=== PATIENT | female | born 1985 | race Caucasian/White ===

== ENCOUNTER 2023-10-01 14:41 | Emergency (ER) | payer MEDICARE, SELFPAY ==
--- NOTE | ~2023-10-01 | CT_ITS ---
EXAMINATION: CT lumbar spine wo con DATE: 10/01/2023 17:28 INDICATION: lumbar pain . TECHNIQUE: Computed tomography (CT) of the lumbar spine was performed without intravenous contrast. A utomated exposure control and iterative reconstruction technique were employed. The dose-length produ ct was 1226.01 mGy-cm. COMPARISON: None. FINDINGS: Mild lumbar scoliosis. 5 nonrib-bearing lumbar-type vertebral bodies. Pedicles intact. Norm al vertebral body alignment. Vertebral body heights preserved. Mild disc space narrowing at L3-4. Mod erate disc space narrowing with a diffuse disc bulge and broad-based central 6 mm protrusion at L4-5. Moderate disc space narrowing at L5-S1 with a moderate diffuse bulge. Unfused posterior L5 arch. Mil d lower lumbar facet hypertrophy. Status post cholecystectomy. Mild atherosclerotic calcifications. P unctate nonobstructing left inferior pole calcification. Incidental note of mild anterior wedge defor mity at T11 and T12. IMPRESSION: Mild anterior wedge deformity at T11 and T12, presumably chronic/physiologic, unless accompanied by a cute pain/tenderness. Multilevel moderate degenerative disc disease. Multilevel mild facet arthropathy. No severe central canal or neural foraminal narrowing. Reviewed, dictated and finalized at location K. GE MASTER COORDINATOR IMPRESSION: Mild anterior wedge deformity at T11 and T12, presumably chronic/physiologic, u nless accompanied by acute pain/tenderness. Multilevel moderate degenerative disc disease. Multilevel mild facet arthropathy. No severe central canal or neural foraminal narrowing.
[2023-10-01 14:43] VITALS: BP 149/83; PULSE 94; RESP 18; TEMP 36.1; O2SAT 100
--- NOTE | 2023-10-01 16:11 | ED.GENADULT ---
HPI - General Adult General Chief complaint: Back Pain/Injury <Dari Dickson December, GARNETT FEEDER - Last Filed: 10/01/23 16:18> Stated complaint: back problems- lose control bladder <Dari Dickson December, GARNETT FEEDER - Last Filed: 10/01/23 16:18> Time Seen by Provider: 10/01/23 16:12 <Dari Dickson December, GARNETT FEEDER - Last Filed: 10/01/23 16:18> Focused HPI: Vera Vitale is a 38 y/o female with PMHx of 5 herniated discs to the lumbar spine, she states that for several weeks she states that her right leg will go numb/ or to asleep while sitting and laying and she will have to drag her leg to ambulate and then it will slowly return to function. She reports that last night she had two episodes of feeling a rubber band rupture in her lower back with burning increased pain and she also felt like she urinated on her self last night. She reports her lower back pain has been getting worse since last night. GENERAL: Well-appearing, well-nourished, and in no acute distress. HEAD: Normocephalic, atraumatic. CHEST: Clear to auscultation. ?No respiratory distress. HEART: Regular rate and rhythm.? NEURO: ?Alert and oriented x3. Patient screened in triage and initial orders placed.? ?Additional care and disposition to be based upon?diagnostic testing and treatment. <Dari Dickson December, GARNETT FEEDER - Last Filed: 10/01/23 16:18> History of Present Illness HPI narrative: 38-year-old female with chronic back pain and known herniated disc in her lumbar spine reports for evaluation for acute on chronic lower back pain. She has been treating her chronic pain with tramadol and Flexeril. States she ran of her tramadol and has only been taking Flexeril and Tylenol with some improvement. States last night, she felt a ?popping rubber band? sensation in her low back. States she woke up this morning with soaked underwear and is concerned that she had urinary incontinence. She states her low pain starts in her low back and radiates down her right thigh and wraps medially into her lower leg into the bottom of her foot. She denies recent procedures on her low back, IV drug use, fever, dysuria or hematuria. States she has urinated today without issues. Denies bowel incontinence or saddle anesthesia. <Juanita Austin PA-C - Last Filed: 10/01/23 21:04> Related Data Allergies/adverse reactions: Allergies Allergy/AdvReac Type Severity Reaction Status Date / Time No Known Allergies Allergy Verified 10/01/23 19:07 <Dari Eugene APRN - Last Filed: 10/01/23 16:18> Review of Systems Review of Systems: CONSTITUTIONAL: Denies fever, chills, or sweats. EYES: Denies visual changes, redness, or discharge. ENT: Denies rhinorrhea, congestion, sore throat, or otalgia. CARDIOVASCULAR: Denies chest pain, palpitations, or edema. RESPIRATORY: Denies cough or dyspnea. GASTROINTESTINAL: Denies abdominal pain, nausea, vomiting, or diarrhea. GENITOURINARY: Denies dysuria or hematuria. SKIN: Denies rash or itching. MUSCULOSKELETAL: See HPI NEUROLOGIC: Denies headache, numbness, or weakness. PSYCHIATRIC: Denies anxiety or depression. <Juanita Austin PA-C - Last Filed: 10/01/23 21:04> Exam Narrative: GENERAL: Well-appearing, well-nourished, and in no acute distress. HEAD: Normocephalic, atraumatic. EYES: PERRLA and EOMI. ENT: Nares clear, no rhinorrhea or epistaxis. Mucous membranes moist. NECK: Supple. CHEST: Clear to auscultation. No respiratory distress. HEART: Regular rate and rhythm. No murmur heard. Normal peripheral pulses. ABDOMEN: Soft, nontender, nondistended, normal active bowel sounds. Rectal tone intact. BACK: Midline lumbar spinous tenderness and right paraspinous lumbar tenderness. No overlying skin changes, step-offs or deformities, edema or erythema. No tenderness to glute. No saddle anesthesia. Sensation intact throughout both legs. Positive right seated straight leg sign. Hip flexion, knee extension and flexion, dorsiflexion and plantar flexion, EHL strength bilateral
[2023-10-01 16:57] LABS: Basophils Percent Auto 0.5 % (0.2-1.2); Eosinophils Absolute Auto 0.1 K/mm3 (0-0.3); Hematocrit 41.8 % (37.0-47.0); Hemoglobin 13.2 g/dL (12.0-15.0); Immature Granulocyte Absolute 0.02 K/mm3 (0.00-0.031); Immature Granulocyte Percent A 0.3 % (0-0.5); Mean Corpuscular HGB Conc 31.6 g/dl (32-36); Mean Corpuscular Hemoglobin 23.5 pg (26-34); Mean Corpuscular Volume 74.5 fl (80-100); Mean Platelet Volume 9.1 fl (7.4-10.4); Monocytes Absolute Auto 0.4 K/mm3 (0.1-0.6); Monocytes Percent Auto 5.3 % (2.6-8.5); Neutrophils Absolute Auto 4.7 K/mm3 (1.3-6.7); Neutrophils Percent Auto 58.9 % (45.5-73.1); Platelet Count Result 360 k/mm3 (150-375); Red Blood Count 5.61 M/mm3 (4.2-5.4); Red Cell Distribution Width 17.2 % (11.5-14.5); White Blood Count 7.9 K/mm3 (4.5-10.0)
[2023-10-01 17:12] LABS: Alanine Aminotransferase 57 U/L (6-35); Albumin Level 4.6 g/dL (3.5-5.1); Alkaline Phosphatase 87 U/L (38-126); Anion Gap 6 mmol/L (8-16); Aspartate Amino Transferase 58 U/L (14-36); Bilirubin,Total 0.5 mg/dL (0.2-1.3); Blood Urea Nitrogen 13 mg/dL (7-17); CRP < 0.5 mg/dL (<1.0); Calcium 10.2 mg/dL (8.4-10.2); Carbon Dioxide 28 mmol/L (22-30); Chloride 106 mmol/L (98-107); Estimated CRCL calculation 111 ml/min; Estimated Glomerular Filt Rate > 60; Glucose 88 mg/dL (65-110); Potassium 3.8 mmol/L (3.4-5.0); Sodium 140 mmol/L (137-145)
[2023-10-01 17:13] LABS: Appearance Urine Clear (Clear); Bilirubin Urine Negative (Negative); Blood Urine Negative (Negative); Color Urine Yellow (Yellow); Glucose Urine UA Negative (Negative); Ketones Urine Negative (Negative); Leukocyte Esterase Ur Negative LEU/UL (Negative); Nitrate Urine Negative (Negative); Protein Urine Negative (Negative); Specific Grav Ur 1.016 (1.001-1.035); Urobilinogen Urine 0.2 mg/dL (<2.0)
[2023-10-01 17:19] LABS: Add Urine Microscopic? NO
[2023-10-01 17:21] LABS: Lactic Acid Reflex 0.6 mmol/L (0.7-2.0)
[2023-10-01 17:23] LABS: Anisocytosis 2+ (NORMAL); Microcytosis 1+ (NORMAL); Platelet Estimate Adequate (Adequate); Schistocytes None Seen (NORMAL)
[2023-10-01 17:24] LABS: Hypochromasia 1+ (NORMAL)
[2023-10-01] MEDS: HYDROcodone/acetaminophen (*CRX) 5-325 MG TABLET 1 TAB PO (18:55)
[2023-10-01] MEDS: CYCLOBENZAPRINE HCL 10 MG TABLET PO (18:55)
[2023-10-01] MEDS: dexAMETHasone SOD PHOS INJ 10 MG/ML 1 ML VIAL IM (18:56)
[2023-10-01 19:05] VITALS: BP 150/91; PULSE 80; RESP 18; O2SAT 98
--- NOTE | 2023-10-01 19:41 | PC.NURSE ---
LORRIE Grant VORB 30mg toradol IVP instead of IM.
[2023-10-01] MEDS: KETOROLAC 30 MG/ML VIAL (*BKC) IV PUSH (19:42)
[2023-10-01 20:37] VITALS: BP 148/81; PULSE 81; RESP 18; O2SAT 98
== END 2023-10-01 20:39 | disposition home or self-care (01) ==
PROVIDERS: Emergency Medicine; Nurse Practitioner Family; Emergency Provider Physician Assistant
DX: M54.16 Radiculopathy, lumbar region (principal); R74.01 Elevation of levels of liver transaminase levels
CPT/HCPCS: 36415; 72131; 80053; 81003; 81025; 83605; 85025; 86140; 96372; 96374; 99284; A9270; J1100; J1885

== ENCOUNTER 2023-10-12 06:59 | Outpatient (CLI) | payer MEDICARE, SELFPAY ==
--- NOTE | ~2023-10-12 | MR_ITS ---
MRI of the lumbar spine Clinical History: Injury Technique: Axial T2-weighted images, and sagittal T1-weighted, T2-weighted, and T2 fat-sat images wer e acquired. Findings: There is no fracture or subluxation of the lumbar spine. Vertebral bodies maintain normal h eight and alignment. No suspicious bone marrow signal abnormality seen. At L1-L2, there is no disc bulge or herniation. No spinal canal stenosis or neural foraminal narrowin g. At L2-L3, there is no disc bulge or herniation. There is minimal facet joint hypertrophy. No spinal c anal stenosis or neural foraminal narrowing. At L3-L4, there is mild disc bulge with mild facet arthropathy. No central canal stenosis or neural f oraminal narrowing. At L4-L5, there is disc bulge and minimal facet arthropathy. No central canal stenosis. There is mode rate right neural foraminal narrowing. Left neural foramen preserved. At L5-S1, there is disc bulge with small annular fissure. No spinal canal stenosis. There is mild to moderate bilateral neural foraminal narrowing. Paravertebral soft tissues are unremarkable. Impression: Mild degenerative spondylosis of the lower lumbar spine, as detailed above. Reviewed, dictated and finalized at location . ET SPECIALIST Impression: Mild degenerative spondylosis of the lower lumbar spine, as detailed above.
--- NOTE | ~2023-10-12 | XR_ITS ---
EXAMINATION: XR lumbar spine min 4V DATE: 10/12/2023 07:27 INDICATION: Unspecified injury of unspecified level of lumbar spine. TECHNIQUE: 5 views of lumbar spine including standing views and flexion and extension views were obta ined. COMPARISON: Lumbar spine MRI 10/12/2023 FINDINGS: There is 11 degrees levoscoliosis of thoracolumbar spine. The spine is hypomobile with flex ion and extension. There is mild chronic anterior wedging of T11-L1 vertebral bodies. There is mildly decreased disc height at L4-L5 and L5-S1. There is multilevel facet joint osteoarthritis, moderate i n lower lumbar spine. IMPRESSION: 1. Mild lumbar spondylosis. 2. Thoracolumbar dextroscoliosis. Reviewed, dictated and finalized at location A. OR CLINICAL DATA COORDINATOR
== END 2023-10-12 07:00 ==
PROVIDERS: PCP Neurological Surgery; Visit Provider Neurological Surgery
DX: S34.109A Unspecified injury to unspecified level of lumbar spinal cord, initial encounter (principal); X58.XXXA Exposure to other specified factors, initial encounter; M47.896 Other spondylosis, lumbar region
CPT/HCPCS: 72110; 72148

== ENCOUNTER 2023-11-08 08:24 | Outpatient (CLI) | payer MEDICARE, SELFPAY ==
--- NOTE | 2023-11-08 09:13 | ECHO_ITS ---
Patient Info Name: Vera Vitale Age: 38 years : 1985 Gender: Female Ht: 66 in Wt: 225 lbs BSA: 2.22 m2 HR: 80 bpm BP: 162 / 111 mmHg Heart Rhythm: Sinus Rhythm Technical Quality: Good Exam Date: 11/08/2023 9:16 AM Exam Location: Echo Lab Patient Status: Outpatient Admit Date: 11/08/2023 Staff Ordering Physician: Ira Metz NP Sweeping Compound Blender: Aim Diana RDCS Attending Provider: Ira Metz NP Exam Type: CA echo doppler color flow Study Info Indications R01.1 - Cardiac murmur, unspecified Complete two-dimensional, color flow and Doppler transthoracic echocardiogram is performed. Summary 1. Complete two-dimensional, color flow and Doppler transthoracic echocardiogram is performed. 2. Left ventricular chamber dimension is normal. 3. Left ventricular systolic function is normal, estimated at 65-70%. 4. The left ventricular diastolic function is normal. 5. Right ventricular systolic function is normal. 6. No significant valvular disease. Left Ventricle Left ventricular chamber dimension is normal. Left ventricular systolic function is normal, estimated at 65-70%. There is no increased left ventricular wall thickness. The left ventricular diastolic function is normal. Right Ventricle Right ventricular chamber dimension is normal. Right ventricular systolic function is normal. Left Atria Left atrial chamber dimension is normal. Right Atria Right atrial chamber dimension is normal. Atrial Septum Intact interatrial septum visualized by color flow imaging. Aortic Valve The aortic valve is probable trileaflet. There is no aortic valve stenosis. There is no aortic valve regurgitation. There is mild aortic valve calcification. Pulmonic Valve The pulmonic valve is not well visualized. Mitral Valve There is trace mitral valve regurgitation. The mitral valve annulus is mildly calcified. Tricuspid Valve There is trace tricuspid valve regurgitation. Pericardium/Pleural There is no pericardial effusion. Inferior Vena Cava Normal inferior vena cava with >50% collapse upon inspiration consistent with normal right atrial pressure, 3 mmHg. Aorta The aortic root size at the sinus of Valsalva is normal. Left Ventricular Outflow Tract Name Value Normal LVOT 2D LVOT Diameter 1.9 cm LVOT Doppler LVOT Peak Gradient 7 mmHg LVOT Mean Gradient 3 mmHg LVOT VTI 22 cm LVOT VTI/AV VTI Ratio 0.6 LVOT Stroke Volume 63 ml LVOT CO 4.3 l/min LVOT CI 1.9 l/min/m2 Pulmonic Valve Name Value Normal RVOT Doppler RVOT Peak Gradient 3 mmHg PV Doppler PV Peak Gradient 5 mmHg Mitral Valve
--- NOTE | 2023-11-08 09:16 | ECG_ITS ---
Measurements Intervals [place] Rate: 73 P: 48 OR: 148 QRS: 51 QRSD: 86 T: 42 QT: 381 QTc: 422 Interpretive Statements SINUS RHYTHM NORMAL ECG NO PREVIOUS ECG AVAILABLE FOR COMPARISON Electronically Signed On 11-08-2023 10:12:08 CDT by Beny Cope D.O.
== END 2023-11-08 08:25 | disposition home or self-care (01) ==
LOC: ANHCARD 08:29
PROVIDERS: PCP Nurse Practitioner Family; Visit Provider Nurse Practitioner Family
DX: R01.1 Cardiac murmur, unspecified (principal); R07.9 Chest pain, unspecified
CPT/HCPCS: 93005; 93306

== ENCOUNTER 2023-11-14 07:42 | Outpatient (CLI) | payer MEDICARE, SELFPAY ==
--- NOTE | ~2023-11-14 | US_ITS ---
US right upper quadrant DATE: 11/14/2023 08:32 INDICATION: Right upper quadrant abdominal pain. Elevated liver function tests. TECHNIQUE: Real-time imaging of right upper quadrant COMPARISON: None FINDINGS: The gallbladder is been surgically removed. No hepatic or pancreatic space-occupying mass lesion. Normal hepatopedal portal venous flow direction . The common bile duct measures 4 mm, normal. IMPRESSION: Status post cholecystectomy; otherwise unremarkable examination Reviewed, dictated and finalized at Location A. Reviewed, dictated and finalized at location B.
== END 2023-11-14 07:43 ==
LOC: MICIMG 07:43
PROVIDERS: PCP Nurse Practitioner Family; Visit Provider Nurse Practitioner Family
DX: R74.01 Elevation of levels of liver transaminase levels (principal); Z90.49 Acquired absence of other specified parts of digestive tract
CPT/HCPCS: 76705

== ENCOUNTER 2023-12-04 11:17 | Outpatient (CLI) | payer MEDICARE, SELFPAY ==
[2023-12-04 11:38] LABS: Basophils Percent Auto 0.6 % (0.2-1.2); Eosinophils Absolute Auto 0.1 K/mm3 (0-0.3); Eosinophils Percent Auto 1.4 % (0-4.4); Hematocrit 43.5 % (37.0-47.0); Hemoglobin 13.9 g/dL (12.0-15.0); Immature Granulocyte Absolute 0.02 K/mm3 (0.00-0.031); Immature Granulocyte Percent A 0.3 % (0-0.5); Lymphocytes Absolute Auto 2.31 K/mm3 (0.9-3.2); Mean Corpuscular Hemoglobin 24.2 pg (26-34); Mean Corpuscular Volume 75.8 fl (80-100); Mean Platelet Volume 8.6 fl (7.4-10.4); Monocytes Absolute Auto 0.4 K/mm3 (0.1-0.6); Monocytes Percent Auto 5.6 % (2.6-8.5); Neutrophils Absolute Auto 3.8 K/mm3 (1.3-6.7); Neutrophils Percent Auto 57.1 % (45.5-73.1); Platelet Count Result 344 k/mm3 (150-375); Red Blood Count 5.74 M/mm3 (4.2-5.4); Red Cell Distribution Width 15.9 % (11.5-14.5); White Blood Count 6.6 K/mm3 (4.5-10.0)
[2023-12-04 17:03] LABS: Alanine Aminotransferase 38 U/L (6-35); Albumin Level 4.9 g/dL (3.5-5.1); Alkaline Phosphatase 109 U/L (38-126); Anion Gap 10 mmol/L (4-12); Aspartate Amino Transferase 41 U/L (14-36); Bilirubin,Total 0.5 mg/dL (0.2-1.3); Blood Urea Nitrogen 10 mg/dL (7-17); CRP < 0.5 mg/dL (<1.0); Calcium 9.8 mg/dL (8.4-10.2); Carbon Dioxide 24 mmol/L (22-30); Chloride 106 mmol/L (98-107); Estimated Glomerular Filt Rate > 60; Glucose 89 mg/dL (65-110); Lactate Dehydrogenase 174 U/L (120-246); Potassium 3.7 mmol/L (3.4-5.0); Sodium 140 mmol/L (137-145)
[2023-12-04 17:29] LABS: Ferritin 5.73 ng/mL (6.24-137)
[2023-12-04 18:11] LABS: Folic Acid 4.6 ng/mL (2.76->20)
[2023-12-08 14:34] LABS: Soluble Transferrin Receptor 2.63 mg/L (0.76-1.76)
== END 2023-12-04 11:18 | disposition home or self-care (01) ==
LOC: ANHLAB 11:22
PROVIDERS: PCP Nurse Practitioner Family; Visit Provider Internal Medicine Hematology & Oncology
DX: E61.1 Iron deficiency (principal); C82.90 Follicular lymphoma, unspecified, unspecified site
CPT/HCPCS: 36415; 80053; 82607; 82728; 82746; 83615; 84238; 85025; 86140; 88184; 88185

== ENCOUNTER 2023-12-06 08:13 | Outpatient (CLI) | payer MEDICARE, SELFPAY ==
--- NOTE | ~2023-12-06 | CT_ITS ---
Pre and postcontrast Head CT History: Congenital cerebral cysts, colloid cyst Technique: Axial imaging of the brain was performed prior to and following intravenous administratio n of 100 cc of Omnipaque 350 contrast material. Dose reduction technique was used on this scan by uti lizing automated exposure control and iterative reconstruction technique. The dose-length product (DL P) was 1199.14 mGy-cm. Findings: There is no evidence of intracranial hemorrhage, mass lesion, or acute infarct. Brain par enchyma appears normal. The ventricles and subarachnoid spaces are normal in size. High right fronta l craniotomy present just right of midline, with probable subjacent postoperative dural thickening. The visualized paranasal sinuses and mastoid air cells are clear. No abnormal postcontrast enhancement identified. Impression: No intracranial mass/cyst identified. High right frontal craniotomy with subjacent postoperative dural thickening. Reviewed, dictated and finalized at [facility]. Impression: No intracranial mass/cyst identified. High right frontal craniotomy with subjacent postoperative dural thickening.
== END 2023-12-06 08:14 ==
LOC: MICIMG 08:14
PROVIDERS: PCP Nurse Practitioner Family; Visit Provider Nurse Practitioner Family
DX: Q04.6 Congenital cerebral cysts (principal); Z98.890 Other specified postprocedural states
CPT/HCPCS: 70470; Q9967

== ENCOUNTER 2023-12-13 07:48 | Outpatient (CLI) | payer MEDICARE, SELFPAY ==
--- NOTE | ~2023-12-13 | PE_ITS ---
EXAMINATION: PET skull to mid thigh DATE: 12/13/2023 09:39 INDICATION: Follicular lymphoma. TECHNIQUE: Blood glucose level was 109 mg/dL. 9.9 mCi of 18-fluorodeoxyglucose (18-FDG) was administe red i.v. Low dose computed tomography (CT) images were acquired from the base of the brain to the pro ximal thighs for attenuation correction and anatomic localization. Automated exposure control was emp loyed. Dose-length product (DLP) was 1113 mGy-cm. Positron emission tomography (PET) images were acqu ired in the same distribution. COMPARISON: None FINDINGS: Head/neck: There are no pathologically enlarged lymph nodes. Chest: There is a pneumatocele in left upper lobe. No pleural effusion. The heart size is normal. No pericardial effusion. There is thymic hyperplasia in the anterior segment. Abdomen/pelvis/proximal thighs: The liver is normal. The spleen is normal in size. The pancreas, adre nal glands, and kidneys are normal. There is diverticulosis of the colon without evidence of divertic ulitis. There are no dilated loops of bowel. The appendix is not visualized. There are no pathologica lly enlarged lymph nodes. There is no free intraperitoneal fluid. There is no osseous malignancy. IMPRESSION: 1. No evidence of lymphoma. Reviewed, dictated and finalized at location E. IMPRESSION: 1. No evidence of lymphoma.
[2023-12-13 08:12] LABS: Glucose Point of Care 109 mg/dl (65-105)
== END 2023-12-13 07:49 | disposition home or self-care (01) ==
PROVIDERS: PCP Nurse Practitioner Family; Visit Provider Internal Medicine Hematology & Oncology
DX: C85.99 Non-Hodgkin lymphoma, unspecified, extranodal and solid organ sites (principal)
CPT/HCPCS: 78815; A9552

== ENCOUNTER 2023-12-30 20:26 | Emergency (ER) | payer MEDICARE, SELFPAY ==
--- NOTE | ~2023-12-30 | XR_ITS ---
EXAM: XR hand RT min 3V DATE: 12/30/2023 20:55 HISTORY: right 2nd MCP joint pain . COMPARISON: None available. FINDINGS: Normal mineralization. No fracture or dislocation. No lytic or blastic lesion. Joint space s are maintained. No erosion or periosteal change. Soft tissues within normal limits. IMPRESSION: No acute osseous finding in the right hand. Reviewed, dictated and finalized at location K.
[2023-12-30 20:27] VITALS: BP 154/82; PULSE 79; RESP 16; TEMP 36.4; O2SAT 100
[2023-12-30 20:37] VITALS: BP 165/93; PULSE 74; RESP 16; O2SAT 100
[2023-12-30 20:38] VITALS: O2SAT 100
[2023-12-30 21:07] LABS: Basophils Percent Auto 0.5 % (0.2-1.2); Eosinophils Absolute Auto 0.1 K/mm3 (0-0.3); Eosinophils Percent Auto 1.6 % (0-4.4); Hematocrit 38.7 % (37.0-47.0); Hemoglobin 12.4 g/dL (12.0-15.0); Immature Granulocyte Absolute 0.02 K/mm3 (0.00-0.031); Immature Granulocyte Percent A 0.2 % (0-0.5); Lymphocytes Absolute Auto 3.19 K/mm3 (0.9-3.2); Mean Corpuscular Hemoglobin 23.8 pg (26-34); Mean Corpuscular Volume 74.3 fl (80-100); Mean Platelet Volume 8.7 fl (7.4-10.4); Monocytes Absolute Auto 0.6 K/mm3 (0.1-0.6); Monocytes Percent Auto 7.2 % (2.6-8.5); Neutrophils Absolute Auto 4.6 K/mm3 (1.3-6.7); Neutrophils Percent Auto 53.5 % (45.5-73.1); Platelet Count Result 341 k/mm3 (150-375); Red Blood Count 5.21 M/mm3 (4.2-5.4); Red Cell Distribution Width 16.2 % (11.5-14.5); White Blood Count 8.6 K/mm3 (4.5-10.0)
--- NOTE | 2023-12-30 21:12 | ED.RECABL ---
HPI - Recheck/Abnormal Lab/Rx General Chief Complaint: Recheck/Abnormal Lab/Rx Stated Complaint: blood clot in hand Time Seen by Provider: 12/30/23 20:41 Source: patient Mode of arrival: ambulatory Limitations: no limitations History of Present Illness HPI narrative: This is a 38-year-old female that presents to the emergency department for right hand pain. Ongoing since yesterday. No known injury or trauma. Reports an aching pain to the right 2nd MCP joint. Noted a bruise in the area and does not remember any injuries. Reports history of elevated red blood cells. She was concerned she may have a blood clot in her arm which prompted her to be seen. Denies fever, erythema or edema. Related Data Home Medications Medication Instructions Recorded Confirmed ferrous sulfate 325 mg (65 mg 325 mg PO BID 10/30/23 10/30/23 iron) tablet ondansetron HCl 4 mg tablet 4 mg PO DAILY PRN 10/30/23 10/30/23 gabapentin 300 mg capsule 300 mg PO QHS 11/15/23 promethazine 25 mg tablet mg 12/30/23 Allergies Allergy/AdvReac Type Severity Reaction Status Date / Time No Known Allergies Allergy Verified 12/30/23 20:29 Review of Systems Review of Systems: CONSTITUTIONAL: Denies fever MUSCULOSKELETAL: Reports joint pain, and myalgia. NEUROLOGIC: Denies numbness, or weakness. All systems reviewed & are unremarkable except as noted in HPI and below PMFSH Past Medical History Medical History (Updated 12/30/23 @ 22:30 by Ana Crockett PA-C) Abnormal positron emission tomography (PET) scan Abnormal stools Allergies Anemia Arthritis Colloid cyst of third ventricle hx of Elevated liver enzymes Encounter to establish care Headache Low back pain Murmur Osteoporosis RUQ pain Spina bifida occulta Surgical History Surgical History History of craniotomy Family History Family History Father Diabetes mellitus Hypertension Heart disease Thyroid disorder Mother Hypertension Grandparent Diabetes mellitus Leukemia Grandparent Heart disease Malignant neoplasm of prostate Social History Social History Smoking packs per day: 1 Smoking cigarettes per day: 20.0 Smoking status: Current every day smoker Tobacco type: cigarettes Alcohol intake: current Drinks per week: 1 Alcohol use details: 1 cocktail per week, occasionally Substance use: never Substance use type: does not use Do You Feel Safe in your Home?: Yes Lack of Transportation: No Lack of Food: Never True Current Housing: I Have Housing Concerned About Future Housing: No Difficulty Paying Gas/Electric Bills: No Difficulty Paying for Meds: No Currently Unemployed: No Education: High School Diploma/GED Difficulty w/ Childcare or Family Care: No Exam Narrative: GENERAL: Well-appearing, well-nourished, and in no acute distress. HEAD: Normocephalic, atraumatic. EYES: EOMI. EXTREMITIES: Normal range of motion. No edema or erythema. Normal radial pulse. Normal sensation SKIN: Warm, dry, no rash. NEURO: No focal deficits. Alert and oriented x3. PSYCH: Normal mood and affect Course Course Emergency Course: Patient updated on her workup and agrees with plan of care Vital Signs Vital signs: Vital Signs Temperature 97.6 F 12/30/23 20:27 Pulse Rate 79 12/30/23 20:27 Respiratory Rate 16 12/30/23 20:27 Blood Pressure 154/82 H 12/30/23 20:27 Pulse Oximetry 100 12/30/23 20:27 Oxygen Delivery Room Air 12/30/23 20:27 Temperature 97.6 F 12/30/23 20:27 Pulse Rate 74 12/30/23 20:37 Respiratory Rate 16 12/30/23 20:37 Blood Pressure 165/93 H 12/30/23 20:37 Pulse Oximetry 100 12/30/23 20:38 Oxygen Delivery Room Air 12/30/23 20:27 MDM - Recheck/Abnormal Lab/Rx MDM Narrative [facility]
[2023-12-30 21:15] LABS: Ovalocytes 1+; Platelet Estimate Adequate (Adequate); Schistocytes None Seen
[2023-12-30 21:16] LABS: Anion Gap 7 mmol/L (4-12); Blood Urea Nitrogen 12 mg/dL (7-17); Calcium 9.1 mg/dL (8.4-10.2); Carbon Dioxide 27 mmol/L (22-30); Chloride 105 mmol/L (98-107); Estimated CRCL calculation 90 ml/min; Estimated Glomerular Filt Rate > 60; Glucose 98 mg/dL (65-110); Potassium 3.6 mmol/L (3.4-5.0); Sodium 139 mmol/L (137-145)
[2023-12-30 21:18] LABS: D Dimer 0.59 ug/mL (<0.48)
== END 2023-12-30 23:02 | disposition home or self-care (01) ==
PROVIDERS: Emergency Provider Physician Assistant
DX: M79.641 Pain in right hand (principal); F17.210 Nicotine dependence, cigarettes, uncomplicated; D64.9 Anemia, unspecified; M19.90 Unspecified osteoarthritis, unspecified site
CPT/HCPCS: 36415; 73130; 80048; 85025; 85380; 99283

== ENCOUNTER 2023-12-31 07:08 | Outpatient (CLI) | payer MEDICARE, SELFPAY ==
--- NOTE | ~2023-12-31 | US_ITS ---
EXAMINATION: US venous doppler UE RT DATE: 12/31/2023 07:48 INDICATION: Right upper limb pain. TECHNIQUE: Grayscale ultrasound images without and with compression and Doppler ultrasound images of the right upper extremity veins were obtained. COMPARISON: None. FINDINGS: The visualized portions of the right internal jugular vein, subclavian vein, axillary vein, brachial veins, basilic vein, cephalic vein, radial vein, and ulnar vein are patent. IMPRESSION: 1. No deep venous thrombosis. Reviewed, dictated and finalized at location A.
== END 2023-12-31 07:09 | disposition home or self-care (01) ==
PROVIDERS: Visit Provider Physician Assistant
DX: M79.621 Pain in right upper arm (principal)
CPT/HCPCS: 93971

== ENCOUNTER 2024-01-29 08:01 | Outpatient (CLI) | payer MEDICARE, SELFPAY ==
--- NOTE | ~2024-01-29 | US_ITS ---
EXAMINATION: US soft tissue head and neck DATE: 01/29/2024 08:21 INDICATION: Cervical lymphadenopathy. Right neck lumps. TECHNIQUE: Multiple grayscale and Doppler ultrasound images of the head and neck were obtained. COMPARISON: PET/CT 12/13/2023 FINDINGS: There are normal lymph nodes in the right neck and right axilla in the patient's areas of c oncern. IMPRESSION: 1. Normal lymph nodes in the right neck and right axilla in the patient's areas of concern. Reviewed, dictated and finalized at location E.
--- NOTE | ~2024-01-29 | US_ITS ---
Right axillary ultrasound (Doppler ultrasound interrogation techniques used as needed for this exam.) Ordering provider: Ubaldo Cardenas MD History: . LYMPHADENOPATHY, AXILLARY . Comparison: December 31, 2023 FINDINGS/impression: 2 lymph nodes are seen with the largest measures 1.7 x 0.8 x 1 cm. No other definite abnormal. Reviewed, dictated and finalized at location A.
== END 2024-01-29 08:02 ==
PROVIDERS: PCP Nurse Practitioner Family; Visit Provider Internal Medicine Hematology & Oncology
DX: R59.0 Localized enlarged lymph nodes (principal)
CPT/HCPCS: 76536; 76882

== ENCOUNTER 2024-02-20 08:11 | Outpatient (NON) | payer MEDICARE, SELFPAY | END 2024-02-20 08:12 | disposition home or self-care (01) | LOC: ANHLAB 02-21 08:14 | PROVIDERS: PCP Nurse Practitioner Family; Visit Provider Internal Medicine Gastroenterology | DX: D64.9 Anemia, unspecified (principal) | CPT/HCPCS: 88305 ==

== ENCOUNTER 2024-02-20 08:45 | Day surgery (SDC) | payer MEDICARE, SELFPAY ==
[2024-02-04 10:15] VITALS: BMI 36.8
--- NOTE | 2024-02-19 13:50 | WPDANESEPPF ---
Anes - Initial Pre Proc Eval Procedure: Operation Date: 02/20/24 11:30 Proposed Procedures p Esophagogastroduodenoscopy - Arturo Daniels MD s Diagnostic Colonoscopy - Arturo Daniels MD Date/Time: 02/19/24 13:50 Surgeon: Arturo Daniels MD Pre Op Diagnosis: Anemia Patient Data Age: 38 Gender: F Height: 1.68 m Weight: 104 kg Allergies Allergy/AdvReac Type Severity Reaction Status Date / Time No Known Allergies Allergy Verified 02/20/24 10:13 Home Medications Medication Instructions Recorded Confirmed Type ferrous sulfate 325 mg (65 mg 325 mg PO BID 10/30/23 02/20/24 History iron) tablet gabapentin 300 mg capsule 300 mg PO QHS 11/15/23 02/20/24 History promethazine 25 mg tablet 25 mg PO DAILY PRN Nausea 12/30/23 02/20/24 History Patient hx anesthesia problems: none Family hx anesthesia problems: none Results Review: All pre-operative results and documents have been reviewed as part of the pre-operative evaluation. [facility] Past Medical History Medical History (Updated 02/20/24 @ 11:27 by Arnel Ibrahim DO) Abnormal positron emission tomography (PET) scan Abnormal stools Allergies Anemia Arthritis Colloid cyst of third ventricle hx of Elevated liver enzymes Elevated rheumatoid factor Encounter to establish care Headache History of brain tumor Low back pain Murmur Osteoporosis RUQ pain Spina bifida occulta Tobacco abuse Surgical History Surgical History History of craniotomy Family History Family History Father Diabetes mellitus Hypertension Heart disease Thyroid disorder Mother Hypertension Grandparent Diabetes mellitus Leukemia Grandparent Heart disease Malignant neoplasm of prostate Social History Social History Smoking packs per day: 1 Smoking cigarettes per day: 20.0 Years smoked: 2.5 Smoking pack-years: 2.50 Smoking status: Current every day smoker Tobacco type: cigarettes Alcohol intake: never Substance use: never Substance use type: does not use Do You Feel Safe in your Home?: Yes Lack of Transportation: No Lack of Food: Never True Current Housing: I Have Housing Concerned About Future Housing: No Difficulty Paying Gas/Electric Bills: No Difficulty Paying for Meds: No Currently Unemployed: No Education: High School Diploma/GED Difficulty w/ Childcare or Family Care: No Spiritual care concerns: No Anes - Eval Final PreProcedure Day of Procedure 02/19/24 13:50 Patient weight: obese Heart: regular rate and rhythm Lungs: clear to auscultation Airway: Mallampati scale class III and special considerations poor dentition Neurological: alert and oriented Last oral intake: >/= 8 hours ASA classification: III Emergent: no Anesthetic plan: proceed Anesthesia type and monitoring: general GIVS and standard monitoring Results Review: All pre-operative results and documents have been reviewed as part of the pre-operative evaluation. Informed Consent: The patient's anesthetic plan and its attendant risks and benefits were discussed with the patient/family/POA. Questions were solicited and answers provided to the satisfaction of the patient/family/POA.
[2024-02-20 10:17] VITALS: BP 143/90; PULSE 68; RESP 20; TEMP 36.4; O2SAT 98; BMI 37.0
--- NOTE | 2024-02-20 10:26 | WPDHPUPDATE1 ---
History and Physical Update Update Date/Time: 02/20/24 10:26 History and Physical has been reviewed, including an updated exam of the patient. There are NO changes in the patient's condition. Risks, benefits, and alternatives have been discussed and questions answered. Patient agrees to proceed with procedure.
[2024-02-20] MEDS: LACTATED RINGERS 1,000 ML 150 ML IV CONT (10:33)
[2024-02-20 11:22] VITALS: BP 119/78; PULSE 55; RESP 16; O2SAT 100
[2024-02-20 12:02] VITALS: BP 108/59; PULSE 68; RESP 16; O2SAT 98
[2024-02-20 12:12] VITALS: BP 117/78; PULSE 68; RESP 16; O2SAT 98
--- NOTE | 2024-02-20 15:06 | WPDANESPN ---
Anes - Prog Note Post-Op Date/Time: 02/20/24 15:06 Cardiovascular status: normal Respiratory status: normal Airway patency: baseline Mental status: baseline Post-Op hydration status: normal Vital Signs: Last Vital Signs Temp 36.4 C 02/20/24 10:17 Pulse 68 02/20/24 12:12 Resp 16 02/20/24 12:12 BP 117/78 02/20/24 12:12 Pulse Ox 98 02/20/24 12:12 O2 Del Method Room Air 02/20/24 12:12 Pain Score (VAS): 0 I/O: Intake & Output 02/19/24 02/20/24 02/20/24 23:59 07:59 15:59 Intake Total 650 Balance 650 Post-procedural complaints: none Patient Feedback: Patient satisfied with anesthetic care. Other Findings: Patient vital signs back to baseline. Patient denies nausea and vomiting. Patient's pain under control. Patient OK for discharge.
== END 2024-02-20 12:35 | disposition home or self-care (01) ==
PROVIDERS: PCP Nurse Practitioner Family; Visit Provider Internal Medicine Gastroenterology
PROC: 0DJ08ZZ Inspection of Upper Intestinal Tract, Via Natural or Artificial Opening Endoscopic (ICD-10-PCS; CPT 43235; principal; 2024-02-20 11:30)
PROC: 0DJD8ZZ Inspection of Lower Intestinal Tract, Via Natural or Artificial Opening Endoscopic (ICD-10-PCS; CPT 45378; 2024-02-20 11:30)
DX: D64.9 Anemia, unspecified (principal); R10.84 Generalized abdominal pain; R10.13 Epigastric pain
CPT/HCPCS: 45378; 43239

== ENCOUNTER 2024-03-05 15:21 | Emergency (ER) | payer MEDICARE, SELFPAY ==
--- NOTE | ~2024-03-05 | XR_ITS ---
EXAMINATION: XR chest 2V Exam Date/Time: 03/05/2024 15:40 CDT HISTORY: SOB, LUQ pain Comparison: None. RESULT: Lines, tubes, and devices: None. Lungs and pleura: Clear. Cardiomediastinal silhouette: Normal. Other: No acute osseous or upper abdominal finding. IMPRESSION: No acute cardiopulmonary process. Reviewed, dictated and finalized at location K.
--- NOTE | ~2024-03-05 | XR_ITS ---
EXAM: XR abdomen/kub 1V DATE: 03/05/2024 15:57 HISTORY: LUQ pain . COMPARISON: None available. FINDINGS: Clear lung bases. Paucity of small bowel gas. Normal large bowel gas pattern. Enlarged ivan er. No abnormal abdominal calcification. Cholecystomy clips. IMPRESSION: Hepatomegaly. Paucity small bowel gas limits evaluation for ileus or obstruction. Reviewed, dictated and finalized at location K. IMPRESSION: Hepatomegaly. Paucity small bowel gas limits evaluation for ileus o r obstruction.
[2024-03-05 15:27] VITALS: BP 132/77; PULSE 67; RESP 16; TEMP 36.3; O2SAT 100
--- NOTE | 2024-03-05 15:27 | ED.URI ---
HPI - URI/Sore Throat General Chief Complaint: Shortness of Breath/Dyspnea Stated Complaint: CHEST/UPPER ABD PAIN/SOB Time Seen by Provider: 03/05/24 16:17 Source: patient and RN notes reviewed Mode of arrival: ambulatory Limitations: no limitations History of Present Illness HPI Narrative: 38-year-old female presents with concern for shortness of breath and chest pressure. She reports symptoms started on February 23 3 days after she had a colonoscopy and endoscopy. Reports she has been having issues with anemia and she was told she had an elevated D-dimer. She recently got an iron infusion. She reports symptoms are made worse with exertion, she describes conversational dyspnea. She reports symptoms are worse when she eats food, she gets full fast. She reports she feels like she ?can not get enough oxygen? MD elicited complaint: other Related Data Home Medications Medication Instructions Recorded Confirmed ferrous sulfate 325 mg (65 mg 325 mg PO BID 10/30/23 03/05/24 iron) tablet gabapentin 300 mg capsule 300 mg PO QHS 11/15/23 03/05/24 promethazine 25 mg tablet 25 mg PO DAILY PRN Nausea 12/30/23 03/05/24 Allergies Allergy/AdvReac Type Severity Reaction Status Date / Time No Known Allergies Allergy Verified 03/05/24 15:35 Review of Systems Review of Systems: CONSTITUTIONAL: Denies malaise, chills, sweats, or fever. ENT: Denies rhinorrhea, congestion, sinus pain, otalgia and sore throat. CARDIOVASCULAR: Denies chest pain, palpitations, or edema. RESPIRATORY: Denies cough. Reports dyspnea and left chest pressure. GASTROINTESTINAL: Denies abdominal pain, nausea, vomiting, diarrhea. Reports she gets full fast All systems reviewed & are unremarkable except as noted in HPI and below [facility] Past Medical History Medical History (Updated 03/05/24 @ 16:33 by Frida Herrera NP) Abnormal positron emission tomography (PET) scan Abnormal stools Allergies Anemia Arthritis Colloid cyst of third ventricle hx of Elevated liver enzymes Elevated rheumatoid factor Encounter to establish care Headache History of brain tumor Low back pain Murmur Osteoporosis RUQ pain Spina bifida occulta Tobacco abuse Surgical History Surgical History History of craniotomy Family History Family History Father Diabetes mellitus Hypertension Heart disease Thyroid disorder Mother Hypertension Grandparent Diabetes mellitus Leukemia Grandparent Heart disease Malignant neoplasm of prostate Social History Social History Smoking packs per day: 1 Smoking cigarettes per day: 20.0 Years smoked: 2.5 Smoking pack-years: 2.50 Smoking status: Current every day smoker Tobacco type: cigarettes Alcohol intake: never Substance use: never Substance use type: does not use Do You Feel Safe in your Home?: Yes Lack of Transportation: No Lack of Food: Never True Current Housing: I Have Housing Concerned About Future Housing: No Difficulty Paying Gas/Electric Bills: No Difficulty Paying for Meds: No Currently Unemployed: No Education: High School Diploma/GED Difficulty w/ Childcare or Family Care: No Spiritual care concerns: No Comments At time of signature, agree with nursing past medical, surgical, social and family history. There is no relevant family history pertinent to the presenting complaint Exam Narrative: GENERAL: Well-appearing, well-nourished, and in no acute distress. HEAD: Normocephalic EYES: PERRLA, conjunctivae clear ENT: Nares clear. Mucous membranes moist. NECK: Supple. No lymphadenopathy CHEST: Clear to auscultation, breath sounds equal. No wheezing, rhonchi, rales, or stridor. No respiratory distress, speaks in full sentences. HEART: Regular rate and rhythm. No murmur heard. SKIN: Warm,
--- NOTE | 2024-03-05 15:42 | ECG_ITS ---
Test Date: 2024-03-05 15:42:03 Measurements Intervals [place] Rate: 70 P: 48 MD: 130 QRS: 58 QRSD: 80 T: 49 QT: 367 QTc: 396 Interpretive Statements SINUS RHYTHM POSSIBLE LEFT ATRIAL ENLARGEMENT BASELINE ARTIFACT- I, II, III, AVR, AVL, AVF, V3-V5 BORDERLINE ECG No previous ECG available for comparison Electronically Signed On 03-05-2024 15:56:03 CDT by Beny Cope D.O.
== END 2024-03-05 16:30 | disposition short-term general hospital (02) ==
PROVIDERS: Emergency Provider Nurse Practitioner; PCP Nurse Practitioner Family
DX: R06.02 Shortness of breath (principal); F17.210 Nicotine dependence, cigarettes, uncomplicated; M19.90 Unspecified osteoarthritis, unspecified site; M81.0 Age-related osteoporosis without current pathological fracture; Q76.0 Spina bifida occulta
CPT/HCPCS: 71046; 74018; 93005; 99213; G0463

== ENCOUNTER 2024-03-05 16:51 | Emergency (ER) | payer MEDICARE, SELFPAY ==
--- NOTE | ~2024-03-05 | CT_ITS ---
EXAMINATION: CTA chest PE protocol DATE: 03/05/2024 21:35 INDICATION: CP and ASHISH, recent procedure. +dimer TECHNIQUE: Computed tomography angiography (CTA) of the chest was performed with 100 mL Omnipaque-350 intravenous contrast timed to evaluate the pulmonary arteries. Coronal maximum intensity projection 3D-reconstructions were created by the technologist. The dose-length product (DLP) was 635.44 mGy-cm. Automated exposure control and iterative reconstruction technique were employed. COMPARISON: X-ray chest, same date. FINDINGS: Lung parenchyma and airways: Small air cyst in the left upper lobe. Azygos lobe. Mild scattered scatt ered patchy groundglass opacities, most pronounced in the lower lobes. Pleura: Unremarkable. Thoracic inlet, axillae and chest wall: Unremarkable. Thoracic aorta: No significant dilation. No dissection. Mediastinum: Normal. Heart and pericardium: Normal. Coronary artery calcifications: Absent. Upper abdomen: No significant finding. Bones: No acute osseous finding. Pulmonary arteries: Study quality: Adequate. No pulmonary emboli detected. IMPRESSION: No CT evidence of acute pulmonary embolus. Mild mosaic attenuation, which can be seen with asthma, bronchiolitis obliterans, hypersensitivity pn eumonitis, and chronic thromboembolic disease. Reviewed, dictated and finalized at location K. IMPRESSION: No CT evidence of acute pulmonary embolus. Mild mosaic attenuation, which can be seen with asthma, bronchiolitis obliteran s, hypersensitivity pneumonitis, and chronic thromboembolic disease.
[2024-03-05 16:57] VITALS: BP 148/92; PULSE 70; RESP 20; TEMP 37; O2SAT 98
--- NOTE | 2024-03-05 17:01 | ECG_ITS ---
Test Date: 2024-03-05 17:02:13 Measurements Intervals [place] Rate: 66 P: 54 CT: 130 QRS: 56 QRSD: 77 T: 37 QT: 365 QTc: 384 Interpretive Statements SINUS RHYTHM BASELINE ARTIFACT- I, III, AVL NORMAL ECG Compared to ECG 03/05/2024 15:42:03 No significant changes Electronically Signed On 03-06-2024 06:08:43 CDT by Beny Cope D.O.
[2024-03-05 17:22] LABS: INR 0.9; Prothrombin Time 12.8 Seconds (11.1-14.7)
[2024-03-05 17:23] LABS: Partial Thromboplastin Time 32.4 Seconds (22.3-36.8)
--- NOTE | 2024-03-05 17:25 | ED.CHESTPAIN ---
HPI - Chest Pain General Chief Complaint: Chest Pain <Ana Crockett PA-C - Last Filed: 03/06/24 17:36> Stated Complaint: L chest pressure, SOB - from urgent care <Ana Crockett PA-C - Last Filed: 03/06/24 17:36> Time Seen by Provider: 03/05/24 17:25 <Ana Crockett PA-C - Last Filed: 03/06/24 17:36> Focused HPI: This is a 38-year-old female that presents to the emergency department for chest pain and shortness of breath. Reports this has been ongoing since her recent endoscopies. Sent from urgent care for further evaluation to rule out blood clots. GENERAL: Well-appearing, well-nourished, and in no acute distress. HEAD: Normocephalic, atraumatic. CHEST: Clear to auscultation. ?No respiratory distress. HEART: Regular rate and rhythm.? NEURO: ?Alert and oriented x3. Patient screened in triage and initial orders placed.? ?Additional care and disposition to be based upon?diagnostic testing and treatment. <Ana Crockett PA-C - Last Filed: 03/06/24 17:36> History of Present Illness HPI narrative: This is a 38-year-old female with a past medical history significant for anemia who presents to the ED for evaluation of chest pain and shortness of breath. Patient states she has been having dyspnea and feeling breathless for several weeks ever since her recent endoscopy. She states she had a colonoscopy and upper endoscopy under conscious sedation. She states that she woke up the next morning feeling okay but throughout the next few days started developing chest pain in the epigastrium region in left-sided crushing chest discomfort. She states she feels breathless as not able to catch her breath even when she is not exerting herself. She has no history of DVT or PE. No leg extremity swelling. No nausea, vomiting, headache, vision changes, diarrhea, constipation, urinary complaints. Denies any chance of .she states she was otherwise in her normal state of health. <Wei Saleh MD - Last Filed: 03/06/24 02:07> Related Data Home Medications: Home Medications Medication Instructions Recorded Confirmed ferrous sulfate 325 mg (65 mg 325 mg PO BID 10/30/23 03/05/24 iron) tablet gabapentin 300 mg capsule 300 mg PO QHS 11/15/23 03/05/24 promethazine 25 mg tablet 25 mg PO DAILY PRN Nausea 12/30/23 03/05/24 <Ana Crockett PA-C - Last Filed: 03/06/24 17:36> Allergies/Adverse Reactions: Allergies Allergy/AdvReac Type Severity Reaction Status Date / Time No Known Allergies Allergy Verified 03/05/24 15:35 <Ana Crockett PA-C - Last Filed: 03/06/24 17:36> Review of Systems Review of Systems: As reviewed above in the HPI <Wei Saleh MD - Last Filed: 03/06/24 02:07> [facility] Past Medical History Medical History: Medical History Abnormal positron emission tomography (PET) scan Abnormal stools Allergies Anemia Arthritis Colloid cyst of third ventricle hx of Elevated liver enzymes Elevated rheumatoid factor Encounter to establish care Headache History of brain tumor Low back pain Murmur Osteoporosis RUQ pain Spina bifida occulta Tobacco abuse <Ana Crockett PA-C - Last Filed: 03/06/24 17:36> Surgical History Surgical History: Surgical History History of craniotomy <Ana Crockett PA-C - Last Filed: 03/06/24 17:36> Family History Family History: Family History Father Diabetes mellitus Hypertension Heart disease Thyroid disorder Mother Hypertension Grandparent Diabetes mellitus Leukemia Grandparent Heart disease Malignant neoplasm of prostate <Ana Crockett PA-C - Last Filed: 03/06/24 17:36> Social History Social History: Social History
[2024-03-05 17:26] LABS: Alanine Aminotransferase 25 U/L (6-35); Albumin Level 4.9 g/dL (3.5-5.1); Alkaline Phosphatase 91 U/L (38-126); Anion Gap 12 mmol/L (4-12); Aspartate Amino Transferase 26 U/L (14-36); Bilirubin,Total 0.4 mg/dL (0.2-1.3); Blood Urea Nitrogen 13 mg/dL (7-17); Calcium 10.1 mg/dL (8.4-10.2); Carbon Dioxide 23 mmol/L (22-30); Chloride 103 mmol/L (98-107); Estimated CRCL calculation 114 ml/min; Estimated Glomerular Filt Rate > 60; Glucose 107 mg/dL (65-110); Lipase 213 U/L (23-300); Potassium 3.9 mmol/L (3.4-5.0); Sodium 138 mmol/L (137-145)
[2024-03-05 17:38] LABS: Troponin I < 0.012 ng/mL (0.000-0.034)
[2024-03-05 18:15] VITALS: BP 151/86; PULSE 64; RESP 18; O2SAT 99
[2024-03-05 18:32] LABS: D Dimer 0.67 ug/mL (<0.48)
[2024-03-05 18:43] LABS: Basophils Percent Auto 0.4 % (0.2-1.2); Eosinophils Absolute Auto 0.2 K/mm3 (0-0.3); Eosinophils Percent Auto 1.4 % (0-4.4); Hematocrit 49.1 % (37.0-47.0); Hemoglobin 16.4 g/dL (12.0-15.0); Immature Granulocyte Absolute 0.06 K/mm3 (0.00-0.031); Immature Granulocyte Percent A 0.6 % (0-0.5); Lymphocytes Absolute Auto 3.05 K/mm3 (0.9-3.2); Lymphocytes Percent Auto 28.4 % (18.3-44.2); Mean Corpuscular HGB Conc 33.4 g/dl (32-36); Mean Corpuscular Hemoglobin 27.3 pg (26-34); Mean Corpuscular Volume 81.8 fl (80-100); Mean Platelet Volume 8.8 fl (7.4-10.4); Monocytes Absolute Auto 0.6 K/mm3 (0.1-0.6); Monocytes Percent Auto 5.8 % (2.6-8.5); Neutrophils Absolute Auto 6.8 K/mm3 (1.3-6.7); Neutrophils Percent Auto 63.4 % (45.5-73.1); Platelet Count Result 267 k/mm3 (150-375); Red Cell Distribution Width 22.7 % (11.5-14.5); White Blood Count 10.7 K/mm3 (4.5-10.0)
[2024-03-05 19:13] LABS: Platelet Estimate Adequate (Adequate)
[2024-03-05 19:14] LABS: Anisocytosis 3+; Schistocytes None Seen
[2024-03-05] MEDS: SODIUM CHLORIDE 0.9% IV 1,000 ML 999 ML IV CONT (20:58)
[2024-03-05] MEDS: MAG HYDROX/AL HYDROX/SIMETH 30 ML UDC PO (20:58)
[2024-03-05] MEDS: FAMOTIDINE 20 MG/2 ML VIAL IV PUSH (20:58)
[2024-03-05] MEDS: PANTOPRAZOLE SODIUM IV 40 MG VIAL IV PUSH (20:58)
[2024-03-05 21:34] LABS: Troponin I < 0.012 ng/mL (0.000-0.034)
[2024-03-05 22:00] VITALS: BP 132/72; PULSE 66; RESP 18; O2SAT 97
== END 2024-03-05 22:53 | disposition home or self-care (01) ==
PROVIDERS: Emergency Medicine; Physician Assistant; Emergency Provider Student in an Organized Health Care Education/Training Program; PCP Nurse Practitioner Family
DX: R06.02 Shortness of breath (principal); R07.89 Other chest pain; M19.90 Unspecified osteoarthritis, unspecified site; M81.0 Age-related osteoporosis without current pathological fracture; F17.210 Nicotine dependence, cigarettes, uncomplicated; Z86.2 Personal history of diseases of the blood and blood-forming organs and certain disorders involving the immune mechanism
CPT/HCPCS: 36415; 71275; 80053; 83690; 84484; 85025; 85380; 85610; 85730; 93005; 96361; 96374; 96375; 99284; A9270; J2470; J7030; Q9967

== ENCOUNTER 2024-04-03 08:36 | Outpatient (CLI) | payer MEDICARE, SELFPAY ==
[2024-04-21 13:19] LABS: Aspergillus fumigatus NEGATIVE (NEGATIVE)
== END 2024-04-03 08:37 | disposition home or self-care (01) ==
PROVIDERS: PCP Nurse Practitioner Family; Visit Provider Internal Medicine Critical Care Medicine
DX: J67.9 Hypersensitivity pneumonitis due to unspecified organic dust (principal)
CPT/HCPCS: 36415

== ENCOUNTER 2024-04-07 12:13 | Outpatient (RCR) | payer MEDICARE, SELFPAY ==
[2024-01-11 13:10] VITALS: BP 127/54; PULSE 78; TEMP 36.6; O2SAT 98
[2024-01-11] MEDS: ACETAMINOPHEN 325 MG TABLET 650 MG PO (13:35)
[2024-01-11] MEDS: diphenhydrAMINE HCl INJ 50 MG/ML VIAL 25 MG IV PUSH (13:36)
[2024-01-11] MEDS: ferumoxytoL 510 MG in SODIUM CHLORIDE 0.9% IV 83 ML 300 MG IVPB (13:40)
[2024-01-15 13:45] VITALS: BP 133/63; PULSE 72; TEMP 36.4; O2SAT 97
[2024-01-15] MEDS: ACETAMINOPHEN 325 MG TABLET 650 MG PO (14:09)
[2024-01-15] MEDS: diphenhydrAMINE HCl INJ 50 MG/ML VIAL 25 MG IV PUSH (14:10)
[2024-01-15] MEDS: ferumoxytoL 510 MG in SODIUM CHLORIDE 0.9% IV 83 ML 300 MG IVPB (14:21)
[2024-01-15 15:14] VITALS: BP 122/61
[2024-04-07 12:19] LABS: Basophils Percent Auto 0.4 % (0.2-1.2); Eosinophils Absolute Auto 0.1 K/mm3 (0-0.3); Eosinophils Percent Auto 1.9 % (0-4.4); Hematocrit 44.2 % (37.0-47.0); Hemoglobin 14.9 g/dL (12.0-15.0); Immature Granulocyte Absolute 0.02 K/mm3 (0.00-0.031); Immature Granulocyte Percent A 0.3 % (0-0.5); Lymphocytes Absolute Auto 1.84 K/mm3 (0.9-3.2); Lymphocytes Percent Auto 26.9 % (18.3-44.2); Mean Corpuscular HGB Conc 33.7 g/dl (32-36); Mean Corpuscular Hemoglobin 28.2 pg (26-34); Mean Corpuscular Volume 83.7 fl (80-100); Mean Platelet Volume 8.7 fl (7.4-10.4); Monocytes Absolute Auto 0.4 K/mm3 (0.1-0.6); Monocytes Percent Auto 5.3 % (2.6-8.5); Neutrophils Absolute Auto 4.5 K/mm3 (1.3-6.7); Neutrophils Percent Auto 65.2 % (45.5-73.1); Platelet Count Result 255 k/mm3 (150-375); Red Blood Count 5.28 M/mm3 (4.2-5.4); Red Cell Distribution Width 16.3 % (11.5-14.5); White Blood Count 6.8 K/mm3 (4.5-10.0)
[2024-04-07 13:45] LABS: Iron 99 ug/dL (37-170)
[2024-04-07 13:55] LABS: Percent Iron Saturation 30 % (20-50)
== END 2024-04-07 15:24 ==
LOC: AMCINF 12:13
PROVIDERS: Internal Medicine Hematology & Oncology; Visit Provider Nurse Practitioner Family
DX: D64.9 Anemia, unspecified (principal); E61.1 Iron deficiency; F31.9 Bipolar disorder, unspecified; F41.9 Anxiety disorder, unspecified; F17.210 Nicotine dependence, cigarettes, uncomplicated
CPT/HCPCS: 36415; 82728; 83540; 83550; 85025; 96365; 96375; A9270; J1200; Q0138

== ENCOUNTER 2024-04-15 07:54 | Outpatient (CLI) | payer MEDICARE, SELFPAY ==
--- NOTE | ~2024-04-15 | XR_ITS ---
Clinical Indication: Shortness of breath PA and lateral views of the chest: Comparison: 03/05/2024 Findings: The lungs are clear, without evidence of focal consolidation or pleural effusion. Cardiome diastinal silhouette is within normal limits. Bones and soft tissues are unremarkable. Impression: Normal chest. Reviewed, dictated and finalized at location . Impression: Normal chest.
--- NOTE | ~2024-04-15 | NM_ITS ---
EXAMINATION: NM pulmonary perfusion DATE: 04/15/2024 12:22 INDICATION: Shortness of breath. TECHNIQUE: 9.2 mCi Xenon-133 was given for ventilation images. 5.4 mCi Tc-99m MAA was administered in travenously for perfusion images. Scintigraphic images of the chest were obtained. COMPARISON: Chest 2 views 04/15/2024 FINDINGS: The ventilation images demonstrate diffusely low activity on the single breath image and bilateral re tention on equilibrium images. The perfusion images demonstrate no defects. IMPRESSION: 1. Normal perfusion. Reviewed, dictated and finalized at location A. IMPRESSION: 1. Normal perfusion.
--- NOTE | 2024-04-15 11:28 | P.PCNPFT_ITS ---
PFT Procedure Performed PFT Procedure Performed Spirometry with Pre/Post Bronchodilator Plethysmography (Lung Vol) Diffusing Cap (DLCO) Flow Vol Loop PFT Interpretation This is a pulmonary function test with pre and post-bronchodilator spirometry, plethysmography and diffusing capacity. The test was performed and results interpreted in accordance with the 2019 and 2005 ATS/ERS Task Force guidelines respectively using the Global Lung Function Initiative-2012 reference equations. Patient demonstrated good effort and cooperation. Reproducibility criteria were met. The quality of the pre bronchodilator spirometry maneuver was Grade B and post bronchodilator spirometry maneuver was Grade A. of note, patient had difficulty with inspiratory limb of spirometry. Findings: Spirometry: The contour the expiratory flow tracing is normal. The patient did not complete the inspiratory flow tracing on the four pre bronchodilator maneuvers. The contour the inspiratory flow tracing is normal on 2 of the 3 post bronchodilator maneuvers. The pre bronchodilator FVC is 3.72 L, 93% predicted. The pre bronchodilator FEV1 is 2.99 L, 91% predicted. The pre bronchodilator FEV1: FVC ratio is 80%. The post bronchodilator FVC is 4.00 L, representing a 7% increase. The post bronchodilator FEV1 is 3.29 L, re presenting a 10% increase. The post bronchodilator FEV1: FVC ratio is 82%. Plethysmography: The total lung capacity is 4.74 L, 88% predicted. The functional residual capacity is 1.87 L, 63% predicted. The residual volume is 0.92 L, 56% predicted. Diffusing capacity: The diffusing capacity unadjusted for hemoglobin and carboxyhemoglobin is 22.2, 89% predicted. The diffusing capacity adjusted for alveolar volume is 4.55, 97% predicted. Impression: The spirometry is normal without evidence of an obstructive abnormality. There is no significant improvement after inhaling a single dose of albuterol. The total lung capacity and residual volume are normal with a decreased functional residual capacity. This is an abnormal but nonspecific lung volume pattern. The diffusing capacity is normal. There are no prior studies for comparison
--- NOTE | 2024-04-15 11:32 | WPDSIXMINUTE ---
Six Minute Walk Procedure Procedure Performed Pulmonary Stress Test (6 min walk) Six Minute Walk Six Minute Walk: This is a 6 minute walk test. The test was performed and interpreted in accordance with the 2014 ERS/ATS task force guidelines. Findings: The patient's resting room air oxygen saturation measured by pulse oximetry was 98% and heart rate was 59 bpm. Patient ambulated for 335 meters and oxygen saturation remained 96 to 97%. Heart rate at the end of the study was 79 bpm. The patient did not qualify for supplemental oxygen at rest or with ambulation. There are no prior studies for comparison.
== END 2024-04-15 07:55 | disposition home or self-care (01) ==
LOC: ANHPFT 07:56
PROVIDERS: PCP Nurse Practitioner Family; Visit Provider Internal Medicine Critical Care Medicine
DX: R06.02 Shortness of breath (principal)
CPT/HCPCS: 71046; 78580; 94060; 94618; 94726; 94729; A9540

== ENCOUNTER 2024-05-06 08:30 | Outpatient (CLI) | payer MEDICARE, SELFPAY ==
--- NOTE | 2024-05-27 15:31 | P.SLEEP_ITS ---
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 The patient admits to snoring loudly. She admits to having excessive daytime sleepiness. She admits to having trouble falling asleep and maintaining sleep. She denies stopping breathing during the night. She does admit to choking or gasping during the night. She does have difficulty breathing on her back. She admits to having a headache when she wakes up in the morning. She admits to having a dry or sore mouth/ throat in the morning. She denies nocturnal heartburn. She denies nocturia. She denies having difficulty falling back asleep if she wakes up during the night. She does admit to waking up too early without an alarm. She denies using hypnotics or sedatives. She denies feeling anxious about sleep. She admits to having the urge to fall asleep during the day. She denies feeling drowsy while driving. She denies sleep paralysis, cataplexy and hypnagogic / hypnopompic hallucinations. She denies clenching or grinding her teeth. She admits to kicking or jerking her legs excessively. She does have a restless feeling in her legs that is worse with rest but gets better with activities. She does have the urge to move her legs. The symptoms predominantly occur in the evening or night. These leg symptoms do cause concern, distress or disturbance during sleep. She goes to bed at 7:45 p.m. on work days and at 10:00 p.m. on her days off. It takes her 45 minutes to fall asleep on her work days and 1 hour on her days off. She typically gets 6 hours and 45 minutes of sleep per night. She does not take any plan naps. She does not feel like her sleep is restorative regardless of the day. She denies acting out her dreams. She denies sleep walking. She consumes 3-4 cups of caffeinated beverage per day. She denies tobacco and alcohol use. She denies exercising on a regular basis. [facility] Past Medical History Medical History Abdominal pain Abnormal positron emission tomography (PET) scan Abnormal stools Allergies Anemia Arthritis Colloid cyst of brain Colloid cyst of third ventricle hx of Elevated liver enzymes Elevated rheumatoid factor Encounter to establish care Headache History of brain tumor Low back pain Low back pain radiating to both legs Migraine syndrome Murmur Osteoporosis RUQ pain Spina bifida occulta Tobacco abuse Surgical History Surgical History History of craniotomy 2018; removal of colloid cyst third ventricle Hx of lymph node excision Right axillary LN, 10/2014, follicular hyperplasia Previous section S/P cholecystectomy 02/2010 S/P left oophorectomy Family History Family History Father Diabetes mellitus Hypertension Heart disease Thyroid disorder Mother Hypertension Grandparent Diabetes mellitus Leukemia Grandparent Heart disease Malignant neoplasm of prostate Social History Social History Years smoked: 2.5 Smoking status: Current every day smoker (vaping) Tobacco type: cigarettes Smoking end date: 03/13/24 Alcohol intake: never Substance use: never Substance use type: does not use Do You Feel Safe in your Home?: Yes Lack of Transportation: No Lack of Food: Never True Current Housing: I Have Housing Concerned About Future Housing: No Difficulty Paying Gas/Electric Bills: No Difficulty Paying for Meds: No Currently Unemployed: No Education: High School Diploma/GED Difficulty w/ Childcare or Family Care: No Spiritual care concerns: No Medications Home Medications Medication Instructions Recorded Confirmed Type ferrous sulfate 325 mg (65 mg 325 mg PO BID 10/30/23 05/22/24 History iron) tablet promethazine 25 mg tablet 25 mg PO DAILY PRN Nausea 12/30/23 05/22/24 History naproxen 500 mg tablet 500 mg PO BID PRN pain #60 tabs 04/23/24 05/22/24 Rx rizatriptan 10 mg tablet (Maxalt) See Rx Instructions PO .COMPLEX 04/23/24 05/22/24 Rx #10 tabs cyclobenzaprine 10 mg tablet 5 - 10 mg PO BID PRN muscle spasm 05/02/24 05/22/24 Rx #60 tabs Sleep Procedure The sleep study was completed using hipixPAT a technically adequate device with seven channels: peripheral arterial tone, actigraphy, body position, snore, respiratory movement, pulse oximetry, sleep staging, and heart rate. Prior to using the device, the patient received verbal and written instructions for its application and was provided with the help desk phone number for additional telephonic instruction with 24-hour availability of qualified personnel to answer questions. The study was scored using CMS guidelines. Sleep Architecture The total recording time is 8 hrs, 32 min. The total sleep time is 7 hrs, 18 min. Sleep latency is 6 minutes. REM latency is 49 minutes. The patient had 13 episodes of waking. Sleep architecture shows 19.2% deep sleep, 54.8% light sleep, and (as % Total Sleep Time) showed NREM (Light 54.8%; Deep 19.2%), and a 26.0% stage REM. The patient spent 19.2% of total sleep time in the supine position. Sleep efficiency was 85.55. Respiratory Analysis The overall AHI (pAHI 4%:) is 0.7. The central AHI is 0.0. The AHI was 0.4 in NREM and 1.6 in REM sleep. The AHI was 0.7 in Supine and 0.7 in Non-supine sleep. Percent of Maycol Gomez respirations is 0.0. Oximetry Data The oxygen desaturation index (FRANCESCO 4%:) is 0.7. The mean saturation is 96%, and the lowest saturation is 87%. Time spent with saturation < 88% is 0.0 minutes. Snoring Profile Snoring average intensity is 40 dB. The patient snored above 45 decibels for 6.8 minutes, 1.6% of sleep time. Cardiac Profile The average pulse rate is 56 beats per minutes. The lowest pulse rate is 41 bpm. The highest pulse rate reported is 85 bpm. Atrial fibrillation was not detected. Premature beats occur <0.1 per minute. Assessment and Plan Assessment and Plan (1) Insomnia: Qualifiers: Insomnia type: unspecified Qualified Code(s): G47.00 - Insomnia, unsp ecified Code(s): G47.00 - Insomnia, unspecified Status: Acute Assessment and Plan: The patient had an overall AHI of 0.7 with desaturation down to 87%. This is not consistent with sleep-disordered breathing. The patient's sleep history is highly suggestive of Restless Leg Syndrome. I recommend that the patient have a serum ferritin drawn for evaluation of iron deficiency anemia. If the patient has a serum ferritin less than 75 ng/mL, I recommend starting a daily iron supplement and a Vitamin C supplement for better absorption. If the serum ferritin is greater than 75 ng/mL, I recommend starting a dopamine agonist and titrating the dose until symptoms resolve. There are nonpharmacological methods to treat limb movements including daily exercise, stretching calf muscles before bed, avoiding excessive amounts of caffeine and alcohol, vitamin B supplementation, magnesium lotion massaged into legs before bed, and use of a weighted blanket. The patient's sleep history is consistent with insomnia. The patient should be screened for any underlying mood disorders. Insomnia Tips * Have a wind down period before bed where there are no electronics, blue light or stimulating activities. 30 minutes- 1 hour. * Establish a set wake-up time for yourself, and get up at the set time even if you feel like you need more sleep * Do not go to bed until you are ready to fall asleep. Do not go to bed because it is bedtime * If you have not gone to sleep after what feels like 20 minutes, get up and leave the bedroom. Meditate, pray, listen to soft music or read a boring book until you feel sleepy.? No work or productive activities. Go back to bedroom and try to fall asleep. Repeat cycle as many times until you fall asleep. * The bed is only meant for sleep and sex. Avoid activities like reading, smoking, listening to the radio, using the computer, or watching TV in bed. * Try to keep active during the day and avoid napping. * No caffeine after noon. Data The data obtained during this sleep study is adequate for interpretation. Certification This sleep study has been reviewed by a board certified sleep medicine physician.
[2024-05-27 15:34] VITALS: BMI 39.7
== END 2024-05-07 10:33 | disposition home or self-care (01) ==
PROVIDERS: PCP Nurse Practitioner Family; Visit Provider Internal Medicine Critical Care Medicine
DX: R40.0 Somnolence (principal); G47.00 Insomnia, unspecified
CPT/HCPCS: 95800

== ENCOUNTER 2024-06-24 09:33 | Outpatient (CLI) | payer MEDICARE, SELFPAY ==
[2024-06-24 10:33] LABS: CRP < 0.5 mg/dL (<1.0)
[2024-06-24 23:14] LABS: GGT 20 U/L (3-50)
[2024-06-25 06:43] LABS: Alpha-1-Antitrypsin, QN 116 mg/dL (83-199); Ceruloplasmin 30 mg/dL (14-48)
[2024-06-29 13:03] LABS: Actin Antibody (IgG) <20 U (<20)
[2024-06-30 15:23] LABS: ALT 17 U/L (6-29); Alpha-2-Macroglobulin 182 mg/dL (106-279); Apolipoprotein A1 159 mg/dL (101-198); Fibrosis Score 0.04; Fibrosis Stage F0; GGT 21 U/L (3-50); Haptoglobin 241 mg/dL (43-212); Necroinflammat Act Grade A0; Reference ID 5206704; Total Bilirubin 0.3 mg/dL (0.2-1.2)
[2024-07-02 15:44] LABS: Alkaline Phosphatase 110 U/L (31-125)
[2024-07-03 10:09] LABS: Mitochondrial (M2) Ab (IgG) <20.0 U
== END 2024-06-24 09:34 | disposition home or self-care (01) ==
PROVIDERS: PCP Nurse Practitioner Family; Visit Provider Nurse Practitioner Family
DX: R79.89 Other specified abnormal findings of blood chemistry (principal); R16.0 Hepatomegaly, not elsewhere classified; R10.9 Unspecified abdominal pain; R19.7 Diarrhea, unspecified; R74.8 Abnormal levels of other serum enzymes
CPT/HCPCS: 36415; 81596; 82103; 82390; 82977; 83520; 84075; 84080; 86038; 86039; 86140; 86364

== ENCOUNTER 2024-07-28 07:50 | Outpatient (CLI) | payer MEDICARE, SELFPAY ==
[2024-07-28 09:43] LABS: Hematocrit 44.2 % (37.0-47.0); Hemoglobin 14.4 g/dL (12.0-15.0); Mean Corpuscular HGB Conc 32.6 g/dl (32-36); Mean Corpuscular Hemoglobin 28.3 pg (26-34); Mean Corpuscular Volume 86.8 fl (80-100); Mean Platelet Volume 8.8 fl (7.4-10.4); Platelet Count Result 254 k/mm3 (150-375); Red Blood Count 5.09 M/mm3 (4.2-5.4); Red Cell Distribution Width 12.8 % (11.5-14.5); White Blood Count 7.2 K/mm3 (4.5-10.0)
[2024-07-28 09:50] LABS: Add Urine Microscopic? YES; Appearance Urine Clear (Clear); Bacteria Urine Rare /hpf; Bilirubin Urine Negative (Negative); Blood Urine Negative (Negative); Color Urine Yellow (Yellow); Glucose Urine UA Negative (Negative); Ketones Urine Negative (Negative); Leukocyte Esterase Ur Trace LEU/UL (Negative); Nitrate Urine Negative (Negative); Non Pathogenic Casts 0-2; Protein Urine Negative (Negative); RBC Urine 0-2 /hpf (0-2); Specific Grav Ur 1.016 (1.001-1.035); Squamous Epithelial Cell Urine Few /hpf (Few); Urobilinogen Urine 0.2 mg/dL (<2.0); pH Urine 5.5 (5.0-9.0)
[2024-07-28 09:56] LABS: Anion Gap 8 mmol/L (4-12); Blood Urea Nitrogen 15 mg/dL (7-17); Calcium 9.2 mg/dL (8.4-10.2); Carbon Dioxide 22 mmol/L (22-30); Chloride 105 mmol/L (98-107); Estimated Glomerular Filt Rate > 60; Glucose 99 mg/dL (65-110); Potassium 4.2 mmol/L (3.4-5.0); Sodium 135 mmol/L (137-145)
[2024-07-28 09:57] LABS: Partial Thromboplastin Time 29.2 Seconds (22.3-36.8); Prothrombin Time 13.2 Seconds (11.1-14.7)
--- OUTSIDE RECORDS SUMMARY | 2024-08-03 01:35 | XMS_ITS | Clinical Summary ---
Author Organization [facility] Address [address] [place] [address] Care Team Providers Care Landscape Architecture Professor Name Role Phone Bernadine Dionicio Arnel Primary Care Provider [phone] Source Comments [facility],non-owned Affiliates and Associated Physician Practices is amultiple site organization consisting of ambulatory clinics and hospital sitesin [place], [place], [place] and [place]. This disclosure is being madepursuant to the Care Everywhere program and may not contain all information available regarding this patient. Last updated 18.[facility] [employer] Allergies Active Allergy Reactions Criticality Noted Date Comments Adhesive Sensitivity 11/10/2014 Can tolerate paper tape control pill form [Other] 06/14/2017 Sodium Hypochlorite Unknown 03/17/2018 control pills cause vaginal bleeding Medications * Be aware that medications may not be up to date on this document. Alwaysverify current medications with the patient. Medication Sig Dispensed Refills Start Date End Date Status dicyclomine (BENTYL) 10 MG capsule Take 10 mg by mouth 3 times daily. Active buPROPion (WELLBUTRIN) 75 MG tablet Take 150 mg by mouth 3 times daily. Active HYDROmorphone (DILAUDID) 4 MG tablet Take 4 mg by mouth 2 times daily Active amitriptyline (ELAVIL) 10 MG tablet Take 10 mg by mouth at bedtime 02/04/2017 Active albuterol HFA (PROVENTIL;VENTOL IN;PROAIR) 108 (90 BASE) MCG/ACT inhaler Inhale 1 (one) puff by mouth 2 times daily Active TRINTELLIX 10 MG tabletIndications :at the same time each day Take 10 mg by mouth once daily Reasons: at the same time each day 1 05/10/2017 Active metFORMIN (GLUCOPHAGE) 500 MG tablet Take 500 mg by mouth 2 times daily with morning and evening meal 11 05/11/2017 Active L-Methylfolate (DEPLIN) 7.5 MG Take 7.5 mg by mouth once daily Active Prenat w/o G-PZ-Dmsaoxr-FA-D ANAND (PNV-DHA PO) Take by mouth once daily Active butalbital-acetam inophen-caffeine (FIORICET) 50-325-40 MG tablet TAKE 1 TABLET BY MOUTH EVERY 4 HOURS NEEDED FOR HEADACHE 30 tablet 5 10/17/2017 Active progesterone micronized (PROMETRIUM) 200 MG capsule Take 200 mg by mouth at bedtime 1 11/16/2017 Active busPIRone (BUSPAR) 10 MG tablet Take 10 mg by mouth 3 times daily 1 11/15/2017 Active doxylamine (UNISOM) 25 MG tablet Take 0.5 tablets by mouth nightly as needed (nausea) If nausea does not improve can take BID PRN nausea 15 tablet 01/03/2018 Active Additional Information Patient not taking.Reported on 03/27/2023 Pyridoxine HCl (B-6) 50 MG Take 0.5 tablets by mouth once daily 10 tablet 01/03/2018 Active Additional Information Patient not taking.Reported on 03/27/2023 zonisamide (ZONEGRAN) 25 MG capsule TAKE 2 CAPSULES BY MOUTH ONCE DAILY 60 capsule 09/04/2018 Active Additional Information Patient not taking.Reported on 03/27/2023 lisinopril (PRINIVIL; ZESTRIL) 10 MG tablet Take 1 tablet by mouth once daily 30 tablet 2 08/09/2019 Active meloxicam (MOBIC) 7.5 MG tablet Take 1 tablet by mouth 2 times daily 20 tablet 08/24/2020 Active ibuprofen (MOTRIN) 400 MG tablet Take 1 (one) tablet by mouth every 6 hours as needed for Pain 20 tablet 09/22/2020 Active acetaminophen (TYLENOL) 325 MG tablet Take 2 (two) tablets by mouth every 6 hours as needed for Pain Maximum allowable Acetaminophen amount = 4 Grams (4000 mg) / 24 hours. 40 tablet 09/22/2020 Active ondansetron (Zofran) 4 MG tablet TAKE 1 TABLET BY MOUTH 4 TIMES A DAY NEEDED FOR NAUSEA 01/24/2023 Active predniSONE (Deltasone) 10 MG tablet Take by mouth every 24 hours 07/11/2022 Active traMADol (Ultram) 50 MG tablet TAKE 2 TABLETS BY ORAL ROUTE EVERY 6 HOURS NEEDED NOT TO EXCEED 8 TABLETS PER 24HRS 10/03/2022 Active Active Problems Problem Noted Date Diagnosed Date RLQ abdominal pain 02/07/2010 Threatened , antepartum 03/15/2009 Family History Medical History Relation Name Comments Diabetes Brother Diabetes Father Hypercholesterolemia Father Hypertension Father Migraine Father Diabetes Maternal Grandmother Hypertension Mother Relation Name Status Comments Brother Alive Father Alive Maternal Grandmother Mother Alive Social History Tobacco Use Types Packs/Day Years Used Date Smoking Tobacco: Former Cigarettes 1 4 1 08/13/2009 - 06/13/2014 Smokeless Tobacco: Never Tobacco Cessation:Counseling Given: Not Answered Alcohol Use Standard Drinks/Week Comments Yes 0 (1 standard drink = 0.6 oz pur e alcohol) occasionally Sex and Gender Information Value Date Recorded Sex Assigned at Not on file Gender Identity Not on file Sexual Orientation Not on file Last Filed Vital Signs Vital Sign Reading Time Taken Comments Blood Pressure 135/83 03/27/2023 3:17 PM CDT Pulse 69 03/27/2023 3:17 PM CDT Temperature 36.5 ??C (97.7 ??F) 03/27/2023 3:17 PM CD T Respiratory Rate 18 08/25/2022 7:43 AM 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 12 MONTHS 1985 PAP SMEAR 1985 HEPATITIS C SCREENING 06/01/2003 DTAP/TDAP/TD VACCINES (1 - Tdap) 2004 HEPATITIS B VACCINE (1 of 3 - 19+ 3-dose series) 2004 DEPRESSION SCREENING 08/13/2023 COVID-19 VACCINE ( season) 2024 INFLUENZA VACCINE (#1) 2024 7, 06/25/2015, 06/11/2015, Additional history exists ZOSTER VACCINE (1 of 2) 2035 HIV SCREENING Completed 04/06/2023 HIB VACCINE Aged Out No longer eligi ble based on patient's age to complete this topic HPV VACCINE Aged Out No longer eligi ble based on patient's age to complete this topic MENINGOCOCCAL VACCINE Aged Out No oly justina eligible based on patient's age to complete this topic PNEUMOCOCCAL VACCINE Aged Out No long er eligible based on patient's age to complete this topic Procedures Procedure Name Priority Date/Time Associated Diagnosis Comments HIV-1 HIV-2 ANTIBODY + HIV P24 AG PANEL Routine 04/06/2023 6:50 AM CDT Diffuse follicle center lymphoma, spleen (HCC) from Last 3 Months or Most Recently Relevant to Health Maintenance Results * HIV-1 HIV-2 ANTIBODY + HIV P24 AG PANEL (04/06/2023 6:50 AM CDT) HIV Antigen/Antibod y 1 & 2 Non-reacti ve Non-react shanti 04/06/2023 8:08 AM CDT [facility] Comment:No Laboratory eviden ce of HIV infection. 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 Self Pay MEDICARE MEDICARE PART A AND B [id number] Effective for all dates [address] [place] [address] Medicare SELF PAY NO INSURANCE SELF PAY NO INSURANCE Effective for all dates [place] Self Pay MEDICARE MEDICARE PART A AND B [id number] Effective for all dates [address] [place] [address] Medicare SELF PAY NO INSURANCE SELF PAY NO INSURANCE Effective for all dates [place] Self Pay MEDICARE MEDICARE PART A AND B [id number] Effective for all dates [address] [place] [address] Medicare SELF PAY NO INSURANCE SELF PAY NO INSURANCE Effective for all dates [place] Self Pay MEDICARE MEDICARE PART A AND B [id number] Effective for all dates [address] [place] [address] Medicare SELF PAY NO INSURANCE SELF PAY NO INSURANCE Effective for all dates [place] Self Pay MEDICARE [place] MEDICARE PART B [id number] 07/13/2015-Pre sent [address] [address] [place] [address] Medicare [place] [employer] [id number] 11/11/2022-Pres ent ATTN: MELISSA KAPLAN G [address] [place] [address] Medicaid MEDICARE MEDICARE PART A AND B [id number] 07/13/2015-Pre sent [address] [place] [address] Medicare [place] BSC PLAN [id number] Effective for all dates [address] [place] [address] Medicaid [place] Advance Directives * Full Code (Latest Code Status on File) Date Activated Date Inactivated Comments 08/22/2010 10:42 AM 08/22/2010 11:57 PM * Full Code Date Activated Date Inactivated Comments 02/14/2010 1:50 PM 02/17/2010 5:57 AM * Full Code Date Activated Date Inactivated Comments 02/11/2010 8:28 PM 02/14/2010 1:50 PM Care Teams Landscape Architecture Professor Relationship Specialty Start Date End Date Dionicio Colindres DO [address] [place] [address] [place] ROMANO [id number] PCP - General Family Medicine 01/03/18
--- OUTSIDE RECORDS SUMMARY | 2024-08-03 01:35 | XMS_ITS | Referral Summary ---
Author Organization [facility] Address [address] [place] [address] Care Team Providers Care Corporate Quality Assurance Manager Name Role Phone Colindres, Dionicio Arnel Primary Care Provider [phone] Source Comments [facility],non-owned Affiliates and Associated Physician Practices is amultiple site organization consisting of ambulatory clinics and hospital sitesin [place], [place], [place] and [place]. This disclosure is being madepursuant to the Care Everywhere program and may not contain all information available regarding this patient. 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 No 11/10/2014 Is person blind or have serious difficulty seein g? No 11/10/2014 Does person have serious dif ficulty walking/climbing stairs? No 11/10/2014 Does person have difficulty dressing/bathing? No 11/10/2014 Does person have difficulty doing errands alone? No 11/10/2014 Cognitive Status Response Date of Assessm ent Does person have difficulty concentrating/remembering/making decisions? No 11/10/2014 Plan of Treatment Not on file Procedures Procedure Name Priority Date/Time Associated Diagnosis [...] ve Non-react shanti 04/06/2023 8:08 AM CDT [facility] Comment:No Laboratory eviden ce of HIV infection. 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 Self Pay MEDICARE MEDICARE PART A AND B [id number] Effective for all dates [address] [place] [address] Medicare SELF PAY NO INSURANCE SELF PAY NO INSURANCE Effective for all dates [place] Self Pay MEDICARE MEDICARE PART A AND B [id number] Effective for all dates [address] [place] [address] Medicare SELF PAY NO INSURANCE SELF PAY NO INSURANCE Effective for all dates [place] Self Pay MEDICARE MEDICARE PART A AND B [id number] Effective for all dates [address] [place] [address] Medicare SELF PAY NO INSURANCE SELF PAY NO INSURANCE Effective for all dates [place], [place] Self Pay MEDICARE MEDICARE PART A AND B [id number] Effective for all dates [address] [place] [address] Medicare SELF PAY NO INSURANCE SELF PAY NO INSURANCE Effective for all dates [place] Self Pay MEDICARE MEDICARE PART A AND B [id number] Effective for all dates [address] [place] [address] Medicare SELF PAY NO INSURANCE SELF PAY NO INSURANCE Effective for all dates [place] Self Pay MEDICARE WPS MEDICARE PART B [id number] 07/13/2015-Pre sent [address] [address] [place] [address] Medicare [place] [employer] [id number] 11/11/2022-Pres ent ATTN: MELISSA Gonzaelz [address] [place] [address] Medicaid MEDICARE MEDICARE PART A AND B [id number] 07/13/2015-Pre sent [phone] [address] [place] [address] Medicare [place] BSC PLAN [id number] Effective for all dates [address] [place] [address] Medicaid [place] Advance Directives * Full Code (Latest Code Status on File) Date Activated Date Inactivated Comments 08/22/2010 10:42 AM 08/22/2010 11:57 PM * Full Code Date Activated Date Inactivated Comments 02/14/2010 1:50 PM 02/17/2010 5:57 AM * Full Code Date Activated Date Inactivated Comments 02/11/2010 8:28 PM 02/14/2010 1:50 PM Care Teams Corporate Quality Assurance Manager Relationship Specialty Start Date End Date Dionicio Colindres DO [address] [place] [address] [place] ROMANO [address] PCP - General Family Medicine 01/03/18
--- OUTSIDE RECORDS SUMMARY | 2024-08-03 01:36 | XMS_ITS | Encounter Summary ---
Author Organization [facility] Health Address [address] 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, spleen (HCC) Procedures PET CT SKULL TO MID THIGH Carey Partida MD [address] [place] [address] OF HEMATOLOGY & [place] [address] Referral ID Status Reason Start Date Expiration Date Visits Re quested Visits Authorized [id number] Closed 03/27/2023 03/26/2024 1 1 Encounter Details Date Type Department Care Team (Late st Contact Info) Description 04/06/2023 6:52 AM CDT - 04/06/2023 11:59 PM CDT Hospital Encounter [facility] PET [address] [place] [phone] [place] [address] [place] [address] OF HEMATOLOGY & [place] [address] Discharge Disposition: Home or Self Care Social History Tobacco Use Types Packs/Day Years Used Date Smoking Tobacco: Former Cigarettes 1 4 1 08/13/2009 - 06/13/2014 Smokeless Tobacco: Never Alcohol Use Standard Drinks/Week Comments Yes 0 (1 standard drink = 0.6 oz pur e alcohol) occasionally Sex and Gender Information Value Date Recorded Sex Assigned at Not on file Gender Identity Not on file Sexual Orientation Not on file documented as of this encounter Functional Status Functional Status Response Date of [...] person have difficulty concentrating/remembering/making decisions? No 11/10/2014 documented as of this encounter Medications at Time of Discharge Medication Sig Dispensed Refills Start Date End Date acetaminophen (TYLENOL) 325 MG tablet Take 2 (two) tablets by mouth every 6 hours as needed for Pain Maximum allowable Acetaminophen amount = 4 Grams (4000 mg) / 24 hours. 40 tablet 09/22/2020 albuterol HFA (PROVENTIL;VENTOLIN;P ROAIR) 108 (90 BASE) MCG/ACT inhaler Inhale 1 (one) puff by mouth 2 times daily amitriptyline (ELAVIL) 10 MG tablet Take 10 mg by mouth at bedtime 02/04/2017 buPROPion (WELLBUTRIN) 75 MG tablet Take 150 mg by mouth 3 times daily. busPIRone (BUSPAR) 10 MG tablet Take 10 mg by mouth 3 times daily 1 11/15/2017 butalbital-acetaminop hen-caffeine (FIORICET) 50-325-40 MG tablet TAKE 1 TABLET BY MOUTH EVERY 4 HOURS NEEDED FOR HEADACHE 30 tablet 5 10/17/2017 dicyclomine (BENTYL) 10 MG capsule Take 10 mg by mouth 3 times daily. doxylamine (UNISOM) 25 MG tablet Take 0.5 tablets by mouth nightly as needed (nausea) If nausea does not improve can take BID PRN nausea 15 tablet 01/03/2018 HYDROmorphone (DILAUDID) 4 MG tablet Take 4 mg by mouth 2 times daily ibuprofen (MOTRIN) 400 MG tablet Take 1 (one) tablet by mouth every 6 hours as needed for Pain 20 tablet 09/22/2020 L-Methylfolate (DEPLIN) 7.5 MG Take 7.5 mg by mouth once daily lisinopril (PRINIVIL; ZESTRIL) 10 MG tablet Take 1 tablet by mouth once daily 30 tablet 2 08/09/2019 meloxicam (MOBIC) 7.5 MG tablet Take 1 tablet by mouth 2 times daily 20 tablet 08/24/2020 metFORMIN (GLUCOPHAGE) 500 MG tablet Take 500 mg by mouth 2 times daily with morning and evening meal 11 05/11/2017 ondansetron (Zofran) 4 MG tablet TAKE 1 TABLET BY MOUTH 4 TIMES A DAY NEEDED FOR NAUSEA 01/24/2023 predniSONE (Deltasone) 10 MG tablet Take by mouth every 24 hours 07/11/2022 Prenat w/o L-LG-Fyycmhj-FA-DHA (PNV-DHA PO) Take by mouth once daily progesterone micronized (PROMETRIUM) 200 MG capsule Take 200 mg by mouth at bedtime 1 11/16/2017 Pyridoxine HCl (B-6) 50 MG Take 0.5 tablets by mouth once daily 10 tablet 01/03/2018 traMADol (Ultram) 50 MG tablet TAKE 2 TABLETS BY ORAL ROUTE EVERY 6 HOURS NEEDED NOT TO EXCEED 8 TABLETS PER 24HRS 10/03/2022 TRINTELLIX 10 MG tabletIndications:at the same time each day Take 10 mg by mouth once daily Reasons: at the same time each day 1 05/10/2017 zonisamide (ZONEGRAN) 25 MG capsule TAKE 2 CAPSULES BY MOUTH ONCE DAILY 60 capsule 09/04/2018 documented as of this encounter Plan of Treatment Not on file documented as of this encounter Procedures Procedure Name Priority Date/Time Associated Diagnosis Comments PET CT SKULL TO MID THIGH Routine 04/06/2023 8:09 AM CDT 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, spleen (HCC) GLUCOSE SCREEN - POCT (IP) [facility] STAT 04/06/2023 6:40 AM CDT documented in this encounter Results * GLUCOSE SCREEN - POCT (IP) [facility] (04/06/2023 6:40 AM CDT) Glucose WB/POC 97 70 - 115 mg/dL [facility] POCT TESTING Blood BLOOD SPECIMEN / Unknown 04/06/2023 6:40 AM CDT Carey Partida MD LAB - POINT OF CARE ORDERABLES [facility] POCT TESTING [address] [place] [address], [facility] [phone] documented in this encounter Visit Diagnoses Not on filedocumented in this encounter Administered Medications Inactive Administered Medications - up to 3 most recent administrations Medication Order MAR Action Action Date Dose Rate Site F-18 fludeoxyglucose (FDG) injection SOLN 10.91 millicurie 10.91 millicurie, Intravenous, ONCE, 1 dose, On Sun04/06/23 at 0700 $ Given 04/06/2023 6:41 AM CDT 10.91 millicuries documented in this encounter Additional Health Concerns Infection Onset Date Last Indicated Resolved Time 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
--- OUTSIDE RECORDS SUMMARY | 2024-08-03 01:36 | XMS_ITS | Encounter Summary ---
Author Organization [facility] Health Address [address] [place] [address] Care Team Providers Care Cell Plasterer Name Role Phone Colindres Dionicio Arnel Primary Care Provider Encounter Details Date Type Department Care Team (Late st Contact Info) Description 03/30/2023 Orders Only [facility] - Hematology/Oncolog y [address] [place] [phone] Carey Partida MD [address] [facility] [place] [address] Lymphoproliferative disease (HCC) Social History Tobacco Use Types Packs/Day Years [...] No 11/10/2014 documented as of this encounter Plan of Treatment Not on file documented as of this encounter Visit Diagnoses Diagnosis Lymphoproliferative disease (HCC)- Primary Neoplasm of uncertain behavior of other lymphatic and hematopoietic tissues documented in this encounter Additional Health Concerns Infection Onset Date Last Indicated Resolved Time 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
--- OUTSIDE RECORDS SUMMARY | 2024-08-03 01:36 | XMS_ITS | Encounter Summary ---
Author Organization [facility] Health Address [address] [place] [address] Care Team Providers Care Solar Sales Associate Name Role Phone Colindres, Dionicio Arnel Primary Care Provider Encounter Details Date Type Department Care Team (Late st Contact Info) Description 04/02/2023 Orders Only [facility] - Hematology/Oncology [address] [place] [address] Carey Partida MD [address] [facility] OF HEMATOLOGY & [place] [address] Diffuse follicle center lymphoma, spleen (HCC) ; Other infectious disease Social History Tobacco Use Types Packs/Day Years [...] as of this encounter Plan of Treatment Scheduled Orders Name Type Priority Associated Diagnoses Orde r Schedule HIV-1 HIV-2 ANTIBODY Lab STAT Diffuse follicle center lymphoma, spleen (HCC) Other infectious disease Ordered: 04/02/2023 RUBY-AGUSTIN VIRUS PCR QUANT BLOOD/CSF Microbiology STAT Diffuse follicle center lymphoma, spleen (HCC) Ordered: 04/02/2023 documented as of this encounter Results * URIC ACID BLOOD (04/06/2023 6:50 AM CDT) Uric Acid 5.1 2.6 - 6.0 mg/dL 04/06/2023 7:35 AM CDT [facility] Blood BLOOD SPECIMEN / Unknown Lab Venipuncture / Unknown 04/06/2023 6:50 AM CDT 04/06/2023 7:09 AM CDT Carey Partida MD LAB - CHEMISTRY ELIZA LINOTN Performing Organization Address City/State/[facility] Co de Phone Number [facility] [address] [place] [phone] [phone] documented in this encounter Visit Diagnoses Diagnosis Diffuse follicle center lymphoma, spleen (HCC)- Primary Other infectious disease documented in this encounter Additional Health Concerns Infection Onset Date Last Indicated Resolved Time MRSA 09/24/2020 09/24/2020 documented as of this encounter Care Teams Solar Sales Associate Relationship Specialty Start Date End Date Dionicio Colindres DO [address] [place] [id number] PCP - General Family Medicine 01/03/18 documented as of this encounter
--- OUTSIDE RECORDS SUMMARY | 2024-08-03 01:36 | XMS_ITS | Encounter Summary ---
Author Organization [facility] Health Address [address] [place] [address] Care Team Providers Care Application Packaging Consultant Name Role Phone Dionicio Colindreshen Primary Care Provider [phone] Encounter Details Date Type Department Care Team (Latest Contact Info) Description 04/06/2023 6:45 AM CDT - 04/06/2023 6:51 AM CDT Hospital Encounter [facility] OP DRAW STATION [address] [place] [phone] Discharge Disposition: Home or Self Care Social [...] mouth every 24 hours 07/11/2022 Prenat w/o E-RU-Qpyrtqa-FA-DHA (PNV-DHA PO) Take by mouth once daily [...] CDT Diffuse follicle center lymphoma, spleen (HCC) URIC ACID BLOOD STAT 04/06/2023 6:50 AM CDT Diffuse follicle center lymphoma, spleen (HCC) CBC W AUTO DIFFERENTIAL STAT 04/06/2023 6:50 AM CDT Lymphadenopathy COMPREHENSIVE METABOLIC PANEL STAT 04/06/2023 6:50 AM CDT Lymphadenopathy [facility] BLOOD STAT 04/06/2023 6:50 AM CDT Lymphadenopathy documented in this encounter Results * URIC ACID BLOOD (04/06/2023 6:50 AM CDT) Uric Acid 5.1 2.6 - 6.0 mg/dL 04/06/2023 7:35 AM CDT [facility] Blood BLOOD SPECIMEN / Unknown Lab Venipuncture / Unknown 04/06/2023 6:50 AM CDT 04/06/2023 7:09 AM CDT Carey Partida MD LAB - CHEMISTRY ELIZA LINTON [facility] [address] [place] [address], [facility] [phone] * (ABNORMAL) COMPREHENSIVE METABOLIC PANEL (04/06/2023 6:50 AM T) BUN 13 7 - 26 mg/dL 04/06/2023 7:35 AM [facility] Creatinine 0.73 0.56 - 0.96 mg/dL 04/06/2023 7:35 AM [facility] Sodium 135(L) 136 - 145 mmol/L 04/06/2023 7:35 AM [facility] Potassium 3.5 3.5 - 4.5 mmol/L 04/06/2023 7:35 AM [facility] Chloride 105 98 - 107 mmol/L 04/06/2023 7:35 AM [facility] CO2 25 22 - 29 mmol/L 04/06/2023 7:35 AM [facility] Glucose 90 70 - 115 mg/dL 04/06/2023 7:35 AM [facility] Calcium 8.7 8.4 - 10.2 mg/dL 04/06/2023 7:35 AM [facility] Protein Total 6.5 6.0 - 8.3 g/dL 04/06/2023 7:35 AM [facility] Albumin 3.9 3.4 - 5.0 g/dL 04/06/2023 7:35 AM [facility] Bilirubin Total 0.4 0.2 - 1.2 mg/dL 04/06/2023 7:35 AM [facility] Alkaline Phosphatase 80 40 - 150 U/L 04/06/2023 7:35 AM [facility] ALT 37 5 - 55 U/L 04/06/2023 7:35 AM [facility] AST 37(H) 5 - 34 U/L 04/06/2023 7:35 AM [facility] Anion Gap 9 8 - 18 04/06/2023 7:35 AM [facility] BUN/Creatinine Ratio 18 7 - 23 04/06/2023 7:35 AM [facility] Osmolality Calculated 280 270 - 300 mOsm/kg 04/06/2023 7:35 AM CDT [facility] Albumin/Globulin Ratio 1.5 1.1 - 2.3 04/06/2023 7:35 AM CDT [facility] eGFR by CKD-EPI >90 >=90 mL/min/1.7 3 m2 04/06/2023 7:35 AM CDT [facility] Blood BLOOD SPECIMEN / Unknown Lab Venipuncture / Unknown 04/06/2023 6:50 AM CDT 04/06/2023 7:09 AM CDT Carey Partida MD LAB - CHEMISTRY ELIZA [place]INTON [address] [address], [facility] [phone] * [facility] BLOOD (04/06/2023 6:50 AM CDT) Pathologist [facility] LDH Total 137 125 - 243 Units/L 04/06/2023 7:35 AM CDT [facility] Blood BLOOD SPECIMEN / Unknown Lab Venipuncture / Unknown 04/06/2023 6:50 AM CDT 04/06/2023 7:09 AM CDT Carey Partida MD LAB - CHEMISTRY ELIZA [place] [facility] [address] [place] [address], [facility] [phone] * (ABNORMAL) CBC WITH DIFFERENTIAL (04/06/2023 6:50 AM CDT) WBC 5.5 3.5 - 10.5 10? 3 /uL 04/06/2023 7:18 AM CDT [facility] RBC 5.05 3.80 - 5.20 10? 6 /uL 04/06/2023 7:18 AM CDT [facility] Hemoglobin 13.2 12.0 - 15.6 g/dL 04/06/2023 7:18 AM T [facility] Hematocrit 40.4 35.0 - 45.0 % 04/06/2023 7:18 AM T [facility] MCV 80.0(L) 80.7 - 98.3 fL 04/06/2023 7:18 AM [facility] MCH 26.1(L) 26.7 - 34.0 pg 04/06/2023 7:18 AM [facility] MCHC 32.7 30.8 - 35.9 g/dL 04/06/2023 7:18 AM [facility] RDW-SD 38.5 36.0 - 50.0 fL 04/06/2023 7:18 AM [facility] RDW-CV 13.4 11.2 - 14.8 % 04/06/2023 7:18 AM [facility] Platelet Count 263 150 - 400 10? 3 /uL 04/06/2023 7:18 AM [facility] MPV 9.0(L) 9.4 - 12.9 fL 04/06/2023 7:18 AM [facility] nRBC Absolute 0.00 0 10? 3 /uL 04/06/2023 7:18 AM [facility] nRBC Auto 0.0 0 /100 WBC 04/06/2023 7:18 AM [facility] Neutrophils % 52.7 35.0 - 70.0 % 04/06/2023 7:18 AM [facility] Lymphocytes % 38.1 20.0 - 43.0 % 04/06/2023 7:18 AM [facility] Monocytes % 7.1 5.0 - 13.0 % 04/06/2023 7:18 AM [facility] Eosinophils % 1.5 0.0 - 6.0 % 04/06/2023 7:18 AM [facility] Basophil % 0.4 0.0 - 2.0 % 04/06/2023 7:18 AM [facility] Neutrophils Absolute 2.89 1.60 - 7.00 10? 3 /uL 04/06/2023 7:18 AM [facility] Lymphocyte Absolute 2.09 1.10 - 3.90 10? 3 /uL 04/06/2023 7:18 AM [facility] Monocytes Absolute 0.39 0.26 - 1.07 10? 3 /uL 04/06/2023 7:18 AM CDT [facility] Eosinophils Absolute 0.08 0.00 - 0.47 10? 3 /uL 04/06/2023 7:18 AM CDT [facility] Basophils Absolute 0.02 0.00 - 0.08 10? 3 /uL 04/06/2023 7:18 AM CDT [facility] Immature Granulocytes % 0.2 0.0 - 1.0 % 04/06/2023 7:18 AM CDT [facility] Immature Granulocytes Absolute 0.01 04/06/2023 7:18 AM CDT [facility] Blood BLOOD SPECIMEN / Unknown Lab Venipuncture / Unknown 04/06/2023 6:50 AM CDT 04/06/2023 7:09 AM CDT Carey Partida MD LAB - HEMATOLOGY ORD ERABLES [facility] [address] [place] [address], [facility] [phone] * HIV-1 HIV-2 ANTIBODY + HIV P24 AG PANEL (04/06/2023 6:50 AM CDT) HIV Antigen/Antibod y 1 & 2 Non-reacti ve Non-react shanti 04/06/2023 8:08 AM CDT [facility] Comment:No Laboratory eviden ce of HIV infection. Blood BLOOD SPECIMEN / Unknown Lab Venipuncture / Unknown 04/06/2023 6:50 AM CDT 04/06/2023 7:01 AM CDT Carey Partida MD LAB - CHEMISTRY ORDE RABDAVID [facility] [address] [place] [phone], [place] [phone] documented in this encounter Visit Diagnoses Diagnosis Diffuse follicle center lymphoma, spleen (HCC)- Primary Lymphadenopathy Enlargement of lymph nodes documented in this encounter Additional Health Concerns Infection Onset Date Last Indicated Resolved Time MRSA 09/24/2020 09/24/2020 documented as of this encounter Care Teams Application Packaging Consultant Relationship Specialty Start Date End Date Dionicio Colindres DO [address] [facility] [place] [address] PCP - General Family Medicine 01/03/18 documented as of this encounter
--- OUTSIDE RECORDS SUMMARY | 2024-08-03 01:36 | XMS_ITS | Encounter Summary ---
Author Organization [facility] Health Address [address] [place] [address] Care Team Providers Care Audio Visual Technician Name Role Phone Dionicio Colindreshen Primary Care Provider Reason for Referral * Radiology Services (Routine) - Closed Specialty Diagnoses / Procedures Referred By Contac t Referred To Contact Ultrasound Diagnoses Shotty lymph nodes Procedures US HEAD NECK TISSUES B - SCAN REAL TIME Chilango Langley MD [facility] [address] [address] Referral ID Status Reason Start Date Expiration Date Visits Re quested Visits Authorized [id number] Closed 11/23/2022 11/23/2023 1 1 Reason for Visit * Radiology Services (Routine) - Closed Specialty Diagnoses / Procedures Referred By Reva holbrook Referred To Contact Ultrasound Diagnoses Shotty lymph nodes Procedures US HEAD NECK TISSUES B - SCAN REAL TIME Chilango Langley MD [facility] [address] [facility] [address] [address] Referral ID Status Reason Start Date Expiration Date Visits Re quested Visits Authorized [id number] Closed 11/23/2022 11/23/2023 1 1 Encounter Details Date Type Department Care Team (Latest Contact Info) Description 11/23/2022 9:02 AM CDT - 11/23/2022 11:59 PM CDT Hospital Encounter [facility] Health Imaging Services - Ultrasound [address] [place] [address] Discharge Disposition: Home or Self Care Social [...] with morning and evening meal 11 05/11/2017 predniSONE (Deltasone) 10 MG tablet Take by mouth every 24 hours 07/11/2022 Prenat w/o P-SM-Pwtcuoo-FA-DHA (PNV-DHA PO) Take by mouth once daily [...] Procedure Name Priority Date/Time Associated Diagnosis Comments US SOFT TISSUE HEAD NECK Routine 11/23/2022 10:00 AM CDT Shotty lymph nodes documented in this encounter Results * US HEAD NECK TISSUES B - SCAN REAL TIME (11/23/2022 10:00 AM CDT) Anatomical Region Laterality Modality Head Ultrasound 11/23/2022 11:0 1 AM CDT Narrative 11/23/2022 11:03 AM CDT PROCEDURE: ??US SOFT TISSUE HEAD NECK DATE/TIME OF EXAM: ??11/23/2022 10:00 AM CLINICAL INFORMATION: Neck lymph nodes Indication: R59.9: Enlarged lymph nodes, unspecified Additional History: COMPARISON: CT soft tissue neck October 21, 2020. History on that study with a lump in the right-sided neck for 3 months. History is swollen lymph nodes off and on times many years TECHNIQUE: Ultrasound of the soft tissue neck was performed utilizing standard protocol. Grayscale and color Doppler FINDINGS: There is a subcutaneous nodule right zone to neck measuring 1.5 x 0.3 cm most consistent with a reactive sized small lymph node. The left neck shows no enlarged lymph nodes. When comparing to CT scan there was a reactive sized right level 2 node that is marked as the area of palpable abnormality back in 2020 and measured about 14 x 8 mm. Thus, no interval imaging pathologic lymph nodes have developed. > Interpreting Provider: Jaime Morales MD on 11/23/2022 11:03 AM Procedure Note Jaime Morales MD - 11/23/2022 PROCEDURE: US SOFT TISSUE HEAD NECK DATE/TIME OF EXAM: 11/23/2022 10:00 AM CLINICAL INFORMATION: Neck lymph nodes Indication: R59.9: Enlarged lymph nodes, unspecified Additional History: COMPARISON: CT soft tissue neck October 21, 2020. History on that study with a lump in the right-sided neck for 3 months. History is swollen lymph nodes offand on times many years TECHNIQUE: Ultrasound of the soft tissue neck was performed utilizing standard protocol. Grayscale and color Doppler FINDINGS: There is a subcutaneous nodule right zone to neck measuring 1.5 x 0.3cm most consistent with a reactive sized small lymph node. The left neckshows no enlarged lymph nodes. When comparing to CT scan there was a reactive sized right level 2 node that is marked as the area of palpable abnormality back in 2020 and measured about 14 x 8 mm. Thus, no interval imaging pathologic lymphnodes have developed. > Interpreting Provider: Jaime Morales MD on 11/23/2022 11:03 AM Chilango Langley MD US ORDERABLES documented in this encounter Visit Diagnoses Diagnosis Shotty lymph nodes documented in this encounter Additional Health Concerns Infection Onset Date Last Indicated Resolved Time MRSA 09/24/2020 09/24/2020 documented as of this encounter Care Teams Audio Visual Technician Relationship Specialty Start Date End Date Dionicio Colindres DO [address] [place] [id number] PCP - General Family Medicine 01/03/18 documented as of this encounter
--- OUTSIDE RECORDS SUMMARY | 2024-08-03 01:36 | XMS_ITS | Encounter Summary ---
Author Organization [facility] Health Address [address] [place] [address] Care Team Providers Care Grants Director Name Role Phone Dionicio Colindres DO Primary Care Provider [phone] Encounter Details Date Type Department Care Team (Latest Contact Info) Description 09/24/2020 Travel Social History Tobacco Use Types Packs/Day Years [...] documented as of this encounter Visit Diagnoses Not on filedocumented in this encounter Care Teams Grants Director Relationship Specialty Start Date End Date Dionicio Colindres DO [address] [place] [address] [address] [place] [address] PCP - General Family Medicine 01/03/18 documented as of this encounter
--- OUTSIDE RECORDS SUMMARY | 2024-08-03 01:36 | XMS_ITS | Encounter Summary ---
Author Organization [facility] Health Address [address] [place] [address] Care Team Providers Care Ambulatory Analyst Name Role Phone Dionicio Colindres DO Primary Care Provider Encounter Details Date Type Department Care Team (Latest Contact Info) Description 04/06/2023 Travel Social History Tobacco Use Types Packs/Day [...] Diagnoses Not on filedocumented in this encounter Additional Health Concerns Infection Onset Date Last Indicated Resolved Time MRSA 09/24/2020 09/24/2020 documented as of this encounter Care Teams Ambulatory Analyst Relationship Specialty Start Date End Date Dionicio Colindres DO [address] [place] [address] PCP - General Family Medicine 01/03/18 documented as of this encounter
--- OUTSIDE RECORDS SUMMARY | 2024-08-03 01:36 | XMS_ITS | Encounter Summary ---
Author Organization [facility] Address [address] [place] [address] Care Team Providers Care Stone Carver Name Role Phone Bernadine Dionicio Arnel Primary Care Provider Reason for Visit * Reason Comments Shortness of Breath States she feels lik e she is not getting enough oxygen, unable to sleep last night. Unvaccinated, denies sick contacts. Encounter Details Date Type Department Care Team (Late st Contact Info) Description 08/25/2022 7:44 AM SALES RECRUITER - 08/25/2022 8:19 AM SALES RECRUITER Emergency ER at [address] [id number] SOB (shortness of breath) (Primary Dx) Discharge Disposition: Left Against Medical Advice/Discontinued Care Social History Tobacco Use Types Packs/Day [...] on file documented as of this encounter Last Filed Vital Signs Vital Sign Reading Time Taken Comments Blood Pressure 156/93 08/25/2022 7:43 AM SALES RECRUITER Pulse 86 08/25/2022 7:43 AM SALES RECRUITER Temperature 36.6 ??C (97.9 ??F) 08/25/2022 7:43 AM CS T Respiratory Rate 18 08/25/2022 7:43 AM SALES RECRUITER Oxygen Saturation 100% 08/25/2022 7:43 AM SALES RECRUITER Inhaled Oxygen Concentration - - Weight 86.2 kg (190 lb) 08/25/2022 7:40 AM SALES RECRUITER Height 167.6 cm (5' 6 ) 08/25/2022 7:40 AM SALES RECRUITER Body Mass Index 30.67 08/25/2022 7:40 AM SALES RECRUITER documented in this encounter Functional Status Functional Status Response [...] mouth every 24 hours 07/11/2022 Prenat w/o Y-CO-Mduezsb-FA-DHA (PNV-DHA PO) Take by mouth once daily progesterone micronized (PROMETRIUM) 200 MG capsule Take 200 mg by mouth at bedtime 1 11/16/2017 Pyridoxine HCl (B-6) 50 MG Take 0.5 tablets by mouth once daily 10 tablet 01/03/2018 TRINTELLIX 10 MG tabletIndications:at the same time each day Take 10 mg by mouth once daily Reasons: at the same time each day 1 05/10/2017 zonisamide (ZONEGRAN) 25 MG capsule TAKE 2 CAPSULES BY MOUTH ONCE DAILY 60 capsule 09/04/2018 documented as of this encounter ED Notes * Rian Mccurdy RN - 08/25/2022 8:17 AM CST Patient tearful at triage desk asking to sign herself out, stating she is going to go somewhere else that listens to her . Patient signed AMA form and was ambulatory to ED exit in no apparent distress. LORRIE Camejo and SORAIDA Cullen notified. S RECRUITER * Lisa Lamas RN - 08/25/2022 7:47 AM CST Presents to ED c/o difficulty catching her breath since last night. Pt denies hx of asthma. Denies cough, fever, or chills. Denies any other complaints. Speaking in complete sentences. S RECRUITER * Bashir Carter PA - 08/25/2022 7:41 AM CST [facility] Emergency Department Note History of Present Illness CC: Shortness of Breath (States she feels like she is not getting enough oxygen, unable to sleep last night. Unvaccinated, denies sick contacts. ) , HPI: Vera Vitale is a pleasant 37 year old female with significant past medical history of brain tumor removal, bipolar disorder, anxiety who presents with shortness of breath for 1 day. She describes the onset of her symptoms with she felt a tension headache yesterday which reminded her of events leading up to the removal of a brain tumor. She reports being woken up in the middle night with the inability to breathe. She denies numbness, tingling, nausea, vomiting, diarrhea, chest pain, fever, chills. ? Relevant Medical History Past Medical History: has a past medical history of Arthritis, Bipolar 1 disorder, Depressive disorder, not elsewhere classified, Generalized anxiety disorder, GERD (gastroesophageal reflux disease),Migraine, Overweight, obesity and other hyperalimentation, Polycystic ovaries, Pure hypercholesterolemia, Rash, Skin problem, Tension headache, and Trichomonas (2006). Negative unless noted above Past Surgical History: has a past surgical history that includes tympanoplasty; cholecystectomy; hysteroscopy; section; excision/ destruction tumor/mass (Right, 11/10/14); excision/ destruction tumor/mass (11/10/2014); and brain surgery/procedure (2016). Negative unless noted above Med List: No current facility-administered medications on file prior to encounter. Current Outpatient Medications on File Prior to Encounter Medication Sig Dispense Refill ??? acetaminophen (TYLENOL) 325 MG tablet Take 2 (two) tablets by mouth every 6 hours as needed forPain Maximum allowable Acetaminophen amount = 4 Grams (4000 mg) / 24 hours. 40 tablet 0 ??? albuterol HFA (PROVENTIL;VENTOLIN;PROAIR) 108 (90 BASE) MCG/ACT inhaler Inhale 1 puff by mouth 2 times daily ??? amitriptyline (ELAVIL) 10 MG tablet Take 10 mg by mouth at bedtime ??? buPROPion (WELLBUTRIN) 75 MG tablet Take 150 mg by mouth 3 times daily. ??? busPIRone (BUSPAR) 10 MG tablet Take 10 mg by mouth 3 times daily 1 ??? fddbuqzref-mxtucrmzqawxp-ocxlmsep (FIORICET) 50-325-40 MG tablet TAKE 1 TABLET BY MOUTH EVERY 4HOURS NEEDED FOR HEADACHE 30 tablet 5 ??? dicyclomine (BENTYL) 10 MG capsule Take 10 mg by mouth 3 times daily. ??? doxylamine (UNISOM) 25 MG tablet Take 0.5 tablets by mouth nightly as needed (nausea) If nauseadoes not improve can take BID PRN nausea 15 tablet 0 ??? HYDROmorphone (DILAUDID) 4 MG tablet Take 4 mg by mouth 2 times daily ??? ibuprofen (MOTRIN) 400 MG tablet Take 1 (one) tablet by mouth every 6 hours as needed for Pain 20 tablet 0 ??? L-Methylfolate (DEPLIN) 7.5 MG Take 7.5 mg by mouth once daily ??? lisinopril (PRINIVIL; ZESTRIL) 10 MG tablet Take 1 tablet by mouth once daily 30 tablet 2 ??? meloxicam (MOBIC) 7.5 MG tablet Take 1 tablet by mouth 2 times daily 20 tablet 0 ??? metFORMIN (GLUCOPHAGE) 500 MG tablet Take 500 mg by mouth 2 times daily with morning and evening meal 11 ??? Prenat w/o Z-RZ-Ynvftgu-FA-DHA (PNV-DHA PO) Take by mouth once daily ??? progesterone micronized (PROMETRIUM) 200 MG capsule Take 200 mg by mouth at bedtime 1 ??? Pyridoxine HCl (B-6) 50 MG Take 0.5 tablets by mouth once daily 10 tablet 0 ??? TRINTELLIX 10 MG tablet Take 10 mg by mouth once daily Reasons: at the same time each day 1 ??? zonisamide (ZONEGRAN) 25 MG capsule TAKE 2 CAPSULES BY MOUTH ONCE DAILY 60 capsule 0 Med list reviewed and attached to chart Allergies: Allergies Allergen Reactions ??? Adhesive Sensitivity Can tolerate paper tape ??? Control Pill Form [Other] ??? Sodium Hypochlorite Unknown control pills cause vaginal bleeding Immunizations: There is no immunization history on file for this patient. Not applicable unless noted above Family Hx: Family History Problem Relation Name Age of Onset ??? Diabetes Father ??? Hypercholesterolemia Father ??? Hypertension Father ??? Migraine Father ??? Diabetes Maternal Grandmother ??? Diabetes Brother ??? Hypertension Mother Negative unless noted above Social Hx: Social History Socioeconomic History ??? Marital status: Legally Tobacco Use ??? Smoking status: Former Packs/day: 1.00 Years: 4.00 Pack years: 4.00 Types: Cigarettes Quit date: 06/13/2014 Years since quittin.2 ??? Smokeless tobacco: Never Vaping Use ??? Vaping Use: Never used Substance and Sexual Activity ??? Alcohol use: Yes Comment: occasionally ??? Drug use: Not Currently Types: Marijuana Comment: last week ??? Sexual activity: Yes History source:Patient, nursing notes, and EMS notes when applicable, unless noted above Hx/PE/ROS limited by: none Review of Systems ROS Unless stated in the HPI all other systems were negative Physical Exam Physical Exam Procedure Note: Procedures Studies and Interpretation VS: Patient Vitals for the past 24 hrs: Temp Pulse Resp BP SpO2 08/25/22 0743 97.9 ??F (36.6 ??C) 86 18 156/93 100 % Vitals reviewed: WNL Pulse Ox Interpretation: Saturation: 100% Oxygen Delivery: Room air Interpretation: No hypoxia at this time. Pertinent Labs: Labs Reviewed SARS-COV-2 (COVID-19) FLU A/B RSV PCR RAPID - Normal Narrative: This nucleic acid amplification assay has been authorized by the Food and Drug administration (FDA)under an Emergency??Use Authorization (EUA).?? This test is only authorized for the duration of time the declaration that circumstances exist justifying the authorization of emergency use of in vitrodiagnostic tests for detection of SARS-CoV-2 virus and/or diagnosis of COVID-19 infection under section 564(b)(1) of the Act, 21 U.S.C 360bbb-3 (b)(1), unless the authorization is terminated or revoked sooner. Fact Sheets for this EUA assay are available upon request. HCG URINE QUAL POCT NOTIFICATION CBC W AUTO DIFFERENTIAL COMPREHENSIVE METABOLIC PANEL Images: No orders to display All laboratory and imaging studies independently reviewed by Bashir Carter PA-C. Medical Decision Making and ED Course ED Course / Medical Decision Making MDM Pulse oximetry interpreted by me: Management decisions on this patient encounter were made during the COVID-19 public health emergency. As a result, admission vs discharge decisions have necessarily changed in order to protect patients from nosocomial spread of SARS-CoV-2. The ability to test this patient for the SARS-CoV-2 virus is limited by national supplies and decision to test or not test this patient was made in the light of health system recommendations. Furthermore the risk of admission and discharge was made based on the patient???s presenting symptoms, vital signs, risk of nosocomial infections and resource availability. MDM: VSS Plan My initial assessment is complete. Plan is Orders Placed This Encounter Procedures ??? SARS-COV-2 (COVID-19) FLU A/B RSV PCR RAPID ??? HCG URINE QUAL POCT NOTIFICATION ??? CBC W AUTO DIFFERENTIAL ??? COMPREHENSIVE METABOLIC PANEL Medication management: Medications - No data to display Clinical Impressions as of 08/25/22 0834 SOB (shortness of breath) MDM:the patient significant past medical history of brain tumor removal, bipolar disorder, anxiety who presents with shortness of breath for 1 day. She is afebrile, hemodynamically stable, neurovascularly intact with no focal deficits. Her physical exam was rather benign. Her history was consistentwith generalized anxiety. Unfortunately, the patient left against medical advice prior to a workup being performed. Clinical Impression: Final diagnoses: SOB (shortness of breath) (Primary) New Medications: Discharge Medication List as of 08/25/2022 8:19 AM I have advised the patient to follow-up with: No follow-up provider specified. Disposition: AMA 08/25/2022 7:41 AM All relevant laboratory and imaging studies were interpreted by Bashir Carter PA-C Of note, this document was completed using [employer] dictation software. Please excuse any typographical errors. Bashir Carter PA-C Emergency Medicine 08/25/2022 S RECRUITER Associated attestation - Nii Fuller MD - 08/25/2022 10:17 AM SALES RECRUITER 10:17 AM I was present in the ER for consultation of this patient. Patient not presented or evaluated by me prior to discharge. Note was reviewed briefly. Nii Fuller MD 08/25/2022 10:17 AM documented in this encounter Plan of Treatment Not on file documented as of this encounter Procedures Procedure Name Priority Date/Time Associated Diagnosis Comments SARS-COV-2 (COVID-19) FLU A/B RSV PCR RAPID STAT 08/25/2022 7:46 AM SALES RECRUITER documented in this encounter Results * SARS-COV-2 (COVID-19) FLU A/B RSV PCR RAPID (08/25/2022 7:46 AM SALES RECRUITER) COVID-19 PCR Not detected Not detected 08/25/19 8:26 AM SALES RECRUITER [facility] Influenza A PCR Not detected Not detected 08/25/2022 8:26 AM SALES RECRUITER [facility] Influenza B PCR Not detected Not detected 08/25/2022 8:26 AM SALES RECRUITER [facility] RSV PCR Not detected Not detected 08/25/2022 8:26 AM SALES RECRUITER [facility] Microbiology SPECIMEN FROM NASOPHARYNGEAL STRUCTURE / Unknown Collection / Unknown 08/25/2022 7:46 AM SALES RECRUITER 08/25/2022 7:48 AM SALES RECRUITER [facility] - 08/25/2022 8:26 AM SALES RECRUITER This nucleic acid amplification assay has been authorized by the Food and Drug administration (FDA) under an Emergency??Use Authorization (EUA).?? This test is only authorized for the duration of time the declaration that circumstances exist justifying the authorization of emergency use of in vitro diagnostic tests for detection of SARS-CoV-2 virus and/or diagnosis of COVID-19 infection under section 564(b)(1) of the Act, 21 U.S.C 360bbb-3 (b)(1), unless the authorization is terminated or revoked sooner. Fact Sheets for this EUA assay are available upon request. Bashir [facility] - MICROBIOLOGY O RDERABLES [facility] [address] [place] [address] documented in this encounter Visit Diagnoses Diagnosis SOB (shortness of breath)- Primary Shortness of breath documented in this encounter Additional Health Concerns Infection Onset Date Last Indicated Resolved Time MRSA 09/24/2020 09/24/2020 COVID-19 Under Investigation 08/25/2022 08/25/2022 08/25/2022 8:26 AM SALES RECRUITER documented as of this encounter Care Teams Stone Carver Relationship Specialty Start Date End Date Dionicio Colindres DO [address] [place] [id number] PCP - General Family Medicine 01/03/18 documented as of this encounter
--- OUTSIDE RECORDS SUMMARY | 2024-08-03 01:36 | XMS_ITS | Encounter Summary ---
Author Organization [facility] Health Address [address] [place] [address] Care Team Providers Care Rail Splitter Name Role Phone Bernadine Dionicio Arnel Primary Care Provider Reason for Visit * Reason Onset Date Comments Appointment 01/23/2023 Encounter Details Date Type Department Care Team (Late st Contact Info) Description 01/23/2023 Telephone [facility] - Hematology/Oncology [address] [place] [address] Wendi, Lizett Nash MA Appointment Social History Tobacco Use Types Packs/Day Years [...] No 11/10/2014 documented as of this encounter Miscellaneous Notes * Telephone Encounter - Wendi, Lizett YAMY - 01/23/2023 10:51 AM CDT i call patient to let her know that she has new patient visit with Dr Partida on January @ 1:00pm . I will also mail this information to patient home address as well documented in this encounter Plan of Treatment Not on file documented as of this encounter Visit Diagnoses Not on filedocumented in this encounter Additional Health Concerns Infection Onset Date Last Indicated Resolved Time MRSA 09/24/2020 09/24/2020 documented as of this encounter Care Teams Rail Splitter Relationship Specialty Start Date End Date Dionicio Colindres DO [address] [place] [id number] PCP - General Family Medicine 01/03/18 documented as of this encounter
--- OUTSIDE RECORDS SUMMARY | 2024-08-03 01:36 | XMS_ITS | Encounter Summary ---
Author Organization [facility] Health Address [address] [place] [address] Care Team Providers Care Passenger Train Braker Name Role Phone Dionicio Colindres Primary Care Provider Encounter Details Date Type Department Care Team (Late st Contact Info) Description 11/15/2022 Lab Requisition [facility] [address] [place] [id number] [place] [address] MON [address] [place] [id number] Social History Tobacco Use Types Packs/Day Years [...] Procedure Name Priority Date/Time Associated Diagnosis Comments DERMATOPATHOLOGY Routine 11/14/2022 12:0 0 AM CDT documented in this encounter Results * DERMATOPATHOLOGY (11/14/2022 12:00 AM CDT) Case Report Dermatopathology Report ? Case: [id number] ? Authorizing Provider: ??Matthieu Helms MD ?Collected: ? 11/14/2022 12:00 AM ? Ordering Location: ? [facility] ?Received: ?11/15/2022 09:24 AM ? Pathologist: ? Reinaldo Astudillo MD ? Specimen: ?Skin, right infaorbital cheek ? 3 12:37 PM CDT DERMATOPATHOLOGY LABORATORY Final Diagnosis Specimen A. SKIN, right infaorbital cheek: LARGE CELL ACANTHOMA (D23.9) (see microscopic description) 3 12:37 PM CDT DERMATOPATHOLOGY LABORATORY Clinical History Neoplasm of uncertain behavior of skin, compound nevus of skin, atypical nevus of skin, melanoma of skin 3 12:37 PM CDT DERMATOPATHOLOGY LABORATORY Gross Description Specimen A: Received is one formalin filled container labeled with the patient's name and designated right infaorbital cheek. The specimen consists of a shave biopsy measuring 4x2x1 mm. Jar 0. 3 12:37 PM CDT DERMATOPATHOLOGY LABORATORY Microscopic Description Specimen A. SKIN, right infaorbital cheek: Sections show compact orthokeratosis with acanthosis composed of slightly larger keratinocytes with basal layer hyperpigmentation. Additional deeper sections were obtained and reviewed. 3 12:37 PM CDT DERMATOPATHOLOGY LABORATORY Disclaimer An external and internal positive and negative controls are appropriate for the histochemical, immunohistochemical and immunofluorescence stain(s) in this case (if any), except where stated explicitly. The performance characteristics of the stain(s) cited in this report were developed and its performance characteristic determined by the Dermatopathology Laboratory at [facility], directed by Dr. Kraley Astudillo. These tests need not be, and therefore are not, approved by the [place] Food and Drug Administration. The tests are used for clinical purposes. Billing Codes Specimen Charges Stain Charges 05197 1 3 12:37 PM CDT DERMATOPATHOLOGY LABORATORY Embedded Images 3 12:37 PM CDT DERMATOPATHOLOGY LABORATORY Pathology/Cytolog y TISSUE SPECIMEN FROM SKIN / Unknown 11/14/2022 11/15/2022 9:24 AM CDT Matthieu Helms MD LAB - PATHOLOGY/CY TOLOGY ORDERABLES DERMATOPATHOLOGY LABORATORY [facility] - Department of Dermatology [facility] [address] [place] [address], [address] [phone] documented in this encounter Visit Diagnoses Not on filedocumented in this encounter Additional Health Concerns Infection Onset Date Last Indicated Resolved Time MRSA 09/24/2020 09/24/2020 documented as of this encounter Care Teams Passenger Train Braker Relationship Specialty Start Date End Date Dionicio Colindres DO [address] [place] [address] PCP - General Family Medicine 01/03/18 documented as of this encounter
--- OUTSIDE RECORDS SUMMARY | 2024-08-03 01:36 | XMS_ITS | Encounter Summary ---
Author Organization [facility] Health Address [address] [place] [address] Care Team Providers Care Property Analyst Name Role Phone Dionicio Colindres DO Primary Care Provider [phone] Encounter Details Date Type Department Care Team (Latest Contact Info) Description 03/27/2023 Travel Social History Tobacco Use Types Packs/Day [...] documented as of this encounter Care Teams Property Analyst Relationship Specialty Start Date End Date Dionicio Colindres DO [address] [place] [id number] PCP - General Family Medicine 01/03/18 documented as of this encounter
--- OUTSIDE RECORDS SUMMARY | 2024-08-03 01:36 | XMS_ITS | Encounter Summary ---
Author Organization [facility] Health Address [address] [place] [address] Care Team Providers Care Credit Risk Associate Name Role Phone Dionicio Colindres DO Primary Care Provider Reason for Referral * Radiology Services (Routine) - Closed Specialty Diagnoses / Procedures Referred By Contac t Referred To Contact MRI Diagnoses Chronic right-sided low back pain with right-sided sciatica Procedures MRI LUMBAR SPINE WO CONTRAST Barbara Nguyen PA-C [address] [place] [address] [facility] [address] [address] Referral ID Status Reason Start Date Expiration Date Visits Re quested Visits Authorized [id number] Closed 09/26/2022 09/26/2023 1 1 R OPERATOR Reason for Visit * Radiology Services (Routine) - Closed Specialty Diagnoses / Procedures Referred By Contac t Referred To Contact MRI Diagnoses Chronic right-sided low back pain with right-sided sciatica Procedures MRI LUMBAR SPINE WO CONTRAST Barbara Nguyen PA-C [address] [place] [address] [facility] [address] [facility] [address] [place] [id number] Referral ID Status Reason Start Date Expiration Date Visits Re quested Visits Authorized [id number] Closed 09/26/2022 09/26/2023 1 1 Encounter Details Date Type Department Care Team (Latest Contact Info) Description 10/09/2022 7:17 AM MINER OPERATOR - 10/09/2022 11:59 PM MINER OPERATOR Hospital Encounter [facility] Health Imaging Services - [place] [address] [place], [place] [id number] Discharge Disposition: Home or Self Care Social [...] mouth every 24 hours 07/11/2022 Prenat w/o R-SF-Vibyrio-FA-DHA (PNV-DHA PO) Take by mouth once daily [...] Procedure Name Priority Date/Time Associated Diagnosis Comments MRI LUMBAR SPINE WO CONTRAST Routine 10/09/2022 7:56 AM MINER OPERATOR Chronic right-sided low back pain with right-sided sciatica documented in this encounter Results * MRI LUMBAR SPINE WO CONTRAST (10/09/2022 7:56 AM MINER OPERATOR) Anatomical Region Laterality Modality Spine Magnetic Resonan ce 10/09/2022 9:15 AM MINER OPERATOR Impressions 10/09/2022 9:20 AM MINER OPERATOR IMPRESSION: 1. Left central to subarticular disc extrusion with cranial migration L4-5. This abuts the exiting left L4 nerve root. 2. No right-sided disc herniation or nerve root impingement is identified. 3. Mild spinal canal stenosis at L4-5. Foraminal narrowing on the right L4-5 and bilaterally at L5-S1. > Interpreting Provider: Kodak Ovalle DO on 10/09/2022 9:20 AM Narrative 10/09/2022 9:20 AM MINER OPERATOR EXAM: MRI Lumbar Spine without contrast INDICATION: Chronic right-sided low back pain with sciatica. COMPARISON: None. TECHNIQUE: Multiplanar, multisequence magnetic resonance imaging of the lumbar spine performed without contrast FINDINGS: For purposes of this dictation, the lowest fully formed disc space is considered to be L5-S1. Alignment and curvature is normal. There is no compression fracture. No edema or marrow replacement is noted. Desiccation and loss of disc height favors L3-4, L4-5 and L5-S1. Conus terminates at L2 and is unremarkable. No cord tethering lesion is identified. Review of the axial imaging at each individual disc level shows: L1-L2: Trace bulge and left central annular fissure but no spinal canal, lateral recess or foraminal stenosis. L2-L3: Unremarkable. L3-L4: Annular bulge with shallow central protrusion but no spinal canal, lateral recess or significant foraminal stenosis. L4-L5: Annular disc bulge and accompanying left central to subarticular disc extrusion with cranial migration along the posterior aspect of L4. Rostral aspect of the disc does abut the exiting left L4 nerve root as it enters the foramen (series 7 image 33). There is also slight narrowing of the left lateral recess but without left L5 nerve root. Mild spinal canal and right foraminal stenosis. L5-S1: Annular bulge and shallow left central protrusion but no spinal canal or lateral recess stenosis. Mild foraminal narrowing bilaterally. Paravertebral soft tissues are grossly unremarkable. Tiny T2 hyperintense cortical lesion left kidney probably represents a cyst. The findings are commensurate with its appearance on previous CT from 06/14/2022. Procedure Note Kodak Ovalle DO - 10/09/2022 EXAM: MRI Lumbar Spine without contrast INDICATION: Chronic right-sided low back pain with sciatica. COMPARISON: None. TECHNIQUE: Multiplanar, multisequence magnetic resonance imaging of the lumbar spine performed without contrast FINDINGS: For purposes of this dictation, the lowest fully formed disc space is considered to be L5-S1. Alignment and curvature is normal. There is no compression fracture. No edema or marrow replacement is noted. Desiccation and loss of discheight favors L3-4, L4-5 and L5-S1. Conus terminates at L2 and is unremarkable. No cord tethering lesion is identified. Review of the axial imaging at each individual disc level shows: L1-L2: Trace bulge and left central annular fissure but no spinal canal, lateral recess or foraminal stenosis. L2-L3: Unremarkable. L3-L4: Annular bulge with shallow central protrusion but no spinalcanal, lateral recess or significant foraminal stenosis. L4-L5: Annular disc bulge and accompanying left central to subarticular disc extrusion with cranial migration along the posterior aspect of L4. Rostral aspect of the disc does abut the exiting left L4 nerve root asit enters the foramen (series 7 image 33). There is also slight narrowingof the left lateral recess but without left L5 nerve root. Mild spinalcanal and right foraminal stenosis. L5-S1: Annular bulge and shallow left central protrusion but no spinal canal or lateral recess stenosis. Mild foraminal narrowing bilaterally. Paravertebral soft tissues are grossly unremarkable. Tiny [id number] cortical lesion left kidney probably represents a cyst. The findings are commensurate with its appearance on previous CT from 06/14/2022. IMPRESSION: 1. Left central to subarticular disc extrusion with cranial migrationL4-5. This abuts the exiting left L4 nerve root. 2. No right-sided disc herniation or nerve root impingement isidentified. 3. Mild spinal canal stenosis at L4-5. Foraminal narrowing on the right L4-5 and bilaterally at L5-S1. > Interpreting Provider: Kodak Ovalle DO on 10/09/2022 9:20 AM Provider Unknown MR ORDERABLES documented in this encounter Visit Diagnoses Diagnosis Chronic right-sided low back pain with right-sided sciatica documented in this encounter Additional Health Concerns Infection Onset Date Last Indicated Resolved Time MRSA 09/24/2020 09/24/2020 documented as of this encounter Care Teams Credit Risk Associate Relationship Specialty Start Date End Date Dionicio Colindres DO [address] [place] [address] PCP - General Family Medicine 01/03/18 documented as of this encounter
--- OUTSIDE RECORDS SUMMARY | 2024-08-03 01:36 | XMS_ITS | Encounter Summary ---
Author Organization [facility] Address [address] 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, spleen (HCC) Procedures PET CT SKULL TO MID THIGH Carey Partida MD [address] [facility] HEMATOLOG[facility] & [place] [address] Referral ID Status Reason Start Date Expiration Date Visits Re quested Visits Authorized [id number] Closed 03/27/2023 03/26/2024 1 1 Reason for Visit * Radiology Services (Routine) - Closed Specialty Diagnoses / Procedures Referred By Contac yusef Referred To Contact Hematology-Oncology Diagnoses 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, spleen (HCC) Procedures PET CT SKULL TO MID THIGH Carey Partida MD [address] HEMATOLOGY & [place] [address] Referral ID Status Reason Start Date Expiration Date Visits Re quested Visits Authorized [id number] Closed 03/27/2023 03/26/2024 1 1 Encounter Details Date Type Department Care Team (Late st Contact Info) Description 04/06/2023 6:33 AM CDT - 04/06/2023 6:44 AM CDT Hospital Encounter [facility] PET [address] [place] [address] Carey Partida MD [address] [facility] [place] [address] Discharge Disposition: Home or Self Care Social [...] mouth every 24 hours 07/11/2022 Prenat w/o I-WM-Csvgnof-FA-DHA (PNV-DHA PO) Take by mouth once daily [...] capsule 09/04/2018 documented as of this encounter Progress Notes * Carey Partida MD - 04/06/2023 6:44 AM CDT I left Vera a voice message reassuring her that her PET/CT raises no concerns. I had sent her this info in a [employer] message earlier in the week. Her labs also raise no concerns. I don't think she needs further f/u with us but I asked her to call us back or send us a Movie Mouthhart message so we could close the loop on a plan. 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 No metabolic evidence of FDG avid malignancy. However, mild increased uptake in the right axilla, the site of biopsy-proven disease may represent low FDG avid malignancy versus reactive changes. > Dictated by Hamilton Gan PET/CT fellow > Dictated by Hamilton Gan (Sr. Strategic Sourcing Manager) 04/06/2023 8:12 AM IVadim MD have personally reviewed and interpreted this examination/study. > Interpreting Provider: Vadim Benitez MD on 04/06/2023 4:16 PM Narrative 04/06/2023 4:16 PM CDT PROCEDURE: ??PET CT SKULL TO MID THIGH DATE/TIME OF EXAM: ??04/06/2023 8:09 AM Indication: D47.9: Lymphoproliferative disease (CMS/HCC) C82.57: Diffuse follicle center lymphoma, spleen (CMS/HCC) HISTORY: 37 y/o woman underwent right axillary LN excisional biopsy at that time that showed follicular lymphoid hyperplasia. PET/CT to help guide biopsy. Evaluate for initial treatment strategy. TECHNIQUE: ??10.91 ??mCi of F-18 FDG by IV in the right antecubital fossa. PET/CT image acquisition from top of the head to the mid thigh after approximately ??60 minutes post-injection with the CT being low-dose, non-contrast. No separate report for the CT was used for attenuation correction and anatomic localization. Blood glucose level at the time of injection was 97 mg/dl. Patient's BMI is 35.0 kg/m. COMPARISON: No similar prior FINDINGS: For reference, SUVmax of liver is 3.0. For reference, SUVmax of mediastinal descending thoracic aorta is 2.4. Head and neck: Physiologic brain radiotracer distribution. No abnormal radiotracer avid lymphadenopathy. Chest: The lungs are clear with no evidence of pneumothorax or pleural effusion. No abnormal FDG avid mediastinal nodes. Mild increased FDG activity in the right axilla without significant adenopathy. Slightly increased radiotracer activity in the thymus gland with SUV max 4.1, likely thymic gland. Breast homogenous activity is physiologic consistent with patient age. Abdomen and pelvis: The liver, kidneys, adrenal glands, spleen and pancreas are grossly unremarkable. Gallbladder surgically removed. Heterogeneous FDG uptake is seen throughout the bowel, inflammatory versus normal variant. Benign-appearing bilateral inguinal nodes. Small sized retroperitoneal lymph node located below the left renal hilum without a significantly increased FDG activity. Physiologic increased radiotracer activity within the uterus consistent with patient age for correlation with menstrual cycle. Musculoskeletal: No abnormal FDG avid lytic or sclerotic lesions are identified. Procedure Note Vadim Benitez MD - 04/06/2023 PROCEDURE: PET CT SKULL TO MID THIGH DATE/TIME OF EXAM: 04/06/2023 8:09 AM Indication: D47.9: Lymphoproliferative disease (CMS/HCC) C82.57: Diffuse follicle center lymphoma, spleen (CMS/HCC) HISTORY: 37 y/o woman underwent right axillary LN excisional biopsy atthat time that showed follicular lymphoid hyperplasia. PET/CT to help guide biopsy. Evaluate for initial treatment strategy. TECHNIQUE: 10.91 mCi of F-18 FDG by IV in the right antecubital fossa. PET/CT image acquisition from top of the head to the mid thigh after approximately 60 minutes post-injection with the CT being low-dose, non-contrast. No separate report for the CT was used for attenuation correction and anatomic localization. Blood glucose level at the time of injection was 97 mg/dl. Patient's BMI is 35.0 kg/m. COMPARISON: No similar prior FINDINGS: For reference, SUVmax of liver is 3.0. For reference, SUVmax of mediastinal descending thoracic aorta is 2.4. Head and neck: Physiologic brain radiotracer distribution. No abnormal radiotracer avid lymphadenopathy. Chest: The lungs are clear with no evidence of pneumothorax or pleural effusion. No abnormal FDG avid mediastinal nodes. Mild increased FDG activity in the right axilla without significant adenopathy. Slightly increased radiotracer activity in the thymus gland with SUV max 4.1,likely thymic gland. Breast homogenous activity is physiologic consistent with patient age. Abdomen and pelvis: The liver, kidneys, adrenal glands, spleen andpancreas are grossly unremarkable. Gallbladder surgically removed. HeterogeneousFDG uptake is seen throughout the bowel, inflammatory versus normal variant. Benign-appearing bilateral inguinal nodes. Small sized retroperitoneal lymph node located below the left renal hilum without a significantly increased FDG activity. Physiologic increased radiotracer activitywithin the uterus consistent with patient age for correlation with menstrual cycle. Musculoskeletal: No abnormal FDG avid lytic or sclerotic lesions are identified. IMPRESSION: Thymic activity is within normal. No metabolic evidence of FDG avid malignancy. However, mild increased uptake in the right axilla, the site of biopsy-proven disease mayrepresent low FDG avid malignancy versus reactive changes. > Dictated by Hamilton Gan PET/CT fellow > Dictated by Hamilton Gan (Sr. Strategic Sourcing Manager) 04/06/2023 8:12 AM I, Vadim Benitez MD have personally reviewed and interpreted this examination/study. 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
--- OUTSIDE RECORDS SUMMARY | 2024-08-03 01:36 | XMS_ITS | Encounter Summary ---
Author Organization [facility] Health Address [address] [place] [address] Care Team Providers Care Bedspread Inspector Name Role Phone Bernadine Dionicio Arnel Primary Care Provider Reason for Referral * Radiology Services (Routine) - Closed Specialty Diagnoses / Procedures Referred By Reva holbrook Referred To Contact Diagnoses Localized swelling, mass and lump, neck Procedures CT NECK SOFT TISSUE W Serene Gonzalez MD [address] [phone] Referral ID Status Reason Start Date Expiration Date Visits Re quested Visits Authorized [id number] Closed 10/21/2020 10/21/2021 1 1 ER PITMAN Reason for Visit * Radiology Services (Routine) - Closed Specialty Diagnoses / Procedures Referred By Reva holbrook Referred To Contact CT Scan Diagnoses Localized swelling, mass and lump, neck Procedures CT NECK SOFT TISSUE W Serene Gonzalez MD [address] [phone] Referral ID Status Reason Start Date Expiration Date Visits Re quested Visits Authorized [id number] Closed 10/07/2020 10/07/2021 1 1 Encounter Details Date Type Department Care Team (Latest Contact Info) Description 10/21/2020 11:00 AM CINDER PITMAN - 10/21/2020 11:59 PM CINDER PITMAN Hospital Encounter [facility] Health Imaging Services - CT Scan [address], [address] [place] [address] Serene Garcia MD [address] [place] [id number] Discharge Disposition: Home or Self Care Social [...] with morning and evening meal 11 05/11/2017 Prenat w/o [id number] (PNV-DHA PO) Take by mouth once daily [...] Procedure Name Priority Date/Time Associated Diagnosis Comments CT NECK SOFT TISSUE W CONT Routine 10/21/2020 11:36 AM CINDER PITMAN Localized swelling, mass and lump, neck CREATININE BLOOD - POINT OF CARE (IP) Routine 10/21/2020 11:24 AM CINDER PITMAN Localized swelling, mass and lump, neck documented in this encounter Results * CT NECK SOFT TISSUE W CONT (10/21/2020 11:36 AM CINDER PITMAN) Anatomical Region Laterality Modality Head Computed Tomogra phy 10/21/2020 11:5 2 AM CINDER PITMAN Impressions 10/21/2020 11:58 AM CINDER PITMAN 1. ??No mass, adenopathy or other significant findings. 2. ??Chronic 1 cm lymph node slightly deep to the marker. *Reading Radiologist: Niurka Ewing on 10/21/2020 at 11:58 AM Narrative 10/21/2020 11:[address] neck with contrast DATE: 10/21/2020. INDICATION: Lump in the right side of the neck, persisting for 3 months. TECHNIQUE: Multidetector enhanced neck CT utilizing 80 cc of Isovue-370 intravenously with triplanar reformations. COMPARISONS: Neck CT from 08/09/2019. FINDINGS: A cutaneous marker was placed over the area of symptoms. ??The marker is seen on axial image 62 of series 2. ??Beneath the marker is normal-appearing fatty, vascular and muscular tissue. ??Slightly posterior and deep to the marker there is a 1.0 x 0.9 cm lymph node which is unchanged since 2019. There are scattered bilateral mildly enlarged lymph nodes particularly in levels 2 and 3 which are similar to the prior exam. ??For example in the right the largest node measures 1.5 cm on the left measures 1.9 cm. The cervical airway is patent and midline. ??The tonsils are symmetric and normal in size for the patient's age. ??The epiglottis, soft palate and tongue are normal. ??No retropharyngeal swelling, gas or fluid. The larynx and thyroid are unremarkable. ??Major vascular structures of the neck are patent. The visualized paranasal sinuses and mastoid air cells are clear. ??The globes and retro-orbital soft tissues are normal. The teeth and mandible are unremarkable. Cervical spine vertebral bodies are normally aligned. ??No evidence of significant stenosis. The visualized lung apices are clear. ??Incidentally noted is an azygos lobe. Procedure Note Niurka Ewign MD - 10/21/2020 CT neck with contrast DATE: 10/21/2020. INDICATION: Lump in the right side of the neck, persisting for 3 months. TECHNIQUE: Multidetector enhanced neck CT utilizing 80 cc of Isovue-370 intravenously with triplanar reformations. COMPARISONS: Neck CT from 08/09/2019. FINDINGS: A cutaneous marker was placed over the area of symptoms. The marker is seen on axial image 62 of series 2. Beneath the marker is normal-appearing fatty, vascular and muscular tissue. Slightly posterior and deep to the marker there is a 1.0 x 0.9 cm lymph node which is unchanged since 2019. There are scattered bilateral mildly enlarged lymph nodes particularly in levels 2 and 3 which are similar to the prior exam. For example in the right the largest node measures 1.5 cm on the left measures 1.9 cm. The cervical airway is patent and midline. The tonsils are symmetric and normal in size for the patient's age. The epiglottis, soft palate and tongue are normal. No retropharyngeal swelling, gas or fluid. The larynx and thyroid are unremarkable. Major vascular structures of the neck are patent. The visualized paranasal sinuses and mastoid air cells are clear. The globes and retro-orbital soft tissues are normal. The teeth and mandible are unremarkable. Cervical spine vertebral bodies are normally aligned. No evidence of significant stenosis. The visualized lung apices are clear. Incidentally noted is an azygos lobe. IMPRESSION 1. No mass, adenopathy or other significant findings. 2. Chronic 1 cm lymph node slightly deep to the marker. *Reading Radiologist: Niurka Ewing on 10/21/2020 at 11:58 AM Serene Garcia MD CT ORDERABLES * CREATININE BLOOD - POINT OF CARE (IP) (10/21/2020 11:24 AM CINDER PITMAN) Creatinine POCT 1.03 0.7 - 1.2 mg/dL [facility] POCT TESTING QC Verified Yes Yes [facility] POC T TESTING Blood BLOOD SPECIMEN / Unknown 10/21/2020 11:24 AM CINDER PITMAN Serene Garcia MD LAB - POINT OF DC RE ORDERABLES [facility] POCT TESTING [address] [phone] documented in this encounter Visit Diagnoses Diagnosis Localized swelling, mass and lump, neck Swelling, mass, or lump in head and neck documented in this encounter Administered Medications Inactive Administered Medications - up to 3 most recent administrations Medication Order MAR Action Action Date Dose Rate Site 0.9% NaCl injection 0-10 mL 0-10 mL, Intracatheter, ONCE PRN, Other, Contrast flush, 1 dose, Starting on Nancy 10/21/20 at 1106, Until Nancy 10/21/20 at 1130, For administration with contrast. $ Given 10/21/2020 11:30 AM CINDER PITMAN 10 mL 0.9% NaCl IV Flush Bag 0-250 mL, Intracatheter, ONCE PRN, Contrast flush, 1 dose, Starting on Nancy 10/21/20 at 1106, Until Nancy 10/21/20 at 1130, For administration with contrast $ Given 10/21/2020 11:30 AM CINDER PITMAN 50 mL iopamidol (ISOVUE 370) 76 % contrast Intravenous, CONTRAST ONCE, Starting on Nancy 10/21/20 at 1106, Until 10/22/20 at 0121 $ Given - Contrast 10/21/2020 11:30 AM CINDER PITMAN 80 mL Right Arm documented in this encounter Additional Health Concerns Infection Onset Date Last Indicated Resolved Time MRSA 09/24/2020 09/24/2020 documented as of this encounter Care Teams Bedspread Inspector Relationship Specialty Start Date End Date Dionicio Colindres DO [address] [place] [address] [place] [address] PCP - General Family Medicine 01/03/18 documented as of this encounter
--- OUTSIDE RECORDS SUMMARY | 2024-08-03 01:36 | XMS_ITS | Encounter Summary ---
Author Organization [facility] Address [address] [place] [address] Care Team Providers Care Life Enrichment Specialist Name Role Phone Dionicio Colindres Primary Care Provider [phone] Reason for Visit * Reason Comments Chest Pain CP x1 MO. Hx covid x 1 MO. R neck swelling. Encounter Details Date Type Department Care Team (Late st Contact Info) Description 09/22/2020 11:36 AM SODA FLAKER - 09/22/2020 2:36 PM SODA FLAKER Emergency ER at [facility] [address] [place] [id number] Caden Carlos MD [address] [facility] [address] [place] [address] Chest pain, unspecified type; Chest wall pain; Lymphadenopathy; COVID-19 virus infection Discharge Disposition: Home or Self Care Social [...] Sign Reading Time Taken Comments Blood Pressure 130/75 09/22/2020 1:31 PM SODA FLAKER Pulse 97 09/22/2020 2:18 PM SODA FLAKER Temperature 36.7 ??C (98.1 ??F) 09/22/2020 11:[address] Respiratory Rate 20 09/22/2020 2:18 PM SODA FLAKER Oxygen Saturation 98% 09/22/2020 2:18 PM SODA FLAKER Inhaled Oxygen Concentration - - Weight 112.5 kg (248 lb) 09/22/2020 11:39 AM SODA FLAKER Height 167.6 cm (5' 6 ) 09/22/2020 11:39 AM SODA FLAKER Body Mass Index 40.03 09/22/2020 11:39 AM SODA FLAKER documented in this encounter Functional Status Functional [...] No 11/10/2014 documented as of this encounter Discharge Instructions * Attachments The following attachments cannot be sent through Care Everywhere. * COVID-19 (Coronavirus Disease 2019) (AfterCare(R) Instructions(ER/ED)) (Israeli) * Chest Wall Pain (AfterCare(R) Instructions(ER/ED)) (Israeli) * Chest Pain (AfterCare(R) Instructions(ER/ED)) (Israeli) * Lymphadenopathy (AfterCare(R) Instructions(ER/ED)) (Israeli) documented in this encounter Medications at Time of Discharge [...] and evening meal 11 05/11/2017 Prenat w/o E-PD-Tqdlfku-FA-DHA (PNV-DHA PO) Take by mouth once daily [...] as of this encounter ED Notes * Deidra Luna - 09/22/2020 2:44 PM CST Patient discharged by charge nurse. Charge nurse addressed patients concerns. FLAKER * Deidra Luna - 09/22/2020 1:02 PM CST Roxana drake MD know about sepsis prompts. Per MD continue to monitor. FLAKER * Deidra Luna - 09/22/2020 11:56 AM CST PT presented to ED via ambulance. She came from urgent care. She went to urgent care for chest tightness, R sided neck/face pain, headache, constantly sweating, productive cough and ear pain. Patientstated her lymph node in the right side of her neck is swollen and painful causing throat discomfort and difficulty breathing. Patient had covid August 24, 2020 and she feels all this started then and never got better. Per EMS she was given 324mg of aspirin at 1130. Pt states the aspirin did not help with anything. PTs current b/p is 145/85. We will continue to treat and monitor. FLAKER * Caden Carlos MD - 09/22/2020 11:53 AM CSTAssociated Order(s): EKG 12-LEAD Pre-Procedure Diagnose(s): Chest pain, unspecified type Post-Procedure Diagnose(s): Chest pain, unspecified type Vera Vitale [id number] [facility] EMERGENCY DEPARTMENT History Chief Complaint Patient presents with ??? Chest Pain CP x1 MO. Hx covid x1 MO. R neck swelling. Patient presented with chief complaint of chest discomfort as associated with enlarged lymph node at her neck, that started few weeks ago, after she was diagnosed with COVID-19 infection in August 24, 2020, pain is moderate and intermittent, bilateral in her chest. patient is resting comfortably and does not seem in acute distress. Past Medical History: Diagnosis Date ??? Arthritis ??? Bipolar 1 disorder ??? Depressive disorder, not elsewhere classified ??? Generalized anxiety disorder ??? GERD (gastroesophageal reflux disease) ??? Migraine ??? Overweight, obesity and other hyperalimentation ??? Polycystic ovaries ??? Pure hypercholesterolemia ??? Rash ??? Skin problem ??? Tension headache ??? Trichomonas 2007 treated Past Surgical History: Procedure Laterality Date ??? Brain Surgery/Procedure 2016 ??? Section ??? Cholecystectomy ??? EXCISION/ DESTRUCTION TUMOR/MASS Right 11/10/14 axillary and lymph node biopsy ??? EXCISION/ DESTRUCTION TUMOR/MASS 11/10/2014 EXCISION MASS RIGHT AXILLARY ??? HYSTEROSCOPY ??? Tympanoplasty corrective hearing Family History Problem Relation Name Age of Onset ??? Diabetes Father ??? Hypercholesterolemia Father ??? Hypertension Father ??? Migraine Father ??? Diabetes Maternal Grandmother ??? Diabetes Brother ??? Hypertension Mother Social History Socioeconomic History ??? Marital status: Spouse name: Not on file ??? Number of children: Not on file ??? Years of education: Not on file ??? Highest education level: Not on file Occupational History ??? Not on file Social Needs ??? Financial resource strain: Not on file ??? Food insecurity Worry: Not on file Inability: Not on file ??? Transportation needs Medical: Not on file Non-medical: Not on file Tobacco Use ??? Smoking status: Former Smoker Packs/day: 1.00 Years: 4.00 Pack years: 4.00 Types: Cigarettes Quit date: 06/13/2014 Years since quittin.2 ??? Smokeless tobacco: Never Used Substance and Sexual Activity ??? Alcohol use: Yes Comment: occasionally ??? Drug use: Not Currently Types: Marijuana Comment: last week ??? Sexual activity: Yes Lifestyle ??? Physical activity Days per week: Not on file Minutes per session: Not on file ??? Stress: Not on file Relationships ??? Social connections Talks on phone: Not on file Gets together: Not on file Attends gnosticism service: Not on file Active member of club or organization: Not on file Attends meetings of clubs or organizations: Not on file Relationship status: Not on file ??? Intimate partner violence Fear of current or ex partner: Not on file Emotionally abused: Not on file Physically abused: Not on file Forced sexual activity: Not on file Other Topics Concern ??? Not on file Social History Narrative ??? Not on file Review of Systems Review of Systems Constitutional: Negative for fever. Eyes: Negative for blurred vision and double vision. Respiratory: Negative for cough and wheezing. Cardiovascular: Positive for chest pain. Negative for palpitations. Gastrointestinal: Negative for abdominal pain, diarrhea, heartburn, nausea and vomiting. Skin: Negative for rash. Neurological: Positive for headaches. Negative for dizziness, sensory change, speech change, focal weakness, seizures and loss of consciousness. Psychiatric/Behavioral: Negative for depression and suicidal ideas. All other systems reviewed and are negative. Physical Exam BP 147/85 Pulse 99 Temp 98.1 ??F (36.7 ??C) (Oral) Resp 20 Ht 1.676 m (5' 6 ) Wt 112.5 kg(248 lb) LMP 08/31/2020 SpO2 95% BMI 40.03 kg/m?? Physical Exam Vitals signs and nursing note reviewed. Constitutional: General: She is not in acute distress. Appearance: She is well-developed. HENT: Head: Normocephalic and atraumatic. Eyes: Pupils: Pupils are equal, round, and reactive to light. Neck: Musculoskeletal: Normal range of motion. Cardiovascular: Rate and Rhythm: Normal rate and regular rhythm. Pulmonary: Effort: Pulmonary effort is normal. No respiratory distress. Breath sounds: Normal breath sounds. No wheezing or rales. Abdominal: General: There is no distension. Palpations: Abdomen is soft. Tenderness: There is no abdominal tenderness. Musculoskeletal: Normal range of motion. General: No tenderness. Skin: General: Skin is warm and dry. Neurological: Mental Status: She is alert and oriented to person, place, and time. She is not disoriented. GCS: GCS eye subscore is 4. GCS verbal subscore is 5. GCS motor subscore is 6. Medications Current Outpatient Medications Medication Sig Dispense Refill ??? acetaminophen (TYLENOL) [...] by mouth 3 times daily 1 ??? asibyhpmim-gtbzyublcfyid-aushyqvh (FIORICET) 50-325-40 MG tablet TAKE 1 TABLET [...] and evening meal 11 ??? Prenat w/o U-RM-Hmzcnwu-FA-DHA (PNV-DHA PO) Take by mouth once daily [...] BY MOUTH ONCE DAILY 60 capsule 0 Procedures EKG 12-LEAD Date/Time: 09/22/2020 11:53 AM Performed by: Caden Carlos MD Authorized by: Caden Carlos MD Interpretation: Interpretation: non-specific Rate: ECG rate: 98 ECG rate assessment: normal Rhythm: Rhythm: sinus rhythm QRS: QRS axis: Normal Conduction: Conduction: normal ST segments: ST segments: Normal T waves: T waves: normal Lab/SPO2 Interpretation Hospital Encounter on 09/22/20 TROPONIN I Result Value Ref Range Troponin I <0.010 <0.038 ng/mL CBC W AUTO DIFFERENTIAL Result Value Ref Range WBC 8.4 4.4 - 10.7 x10E9/L WBC Corrected RBC 3.98 3.80 - 5.20 x10E12/L Hemoglobin 8.9 (L) 12.0 - 15.6 gm/dL Hematocrit 28.6 (L) 35.9 - 45.5 % MCV 71.9 (L) 80.7 - 98.3 fl MCH 22.4 (L) 26.7 - 34.0 pg MCHC 31.1 30.8 - 35.9 gm/dL Platelet Count 152 (L) 153 - 416 x10E9/L RDW-CV 16.8 (H) 12.1 - 14.9 % MPV 8.5 (L) 9.4 - 12.9 fl nRBC Auto 0 /100 WBC COMPREHENSIVE METABOLIC PANEL Result Value Ref Range Glucose 92 70 - 105 mg/dL Sodium 134 (L) 136 - 145 mmol/L Potassium 4.2 3.5 - 5.1 mmol/L Chloride 105 98 - 107 mmol/L CO2 18 (L) 23 - 31 mmol/L Calcium 8.6 8.4 - 10.4 mg/dL Anion Gap 11 8 - 18 mmol/L BUN 8 7 - 18.7 mg/dL Creatinine 0.80 0.57 - 1.11 mg/dL Alkaline Phosphatase 495 (H) 40 - 150 U/L ALT 148 (H) 0 - 61 U/L AST 122 (H) 5 - 34 U/L Protein Total 7.9 6.4 - 8.3 gm/dL Albumin 3.9 3.5 - 5.2 gm/dL Bilirubin Total 0.3 0.2 - 1.2 mg/dL eGFR by MDRD >60 >60 mL/min/1.73m2 eGFR by MDRD >60 >60 mL/min/1.73m2 TSH REFLEX FREE T4 Result Value Ref Range TSH 1.310 0.350 - 4.940 uIU/mL HCG BETA BLOOD QUANTITATIVE Result Value Ref Range hCG Quantitative <1.20 mIU/mL XR CHEST PA AND LATERAL Final Result Chest 2 view HISTORY: Chest pain Since 02/12/2010 there's been no change the heart size or mediastinal contours. The pulmonary vascularity and juan are normal. The lungs are clear. The soft tissues and bony thorax are stable. *Reading Radiologist: Hamilton Luna on 09/22/2020 at 12:22 PM Progress Notes ED Course Clinical Impressions as of Sep 22 1346 Chest pain, unspecified type Chest wall pain Lymphadenopathy COVID-19 virus infection Medical Decision Making Orders Placed This Encounter ??? XR CHEST PA AND LATERAL ??? TROPONIN I ??? TROPONIN I ??? CBC W AUTO DIFFERENTIAL ??? COMPREHENSIVE METABOLIC PANEL ??? HCG URINE QUAL POCT NOTIFICATION ??? TSH REFLEX FREE T4 ??? HCG BETA BLOOD QUANTITATIVE ??? DIFFERENTIAL MANUAL ??? OXYGEN ??? EKG 12-LEAD ??? AND Linked Order Group ??? 0.9% NaCl injection 3 mL ??? 0.9% NaCl injection 1-10 mL ??? DISCONTD: aspirin chew tablet 324 mg ??? DISCONTD: nitroGLYCERIN (NITROSTAT) tablet 0.4 mg ??? ketorolac (TORADOL) injection 30 mg ??? acetaminophen (TYLENOL) tablet 650 mg ??? ibuprofen (MOTRIN) 400 MG tablet ??? acetaminophen (TYLENOL) 325 MG tablet Follow-up Information Follow-up With Details Why Contact Info Dionicio Colindres, Schedule an appointment as soon as possible for a visit in [address] [place] [address] [facility] [address] Hector Sanchez MD Schedule an appointment as soon as possible for a visit in [address] [place] [id number] User Date/Time Caden Carlos MD SunSep 22, 2020 1:44 PM 1:45 PM: Rechecked patient - patient is resting comfortably and feeling better. I discussed the results of diagnostic studies, my clinical impression, and the plan for further treatment with the patient. Patient agrees with plan and discharge at this time, all questions addressed. Patient is medically stable for discharge at this time. I have given the patient instructions regarding her diagnosis, expectations, follow up, and return precautions. I explained to the patient that emergent conditions may arise and to return to the ER for new, worsening, or any persistent conditions. I've explained the importance of following up with PCP as instructed. The patient verbalized understanding of the discharge instructions. Vitals prior to discharge: Blood pressure 147/85, pulse 99, temperature 98.1 ??F (36.7 ??C), temperature source Oral, resp. rate 20, height 1.676 m (5' 6 ), weight 112.5 kg (248 lb), last menstrual period 08/31/2020, SpO2 95 %, unknown if currently . New Medications: New Prescriptions ACETAMINOPHEN (TYLENOL) 325 MG TABLET Take 2 (two) tablets by mouth every 6 hours as needed for Pain Maximum allowable Acetaminophen amount = 4 Grams (4000 mg) / 24 hours. IBUPROFEN (MOTRIN) 400 MG TABLET Take 1 (one) tablet by mouth every 6 hours as needed for Pain I have advised the patient to follow-up with: Dionicio Colindres DO [address] [facility] [address] Schedule an appointment as soon as possible for a visit in 2 days Hector Sanchez MD [address] [address] Schedule an appointment as soon as possible for a visit in 2 days Disposition: Discharged FLAKER documented in this encounter Plan of Treatment Not on file documented as of this encounter Procedures Procedure Name Priority Date/Time Associated Diagnosis Comments CARDIAC EKG ORDER 09/24/2020 1:0 8 AM SODA FLAKER CARDIAC EKG ORDER 09/24/2020 12: 37 AM SODA FLAKER PATHOLOGY PERIPHERAL SMEAR REVIEW STAT 09/22/2020 12:40 PM SODA FLAKER DIFFERENTIAL MANUAL STAT 09/22/2020 1 2:40 PM SODA FLAKER CBC W AUTO DIFFERENTIAL STAT 09/22/2020 12:40 PM SODA FLAKER TSH REFLEX FREE T4 STAT 09/22/2020 12 :18 PM SODA FLAKER TROPONIN I STAT 09/22/2020 12:18 PM SODA FLAKER COMPREHENSIVE METABOLIC PANEL STAT 09/22/2020 12:18 PM SODA FLAKER HCG BETA BLOOD QUANTITATIVE Add on 09/22/2020 12:18 PM SODA FLAKER XR CHEST 2VW STAT 09/22/2020 12:17 PM SODA FLAKER Chest pain, unspecified type EKG 12-LEAD STAT 09/22/2020 11:44 AM SODA FLAKER Chest pain, unspecified type documented in this encounter Results * CARDIAC EKG ORDER (09/24/2020 1:08 AM SODA FLAKER) Narrative 09/24/2020 1:08 AM SODA FLAKER Ordered by an unspecified provider. Scanned Document CARDIAC SERVICES ORD ERABLES * CARDIAC EKG ORDER (09/24/2020 12:37 AM SODA FLAKER) Narrative 09/24/2020 12:37 AM SODA FLAKER Ordered by an unspecified provider. Scanned Document CARDIAC SERVICES ORD ERABLES * PATHOLOGY PERIPHERAL SMEAR REVIEW (09/22/2020 12:40 PM SODA FLAKER) Case Report Pathology Interpretation Report ? Case: [id number] ? Authorizing Provider: ??Caden Carlos MD ?Collected: ? 09/22/2020 12:40 PM ? Ordering Location: ? [facility] ?? Received: ?09/22/2020 02:15 PM ? Emergency Department ? Pathologist: ? Toan Tellez MD ? Specimen: ?Blood ? 09/23/2020 10:40 AM [facility] Final Diagnosis Peripheral blood: Anemia, hypochromic microcytic. Lymphocytosis with atypical lymphocytes (see comment). Comment: Iron deficiency anemia should be clinically rule out as the underlying cause of this patient's hypochromic microcytic anemia. The atypical lymphocytes described can be related to this patient's recent COVID infection. However would follow-up is required. If persistent further assessment by flow cytometry is suggested. 09/23/2020 10:40 AM [facility] Clinical History 35-year-old patient with recent history of COVID infection and lymphadenopathy. 09/23/2020 10:40 AM [facility] Peripheral Smear Description Review of the peripheral smear shows hypochromic microcytic red blood cells with occasional ovalocytes. Platelets are adequate. Leukocytes are present in adequate number with atypical lymphocytes noted. These lymphocytes are predominantly small, with irregular indented nuclei, coarse chromatin pattern, and inconspicuous nucleoli. 09/23/2020 10:40 AM [facility] Blood BLOOD SPECIMEN / Unknown Venipuncture / Unknown 09/22/2020 12:40 PM SODA FLAKER 09/22/2020 2:15 PM SODA FLAKER Caden Carlos MD LAB - PATHOLOGY/CYTO LOGY ORDERABLES Performing Organization Address City/State/[facility] Co de Phone Number [facility] [address] [place] [address] * (ABNORMAL) DIFFERENTIAL MANUAL (09/22/2020 12:40 PM SODA FLAKER) WBC Auto 8.4 x10E9/L 09/23/2020 1:28 PM [facility] WBC Corrected 09/23/2020 1:28 PM [facility] nRBC 09/23/2020 1:28 PM [facility] Neutrophil % Manual 51 44 - 73 % 09/23/2020 1:28 PM [facility] Lymphocytes % Manual 20 20 - 43 % 09/23/2020 1:28 PM [facility] Monocytes % Manual 5 5 - 13 % 09/23/2020 1:28 PM [facility] Atypical Lymphocyte % Manual 23(H) <=0 % 09/23/2020 1:28 PM [facility] [place] Manual 1(H) <=0 % 09/23/2020 1:28 PM [facility] Cells Counted 100 # cells 09/23/2020 1:28 PM [facility] Path Review Hematology Slide sent for Path review 09/23/2020 1:28 PM [facility] Platelet Estimation Adequate platelets Normal, Adequate platelets 09/23/2020 1:28 PM [facility] WBC Morph Normal 09/23/2020 1:28 PM [facility] Anisocytosis 1+(A) None 09/23/2020 1:28 PM [facility] Hypochromia 1+(A) None 09/23/2020 1:28 PM [facility] Comment:This is an appended report. These results have been appended to a previously preliminary verified report. Microcytosis 1+(A) None 09/23/2020 1:28 PM [facility] Comment:This is an appended report. These results have been appended to a previously preliminary verified report. Blood BLOOD SPECIMEN / Unknown Venipuncture / Unknown 09/22/2020 12:40 PM SODA FLAKER 09/22/2020 12:48 PM SODA FLAKER Caden Carlos MD LAB - HEMATOLOGY ORD ERABLES [facility] [address] [place] [address] * (ABNORMAL) CBC W AUTO DIFFERENTIAL (09/22/2020 12:40 PM SODA FLAKER) [facility] Signature WBC 8.4 4.4 - 10.7 x10E9/L 09/22/2020 12:56 PM [facility] WBC Corrected 09/22/2020 12:56 PM [facility] RBC 3.98 3.80 - 5.20 x10E12/L 09/22/2020 12:56 PM [facility] Hemoglobin 8.9(L) 12.0 - 15.6 gm/dL 09/22/2020 12:56 PM [facility] Hematocrit 28.6(L) 35.9 - 45.5 % 09/22/2020 12:56 PM [facility] MCV 71.9(L) 80.7 - 98.3 fl 09/22/2020 12:56 PM [facility] MCH 22.4(L) 26.7 - 34.0 pg 09/22/2020 12:56 PM [facility] MCHC 31.1 30.8 - 35.9 gm/dL 09/22/2020 12:56 PM [facility] Platelet Count 152(L) 153 - 416 x10E9/L 09/22/2020 12:56 PM [facility] RDW-CV 16.8(H) 12.1 - 14.9 % 09/22/2020 12:56 PM [facility] MPV 8.5(L) 9.4 - 12.9 fl 09/22/2020 12:56 PM [facility] nRBC Auto 0 /100 WBC 09/22/2020 12:56 PM [facility] Blood BLOOD SPECIMEN / Unknown Venipuncture / Unknown 09/22/2020 12:40 PM SODA FLAKER 09/22/2020 12:[address] [facility] Caden Carlos MD LAB - HEMATOLOGY ORD ERABLES [facility] [address] [place] [address] * HCG BETA BLOOD QUANTITATIVE (09/22/2020 12:18 PM SODA FLAKER) hCG Quantitative <1.20 mIU/mL 09/22/19 21 1:06 PM SODA FLAKER [facility] Blood BLOOD SPECIMEN / Unknown Venipuncture / Unknown 09/22/2020 12:18 PM SODA FLAKER 09/22/2020 12:28 PM SODA FLAKER Narrative [facility] - 09/22/2020 1:06 PM SODA FLAKER ? hCG Reference Range, mIU/mL: ? Males ? 0-2.0 ? Non Females ? 0-6.0 ? Perimenopausal Females ages 41-55* ?0-7.7 ? Postmenopausal Females age >55* ? 0-14 ? Females, Weeks after Last Menstrual Period ?0.2-1 week ? 5-50 ?1 - 2 weeks ?50-500 ?2 - 3 weeks ?100-5000 ?3 - 4 weeks ?500-10,000 ?4 - 5 weeks ?1000-50,000 ?5 - 6 weeks ?10,000-100,000 ?6 - 8 weeks ?15,000-200,000 ?2 - 3 months ? 10,000-100,000 ?Trophoblastic Disease ?>100,000 *In higher than expected hCG in females > age 40, a serum FSH >20 IU/L makes unlikely. Caden Carlos MD LAB - CHEMISTRY ELIZA LINTON Performing Organization Address [facility] Co de Phone Number [facility] [address] [place] [address] * TSH REFLEX FREE T4 (09/22/2020 12:18 PM SODA FLAKER) Pathologist [facility] [place] TSH 1.310 0.350 - 4.940 uIU/mL 09/22/2020 1:06 PM SODA FLAKER [facility] Blood BLOOD SPECIMEN / Unknown Venipuncture / Unknown 09/22/2020 12:18 PM SODA FLAKER 09/22/2020 12:28 PM SODA FLAKER Caden Carlos MD LAB - CHEMISTRY ELIZA LINTON Performing Organization Address [facility] Co de Phone Number [facility] [address] [place] [address] * (ABNORMAL) COMPREHENSIVE METABOLIC PANEL (09/22/2020 12:18 PM SODA FLAKER) Pathologist [facility] [place] Glucose 92 70 - 105 mg/dL 09/22/2020 12:45 PM [facility] Sodium 134(L) 136 - 145 mmol/L 09/22/2020 12:[address] [facility] Potassium 4.2 3.5 - 5.1 mmol/L 09/22/2020 12:45 PM [facility] Chloride 105 98 - 107 mmol/L 09/22/2020 12:45 PM [facility] CO2 18(L) 23 - 31 mmol/L 09/22/2020 12:45 PM [facility] Calcium 8.6 8.4 - 10.4 mg/dL 09/22/2020 12:45 PM SODA FLAKER [facility] Anion Gap 11 8 - 18 mmol/L 09/22/2020 12:45 PM SODA FLAKER [facility] Comment:Attention clinician: ??Reference Range change. BUN 8 7 - 18.7 mg/dL 09/22/2020 12:45 PM [facility] Creatinine 0.80 0.57 - 1.11 mg/dL 09/22/2020 12:45 PM SODA FLAKER [facility] Alkaline Phosphatase 495(H) 40 - 150 U/L 09/22/2020 12:45 PM SODA FLAKER [facility] Comment:Attention clinician: ??Reference Range change. ALT 148(H) 0 - 61 U/L 09/22/2020 12:45 PM SODA FLAKER [facility] AST 122(H) 5 - 34 U/L 09/22/2020 12:45 PM [facility] Protein Total 7.9 6.4 - 8.3 gm/dL 09/22/2020 12:45 PM SODA FLAKER [facility] Albumin 3.9 3.5 - 5.2 gm/dL 09/22/2020 12:45 PM [facility] Bilirubin Total 0.3 0.2 - 1.2 mg/dL 09/22/2020 12:45 PM SODA FLAKER [facility] Comment:Attention clinician: ??Reference Range change. eGFR by MDRD >60 >60 mL/min/1.7 3m2 09/22/2020 12:45 PM [facility] eGFR by MDRD >60 >60 mL/min/1.7 3m2 09/22/2020 12:45 PM [facility] Blood BLOOD SPECIMEN / Unknown Venipuncture / Unknown 09/22/2020 12:18 PM SODA FLAKER 09/22/2020 12:28 PM SODA FLAKER Caden Carlos MD LAB - CHEMISTRY ORDBrett LINTON [facility] Organization Address City/State/ZIP Co de Phone Number [facility] [address] [place] [address] * TROPONIN I (09/22/2020 12:18 PM SODA FLAKER) Troponin I <0.010 <0.038 ng/mL 09/22/2020 12:51 PM SODA FLAKER [facility] Blood BLOOD SPECIMEN / Unknown Venipuncture / Unknown 09/22/2020 12:18 PM SODA FLAKER 09/22/2020 12:28 PM SODA FLAKER Caden Carlos MD LAB - CHEMISTRY ELIZA CORNEJODAVID [facility] [address] [place] [address] * XR CHEST PA AND LATERAL (09/22/2020 12:17 PM SODA FLAKER) Anatomical Region Laterality Modality Chest Radiographic Sherrie ging 09/22/2020 12:2 1 PM SODA FLAKER Narrative 09/22/2020 12:22 PM SODA FLAKER Chest 2 view HISTORY: Chest pain Since 02/12/2010 there's been no change the heart size or mediastinal contours. The pulmonary vascularity and juan are normal. The lungs are clear. The soft tissues and bony thorax are stable. *Reading Radiologist: Hamilton Luna on 09/22/2020 at 12:22 PM Procedure Note Hamilton Luna MD - 09/22/2020 Chest 2 view HISTORY: Chest pain Since 02/12/2010 there's been no change the heart size or mediastinal contours. The pulmonary vascularity and juan are normal. The lungs are clear. The soft tissues and bony thorax are stable. *Reading Radiologist: Hamilton [place] on 09/22/2020 at 12:22 PM Caden Carlos MD DIAGNOSTIC IMAGING O RDERABLES * EKG 12-LEAD (09/22/2020 11:44 AM [facility]) Ventricular Rate 98 BPM [facility] Atrial Rate 98 BPM [facility] P-R Interval 104 ms [facility] QRS Duration ms 68 ms [facility] Q-T Interval ms 346 ms [facility] QTC Calculation (Bezet) 441 ms [facility] Calculated P [place] 59 degrees [facility] Calculated R [place] 40 degrees [facility] Calculated T [place] 46 degrees [facility] Interpretation EKG SINUS RHYTHM WITH SHORT [place] OTHERWISE NORMAL ECG NO PREVIOUS ECGS AVAILABLE Confirmed by Juan Carlos Fish ([id number]) on 09/23/2020 7:10:23 AM [facility] 09/22/2020 11:4 4 AM [facility] 09/23/2020 7:10 AM [facility] Caden Carlos MD ECG ORDERABLES [facility] MUSE documented in this encounter Visit Diagnoses Diagnosis Chest pain, unspecified type Chest wall pain Painful respiration Lymphadenopathy Enlargement of lymph nodes COVID-19 virus infection documented in this encounter Administered Medications Inactive Administered Medications - up to 3 most recent administrations Medication Order MAR Action Action Date Dose Rate Site 0.9% NaCl injection 1-10 mL 1-10 mL, Intracatheter, PRN, Other, peripheral line flush, Starting on Sun09/22/20 at 1143, Until Sun09/22/20 at 1546, Flush peripheral IV catheter with 1-10 mL of normal saline before and after medications and prn to clear blood from the line or to verify patency. 0.9% NaCl injection 3 mL 3 mL, Intracatheter, EVERY 8 HOURS, First dose on Sun09/22/20 at 1400, Until Discontinued, Flush peripheral IV catheter with 3 mL of normal saline every 8 hours. acetaminophen (TYLENOL) tablet 650 mg 650 mg, Oral, NOW, 1 dose, On Sun09/22/20 at 1215 $ Given 09/22/2020 1:28 PM [facility] 650 mg ketorolac (TORADOL) injection 30 mg 30 mg, Intravenous, NOW, 1 dose, On Sun09/22/20 at 1215 $ Given 09/22/2020 1:29 PM [facility] 30 mg documented in this encounter Active and Recently Administered Medications Times are shown in [facility]. Scheduled Medication Order 09/20/2020 09/21/2020 09/22/2020 0.9% NaCl injection 3 mL(Linked Group 1) 3 mL, Intracatheter, EVERY 8 HOURS, First dose on Sun09/22/20 at 1400, Until Discontinued, Flush peripheral IV catheter with 3 mL of normal saline every 8 hours. 1400 (Due) acetaminophen (TYLENOL) tablet 650 mg (COMPLETED) 650 mg, Oral, NOW, 1 dose, On Sun09/22/20 at 1215 1328 ($ Given - Prov ider: Deidra Luna) ketorolac (TORADOL) injection 30 mg (COMPLETED) 30 mg, Intravenous, NOW, 1 dose, On Sun09/22/20 at 1215 1329 ($ Given - Prov ider: Deidra Luna) PRN Medication Order 09/20/2020 09/21/2020 09/22/2020 0.9% NaCl injection 1-10 mL(Linked Group 1) 1-10 mL, Intracatheter, PRN, Other, peripheral line flush, Starting on Sun09/22/20 at 1143, Until Sun09/22/20 at 1546, Flush peripheral IV catheter with 1-10 mL of normal saline before and after medications and prn to clear blood from the line or to verify patency. Linked Groups Order Group 1: SALINE LOCK, INSERT AND MAINTAIN (CANCELED) Routine, CONTINUOUS, Starting on Sun09/22/20 at 1145, Until Specified, New collection And 0.9% NaCl injection 3 mLJump to med 3 mL, Intracatheter, EVERY 8 HOURS, First dose on Sun09/22/20 at 1400, Until Discontinued, Flush peripheral IV catheter with 3 mL of normal saline every 8 hours. And 0.9% NaCl injection 1-10 mLJump to med 1-10 mL, Intracatheter, PRN, Other, peripheral line flush, Starting on Sun09/22/20 at 1143, Until Sun09/22/20 at 1546, Flush peripheral IV catheter with 1-10 mL of normal saline before and after medications and prn to clear blood from the line or to verify patency. documented in this encounter Care Teams [employer] Specialist Relationship Specialty Start Date End Date Dionicio Colindres DO [address] [place] [id number] PCP - General Family Medicine 01/03/18 documented as of this encounter
--- OUTSIDE RECORDS SUMMARY | 2024-08-03 01:36 | XMS_ITS | Encounter Summary ---
Author Organization [facility] Address [address] 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 [place] [address] Referral ID Status Reason Start Date Expiration Date Visits Re quested Visits Authorized [id number] Closed 03/27/2023 03/26/2024 1 1 Reason for Visit * Reason Comments Establish Care New patient Encounter Details Date Type Department Care Team (Late st Contact Info) Description 03/27/2023 3:00 PM CDT Office Visit [facility] - Hematology/Oncolo gy [address] [place] [phone] Carey Partida MD [address] [facility] [place] [address] Lymphoproliferative disease (HCC) (Primary Dx); Diffuse follicle center lymphoma, spleen (HCC); Lymphadenopathy Social History Tobacco Use Types Packs/Day Years [...] 03/27/2023 3:17 PM CD T Respiratory Rate - - Oxygen Saturation 99% 03/27/2023 3:17 PM CDT Inhaled Oxygen Concentration - - Weight 95.3 kg (210 lb 1.6 oz) 03/27/2023 3:17 P M CDT Height 165 cm (5' 4.96 ) 03/27/2023 3:17 PM CDT Body Mass Index 35 03/27/2023 3:17 PM CDT documented in this encounter Functional Status Functional [...] No 11/10/2014 documented as of this encounter Progress Notes * Carey Partida MD - 03/27/2023 4:18 PM CDT I have seen and examined the patient with the resident and I agree with the findings and plan of care as documented by the resident/fellow. Date of Service: 03/27/23 Additional notes by me include: Vera is a 37 y/o woman referred for evaluation of persistent adenopathy Adenopathy was first noted in 2014 and she underwent right axillary LN excisional biopsy at that time that showed follicular lymphoid hyperplasia She's had waxing and waning adenopathy since Has had intermittent finding of atypical lymphocytes on CBC diff In 2020, joint pains possibly lead to a rheum work-up In 2021, she established with Dr. Chilango Langley (Rheum) and was given a diagnosis of psoriatic arthritis She started prednisone 10mg QD around Fall 2021, this was increased to 30mg QD about 3 months laterand she's remained on that prednisone dose since She was also started on golimumab and leflunomide None of these new meds have helped her pain She notes that MTX helped her pain but she had to be taken off due to LFT elevations Since starting the rheum regimen, inguinal lymph nodes have regressed but she notes worsening splenomegaly, right cervical and right axillary adenopathy She's also had a 100 pound unintentional weight loss over the past 2 years CBC/CMP from 09/2021 reviewed, no acute concerns Per PCP, recent labs were done but I can't see results Review of chart shows below path: Component Final Diagnosis Specimen A. SKIN, right infaorbital cheek: LARGE CELL ACANTHOMA (D23.9) (see microscopic description) at 1237 Component Final Diagnosis 1. ??Right axillary lymph node, excision: -- ??Reactive follicular hyperplasia 2. ?? Right axillary tissue, resection: -- ??Skin and mature adipose tissue (see microscopic) AB/vr at 1614 Last cross-sectional imaging that I can see are: CT A/P from 06/14/22, spleen size is not reported: Findings: The cardiac chambers are normal. The lung volumes are low. The liver, pancreas and adrenal glands are normal appearing. The patient is status post cholecystectomy. The spleen is enlarged but stable to prior. The kidneys, ureters and bladder appear normal. The loops of bowel are normal without obstruction or perforation. Bilateral ovarian cysts are noted. There are 2 cysts seen on the left ovary. The largest measures 3.9 x 3.2 cm. These appear simple. No free fluid, abnormal lymph nodes or free air noted. Abdominal vasculature is normal. The abdominal wall is intact. No skeletal lesions are identified. ? IMPRESSION: No acute abdominal or pelvic pathology noted. ?? Bilateral ovarian cysts left greater than right. CT neck from 10/21/20: 1. No mass, adenopathy or other significant findings. 2. Chronic 1 cm lymph node slightly deep to the marker. Vera is referred for evaluation of adenopathy While I don't palpate clear cut right cervical or right axillary adenopathy, the report of the splenic enlargement and prior adenopathy is a concern, especially combined with unintentional weight loss and a rheumatologic history in someone on immunosuppressive therapy Plan: -Obtain records from Dr. Langley to understand exact underlying rheum diagnosis -If suboptimally responding, lymph nodes could be reactive -Plan PET/CT to help guide biopsy which will likely be needed given evolution of symptoms over past8 years -Obtain labs with PET/CT (CBC, CMP, LDH, uric acid, HIV Ab, EBV PCR) -We can add Rheum labs if appropriate based on review of Dr. Langley's notes -Complete PET on 04/04/23 and plan further f/u accordingly -We have tentatively scheduled a f/u visit on 04/24/23 CC: New PCP - Dr. Daisha Staley Rheum - Dr. Chilango Langley A total of 75 minutes was spent on the date of service performing any of the following: preparing to see the patient, obtaining history and performing exam, independently interpreting tests and communicating results, counseling and educating the patient/family/caregiver, ordering medications and diagnostic studies, documenting in the health record, and care coordination. Carey Partida MD MSc cryptographic center specialist Director of Bone Marrow Transplant and Cellular Therapy [facility] * Eb Maguire MD - 03/27/2023 3:00 PM CDT [facility] Date: 03/27/2023 Patient: Vera Vitale Oncologist: Dr Partida Primary-Care Provider: Dionicio Colindres DO Chief Complaint/Reason for Visit: Lymphadenopathy History of Present Illness/Interval History: Vera Vitale is a 37 year old female with PMH of chronic Low back pain,psoriatic arthrithis, Fe deficiency anemia, collid cyst s/p craniotomy and resection on 03/2017.She was referred to for evaluation of her lymphadenopathy. Patient reports in 2014, she noticed a right axillary lymphadenopathy and subseuently underwent an excision LN biopsy which revealed follicular hyperplasia. Since then, she has had on-and- off LAD. She also reportedly lost about 100 pounds within 6 months in 2020 andwas referred to rheumatology who did some some work up and diagnosed her with psoriatic arthritis. She was started on MTX and noticed reduction in the size of her LN however, MTX was d/c due to abnormal liver function test. She was switched to prednisone( since 2021), Leflunomide and Golimumab. Heringuinal LN resolved on these medication however, her right cervical LN have been persistent. She states that lab workup in 2020 also showed atypical lymphocytes, although this was when she was diagnosed with covid -19 infection. She has had another lab studies which also showed same. She denies any night sweats, fever, prior known history of EBV, HIV or recent travel hx. Oncologic History: NA ECOG : 1 Past Medical History: Past Medical History: Diagnosis Date ??? Arthritis ??? Bipolar 1 disorder (CMS/HCC) ??? Depressive disorder, not elsewhere classified ??? Generalized anxiety disorder ??? GERD (gastroesophageal reflux disease) ??? Migraine ??? Overweight, obesity and other hyperalimentation ??? Polycystic ovaries ??? Pure hypercholesterolemia ??? Rash ??? Skin problem ??? Tension headache ??? Trichomonas 2007 treated Past Surgical History: Past Surgical History: Procedure Laterality Date ??? Brain Surgery/Procedure 2016 ??? Section ??? Cholecystectomy ??? EXCISION/ DESTRUCTION TUMOR/MASS Right 11/10/14 axillary and lymph node biopsy ??? EXCISION/ DESTRUCTION TUMOR/MASS 11/10/2014 EXCISION MASS RIGHT AXILLARY ??? HYSTEROSCOPY ??? Tympanoplasty corrective hearing Social History: Social History Tobacco Use ??? Smoking status: Former Packs/day: 1.00 Years: 4.00 Pack years: 4.00 Types: Cigarettes Quit date: 06/13/2014 Years since quittin.7 ??? Smokeless tobacco: Never Vaping Use ??? Vaping Use: Never used Substance Use Topics ??? Alcohol use: Yes Comment: occasionally Family History: Family History Problem Relation Name Age of Onset ??? Diabetes Father ??? Hypercholesterolemia Father ??? Hypertension Father ??? Migraine Father ??? Diabetes Maternal Grandmother ??? Diabetes Brother ??? Hypertension Mother Allergies: Allergies Allergen Reactions ??? Adhesive Sensitivity Can tolerate paper tape ??? Control Pill Form [Other] ??? Sodium Hypochlorite Unknown control pills cause vaginal bleeding Home Medications: Current Outpatient Medications Medication Sig ??? acetaminophen (TYLENOL) 325 MG tablet Take 2 (two) tablets by mouth every 6 hours as needed forPain Maximum allowable Acetaminophen amount = 4 Grams (4000 mg) / 24 hours. ??? albuterol HFA (PROVENTIL;VENTOLIN;PROAIR) 108 (90 BASE) MCG/ACT inhaler Inhale 1 (one) puff by mouth 2 times daily ??? amitriptyline (ELAVIL) 10 MG tablet Take 10 mg by mouth at bedtime (Patient not taking: Reported on 03/27/2023) ??? buPROPion (WELLBUTRIN) 75 MG tablet Take 150 mg by mouth 3 times daily. (Patient not taking: Reported on 03/27/2023) ??? busPIRone (BUSPAR) 10 MG tablet Take 10 mg by mouth 3 times daily (Patient not taking: Reportedon 03/27/2023) ??? enesgdeksi-vccyuksrbrunk-jzhtyyee (FIORICET) 50-325-40 MG tablet TAKE 1 TABLET BY MOUTH EVERY 4HOURS NEEDED FOR HEADACHE ??? dicyclomine (BENTYL) 10 MG capsule Take 10 mg by mouth 3 times daily. (Patient not taking: Reported on 03/27/2023) ??? doxylamine (UNISOM) 25 MG tablet Take 0.5 tablets by mouth nightly as needed (nausea) If nauseadoes not improve can take BID PRN nausea (Patient not taking: Reported on 03/27/2023) ??? HYDROmorphone (DILAUDID) 4 MG tablet Take 4 mg by mouth 2 times daily (Patient not taking: Reported on 03/27/2023) ??? ibuprofen (MOTRIN) 400 MG tablet Take 1 (one) tablet by mouth every 6 hours as needed for Pain ??? L-Methylfolate (DEPLIN) 7.5 MG Take 7.5 mg by mouth once daily ??? lisinopril (PRINIVIL; ZESTRIL) 10 MG tablet Take 1 tablet by mouth once daily ??? meloxicam (MOBIC) 7.5 MG tablet Take 1 tablet by mouth 2 times daily ??? metFORMIN (GLUCOPHAGE) 500 MG tablet Take 500 mg by mouth 2 times daily with morning and evening meal (Patient not taking: Reported on 03/27/2023) ??? ondansetron (Zofran) 4 MG tablet TAKE 1 TABLET BY MOUTH 4 TIMES A DAY NEEDED FOR NAUSEA ??? predniSONE (Deltasone) 10 MG tablet Take by mouth every 24 hours ??? Prenat w/o Y-OX-Qtrjhcq-FA-DHA (PNV-DHA PO) Take by mouth once daily (Patient not taking: Reported on 03/27/2023) ??? progesterone micronized (PROMETRIUM) 200 MG capsule Take 200 mg by mouth at bedtime (Patient not taking: Reported on 03/27/2023) ??? Pyridoxine HCl (B-6) 50 MG Take 0.5 tablets by mouth once daily (Patient not taking: Reported on 03/27/2023) ??? traMADol (Ultram) 50 MG tablet TAKE 2 TABLETS BY ORAL ROUTE EVERY 6 HOURS NEEDED NOT TO EXCEED 8 TABLETS PER 24HRS ??? TRINTELLIX 10 MG tablet Take 10 mg by mouth once daily Reasons: at the same time each day (Patient not taking: Reported on 03/27/2023) ??? zonisamide (ZONEGRAN) 25 MG capsule TAKE 2 CAPSULES BY MOUTH ONCE DAILY (Patient not taking: Reported on 03/27/2023) No current facility-administered medications for this visit. I have reviewed all medications. Review of Systems: Review of Systems (all negative except bolded) GENERAL: No fevers, chills, change in weight, change in appetite, fatigue SKIN: rash, pruritus, sores HEAD: No trauma, headaches EENT: No blurry vision, change in vision,NECK: No pain, stiffness, lumps, decreased motion BREASTS: No lumps, tenderness, discharge RESPIRATORY: No dyspnea, wheezing, cough, sputum, hemoptysis CARDIAC: No chest pain, palpitations, dyspnea, orthopnea, PND GI: No pain, nausea, vomiting, constipation, diarrhea, heartburn, dysphagia, melena, hematochezia, hematemesis URINARY: No dysuria, incontinence, hematuria, frequency GENITAL: No discharge, masses, lesions/rashes, sexual dysfunction HEME: No anemia, easy bruising, bleeding VASCULAR: no pain or swelling in extremities MSK: muscle and joint pain, stiffness, low back pain ENDO: No heat or cold intolerance, no thyroid disease, breath or voice change NEURO: No weakness, dizziness, speech or memory complaints, seizures, tremor, numbness or tingling PSYCH: No depression, anxiety Vital Signs and Physical Exam: Vitals: 03/27/23 1517 BP: 135/83 Pulse: 69 Temp: 97.7 ??F (36.5 ??C) SpO2: 99% Weight: 95.3 kg (210 lb 1.6 oz) Height: 1.65 m (5' 4.96 ) Wt Readings from Last 3 Encounters: 03/27/23 95.3 kg (210 lb 1.6 oz) 08/25/22 86.2 kg (190 lb) 09/22/20 112.5 kg (248 lb) Physical Exam General: NAD, awake and alert, cooperative, fluent speech, appears states age Head: normocephalic, atraumatic EENT: EOMI, PERRL, anicteric sclera, conjunctiva pink, moist mucosa membranes, oral mucosa pink, good dentition, no mucosal lesions, no pharyngeal exudates or erythema Neck: right posterior cervical LAD( about 0.5 cm,mobile, not firm, no tender) ,no supraclavicular, or axillary LAD, no thyroid nodules noted . Resp: CTAB, no wheezing or crackles, no increased work of breathing, good and symmetric excursion CV: RRR, normal S1 and S2, no S3 or S4, no murmurs/rubs/clicks, no elevated JVP, no LE edema, DP pulses intact Abd: +BS, soft, non-tender to palpation, no distention, no guarding or rebound tenderness, no hepatosplenomegaly, no masses Genitourinary: No lesions noted Ext: full range of motion, moving all extremities spontaneously Neuro: Alert and oriented to person/place/time, Skin: Warm/dry/intact, No rashes or lesions, nails without clubbing Labs: Recent Labs Component Name 09/22/20 1240 08/24/20 2020 08/09/19 0924 01/03/18 0811 WBC 8.4 11.1* 7.6 6.6 RBC 3.98 5.52* 5.62* 5.01 HGB 8.9* 13.0 13.5 14.3 HCT 28.6* 41.6 43.3 41.4 MCV 71.9* 75.4* 77.0* 82.6 MCHC 31.1 31.3 31.2 34.5 PLTCOUNT 152* 417* 373 237 NEUTPCT - 60.5 61.3 66.5 LYMPHPCT - 31.1 30.4 26.2 BASOPHILPCT - 0.5 0.5 0.2 GRANSIMMPCT - 0.3 0.4 0.3 NEUTABS - 6.74 4.63 4.42 LYMPHABS - 3.45 2.30 1.74 BASOABS - 0.05 0.04 0.01 Recent Labs Component Name 09/22/20 1218 08/24/20 2020 08/09/19 0923 SODIUM 134* 135* 136 POTASSIUM 4.2 4.0 3.9 CHLORIDE 105 103 101 CO2 18* 19* 26 BUN 8 12 9 CREATININE 0.80 0.84 0.81 GLUCOSE 92 90 89 CALCIUM 8.6 8.8 9.7 ALBUMIN 3.9 4.7 4.7 ALKPHOS 495* 120 122 ALT 148* 22 33 AST 122* 32 19 TBIL 0.3 0.3 0.2 TPROT 7.9 8.4* 8.3 EGFR >60 >60 >60 Recent Labs Component Name 08/09/19 0924 03/09/17 1621 INR 1.0 0.9 Recent Labs Component Name 03/09/17 1621 PTT 29.1 Radiology: PROCEDURE: US SOFT TISSUE HEAD NECK DATE/TIME OF EXAM: 11/23/2022 10:00 AM CLINICAL INFORMATION: Neck lymph nodes Indication: R59.9: Enlarged lymph nodes, unspecified Additional History: ?? COMPARISON: CT soft tissue neck October 21, 2020. History on that study with a lump in the right-sided neck for 3 months. History is swollen lymph nodes off and on times many years ?? TECHNIQUE: Ultrasound of the soft tissue neck was performed utilizing standard protocol. Grayscale and color Doppler ?? FINDINGS: There is a subcutaneous nodule right zone to neck measuring 1.5 x 0.3 cm most consistent with a reactive sized small lymph node. The left neck shows no enlarged lymph nodes. ?? When comparing to CT scan there was a reactive sized right level 2 node that is marked as the area of palpable abnormality back in 2020 and measured about 14 x 8 mm. Thus, no interval imaging pathologic lymph nodes have developed. CT NECK 2020 FINDINGS: A cutaneous marker was placed over the area of symptoms. The marker is seen on axial image 62 of series 2. Beneath the marker is normal-appearing fatty, vascular and muscular tissue. Slightly posterior and deep to the marker there is a 1.0 x 0.9 cm lymph node which is unchanged since 2019. ?? There are scattered bilateral mildly enlarged lymph [...] normal. No retropharyngeal swelling, gas or fluid. ?? The larynx and thyroid are unremarkable. Major vascular structures of the neck are patent. ?? The visualized paranasal sinuses and mastoid air cells are clear. The globes and retro-orbital soft tissues are normal. ?? The teeth and mandible are unremarkable. ?? Cervical spine vertebral bodies are normally aligned. No evidence of significant stenosis. ?? The visualized lung apices are clear. Incidentally noted is an azygos lobe. ?? IMPRESSION ?? 1. No mass, adenopathy or other significant findings. 2. Chronic 1 cm lymph node slightly deep to the marker. ?? Pathology: Right axillary Lymph node biopsy Final Diagnosis 1. ??Right axillary lymph node, excision: -- ??Reactive follicular hyperplasia 2. ?? Right axillary tissue, resection: -- ??Skin and mature adipose tissue (see microscopic) Assessment and Recommendations: 37 year old female with history of psoriatic arthritis and chronic recurrent lymphadenopathy ongoing for 8 years,and referred to for further evaluation. Lymphadenopathy -Started in 2014 for which she underwent right axillary LN biopsy which revealed reactive follicular hyperplasia. Since then it has been recurrent and is currently concerned about her right posteriorcervcial LAD which has been persistent > 6 months. -CT neck in 2020 showed BL scattered enlarged LN, on the right the largest node measures 1.5 cm on the left measures 1.9 cm. A follow US neck in 11/2022 shwed subcutaneous nodule right zone to neckmeasuring 1.5 x 0.3 cm most consistent with a reactive sized small lymph node. The left neck shows no enlarged lymph nodes -Prior LN biopsy revealed follicular hyperplasia which is typically seen in rheumatological diseases. -Recent HIV test in 01/2023 was unreactive. -Also reports unintentional weight loss of about 100 Ibs in 2020. -Although physical exam was unremarkable for malignancy :N findings , would investigate further given associated weight loss. PLAN >CBC, CMP, LDH ( labs should be drawn at the time of PET scan) >PET scan >Would consider LN biopsy depending on results of PET scan. 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 Partida. Addendum to follow. Eb Maguire M.D Internal Medicine PGY-3 Associated attestation - Carey Partida MD - 03/27/2023 6:07 PM CDT I have seen and examined the patient with the resident and I agree with the findings and plan of care as documented by the resident/fellow. Date of Service: 03/27/23 Additional notes by me include: Vera is a 37 y/o woman referred for evaluation of persistent adenopathy Adenopathy was first noted in 2014 and she underwent right axillary LN excisional biopsy at that time that showed follicular lymphoid hyperplasia She's had waxing and waning adenopathy since Has had intermittent finding of atypical lymphocytes on CBC diff In 2020, joint pains possibly lead to a rheum work-up In 2021, she established with Dr. Chilango Langley (Rheum) and was given a diagnosis of psoriatic arthritis She started prednisone 10mg QD around Fall 2021, this was increased to 30mg QD about 3 months laterand she's remained on that prednisone dose since She was also started on golimumab and leflunomide None of these new meds have helped her pain She notes that MTX helped her pain but she had to be taken off due to LFT elevations Since starting the rheum regimen, inguinal lymph nodes have regressed but she notes worsening splenomegaly, right cervical and right axillary adenopathy She's also had a 100 pound unintentional weight loss over the past 2 years CBC/CMP from 09/2021 reviewed, no acute concerns Per PCP, recent labs were done but I can't see results Review of chart shows below path: Component Final Diagnosis Specimen A. SKIN, right infaorbital cheek: LARGE CELL ACANTHOMA (D23.9) (see microscopic description) at 1237 Component Final Diagnosis 1. Right axillary lymph node, excision: -- Reactive follicular hyperplasia 2. Right axillary tissue, resection: -- Skin and mature adipose tissue (see microscopic) AB/vr at 1614 Last cross-sectional imaging that I can see are: CT A/P from 06/14/22, spleen size is not reported: Findings: The cardiac chambers are normal. The lung volumes are low. The liver, pancreas and adrenal glands are normal appearing. The patient is status post cholecystectomy. The spleen is enlarged but stable to prior. The kidneys, ureters and bladder appear normal. The loops of bowel are normal without obstruction or perforation. Bilateral ovarian cysts are noted. There are 2 cysts seen on the left ovary. The largest measures 3.9 x 3.2 cm. These appear simple. No free fluid, abnormal lymph nodes or free air noted. Abdominal vasculature is normal. The abdominal wall is intact. No skeletal lesions are identified. IMPRESSION: No acute abdominal or pelvic pathology noted. Bilateral ovarian cysts left greater than right. CT neck from 10/21/20: 1. No mass, adenopathy or other significant findings. 2. Chronic 1 cm lymph node slightly deep to the marker. Vera is referred for evaluation of adenopathy While I don't palpate clear cut right cervical or right axillary adenopathy, the report of the splenic enlargement and prior adenopathy is a concern, especially combined with unintentional weight loss and a rheumatologic history in someone on immunosuppressive therapy Plan: -Obtain records from Dr. Langley to understand exact underlying rheum diagnosis -If suboptimally responding, lymph nodes could be reactive -Plan PET/CT to help guide biopsy which will likely be needed given evolution of symptoms over past8 years -Obtain labs with PET/CT (CBC, CMP, LDH, uric acid, HIV Ab, EBV PCR) -We can add Rheum labs if appropriate based on review of Dr. Langley's notes -Complete PET on 04/04/23 and plan further f/u accordingly -We have tentatively scheduled a f/u visit on 04/24/23 CC: New PCP - Dr. Daisha Staley Rheum - Dr. Chilango Langley A total of 75 minutes was spent on the date of service performing any of the following: preparing to see the patient, obtaining history and performing exam, independently interpreting tests and communicating results, counseling and educating the patient/family/caregiver, ordering medications and diagnostic studies, documenting in the health record, and care coordination. Carey Partida MD MSc cryptographic center specialist Director of Bone Marrow Transplant and Cellular Therapy [facility] documented in this encounter Plan of Treatment Not on file documented as of this encounter Results * PET CT SKULL [...] PET/CT fellow > Dictated by Hamilton Gan (Assistant Customer Service Manager) 04/06/2023 8:12 AM IVadim MD have [...] PET/CT fellow > Dictated by Hamilton Gan (Assistant Customer Service Manager) 04/06/2023 8:12 AM I, Vadim Benitez MD have personally reviewed and interpreted this examination/study. > Interpreting Provider: Vadim Benitez MD on 04/06/2023 4:16 PM Carey Partida MD NM ORDERABLES * (ABNORMAL) COMPREHENSIVE METABOLIC PANEL (04/06/2023 6:50 AM CDT) BUN 13 7 - 26 mg/dL 04/06/2023 7:35 AM [facility] Creatinine 0.73 0.56 - 0.96 mg/dL 04/06/2023 7:35 AM [facility] Sodium 135(L) 136 - 145 mmol/L 04/06/2023 7:35 AM [facility] Potassium 3.5 3.5 - 4.5 mmol/L 04/06/2023 7:35 AM [facility] Chloride 105 98 - 107 mmol/L 04/06/2023 7:35 AM [facility] CO2 25 22 - 29 mmol/L 04/06/2023 7:35 AM [facility] Glucose 90 70 - 115 mg/dL 04/06/2023 7:35 AM [facility] Calcium 8.7 8.4 - 10.2 mg/dL 04/06/2023 7:35 AM [facility] Protein Total 6.5 6.0 - 8.3 g/dL 04/06/2023 7:35 AM [facility] Albumin 3.9 3.4 - 5.0 g/dL 04/06/2023 7:35 AM [facility] Bilirubin Total 0.4 0.2 - 1.2 mg/dL 04/06/2023 7:35 AM [facility] Alkaline Phosphatase 80 40 - 150 U/L 04/06/2023 7:35 AM [facility] ALT 37 5 - 55 U/L 04/06/2023 7:35 AM [facility] AST 37(H) 5 - 34 U/L 04/06/2023 7:35 AM [facility] Anion Gap 9 8 - 18 04/06/2023 7:35 AM [facility] BUN/Creatinine Ratio 18 7 - 23 04/06/2023 7:35 AM [facility] Osmolality Calculated 280 270 - 300 mOsm/kg 04/06/2023 7:35 AM [facility] Albumin/Globulin Ratio 1.5 1.1 - 2.3 04/06/2023 7:35 AM [facility] eGFR by CKD-EPI >90 >=90 mL/min/1.7 3 m2 04/06/2023 7:35 AM [facility] Blood BLOOD SPECIMEN / Unknown Lab Venipuncture / Unknown 04/06/2023 6:50 AM CDT 04/06/2023 7:09 AM CDT Carey Partida MD LAB - CHEMISTRY [facility] Performing Organization Address City/[facility]/ZIP Co de Phone Number [address] [address], [facility] [phone] * LDH BLOOD (04/06/2023 6:50 AM CDT) Pathologist [facility] LDH Total 137 125 - 243 Units/L 04/06/2023 7:35 AM CDT [facility] Blood BLOOD SPECIMEN / Unknown Lab Venipuncture / Unknown 04/06/2023 6:50 AM CDT 04/06/2023 7:09 AM CDT Carey Partida MD LAB - CHEMISTRY [facility] Performing Organization Address City/[facility]/ZIP Co de Phone Number [address] [address], [facility] [phone] * (ABNORMAL) CBC WITH DIFFERENTIAL (04/06/2023 6:50 AM CDT) Pathologist [facility] WBC 5.5 3.5 - 10.5 10? 3 /uL 04/06/2023 7:18 AM [facility] RBC 5.05 3.80 - 5.20 10? 6 /uL 04/06/2023 7:18 AM [facility] Hemoglobin 13.2 12.0 - 15.6 g/dL 04/06/2023 7:18 AM [facility] Hematocrit 40.4 35.0 - 45.0 % 04/06/2023 7:18 AM [facility] MCV 80.0(L) 80.7 - 98.3 fL 04/06/2023 7:18 AM [facility] MCH 26.1(L) 26.7 - 34.0 pg 04/06/2023 7:18 AM T [facility] MCHC 32.7 30.8 - 35.9 g/dL 04/06/2023 7:18 AM [facility] RDW-SD 38.5 36.0 - 50.0 fL 04/06/2023 7:18 AM [facility] RDW-CV 13.4 11.2 - 14.8 % 04/06/2023 7:18 AM [facility] Platelet Count 263 150 - 400 10? 3 /uL 04/06/2023 7:18 AM [facility] MPV 9.0(L) 9.4 - 12.9 fL 04/06/2023 7:18 AM [facility] nRBC Absolute 0.00 0 10? 3 /uL 04/06/2023 7:18 AM [facility] nRBC Auto 0.0 0 /100 WBC 04/06/2023 7:18 AM [facility] Neutrophils % 52.7 35.0 - 70.0 % 04/06/2023 7:18 AM [facility] Lymphocytes % 38.1 20.0 - 43.0 % 04/06/2023 7:18 AM [facility] Monocytes % 7.1 5.0 - 13.0 % 04/06/2023 7:18 AM [facility] Eosinophils % 1.5 0.0 - 6.0 % 04/06/2023 7:18 AM [facility] Basophil % 0.4 0.0 - 2.0 % 04/06/2023 7:18 AM [facility] Neutrophils Absolute 2.89 1.60 - 7.00 10? 3 /uL 04/06/2023 7:18 AM [facility] Lymphocyte Absolute 2.09 1.10 - 3.90 10? 3 /uL 04/06/2023 7:18 AM [facility] Monocytes Absolute 0.39 0.26 - 1.07 10? 3 /uL 04/06/2023 7:18 AM [facility] Eosinophils Absolute 0.08 0.00 - 0.47 10? 3 /uL 04/06/2023 7:18 AM [facility] Basophils Absolute 0.02 0.00 - 0.08 10? 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
--- OUTSIDE RECORDS SUMMARY | 2024-08-03 01:36 | XMS_ITS | Encounter Summary ---
Author Organization [facility] Address [address] 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 Rheumatoid factor positive High risk medications (not anticoagulants) long-term use Procedures CT ABDOMEN AND PELVIS WITH IV CONTRAST Chilango Langley MD [facility] [address] [address] Referral ID Status Reason Start Date Expiration Date Visits Re quested Visits Authorized [id number] Closed 06/12/2022 06/12/2023 1 1 Reason for Visit * Radiology Services (Routine) - Closed Specialty Diagnoses / Procedures Referred By Contac [email or web address] Referred To Contact CT Scan Diagnoses 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 Rheumatoid factor positive High risk medications (not anticoagulants) long-term use Procedures CT ABDOMEN AND PELVIS WITH IV CONTRAST Chilango Langley MD [facility] [address] [address] Referral ID Status Reason Start Date Expiration Date Visits Re quested Visits Authorized [id number] Closed 06/12/2022 06/12/2023 1 1 Encounter Details Date Type Department Care Team (Latest Contact Info) Description 06/14/2022 8:45 AM CDT - 06/14/2022 11:59 PM CDT Hospital Encounter [facility] Health Imaging Services - [place] Scan [address] [place], [place] [id number] Discharge Disposition: Home or Self Care Social [...] and evening meal 11 05/11/2017 Prenat w/o A-WA-[id number]-[id number]-DHA (PNV-DHA PO) Take by mouth once daily [...] Name Priority Date/Time Associated Diagnosis Comments CT ABDOMEN PELVIS W CONTRAST Routine 06/14/2022 10:10 AM CDT 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 Bilateral ovarian cysts left greater than right. > Interpreting Provider: Brain Holman DO on 06/14/2022 11:42 AM Narrative 06/14/2022 11:[address] Abdomen With Contrast CT Pelvis With Contrast Clinical Indication: Sarcoidosis Technique: Axial CT images from the lung bases through the pubic symphysis were obtained following intravenous administration of Isovue 370 80 cc. Coronal and sagittal reconstructions. Radiation dose reduction technique was utilized. Oral contrast was utilized. Comparison is made with CT abdomen pelvis August 24, 2020 Findings: The cardiac chambers are normal. The [...] is intact. No skeletal lesions are identified. Procedure Note Brain Holman DO - 06/14/[address] With Cont[address] CT Pelvis With Contrast Clinical Indication: Sarcoidosis Technique: Axial CT images from the lung bases through the pubicsymphysis were obtained following intravenous administration of Isovue 370 80 cc. Coronal and sagittal reconstructions. Radiation dose reduction technique was utilized. Oral contrast was utilized. Comparison is made with CT abdomen pelvis August 24, 2020 Findings: The cardiac chambers are normal. The lung volumes are low. The liver, pancreas and adrenal glands are normal appearing. The patient is status post cholecystectomy. The spleen is enlarged but stable to prior. The kidneys, ureters and bladder appear normal. The loops of bowel arenormal without obstruction or perforation. Bilateral ovarian cysts [...] Bilateral ovarian cysts left greater than right. > Interpreting Provider: Brain Holman DO on 06/14/2022 11:42 AM Chilango Langley MD CT ORDERABLES documented in this encounter Visit Diagnoses Diagnosis Polyarticular psoriatic arthritis (HCC) Psoriatic arthropathy Sarcoidosis of lymph nodes Sarcoidosis Rheumatoid factor positive Other and unspecified nonspecific immunological findings High risk medications (not anticoagulants) long-term use Encounter for long-term (current) use of other medications documented in this encounter Administered Medications Inactive Administered Medications - up to 3 most recent administrations Medication Order MAR Action Action Date Dose Rate Site iohexol (Omnipaque 350) contrast Intravenous, CONTRAST ONCE, Starting on Sun06/14/22 at 1038, Until Sun06/14/22 at 1137 $ Given - Contrast 06/14/2022 10:41 AM CDT 80 mL Right Arm iohexol (Omnipaque 350) contrast Oral, CONTRAST ONCE, Starting on Sun06/14/22 at 1038, Until Sun06/14/22 at 1137 $ Given - Contrast 06/14/2022 10:39 AM CDT 50 mL documented in this encounter Additional Health Concerns Infection Onset Date Last Indicated Resolved Time MRSA 09/24/2020 09/24/2020 documented as of this encounter Care Teams Talent Acquisition Administrator Relationship Specialty Start Date End Date Dionicio Colindres DO [address] [place] [id number] PCP - General Family Medicine 01/03/18 documented as of this encounter
--- OUTSIDE RECORDS SUMMARY | 2024-08-03 01:36 | XMS_ITS | Patient Health Summary ---
Author Organization [facility] Address [address] [address] Care Team Providers Care Casting Room Operator Name Role Phone Colindres, Dionicio Arnel Primary Care Provider [phone] Note from [facility],non-owned Affiliates and Associated Physician Practices is amultiple site organization consisting of ambulatory clinics and hospital sitesin [place], [place], [place] and [place]. This disclosure is being madepursuant to the Care Everywhere program and may not contain all information available regarding this patient. Last updated 18.[facility] Allergies * Adhesive Sensitivity(Can tolerate paper tape) * control pill form [Other] * Sodium Hypochlorite(Unknown) Medications * Be aware that medications may not be up to date on this document. Alwaysverify current medications with the patient. * dicyclomine (BENTYL) 10 MG capsule Take 10 mg by mouth 3 times daily. * buPROPion (WELLBUTRIN) 75 MG tablet Take 150 mg by mouth 3 times daily. * HYDROmorphone (DILAUDID) 4 MG tablet Take 4 mg by mouth 2 times daily * amitriptyline (ELAVIL) 10 MG tablet(Started 02/04/2017) Take 10 mg by mouth at bedtime * albuterol HFA (PROVENTIL;VENTOLIN;PROAIR) 108 (90 BASE) MCG/ACT inhaler Inhale 1 (one) puff by mouth 2 times daily * TRINTELLIX 10 MG tablet(Started 05/10/2017) Take 10 mg by mouth once daily Reasons: at the same time each day 1 refill left * metFORMIN (GLUCOPHAGE) 500 MG tablet(Started 05/11/2017) Take 500 mg by mouth 2 times daily with morning and evening meal 11 refills left * L-Methylfolate (DEPLIN) 7.5 MG Take 7.5 mg by mouth once daily * Prenat w/o F-EF-Tfxlvpt-FA-DHA (PNV-DHA PO) Take by mouth once daily * bqxmmkzijw-rrwtmmzksosen-seyqugkl (FIORICET) 50-325-40 MG tablet(Started 10/17/2017) TAKE 1 TABLET BY MOUTH EVERY 4 HOURS NEEDED FOR HEADACHE 5 refills remaining * progesterone micronized (PROMETRIUM) 200 MG capsule(Started 11/16/2017) Take 200 mg by mouth at bedtime 1 refill left * busPIRone (BUSPAR) 10 MG tablet(Started 11/15/2017) Take 10 mg by mouth 3 times daily 1 refill left * doxylamine (UNISOM) 25 MG tablet(Started 01/03/2018) Take 0.5 tablets by mouth nightly as needed (nausea) If nausea does not improve can take BID PRN nausea * Pyridoxine HCl (B-6) 50 MG(Started 01/03/2018) Take 0.5 tablets by mouth once daily * zonisamide (ZONEGRAN) 25 MG capsule(Started 09/04/2018) TAKE 2 CAPSULES BY MOUTH ONCE DAILY * lisinopril (PRINIVIL; ZESTRIL) 10 MG tablet(Started 08/09/2019) Take 1 tablet by mouth once daily 2 refills by 08/08/2020 * meloxicam (MOBIC) 7.5 MG tablet(Started 08/24/2020) Take 1 tablet by mouth 2 times daily * ibuprofen (MOTRIN) 400 MG tablet(Started 09/22/2020) Take 1 (one) tablet by mouth every 6 hours as needed for Pain * acetaminophen (TYLENOL) 325 MG tablet(Started 09/22/2020) Take 2 (two) tablets by mouth every 6 hours as needed for Pain Maximum allowable Acetaminophen amount = 4 Grams (4000 mg) / 24 hours. * ondansetron (Zofran) 4 MG tablet(Started 01/24/2023) TAKE 1 TABLET BY MOUTH 4 TIMES A DAY NEEDED FOR NAUSEA * predniSONE (Deltasone) 10 MG tablet(Started 07/11/2022) Take by mouth every 24 hours * traMADol (Ultram) 50 MG tablet(Started 10/03/2022) TAKE 2 TABLETS BY ORAL ROUTE EVERY 6 HOURS NEEDED NOT TO EXCEED 8 TABLETS PER 24HRS Active Problems Problem Noted Date Diagnosed Date [...] T Respiratory Rate 18 08/25/2022 7:43 AM MAORI LIAISON ADVISER Oxygen Saturation 99% 03/27/2023 3:17 PM CDT Inhaled Oxygen Concentration - - Weight 95.3 kg (210 lb 1.6 oz) 03/27/2023 3:17 P M CDT Height 165 cm (5' 4.96 ) 03/27/2023 3:17 PM CDT Body Mass Index 35 03/27/2023 3:17 PM CDT Procedures * PET CT SKULL TO MID THIGH(Performed 04/06/2023) Performed for Lymphoproliferative disease (HCC), Diffuse follicle center lymphoma, spleen (HCC) * HIV-1 HIV-2 ANTIBODY + HIV P24 AG PANEL(Performed 04/06/2023) Performed for Diffuse follicle center lymphoma, spleen (HCC) * URIC ACID BLOOD(Performed 04/06/2023) Performed for Diffuse follicle center lymphoma, spleen (HCC) * COMPREHENSIVE METABOLIC PANEL(Performed 04/06/2023) Performed for Lymphadenopathy * LDH BLOOD(Performed 04/06/2023) Performed for Lymphadenopathy * CBC W AUTO DIFFERENTIAL(Performed 04/06/2023) Performed for Lymphadenopathy * GLUCOSE SCREEN - POCT (IP) [facility]H(Performed 04/06/2023) * US SOFT TISSUE HEAD NECK(Performed 11/23/2022) Performed for Shotty lymph nodes * DERMATOPATHOLOGY(Performed 11/14/2022) * MRI LUMBAR SPINE WO CONTRAST(Performed 10/09/2022) Performed for Chronic right-sided low back pain with right-sided sciatica * SARS-COV-2 (COVID-19) FLU A/B RSV PCR RAPID(Performed 08/25/2022) * CT ABDOMEN PELVIS W CONTRAST(Performed 06/14/2022) Performed for Polyarticular psoriatic arthritis (HCC), Sarcoidosis of lymph nodes, Rheumatoid factor positive, High risk medications (not anticoagulants) long-term use * XR CHEST 2VW(Performed 06/07/2022) Performed for Polyarthropathy, inflammatory (HCC), Polyarticular psoriatic arthritis (HCC), Sarcoidosis of lymph nodes * CT NECK SOFT TISSUE W CONT(Performed 10/21/2020) Performed for Localized swelling, mass and lump, neck * CREATININE BLOOD - POINT OF CARE (IP)(Performed 10/21/2020) Performed for Localized swelling, mass and lump, neck * CULTURE RESPIRATORY+GRAM STAIN (STL)(Performed 09/24/2020) Performed for Chest pain, unspecified type * CARDIAC EKG ORDER(Performed 09/24/2020) * CARDIAC EKG ORDER(Performed 09/24/2020) * PATHOLOGY PERIPHERAL SMEAR REVIEW(Performed 09/22/2020) * DIFFERENTIAL MANUAL(Performed 09/22/2020) * CBC W AUTO DIFFERENTIAL(Performed 09/22/2020) * HCG BETA BLOOD QUANTITATIVE(Performed 09/22/2020) * TSH REFLEX FREE T4(Performed 09/22/2020) * COMPREHENSIVE METABOLIC PANEL(Performed 09/22/2020) * TROPONIN I(Performed 09/22/2020) * XR CHEST 2VW(Performed 09/22/2020) Performed for Chest pain, unspecified type * EKG 12-LEAD(Performed 09/22/2020) Performed for Chest pain, unspecified type * CT ABDOMEN PELVIS W CONTRAST(Performed 08/24/2020) Performed for RLQ abdominal pain * URINE MICROSCOPIC ONLY REFLEX TO CULTURE(Performed 08/24/2020) * URINALYSIS REFLEX MICROSCOPIC REFLEX CULTURE(Performed 08/24/2020) * LIPASE BLOOD(Performed 08/24/2020) * HCG BETA BLOOD QUANTITATIVE(Performed 08/24/2020) * COMPREHENSIVE METABOLIC PANEL(Performed 08/24/2020) * CBC W AUTO DIFFERENTIAL(Performed 08/24/2020) * URINALYSIS REFLEX MICROSCOPIC REFLEX CULTURE(Performed 08/09/2019) * CT ANGIO BRAIN NECK STROKE(Performed 08/09/2019) Performed for Tingling * HCG BETA BLOOD QUANTITATIVE(Performed 08/09/2019) * TROPONIN I(Performed 08/09/2019) * PT-INR(Performed 08/09/2019) * CBC W AUTO DIFFERENTIAL(Performed 08/09/2019) * GLUCOSE - POINT OF CARE(Performed 08/09/2019) * CREATININE BLOOD - POINT OF CARE (IP)(Performed 08/09/2019) * HCG BETA BLOOD QUANTITATIVE(Performed 08/09/2019) * COMPREHENSIVE METABOLIC PANEL(Performed 08/09/2019) * CT BRAIN STROKE(Performed 08/09/2019) Performed for Tingling * US OB LESS THAN 14 WKS W DOPPLER(Performed 01/03/2018) Performed for Abdominal pain during in first trimester (HCC) * HCG URINE QUALITATIVE - POCT (IP) INTERFACED(Performed 01/03/2018) * URINE MICROSCOPIC ONLY REFLEX TO CULTURE(Performed 01/03/2018) * URINALYSIS REFLEX MICROSCOPIC REFLEX CULTURE(Performed 01/03/2018) * CULTURE URINE(Performed 01/03/2018) * HCG URINE QUAL POCT NOTIFICATION(Performed 01/03/2018) * HCG BETA BLOOD QUANTITATIVE(Performed 01/03/2018) * MAGNESIUM BLOOD(Performed 01/03/2018) * COMPREHENSIVE METABOLIC PANEL(Performed 01/03/2018) * CBC W AUTO DIFFERENTIAL(Performed 01/03/2018) * CT ANGIO BRAIN AND NECK(Performed 10/22/2017) Performed for Vision changes * CT HEAD WO CONTRAST(Performed 10/22/2017) Performed for Vision changes * HCG URINE QUALITATIVE - POINT OF CARE(Performed 10/22/2017) * TYPE + SCREEN PANEL(Performed 10/22/2017) * URINE MICROSCOPIC ONLY REFLEX TO CULTURE(Performed 10/22/2017) * URINALYSIS REFLEX MICROSCOPIC REFLEX CULTURE(Performed 10/22/2017) * CULTURE URINE(Performed 10/22/2017) * C-REACTIVE PROTEIN(Performed 10/22/2017) * ERYTHROCYTE SEDIMENTATION RATE(Performed 10/22/2017) * COMPREHENSIVE METABOLIC PANEL(Performed 10/22/2017) * CBC W AUTO DIFFERENTIAL(Performed 10/22/2017) * CT HEAD WO CONTRAST(Performed 04/12/2017) * GLUCOSE ACCUCHECK(Performed 03/20/2017) * CBC W AUTO DIFFERENTIAL(Performed 03/20/2017) * BASIC METABOLIC PANEL (CALCIUM TOTAL)(Performed 03/20/2017) * CBC W AUTO DIFFERENTIAL(Performed 03/20/2017) * GLUCOSE ACCUCHECK(Performed 03/19/2017) * GLUCOSE ACCUCHECK(Performed 03/19/2017) * GLUCOSE ACCUCHECK(Performed 03/19/2017) * GLUCOSE ACCUCHECK(Performed 03/19/2017) * CBC W AUTO DIFFERENTIAL(Performed 03/19/2017) * BASIC METABOLIC PANEL (CALCIUM TOTAL)(Performed 03/19/2017) * CBC W AUTO DIFFERENTIAL(Performed 03/19/2017) * GLUCOSE ACCUCHECK(Performed 03/18/2017) * GLUCOSE ACCUCHECK(Performed 03/18/2017) * GLUCOSE ACCUCHECK(Performed 03/18/2017) * GLUCOSE ACCUCHECK(Performed 03/18/2017) * CBC W AUTO DIFFERENTIAL(Performed 03/17/2017) * BASIC METABOLIC PANEL (CALCIUM TOTAL)(Performed 03/17/2017) * CBC W AUTO DIFFERENTIAL(Performed 03/17/2017) * GLUCOSE ACCUCHECK(Performed 03/17/2017) * GLUCOSE ACCUCHECK(Performed 03/17/2017) * GLUCOSE ACCUCHECK(Performed 03/17/2017) * GLUCOSE ACCUCHECK(Performed 03/17/2017) * BASIC METABOLIC PANEL (CALCIUM TOTAL)(Performed 03/17/2017) * CBC W AUTO DIFFERENTIAL(Performed 03/17/2017) * CBC W AUTO DIFFERENTIAL(Performed 03/17/2017) * MRI BRAIN WWO CONTRAST(Performed 03/16/2017) * BASIC METABOLIC PANEL (CALCIUM TOTAL)(Performed 03/16/2017) * CBC W AUTO DIFFERENTIAL(Performed 03/16/2017) * CBC W AUTO DIFFERENTIAL(Performed 03/16/2017) * BASIC METABOLIC PANEL (CALCIUM TOTAL)(Performed 03/15/2017) * CBC W AUTO DIFFERENTIAL(Performed 03/15/2017) * CBC W AUTO DIFFERENTIAL(Performed 03/15/2017) * PATHOLOGY TISSUE(Performed 03/14/2017) * BASIC METABOLIC PANEL (CALCIUM TOTAL)(Performed 03/14/2017) * CT GUIDED STEREO LOCALIZATION(Performed 03/13/2017) * CROSSMATCH RBC LEUKOREDUCED(Performed 03/13/2017) * TYPE + SCREEN PANEL(Performed 03/13/2017) * MRI BRAIN WWO CONTRAST(Performed 03/10/2017) * CBC W AUTO DIFFERENTIAL(Performed 03/10/2017) * BASIC METABOLIC PANEL (CALCIUM TOTAL)(Performed 03/10/2017) * CBC W AUTO DIFFERENTIAL(Performed 03/10/2017) * TYPE + SCREEN PANEL(Performed 03/09/2017) * HCG URINE QUALITATIVE - POCT (IP) [facility](Performed 03/09/2017) * CBC W AUTO DIFFERENTIAL(Performed 03/09/2017) * CBC W AUTO DIFFERENTIAL(Performed 03/09/2017) * BASIC METABOLIC PANEL (CALCIUM TOTAL)(Performed 03/09/2017) * PTT [facility](Performed 03/09/2017) * PT-INR [facility](Performed 03/09/2017) * CT ANGIO BRAIN AND NECK(Performed 03/09/2017) Performed for Acute intractable headache, unspecified headache type, Changes in vision * CT HEAD WO CONTRAST(Performed 03/09/2017) Performed for Acute intractable headache, unspecified headache type, Changes in vision * CBC W AUTO DIFFERENTIAL(Performed 03/09/2017) * HCG URINE QUALITATIVE - POINT OF CARE(Performed 03/09/2017) * URINALYSIS REFLEX MICROSCOPIC REFLEX CULTURE(Performed 03/09/2017) * CULTURE URINE(Performed 03/09/2017) * COMPREHENSIVE METABOLIC PANEL(Performed 03/09/2017) * CT ABDOMEN PELVIS W CONTRAST(Performed 03/09/2015) Performed for Abdominal pain, left upper quadrant * ED INCISION AND DRAINAGE(Performed 11/21/2014) Performed for Fluid collection at surgical site, subsequent encounter * CULTURE FLUID+GRAM STAIN(Performed 11/21/2014) * EXCISION MASS OR TUMOR AXILLA(Performed 11/10/2014) Performed for Neoplasm of uncertain behavior of skin * PATHOLOGY TISSUE EXAM (STL)(Performed 11/10/2014) Performed for Neoplasm of uncertain behavior of skin [238.2] * HCG URINE QUALITATIVE - POINT OF CARE(Performed 11/10/2014) * URINALYSIS REFLEX MICROSCOPIC REFLEX CULTURE(Performed 08/22/2010) * CULTURE URINE(Performed 08/22/2010) * IMAGING/RADIOLOGY/XRAY RESULTS ORDER(Performed 02/17/2010) * GROSS + MICRO EXAM(Performed 02/14/2010) Performed for Cholelithiasis Nos * PT PTT PANEL(Performed 02/13/2010) Performed for Cholelithiasis Nos * URINALYSIS REFLEX MICROSCOPIC REFLEX CULTURE(Performed 02/12/2010) Performed for Cholelithiasis Nos * XR CHEST 2VW(Performed 02/12/2010) Performed for Cholelithiasis Nos * LIPASE BLOOD(Performed 02/11/2010) Performed for Cholelithiasis Nos * MAGNESIUM BLOOD(Performed 02/11/2010) Performed for Cholelithiasis Nos * COMPREHENSIVE METABOLIC PANEL(Performed 02/11/2010) Performed for Cholelithiasis Nos * PTT(Performed 02/11/2010) Performed for Cholelithiasis Nos * PT-INR(Performed 02/11/2010) Performed for Cholelithiasis Nos * CBC W AUTO DIFFERENTIAL(Performed 02/11/2010) Performed for Cholelithiasis Nos * CT ABDOMEN WWO PELVIS W CONT(Performed 02/07/2010) Performed for RLQ Abdominal Pain * WET PREP SMEAR(Performed 02/07/2010) * CHLAMYDIA + GC AMPLIFIED PROBE(Performed 02/07/2010) * US PELVIS W TRANSVAG W DOP NON OB(Performed 02/07/2010) Performed for RLQ Abdominal Pain * URINALYSIS REFLEX TO MICROSCOPIC NO CULTURE(Performed 02/07/2010) * HCG BLOOD QUALITATIVE(Performed 02/07/2010) * LIPASE BLOOD(Performed 02/07/2010) * COMPREHENSIVE METABOLIC PANEL(Performed 02/07/2010) * CBC W AUTO DIFFERENTIAL(Performed 02/07/2010) * HCG URINE QUALITATIVE - POINT OF CARE(Performed 02/07/2010) * US OB TRANSVAGINAL DOPPLER(Performed 03/15/2009) Performed for Threatened , Antepartum (HCC) * CHLAMYDIA + GC AMPLIFIED PROBE(Performed 03/15/2009) * WET PREP SMEAR(Performed 03/15/2009) * TYPE + SCREEN PANEL(Performed 03/15/2009) * HCG BETA BLOOD QUANTITATIVE(Performed 03/15/2009) * CBC W AUTO DIFFERENTIAL(Performed 03/15/2009) * HCG URINE QUALITATIVE - POINT OF CARE(Performed 03/15/2009) Results * PET CT SKULL TO MID [...] PET/CT fellow > Dictated by Hamilton Gan (Dining Chair Seat Cushion Trimmer) 04/06/2023 8:12 AM I, Vadim Benitez MD [...] PET/CT fellow > Dictated by Hamilton Gan (Dining Chair Seat Cushion Trimmer) 04/06/2023 8:12 AM IVadim MD have personally reviewed and interpreted this examination/study. > Interpreting Provider: Vadim Benitez MD on 04/06/2023 4:16 PM Carey Partida MD NM ORDERABLES * HIV-1 HIV-2 ANTIBODY + HIV P24 AG PANEL (04/06/2023 6:50 AM CDT) Pathologist [facility] HIV Antigen/Antibod y 1 & 2 Non-reacti ve Non-react shanti 04/06/2023 8:08 AM CDT [facility] Comment:No Laboratory eviden ce of HIV infection. Blood BLOOD SPECIMEN / Unknown Lab Venipuncture / Unknown 04/06/2023 6:50 AM CDT 04/06/2023 7:01 AM CDT Carey Partida MD LAB - CHEMISTRY ORDBrett [place] [address] [address], [place] [phone] * URIC ACID BLOOD (04/06/2023 6:50 AM CDT) Pathologist [facility] Uric Acid 5.1 2.6 - 6.0 mg/dL 04/06/2023 7:35 AM CDT [facility] Blood BLOOD SPECIMEN / Unknown Lab Venipuncture / Unknown 04/06/2023 6:50 AM CDT 04/06/2023 7:09 AM CDT Carey Partida MD LAB - CHEMISTRY ELIZA [place] [address] [address], [place] [phone] * (ABNORMAL) CBC WITH DIFFERENTIAL (04/06/2023 6:50 AM CDT) Only the most recent of26 resultswithin the time period is included. WBC 5.5 3.5 - 10.5 10? 3 /uL 04/06/2023 7:18 AM [facility] RBC 5.05 3.80 - 5.20 10? 6 /uL 04/06/2023 7:18 AM [facility] Hemoglobin 13.2 12.0 - 15.6 g/dL 04/06/2023 7:18 AM [facility] Hematocrit 40.4 35.0 - 45.0 % 04/06/2023 7:18 AM [facility] MCV 80.0(L) 80.7 - 98.3 fL 04/06/2023 7:18 AM [facility] MCH 26.1(L) 26.7 - 34.0 pg 04/06/2023 7:18 AM [facility] MCHC 32.7 30.8 - 35.9 g/dL 04/06/2023 7:18 AM [facility] RDW-SD 38.5 36.0 - 50.0 fL 04/06/2023 7:18 AM [facility] RDW-CV 13.4 11.2 - 14.8 % 04/06/2023 7:18 AM [facility] Platelet Count 263 150 - 400 10? 3 /uL 04/06/2023 7:18 AM [facility] MPV 9.0(L) 9.4 - 12.9 fL 04/06/2023 7:18 AM [facility] nRBC Absolute 0.00 0 10? 3 /uL 04/06/2023 7:18 AM [facility] nRBC Auto 0.0 0 /100 WBC 04/06/2023 7:18 AM [facility] Neutrophils % 52.7 35.0 - 70.0 % 04/06/2023 7:18 AM [facility] Lymphocytes % 38.1 20.0 - 43.0 % 04/06/2023 7:18 AM [facility] Monocytes % 7.1 5.0 - 13.0 % 04/06/2023 7:18 AM CDT [facility] Eosinophils % 1.5 0.0 - 6.0 % 04/06/2023 7:18 AM [facility] Basophil % 0.4 0.0 - 2.0 % 04/06/2023 7:18 AM T [facility] Neutrophils Absolute 2.89 1.60 - 7.00 10? 3 /uL 04/06/2023 7:18 AM T [facility] Lymphocyte Absolute 2.09 1.10 - 3.90 10? 3 /uL 04/06/2023 7:18 AM T [facility] Monocytes Absolute 0.39 0.26 - 1.07 10? 3 /uL 04/06/2023 7:18 AM [facility] Eosinophils Absolute 0.08 0.00 - 0.47 10? 3 /uL 04/06/2023 7:18 AM [facility] Basophils Absolute 0.02 0.00 - 0.08 10? 3 /uL 04/06/2023 7:18 AM [facility] Immature Granulocytes % 0.2 0.0 - 1.0 % 04/06/2023 7:18 AM [facility] Immature Granulocytes Absolute 0.01 04/06/2023 7:18 AM [facility] Blood BLOOD SPECIMEN / Unknown Lab Venipuncture / Unknown 04/06/2023 6:50 AM CDT 04/06/2023 7:09 AM CDT Carey Partida MD LAB - HEMATOLOGY ORD ERABLES [facility] [address] [place] [address], [facility] [phone] * (ABNORMAL) COMPREHENSIVE METABOLIC PANEL (04/06/2023 6:50 AM CDT) Only the most recent of9 resultswithin the time period is included. BUN 13 7 - 26 mg/dL 04/06/2023 7:35 AM CDT [facility] Creatinine 0.73 0.56 - 0.96 mg/dL 04/06/2023 7:35 AM [facility] Sodium 135(L) 136 - 145 mmol/L 04/06/2023 7:35 AM [facility] Potassium 3.5 3.5 - 4.5 mmol/L 04/06/2023 7:35 AM [facility] Chloride 105 98 - 107 mmol/L 04/06/2023 7:35 AM [facility] CO2 25 22 - 29 mmol/L 04/06/2023 7:35 AM [facility] Glucose 90 70 - 115 mg/dL 04/06/2023 7:35 AM [facility] Calcium 8.7 8.4 - 10.2 mg/dL 04/06/2023 7:35 AM [facility] Protein Total 6.5 6.0 - 8.3 g/dL 04/06/2023 7:35 AM [facility] Albumin 3.9 3.4 - 5.0 g/dL 04/06/2023 7:35 AM [facility] Bilirubin Total 0.4 0.2 - 1.2 mg/dL 04/06/2023 7:35 AM [facility] Alkaline Phosphatase 80 40 - 150 U/L 04/06/2023 7:35 AM [facility] ALT 37 5 - 55 U/L 04/06/2023 7:35 AM [facility] AST 37(H) 5 - 34 U/L 04/06/2023 7:35 AM [facility] Anion Gap 9 8 - 18 04/06/2023 7:35 AM [facility] BUN/Creatinine Ratio 18 7 - 23 04/06/2023 7:35 AM [facility] Osmolality Calculated 280 270 - 300 mOsm/kg 04/06/2023 7:35 AM [facility] Albumin/Globulin Ratio 1.5 1.1 - 2.3 04/06/2023 7:35 AM [facility] eGFR by CKD-EPI >90 >=90 mL/min/1.7 3 m2 04/06/2023 7:35 AM [facility] Blood BLOOD SPECIMEN / Unknown Lab Venipuncture / Unknown 04/06/2023 6:50 AM CDT 04/06/2023 7:09 AM CDT Carey Partida MD LAB - CHEMISTRY ELIZA [facility] Performing Organization Address City/[facility]/ZIP Co de Phone Number [address] [address], [place] [phone] * LDH BLOOD (04/06/2023 6:50 AM CDT) LDH Total 137 125 - 243 Units/L 04/06/2023 7:35 AM CDT [facility] Blood BLOOD SPECIMEN / Unknown Lab Venipuncture / Unknown 04/06/2023 6:50 AM CDT 04/06/2023 7:09 AM CDT Carey Partida MD LAB - CHEMISTRY ELIZA [facility] Performing Organization Address [facility]/ZIP Co de Phone Number [address] [address], [place] [phone] * GLUCOSE SCREEN - POCT (IP) [facility] (04/06/2023 6:40 AM CDT) Glucose WB/POC 97 70 - 115 mg/dL [facility] POCT TESTING Blood BLOOD SPECIMEN / Unknown 04/06/2023 6:40 AM CDT Carey Partida MD LAB - POINT OF CARE ORDERABLES Performing Organization Address City/[facility]/ZIP Co de Phone Number [facility] POCT TESTING [address] [place] [address], [place] [phone] * US HEAD NECK TISSUES B - [...] 11:03 AM Chilango Langley MD US ORDERABLES * DERMATOPATHOLOGY (11/14/2022 12:00 AM CDT) Case Report Dermatopathology Report ? Case: [id number] ? Authorizing Provider: ??Matthieu Helms MD ?Collected: ? 11/14/2022 12:00 AM ? Ordering Location: ? [facility] DermPath Lab ?Received: ?11/15/2022 09:24 AM ? Pathologist: ? Reinaldo Astudillo MD ? Specimen: ?Skin, right infaorbital cheek ? 3 12:37 PM T DERMATOPATHOLOGY LABORATORY Final Diagnosis Specimen A. SKIN, right infaorbital cheek: LARGE CELL ACANTHOMA (D23.9) (see microscopic description) 3 12:[address] [facility] DERMATOPATHOLOGY LABORATORY Clinical History Neoplasm of uncertain behavior of skin, compound nevus of skin, atypical nevus of skin, melanoma of skin 3 12:37 PM T DERMATOPATHOLOGY LABORATORY Gross Description Specimen A: Received is one formalin filled container labeled with the patient's name and designated right infaorbital cheek. The specimen consists of a shave biopsy measuring 4x2x1 mm. Jar 0. 3 12:37 PM T DERMATOPATHOLOGY LABORATORY Microscopic Description Specimen A. SKIN, [...] characteristic determined by the Dermatopathology Laboratory at [facility], directed by Dr. Karley Astudillo. These tests need not be, and therefore are not, approved by the [place] Food and Drug Administration. The tests are used for clinical purposes. Billing Codes Specimen Charges Stain Charges 10548 1 3 12:37 PM CDT DERMATOPATHOLOGY LABORATORY Embedded Images 3 12:37 PM CDT DERMATOPATHOLOGY LABORATORY Pathology/Cytolog y TISSUE SPECIMEN FROM SKIN / Unknown 11/14/2022 11/15/2022 9:24 AM CDT Matthieu Helms MD LAB - PATHOLOGY/CY TOLOGY ORDERABLES DERMATOPATHOLOGY LABORATORY [facility] - Department of Dermatology [address], [address] [phone] * MRI LUMBAR SPINE WO CONTRAST (10/09/2022 7:56 AM MAORI LIAISON ADVISER) Anatomical Region Laterality Modality Spine Magnetic Resonan ce 10/09/2022 9:15 AM MAORI LIAISON ADVISER Impressions 10/09/2022 9:20 AM MAORI LIAISON ADVISER IMPRESSION: 1. Left central to subarticular disc extrusion with cranial migration L4-5. This abuts the exiting left L4 nerve root. 2. No right-sided disc herniation or nerve root impingement is identified. 3. Mild spinal canal stenosis at L4-5. Foraminal narrowing on the right L4-5 and bilaterally at L5-S1. > Interpreting Provider: Kodak Ovalle DO on 10/09/2022 9:20 AM Narrative 10/09/2022 9:20 AM MAORI LIAISON ADVISER EXAM: MRI Lumbar Spine without contrast INDICATION: [...] Paravertebral soft tissues are grossly unremarkable. Tiny [id number] cortical lesion left kidney probably represents a [...] 10/09/2022 9:20 AM Provider Unknown MR ORDERABLES * SARS-COV-2 (COVID-19) FLU A/B RSV PCR RAPID (08/25/2022 7:46 AM MAORI LIAISON ADVISER) COVID-19 PCR Not detected Not detected 08/25/19 8:26 AM [facility] Influenza A PCR Not detected Not detected 08/25/2022 8:26 AM [facility] Influenza B PCR Not detected Not detected 08/25/2022 8:26 AM [facility] RSV PCR Not detected Not detected 08/25/2022 8:26 AM [facility] Microbiology SPECIMEN FROM NASOPHARYNGEAL STRUCTURE / Unknown Collection / Unknown 08/25/2022 7:46 AM MAORI LIAISON ADVISER 08/25/2022 7:48 AM MAORI LIAISON ADVISER [facility] - 08/25/2022 8:26 AM MAORI LIAISON ADVISER This nucleic acid amplification assay has been [...] [facility] - MICROBIOLOGY O RDERABLES Performing Organization Address City/State/[facility] Co de Phone Number [facility] [address] [place] [address] * CT ABDOMEN AND PELVIS WITH IV CONTRAST (06/14/2022 10:10 AM CDT) Only the most recent of3 resultswithin the time period is included. Anatomical Region Laterality Modality Abdomen, Pelvis Computed [...] 11:42 AM Chilango Langley MD CT ORDERABLES * XR CHEST 2VW (06/07/2022 3:37 PM CDT) Only the most recent of3 resultswithin the time period is included. Anatomical Region Laterality Modality Chest Radiographic Sherrie ging 06/07/2022 3:50 PM CDT Impressions 06/07/2022 3:50 PM CDT IMPRESSION: No acute cardiopulmonary process is identified. > Interpreting Provider: Brain Holman DO on 06/07/2022 3:50 PM Narrative 06/07/2022 3:50 PM CDT Chest 2 view HISTORY: Chest pain, history of sarcoid, shortness of breath PROCEDURE: Frontal and lateral projections of chest are compared with September 22, 2020. FINDINGS: Lungs are clear without consolidation, effusion or pneumothorax. Cardiac chambers appear normal. The osseous structures are intact. Procedure Note Brain Holman DO - 06/07/2022 Chest 2 view HISTORY: Chest pain, history of sarcoid, shortness of breath PROCEDURE: Frontal and lateral projections of chest are compared with September 22, 2020. FINDINGS: Lungs are clear without consolidation, effusion orpneumothorax. Cardiac chambers appear normal. The osseous structures are intact. IMPRESSION: No acute cardiopulmonary process is identified. > Interpreting Provider: Brain Holman DO on 06/07/2022 3:50 PM Chilango Langley MD DIAGNOSTIC IMAGING O RDERABLES * CT NECK SOFT TISSUE W CONT (10/21/2020 11:36 AM MAORI LIAISON ADVISER) Anatomical Region Laterality Modality Head Computed Tomogra phy 10/21/2020 11:5 2 AM MAORI LIAISON ADVISER Impressions 10/21/2020 11:58 AM MAORI LIAISON ADVISER 1. ??No mass, adenopathy or other significant findings. 2. ??Chronic 1 cm lymph node slightly deep to the marker. *Reading Radiologist: Niurka Ewing on 10/21/2020 at 11:58 AM Narrative 10/21/2020 11:58 AM [facility]ORI LIAISON [address] CT neck with contrast DATE: 10/21/2020. INDICATION: [...] is an azygos lobe. Procedure Note Niurka Ewing MD - 10/21/2020 CT neck with contrast [...] POINT OF CARE (IP) (10/21/2020 11:24 AM MAORI LIAISON ADVISER) Only the most recent of2 resultswithin the time period is included. Creatinine POCT 1.03 0.7 - 1.2 mg/dL [facility] POCT TESTING QC Verified Yes Yes [facility] POC T TESTING Blood BLOOD SPECIMEN / Unknown 10/21/2020 11:24 AM MAORI LIAISON ADVISER Serene Garcia MD LAB - POINT OF CA RE ORDERABLES [facility] POCT TESTING [address] [phone] * (ABNORMAL) CULTURE RESPIRATORY+GRAM STAIN (STL) (09/24/2020 3:25 PM MAORI LIAISON ADVISER) Culture Heavy Staphylococcus aureus methicillin-resista nt (MRSA)(A) BRYANT 09/27/2020 9:47 AM [facility] MICROBIOLOGY Comment:Staphylococcus aureu s methicillin-resistant (MRSA) detected by penicillin binding protein immunoassay. Contact precautions required. Conventional antibiotic susceptibility testing to follow. Culture Moderate Streptococcus agalactiae (Group B)(A) BRYANT 09/27/2020 9:47 AM MAORI LIAISON ADVISER [facility] MICROBIOLOGY Culture Moderate Streptococcus parasanguinis(A) 09/27/2020 9:47 AM MAORI LIAISON ADVISER [facility] MICROBIOLOGY Gram Stain Rare Polymorphonuclear cells 09/27/2020 9:47 AM MAORI LIAISON ADVISER [facility] MICROBIOLOGY Gram Stain Rare Gram-positive cocci 09/27/2020 9:47 AM MAORI LIAISON ADVISER [facility] MICROBIOLOGY Gram Stain Light Gram-negative bacilli 09/27/2020 9:47 AM MAORI LIAISON ADVISER [facility] MICROBIOLOGY Microbiology SINUS / Unknown Collection / Unknown 09/24/2020 3:25 PM MAORI LIAISON ADVISER 09/24/2020 8:56 PM MAORI LIAISON ADVISER Narrative [facility] MICROBIOLOGY - 09/27/2020 9:47 AM MAORI LIAISON ADVISER Methicillin-resistant Staphylococci (MRSA) are resistant to all currently available beta-lactam antibiotics with the exception of the newer cephalosporins with anti-MRSA activity. Contact precautions required. Susceptibility testing of penicillin, other beta-lactam antibiotics, and vancomycin is not necessary for beta-hemolytic streptococci groups A,B,C and G because resistant strains have not been recognized. Organism Antibiotic Method Susceptibility Staphylococcus aureus methicillin-resistant (MRSA) Clindamycin BRYANT 0.25 ug/mL: Susceptible Staphylococcus aureus methicillin-resistant (MRSA) Doxycycline BRYANT <=0.5 ug/mL: Susceptible Staphylococcus aureus methicillin-resistant (MRSA) Erythromycin BRYANT >=8 ug/mL: Resistant Staphylococcus aureus methicillin-resistant (MRSA) Gentamicin BRYANT <=0.5 ug/mL: Susceptible Staphylococcus aureus methicillin-resistant (MRSA) Inducible Clindamycin Resistance BRYANT NEG ug/mL: Neg Staphylococcus aureus methicillin-resistant (MRSA) Linezolid BRYANT 2 ug/mL: Susceptible Staphylococcus aureus methicillin-resistant (MRSA) Oxacillin BRYANT >=4 ug/mL: Resistant Staphylococcus aureus methicillin-resistant (MRSA) Tetracycline BRYANT <=1 ug/mL: Susceptible Staphylococcus aureus methicillin-resistant (MRSA) Trimethoprim-sulfamethoxa zole BRYANT <=10 ug/mL: Susceptible Staphylococcus aureus methicillin-resistant (MRSA) Vancomycin BRYANT 1 ug/mL: Susceptible Serene Garcia MD LAB - MICROBIOLOG Y ORDERABLES [facility] MICROBIOLOGY [address] [place], [place] [address], [facility] [phone] * CARDIAC EKG ORDER (09/24/2020 1:08 AM MAORI LIAISON ADVISER) Only the most recent of2 resultswithin the time period is included. Narrative 09/24/2020 1:08 AM MAORI LIAISON ADVISER Ordered by an unspecified provider. Scanned Document CARDIAC SERVICES ORD ERABLES * PATHOLOGY PERIPHERAL SMEAR REVIEW (09/22/2020 12:40 PM MAORI LIAISON ADVISER) Case Report Pathology Interpretation Report ? Case: [id number] ? Authorizing Provider: ??Caden Carlos MD ?Collected: ? 09/22/2020 12:40 PM ? Ordering Location: ? [facility] ?? Received: ?09/22/2020 02:15 PM ? Emergency Department ? Pathologist: ? Toan Tellez MD ? Specimen: ?Blood ? 09/23/2020 10:40 AM [facility] Final Diagnosis Peripheral blood: Anemia, hypochromic microcytic. Lymphocytosis with atypical lymphocytes (see comment). Comment: Iron deficiency anemia should be clinically rule out as the underlying cause of this patient's hypochromic microcytic anemia. The atypical lymphocytes described can be related to this patient's recent COVID infection. However would follow-up is required. If persistent further assessment by flow cytometry is suggested. 09/23/2020 10:40 AM [facility] Clinical History 35-year-old patient with recent history of COVID infection and lymphadenopathy. 09/23/2020 10:40 AM [facility] Peripheral Smear Description Review of the peripheral smear shows hypochromic microcytic red blood cells with occasional ovalocytes. Platelets are adequate. Leukocytes are present in adequate number with atypical lymphocytes noted. These lymphocytes are predominantly small, with irregular indented nuclei, coarse chromatin pattern, and inconspicuous nucleoli. 09/23/2020 10:40 AM [facility] Blood BLOOD SPECIMEN / Unknown Venipuncture / Unknown 09/22/2020 12:40 PM MAORI LIAISON ADVISER 09/22/2020 2:15 PM MAORI LIAISON ADVISER Caden Carlos MD LAB - PATHOLOGY/CYTO LOGY ORDERABLES [facility] [address] [place] [address] * (ABNORMAL) DIFFERENTIAL MANUAL (09/22/2020 12:40 PM MAORI LIAISON ADVISER) WBC Auto 8.4 x10E9/L 09/23/2020 1:28 PM MAORI LIAISON ADVISER [facility] WBC Corrected 09/23/2020 1:28 PM MAORI LIAISON ADVISER [facility] nRBC 09/23/2020 1:28 PM [facility] Neutrophil % Manual 51 44 - 73 % 09/23/2020 1:28 PM [facility] Lymphocytes % Manual 20 20 - 43 % 09/23/2020 1:28 PM [facility] Monocytes % Manual 5 5 - 13 % 09/23/2020 1:28 PM [facility] Atypical Lymphocyte % Manual 23(H) <=0 % 09/23/2020 1:28 PM MAORI LIAISON ADVISER [facility] [place] Manual 1(H) <=0 % 09/23/2020 1:28 PM [facility] Cells Counted 100 # cells 09/23/2020 1:28 PM [facility] Path Review Hematology Slide sent for Path review 09/23/2020 1:28 PM [facility] Platelet Estimation Adequate platelets Normal, Adequate platelets 09/23/2020 1:28 PM [facility] WBC Morph Normal 09/23/2020 1:28 PM [facility] Anisocytosis 1+(A) None 09/23/2020 1:28 PM [facility] Hypochromia 1+(A) None 09/23/2020 1:28 PM [facility] Comment:This is an appended report. These results have been appended to a previously preliminary verified report. Microcytosis 1+(A) None 09/23/2020 1:28 PM [facility] Comment:This is an appended report. These results have been appended to a previously preliminary verified report. Blood BLOOD SPECIMEN / Unknown Venipuncture / Unknown 09/22/2020 12:40 PM MAORI LIAISON ADVISER 09/22/2020 12:48 PM MAORI LIAISON ADVISER Caden Carlos MD LAB - HEMATOLOGY ORD ERABLES Performing Organization Address City/[facility]/ZIP Co de Phone Number [facility] [address] [place] [id number] * TSH REFLEX FREE T4 (09/22/2020 12:18 PM MAORI LIAISON ADVISER) TSH 1.310 0.350 - 4.940 uIU/mL 09/22/2020 1:06 PM MAORI LIAISON ADVISER [facility] Blood BLOOD SPECIMEN / Unknown Venipuncture / Unknown 09/22/2020 12:18 PM MAORI LIAISON ADVISER 09/22/2020 12:28 PM MAORI LIAISON ADVISER Caden Carlos MD LAB - CHEMISTRY ELIZA LINTON Performing Organization Address [facility] Co de Phone Number [facility] [address] [place] [address] * TROPONIN I (09/22/2020 12:18 PM MAORI LIAISON ADVISER) Only the most recent of2 resultswithin the time period is included. Troponin I <0.010 <0.038 ng/mL 09/22/2020 12:51 PM MAORI LIAISON ADVISER [facility] Blood BLOOD SPECIMEN / Unknown Venipuncture / Unknown 09/22/2020 12:18 PM MAORI LIAISON ADVISER 09/22/2020 12:28 PM MAORI LIAISON ADVISER Caden Carlos MD LAB - CHEMISTRY ELIZA LINTON Performing Organization Address City/[facility]/ZIP Co de Phone Number [facility] [address] [place] [id number] * HCG BETA BLOOD QUANTITATIVE (09/22/2020 12:18 PM MAORI LIAISON ADVISER) Only the most recent of6 resultswithin the time period is included. hCG Quantitative <1.20 mIU/mL 09/22/19 1:06 PM MAORI LIAISON ADVISER [facility] Blood BLOOD SPECIMEN / Unknown Venipuncture / Unknown 09/22/2020 12:18 PM MAORI LIAISON ADVISER 09/22/2020 12:28 PM MAORI LIAISON ADVISER Narrative [facility] - 09/22/2020 1:06 PM MAORI LIAISON ADVISER ? hCG Reference Range, mIU/mL: ? Males [...] - CHEMISTRY ELIZA LINTON Performing Organization Address City/[facility]/ZIP Co de Phone Number [facility] [address] [place] [address] * EKG 12-LEAD (09/22/2020 11:44 AM MAORI LIAISON ADVISER) Ventricular Rate 98 BPM [facility] Atrial Rate 98 BPM [facility] P-R Interval 104 ms [facility] QRS Duration ms 68 ms [facility] Q-T Interval ms 346 ms [facility] QTC Calculation (Bezet) 441 ms [facility] Calculated P [place] 59 degrees [facility] Calculated R [place] 40 degrees [facility] Calculated T [place] 46 degrees [facility] Interpretation EKG SINUS RHYTHM WITH SHORT WV OTHERWISE NORMAL ECG NO PREVIOUS ECGS AVAILABLE Confirmed by Juan Carlos Fish ([id number]) on 09/23/2020 7:10:23 AM [facility] 09/22/2020 11:4 4 AM MAORI LIAISON ADVISER 09/23/2020 7:10 AM MAORI LIAISON ADVISER Caden Carlos MD ECG ORDERABLES Performing Organization Address [facility] Co de Phone Number [facility] MUSE * (ABNORMAL) URINE MICROSCOPIC ONLY REFLEX TO CULTURE (08/24/2020 8:35 PM MAORI LIAISON ADVISER) Only the most recent of3 resultswithin the time period is included. Reflex Status Culture not indicated 08/24/2020 8:43 PM MAORI LIAISON ADVISER [facility] RBC UA 0-2 None Seen, 0-2, 3-5 # /hpf 08/24/2020 8:43 PM MAORI LIAISON ADVISER [facility] WBC UA 0-5 None Seen, 0-5 # /hpf 08/24/2020 8:43 PM MAORI LIAISON ADVISER [facility] Bacteria UA Trace(A) None Seen 08/24/2020 8:43 PM MAORI LIAISON ADVISER [facility] Squamous Epithelial Cells 11-20(A) None Seen, 0-2, 3-5 /hpf 08/24/2020 8:43 PM [facility] Mucus UA 1+ /LPF 08/24/2020 8:43 PM [facility] Urine URINE SPECIMEN OBTAINED BY CLEAN CATCH PROCEDURE / Unknown Collection / Unknown 08/24/2020 8:35 PM MAORI LIAISON ADVISER 08/24/2020 8:37 PM MAORI LIAISON ADVISER [facility] - 08/24/2020 8:43 PM MAORI LIAISON ADVISER Rob Hernandez PA-C LAB - URINALYSIS OR DERABLES [facility] [address] [place] [address] * (ABNORMAL) URINALYSIS REFLEX MICROSCOPIC REFLEX CULTURE (08/24/2020 8:35 PM MAORI LIAISON ADVISER) Only the most recent of7 resultswithin the time period is included. Color UA Yellow Straw, Yellow 08/24/2020 8:41 PM [facility] Clarity UA Cloudy(A) Clear 08/24/2020 8:41 PM [facility] Glucose UA Negative Negative 08/24/2020 8:41 PM [facility] Bilirubin UA Negative Negative 08/24/2020 8:41 PM [facility] Ketone UA Negative Negative 08/24/2020 8:41 PM [facility] Specific [place] UA 1.009 1.005 - 1.030 08/24/2020 8:41 PM [facility] Blood UA 2+(A) Negative 08/24/2020 8:41 PM [facility] pH UA 6.0 5.0 - 8.0 pH 08/24/2020 8:41 PM [facility] Protein UA Negative Negative 08/24/2020 8:41 PM [facility] Urobilinogen UA Negative Negative mg/dL 08/24/2020 8:41 PM [facility] Nitrite UA Negative Negative 08/24/2020 8:41 PM [facility] Leukocyte UA Negative Negative 08/24/2020 8:41 PM [facility] Urine Microscopy Urine microscopy to follow 08/24/2020 8:41 PM [facility] Reflex Status Culture not indicated 08/24/2020 8:41 PM [facility] Urine URINE SPECIMEN OBTAINED BY CLEAN CATCH PROCEDURE / Unknown Collection / Unknown 08/24/2020 8:35 PM MAORI LIAISON ADVISER 08/24/2020 8:37 PM MAORI LIAISON ADVISER Narrative [facility] - 08/24/2020 8:41 PM MAORI LIAISON ADVISER Rob Hernandez PA-C LAB - URINALYSIS OR DERABLES Performing Organization Address City/[facility]/ZIP Co de Phone Number [facility] [address] [place] [address] * (ABNORMAL) LIPASE BLOOD (08/24/2020 8:20 PM MAORI LIAISON ADVISER) Only the most recent of3 resultswithin the time period is included. Lipase 100(H) 8 - 78 U/L 08/24/2020 8:39 PM MAORI LIAISON ADVISER [facility] Blood BLOOD SPECIMEN / Unknown Venipuncture / Unknown 08/24/2020 8:20 PM MAORI LIAISON ADVISER 08/24/2020 8:23 PM MAORI LIAISON ADVISER Rob Hernandez PA-C LAB - CHEMISTRY ORD ERABLES Performing Organization Address [facility] Co de Phone Number [facility] [address] [place] [address] * CT ANGIO HEAD NECK STROKE (08/09/2019 9:30 AM MAORI LIAISON ADVISER) Anatomical Region Laterality Modality Head Computed Tomogra phy 08/09/2019 9:33 AM MAORI LIAISON ADVISER Impressions 08/09/2019 9:45 AM MAORI LIAISON ADVISER 1. ??Widely patent carotid and vertebral arteries. CT angiogram brain: The distal internal carotid arteries are patent. Both middle cerebral arteries are patent. ??There is no stenosis, occlusion or aneurysm. The anterior cerebral arteries are patent. ??No stenosis, occlusion or aneurysm. The posterior cerebral arteries are patent. ??There is slight chronic narrowing in the right P2 segment which is unchanged since last year. Neither posterior communicating artery is seen which is usually an incidental at the patient's age. The distal vertebral arteries are patent and join to form a normal basilar artery. No abnormal brain parenchymal enhancement. ??The major intracranial venous sinuses enhance normally. IMPRESSION: 1. ??No acute intracranial vascular findings. 2. ??No change since 2018. Reading Radiologist: Niurka Ewing MD on 08/09/2019 at 9:45 AM Narrative 08/09/2019 9:45 AM MAORI LIAISON ADVISER CT angiogram head and neck with contrast DATE: 08/09/2019. INDICATION: Left-sided weakness and facial numbness. ??History of resected brain mass 2017. TECHNIQUE: Multidetector enhanced CT angiography through the neck and brain utilizing 100 cc of Isovue-370 intravenously with multiplanar and MIP reformations. COMPARISONS: CT angiogram head and neck from 10/22/2017. CT angiogram neck: The lung apices are clear. ??There is an incidental azygos lobe. ??The visualized aortic arch is unremarkable. ??The brachycephalic artery is widely patent. ??The right carotid artery is widely patent. ??The right internal and extra carotid arteries are patent. The left common carotid is widely patent. ??The left internal and extra carotid arteries are patent. Both vertebral arteries are widely patent and are symmetric throughout the neck. ??The vessels joint to form a normal basilar artery. Cervical soft tissue structures are unremarkable. ??Slightly enlarged mid cervical lymph nodes are chronic and are most likely reactive. Procedure Note Niurka Ewing MD - 08/09/2019 CT angiogram head and neck with contrast DATE: 08/09/2019. INDICATION: Left-sided weakness and facial numbness. History of resected brain mass 2017. TECHNIQUE: Multidetector enhanced CT angiography through the neck and brain utilizing 100 cc of Isovue-370 intravenously with multiplanar and MIP reformations. COMPARISONS: CT angiogram head and neck from 10/22/2017. CT angiogram neck: The lung apices are clear. There is an incidental azygos lobe. The visualized aortic arch is unremarkable. The brachycephalic artery is widely patent. The right carotid artery is widely patent. The right internal and extra carotid arteries are patent. The left common carotid is widely patent. The left internal and extra carotid arteries are patent. Both vertebral arteries are widely patent and are symmetric throughout the neck. The vessels joint to form a normal basilar artery. Cervical soft tissue structures are unremarkable. Slightly enlarged mid cervical lymph nodes are chronic and are most likely reactive. IMPRESSION 1. Widely patent carotid and vertebral arteries. CT angiogram brain: The distal internal carotid arteries are patent. Both middle cerebral arteries are patent. There is no stenosis, occlusion or aneurysm. The anterior cerebral arteries are patent. No stenosis, occlusion or aneurysm. The posterior cerebral arteries are patent. There is slight chronic narrowing in the right P2 segment which is unchanged since last year. Neither posterior communicating artery is seen which is usually an incidental at the patient's age. The distal vertebral arteries are patent and join to form a normal basilar artery. No abnormal brain parenchymal enhancement. The major intracranial venous sinuses enhance normally. IMPRESSION: 1. No acute intracranial vascular findings. 2. No change since 2018. Reading Radiologist: Niurka Ewing MD on 08/09/2019 at 9:45 AM Sirena Hickman MD CT ORDERABLES * PT-INR (08/09/2019 9:24 AM MAORI LIAISON ADVISER) Only the most recent of2 resultswithin the time period is included. PT 13.0 12.1 - 14.8 sec 08/09/2019 9:36 AM [facility] INR 1.0 0.9 - 1.1 08/09/2019 9:36 AM [facility] Blood BLOOD SPECIMEN / Unknown Venipuncture / Unknown 08/09/2019 9:24 AM MAORI LIAISON ADVISER 08/09/2019 9:23 AM [facility] Narrative [facility] - 08/09/2019 9:36 AM [facility] Conventional Warfarin Anticoagulant Therapy: INR Reference Range: ??2.0-3.0 Intensive Warfarin Anticoagulant Therapy: INR Reference Range: ? 2.5-3.5 Sirena Hickman MD LAB - COAGULATION OR DERABLES [facility] [address] [place] [address] * GLUCOSE - POINT OF CARE (08/09/2019 9:23 AM MAORI LIAISON ADVISER) Glucose WB/POC 93 70 - 106 mg/dL 08/09/2019 9:30 AM [facility] Specimen Type Venous 08/09/2019 9:30 AM [facility] Blood BLOOD SPECIMEN / Unknown 08/09/2019 9:23 AM MAORI LIAISON ADVISER 08/09/2019 9:30 AM MAORI LIAISON ADVISER Sirena Hickman MD LAB - POINT OF CARE ORDERABLES [facility] [address] [place] [address] * CT BRAIN - Stroke (08/09/2019 9:16 AM MAORI LIAISON ADVISER) Anatomical Region Laterality Modality Head Computed Tomogra phy 08/09/2019 9:18 AM MAORI LIAISON ADVISER Impressions 08/09/2019 9:23 AM MAORI LIAISON ADVISER 1. ??No acute findings. 2. ??Chronic focal encephalomalacia in the left frontal-parietal vertex with accompanying chronic craniotomy changes Reading Radiologist: Niurka Ewing MD on 08/09/2019 at 9:23 AM Narrative 08/09/2019 9:23 AM [address]I LIAISON ADVISER CT brain, noncontrast DATE: 08/09/2019 INDICATION: Left facial numbness, left-sided weakness, possible acute stroke. ??History of resected brain tumor TECHNIQUE: Multidetector helical nonenhanced CT through the brain with reformations. COMPARISON: Head CTs from 10/22/2017 and 03/09/2017 FINDINGS: There is a chronic small focus of encephalomalacia in the left frontoparietal vertex which is unchanged since last year. ??Associated chronic craniotomy changes are noted in the right parietal vertex. Brain parenchyma otherwise has normal density. There is no extra-axial fluid collection, mass effect, midline shift or hydrocephalus. There is no acute or chronic hemorrhage. No CT evidence for acute ischemia is present. The visualized paranasal sinuses and mastoid air-cells are clear. ASPECTS score of 10. Findings were called by Dr. Ewing to Dr. Hickman at 0921 hours on06/09/2019. Procedure Note Niurka Ewing MD - 08/09/2019 CT brain, noncontrast DATE: 08/09/2019 INDICATION: Left facial numbness, left-sided weakness, possible acute stroke. History of resected brain tumor TECHNIQUE: Multidetector helical nonenhanced CT through the brain with reformations. COMPARISON: Head CTs from 10/22/2017 and 03/09/2017 FINDINGS: There is a chronic small focus of encephalomalacia in the left frontoparietal vertex which is unchanged since last year. Associated chronic craniotomy changes are noted in the right parietal vertex. Brain parenchyma otherwise has normal density. There is no extra-axial fluid collection, mass effect, midline shift or hydrocephalus. There is no acute or chronic hemorrhage. No CT evidence for acute ischemia is present. The visualized paranasal sinuses and mastoid air-cells are clear. ASPECTS score of 10. Findings were called by Dr. Ewing to Dr. Hickman at 0921 hours on06/09/2019. IMPRESSION 1. No acute findings. 2. Chronic focal encephalomalacia in the left frontal-parietal vertex with accompanying chronic craniotomy changes Reading Radiologist: Niurka Ewing MD on 08/09/2019 at 9:23 AM Sirena Hickman MD CT ORDERABLES * US OB LESS THAN 14 WKS W DOPPLER (01/03/2018 9:35 AM CDT) Anatomical Region Laterality Modality Ultrasound 01/03/2018 9:36 AM CDT Impressions 01/03/2018 10:02 AM CDT Viable intrauterine with estimated age of 14 weeks and 2 days. Dedicated anatomy exam is recommended for evaluation of the anatomy when clinically appropriate. Edited by Nathaly Peraza on 01/03/2018 9:47 AM Reading Radiologist: Massimo Oropeza MD on 01/03/2018 at 10:02 AM Narrative 01/03/2018 10:02 AM CDT EXAM: Pelvic sonogram with transabdominal and transvaginal views. Color Doppler evaluation and spectral wave analysis are performed. History: Right lower quadrant abdominal pain. Findings: This exam is limited and not designed to evaluate anatomy. Dedicated anatomy scan is recommended when clinically appropriate. The uterus measures 13.0 x 6.6 x 10.9 cm. The right ovary measures 4.5 x 2.4 x 1.9 cm. A complex appearing cyst is seen in the right ovary measuring 2.5 x 1.7 x 2.3 cm. A gestational sac is seen within the endometrial canal containing a pole. The estimated age by sonographic measurements is 14 weeks and 2 days. The heart rate is 147 beats per minute. Procedure Note Massimo Oropeza MD - 01/03/2018 EXAM: Pelvic sonogram with transabdominal and transvaginal views. Color Doppler evaluation and spectral wave analysis are performed. History: Right lower quadrant abdominal pain. Findings: This exam is limited and not designed to evaluate anatomy. Dedicated anatomy scan is recommended when clinically appropriate. The uterus measures 13.0 x 6.6 x 10.9 cm. The right ovary measures 4.5 x 2.4 x 1.9 cm. A complex appearing cyst is seen in the right ovary measuring 2.5 x 1.7 x 2.3 cm. A gestational sac is seen within the endometrial canal containing a pole. The estimated age by sonographic measurements is 14 weeks and 2 days. The heart rate is 147 beats per minute. IMPRESSION Viable intrauterine with estimated age of 14 weeks and 2 days. Dedicated anatomy exam is recommended for evaluation of the anatomy when clinically appropriate. Edited by Nathaly Peraza on 01/03/2018 9:47 AM Reading Radiologist: Massimo Oropeza MD on 01/03/2018 at 10:02 AM Russell Sood DO US ORDERABLES * (ABNORMAL) HCG URINE QUALITATIVE - POCT (IP) INTERFACED (01/03/2018 8:21 AM CDT) HCG Qual Urine Positive(A ) Negative 01/03/2018 8:26 AM CDT [facility] Urine URINE / Unknown 01/03/2018 8 :21 AM CDT 01/03/2018 8:26 AM CDT Russell Sood DO LAB - POINT OF CARE ORDERABLES Performing Organization Address City/State/[facility] Co de Phone Number [facility] [address] [place] [address] * CULTURE URINE (01/03/2018 8:18 AM CDT) Only the most recent of4 resultswithin the time period is included. Culture Urine 10,000-50,000 CFU/mL urogenital stephanie BRYANT 01/04/2018 1:13 PM CDT [facility] Urine URINE SPECIMEN OBTAINED BY CLEAN CATCH PROCEDURE / Unknown Collection / Unknown 01/03/2018 8:18 AM CDT 01/03/2018 8:50 AM CDT Russell Sood DO LAB - MICROBIOLOGY O RDERABLES Performing Organization Address [facility] Co de Phone Number [facility]CROBIOLOG[facility] [address] [place] [address], [facility] [phone] * HCG URINE QUAL POCT NOTIFICATION (01/03/2018 8:15 AM CDT) Comment Notification Label Only - See Separate Report 01/03/2018 10:00 AM CDT [facility] Urine URINE / Unknown 01/03/2018 8 :15 AM CDT 01/03/2018 8:15 AM CDT Russell Sood DO LAB - URINALYSIS ORD ERABLES Performing Organization Address [facility] de Phone Number [facility] [address] [place] [id number] * MAGNESIUM BLOOD (01/03/2018 8:11 AM CDT) Only the most recent of2 resultswithin the time period is included. Magnesium 1.9 1.6 - 2.6 mg/dL 01/03/2018 8:33 AM CDT [facility] Blood BLOOD SPECIMEN / Unknown Venipuncture / Unknown 01/03/2018 8:11 AM CDT 01/03/2018 8:14 AM CDT Russell Sood DO LAB - CHEMISTRY ELIZA LINTON Performing Organization Address [facility] Co de Phone Number [facility] [address] [place] [address] [phone] * CT ANGIO NECK HEAD W WO CONTRAST (CTA for STROKE) (10/22/2017 2:32 PM CDT) Only the most recent of2 resultswithin the time period is included. Anatomical Region Laterality Modality Head Computed Tomogra phy 10/22/2017 2:37 PM CDT Impressions 10/22/2017 2:48 PM CDT 1. No large arterial occlusions or significant stenoses identified in the head or neck. Narrative 10/22/2017 2:48 PM CDT EXAMINATION: 1. Computed tomography angiography (CTA) of the head and neck with contrast. HISTORY: Unspecified visual disturbance TECHNIQUE: CT angiography of the head and neck was obtained after the uneventful administration of 100 mL Omnipaque 350 intravenous contrast. Three dimensional postprocessing was performed by the technologist and sent to the workstation for review. FINDINGS: Comparison is made with the previous study March 09, 2017. Angiographic findings: The visualized aortic arch appears normal. The configuration of the brachiocephalic vessels is typical. The innominate artery and both subclavian arteries appear normal. The common carotid arteries appear normal. The carotid bifurcations appear normal. The cervical internal carotid arteries appear normal. The cervical vertebral arteries appear normal. The distal internal carotid arteries appear normal. The anterior and middle cerebral arteries appear normal. The distal vertebral arteries appear normal. The basilar artery and posterior cerebral arteries appear normal. No aneurysms, vascular occlusions, or intracranial stenoses are identified. Procedure Note Massimo Oropeza MD - 10/22/2017 EXAMINATION: 1. Computed tomography angiography (CTA) of the head and neck with contrast. HISTORY: Unspecified visual disturbance TECHNIQUE: CT angiography of the head and neck was obtained after the uneventful administration of 100 mL Omnipaque 350 intravenous contrast. Three dimensional postprocessing was performed by the technologist and sent to the workstation for review. FINDINGS: Comparison is made with the previous study March 09, 2017. Angiographic findings: The visualized aortic arch appears normal. The configuration of the brachiocephalic vessels is typical. The innominate artery and both subclavian arteries appear normal. The common carotid arteries appear normal. The carotid bifurcations appear normal. The cervical internal carotid arteries appear normal. The cervical vertebral arteries appear normal. The distal internal carotid arteries appear normal. The anterior and middle cerebral arteries appear normal. The distal vertebral arteries appear normal. The basilar artery and posterior cerebral arteries appear normal. No aneurysms, vascular occlusions, or intracranial stenoses are identified. IMPRESSION 1. No large arterial occlusions or significant stenoses identified in the head or neck. Russell Sood DO CT ORDERABLES * CT HEAD NON CONTRAST (10/22/2017 2:31 PM CDT) Only the most recent of3 resultswithin the time period is included. Anatomical Region Laterality Modality Head Computed Tomogra phy 10/22/2017 2:26 PM CDT Impressions 10/22/2017 2:29 PM CDT 1. No acute intracranial process. 2. Suggestion of removal of a small hyperattenuating mass in the level of the foramen of Cummings likely representing a colloid cyst. There is also resultant encephalomalacia noted just superior to the body of the left lateral ventricle. This may be postsurgical. Narrative 10/22/2017 2:29 PM CDT EXAMINATION: Computed tomography (CT) of the head without contrast HISTORY: Head pain. TECHNIQUE: CT of the head was performed without contrast according to standard protocol. FINDINGS: Comparison is made with the previous study of March 09, 2017. No acute intra- or extra-axial fluid collections are identified. The ventricles are of normal size, shape, and morphology. The basilar cisterns are patent. No mass effect or midline shift is seen. The perez-white matter differentiation is normal. There may be small area of encephalomalacia overlying the body of the left lateral ventricle as seen on image 42 series 602B. This appears new since the prior study. This could also be related to prior instrumentation. The previously seen hyperattenuating density noted in the region of the third ventricle is no longer identified. The visualized portions of the orbits, paranasal sinuses, and mastoids appear normal. No acute fracture is identified. There is a small cranial defect seen in the right frontal bone which is likely related to prior surgery. Procedure Note Massimo Oropeza MD - 10/22/2017 EXAMINATION: Computed tomography (CT) of the head without contrast HISTORY: Head pain. TECHNIQUE: CT of the head was performed without contrast according to standard protocol. FINDINGS: Comparison is made with the previous study of March 09, 2017. No acute intra- or extra-axial fluid collections are identified. The ventricles are of normal size, shape, and morphology. The basilar cisterns are patent. No mass effect or midline shift is seen. The perez-white matter differentiation is normal. There may be small area of encephalomalacia overlying the body of the left lateral ventricle as seen on image 42 series 602B. This appears new since the prior study. This could also be related to prior instrumentation. The previously seen hyperattenuating density noted in the region of the third ventricle is no longer identified. The visualized portions of the orbits, paranasal sinuses, and mastoids appear normal. No acute fracture is identified. There is a small cranial defect seen in the right frontal bone which is likely related to prior surgery. IMPRESSION 1. No acute intracranial process. 2. Suggestion of removal of a small hyperattenuating mass in the level of the foramen of Cummings likely representing a colloid cyst. There is also resultant encephalomalacia noted just superior to the body of the left lateral ventricle. This may be postsurgical. Russell Sood DO CT ORDERABLES * HCG URINE QUALITATIVE - POINT OF CARE (IP) (10/22/2017 1:46 PM CDT) Only the most recent of5 resultswithin the time period is included. HCG Qual Urine Negative Negative [facility] POCT TESTING QC Verified Yes Yes [facility] POC T TESTING Urine URINE / Unknown 10/22/2017 1 :46 PM CDT Russell Sood DO LAB - POINT OF CARE ORDERABLES Performing Organization Address [facility] Co de Phone Number [facility] POCT TESTING [address] [place] [address] * TYPE + SCREEN PANEL (10/22/2017 1:33 PM CDT) Only the most recent of4 resultswithin the time period is included. ABO B 10/22/2017 2:22 PM CDT [facility] B[facility]OD [facility] LAB Rh Type Positive 10/22/2017 2:22 PM CDT [facility] Comment:History checked. Antibody Screen Negative 10/22/2017 2:22 PM CDT [facility] Blood Bank BLOOD SPECIMEN / Unknown Venipuncture / Unknown 10/22/2017 1:33 PM CDT 10/22/2017 1:36 PM CDT Russell Sood DO LAB - BLOOD BANK ORD ERABLES Performing Organization Address City/[facility] Co de Phone Number [facility] B[facility]OD [facility]ANK LAB [address] [place] [address] * (ABNORMAL) C-REACTIVE PROTEIN (10/22/2017 12:10 PM CDT) Pathologist [facility] C-Reactive Protein 0.47(H) <0.30 mg/dL 10/22/2017 1:42 PM CDT [facility] Blood BLOOD SPECIMEN / Unknown Venipuncture / Unknown 10/22/2017 12:10 PM CDT 10/22/2017 1:30 PM CDT Russell Sood DO LAB - CHEMISTRY ORDE RABLES Performing Organization Address [facility] Co de Phone Number [facility] [address] [place] [address] * (ABNORMAL) ERYTHROCYTE SEDIMENTATION RATE (10/22/2017 12:10 PM CDT) [facility] Erythrocyte Sedimentation Rate Automated 24(H) 0 - 20 MM/HR 10/22/2017 1:31 PM CDT [facility] Blood BLOOD SPECIMEN / Unknown Venipuncture / Unknown 10/22/2017 12:10 PM CDT 10/22/2017 12:19 PM CDT Russell Sood DO LAB - HEMATOLOGY ORD ERABLES Performing Organization Address [facility] de Phone Number [facility] [address] [place] [address] * GLUCOSE ACCUCHECK (03/20/2017 7:28 AM CDT) Only the most recent of13 resultswithin the time period is included. Pathologist [facility] Glucose, Fingerstick 102 70-115mg/d L mg/dL [facility] EL[facility] (BEAKER) Comment:Rubber Tile Floor Layer: OLAF CASTILLOEY 03/20/2017 7:28 AM CDT Narrative [facility] (BEAKER) - 03/20/2017 7:28 AM CDT Ordered by Juliano Crandall Historical Provider LAB - CHEMISTRY O ANTHONY Performing Organization Address City/[facility]/ZIP Co de Phone Number [facility] HUANG) * (ABNORMAL) BASIC METABOLIC PANEL (CALCIUM TOTAL) (03/20/2017 12:27 AM CDT) Only the most recent of9 resultswithin the time period is included. BUN 23 7 - 26 mg/dL [facility] Creatinine 0.9 0.6 - 1.2 mg/dL [facility] Sodium 144 136 - 145 mmol/L [facility] Potassium 3.3(L) 3.5 - 4.5 mmol/L [facility] Chloride 110(H) 98 - 107 mmol/L [facility] CO2 18(L) 22 - 29 mmol/L [facility] Glucose 115 70 - 115 mg/dL [facility] Calcium 9.5 8.4 - 10.2 mg/dL [facility] Anion Gap 19(H) 8 - 18 [facility] BUN/Creatinine Ratio 26(H) 7 - 23 [facility] Osmolality Calculated 303(H) 270 - 300 mOsm/kg [facility] eGFR >60 >60 mL/min/1.7 3 m2 [facility] Blood specimen (specimen) BLOOD SPECIMEN / Unknown 03/20/2017 12:27 AM CDT 03/20/2017 12:30 AM CDT Steffi Henao MD LAB - CHEMISTRY ORDE [facility] Organization Address City/State/ZIP Co de Phone Number [facility] [address] [phone] * MRI BRAIN WWO CONTRAST (03/16/2017 6:44 PM CDT) Only the most recent of2 resultswithin the time period is included. Anatomical Region Laterality Modality Head Other Impressions 03/17/2017 6:48 AM CDT IMPRESSION: 1. 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 This report was electronically signed by JACEK LANCASTER M.D. ??on 03/17/2017 6:48 AM . Narrative 03/17/2017 6:48 AM CDT This is a summary report. The complete report is available in the patient's medical record. If you cannot access the medical record, please contact the sending organization for a detailed fax or copy. EXAMINATION: Magnetic resonance imaging (MRI) of the brain without and with contrast HISTORY: Colloid cyst TECHNIQUE: MRI of the brain was performed prior to and following the uneventful administration of 10 mL Gadavist intravenous gadolinium contrast according to a tumor protocol. FINDINGS: Comparison is made with a study from 10 March 2017. A frontal craniotomy has been performed for interhemispheric transcallosal resection of a third ventricular colloid cyst with small volume fluid and pneumocephalus along the right frontal convexity, pneumocephalus in the left lateral ventricle, and a small amount of blood products along the resection tract and in the left lateral ventricle. No evidence of acute cerebral infarction is seen. The ventricles are nondilated. No midline shift is identified. No residual colloid cyst is seen. There is thin postoperative pachymeningeal enhancement along the right cerebral convexity. The sella appears normal. The posterior fossa, brainstem, and craniocervical junction appear normal. The visualized portions of the orbits, paranasal sinuses, and mastoids appear normal. Normal flow voids are demonstrated in the carotid arteries and basilar artery. The calvarium and visualized cervical spine appear normal. Procedure Note Jacek Lancaster MD - 11/09/2017 This is a summary report. The complete report is available in thepatient's medical record. If you cannot access the medical record, pleasecontact the sending organization for a detailed fax or copy. EXAMINATION: Magnetic resonance imaging (MRI) of the brain without andwith contrast HISTORY: Colloid cyst TECHNIQUE: MRI of the brain was performed prior to and following theuneventful administration of 10 mL Gadavist intravenous gadoliniumcontrast according to a tumor protocol. FINDINGS: Comparison is made with a study from 10 March 2017. A frontal craniotomy has been performed for interhemispheric transcallosalresection of a third ventricular colloid cyst with small volume fluid andpneumocephalus along the right frontal convexity, pneumocephalus in theleft lateral ventricle, and a small amount of blood products along the resection tract and in the leftlateral ventricle. No evidence of acute cerebral infarction is seen. Theventricles are nondilated. No midline shift is identified. No residualcolloid cyst is seen. There is thin postoperative pachymeningeal enhancement along the right cerebralconvexity. The sella appears normal. The posterior fossa, brainstem, andcraniocervical junction appear normal. The visualized portions of the orbits, paranasal sinuses, and mastoidsappear normal. Normal flow voids are demonstrated in the carotid arteriesand basilar artery. The calvarium and visualized cervical spine appearnormal. IMPRESSION IMPRESSION: 1. 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 This report was electronically signed by JACEK LANCASTER M.D. on 03/17/20176:48 AM . Steffi Henao MD MR ORDERABLES * PATHOLOGY TISSUE (03/14/2017 2:05 PM CDT) Surgical Pathology Tissue ACCESSION No: [id number] CLINICAL HISTORY: Brain mass. FINAL DIAGNOSIS: BRAIN, STEREOTACTIC BIFRONTAL CRANIOTOMY, RESECTION: - ? COLLOID CYST - ? SEE COMMENT GROSS DESCRIPTION: Received fixed in formalin in one container for gross and microscopic examination, labeled with the patient's name, Vera Purdy and colloid cyst , is one 0.9 x 0.6 x 0.6 cm oval, white-ling portion of tissue. ??The specimen is inked black and bisected revealing firm, white-yellow material. The specimen is submitted entirely in cassette A1. KH/edk MICROSCOPIC DESCRIPTION: Hematoxylin and eosin-stained sections of the colloid cyst show a hypocellular fibrous wall lined by ciliated simple columnar epithelium overlying acellular, amorphous, proteinaceous material. ??There is no evidence of malignancy. KS/KH The performance characteristics of all immunohistochemical and indirect immunofluorescence stains (if any) cited in this report were determined by the Histopathology Laboratory of [facility].?? Some of these tests were developed by our own laboratory and have not been cleared or approved by the US Food and Drug Administration.?The FDA does not require this test to go through premarket FDA review.?These tests are used for clinical purposes. They should not be regarded as investigational or for research.?? This laboratory is certified under the Clinical Laboratory Improvement Amendments (CLIA) as qualified to perform high complexity clinical laboratory testing. This case has been personally reviewed and interpreted by the attending (teaching) pathologist. Final Diagnosis performed by Aicha Taylor MD. Electronically signed 03/15/2017 [facility] ([facility]) Resection without Tumor CYST TISSUE / Unknown 03/14/2017 2:05 PM CDT 03/14/2017 3:08 PM CDT Narrative [facility] ([facility]) - 03/15/2017 10:58 PM CDT Pre-op diagnosis: COLLOID CYST Steffi Henao MD LAB - PATHOLOGY/CYTO LOGY ORDERABLES [facility] ([facility]) * CT GUIDED STEREO LOCALIZATION (03/13/2017 5:08 PM CDT) Anatomical Region Laterality Modality Breast Other Impressions 03/14/2017 6:39 AM CDT IMPRESSION: 1. Oval-shaped hyperdense lesion in the midline along the superior aspect of the third ventricle in the region of the foramen of Cummings measuring approximately 9 mm x 6.5 mm consistent with reported colloid cyst. No ventriculomegaly. This report was electronically signed by ADAM KNOX M.D. ??on 03/14/2017 6:39 AM . Narrative 03/14/2017 6:39 AM CDT EXAMINATION: Computed tomography (CT) of the head without contrast HISTORY: stereotactic preoperative study for resection of colloid cyst TECHNIQUE: CT of the head was performed without contrast according to stereotactic protocol. FINDINGS: Comparison is made to prior brain MR from 03/10/2017. There is an oval-shaped hyperdense lesion in the midline along the superior aspect of the third ventricle in the region of the foramen of Cummings measuring approximately 9 mm in AP dimension and 6.5 mm in transverse dimension (series 2 image 92) which is consistent with a colloid cyst. No ventriculomegaly. Stereotactic markers overlie the calvarium. The basilar cisterns are patent. No mass effect or midline shift is seen. The perez-white matter differentiation is normal. The visualized portions of the orbits, paranasal sinuses, and mastoids appear normal. No acute fracture is identified. Procedure Note Adam Knox MD - 11/09/2017 EXAMINATION: Computed tomography (CT) of the head without contrast HISTORY: stereotactic preoperative study for resection of colloid cyst TECHNIQUE: CT of the head was performed without contrast according tostereotactic protocol. FINDINGS: Comparison is made to prior brain MR from 03/10/2017. There is an oval-shaped hyperdense lesion in the midline along thesuperior aspect of the third ventricle in the region of the foramen ofMonroe measuring approximately 9 mm in AP dimension and 6.5 mm intransverse dimension (series 2 image 92) which is consistent with a colloid cyst. No ventriculomegaly. Stereotactic markersoverlie the calvarium. The basilar cisterns are patent. No mass effect ormidline shift is seen. The perez-white matter differentiation is normal.The visualized portions of the orbits, paranasal sinuses, and mastoids appear normal. No acute fractureis identified. IMPRESSION IMPRESSION: 1. Oval-shaped hyperdense lesion in the midline along the superior aspectof the third ventricle in the region of the foramen of Cummings measuringapproximately 9 mm x 6.5 mm consistent with reported colloid cyst. Noventriculomegaly. This report was electronically signed by ADAM KNOX M.D. on 03/14/20176:39 AM . Kyra Cano APRN-CAR [facility] CT ORDERABLES * CROSSMATCH RBC LEUKOREDUCED (03/13/2017 10:05 AM CDT) 03/13/2017 10:0 5 AM CDT 03/13/2017 10:05 AM CDT Narrative [facility] - 03/13/2017 10:05 AM CDT # of Units->2 Eleanor Cantu PA-C LAB - BLOOD BA NK ORDERABLES [facility] [address] [place] [address], [facility] * HCG URINE QUALITATIVE - POCT (IP) [facility] (03/09/2017 4:22 PM CDT) Test Urine negative [facility] Urine specimen (specimen) 03/09/2017 4:22 PM CDT Narrative [facility] - 03/09/2017 4:22 PM CDT negative Eagle Mensah MD LAB - POINT OF CARE ORDERABLES Performing Organization Address City/[facility]/ZIP Co de Phone Number [facility] * PTT U (03/09/2017 4:21 PM CDT) APTT 29.1 23.0 - 38.4 Seconds [facility] Comment:Suggested therapeuti c range for full dose I.V. heparin therapy for venous thromboembolism is 66.0-91.0 seconds. Blood specimen (specimen) BLOOD SPECIMEN / Unknown 03/09/2017 4:21 PM CDT 03/09/2017 4:28 PM CDT Narrative [facility] - 03/09/2017 4:39 PM CDT Please ensure that the aPTT specimen is received in the clinical lab within 1 hour of collection if it is used for therapeutic heparin monitoring. Processing of heparinized specimens older than 1 hour may result in inaccurate test results. Is patient on Heparin, Argatroban or Dabigatran?->N Eagle Mensah MD LAB - COAGULATION OR DERABLES Performing Organization Address [facility] Co de Phone Number [address] [phone] * PT-INR [facility] (03/09/2017 4:21 PM CDT) PT 12.1 12.1 - 14.8 Seconds [facility] INR 0.9 See Comment [facility] Comment: Suggested therapeutic range for low-intensity coumadin therapy for venous thromboembolism prophylaxis is an INR of 2.0-3.0. ??For high risk patients (Mitral Valve Prosthesis, Atrial Fibrillation, history of TIA/stroke), suggested prophylactic therapeutic range is an INR of 2.5-3.5. Blood specimen (specimen) BLOOD SPECIMEN / Unknown 03/09/2017 4:21 PM CDT 03/09/2017 4:28 PM CDT Narrative [facility] - 03/09/2017 4:38 PM CDT Is patient on Heparin, Argatroban or Dabigatran?->N Eagle Mensah MD LAB - COAGULATION [place] [address], [facility] [phone] * ED INCISION AND DRAINAGE (11/21/2014 9:21 PM CDT) Narrative Cabrera Braun, - 11/21/2014 9:21 PM CDT Cabrera Braun, DO ? 11/21/2014 ??9:21 PM Provider contact with the patient: 11/21/2014 ?19:41 Vera Purdy [id number] [facility] History Chief Complaint Patient presents with ? ? POST-OP PROBLEM ??pt to ED with c/o having lymph nodes removed from right arm pit. pt reports to now having a red, swollen area and pus under the skin. pt denies any drainage at this time but reports it looks like its ready to start draining. area is painful and red. Chief complaint narrative was entered by triage nurse, not by physician. HPI Comments: 7:41 PM Vera Purdy is a 29 y.o. female with a past medical history of hypercholesteremia and GERD presents to the ER accompanied by her c/o pain, swelling, and drainage to the R arm after having lymph nodes removed due to enlargement from the R axilla. She states she followed up with the surgeon x3 days ago, but states the area has been progressively getting worse. ?? No headache/CP/SOB/Abd pain/nausea/vomiting/diarrhea/fever/chills/cough/rhinorrhea Allergies: Adhesive Sensitivity SocHx: Negative FMHx: HTN, Hypercholesteremia, DM Surgical Hx: Cholecystectomy, Hysteroscopy, Tympanoplasty, Physician: Hilda Eden BP 151/104 ?? Pulse 97 ?? Temp(Src) 98.1 ??F ?? Resp 18 ?? Ht 1.676 m (5' 6 ) ?? Wt 117.935 kg (260 lb) ?? BMI 41.99 kg/m2 ? SpO2 99% ??on RA. Past Medical History Diagnosis Date ? ? Polycystic ovaries ? Overweight, obesity and other hyperalimentation(278) ? Trichomonas 2007 ??treated ? ? Generalized anxiety disorder ? Depressive disorder, not elsewhere classified ? GERD (gastroesophageal reflux disease) ? Pure hypercholesterolemia ? Bipolar 1 disorder ?? Past Surgical History Procedure Laterality Date ? ? Tympanoplasty ?corrective hearing ? ? Cholecystectomy ? Hysteroscopy ? section ? Excision/ destruction tumor/mass Right 11/10/14 ??axillary and lymph node biopsy ? ? Excision/ destruction tumor/mass ??11/10/2014 ?? EXCISION MASS RIGHT AXILLARY Family History Problem Relation Age of Onset ? ? Diabetes Father ? Diabetes Maternal Grandmother ? Diabetes Brother ? Hypertension Mother ? Hypercholesterolemia Father ?? History Social History ? ? Marital Status: ??Spouse Name: N/A ??Number of Children: N/A ? ? Years of Education: N/A Occupational History ? ? Not on file. Social History Main Topics ? ? Smoking status: Former Smoker -- 1.00 packs/day for 4 years ??Types: Cigarettes ??Quit date: 06/13/2014 ? ? Smokeless tobacco: Never Used ? ? Alcohol Use: No ? ? Drug Use: No ? ? Sexual Activity: Yes Other Topics Concern ? ? Not on file Social History Narrative Review of Systems Review of Systems Constitutional: Negative for fever and chills. HENT: Negative for congestion. ?? Eyes: Negative for blurred vision and double vision. Respiratory: Negative for cough and shortness of breath. ?? Cardiovascular: Negative for chest pain and palpitations. Gastrointestinal: Negative for nausea, vomiting and abdominal pain. Musculoskeletal: Negative for back pain and neck pain. Skin: ? (+) Pain, swelling, and drainage to the R axilla ?? Neurological: Negative for dizziness, focal weakness and headaches. All other systems reviewed and are negative. Physical Exam BP 151/104 ?? Pulse 97 ?? Temp(Src) 98.1 ??F ?? Resp 18 ?? Ht 1.676 m (5' 6 ) ?? Wt 117.935 kg (260 lb) ?? BMI 41.99 kg/m2 ? SpO2 99% on RA Physical Exam Constitutional: She is oriented to person, place, and time. She appears well-developed and well-nourished. No distress. HENT: Head: Normocephalic and atraumatic. Eyes: Conjunctivae and EOM are normal. Pupils are equal, round, and reactive to light. Neck: Normal range of motion. Neck supple. No tracheal deviation present. Cardiovascular: Normal rate, regular rhythm and normal heart sounds. ?? Pulmonary/Chest: Effort normal and breath sounds normal. No stridor. No respiratory distress. Abdominal: Soft. She exhibits no distension and no mass. There is no tenderness. Musculoskeletal: Normal range of motion. She exhibits no tenderness. Neurological: She is alert and oriented to person, place, and time. No cranial nerve deficit. Skin: Skin is warm and dry. She is not diaphoretic. Surgical scar to the R axilla intact. There is tenderness and fluctuance, no obvious drainage. No redness. No evidence of cellulitis or infection. ?? Psychiatric: She has a normal mood and affect. Her behavior is normal. Nursing note and vitals reviewed. Medications Current Outpatient Prescriptions Medication Sig Dispense Refill ? ? oxyCODONE-acetaminophen (PERCOCET) 7.5-325 MG tablet Take 1 Tab by mouth every 4 hours as needed for Pain. ??20 Tab ??0 ? ? hydrocodone-acetaminophen (NORCO) 7.5-325 MG tablet Take 1 Tab by mouth every 4 hours as needed for Pain. ??30 Tab ??0 ? ? l-methylfolate (DEPLIN) 15 MG tablet Take 15 mg by mouth once daily. ? omeprazole (PRILOSEC) 20 MG capsule Take 20 mg by mouth daily before breakfast. ? dicyclomine (BENTYL) 10 MG capsule Take 10 mg by mouth 3 times daily. ? amitriptyline (ELAVIL) 25 MG tablet Take 25 mg by mouth at bedtime. ? buPROPion (WELLBUTRIN) 75 MG tablet Take 150 mg by mouth 3 times daily. ? oxyCODONE-acetaminophen (PERCOCET) 7.5-325 MG tablet Take 1 Tab by mouth at bedtime. ? folic hrye-zmwbygtpjr-tskfszzdckbrwz (FOLGARD) 0.8-10-0.115 MG tablet Take 1 Tab by mouth once daily. ? aspirin EC (ECOTRIN) 81 MG tablet Take 81 mg by mouth once daily. ? Vit-Fe Fumarate-FA ( VITAMIN) 28-0.8 MG tablet Take 1 Tab by mouth daily. ? Procedures Needle aspiration Date/Time: 11/21/2014 8:14 PM Performed by: CABRERA BRAUN Authorized by: CABRERA BRAUN Consent: Verbal consent obtained. Risks and benefits: risks, benefits and alternatives were discussed Consent given by: patient Patient understanding: patient states understanding of the procedure being performed Patient consent: the patient's understanding of the procedure matches consent given Procedure consent: procedure consent matches procedure scheduled Required items: required blood products, implants, devices, and special equipment available Patient identity confirmed: verbally with patient, arm band and hospital-assigned identification number Body area: upper extremity (R axilla) Anesthesia: local infiltration Local anesthetic: lidocaine 1% without epinephrine Patient sedated: no Needle gauge: 27. Drainage: serosanguinous (150cc) Patient tolerance: Patient tolerated the procedure well with no immediate complications ECG Interpretation ECG Interpretation Lab Interpretation ? Oxygen Saturation Interpretation The oxygen saturation level is: 99%. The patient was on Room Air for the saturation measurement. Measurement frequency: Spot Check. Oxygen saturation interpretation is Normal. Intervention(s) used: None. No results found for this visit on 11/21/14. No orders to display Progress Notes 7:43 PM: Initial Plan: Perform I&D. 8:21 PM: Pt recheck: The patient is updated with results and current condition. I discussed with the patient about the plan and disposition and she agrees. I have given the patient instructions regarding her diagnosis, expectations, follow up, and return precautions. I explained to the patient that emergent conditions may arise and to return to the ER for new, worsening, or any persistent conditions. I've explained the importance of following up with her doctor--Hilda Eden--(or the referral physician) as instructed. The patient verbalized understanding of the discharge instructions. All questions and concerns were addressed at this time. Pt is ready for discharge. ED Course Medical Decision Making I have reviewed the: Previous Chart, Nursing Notes and Vitals. I have interpreted the following results: Oxygen Saturation. I have discussed the case with Family/Caregiver. Orders Placed This Encounter ? ? ED INCISION AND DRAINAGE ? ? CULTURE FLUID+GRAM STAIN ? ? eezlcpzz-rkxlnotimb-thdhzmnzy (NEOSPORIN) topical ointment ? ? oxyCODONE-acetaminophen (PERCOCET) 7.5-325 MG tablet Based on pt's history and physical exam, pt presents to the ED with pain, swelling, and drainage to the R axilla s/p lymph node removal x5 days ago. Needle aspiration performed and removed 150cc serosanguinous fluid. Patient is afebrile. VSS. Patient will be discharged home with a rx for Percocet and is to f/u with Dr. Saeed for further evaluation. The patient's incision will be cleaned and dressed appropriately prior to discharge. My clinical impression is fluid collection at surgical site. Clinical Impression Final diagnoses: Fluid collection at surgical site, subsequent encounter New Medications: Discharge Medication List as of 11/21/2014 ??8:33 PM START taking these medications Details !! oxyCODONE-acetaminophen (PERCOCET) 7.5-325 MG tablet Disp-20 Tab, R-0, Take 1 Tab by mouth every 4 hours as needed for Pain., Print !! - Potential duplicate medications found. Please discuss with provider. I have advised the patient to follow-up with: Matthieu Saeed DO [facility] [address] Call in 2 days Hilda Eden APRN-[employer] Disposition: Discharged I have reviewed the information recorded by the scribe and agree with its accuracy and contents--Dr. Braun 11/21/2014 9:21 PM Transcribed by Maynor Langford acting scribe on behalf of Dr. Braun 11/21/2014 8:34 PM Cabrera Braun DO PROCEDURE/MINOR HARDY RGICAL ORDERABLES * CULTURE FLUID+GRAM STAIN (11/21/2014 8:36 PM CDT) Culture No Growth BRYANT 11/29/2014 3:34 PM CDT [facility] Gram Stain Heavy Red blood cells 11/29/2014 3:34 PM CDT [facility] Gram Stain No organisms seen 11/29/2014 3:34 PM CDT [facility] Fluid BODY FLUID SPECIMEN / Unknown 11/21/2014 8:36 PM CDT 11/21/2014 8:51 PM CDT Cabrera Braun DO LAB - MICROBIOLOGY ORDERABLES [facility] [address] [place] [address], [place] [phone] * GROSS + MICRO EXAM (STL) (11/10/2014 9:45 AM CDT) Case Report Surgical Pathology Report ? Case: [id number] ? Authorizing Provider: ??Matthieu Saeed, DO ?Collected: ? 11/10/2014 09:45 AM ? Ordering Location: ? [facility] ? Received: ?11/11/2014 07:54 AM ? Pathologist: ? Aric Orozco MD ? Specimens: ?? A) - Axilla, right axillary node ? B) - Axilla, right axillary tissue ? 11/12/2014 4:14 PM CDT [facility] Final Diagnosis 1. ??Right axillary lymph node, excision: -- ??Reactive follicular hyperplasia 2. ?? Right axillary tissue, resection: -- ??Skin and mature adipose tissue (see microscopic) /jacqueline 11/12/2014 4:14 PM CDT [facility] Gross Description Received are two containers each labeled Vera Purdy. Container 1 is labeled right axillary node. ??The container holds a 4 x 3 x 1.5 cm ling node with attached yellow-ling soft tissue. ??The node has an unremarkable cut surface. ??The node is entirely submitted in cassette A1-A6. Container 2 is labeled right axillary tissue. ??The container holds a 10 x 6.5 x 4.5 cm yellow-ling lobular soft tissue fragment with an attached 8 x 1.5 cm ling skin ellipse. ??The margin of resection is inked blue. ??Sectioning shows a yellow and ling minimally fibrous cut surface. ??There are no lesions or masses grossly identified. ??Representativ e sections are submitted as follows: B1-tips of skin ellipse; B2 through B6-random sections of axillary skin and tissue with full thickness section in cassettes B5/B6. SEEMA/alis 11/12/2014 4:14 PM CDT [facility] Microscopic Description The right axillary tissue sections show a benign lymph node with well-formed follicles. There is a mild sinus histiocytosis. There is no metastatic tumor in the lymph node or evidence of lymphoma or features of Hodgkin disease. The changes are reactive and nonspecific. The sections of the right axillary tissue show normal skin and fatty subcutaneous tissue that could possibly be a lipoma if a distinct mass was seen. /jacqueline 11/12/2014 4:14 PM CDT [facility] Pathology/Cytology TISSUE SPECIMEN FROM AXILLA / Unknown 11/10/2014 9:45 AM CDT 11/11/2014 7:54 AM CDT Comment:799.9 Miscellaneous samples (specimen) TISSUE SPECIMEN FROM AXILLA / Unknown 11/10/2014 9:45 AM CDT 11/11/2014 7:54 AM CDT Comment:799.9 Matthieu Saeed DO LAB - PATHOLOGY/CYTO LOGY ORDERABLES [facility] [address] [place] [address] * IMAGING/RADIOLOGY/XRAY RESULTS ORDER (02/17/2010 10:43 AM CDT) Anatomical Region Laterality Modality Other Narrative 02/17/2010 10:43 AM CDT Ordered by an unspecified provider. Transcriptions Document, Scanned - 02/11/2010 12:00 AM CDT Scanned Document IMAGING * GROSS + MICRO EXAM (02/14/2010 12:00 AM CDT) [facility] Surgeon DR. Moiz TRUJILLO [facility] Grossed By LORRIE JACK [facility] Gross Report [facility] Comment: COPY TO: INDICATION FOR PROCEDURE: ??Cholecystitis, cholelithiasis OPERATION: ??Laparoscopic cholecystectomy GROSS: The specimen is received in one container labeled with the patient's name and gallbladder. ??The specimen is received in formalin and consists of an 11.5 cm in length and up to 3.8 cm in diameter congested purple to greenish-ling gallbladder. ??The serosa is smooth. ??At the neck of the gallbladder is a 4 mm ling nodule/possible lymph node. ??The lumen contains green bile and multiple smooth faceted yellow stones that measure up to 1.7 cm. ??The gallbladder wall ranges from 1-2 mm in thickness. The mucosa is focally eroded, green to reddish-ling and smooth. ??House Mover Supervisor sections of the specimen including the cystic duct margin and possible lymph node are submitted in a single cassette. LW/km Microscopic Examination [facility] Comment: MICROSCOPIC: The sections of the gallbladder show gallbladder wall well preserved. Mucosa is in part surfaced by columnar epithelium. ??Mild chronic inflammation is seen. ??No dysplasia or malignancy is identified. ??A small unremarkable lymph node is present as well. JW/km Diagnosis [facility] Comment: DIAGNOSIS: 1. ?Gallbladder, cholecystectomy: -- ?Cholecystitis, chronic, mild -- ?Cholelithiasis JW/km Released by Reinaldo HENDRICKSON. [facility] CPT Code 60355 [facility] ENTIRE GALLBLADDER / Unknown 02/14/2010 02/15/2010 9:16 AM CDT Anne Graf MD LAB - PATHOLOGY/CYTO LOGY ORDERABLES Performing Organization Address [facility] Co de Phone Number [facility] [address] [place] [address] * (ABNORMAL) PT PTT PANEL (02/13/2010 6:19 AM CDT) PT 11.4(H) 9.4 - 11.2 seconds [facility] INR 1.1 SEE BELOW [facility] Comment: 0.9-1.1 Normal 2.0-3.0 Conventional 2.5-3.5 Intensive PTT 30.6 24.0 - 32.0 seconds [facility] BLOOD SPECIMEN / Unknown 02/13/2010 6:19 AM CDT 02/13/2010 6:19 AM CDT Anne Graf MD LAB - COAGULATION OR DERABLES Performing Organization Address [facility] de Phone Number [facility] [address] [place] [address] * PTT (02/11/2010 11:00 PM CDT) PTT 24.5 24.0 - 32.0 seconds [facility] BLOOD SPECIMEN / Unknown 02/11/2010 11:00 PM CDT 02/11/2010 11:12 PM CDT Anne Graf MD LAB - COAGULATION OR DERABLES Performing Organization Address [facility] de Phone Number [facility] [address] [place] [address] * CT ABDOMEN WWO PELVIS W CONT (02/07/2010 5:58 PM CDT) Anatomical Region Laterality Modality Abdomen, Pelvis Computed Tomogra phy 02/07/2010 6:00 PM CDT Impressions 02/07/2010 6:[address] the abdomen and pelvis demonstrates no acute inflammatory process. This examination was transcribed using the [employer] voice recognition system without human supervisor brine. ??In an effort to expedite patient care, this report has not been adjusted for typographical, grammatical, and syntax by a trained director medical. ?? Narrative 02/07/2010 6:02 PM CDT Indication: Right lower quadrant abdominal pain Technique: Oral contrast was administered. 100 cc Omnipaque was administered intravenously, and axial images were obtained through the abdomen and pelvis. Delayed images were then acquired through the abdomen and pelvis. Findings: Atelectasis is present at the lung bases. Following administration of intravenous contrast, liver and spleen enhance uniformly. There is no inflammation adjacent to an intact gallbladder. Adrenal glands and pancreas appear unremarkable. Renal enhancement and excretion are symmetric. Bowel within the abdomen is normal in caliber. There is no abdominal aortic aneurysm or pathologically enlarged retroperitoneal lymphadenopathy. Pelvis: Bowel within the pelvis is normal in caliber. Contours of the urinary bladder are normal. No free fluid can be seen within the pelvis. The appendix is visualized in the right lower quadrant and appears normal. Procedure Note Cait Akins MD - 02/07/2010 Indication: Right lower quadrant abdominal pain Technique: Oral contrast was administered. 100 cc Omnipaque was administered intravenously, and axial images were obtained through the abdomen and pelvis. Delayed images were then acquired through the abdomen and pelvis. Findings: Atelectasis is present at the lung bases. Following administration of intravenous contrast, liver and spleen enhance uniformly. There is no inflammation adjacent to an intact gallbladder. Adrenal glands and pancreas appear unremarkable. Renal enhancement and excretion are symmetric. Bowel within the abdomen is normal in caliber. There is no abdominal aortic aneurysm or pathologically enlarged retroperitoneal lymphadenopathy. Pelvis: Bowel within the pelvis is normal in caliber. Contours of the urinary bladder are normal. No free fluid can be seen within the pelvis. The appendix is visualized in the right lower quadrant and appears normal. IMPRESSION CT the abdomen and pelvis demonstrates no acute inflammatory process. This examination was transcribed using the [employer] voice recognition system without human supervisor brine. In an effort to expedite patient care, this report has not been adjusted for typographical, grammatical, and syntax by a trained director medical. Rolando ANDREW CT ORDERABLES * CHLAMYDIA + GC DNA PROBE AMPLIFIED (02/07/2010 5:21 PM CDT) Only the most recent of2 resultswithin the time period is included. GC Amplified Probe NEGATIVE [facility] Chlamydia trachomatis Amplified Probe NEGATIVE [facility] Comment Amplified Probe [facility] Comment: ? Results based on detection/no detection of ribosomal ? RNA by amplified method. ENTIRE ENDOCERVIX / Unknown 02/07/2010 5:21 PM CDT 02/07/2010 5:21 PM CDT Narrative Resulting Agency Comment Performed By [facility] - [facility] ? [address] ? [place] [address] Rolando ANDREW LAB - MICROBIOLOGY O RDERABLES Performing Organization Address [facility] de Phone Number [facility] [address] [place] [address] * WET PREP SMEAR (02/07/2010 5:21 PM CDT) Only the most recent of2 resultswithin the time period is included. Pathologist [facility] Trichomonas Rapid Test None Detected [facility] PART OF UTERINE CERVIX / Unknown 02/07/2010 5:21 PM CDT 02/07/2010 5:21 PM CDT Rolando ANDREW LAB - MICROBIOLOGY O iMove Performing Organization Address [facility] Co de Phone Number [facility] [address] [place] [address] * US PELVIS W/TRANSVAG AND DOPPLER (02/07/2010 3:49 PM CDT) Anatomical Region Laterality Modality Pelvis Ultrasound 02/07/2010 3:5 5 PM CDT Impressions 02/07/2010 3:57 PM CDT Normal pelvic ultrasound. Narrative 02/07/2010 3:57 PM CDT Ultrasound Pelvis - Transabdominal/Transvaginal with Doppler Indication: Pelvic pain. Technique: Transabdominal and endovaginal images of the female pelvis were obtained with Doppler imaging of the ovaries. Findings:On transabdominal images, the uterus measures approximately 6.71 x 3.48 x 3.1 cm in size. No discrete uterine mass is identified. There is no free fluid within the pelvis. Ovaries appear unremarkable on transabdominal images. On transabdominal images, the right ovary measures approximately 2.02 x 1.31 x 2.01 cm in size. Endovaginal imaging was performed for more detailed evaluation of the ovaries and of the myometrium. On endovaginal imaging, no uterine mass is identified. The endometrium measures approximately 0.43 cm in thickness. It is normal and uniform in echogeneity. The right ovary cannot be visualized endovaginally. The left ovary measures approximately 1.95 x 1.42 x 1.89 cm in size. A few small cysts are present at the left ovary, most likely representing small follicles. Upon Doppler imaging, arterial flow can be identified within the ovary parenchyma bilaterally. Procedure Note Cait Akins MD - 02/07/2010 Ultrasound Pelvis - Transabdominal/Transvaginal with Doppler Indication: Pelvic pain. Technique: Transabdominal and endovaginal images of the female pelvis were obtained with Doppler imaging of the ovaries. Findings:On transabdominal images, the uterus measures approximately 6.71 x 3.48 x 3.1 cm in size. No discrete uterine mass is identified. There is no free fluid within the pelvis. Ovaries appear unremarkable on transabdominal images. On transabdominal images, the right ovary measures approximately 2.02 x 1.31 x 2.01 cm in size. Endovaginal imaging was performed for more detailed evaluation of the ovaries and of the myometrium. On endovaginal imaging, no uterine mass is identified. The endometrium measures approximately 0.43 cm in thickness. It is normal and uniform in echogeneity. The right ovary cannot be visualized endovaginally. The left ovary measures approximately 1.95 x 1.42 x 1.89 cm in size. A few small cysts are present at the left ovary, most likely representing small follicles. Upon Doppler imaging, arterial flow can be identified within the ovary parenchyma bilaterally. IMPRESSION Normal pelvic ultrasound. Rolando ANDREW US ORDERABLES * URINALYSIS ROUTINE AUTO (02/07/2010 2:23 PM CDT) Color UA YELLOW [facility] Character UA CLEAR [facility] Specific [place] UA 1.007 1.005 - 1.0300 [facility] pH UA 6.0 4.6 - 8.0 pH Units [facility] Leukocyte UA NEGATIVE Negative /ul [facility] Nitrite UA NEGATIVE Negative [facility] Protein UA NEGATIVE Negative mg/dl [facility] Glucose UA NEGATIVE Normal mg/dl [facility] Ketone UA NEGATIVE Negative mg/dl [facility] Urobilinogen UA 0.2 Normal Valorie Units [facility] Bilirubin UA NEGATIVE Negative mg/dl [facility] Blood UA NEGATIVE Negative /ul [facility] WBC UA <5 /HPF [facility] RBC UA <5 /HPF [facility] Epithelial Cell UA <5 /HPF [facility] Casts UA <2 /LPF [facility] Bacteria UA NEGATIVE [facility] URINE SPECIMEN OBTAINED BY CLEAN CATCH PROCEDURE / Unknown 02/07/2010 2:23 PM CDT 02/07/2010 2:23 PM CDT Romain Barreto MD LAB - URINALYSIS ORD ERABLES Performing Organization Address City/[facility] Co de Phone Number [facility] [address] [place] [address] * HCG BLOOD QUALITATIVE (02/07/2010 2:20 PM CDT) Pathologist [facility] HCG Qual Serum Not Detected Not Detected [facility] BLOOD SPECIMEN / Unknown 02/07/2010 2:20 PM CDT 02/07/2010 2:46 PM CDT Rolando ANDREW LAB - CHEMISTRY ELIZA LINTON Performing Organization Address City/[facility] Co de Phone Number [facility] [id number] [place] [address] * US OB < 14 WKS W/TRANSVAG AND DOPPLER (03/15/2009 4:44 PM CDT) Anatomical Region Laterality Modality Ultrasound 03/15/2009 5:05 PM CDT Impressions 03/15/2009 5:08 PM CDT Unremarkable exam. No evidence of intrauterine . This examination was transcribed using the [employer] voice recognition system without human supervisor brine. ??In an effort to expedite distribution and patient care, this report has not been adjusted for typographical, grammatical, and syntax by a trained director medical. ?? Narrative 03/15/2009 5:08 PM CDT Ultrasound OB less than 14 weeks transabdominal Ultrasound OB less than 14 weeks transvaginal Ultrasound Doppler pelvic ovaries with spectral analysis Indication: Pelvic pain, vaginal bleeding Findings: Transabdominal and transvaginal ultrasound show the uterus measures 7.29 X 3.32 X 4.83 cm. There is no evidence of intrauterine gestational sac or intrauterine . The right ovary measures 3.50 X 2.07 X 1.58 cm and the left ovary measures 3.69 X 1.65 X 2.00 cm. The endometrial canal measures 1.10 cm. There is normal color-flow and Doppler wave form of both ovaries. No free fluid is demonstrated. Procedure Note Brain Pickard MD - 03/15/2009 Ultrasound OB less than 14 weeks transabdominal Ultrasound OB less than 14 weeks transvaginal Ultrasound Doppler pelvic ovaries with spectral analysis Indication: Pelvic pain, vaginal bleeding Findings: Transabdominal and transvaginal ultrasound show the uterus measures 7.29 X 3.32 X 4.83 cm. There is no evidence of intrauterine gestational sac or intrauterine . The right ovary measures 3.50 X 2.07 X 1.58 cm and the left ovary measures 3.69 X 1.65 X 2.00 cm. The endometrial canal measures 1.10 cm. There is normal color-flow and Doppler wave form of both ovaries. No free fluid is demonstrated. IMPRESSION Unremarkable exam. No evidence of intrauterine . This examination was transcribed using the [employer] voice recognition system without human supervisor brine. In an effort to expedite distribution and patient care, this report has not been adjusted for typographical, grammatical, and syntax by a trained director medical. Rolando ANDREW ORDERABLES Care Teams Casting Room Operator Relationship Specialty Start Date End Date Dionicio Colindres DO [address] [place] [address] [place] [address] PCP - General Family Medicine 01/03/18
--- OUTSIDE RECORDS SUMMARY | 2024-08-03 01:36 | XMS_ITS | Encounter Summary ---
Author Organization [facility] Address [address] [place] [address] Care Team Providers Care Hoop Flaring Machine Operator Helper Name Role Phone Dionicio Colindreshen Primary Care Provider [phone] Encounter Details Date Type Department Care Team (Latest Contact Info) Description 06/07/2022 3:30 PM CDT - 06/07/2022 11:59 PM CDT Hospital Encounter [facility] - Radiology [address] [place], [place] [id number] Discharge Disposition: Home or Self Care Social [...] and evening meal 11 05/11/2017 Prenat w/o [id number]-[id number] (PNV-DHA PO) Take by mouth once daily [...] Procedure Name Priority Date/Time Associated Diagnosis Comments XR CHEST 2VW Routine 06/07/2022 3:37 PM CDT Polyarthropathy, 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 documented in this encounter Results * XR CHEST 2VW (06/07/2022 3:37 PM CDT) Anatomical Region Laterality Modality Chest Radiographic Sherrie [...] Chilango Langley MD DIAGNOSTIC IMAGING O RDERABLES documented in this encounter Visit Diagnoses Diagnosis Polyarthropathy, inflammatory (HCC) Unspecified inflammatory polyarthropathy Polyarticular psoriatic arthritis (HCC) Psoriatic arthropathy Sarcoidosis of lymph nodes Sarcoidosis documented in this encounter Additional Health Concerns Infection Onset Date Last Indicated Resolved Time 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
--- OUTSIDE RECORDS SUMMARY | 2024-08-03 01:37 | XMS_ITS | Encounter Summary ---
Author Organization [facility] Address [address] [place] [address] Care Team Providers Care Exercise Physiology Professor Name Role Phone Dionicio Colindreshen Primary Care Provider [phone] Reason for Visit * Reason Comments Pain Abdominal states she is having vaginal bleeding and came from [facility] who stated she may have appendicitis; states she is having N/V and RLQ pain x 2 days; pt is Covid + Encounter Details Date Type Department Care Team (Late st Contact Info) Description 08/24/2020 8:02 PM TANBARK LABORER - 08/24/2020 10:53 PM TANBARK LABORER Emergency ER at [facility] [address] [place] [id number] RLQ abdominal pain; Hemorrhagic cyst of right ovary Discharge Disposition: Home or Self Care Social [...] Sign Reading Time Taken Comments Blood Pressure 128/72 08/24/2020 10:00 PM TANBARK LABORER Pulse 87 08/24/2020 10:00 PM TANBARK LABORER Temperature 36.8 ??C (98.2 ??F) 08/24/2020 10:[address] Respiratory Rate 16 08/24/2020 10:00 PM TANBARK LABORER Oxygen Saturation 98% 08/24/2020 10:00 PM TANBARK LABORER Inhaled Oxygen Concentration - - Weight 112.5 kg (248 lb) 08/24/2020 7:28 PM TANBARK LABORER Height 167.6 cm (5' 6 ) 08/24/2020 7:28 PM TANBARK LABORER Body Mass Index 40.03 08/24/2020 7:28 PM TANBARK LABORER documented in this encounter Functional Status Functional [...] cannot be sent through Care Everywhere. * Ovarian Cyst (AfterCare(R) Instructions(ER/ED)) (Comoran) documented in this encounter Medications at Time of Discharge Medication Sig Dispensed Refills Start Date End Date albuterol HFA (PROVENTIL;VENTOLIN;PRO AIR) 108 (90 BASE) MCG/ACT inhaler Inhale 1 (one) puff by mouth 2 times daily amitriptyline (ELAVIL) 10 MG tablet Take 10 mg by mouth at bedtime 02/04/2017 buPROPion (WELLBUTRIN) 75 MG tablet Take 150 mg by mouth 3 times daily. busPIRone (BUSPAR) 10 MG tablet Take 10 mg by mouth 3 times daily 1 11/15/2017 butalbital-acetaminophe n-caffeine (FIORICET) 50-325-40 MG tablet TAKE 1 TABLET [...] 4 mg by mouth 2 times daily L-Methylfolate (DEPLIN) 7.5 MG Take 7.5 mg [...] and evening meal 11 05/11/2017 Prenat w/o C-VU-Hrpdazh-FA-DHA (PNV-DHA PO) Take by mouth once daily [...] as of this encounter ED Notes * Rony Hassan RN - 08/24/2020 10:52 PM CST Discharge instructions and medications reviewed with Pt. All Pt questions answered at this time. Ptable to ambulate out of ED without assistance. ARK LABORER * Rony Hassan RN - 08/24/2020 8:33 PM CST Pt arrived to the ED with CO ABD pain. Pt was seen at prior to ED and tested positive for COVID-19. Pt was sent to ED for possible appendicitis. Pt also reports of scant vaginal bleeding for past day with NV. Pt AOX4, able to ambulate without assistance. Pt does not show any signs of RESP distress. ARK LABORER * Rob Hernandez PA-C - 08/24/2020 8:16 PM CST [place] [id number] [facility] EMERGENCY DEPARTMENT History Chief Complaint Patient presents with ??? Pain Abdominal states she is having vaginal bleeding and came from [facility] who stated she may have appendicitis; states she is having N/V and RLQ pain x 2 days; pt is Covid + 35 F presents with abdominal pain beginning 1 day ago. Associated nausea, vomiting, and vaginal bleeding. Vaginal bleeding is reported as scant. Patient was seen at urgent care prior to arrival, where she found out she tested positive for COVID today, and was referred to the ED due to the location of her abdominal pain and concern for possible appendicitis. Patient reports history of section. Reports occasional history ovarian cysts. Denies fever, diarrhea, constipation, urinary symptoms, chest pain, or shortness of breath. Last menstrual period was 3 weeks ago. Past Medical History: Diagnosis Date ??? Arthritis [...] use: Yes Comment: occasionally ??? Drug use: Yes Types: Marijuana Comment: last week ??? Sexual activity: Yes Lifestyle ??? Physical activity Days per week: Not on file Minutes per session: Not on file ??? Stress: Not on file Relationships ??? Social connections Talks on phone: Not on file Gets together: Not on file Attends taoist service: Not on file Active member of [...] Review of Systems Review of Systems Constitutional: Negative. Negative for chills and fever. HENT: Negative. Eyes: Negative. Respiratory: Negative. Negative for shortness of breath. Cardiovascular: Negative. Negative for chest pain. Gastrointestinal: Positive for abdominal pain, nausea and vomiting. Genitourinary: Negative. Musculoskeletal: Negative. Skin: Negative. Neurological: Negative. Negative for headaches. Psychiatric/Behavioral: Negative. All other systems reviewed and are negative. Physical Exam BP 128/72 Pulse 87 Temp 98.2 ??F (36.8 ??C) (Oral) Resp 16 Ht 1.676 m (5' 6 ) Wt 112.5 kg(248 lb) LMP 07/30/2019 (Approximate) SpO2 98% BMI 40.03 kg/m?? Physical Exam Vitals signs and nursing note reviewed. Constitutional: General: She is not in acute distress. Appearance: She is well-developed. She is obese. She is not diaphoretic. HENT: Head: Normocephalic and atraumatic. Right Ear: External ear normal. Left Ear: External ear normal. Mouth/Throat: Pharynx: No oropharyngeal exudate. Eyes: General: Right eye: No discharge. Left eye: No discharge. Conjunctiva/sclera: Conjunctivae normal. Pupils: Pupils are equal, round, and reactive to light. Neck: Musculoskeletal: Normal range of motion and neck supple. Cardiovascular: Rate and Rhythm: Normal rate and regular rhythm. Pulmonary: Effort: Pulmonary effort is normal. No respiratory distress. Breath sounds: Normal breath sounds. Abdominal: General: Bowel sounds are normal. There is no distension. Palpations: Abdomen is soft. Tenderness: There is abdominal tenderness (Mild) in the right lower quadrant. There is no right CVAtenderness, left CVA tenderness, guarding or rebound. Negative signs include Hawkins's sign and McBurney's sign. Musculoskeletal: Normal range of motion. General: No tenderness. Lymphadenopathy: Cervical: No cervical adenopathy. Skin: General: Skin is warm and dry. Findings: No rash. Neurological: Mental Status: She is alert and oriented to person, place, and time. Psychiatric: Behavior: Behavior normal. Medications Current Outpatient Medications Medication Sig Dispense Refill ??? albuterol HFA (PROVENTIL;VENTOLIN;PROAIR) 108 (90 BASE) MCG/ACT inhaler Inhale 1 puff by mouth 2 times daily ??? amitriptyline (ELAVIL) 10 MG tablet Take 10 mg by mouth at bedtime ??? buPROPion (WELLBUTRIN) 75 MG tablet Take 150 mg by mouth 3 times daily. ??? busPIRone (BUSPAR) 10 MG tablet Take 10 mg by mouth 3 times daily 1 ??? asidbqrxbq-wmxmdfnylrmcv-zzexhcsj (FIORICET) 50-325-40 MG tablet TAKE 1 TABLET [...] mg by mouth 2 times daily ??? L-Methylfolate (DEPLIN) 7.5 MG Take 7.5 [...] and evening meal 11 ??? Prenat w/o P-KE-Rgkaqqh-FA-DHA (PNV-DHA PO) Take by mouth once daily [...] MOUTH ONCE DAILY 60 capsule 0 Procedures Procedures Lab/SPO2 Interpretation Hospital Encounter on 08/24/20 CBC W AUTO DIFFERENTIAL Result Value Ref Range WBC 11.1 (H) 4.4 - 10.7 x10E9/L WBC Corrected RBC 5.52 (H) 3.80 - 5.20 x10E12/L Hemoglobin 13.0 12.0 - 15.6 gm/dL Hematocrit 41.6 35.9 - 45.5 % MCV 75.4 (L) 80.7 - 98.3 fl MCH 23.6 (L) 26.7 - 34.0 pg MCHC 31.3 30.8 - 35.9 gm/dL Platelet Count 417 (H) 153 - 416 x10E9/L RDW-CV 15.3 (H) 12.1 - 14.9 % MPV 8.8 (L) 9.4 - 12.9 fl Neutrophils % 60.5 44.0 - 73.0 % Lymphocytes % 31.1 20.0 - 43.0 % Monocytes % 5.0 5.0 - 13.0 % Eosinophils % 2.6 0.0 - 6.0 % Basophils % 0.5 0.0 - 2.0 % Immature Granulocytes 0.3 0 - 1 % Neutrophil Absolute 6.74 2.01 - 7.14 x10E9/L Lymphocytes Absolute 3.45 1.07 - 3.94 x10E9/L Monocytes Absolute 0.55 0.26 - 1.07 x10E9/L Eosinophils Absolute 0.29 0 - 0.47 x10E9/L Basophils Absolute 0.05 0 - 0.08 x10E9/L Immature Granulocytes Absolute 0.03 0.00 - 0.06 x10E9/L nRBC Auto 0 /100 WBC COMPREHENSIVE METABOLIC PANEL Result Value Ref Range Glucose 90 70 - 105 mg/dL Sodium 135 (L) 136 - 145 mmol/L Potassium 4.0 3.5 - 5.1 mmol/L Chloride 103 98 - 107 mmol/L CO2 19 (L) 23 - 31 mmol/L Calcium 8.8 8.4 - 10.4 mg/dL Anion Gap 13 8 - 18 mmol/L BUN 12 7 - 18.7 mg/dL Creatinine 0.84 0.57 - 1.11 mg/dL Alkaline Phosphatase 120 40 - 150 U/L ALT 22 0 - 61 U/L AST 32 5 - 34 U/L Protein Total 8.4 (H) 6.4 - 8.3 gm/dL Albumin 4.7 3.5 - 5.2 gm/dL Bilirubin Total 0.3 0.2 - 1.2 mg/dL eGFR by MDRD >60 >60 mL/min/1.73m2 eGFR by MDRD >60 >60 mL/min/1.73m2 HCG BETA BLOOD QUANTITATIVE Result Value Ref Range hCG Quantitative <1.20 mIU/mL LIPASE BLOOD Result Value Ref Range Lipase 100 (H) 8 - 78 U/L URINALYSIS REFLEX MICROSCOPIC REFLEX CULTURE Specimen: Urine Clean Catch Result Value Ref Range Color UA Yellow Straw, Yellow Clarity UA Cloudy (Abnormal) Clear Glucose UA Negative Negative Bilirubin UA Negative Negative Ketone UA Negative Negative Specific Mulberry UA 1.009 1.005 - 1.030 Blood UA 2+ (Abnormal) Negative pH UA 6.0 5.0 - 8.0 pH Protein UA Negative Negative Urobilinogen UA Negative Negative mg/dL Nitrite UA Negative Negative Leukocyte UA Negative Negative Urine Microscopy Urine microscopy to follow Reflex Status Culture not indicated URINE MICROSCOPIC ONLY REFLEX TO CULTURE Specimen: Urine Clean Catch Result Value Ref Range Reflex Status Culture not indicated RBC UA 0-2 None Seen, 0-2, 3-5 # /hpf WBC UA 0-5 None Seen, 0-5 # /hpf Bacteria UA Trace (Abnormal) None Seen Squamous Epithelial Cells 11-20 (Abnormal) None Seen, 0-2, 3-5 /hpf Mucus UA 1+ /LPF CT ABDOMEN AND PELVIS WITH IV CONTRAST - Acute Abdomen (Results Pending) CLINICAL INDICATION: ED 35 F presents with abdominal pain beginning 1 day ago. Associated nausea, vomiting, and vaginal bleeding. Vaginal bleeding is reported as scant. Patient was seen at urgent care prior to arrival, where she found out she tested positive for COVID today, and was referred to theED due to the location of her abdominal pain and concern for possible appendicitis. Patient reportshistory of section. Reports occasional history ovarian cysts. Denies fever, diarrhea, constipation, urinary symptoms, chest pain, or shortness of breath. Last menstrual period was 3 weeks ago. Surgical hx: cholecystectomy, , brain surgery GFR 166 100 mL Isovue 370 CONTRAST: 100 MLISOVUE 370 PROCEDURE DATE: 08/24/2020 CT ABDOMEN & PELVIS With IV Contrast COMPARISON: None available. IMPRESSION: 1. Status post cholecystectomy. 2. No obstructive uropathy. 7.7 mm sized posterior left renal cyst. 3. No small or large bowel obstruction. No pneumoperitoneum or ascites. The appendix is not confidently identified, however no secondary signs of acute appendicitis. 4. Abdominal aorta is normal without aneurysm. No retroperitoneal lymphadenopathy. 5. Partially distended urinary bladder precluding evaluation. Uterus is normal in size. 4 cm sized cystic structure within the right lower abdomen/pelvis with dependent hyperdensity likely representing hemorrhagic cyst. 6. Mild thoracolumbar degenerative changes. No acute osseous abnormality. Fortino Lorenz M.D. Electronically Signed Progress Notes 8:26 PM: Initial plan to assess labs and imaging. 11:06 PM: Rechecked pt - CT shows likely hemorrhagic right-sided cyst in the area of patient's pain. Low suspicion for appendicitis. Abdomen is soft and mildly tender with no rebound tenderness or guarding. Low suspicion for an acute abdomen. Pt is medically stable for d/c home at this time. I have given the patient instructions regarding their diagnosis, expectations, follow up, and return precautions. I explained to the patient that emergent conditions may arise and to return to the ERfor new, worsening, or any persistent conditions. I've explained the importance of following up with their doctor--Dionicio Colindres DO--(or the referral physician) as instructed. The patient verbalized understanding of the discharge instructions. ED Course Clinical Impressions as of Aug 24 2305 RLQ abdominal pain Hemorrhagic cyst of right ovary Medical Decision Making I have reviewed the: Nursing Notes, Vitals. I have interpreted the following results: Labs, CT Scans and Oxygen Saturation. Orders Placed This Encounter ??? CT ABDOMEN AND PELVIS WITH IV CONTRAST - Acute Abdomen ??? CBC W AUTO DIFFERENTIAL ??? COMPREHENSIVE METABOLIC PANEL ??? HCG BETA BLOOD QUANTITATIVE ??? LIPASE BLOOD ??? URINALYSIS REFLEX MICROSCOPIC REFLEX CULTURE ??? URINE MICROSCOPIC ONLY REFLEX TO CULTURE ??? iopamidol (ISOVUE 370) 76 % contrast ??? *Hold/Avoid Medication ??? 0.9% NaCl injection 0-10 mL ??? 0.9% NaCl IV Flush Bag ??? meloxicam (MOBIC) 7.5 MG tablet Final diagnoses: RLQ abdominal pain Hemorrhagic cyst of right ovary Discharge Medication List as of 08/24/2020 10:35 PM START taking these medications Details meloxicam (MOBIC) 7.5 MG tablet Disp-20 tablet, R-0, Take 1 tablet by mouth 2 times daily, Print [place] [id number] Schedule an appointment as soon as possible for a visit For Re-evaluation [facility] Emergency Department [address] [place] [address] Go today If symptoms worsen Disposition: Discharged This note was created with the aid of dictation software, thus there may be some word substitutionsor errors. Follow-up Information Follow-up With Details Why Contact Info [facility] Schedule an appointment as soon as possible for a visit For Re-evaluation [address] [place] [address] [facility] Emergency Department Go today If symptoms worsen [address] [place] [address] User Date/Time Rob Hernandez PA-C Tue Aug 24, 2020 10:34 PM ARK LABORER documented in this encounter Plan of Treatment Not on file documented as of this encounter Procedures Procedure Name Priority Date/Time Associated Diagnosis Comments CT ABDOMEN PELVIS W CONTRAST STAT 08/24/2020 9:20 PM TANBARK LABORER RLQ abdominal pain URINE MICROSCOPIC ONLY REFLEX TO CULTURE STAT 08/24/2020 8:35 PM TANBARK LABORER URINALYSIS REFLEX MICROSCOPIC REFLEX CULTURE STAT 08/24/2020 8:35 PM TANBARK LABORER CBC W AUTO DIFFERENTIAL STAT 08/24/2020 8:20 PM TANBARK LABORER COMPREHENSIVE METABOLIC PANEL STAT 08/24/2020 8:20 PM TANBARK LABORER HCG BETA BLOOD QUANTITATIVE STAT 08/24/2020 8:20 PM TANBARK LABORER LIPASE BLOOD STAT 08/24/2020 8:20 PM TANBARK LABORER documented in this encounter Results * CT ABDOMEN AND PELVIS WITH IV CONTRAST - Acute Abdomen (08/24/2020 9:20 PM TANBARK LABORER) Anatomical Region Laterality Modality Abdomen, Pelvis Computed Tomogra phy 08/25/2020 8:05 AM TANBARK LABORER Impressions 08/25/2020 8:44 AM TANBARK LABORER 1. Dilated cystic structure seen in the lower right adnexa is indeterminate. While this could be ovarian in origin, an underlying mucocele or appendiceal lesion cannot be entirely excluded and pelvic sonogram could be obtained for further evaluation. No definite focal inflammatory changes are seen in the right lower abdomen. Edited by Qi Mclain on 08/25/2020 8:44 AM *Reading Radiologist: Massimo Oropeza on 08/25/2020 at 8:44 AM Narrative 08/25/2020 8:[address] ABDOMEN AND PELVIS WITH CONTRAST. TECHNIQUE: Multislice helical was performed after the administration of 100 mL of Isovue-370. HISTORY: Abdominal pain. FINDINGS: No focal consolidation is seen in the lung bases. The heart appears normal in size. The liver is unremarkable. The gallbladder is absent. The spleen is slightly enlarged. The adrenal glands appear normal. The kidneys are normal. The pancreas is unremarkable. There is no bowel obstruction. There is a cystic-appearing structure seen in the right lower quadrant which could represent an ovarian cyst measuring up to 3.8 cm. However, this could also represent a corpus luteal cyst or possibly other ovarian cyst. Further evaluation with pelvic sonogram could be obtained. The appendix is not clearly seen however no definite focal inflammatory changes are identified. The uterus and urinary bladder appear normal. Procedure Note Massimo Oropeza MD - 08/25/2020 CT ABDOMEN AND PELVIS WITH CONTRAST. TECHNIQUE: Multislice helical was performed after the administration of 100 mL of Isovue-370. HISTORY: Abdominal pain. FINDINGS: No focal consolidation is seen in the lung bases. The heart appears normal in size. The liver is unremarkable. The gallbladder is absent. The spleen is slightly enlarged. The adrenal glands appear normal. The kidneys are normal. The pancreas is unremarkable. There is no bowel obstruction. There is a cystic-appearing structure seen in the right lower quadrant which could represent an ovarian cyst measuring up to 3.8 cm. However, this could also represent a corpus luteal cyst or possibly other ovarian cyst. Further evaluation with pelvic sonogram could be obtained. The appendix is not clearly seen however no definite focal inflammatory changes are identified. The uterus and urinary bladder appear normal. IMPRESSION 1. Dilated cystic structure seen in the lower right adnexa is indeterminate. While this could be ovarian in origin, an underlying mucocele or appendiceal lesion cannot be entirely excluded and pelvic sonogram could be obtained for further evaluation. No definite focal inflammatory changes are seen in the right lower abdomen. Edited by Qi Mclain on 08/25/2020 8:44 AM *Reading Radiologist: Massimo Oropeza on 08/25/2020 at 8:44 AM Rob Hernandez PA-C CT ORDERABLES * (ABNORMAL) URINE MICROSCOPIC ONLY REFLEX TO CULTURE (08/24/2020 8:35 PM TANBARK LABORER) Reflex Status Culture not indicated 08/24/2020 8:43 PM TANBARK LABORER [facility] RBC UA 0-2 None Seen, 0-2, 3-5 # /hpf 08/24/2020 8:43 PM TANBARK LABORER [facility] WBC UA 0-5 None Seen, 0-5 # /hpf 08/24/2020 8:43 PM TANBARK LABORER [facility] Bacteria UA Trace(A) None Seen 08/24/2020 8:43 PM TANBARK LABORER [facility] Squamous Epithelial Cells 11-20(A) None Seen, 0-2, 3-5 /hpf 08/24/2020 8:43 PM [facility] Mucus UA 1+ /LPF 08/24/2020 8:43 PM [facility] Urine URINE SPECIMEN OBTAINED BY CLEAN CATCH PROCEDURE / Unknown Collection / Unknown 08/24/2020 8:35 PM TANBARK LABORER 08/24/2020 8:37 PM TANBARK LABORER Narrative [facility] - 08/24/2020 8:43 PM TANBARK LABORER Rob Hernandez PA-C LAB - URINALYSIS OR DERABLES [facility] [address] [place] [address] * (ABNORMAL) URINALYSIS REFLEX MICROSCOPIC REFLEX CULTURE (08/24/2020 8:35 PM TANBARK LABORER) Color UA Yellow Straw, Yellow 08/24/2020 8:41 PM [facility] Clarity UA Cloudy(A) Clear 08/24/2020 8:41 PM [facility] Glucose UA Negative Negative 08/24/2020 8:41 PM [facility] Bilirubin UA Negative Negative 08/24/2020 8:41 PM [facility] Ketone UA Negative Negative 08/24/2020 8:41 PM [facility] Specific Mulberry UA 1.009 1.005 - 1.030 08/24/2020 8:41 PM [facility] Blood UA 2+(A) Negative 08/24/2020 8:41 PM [facility] pH UA 6.0 5.0 - 8.0 pH 08/24/2020 8:41 PM [facility] Protein UA Negative Negative 08/24/2020 8:41 PM [facility] Urobilinogen UA Negative Negative mg/dL 08/24/2020 8:41 PM [facility] Nitrite UA Negative Negative 08/24/2020 8:41 PM [facility] Leukocyte UA Negative Negative 08/24/2020 8:41 PM [facility] Urine Microscopy Urine microscopy to follow 08/24/2020 8:41 PM [facility] Reflex Status Culture not indicated 08/24/2020 8:41 PM [facility] Urine URINE SPECIMEN OBTAINED BY CLEAN CATCH PROCEDURE / Unknown Collection / Unknown 08/24/2020 8:35 PM TANBARK LABORER 08/24/2020 8:37 PM TANBARK LABORER Narrative [facility] - 08/24/2020 8:41 PM TANBARK LABORER Rob Hernandez PA-C LAB - URINALYSIS OR DERABLES Performing Organization Address [facility] Co de Phone Number [facility] [address] [place] [address] * (ABNORMAL) LIPASE BLOOD (08/24/2020 8:20 PM TANBARK LABORER) Pathologist [facility] Lipase 100(H) 8 - 78 U/L 08/24/2020 8:39 PM TANBARK LABORER [facility] Blood BLOOD SPECIMEN / Unknown Venipuncture / Unknown 08/24/2020 8:20 PM TANBARK LABORER 08/24/2020 8:23 PM TANBARK LABORER Rob Hernandez PA-C LAB - CHEMISTRY ORD ERABLES Performing Organization Address [facility] de Phone Number [facility] [address] [place] [address] * HCG BETA BLOOD QUANTITATIVE (08/24/2020 8:20 PM TANBARK LABORER) Pathologist [facility] hCG Quantitative <1.20 mIU/mL 08/24/19 8:45 PM TANBARK LABORER [facility] Blood BLOOD SPECIMEN / Unknown Venipuncture / Unknown 08/24/2020 8:20 PM TANBARK LABORER 08/24/2020 8:23 PM TANBARK LABORER Narrative [facility] - 08/24/2020 8:45 PM TANBARK LABORER ? hCG Reference Range, mIU/mL: ? Males [...] a serum FSH >20 IU/L makes unlikely. Rob Hernandez PA-C LAB - CHEMISTRY ORD ERABLES [facility] [address] [place] [address] * (ABNORMAL) COMPREHENSIVE METABOLIC PANEL (08/24/2020 8:20 PM TANBARK LABORER) [facility] Signature Glucose 90 70 - 105 mg/dL 08/24/2020 8:39 PM TANBARK LABORER [facility] Sodium 135(L) 136 - 145 mmol/L 08/24/2020 8:39 PM TANBARK LABORER [facility] Potassium 4.0 3.5 - 5.1 mmol/L 08/24/2020 8:39 PM T[facility]BARK LABORER [facility] Chloride 103 98 - 107 mmol/L 08/24/2020 8:39 PM TANBARK LABORER [facility] CO2 19(L) 23 - 31 mmol/L 08/24/2020 8:39 PM TANBARK LABORER [facility] Calcium 8.8 8.4 - 10.4 mg/dL 08/24/2020 8:39 PM TANBARK LABORER [facility] Anion Gap 13 8 - 18 mmol/L 08/24/2020 8:39 PM TANBARK LABORER [facility] Comment:Attention clinician: ??Reference Range change. BUN 12 7 - 18.7 mg/dL 08/24/2020 8:39 PM TANBARK LABORER [facility] Creatinine 0.84 0.57 - 1.11 mg/dL 08/24/2020 8:39 PM TANBARK LABORER [facility] Alkaline Phosphatase 120 40 - 150 U/L 08/24/2020 8:39 PM TANBARK LABORER [facility] Comment:Attention clinician: ??Reference Range change. ALT 22 0 - 61 U/L 08/24/2020 8:39 PM TANBARK LABORER [facility] AST 32 5 - 34 U/L 08/24/2020 8:39 PM [facility] Protein Total 8.4(H) 6.4 - 8.3 gm/dL 08/24/2020 8:39 PM [facility] Albumin 4.7 3.5 - 5.2 gm/dL 08/24/2020 8:39 PM [facility] Bilirubin Total 0.3 0.2 - 1.2 mg/dL 08/24/2020 8:39 PM TANBARK LABORER [facility] Comment:Attention clinician: ??Reference Range change. eGFR by MDRD >60 >60 mL/min/1.7 3m2 08/24/2020 8:39 PM TANBARK LABORER [facility] eGFR by MDRD >60 >60 mL/min/1.7 3m2 08/24/2020 8:39 PM [facility] Blood BLOOD SPECIMEN / Unknown Venipuncture / Unknown 08/24/2020 8:20 PM TANBARK LABORER 08/24/2020 8:23 PM TANBARK LABORER Rob Hernandez PA-C LAB - CHEMISTRY ORD ERABLES [facility] [address] [place] [address] * (ABNORMAL) CBC W AUTO DIFFERENTIAL (08/24/2020 8:20 PM TANBARK LABORER) WBC 11.1(H) 4.4 - 10.7 x10E9/L 08/24/2020 8:26 PM [facility] WBC Corrected 08/24/2020 8:26 PM [facility] RBC 5.52(H) 3.80 - 5.20 x10E12/L 08/24/2020 8:26 PM [facility] Hemoglobin 13.0 12.0 - 15.6 gm/dL 08/24/2020 8:26 PM [facility] Hematocrit 41.6 35.9 - 45.5 % 08/24/2020 8:26 PM [facility] MCV 75.4(L) 80.7 - 98.3 fl 08/24/2020 8:26 PM [facility] MCH 23.6(L) 26.7 - 34.0 pg 08/24/2020 8:26 PM [facility] MCHC 31.3 30.8 - 35.9 gm/dL 08/24/2020 8:26 PM [facility] Platelet Count 417(H) 153 - 416 x10E9/L 08/24/2020 8:26 PM [facility] RDW-CV 15.3(H) 12.1 - 14.9 % 08/24/2020 8:26 PM [facility] MPV 8.8(L) 9.4 - 12.9 fl 08/24/2020 8:26 PM [facility] Neutrophils % 60.5 44.0 - 73.0 % 08/24/2020 8:26 PM [facility] Lymphocytes % 31.1 20.0 - 43.0 % 08/24/2020 8:26 PM [facility] Monocytes % 5.0 5.0 - 13.0 % 08/24/2020 8:26 PM [facility] Eosinophils % 2.6 0.0 - 6.0 % 08/24/2020 8:26 PM [facility] Basophils % 0.5 0.0 - 2.0 % 08/24/2020 8:26 PM [facility] Immature Granulocytes 0.3 0 - 1 % 08/24/2020 8:26 PM [facility] Neutrophil Absolute 6.74 2.01 - 7.14 x10E9/L 08/24/2020 8:26 PM [facility] Lymphocytes Absolute 3.45 1.07 - 3.94 x10E9/L 08/24/2020 8:26 PM [facility] Monocytes Absolute 0.55 0.26 - 1.07 x10E9/L 08/24/2020 8:26 PM [facility] Eosinophils Absolute 0.29 0 - 0.47 x10E9/L 08/24/2020 8:26 PM [facility] Basophils Absolute 0.05 0 - 0.08 x10E9/L 08/24/2020 8:26 PM [facility] Immature Granulocytes Absolute 0.03 0.00 - 0.06 x10E9/L 08/24/2020 8:26 PM [facility] nRBC Auto 0 /100 WBC 08/24/2020 8:26 PM [facility] Blood BLOOD SPECIMEN / Unknown Venipuncture / Unknown 08/24/2020 8:20 PM [facility] 08/24/2020 8:23 PM [facility] Rob Hernandez PA-C LAB - HEMATOLOGY OR DERABLES Performing Organization Address [facility]/State/[facility] Co de Phone Number [facility] [address] [place] [address] documented in this encounter Visit Diagnoses Diagnosis RLQ abdominal pain Abdominal pain, right lower quadrant Hemorrhagic cyst of right ovary documented in this encounter Administered Medications Inactive Administered Medications - up to 3 most recent administrations Medication Order MAR Action Action Date Dose Rate Site *Hold/Avoid Medication EVERY 12 HOURS (08 and 20), 6 doses, First dose on Sun08/24/20 at 2115, Last dose on Sun08/27/20 at 0800, Please place medication(s) named below on MAR Hold. See Tip Sheet for instructions. 0.9% NaCl injection 0-10 mL 0-10 mL, Intracatheter, ONCE PRN, Other, Contrast flush, 1 dose, Starting on Sun08/24/20 at 2111, Until Sun08/24/20 at 211, For administration with contrast. $ Given 08/24/2020 9:12 PM [facility] 10 mL 0.9% NaCl IV Flush Bag 0-250 mL, Intracatheter, ONCE PRN, Contrast flush, 1 dose, Starting on Sun08/24/20 at 2111, Until Sun08/24/20 at 211, For administration with contrast $ Given 08/24/2020 9:12 PM [facility] 50 mL iopamidol (ISOVUE 370) 76 % contrast Intravenous, CONTRAST ONCE, Starting on Sun08/24/20 at 2016, Until Sun08/24/20 at 2353 $ Given - Contrast 08/24/2020 9:12 PM [facility] 100 mL documented in this encounter Active and Recently Administered Medications Times are shown in [facility]. Scheduled Medication Order 08/22/2020 08/23/2020 08/24/2020 *Hold/Avoid Medication EVERY 12 HOURS (08 and 20), 6 doses, First dose on Sun08/24/20 at 2115, Last dose on Sun08/27/20 at 0800, Please place medication(s) named below on MAR Hold. See Tip Sheet for instructions. 2114 (Due) iopamidol (ISOVUE 370) 76 % contrast Intravenous, CONTRAST ONCE, Starting on Sun08/24/20 at 2016, Until Sun08/24/20 at 2353 2112 ($ Given - Cont rast - Provider: Luci Fountain, RT(R)(M)) PRN Medication Order 08/22/2020 08/23/2020 08/24/2020 0.9% NaCl injection 0-10 mL (COMPLETED) 0-10 mL, Intracatheter, ONCE PRN, Other, Contrast flush, 1 dose, Starting on Sun08/24/20 at 2111, Until Sun08/24/20 at 211, For administration with contrast. 2111 ($ Given - Prov ider: Luci Fountain, RT(R)(M)) 0.9% NaCl IV Flush Bag (COMPLETED) 0-250 mL, Intracatheter, ONCE PRN, Contrast flush, 1 dose, Starting on Sun08/24/20 at 2111, Until Sun08/24/20 at 2112, For administration with contrast 2112 ($ Given - Prov ider: Luci Fountain, RT(R)(M)) documented in this encounter Care Teams Exercise Physiology Professor Relationship Specialty Start Date End Date Dionicio Colindres DO [address] [place] [id number] PCP - General Family Medicine 01/03/18 documented as of this encounter
--- OUTSIDE RECORDS SUMMARY | 2024-08-03 01:37 | XMS_ITS | Encounter Summary ---
Author Organization [facility] Address [address] [place] [address] Care Team Providers Care Circular Saw Filer Name Role Phone Dionicio Colindres Primary Care Provider [phone] Reason for Visit * Reason Comments Refill Request Encounter Details Date Type Department Care Team (Late st Contact Info) Description 06/19/2018 Refill [facility] Neurosciences [id number] [place] [phone] [place] [id number] [address] Refill Request Social History Tobacco Use Types Packs/Day Years Used Date Smoking Tobacco: Former Cigarettes 1 4 1 08/13/2009 - 06/13/2014 Smokeless Tobacco: Never Alcohol Use Standard Drinks/Week Comments No 0 (1 standard drink = 0.6 oz pur e alcohol) Comments Yes Sex and Gender Information Value Date Recorded [...] on filedocumented in this encounter Care Teams Circular Saw Filer Relationship Specialty Start Date End Date Dionicio Colindres DO [address] [place] [id number] PCP - General Family Medicine 01/03/18 documented as of this encounter
--- OUTSIDE RECORDS SUMMARY | 2024-08-03 01:37 | XMS_ITS | Encounter Summary ---
Author Organization [facility] Address [address] [place] [address] Care Team Providers Care Certified Phlebotomy Technician Name Role Phone Hilda Eden INCIDENT RESPONSE MANAGER-SOCIAL MEDIA SPECIALIST Primary Care Provider [phone] Reason for Visit * Reason Comments Pain Head Onset Sunday; lef t side of head; loss of vision intermittently; numbness in face; nausea; I blacked out. Has double vision now. Encounter Details Date Type Department Care Team (Late st Contact Info) Description 03/09/2017 8:44 AM CDT - 03/09/2017 1:35 PM CDT Emergency ER at [facility] [address] [place] [id number] Rachid Armenta MD [address] [place] [address] Acute intractable headache, unspecified headache type; Changes in vision; Colloid cyst of brain (HCC) Discharge Disposition: Inpatient Hospital Social History Tobacco Use Types Packs/Day Years Used Date Smoking Tobacco: Former Cigarettes 1 4 1 08/13/2009 - 06/13/2014 Smokeless Tobacco: Never Alcohol Use Standard Drinks/Week Comments No 0 (1 standard drink = 0.6 oz pur e alcohol) Sex and Gender Information Value Date Recorded Sex Assigned at Not on file Gender Identity Not on file Sexual Orientation Not on file documented as of this encounter Last Filed Vital Signs Vital Sign Reading Time Taken Comments Blood Pressure 176/100 03/09/2017 1:05 PM CDT Pulse 78 03/09/2017 1:08 PM CDT Temperature 36.9 ??C (98.4 ??F) 03/09/2017 10:45 AM C DT Respiratory Rate 19 03/09/2017 1:08 PM CDT Oxygen Saturation 100% 03/09/2017 1:08 PM CDT Inhaled Oxygen Concentration - - Weight 112 kg (247 lb) 03/09/2017 9:32 AM CDT Height 167.6 cm (5' 6 ) 03/09/2017 9:32 AM CDT Body Mass Index 39.87 03/09/2017 9:32 AM CDT documented in this encounter Functional Status [...] Refills Start Date End Date albuterol HFA (PROVENTIL;VENTOLIN;PROA IR) 108 (90 BASE) MCG/ACT inhaler Inhale 1 (one) puff by mouth 2 times daily amitriptyline (ELAVIL) 10 MG tablet Take 10 mg by mouth at bedtime 02/04/2017 buPROPion (WELLBUTRIN) 75 MG tablet Take 150 mg by mouth 3 times daily. dicyclomine (BENTYL) 10 MG capsule Take 10 mg by mouth 3 times daily. HYDROmorphone (DILAUDID) 4 MG tablet Take 4 mg by mouth 2 times daily amitriptyline (ELAVIL) 25 MG tablet Take 25 mg by mouth at bedtime. 06/14/2017 aspirin EC (ECOTRIN) 81 MG tablet Take 81 mg by mouth once daily. 06/14/2017 folic fskq-zgzwyrospa-yvzhyuuo alamin (FOLGARD) 0.8-10-0.115 MG tablet Take 1 Tab by mouth once daily. 06/14/2017 hydrocodone-acetaminophe n (NORCO) 7.5-325 MG tablet Take 1 Tab by mouth every 4 hours as needed for Pain. 30 Tab 0 11/10/2014 01/03/2018 l-methylfolate (DEPLIN) 15 MG tablet Take 15 mg by mouth once daily. 06/14/2017 L-METHYLFOLATE CALCIUM PO Take 15 mg by mouth 06/14/20 17 METFORMIN HCL PO Take 500 mg by mouth 09/2016 omeprazole (PRILOSEC) 20 MG capsule Take 20 mg by mouth daily before breakfast. 06/14/2017 oxyCODONE-acetaminophen (PERCOCET) 7.5-325 MG tablet Take 1 Tab by mouth every 4 hours as needed for Pain. 20 Tab 0 11/21/2014 06/14/2017 oxyCODONE-acetaminophen (PERCOCET) 7.5-325 MG tablet Take 1 Tab by mouth at bedtime. 01/03/2018 Vit-Fe Fumarate-FA ( VITAMIN) 28-0.8 MG tablet Take 1 Tab by mouth daily. 06/14/2017 Vortioxetine HBr (TRINTELLIX PO) Take 5 mg by mouth every evening 06/14/2017 documented as of this encounter ED Notes * Viviana King RN - 03/09/2017 1:33 PM CDT Pt stating she will drop children off at grandmother's and then head straight to [facility] ED. IV removed. Stressed to go straight to [facility] ED. driving. * Viviana King RN - 03/09/2017 1:15 PM CDT Pt refusing again to take ambulance to go to [facility] ED. Risks and benefits reviewed again. Still refused. Pt AMA signed for refusal to take EMS to [facility]. * Viviana King, RN - 03/09/2017 12:57 PM CDT ERMD at bedside. Pt refusing to take ambulance to ER. on the way to rock picker pt. * Viviana King RN - 03/09/2017 11:27 AM CDT Pt off to CT. * Viviana King RN - 03/09/2017 10:48 AM CDT Medication given. CBC redrawn and sent to lab. Negative HcG. * Viviana King RN - 03/09/2017 9:30 AM CDT Pt presents to the ED with L temporal pain that has been ongoing since Sunday. Pt in 03/22 pain -states she feels like she has been shot in the head. Pt was seen at PCP - blood work drawn and no abnormal results found. Pt states on Sunday her vision went black and it took 12 hours to go away.Pt stated her vision went black on and she ran into a wall because she was unable to see. Pt stated last night she lost vision in L eye and now is seeing double vision - seeing things above and below each other. Pt now has decreased sensation on L side of face and numb on roof of mouth. Pthas normal sensation in arms and legs. Pt able to ambulate. Has ice pack over head -states it relieves the pain slightly. ERMD at bedside. * Rachid Armenta MD - 03/09/2017 8:50 AM CDT Provider contact with the patient: 03/09/2017 08:50 Vera Vitale [id number] [facility] EMERGENCY DEPARTMENT History Chief Complaint Patient presents with ??? Pain Head Onset Sunday; left side of head; loss of vision intermittently; numbness in face; nausea; I blacked out. Has double vision now. HPI Comments: Vera Vitale is a 31 y.o. female with PMHx of polycystic ovaries, anxiety, depression, GERD, hypercholesterolemia, bipolar 1 disorder presenting to the ED with a chief complaint of an intermittent headache that began two days ago. Patient states that she was laying in bed two days ago when it felt like someone shot me in the head and everything went black. Patient states that the pain decreased hourly but took 12 hours to completely go away. Patient has had migraines before but reports that symptoms feel different. Patient states that last night a similar episode happened during which everything went black and she temporary could not see anything out of her left eye. She also notes left facial numbness. She notes that she currently has double vision (above and below). Patient reports fatigue and malaise recently. Patient takes medications for depression and bipolar, Metformin for PCOS, Elavil for restless leg syndrome, Dilaudid for back pain, and 81 mg Aspirin. The history is provided by the patient. Denies smoking, drinking, or drug use PCP in [place] FMHx: DM Surgical hx: x2, excision of lymph nodes from arm, cholecystectomy, corrective hearing surgery, removal of one ovary Headache The history is provided by the patient. This is a new problem. The current episode started 2 days ago. The problem occurs intermittent. The problem has not changed since onset.Associated symptoms include malaise/fatigue. Pertinent negatives include no fever, no shortness of breath, no nausea and novomiting. Past Medical History: Diagnosis Date ??? Bipolar 1 disorder ??? Depressive disorder, not elsewhere classified ??? Generalized anxiety disorder ??? GERD (gastroesophageal reflux disease) ??? Overweight, obesity and other hyperalimentation ??? Polycystic ovaries ??? Pure hypercholesterolemia ??? Trichomonas 2006 treated Past Surgical History: Procedure Laterality Date ??? Section ??? Cholecystectomy ??? EXCISION/ DESTRUCTION TUMOR/MASS Right 11/10/14 axillary and lymph node biopsy ??? EXCISION/ DESTRUCTION TUMOR/MASS 11/10/2014 EXCISION MASS RIGHT AXILLARY ??? HYSTEROSCOPY ??? Tympanoplasty corrective hearing Family History Problem Relation Age of Onset ??? Diabetes Father ??? Hypercholesterolemia Father ??? Diabetes Maternal Grandmother ??? Diabetes Brother ??? Hypertension Mother Social History Social History ??? Marital status: Spouse name: N/A ??? Number of children: N/A ??? Years of education: N/A Occupational History ??? Not on file. Social History Main Topics ??? Smoking status: Former Smoker Packs/day: 1.00 Years: 4.00 Types: Cigarettes Quit date: 06/13/2014 ??? Smokeless tobacco: Never Used ??? Alcohol use No ??? Drug use: No ??? Sexual activity: Yes Other Topics Concern ??? Not on file Social History Narrative Allergies Allergen Reactions ??? Adhesive Sensitivity Can tolerate paper tape Review of Systems Review of Systems Constitutional: Positive for malaise/fatigue. Negative for chills and fever. Eyes: Positive for double vision. Respiratory: Negative for cough and shortness of breath. Cardiovascular: Negative for chest pain. Gastrointestinal: Negative for diarrhea, nausea and vomiting. Musculoskeletal: Negative for myalgias. Neurological: Positive for sensory change (left facial numbness) and headaches. All other systems reviewed and are negative. Physical Exam BP 128/73 Pulse 75 Resp 18 Ht 1.676 m (5' 6 ) Wt 112 kg (247 lb) LMP 02/21/2017 (Approximate) SpO2 97% BMI 39.87 kg/m2 Physical Exam Constitutional: She is oriented to person, place, and time. She appears well- developed and well-nourished. HENT: Head: Normocephalic and atraumatic. Nose: Nose normal. Eyes: Conjunctivae are normal. Pupils are equal, round, and reactive to light. Neck: Normal range of motion. Neck supple. Cardiovascular: Normal rate, regular rhythm, normal heart sounds and intact distal pulses. Pulmonary/Chest: Effort normal and breath sounds normal. Abdominal: Soft. Musculoskeletal: Normal range of motion. Neurological: She is alert and oriented to person, place, and time. No cranial nerve deficit. Mental status: Awake, alert, oriented x 3. Higher Cerebral Function: speech - Non-aphasic (normal) Cranial Nerves: II - Visual verma intact III, IV, - Extraocular movement intact. Pupils equal, round, & reactive to light V/VII - Facial sensation intact and symmetric with normal strength VIII, IX, X - Hearing not tested , normal swallow and gag XI - Normal trapezius strength via shoulder shrug and head rotation XII - No tongue deviation on protrusion Motor Function: Right upper extremity 5 - Normal Strength Left upper extremity 5 - Normal Strength Right lower extremity 5 - Normal Strength Left lower extremity 5 - Normal Strength Sensory Function: Right upper extremity Normal sensation Left upper extremity Normal sensation Right lower extremity Normal sensation Left lower extremity Normal sensation Decreased sensation left mid face and left forehead. Coordination: Normal finger to nose Gait: stance, stride and arm swing appear normal Skin: Skin is warm and dry. Psychiatric: She has a normal mood and affect. Nursing note and vitals reviewed. Medications Current Outpatient Prescriptions Medication Sig Dispense Refill ??? HYDROmorphone (DILAUDID) 4 MG tablet Take 4 mg by mouth ??? METFORMIN HCL PO Take 500 mg by mouth ??? amitriptyline (ELAVIL) 10 MG tablet Take 10 mg by mouth ??? albuterol HFA (PROVENTIL;VENTOLIN;PROAIR) 108 (90 BASE) MCG/ACT inhaler Inhale 1 Puff by mouth ??? Vortioxetine HBr (TRINTELLIX PO) Take 30 mg by mouth ??? l-methylfolate (DEPLIN) 15 MG tablet Take 15 mg by mouth once daily. ??? aspirin EC (ECOTRIN) 81 MG tablet Take 81 mg by mouth once daily. ??? Vit-Fe Fumarate-FA ( VITAMIN) 28-0.8 MG tablet Take 1 Tab by mouth daily. ??? L-METHYLFOLATE CALCIUM PO Take 15 mg by mouth ??? oxyCODONE-acetaminophen (PERCOCET) 7.5-325 MG tablet Take 1 Tab by mouth every 4 hours as needed for Pain. (Patient not taking: Reported on 03/09/2017) 20 Tab 0 ??? hydrocodone-acetaminophen (NORCO) 7.5-325 MG tablet Take 1 Tab by mouth every 4 hours as neededfor Pain. (Patient not taking: Reported on 03/09/2017) 30 Tab 0 ??? omeprazole (PRILOSEC) 20 MG capsule Take 20 mg by mouth daily before breakfast. ??? dicyclomine (BENTYL) 10 MG capsule Take 10 mg by mouth 3 times daily. ??? amitriptyline (ELAVIL) 25 MG tablet Take 25 mg by mouth at bedtime. ??? buPROPion (WELLBUTRIN) 75 MG tablet Take 150 mg by mouth 3 times daily. ??? oxyCODONE-acetaminophen (PERCOCET) 7.5-325 MG tablet Take 1 Tab by mouth at bedtime. ??? folic cgjd-yrhjyvvhbb-suqxlmewbdoboa (FOLGARD) 0.8-10-0.115 MG tablet Take 1 Tab by mouth once daily. Procedures Procedures ECG Interpretation ECG Interpretation Lab Interpretation Oxygen Saturation Interpretation The oxygen saturation level is: 97%. The patient was on Room Air for the saturation measurement. Measurement frequency: Spot Check. Oxygen saturation interpretation is Normal. Intervention(s) used: None. Hospital Encounter on 03/09/17 CBC W AUTO DIFFERENTIAL Result Value Ref Range WBC 7.6 4.4 - 10.7 x10E9/L WBC Corrected x10E9/L RBC 5.23 (H) 3.80 - 5.20 x10E12/L Hgb 13.6 12.0 - 15.6 gm/dL HCT 40.8 35.9 - 45.5 % MCV 78.0 (L) 80.7 - 98.3 fl MCH 26.0 (L) 26.7 - 34.0 pg MCHC 33.3 30.8 - 35.9 gm/dL Plt Ct 295 153 - 416 x10E9/L RDW-CV 17.3 (H) 12.1 - 14.9 % MPV 8.3 (L) 9.4 - 12.9 fl Neutro 60.3 44.0 - 73.0 % Lymph 32.5 20.0 - 43.0 % Noble 5.4 5.0 - 13.0 % Eos 1.2 0.0 - 6.0 % Baso 0.3 0.0 - 2.0 % Immature Grans 0.3 0 - 1 % Neutro Abs 4.62 2.01 - 7.14 x10E9/L Lymph Abs 2.48 1.07 - 3.94 x10E9/L Noble Abs 0.41 0.26 - 1.07 x10E9/L Eosin Abs 0.09 0 - 0.47 x10E9/L Baso Abs 0.02 0 - 0.08 x10E9/L Immature Grans (Abs) 0.02 0.00 - 0.06 x10E9/L NRBC Auto 0 /100 WBC COMPREHENSIVE METABOLIC PANEL Result Value Ref Range Glucose 85 74 - 106 mg/dL Sodium 140 136 - 145 mmol/L Potassium 4.5 3.5 - 5.1 mmol/L Chloride 106 98 - 107 mmol/L CO2 26 22 - 31 mmol/L Calcium 9.1 8.5 - 10.1 mg/dL Anion Gap 8 8 - 16 mmol/L BUN 11 7 - 21 mg/dL Creatinine 0.84 0.50 - 1.30 mg/dL Alk Phos 116 38 - 126 U/L ALT/SGPT 107 (H) 13 - 61 U/L AST/SGOT 95 (H) 5 - 40 U/L Protein Total 8.8 (H) 6.4 - 8.2 gm/dL Albumin 4.0 3.4 - 5.0 gm/dL Bili Total 0.4 0.2 - 1.0 mg/dL eGFR MDRD >60 >60 mL/min/1.73m2 eGFR MDRD AFR AMR >60 >60 mL/min/1.73m2 URINALYSIS ROUTINE W/REFLEX TO CULTURE Result Value Ref Range Color UA Yellow Straw, Yellow, Dark Yellow Clarity UA Clear Specific [place] UA 1.027 1.005 - 1.030 pH UA 5.5 5.0 - 8.0 pH Protein UA Negative Negative Blood UA Negative Negative Leukocyte UA Trace (Abnormal) Negative Nitrite UA Negative Negative Glucose UA Negative Negative Ketone UA Negative Negative Bili UA Negative Negative Urobilinogen UA 0.2 0.1 - 1.0 EU/dL WBC UA Auto 2-5 0-2, 2-5 # /hpf RBC UA Auto 5-10 (Abnormal) 0-2, 2-5 # /hpf Epithelial Cell UA Auto 5-10 (Abnormal) 0-2, 2-5 # /hpf Reflex Status Culture to follow HCG URINE QUALITATIVE - POINT OF CARE (IP) Result Value Ref Range HCG Qual Urine Negative Negative QC Verified Yes Yes CT ANGIO NECK HEAD W WO CONTRAST (CTA for STROKE) Final Result Examination: CT angiography of the cervical carotids and [place] with contrast History: Syncope Findings: CT angiography of the cervical carotids and [place] was performed following the uneventful administration of 100 mL of Omnipaque 350 intravenous contrast. Sagittal and coronal reformatted images and 3-D post processed images were performed. Comparison is made to a CT of the head dated 03/09/2017. Images through the upper chest demonstrate an azygos fissure. No pneumonic consolidation, pleural effusion, or pneumothorax is seen. No upper mediastinal adenopathy is seen. No cervical adenopathy is noted. Postcontrast images of the brain again demonstrate an approximately 1 cm hyperdense mass near the region of the foramen of [place]. Orbits appear normal. There is no suspicious osseous lytic or blastic lesion. The origins of the great vessels are partially obscured by streak artifact from contrast. The left common carotid artery is patent. There is no stenosis of the left carotid bifurcation. The left internal carotid artery is patent. The right internal carotid artery is patent. There is no stenosis of the right carotid bifurcation. Right common carotid artery is patent. The vertebral arteries are codominant and patent. The posterior cerebral arteries are patent. The basilar artery is patent. Left and right middle cerebral arteries are patent. Anterior cerebral arteries are patent. IMPRESSION No evidence of carotid stenosis. No evidence of proximal intracranial arterial occlusion. 1 cm hyperdense mass near the foramen of [place] concerning for possible colloid cyst. Neurosurgical consultation is recommended. CT HEAD NON CONTRAST Final Result EXAMINATION: Computed tomography (CT) of the head without contrast HISTORY: Syncope TECHNIQUE: CT of the head was performed without contrast according to standard protocol. FINDINGS: No prior study is available for comparison. No acute intra- or extra-axial fluid collections are identified. There is no midline shift. There is a hyperdense mass located in the region of the foramen of [place] measuring 1 cm. No dilatation of the lateral ventricles is noted to suggest hydrocephalus. Basal cisterns are patent. Orbits appear normal. Mastoids are clear. Paranasal sinuses are clear. No acute skull fracture is seen. IMPRESSION 1. No acute intracranial hemorrhage. 2. There is a hyperdense 1 cm mass near the foramen of [place] concerning for a colloid cyst. Lateral ventricular size appears normal without evidence of hydrocephalus. Findings were called to Dr. Armenta by Dr. Angela at 11:24 AM on 03/09/2017. Progress Notes 8:50 AM Initial Plan: Will order labs, CT. Patient will be given fluids, Compazine. Patient agrees with plan. 10:40 AM I re-evaluated the patient???s medical condition, comfort, and provided a care update. Patient feeling fine and awaiting CT. 11:[address] Angela (radiology) about CT findings. 12:37 PM I discussed with Dr. Henao ([facility] neurosurgery resident) about all pertinent aspects of the case including HPI details, physical exam findings, testing completed, medications given, the pt's current condition, and my clinical impression at this time. Dr. Henao states to transfer patient to [facility] ER. 12:47 PM The patient needs resources not available at this hospital. I have made arrangements with Denita (access line) to transfer the patient to [facility] ER under Dr. Allen's care. Informed consent for the transfer was given by patient. Patient is stable for transfer at this time. See transfer documents for further details. 12:55 PM I re-evaluated the patient???s medical condition, comfort, and provided a care update. Updated patient on plan for transfer. Patient refusing to go by ambulance and will only go by POV. Explained to patient that she needs to go directly to the Emergency Department at [facility] from here. She asked what could happen if she did not go and I explained that she could have a blockage of the flow of her CSF and subsequently develop brain damage. She understood this and was able to repeat this back to me in her own words. Will send out with transfer paperwork. 12:59 PM Updated Denita (access line) that patient plans to go by POV. ED Course ED Course Medical Decision Making I have reviewed the: Previous Chart, Nursing Notes, Vitals. I have interpreted the following results: Labs, CT Scans and Oxygen Saturation. I have discussed the case with Neurosurgery (Dr. Henao), Radiologist (Dr. Angela). Differential diagnosis includes dehydration, atypical migraine, depression, urinary tract infection, hyperglycemia, and electrolyte abnormality. Orders Placed This Encounter ??? CULTURE URINE ??? CT HEAD NON CONTRAST ??? CT ANGIO NECK HEAD W WO CONTRAST (CTA for STROKE) ??? CBC W AUTO DIFFERENTIAL ??? COMPREHENSIVE METABOLIC PANEL ??? URINALYSIS ROUTINE W/REFLEX TO CULTURE ??? HCG URINE QUALITATIVE - POINT OF CARE (IP) ??? 0.9% NaCl IV Bolus ??? DISCONTD: prochlorperazine (COMPAZINE) injection 10 mg ??? DISCONTD: *Hold/Avoid Medication ??? DISCONTD: iohexol (OMNIPAQUE 350) contrast ??? DISCONTD: insulin aspart (NovoLOG) pen 6 Units ??? morphine injection 4 mg ??? morphine (pf) 4 mg / ml injection ADS Med Clinical Impression Final diagnoses: Acute intractable headache, unspecified headache type Changes in vision Colloid cyst of brain Disposition: Transfer to [facility] ER under Dr. Kelsie Allen By signing my name below, I, Dayanara Harris, attest that this documentation has been prepared under thedirection and in the presence of Dr. Armenta. Electronically Signed: Devika Nicole. 03/09/2017 3:22 PM I, Dr. Armenta, personally performed the services described in this documentation. All medical record entries made by the scribe were at my direction and in my presence. I have reviewed the chart anddischarge instructions and agree that the record reflects my personal performance and is accurate and complete. Dr. Rachid Armenta MD, 03/09/2017 3:22 PM documented in this encounter Plan of Treatment Not on file documented as of this encounter Procedures Procedure Name Priority Date/Time Associated Diagnosis Comments CT ANGIO BRAIN AND NECK STAT 03/09/2017 11:28 AM CDT Acute intractable headache, unspecified headache type Changes in vision CT HEAD WO CONTRAST STAT 03/09/2017 1 1:18 AM CDT Acute intractable headache, unspecified headache type Changes in vision CBC W AUTO DIFFERENTIAL STAT 03/09/2017 10:40 AM CDT HCG URINE QUALITATIVE - POINT OF CARE Routine 03/09/2017 10:19 AM CDT URINALYSIS REFLEX MICROSCOPIC REFLEX CULTURE STAT 03/09/2017 10:14 AM CDT CULTURE URINE STAT 03/09/2017 10:14 AM CDT COMPREHENSIVE METABOLIC PANEL STAT 03/09/2017 10:07 AM CDT documented in this encounter Results * CT ANGIO NECK HEAD W WO CONTRAST (CTA for STROKE) (03/09/2017 11:28 AM CDT) Anatomical Region Laterality Modality Head Computed Tomogra phy 03/09/2017 12:0 7 PM CDT Impressions 03/09/2017 12:24 PM CDT No evidence of carotid stenosis. No evidence of proximal intracranial arterial occlusion. 1 cm hyperdense mass near the foramen of Cumm[place] concerning for possible colloid cyst. Neurosurgical consultation is recommended. Narrative 03/09/2017 12:24 PM CDT Examination: CT angiography of the cervical carotids and [place] with contrast History: Syncope Findings: CT angiography of the cervical carotids and [place] was performed following the uneventful administration of 100 mL of Omnipaque 350 intravenous contrast. Sagittal and coronal reformatted images and 3-D post processed images were performed. Comparison is made to a CT of the head dated 03/09/2017. Images through the upper chest demonstrate an azygos fissure. No pneumonic consolidation, pleural effusion, or pneumothorax is seen. No upper mediastinal adenopathy is seen. No cervical adenopathy is noted. Postcontrast images of the brain again demonstrate an approximately 1 cm hyperdense mass near the region of the foramen of [place]. Orbits appear normal. There is no suspicious osseous lytic or blastic lesion. The origins of the great vessels are partially obscured by streak artifact from contrast. The left common carotid artery is patent. There is no stenosis of the left carotid bifurcation. The left internal carotid artery is patent. The right internal carotid artery is patent. There is no stenosis of the right carotid bifurcation. Right common carotid artery is patent. The vertebral arteries are codominant and patent. The posterior cerebral arteries are patent. The basilar artery is patent. Left and right middle cerebral arteries are patent. Anterior cerebral arteries are patent. Procedure Note Chu Angela MD - 03/09/2017 Examination: CT angiography of the cervical carotids and [place] with contrast History: Syncope Findings: CT angiography of the cervical carotids and [place] was performed following the uneventful administration of 100 mL of Omnipaque 350 intravenous contrast. Sagittal and coronal reformatted images and 3-D post processed images were performed. Comparison is made to a CT of the head dated 03/09/2017. Images through the upper chest demonstrate an azygos fissure. No pneumonic consolidation, pleural effusion, or pneumothorax is seen. No upper mediastinal adenopathy is seen. No cervical adenopathy is noted. Postcontrast images of the brain again demonstrate an approximately 1 cm hyperdense mass near the region of the foramen of [place]. Orbits appear normal. There is no suspicious osseous lytic or blastic lesion. The origins of the great vessels are partially obscured by streak artifact from contrast. The left common carotid artery is patent. There is no stenosis of the left carotid bifurcation. The left internal carotid artery is patent. The right internal carotid artery is patent. There is no stenosis of the right carotid bifurcation. Right common carotid artery is patent. The vertebral arteries are codominant and patent. The posterior cerebral arteries are patent. The basilar artery is patent. Left and right middle cerebral arteries are patent. Anterior cerebral arteries are patent. IMPRESSION No evidence of carotid stenosis. No evidence of proximal intracranial arterial occlusion. 1 cm hyperdense mass near the foramen of Cummings concerning for possible colloid cyst. Neurosurgical consultation is recommended. Rachid Armenta MD CT ORDERABLES * CT HEAD NON CONTRAST (03/09/2017 11:18 AM CDT) Anatomical Region Laterality Modality Head Computed Tomogra phy 03/09/2017 11:2 2 AM CDT Impressions 03/09/2017 11:26 AM CDT 1. No acute intracranial hemorrhage. 2. There is a hyperdense 1 cm mass near the foramen of Cummings concerning for a colloid cyst. Lateral ventricular size appears normal without evidence of hydrocephalus. Findings were called to Dr. Armenta by Dr. Angela at 11:24 AM on 03/09/2017. Narrative 03/09/2017 11:26 AM CDT EXAMINATION: Computed tomography (CT) of the head without contrast HISTORY: Syncope TECHNIQUE: CT of the head was performed without contrast according to standard protocol. FINDINGS: No prior study is available for comparison. No acute intra- or extra-axial fluid collections are identified. There is no midline shift. There is a hyperdense mass located in the region of the foramen of Cummings measuring 1 cm. No dilatation of the lateral ventricles is noted to suggest hydrocephalus. Basal cisterns are patent. Orbits appear normal. Mastoids are clear. Paranasal sinuses are clear. No acute skull fracture is seen. Procedure Note Chu Angela MD - 03/09/2017 EXAMINATION: Computed tomography (CT) of the head without contrast HISTORY: Syncope TECHNIQUE: CT of the head was performed without contrast according to standard protocol. FINDINGS: No prior study is available for comparison. No acute intra- or extra-axial fluid collections are identified. There is no midline shift. There is a hyperdense mass located in the region of the foramen of Cummings measuring 1 cm. No dilatation of the lateral ventricles is noted to suggest hydrocephalus. Basal cisterns are patent. Orbits appear normal. Mastoids are clear. Paranasal sinuses are clear. No acute skull fracture is seen. IMPRESSION 1. No acute intracranial hemorrhage. 2. There is a hyperdense 1 cm mass near the foramen of Cummings concerning for a colloid cyst. Lateral ventricular size appears normal without evidence of hydrocephalus. Findings were called to Dr. Armenta by Dr. Angela at 11:24 AM on 03/09/2017. Rachid Armenta MD CT ORDERABLES * (ABNORMAL) CBC W AUTO DIFFERENTIAL (03/09/2017 10:40 AM CDT) WBC 7.6 4.4 - 10.7 x10E9/L 03/09/2017 10:[address] [facility] WBC Corrected x10E9/L 03/09/2017 10:[address] [facility] RBC 5.23(H) 3.80 - 5.20 x10E12/L 03/09/2017 10:[address] [facility] Hemoglobin 13.6 12.0 - 15.6 gm/dL 03/09/2017 10:[address] [facility] Hematocrit 40.8 35.9 - 45.5 % 03/09/2017 10:[address] [facility] MCV 78.0(L) 80.7 - 98.3 fl 03/09/2017 10:[address] [facility] MCH 26.0(L) 26.7 - 34.0 pg 03/09/2017 10:[address] [facility] MCHC 33.3 30.8 - 35.9 gm/dL 03/09/2017 10:[address] [facility] Platelet Count 295 153 - 416 x10E9/L 03/09/2017 10:[address] [facility] RDW-CV 17.3(H) 12.1 - 14.9 % 03/09/2017 10:[address] [facility] MPV 8.3(L) 9.4 - 12.9 fl 03/09/2017 10:[address] [facility] Neutrophils % 60.3 44.0 - 73.0 % 03/09/2017 10:[address] [facility] Lymphocytes % 32.5 20.0 - 43.0 % 03/09/2017 10:[address] [facility] Monocytes % 5.4 5.0 - 13.0 % 03/09/2017 10:[address] [facility] Eosinophils % 1.2 0.0 - 6.0 % 03/09/2017 10:[address] [facility] Basophils % 0.3 0.0 - 2.0 % 03/09/2017 10:[address] [facility] Immature Granulocytes 0.3 0 - 1 % 03/09/2017 10:[address] [facility] Neutrophil Absolute 4.62 2.01 - 7.14 x10E9/L 03/09/2017 10:[address] [facility] Lymphocytes Absolute 2.48 1.07 - 3.94 x10E9/L 03/09/2017 10:[address] [facility] Monocytes Absolute 0.41 0.26 - 1.07 x10E9/L 03/09/2017 10:[address] [facility] Eosinophils Absolute 0.09 0 - 0.47 x10E9/L 03/09/2017 10:[address] [facility] Basophils Absolute 0.02 0 - 0.08 x10E9/L 03/09/2017 10:[address] [facility] Immature Granulocytes Absolute 0.02 0.00 - 0.06 x10E9/L 03/09/2017 10:[address] [facility] nRBC Auto 0 /100 WBC 03/09/2017 10:[address] [facility] Blood BLOOD SPECIMEN / Unknown Venipuncture / Unknown 03/09/2017 10:40 AM CDT 03/09/2017 10:43 AM CDT Rachid Armenta MD LAB - HEMATOLOG Y ORDERABLES Performing Organization Address City/State/[facility] Co de Phone Number [facility] [address] [place] [id number] * HCG URINE QUALITATIVE - POINT OF CARE (IP) (03/09/2017 10:19 AM CDT) HCG Qual Urine Negative Negative [facility] POCT TESTING QC Verified Yes Yes [facility] POC T TESTING Urine URINE / Unknown 03/09/2017 1 0:19 AM CDT Rachid Armenta MD LAB - POINT OF CARE ORDERABLES Performing Organization Address City/[facility]/ZIP Co de Phone Number [facility] POCT TESTING [address] [place] [phone] [place] [address] * CULTURE URINE (03/09/2017 10:14 AM CDT) Pathologist [facility] Culture Urine 10,000-50,000 CFU/mL urogenital stephanie BRYANT 03/11/2017 7:[address] [facility] Urine URINE SPECIMEN OBTAINED BY CLEAN CATCH PROCEDURE / Unknown Collection / Unknown 03/09/2017 10:14 AM CDT 03/09/2017 10:19 AM CDT Rachid Armenta MD LAB - MICROBIOL OGY ORDERABLES Performing Organization Address City/[facility]/ZIP Co de Phone Number [facility] [address] [phone] * (ABNORMAL) URINALYSIS ROUTINE W/REFLEX TO CULTURE (03/09/2017 10:14 AM CDT) Color UA Yellow Straw, Yellow, Dark Yellow 03/09/2017 10:[address] [facility] Clarity UA Clear 03/09/2017 10:[address] [facility] Specific [place] UA 1.027 1.005 - 1.030 03/09/2017 10:[address] [facility] pH UA 5.5 5.0 - 8.0 pH 03/09/2017 10:[address] [facility] Protein UA Negative Negative 03/09/2017 10:[address] [facility] Blood UA Negative Negative 03/09/2017 10:[address] [facility] Leukocyte UA Trace(A) Negative 03/09/2017 10:[address] [facility] Nitrite UA Negative Negative 03/09/2017 10:[address] [facility] Glucose UA Negative Negative 03/09/2017 10:[address] [facility] Ketone UA Negative Negative 03/09/2017 10:[address] [facility] Bilirubin UA Negative Negative 03/09/2017 10:[address] [facility] Urobilinogen UA 0.2 0.1 - 1.0 EU/dL 03/09/2017 10:[address] [facility] WBC UA Auto 2-5 0-2, 2-5 # /hpf 03/09/2017 10:[address] [facility] RBC UA Auto 5-10(A) 0-2, 2-5 # /hpf 03/09/2017 10:[address] [facility] Epithelial Cell UA Auto 5-10(A) 0-2, 2-5 # /hpf 03/09/2017 10:[address] [facility] Reflex Status Culture to follow 03/09/2017 10:[address] [facility] Urine URINE SPECIMEN OBTAINED BY CLEAN CATCH PROCEDURE / Unknown Collection / Unknown 03/09/2017 10:14 AM CDT 03/09/2017 10:19 AM CDT Rachid Armenta MD LAB - URINALYSI S ORDERABLES Performing Organization Address [facility]/State/ZIP Co de Phone Number [facility] [address] [place] [address] * (ABNORMAL) COMPREHENSIVE METABOLIC PANEL (03/09/2017 10:07 AM CDT) Glucose 85 74 - 106 mg/dL 03/09/2017 10:[address] [facility] Sodium 140 136 - 145 mmol/L 03/09/2017 10:[address] [facility] Potassium 4.5 3.5 - 5.1 mmol/L 03/09/2017 10:[address] [facility] Chloride 106 98 - 107 mmol/L 03/09/2017 10:[address] [facility] CO2 26 22 - 31 mmol/L 03/09/2017 10:[address] [facility] Calcium 9.1 8.5 - 10.1 mg/dL 03/09/2017 10:[address] [facility] Anion Gap 8 8 - 16 mmol/L 03/09/2017 10:[address] [facility] BUN 11 7 - 21 mg/dL 03/09/2017 10:[address] [facility] Creatinine 0.84 0.50 - 1.30 mg/dL 03/09/2017 10:[address] [facility] Alkaline Phosphatase 116 38 - 126 U/L 03/09/2017 10:[address] [facility] ALT 107(H) 13 - 61 U/L 03/09/2017 10:[address] [facility] AST 95(H) 5 - 40 U/L 03/09/2017 10:[address] [facility] Protein Total 8.8(H) 6.4 - 8.2 gm/dL 03/09/2017 10:[address] [facility] Albumin 4.0 3.4 - 5.0 gm/dL 03/09/2017 10:[address] [facility] Bilirubin Total 0.4 0.2 - 1.0 mg/dL 03/09/2017 10:[address] [facility] eGFR by MDRD >60 >60 mL/min/1.7 3m2 03/09/2017 10:[address] [facility] eGFR by MDRD >60 >60 mL/min/1.7 3m2 03/09/2017 10:[address] [facility] Blood BLOOD SPECIMEN / Unknown Venipuncture / Unknown 03/09/2017 10:07 AM CDT 03/09/2017 10:[address] [facility] - 03/09/2017 10:31 AM CDT Slight hemolysis Rachid Armenta MD LAB - CHEMISTRY ORDERABLES 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 See Tip Sheet for instructions. 0.9% NaCl IV Bolus 1,000 mL, Administer over 31 Minutes, NOW, 1 dose, On Sun03/09/17 at 0945 $ Given 03/09/2017 10:43 AM CDT 1,000 mL iohexol (OMNIPAQUE 350) contrast Intravenous, CONTRAST ONCE, Starting on Sun03/09/17 at 1102, Until Sun03/09/17 at 1436 $ Given - Contrast 03/09/2017 11:09 AM CDT 100 mL morphine (pf) 4 mg / ml injection ADS Med 1 dose, Starting on Sun03/09/17 at 1324, Until Sun03/09/17 at 1328, Viviana King : cabinet override morphine injection 4 mg 4 mg, Intravenous, NOW, 1 dose, On Sun03/09/17 at 1330 $ Given 03/09/2017 1:28 PM CDT 4 mg prochlorperazine (COMPAZINE) injection 10 mg 10 mg, Intravenous, EVERY 6 HOURS PRN, Nausea/Vomiting, Starting on Sun03/09/17 at 0930, Until Sun03/09/17 at 1436, Max intravenous rate = 5 mg/min $ Given 03/09/2017 10:43 AM CDT 10 mg documented in this encounter Active and Recently Administered Medications Times are shown in CDT. Scheduled Medication Order 03/07/2017 03/08/2017 03/09/2017 *Hold/Avoid Medication EVERY 12 HOURS (08 and 20), 6 doses, First dose on Sun03/09/17 at 1115, Last dose on Sun03/11/17 at 2000, Please place medication(s) named below on MAR Hold. See Tip Sheet for instructions. 1115 (Due) 0.9% NaCl IV Bolus (COMPLETED) 1,000 mL, Administer over 31 Minutes, NOW, 1 dose, On Sun03/09/17 at 0945 1043 ($ Given - Prov ider: Viviana King RN)1114 (Due: Rx Stopped - Provider: Viviana King RN) iohexol (OMNIPAQUE 350) contrast Intravenous, CONTRAST ONCE, Starting on Sun03/09/17 at 1102, Until Sun03/09/17 at 1436 1109 ($ Given - Cont rast - Provider: Cait Callejas) morphine injection 4 mg (COMPLETED) 4 mg, Intravenous, NOW, 1 dose, On Sun03/09/17 at 1330 1328 ($ Given - Prov ider: Viviana King, RN) PRN Medication Order 03/07/2017 03/08/2017 03/09/2017 prochlorperazine (COMPAZINE) injection 10 mg 10 mg, Intravenous, EVERY 6 HOURS PRN, Nausea/Vomiting, Starting on Sun03/09/17 at 0930, Until Sun03/09/17 at 1436, Max intravenous rate = 5 mg/min 1043 ($ Given - Prov ider: Viviana King, JACK) documented in this encounter Care Teams Certified Phlebotomy Technician Relationship Specialty Start Date End Date Hilda Eden APRN-SOCIAL MEDIA SPECIALIST [address] [place] [address] PCP - General Nurse Practitioner 11/05/14 01/02/18 documented as of this encounter
--- OUTSIDE RECORDS SUMMARY | 2024-08-03 01:37 | XMS_ITS | Encounter Summary ---
Author Organization [facility] Health Address [address] [address] Care Team Providers Care Lamps Tester And Inspector Name Role Phone Hilda Eden A/C TECH-FINANCIAL ADMINISTRATIVE ASSISTANT Primary Care Provider [phone] Reason for Visit * Reason Comments Refill Request Encounter Details Date Type Department Care Team (Late st Contact Info) Description 10/15/2017 Refill [facility] [address] [phone] [place] [address] [address] Refill Request Social History Tobacco [...] encounter Miscellaneous Notes * Telephone Encounter - Nerissa Mccain - 10/17/2017 3:54 PM CST Requested Prescriptions Pending Prescriptions Disp Refills ??? [id number] (FIORICET) 50-325-40 MG tablet [Pharmacy Med Name: [id number] 50-325-40] 30 tablet 5 Sig: TAKE 1 TABLET BY MOUTH EVERY 4 HOURS NEEDED FOR HEADACHE Last OV 06/14/17 Last RF 06/14/17 SUPERVISOR documented in this encounter Plan of Treatment Not on file documented as of this encounter Visit Diagnoses Not on filedocumented in this encounter Care Teams Lamps Tester And Inspector Relationship Specialty Start Date End Date Hilda Eden APRN-[place] [address] [place] [address] PCP - General Nurse Practitioner 11/05/14 01/02/18 documented as of this encounter
--- OUTSIDE RECORDS SUMMARY | 2024-08-03 01:37 | XMS_ITS | Encounter Summary ---
Author Organization [facility] Health Address [address] [place] [address] Care Team Providers Care Organizational Development Specialist Name Role Phone Hilda Eden CUSTOMER SUCCESS DIRECTOR-SALESPERSON [employer] Primary Care Provider [phone] Encounter Details Date Type Department Care Team (Late st Contact Info) Description 03/14/2017 Anesthesia Historic Visit [facility] [address] [place] [phone] Social History Tobacco Use Types Packs/Day Years [...] on filedocumented in this encounter Care Teams Organizational Development Specialist Relationship Specialty Start Date End Date Hilda Eden APRN-SALESPERSON [employer] [address] [place] [address] PCP - General Nurse Practitioner 11/05/14 01/02/18 documented as of this encounter
--- OUTSIDE RECORDS SUMMARY | 2024-08-03 01:37 | XMS_ITS | Encounter Summary ---
Author Organization [facility] Address [address] [place] [address] Care Team Providers Care Curing Press Maintainer Name Role Phone Hilda Eden SUPERVISOR COMPOUNDING AND FINISHING-CHANGE CONSULTANT Primary Care Provider [phone] Reason for Visit * Reason Comments POST-OP PROBLEM pt to ED with c/o hilton ving lymph nodes removed from right arm pit. pt reports to now having a red, swollen area and pus under the skin. pt denies any drainage at this time but reports it looks like its ready to start draining. area is painful and red. Encounter Details Date Type Department Care Team (Late st Contact Info) Description 11/21/2014 7:17 PM CDT - 11/21/2014 8:52 PM CDT Emergency ER at [address] [address] Cabrera Braun DO [address] [place] [address] Emergency Department [place] [id number] Fluid collection at surgical site, subsequent encounter Discharge Disposition: Home or Self Care Social [...] Sign Reading Time Taken Comments Blood Pressure 151/104 11/21/2014 7:11 PM CDT Pulse 97 11/21/2014 7:11 PM CDT Temperature 36.7 ??C (98.1 ??F) 11/21/2014 7:11 PM CD T Respiratory Rate 18 11/21/2014 7:11 PM CDT Oxygen Saturation 99% 11/21/2014 7:11 PM CDT Inhaled Oxygen Concentration - - Weight 117.9 kg (260 lb) 11/21/2014 7:11 PM CDT Height 167.6 cm (5' 6 ) 11/21/2014 7:11 PM CDT Body Mass Index 41.97 11/21/2014 7:11 PM CDT documented in this encounter Functional [...] as of this encounter Discharge Instructions * Discharge Instructions* Cabrera Braun DO - 11/21/2014 8:33 PM CDT Fluid collection ? SEEK MEDICAL CARE IF: ?? You have increased pain, swelling, redness, fluid drainage, or bleeding. ?? You have muscle aches, chills, or a general ill feeling. ?? You have a fever. MAKE SURE YOU: ?? Understand these instructions. ?? Will watch your condition. ?? Will get help right away if you are not doing well or get worse. Document Released: 05/09/2006 Document Revised: 01/28/2013 Document Reviewed: 10/11/2012 ExitCare?? Patient Information ??2014 [employer]. documented in this encounter Medications at Time of Discharge Medication Sig Dispensed Refills Start Date End Date buPROPion (WELLBUTRIN) 75 MG tablet Take 150 mg by mouth 3 times daily. dicyclomine (BENTYL) 10 MG capsule Take 10 mg by mouth 3 times daily. amitriptyline (ELAVIL) 25 MG tablet Take 25 mg by mouth at bedtime. 06/14/2017 aspirin EC (ECOTRIN) 81 MG tablet Take 81 mg by mouth once daily. 06/14/2017 folic jgew-pwgvawygkt-swxvelnlv renetta (FOLGARD) 0.8-10-0.115 MG tablet Take 1 Tab by mouth once daily. 06/14/2017 hydrocodone-acetaminophen (NORCO) 7.5-325 MG tablet Take 1 Tab by mouth every 4 hours as needed for Pain. 30 Tab 0 11/10/2014 01/03/2018 l-methylfolate (DEPLIN) 15 MG tablet Take 15 mg by mouth once daily. 06/14/2017 omeprazole (PRILOSEC) 20 MG capsule Take 20 mg by mouth daily before breakfast. 06/14/2017 oxyCODONE-acetaminophen (PERCOCET) 7.5-325 MG tablet Take 1 Tab by mouth every 4 hours as needed for Pain. 20 Tab 0 11/21/2014 06/14/2017 oxyCODONE-acetaminophen (PERCOCET) 7.5-325 MG tablet Take 1 Tab by mouth at bedtime. 01/03/2018 Vit-Fe Fumarate-FA ( VITAMIN) 28-0.8 MG tablet Take 1 Tab by mouth daily. 06/14/2017 documented as of this encounter ED Notes * Aicha Mann RN - 11/21/2014 8:52 PM CDT Discharge instructions and prescriptions reviewed with pt. Pt verbalized understanding. No other questions or complaints at this time. No signs of distress, A&O x4. Pt ambulated out of ED, stablegait. * Aicha Mann RN - 11/21/2014 7:[address] Braun at pt's bedside to assess patient. * Cabrera Braun DO - 11/21/2014 7:41 PM CDTAssociated Order(s): ED INCISION AND DRAINAGE Provider contact with the patient: 11/21/2014 19:41 Vera Purdy [id number] [facility] History Chief Complaint Patient presents with ??? POST-OP PROBLEM pt to ED with c/o having lymph nodes removed from right arm pit. pt reports to now having a red, swollen area and pus under the skin. pt denies any drainage at this time but reports it looks like itsready to start draining. area is painful and [...] the area has been progressively getting worse. No headache/CP/SOB/Abd pain/nausea/vomiting/diarrhea/fever/chills/cough/rhinorrhea Allergies: Adhesive Sensitivity SocHx: Negative FMHx: HTN, Hypercholesteremia, DM Surgical Hx: Cholecystectomy, Hysteroscopy, Tympanoplasty, Physician: Hilda Eden BP 151/104 Pulse 97 Temp(Src) 98.1 ??F Resp 18 Ht 1.676 m (5' 6 ) Wt 117.935 kg (260 lb) BMI 41.99 kg/m2 SpO2 99% on RA. Past Medical History Diagnosis Date ??? Polycystic ovaries ??? Overweight, obesity and other hyperalimentation(278) ??? Trichomonas 2007 treated ??? Generalized anxiety disorder ??? Depressive disorder, not elsewhere classified ??? GERD (gastroesophageal reflux disease) ??? Pure hypercholesterolemia ??? Bipolar 1 disorder Past Surgical History Procedure Laterality Date ??? Tympanoplasty corrective hearing ??? Cholecystectomy ??? Hysteroscopy ??? section ??? Excision/ destruction tumor/mass Right 11/10/14 axillary and lymph node biopsy ??? Excision/ destruction tumor/mass 11/10/2014 EXCISION MASS RIGHT AXILLARY Family History Problem Relation Age of Onset ??? Diabetes Father ??? Diabetes Maternal Grandmother ??? Diabetes Brother ??? Hypertension Mother ??? Hypercholesterolemia Father History Social History ??? Marital Status: Spouse Name: N/A Number of Children: N/A ??? Years of Education: N/A Occupational History ??? Not on file. Social History Main Topics ??? Smoking status: Former Smoker -- 1.00 packs/day for 4 years Types: Cigarettes Quit date: 06/13/2014 ??? Smokeless tobacco: Never Used ??? Alcohol Use: No ??? Drug Use: No ??? Sexual Activity: Yes Other Topics Concern ??? Not on file Social History Narrative Review of Systems Review of Systems Constitutional: Negative for fever and chills. HENT: Negative for congestion. Eyes: Negative for blurred vision and double vision. Respiratory: Negative for cough and shortness of breath. Cardiovascular: Negative for chest pain and palpitations. Gastrointestinal: Negative for nausea, vomiting and abdominal pain. Musculoskeletal: Negative for back pain and neck pain. Skin: (+) Pain, swelling, and drainage to the R axilla Neurological: Negative for dizziness, focal weakness and headaches. All other systems reviewed and are negative. Physical Exam BP 151/104 Pulse 97 Temp(Src) 98.1 ??F Resp 18 Ht 1.676 m (5' 6 ) Wt 117.935 kg (260 lb) BMI 41.99 kg/m2 SpO2 99% on RA Physical Exam Constitutional: She is oriented to person, place, and time. She appears well- developed and well-nourished. No distress. HENT: Head: Normocephalic and atraumatic. Eyes: Conjunctivae and EOM are normal. Pupils are equal, round, and reactive to light. Neck: Normal range of motion. Neck supple. No tracheal deviation present. Cardiovascular: Normal rate, regular rhythm and normal heart sounds. Pulmonary/Chest: Effort normal and breath sounds normal. [...] redness. No evidence of cellulitis or infection. Psychiatric: She has a normal mood and affect. Her behavior is normal. Nursing note and vitals reviewed. Medications Current Outpatient Prescriptions Medication Sig Dispense Refill ??? oxyCODONE-acetaminophen (PERCOCET) 7.5-325 MG tablet Take 1 Tab by mouth every 4 hours as needed for Pain. 20 Tab 0 ??? hydrocodone-acetaminophen (NORCO) 7.5-325 MG tablet Take 1 Tab by mouth every 4 hours as neededfor Pain. 30 Tab 0 ??? l-methylfolate (DEPLIN) 15 MG tablet Take 15 mg by mouth once daily. ??? omeprazole (PRILOSEC) 20 MG capsule Take [...] Tab by mouth at bedtime. ??? folic dikr-wkziiwvhnb-suhjprjtnvkadl (FOLGARD) 0.8-10-0.115 MG tablet Take 1 Tab by mouth once daily. ??? aspirin EC (ECOTRIN) 81 MG tablet Take 81 mg by mouth once daily. ??? Vit-Fe Fumarate-FA ( VITAMIN) 28-0.8 MG tablet Take 1 Tab by mouth daily. Procedures Needle aspiration Date/Time: 11/21/2014 8:14 PM [...] confirmed: verbally with patient, arm band and hospital- assigned identification number Body area: upper extremity (R axilla) Anesthesia: local infiltration Local anesthetic: lidocaine 1% without epinephrine Patient sedated: no Needle gauge: 27. Drainage: serosanguinous (150cc) Patient tolerance: Patient tolerated the procedure well with no immediate complications ECG Interpretation ECG Interpretation Lab Interpretation Oxygen [...] return precautions. I explained to the patient thatemergent conditions may arise and to return to [...] case with Family/Caregiver. Orders Placed This Encounter ??? ED INCISION AND DRAINAGE ??? CULTURE FLUID+GRAM STAIN ??? vihrmzks-ftlyckhmff-ylpktxvle (NEOSPORIN) topical ointment ??? oxyCODONE-acetaminophen (PERCOCET) 7.5-325 MG tablet Based on pt's history and physical exam, pt presents to the ED with pain, swelling, and drainage tothe R axilla s/p lymph node removal x5 [...] Medications: Discharge Medication List as of 11/21/2014 8:33 PM START taking these medications Details !! oxyCODONE-acetaminophen (PERCOCET) 7.5-325 MG tablet Disp-20 Tab, R-0, Take 1 Tab by mouth every4 hours as needed for Pain., Print !! - Potential duplicate medications found. Please discuss with provider. I have advised the patient to follow-up with: Matthieu Saeed DO [id number] [facility] [address] Call in 2 days Hilda Eden APRN-CHANGE CONSULTANT Disposition: Discharged I have reviewed the information recorded by the scribe and agree with its accuracy and contents--Dr. Braun 11/21/2014 9:21 PM Transcribed by Maynor Langford acting scribe on behalf of Dr. Braun 11/21/2014 8:34 PM documented in this encounter Plan of Treatment Not on file documented as of this encounter Procedures Procedure Name Priority Date/Time Associated Diagnosis Comments ED INCISION AND DRAINAGE Routine 11/21/2014 9:21 PM CDT Fluid collection at surgical site, subsequent encounter CULTURE FLUID+GRAM STAIN STAT 11/21/2014 8:36 PM CDT documented in this encounter Results * ED INCISION AND DRAINAGE (11/21/2014 9:21 PM CDT) Narrative Cabrera Braun DO - 11/21/2014 9:21 PM CDT Cabrera Braun DO ? 11/21/2014 ??9:21 PM Provider contact with the patient: 11/21/2014 ?19:41 Vera Purdy [id number] [facility] History Chief Complaint Patient [...] not by physician. HPI Comments: 7:41 PM Veratristan Purdy is a 29 y.o. female with [...] Tab by mouth at bedtime. ? folic wbfd-ecrjnulnge-azvthssqdlxtox (FOLGARD) 0.8-10-0.115 MG tablet Take 1 Tab [...] ? ? CULTURE FLUID+GRAM STAIN ? ? wfbjndmm-ehhhrupzfb-wmqnkcmkn (NEOSPORIN) topical ointment ? ? oxyCODONE-acetaminophen (PERCOCET) [...] patient to follow-up with: Matthieu Saeed DO [id number] [facility] [address] Call in 2 days CAROLYNE Rogel Disposition: Discharged I have reviewed the information recorded by the scribe and agree with its accuracy and contents--Dr. Braun 11/21/2014 9:21 PM Transcribed by Maynor Langford acting scribe on behalf of Dr. Braun 11/21/2014 8:34 PM Cabrera Braun DO PROCEDURE/MINOR HARDY RGICAL ORDERABLES * CULTURE FLUID+GRAM STAIN (11/21/2014 8:36 PM CDT) Culture No Growth BRYANT 11/29/2014 3:34 PM CDT [facility] Gram Stain Heavy Red blood cells 11/29/2014 3:34 PM CDT [facility] Gram Stain No organisms seen 11/29/2014 3:34 PM CDT [facility] Fluid BODY FLUID SPECIMEN / Unknown 11/21/2014 8:36 PM CDT 11/21/2014 8:51 PM CDT Cabrera Braun DO LAB - MICROBIOLOGY ORDERABLES [facility] [address] [place] [id number], [facility] [phone] documented in this encounter Visit Diagnoses Diagnosis Fluid collection at surgical site, subsequent encounter documented in this encounter Active and Recently Administered Medications Care Teams Curing Press Maintainer Relationship Specialty Start Date End Date Hilda Eden APRN-CNP [address] [place] [id number] PCP - General Nurse Practitioner 11/05/14 01/02/18 documented as of this encounter
--- OUTSIDE RECORDS SUMMARY | 2024-08-03 01:37 | XMS_ITS | Encounter Summary ---
Author Organization [facility] Address [address] [place] [address] Care Team Providers Care Allopathic Doctor Name Role Phone Bernadine Dionicio Arnel Primary Care Provider Reason for Visit * Reason Comments Pain Abdominal RLQ abdominal pain w ith assocoiated nausea, vomiting and loose stools, Denies Fever Encounter Details Date Type Department Care Team (Late st Contact Info) Description 01/03/2018 7:54 AM CDT - 01/03/2018 11:09 AM CDT Emergency ER at [facility] [address] [place] [id number] Russell Sood, [address] [place] [id number] Abdominal pain during in first trimester (HCC) (Primary Dx); Cyst of right ovary Discharge Disposition: Home or [...] Sign Reading Time Taken Comments Blood Pressure 128/59 01/03/2018 10:55 AM CDT Pulse 77 01/03/2018 11:03 AM CDT Temperature 36.9 ??C (98.5 ??F) 01/03/2018 8:06 AM CD T Respiratory Rate 17 01/03/2018 11:03 AM CDT Oxygen Saturation 98% 01/03/2018 11:03 AM CDT Inhaled Oxygen Concentration - - Weight 111.6 kg (246 lb) 01/03/2018 7:40 AM CDT Height 167.6 cm (5' 6 ) 01/03/2018 7:40 AM CDT Body Mass Index 39.71 01/03/2018 7:40 AM CDT documented in this encounter Functional [...] this encounter Discharge Instructions * Discharge Instructions* Russell Sood, - 01/03/2018 10:44 AM CDT Abdominal Pain in WHAT YOU NEED TO KNOW: Abdominal pain during is common. Some of the causes include heartburn, constipation, gas,false labor, and round ligament pain. Round ligament pain is caused by stretching of the ligaments that support your uterus. Abdominal pain may be caused by a health problem, such as a stomach virus or appendicitis (inflammation of the appendix). The pain may also be caused by a problem with your , such as a threatened miscarriage or labor. DISCHARGE INSTRUCTIONS: Follow up with your financial reporting accountant within 3 days: Write down your questions so you remember to ask them during your visits. Self-care: ?? Rest may help to relieve round ligament pain. Ask your healthcare provider about other ways to relieve this pain, such as a supportive belt or exercises. ?? Use a heating pad set to the lowest setting or a hot compress to apply heat to your abdomen. Do this for 20 to 30 minutes every 2 hours for as many days as directed. ?? Avoid quick changes in position or movements that cause pain. ?? Do not lie flat in bed or bend over if you have heartburn. Ask your financial reporting accountant if you should make any changes to the foods you eat. Ask if you can take any medicines for heartburn. ?? Eat more fiber and drink more liquids to relieve constipation. Fiber is found in fruits, vegetables, and whole-grain foods, such as whole-wheat bread and cereals. Ask how much liquid to drink eachday and which liquids are best for you. Contact your financial reporting accountant if: ?? You continue to have abdominal pain that cannot be relieved. ?? You have a fever. ?? You have questions or concerns about your condition or care. Return to the emergency department if: ?? You have sudden, severe pain or cramps that are so bad that you cannot walk or talk. ?? You have a fast heartbeat, shortness of breath, and you feel lightheaded or faint. ?? You have vaginal bleeding or discharge. ?? You have nausea, vomiting, fever, and severe pain on your right side. ?? 2017 [employer] Information is for End User's use only and may not be sold, redistributed or otherwise used for commercial purposes. All illustrations and images included in CareNotes?? are the copyrighted property of [employer]. or [employer]. The above information is an educational manager only. It is not intended as medical advice for individual conditions or treatments. Talk to your doctor, nurse or pharmacist before following any medical regimen to see if it is safe and effective for you. Ovarian Cyst WHAT YOU NEED TO KNOW: An ovarian cyst is a sac that grows on an ovary. This sac usually contains fluid, but may sometimeshave blood or tissue in it. Most ovarian cysts are harmless and go away without treatment in a few months. Some cysts can grow large, cause pain, or break open. DISCHARGE INSTRUCTIONS: Call 911 for any of the following: ?? You are too weak or dizzy to stand up. Return to the emergency department if: ?? You have severe abdominal pain. The pain may be sharp and sudden. ?? You have a fever. Contact your healthcare provider if: ?? Your periods are early, late, or more painful than usual. ?? You have bleeding from your vagina that is not your period. ?? You have abdominal pain all the time. ?? Your abdomen is swollen. ?? You have feelings of fullness, pressure, or discomfort in your abdomen. ?? You have trouble urinating or emptying your bladder completely. ?? You have pain during sex. ?? You are losing weight without trying. ?? You have questions or concerns about your condition or care. Medicines: You may need any of the following: ?? NSAIDs , such as ibuprofen, help decrease swelling, pain, and fever. This medicine is available with or without a doctor's order. NSAIDs can cause stomach bleeding or kidney problems in certain people. If you take blood thinner medicine, always ask if NSAIDs are safe for you. Always read the medicine label and follow directions. Do not give these medicines to children under 6 months of age without direction from your child's healthcare provider. ?? control pills may help to control your periods, prevent cysts, or cause them to shrink. ?? Take your medicine as directed. Contact your healthcare provider if you think your medicine is not helping or if you have side effects. Tell him or her if you are allergic to any medicine. Keep a list of the medicines, vitamins, and herbs you take. Include the amounts, and when and why you take them. Bring the list or the pill bottles to follow-up visits. Carry your medicine list with you in case of an emergency. Follow up with your healthcare provider as directed: Write down your questions so you remember to ask them during your visits. Apply heat to decrease pain and cramping: Sit in a warm bath, or place a heating pad (turned on low) or a hot water bottle on your abdomen. Do this for 15 to 20 minutes every hour for as many days asdirected. ?? 2017 [employer] Information is for End User's use only and may not be sold, redistributed or otherwise used for commercial purposes. All illustrations and images included in CareNotes?? are the copyrighted property of [employer] or [employer]. The above information is an educational manager only. It is not intended as medical advice for individual conditions or treatments. Talk to your doctor, nurse or pharmacist before following any medical regimen to see if it is safe and effective for you. documented in this encounter Medications at Time of Discharge Medication Sig Dispensed Refills Start Date End Date albuterol HFA (PROVENTIL;VENTOLIN;ND OAIR) 108 (90 BASE) MCG/ACT inhaler Inhale 1 (one) puff by mouth 2 times daily amitriptyline (ELAVIL) 10 MG tablet Take 10 mg by mouth at bedtime 02/04/2017 buPROPion (WELLBUTRIN) 75 MG tablet Take 150 mg by mouth 3 times daily. busPIRone (BUSPAR) 10 MG tablet Take 10 mg by mouth 3 times daily 1 11/15/2017 butalbital-acetaminoph en-caffeine (FIORICET) 50-325-40 MG tablet TAKE 1 TABLET [...] Take 7.5 mg by mouth once daily metFORMIN (GLUCOPHAGE) 500 MG tablet Take 500 mg by mouth 2 times daily with morning and evening meal 05/11/2017 Prenat w/o L-JP-Jtelttg-FA-DHA (PNV-DHA PO) Take by mouth once daily progesterone micronized (PROMETRIUM) 200 MG capsule Take 200 mg by mouth at bedtime 11/16/2017 Pyridoxine HCl (B-6) 50 MG Take 0.5 tablets by mouth once daily 10 tablet 01/03/2018 TRINTELLIX 10 MG tabletIndications:at the same time each day Take 10 mg by mouth once daily Reasons: at the same time each day 1 05/10/2017 zonisamide (ZONEGRAN) 25 MG capsule TAKE 2 CAPSULES BY MOUTH ONCE DAILY 60 capsule 11 07/20/2017 05/21/2018 documented as of this encounter ED Notes * Kiki Gonsales RN - 01/03/2018 11:06 AM CDT Pt verbalized understanding of discharge instructions and is being discharged to home. Pt did not have any other questions at this time. * Kiki Gonsales RN - 01/03/2018 10:06 AM CDT Pt sitting quietly at this time. Will continue to monitor. * Kiki Gonsales RN - 01/03/2018 9:32 AM CDT Pt returned from US * Kiki Gonsales RN - 01/03/2018 9:26 AM CDT Report received from [facility] * Kiki Gonsales RN - 01/03/2018 9:04 AM CDT Pt to US * Ryan Meza RN - 01/03/2018 8:06 AM CDT Reports lower right flank pain that radiates to the abdomen x several weeks with nausea and vomiting. Patient oriented x 4 and ambulatory. Reports being 12 wks with history of several miscarriages and ectopic . Last ultrasound was last week. Dr Sood at patient bedside * Ryan Meza RN - 01/03/2018 8:05 AM CDT Patient ambulatory to ED room * Russell Sood DO - 01/03/2018 7:55 AM CDT Provider contact with the patient: 01/03/2018 07:55 Vera Vitale [id number] [facility] EMERGENCY DEPARTMENT History Chief Complaint Patient presents with ??? Pain Abdominal RLQ abdominal pain with assocoiated nausea, vomiting and loose stools, Denies Fever HPI Comments: Vera Vitale is a 32 y.o.female presenting to the ED complaining of RLQ abdominal pain that radiates to her right side. The patient reports associated vomiting. Vomiting relieves theabdominal pain slightly. She denies vaginal bleeding, back pain, or dysuria. The patient is taking Reglan but with no relief. The patient states she is currently ( P:2 A:10) with her LNMP being 12 weeks and 4 days ago. She has a surgical history of cholecystectomy, C- section, and removal of her left ovary due to a ruptured ectopic. She denies history of GERD. Pain Abdominal Pain location: RLQ Pain quality: sharp Pain radiates to: R flank Pain severity: Mild Onset quality: Sudden Timing: Constant Chronicity: New Relieved by: Vomiting Worsened by: Eating Associated symptoms: nausea and vomiting Associated symptoms: no chest pain, no chills, no constipation, no cough, no diarrhea, no dysuria, no fever, no shortness of breath and no sore throat Past Medical History: Diagnosis Date ??? Arthritis [...] paper tape ??? Control Pill Form [Other] Review of Systems Review of Systems Constitutional: Negative. Negative for chills, diaphoresis and fever. HENT: Negative. Negative for congestion, ear pain and sore throat. Eyes: Negative. Negative for blurred vision, pain, discharge and redness. Respiratory: Negative. Negative for cough, shortness of breath and wheezing. Cardiovascular: Negative. Negative for chest pain and leg swelling. Gastrointestinal: Positive for abdominal pain, nausea and vomiting. Negative for blood in stool, constipation, diarrhea and heartburn. Genitourinary: Negative. Negative for dysuria and frequency. Musculoskeletal: Negative. Negative for back pain and myalgias. Skin: Negative. Negative for rash. Neurological: Negative. Negative for dizziness, tremors, focal weakness, seizures, loss of consciousness and headaches. Endo/Heme/Allergies: Negative. Does not bruise/bleed easily. Psychiatric/Behavioral: Negative. The patient is not nervous/anxious. All other systems reviewed and are negative. Physical Exam Blood pressure 128/59, pulse 77, temperature 98.5 ??F (36.9 ??C), resp. rate 17, height 1.676 m (5'6 ), weight 111.6 kg (246 lb), last menstrual period 02/21/2017, SpO2 98 %, not currently . Physical Exam Constitutional: She is oriented to person, place, and time. She appears well- developed and well-nourished. No distress. HENT: Head: Normocephalic and atraumatic. Right Ear: External ear normal. Left Ear: External ear normal. Nose: Nose normal. Mouth/Throat: Oropharynx is clear and moist. Eyes: Conjunctivae and EOM are normal. Pupils are equal, round, and reactive to light. No scleral icterus. Neck: Normal range of motion. Neck supple. No tracheal deviation present. Cardiovascular: Normal rate, regular rhythm, normal heart sounds and intact distal pulses. No murmur heard. Pulses: Radial pulses are 2+ on the right side, and 2+ on the left side. Femoral pulses are 2+ on the right side, and 2+ on the left side. Dorsalis pedis pulses are 2+ on the right side, and 2+ on the left side. Pulmonary/Chest: Effort normal and breath sounds normal. No respiratory distress. She has no wheezes. She has no rales. She exhibits no tenderness. Abdominal: Soft. Bowel sounds are normal. She exhibits no distension. There is no tenderness. Abdomen non tender on exam; Musculoskeletal: Normal range of motion. She exhibits no edema or tenderness. Neurological: She is alert and oriented to person, place, and time. No cranial nerve deficit. Skin: Skin is warm and dry. No rash noted. She is not diaphoretic. No erythema. Psychiatric: Her behavior is normal. Judgment and thought content normal. Her mood appears anxious. Nursing note and vitals reviewed. Medications Current Outpatient Prescriptions Medication Sig Dispense Refill ??? doxylamine (UNISOM) 25 MG tablet Take 0.5 tablets by mouth nightly as needed (nausea) If nauseadoes not improve can take BID PRN nausea 15 tablet 0 ??? Pyridoxine HCl (B-6) 50 MG Take 0.5 tablets by mouth once daily 10 tablet 0 ??? jhajtrgvbl-ihwnzgcoyalmu-poraxjvs (FIORICET) 50-325-40 MG tablet TAKE 1 TABLET BY MOUTH EVERY 4HOURS NEEDED FOR HEADACHE 30 tablet 5 ??? zonisamide (ZONEGRAN) 25 MG capsule TAKE 2 CAPSULES BY MOUTH ONCE DAILY 60 capsule 11 ??? TRINTELLIX 10 MG tablet Take 10 mg by mouth once daily Reasons: at the same time each day 1 ??? metFORMIN (GLUCOPHAGE) 500 MG tablet Take 500 mg by mouth 2 times daily with morning and evening meal 11 ??? L-Methylfolate (DEPLIN) 7.5 MG Take 7.5 mg by mouth once daily ??? Prenat w/o D-TD-Woetpuz-FA-DHA (PNV-DHA PO) Take by mouth once daily ??? HYDROmorphone (DILAUDID) 4 MG tablet Take 4 mg by mouth 2 times daily ??? amitriptyline (ELAVIL) 10 MG tablet Take 10 mg by mouth at bedtime ??? albuterol HFA (PROVENTIL;VENTOLIN;PROAIR) 108 (90 BASE) MCG/ACT inhaler Inhale 1 puff by mouth 2 times daily ??? progesterone micronized (PROMETRIUM) 200 MG capsule Take 200 mg by mouth at bedtime 1 ??? busPIRone (BUSPAR) 10 MG tablet Take 10 mg by mouth 3 times daily 1 ??? dicyclomine (BENTYL) 10 MG capsule Take 10 mg by mouth 3 times daily. ??? buPROPion (WELLBUTRIN) 75 MG tablet Take 150 mg by mouth 3 times daily. Procedures Procedures ECG Interpretation ECG Interpretation Lab Interpretation Oxygen Saturation Interpretation The oxygen saturation level is: 100%. The patient was on Room Air for the saturation measurement. Oxygen saturation interpretation is Normal. Intervention(s) used: None. Hospital Encounter on 01/03/18 URINALYSIS REFLEX MICROSCOPIC REFLEX CULTURE Result Value Ref Range Color UA Yellow Straw, Yellow Clarity UA Cloudy (Abnormal) Clear Glucose UA Negative Negative Bili UA Negative Negative Ketone UA Negative Negative Specific [place] UA 1.017 1.005 - 1.030 Blood UA Negative Negative pH UA 7.0 5.0 - 8.0 pH Protein UA Negative Negative Urobilinogen UA Negative Negative mg/dL Nitrite UA Negative Negative Leukocyte UA 2+ (Abnormal) Negative Urine Microscopy Urine microscopy to follow Reflex Status Culture to follow HCG URINE QUAL POCT NOTIFICATION Result Value Ref Range COMMENT Notification Label Only - See Separate Report CBC W AUTO DIFFERENTIAL Result Value Ref Range WBC 6.6 4.4 - 10.7 x10E9/L WBC Corrected x10E9/L RBC 5.01 3.80 - 5.20 x10E12/L Hemoglobin 14.3 12.0 - 15.6 gm/dL Hematocrit 41.4 35.9 - 45.5 % MCV 82.6 80.7 - 98.3 fl MCH 28.5 26.7 - 34.0 pg MCHC 34.5 30.8 - 35.9 gm/dL Plt Ct 237 153 - 416 x10E9/L RDW-CV 13.9 12.1 - 14.9 % MPV 8.3 (L) 9.4 - 12.9 fl Neutro 66.5 44.0 - 73.0 % Lymph 26.2 20.0 - 43.0 % [place] 5.9 5.0 - 13.0 % Eos 0.9 0.0 - 6.0 % Baso 0.2 0.0 - 2.0 % Immature Grans 0.3 0 - 1 % Neutro Abs 4.42 2.01 - 7.14 x10E9/L Lymph Abs 1.74 1.07 - 3.94 x10E9/L [place] Abs 0.39 0.26 - 1.07 x10E9/L Eosin Abs 0.06 0 - 0.47 x10E9/L Baso Abs 0.01 0 - 0.08 x10E9/L Immature Grans (Abs) 0.02 0.00 - 0.06 x10E9/L NRBC Auto 0 /100 WBC COMPREHENSIVE METABOLIC PANEL Result Value Ref Range Glucose 94 74 - 106 mg/dL Sodium 139 136 - 145 mmol/L Potassium 3.5 3.5 - 5.1 mmol/L Chloride 107 98 - 107 mmol/L CO2 23 22 - 31 mmol/L Calcium 9.3 8.5 - 10.1 mg/dL Anion Gap 9 8 - 16 mmol/L BUN 6 (L) 7 - 21 mg/dL Creatinine 0.52 0.50 - 1.30 mg/dL Alkaline Phosphatase 133 (H) 38 - 126 U/L ALT/SGPT 56 13 - 61 U/L AST/SGOT 17 5 - 40 U/L Protein Total 7.7 6.4 - 8.2 gm/dL Albumin 3.7 3.4 - 5.0 gm/dL Bili Total 0.3 0.2 - 1.0 mg/dL eGFR MDRD >60 >60 mL/min/1.73m2 eGFR MDRD AFR AMR >60 >60 mL/min/1.73m2 MAGNESIUM BLOOD Result Value Ref Range Magnesium 1.9 1.6 - 2.6 mg/dL HCG BETA BLOOD QUANTITATIVE Result Value Ref Range HCG Quant Serum 78235 mIU/mL URINE MICROSCOPIC ONLY REFLEX TO CULTURE Result Value Ref Range Reflex Status Culture to follow RBC UA 0-5 0-5, None Seen # /hpf WBC UA 0-5 0-5, None Seen # /hpf Bacteria UA Trace (Abnormal) None Seen Squamous epithelial cells 11-20 (Abnormal) None Seen, 0-2, 3-5 /hpf Mucus 1+ /LPF HCG URINE QUALITATIVE - POCT (IP) INTERFACED Result Value Ref Range HCG Qual Urine Positive (Abnormal) Negative US OB LESS THAN 14 WKS W DOPPLER Final Result EXAM: Pelvic sonogram with transabdominal and transvaginal [...] Oropeza MD on 01/03/2018 at 10:02 AM Progress Notes 7:55 AM Initial Assessment: Patient was made aware of the plan to order labs and perform US. Pt understands and agrees with the plan. 10:29 AM: Updated patient on US results showing a cyst on the right ovary. 10:33 AM Rechecked pt -patient resting comfortably and feeling better. I discussed the results of diagnostic studies, my clinical impression, and the plan for further treatment with the patient. Patient agrees with plan and discharge at this time, all questions addressed. Pt is medically stable for discharge at this time. I have given the patient instructions regarding her diagnosis, expectations, follow up, and return precautions. I explained to the patient that emergent conditions may arise and to return to the ER for new, worsening, or any persistent conditions. I've explained the importance of following up with her Primary Care Physician-(or the referral physician listed below) as instructed. The patient verbalized understanding of the discharge instructions. ED Course ED Course Medical Decision Making I have reviewed the: Previous Chart, Nursing Notes, Vitals. I have interpreted the following results: Labs, Ultrasound, Oxygen Saturation. No abdominal tenderness on exam. Ovarian cyst on exam. US showing live IUP. WBC wnl on RA. Tolerating PO. Patient with no apparent acute surgical condition at this time. The abdominal pain is undifferentiated. I have spoken with the patient at great length and recommend to return to the ED in 12 hours for abdominal re-examination. The patient displays understanding. I have done appendicitis teaching at the bedside and what to symptomatolgy to watch out for and when to return to the ED Orders Placed This Encounter ??? CULTURE URINE ??? US OB LESS THAN 14 WKS W DOPPLER ??? URINALYSIS REFLEX MICROSCOPIC REFLEX CULTURE ??? HCG URINE QUAL POCT NOTIFICATION ??? CBC W AUTO DIFFERENTIAL ??? COMPREHENSIVE METABOLIC PANEL ??? MAGNESIUM BLOOD ??? HCG BETA BLOOD QUANTITATIVE ??? URINE MICROSCOPIC ONLY REFLEX TO CULTURE ??? acetaminophen (TYLENOL) tablet 1,000 mg ??? doxylamine (UNISOM) 25 MG tablet ??? Pyridoxine HCl (B-6) 50 MG Clinical Impression Final diagnoses: Abdominal pain during in first trimester (Primary) Cyst of right ovary New Medications: Discharge Medication List as of 01/03/2018 10:44 AM START taking these medications Details doxylamine (UNISOM) 25 MG tablet Disp-15 tablet, R-0, Take 0.5 tablets by mouth nightly as needed (nausea) If nausea does not improve can take BID PRN nausea, Print Pyridoxine HCl (B-6) 50 MG Disp-10 tablet, R-0, Take 0.5 tablets by mouth once daily, Print I have advised the patient to follow-up with: Dionicio Colindres DO [address] [place] [id number] Call in 1 day ovarian cyst, If symptoms worsen return to the emergency department Disposition: Discharged By signing my name below, I, Barb Pierce, attest that this documentation has been prepared under the direction and in the presence of Dr. Sood. Electronically Signed: Devika Pepper. 01/03/2018 9:00 PM I, Dr. Sood, personally performed the services described in this documentation. All medical recordentries made by the scribe were at my direction and in my presence. I have reviewed the chart and discharge instructions and agree that the record reflects my personal performance and is accurate andcomplete. Dr. Sood, 01/03/2018 9:00 PM documented in this encounter Plan of Treatment Not on file documented as of this encounter Procedures Procedure Name Priority Date/Time Associated Diagnosis Comments US OB LESS THAN 14 WKS W DOPPLER STAT 01/03/2018 9:35 AM CDT Abdominal pain during in first trimester (HCC) HCG URINE QUALITATIVE - POCT (IP) INTERFACED Routine 01/03/2018 8:21 AM CDT URINE MICROSCOPIC ONLY REFLEX TO CULTURE STAT 01/03/2018 8:18 AM CDT URINALYSIS REFLEX MICROSCOPIC REFLEX CULTURE STAT 01/03/2018 8:18 AM CDT CULTURE URINE STAT 01/03/2018 8:18 AM CDT HCG URINE QUAL POCT NOTIFICATION STAT 01/03/2018 8:15 AM CDT CBC W AUTO DIFFERENTIAL STAT 01/03/2018 8:11 AM CDT COMPREHENSIVE METABOLIC PANEL STAT 01/03/2018 8:11 AM CDT HCG BETA BLOOD QUANTITATIVE STAT 01/03/2018 8:11 AM CDT MAGNESIUM BLOOD STAT 01/03/2018 8:11 AM CDT documented in this encounter Results * US OB LESS THAN 14 WKS [...] Positive(A ) Negative 01/03/2018 8:26 AM CDT [facility] Urine URINE / Unknown 01/03/2018 8 :21 AM CDT 01/03/2018 8:26 AM CDT Russell Sood DO LAB - POINT OF CARE ORDERABLES Performing Organization Address City/[facility]/ZIP Co de Phone Number [facility] [address] [place] [address] * CULTURE URINE (01/03/2018 8:18 AM CDT) Culture Urine 10,000-50,000 CFU/mL urogenital stephanie BRYANT 01/04/2018 1:13 PM CDT [facility] Urine URINE SPECIMEN OBTAINED BY CLEAN CATCH PROCEDURE / Unknown Collection / Unknown 01/03/2018 8:18 AM CDT 01/03/2018 8:50 AM CDT Russell Sood DO LAB - MICROBIOLOGY O RDERABLES [facility] [address] [phone] * (ABNORMAL) URINE MICROSCOPIC ONLY REFLEX TO CULTURE (01/03/2018 8:18 AM CDT) Reflex Status Culture to follow 01/03/2018 8:57 AM CDT [facility] RBC UA 0-5 0-5, None Seen # /hpf 01/03/2018 8:57 AM CDT [facility] WBC UA 0-5 0-5, None Seen # /hpf 01/03/2018 8:57 AM CDT [facility] Bacteria UA Trace(A) None Seen 01/03/2018 8:57 AM CDT [facility] Squamous Epithelial Cells 11-20(A) None Seen, 0-2, 3-5 /hpf 01/03/2018 8:57 AM CDT [facility] Mucus UA 1+ /LPF 01/03/2018 8:57 AM CDT [facility] Urine URINE SPECIMEN OBTAINED BY CLEAN CATCH PROCEDURE / Unknown Collection / Unknown 01/03/2018 8:18 AM CDT 01/03/2018 8:50 AM CDT Narrative [facility] - 01/03/2018 8:57 AM CDT Russell Sood DO LAB - URINALYSIS ORD ERABLES [facility] [address] [place] [address] * (ABNORMAL) URINALYSIS REFLEX MICROSCOPIC REFLEX CULTURE (01/03/2018 8:18 AM CDT) Color UA Yellow Straw, Yellow 01/03/2018 8:57 AM CDT [facility] Clarity UA Cloudy(A) Clear 01/03/2018 8:57 AM CDT [facility] Glucose UA Negative Negative 01/03/2018 8:57 AM CDT [facility] Bilirubin UA Negative Negative 01/03/2018 8:57 AM CDT [facility] Ketone UA Negative Negative 01/03/2018 8:57 AM CDT [facility] [facility] Specific [place] UA 1.017 1.005 - 1.030 01/03/2018 8:57 AM CDT [facility] Blood UA Negative Negative 01/03/2018 8:57 AM CDT [facility] pH UA 7.0 5.0 - 8.0 pH 01/03/2018 8:57 AM CDT [facility] Protein UA Negative Negative 01/03/2018 8:57 AM CDT [facility] Urobilinogen UA Negative Negative mg/dL 01/03/2018 8:57 AM T [facility] Nitrite UA Negative Negative 01/03/2018 8:57 AM T [facility] Leukocyte UA 2+(A) Negative 01/03/2018 8:57 AM CDT [facility] Urine Microscopy Urine microscopy to follow 01/03/2018 8:57 AM T [facility] Reflex Status Culture to follow 01/03/2018 8:57 AM T [facility] Urine URINE SPECIMEN OBTAINED BY CLEAN CATCH PROCEDURE / Unknown Collection / Unknown 01/03/2018 8:18 AM CDT 01/03/2018 8:50 AM CDT Narrative [facility] - 01/03/2018 8:57 AM CDT Russell Sood DO LAB - URINALYSIS ORD ERABLES [facility] [address] [place] [address] * HCG URINE QUAL POCT NOTIFICATION (01/03/2018 8:15 AM CDT) Comment Notification Label Only - See Separate Report 01/03/2018 10:00 AM CDT [facility] Urine URINE / Unknown 01/03/2018 8 :15 AM CDT 01/03/2018 8:15 AM CDT Russell Sood DO LAB - URINALYSIS ORD [facility] Organization Address [facility] Co de Phone Number [facility] [address] [place] [address] * HCG BETA BLOOD QUANTITATIVE (01/03/2018 8:11 AM CDT) Pathologist [facility] hCG Quantitative 83,001 mIU/mL 01/04/20 18 8:49 AM CDT [facility] Blood BLOOD SPECIMEN / Unknown Venipuncture / Unknown 01/03/2018 8:11 AM CDT 01/03/2018 8:14 AM CDT Narrative [facility] - 01/03/2018 8:49 AM CDT ? hCG Reference Range, mIU/mL: ? Males [...] a serum FSH >20 IU/L makes unlikely. Russell Sood DO LAB - CHEMISTRY ELIZA LINTON Performing Organization Address [facility] de Phone Number [facility] [address] [place] [phone] * MAGNESIUM BLOOD (01/03/2018 8:11 AM CDT) Magnesium 1.9 1.6 - 2.6 mg/dL 01/03/2018 8:33 AM CDT [facility] Blood BLOOD SPECIMEN / Unknown Venipuncture / Unknown 01/03/2018 8:11 AM CDT 01/03/2018 8:14 AM CDT Russell Sood DO LAB - CHEMISTRY ELIZA LINTON Performing Organization Address [facility] de Phone Number [facility] [address] [place] [phone] * (ABNORMAL) COMPREHENSIVE METABOLIC PANEL (01/03/2018 8:11 AM CDT) [facility] Glucose 94 74 - 106 mg/dL 01/03/2018 8:33 AM CDT [facility] Sodium 139 136 - 145 mmol/L 01/03/2018 8:33 AM CDT [facility] Potassium 3.5 3.5 - 5.1 mmol/L 01/03/2018 8:33 AM CDT [facility] Chloride 107 98 - 107 mmol/L 01/03/2018 8:33 AM CDT [facility] CO2 23 22 - 31 mmol/L 01/03/2018 8:33 AM CDT [facility] Calcium 9.3 8.5 - 10.1 mg/dL 01/03/2018 8:33 AM CDT [facility] Anion Gap 9 8 - 16 mmol/L 01/03/2018 8:33 AM CDT [facility] BUN 6(L) 7 - 21 mg/dL 01/03/2018 8:33 AM CDT [facility] Creatinine 0.52 0.50 - 1.30 mg/dL 01/03/2018 8:33 AM CDT [facility] Alkaline Phosphatase 133(H) 38 - 126 U/L 01/03/2018 8:33 AM CDT [facility] ALT 56 13 - 61 U/L 01/03/2018 8:33 AM CDT [facility] AST 17 5 - 40 U/L 01/03/2018 8:33 AM [facility] Protein Total 7.7 6.4 - 8.2 gm/dL 01/03/2018 8:33 AM T [facility] Albumin 3.7 3.4 - 5.0 gm/dL 01/03/2018 8:33 AM CDT [facility] Bilirubin Total 0.3 0.2 - 1.0 mg/dL 01/03/2018 8:33 AM CDT [facility] eGFR by MDRD >60 >60 mL/min/1.7 3m2 01/03/2018 8:33 AM CDT [facility] eGFR by MDRD >60 >60 mL/min/1.7 3m2 01/03/2018 8:33 AM CDT [facility] Blood BLOOD SPECIMEN / Unknown Venipuncture / Unknown 01/03/2018 8:11 AM CDT 01/03/2018 8:14 AM CDT Russell Sood DO LAB - CHEMISTRY ELIZA LINTON [facility] [address] [place] [address] * (ABNORMAL) CBC W AUTO DIFFERENTIAL (01/03/2018 8:11 AM CDT) WBC 6.6 4.4 - 10.7 x10E9/L 01/03/2018 8:16 AM CDT [facility] WBC Corrected x10E9/L 01/03/2018 8:16 AM CDT [facility] RBC 5.01 3.80 - 5.20 x10E12/L 01/03/2018 8:16 AM CDT [facility] Hemoglobin 14.3 12.0 - 15.6 gm/dL 01/03/2018 8:16 AM CDT [facility] Hematocrit 41.4 35.9 - 45.5 % 01/03/2018 8:16 AM CDT [facility] MCV 82.6 80.7 - 98.3 fl 01/03/2018 8:16 AM CDT [facility] MCH 28.5 26.7 - 34.0 pg 01/03/2018 8:16 AM CDT [facility] MCHC 34.5 30.8 - 35.9 gm/dL 01/03/2018 8:16 AM CDT [facility] Platelet Count 237 153 - 416 x10E9/L 01/03/2018 8:16 AM CDT [facility] RDW-CV 13.9 12.1 - 14.9 % 01/03/2018 8:16 AM CDT [facility] MPV 8.3(L) 9.4 - 12.9 fl 01/03/2018 8:16 AM CDT [facility] Neutrophils % 66.5 44.0 - 73.0 % 01/03/2018 8:16 AM CDT [facility] Lymphocytes % 26.2 20.0 - 43.0 % 01/03/2018 8:16 AM CDT [facility] Monocytes % 5.9 5.0 - 13.0 % 01/03/2018 8:16 AM CDT [facility] Eosinophils % 0.9 0.0 - 6.0 % 01/03/2018 8:16 AM CDT [facility] Basophils % 0.2 0.0 - 2.0 % 01/03/2018 8:16 AM CDT [facility] Immature Granulocytes 0.3 0 - 1 % 01/03/2018 8:16 AM CDT [facility] Neutrophil Absolute 4.42 2.01 - 7.14 x10E9/L 01/03/2018 8:16 AM CDT [facility] Lymphocytes Absolute 1.74 1.07 - 3.94 x10E9/L 01/03/2018 8:16 AM CDT [facility] Monocytes Absolute 0.39 0.26 - 1.07 x10E9/L 01/03/2018 8:16 AM CDT [facility] Eosinophils Absolute 0.06 0 - 0.47 x10E9/L 01/03/2018 8:16 AM CDT [facility] Basophils Absolute 0.01 0 - 0.08 x10E9/L 01/03/2018 8:16 AM CDT [facility] Immature Granulocytes Absolute 0.02 0.00 - 0.06 x10E9/L 01/03/2018 8:16 AM CDT [facility] nRBC Auto 0 /100 WBC 01/03/2018 8:16 AM CDT [facility] Blood BLOOD SPECIMEN / Unknown Venipuncture / Unknown 01/03/2018 8:11 AM CDT 01/03/2018 8:14 AM CDT Russell Sood DO LAB - HEMATOLOGY ORD ERABLES Performing Organization Address City/State/[facility] Co de Phone Number [facility] [address] [place], [place] [phone] documented in this encounter Visit Diagnoses Diagnosis Abdominal pain during in first trimester (HCC)- Primary Cyst of right ovary Other and unspecified ovarian cyst documented in this encounter Administered Medications Inactive Administered Medications - up to 3 most recent administrations Medication Order MAR Action Action Date Dose Rate Site acetaminophen (TYLENOL) tablet 1,000 mg 1,000 mg, Oral, NOW, 1 dose, On Nancy 01/03/18 at 0945 $ Given 01/03/2018 9:53 AM CDT 1,000 mg documented in this encounter Active and Recently Administered Medications Times are shown in CDT. Scheduled Medication Order 01/01/2018 01/02/2018 01/03/2018 acetaminophen (TYLENOL) tablet 1,000 mg (COMPLETED) 1,000 mg, Oral, NOW, 1 dose, On Nancy 01/03/18 at 0945 0993 ($ Given - Prov ider: Kiki Gonsales RN) documented in this encounter Care Teams Allopathic Doctor Relationship Specialty Start Date End Date Dionicio Colindres DO [address] [place] [phone] PCP - General Family Medicine 01/03/18 documented as of this encounter
--- OUTSIDE RECORDS SUMMARY | 2024-08-03 01:37 | XMS_ITS | Encounter Summary ---
Author Organization [facility] Health Address [address] [place] [address] Care Team Providers Care Vehicle Body Builder Name Role Phone Dionicio Colindres Primary Care Provider Reason for Visit * Reason Comments Refill Request Encounter Details Date Type Department Care Team (Late st Contact Info) Description 10/31/2018 Refill [facility] Neurosciences [id number] [place] [phone] [place] [id number] [address] Refill Request Social History Tobacco [...] on filedocumented in this encounter Care Teams Vehicle Body Builder Relationship Specialty Start Date End Date Dionicio Colindres DO [address] [place] [phone] PCP - General Family Medicine 01/03/18 documented as of this encounter
--- OUTSIDE RECORDS SUMMARY | 2024-08-03 01:37 | XMS_ITS | Encounter Summary ---
Author Organization [facility] Address [address] 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 with similar symptoms Encounter Details Date Type Department Care Team (Late st Contact Info) Description 10/22/2017 12:37 PM CDT - 10/22/2017 4:00 PM CDT Emergency ER at [address] [address] [place] [address] [place] [address] Chronic nonintractable headache, unspecified headache type (Primary Dx); Vision changes Discharge Disposition: Home or Self Care Social [...] Sign Reading Time Taken Comments Blood Pressure 141/98 10/22/2017 3:48 PM CDT Pulse 88 10/22/2017 3:48 PM CDT Temperature 36.9 ??C (98.4 ??F) 10/22/2017 11:56 AM C DT Respiratory Rate 18 10/22/2017 3:48 PM CDT Oxygen Saturation 98% 10/22/2017 3:48 PM CDT Inhaled Oxygen Concentration - - Weight 108.9 kg (240 lb) 10/22/2017 11:56 AM CDT Height 167.6 cm (5' 6 ) 10/22/2017 11:56 AM CDT Body Mass Index 38.74 10/22/2017 11:56 AM CDT documented in this encounter Functional [...] Instructions * Discharge Instructions* Russell Sood, - 10/22/2017 3:08 PM CDT Blurred Vision WHAT YOU NEED TO KNOW: Blurred vision is when you cannot see fine details. You may have blurred vision if you are nearsighted or farsighted and you need glasses. Blurred vision may be caused by a corneal abrasion (scratch on the cornea) or a corneal ulcer (open sore). You may have blurred vision if your eye came into contact with a chemical. A foreign body or infection may also cause blurred vision. Medical conditions,such as cataracts, glaucoma, detached retina, and nerve disorders can also cause blurred vision. Blurred vision may also be caused by a concussion or a tumor. If you have diabetes, you may develop diabetic retinopathy. Diabetic retinopathy damages the blood vessels of your retina. DISCHARGE INSTRUCTIONS: Return to the emergency department if: ?? You have weakness in an arm or leg, difficulty speaking or seeing, and a severe headache. ?? You have a fever, eye pain, or discharge. ?? You have a sudden loss of vision. Contact your healthcare provider if: ?? Your blurred vision gets worse. ?? Your blurred vision is worse in the morning. ?? You have a sudden headache or eye pain. ?? Your eye has swelling, redness, or discharge. ?? You see floaters, flashes of light, fine dots, or cobweb shapes. ?? You have questions or concerns about your condition or care. Medicines: You may need any of the following: ?? Prescription pain medicine may be given. Ask how to take this medicine safely. ?? Antibiotics help prevent or treat an eye infection caused by bacteria. It may be given as eyedrops or an ointment. ?? Take your medicine as directed. Contact your healthcare provider if you think your medicine is not helping or if you have side effects. Tell him of her if you are allergic to any medicine. Keep a list of the medicines, vitamins, and herbs you take. Include the amounts, and when and why you take them. Bring the list or the pill bottles to follow-up visits. Carry your medicine list with you in case of an emergency. Manage your blurred vision: Your healthcare provider may ask you to do any of the following: ?? Use artificial tears to keep your eye moist or to soothe your irritated eye. ?? Apply a cool compress to decrease any swelling or pain. Wet a clean washcloth with cool water and place it on your eye. Use the cool compress as often as directed. ?? Wear an eye patch as directed to protect your eye. Follow up with your healthcare provider as directed: You may need other eye exams and medicines. Write down your questions so you remember to ask them during your visits. ?? 2017 [employer] Information is for End User's use only and may not be sold, redistributed or otherwise used for commercial purposes. All illustrations and images included in CareNotes?? are the copyrighted property of [employer] or [employer]. The above information is an financial aid officer only. It is not intended as medical advice for individual conditions or treatments. Talk to your doctor, nurse or pharmacist before following any medical regimen to see if it is safe and effective for you. General Headache WHAT YOU NEED TO KNOW: Headache pain may be mild or severe. Common causes include stress, medicines, and head injuries. Sleep problems, allergies, and hormone changes can also cause a headache. You may have frequent headaches that have no clear cause. Pain may start in another part of your body and move to your head. Headache pain can also move to other parts of your body. A headache can cause other symptoms, such as nausea and vomiting. A severe headache may be a sign of a stroke or other serious problem that needs immediate treatment. DISCHARGE INSTRUCTIONS: Call 911 for any of the following: ?? You have any of the following signs of a stroke: ?? Numbness or drooping on one side of your face ?? Weakness in an arm or leg ?? Confusion or difficulty speaking ?? Dizziness, a severe headache, or vision loss Return to the emergency department if: ?? You have a headache with neck stiffness and a fever. ?? You have a constant headache and are vomiting. ?? You have severe pain that does not get better after you take pain medicine. ?? You have a headache and the pain worsens when you look into light. ?? You have a headache and vision changes, such as blurred vision. ?? You have a headache and are forgetful or confused. Contact your healthcare provider if: ?? You have a headache each day that does not get better, even after treatment. ?? You have changes in your headaches, or new symptoms that occur when you have a headache. ?? Others you live or work with also have headaches. ?? You have questions or concerns about your condition or care. Medicines: You may need any of the following: ?? Medicines may be given to prevent or treat headache pain. Do not wait until the pain is severe to take your medicine. Ask your healthcare provider how to take the medicine safely. ?? NSAIDs , such as ibuprofen, help [...] direction from your child's healthcare provider. ?? Acetaminophen decreases pain and fever. It is available without a doctor's order. Ask how much to take and how often to take it. Follow directions. Read the labels of all other medicines you are using to see if they also contain acetaminophen, or ask your doctor or pharmacist. Acetaminophen can cause liver damage if not taken correctly. Do not use more than 4 grams (4,000 milligrams) total of acetaminophen in one day. ?? Antinausea medicine may be given to calm your stomach and help prevent vomiting. ?? Take your medicine as directed. Contact your healthcare provider if you think your medicine is not helping or if you have side effects. Tell him of her if you are allergic to any medicine. Keep a list of the medicines, vitamins, and herbs you take. Include the amounts, and when and why you take them. Bring the list or the pill bottles to follow-up visits. Carry your medicine list with you in case of an emergency. Manage your symptoms: ?? Rest in a dark and quiet room. This may help decrease your pain. ?? Apply heat or ice as directed. Heat or ice may help decrease pain or muscle spasms. Apply heat or ice on the area for 20 minutes every 2 hours for as many days as directed. Your healthcare provider may recommend that you alternate heat and ice. ?? Relax your muscles to help relieve a headache. Lie down in a comfortable position and close youreyes. Relax your muscles slowly. Start at your toes and work your way up your body. A massage or warm bath may also help relax your muscles. Keep a headache record: Record the dates and times that you get headaches, and what you were doing before the headache started. Also record what you ate and drank in the 24 hours before the headache started. This might help your healthcare provider find the cause of your headaches and make a treatment plan. The record can also help you avoid headache triggers or manage your symptoms. Get enough sleep: You should get 8 to 10 hours of sleep each night. Create a sleep schedule. Go to bed and wake up at the same times each day. It may be helpful to do something relaxing before bed. Do not watch television right before bed. Do not smoke: Nicotine and other chemicals in cigarettes and cigars can trigger a headache or make it worse. Ask your healthcare provider for information if you currently smoke and need help to quit.E-cigarettes or smokeless tobacco still contain nicotine. Talk to your healthcare provider before you use these products. Drink liquids as directed: You may need to drink more liquid to prevent dehydration. Dehydration can cause a headache. Ask your healthcare provider how much liquid to drink each day and which liquidsare best for you. Limit caffeine and alcohol as directed: Your headaches may be triggered by caffeine or alcohol. Youmay also develop a headache if you drink caffeine regularly and suddenly stop. Eat a variety of healthy foods: Do not skip meals. Too little food can trigger a headache. Include fruits, vegetables, whole-grain breads, low-fat dairy products, beans, lean meat, and fish. Do not have trigger foods, such as chocolate and red wine. Foods that contain gluten, nitrates, MSG, or artificial sweeteners may also trigger a headache. Follow up with your healthcare provider as directed: Write down your questions so you remember to ask them during your visits. ?? 2017 [employer] Information is for End User's use only and may not be sold, redistributed or otherwise used for commercial purposes. All illustrations and images included in CareNotes?? are the copyrighted property of [employer]. or [employer]. The above information is an financial aid officer only. It is not intended as medical advice for individual conditions or treatments. Talk to your doctor, nurse or pharmacist before following any medical regimen to see if it is safe and effective for you. documented in this encounter Medications at Time of Discharge Medication Sig Dispensed Refills Start Date End Date albuterol HFA (PROVENTIL;VENTOLIN;LA OAIR) 108 (90 BASE) MCG/ACT inhaler Inhale 1 (one) puff by mouth 2 times daily amitriptyline (ELAVIL) 10 MG tablet Take 10 mg by mouth at bedtime 02/04/2017 buPROPion (WELLBUTRIN) 75 MG tablet Take 150 mg by mouth 3 times daily. butalbital-acetaminoph en-caffeine (FIORICET) 50-325-40 MG tablet TAKE [...] and evening meal 11 05/11/2017 Prenat w/o M-VX-Irrxeva-FA-DHA (PNV-DHA PO) Take by mouth once daily TRINTELLIX 10 MG tabletIndications:at the same time each day Take 10 mg by mouth once daily Reasons: at the same time each day 1 05/10/2017 hydrocodone-acetaminop hen (NORCO) 7.5-325 MG tablet Take 1 Tab by mouth every 4 hours as needed for Pain. 30 Tab 0 11/10/2014 01/03/2018 oxyCODONE-acetaminophe n (PERCOCET) 7.5-325 MG tablet Take 1 Tab by mouth at bedtime. 01/03/2018 predniSONE (DELTASONE) 20 MG tablet Take 2 tablets by mouth once daily 10 tablet 10/22/2017 01/03/2018 zonisamide (ZONEGRAN) 25 MG capsule TAKE 2 CAPSULES BY MOUTH ONCE DAILY 60 capsule 11 07/20/2017 05/21/2018 documented as of this encounter ED Notes * Sandy Lynn RN - 10/22/2017 3:48 PM CDT D/c instructions reviewed with pt. Pt verbalized understanding and ambulatory to exit. * Russell Sood DO - 10/22/2017 12:57 PM CDT Provider contact with the patient: 10/22/2017 12:57 Vera Vitale [id number] [facility] History Chief Complaint Patient presents with ??? Pain Head headache since last sunday with left blurred vision with left neck pain/hx brain tumor (colloid cyst) last year with similar symptoms HPI Comments: Vera Vitale is a 32 y.o. female presenting to the ED with a chief complaint of having blurry vision in her left eye that started 5 days ago. She states that she feels like the leftside of her face is going to explode. Patient also notes that her outer left foot initially started throbbing, then stopped and throbbing began in her neck. Associated symptoms include pain in the back of the neck, pain in the back of the skull, and dizzy spells where she feels like she is going to fall over . She denies photophobia or having problems walking. Patient states that she has been taking all of her pain medications, but with no relief. Patient denies currently having a migraine. Patient reports that she had similar symptoms in February 2017. At this time, she had loss of vision inher left eye and constant migraines. 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 She reports that [facility] removed her tumor. Eye Problem The primary symptoms include blurred vision.The history is provided by the patient. This is a new problem. The current episode started more than 2 days ago. The problem occurs constantly. The problemhas been gradually worsening. The left eye is affected. She wears glasses (Doesn't normally wear them though).The patient is currently wearing glasses.The eyelid exhibits no abnormality. The color ofdischarge is none. There is no sensitivity to light.Blurred vision noted in left eye.There has been blurred vision, dizziness. There has been no discharge, no photophobia, no eye redness, no nausea, no vomiting, no headaches. Past Medical History: Diagnosis Date ??? Arthritis ??? Bipolar 1 disorder ??? Depressive disorder, not elsewhere classified ??? Generalized anxiety disorder ??? GERD (gastroesophageal reflux disease) ??? Migraine ??? Overweight, obesity and other hyperalimentation ??? Polycystic ovaries ??? Pure hypercholesterolemia ??? Rash ??? Skin problem ??? Tension headache ??? Trichomonas 2006 treated Past Surgical History: [...] for congestion, ear pain and sore throat. Left sided facial pain Pain in the back of the skull Eyes: Positive for blurred vision. Negative for photophobia, pain, discharge and redness. Respiratory: Negative. Negative for cough, shortness of breath and wheezing. Cardiovascular: Negative. Negative for chest pain and leg swelling. Gastrointestinal: Negative. Negative for abdominal pain, blood in stool, constipation, diarrhea, heartburn, nausea and vomiting. Genitourinary: Negative. Negative for dysuria and frequency. Musculoskeletal: Positive for neck pain (throbbing in the back of the neck). Negative for back painand myalgias. Skin: Negative. Negative for rash. Neurological: Positive for dizziness. Negative for tremors, focal weakness, seizures, loss of consciousness and headaches. Endo/Heme/Allergies: Negative. Does not bruise/bleed easily. Psychiatric/Behavioral: Negative. The patient is not nervous/anxious. All other systems reviewed and are negative. Physical Exam BP (!) 169/115 Pulse 100 Temp 98.4 ??F Resp 18 Ht 1.676 m (5' 6 ) Wt 108.9 kg (240 lb) SpO2 97% BMI 38.74 kg/m2 Physical Exam Constitutional: She is oriented [...] exhibits no distension. There is no tenderness. Musculoskeletal: Normal range [...] Normal sensation Left lower extremity Normal sensation Coordination: Normal finger to nose Gait: stance, stride and arm swing appear normal Skin: Skin is warm and dry. No rash noted. She is not diaphoretic. No erythema. Psychiatric: She has a normal mood and affect. Her behavior is normal. Judgment and thought contentnormal. Nursing note and vitals reviewed. Medications Current Outpatient Prescriptions Medication Sig Dispense Refill ??? predniSONE (DELTASONE) 20 MG tablet Take 2 tablets by mouth once daily 10 tablet 0 ??? lsrpqzhprl-loewwhtsqnlxl-oyebrrkw (FIORICET) 50-325-40 MG tablet TAKE 1 TABLET BY MOUTH EVERY 4HOURS NEEDED FOR HEADACHE 30 tablet 5 ??? zonisamide (ZONEGRAN) 25 MG capsule TAKE 2 CAPSULES BY MOUTH ONCE DAILY 60 capsule 11 ??? TRINTELLIX 10 MG tablet 10 tablets 1 ??? metFORMIN (GLUCOPHAGE) 500 MG tablet 500 tablets 2 times daily with morning and evening meal 11 ??? L-Methylfolate (DEPLIN) 7.5 MG Take 7.5 tablets by mouth ??? Prenat w/o K-KS-Cefzzah-FA-DHA (PNV-DHA PO) Take by mouth once daily ??? HYDROmorphone (DILAUDID) 4 MG tablet Take 4 mg by mouth ??? amitriptyline (ELAVIL) 10 MG tablet Take 10 mg by mouth ??? albuterol HFA (PROVENTIL;VENTOLIN;PROAIR) 108 (90 BASE) MCG/ACT inhaler Inhale 1 Puff by mouth ??? hydrocodone-acetaminophen (NORCO) 7.5-325 MG tablet Take 1 Tab by mouth every 4 hours as neededfor Pain. (Patient not taking: Reported on 03/09/2017) 30 Tab 0 ??? dicyclomine (BENTYL) 10 MG capsule Take 10 mg by mouth 3 times daily. ??? buPROPion (WELLBUTRIN) 75 MG tablet Take 150 mg by mouth 3 times daily. ??? oxyCODONE-acetaminophen (PERCOCET) 7.5-325 MG tablet Take 1 Tab by mouth at bedtime. Procedures Procedures ECG Interpretation ECG Interpretation Lab Interpretation Oxygen Saturation Interpretation The oxygen saturation level is: 100%. The patient was on Room Air for the saturation measurement. Measurement frequency: Continuous. Oxygen saturation interpretation is Normal. Intervention(s) used: None. Hospital Encounter on 10/22/17 CBC W AUTO DIFFERENTIAL Result Value Ref Range WBC 11.4 (H) 4.4 - 10.7 x10E9/L WBC Corrected x10E9/L RBC 5.54 (H) 3.80 - 5.20 x10E12/L Hemoglobin 15.7 (H) 12.0 - 15.6 gm/dL Hematocrit 45.9 (H) 35.9 - 45.5 % MCV 82.9 80.7 - 98.3 fl MCH 28.3 26.7 - 34.0 pg MCHC 34.2 30.8 - 35.9 gm/dL Plt Ct 368 153 - 416 x10E9/L RDW-CV 13.2 12.1 - 14.9 % MPV 8.4 (L) 9.4 - 12.9 fl Neutro 68.3 44.0 - 73.0 % Lymph 25.0 20.0 - 43.0 % [place] 6.0 5.0 - 13.0 % Eos 0.2 0.0 - 6.0 % Baso 0.2 0.0 - 2.0 % Immature Grans 0.3 0 - 1 % Neutro Abs 7.81 (H) 2.01 - 7.14 x10E9/L Lymph Abs 2.85 1.07 - 3.94 x10E9/L [place] Abs 0.68 0.26 - 1.07 x10E9/L Eosin Abs 0.02 0 - 0.47 x10E9/L Baso Abs 0.02 0 - 0.08 x10E9/L Immature Grans (Abs) 0.03 0.00 - 0.06 x10E9/L NRBC Auto 0 /100 WBC COMPREHENSIVE METABOLIC PANEL Result Value Ref Range Glucose 95 74 - 106 mg/dL Sodium 140 136 - 145 mmol/L Potassium 3.5 3.5 - 5.1 mmol/L Chloride 109 (H) 98 - 107 mmol/L CO2 24 22 - 31 mmol/L Calcium 9.3 8.5 - 10.1 mg/dL Anion Gap 7 (L) 8 - 16 mmol/L BUN 11 7 - 21 mg/dL Creatinine 1.00 0.50 - 1.30 mg/dL Alkaline Phosphatase 128 (H) 38 - 126 U/L ALT/SGPT 25 13 - 61 U/L AST/SGOT 13 5 - 40 U/L Protein Total 8.3 (H) 6.4 - 8.2 gm/dL Albumin 4.1 3.4 - 5.0 gm/dL Bili Total 0.2 0.2 - 1.0 mg/dL eGFR MDRD >60 >60 mL/min/1.73m2 eGFR MDRD AFR AMR >60 >60 mL/min/1.73m2 ERYTHROCYTE SEDIMENTATION RATE Result Value Ref Range Sedimentation Rate, Automated 24 (H) 0 - 20 MM/HR C-REACTIVE PROTEIN Result Value Ref Range CRP 0.47 (H) <0.30 mg/dL URINALYSIS ROUTINE W/REFLEX TO CULTURE Result Value Ref Range Color UA Yellow Straw, Yellow Clarity UA Slt Cloudy (Abnormal) Clear Glucose UA Negative Negative Bili UA Negative Negative Ketone UA Negative Negative Specific Bypro UA 1.026 1.005 - 1.030 Blood UA Negative Negative pH UA 6.0 5.0 - 8.0 pH Protein UA 1+ (Abnormal) Negative Urobilinogen UA Negative Negative mg/dL Nitrite UA Negative Negative Leukocyte UA 1+ (Abnormal) Negative Urine Microscopy Urine microscopy to follow Reflex Status Culture to follow URINALYSIS MICROSCOPIC ONLY W/REFLEX CULTURE Result Value Ref Range Reflex Status Culture to follow RBC UA 0-5 0-5, None Seen # /hpf WBC UA 0-5 0-5, None Seen # /hpf Bacteria UA Trace (Abnormal) None Seen Squamous epithelial cells 11-20 (Abnormal) None Seen, 0-2, 3-5 /hpf Mucus 1+ /LPF HCG URINE QUALITATIVE - POINT OF CARE (IP) Result Value Ref Range HCG Qual Urine Negative Negative QC Verified Yes Yes TYPE + SCREEN PANEL Result Value Ref Range ABO Patient Type B Rh Patient Type Positive Antibody Screen Negative CT ANGIO NECK HEAD W WO CONTRAST (CTA for STROKE) Final Result EXAMINATION: 1. Computed tomography angiography (CTA) of [...] stenoses identified in the head or neck. CT HEAD NON CONTRAST Final Result EXAMINATION: [...] left lateral ventricle. This may be postsurgical. Progress Notes 12:59 PM: Initial Plan: Will order CT Head, CT Angio Neck Head, and labs. Patient will be given Tylenol, Reglan, Benadryl, and Omnipaque. Patient agrees with plan. Will reassess. Plan is subject to change throughout the pt's time in the ER. 2:51 PM: Rechecked on patient - patient notes no change in symptoms. Measured the patient's intraocular pressure: 16 and 17 in the right eye; 16 and 14 in the left eye 2:58 PM: Measured patient's visual acuity. Patient's vision improved with the wearing of her glasses. She states that this comes and goes since the surgery. Patient visual acuity is 20/50 bilateral; 20/50 in the right eye; and 20/70 in left eye distance without correction. With correction 20/30 bilaterally; 20/30 in the right eye; and 20/40 in the left eye. 3:02 PM: Patient reports that all these issues have chronically been occurring since her surgery. Patient notes that she does not wear her glasses. 3:11 PM Rechecked pt -patient resting comfortably and feeling [...] instructions. Vitals prior to discharge: Blood pressure 141/98, pulse 88, temperature 98.4 ??F, resp. rate 18, height 1.676 m (5' 6 ), weight 108.9 kg (240 lb), SpO2 98 %, not currently . ED Course ED Course Medical Decision Making I have reviewed the: Previous Chart, Nursing Notes, Vitals. I have interpreted the following results: Labs, CT Scans and Oxygen Saturation. Symptoms improved. Patient notes that she intermittently gets these symptoms since her surgery. Vision changes improved when the patient wears her corrective lens. This is likely contributing to her chronic headaches. CT/CTA negative. Given Neuro and Ophtho follow up. Orders Placed This Encounter ??? CULTURE URINE ??? CT HEAD NON CONTRAST ??? CT ANGIO NECK HEAD W WO CONTRAST (CTA for STROKE) ??? CBC W AUTO DIFFERENTIAL ??? COMPREHENSIVE METABOLIC PANEL ??? ERYTHROCYTE SEDIMENTATION RATE ??? C-REACTIVE PROTEIN ??? URINALYSIS ROUTINE W/REFLEX TO CULTURE ??? URINALYSIS MICROSCOPIC ONLY W/REFLEX CULTURE ??? HCG URINE QUALITATIVE - POINT OF CARE (IP) ??? DISCONTD: 0.9% NaCl injection 3 mL ??? DISCONTD: 0.9% NaCl injection 3 mL ??? acetaminophen (TYLENOL) tablet 1,000 mg ??? metoclopramide (REGLAN) injection 10 mg ??? diphenhydrAMINE (BENADRYL) injection 25 mg ??? 0.9% NaCl IV Bolus ??? DISCONTD: tetracaine 0.5% 0.5 % ophthalmic solution 1 drop ??? diphenhydrAMINE (BENADRYL) injection ADS Med ??? DISCONTD: *Hold/Avoid Medication ??? DISCONTD: iohexol (OMNIPAQUE 350) contrast ??? 0.9% NaCl injection 0-10 mL ??? 0.9% NaCl IV Flush Bag ??? predniSONE (DELTASONE) 20 MG tablet Clinical Impression Final diagnoses: Vision changes Chronic nonintractable headache, unspecified headache type (Primary) Vitals prior to discharge: Blood pressure 141/98, pulse 88, temperature 98.4 ??F, resp. rate 18, height 1.676 m (5' 6 ), weight 108.9 kg (240 lb), SpO2 98 %, not currently . New Medications: Discharge Medication List as of 10/22/2017 3:09 PM START taking these medications Details predniSONE (DELTASONE) 20 MG tablet Disp-10 tablet, R-0, Take 2 tablets by mouth once daily, Print I have advised the patient to follow-up with: Hilda Eden, RADIUS GRINDER-DIRECTOR OF SECURITY [address] [facility] [address] [facility] [address] Call in 1 day headache and vision change, If symptoms worsen return to the emergency department Arnel Sorensen MD [address] [facility] [address] [facility] [address] Call in 1 day headache and vision change, If symptoms worsen return to the emergency department Nora Michaels MD [address] [facility] [address] [facility] [phone] Call in 1 day headache and vision change, If symptoms worsen return to the emergency department Disposition: Discharged By signing my name below, I, Dimple Gee, attest that this documentation has been prepared under the direction and in the presence of Dr. Sood. Electronically Signed: Devika Paredes. 10/22/2017 9:49 PM I, Dr. Sood, personally performed the services described in this documentation. All medical recordentries made by the scribe were at my direction and in my presence. I have reviewed the chart and discharge instructions and agree that the record reflects my personal performance and is accurate andcomplete. Barrie, 10/22/2017 9:49 PM * Celestina Melissa RN - 10/22/2017 12:51 PM CDT Pt reports L sided headache and L sided neck pain with blurred vision since Sunday. Pt reports similar symptoms before when she had a brain tumor. Reports they removed it. Pt denies N/V. She denies fever. She states she has been taking pain medication and muscle relaxer's without relief. * Mary Rayo, RADIUS GRINDER-DIRECTOR OF SECURITY - 10/22/2017 11:56 AM CDT Provider contact with the patient 11:56 AM 10/22/2017 RCE Note History of present illness: Vera Vitale is a 32 y.o. female that presents to the emergency roomwith complaints of left sided headache, left sided neck ache and blurred vision that all began on Sunday. Pain is explosive and comes in random spurts, overall seems to be progressive. She last had this pain in February of 2017 in which was found a brain tumor that was excised at [facility] soon after diagnosis. This pain is the same as then but is slightly worse. She is not having any trouble walking or using her hands. She has tried Fioricet and muscle relaxers but they have done nothing for her pain. Neurologist Dr. Iglesias; unsure name of Neurosurgeon. Physical Exam Constitutional: She is oriented to person, place, and time and well-developed, well-nourished, and in no distress. No distress. Cardiovascular: Normal rate. Pulmonary/Chest: Effort normal. No respiratory distress. Musculoskeletal: Normal range of motion. Neurological: She is alert and oriented to person, place, and time. GCS score is 15. Skin: Skin is warm and dry. She is not diaphoretic. Nursing note and vitals reviewed. Physical exam is limited by the patient being fully dressed and in a sitting position Complete vital signs reviewed: Blood pressure (!) 169/115, pulse 100, temperature 98.4 ??F, resp. rate 18, height 1.676 m (5' 6 ), weight 108.9 kg (240 lb), SpO2 97 %, not currently . Diagnostic tests ordered: Orders Placed This Encounter ??? CBC W AUTO DIFFERENTIAL ??? COMPREHENSIVE METABOLIC PANEL ??? AND Linked Order Group ??? 0.9% NaCl injection 3 mL ??? 0.9% NaCl injection 3 mL ??? acetaminophen (TYLENOL) tablet 1,000 mg Based on the Medical Screening Exam performed and diagnostic tests at this time: Patient to be transferred to the main ED for evaluation by ED Provider. Mary Rayo APRN ([place]) DIRECTOR OF SECURITY documented in this encounter Plan of Treatment Not on file documented as of this encounter Procedures Procedure Name Priority Date/Time Associated Diagnosis Comments CT ANGIO BRAIN AND NECK STAT 10/22/2017 2:32 PM CDT Vision changes CT HEAD WO CONTRAST STAT 10/22/2017 2 :31 PM CDT Vision changes HCG URINE QUALITATIVE - POINT OF CARE STAT 10/22/2017 1:46 PM CDT TYPE + SCREEN PANEL STAT 10/22/2017 1 :33 PM CDT URINE MICROSCOPIC ONLY REFLEX TO CULTURE STAT 10/22/2017 1:14 PM CDT URINALYSIS REFLEX MICROSCOPIC REFLEX CULTURE STAT 10/22/2017 1:14 PM CDT CULTURE URINE STAT 10/22/2017 1:14 PM CDT C-REACTIVE PROTEIN Add on 10/22/2017 12 :10 PM CDT ERYTHROCYTE SEDIMENTATION RATE Add on 10/22/2017 12:10 PM CDT CBC W AUTO DIFFERENTIAL STAT 10/22/2017 12:10 PM CDT COMPREHENSIVE METABOLIC PANEL STAT 10/22/2017 12:10 PM CDT documented in this encounter Results * CT ANGIO NECK HEAD W WO CONTRAST (CTA for STROKE) (10/22/2017 2:32 PM CDT) Anatomical Region Laterality Modality Head Computed [...] HEAD NON CONTRAST (10/22/2017 2:31 PM CDT) Anatomical Region Laterality Modality Head Computed [...] OF CARE (IP) (10/22/2017 1:46 PM CDT) HCG Qual Urine Negative Negative [facility] POCT TESTING QC Verified Yes Yes [facility] POC T TESTING Urine URINE / Unknown 10/22/2017 1 :46 PM CDT Russell Sood DO LAB - POINT OF CARE ORDERABLES Performing Organization Address City/[facility]/ZIP Co de Phone Number [facility] PO[facility] TESTING [address] [place] [address] * TYPE + SCREEN PANEL (10/22/2017 1:33 PM CDT) ABO B 10/22/2017 2:22 PM CDT [facility] Rh Type Positive 10/22/2017 2:22 PM CDT [facility] Comment:History checked. Antibody Screen Negative 10/22/2017 2:22 PM CDT [facility] Blood Bank BLOOD SPECIMEN / Unknown Venipuncture / Unknown 10/22/2017 1:33 PM CDT 10/22/2017 1:36 PM CDT Russell Sood DO LAB - BLOOD BANK ORD ERABLES Performing Organization Address City/[facility]/ZIP Co de Phone Number [facility] [address] [place] [address] * CULTURE URINE (10/22/2017 1:14 PM CDT) Culture Urine 10,000-50,000 CFU/mL urogenital stephanie BRYANT 10/23/2017 3:46 PM CDT [facility] Urine URINE SPECIMEN OBTAINED BY CLEAN CATCH PROCEDURE / Unknown Collection / Unknown 10/22/2017 1:14 PM CDT 10/22/2017 1:36 PM CDT Russell Sood DO LAB - MICROBIOLOGY O RDERABLES [facility] MICROBIOLOGY [address] [place] [address], [facility] [phone] * (ABNORMAL) URINALYSIS MICROSCOPIC ONLY W/REFLEX CULTURE (10/22/2017 1:14 PM CDT) Pathologist [facility] Reflex Status Culture to follow 10/22/2017 1:43 PM CDT [facility] RBC UA 0-5 0-5, None Seen # /hpf 10/22/2017 1:43 PM CDT [facility] WBC UA 0-5 0-5, None Seen # /hpf 10/22/2017 1:43 PM CDT [facility] Bacteria UA Trace(A) None Seen 10/22/2017 1:43 PM CDT [facility] Squamous Epithelial Cells 11-20(A) None Seen, 0-2, 3-5 /hpf 10/22/2017 1:43 PM CDT [facility] Mucus UA 1+ /LPF 10/22/2017 1:43 PM CDT [facility] Urine URINE SPECIMEN OBTAINED BY CLEAN CATCH PROCEDURE / Unknown Collection / Unknown 10/22/2017 1:14 PM CDT 10/22/2017 1:36 PM CDT Narrative [facility] - 10/22/2017 1:43 PM CDT Russell Sood DO LAB - URINALYSIS ORD ERABLES [facility] [address] [place] [address] * (ABNORMAL) URINALYSIS ROUTINE W/REFLEX TO CULTURE (10/22/2017 1:14 PM CDT) Pathologist [facility] Color UA Yellow Straw, Yellow 10/22/2017 1:43 PM CDT [facility] Clarity UA Slt Cloudy(A) Clear 10/22/2017 1:43 PM CDT [facility] Glucose UA Negative Negative 10/22/2017 1:43 PM CDT [facility] Bilirubin UA Negative Negative 10/22/2017 1:43 PM CDT [facility] Ketone UA Negative Negative 10/22/2017 1:43 PM CDT [facility] Specific Bypro UA 1.026 1.005 - 1.030 10/22/2017 1:43 PM CDT [facility] Blood UA Negative Negative 10/22/2017 1:43 PM CDT [facility] pH UA 6.0 5.0 - 8.0 pH 10/22/2017 1:43 PM CDT [facility] Protein UA 1+(A) Negative 10/22/2017 1:43 PM CDT [facility] Urobilinogen UA Negative Negative mg/dL 10/22/2017 1:43 PM CDT [facility] Nitrite UA Negative Negative 10/22/2017 1:43 PM CDT [facility] Leukocyte UA 1+(A) Negative 10/22/2017 1:43 PM CDT [facility] Urine Microscopy Urine microscopy to follow 10/22/2017 1:43 PM CDT [facility] Reflex Status Culture to follow 10/22/2017 1:43 PM CDT [facility] Urine URINE SPECIMEN OBTAINED BY CLEAN CATCH PROCEDURE / Unknown Collection / Unknown 10/22/2017 1:14 PM CDT 10/22/2017 1:36 PM CDT Narrative [facility] - 10/22/2017 1:43 PM CDT Russell Sood DO LAB - URINALYSIS ORD ERABLES [facility] [address] [place] [address] * (ABNORMAL) C-REACTIVE PROTEIN (10/22/2017 12:10 PM CDT) C-Reactive Protein 0.47(H) <0.30 mg/dL 10/22/2017 1:42 PM CDT [facility] Blood BLOOD SPECIMEN / Unknown Venipuncture / Unknown 10/22/2017 12:10 PM CDT 10/22/2017 1:30 PM CDT Russell Sood DO LAB - CHEMISTRY ORDBrett L[place] Performing Organization Address [facility]/ZIP Co de Phone Number [facility] [address] [place], [place] [id number] * (ABNORMAL) ERYTHROCYTE SEDIMENTATION RATE (10/22/2017 12:10 PM CDT) Pathologist [facility] Erythrocyte Sedimentation Rate Automated 24(H) 0 - 20 MM/HR 10/22/2017 1:31 PM CDT [facility] Blood BLOOD SPECIMEN / Unknown Venipuncture / Unknown 10/22/2017 12:10 PM CDT 10/22/2017 12:19 PM CDT Russell Sood DO LAB - HEMATOLOGY ORD STEVE Performing Organization Address [facility]/ZIP Co de Phone Number [facility] [address] [place] [phone] * (ABNORMAL) COMPREHENSIVE METABOLIC PANEL (10/22/2017 12:10 PM CDT) Glucose 95 74 - 106 mg/dL 10/22/2017 12:35 PM CDT [facility] Sodium 140 136 - 145 mmol/L 10/22/2017 12:35 PM CDT [facility] Potassium 3.5 3.5 - 5.1 mmol/L 10/22/2017 12:35 PM CDT [facility] Chloride 109(H) 98 - 107 mmol/L 10/22/2017 12:35 PM CDT [facility] CO2 24 22 - 31 mmol/L 10/22/2017 12:35 PM CDT [facility] Calcium 9.3 8.5 - 10.1 mg/dL 10/22/2017 12:35 PM CDT [facility] Anion Gap 7(L) 8 - 16 mmol/L 10/22/2017 12:35 PM CDT [facility] BUN 11 7 - 21 mg/dL 10/22/2017 12:35 PM CDT [facility] Creatinine 1.00 0.50 - 1.30 mg/dL 10/22/2017 12:35 PM CDT [facility] Alkaline Phosphatase 128(H) 38 - 126 U/L 10/22/2017 12:35 PM CDT [facility] ALT 25 13 - 61 U/L 10/22/2017 12:35 PM CDT [facility] AST 13 5 - 40 U/L 10/22/2017 12:35 PM CDT [facility] Protein Total 8.3(H) 6.4 - 8.2 gm/dL 10/22/2017 12:35 PM CDT [facility] Albumin 4.1 3.4 - 5.0 gm/dL 10/22/2017 12:35 PM CDT [facility] Bilirubin Total 0.2 0.2 - 1.0 mg/dL 10/22/2017 12:35 PM CDT [facility] eGFR by MDRD >60 >60 mL/min/1.7 3m2 10/22/2017 12:35 PM CDT [facility] eGFR by MDRD >60 >60 mL/min/1.7 3m2 10/22/2017 12:35 PM CDT [facility] Blood BLOOD SPECIMEN / Unknown Venipuncture / Unknown 10/22/2017 12:10 PM CDT 10/22/2017 12:19 PM CDT Mary Rayo RADIUS GRINDER-DIRECTOR OF SECURITY LAB - CHEMIS TRY ORDERABLES Performing Organization Address City/State/[facility] Co de Phone Number [facility] [address] [place] [address] * (ABNORMAL) CBC W AUTO DIFFERENTIAL (10/22/2017 12:10 PM CDT) WBC 11.4(H) 4.4 - 10.7 x10E9/L 10/22/2017 12:24 PM CDT [facility] WBC Corrected x10E9/L 10/22/2017 12:24 PM CDT [facility] RBC 5.54(H) 3.80 - 5.20 x10E12/L 10/22/2017 12:24 PM CDT [facility] Hemoglobin 15.7(H) 12.0 - 15.6 gm/dL 10/22/2017 12:24 PM CDT [facility] Hematocrit 45.9(H) 35.9 - 45.5 % 10/22/2017 12:24 PM CDT [facility] MCV 82.9 80.7 - 98.3 fl 10/22/2017 12:24 PM CDT [facility] MCH 28.3 26.7 - 34.0 pg 10/22/2017 12:24 PM [facility] MCHC 34.2 30.8 - 35.9 gm/dL 10/22/2017 12:24 PM [facility] Platelet Count 368 153 - 416 x10E9/L 10/22/2017 12:24 PM [facility] RDW-CV 13.2 12.1 - 14.9 % 10/22/2017 12:24 PM [facility] MPV 8.4(L) 9.4 - 12.9 fl 10/22/2017 12:24 PM [facility] Neutrophils % 68.3 44.0 - 73.0 % 10/22/2017 12:24 PM [facility] Lymphocytes % 25.0 20.0 - 43.0 % 10/22/2017 12:24 PM [facility] Monocytes % 6.0 5.0 - 13.0 % 10/22/2017 12:24 PM [facility] Eosinophils % 0.2 0.0 - 6.0 % 10/22/2017 12:24 PM [facility] Basophils % 0.2 0.0 - 2.0 % 10/22/2017 12:24 PM [facility] Immature Granulocytes 0.3 0 - 1 % 10/22/2017 12:24 PM [facility] Neutrophil Absolute 7.81(H) 2.01 - 7.14 x10E9/L 10/22/2017 12:24 PM [facility] Lymphocytes Absolute 2.85 1.07 - 3.94 x10E9/L 10/22/2017 12:24 PM [facility] Monocytes Absolute 0.68 0.26 - 1.07 x10E9/L 10/22/2017 12:24 PM [facility] Eosinophils Absolute 0.02 0 - 0.47 x10E9/L 10/22/2017 12:24 PM [facility] Basophils Absolute 0.02 0 - 0.08 x10E9/L 10/22/2017 12:24 PM [facility] Immature Granulocytes Absolute 0.03 0.00 - 0.06 x10E9/L 10/22/2017 12:24 PM CDT [facility] nRBC Auto 0 /100 WBC 10/22/2017 12:24 PM CDT [facility] Blood BLOOD SPECIMEN / Unknown Venipuncture / Unknown 10/22/2017 12:10 PM CDT 10/22/2017 12:19 PM CDT Mary Jayna Rayo RADIUS GRINDER-DIRECTOR OF SECURITY LAB - HEMATO LOGY ORDERABLES Performing Organization Address City/State/[facility] Co de Phone Number [facility] [address] [place] [address] documented in this encounter Visit Diagnoses Diagnosis Chronic nonintractable headache, unspecified headache type- Primary Vision changes Unspecified visual disturbance documented in this encounter Administered Medications Inactive Administered Medications - up to 3 most recent administrations Medication Order MAR Action Action Date Dose Rate Site *Hold/Avoid Medication EVERY 12 HOURS (08 and 20), 6 doses, First dose on Sun10/22/17 at 1400, Last dose on Sun10/24/17 at 2000, Please place medication(s) named below on MAR Hold. See Tip Sheet for instructions. 0.9% NaCl injection 0-10 mL 0-10 mL, Intracatheter, ONCE PRN, Other, Contrast flush, 1 dose, Starting on Sun10/22/17 at 1346, Until Sun10/22/17 at 1410, For administration with contrast. $ Given 10/22/2017 2:10 PM CDT 10 mL 0.9% NaCl injection 3 mL 3 mL, Intracatheter, EVERY 8 HOURS, First dose on Sun10/22/17 at 1400, Until Discontinued 0.9% NaCl injection 3 mL 3 mL, Intracatheter, PRN, Other, peripheral line flush, Starting on Sun10/22/17 at 1201, Until Sun10/22/17 at 1700, Flush after each use and blood draws. 0.9% NaCl IV Bolus 1,000 mL, at 983.61 mL/hr, Administer over 61 Minutes, NOW, 1 dose, On Sun10/22/17 at 1315 $ New Bag/Syringe 10/22/2017 1:41 PM CDT 1,000 mL 983.61 mL/hr 0.9% NaCl IV Flush Bag 0-50 mL, Intracatheter, ONCE PRN, Contrast flush, 1 dose, Starting on Sun10/22/17 at 1346, Until Sun10/22/17 at 1410, For administration with contrast $ Given 10/22/2017 2:10 PM CDT 50 mL acetaminophen (TYLENOL) tablet 1,000 mg 1,000 mg, Oral, NOW, 1 dose, On Sun10/22/17 at 1215 $ Given 10/22/2017 1:02 PM CDT 1,000 mg diphenhydrAMINE (BENADRYL) injection 25 mg 25 mg, Intravenous, NOW, 1 dose, On Sun10/22/17 at 1315, Max intravenous rate = 25 mg/min $ Given 10/22/2017 1:41 PM CDT 25 mg diphenhydrAMINE (BENADRYL) injection ADS Med 1 dose, Starting on Sun10/22/17 at 1311, Until Sun10/22/17 at 1341, Sandy Lynn : cabinet override iohexol (OMNIPAQUE 350) contrast Intravenous, CONTRAST ONCE, Starting on Sun10/22/17 at 1346, Until Sun10/22/17 at 1700 $ Given - Contrast 10/22/2017 2:09 PM CDT 100 mL metoclopramide (REGLAN) injection 10 mg 10 mg, Intravenous, NOW, 1 dose, On Sun10/22/17 at 1315 $ Given 10/22/2017 1:41 PM CDT 10 mg documented in this encounter Active and Recently Administered Medications Due to Daylight Saving Time, this section may contain times in both FRAUD MANAGER and CDT. Scheduled Medication Order 10/20/2017 10/21/2017 10/22/2017 *Hold/Avoid Medication EVERY 12 HOURS (08 and 20), 6 doses, First dose on Sun10/22/17 at 1400, Last dose on Sun10/24/17 at 2000, Please place medication(s) named below on MAR Hold. See Tip Sheet for instructions. 1400 (Due) 0.9% NaCl injection 3 mL(Linked Group 1) 3 mL, Intracatheter, EVERY 8 HOURS, First dose on Sun10/22/17 at 1400, Until Discontinued 1400 (Due) 0.9% NaCl IV Bolus (COMPLETED) 1,000 mL, at 983.61 mL/hr, Administer over 61 Minutes, NOW, 1 dose, On Sun10/22/17 at 1315 1341 ($ New Bag/Syri nge - Provider: Sandy Lynn, RN)1442 (Due: Stopped - Provider: Sandy Lynn RN) acetaminophen (TYLENOL) tablet 1,000 mg (COMPLETED) 1,000 mg, Oral, NOW, 1 dose, On Sun10/22/17 at 1215 1302 ($ Given - Prov ider: Sandy Lynn, JACK) diphenhydrAMINE (BENADRYL) injection 25 mg (COMPLETED) 25 mg, Intravenous, NOW, 1 dose, On Sun10/22/17 at 1315, Max intravenous rate = 25 mg/min 1341 ($ Given - Prov ider: Sandy Lynn RN) iohexol (OMNIPAQUE 350) contrast Intravenous, CONTRAST ONCE, Starting on Sun10/22/17 at 1346, Until Sun10/22/17 at 1700 1409 ($ Given - Cont rast - Provider: Lilly Radford, (R)) metoclopramide (REGLAN) injection 10 mg (COMPLETED) 10 mg, Intravenous, NOW, 1 dose, On Sun10/22/17 at 1315 1341 ($ Given - Prov ider: Sandy Lynn RN) tetracaine 0.5% 0.5 % ophthalmic solution 1 drop 1 drop, Each Eye, NOW, 1 dose, On Sun10/22/17 at 1315 1315 (Due) PRN Medication Order 10/20/2017 10/21/2017 10/22/2017 0.9% NaCl injection 0-10 mL (COMPLETED) 0-10 mL, Intracatheter, ONCE PRN, Other, Contrast flush, 1 dose, Starting on Sun10/22/17 at 1346, Until Sun10/22/17 at 1410, For administration with contrast. 1410 ($ Given - Prov ider: Lilly Radford, RT(R)) 0.9% NaCl injection 3 mL(Linked Group 1) 3 mL, Intracatheter, PRN, Other, peripheral line flush, Starting on Sun10/22/17 at 1201, Until Sun10/22/17 at 1700, Flush after each use and blood draws. 0.9% NaCl IV Flush Bag (COMPLETED) 0-50 mL, Intracatheter, ONCE PRN, Contrast flush, 1 dose, Starting on Sun10/22/17 at 1346, Until Sun10/22/17 at 1410, For administration with contrast 1410 ($ Given - Prov ider: Lilly Radford, RT(R)) Linked Groups Order Group 1: SALINE LOCK, INSERT AND MAINTAIN (COMPLETED) Routine, CONTINUOUS, Starting on Sun10/22/17 at 1215, Until Specified, New collection And 0.9% NaCl injection 3 mLJump to med 3 mL, Intracatheter, EVERY 8 HOURS, First dose on Sun10/22/17 at 1400, Until Discontinued And 0.9% NaCl injection 3 mLJump to med 3 mL, Intracatheter, PRN, Other, peripheral line flush, Starting on Sun10/22/17 at 1201, Until Sun10/22/17 at 1700, Flush after each use and blood draws. documented in this encounter Care Teams Hot Tar Roofer Helper Relationship Specialty Start Date End Date Hilda Eden APRN-AUSTIN [address] [place] [phone] PCP - General Nurse Practitioner 11/05/14 01/02/18 documented as of this encounter
--- OUTSIDE RECORDS SUMMARY | 2024-08-03 01:37 | XMS_ITS | Encounter Summary ---
Author Organization [facility] Address [address] [place] [address] Care Team Providers Care [place]. Representative Name Role Phone Dionicio Colindres Primary Care Provider [phone] Reason for Visit * Reason Comments Refill Request Encounter Details Date Type Department Care Team (Late st Contact Info) Description 05/21/2018 Refill [facility] [address] [place] [phone] [place] [id number] [address] Refill Request Social History Tobacco [...] encounter Miscellaneous Notes * Telephone Encounter - Nati Canchola - 05/22/2018 1:11 PM CDT Vera Vitale Allergies Allergen Reactions ??? Adhesive Sensitivity Can tolerate paper tape ??? Control Pill Form [Other] Requested Prescriptions Pending Prescriptions Disp Refills ??? zonisamide (ZONEGRAN) 25 MG capsule [Pharmacy Med Name: ZONISAMIDE 25 MG CAPSULE] 60 capsule 3 Sig: TAKE 2 CAPSULES BY MOUTH ONCE DAILY LAST FILL: 07/20/17 LAST OV: 06/14/17 documented in this encounter Plan of Treatment Not on file documented as of this encounter Visit Diagnoses Not on filedocumented in this encounter Care Teams U.S. Representative Relationship Specialty Start Date End Date Dionicio Colindres DO [address] [place] [phone] PCP - General Family Medicine 01/03/18 documented as of this encounter
--- OUTSIDE RECORDS SUMMARY | 2024-08-03 01:37 | XMS_ITS | Encounter Summary ---
Author Organization [facility] Address [address] [place] [address] Care Team Providers Care Steel Placer Name Role Phone Dionicio Colindres Primary Care Provider Reason for Visit * Reason Comments Refill Request Encounter Details Date Type Department Care Team (Late st Contact Info) Description 09/04/2018 Refill [facility] [address] [place] [phone] [place] [id number] [address] Refill Request Social History Tobacco [...] encounter Miscellaneous Notes * Telephone Encounter - Deric Arriaga - 09/04/2018 12:16 PM CST Vera Vitale Allergies Allergen Reactions ??? Adhesive Sensitivity Can tolerate paper tape ??? Control Pill Form [Other] Requested Prescriptions Pending Prescriptions Disp Refills ??? zonisamide (ZONEGRAN) 25 MG capsule [Pharmacy Med Name: ZONISAMIDE 25 MG CAPSULE] 60 capsule 0 Sig: TAKE 2 CAPSULES BY MOUTH ONCE DAILY LAST FILL: LAST OV: 06/14/17 DRIER TENDER documented in this encounter Plan of Treatment Not on file documented as of this encounter Visit Diagnoses Not on filedocumented in this encounter Care Teams Steel Placer Relationship Specialty Start Date End Date Dionicio Colindres DO [address] [place] [phone] PCP - General Family Medicine 01/03/18 documented as of this encounter
--- OUTSIDE RECORDS SUMMARY | 2024-08-03 01:37 | XMS_ITS | Encounter Summary ---
Author Organization [facility] Health Address [address] [address] Care Team Providers Care Anesthesia Technician Name Role Phone Hilda Eden JOHNATHAN-PAPER CONE MAKER Primary Care Provider [phone] Encounter Details Date Type Department Care Team (Latest Contact Info) Description 04/12/2017 Hospital Outpatient Visit Historic [facility] [address] [place] [phone] Kyra Cano APRN-PAPER CONE MAKER [address] [facility] [address] DIV [place] [phone] Discharge Disposition: Home or Self Care Social [...] on filedocumented in this encounter Care Teams Anesthesia Technician Relationship Specialty Start Date End Date Hilda Eden APRN-AUSTIN [address] [place] [phone] PCP - General Nurse Practitioner 11/05/14 01/02/18 documented as of this encounter
--- OUTSIDE RECORDS SUMMARY | 2024-08-03 01:37 | XMS_ITS | Encounter Summary ---
Author Organization [facility] Address [address] [place] [address] Care Team Providers Care Belt Notcher Name Role Phone Dionicio Colindres Primary Care Provider Reason for Visit * Reason Comments Refill Request Encounter Details Date Type Department Care Team (Late st Contact Info) Description 08/26/2018 Refill [facility] Neurosciences [address] [place] [phone] [place] [id number] [address] Refill Request Social History Tobacco [...] on filedocumented in this encounter Care Teams Belt Notcher Relationship Specialty Start Date End Date Dionicio Colindres DO [address] [place] [phone] PCP - General Family Medicine 01/03/18 documented as of this encounter
--- OUTSIDE RECORDS SUMMARY | 2024-08-03 01:37 | XMS_ITS | Encounter Summary ---
Author Organization [facility] Health Address 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
--- OUTSIDE RECORDS SUMMARY | 2024-08-03 01:37 | XMS_ITS | Encounter Summary ---
Author Organization [facility] Health Address [address] [place] [address] Care Team Providers Care Commercial Installer Name Role Phone Colindres, Dionicio Arnel Primary Care Provider Reason for Visit * Reason Onset Date Comments Future Appointment 04/16/2018 Encounter Details Date Type Department Care Team (Late st Contact Info) Description 04/16/2018 Telephone [facility] [address] [place] [address] Steffi Henao MD [address] [place] [address] Future Appointment Social History Tobacco Use Types Packs/Day [...] encounter Miscellaneous Notes * Telephone Encounter - Karen Traore - 04/16/2018 2:32 PM CDT Devin Left voicemail informing patient of 04/18 appointment @ 1:00. documented in this encounter Plan of Treatment Not on file documented as of this encounter Visit Diagnoses Not on filedocumented in this encounter Care Teams Commercial Installer Relationship Specialty Start Date End Date Dionicio Colindres DO [address] [place] [address] PCP - General Family Medicine 01/03/18 documented as of this encounter
--- OUTSIDE RECORDS SUMMARY | 2024-08-03 01:37 | XMS_ITS | Encounter Summary ---
Author Organization [facility] Health Address [address] [place] [address] Care Team Providers Care Wage Adjuster Name Role Phone Hilda Eden [employer] OFFICER-FEED RESEARCH TECHNICIAN Primary Care Provider [phone] Reason for Visit * Reason Comments Refill Request Encounter Details Date Type Department Care Team (Late st Contact Info) Description 07/19/2017 Refill [facility] [id number] [id number] [place] [address] [address] Refill Request Social History Tobacco [...] encounter Miscellaneous Notes * Telephone Encounter - Delmy Montez MA - 07/19/2017 4:07 PM CST [facility] Vitale Allergies Allergen Reactions ??? Adhesive Sensitivity Can tolerate paper tape ??? Control Pill Form [Other] Requested Prescriptions Pending Prescriptions Disp Refills ??? zonisamide (ZONEGRAN) 25 MG capsule [Pharmacy Med Name: ZONISAMIDE 25 MG CAPSULE] 60 capsule Sig: TAKE 2 CAPSULES BY MOUTH ONCE DAILY LAST FILL: 06/14/17 LAST OV: 06/14/17 ER SOAK documented in this encounter Plan of Treatment Not on file documented as of this encounter Visit Diagnoses Not on filedocumented in this encounter Care Teams Wage Adjuster Relationship Specialty Start Date End Date Hilda Eden APRN-[place] [address] [place] [phone] PCP - General Nurse Practitioner 11/05/14 01/02/18 documented as of this encounter
--- OUTSIDE RECORDS SUMMARY | 2024-08-03 01:37 | XMS_ITS | Encounter Summary ---
Author Organization [facility] Address [address] [place] [address] Care Team Providers Care Pressure Dispatcher Name Role Phone Dionicio Colindres Primary Care Provider [phone] Reason for Visit * Reason Comments TINGLING Pt c/o left face tin gling and a bad headache it felt like something exploded in the left occipital lobe and left neck. LKW is 2100 08/08/19 Encounter Details Date Type Department Care Team (Late st Contact Info) Description 08/09/2019 9:10 AM STAFFING BRANCH MANAGER - 08/09/2019 3:10 PM STAFFING BRANCH MANAGER Emergency ER at [address] [id number] [place] [id number] [place] [address] Atypical migraine Discharge Disposition: Home or Self Care Social [...] Sign Reading Time Taken Comments Blood Pressure 121/97 08/09/2019 2:56 PM STAFFING BRANCH MANAGER Pulse 99 08/09/2019 2:56 PM STAFFING BRANCH MANAGER Temperature 36.7 ??C (98.1 ??F) 08/09/2019 9:51 AM CS T Respiratory Rate 16 08/09/2019 2:56 PM STAFFING BRANCH MANAGER Oxygen Saturation 96% 08/09/2019 2:56 PM STAFFING BRANCH MANAGER Inhaled Oxygen Concentration - - Weight - - Height - - Body Mass Index - - documented in this encounter Functional Status Functional [...] this encounter Discharge Instructions * Discharge Instructions* Sirena Hickman MD - 08/09/2019 2:30 PM STAFFING BRANCH MANAGER +++++RETURN TO ED IF YOU DEVELOP SUDDEN WORSENING PAIN, REPEATED VOMITING, DIZZINESS/LIGHTHEADEDNESS, NUMBNESS/TINGLING, SEVERE HEADACHE, WEAKNESS OF ARM/LEG OR ANY OTHER CONCERNS+++ FING BRANCH MANAGER * Attachments The following attachments cannot be sent through Care Everywhere. * Migraine Headache (AfterCare(R) Instructions(ER/ED)) ([place]ankan) documented in this encounter Medications at Time [...] mouth once daily 30 tablet 2 08/09/2019 metFORMIN (GLUCOPHAGE) 500 MG tablet Take 500 mg by mouth 2 times daily with morning and evening meal 11 05/11/2017 Prenat w/o J-IN-Wxwfpwc-FA-DHA (PNV-DHA PO) Take by mouth once daily [...] capsule 09/04/2018 documented as of this encounter Consult Notes * Camelia Lazo RN - 08/09/2019 3:10 PM CSTAssociated Order(s): IP CONSULT TO MAJOR DONOR COORDINATOR CODE STROKE SUMMARY Room Number (IF IN HOUSE USE IN HOUSE CODE STROKE ORDER SET): RM25 ED Arrival Date and Time: 08/09/2019 9:10 AM Code Stroke Paged Time: 0907 Neurologist Contacted: Stephen Horton Stroke Activated by EMS: No - Personal Transportation Admission weight: Blood Sugar: Recent Labs Component Name 08/09/19 0923 [id number] Recent Labs Component Name 08/09/19 0923 01/03/18 0811 10/22/17 1210 GLUCOSE 89 94 95 Point of Care Testing Glucose Bedside (mg/dL): 93 mg/dL (08/09/19 0915) Glucose Bedside Interfaced/Wireless (mg/dL): 93 (mg/dL) (08/09/19 09) Vital Signs- Vitals: 08/09/19 1301 08/09/19 1332 08/09/19 1357 08/09/19 1456 BP: 146/91 (!) 150/105 121/97 Pulse: 80 90 92 99 Resp: 18 16 20 16 Temp: SpO2: 97% 99% 96% 96% ED POC Creatinine: Recent Labs Component Name 08/09/19922 CREATPOCT 0.80 Cr: Recent Labs Component Name 08/09/19 0923 01/03/18 0811 10/22/17 1210 CREATININE 0.81 0.52 1.00 INR: Recent Labs Component Name 08/09/19 0924 03/09/17 1621 02/13/10 0619 INR 1.0 0.9 1.1 Imaging: Ct Angio Head Neck Stroke Result Date: 08/09/2019 1. Widely patent carotid and vertebral arteries. CT angiogram brain: The distal internal carotid arteries are patent. Both middle cerebral arteries are patent. There is no stenosis, occlusion or aneurysm. The anterior cerebral arteries are patent. No stenosis, occlusion or aneurysm. The posterior cerebral arteries are patent. There is slight chronic narrowing in the right P2 segment which is uncha nged since last year. Neither posterior communicating artery is seen which is usually an incidentalat the patient's age. The distal vertebral arteries are patent and join to form a normal basilar artery. No abnormal brain parenchymal enhancement. The major intracranial venous sinuses enhance normally. IMPRESSION: 1. No acute intracranial vascular findings. 2. No change since 2018. Reading Radiologist: Niurka Ewing MD on 08/09/2019 at 9:[address] Brain - Stroke Result Date: 08/09/2019 1. No acute findings. 2. Chronic focal encephalomalacia in the left frontal- parietal vertex with accompanying chronic craniotomy changes Reading Radiologist: Niurka Ewing MD on 08/09/2019 at 9:23 AM NIHSS: NIH Total: 2 (08/09/19 0912) Chief Complaint Patient presents with ??? TINGLING Pt c/o left face tingling and a bad headache it felt like something exploded in the left occipital lobe and left neck. LKW is 2100 08/08/19 Summary: 34 year old female presented to the ED complaining of nausea, L occipital headache and L neck pain. Patient also had tingling in left face. Code stroke was activated in ED triage. Patient stated the last time she had comparable headache was two years prior - work up revealed colloid cyst which was resected. NIHSS 2 for slight facial droop and mild sensory changes in face. CT/CTA negativefor hemorrhage, LVO, or acute changes. Headache treated successfully with Toradol. Neurology contacted and agreed with no tPA. Patient discharged with instructions to follow up with her Neurologist (Dr. Iglesias) as soon as possible. Alteplase Administered?: No IF NO - Contraindication: Low Suspicion for Acute Ischemic Stroke Large Vessel Occlusion or Severe Stenosis suspected?: No Nursing Swallow Screener: Total Score of questionnaire (6 or greater did not advance to the water test): Total Row: 1 (08/09/19 1131) EKG Completed: NO ED Neuro Checks: YES Disposition: Home or Self Care (ED Discharged) Thank you for allowing me to participate in the care of Vera Vitale. Please contact me if further assistance is needed. Camelia Lazo, BSN, CNRN, SCRN Time Piece Repairer, [facility] Office: [phone] Ascom: [phone] Email: [email or web address] FING BRANCH MANAGER documented in this encounter ED Notes * Mary Casanova RN - 08/09/2019 3:00 PM CST Discharge Instructions given to pt. Medications and follow up care discussed. Pt. Verbalized understanding with no further questions at this time. Pt. Ambulatory from ER to leave by self transportation.. FING BRANCH MANAGER * Mary Casanova RN - 08/09/2019 2:30 PM CST Pt able to keep down food. ER MD informed. FING BRANCH MANAGER Mary Borja RN - 08/09/2019 2:00 PM CST Pt meal tray delivered and pt able to eat Mary Collins RN - 08/09/2019 12:57 PM CST RN made ER MD aware that pt blood pressure is elevated. No new orders received. FING BRANCH MANAGER Mary Borja RN - 08/09/2019 12:39 PM CST Diet order placed per ER MD. Pt given menu FING BRANCH MANAGER Darcy Calderon - 08/09/2019 11:44 AM CST CODE STROKE ACTIVATION: 0907am Activation Time: 0907am Method of Arrival: Walk In EMS District: EMS Prenotification: Yes or No Arrival Time: 0857am Neurology Call Back Time: Dr. Robb called back at 0925am If applicable: Code Stroke Transfer Considered: Yes or No Access Line Contact Time: Access Line Contact Name: Exit Time: If applicable: Code Stroke Cancelled Time: Code Stroke Cancellation MD: FING BRANCH MANAGER * Mary Casanova RN - 08/09/2019 11:30 AM CST Neuro check complete and pt medicated per OCT. FING BRANCH MANAGER Mary Borja RN - 08/09/2019 10:50 AM CST Pt medicated per MAR. FING BRANCH MANAGER * Mary Casanova RN - 08/09/2019 10:30 AM CST Neuor check complete. Urine specimen collected and sent off. FING BRANCH MANAGER * Mary Casanova RN - 08/09/2019 9:48 AM CST Pt medicated per MAR. FING BRANCH MANAGER * Sirena Hickman MD - 08/09/2019 9:15 AM CST ED Events Date/Time Event User Comments 08/09/19 0907 First Provider Evaluation XIOMY ZIMMER [id number] [facility] EMERGENCY DEPARTMENT History Chief Complaint Patient presents with ??? TINGLING Pt c/o left face tingling and a bad headache it felt like something exploded in the left occipital lobe and left neck. LKW is 2100 08/08/19 Vera Vitale is a 34 year old female with history of HTN presenting to the ED with chief complaint of left sided headache since last night. Patient has not been taking her Lisinopril for the past month. Associated symptoms include left facial numbness/tinging and nausea. Her headache is rated 8/10 in severity and radiates to the left side of her neck. She denies fall, vomiting, arm weakness, ataxia, or leg/arm paresthesias. Patient notes chronic blurry vision in her left eye that has been present since her colloid cyst resection 2 years ago. PCP Dionicio Colindres, DO Past Medical History: Diagnosis Date ??? Arthritis [...] resource strain: Not on file ??? Food insecurity: Worry: Not on file Inability: Not on file ??? Transportation needs: Medical: Not on file Non-medical: Not on file Tobacco Use ??? Smoking status: Former Smoker Packs/day: 1.00 Years: 4.00 Pack years: 4.00 Types: Cigarettes Last attempt to quit: 06/13/2014 Years since quittin.1 ??? Smokeless tobacco: Never Used Substance and Sexual Activity ??? Alcohol use: Yes Comment: occasionally ??? Drug use: Yes Types: Marijuana Comment: last week ??? Sexual activity: Yes Lifestyle ??? Physical activity: Days per week: Not on file Minutes per session: Not on file ??? Stress: Not on file Relationships ??? Social connections: Talks on phone: Not on file Gets together: Not on file Attends scientology service: Not on file Active member of club or organization: Not on file Attends meetings of clubs or organizations: Not on file Relationship status: Not on file ??? Intimate partner violence: Fear of current or ex partner: Not on file Emotionally abused: Not on file Physically abused: Not on file Forced sexual activity: Not on file Other Topics Concern ??? Not on file Social History Narrative ??? Not on file Review of Systems Review of Systems Constitutional: Negative for chills and fever. Eyes: Positive for blurred vision. Negative for discharge. Respiratory: Negative for cough. Cardiovascular: Negative for chest pain. Gastrointestinal: Positive for nausea. Negative for abdominal pain and vomiting. Genitourinary: Negative for dysuria. Musculoskeletal: Negative for back pain. Skin: Negative for rash. Neurological: Positive for tingling (facial) and headaches. Negative for focal weakness. All other systems reviewed and are negative. Physical Exam BP (!) 150/105 Pulse 92 Temp 98.1 ??F (36.7 ??C) (Oral) Resp 20 LMP 07/30/2019 (Approximate) SpO2 96% ? Unknown Physical Exam Constitutional: She is oriented to person, place, and time. She appears well- developed and well-nourished. No distress. HENT: Head: Normocephalic. Eyes: Pupils are equal, round, and reactive to light. No scleral icterus. Neck: Neck supple. Cardiovascular: Normal rate and regular rhythm. Exam reveals no gallop. No murmur heard. Pulmonary/Chest: Effort normal. She has no wheezes. She has no rales. She exhibits no tenderness. Abdominal: She exhibits no distension and no mass. There is no tenderness. There is no rebound. Musculoskeletal: She exhibits no edema. Neurological: She is alert and oriented to person, place, and time. No cranial nerve deficit. She exhibits normal muscle tone. Aox3. Has mild left nasolabial flattening. Decreased sensation to left face(to light touch). Normallateral gaze. No pronator drift, no UE,LE weakness. Sensation intact except on left side of face. Speech is clear. Tongue is midline. NIH Stroke Scale NIH Stroke Scale Score: Level of Consciousness 0= Alert, LOC Questions:0= Answers both, LOC Commands:0= Performs both tasks, Best Gaze: 0= Normal, Visual: 0= Normal, Facial Palsy: 0= Normal, Motor Arm-Left: 0= Normal, Motor Arm-Right: 0= Normal, Motor Leg-Left: 0= Normal, Motor Leg-Right: 0= Normal, Limb Ataxia: 0= Absent, Sensory: 1= mild to moderate sensory loss Best Language: 0= Normal, Dysarthria: 0= Normal, Extinction and Inattention: 0= Normal, NIH Score: 1 Skin: Skin is warm and dry. She is not diaphoretic. Psychiatric: She has a normal mood and affect. Vitals reviewed. Medications Current Outpatient Medications Medication Sig Dispense [...] by mouth 3 times daily 1 ??? rluakklnwp-kinnmmwjfxemj-eyapytjp (FIORICET) 50-325-40 MG tablet TAKE 1 TABLET [...] mouth once daily 30 tablet 2 ??? metFORMIN (GLUCOPHAGE) 500 MG tablet Take 500 mg by mouth 2 times daily with morning and evening meal 11 ??? Prenat w/o R-BL-Kfofycn-FA-DHA (PNV-DHA PO) Take by mouth once daily [...] ONCE DAILY 60 capsule 0 Procedures Procedures Lab Interpretation Oxygen Saturation Interpretation The oxygen saturation level is: 97%. The patient was on Room Air for the saturation measurement. Measurement frequency: Spot Check. Oxygen saturation interpretation is Normal. Intervention(s) used: None. Hospital Encounter on 08/09/19 CBC W AUTO DIFFERENTIAL Result Value Ref Range WBC 7.6 4.4 - 10.7 x10E9/L WBC Corrected RBC 5.62 (H) 3.80 - 5.20 x10E12/L Hemoglobin 13.5 12.0 - 15.6 gm/dL Hematocrit 43.3 35.9 - 45.5 % MCV 77.0 (L) 80.7 - 98.3 fl MCH 24.0 (L) 26.7 - 34.0 pg MCHC 31.2 30.8 - 35.9 gm/dL Platelet Count 373 153 - 416 x10E9/L RDW-CV 14.1 12.1 - 14.9 % MPV 8.4 (L) 9.4 - 12.9 fl Neutrophils % 61.3 44.0 - 73.0 % Lymphocytes % 30.4 20.0 - 43.0 % Monocytes % 5.8 5.0 - 13.0 % Eosinophils % 1.6 0.0 - 6.0 % Basophils % 0.5 0.0 - 2.0 % Immature Granulocytes 0.4 0 - 1 % Neutrophil Absolute 4.63 2.01 - 7.14 x10E9/L Lymphocytes Absolute 2.30 1.07 - 3.94 x10E9/L Monocytes Absolute 0.44 0.26 - 1.07 x10E9/L Eosinophils Absolute 0.12 0 - 0.47 x10E9/L Basophils Absolute 0.04 0 - 0.08 x10E9/L Immature Granulocytes Absolute 0.03 0.00 - 0.06 x10E9/L nRBC Auto 0 /100 WBC COMPREHENSIVE METABOLIC PANEL Result Value Ref Range Glucose 89 70 - 105 mg/dL Sodium 136 136 - 145 mmol/L Potassium 3.9 3.5 - 4.7 mmol/L Chloride 101 98 - 107 mmol/L CO2 26 23 - 31 mmol/L Calcium 9.7 8.4 - 10.4 mg/dL Anion Gap 9 8 - 16 mmol/L BUN 9 7 - 18.7 mg/dL Creatinine 0.81 0.57 - 1.11 mg/dL Alkaline Phosphatase 122 40 - 150 U/L ALT 33 0 - 61 U/L AST 19 5 - 34 U/L Protein Total 8.3 6.4 - 8.3 gm/dL Albumin 4.7 3.5 - 5.2 gm/dL Bilirubin Total 0.2 0.2 - 1.0 mg/dL eGFR by MDRD >60 >60 mL/min/1.73m2 eGFR by MDRD >60 >60 mL/min/1.73m2 PT-INR Result Value Ref Range PT 13.0 12.1 - 14.8 sec INR 1.0 0.9 - 1.1 TROPONIN I Result Value Ref Range Troponin I <0.010 <0.038 ng/mL URINALYSIS REFLEX MICROSCOPIC REFLEX CULTURE Result Value Ref Range Color UA Straw Straw, Yellow Clarity UA Slt Cloudy (Abnormal) Clear Glucose UA Negative Negative Bilirubin UA Negative Negative Ketone UA Negative Negative Specific [place] UA 1.025 1.005 - 1.030 Blood UA Negative Negative pH UA 7.0 5.0 - 8.0 pH Protein UA Negative Negative Urobilinogen UA Negative Negative mg/dL Nitrite UA Negative Negative Leukocyte UA Negative Negative Urine Microscopy Urine microscopy not indicated Reflex Status Culture not indicated HCG BETA BLOOD QUANTITATIVE Result Value Ref Range hCG Quantitative <1.20 mIU/mL HCG BETA BLOOD QUANTITATIVE Result Value Ref Range hCG Quantitative <1.20 mIU/mL CREATININE BLOOD - POINT OF CARE (IP) Result Value Ref Range Creatinine POCT 0.80 0.7 - 1.2 mg/dL QC Verified Yes Yes GLUCOSE - POINT OF CARE Result Value Ref Range Glucose WB/POC 93 70 - 106 mg/dL Specimen Type Venous CT ANGIO HEAD NECK STROKE Final Result CT angiogram head and neck with contrast DATE: 08/09/2019. INDICATION: Left-sided weakness and facial numbness. History of resected brain mass 2016. TECHNIQUE: Multidetector enhanced CT angiography through the [...] Ewing MD on 08/09/2019 at 9:[address] BRAIN - Stroke Final Result CT brain, noncontrast DATE: 08/09/2019 INDICATION: Left [...] Ewing MD on 08/09/2019 at 9:23 AM Progress Notes 9:07 AM: Saw and evaluated patient. Answered all patient's questions and concerns. 9:23 PM: I discussed with Dr. Robb (Neurology) all pertinent aspects of the case including HPI details, physical exam findings, testing completed, medications given, the patient's current condition,my clinical impression. Dr. Robb agrees with no tPA. 11:10 AM: I re-evaluated the patient???s medical condition, comfort, and provided a care update. Patient's headache is improving, now rated 6/10 after Toradol. She states that Imitrex usually helps and she would like to try it at this time. She also notes that she has not taken her Zonisamide for the past couple of days. 2:01 PM: Rechecked patient. Her headache is gone and she just finished her lunch. She denies tingling or chest pain. I advised her to follow up with her neurologist (Dr. Iglesias). Will give antihypertensive medications. 2:32 PM: Rechecked patient - Patient is resting comfortably and feeling better. I discussed the results of diagnostic studies, my clinical impression, and the plan for further treatment with the patient. Patient agrees with plan and discharge at this time, all questions addressed. At this present time, a medical screening exam has been completed. It is determined that the patient does not have an emergency medical condition and is stable for discharge. I have given the patient instructions regarding her diagnosis, expectations, follow up, and return precautions. I explained to the patient that emergent conditions may arise and to return to the ER for new, worsening, or any persistent conditions. I've explained the importance of following up with PCP as instructed. The patient verbalized understanding of the discharge instructions. ED Course ED Course as of Aug 09 1433 Sat Aug 09, 2019 0922 Rads: ct brain unchanged from prior. No acute ich. [AA] 1236 Patient states her headache is significantly improved and is 3/10 at this time. She was able to get some sleep. She feels hungry and would like to eat something. Launch has been ordered. She feels ready to go home after she eats. [AA] ED Course User Index [AA] Sirena Hickman MD Clinical Impressions as of Aug 09 1433 Atypical migraine Medical Decision Making I have reviewed the: Previous Chart, Nursing Notes, Vitals. I have interpreted the following results: Labs, CT Scans (brain, CTA) and Oxygen Saturation. I have discussed the case with Neurology (Dr. Robb). DDX: migraine, CVA, TIA, ICH, cerebral edema, Orders Placed This Encounter ??? CT BRAIN - Stroke ??? CT ANGIO HEAD NECK STROKE ??? CBC W AUTO DIFFERENTIAL ??? COMPREHENSIVE METABOLIC PANEL ??? PT-INR ??? TROPONIN I ??? URINALYSIS REFLEX MICROSCOPIC REFLEX CULTURE ??? HCG BETA BLOOD QUANTITATIVE ??? HCG BETA BLOOD QUANTITATIVE ??? CONSULT TO MAJOR DONOR COORDINATOR ??? CREATININE BLOOD - POINT OF CARE (IP) ??? AND Linked Order Group ??? 0.9% NaCl injection 3 mL ??? 0.9% NaCl injection 1-10 mL ??? *Hold/Avoid Medication ??? iopamidol (ISOVUE 370) 76 % contrast ??? 0.9% NaCl injection 0-10 mL ??? 0.9% NaCl IV Flush Bag ??? hydrALAZINE (APRESOLINE) injection 10 mg ??? prochlorperazine (COMPAZINE) injection 10 mg ??? diphenhydrAMINE (BENADRYL) injection 25 mg ??? ketorolac (TORADOL) injection 30 mg ??? SUMAtriptan (IMITREX) injection 6 mg ??? zonisamide (ZONEGRAN) capsule 25 mg ??? lisinopril (PRINIVIL; ZESTRIL) 10 MG tablet Vitals prior to discharge: Blood pressure (!) 150/105, pulse 92, temperature 98.1 ??F (36.7 ??C), temperature source Oral, resp. rate 20, last menstrual period 07/30/2019, SpO2 96 %, unknown if currently . New Medications: New Prescriptions LISINOPRIL (PRINIVIL; ZESTRIL) 10 MG TABLET Take 1 tablet by mouth once daily I have advised the patient to follow-up with: [place] [id number] [place] [facility] [address] Schedule an appointment as soon as possible for a visit Without Fail Disposition: Discharged By signing my name below, I, Xiomy Zimmer, attest that this documentation has been prepared underthe direction and in the presence of Dr. Hickman. Electronically Signed: Devika Zamudio. 08/09/2019 2:33 PM IDr. Hickman personally performed the services described in this documentation. All medical record entries made by the scribe were at my direction and in my presence. I have reviewed the chart and agree that the record reflects my personal performance and is accurate and complete. Dr. Hickman, 08/09/20192:33 PM Follow-up Information Follow-up With Details Why Contact Info Raulito Iglesias MD Schedule an appointment as soon as possible for a visit Without Fail [id number] [place] [id number] User Date/Time Sirena Hickman MD Sat Aug 09, 2019 2:29 PM FING BRANCH MANAGER * Mary Casanova RN - 08/09/2019 9:15 AM CST IV placed. Blood specimens collected and handed to lab personal in CT. NIH scale completed at 0912. FING BRANCH MANAGER * Guzman Lyons RN - 08/09/2019 9:10 AM CST Bed: 25 Expected date: Expected time: Means of arrival: Comments: Code stroke FING BRANCH MANAGER * Mary Casanova RN - 08/09/2019 9:10 AM CST Pt presents to the ED after experience what she states was, a blast on the L side of my head. States this occurred at 2130 last night. Pt states she has unbearable ANAND/ States this has occurred previously x2 years ago which lead to a diagnosis of a brain tumor. Pt had surgery to remove tumors. Pt states L side of her face is tingling but does not radiate. Pt states since brain surgery she has had blurry vision in L eye. Pt states she is nauseous but no vomiting. Pt has hx of HTN and has not taken mediction for over a month. Pt is ambulatory. Pt is diaphoretic. A&Ox4. FING BRANCH MANAGER * Matthieu Ball RN - 08/09/2019 9:00 AM CST Guzman QUIGLEY called to begin code stroke. FING BRANCH MANAGER documented in this encounter Plan of Treatment Not on file documented as of this encounter Procedures Procedure Name Priority Date/Time Associated Diagnosis Comments URINALYSIS REFLEX MICROSCOPIC REFLEX CULTURE STAT 08/09/2019 10:38 [address] STAFFING BRANCH MA[address]GER CT ANGIO BRAIN NECK STROKE STAT 08/09/2019 9:30 AM STAFFING BRANCH MANAGER Tingling TROPONIN I STAT 08/09/2019 9:24 AM STAFFING BRANCH MANAGER PT-INR STAT 08/09/2019 9:24 AM STAFFING BRANCH MANAGER CBC W AUTO DIFFERENTIAL STAT 08/09/2019 9:24 AM STAFFING BRANCH MANAGER HCG BETA BLOOD QUANTITATIVE Add on 08/09/2019 9:24 AM STAFFING BRANCH MANAGER CREATININE BLOOD - POINT OF CARE (IP) Routine 08/09/2019 9:23 AM STAFFING BRANCH MANAGER GLUCOSE - POINT OF CARE Routine 08/09/2019 9:23 AM STAFFING BRANCH MANAGER COMPREHENSIVE METABOLIC PANEL STAT 08/09/2019 9:23 AM STAFFING BRANCH MANAGER HCG BETA BLOOD QUANTITATIVE Add on 08/09/2019 9:23 [address]ING BRANCH [address] CT BRAIN STROKE STAT 08/09/2019 9:16 AM STAFFING BRANCH MANAGER Tingling documented in this encounter Results * (ABNORMAL) URINALYSIS REFLEX MICROSCOPIC REFLEX CULTURE (08/09/2019 10:38 AM STAFFING BRANCH MANAGER) Color UA Straw Straw, Yellow 08/09/2019 10:52 AM STAFFING BRANCH MANAGER [facility] Clarity UA Slt Cloudy(A) Clear 08/09/2019 10:52 AM STAFFING BRANCH MANAGER [facility] Glucose UA Negative Negative 08/09/2019 10:52 AM STAFFING BRANCH MANAGER [facility] Bilirubin UA Negative Negative 08/09/2019 10:52 AM STAFFING BRANCH MANAGER [facility] Ketone UA Negative Negative 08/09/2019 10:52 AM STAFFING BRANCH MANAGER [facility] Specific [place] UA 1.025 1.005 - 1.030 08/09/2019 10:52 AM [facility] Blood UA Negative Negative 08/09/2019 10:52 AM [facility] pH UA 7.0 5.0 - 8.0 pH 08/09/2019 10:52 AM [facility] Protein UA Negative Negative 08/09/2019 10:52 AM [facility] Urobilinogen UA Negative Negative mg/dL 08/09/2019 10:52 AM [facility] Nitrite UA Negative Negative 08/09/2019 10:52 AM [facility] Leukocyte UA Negative Negative 08/09/2019 10:52 AM [facility] Urine Microscopy Urine microscopy not indicated 08/09/2019 10:52 AM [facility] Reflex Status Culture not indicated 08/09/2019 10:52 AM [facility] Urine URINE SPECIMEN OBTAINED BY CLEAN CATCH PROCEDURE / Unknown Collection / Unknown 08/09/2019 10:38 AM STAFFING BRANCH MANAGER 08/09/2019 10:40 AM STAFFING BRANCH MANAGER Narrative [facility] - 08/09/2019 10:52 AM STAFFING BRANCH MANAGER Sirena Hickman MD LAB - URINALYSIS ORD ERABLES Performing Organization Address City/State/[facility] [facility] Co de Phone Number [facility] [address] [place] [address] * CT ANGIO HEAD NECK STROKE (08/09/2019 9:30 AM STAFFING BRANCH MANAGER) Anatomical Region Laterality Modality Head Computed Tomogra phy 08/09/2019 9:33 AM STAFFING BRANCH MANAGER Impressions 08/09/2019 9:45 AM STAFFING BRANCH MANAGER 1. ??Widely patent carotid and vertebral arteries. [...] at 9:45 AM Narrative 08/09/2019 9:45 AM STAFFING BRANCH MANAGER CT angiogram head and neck with contrast [...] AM Sirena Hickman MD CT ORDERABLES * HCG BETA BLOOD QUANTITATIVE (08/09/2019 9:24 AM STAFFING BRANCH MANAGER) hCG Quantitative <1.20 mIU/mL 08/09/20 19 10:21 AM STAFFING BRANCH MANAGER [facility] Blood BLOOD SPECIMEN / Unknown Venipuncture / Unknown 08/09/2019 9:24 AM STAFFING BRANCH MANAGER 08/09/2019 9:23 AM STAFFING BRANCH MANAGER Narrative [facility] - 08/09/2019 10:21 AM STAFFING BRANCH MANAGER ? hCG Reference Range, mIU/mL: ? Males [...] a serum FSH >20 IU/L makes unlikely. Sirena Hickman MD LAB - CHEMISTRY ELIZA LINTON Performing Organization Address [facility] de Phone Number [facility] [address] [place] [phone] * TROPONIN I (08/09/2019 9:24 AM STAFFING BRANCH MANAGER) Troponin I <0.010 <0.038 ng/mL 08/09/2019 9:45 AM STAFFING BRANCH MANAGER [facility] Blood BLOOD SPECIMEN / Unknown Venipuncture / Unknown 08/09/2019 9:24 AM STAFFING BRANCH MANAGER 08/09/2019 9:23 AM STAFFING BRANCH MANAGER Sirena Hickman MD LAB - CHEMISTRY ELIZA [facility] Performing Organization Address [facility] de Phone Number [facility] [address] [place] [phone] * PT-INR (08/09/2019 9:24 AM [facility]) Pathologist [facility] PT 13.0 12.1 - 14.8 sec 08/09/2019 9:36 AM [facility] INR 1.0 0.9 - 1.1 08/09/2019 9:36 AM [facility] Blood BLOOD SPECIMEN / Unknown Venipuncture / Unknown 08/09/2019 9:24 AM STAFFING BRANCH MANAGER 08/09/2019 9:23 AM [facility] Narrative [facility] - 08/09/2019 9:36 AM [facility] Conventional Warfarin Anticoagulant Therapy: INR Reference Range: ??2.0-3.0 Intensive Warfarin Anticoagulant Therapy: INR Reference Range: ? 2.5-3.5 Sirena Hickman MD LAB - COAGULATION OR DERABLES Performing Organization Address City/State/[facility] Co de Phone Number [facility] [address] [place] [address] * (ABNORMAL) CBC W AUTO DIFFERENTIAL (08/09/2019 9:24 AM [facility]) Pathologist [facility] WBC 7.6 4.4 - 10.7 x10E9/L 08/09/2019 9:26 AM [facility] WBC Corrected 08/09/2019 9:26 AM [facility] RBC 5.62(H) 3.80 - 5.20 x10E12/L 08/09/2019 9:26 AM [facility] Hemoglobin 13.5 12.0 - 15.6 gm/dL 08/09/2019 9:26 AM [facility] Hematocrit 43.3 35.9 - 45.5 % 08/09/2019 9:26 AM [facility] MCV 77.0(L) 80.7 - 98.3 fl 08/09/2019 9:26 AM [facility] MCH 24.0(L) 26.7 - 34.0 pg 08/09/2019 9:26 AM [facility] MCHC 31.2 30.8 - 35.9 gm/dL 08/09/2019 9:26 AM [facility] Platelet Count 373 153 - 416 x10E9/L 08/09/2019 9:26 AM [facility] RDW-CV 14.1 12.1 - 14.9 % 08/09/2019 9:26 AM [facility] MPV 8.4(L) 9.4 - 12.9 fl 08/09/2019 9:26 AM [facility] Neutrophils % 61.3 44.0 - 73.0 % 08/09/2019 9:26 AM [facility] Lymphocytes % 30.4 20.0 - 43.0 % 08/09/2019 9:26 AM [facility] Monocytes % 5.8 5.0 - 13.0 % 08/09/2019 9:26 AM [facility] Eosinophils % 1.6 0.0 - 6.0 % 08/09/2019 9:26 AM [facility] Basophils % 0.5 0.0 - 2.0 % 08/09/2019 9:26 AM [facility] Immature Granulocytes 0.4 0 - 1 % 08/09/2019 9:26 AM [facility] Neutrophil Absolute 4.63 2.01 - 7.14 x10E9/L 08/09/2019 9:26 AM [facility] Lymphocytes Absolute 2.30 1.07 - 3.94 x10E9/L 08/09/2019 9:26 AM [facility] Monocytes Absolute 0.44 0.26 - 1.07 x10E9/L 08/09/2019 9:26 AM [facility] Eosinophils Absolute 0.12 0 - 0.47 x10E9/L 08/09/2019 9:26 AM [facility] Basophils Absolute 0.04 0 - 0.08 x10E9/L 08/09/2019 9:26 AM [facility] Immature Granulocytes Absolute 0.03 0.00 - 0.06 x10E9/L 08/09/2019 9:26 AM [facility] nRBC Auto 0 /100 WBC 08/09/2019 9:26 AM [facility] Blood BLOOD SPECIMEN / Unknown Venipuncture / Unknown 08/09/2019 9:24 AM STAFFING BRANCH MANAGER 08/09/2019 9:23 AM STAFFING BRANCH MANAGER Sirena Hickman MD LAB - HEMATOLOGY ORD ERABLES [facility] [address] [place] [address] * HCG BETA BLOOD QUANTITATIVE (08/09/2019 9:23 AM STAFFING BRANCH MANAGER) hCG Quantitative <1.20 mIU/mL 08/09/20 19 11:38 AM STAFFING BRANCH MANAGER [facility] Blood BLOOD SPECIMEN / Unknown Venipuncture / Unknown 08/09/2019 9:23 AM STAFFING BRANCH MANAGER 08/09/2019 9:23 AM STAFFING BRANCH MANAGER Narrative [facility] - 08/09/2019 11:38 AM STAFFING BRANCH MANAGER ? hCG Reference Range, mIU/mL: ? Males [...] a serum FSH >20 IU/L makes unlikely. Sirena Hickman MD LAB - CHEMISTRY ELIZA LINTON Performing Organization Address [facility] de Phone Number [facility] [address] [place] [address] * CREATININE BLOOD - POINT OF CARE (IP) (08/09/2019 9:23 AM STAFFING BRANCH MANAGER) [facility] Creatinine POCT 0.80 0.7 - 1.2 mg/dL [facility] POCT TESTING QC Verified Yes Yes [facility] TEST[facility] Blood BLOOD SPECIMEN / Unknown 08/09/2019 9:23 AM STAFFING BRANCH MANAGER Sirena Hickman MD LAB - POINT OF CARE ORDERABLES Performing Organization Address [facility] Phone Number [facility] POCT TESTING [address] [place] [address] * GLUCOSE - POINT OF CARE (08/09/2019 9:23 AM STAFFING BRANCH MANAGER) [facility] Glucose WB/POC 93 70 - 106 mg/dL 08/09/2019 9:30 AM STAFFING BRANCH MANAGER [facility] Specimen Type Venous 08/09/2019 9:30 AM STAFFING BRANCH MANAGER [facility] Blood BLOOD SPECIMEN / Unknown 08/09/2019 9:23 AM STAFFING BRANCH MANAGER 08/09/2019 9:30 AM STAFFING BRANCH MANAGER Sirena Hickman MD LAB - POINT OF CARE ORDERABLES Performing Organization Address [facility] de Phone Number [facility] [address] [place] [address] * COMPREHENSIVE METABOLIC PANEL (08/09/2019 9:23 AM STAFFING BRANCH MANAGER) [facility] Glucose 89 70 - 105 mg/dL 08/09/2019 9:41 AM [facility] Sodium 136 136 - 145 mmol/L 08/09/2019 9:41 AM [facility] Potassium 3.9 3.5 - 4.7 mmol/L 08/09/2019 9:41 AM [facility] Chloride 101 98 - 107 mmol/L 08/09/2019 9:41 AM [facility] CO2 26 23 - 31 mmol/L 08/09/2019 9:41 AM [facility] Calcium 9.7 8.4 - 10.4 mg/dL 08/09/2019 9:41 AM [facility] Anion Gap 9 8 - 16 mmol/L 08/09/2019 9:41 AM [facility] BUN 9 7 - 18.7 mg/dL 08/09/2019 9:41 AM [facility] Creatinine 0.81 0.57 - 1.11 mg/dL 08/09/2019 9:41 AM [facility] Alkaline Phosphatase 122 40 - 150 U/L 08/09/2019 9:41 AM [facility] ALT 33 0 - 61 U/L 08/09/2019 9:41 AM [facility] AST 19 5 - 34 U/L 08/09/2019 9:41 AM [facility] Protein Total 8.3 6.4 - 8.3 gm/dL 08/09/2019 9:41 AM [facility] Albumin 4.7 3.5 - 5.2 gm/dL 08/09/2019 9:41 AM [facility] Bilirubin Total 0.2 0.2 - 1.0 mg/dL 08/09/2019 9:41 AM [facility] eGFR by MDRD >60 >60 mL/min/1.7 3m2 08/09/2019 9:41 AM [facility] eGFR by MDRD >60 >60 mL/min/1.7 3m2 08/09/2019 9:41 AM [facility] Blood BLOOD SPECIMEN / Unknown Venipuncture / Unknown 08/09/2019 9:23 AM STAFFING BRANCH MANAGER 08/09/2019 9:23 AM [facility] Sirena Hickman MD LAB - CHEMISTRY ELIZA LINTON [facility] Organization Address City/State/ZIP Co de Phone Number [facility] [address] [place] [address] * CT BRAIN - Stroke (08/09/2019 9:16 AM STAFFING BRANCH MANAGER) Anatomical Region Laterality Modality Head Computed Tomogra phy 08/09/2019 9:18 AM STAFFING BRANCH MANAGER Impressions 08/09/2019 9:23 AM STAFFING BRANCH MANAGER 1. ??No acute findings. 2. ??Chronic focal encephalomalacia in the left frontal-parietal vertex with accompanying chronic craniotomy changes Reading Radiologist: Niurka Ewing MD on 08/09/2019 at 9:23 AM Narrative 08/09/2019 9:23 [address]AFFING BRANCH MANAGER CT brain, noncontrast DATE: 08/09/2019 INDICATION: Left [...] 9:23 AM Sirena Hickman MD CT ORDERABLES documented in this encounter Visit Diagnoses Diagnosis Tingling Disturbance of skin sensation Atypical migraine Other forms of migraine, without mention of intractable migraine without mention of status migrainosus documented in this encounter Administered Medications Inactive Administered Medications - up to 3 most recent administrations Medication Order MAR Action Action Date Dose Rate Site *Hold/Avoid Medication EVERY 12 HOURS (08 and 20), 6 doses, First dose on 08/09/19 at 0930, Last dose on 08/11/19 at 2000, Please place medication(s) named below on MAR Hold. See Tip Sheet for instructions. 0.9% NaCl injection 0-10 mL 0-10 mL, Intracatheter, ONCE PRN, Other, Contrast flush, 1 dose, Starting on 08/09/19 at 0918, Until 08/09/19 at 0923, For administration with contrast. $ Given 08/09/2019 9:23 AM STAFFING BRANCH MANAGER 10 mL 0.9% NaCl injection 1-10 mL 1-10 mL, Intracatheter, PRN, Other, peripheral line flush, Starting on 08/09/19 at 0910, Until 08/09/19 at 1611, Flush peripheral IV catheter with 1-10 mL of normal saline before and after medications and prn to clear blood from the line or to verify patency. 0.9% NaCl injection 3 mL 3 mL, Intracatheter, EVERY 8 HOURS, First dose on 08/09/19 at 0945, Until Discontinued, Flush peripheral IV catheter with 3 mL of normal saline every 8 hours. 0.9% NaCl IV Flush Bag 0-100 mL, Intracatheter, ONCE PRN, Contrast flush, 1 dose, Starting on 08/09/19 at 0918, Until 08/09/19 at 0923, For administration with contrast $ Given 08/09/2019 9:23 AM STAFFING BRANCH MANAGER 100 mL diphenhydrAMINE (BENADRYL) injection 25 mg 25 mg, Intravenous, NOW, 1 dose, On 08/09/19 at 0930, Administer IV at a rate not exceeding 25 mg/min. Can dilute in 5-10 mL NS as needed for patient comfort. $ Given 08/09/2019 9:48 AM STAFFING BRANCH MANAGER 25 mg hydrALAZINE (APRESOLINE) injection 10 mg 10 mg, Intravenous, NOW, 1 dose, On 08/09/19 at 0930 $ Given 08/09/2019 9:50 AM STAFFING BRANCH MANAGER 10 mg iopamidol (ISOVUE 370) 76 % contrast Intravenous, CONTRAST ONCE, Starting on 08/09/19 at 0918, Until 08/09/19 at 1611 $ Given - Contrast 08/09/2019 9:23 AM STAFFING BRANCH MANAGER 100 mL ketorolac (TORADOL) injection 30 mg 30 mg, Intravenous, NOW, 1 dose, On 08/09/19 at 1045 $ Given 08/09/2019 10:50 AM STAFFING BRANCH MANAGER 30 mg prochlorperazine (COMPAZINE) injection 10 mg 10 mg, Intravenous, NOW, 1 dose, On 08/09/19 at 0930, Max intravenous rate = 5 mg/min $ Given 08/09/2019 9:52 AM STAFFING BRANCH MANAGER 10 mg SUMAtriptan (IMITREX) injection 6 mg 6 mg, Subcutaneous, NOW, 1 dose, On 08/09/19 at 1115, MAX 6 mg/dose and 12 mg/24 hr $ Given 08/09/2019 11:33 AM STAFFING BRANCH MANAGER 6 mg Abd Right Lower Quadrant zonisamide (ZONEGRAN) capsule 25 mg 25 mg, Oral, NOW, 1 dose, On 08/09/19 at 1115, Swallow whole, do not crush or chew. $ Given 08/09/2019 11:33 AM STAFFING BRANCH MANAGER 25 mg documented in this encounter Active and Recently Administered Medications Times are shown in STAFFING BRANCH MANAGER. Scheduled Medication Order 08/07/2019 08/08/2019 08/09/2019 *Hold/Avoid Medication EVERY 12 HOURS (08 and 20), 6 doses, First dose on 08/09/19 at 0930, Last dose on 08/11/19 at 2000, Please place medication(s) named below on MAR Hold. See Tip Sheet for instructions. 0930 (Due) 0.9% NaCl injection 3 mL(Linked Group 1) 3 mL, Intracatheter, EVERY 8 HOURS, First dose on 08/09/19 at 0945, Until Discontinued, Flush peripheral IV catheter with 3 mL of normal saline every 8 hours. 0945 (Due)1400 (Due) diphenhydrAMINE (BENADRYL) injection 25 mg (COMPLETED) 25 mg, Intravenous, NOW, 1 dose, On 08/09/19 at 0930, Administer IV at a rate not exceeding 25 mg/min. Can dilute in 5-10 mL NS as needed for patient comfort. 0948 ($ Given - Prov ider: Mary Casanova, JACK) hydrALAZINE (APRESOLINE) injection 10 mg (COMPLETED) 10 mg, Intravenous, NOW, 1 dose, On 08/09/19 at 0930 0950 ($ Given - Prov ider: Mary Casanova, JACK) iopamidol (ISOVUE 370) 76 % contrast Intravenous, CONTRAST ONCE, Starting on 08/09/19 at 0918, Until 08/09/19 at 1611 0923 ($ Given - Cont rast - Provider: Layne Guzmán, RT(R)CT) ketorolac (TORADOL) injection 30 mg (COMPLETED) 30 mg, Intravenous, NOW, 1 dose, On 08/09/19 at 1045 1050 ($ Given - Prov ider: Mary Casanova, JACK) prochlorperazine (COMPAZINE) injection 10 mg (COMPLETED) 10 mg, Intravenous, NOW, 1 dose, On 08/09/19 at 0930, Max intravenous rate = 5 mg/min 0952 ($ Given - Prov ider: Mary Casanova, JACK) SUMAtriptan (IMITREX) injection 6 mg (COMPLETED) 6 mg, Subcutaneous, NOW, 1 dose, On 08/09/19 at 1115, MAX 6 mg/dose and 12 mg/24 hr 1133 ($ Given - Prov ider: Mary Casanova, JACK) zonisamide (ZONEGRAN) capsule 25 mg (COMPLETED) 25 mg, Oral, NOW, 1 dose, On 08/09/19 at 1115, Swallow whole, do not crush or chew. 1133 ($ Given - Prov ider: Mary Casanova, RN) PRN Medication Order 08/07/2019 08/08/2019 08/09/2019 0.9% NaCl injection 0-10 mL (COMPLETED) 0-10 mL, Intracatheter, ONCE PRN, Other, Contrast flush, 1 dose, Starting on 08/09/19 at 0918, Until 08/09/19 at 0923, For administration with contrast. 0923 ($ Given - Prov ider: Layne Guzmán, RT(R)CT) 0.9% NaCl injection 1-10 mL(Linked Group 1) 1-10 mL, Intracatheter, PRN, Other, peripheral line flush, Starting on 08/09/19 at 0910, Until 08/09/19 at 1611, Flush peripheral IV catheter with 1-10 mL of normal saline before and after medications and prn to clear blood from the line or to verify patency. 0.9% NaCl IV Flush Bag (COMPLETED) 0-100 mL, Intracatheter, ONCE PRN, Contrast flush, 1 dose, Starting on 08/09/19 at 0918, Until 08/09/19 at 0923, For administration with contrast 0923 ($ Given - Prov ider: Layne Guzmán, RT(R)CT) Linked Groups Order Group 1: SALINE LOCK, INSERT AND MAINTAIN (CANCELED) Routine, CONTINUOUS, Starting on 08/09/19 at 0915, Until Specified, New collection And 0.9% NaCl injection 3 mLJump to med 3 mL, Intracatheter, EVERY 8 HOURS, First dose on 08/09/19 at 0945, Until Discontinued, Flush peripheral IV catheter with 3 mL of normal saline every 8 hours. And 0.9% NaCl injection 1-10 mLJump to med 1-10 mL, Intracatheter, PRN, Other, peripheral line flush, Starting on 08/09/19 at 0910, Until 08/09/19 at 1611, Flush peripheral IV catheter with 1-10 mL of normal saline before and after medications and prn to clear blood from the line or to verify patency. documented in this encounter Care Teams Pressure Dispatcher Relationship Specialty Start Date End Date Dionicio Colindres DO [address] [facility] [place] [address] PCP - General Family Medicine 01/03/18 documented as of this encounter
--- OUTSIDE RECORDS SUMMARY | 2024-08-03 01:37 | XMS_ITS | Encounter Summary ---
Author Organization [facility] Health Address [address] [place] [address] Care Team Providers Care Operations Executive Name Role Phone Hilda Eden APRN-MAIL ORDER SORTER Primary Care Provider [phone] Reason for Referral * Radiology Services - Closed Specialty Diagnoses / Procedures Referred By Reva holbrook Referred To Contact Diagnoses Abdominal pain, left upper quadrant Procedures CT ABDOMEN AND PELVIS WITH IV CONTRAST Belinda Colon MD [address] [place] [address] Referral ID Status Reason Start Date Expiration Date Visits Re quested Visits Authorized [id number] Closed 03/09/2015 09/05/2015 1 1 Reason for Visit * Radiology Services (Routine) - Closed Specialty Diagnoses / Procedures Referred By Reva holbrook Referred To Contact CT Scan Procedures IN CT ABD&PELV 1+ SECTION/REGNS [facility]ts [address] [place] [address] Scan [address] [place] [address] Referral ID Status Reason Start Date Expiration Date Visits Re quested Visits Authorized [id number] Closed 03/09/2015 09/05/2015 1 1 Encounter Details Date Type Department Care Team (Latest Contact Info) Description 03/09/2015 9:00 AM CDT - 03/09/2015 11:59 PM CDT Hospital Encounter [facility] Health Imaging Services - [place] Scan [address] [place] [address] Belinda Colon MD [address] [place] [address] Discharge Disposition: Home or Self Care Social [...] mg by mouth once daily. 06/14/2017 folic clhq-bmbrnedgvz-afqblpmcq renetta (FOLGARD) 0.8-10-0.115 MG tablet Take 1 [...] daily. 06/14/2017 documented as of this encounter Plan of Treatment Not on file documented as of this encounter Procedures Procedure Name Priority Date/Time Associated Diagnosis Comments CT ABDOMEN PELVIS W CONTRAST Routine 03/09/2015 12:58 PM CDT Abdominal pain, left upper quadrant documented in this encounter Results * CT ABDOMEN AND PELVIS WITH IV CONTRAST (03/09/2015 12:58 PM CDT) Anatomical Region Laterality Modality Abdomen, Pelvis Computed Tomogra phy 03/09/2015 1:37 PM CDT Impressions 03/09/2015 2:12 PM CDT No acute process. Edited by Nathaly Peraza on 03/09/2015 1:54 PM Narrative 03/09/2015 2:[address] ABDOMEN WITH CONTRAST CT PELVIS WITH CONTRAST Clinical Indication: Left upper quadrant pain. Technique: Axial CT images from the lung bases through the pubic symphysis were obtained following intravenous administration of Omnipaque 350 100 cc. Findings: Prior CT abdomen is available from February 07, 2010. Lung bases are clear. Oral contrast has been administered. No free air is seen. Gallbladder is absent. The liver, spleen, stomach, ??duodenum, pancreas, adrenal glands and kidneys are normal. Appendix is normal. No free fluid, inflammatory change, bowel dilatation or bowel wall thickening is seen. Procedure Note Jaime Cotton MD - 03/09/[address] CT [address] WITH CONTRAST CT PELVIS WITH CONTRAST Clinical Indication: Left upper quadrant pain. Technique: Axial CT images from the lung bases through the pubic symphysis were obtained following intravenous administration of Omnipaque 350 100 cc. Findings: Prior CT abdomen is available from February 07, 2010. Lung bases are clear. Oral contrast has been administered. No free air is seen. Gallbladder is absent. The liver, spleen, stomach, duodenum, pancreas, adrenal glands and kidneys are normal. Appendix is normal. No free fluid, inflammatory change, bowel dilatation or bowel wall thickening is seen. IMPRESSION No acute process. Edited by Nathaly Peraza on 03/09/2015 1:54 PM Belinda Colon MD CT ORDERABLES documented in this encounter Visit Diagnoses Diagnosis Abdominal pain, left upper quadrant documented in this encounter Administered Medications Inactive Administered Medications - up to 3 most recent administrations Medication Order MAR Action Action Date Dose Rate Site iohexol (OMNIPAQUE 350) contrast Intravenous, CONTRAST ONCE, Starting on 03/09/15 at 1258, Until 03/10/15 at 0143 $ Given - Contrast 03/09/2015 9:20 AM CDT 100 mL iohexol (OMNIPAQUE 350) contrast Oral, CONTRAST ONCE, Starting on 03/09/15 at 1258, Until 03/10/15 at 0143 $ Given - Contrast 03/09/2015 9:20 AM CDT 50 mL documented in this encounter Care Teams Operations Executive Relationship Specialty Start Date End Date Hilda Eden APRN-MAIL ORDER SORTER [address] [place] [address] PCP - General Nurse Practitioner 11/05/14 01/02/18 documented as of this encounter
--- OUTSIDE RECORDS SUMMARY | 2024-08-03 01:37 | XMS_ITS | Encounter Summary ---
Author Organization [facility] Health Address [address] [place] [address] Care Team Providers Care Glassware Selector Name Role Phone Dionicio Colindres Primary Care Provider Reason for Visit * Reason Comments Refill Request Encounter Details Date Type Department Care Team (Late st Contact Info) Description 10/14/2018 Refill [facility] Neurosciences [id number] [place] [phone] [place] [address] [address] Refill Request Social History Tobacco [...] on filedocumented in this encounter Care Teams Glassware Selector Relationship Specialty Start Date End Date Dionicio Colindres DO [address] [place] [id number] PCP - General Family Medicine 01/03/18 documented as of this encounter
--- OUTSIDE RECORDS SUMMARY | 2024-08-03 01:37 | XMS_ITS | Encounter Summary ---
Author Organization [facility] Health Address [address] [place] [address] Care Team Providers Care Marketing Analytics Lead Name Role Phone Hilda Eden FIELD CARE MANAGER-VP SCIENTIFIC Primary Care Provider [phone] Encounter Details Date Type Department Care Team (Latest Contact Info) Description 04/12/2017 Hospital Outpatient Visit Historic [facility] [address] OP [address] [place] [address] Discharge Disposition: Home or Self Care Social [...] Name Priority Date/Time Associated Diagnosis Comments CT HEAD WO CONTRAST Routine 04/12/2017 1 :22 PM CDT documented in this encounter Results * CT HEAD WO CONTRAST (04/12/2017 1:22 PM CDT) Anatomical Region Laterality Modality Head Other Impressions 04/12/2017 2:19 PM CDT IMPRESSION: 1. No evidence for recurrent disease. Postoperative changes in the area of resection as described above. This report was approved ??by Marla Almanza ?? on 04/12/2017 2:16 PM . I, Dr. ADAM VILLANUEVA M.D. have personally reviewed and interpreted this examination/study. This report was electronically signed by ADAM VILLANUEVA M.D. ??on 04/12/2017 2:19 PM . 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 FINDINGS: Comparison is made with a study from MR brain dated 03/01/1917, CT brain dated 03/13/2017 and MR brain dated 03/16/2017. Postoperative changes from a frontal craniotomy are seen. A hypoattenuating area along the superior aspect of the left lateral ventricular body is consistent with postsurgical changes. No residual hyperattenuation in the region of the foremen of Monro and superior third ventricle suggesting residual colloid cyst is identified. No acute intra- or extra-axial fluid collections are identified. The ventricles are of normal size, shape, and morphology. The basilar cisterns are patent. No mass effect or midline shift is seen. The perez-white matter differentiation is normal. The visualized portions of the orbits, paranasal sinuses, and mastoids appear normal. No acute fracture is identified. 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 FINDINGS: Comparison is made with a study from MR brain dated 03/01/1917,CT brain dated 03/13/2017 and MR brain dated 03/16/2017. Postoperative changes from a frontal craniotomy are seen. Ahypoattenuating area along the superior aspect of the left lateralventricular body is consistent with postsurgical changes. No residualhyperattenuation in the region of the foremen of Monro and superior third ventricle suggesting residual colloid cyst isidentified. No acute intra- or extra-axial fluid collections areidentified. The ventricles are of normal size, shape, and morphology. Thebasilar cisterns are patent. No mass effect or midline shift is seen. The perez-white matter differentiation is normal.The visualized portions of the orbits, paranasal sinuses, and mastoidsappear normal. No acute fracture is identified. IMPRESSION IMPRESSION: 1. No evidence for recurrent disease. Postoperative changes in the area ofresection as described above. This report was approved by Marla Almanza on 04/12/2017 2:16 PM . I, Dr. ADAM VILLANUEVA M.D. have personally reviewed and interpreted thisexamination/study. This report was electronically signed by ADAM VILLANUEVA M.D. on 04/12/20172:19 PM . [address] ORDERABLES documented in this encounter Visit Diagnoses Diagnosis Disorder of brain Unspecified condition of brain documented in this encounter Care Teams Marketing Analytics Lead Relationship Specialty Start Date End Date Hilda Eden APRN-CNP [address] [place] [id number] PCP - General Nurse Practitioner 11/05/14 01/02/18 documented as of this encounter
--- OUTSIDE RECORDS SUMMARY | 2024-08-03 01:37 | XMS_ITS | Encounter Summary ---
Author Organization [facility] Health Address [address] [place] [address] Care Team Providers Care Alarm Installation Technician Name Role Phone Hilda Eden APRN-RETIREMENT ASSISTANT Primary Care Provider [phone] Reason for Visit * Reason Comments Consultation Encounter Details Date Type Department Care Team (Late st Contact Info) Description 06/14/2017 12:20 PM CDT Office Visit [facility] [id number] [place] [address] [place] [phone] [place] [address] [address] Chronic migraine without aura without status migrainosus, not intractable (Primary Dx) Social History Tobacco Use Types Packs/Day Years [...] Sign Reading Time Taken Comments Blood Pressure 124/68 06/14/2017 10:13 AM CDT Pulse 72 06/14/2017 10:13 AM CDT Temperature - - Respiratory Rate 14 06/14/2017 10:13 AM CDT Oxygen Saturation - - Inhaled Oxygen Concentration - - Weight 110.7 kg (244 lb) 06/14/2017 10:13 AM CDT Height 167.6 cm (5' 6 ) 06/14/2017 10:13 AM CDT Body Mass Index 39.38 06/14/2017 10:13 AM CDT documented in this encounter Functional [...] as of this encounter Progress Notes * Raulito Iglesias MD - 06/14/2017 10:50 AM CDT Neurology Evaluation Chief Complaint: headaches. History of Present Illness: This is a 32-year-old female past medical history of depression, arthritis, bipolar 1 disorder, GERD, polycystic ovaries, and HLD who presents for evaluation of the above. She tells me that she has had headaches for the past 10 years, and in the past has tried Topamax (which she tried for 2 months), Depakote, which she was on for multiple years, amitriptyline, which she was on again for multiple years and still currently takes, Tylenol, Excedrin migraine, Percocet and even Dilaudid, all of which have not helped her headaches. She tells me that she has 30 headache days per month, they are described as a whole cephalic throbbing sensation which is associated with phono photophobia, nausea butno dizziness. They reach a 10/10 on the pain scale at their worst. The last for multiple hours at atime, but have never lasted for longer than 72 hours. She denies aura. Sleeping makes the headachesbetter, she is unaware of anything that makes them worse. 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 This is about 2 months ago, and they told her that her headaches should get better. She tells me that instead, her headaches are now different, but are not actually improved from previously. She did have a follow-up CT and MRI, which are not currently available for my review, but per the patient were unremarkable. She denies any double vision, blurry vision, shortness of breath, dysphagia, weakness, numbness, tingling, incontinence of bowel or bladder, loss of consciousness, involuntary movements, tremor, shaking, seizure-like activity, changes in gait, falls, problems with memory or clumsiness. BOTULINUM TOXIN (BoTOX) FOR MIGRAINE - CRITERIA FOR APPROVAL: 1. Looked for Medication overuse headache - Yes 2. Number of headaches - thirty headache days per month 3. 3 or more medications failed in 3 different classes - yes 4. Number of years of headaches - 10 5. Contraindications- none 6. Allergies- adhesive tape, control Past Medical History: Past Medical History: Diagnosis Date ??? Arthritis ??? Bipolar 1 disorder ??? Depressive disorder, not elsewhere classified ??? Generalized anxiety disorder ??? GERD (gastroesophageal reflux disease) ??? Migraine ??? Overweight, obesity and other hyperalimentation ??? Polycystic ovaries ??? Pure hypercholesterolemia ??? Rash ??? Skin problem ??? Tension headache ??? Trichomonas 2007 treated Medications: Outpatient Prescriptions Marked as Taking for the 06/14/17 encounter (Office Visit) with Raulito Iglesias MD Medication Sig ??? TRINTELLIX 10 MG tablet 10 tablets ??? metFORMIN (GLUCOPHAGE) 500 MG tablet 500 tablets 2 times daily with morning and evening meal ??? L-Methylfolate (DEPLIN) 7.5 MG Take 7.5 tablets by mouth ??? Prenat w/o O-MZ-Ftsjdbo-FA-DHA (PNV-DHA PO) Take by mouth once daily ??? [DISCONTINUED] HYDROmorphone (DILAUDID) 4 MG tablet Take 4 tablets by mouth every 4 hours ??? HYDROmorphone (DILAUDID) 4 MG tablet Take 4 mg by mouth ??? amitriptyline (ELAVIL) 10 MG tablet Take 10 mg by mouth ??? albuterol HFA (PROVENTIL;VENTOLIN;PROAIR) 108 (90 BASE) MCG/ACT inhaler Inhale 1 Puff by mouth Social History: Social History Social History ??? Marital status: Spouse name: N/A ??? Number of children: N/A ??? Years of education: N/A Social History Main Topics ??? Smoking status: Former Smoker Packs/day: 1.00 Years: 4.00 Types: Cigarettes Quit date: 06/13/2014 ??? Smokeless tobacco: Never Used ??? Alcohol use No ??? Drug use: No ??? Sexual activity: Yes Other Topics Concern ??? Not on file Social History Narrative Family History: Family History Problem Relation Age of Onset ??? Diabetes Father ??? Hypercholesterolemia Father ??? Hypertension Father ??? Migraine Father ??? Diabetes Maternal Grandmother ??? Diabetes Brother ??? Hypertension Mother Review of Systems: Negative except as per HPI and separately scanned clinic intake form. General Exam: VS: BP 124/68 Pulse 72 Resp 14 Ht 1.676 m (5' 6 ) Wt 110.7 kg (244 lb) BMI 39.38 kg/m2 General: Well-developed, well-nourished Neck: Normal carotid pulses, no bruits Cardiac: RRR Lungs: Clear Extremities: No edema, pulses intact Neurological Exam: Mental status: Alert and oriented x 3. Recent and remote memory are normal. Attention and concentration are normal. Speech is fluent and comprehension is intact. Fund of knowledge is good. Ocular: Disks are normal with normal posterior segments. CN II: Visual acuity is full without visual field cut. Pupils equal and reactive to light. CN III, IV, : Extraocular movements are full. CN V: Facial sensation is intact. CN VII: Normal facial strength and tone. CN VIII: Hearing is intact to confrontation. CN XI, X: Palate elevates symmetrically, uvula midline CN XI: Normal SCM and trapezius strength CN XII: Tongue midline without atrophy Motor: Strength is grade 5/5 throughout. Bulk and tone are normal. No tremor or abnormal movement seen. Sensory: Intact to light touch, pin prick and proprioception throughout. Reflexes: Biceps 2+, triceps 2+, brachioradialis 2+, knees 2+, and ankles 2+. Babinski responses are flexor bilaterally. Coordination: Normal. Gait and Station: Normal for age. Impression: chronic migraine, without aura, without status migrainosus, intractable. Plan: ?? Will give a trial of Zonegran 50 mg q.h.s. up titrated over 2 weeks as prophylactic therapy. ?? Trial of Fioricet p.r.n. as abortive therapy. ?? She will keep a headache diary. ?? Headache hygiene was discussed, including the use of caffeine, the need to stay well hydrated, the need for good sleep habits, and the avoidance of any identified trigger foods. The patient will try to see if they notice any associations between these stressors and their migraines. We discussed the role of daily prophylactic medications in the treatment of migraines, as well as abortive therapies and their appropriate use. The patient was advised on the appropriate use of resources such as the emergency department for status migrainosus. ?? A detailed discussion was had regarding the BOTOX procedure and written material was provided. The process as well as the side effects and their treatment were discussed. I also demonstrated points of injection as well as subsequent therapy protocol and the need for recurrent therapy as well as post treatment needs etc. More than 20 minutes was spent in this alone. ?? We will start PA process for Botox approval. ?? Request medical records. ?? I spent greater than 60 minutes in [id number] time with this patient, greater than 50 percent of which was spent reviewing the chart, discussing prior treatment trials, reviewing the disease process, prognosis, treatment options, and answering all the patient's questions to the best of my ability. ?? Return to clinic for Botox or in 3 months, whichever comes first. Thank you for allowing me to participate in Vera Vitale's care Raulito Iglesias MD [facility] [place] Portions of this note were transcribed using a computerized voice recognition system without a human box puller. This report has not been adjusted for typographical, grammatical, and syntax by a trained medical imaging specialist. documented in this encounter Plan of Treatment Not on file documented as of this encounter Visit Diagnoses Diagnosis Chronic migraine without aura without status migrainosus, not intractable- Primary Chronic migraine without aura, without mention of intractable migraine without mention of status migrainosus documented in this encounter Care Teams Alarm Installation Technician Relationship Specialty Start Date End Date Hilda Eden APRN-RETIREMENT ASSISTANT [address] [place] [phone] PCP - General Nurse Practitioner 11/05/14 01/02/18 documented as of this encounter
--- OUTSIDE RECORDS SUMMARY | 2024-08-03 01:38 | XMS_ITS | Clinical Summary ---
Author Organization [facility] Address [address] [place] [address] Care Team Providers Care Sql Database Programmer Name Role Phone Daisha Staley MD Primary Care Provider + Allergies Active Allergy Reactions Criticality Noted Date Comments Adhesive Rash Medium 02/20/2023 Medications cyclobenzaprine (FLEXERIL) 5 mg tablet Take 1 tablet (5 mg total) by mouth 3 (three) times a day as needed for muscle spasms 90 tablet 10/15/2023 Active traMADoL (ULTRAM) 50 mg tablet Take 2 tablets (100 mg total) by mouth every 6 (six) hours as needed for pain 60 tablet 10/15/2023 Active ondansetron (ZOFRAN) 4 mg tablet TAKE 1 TABLET BY MOUTH FOUR TIMES A DAY NEEDED FOR NAUSEA AND VOMITING 20 tablet 12/06/2023 Active Active Problems Problem Noted Date Diagnosed Date Hyperlipidemia 09/17/2023 Gastroesophageal reflux disease 09/17/2023 Bipolar I disorder 09/17/2023 Migraine 09/17/2023 Tobacco use 07/25/2023 Assessment & Plan (09/17/2023 2:32 PM PATIENT RELATIONS SPECIALIST): Unable to tolerate bupropion, discussed possibly starting chantix vs gum/patches, she plans to try patches. Assessment & Plan (07/25/2023 9:24 AM PATIENT RELATIONS SPECIALIST): We discussed the risks of smoking including cardiovascular disease, pulmonary disease, osteoporosis and cancer risks. We talked about reducing risks through smoking cessation. We reviewed approaches to quitting smoking including behavioral changes; nicotine replacement with gums, patches, lozenges; medications such as buproprion or chantix. I also gave resources such as [facility] smoking cessation clinic and 4-436-INCJ-NOW for additional support. I spent 4 minutes discussing smoking and smoking cessation. Rx for bupropion sent. Chlamydia contact 03/26/2023 Psoriatic arthritis 02/20/2023 Assessment & Plan (07/25/2023 9:24 AM PATIENT RELATIONS SPECIALIST): Patient transitioning care to [facility], had been on steroids and leflunomide, stopped on her own, feels her symptoms are stable. Will refer to rheumatology. Assessment & Plan (02/20/2023 1:57 PM CDT): Follows with rheumatology. Stable. History of gestational diabetes 02/20/2023 Lymphadenopathy 02/20/2023 Assessment & Plan (07/25/2023 9:25 AM PATIENT RELATIONS SPECIALIST): Has had lymph node dissection in the past, with benign pathology, notes worsening again, especially since off steroids. Will refer to hematology for further evaluation. Assessment & Plan (02/20/2023 1:57 PM CDT): Has had lymph node dissection in the past, with benign pathology. Has follow up with hematology scheduled. Will monitor. Lumbar disc herniation with radiculopathy 2016 Assessment & Plan (09/17/2023 2:31 PM PATIENT RELATIONS SPECIALIST): Patient currently taking tramadol daily as well as cyclobenzaprine. Previously had been to pain management, notes continues to have low back pain. Will refer to physiatry for eval, and discussed possibly returning to pain management if needed. PCOS (polycystic ovarian syndrome) 06/11/2007 Resolved Problems Problem Noted Date Diagnosed Date Resolved Date CLOTILDE (generalized anxiety disorder) 09/15/2016 02/20/2023 Bipolar affective disorder, currently depressed, moderate (CMS/HCC) 09/15/2016 02/20/2023 Immunizations Name Administration Dates Next Due Influenza, Quadrivalent, Spl it, Preservative Free, Intramuscular 09/15/2016 Influenza, Trivalent, IM (MDV) 06/11/2015,2009 Tdap 11/25/2010 Surgical History Surgery Date Site/Laterality Comments BRAIN SURGERY colloid cyst removal SECTION LYMPH NODE DISSECTION CHOLECYSTECTOMY Medical History Medical History Date Comments Bipolar affective disorder, currently depressed, moderate (CMS/HCC) (HCC) 09/15/2016 CLOTILDE (generalized anxiety disorder) 09/15/2016 Colloid cyst of brain (HCC) Family History Medical History Relation Name Comments Diabetes Father Heart attack Father Prostate cancer Maternal Grandfather Leukemia Maternal Grandmother Hypertension Mother Relation Name Status Comments Father Maternal Grandfather Maternal Grandmother Mother Social History Tobacco Use Types Packs/Day Years Used Date Smoking Tobacco: Every Day Cigarettes 1 12 Started: 2012 Smokeless Tobacco: Never Tobacco Cessation:Ready to Q uit: Not Asked; Counseling Given: Not Answered AUDIT-C Answer Date Recorded Q1: How often do you have a drink containing alc ohol? 2-3 times a week 02/20/2023 Q2: How many drinks containi ng alcohol do you have on a typical day when you are drinking? 1 or 2 02/20/2023 Frequency of Binge Drinking Not on file 02/10 PHQ-2 Answer Date Recorded PHQ-2 Total Score (If total score is 3 or more points, staff should administer the PHQ-9) 0 02/20/2023 Personal Safety Answer Date Recorded Getting School Help Needed Not on file 07/24 Comments Unknown Sex and Gender Information Value Date Recorded Sex Assigned at Not on file Legal Sex Female 4:23 PM PATIENT RELATIONS SPECIALIST Gender Identity Not on file Sexual Orientation Not on file Obstetrics History Last Filed Vital Signs Vital Sign Reading Time Taken Comments Blood Pressure 120/80 09/17/2023 9:43 AM PATIENT RELATIONS SPECIALIST Pulse 88 09/17/2023 9:43 AM PATIENT RELATIONS SPECIALIST Temperature - - Respiratory Rate - - Oxygen Saturation 98% 09/17/2023 9:43 AM PATIENT RELATIONS SPECIALIST Inhaled Oxygen Concentration - - Weight 97.5 kg (214 lb 14.4 oz) 09/17/2023 9:43 AM PATIENT RELATIONS SPECIALIST Height 167.6 cm (5' 6 ) 09/17/2023 9:43 AM PATIENT RELATIONS SPECIALIST Body Mass Index 34.69 09/17/2023 9:43 AM PATIENT RELATIONS SPECIALIST Plan of Treatment Health Maintenance Due Date Last Done Comments Cervical Cancer Screening 1985 Hepatitis C Screening 1985 Pneumococcal vaccine <65 (1 of 2 - PCV) 1991 Varicella Vaccines (1 of 2 - 13+ 2-dose series) 1998 Hepatitis B Screening 2003 Zoster Vaccine (1 of 2) 2004 DTaP/Tdap/Td Vaccine (2 - Td or Tdap) 11/25/2020 11/25/2010 Depression Screening 02/21/2024 02/20/2023 Regular Well Visit/Exam 18-64 02/21/2024 02/20/2023 Influenza Vaccine (#1) 2024 7, 06/11/2015, 07/13/2010 HPV Vaccines Aged Out No longer eligi ble based on patient's age to complete this topic Insurance MEDICARE MEDICARE MEDICARE [facility] Care Teams Sql Database Programmer Relationship Specialty Start Date End Date Daisha Staley MD [facility] [address] [address] [place] [address] PCP - General Internal Medicine 02/06/23
--- OUTSIDE RECORDS SUMMARY | 2024-08-03 01:38 | XMS_ITS | Encounter Summary ---
Author Organization [facility] Address [address] [facility] [[email or web address]] [address] [place] [address] Phone Care Team Providers Care Director Water And Waste Services Name Role Phone Daisha Staley MD Primary Care Provider + Reason for Referral * Cardiology (Routine) - Authorized Specialty Diagnoses / Procedures Referred By Reva holbrook Referred To Contact Diagnoses Palpitations Procedures ECG 12 lead Daisha Staley MD [address] [place], [place] [address]STEVE MON [address] [place] [address] Phone: tel: fax: Referral ID Status Reason Start Date Expiration Date V isits Requested Visits Authorized [id number] Authorized 09/17/2023 10/16/2024 1 1 MAN * Cardiology (Routine) - Authorized Specialty Diagnoses / Procedures Referred By Reva holbrook Referred To Contact Diagnoses Palpitations Procedures 48 HR Holter Monitor Daisha Staley MD [address] [place], [place] [address]STEVE MON [address] [place] [address] Phone: tel: fax: [address] [phone] Referral ID Status Reason Start Date Expiration Date V isits Requested Visits Authorized [id number] Authorized 09/17/2023 10/16/2024 1 1 MAN * Consultation (Routine) - Closed Specialty Diagnoses / Procedures Referred By Contkeisha t Referred To Contact Physical Medicine and Rehabilitation Diagnoses Lumbar disc herniation with radiculopathy Daisha Staley MD [address] [place], [place] [address]STEVE MON [address] [place] [address] Phone: tel: fax: [facility] (All Locations) Referral ID Status Reason Start Date Expiration Date V isits Requested Visits Authorized [id number] Closed Specialty Services Required 09/17/2023 08/06/2024 1 1 Question Answer Please select the performing region: [facility] (All Locations) [[id number]] # of visits: 1 MAN Reason for Visit * Reason Comments Follow-up Encounter Details Date Type Department Care Team (Late st Contact Info) Description 09/17/2023 10:00 AM ROPEMAN Office Visit [address] [phone] Daisha Staley MD [address] [place], [place] [address]STEVE MON [address] [place] [id number] Lumbar disc herniation with radiculopathy (Primary Dx); Palpitations; Tobacco use Social History Tobacco Use Types Packs/Day Years Used Date Smoking Tobacco: Every Day Cigarettes 1 12 Started: 2012 Smokeless Tobacco: Never AUDIT-C Answer Date Recorded Q1: How often [...] on file Legal Sex Female 4:23 PM ROPEMAN Gender Identity Not on file Sexual Orientation Not on file documented as of this encounter Last Filed Vital Signs Vital Sign Reading Time Taken Comments Blood Pressure 120/80 09/17/2023 9:43 AM ROPEMAN Pulse 88 09/17/2023 9:43 AM ROPEMAN Temperature - - Respiratory Rate - - Oxygen Saturation 98% 09/17/2023 9:43 AM ROPEMAN Inhaled Oxygen Concentration - - Weight 97.5 kg (214 lb 14.4 oz) 09/17/2023 9:43 AM ROPEMAN Height 167.6 cm (5' 6 ) 09/17/2023 9:43 AM ROPEMAN Body Mass Index 34.69 09/17/2023 9:43 AM ROPEMAN documented in this encounter Progress Notes * Daisha Staley MD - 09/17/2023 10:00 AM CST Subjective/Objective Patient ID: Vera Vitale is a 38 y.o. female. Chief Complaint Follow-up Ms. Vitale is here today to follow up. She reports she was unable to tolerate bupropion and is still smoking. She is hopeful to quit smoking - she has not tried anything else. She also reports that while she was taking the medication she noted some palpitations, which have improved, but not fully resolved. She last took the medication about a month ago. She denies any chest pain, dyspnea, headaches, dizziness. She also reports she continues to have back pain that is chronic in nature. She had seen pain management in the past, but has not recently. She reports using tramadol and cyclobenzaprine the pain is manageable. She is agreeable to trying alternative therapies if available. No other major concerns today. Review of Systems Constitutional: Negative for chills, fatigue and fever. Respiratory: Negative for cough, chest tightness and shortness of breath. Cardiovascular: Negative for chest pain, palpitations and leg swelling. Gastrointestinal: Negative for abdominal pain, diarrhea, nausea and vomiting. Musculoskeletal: Negative for back pain. Skin: Negative for rash. Neurological: Negative for dizziness, weakness, light-headedness, numbness and headaches. Physical Exam Vitals reviewed. Constitutional: Appearance: Normal appearance. HENT: Head: Normocephalic and atraumatic. Mouth/Throat: Mouth: Mucous membranes are moist. Eyes: Extraocular Movements: Extraocular movements intact. Cardiovascular: Rate and Rhythm: Normal rate and regular rhythm. Heart sounds: Normal heart sounds. Pulmonary: Effort: Pulmonary effort is normal. Breath sounds: Normal breath sounds. Musculoskeletal: General: No swelling. Normal range of motion. Cervical back: Normal range of motion. Skin: General: Skin is warm and dry. Neurological: General: No focal deficit present. Mental Status: She is alert and oriented to person, place, and time. Assessment/Plan Diagnoses and all orders for this visit: Lumbar disc herniation with radiculopathy (M51.16) (Primary) Assessment & Plan: Patient currently taking tramadol daily as well as cyclobenzaprine. Previously had been to pain management, notes continues to have low back pain. Will refer to physiatry for eval, and discussed possibly returning to pain management if needed. Orders: - Ambulatory referral to Orthopedic Physiatry; Future Palpitations (R00.2) - Thyroid Function [place]; Future - Comprehensive metabolic panel; Future - 48 HR Holter Monitor; Future - ECG 12 lead Tobacco use (Z72.0) Assessment & Plan: Unable to tolerate bupropion, discussed possibly starting chantix vs gum/patches, she plans to try patches. MAN documented in this encounter Procedure Notes * Daisha Staley MD - 09/17/2023 10:00 AM CSTAssociated Order(s): ECG 12 lead Post-Procedure Diagnose(s): Palpitations ECG 12 lead Date/Time: 09/17/2023 2:32 PM Performed by: Daisha Staley MD Authorized by: Daisha Staley MD Previous ECG: no previous ECG available Rhythm: sinus rhythm Clinical impression: normal ECG MAN documented in this encounter Miscellaneous Notes * Assessment & Plan Note - Daisha Staley MD - 09/17/2023 2:32 PM ROPEMAN Associated Problem(s): Tobacco use Unable to tolerate bupropion, discussed possibly starting chantix vs gum/patches, she plans to try patches. MAN * Assessment & Plan Note - Daisha Staley MD - 09/17/2023 2:31 PM ROPEMAN Associated Problem(s): Lumbar disc herniation with radiculopathy Patient currently taking tramadol daily as well as cyclobenzaprine. Previously had been to pain management, notes continues to have low back pain. Will refer to physiatry for eval, and discussed possibly returning to pain management if needed. MAN documented in this encounter Plan of Treatment Scheduled Orders Name Type Priority Associated Diagnoses Order Schedule Thyroid Function [place] Lab Routine Palpitations Expected: 09/17/2023, Expires: 09/17/2024 Comprehensive metabolic panel Lab Routine Palpitations Expected: 09/17/2023, Expires: 09/17/2024 48 HR Holter Monitor Cardiac Services Routine Palpitations Expected: 09/17/2023, Expires: 09/17/2024 Scheduled Referrals Name Type Priority Associated Diagnoses Orde r Schedule Ambulatory referral to Orthopedic Physiatry Outpatient Referral Routine Lumbar disc herniation with radiculopathy Expected: 10/01/2023 (Approximate), Expires: 09/17/2024 documented as of this encounter Procedures Procedure Name Priority Date/Time Associated Diagnosis Comments ECG 12-LEAD Routine 09/17/2023 2:32 PM ROPEMAN Palpitations documented in this encounter Results * ECG 12-LEAD (09/17/2023 2:32 PM ROPEMAN) Narrative Daisha Staley MD - 09/17/2023 2:32 PM ROPEMAN Daisha Staley MD ? 09/17/2023 ??2:33 PM ECG 12 lead Date/Time: 09/17/2023 2:32 PM Performed by: Daisha Staley MD Authorized by: Daisha Staley MD ??Previous ECG: no previous ECG available Rhythm: sinus rhythm Clinical impression: normal ECG Daisha Staley MD ECG ORDERABLES Final Re sult documented in this encounter Visit Diagnoses Diagnosis Lumbar disc herniation with radiculopathy- Primary Displacement of lumbar intervertebral disc without myelopathy Palpitations Tobacco use documented in this encounter Discontinued Medications Medication Sig Discontinue Reason Start Date End Da te buPROPion XL (WELLBUTRIN XL) 150 mg 24 hr tabletIndications:Tobacc o use Take 1 tablet (150 mg total) by mouth every morning 07/25/2023 09/17/2023 folic acid (FOLVITE) 1 mg tablet Take 1 tablet (1,000 mcg total) by mouth daily 01/24/2023 09/17/2023 butalbital-acetaminophen -caffeine (ESGIC) 50-325-40 mg per tablet Take 1 tablet by mouth every 4 (four) hours as needed 10/17/2017 09/17/2023 albuterol HFA (PROVENTIL HFA,VENTOLIN HFA,PROAIR HFA) 90 mcg/actuation inhaler Inhale 1 puff 2 (two) times a day 09/17/2023 documented as of this encounter Care Teams Director Water And Waste Services Relationship Specialty Start Date End Date Daisha Staley MD [facility] [address] Brett MON [address] [place] [id number] PCP - General Internal Medicine 02/06/23 documented as of this encounter
--- OUTSIDE RECORDS SUMMARY | 2024-08-03 01:38 | XMS_ITS | Encounter Summary ---
Author Organization [facility] Care Team Providers Care Clerical Warehouse Worker Name Role Phone Unavailable Primary Care Provider Unavailabl e Encounter Details Date Type Department Care Team (Latest Contact Info) Description 09/26/2012 10:12 AM LEAD RAMP AGENT Hospital Encounter [facility] Wiliam Smith MD [address] [id number] [place] [address] Lumbosacral spondylosis without myelopathy Social History Tobacco Use Types Packs/Day Years Used Date Smoking Tobacco: Never Assessed Comments Unknown Sex and Gender Information Value Date Recorded Sex Assigned at Not on file Legal Sex Female 4:23 PM LEAD RAMP AGENT Gender Identity Not on file Sexual Orientation Not on file documented as of this encounter Plan of Treatment Not on file documented as of this encounter Visit Diagnoses Diagnosis Lumbosacral spondylosis without myelopathy documented in this encounter
--- OUTSIDE RECORDS SUMMARY | 2024-08-03 01:38 | XMS_ITS | Encounter Summary ---
Author Organization [facility] Address [address] [place] [address] Care Team Providers Care Wheel Loader Operator Name Role Phone Hilda Eden CLAY ARTIST-CENTRAL OFFICE FRAME WIRER Primary Care Provider [phone] Reason for Visit * Auth/Cert Specialty Diagnoses / Procedures Referred By Reva holbrook Referred To Contact Diagnoses Neoplasm of uncertain behavior of skin Procedures EXCISION MASS AXILLARY Referral ID Status Reason Start Date Expiration Date Visits Re quested Visits Authorized [id number] 1 1 Encounter Details Date Type Department Care Team (Latest Contact Info) Description 11/10/2014 6:30 AM CDT - 11/10/2014 12:35 PM CDT Hospital Encounter [facility] [address] [address] Matthieu Saeed DO RETIRED Surgery General Discharge Disposition: Home or Self Care Social [...] Sign Reading Time Taken Comments Blood Pressure 103/61 11/10/2014 11:34 AM CDT Pulse 89 11/10/2014 11:34 AM CDT Temperature 36.4 ??C (97.6 ??F) 11/10/2014 11:34 AM C DT Respiratory Rate 16 11/10/2014 11:34 AM CDT Oxygen Saturation 93% 11/10/2014 11:34 AM CDT Inhaled Oxygen Concentration - - Weight 120.2 kg (265 lb) 11/10/2014 6:53 AM CDT Height 167.6 cm (5' 6 ) 11/10/2014 6:53 AM CDT Body Mass Index 42.77 11/10/2014 6:53 AM CDT documented in this encounter Functional [...] mg by mouth once daily. 06/14/2017 folic mfxm-mknuegrngm-zhoxfsmfg renetta (FOLGARD) 0.8-10-0.115 MG tablet Take 1 [...] daily. 06/14/2017 documented as of this encounter H&P Notes * Matthieu Saeed, DO - 11/05/2014 1:18 PM CDT PATIENT: Vera Vitale : 1985 DATE: 10/14/2014 PRESENT ILLNESS: This is a female with the complaint of right cervical lymph node enlargement, and right axillary swelling. She states this has been intermittent in nature for several years and the swelling in the lymph nodes have been getting progressively worse . She denies any history of fevers,night sweats, or weight loss. On examination I am unable to palpate any abnormality within the neckand she stated it was difficult to feel at this time. However on examination on the right axilla there is significant fullness in comparison to the left . Right breast exam is negative. There is painwith palpation. CURRENT MEDICAL PROBLEMS: Medical history positive for arthritis , bipolar, anxiety, and fibromyalgia . PREVIOUS SURGERY: Surgical history gallbladder and . MEDICATIONS and ALLERGIES: Multiple medications which would be part of the chart . SOCIAL HISTORY: No tobacco, no alcohol and no history of drug abuse. NUMBER OF CHILDREN: 1 FAMILY HISTORY: Family history of diabetes and arthritis REVIEW OF SYSTEMS: Constitutional: denies fever or chills, no change in weight or sleeping habits. Eyes: denies blurred vision, scleral icterus or glaucoma. ENT: denies hearing deficit, dizziness, runny nose, hoarseness or sore throat. Cardiovascular: denies chest pain, palpitations, orthopnea or edema. Respiratory: denies cough, wheezing or difficulty breathing. Gastrointestinal: denies pain, nausea, vomiting, constipation, diarrhea, melena or hematochezia. Genitourinary: denies nocturia, hematuria, dysuria, frequency or kidney stones. Musculoskeletal: denies stiffness, back pain or joint pain. Neuro/Psych: denies headaches, seizures, paralysis, depression or anxiety. Hemat/lymph: denies easy bruising, nose bleeds PHYSICAL EXAMINATION: Vital Signs: Weight 260, pulse 88, R 20 . Appearance: patient is well developed, well nourished and cooperative. Eyes: conjunctivae pink, sclerae clear, PERRLA. ENT: inspection of ears, nose and oropharynx benign. Neck: supple without masses, trachea midline, no adenopathy or thyromegaly. Lungs: clear to percussion and auscultation. Heart: regular, S1-S2, no murmur,rub or gallop. Abdomen: soft, nontender, sounds normal, no organomegaly, masses or inguinal nodes. Extremities: no edema, cyanosis, clubbing or varicosities. Neuro/Psych: non focal, alert and oriented x3, emotional state normal. Sand Filler: <> Breast: See chief complaint Rectal: <> IMPRESSION: 1. right axilla mass PATIENT DISCUSSION: She will be scheduled for surgical excision in the right axilla on 11/10/14. Theclinical findings of today's visit and planned treatment were outlined for the patient. The procedure indications, risks, benefits and alternative option were also explained and questions answered. The patient understood and agreed to the procedure. Matthieu Saeed DO documented in this encounter OR Notes * Operative - Matthieu Saeed DO - 11/10/2014 8:30 PM CDT [facility] OPERATIVE REPORT PATIENT: : VERA PURDY MR#: [id number] ADMIT DATE: 11/10/2014 CSN: [id number] DATE OF SURGERY: 11/10/2014 : 1985 PHYSICIAN: Matthieu Saeed DO ROOM: [facility] PREOPERATIVE DIAGNOSIS: Right axillary lipoma. POSTOPERATIVE DIAGNOSIS: 10 cm right axillary lipoma and right axillary lymph node. PROCEDURES PERFORMED: Excision of 10 cm right axillary lipoma and right axillary lymph node biopsy. SURGEON: Matthieu Saeed DO. INDICATIONS FOR PROCEDURE: INFORMED CONSENT: PROCEDURE: The patient in the supine position on the operating table, under general inhalation of anesthesia, the right axilla was prepped with Betadine solution. Sterile towels and drapes were applied. Marcaine injected for local anesthesia. An incision was developed in the right axilla over palpable fullness and carried down to deeper margins using blunt and sharp dissection. Significant fatty change and lipomatous change was identified. Using blunt and sharp dissection, this was all dissected and removed. It measures about 10 cm. The incision was carried down deep to the axilla. There is a large lymph node noted to be present at the base. Using blunt and sharp dissection, this was dissected and removed separately. This was sent to pathology for analysis. The wound was then lavaged with saline solution. Hemostasis was appropriate. The deep margins were then closed with plain suture. The skin margins were closed with Monocryl. Dressings were applied. The patient went to recovery room in satisfactory condition. GROSS PATHOLOGY: This is a 29-year-old, obese female with right axillary fullness and pain. At surgery, significant right axillary fullness and lipoma was identified measuring greater than 10 cm. There was also a 4 cm right axillary lymph node that was removed separately. Path reports are pending. Tolerated well. ESTIMATED BLOOD LOSS: COMPLICATIONS: CONDITION: DISPOSITION: Matthieu Saeed DO MGV/MODL #: [id number] documented in this encounter Plan of Treatment Not on file documented as of this encounter Procedures Procedure Name Priority Date/Time Associated Diagnosis Comments EXCISION MASS OR TUMOR AXILLA 11/10/2014 4:40 PM CDT Neoplasm of uncertain behavior of skin Special Needs Pt.'s last name needs updating by registration, current - Vera Vitale PATHOLOGY TISSUE EXAM (STL) Routine 11/10/2014 9:45 AM CDT Neoplasm of uncertain behavior of skin [238.2] HCG URINE QUALITATIVE - POINT OF CARE STAT 11/10/2014 8:05 AM CDT documented in this encounter Results * GROSS + MICRO EXAM (STL) (11/10/2014 9:45 AM CDT) Case Report Surgical Pathology Report ? Case: [id number] ? Authorizing Provider: ??Matthieu Saeed DO ?Collected: ? 11/10/2014 09:45 AM ? Ordering Location: ? [facility] ? Received: ?11/11/2014 07:54 AM ? Pathologist: ? Aric Orozco MD ? Specimens: ?? A) - Axilla, right axillary node ? B) - Axilla, right axillary tissue ? 11/12/2014 4:14 PM CDT [facility] Final Diagnosis 1. ??Right axillary lymph node, excision: -- ??Reactive follicular hyperplasia 2. ?? Right axillary tissue, resection: -- ??Skin and mature adipose tissue (see microscopic) AB/vr 11/12/2014 4:14 PM CDT [facility] Gross Description Received are two containers [...] with full thickness section in cassettes B5/B6. DYT/alreyes 11/12/2014 4:14 PM CDT [facility] Microscopic [...] lipoma if a distinct mass was seen. AB/jacqueline 11/12/2014 4:14 PM CDT [facility] Pathology/Cytology TISSUE SPECIMEN FROM AXILLA / Unknown 11/10/2014 9:45 AM CDT 11/11/2014 7:54 AM CDT Comment:799.9 Miscellaneous samples (specimen) TISSUE SPECIMEN FROM AXILLA / Unknown 11/10/2014 9:45 AM CDT 11/11/2014 7:54 AM CDT Comment:799.9 Matthieu Saeed DO LAB - PATHOLOGY/CYTO LOGY ORDERABLES Performing Organization Address [facility] Co de Phone Number [facility] [address] [place] [address] * HCG URINE QUALITATIVE - POINT OF CARE (IP) (11/10/2014 8:05 AM CDT) HCG Qual Urine Negative Negative [facility] QC Verified Yes Yes [facility] POC T TESTING Urine specimen (specimen) URINE / Unknown 11/10/2014 8:05 AM CDT Krunal Aleman MD LAB - POINT OF CARE ORDERABLES Performing Organization Address [facility] Co de Phone Number [facility] [id number] documented in this encounter Visit Diagnoses Diagnosis Preop examination- Primary Preoperative examination, unspecified Neoplasm of uncertain behavior of skin [238.2] Neoplasm of uncertain behavior of skin documented in this encounter Administered Medications Inactive Administered Medications - up to 3 most recent administrations Medication Order MAR Action Action Date Dose Rate Site acetaminophen (TYLENOL) tablet 1,000 mg 1,000 mg, Oral, PRE-OP ONCE, 1 dose, On Sun11/10/14 at 0652, Maximum allowable Acetaminophen amount = 4 Grams (4000 mg) / 24 hours., Pre-op $ Given 11/10/2014 7:02 AM CDT 1,000 mg famotidine (PEPCID) tablet 20 mg 20 mg, Oral, ONCE PRN, Heartburn, 1 dose, Starting on Sun11/10/14 at 0652, Until Sun11/10/14 at 0701, Administer famotidine (PEPCID) 20mg po (one dose) if patient has BMI greater than 36 or has history of reflux and has not taken own medications prior to arrival morning of surgery, Pre-op $ Given 11/10/2014 7:01 AM CDT 20 mg fentaNYL (SUBLIMAZE) injection 25 mcg 25 mcg, Intravenous, EVERY 10 MIN PRN, Mild Pain, 4 doses, Starting on Sun11/10/14 at 1047, Until Sun11/10/14 at 1335, Maximum total of 4 doses. If patient reaches max total dose, please consult anesthesiologist prior to further administration of pain meds. Hold pain meds if there are signs of hypoventilation., PACU $ Given 11/10/2014 10:35 AM CDT 25 mcg $ Given 11/10/2014 10:18 AM CDT 25 mcg hydrocodone-acetaminophen (NORCO) 5-325 MG tablet 1-2 Tab 1-2 tablet, Oral, EVERY 4 HOURS PRN, Mild Pain, For mild pain (pain scale 1-3)., Starting on Sun11/10/14 at 1125, Until Sun11/10/14 at 1335, Maximum allowable Acetaminophen amount = 4 Grams (4000 mg) / 24 hours., Post-op $ Given 11/10/2014 11:26 AM CDT 2 tablets ketorolac (TORADOL) injection 30 mg 30 mg, Intravenous, ONCE, 1 dose, On Sun11/10/14 at 1115 $ Given 11/10/2014 10:47 AM CDT 30 mg lactated ringers infusion at 20 mL/hr, Intravenous, PRE-OP CONTINUOUS, Starting on Sun11/10/14 at 0700, Until Sun11/10/14 at 1335, Pre-op $ New Bag/Syringe 11/10/2014 9:16 AM CDT $ New Bag/Syringe 11/10/2014 7:02 AM CDT 20 mL/ hr lidocaine buffered 1 % injection Infiltration, PRE-OP MULTIPLE, 3 doses, Starting on Sun11/10/14 at 0652, Until Sun11/10/14 at 1335, May be used (0.2 ml locally to anesthetize prior to insertion if patient has NKA to Lidocaine)., Pre-op $ Given 11/10/2014 7:02 AM CDT 0.5 mL ondansetron (disintegrating) (ZOFRAN ODT) tablet 4 mg 4 mg, Oral, PRE-OP ONCE, 1 dose, On Sun11/10/14 at 0652, Pre-op $ Given 11/10/2014 7:02 AM CDT 4 mg documented in this encounter Active and Recently Administered Medications Times are shown in CDT. Scheduled Medication Order 11/08/2014 11/09/2014 11/10/2014 acetaminophen (TYLENOL) tablet 1,000 mg (COMPLETED) 1,000 mg, Oral, PRE-OP ONCE, 1 dose, On Sun11/10/14 at 0652, Maximum allowable Acetaminophen amount = 4 Grams (4000 mg) / 24 hours., Pre-op 0702 ($ Given - Prov ider: Liseth Carter RN) ketorolac (TORADOL) injection 30 mg (COMPLETED) 30 mg, Intravenous, ONCE, 1 dose, On Sun11/10/14 at 1115 1047 ($ Given - Prov ider: Pat Lara RN) lidocaine buffered 1 % injection (CANCELED) Infiltration, PRE-OP MULTIPLE, 3 doses, Starting on Sun11/10/14 at 0652, Until Sun11/10/14 at 1335, May be used (0.2 ml locally to anesthetize prior to insertion if patient has NKA to Lidocaine)., Pre-op 0702 ($ Given - Prov ider: Liseth Carter RN) ondansetron (disintegrating) (ZOFRAN ODT) tablet 4 mg (COMPLETED) 4 mg, Oral, PRE-OP ONCE, 1 dose, On e 11/10/14 at 0652, Pre-op 0702 ($ Given - Prov ider: Liseth Carter RN) Continuous Medication Order 11/08/2014 11/09/2014 11/10/2014 lactated ringers infusion (CANCELED) at 20 mL/hr, Intravenous, PRE-OP CONTINUOUS, Starting on Sun11/10/14 at 0700, Until Sun11/10/14 at 1335, Pre-op 0702 ($ New Bag/Syri nge - Provider: Liseth Carter RN)0916 ($ New Bag/Syringe - Provider: TREV Del Cid)1011 (Stopped - Provider: TREV Del Cid) PRN Medication Order 11/08/2014 11/09/2014 11/10/2014 0.9% nacl irrigation solution (CANCELED) PRN, Starting on Sun11/10/14 at 0932, Until Sun11/10/14 at 1008, Intra-op 0932 ($ Given - Prov ider: Matthieu Saeed DO - Comment: on table) bupivacaine 0.5% - epinephrine 1:200,000 (PF) injection (CANCELED) PRN, Starting on Sun11/10/14 at 0932, Until Sun11/10/14 at 1008, Intra-op 0932 ($ Given - Prov ider: Matthieu Saeed DO) famotidine (PEPCID) tablet 20 mg (COMPLETED) 20 mg, Oral, ONCE PRN, Heartburn, 1 dose, Starting on Sun11/10/14 at 0652, Until Sun11/10/14 at 0701, Administer famotidine (PEPCID) 20mg po (one dose) if patient has BMI greater than 36 or has history of reflux and has not taken own medications prior to arrival morning of surgery, Pre-op 07 ($ Given - Prov ider: Liseth Carter RN) fentaNYL (SUBLIMAZE) injection 25 mcg (CANCELED) 25 mcg, Intravenous, EVERY 10 MIN PRN, Mild Pain, 4 doses, Starting on Sun11/10/14 at 1047, Until Sun11/10/14 at 1335, Maximum total of 4 doses. If patient reaches max total dose, please consult anesthesiologist prior to further administration of pain meds. Hold pain meds if there are signs of hypoventilation., PACU 1018 ($ Given - Prov ider: Pat Lara RN)1035 ($ Given - Provider: Pat Lara RN) hydrocodone-acetaminophen (NORCO) 5-325 MG tablet 1-2 Tab (CANCELED) 1-2 tablet, Oral, EVERY 4 HOURS PRN, Mild Pain, For mild pain (pain scale 1-3)., Starting on Sun11/10/14 at 1125, Until Sun11/10/14 at 1335, Maximum allowable Acetaminophen amount = 4 Grams (4000 mg) / 24 hours., Post-op 1126 ($ Given - Prov ider: Pat Lara RN) documented in this encounter Care Teams Wheel Loader Operator Relationship Specialty Start Date End Date Hilda Eden APRN-[place] [address] [place] [address] PCP - General Nurse Practitioner 11/05/14 01/02/18 documented as of this encounter
--- OUTSIDE RECORDS SUMMARY | 2024-08-03 01:38 | XMS_ITS | Encounter Summary ---
Author Organization [facility] Care Team Providers Care Psychodramatist Name Role Phone Unavailable Primary Care Provider Unavailabl e Encounter Details Date Type Department Care Team (Latest Contact Info) Description 08/29/2012 9:21 AM PARTNERSHIP MARKETING MANAGER Hospital Encounter [facility] Wiliam Smith MD [address] [id number] [place] [address] Spinal stenosis of lumbar region without neurogenic claudication; Thoracic or lumbosacral neuritis or radiculitis Social History Tobacco Use Types Packs/Day Years Used Date Smoking Tobacco: Never Assessed Comments Unknown Sex and Gender Information Value Date Recorded Sex Assigned at Not on file Legal Sex Female 4:23 PM PARTNERSHIP MARKETING MANAGER Gender Identity Not on file Sexual Orientation Not on file documented as of this encounter Plan of Treatment Not on file documented as of this encounter Visit Diagnoses Diagnosis Spinal stenosis of lumbar region without neurogenic claudication Thoracic or lumbosacral neuritis or radiculitis Thoracic or lumbosacral neuritis or radiculitis, unspecified documented in this encounter
--- OUTSIDE RECORDS SUMMARY | 2024-08-03 01:38 | XMS_ITS | Encounter Summary ---
Author Organization [facility] Address [address] [place] [address] [address] [place] [address] Phone Care Team Providers Care Forging Press Setter Up Name Role Phone Daisha Staley MD Primary Care Provider + Reason for Visit * Reason Comments Preventative Care Encounter Details Date Type Department Care Team (Late st Contact Info) Description 02/20/2023 1:30 PM CDT Office Visit [address] [place] [address] Daisha Staley MD [address] [place] [address] [address] [place] [address] Preventative health care (Primary Dx); Lymphadenopathy; Psoriatic arthritis (HCC) Social History Tobacco Use Types Packs/Day Years Used Date Smoking Tobacco: Every Day Cigarettes 08 24 Started: 2012 Smokeless Tobacco: Never Tobacco Cessation:Ready [...] staff should administer the PHQ-9) 0 02/20/2023 Comments Unknown Sex and Gender Information Value Date Recorded Sex Assigned at Not on file Legal Sex Female 4:23 PM MEDICAL WRITER Gender Identity Not on file Sexual Orientation Not on file documented as of this encounter Last Filed Vital Signs Vital Sign Reading Time Taken Comments Blood Pressure 120/84 02/20/2023 1:00 PM CDT Pulse 95 02/20/2023 1:00 PM CDT Temperature - - Respiratory Rate - - Oxygen Saturation 97% 02/20/2023 1:00 PM CDT Inhaled Oxygen Concentration - - Weight 94.9 kg (209 lb 3.2 oz) 02/20/2023 1:00 P M CDT Height 167.6 cm (5' 6 ) 02/20/2023 1:00 PM CDT Body Mass Index 33.77 02/20/2023 1:00 PM CDT documented in this encounter Progress Notes * Daisha Staley MD - 02/20/2023 1:30 PM CDT Subjective/Objective Patient ID: Vera Vitale is a 37 y.o. female. Chief Complaint Preventative Care Ms. Vitale is here today to establish care and for her physical. She has a history of psoriatic arthritis that she sees rheumatology for. She also notes a longstanding history of lymphadenopathy, including lymph node dissection in the past. That pathology has been benign, and she is currently on superintendent container terminal steroids to help with this. She has an appointment with hematology coming up to evaluate further. No other major concerns today. Eating okay, sleeping okay. Review of Systems Constitutional: Negative for chills, [...] Exam Vitals reviewed. Constitutional: Appearance: Normal appearance. She is obese. HENT: Head: Normocephalic and atraumatic. Mouth/Throat: Mouth: Mucous membranes are moist. Eyes: Extraocular Movements: Extraocular movements intact. Cardiovascular: Rate and Rhythm: Normal rate and regular rhythm. Heart sounds: Normal heart sounds. Pulmonary: Effort: Pulmonary effort is normal. Breath sounds: Normal breath sounds. Abdominal: General: Abdomen is flat. Bowel sounds are normal. Palpations: Abdomen is soft. Musculoskeletal: General: No swelling. Normal range of motion. Cervical back: Normal range of motion. Skin: General: Skin is warm and dry. Neurological: General: No focal deficit present. Mental Status: She is alert and oriented to person, place, and time. Assessment/Plan Diagnoses and all orders for this visit: Preventative health care (Z00.00) (Primary) Comments: recently had labs, will send results. Up to date on screenings, immunizations up to date. Lymphadenopathy (R59.1) Assessment & Plan: Has had lymph node dissection in the past, with benign pathology. Has follow up with hematology scheduled. Will monitor. Psoriatic arthritis (HCC) (L40.50) Assessment & Plan: Follows with rheumatology. Reymundo. documented in this encounter Miscellaneous Notes * Assessment & Plan Note - Daisha Staley MD - 02/20/2023 1:57 PM CDT Associated Problem(s): Psoriatic arthritis (HCC) Follows with rheumatology. Reymundo. * Assessment & Plan Note - Daisha Staley MD - 02/20/2023 1:57 PM CDT Associated Problem(s): Lymphadenopathy Has had lymph node dissection in the past, with benign pathology. Has follow up with hematology scheduled. Will monitor. documented in this encounter Plan of Treatment Not on file documented as of this encounter Visit Diagnoses Diagnosis Preventative health care- Primary Routine general medical examination at a health care facility Lymphadenopathy Enlargement of lymph nodes Psoriatic arthritis (HCC) Psoriatic arthropathy documented in this encounter Historical Medications * This list may reflect changes made after this encounter. albuterol HFA (PROVENTIL HFA,VENTOLIN HFA,PROAIR HFA) 90 mcg/actuation inhaler Inhale 1 puff 2 (two) times a day 4 butalbital-aceta minophen-caffein e (ESGIC) 50-325-40 mg per tablet Take 1 tablet by mouth every 4 (four) hours as needed 10/17/2017 4 cyclobenzaprine (FLEXERIL) 5 mg tablet TAKE 1 TABLET BY MOUTH UP TO 3 TIMES EVERY DAY NEEDED 01/09/2023 4 folic acid (FOLVITE) 1 mg tablet Take 1 tablet (1,000 mcg total) by mouth daily 01/24/2023 4 leflunomide (ARAVA) 10 mg tablet Take 1 tablet (10 mg total) by mouth daily 01/07/2023 3 predniSONE (DELTASONE) 10 mg tablet PLEASE SEE ATTACHED FOR DETAILED DIRECTIONS 01/07/2023 3 ondansetron (ZOFRAN) 4 mg tablet TAKE 1 TABLET BY MOUTH 4 TIMES A DAY NEEDED FOR NAUSEA 01/24/2023 4 traMADoL (ULTRAM) 50 mg tablet TAKE 2 TABLETS BY ORAL ROUTE EVERY 6 HOURS NEEDED NOT TO EXCEED 8 TABLETS PER 24HRS 01/26/2023 4 added in this encounter Care Teams Forging Press Setter Up Relationship Specialty Start Date End Date Daisha Staley MD [facility] [address] Brett MON [address] [place] [id number] PCP - General Internal Medicine 02/06/23 documented as of this encounter
--- OUTSIDE RECORDS SUMMARY | 2024-08-03 01:38 | XMS_ITS | Encounter Summary ---
Author Organization [facility] Address [address] [place] [address] Care Team Providers Care Emergency Service Worker Name Role Phone Colindres, Dionicio Arnel Primary Care Provider [phone] Reason for Visit * Reason Comments THREATENED MISCARRIAGE Pt reports vagina l bleeding x 2 days. Pt not sure of gestation r/t irregular perios. Pt prescribed Methergine per Dr Norton Encounter Details Date Type Department Care Team (Late st Contact Info) Description 03/15/2009 12:48 PM CDT - 03/15/2009 5:54 PM CDT Emergency ER at [address] [address] [place] [address] [place] [address] Threatened , Antepartum (HCC) Discharge Disposition: Home or Self Care Social History Tobacco Use Types Packs/Day Years Used Date Smoking Tobacco: Every Day Cigarettes 1 4 Alcohol Use Standard Drinks/Week Comments No 0 (1 standard drink = 0.6 oz pur e alcohol) Sex and Gender Information Value Date Recorded Sex Assigned at Not on file Gender Identity Not on file Sexual Orientation Not on file documented as of this encounter Last Filed Vital Signs Vital Sign Reading Time Taken Comments Blood Pressure 134/84 03/15/2009 12:53 PM CDT Pulse 88 03/15/2009 12:53 PM CDT Temperature 36.2 ??C (97.2 ??F) 03/15/2009 12:53 PM C DT Respiratory Rate 18 03/15/2009 12:53 PM CDT Oxygen Saturation - - Inhaled Oxygen Concentration - - Weight 109.8 kg (242 lb) 03/15/2009 12:54 PM CDT Height 170.2 cm (5' 7 ) 03/15/2009 12:54 PM CDT Body Mass Index 37.9 03/15/2009 12:54 PM CDT documented in this encounter Discharge Instructions * Discharge Instructions* Rolando Russo PA - 03/15/2009 5:30 PM CDT Threatened Miscarriage Bleeding during the first 20 weeks of is common. This is sometimes called a threatened miscarriage. This is a that is threatening to end before the twentieth week of . Often this bleeding stops with bed rest or decreased activities as suggested by your caregiver and thepregnancy continues without any more problems. You may be asked to not have sexual intercourse, have orgasms or use tampons until further notice. Sometimes a threatened miscarriage can progress to a complete or incomplete miscarriage. This may or may not require further treatment. Some miscarriagesoccur before a woman misses a menstrual period and knows she is . Miscarriages occur in 15 to 20% of all pregnancies and usually occur during the first 13 weeks of the . The exact cause of a miscarriage is usually never known. A miscarriage is natures way of ending a that is abnormal or would not make it to term. There are some things that may put you at risk to have a miscarriage, such as: ?? Hormone problems. Infection of the uterus or cervix. Chronic illness, diabetes for example, especially if it is not controlled. Abnormal shaped uterus. Fibroids in the uterus. Incompetent cervix (the cervix is too weak to hold the baby). Smoking. Drinking too much alcohol. It???s best not to drink any alcohol when you are . Taking illegal drugs. Treatment When a miscarriage becomes complete and all products of conception (all the tissue in the uterus) have been passed, often no treatment is needed. If you think you passed tissue, save it in a container and take it to your doctor for evaluation. If the miscarriage is incomplete (parts of the fetus orplacenta remain in the uterus), further treatment may be needed. The most common reason for furthertreatment is continued bleeding (hemorrhage) because tissue did not pass out of the uterus. This often occurs if a miscarriage is incomplete. Tissue left behind may also become infected. Treatment usually is dilatation and curettage (the removal of the remaining products of . This can be done by a simple sucking procedure (suction curettage) or a simple scraping of the inside of the uterus. This may be done in the hospital or in the caregiver's office. This is only done when your caregiver knows that there is no chance for the to proceed to term. This is determined by physical examination, negative test, falling hormone count and/or, an ultrasound revealing a fetus. Miscarriages are often a very emotional time for prospective mothers and fathers. This is not you or your partners fault. It did not occur because of an inadequacy in you or your partner. Nearly all miscarriages occur because the has started off wrongly. At least half of these pregnancieshave a chromosomal abnormality. It is almost always not inherited. Others may have developmental problems with the fetus or placenta. This does not always show up even when the products miscarried are studied under the microscope. The miscarriage is nearly always not your fault and it is not likelythat you could have prevented it from happening. If you are having emotional and grieving problems,talk to your health care provider and even seek counseling, if necessary, before getting again. You can begin trying for another as soon as your caregiver says it is OK. HOME CARE INSTRUCTIONS ?? Your caregiver may order bed rest depending on how much bleeding and cramping you are having. You may be limited to only getting up to go to the bathroom. You may be allowed to continue light activity. You may need to make arrangements for the care of your other children and for any other responsibilities. Keep track of the number of pads you use each day, how often you have to change pads and how saturated (soaked) they are. Record this information. DO NOT USE TAMPONS. Do not douche, have sexual intercourse or orgasms until approved by your caregiver. You may receive a follow up appointment for re-evaluation of your and a repeat blood test. Re-evaluation often occurs after 2 days and again in 4 to 6 weeks. It is very important that you follow-up in the recommended time period. If you are Rh negative and the father is Rh positive or you do not know the fathers??? blood type, you may receive a shot (Rh immune globulin) to help prevent abnormal antibodies that can develop andaffect the baby in any future pregnancies. seek immediate medical attention if: ?? You have severe cramps in your stomach, back, or abdomen. You have a sudden onset of severe pain in the lower part of your abdomen. You develop chills. You run an unexplained temperature of 101?? F (38.3?? C) or higher. You pass large clots or tissue. Save any tissue for your caregiver to inspect. Your bleeding increases or you become light-headed, weak, or have fainting episodes. ?? You have a gush of fluid from your vagina. You pass out while having a bowel movement. This could mean you have a tubal (ectopic) . Document Released: 07/30/2006 Document Re-Released: 02/10/2008 [employer]?? Patient Information ??2009 [employer]. * Discharge Instructions* Document, Scanned - 03/15/2009 12:00 AM CDT documented in this encounter Medications at Time of Discharge Medication Sig Dispensed Refills Start Date End Date hydrocodone-acetaminophen (NORCO) 5-325 MG tablet Take 1 Tab by mouth every 4 hours as needed for Pain. 08/22/2010 methylergonovine (METHERGINE) 0.2 MG tablet Take 0.2 mg by mouth every 8 hours. 02/16/2010 documented as of this encounter ED Notes * Padmini Dahl - 03/15/2009 5:53 PM CDT Pt. Discharged out with instructions,denies pain. * Bela Holliday RN - 03/15/2009 3:27 PM CDT Pt restingon stretcher watching tv. States pain 11/20, just received tylenol. Pt states she stil hasabdominal cramping and back pain. * Rolando Russo PA - 03/15/2009 2:03 PM CDT 03/15/2009 2:03 PM Female Genitourinary The primary symptoms include pelvic pain and vaginal bleeding.The primary symptoms do not include dysuria.The history is provided by the patient. The current episode started 2 days ago (she says she went to [place] ED 2 days ago for vaginal bleeding, 1 pad an hour, she was told she was , but hcg quant only 39 and to f/u w/ OB. nothing on ultrasound per pt. she does not know if ectopicruled out.). The problem has been occurring constantly. The problem has been gradually worsening since onset. The quality of the pain is cramping. She is . LMP: unknown. Menstrual history hasbeen irregular. : 1, Para: 0 and AB: Vaginal deliveries: sections:. Associated symptoms include frequency.Pertinent negatives include no urgency.She has tried other (dr norton called in methergine yesterday w/o being seen (it was sunday) w/o relief. ) for the symptoms. The treatment(s) provided mild relief. Review of Systems Genitourinary: Positive for frequency. Negative for dysuria and urgency. All other systems reviewed and are negative. Physical Exam Nursing note and vitals reviewed. Constitutional: She is oriented and well-developed, well-nourished, and in no distress. HENT: Head: Normocephalic and atraumatic. Right Ear: External ear normal. Left Ear: External ear normal. Nose: Nose normal. Mouth/Throat: Oropharynx is clear and moist. Eyes: Conjunctivae and extraocular motions are normal. Pupils are equal, round, and reactive to light. Neck: Normal range of motion. Neck supple. Cardiovascular: Normal rate, regular rhythm, normal heart sounds and intact distal pulses. Pulmonary/Chest: Effort normal and breath sounds normal. Abdominal: Bowel sounds are normal. Soft. Musculoskeletal: Normal range of motion. Neurological: She is alert and oriented. Gait normal. Skin: Skin is warm. Psychiatric: Mood, memory, affect and judgment normal. EKG Interpretation Lab/SPO2 Interpretation Results for orders placed during the hospital encounter of 03/15/2009 CBC W AUTO DIFFERENTIAL Component Value Range ??? WBC 9.0 4.5-11.0 (1000/mm3) ??? RBC 5.69 (*) 4.2-5.4 (10X6) ??? Hgb 16.6 (*) 12.0-16.0 (gm/dl) ??? Hct 47.6 36.0-48.0 (%) ??? MCV 83.7 80.0-99.0 (fl) ??? MCH 29.2 25.0-31.0 (pg) ??? MCHC 34.9 32.0-36.0 (gm/dl) ??? RDW 13.6 11.5-14.5 (%) ??? Plt Ct K/CUMM 320 130.0-400.0 (1000/mm3) ??? Gran 61.2 40.0-70.0 (%) ??? Lymph 30.2 22.0-40.0 (%) ??? [place] 6.3 2.0-10.0 (%) ??? Eos 2.0 0.0-6.0 (%) ??? Baso 0.3 0.0-3.0 (%) ??? Gran Abs 5.49 1.8-7.7 ??? Lymph Abs 2.71 1.0-5.4 ??? [place]nee Abs 0.57 0.1-1.1 ??? Eos Abs 0.18 0.0-0.7 ??? Baso Abs 0.03 0.0-0.2 ??? Differential Not Indicated - HCG URINE QUALITATIVE - POINT OF CARE Component Value Range ??? HCG Qual Urine Postive Negative- ??? QC Verified Yes Yes- TYPE + SCREEN PANEL Component Value Range ??? ABO/Rh B Pos - ??? Antibody Screen Neg - HCG BETA BLOOD QUANTITATIVE Component Value Range ??? HCG Quant Serum 20.7 (*) 0.0-10.0 (mIU/ml) WET PREP SMEAR Component Value Range ??? Trichamonas Rapid Test None Detected - History Past Medical History Diagnosis Date ??? Polycystic Ovaries ??? Hyperlipidemia Past Surgical History Procedure Date ??? Tympanoplasty corrective hearing History Social History ??? Marital Status: Single Spouse Name: N/A Number of Children: N/A ??? Years of Education: N/A Occupational History ??? Not on file. Social History Main Topics ??? Tobacco Use: Yes -- 1.0 packs/day for 4 years ??? Alcohol Use: No ??? Drug Use: No ??? Sexually Active: Yes Other Topics Concern ??? Not on file Social History Narrative ??? No narrative on file Medications Current outpatient prescriptions Medication Sig Dispense Refill ??? methylergonovine (METHERGINE) 0.2 MG tablet Take 0.2 mg by mouth every 8 hours. ??? hydrocodone-acetaminophen (NORCO) 5-325 MG tablet Take 1 Tab by mouth every 4 hours as needed for Pain. Progress Notes Procedures Medical Decision Making ED Plan/Course: Pt in no pain at this time. No IUP found on U/S. Quant only 20 but we had + Ucg. Likely complete miscarriage. F/u Dr. Norton in 48 hrs for repeat quant. Pt understands, denies pastoral care. Diagnosis Encounter Diagnosis Name Primary? Threatened , Antepartum * Bela Holliday RN - 03/15/2009 2:00 PM CDT Pt presents with vaginal bleeding for two days per pt. Seen at [facility], prescribed methergine. Pt states bleeding has continued and now fills 1 pad/hour. Pt was d/c from [facility] with possible miscarriage. documented in this encounter Miscellaneous Notes * Miscellaneous Scans - Document, Scanned - 03/15/2009 12:00 AM CDT * Miscellaneous Scans - Document, Scanned - 03/15/2009 12:00 AM CDT documented in this encounter Plan of Treatment Not on file documented as of this encounter Procedures Procedure Name Priority Date/Time Associated Diagnosis Comments US OB TRANSVAGINAL DOPPLER STAT 03/15/2009 4:44 PM CDT Threatened , Antepartum (HCC) CHLAMYDIA + GC AMPLIFIED PROBE Routine 03/15/2009 3:05 PM CDT WET PREP SMEAR Routine 03/15/2009 3:04 PM CDT TYPE + SCREEN PANEL STAT 03/15/2009 2 :10 PM CDT CBC W AUTO DIFFERENTIAL STAT 03/15/2009 2:10 PM CDT HCG BETA BLOOD QUANTITATIVE STAT 03/15/2009 2:10 PM CDT HCG URINE QUALITATIVE - POINT OF CARE STAT 03/15/2009 1:35 PM CDT documented in this encounter Results * US OB < 14 WKS W/TRANSVAG AND DOPPLER (03/15/2009 4:44 PM CDT) Anatomical Region Laterality Modality Ultrasound 03/15/2009 5:05 PM CDT Impressions 03/15/2009 5:08 PM CDT Unremarkable exam. No evidence of intrauterine . This examination was transcribed using the [employer] voice recognition system without human fire protection fabricator. ??In an effort to expedite distribution and patient care, this report has not been adjusted for typographical, grammatical, and syntax by a trained medical assistant cardiology. ?? Narrative 03/15/2009 5:08 PM CDT Ultrasound [...] . This examination was transcribed using the [employer] voice recognition system without human fire protection fabricator. In an effort to expedite distribution and patient care, this report has not been adjusted for typographical, grammatical, and syntax by a trained medical assistant cardiology. Rolando ANDREW US ORDERABLES * CHLAMYDIA + GC DNA PROBE AMPLIFIED (03/15/2009 3:05 PM CDT) GC DNA Probe NEGATIVE [facility] Chlamydia trachomatis Amplified Probe NEGATIVE [facility] Additional Comment [facility] Comment: Comments and Normal Ranges for Component ? Results based on detection/no detection of ribosomal ? RNA by amplified method. PART OF UTERINE CERVIX / Unknown 03/15/2009 3:05 PM CDT 03/15/2009 3:05 PM CDT Narrative Resulting Agency Comment Performed By [facility] - [facility] ? [address] ? [place] [address] Rolando ANDREW LAB - MICROBIOLOGY O RDERAMATT Performing Organization Address [facility] de Phone Number [facility] [address] [place] [address] * WET PREP SMEAR (03/15/2009 3:04 PM CDT) Trichomonas Rapid Test None Detected [facility] ENTIRE VAGINA / Unknown 03/15/2009 3:04 PM CDT 03/15/2009 3:04 PM CDT Rolando ANDREW LAB - MICROBIOLOGY O RDERAMATT Performing Organization Address [facility] de Phone Number [facility] [address] [place] [address] * (ABNORMAL) HCG BETA BLOOD QUANTITATIVE (03/15/2009 2:10 PM CDT) [facility] HCG Quant Serum 20.7(H) 0.0 - 10.0 mIU/ml [facility] BLOOD SPECIMEN / Unknown 03/15/2009 2:10 PM CDT 03/15/2009 2:51 PM CDT Narrative [facility] - 03/15/2009 3:59 PM CDT Perform if Urine HCG is Positive Arnel Michael MD LAB - CHEMISTRY ORDE RABDAVID [facility] [address] [place] [id number] * TYPE + SCREEN PANEL (03/15/2009 2:10 PM CDT) [facility] ABO Rh B Pos [facility] Antibody Screen Neg Negative [facility] BLOOD SPECIMEN / Unknown 03/15/2009 2:10 PM CDT 03/15/2009 3:03 PM CDT Narrative [facility] - 03/15/2009 4:02 PM CDT Perform if urine HCG is positive an* Arnel Michael MD LAB - BLOOD BANK ORD ERABLES Performing Organization Address City/[facility]/ZIP Co de Phone Number [facility] [address] [place] [address] * (ABNORMAL) CBC W AUTO DIFFERENTIAL (03/15/2009 2:10 PM CDT) [facility] WBC 9.0 4.5 - 11.0 1000/mm3 [facility] RBC 5.69(H) 4.2 - 5.4 10X6 [facility] Hemoglobin 16.6(H) 12.0 - 16.0 gm/dl [facility] Hematocrit 47.6 36.0 - 48.0 % [facility] MCV 83.7 80.0 - 99.0 fl [facility] MCH 29.2 25.0 - 31.0 pg [facility] MCHC 34.9 32.0 - 36.0 gm/dl [facility] RDW 13.6 11.5 - 14.5 % [facility] Platelet Count 320 130.0 - 400.0 1000/mm3 [facility] Granulocytes % 61.2 40.0 - 70.0 % [facility] Lymphocytes % 30.2 22.0 - 40.0 % [facility] Monocytes % 6.3 2.0 - 10.0 % [facility] Eosinophils % 2.0 0.0 - 6.0 % [facility] Basophils % 0.3 0.0 - 3.0 % [facility] Granulocytes Absolute 5.49 1.8 - 7.7 [facility] Lymphocytes Absolute 2.71 1.0 - 5.4 [facility] Monocytes Absolute 0.57 0.1 - 1.1 [facility] Eosinophils Absolute 0.18 0.0 - 0.7 [facility] Basophils Absolute 0.03 0.0 - 0.2 [facility] Comment Manual Diff Not Indicated [facility] BLOOD SPECIMEN / Unknown 03/15/2009 2:10 PM CDT 03/15/2009 2:51 PM CDT Narrative [facility] - 03/15/2009 3:03 PM CDT Perform if Urine HCG is Positive Arnel Michael MD LAB - HEMATOLOGY ORD ERABLES Performing Organization Address [facility] Co de Phone Number [facility] [address] [place] [address] * HCG URINE QUALITATIVE - POINT OF CARE (03/15/2009 1:35 PM CDT) HCG Qual Urine Postive Negative [facility] POCT [facility] QC Verified Yes Yes [facility] POC T TESTING Urine specimen (specimen) URINE / Unknown 03/15/2009 1:35 PM CDT Arnel Michael MD LAB - POINT OF CARE ORDERABLES Performing Organization Address [facility] de Phone Number [facility] [address] [place] [address] documented in this encounter Visit Diagnoses Diagnosis Threatened , antepartum (HCC) Threatened , antepartum documented in this encounter Administered Medications Inactive Administered Medications - up to 3 most recent administrations Medication Order MAR Action Action Date Dose Rate Site 0.9% nacl infusion at 200 mL/hr, Intravenous, CONTINUOUS PRN, Other, Administer for unstable orthostatic vital signs, Starting on Sun03/15/09 at 1259, Until Sun03/16/09 at 0554 $ New Bag/Syringe 03/15/2009 3:26 PM CDT 200 mL/hr acetaminophen (TYLENOL) tablet 1 dose, Starting on Sun03/15/09 at 1523, Until Sun03/15/09 at 1524, BELA HOLLIDAY: Cabinet Override $ Given 03/15/2009 3:30 PM CDT documented in this encounter Active and Recently Administered Medications Times are shown in CDT. PRN Medication Order 03/13/2009 03/14/2009 03/15/2009 0.9% nacl infusion (CANCELED) at 200 mL/hr, Intravenous, CONTINUOUS PRN, Other, Administer for unstable orthostatic vital signs, Starting on Sun03/15/09 at 1259, Until Sun03/16/09 at 0554 1526 ($ New Bag/Syri nge - Provider: Bela Holliday RN) No Frequency Medication Order 03/13/2009 03/14/2009 03/15/2009 acetaminophen (TYLENOL) tablet (COMPLETED) 1 dose, Starting on Sun03/15/09 at 1523, Until Sun03/15/09 at 1524, BELA HOLLIDAY Cabinet Override 1530 ($ Given - Prov ider: Bela Holliday RN) documented in this encounter Care Teams Emergency Service Worker Relationship Specialty Start Date End Date Dionicio Colindres DO [address] [place] [address] PCP - General 03/15/09 02/06/10 documented as of this encounter
--- OUTSIDE RECORDS SUMMARY | 2024-08-03 01:38 | XMS_ITS | Encounter Summary ---
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 Pt states she feels very nausiated, sent here from pcp office. Encounter Details Date Type Department Care Team (Late st Contact Info) Description 02/07/2010 1:22 PM CDT - 02/07/2010 8:28 PM CDT Emergency ER at [address] [address] Musa Palmer MD [address] [facility] [place] [address] RLQ Abdominal Pain; Periumbilical Abdominal Pain Discharge Disposition: Home or Self Care Social [...] Sign Reading Time Taken Comments Blood Pressure 121/71 02/07/2010 7:42 PM CDT Pulse 63 02/07/2010 7:42 PM CDT Temperature 36.9 ??C (98.5 ??F) 02/07/2010 1:34 PM CD T Respiratory Rate 20 02/07/2010 1:34 PM CDT Oxygen Saturation 100% 02/07/2010 7:42 PM CDT Inhaled Oxygen Concentration - - Weight 113.4 kg (250 lb) 02/07/2010 1:34 PM CDT Height 167.6 cm (5' 6 ) 02/07/2010 1:34 PM CDT Body Mass Index 40.35 02/07/2010 1:34 PM CDT documented in this encounter Discharge Instructions * Discharge Instructions* Sarah Capellan PA - 02/07/2010 7:17 PM CDT Abdominal Pain Abdominal (belly) pain can be caused by many things. Your caregiver decides the seriousness of yourpain by an examination and possibly blood tests and x-rays. Many cases can be observed and treated at home. Most abdominal pain in children is functional. This means it is not caused by a disease andwill probably improve without treatment. HOME CARE INSTRUCTIONS: ?? Do not take or give laxatives unless directed by your caregiver. Take pain medication only if ordered by your caregiver. Try a clear liquid diet - broth, jello-water, tea, or water as ordered by your caregiver. Slowly move to a bland diet as tolerated. seek immediate medical attention if: ?? The pain does not go away. An oral temperature above 102?? F (38.9?? C) develops or as directed by your caregiver. Repeated vomiting occurs. The pain is felt only in portions of the abdomen. The right side could possibly be appendicitis. Inan adult, the left lower portion of the abdomen could be colitis or diverticulitis. Blood is being passed in stools (bright red or black tarry stools). AGREEMENT BETWEEN PATIENT AND HEALTHCARE TEAM: Your signature on this document represents an understanding between you and the healthcare team that took care of you today. That means that you: ?? Understand these discharge instructions. Will monitor your condition. Will seek immediate medical attention as instructed. Document Released: 07/30/2006 Document Re-Released: 05/16/2007 ExitCare?? Patient Information ??2009 [email or web address]. * Discharge Instructions* Document, Scanned - 02/07/2010 12:00 AM CDT documented in this encounter Medications at Time of Discharge Medication Sig Dispensed Refills Start Date End Date hydrocodone-acetaminophen (NORCO) 5-325 MG tablet Take 1 Tab by mouth every 4 hours as needed for Pain. 08/22/2010 ibuprofen (MOTRIN) 800 MG tablet Take 1 Tab by mouth 3 times daily as needed for Pain. 15 0 02/07/2010 08/22/2010 methylergonovine (METHERGINE) 0.2 MG tablet Take 0.2 mg by mouth every 8 hours. 02/16/2010 promethazine (PHENERGAN) 25 MG tablet Take 1 Tab by mouth every 6 hours as needed for Nausea/Vomiting. 10 0 02/07/2010 02/16/2010 tramadol (ULTRAM) 50 MG tablet Take 1 Tab by mouth every 4 hours as needed for Pain. 15 0 02/07/2010 02/17/2010 documented as of this encounter ED Notes * Deanne Snowden - 02/07/2010 3:58 PM CDT Patient returned from ultrasound. Awaiting for pelvic exam. * Sarah Capellan PA - 02/07/2010 2:09 PM CDT 02/07/2010 2:09 PM History Chief Complaint Patient presents with ??? Pain Abdominal Pt c/o abdominal cramping x 1 week, sharp pain to RLQ and Mid abd pain x 2-3 days. Pt states she feels very nausiated, sent here from pcp office. HPI Comments: Pt c/o sharp, intermittent periumbilical abd pain w/ nausea, dizziness for the past week, pain now in RLQ. She says it feels like it is going to explode (as she points to RLQ.) She saw Dr. Alex mason AM who sent her to ER to be evaluated. SHe denies vomiting, constipation, diarrhea, back pain, vag bleeding or d/c. She is trying to get , LMP 2 months ago, period sporadic pastyear. Past Medical History Diagnosis Date ??? POLYCYSTIC OVARIES ??? HYPERLIPIDEMIA Past Surgical History Procedure Date ??? Tympanoplasty [...] outpatient prescriptions Medication Sig Dispense Refill ??? tramadol (ULTRAM) 50 MG tablet Take 1 Tab by mouth every 4 hours as needed for Pain. 15 0 ??? ibuprofen (MOTRIN) 800 MG tablet Take 1 Tab by mouth 3 times daily as needed for Pain. 15 0 ??? promethazine (PHENERGAN) 25 MG tablet Take 1 Tab by mouth every 6 hours as needed for Nausea/Vomiting. 10 0 ??? methylergonovine (METHERGINE) 0.2 MG tablet Take 0.2 mg by mouth every 8 hours. ??? hydrocodone-acetaminophen (NORCO) 5-325 MG tablet Take 1 Tab by mouth every 4 hours as needed for Pain. Review of Systems All other systems reviewed and are negative. BP 121/71 Pulse 63 Temp 98.5 ??F Resp 20 Wt 250 lb (113.399 kg) Physical Exam Nursing note and vitals reviewed. Constitutional: She is oriented and well-developed, well-nourished, and in no distress. She appearsnot diaphoretic. No distress. HENT: Head: Normocephalic and atraumatic. Eyes: Conjunctivae are normal. Pupils are equal, round, and reactive to light. Neck: Neck supple. Cardiovascular: Normal rate, regular rhythm and normal heart sounds. Exam reveals no gallop and no friction rub. No murmur heard. Pulmonary/Chest: Effort normal and breath sounds normal. No respiratory distress. She has no wheezes. She has no rales. She exhibits no tenderness. Abdominal: Bowel sounds are normal. She exhibits no distension and no mass (symone). Soft. Tenderness(RLQ) is present. She has rebound. She has no guarding. Neurological: She is alert and oriented. GCS score is 15. Skin: Skin is warm and dry. No rash noted. She is not diaphoretic. Psychiatric: Affect normal. EKG Interpretation Lab/SPO2 Interpretation US PELVIS W/TRANSVAG AND DOPPLER Final Result: Normal pelvic ultrasound. CT ABDOMEN WWO PELVIS W CONT Final Result: CT the abdomen and pelvis demonstrates no acute inflammatory process. This examination was transcribed using the [employer] voice recognition system without human cash management associate. In an effort to expedite patient care, this report has not been adjusted for typographical, grammatical, and syntax by a trained vice president medical affairs. CT ABDOMEN WITH IV CONTRAST (Results Pending) US PELVIS WITH TRANSVAG NON OB (Results Pending) Medical Decision Making ED Plan/Course: Received care of patient from Melinda Russo. Pt with 1 week hx of intermittent periumbilical pain with onset of RLQ pain today. Labs wnl. Pelvic US negative. CT scan negative. On repeat exam BS present, abdomen soft, nondistended with periumbilical and RLQ tenderness. No guarding. Mild rebound. Obuturator, Psoas, and heel strike negative. Pt given toradol and dilaudid prior to discharge with improvement in pain. Case was reviewed with Dr. Mellisa Johnson. Recommends ibuprofen and ultram at discharge. He will see pt in office tomorrow for repeat evaluation. Pt instructed to return toED if condition worsens. Diagnosis Encounter Diagnoses Name Primary? RLQ Abdominal Pain ??? Periumbilical Abdominal Pain * Isabella Holloway RN - 02/07/2010 1:58 PM CDT Pt. Came to ED room 30 with c/c of stomach pain for 7-10 days but has gotten worse so went to doctor and PCP sent her over for right lower quadrant pain. Denies any vomiting and diarrhea. Feels nausea. Pt. Is AxOx3. No signs of respiratory distress. Will continue to monitor. documented in this encounter Miscellaneous Notes * Miscellaneous Scans - Document, Scanned - 02/07/2010 12:00 AM CDT documented in this encounter Plan of Treatment Not on file documented as of this encounter Procedures Procedure Name Priority Date/Time Associated Diagnosis Comments CT ABDOMEN WWO PELVIS W CONT STAT 02/07/2010 5:58 PM CDT RLQ Abdominal Pain CHLAMYDIA + GC AMPLIFIED PROBE STAT 02/07/2010 5:21 PM CDT WET PREP SMEAR STAT 02/07/2010 5:21 PM CDT US PELVIS W TRANSVAG W DOP NON OB STAT 02/07/2010 3:49 PM CDT RLQ Abdominal Pain URINALYSIS REFLEX TO MICROSCOPIC NO CULTURE STAT 02/07/2010 2:23 PM CDT CBC W AUTO DIFFERENTIAL STAT 02/07/2010 2:20 PM CDT COMPREHENSIVE METABOLIC PANEL STAT 02/07/2010 2:20 PM CDT LIPASE BLOOD STAT 02/07/2010 2:20 PM CDT HCG BLOOD QUALITATIVE STAT 02/07/2010 2:20 PM CDT HCG URINE QUALITATIVE - POINT OF CARE STAT 02/07/2010 2:02 PM CDT documented in this encounter Results * CT ABDOMEN WWO PELVIS W CONT (02/07/2010 5:58 PM CDT) Anatomical Region Laterality Modality Abdomen, Pelvis Computed Tomogra phy 02/07/2010 6:00 PM CDT Impressions 02/07/2010 6:[address] the abdomen and pelvis demonstrates no acute inflammatory process. This examination was transcribed using the [employer] voice recognition system without human cash management associate. ??In an effort to expedite patient care, this report has not been adjusted for typographical, grammatical, and syntax by a trained vice president medical affairs. ?? Narrative 02/07/2010 6:02 PM CDT Indication: [...] process. This examination was transcribed using the [employer] voice recognition system without human cash management associate. In an effort to expedite patient care, this report has not been adjusted for typographical, grammatical, and syntax by a trained vice president medical affairs. Rolando ANDREW CT ORDERABLES * WET PREP SMEAR (02/07/2010 5:21 PM CDT) Trichomonas Rapid Test None Detected [facility] PART OF UTERINE CERVIX / Unknown 02/07/2010 5:21 PM CDT 02/07/2010 5:21 PM CDT Rolando ANDREW LAB - MICROBIOLOGY O RDERABLES [facility] [address] [place] [address] * CHLAMYDIA + GC DNA PROBE AMPLIFIED (02/07/2010 5:21 PM CDT) GC Amplified Probe NEGATIVE [facility] Chlamydia trachomatis Amplified Probe NEGATIVE [facility] Comment Amplified Probe [facility] Comment: ? Results based on detection/no detection of ribosomal ? RNA by amplified method. ENTIRE ENDOCERVIX / Unknown 02/07/2010 5:21 PM CDT 02/07/2010 5:21 PM CDT Narrative Resulting Agency Comment Performed By [facility] - [facility] ? [address] ? [place] [address] Rolando ANDREW LAB - MICROBIOLOGY O RDERABLES Performing Organization Address City/State/[facility] Co de Phone Number [facility] [address] [place] [address] * US PELVIS W/TRANSVAG AND DOPPLER (02/07/2010 3:49 PM CDT) Anatomical Region Laterality Modality Pelvis Ultrasound 02/07/2010 3:55 PM CDT Impressions 02/07/2010 3:57 PM CDT [...] (02/07/2010 2:23 PM CDT) Color UA YELLOW [facility] Character UA CLEAR [facility] Specific [place] UA 1.007 1.005 - 1.0300 [facility] pH UA 6.0 4.6 - 8.0 pH Units [facility] Leukocyte UA NEGATIVE Negative /ul [facility] Nitrite UA NEGATIVE Negative [facility] Protein UA NEGATIVE Negative mg/dl [facility] Glucose UA NEGATIVE Normal mg/dl [facility] Ketone UA NEGATIVE Negative mg/dl [facility] Urobilinogen UA 0.2 Normal Valorie Units [facility] Bilirubin UA NEGATIVE Negative mg/dl [facility] Blood UA NEGATIVE Negative /ul [facility] WBC UA <5 /HPF [facility] RBC UA <5 /HPF [facility] Epithelial Cell UA <5 /HPF [facility] Casts UA <2 /LPF [facility] Bacteria UA NEGATIVE [facility] URINE SPECIMEN OBTAINED BY CLEAN CATCH PROCEDURE / Unknown 02/07/2010 2:23 PM CDT 02/07/2010 2:23 PM CDT Romain Barreto MD LAB - URINALYSIS ORD ERABLES Performing Organization Address [facility] de Phone Number [facility] [address] [place] [address] * HCG BLOOD QUALITATIVE (02/07/2010 2:20 PM CDT) Pathologist [facility] HCG Qual Serum Not Detected Not Detected [facility] BLOOD SPECIMEN / Unknown 02/07/2010 2:20 PM CDT 02/07/2010 2:46 PM CDT Rolando ANDREW LAB - CHEMISTRY [facility] Performing Organization Address [facility] de Phone Number [facility] [address] [place] [address] * LIPASE BLOOD (02/07/2010 2:20 PM CDT) [facility] Lipase 155 23.0 - 300.0 U/L [facility] BLOOD SPECIMEN / Unknown 02/07/2010 2:20 PM CDT 02/07/2010 2:23 PM CDT Romain Barreto MD LAB - CHEMISTRY [facility]IZA [facility] Performing Organization Address [facility] de Phone Number [facility] [address] [place] [address] * (ABNORMAL) COMPREHENSIVE METABOLIC PANEL (02/07/2010 2:20 PM CDT) Pathologist [facility] BUN 8 7.0 - 17.0 mg/dl [facility] Sodium 142 137 - 145 mmol/L [facility] Potassium 3.9 3.6 - 5.0 mmol/L [facility] Chloride 103 98.0 - 107.0 mmol/L [facility] Glucose 89 75 - 110 mg/dl [facility] Creatinine 0.8 0.52 - 1.05 mg/dl [facility] AST 33 14.0 - 36.0 U/L [facility] Alkaline Phosphatase 114 38.0 - 126.0 U/L [facility] Calcium 9.6 8.4 - 10.2 mg/dl [facility] Bilirubin Total 0.5 0.2 - 1.3 mg/dl [facility] Albumin 4.9 3.5 - 5.0 gm/dl [facility] Protein Total 8.5(H) 6.3 - 8.2 gm/dl [facility] CO2 26 22.0 - 30.0 mEq/L [facility] ALT 34 9.0 - 52.0 U/L [facility] eGFR by MDRD 88.12 ml/min/1.7 3m2 [facility] BLOOD SPECIMEN / Unknown 02/07/2010 2:20 PM CDT 02/07/2010 2:23 PM CDT Romain Barreto MD LAB - CHEMISTRY [facility]A [facility] Organization Address City/State/[facility] Co de Phone Number [facility] [address] [place] [address] * (ABNORMAL) CBC W AUTO DIFFERENTIAL (02/07/2010 2:20 PM CDT) WBC 9.0 4.5 - 11.0 1000/mm3 [facility] RBC 5.42(H) 4.2 - 5.4 10X6 [facility] Hemoglobin 15.7 12.0 - 16.0 gm/dl [facility] Hematocrit 45.8 36.0 - 48.0 % [facility] MCV 84.5 80.0 - 99.0 fl [facility] MCH 29.0 25.0 - 31.0 pg [facility] MCHC 34.3 32.0 - 36.0 gm/dl [facility] RDW 13.6 11.5 - 14.5 % [facility] Platelet Count 260 130.0 - 400.0 1000/mm3 [facility] Granulocytes % 58.7 40.0 - 70.0 % [facility] Lymphocytes % 33.1 22.0 - 40.0 % [facility] Monocytes % 6.3 2.0 - 10.0 % [facility] Eosinophils % 1.7 0.0 - 6.0 % [facility] Basophils % 0.2 0.0 - 3.0 % [facility] Granulocytes Absolute 5.27 1.8 - 7.7 [facility] Lymphocytes Absolute 2.97 1.0 - 5.4 [facility] Monocytes Absolute 0.57 0.1 - 1.1 [facility] Eosinophils Absolute 0.15 0.0 - 0.7 [facility] Basophils Absolute 0.02 0.0 - 0.2 [facility] Comment Manual Diff Not Indicated [facility] BLOOD SPECIMEN / Unknown 02/07/2010 2:20 PM CDT 02/07/2010 2:23 PM CDT Romain Barreto MD LAB - HEMATOLOGY ORD ERABLES Performing Organization Address City/[facility]/ZIP Co de Phone Number [facility] [address] [place] [address] * HCG URINE QUALITATIVE - POINT OF CARE (02/07/2010 2:02 PM CDT) HCG Qual Urine neg Negative [facility] QC Verified yes Yes [facility] POC T TESTING Urine specimen (specimen) URINE / Unknown Rolando ANDREW LAB - POINT OF CARE ORDERABLES Performing Organization Address City/[facility] Co de Phone Number [facility] [address] [place] [address] documented in this encounter Visit Diagnoses Diagnosis RLQ abdominal pain Abdominal pain, right lower quadrant Periumbilical abdominal pain Abdominal pain, periumbilic documented in this encounter Administered Medications Inactive Administered Medications - up to 3 most recent administrations Medication Order MAR Action Action Date Dose Rate Site 0.9% nacl injection 1-10 mL 1-10 mL, Intracatheter, PRN, Other, Starting on Sun02/07/10 at 1336, Until Sun02/08/10 at 0828 $ Given 02/07/2010 2:34 PM CDT 10 mL HYDROmorphone (DILAUDID) injection 1 mg 1 mg, Intravenous, ONCE, 1 dose, On Sun02/07/10 at 1945 $ Given 02/07/2010 7:42 PM CDT 1 mg iohexol (OMNIPAQUE 350) contrast Intravenous, CONTRAST ONCE, Starting on Sun02/07/10 at 1722, Until Sun02/08/10 at 0828 $ Given 02/07/2010 5:58 PM CDT 100 mL ketorolac (TORADOL) injection 30 mg 30 mg, Intravenous, ONCE, 1 dose, On Sun02/07/10 at 1830 $ Given 02/07/2010 6:51 PM CDT 30 mg morphine injection 4 mg 4 mg, Intravenous, ONCE, 1 dose, On Sun02/07/10 at 1415 $ Given 02/07/2010 2:34 PM CDT 4 mg morphine injection 4 mg 4 mg, Intravenous, ONCE, 1 dose, On Sun02/07/10 at 1545 $ Given 02/07/2010 4:07 PM CDT 4 mg ondansetron (ZOFRAN) injection 4 mg 4 mg, Intravenous, ONCE, 1 dose, On Sun02/07/10 at 1415 $ Given 02/07/2010 2:34 PM CDT 4 mg documented in this encounter Active and Recently Administered Medications Times are shown in CDT. Scheduled Medication Order 02/05/2010 02/06/2010 02/07/2010 HYDROmorphone (DILAUDID) injection 1 mg (COMPLETED) 1 mg, Intravenous, ONCE, 1 dose, On Sun02/07/10 at 1945 1942 ($ Given - Prov ider: Della Meza RN - Comment: 02/19) iohexol (OMNIPAQUE 350) contrast (CANCELED) Intravenous, CONTRAST ONCE, Starting on Sun02/07/10 at 1722, Until Sun02/08/10 at 0828 1758 ($ Given - Prov ider: Rob Fraire, RT(R)) ketorolac (TORADOL) injection 30 mg (COMPLETED) 30 mg, Intravenous, ONCE, 1 dose, On Sun02/07/10 at 1830 1851 ($ Given - Prov ider: Della Meza RN - Comment: 02/19) morphine injection 4 mg (COMPLETED) 4 mg, Intravenous, ONCE, 1 dose, On Sun02/07/10 at 1415 1434 ($ Given - Prov ider: Janice Gilmore, JACK) morphine injection 4 mg (COMPLETED) 4 mg, Intravenous, ONCE, 1 dose, On Sun02/07/10 at 1545 1607 ($ Given - Prov ider: Karissa Deal, JACK) ondansetron (ZOFRAN) injection 4 mg (COMPLETED) 4 mg, Intravenous, ONCE, 1 dose, On Sun02/07/10 at 1415 1434 ($ Given - Prov ider: Janice Gilmore, RN) PRN Medication Order 02/05/2010 02/06/2010 02/07/2010 0.9% nacl injection 1-10 mL (CANCELED) 1-10 mL, Intracatheter, PRN, Other, Starting on Sun02/07/10 at 1336, Until Sun02/08/10 at 0828 1434 ($ Given - Prov ider: Janice Gilmore, JACK) documented in this encounter Care Teams Ton Container Shipper Relationship Specialty Start Date End Date Mellisa Johnson DO OIG SANCTIONED!! DO NOT USE!! PCP - General 02/07/10 documented as of this encounter
--- OUTSIDE RECORDS SUMMARY | 2024-08-03 01:38 | XMS_ITS | Encounter Summary ---
Author Organization [facility] Address [address] [place] [address] [address] [place] [address] Phone Care Team Providers Care Medical Staff Credentialing Coordinator Name Role Phone Daisha Staley MD Primary Care Provider + Encounter Details Date Type Department Care Team (Late st Contact Info) Description 03/27/2023 Orders Only [address] [place] [address] Rolando Lang, BONE GRINDER [address] [place] [address] Social History Tobacco Use Types Packs/Day Years Used Date Smoking Tobacco: Every Day Cigarettes 12 Started: 2012 Smokeless Tobacco: Never AUDIT-C [...] on file Legal Sex Female 4:23 PM [employer] Gender Identity Not on file Sexual Orientation Not on file documented as of this encounter Plan of Treatment Not on file documented as of this encounter Visit Diagnoses Not on filedocumented in this encounter Care Teams Medical Staff Credentialing Coordinator Relationship Specialty Start Date End Date Daisha Staley MD [address] Brett MON [address] [place] [id number] PCP - General Internal Medicine 02/06/23 documented as of this encounter
--- OUTSIDE RECORDS SUMMARY | 2024-08-03 01:38 | XMS_ITS | Encounter Summary ---
Author Organization [facility] Clinical [facility] Address [address] [facility] [address] [place] [address] Phone Care Team Providers Care Account Resolution Analyst Name Role Phone Daisha Staley MD Primary Care Provider + Reason for Referral * Consultation (Routine) - Denied Specialty Diagnoses / Procedures Referred By Reva holbrook Referred To Contact Hematology Diagnoses Lymphadenopathy Daisha Staley MD [address] [place], [place] [address] [place] [address] Phone: tel: fax: [facility] Hematology [address] [facility] 8th [place] [address] [place] [address] Phone: tel: fax: Referral ID Status Reason Start Date Expiration Date V isits Requested Visits Authorized [id number] Denied Specialty Services Required 07/25/2023 08/23/2024 1 0 Question Answer Please select the performing region: [facility] (All Locations) [[id number]] Please select the performing department: [facility] HEM CAM 8B [[id number]] # of visits: 1 SFORCE TRAINER * Consultation (Routine) - Authorized Specialty Diagnoses / Procedures Referred By Reva holbrook Referred To Contact Rheumatology Diagnoses Psoriatic arthritis (HCC) [facility] [address] [place] [address] Phone: tel: fax: [facility] (All Locations) Referral ID Status Reason Start Date Expiration Date Visits Requested Visits Authorized [id number] Authorized Specialty Services Required 3 08/23/2024 1 1 Question Answer Please select the performing region: [facility] (All Locations) [[id number]] Service Line General Rheumatology # of visits: 1 SFORCE TRAINER Reason for Visit * Reason Comments Follow-up Encounter Details Date Type Department Care Team (Late st Contact Info) Description 07/25/2023 9:30 AM SALESFORCE TRAINER Office Visit [address] [address] Daisha Staley MD [address] [place] [address] [address] [place] [address] Lymphadenopathy (Primary Dx); Psoriatic arthritis (HCC); Tobacco use Social History Tobacco Use Types [...] on file Legal Sex Female 4:23 PM SALESFORCE TRAINER Gender Identity Not on file Sexual Orientation Not on file documented as of this encounter Last Filed Vital Signs Vital Sign Reading Time Taken Comments Blood Pressure 122/84 07/25/2023 8:53 AM SALESFORCE TRAINER Pulse 84 07/25/2023 8:53 AM SALESFORCE TRAINER Temperature - - Respiratory Rate - - Oxygen Saturation 98% 07/25/2023 8:53 AM SALESFORCE TRAINER Inhaled Oxygen Concentration - - Weight 97.8 kg (215 lb 11.2 oz) 07/25/2023 8:53 AM SALESFORCE TRAINER Height 167.6 cm (5' 6 ) 07/25/2023 8:53 AM SALESFORCE TRAINER Body Mass Index 34.81 07/25/2023 8:53 AM SALESFORCE TRAINER documented in this encounter Ordered Prescriptions Prescription Sig Dispense Quantity Refills Last Filled Start Date End Date buPROPion XL (WELLBUTRIN XL) 150 mg 24 hr tabletIndications: Tobacco use Take 1 tablet (150 mg total) by mouth every morning 90 tablet 07/25/2023 4 documented in this encounter Progress Notes * Daisha Staley MD - 07/25/2023 9:30 AM CST Subjective/Objective Patient ID: Vera Vitale is a 38 y.o. female. Chief Complaint Follow-up Ms. Vitale is here today for follow up. She notes she has had worsening lymphadenopathy recently. She has had benign biopsy in the past, and had been following with hematology, but feels she would like to transition to [facility]. She denies any fevers, chills, night sweats, weight loss currently. She had been on high dose steroid previously for an inflammatory arthropathy, but stopped this as shefelt it wasn't helping. 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 She otherwise notes she would like to quit smoking, as she realizes this is not helping her. She has not tried anything in the past, but is motivated to quit. Review of Systems Constitutional: Negative for chills, fatigue and fever. Respiratory: Negative for cough, chest tightness and shortness of breath. Cardiovascular: Negative for chest pain, palpitations and leg swelling. Gastrointestinal: Negative for abdominal pain, diarrhea, nausea and vomiting. Musculoskeletal: Negative for back pain. Skin: Negative for rash. Neurological: Negative for dizziness, weakness, light-headedness, numbness and headaches. Hematological: Positive for adenopathy. Physical Exam Vitals reviewed. Constitutional: Appearance: Normal [...] Diagnoses and all orders for this visit: Lymphadenopathy (R59.1) (Primary) Assessment & Plan: Has had lymph node dissection in the past, with benign pathology, notes worsening again, especiallysince off steroids. Will refer to hematology for further evaluation. Orders: - Ambulatory referral to Hematology; Future - CBC with auto differential; Future Psoriatic arthritis (HCC) (L40.50) Assessment & Plan: Patient transitioning care to [facility], had been on steroids and leflunomide, stopped on her own, feels her symptoms are stable. Will refer to rheumatology. Orders: - Ambulatory referral to Rheumatology; Future Tobacco use (Z72.0) Assessment & Plan: We discussed the risks of smoking including cardiovascular disease, pulmonary disease, osteoporosisand cancer risks. We talked about reducing risks through smoking cessation. We reviewed approaches to quitting smoking including behavioral changes; nicotine replacement with gums, patches, lozenges; medications such as buproprion or chantix. I also gave resources such as [facility] smoking cessation clinic and 3-231-DGFZ-NOW for additional support. I spent 4 minutes discussing smoking and smoking cessation. Rx for bupropion sent. Orders: - buPROPion XL (WELLBUTRIN XL) 150 mg 24 hr tablet; Take 1 tablet (150 mg total) by mouth every morning SFORCE TRAINER documented in this encounter Miscellaneous Notes * Assessment & Plan Note - Daisha Staley MD - 07/25/2023 9:25 AM SALESFORCE TRAINER Associated Problem(s): Lymphadenopathy Has had lymph node dissection in the past, with benign pathology, notes worsening again, especiallysince off steroids. Will refer to hematology for further evaluation. SFORCE TRAINER * Assessment & Plan Note - Daisha Staley MD - 07/25/2023 9:24 AM SALESFORCE TRAINER Associated Problem(s): Tobacco use We discussed the risks of smoking including cardiovascular disease, pulmonary disease, osteoporosisand cancer risks. We talked about reducing risks through smoking cessation. We reviewed approaches to quitting smoking including behavioral changes; nicotine replacement with gums, patches, lozenges; medications such as buproprion or chantix. I also gave resources such as [facility] smoking cessation clinic and 8-644-UPVN-NOW for additional support. I spent 4 minutes discussing smoking and smoking cessation. Rx for bupropion sent. SFORCE TRAINER * Assessment & Plan Note - Daisha Staley MD - 07/25/2023 9:24 AM SALESFORCE TRAINER Associated Problem(s): Psoriatic arthritis (HCC) Patient transitioning care to [facility], had been on steroids and leflunomide, stopped on her own, feels her symptoms are stable. Will refer to rheumatology. SFORCE TRAINER documented in this encounter Plan of Treatment Scheduled Orders Name Type Priority Associated Diagnoses Orde r Schedule CBC with auto differential Lab Routine Lymphadenopathy Expected: 07/25/2023, Expires: 07/25/2024 Scheduled Referrals Name Type Priority Associated Diagnoses Order Schedule Ambulatory referral to Rheumatology Outpatient Referral Routine Psoriatic arthritis (HCC) Expected: 08/08/2023 (Approximate), Expires: 07/25/2024 Ambulatory referral to Hematology Outpatient Referral Routine Lymphadenopathy Expected: 08/08/2023 (Approximate), Expires: 07/25/2024 documented as of this encounter Visit Diagnoses Diagnosis Lymphadenopathy- Primary Enlargement of lymph nodes Psoriatic arthritis (HCC) Psoriatic arthropathy Tobacco use documented in this encounter Discontinued Medications Medication Sig Discontinue Reason Start Date End Da te predniSONE (DELTASONE) 10 mg tablet PLEASE SEE ATTACHED FOR DETAILED DIRECTIONS 01/07/2023 07/25/2023 leflunomide (ARAVA) 10 mg tablet Take 1 tablet (10 mg total) by mouth daily 01/07/2023 07/25/2023 documented as of this encounter Care Teams Account Resolution Analyst Relationship Specialty Start Date End Date Daisha Staley MD [address] [address] [place] [id number] PCP - General Internal Medicine 02/06/23 documented as of this encounter
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
--- OUTSIDE RECORDS SUMMARY | 2024-08-03 01:38 | XMS_ITS | Encounter Summary ---
Author Organization [facility] Health Address [address] [place] [address] Care Team Providers Care Diabetes Nurse Name Role Phone Mellisa Johnson DO Primary Care Provider Unavailabl e Encounter Details Date Type Department Care Team (Late st Contact Info) Description 02/11/2010 6:08 PM CDT - 02/16/2010 3:45 PM CDT Hospital Encounter [facility] General Med [address] [place] [address] John Aldridge MD [place] [address] [address] [address] [place] [address] [place] [id number] [facility] [address] [place] [address] Surgery General Discharge Disposition: Home or Self [...] Sign Reading Time Taken Comments Blood Pressure 114/72 02/16/2010 2:30 PM CDT Pulse 52 02/16/2010 2:30 PM CDT Temperature 36.8 ??C (98.3 ??F) 02/16/2010 2:30 PM CD T Respiratory Rate 18 02/16/2010 2:30 PM CDT Oxygen Saturation 98% 02/16/2010 2:30 PM CDT Inhaled Oxygen Concentration - - Weight 112.4 kg (247 lb 14.4 oz) 02/11/2010 7:11 PM CDT Height 167.6 cm (5' 6 ) 02/11/2010 7:11 PM CDT Body Mass Index 40.01 02/11/2010 7:11 PM CDT documented in this encounter Discharge Summaries * Mak Graf MD - 02/16/2010 6:01 PM CDT Hospitalist Discharge Summary Vera Purdy Primary care physician Mellisa Johnson DO Admit date: 02/11/2010 Discharge date: 02/16/2010 Discharge Physician: Mak Graf MD The patient is a 24-year-old female with obesity who was doing alright until one 1 to 1-1/2 weeks ago when she started noticing upper abdominal pain mainly on the right side which she describes as severe, sharp pain occurring intermittently, radiating to the right side of the abdomen. Thepain had initially started in the mid abdomen and finally localized to the right abdomen. This has been associated with nausea which is present all the time. The patient has not had any fevers or chills but has had waxing and waning severity of the pain. She has been treated by primary care physician's office with oral medicines and a recent gallbladder ultrasound showed multiple gallstones with a gallstone in the neck of the gallbladder as well. She was supposed to have seen Dr. Saeed as an outpatient; however, started having increasing pain today and was directly admitted for pain controland surgical evaluation. Discharge Diagnoses/ Hospital course Patient seen and examined today, vitals and labs reviewed ,d/w pt and family. Feels better,incisional discomfort improving,ready to go home today. Tolerated po well,ambulated. BP 114/72 Pulse 52 Temp 98.3 ??F Resp 18 Wt 112.447 kg (247 lb 14.4 oz) Exam General appearance: alert, cooperative, no distress Lungs: breath sounds normal and symmetric; no rales or wheezes Heart: regular rhythm, normal S1 and S2, without murmurs, gallops or rubs Abdomen: soft without mass, lap clemente incisions ok,BS present Extremities: no clubbing, cyanosis or edema Skin: no rashes or other abnormalities are noted Neurologic: mental status normal; alert and oriented X 3; cranial nerves II - XII are grossly intact Labs,meds and notes reviewed. Assessment and Plan 1. Cholelithiasis with progressive symptoms including pain and nausea/probable acute cholecystitis S/p lap cholecystectomy 2. Morbid obesity. The patient was advised weight reduction. 3. Tobacco abuse. The patient was advised to quit cigarette smoking and risk factors were discussedwith her. Start nicotine patch. Home today Consults General surgery Meghan Trujillo Diagnostic Studies radiology: CXR negative Recent US multiple gall stones Procedures Laparoscopic cholecystectomy. Patient Instructions Discharge Medication List as of 02/16/2010 2:51 PM START taking these medications docusate sodium (COLACE) 100 MG capsule 100 mg, Oral, 2 TIMES DAILY starting 02/16/2010, Disp-10, R-per pmd, Print, Take 1 Cap by mouth 2 times daily. CONTINUE these medications which have NOT CHANGED tramadol (ULTRAM) 50 MG tablet 50 mg, Oral, EVERY 4 HOURS PRN starting 02/07/2010 until 02/17/2010, Disp-15, R-0, Print, Take 1 Tab by mouth every 4 hours as needed for Pain. ibuprofen (MOTRIN) 800 MG tablet 800 mg, Oral, 3 TIMES DAILY PRN starting 02/07/2010, Disp-15, R-0, Print, Take 1 Tab by mouth 3 times daily as needed for Pain. hydrocodone-acetaminophen (NORCO) 5-325 MG tablet 1 Tab, Oral, EVERY 4 HOURS PRN, Historical Medication, Take 1 Tab by mouth every 4 hours as needed for Pain. STOP taking these medications promethazine (PHENERGAN) 25 MG tablet STOP methylergonovine (METHERGINE) 0.2 MG tablet STOP Discharge Procedure Orders PATIENT TO CALL PHYSICIAN FOR APPOINTMENT Follow up with primary care physician in 1 Week MELLISA JOHNSON Bring all medications to next visit.F/u with Dr Radha Trujillo when recommended. REGULAR DIET AT HOME GRADUALLY INCREASE YOUR ACTIVITY AND... Take rest periods as needed. No Smoking, alcohol, drugs Weight loss measures as directed Instructed to seek immediate medical attention if any symptoms worsen or has new symptoms. All the discharge instructions explained in detail to the patient and family. All questions answered. Condition at discharge: good Disposition: Home Code Status At Discharge Full Code Discharge time: greater than 30 minutes. CC Mellisa Johnson DO D/w Dr Johnson documented in this encounter Discharge Instructions * Discharge Instructions* Joyce Galloway RN - 02/16/2010 2:51 PM CDT Discharge Instructions for: Vera Purdy Discharge Procedure Orders PATIENT TO CALL PHYSICIAN FOR APPOINTMENT Follow up with primary care physician in 1 Week MELLISA JOHNSON Bring all medications to next visit.F/u with Dr Radha Trujillo when recommended. REGULAR DIET AT HOME GRADUALLY INCREASE YOUR ACTIVITY AND... Take rest periods as needed. Do not smoke. Avoid second hand smoke The following belonging have been returned to you Clothing Clothing: Yes With Patient: Pants;Shirt (underwear, flip flops) Jewelry Jewelry: None Electronics Electronic Items: Yes With Patient: Cell Phone (and supervisor rough end) Dentures Dentures/Retainers: None Vision Visual Aids: None Hearing Aids Hearing Aids: None Equipment/Assistive Devices Equipment with Patient: None Equipment At Home: None Home Medications Home Medications: Yes Secured: Yes (Nurser will obtain from pharmacy and give to patient.) Miscellaneous Belongings Miscellaneous Items: None With Patient: Books/[place] Monetary Monetary Items: Yes With Patient: Purse (all credit cards/debit cards/check books/ID marichuy Nirmal) .WEIGHT MONITORING - If you have heart failure, weigh yourself every morning. Contact your physician if your weight increases by 3 pounds in 1 day OR 5 pounds in 1 week. WHAT TO DO IF SYMPTOMS WORSEN - Contact your physician if you have shortness of breath/difficulty breathing, or any swelling of your legs, ankles or feet. The discharge and medication instructions have been reviewed with me and my questions have been answered. I have received a copy of the discharge instructions. CALL Dr. Jennifer Trujillo, surgeon, office number [phone] for post op followup. 02/16/2010 * Discharge Instructions* Document, Scanned - 02/11/2010 12:00 AM CDT documented in this encounter Medications at Time of Discharge Medication Sig Dispensed Refills Start Date End Date docusate sodium (COLACE) 100 MG capsule Take 1 Cap by mouth 2 times daily. 10 per pmd 02/16/2010 08/22/2010 hydrocodone-acetaminophen (NORCO) 5-325 MG tablet Take 1 Tab by mouth every 4 hours as needed for Pain. 08/22/2010 ibuprofen (MOTRIN) 800 MG tablet Take 1 Tab by mouth 3 times daily as needed for Pain. 15 0 02/07/2010 08/22/2010 tramadol (ULTRAM) 50 MG tablet Take 1 Tab by mouth every 4 hours as needed for Pain. 15 0 02/07/2010 02/17/2010 documented as of this encounter Progress Notes * Nahun Zaldivar MD - 02/15/2010 11:01 PM CDT Pt alert.Complaints of abdominal pain. VSS Chest: Clear. Heart: RRR Abdomen: Protuberant mildly tender. Bowel sounds audible. Not ambulating much A/P: Discuss with her and to be more active and advance her diet. Pos home in AM * Namrata Pruett RN - 02/15/2010 6:31 PM CDT Shift summary/pt. Tolerated regular diet without n/v;had small amts of mashed potatoes,roll,saltiness,pudding. Thanksnamrata rn * Namrata Pruett RN - 02/15/2010 5:51 PM CDT Shift summary/ up in the halls with boyfriend;gait steady;also Has ambulated well independently. Tolerated vicodin p.o. Earlier w/o n/v;but zofran per pt requested given along with it to prevent vomiting. Regular supper ordered.pt has not finished inorder to determine her tolerance. Voiding well. P.o. Intake good. No bm,no flatus,abd. Soft but mildly swollen from surgery. Thanks namrata,rn * Mak Graf MD - 02/15/2010 3:06 PM CDT IPC PROGRESS NOTE Admit Date: 02/11/2010 6:08 PM Hospital Day: 4 02/15/2010 DO Vera Mancia is a 24 y.o. female SUBJECTIVE: C/o pain mainly incisional. Alert and awake. Did not ambulate No BM yet,tolerating liquids. Data Vitals: 02/14/2010 2:24 PM 02/14/2010 9:05 PM 02/15/2010 6:50 AM 02/15/2010 1:56 PM BP: 125/73 116/71 117/68 111/73 Pulse: 67 67 63 54 Temp: 98.3 ??F 98.2 ??F 97.8 ??F 98.2 ??F Resp: 18 18 18 18 Weight: SpO2: 95% 94% 93% 94% Temp (30hrs) Max:98.3 ??F Intake/Output Summary (Last 24 hours) at 02/15 1506 Last data filed at 02/15 1215 Gross per 24 hour Intake 2865.4 ml Output 1250 ml Net 1615.4 ml Component Name 02/11/10229902/07/10 1420 03/15/09 1410 WBC 8.9 9.0 9.0 HGB 13.8 15.7 16.6* HCT 40.8 45.8 47.6 PLTCOUNT 274 260 320 No results found for this basename: TROPONIN:3 in the last 80449 hours Component Name 02/11/10229902/07/10 1420 SODIUM 139 142 POTASSIUM 3.8 3.9 CHLORIDE 104 103 CO2 27 26 BUN 9 8 CREATININE 0.9 0.8 GLUCOSE 95 89 CALCIUM 9.3 9.6 Component Name 02/11/10229902/07/10 1420 ALBUMIN 4.3 4.9 ALKPHOS 99 114 ALT 29 34 AST 29 33 TBIL 0.4 0.5 DBIL -- -- TPROT 6.9* 8.5* No results found for this basename: BNP:3 in the last 88673 hours MEDICATIONS FOR CURRENT ENCOUNTER: SCHEDULED MEDICATIONS: 0.9% nacl injection 3 mL, Intravenous, EVERY 8 HOURS ceFAZolin (ANCEF) IVPB 1 g, Intravenous, EVERY 8 HOURS docusate sodium (COLACE) capsule 100 mg, Oral, 2 TIMES DAILY enoxaparin (LOVENOX) injection 40 mg, Subcutaneous, DAILY AT 0600 famotidine (PEPCID) tablet 20 mg, Oral, 2 TIMES DAILY nicotine (NICODERM CQ) patch 14 mg, Transdermal, DAILY ?? nicotine (NICODERM CQ) remove patch 1 Patch, Remove patch, AT BEDTIME CONTINUOUS MEDICATIONS: ?? dextrose 5 % and 0.45% nacl infusion, Intravenous, CONTINUOUS PRN MEDICATIONS: acetaminophen (TYLENOL) suppository 650 mg, Rectal, EVERY 4 HOURS PRN acetaminophen (TYLENOL) tablet 650 mg, Oral, EVERY 4 HOURS PRN cetylpyridinium chloride (CEPACOL) lozenge 1 Lozenge, Oral, PRN diphenhydrAMINE (BENADRYL) injection 25 mg, Intravenous, EVERY 6 HOURS PRN hydrocodone-acetaminophen (NORCO) 5-325 MG tablet 1-2 Tab, Oral, EVERY 4 HOURS PRN HYDROmorphone (DILAUDID) injection 1 mg, Intravenous, EVERY 4 HOURS PRN ketorolac (TORADOL) injection 15 mg, Intravenous, EVERY 6 HOURS PRN morphine injection 2-4 mg, Intravenous, EVERY 1 HOUR PRN ondansetron (ZOFRAN) injection 4 mg, Intravenous, EVERY 4 HOURS PRN temazepam (RESTORIL) capsule 15 mg, Oral, NIGHTLY PRN ?? zolpidem (AMBIEN) tablet 5 mg, Oral, NIGHTLY PRN Exam General appearance: alert, cooperative, no distress Lungs: breath sounds normal and symmetric; no rales or wheezes Heart: regular rhythm, normal S1 and S2, without murmurs, gallops or rubs Abdomen: soft without mass, lap clemente incisions ok,BS present Extremities: no clubbing, cyanosis or edema Skin: no rashes or other abnormalities are noted Neurologic: mental status normal; alert and oriented X 3; cranial nerves II - XII are grossly intact Labs,meds and notes reviewed. Assessment and Plan 1. Cholelithiasis with progressive symptoms including pain and nausea/probable acute cholecystitis S/p lap cholecystectomy,cont analgesics,IS Encouraged increased activity. Advance diet. 2. Morbid obesity. The patient was advised weight reduction. 3. Tobacco abuse. The patient was advised to quit cigarette smoking and risk factors were discussedwith her. Start nicotine patch. Home when ok with surgery. Discussed with patient in detail,all questions answered. * Padmini Pierce - 02/15/2010 2:39 PM CDT Welcome letter and [facility] letter given to patient/ family. CM screen completed. Pt was interviewed. Ptlives with her grandmother and expects to return home at discharge. 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 Pt has health insurance and a prescription plan. Family will provide transportation at discharge. * Toan Anderson MD - 02/15/2010 10:20 AM CDT POST-OP ANESTHESIA EVALUATION Vera Najera Gurwinder is a 24 y.o. female Post-op Evaluation: POST-OP EVALUATION A post-op evaluation was performed on the patient with the following assessment: No Apparent Anesthesia Complications Unless otherwise indicated, the patient is being discharged from anesthesia care. Toan Anderson MD * Mak Graf MD - 02/14/2010 3:13 PM CDT [facility]PC PROGRESS NOTE Admit Date: 02/11/2010 6:08 PM Hospital Day: 3 02/14/2010 DO Williams Manciatristan Purdy is a 24 y.o. female SUBJECTIVE: C/o pain mainly incisional. Alert and awake. Data Vitals: 02/14/2010 1:00 PM 02/14/2010 1:15 PM 02/14/2010 1:30 PM 02/14/2010 2:24 PM BP: 119/61 118/63 121/53 125/73 Pulse: 63 69 73 67 Temp: 98.3 ??F Resp: 13 15 16 18 Weight: SpO2: 100% 95% 94% 95% Temp (30hrs) Max:98.3 ??F Intake/Output Summary (Last 24 hours) at 02/14 1513 Last data filed at 02/14 1424 Gross per 24 hour Intake 2674 ml Output 1725 ml Net 949 ml Component Name 02/11/10229902/07/10 1420 8//09 1410 WBC 8.9 9.0 9.0 HGB 13.8 15.7 16.6* HCT 40.8 45.8 47.6 PLTCOUNT 274 260 320 No results found for this basename: TROPONIN:3 in the last 60455 hours Component Name 02/11/10229902/07/10 1420 SODIUM 139 142 POTASSIUM 3.8 3.9 CHLORIDE 104 103 CO2 27 26 BUN 9 8 CREATININE 0.9 0.8 GLUCOSE 95 89 CALCIUM 9.3 9.6 Component Name 02/11/10229902/07/10 1420 ALBUMIN 4.3 4.9 ALKPHOS 99 114 ALT 29 34 AST 29 33 TBIL 0.4 0.5 DBIL -- -- TPROT 6.9* 8.5* No results found for this basename: BNP:3 in the last 81600 hours MEDICATIONS FOR CURRENT ENCOUNTER: SCHEDULED MEDICATIONS: 0.9% nacl injection 3 mL, Intravenous, EVERY 8 HOURS ceFAZolin (ANCEF) IVPB 1 g, Intravenous, EVERY 8 HOURS docusate sodium (COLACE) capsule 100 mg, Oral, 2 TIMES DAILY enoxaparin (LOVENOX) injection 40 mg, Subcutaneous, DAILY AT 0600 famotidine (PEPCID) tablet 20 mg, Oral, 2 TIMES DAILY hydrOXYzine hcl (VISTARIL) injection 50 mg, Intramuscular, ONCE nicotine (NICODERM CQ) patch 14 mg, Transdermal, DAILY ?? nicotine (NICODERM CQ) remove patch 1 Patch, Remove patch, AT BEDTIME CONTINUOUS MEDICATIONS: ?? dextrose 5 % and 0.45% nacl infusion, Intravenous, CONTINUOUS PRN MEDICATIONS: acetaminophen (TYLENOL) suppository 650 mg, Rectal, EVERY 4 HOURS PRN acetaminophen (TYLENOL) tablet 650 mg, Oral, EVERY 4 HOURS PRN cetylpyridinium chloride (CEPACOL) lozenge 1 Lozenge, Oral, PRN diphenhydrAMINE (BENADRYL) injection 25 mg, Intravenous, EVERY 6 HOURS PRN hydrocodone-acetaminophen (NORCO) 5-325 MG tablet 1-2 Tab, Oral, EVERY 4 HOURS PRN HYDROmorphone (DILAUDID) injection 1 mg, Intravenous, EVERY 4 HOURS PRN ketorolac (TORADOL) injection 15 mg, Intravenous, EVERY 6 HOURS PRN morphine injection 2-4 mg, Intravenous, EVERY 1 HOUR PRN ondansetron (ZOFRAN) injection 4 mg, Intravenous, EVERY 4 HOURS PRN temazepam (RESTORIL) capsule 15 mg, Oral, NIGHTLY PRN ?? zolpidem (AMBIEN) tablet 5 mg, Oral, NIGHTLY PRN Exam General appearance: alert, cooperative, no distress Lungs: breath sounds normal and symmetric; no rales or wheezes Heart: regular rhythm, normal S1 and S2, without murmurs, gallops or rubs Abdomen: soft without mass, surgical dressings in place Extremities: no clubbing, cyanosis or edema Skin: no rashes or other abnormalities are noted Neurologic: mental status normal; alert and oriented X 3; cranial nerves II - XII are grossly intact Labs,meds and notes reviewed. Assessment and Plan 1. Cholelithiasis with progressive symptoms including pain and nausea/probable acute cholecystitis S/p lap cholecystectomy,cont analgesics,IS 2. Morbid obesity. The patient was advised weight reduction. 3. Tobacco abuse. The patient was advised to quit cigarette smoking and risk factors were discussedwith her. Start nicotine patch. Home when ok with surgery. Discussed with patient in detail,all questions answered. * Radha Trujillo MD - 02/14/2010 12:07 PM CDT Post-Operative Note Surgeon: Radha Trujillo MD Preoperative Diagnosis: Ac cholecystitis Postoperative Diagnosis: Ac cholecystitis with hydropes Type of anesthesia: General, Local Procedure: Lap cholecystectomy Drains: none EBL: Negligable Tissue removed/specimens: Sent to pathology * Sylvai Tim MD - 02/14/2010 10:40 AM CDT PRE-ANESTHESIA EVALUATION Evaluated By: Yosi Tim MD, 02/14/2010 10:40 AM Vera Purdy is a 24 y.o. female Purpose: Hospital Problem List Patient Active Problem List Diagnoses Code ??? Threatened , Antepartum 640.03 ??? RLQ Abdominal Pain 789.03B Past Medical History Past Medical History Diagnosis Date ??? POLYCYSTIC OVARIES ??? HYPERLIPIDEMIA ??? Overweight, Obesity and Other Hyperalimentation Past Surgical History Past Surgical History Procedure Date ??? Tympanoplasty corrective hearing Allergies Review of patient's allergies indicates no known allergies. Meds Prescriptions prior to admission Medication Sig Dispense Refill ??? tramadol (ULTRAM) [...] every 4 hours as needed for Pain. Current hospital medications Medication Dose Route Frequency Provider Last Rate Last Dose ??? ceFAZolin (ANCEF) 2 G in D5W IVPB 2 g Intravenous PRE-OP ONCE RADHA TRUJILLO ??? nicotine (NICODERM CQ) remove patch 1 Patch 1 Patch Remove patch AT BEDTIME RADHA TRUJILLO 1 Patch (02/13/10 9:00 PM) ??? nicotine (NICODERM CQ) patch 14 mg 14 mg Transdermal DAILY GRAF, MAK A 14 mg (02/13/10 9:08 AM) ??? diphenhydrAMINE (BENADRYL) injection 25 mg 25 mg Intravenous EVERY 6 HOURS PRN GRAF, MAK A 25 mg (02/12/10 10:07 PM) ??? temazepam (RESTORIL) capsule 15 mg 15 mg Oral NIGHTLY PRN GRAF, MAK A ??? enoxaparin (LOVENOX) injection 40 mg 40 mg Subcutaneous DAILY AT 0600 GRAF, MAK A 40 mg (02/13/10 5:42 AM) ??? acetaminophen (TYLENOL) tablet 650 mg 650 mg Oral EVERY 4 HOURS PRN GRAF, MAK A 650 mg (02/12/10 12:35 PM) ??? ondansetron (ZOFRAN) injection 4 mg 4 mg Intravenous EVERY 4 HOURS PRN GRAF, MAK A 4 mg (02/14/10 12:25 AM) ??? famotidine (PEPCID) tablet 20 mg 20 mg Oral 2 TIMES DAILY GRAF, MAK A 20 mg (02/13/10 8:07 PM) ??? docusate sodium (COLACE) capsule 100 mg 100 mg Oral 2 TIMES DAILY GRAF, MAK A 100 mg (02/13/10 8:07 PM) ??? dextrose 5 % and 0.45% nacl infusion Intravenous CONTINUOUS MAK GRAF A 75 mL/hr (02/13/10 5:44 PM) ??? HYDROmorphone (DILAUDID) injection 1 mg 1 mg Intravenous EVERY 4 HOURS PRN NAYELY, MAK A 1 mg (02/14/10 4:10 AM) Past Social History History Social History ??? Marital Status: Single [...] History Narrative ??? No narrative on file Lab Results Component Name 02/11/10229902/07/10 1420 03/15/09 1410 WBC 8.9 9.0 9.0 HGB 13.8 15.7 16.6* HCT 40.8 45.8 47.6 PLTCOUNT 274 260 320 Component Name 02/11/10 2300 02/07/10 1420 SODIUM 139 142 POTASSIUM 3.8 3.9 CHLORIDE 104 103 CO2 27 26 BUN 9 8 CREATININE 0.9 0.8 GLUCOSE 95 89 CALCIUM 9.3 9.6 Component Name 02/13/10 0619 02/11/10 2300 INR 1.1 1.0 PT 11.4* 10.4 PTT 30.6 24.5 No results found for this basename: TROPONIN:3 in the last 14520 hours Last Vital Signs VITAL SIGNS Temp: 97.9 ??F Pulse: 54 Resp: 18 BP: 105/68 mmHg Weight: 247 lb 14.4 oz Height: 5' 6 SpO2: 97 % Pre-Eval Exam Previous Review I reviewed previous documentation: Yes PHYSICAL EXAM NPO status: Since Midnight Heart Sounds: S1 S2 Respiratory Pattern/Effort: CTA Oriented x 3: Yes Teeth: Ok Airway Class: II ANESTHESIA ASA: II;E Anesthesia Choices: General Post-Op: PACU PRE-EVAL REVIEW I have reviewed all previously documented physician evaluations: Yes general anesthesia discussed and questions answered * Mak Graf MD - 02/13/2010 3:39 PM CDT IPC PROGRESS NOTE Admit Date: 02/11/2010 6:08 PM Hospital Day: 2 02/13/2010 DO Vera Mancia Gurwinder is a 24 y.o. female SUBJECTIVE: Abdominal pain better Tolerating po liquids. Data Vitals: 02/12/2010 2:44 PM 02/12/2010 9:22 PM 02/13/2010 5:25 AM 02/13/2010 2:47 PM BP: 119/70 147/80 108/58 119/74 Pulse: 60 55 60 88 Temp: 98.6 ??F 97.4 ??F 97.7 ??F 98.1 ??F Resp: 18 18 18 18 Weight: SpO2: 95% 95% 95% 96% Temp (30hrs) Max:98.6 ??F Intake/Output Summary (Last 24 hours) at 02/13 1539 Last data filed at 02/13 1454 Gross per 24 hour Intake 2790 ml Output 2900 ml Net -110 ml Component Name 02/11/10 2300 02/07/10 1420 03/15/09 1410 WBC 8.9 9.0 9.0 HGB 13.8 15.7 16.6* HCT 40.8 45.8 47.6 PLTCOUNT 274 260 320 No results found for this basename: TROPONIN:3 in the last 10356 hours Component Name 02/11/10 2300 02/07/10 1420 SODIUM 139 142 POTASSIUM 3.8 3.9 CHLORIDE 104 103 CO2 27 26 BUN 9 8 CREATININE 0.9 0.8 GLUCOSE 95 89 CALCIUM 9.3 9.6 Component Name 02/11/10 23002/07/10 1420 ALBUMIN 4.3 4.9 ALKPHOS 99 114 ALT 29 34 AST 29 33 TBIL 0.4 0.5 DBIL -- -- TPROT 6.9* 8.5* No results found for this basename: BNP:3 in the last 98200 hours MEDICATIONS FOR CURRENT ENCOUNTER: SCHEDULED MEDICATIONS: docusate sodium (COLACE) capsule 100 mg, Oral, 2 TIMES DAILY enoxaparin (LOVENOX) injection 40 mg, Subcutaneous, DAILY AT 0600 famotidine (PEPCID) tablet 20 mg, Oral, 2 TIMES DAILY nicotine (NICODERM CQ) patch 14 mg, Transdermal, DAILY ?? nicotine (NICODERM CQ) remove patch 1 Patch, Remove patch, AT BEDTIME CONTINUOUS MEDICATIONS: ?? dextrose 5 % and 0.45% nacl infusion, Intravenous, CONTINUOUS PRN MEDICATIONS: acetaminophen (TYLENOL) tablet 650 mg, Oral, EVERY 4 HOURS PRN diphenhydrAMINE (BENADRYL) injection 25 mg, Intravenous, EVERY 6 HOURS PRN HYDROmorphone (DILAUDID) injection 1 mg, Intravenous, EVERY 4 HOURS PRN ondansetron (ZOFRAN) injection 4 mg, Intravenous, EVERY 4 HOURS PRN ?? temazepam (RESTORIL) capsule 15 mg, Oral, NIGHTLY PRN Exam General appearance: alert, cooperative, no distress Lungs: breath sounds normal and symmetric; no rales or wheezes Heart: regular rhythm, normal S1 and S2, without murmurs, gallops or rubs Abdomen: soft without mass, nontender, with normal bowel sounds Extremities: no clubbing, cyanosis or edema Skin: no rashes or other abnormalities are noted Neurologic: mental status normal; alert and oriented X 3; cranial nerves II - XII are grossly intact Labs,meds and notes reviewed. Assessment and Plan 1. Cholelithiasis with progressive symptoms including pain and nausea/probable acute cholecystitis cont symptom control,surgery planned for Sunday. LFT ok. Hold lovenox in am. 2. Morbid obesity. The patient was advised weight reduction. 3. Tobacco abuse. The patient was advised to quit cigarette smoking and risk factors were discussedwith her. Start nicotine patch. Discussed with patient in detail,all questions answered. * Mak Graf MD - 02/12/2010 3:25 PM CDT IPC PROGRESS NOTE Admit Date: 02/11/2010 6:08 PM Hospital Day: 1 02/12/2010 DO Vera Mancia is a 24 y.o. female SUBJECTIVE: Still with abdominal pain,some nausea Afebrile,no emesis,tolerated liquids Data Vitals: 02/11/2010 7:11 PM 02/12/2010 4:47 AM 02/12/2010 2:44 PM BP: 127/73 141/80 119/70 Pulse: 73 83 60 Temp: 98.4 ??F 98.1 ??F 98.6 ??F Resp: 18 18 18 Weight: 112.447 kg (247 lb 14.4 oz) SpO2: 100% 98% 95% Temp (30hrs) Max:98.6 ??F Intake/Output Summary (Last 24 hours) at 02/12 1525 Last data filed at 02/12 1243 Gross per 24 hour Intake 1885 ml Output 450 ml Net 1435 ml Component Name 02/11/10229902/07/10 1420 03/15/09 1410 WBC 8.9 9.0 9.0 HGB 13.8 15.7 16.6* HCT 40.8 45.8 47.6 PLTCOUNT 274 260 320 No results found for this basename: TROPONIN:3 in the last 48097 hours Component Name 02/11/10229902/07/10 1420 SODIUM 139 142 POTASSIUM 3.8 3.9 CHLORIDE 104 103 CO2 27 26 BUN 9 8 CREATININE 0.9 0.8 GLUCOSE 95 89 CALCIUM 9.3 9.6 Component Name 02/11/10229902/07/10 1420 ALBUMIN 4.3 4.9 ALKPHOS 99 114 ALT 29 34 AST 29 33 TBIL 0.4 0.5 DBIL -- -- TPROT 6.9* 8.5* No results found for this basename: BNP:3 in the last 08865 hours MEDICATIONS FOR CURRENT ENCOUNTER: ?? SCHEDULED MEDICATIONS: docusate sodium (COLACE) capsule 100 mg, Oral, 2 TIMES DAILY enoxaparin (LOVENOX) injection 40 mg, Subcutaneous, DAILY AT 0600 famotidine (PEPCID) tablet 20 mg, Oral, 2 TIMES DAILY methylergonovine (METHERGINE) tablet 0.2 mg, Oral, EVERY 8 HOURS ?? CONTINUOUS MEDICATIONS: dextrose 5 % and 0.45% nacl infusion, Intravenous, CONTINUOUS ?? PRN MEDICATIONS: acetaminophen (TYLENOL) tablet 650 mg, Oral, EVERY 4 HOURS PRN HYDROmorphone (DILAUDID) injection 1 mg, Intravenous, EVERY 4 HOURS PRN ondansetron (ZOFRAN) injection 4 mg, Intravenous, EVERY 4 HOURS PRN Exam General appearance: alert, cooperative, no distress Lungs: breath sounds normal and symmetric; no rales or wheezes Heart: regular rhythm, normal S1 and S2, without murmurs, gallops or rubs Abdomen: soft without mass, mild to mod tendeness RUQ, with normal bowel sounds Extremities: no clubbing, cyanosis or edema Skin: no rashes or other abnormalities are noted Neurologic: mental status normal; alert and oriented X 3; cranial nerves II - XII are grossly intact Labs,meds and notes reviewed. Assessment and Plan 1. Cholelithiasis with progressive symptoms including pain and nausea/probable acute cholecystitis cont symptom control,surgery planned for Sunday. LFT ok. Check PT/PTT 2. Morbid obesity. The patient was advised weight reduction. 3. Tobacco abuse. The patient was advised to quit cigarette smoking and risk factors were discussedwith her. Start nicotine patch. Discussed with family and patient in detail,all questions answered.Discussed with consultants. * Radha Trujillo MD - 02/12/2010 2:43 PM CDT Full consult to follow. Pt with rec GB pain. + N, no vomiting/diarrhea. Abd soft, RUQ tenderness. Outpatient U/S per PT showed gall stones. Possible Accholecystitis. Cont iv fluids, abx. Plan GB surg on MON. documented in this encounter H&P Notes * Mak Graf MD - 02/11/2010 8:35 PM CDT Patient seen and examined. H&P dictated. [id number] Meds reviewed and reconciled. Allergies reviewed. Labs and radiology data,EKG pending. Treatment plan d/w patient,family at bedside,all questions answered. * Mak Graf MD - 02/11/2010 12:00 AM CDT[facility] HISTORY AND PHYSICAL PATIENT: VERA PURDY MR#: [id number] ADMIT DATE: 02/11/2010 : 1985 ROOM: [facility] PHYSICIAN: MAK GRAF MD PRESENTING COMPLAINT: Progressively worsening abdominal pain since last 1-1/2 weeks. HISTORY OF PRESENT ILLNESS: The patient is a 24-year-old female with obesity who was doing alright until one 1 to 1-1/2 weeks ago when she started noticing upper abdominal pain mainly on the right side which she describes as severe, sharp pain occurring intermittently, radiating to the right side of the abdomen. The pain had initially started in the mid abdomen and finally localized to the right abdomen. This has been associated with nausea which is present all the time. The patient has not had any fevers or chills but has had waxing and waning severity of the pain. She has been treated by primary care physician's office with oral medicines and a recent gallbladder ultrasound showed multiple gallstones with a gallstone in the neck of the gallbladder as well. She was supposed to have seen Dr. Saeed as an outpatient; however, started having increasing pain today and was directly admitted for pain control and surgical evaluation. At this time she denies any headache, chest pain, tightness, or shortness of breath but complains of nausea and abdominal pain. She denies any dysuria or increased frequency of urination, and denies any numbness or weakness in any of her extremities. Her past medical history is significant for history of dyslipidemia and polycystic ovaries. ALLERGIES: NO KNOWN DRUG ALLERGIES. SOCIAL HISTORY: The patient smokes at least one pack per day for the last 4 years. She denies any alcohol use or illicit drug use. FAMILY HISTORY: Negative for hypertension, diabetes. REVIEW OF SYSTEMS: All systems were reviewed and are unremarkable except for above-mentioned problems. HOME MEDICATIONS: [place], Motrin, Methergine, Phenergan, and Ultram. PHYSICAL EXAMINATION: GENERAL: She is an alert, oriented, cooperative, pleasant, obese female who does not appear to be in any acute distress at this time. VITAL SIGNS: Her blood pressure is a 127/73, heart rate 73. She is afebrile. Respiratory rate is 100% on room air. SHEENT: Skin is warm and dry. Head is atraumatic, normocephalic. Eyes: Pupils are equal, reactive to light. ENT is unremarkable. NECK: Without JVD, carotid bruit, lymphadenopathy. LUNGS: Clear to auscultation. CARDIOVASCULAR: Normal S1, S2, regular rate and rhythm, without any murmur or gallop. ABDOMEN: Soft, obese, and moderately tender in the right upper quadrant without any guarding or rebound. Bowel sounds are normal. EXTREMITIES: Without any edema, clubbing, or cyanosis. NEUROLOGIC: Examination is grossly nonfocal. LABORATORY DATA: Workup is still pending, and basic labs including CBC, CMP, PT, and PTT have been ordered. A UA will be checked as well. Chest x-ray will be obtained for preoperative evaluation. EKG will be obtained if surgery is contemplated. ASSESSMENT: 1.Cholelithiasis with progressive symptoms including pain and nausea. Start on Dilaudid for pain control, hydration with IV fluids, and p.r.n. antiemetics. Surgery consultation will be requested for further evaluation, given her persistent symptoms. 2.Morbid obesity. The patient was advised weight reduction. 3.Tobacco abuse. The patient was advised to quit cigarette smoking and risk factors were discussed with her. MD KIM Selby/MedQ #: [id number] cc: Mellisa Johnson DO documented in this encounter Procedure Notes * Document, Scanned - 02/11/2010 12:00 AM CDTAssociated Order(s): IMAGING/RADIOLOGY/XRAY RESULTS ORDER documented in this encounter Consult Notes * Radha Trujillo MD - 02/12/2010 12:00 AM CDT[facility] CONSULTATION REPORT PATIENT: VERA PURDY MR#: [id number] ADMIT DATE: 02/11/2010 CONSULT DATE: 02/12/2010 : 1985 ATTENDING PHYS: MAK GRAF MD ROOM: 0550 CONSULTING PHYSICIAN: NIVIA TRUJILLO MD REASON FOR CONSULTATION: Evaluate abdominal pain and gallbladder disease. HISTORY OF PRESENT ILLNESS: The patient is a 24-year-old obese white female who was admitted with about 10-day history of progressively worsening abdominal pain. It is located on the right side of the abdomen. It is sharp and intermittent. It causes lack of appetite and nausea. She denied having any fever or vomiting. PAST MEDICAL HISTORY: Significant only for obesity. ALLERGIES: NONE. MEDICATIONS: Listed in the chart. FAMILY HISTORY: Noncontributory. SOCIAL HISTORY: The patient is a pack a day smoker. Denies use of alcohol. REVIEW OF SYSTEMS: Detailed 10-point review of systems is negative except for HPI. PHYSICAL EXAMINATION: HEAD AND NECK: Pale, but moist mucous membranes. Neck is supple and nontender. CHEST: Mild bibasilar crackles without any wheezing. HEART: Regular rate and rhythm. ABDOMEN: Obese, but soft. There is minimal right upper quadrant tenderness without any guarding or rigidity. Bowel sounds are present. No hernia is palpable. EXTREMITIES: All 4 extremities are warm and well-perfused. NEUROLOGICAL: She is grossly intact. DIAGNOSTIC DATA: Results of a CT scan performed on 02/07/2010 were reviewed that do not show any inflammatory process. The results of chest x-ray do not show active cardiopulmonary disease. According to the patient an ultrasound done in an outside facility showed gallstones. DIAGNOSES: 1.Abdominal pain due to cholelithiasis and cholecystitis. 2.Hyperlipidemia. 3.Obesity. MANAGEMENT OPTIONS: Plan would be bowel rest, IV fluids, and gallbladder surgery. Thank you for consultation. Nivia Trujillo MD TA/MedQ #: [id number] documented in this encounter OR Notes * Operative - Radha Trujillo MD - 02/14/2010 3:11 PM CDT[facility] Report [facility] OPERATIVE REPORT PATIENT: : VERA PURDY MR#: [id number] ADMIT DATE: 02/11/2010 DATE OF SURGERY: : 1985 PHYSICIAN: Nivia Trujillo MD ROOM: [facility] PREOPERATIVE DIAGNOSIS: Acute cholecystitis. POSTOPERATIVE DIAGNOSIS: Acute cholecystitis with hydrops. PROCEDURES PERFORMED: Laparoscopic cholecystectomy. SURGEON: Nivia Trujillo MD ANESTHESIA: General. INDICATIONS FOR PROCEDURE: The patient is a 24-year-old obese white female with history of gallstones, who was noted to have acute cholecystitis. Indications, risks, benefits, and alternatives to thesurgery were discussed with the patient and an informed consent was obtained. PROCEDURE: The patient was taken to the operating room and was given general anesthesia. Her anterior abdomen was prepped and draped in sterile manner. A transverse infraumbilical incision was made and was carried down to the midline fascia. Fascia was opened vertically and two stay sutures of 0 Vicryl were placed on either side. The pneumoperitoneum was established with high-flow CO2, was delivered through Blair trocar. A 0-degree laparoscope was introduced and under direct vision, an 11-mm trocar was placed in the epigastrium and two 5-mm trocars were placed in the right upper quadrant. Gallbladder was grasped at the fundus and retracted superiorly. The neck of the gallbladder was stretched anteriorly and laterally. The cystic duct was identified and its junction with gallbladder and the common bile duct were clearly visualized. Two clips were placed proximally and two distally on the cystic duct. Similarly, cystic artery was identified, clipped, and divided. Gallbladder was then removed from the gallbladder fossa using a hook electrocautery. Gallbladder was placed in a specimen bag and retrieved from the peritoneal cavity through the umbilical incision. The gallbladder fossa was again examined and all the clips were found to be in correct position. No bleeding or bile leak was noted. All trocars were removed under vision and no bleeding at the trocar site was noted. Pneumop eritoneum was released. Fascia incision was closed with 0 Vicryl [id number] sutures. Skin incisions were closed with 4-0 Monocryl. Steri-Strips and sterile dressings were applied. Initial and final sponge, instrument, and needle counts were taken and reported to be correct. The patient was awakened and transferred to Post Anesthesia Care Unit in stable condition. MD ATTILA Finch/Niranjan #: [id number] documented in this encounter Miscellaneous Notes * Miscellaneous Scans - Document, Scanned - 02/11/2010 12:00 AM CDT * Miscellaneous Scans - Document, Scanned - 02/11/2010 12:00 AM CDT * Miscellaneous Scans - Document, Scanned - 02/11/2010 12:00 AM CDT * Miscellaneous Scans - Document, Scanned - 02/11/2010 12:00 AM CDT * Miscellaneous Scans - Document, Scanned - 02/11/2010 12:00 AM CDT * Miscellaneous Scans - Document, Scanned - 02/11/2010 12:00 AM CDT documented in this encounter Plan of Treatment Scheduled Orders Name Type Priority Associated Diagnoses Order Schedule INCENTIVE SPIROMETRY RT Respiratory Care Routine Use in Capri-OP areas only for 1 Occurrences starting 02/14/2010 until 02/14/2010 documented as of this encounter Procedures Procedure Name Priority Date/Time Associated Diagnosis Comments IMAGING/RADIOLOGY/XRAY RESULTS ORDER 02/17/2010 10:43 AM CDT GROSS + MICRO EXAM Routine 02/14/2010 12 :00 AM CDT Cholelithiasis Nos PT PTT PANEL Routine 02/13/2010 6:19 AM CDT Cholelithiasis Nos URINALYSIS REFLEX MICROSCOPIC REFLEX CULTURE STAT 02/12/2010 9:50 AM CDT Cholelithiasis Nos XR CHEST 2VW Routine 02/12/2010 9:17 AM CDT Cholelithiasis Nos PTT STAT 02/11/2010 11:00 PM CDT Cholelithiasis Nos PT-INR STAT 02/11/2010 11:00 PM CDT Cholelithiasis Nos CBC W AUTO DIFFERENTIAL STAT 02/11/2010 11:00 PM CDT Cholelithiasis Nos COMPREHENSIVE METABOLIC PANEL STAT 02/11/2010 11:00 PM CDT Cholelithiasis Nos MAGNESIUM BLOOD STAT 02/11/2010 11:00 PM CDT Cholelithiasis Nos LIPASE BLOOD Routine 02/11/2010 11:00 PM CDT Cholelithiasis Nos documented in this encounter Results * IMAGING/RADIOLOGY/XRAY RESULTS ORDER (02/17/2010 10:43 AM CDT) Anatomical Region Laterality Modality Other Narrative 02/17/2010 10:43 AM CDT Ordered by an unspecified provider. Transcriptions Document, Scanned - 02/11/2010 12:00 AM CDT Scanned Document IMAGING * GROSS + MICRO EXAM (02/14/2010 12:00 AM CDT) [facility] Surgeon DR. Moiz TRUJILLO [facility] Grossed By LORRIE JACK [facility] Gross Report [facility] Comment: COPY TO: INDICATION FOR PROCEDURE: [...] focally eroded, green to reddish-ling and smooth. ??Instructional Technologist sections of the specimen including the cystic duct margin and possible lymph node are submitted in a single cassette. LW/km Microscopic Examination [facility] Comment: MICROSCOPIC: The sections of the gallbladder show gallbladder wall well preserved. Mucosa is in part surfaced by columnar epithelium. ??Mild chronic inflammation is seen. ??No dysplasia or malignancy is identified. ??A small unremarkable lymph node is present as well. JW/km Diagnosis [facility] Comment: DIAGNOSIS: 1. ?Gallbladder, cholecystectomy: -- ?Cholecystitis, chronic, mild -- ?Cholelithiasis /km Released by Reinaldo HENDRICKSON. [facility] CPT Code 72867 [facility] ENTIRE GALLBLADDER / Unknown 02/14/2010 02/15/2010 9:16 AM CDT Mak Graf MD LAB - PATHOLOGY/CYTO LOGY ORDERABLES Performing Organization Address [facility] de Phone Number [facility] [address] [place] [address] * (ABNORMAL) PT PTT PANEL (02/13/2010 6:19 AM CDT) PT 11.4(H) 9.4 - 11.2 seconds [facility] INR 1.1 SEE BELOW [facility] Comment: 0.9-1.1 Normal 2.0-3.0 Conventional 2.5-3.5 Intensive PTT 30.6 24.0 - 32.0 seconds [facility] BLOOD SPECIMEN / Unknown 02/13/2010 6:19 AM CDT 02/13/2010 6:19 AM CDT Mak Graf MD LAB - COAGULATION OR DERABLES Performing Organization Address [facility] Co de Phone Number [facility] [address] [place] [address] * URINALYSIS ROUTINE W/REFLEX TO CULTURE (02/12/2010 9:50 AM CDT) Color UA YELLOW [facility] Character UA CLOUDY [facility] Specific [place] UA 1.016 1.005 - 1.0300 [facility] pH UA 5.5 4.6 - 8.0 pH Units [facility] Leukocyte UA NEGATIVE Negative /ul [facility] Nitrite UA NEGATIVE Negative [facility] Protein UA NEGATIVE Negative mg/dl [facility] Glucose UA NEGATIVE Normal mg/dl [facility] Ketone UA NEGATIVE Negative mg/dl [facility] Urobilinogen UA 0.2 Normal Valorie Units [facility] Bilirubin UA NEGATIVE Negative mg/dl [facility] Blood UA NEGATIVE Negative /ul [facility] WBC UA 5-10 /HPF [facility] RBC UA <5 /HPF [facility] Epithelial Cell UA 10-20 /HPF [facility] Casts UA 2-5 WBC /LPF [facility] Bacteria UA Few [facility] Urine Culture No culture to be done per protocol. [facility] URINE SPECIMEN OBTAINED BY CLEAN CATCH PROCEDURE / Unknown 02/12/2010 9:50 AM CDT 02/12/2010 10:02 AM CDT Mak Graf MD LAB - URINALYSIS ORD ERABLES [facility] [address] [place] [address] * XR CHEST PA AND LATERAL (02/12/2010 9:17 AM CDT) Anatomical Region Laterality Modality Chest Radiographic Sherrie ging 02/12/2010 9:36 AM CDT Impressions 02/12/2010 11:49 AM CDT NO ACUTE PULMONARY DISEASE Narrative 02/12/2010 11:49 AM CDT CHEST 2 VIEWS INDICATION: Cough, preop FINDINGS: Two views of the chest show the lung verma to be well expanded and clear. An azygos lobe is seen in the medial right apex. There is no consolidation. The heart size is normal. Procedure Note Brain Pickard MD - 02/12/2010 CHEST 2 VIEWS INDICATION: Cough, preop FINDINGS: Two views of the chest show the lung verma to be well expanded and clear. An azygos lobe is seen in the medial right apex. There is no consolidation. The heart size is normal. IMPRESSION NO ACUTE PULMONARY DISEASE Mak Graf MD DIAGNOSTIC IMAGING O RDERABLES * LIPASE BLOOD (02/11/2010 11:00 PM CDT) Lipase 137 23.0 - 300.0 U/L [facility] BLOOD SPECIMEN / Unknown 02/11/2010 11:00 PM CDT 02/11/2010 11:13 PM CDT Mak Graf MD LAB - CHEMISTRY ORDBrett [place] Performing Organization Address [facility] Co de Phone Number [facility] [address] [place] [address] * MAGNESIUM BLOOD (02/11/2010 11:00 PM CDT) Pathologist [facility] Magnesium 1.9 1.6 - 2.3 mg/dl [facility] BLOOD SPECIMEN / Unknown 02/11/2010 11:00 PM CDT 02/11/2010 11:12 PM CDT Mak Graf MD LAB - CHEMISTRY ORDE ROYER Performing Organization Address [facility] Co de Phone Number [facility] [address] [place] [address] * (ABNORMAL) COMPREHENSIVE METABOLIC PANEL (02/11/2010 11:00 PM CDT) BUN 9 7.0 - 17.0 mg/dl [facility] Sodium 139 137 - 145 mmol/L [facility] Potassium 3.8 3.6 - 5.0 mmol/L [facility] Chloride 104 98.0 - 107.0 mmol/L [facility] Glucose 95 75 - 110 mg/dl [facility] Creatinine 0.9 0.52 - 1.05 mg/dl [facility] AST 29 14.0 - 36.0 U/L [facility] Alkaline Phosphatase 99 38.0 - 126.0 U/L [facility] Calcium 9.3 8.4 - 10.2 mg/dl [facility] Bilirubin Total 0.4 0.2 - 1.3 mg/dl [facility] Albumin 4.3 3.5 - 5.0 gm/dl [facility] Protein Total 6.9(DE) 6.3 - 8.2 gm/dl [facility] CO2 27 22.0 - 30.0 mEq/L [facility] ALT 29 9.0 - 52.0 U/L [facility] eGFR by MDRD 76.92 ml/min/1.7 3m2 [facility] BLOOD SPECIMEN / Unknown 02/11/2010 11:00 PM CDT 02/11/2010 11:12 PM CDT Mak Graf MD LAB - CHEMISTRY ORDE RABLES Performing Organization Address [facility] de Phone Number [facility] [address] [place] [address] * PTT (02/11/2010 11:00 PM CDT) PTT 24.5 24.0 - 32.0 seconds [facility] BLOOD SPECIMEN / Unknown 02/11/2010 11:00 PM CDT 02/11/2010 11:12 PM CDT Mak Graf MD LAB - COAGULATION OR DERABLES Performing Organization Address [facility] de Phone Number [facility] [address] [place] [address] * PT-INR (02/11/2010 11:00 PM CDT) PT 10.4 9.4 - 11.2 seconds [facility] INR 1.0 SEE BELOW [facility] Comment: 0.9-1.1 Normal 2.0-3.0 Conventional 2.5-3.5 Intensive BLOOD SPECIMEN / Unknown 02/11/2010 11:00 PM CDT 02/11/2010 11:12 PM CDT Mak Graf MD LAB - COAGULATION OR DERABLES Performing Organization Address [facility] Co de Phone Number [facility] [address] [place] [address] * CBC W AUTO DIFFERENTIAL (02/11/2010 11:00 PM CDT) WBC 8.9 4.5 - 11.0 1000/mm3 [facility] RBC 4.83 4.2 - 5.4 10X6 [facility] Hemoglobin 13.8 12.0 - 16.0 gm/dl [facility] Hematocrit 40.8 36.0 - 48.0 % [facility] MCV 84.5 80.0 - 99.0 fl [facility] MCH 28.6 25.0 - 31.0 pg [facility] MCHC 33.8 32.0 - 36.0 gm/dl [facility] RDW 13.4 11.5 - 14.5 % [facility] Platelet Count 274 130.0 - 400.0 1000/mm3 [facility] Granulocytes % 53.2 40.0 - 70.0 % [facility] Lymphocytes % 38.4 22.0 - 40.0 % [facility] Monocytes % 6.3 2.0 - 10.0 % [facility] Eosinophils % 1.9 0.0 - 6.0 % [facility] Basophils % 0.2 0.0 - 3.0 % [facility] Granulocytes Absolute 4.71 1.8 - 7.7 [facility] Lymphocytes Absolute 3.40 1.0 - 5.4 [facility] Monocytes Absolute 0.56 0.1 - 1.1 [facility] Eosinophils Absolute 0.17 0.0 - 0.7 [facility] Basophils Absolute 0.02 0.0 - 0.2 [facility] Comment Manual Diff Not Indicated [facility] BLOOD SPECIMEN / Unknown 02/11/2010 11:00 PM CDT 02/11/2010 11:12 PM CDT Mak Graf MD LAB - HEMATOLOGY ORD ERABLES Performing Organization Address City/State/[facility] Co de Phone Number [facility] [address] [place] [address] documented in this encounter Visit Diagnoses Diagnosis Calculus of gallbladder without mention of cholecystitis or obstruction documented in this encounter Administered Medications Inactive Administered Medications - up to 3 most recent administrations Medication Order MAR Action Action Date Dose Rate Site 0.9% nacl injection 3 mL 3 mL, Intravenous, EVERY 8 HOURS, First dose on Sun02/14/10 at 1400, Until Discontinued, Use following conversion of IV Fluids to Saline Lock. $ Given 02/16/2010 5:51 AM CDT 3 mL $ Given 02/15/2010 8:30 PM CDT 3 mL $ Given 02/15/2010 12:12 PM CDT 3 mL acetaminophen (TYLENOL) tablet 650 mg 650 mg, Oral, EVERY 4 HOURS PRN, Fever, Pain, Headache, Starting on Sun02/11/10 at 2028, Until Sun02/17/10 at 0557, Maximum allowable Acetaminophen amount = 4 Grams / 24 hours. Use for fever >or equal to 101 $ Given 02/12/2010 12:35 PM CDT 650 mg bisacodyl (DULCOLAX) suppository 10 mg 10 mg, Rectal, ONCE, 1 dose, On Sun02/16/10 at 1115 $ Given 02/16/2010 11:40 AM CDT 10 mg ceFAZolin (ANCEF) IVPB 1 g 1 g, at 100 mL/hr, Intravenous, EVERY 8 HOURS, 2 doses, First dose on Sun02/14/10 at 1900, Last dose on Sun02/15/10 at 0300, Administer last dose within 24 hours of the close of surgical incision. $ Given 02/15/2010 3:16 AM CDT 1 g 100 mL/hr $ Given 02/14/2010 5:27 PM CDT 1 g 100 mL/hr dextrose 5 % and 0.45% nacl infusion at 75 mL/hr, Intravenous, CONTINUOUS, Starting on Sun02/11/10 at 2030, Until Sun02/15/10 at 1519 $ New Bag/Syringe 02/15/2010 3:16 AM CDT 75 mL/hr $ New Bag/Syringe 02/13/2010 5:44 PM CDT 75 mL/ hr $ New Bag/Syringe 02/12/2010 12:36 PM CDT 75 mL /hr diphenhydrAMINE (BENADRYL) injection 25 mg 25 mg, Intravenous, EVERY 6 HOURS PRN, Itching, Starting on Sun02/12/10 at 2154, Until Sun02/17/10 at 0557, Max intravenous rate = 25 mg/min $ Given 02/12/2010 10:07 PM CDT 25 mg docusate sodium (COLACE) capsule 100 mg 100 mg, Oral, 2 TIMES DAILY, First dose on Sun02/11/10 at 2100, Until Discontinued $ Given 02/16/2010 8:39 AM CDT 100 m g $ Given 02/15/2010 8:29 PM CDT 100 mg $ Given 02/15/2010 9:17 AM CDT 100 mg enoxaparin (LOVENOX) injection 40 mg 40 mg, Subcutaneous, DAILY AT 0600, First dose on Sun02/12/10 at 0600, Until Discontinued, (for prefilled syringes) do not expel air bubble from the syringe prior to the injection $ Given 02/16/2010 5:51 AM CDT 40 mg A bdominal Tissue $ Given 02/15/2010 5:43 AM CDT 40 mg Ab dominal Tissue $ Given 02/13/2010 5:42 AM CDT 40 mg Ab dominal Tissue famotidine (PEPCID) tablet 20 mg 20 mg, Oral, 2 TIMES DAILY, First dose on Sun02/11/10 at 2100, Until Discontinued $ Given 02/16/2010 8:39 AM CDT 20 mg $ Given 02/15/2010 8:29 PM CDT 20 mg $ Given 02/15/2010 9:17 AM CDT 20 mg fentanyl (SUBLIMAZE) injection 56.2-112.4 mcg 56.2-112.4 mcg (0.5-1 mcg/kg ? 112.4 kg), Intravenous, POST-OP MULTIPLE, Starting on Sun02/14/10 at 1223, Until Sun02/14/10 at 1349, 0.5 mcg/kg every 5 minutes PRN for pain of 1-5 on pain scale. 0.5 mcg/kg - 1 mcg/kg every 5 minutes PRN for pain of 6-10 on pain scale. DO NOT EXCEED 2 mcg/kg/hour. $ Given 02/14/2010 12:30 PM CDT 50 mcg hydrocodone-acetaminophen (VICODIN) 5-500 MG tablet 1-2 Tab 1-2 tablet, Oral, EVERY 4 HOURS PRN, Pain, Starting on Sun02/15/10 at 1519, Until Sun02/17/10 at 0557, Maximum allowable Acetaminophen amount = 4 Grams / 24 hours. $ Given 02/16/2010 8:39 AM CDT 2 tablets $ Given 02/16/2010 3:39 AM CDT 2 tablets $ Given 02/15/2010 8:29 PM CDT 2 tablets HYDROmorphone (DILAUDID) injection 0.5 mg 0.5 mg, Intravenous, POST-OP MULTIPLE, Starting on Sun02/14/10 at 1222, Until Sun02/14/10 at 1349, 0.5 mg every 10 minutes PRN for pain of 5-10 on pain scale. Up to 3 mg maximum $ Given 02/14/2010 1:30 PM CDT 0.5 mg $ Given 02/14/2010 1:09 PM CDT 0.5 mg $ Given 02/14/2010 12:40 PM CDT 0.5 mg HYDROmorphone (DILAUDID) injection 1 mg 1 mg, Intravenous, EVERY 4 HOURS PRN, Pain, Starting on Sun02/11/10 at 2028, Until Sun02/15/10 at 1519 $ Given 02/15/2010 12:11 PM CDT 1 mg $ Given 02/15/2010 7:33 AM CDT 1 mg $ Given 02/15/2010 3:21 AM CDT 1 mg hydrOXYzine hcl (VISTARIL) injection 50 mg 50 mg, Intramuscular, ONCE, 1 dose, On Sun02/14/10 at 1230, Intended only for IM administration; do not give IV, SC, or intra-arterially $ Given 02/14/2010 12:37 PM CDT 50 mg Left leg ketorolac (TORADOL) injection 15 mg 15 mg, Intravenous, EVERY 6 HOURS PRN, Pain, Starting on Sun02/14/10 at 1350, Until Sun02/16/10 at 1349, For moderate pain (Pain scale 4 to 6). PRN if not administered in the OR. $ Given 02/15/2010 3:33 PM CDT 15 mg $ Given 02/15/2010 9:18 AM CDT 15 mg magnesium hydroxide (MILK OF MAGNESIA) suspension 30 mL 30 mL, Oral, PRN, Constipation, Starting on Sun02/16/10 at 1241, Until Sun02/17/10 at 0557, Shake well before using $ Given 02/16/2010 12:47 PM CDT 30 mL morphine injection 2-4 mg 2-4 mg, Intravenous, EVERY 1 HOUR PRN, Pain, Starting on Sun02/14/10 at 1350, Until Sun02/17/10 at 0557, For severe pain (pain scale 7-10) Watch for lethargy $ Given 02/14/2010 2:55 PM CDT 4 mg nicotine (NICODERM CQ) patch 14 mg 14 mg, Administer over 24 Hours, DAILY, First dose on 02/12/10 at 1530, Until Discontinued, Remove old patch before applying new patch. $ Given 02/16/2010 8:39 AM CDT 14 mg Left Arm $ Given 02/15/2010 9:23 AM CDT 14 mg Le ft Deltoid $ Given 02/13/2010 9:08 AM CDT 14 mg Le ft Arm nicotine (NICODERM CQ) remove patch 1 Patch 1 patch, Remove patch, AT BEDTIME, First dose (after last modification) on 02/13/10 at 2100, Until Discontinued $ Given 02/15/2010 9:00 PM CDT 1 patch $ Given 02/14/2010 9:00 PM CDT 1 patch $ Given 02/13/2010 9:00 PM CDT 1 patch ondansetron (ZOFRAN) injection 4 mg 4 mg, Intravenous, EVERY 4 HOURS PRN, Nausea/Vomiting, Starting on Sun02/11/10 at 2028, Until Nancy 02/17/10 at 0557, If prochlorperazine or promethazine is not effective $ Given 02/15/2010 3:54 PM CDT 4 mg $ Given 02/15/2010 9:18 AM CDT 4 mg $ Given 02/14/2010 12:25 AM CDT 4 mg temazepam (RESTORIL) capsule 15 mg 15 mg, Oral, AT BEDTIME PRN, Insomnia, Starting on 02/12/10 at 2155, Until 02/16/10 at 1243 $ Given 02/14/2010 9:52 PM CDT 15 mg documented in this encounter Active and Recently Administered Medications Times are shown in CDT. Scheduled Medication Order 02/14/2010 02/15/2010 02/16/2010 0.9% nacl injection 3 mL (CANCELED) 3 mL, Intravenous, EVERY 8 HOURS, First dose on 02/14/10 at 1400, Until Discontinued, Use following conversion of IV Fluids to Saline Lock. 1400 ($ Given - Provider: Arturo Gregg RN)2200 (Not Administered - Provider: Sharmila Raphael RN - Reason: IV Currently Infusing) 0600 (Not Administered - Provider: Sharmila Raphael RN - Reason: IV Currently Infusing)1212 ($ Given - Provider: Namrata J Flynn, RN)2030 ($ Given - Provider: Remedios Bennett, JACK) 0551 ($ Given - Provider: Padmini Adames, RN)1400 (Not Administered - Provider: Joyce Galloway, JACK - Reason: Loss of Access) bisacodyl (DULCOLAX) suppository 10 mg (COMPLETED) 10 mg, Rectal, ONCE, 1 dose, On Sun02/16/10 at 1115 1140 ($ Given - Provider: Joyce Galloway RN) ceFAZolin (ANCEF) IVPB 1 g (COMPLETED) 1 g, at 100 mL/hr, Intravenous, EVERY 8 HOURS, 2 doses, First dose on Sun02/14/10 at 1900, Last dose on Sun02/15/10 at 0300, Administer last dose within 24 hours of the close of surgical incision. 1727 ($ Given - Provider: Lolly Love) 0316 ($ Given - Provider: Sharmila Raphael RN) docusate sodium (COLACE) capsule 100 mg 100 mg, Oral, 2 TIMES DAILY, First dose on Sun02/11/10 at 2100, Until Discontinued 0900 (Held - Provider: Arturo Gregg RN - Comment: npo for surgery)2136 ($ Given - Provider: Sharmila Raphael RN) 0917 ($ Given - Provider: Namrata Pruett RN)202 ($ Given - Provider: Remedios Bennett, JACK) 0839 ($ Given - Provider: Joyce Galloway, JACK) enoxaparin (LOVENOX) injection 40 mg (CANCELED) 40 mg, Subcutaneous, DAILY AT 0600, First dose on Sun02/12/10 at 0600, Until Discontinued, (for prefilled syringes) do not expel air bubble from the syringe prior to the injection 0600 (Not Administered - Provider: Sharmila Raphael RN - Reason: Per Administration Instructions - Comment: held due to surgery) 0543 ($ Given - Provider: Sharmila Raphael RN) 0551 ($ Given - Provider: Padmini Adames, JACK) famotidine (PEPCID) tablet 20 mg (CANCELED) 20 mg, Oral, 2 TIMES DAILY, First dose on Sun02/11/10 at 2100, Until Discontinued 0900 (Held - Provider: Arturo Gregg RN - Comment: npo for surgery)2135 ($ Given - Provider: Sharmila Raphael RN) 09 ($ Given - Provider: Namrata Pruett RN)2028 ($ Given - Provider: Remedios Bennett, JACK) 0839 ($ Given - Provider: Joyce Galloway RN) fentanyl (SUBLIMAZE) injection 56.2-112.4 mcg (CANCELED) 56.2-112.4 mcg (0.5-1 mcg/kg ? 112.4 kg), Intravenous, POST-OP MULTIPLE, Starting on Sun02/14/10 at 1223, Until Sun02/14/10 at 1349, 0.5 mcg/kg every 5 minutes PRN for pain of 1-5 on pain scale. 0.5 mcg/kg - 1 mcg/kg every 5 minutes PRN for pain of 6-10 on pain scale. DO NOT EXCEED 2 mcg/kg/hour. 1230 ($ Given - Provider: Marianna Alfonso RN) HYDROmorphone (DILAUDID) injection 0.5 mg (CANCELED) 0.5 mg, Intravenous, POST-OP MULTIPLE, Starting on Sun02/14/10 at 1222, Until Sun02/14/10 at 1349, 0.5 mg every 10 minutes PRN for pain of 5-10 on pain scale. Up to 3 mg maximum 1240 ($ Given - Provider: Marianna Alfonso RN)1309 ($ Given - Provider: Marianna Alfonso RN)1330 ($ Given - Provider: Marianna Alfonso RN) hydrOXYzine hcl (VISTARIL) injection 50 mg (COMPLETED) 50 mg, Intramuscular, ONCE, 1 dose, On Sun02/14/10 at 1230, Intended only for IM administration; do not give IV, SC, or intra-arterially 1237 ($ Given - Provider: Marianna Alfonso RN) nicotine (NICODERM CQ) patch 14 mg (CANCELED) 14 mg, Administer over 24 Hours, DAILY, First dose on Sun02/12/10 at 1530, Until Discontinued, Remove old patch before applying new patch. 0900 (Not Administered - Provider: Arturo Gregg RN - Reason: Refused-Patient) 0923 ($ Given - Provider: Namrata Pruett RN) 0839 ($ Given - Provider: Joyce Galloway, JACK) nicotine (NICODERM CQ) remove patch 1 Patch (CANCELED) 1 patch, Remove patch, AT BEDTIME, First dose (after last modification) on Sun02/13/10 at 2100, Until Discontinued 2100 ($ Given - Provider: Sharmila Raphael, JACK) 2100 ($ Given - Provider: Remedios Bennett RN) Continuous Medication Order 02/14/2010 02/15/2010 02/16/2010 dextrose 5 % and 0.45% nacl infusion (CANCELED) at 75 mL/hr, Intravenous, CONTINUOUS, Starting on Sun02/11/10 at 2030, Until Sun02/15/10 at 1519 0316 ($ New Bag/Syringe - Provider: Sharmila Raphael RN) PRN Medication Order 02/14/2010 02/15/2010 02/16/2010 hydrocodone-acetaminophen (VICODIN) 5-500 MG tablet 1-2 Tab (CANCELED) 1-2 tablet, Oral, EVERY 4 HOURS PRN, Pain, Starting on Sun02/15/10 at 1519, Until Nancy 02/17/10 at 0557, Maximum allowable Acetaminophen amount = 4 Grams / 24 hours. 1533 ($ Given - Provider: Namrata Pruett RN)202 ($ Given - Provider: Remedios Bennett, JACK) 0339 ($ Given - Provider: Padmini Adames RN)0839 ($ Given - Provider: Joyce Galloway, JACK) HYDROmorphone (DILAUDID) injection 1 mg (CANCELED) 1 mg, Intravenous, EVERY 4 HOURS PRN, Pain, Starting on Sun02/11/10 at 2028, Until Sun02/15/10 at 1519 0410 ($ Given - Provider: Sharmila Raphael RN)1734 ($ Given - Provider: Lolly Love)2136 ($ Given - Provider: Sharmila Raphael RN) 0321 ($ Given - Provider: Sharmila Raphael, JACK)0733 ($ Given - Provider: Janice Cross RN)1211 ($ Given - Provider: Namrata Pruett RN) ketorolac (TORADOL) injection 15 mg () 15 mg, Intravenous, EVERY 6 HOURS PRN, Pain, Starting on 02/14/10 at 1350, Until 02/16/10 at 1349, For moderate pain (Pain scale 4 to 6). PRN if not administered in the OR. 0918 ($ Given - Provider: Namrata Pruett RN)1533 ($ Given - Provider: Namrata Pruett RN) magnesium hydroxide (MILK OF MAGNESIA) suspension 30 mL (CANCELED) 30 mL, Oral, PRN, Constipation, Starting on Sun02/16/10 at 1241, Until Nancy 02/17/10 at 0557, Shake well before using 1247 ($ Given - Provider: Joyce Galloway RN) morphine injection 2-4 mg (CANCELED) 2-4 mg, Intravenous, EVERY 1 HOUR PRN, Pain, Starting on 02/14/10 at 1350, Until Nancy 02/17/10 at 0557, For severe pain (pain scale 7-10) Watch for lethargy 1455 ($ Given - Provider: Lolly Love) ondansetron (ZOFRAN) injection 4 mg (CANCELED) 4 mg, Intravenous, EVERY 4 HOURS PRN, Nausea/Vomiting, Starting on Sun02/11/10 at 2028, Until Nancy 02/17/10 at 0557, If prochlorperazine or promethazine is not effective 0025 ($ Given - Provider: Cleo Perera RN) 0918 ($ Given - Provider: Namrata Pruett RN)1554 ($ Given - Provider: Namrata Pruett RN) temazepam (RESTORIL) capsule 15 mg (CANCELED) 15 mg, Oral, AT BEDTIME PRN, Insomnia, Starting on 02/12/10 at 2155, Until 02/16/10 at 1243 2152 ($ Given - Provider: Sharmila Raphael RN) documented in this encounter Care Teams Diabetes Nurse Relationship Specialty Start Date End Date Mellisa Johnson DO OIG SANCTIONED!! DO NOT USE!! PCP - General 02/07/10 documented as of this encounter
--- OUTSIDE RECORDS SUMMARY | 2024-08-03 01:38 | XMS_ITS | Encounter Summary ---
Author Organization [facility] Address [address] [place] [address] [address] [place] [address] Phone Care Team Providers Care Wheel Truing Machine Tender Name Role Phone Daisha Staley MD Primary Care Provider + Encounter Details Date Type Department Care Team (Late st Contact Info) Description 03/26/2023 Orders Only [address] [place] [address] Rolando Lang, NEO [address] [place] [address] Chlamydia contact (Primary Dx) Social History Tobacco Use Types [...] on file 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 gonorrhoeae/C. trachomatis Amplification Urine (03/26/2023 1:57 PM CDT) C. trachomatis Not Detected Not Detected [facility] N. gonorrhoeae Not Detected Not Detected [facility] Comment: Interpretive Data Testing performed by the [facility]. This assay detects Chlamydia trachomatis and Neisseria gonorrhoeae by nucleic acid amplification testing (NAAT). This test is approved by the [place] Food and Drug Administration and the performance characteristics have been verified by the laboratory. The performance characteristics of this test have not been evaluated in individuals less than 14 years of age. Current Interpretive Data was last revised on 2018. Urine (None) 03/26/2023 1:57 PM CDT 03/26/2023 4:44 PM CDT Rolando Lang [facility] MICROBIOLOGY - NERAL ORDERABLES Final Result [facility] Department [place] [address] documented in this encounter Visit Diagnoses Diagnosis Chlamydia contact- Primary Contact with or exposure to venereal diseases documented in this encounter Care Teams Wheel Truing Machine Tender Relationship Specialty Start Date End Date Daisha Staley MD [facility] [address] Brett MON [address] [place] [id number] PCP - General Internal Medicine 02/06/23 documented as of this encounter
--- OUTSIDE RECORDS SUMMARY | 2024-08-03 01:38 | XMS_ITS | Referral Summary ---
Author Organization [facility] Address [address] [place] [address] Care Team Providers Care Wrapping Machine Helper Name Role Phone Daisha Staley MD Primary [...] 07/25/2023 Assessment & Plan (09/17/2023 2:32 PM BEEF CATTLE FARMER): Unable to tolerate bupropion, discussed possibly starting chantix vs gum/patches, she plans to try patches. Assessment & Plan (07/25/2023 9:24 AM BEEF CATTLE FARMER): We discussed the risks of smoking including cardiovascular disease, pulmonary disease, osteoporosis and cancer risks. We talked about reducing risks through smoking cessation. We reviewed approaches to quitting smoking including behavioral changes; nicotine replacement with gums, patches, lozenges; medications such as buproprion or chantix. I also gave resources such as [facility] smoking cessation clinic and 2-551-BXKT-NOW for additional support. I spent 4 minutes discussing smoking and smoking cessation. Rx for bupropion sent. Chlamydia contact 03/26/2023 Psoriatic arthritis 02/20/2023 Assessment & Plan (07/25/2023 9:24 AM BEEF CATTLE FARMER): Patient transitioning care to [facility], had been on steroids and leflunomide, stopped on her own, feels her symptoms are stable. Will refer to rheumatology. Assessment & Plan (02/20/2023 1:57 PM CDT): Follows with rheumatology. Stable. History of gestational diabetes 02/20/2023 Lymphadenopathy 02/20/2023 Assessment & Plan (07/25/2023 9:25 AM BEEF CATTLE FARMER): Has had lymph node dissection in the past, with benign pathology, notes worsening again, especially since off steroids. Will refer to hematology for further evaluation. Assessment & Plan (02/20/2023 1:57 PM CDT): Has had lymph node dissection in the past, with benign pathology. Has follow up with hematology scheduled. Will monitor. Lumbar disc herniation with radiculopathy 2016 Assessment & Plan (09/17/2023 2:31 PM BEEF CATTLE FARMER): Patient currently taking tramadol daily as well [...] Influenza, Trivalent, IM (MDV) 06/11/2015,2009 Tdap 11/25/2010 Social History Tobacco Use Types Packs/Day Years [...] on file Legal Sex Female 4:23 PM BEEF CATTLE FARMER Gender Identity Not on file Sexual Orientation Not on file Last Filed Vital Signs Vital Sign Reading Time Taken Comments Blood Pressure 120/80 09/17/2023 9:43 AM BEEF CATTLE FARMER Pulse 88 09/17/2023 9:43 AM BEEF CATTLE FARMER Temperature - - Respiratory Rate - - Oxygen Saturation 98% 09/17/2023 9:43 AM BEEF CATTLE FARMER Inhaled Oxygen Concentration - - Weight 97.5 kg (214 lb 14.4 oz) 09/17/2023 9:43 AM BEEF CATTLE FARMER Height 167.6 cm (5' 6 ) 09/17/2023 9:43 AM BEEF CATTLE FARMER Body Mass Index 34.69 09/17/2023 9:43 AM BEEF CATTLE FARMER Plan of Treatment Not on file Insurance MEDICARE MEDICARE MEDICARE [facility] Care Teams Wrapping Machine Helper Relationship Specialty Start Date End Date Daisha Staley MD [address] [address] Brett [place] [address] [place] [id number] PCP - General Internal Medicine 02/06/23
--- OUTSIDE RECORDS SUMMARY | 2024-08-03 01:38 | XMS_ITS | Encounter Summary ---
Author Organization [facility] Facility Care Team Providers Care Telephonic Rn Name Role Phone Unavailable Primary Care Provider Unavailabl e Encounter Details Date Type Department Care Team (Latest Contact Info) Description 10/24/2012 12:50 PM CDT Hospital Encounter [facility] Wiliam Smith MD [address] [id number] [place] [address] Lumbosacral spondylosis without myelopathy; Disorder of sacrum Social History Tobacco Use Types Packs/Day Years Used Date Smoking Tobacco: Never Assessed Comments Unknown Sex and Gender Information Value Date Recorded Sex Assigned at Not on file 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
--- OUTSIDE RECORDS SUMMARY | 2024-08-03 01:38 | XMS_ITS | CONTINUITY OF CARE DOCUMENT ---
Author Name dante howell Address Unknown Organization [facility] Address [address] [facility] [address] [place] [address] Phone [phone] Care Team Providers Care Cycle Manager Name Role Phone Carlos MARRERO, Aly Unavailable [phone] Matthieu Campbell MD Unavailable [phone] Dionicio CASTANEDA DO Unavailable [phone] INSURANCE PROVIDERS Payer name Policy type / Coverage type [place] red green party [place] PART B Medicare [id number]
--- OUTSIDE RECORDS SUMMARY | 2024-08-03 01:38 | XMS_ITS | Encounter Summary ---
Author Organization [facility] Address [address] [place] [address] Care Team Providers Care Openstack Cloud Consulting Architect Name Role Phone Hilda Eden DYE COLORIST DYER-DIRECTOR RETIREMENT Primary Care Provider [phone] Reason for Visit * Auth/Cert Specialty Diagnoses / Procedures Referred By Reva t Referred To Contact Diagnoses Neoplasm of uncertain behavior of skin Procedures EXCISION MASS AXILLARY Referral ID Status Reason Start Date Expiration Date Visits Re quested Visits Authorized [id number] 1 1 Encounter Details Date Type Department Care Team (Late st Contact Info) Description 11/10/2014 9:16 AM CDT Anesthesia Event [facility] - Perioperative Surgery [address] [place] [address] Mahesh Schneider, DO [address] [place] [address] Anthony Dutta MD [address] [place] [address] Anesthesia Record Procedure Summary Procedure Name Responsible Anesthesiologist Anesthesia Start Time Anesthesia Stop Time EXCISION MASS RIGHT AXILLARY (Axilla) 11/10/14 0916 11/10/14 1011 Events Date Time Event Comment 11/10/2014 0735 0916 An Start 0916 An Start Data 0916 PT Reassessment Patient and Vital Signs reassessed prior to induction. 0921 An Intubation Smooth inducti on and easy, atraumatic intubation. Breath sounds equal bilat after intubation. 1002 Extubation Suctioned and e xtuated without difficulty. 1006 an stop data 1006 Elect Sign The providers l isted as staff are the responsible providers for the case. To PACU responding verbally. 1011 An Stop Meds Name Total midazolam (VERSED) 1 mg/mL injection 2 m g fentaNYL (SUBLIMAZE) 50 mcg/mL injection 100 mcg propofol 10 mg/mL injection 100 mg succinylcholine (ANECTINE) 20 mg/mL inje ction 100 mg dexamethasone (DECADRON) 4 mg/ml injecti on 4 mg ondansetron (ZOFRAN) 2 mg/mL injection 4 mg ceFAZolin (ANCEF) 2 g IVPB 2 g lactated ringers infusion 500 mL * Agents Name Insp. N2O Exp. Desflurane O2 Insp. Desflurane * Blood No blood administrations on file. Lines, Drains, and Airways Type Details Placement Removal RETIRED Procedural Site 02/14/10; 1415; Anterior; Other (comments) (4 lapriscopic incisions w/ 2x2 gauze. Dry and intact w/ no d); 11/10/14; 183402/14/10 1415 by Marianna Alfonso RN 11/10/14 1835 by Generic, Auto Release RETIRED Procedural Site 11/10/14; Right; Axilla; 11/10/14; 183411/10/14 0000 by Mahesh Borja RN 11/10/141834 by Generic, Auto Release Peripheral IV Date: 11/10/14; Time : 0710; Orientation: Left; Placed By: Tosin; Tolerance: Well 11/10/14 0710 by Liseth Carter RN 11/10/14 1229 by Lenore Barillas RN ETT Date: 11/10/14; Time : 0921; Placed By: Burton Wright CRNA; Vent: easy mask; Induction: Standard IV; Blade Type: Lara; Blade Size: 3; Laryngoscopy View: Grade 1 (full cords); Tube: Endotracheal Tube; Placement: Oral; Tube Type: Cuffed-inflated; Tube Size(mm): 7 MM; Depth of Insertion: 22 CM; Measured From: lips; Cuff Vol(mL): 7 mL; Verified By: Direct visualization, Bilateral breath sounds, Chest Auscultation, CO2 Monitor 11/10/14 0921 by Burton Wright APRN-CRNA 11/10/14 1002 by Burton Wright APRN-CRNA documented in this encounter Social History Tobacco Use Types Packs/Day Years [...] as of this encounter Progress Notes * Burton Wright APRN-CRNA - 11/10/2014 3:40 PM CDT ANESTHESIA POSTPROCEDURE EVALUATION Vera Purdy is a 29 y.o. female Temp: 36.4 ??C Pulse: 89 Resp: 16 BP: 103/61 mmHg SpO2: 93 % Pain Rating Score #1: 5 Anesthesia Type: general Mental status: sufficiently recovered from acute administration of anesthesia to participate in theevaluation. Level of consciousness: awake No numbness, tingling or visual disturbances present. General appearance: well-appearing Respiratory function: natural airway. Cardiac: stable Pain: comfortable/acceptable PONV: None Postop hydration: adequate. Patient may be released from anesthesia care. A postop evaluation was performed on this patient with the following assessment: no apparent anesthesia complications documented in this encounter Consult Notes * Anthony Dutta MD - 11/10/2014 7:12 AM CDT Pre-anesthesia Evaluation Procedure(s): EXCISION MASS RIGHT AXILLARY Vital Signs: Temp: 36.3 ??C (11/10 652) Pulse: 95 (11/10 652) Resp: 16 (11/10 652) BP: 133/82 mmHg (11/10 652) SpO2: 94 % (11/10 652) BMI: Estimated body mass index is 42.79 kg/(m^2) as calculated from the following: Height as of this encounter: 5' 6 (1.676 m). Weight as of this encounter: 265 lb (120.203 kg). History: Past Medical History Diagnosis Date ??? Polycystic ovaries ??? Overweight, obesity and other hyperalimentation(278) ??? Trichomonas 2007 treated ??? Generalized anxiety disorder ??? Depressive disorder, not elsewhere classified ??? GERD (gastroesophageal reflux disease) ??? Pure hypercholesterolemia ??? Bipolar 1 disorder Past Surgical History Procedure Laterality Date ??? Tympanoplasty corrective hearing ??? Cholecystectomy ??? Hysteroscopy ??? section reports that she quit smoking about 4 months ago. Her smoking use included Cigarettes. She has a 4 pack-year smoking history. She has never used smokeless tobacco. She reports that she does not drinkalcohol or use illicit drugs. Allergies: is allergic to adhesive sensitivity. Medications: Prescriptions prior to admission Medication Sig Dispense Refill ??? l-methylfolate (DEPLIN) 15 MG tablet Take [...] Tab by mouth at bedtime. ??? folic qael-ujubqlzfzj-egjokkrubvgjby (FOLGARD) 0.8-10-0.115 MG tablet Take 1 Tab by mouth once daily. ??? aspirin EC (ECOTRIN) 81 MG tablet Take 81 mg by mouth once daily. ??? Vit-Fe Fumarate-FA ( VITAMIN) 28-0.8 MG tablet Take 1 Tab by mouth daily. No current facility-administered medications on file prior to encounter. Current Outpatient Prescriptions on File Prior to Encounter Medication Sig Dispense Refill ??? Vit-Fe Fumarate-FA ( VITAMIN) 28-0.8 MG tablet Take 1 Tab by mouth daily. Physical Exam: NPO status: no solids since midnight Oriented to person, place and time Airway: II Dental exam findings: normal/ok Pulmonary exam: breath sounds CTA Heart sounds: S1 S2 ECG reviewed Plan for Anesthesia: ASA Score: 2. Anesthesia plan: general Planned method of induction: intravenous Planned postop destination: PACU Anesthesia plan, risks and benefits discussed with patient Anesthesia consent: obtained Plan accepted yes Discussed anesthesia plan with: anesthesiologist. documented in this encounter Plan of Treatment Not on file documented as of this encounter Visit Diagnoses Not on filedocumented in this encounter Administered Medications Inactive Administered Medications - up to 3 most recent administrations Medication Order MAR Action Action Date Dose Rate Site ceFAZolin (ANCEF) IVPB PRN, Starting on Sun11/10/14 at 0916, Until Sun11/10/14 at 1011, Anesthesia Intra-op $ Given 11/10/2014 9:16 AM CDT 2 g dexamethasone (DECADRON) injection PRN, Nausea/Vomiting, Starting on Sun11/10/14 at 0924, Until Sun11/10/14 at 1011, Anesthesia Intra-op $ Given 11/10/2014 9:24 AM CDT 4 mg fentaNYL (SUBLIMAZE) injection PRN, Starting on Sun11/10/14 at 0916, Until Sun11/10/14 at 1011, Anesthesia Intra-op $ Given 11/10/2014 9:16 AM CDT 100 mcg lactated ringers infusion at 20 mL/hr, Intravenous, PRE-OP CONTINUOUS, Starting on Sun11/10/14 at 0700, Until Sun11/10/14 at 1335, Pre-op $ New Bag/Syringe 11/10/2014 9:16 AM CDT $ New Bag/Syringe 11/10/2014 7:02 AM CDT 20 mL/ hr midazolam (VERSED) injection PRN, Starting on Sun11/10/14 at 0914, Until Sun11/10/14 at 1011, Anesthesia Intra-op $ Given 11/10/2014 9:14 AM CDT 2 m g ondansetron (ZOFRAN) injection PRN, Nausea/Vomiting, Starting on Sun11/10/14 at 0936, Until Sun11/10/14 at 1011, Anesthesia Intra-op $ Given 11/10/2014 9:36 AM CDT 4 mg propofol (DIPRIVAN) injection PRN, Starting on Sun11/10/14 at 0921, Until Sun11/10/14 at 1011, Anesthesia Intra-op $ Given 11/10/2014 9:21 AM CDT 100 mg succinylcholine (ANECTINE) injection PRN, Starting on Sun11/10/14 at 0921, Until Sun11/10/14 at 1011, Anesthesia Intra-op $ Given 11/10/2014 9:21 AM CDT 100 mg documented in this encounter Care Teams Openstack Cloud Consulting Architect Relationship Specialty Start Date End Date Hilda Eden APRN-DIRECTOR RETIREMENT [address] [place] [id number] PCP - General Nurse Practitioner 11/05/14 01/02/18 documented as of this encounter
--- OUTSIDE RECORDS SUMMARY | 2024-08-03 01:38 | XMS_ITS | Encounter Summary ---
Author Organization [facility] Address [address] [place] [address] Care Team Providers Care Packager Machine Name Role Phone Unavailable Primary Care Provider Unavailabl e Encounter Details Date Type Department Care Team (Late st Contact Info) Description 07/06/2013 9:29 PM LINE CLEANER - 07/07/2013 3:59 AM LINE CLEANER Hospital En[place] [address] [place], [place] [id number] Abdominal pain, right upper quadrant Social History Tobacco Use Types Packs/Day Years Used Date Smoking Tobacco: Never Assessed Comments Unknown Sex and Gender Information Value Date Recorded Sex Assigned at Not on file Legal Sex Female 4:23 PM LINE CLEANER Gender Identity Not on file Sexual Orientation Not on file documented as of this encounter Plan of Treatment Not on file documented as of this encounter Procedures Procedure Name Priority Date/Time Associated Diagnosis Comments CT CHEST W CONTRAST Routine 07/07/2013 3 :05 AM LINE CLEANER DISCHARGE LABORATORY CUMULATIVE REPORT 07/07/2013 XR CHEST 1 VIEW Routine 07/06/2013 11:04 PM LINE CLEANER URINALYSIS Routine 07/06/2013 9:50 PM LINE CLEANER PLASMA TROPONIN I Routine 07/06/2013 9:4 5 PM LINE CLEANER PLASMA PROTHROMBIN TIME (PT) Routine 07/06/2013 9:45 PM LINE CLEANER PLASMA PARTIAL THROMBOPLASTIN TIME (PTT) Routine 07/06/2013 9:45 PM LINE CLEANER PLASMA LIPASE Routine 07/06/2013 9:45 PM LINE CLEANER PLASMA COMPREHENSIVE METABOLIC PANEL Routine 07/06/2013 9:45 PM LINE CLEANER PLASMA AMYLASE Routine 07/06/2013 9:45 PM LINE CLEANER BLOOD CELL COUNT (CBC), MORPHOLOGIC EXAM Routine 07/06/2013 9:45 PM LINE CLEANER BLOOD B-TYPE NATRIURETIC PEPTIDE (BNP) Routine 07/06/2013 9:45 PM LINE CLEANER ELECTROCARDIOGRAPHY (ECG) 07/06/2013 URINE MICROBIOLOGY Routine 07/06/2013 12 :00 AM LINE CLEANER documented in this encounter Results * CT Chest W Contrast (07/07/2013 3:05 AM LINE CLEANER) Anatomical Region Laterality Modality Body N/A Computed Tomogra phy 07/07/2013 3:05 AM LINE CLEANER Narrative 07/07/2013 10:58 AM LINE CLEANER DATE OF EXAM: ??Jul 07 2013 ??3:05AM Acc#: ??[id number] ??ECT 0051 - CT Chest W ?? DIAGNOSIS: ??SOB / PASSING OUT CLINICAL HISTORY: ?? Pain_Pain ?? RESULT: \ EXAMINATION: CT CHEST WITH CONTRAST HISTORY: Shortness of breath. TECHNIQUE: ??Transaxial computed tomographic images of the chest were obtained following uneventful administration of 100 mL Optiray 350 intravenous contrast. ??Coronal reformatted images were submitted by the technologist. FINDINGS: ?? The heart size is normal without pericardial effusion. The major vascular structures are normal in course and caliber. There is no suspicious supraclavicular, axillary, or mediastinal lymphadenopathy. There is no pleural effusion or pneumothorax. ?? There is no suspicious pulmonary nodule or focal pulmonic consolidation. Patchy ground glass opacities are seen predominantly in the lower lobes. Incidental note was made of an azygos lobe, normal variant. There is no evidence of pulmonary edema. Bone windows demonstrate no suspicious lytic or blastic osseous lesion. IMPRESSION: ?\ 1. PATCHY BILATERAL LOWER LOBE GROUND GLASS OPACITIES, NONSPECIFIC AND COULD REPRESENT AN INFECTIOUS OR INFLAMMATORY PROCESS. ? DOPE POURER: ??MICHELL TRANSCRIBE DATE/TIME: ??Jul 07 2013 10:21A RADIOLOGIST: ??CHUY VELAZQUEZ M.D. ??READ ON: ??Jul 07 2013 ??8:54A ORDERING DR: ALEXEY HARLEY M.D. THIS DOCUMENT HAS BEEN ELECTRONICALLY SIGNED BY: ??CHUY VELAZQUEZ M.D. ??ON: ??Jul 07 2013 10:58A Requesting Fax: ??[phone] Procedure Note Provider, MD Arnaud - 12/03/2016 DATE OF EXAM: Jul 07 2013 3:05AM Acc#: [id number] ECT 0051 - CT Chest W DIAGNOSIS: SOB / PASSING OUT CLINICAL HISTORY: Pain_Pain RESULT: \ EXAMINATION: CT CHEST WITH CONTRAST HISTORY: Shortness of breath. TECHNIQUE: Transaxial computed tomographic images of the chest were obtained following uneventful administration of 100 mL Optiray 350 intravenous contrast. Coronal reformatted images were submitted by the technologist. FINDINGS: The heart size is normal without pericardial effusion. The major vascular structures are normal in course and caliber. There is no suspicious supraclavicular, axillary, or mediastinal lymphadenopathy. There is no pleural effusion or pneumothorax. There is no suspicious pulmonary nodule or focal pulmonic consolidation. Patchy ground glass opacities are seen predominantly in the lower lobes. Incidental note was made of an azygos lobe, normal variant. There is no evidence of pulmonary edema. Bone windows demonstrate no suspicious lytic or blastic osseous lesion. IMPRESSION: \ 1. PATCHY BILATERAL LOWER LOBE GROUND GLASS OPACITIES, NONSPECIFIC AND COULD REPRESENT AN INFECTIOUS OR INFLAMMATORY PROCESS. DOPE POURER: MICHELL TRANSCRIBE DATE/TIME: Jul 07 2013 10:21A RADIOLOGIST: CHUY VELAZQUEZ M.D. READ ON: Jul 07 2013 8:54A ORDERING DR: ALEXEY HARLEY M.D. THIS DOCUMENT HAS BEEN ELECTRONICALLY SIGNED BY: CHUY VELAZQUEZ M.D. ON: Jul 07 2013 10:58A Requesting us Historical Provider MD ARITAG CT PROCEDURES Final R esult * DISCHARGE LABORATORY CUMULATIVE REPORT (07/07/2013) Narrative 07/07/2013 Ordered by an unspecified provider. us Historical Provider LAB BLOOD ORDERABLES Lizabeth l Result * XR Chest 1 View (07/06/2013 11:04 PM LINE CLEANER) Anatomical Region Laterality Modality Body, Chest N/A Radiographic Sherrie ging 07/06/2013 11:0 4 PM LINE CLEANER Narrative 07/07/2013 11:11 AM LINE CLEANER DATE OF EXAM: ??Jul 06 2013 11:04PM Acc#: ??[id number] ??EDX 0031 - XR Chest Portable ?? DIAGNOSIS: ??SOB / PASSING OUT CLINICAL HISTORY: ?? Pain_Pain ?? RESULT: \ CHEST FINDINGS: ??Portable AP view of the chest is compared with the previous study dated 03/08/2007. Lungs clear. Heart is not enlarged. ??Incidental note made of an azygos lobe of no significance. ?? IMPRESSION: ?\ NO ACTIVE DISEASE. DOPE POURER: ??MICHELL TRANSCRIBE DATE/TIME: ??Jul 07 2013 ??9:31A RADIOLOGIST: ??OLEGARIO OSULLIVAN M.D. ??READ ON: ??Jul 07 2013 ??8:34A ORDERING DR: ALEXEY HARLEY M.D. THIS DOCUMENT HAS BEEN ELECTRONICALLY SIGNED BY: ??OLEGARIO OSULLIVAN M.D. ??ON: ??Jul 07 2013 11:10A Requesting Fax: ??[phone] Procedure Note Provider, MD Arnaud - 12/03/2016 DATE OF EXAM: Jul 06 2013 11:04PM Acc#: [id number] EDX 0031 - XR Chest Portable DIAGNOSIS: SOB / PASSING OUT CLINICAL HISTORY: Pain_Pain RESULT: \ CHEST FINDINGS: Portable AP view of the chest is compared with the previous study dated 03/08/2007. Lungs clear. Heart is not enlarged. Incidental note made of an azygos lobe of no significance. IMPRESSION: \ NO ACTIVE DISEASE. DOPE POURER: MICHELL TRANSCRIBE DATE/TIME: Jul 07 2013 9:31A RADIOLOGIST: OLEGARIO OSULLIVAN M.D. READ ON: Jul 07 2013 8:34A ORDERING DR: ALEXEY HARLEY M.D. THIS DOCUMENT HAS BEEN ELECTRONICALLY SIGNED BY: OLEGARIO OSULLIVAN M.D. ON: Jul 07 2013 11:10A Requesting Historical Provider IMG XR PROCEDURES Final R esult * (ABNORMAL) Urinalysis (07/06/2013 9:50 PM LINE CLEANER) WBC, ur 0 - 5 0 - 5 /hpf HISTORICA L RESULTS Color, ur Yellow HISTORICAL RESULTS RBC, ur 0 - 5 0 - 5 /hpf HISTORICA L RESULTS Clarity, ur Hazy(A) Clear HISTORIC AL RESULTS Epithelial cells, ur 5 - 10 /hpf HISTORICAL RESULTS pH, ur 6.0 5 - 7 HISTORICAL RESULTS Bacteria, ur Trace HISTORI CORNELL RESULTS Specific gravity, ur 1.009 1.001 - 1.033 HISTORICAL RESULTS Mucus Present HISTORICAL RESULTS Protein, ur Negative Negative HISTORIC AL RESULTS Leukocyte clumps, ur Present HISTORICAL RESULTS Glucose, ur Negative Negative HISTORIC AL RESULTS Ketones, ur Negative Negative HISTORIC AL RESULTS Bilirubin, ur Negative Negative HISTOR ICAL RESULTS U Blood Negative Negative HISTORICAL RESULTS Urobilinogen, quant, ur Normal 0.2 - 1.0 mg/dl HISTORICAL RESULTS Nitrites, ur Negative Negative HISTORI CORNELL RESULTS Leukocyte esterase, ur Moderate(A) Negative HISTORICAL RESULTS Urine 07/06/2013 9:50 PM LINE CLEANER Alexey Harley MD LAB BLOOD ORDERABLES Final Result HISTORICAL RESULTS * (ABNORMAL) Blood cell count (CBC), morphologic exam (07/06/2013 9:45 PM LINE CLEANER) WBC 9.0 5.0 - 10.0 K/cumm HISTORICAL RESULTS RBC 5.26(H) 4.20 - 5.20 M/cumm HISTORICAL RESULTS Hgb 15.5(H) 12.0 - 15.0 g/dl HISTORICAL RESULTS Hct 45.4 37.0 - 47.0 % HISTORICAL RESULTS MCV 86.3 82.0 - 96.0 fl HISTORICAL RESULTS MCH 29.5 27.0 - 32.0 pg HISTORICAL RESULTS MCHC 34.1 29.0 - 35.0 g/dl HISTORICAL RESULTS Platelets 265 150 - 450 K/cumm HISTORICAL RESULTS RDW 43.0 36.4 - 46.3 fl HISTORICAL RESULTS Rdw 13.8 11.5 - 14.5 % HISTORICAL RESULTS MPV 8.8 8.6 - 12.6 fl HISTORICAL RESULTS Neutrophils 55.1 42.0 - 85.0 % HISTORICAL RESULTS Neutrophils, abs 4.9 2.1 - 8.5 K/cumm HISTORICAL RESULTS Lymphocytes 37.1 16.0 - 52.0 % HISTORICAL RESULTS Lymphocytes, abs 3.3 0.8 - 5.2 K/cumm HISTORICAL RESULTS Monos 5.8 1.0 - 13.0 % HISTORICAL RESULTS Monocytes, absolute 0.5 0.0 - 1.3 K/cumm HISTORICAL RESULTS Eosinophils 1.6 0.0 - 7.0 % HISTORICAL RESULTS Eosinophils, abs 0.1 0.0 - 0.7 K/cumm HISTORICAL RESULTS Basophils 0.2 0.0 - 4.0 % HISTORICAL RESULTS Basophils, abs 0.0 0.0 - 0.4 K/cumm HISTORICAL RESULTS Young granulocytes, % 0.2 0.0 - 1.0 % HISTORICAL RESULTS Young granulocyte 0.02 0.00 - 0.10 K/cumm HISTORICAL RESULTS NRBC 0.0 0.0 - 0.2 #/100 WBC HISTORICAL RESULTS NRBC, abs 0.00 0.00 - 0.01 K/cumm HISTORICAL RESULTS Blood specimen (specimen) 07/06/2013 9:45 PM LINE CLEANER Alexey Harley MD LAB BLOOD ORDERABLES Final Result HISTORICAL RESULTS * Plasma prothrombin time (PT) (07/06/2013 9:45 PM LINE CLEANER) Pathologist [facility] Prothrombin time (PT) 12.6 11.5 - 15.5 seconds HISTORICAL RESULTS INR 0.95 0.81 - 1.21 HISTORIC AL RESULTS Plasma 07/06/2013 9:45 PM LINE CLEANER us Alexey Harley MD LAB BLOOD ORDERABLES Final Result Performing Organization Address [facility] de Phone Number HISTORICAL RESULTS * Plasma partial thromboplastin time (PTT) (07/06/2013 9:45 PM LINE CLEANER) [facility] APTT 31.4 21.5 - 39.0 seconds HISTORICAL RESULTS Plasma 07/06/2013 9:45 PM LINE CLEANER Alexey Harley MD LAB BLOOD ORDERABLES Final Result Performing Organization Address [facility] de Phone Number HISTORICAL RESULTS * Blood B-type natriuretic peptide (BNP) (07/06/2013 9:45 PM LINE CLEANER) [facility] BNP 12 0 - 100 pg/ml HISTORICAL RESULTS Blood specimen (specimen) 07/06/2013 9:45 PM LINE CLEANER Result [facility] Alexey Harley MD LAB BLOOD ORDERABLES Final Result Performing Organization Address [facility] de Phone Number HISTORICAL RESULTS * Plasma troponin I (07/06/2013 9:45 PM LINE CLEANER) [facility] Troponin I 0.02 0.00 - 0.14 ng/ml HISTORICAL RESULTS Comment: Troponin Reference Ranges: Normal: ?0.00 - 0.14 ng/mL Indeterminate: ?0.15 - 0.50 ng/mL DC / Cardiac Muscle Damage: ?>0.50 ng/mL Plasma 07/06/2013 9:45 PM LINE CLEANER Result [facility] us Alexey Harley MD LAB BLOOD ORDERABLES Final Result Performing Organization Address [facility] de Phone Number HISTORICAL RESULTS * (ABNORMAL) Plasma comprehensive metabolic panel (07/06/2013 9:45 PM LINE CLEANER) BUN 7(L) 8 - 24 mg/dl HISTORICAL RESULTS Glucose 84 70 - 199 mg/dl HISTORICAL RESULTS Sodium 139 135 - 145 mmol/L HISTORICAL RESULTS K, pl 3.5 3.5 - 5.1 mmol/L HISTORICAL RESULTS Chloride 108 100 - 114 mmol/L HISTORICAL RESULTS CO2 23 22 - 32 mmol/L HISTORICAL RESULTS Creatinine 0.66 0.60 - 1.30 mg/dl HISTORICAL RESULTS AST 26 7 - 40 Units/L HISTORICAL RESULTS ALT 38 1 - 45 Units/L HISTORICAL RESULTS Alk phos 90 30 - 110 Units/L HISTORICAL RESULTS Calcium 8.6 8.4 - 10.5 mg/dl HISTORICAL RESULTS Bilirubin 0.30 0.10 - 1.30 mg/dl HISTORICAL RESULTS Protein, pl 6.5 6.0 - 8.3 g/dl HISTORICAL RESULTS Alb 3.9 3.2 - 4.8 g/dl HISTORICAL RESULTS Globulin 2.6 2.0 - 4.3 g/dl HISTORICAL RESULTS A. gap 12 8 - 16 mmol/L HISTORICAL RESULTS eGFR >90 90 - 200 ml/min/1.7 3 m2 HISTORICAL RESULTS Comment: If this individual is -[place], multiply result by 1.21 Repeated results of less than 60 is indicative of chronic kidney disease. MDRD formula has not been validated on individuals greater than 70 years old. Plasma 07/06/2013 9:45 PM LINE CLEANER us Alexey Harley MD LAB BLOOD ORDERABLES Final Result Performing Organization Address City/[facility]/ZIP Co de Phone Number HISTORICAL RESULTS * (ABNORMAL) Plasma lipase (07/06/2013 9:45 PM LINE CLEANER) Lip 53(H) 20 - 50 Units/L HISTORICAL RESULTS Plasma 07/06/2013 9:45 PM LINE CLEANER us Alexey aHrley MD LAB BLOOD ORDERABLES Final Result HISTORICAL RESULTS * Plasma amylase (07/06/2013 9:45 PM LINE CLEANER) Della, pl 38 28 - 100 Units/L HISTORICAL RESULTS Plasma 07/06/2013 9:45 PM LINE CLEANER us Alexey Harley MD LAB BLOOD ORDERABLES Final Result Performing Organization Address [facility] Co de Phone Number HISTORICAL RESULTS * Urine Microbiology (07/06/2013 12:00 AM LINE CLEANER) 07/06/2013 Narrative HISTORICAL RESULTS - 07/09/2013 11:48 AM LINE CLEANER [facility] ?Patient Name: ?VERA PARKER ?Med. Rec#: ?? [id number] ?Pt. Acct.#: ??[id number] ?Birthdate: ?? 1985 ?Age / Sex: ?? 28Y / F ?Location: ?[facility] (Emergenc ?Admit Date: ??07/06/2013 ?Discharge Date: ? 07/07/2013 ?Doctor: ?Alexey Harley ?Patient Type: ?[facility] Emergency Room 2 Culture, Urine ? Collected: 07/06/2013 21:50 Specimen: Urine ?? Specimen Source: Clean Voided Specimen Status: Final ??Last Update: 07/09/2013 09:52 Organism ?? Less than 10,000 cfu/ml of ?? multiple Gram positive organisms Comment ? This culture result is consistent with contamination ?? by normal genital-perineal stephanie. us Historical Provider LAB MICROBIOLOGY - GENERA L ORDERABLES Final Result Performing Organization Address [facility]/ZIP Co de Phone Number HISTORICAL RESULTS * ELECTROCARDIOGRAPHY (ECG) (07/06/2013) Narrative 07/06/2013 Ordered by an unspecified provider. us Historical Provider ECG ORDERABLES Final Res ult documented in this encounter Visit Diagnoses Diagnosis Abdominal pain, right upper quadrant documented in this encounter
--- OUTSIDE RECORDS SUMMARY | 2024-08-03 01:38 | XMS_ITS | Encounter Summary ---
Author Organization [facility] Address [address] [place] [address] Care Team Providers Care Business Relationship Manager Name Role Phone Hilda Eden APRN-SEWING MACHINE ASSEMBLER Primary Care Provider [phone] Reason for Visit * Auth/Cert Specialty Diagnoses / Procedures Referred By Reva holbrook Referred To Contact Diagnoses Neoplasm of uncertain behavior of skin Procedures EXCISION MASS AXILLARY Referral ID Status Reason Start Date Expiration Date Visits Re quested Visits Authorized [id number] 1 1 Encounter Details Date Type Department Care Team (Late st Contact Info) Description 11/10/2014 8:40 AM CDT - 11/10/2014 9:51 AM CDT Surgery [facility] - Perioperative Surgery [address] [place] [address] Matthieu Saeed DO RETIRED EXCISION MASS RIGHT AXILLARY Surgery Details Date/Time Status Location OR Service Patient Class Case Class Case Type Trauma Case? 11/10/2014 8:40 AM Posted [facility] OR OR 04 General Surgery Day Care Elective > 5 days Panel 1 Procedure LRB Anes Op Region Wound Class Comments EXCISION MASS RIGHT AXILLARY General Axilla C lean Surgeon Surgeon Role Service Panel Matthieu Saeed DO Primary General 1 Special Needs Pt.'s last name needs updating by registration, current - Vera Vitale documented in this encounter Social History Tobacco [...] mg by mouth once daily. 06/14/2017 folic irlg-aeawgrkjqz-nqibvhalo renetta (FOLGARD) 0.8-10-0.115 MG tablet Take 1 [...] as of this encounter H&P Notes * Christophe Matthieu, DO - 11/05/2014 1:18 PM CDT PATIENT: [...] alert and oriented x3, emotional state normal. Life Enrichment Director: <> Breast: See chief complaint Rectal: <> [...] Saeed DO - 11/10/2014 8:30 PM CDT [facility] OPERATIVE REPORT PATIENT: : VERA PURDY MR#: [id number] ADMIT DATE: 11/10/2014 CSN: [id number] DATE OF SURGERY: 11/10/2014 : 1985 PHYSICIAN: Matthieu Saeed DO ROOM: [facility] PREOPERATIVE DIAGNOSIS: Right axillary lipoma. POSTOPERATIVE DIAGNOSIS: [...] CONDITION: DISPOSITION: Matthieu Saeed DO MGV/MODL #: [id number] documented in this encounter Plan of Treatment [...] Case Report Surgical Pathology Report ? Case: [id number] ? Authorizing Provider: ??Matthieu Roopaleandra, DO ?Collected: ? 11/10/2014 09:45 AM ? [...] ??Skin and mature adipose tissue (see microscopic) /roopa 11/12/2014 4:14 PM CDT [facility] Gross [...] cassettes B5/B6. SEEMA/alis 11/12/2014 4:14 PM CDT [facility] Microscopic Description The right axillary tissue [...] lipoma if a distinct mass was seen. AB/roopa 11/12/2014 4:14 PM CDT [facility] Pathology/Cytology TISSUE SPECIMEN FROM AXILLA / Unknown 11/10/2014 9:45 AM CDT 11/11/2014 7:54 AM CDT Comment:799.9 Miscellaneous samples (specimen) TISSUE SPECIMEN FROM AXILLA / Unknown 11/10/2014 9:45 AM CDT 11/11/2014 7:54 AM CDT Comment:799.9 Matthieu Saeed DO LAB - PATHOLOGY/CYTO LOGY ORDERABLES [facility] [address] [place] [address] * HCG URINE QUALITATIVE - POINT OF CARE (IP) (11/10/2014 8:05 AM CDT) HCG Qual Urine Negative Negative [facility] QC Verified Yes Yes [facility] POC T TESTING Urine specimen (specimen) URINE / Unknown 11/10/2014 8:05 AM CDT Krunal Aleman MD LAB - POINT OF CARE ORDERABLES [facility] [id number] [place] [id number] documented in this encounter Visit Diagnoses Diagnosis Preop examination- Primary Preoperative examination, unspecified Neoplasm of uncertain behavior of skin [238.2] Neoplasm of uncertain behavior of skin Neoplasm of uncertain behavior of skin documented in this encounter Administered Medications Inactive Administered Medications - up to 3 most recent administrations Medication Order MAR Action Action Date Dose Rate Site 0.9% nacl irrigation solution PRN, Starting on Sun11/10/14 at 0932, Until Sun11/10/14 at 1008, Intra-op $ Given 11/10/2014 9:32 AM CDT 1,000 mL acetaminophen (TYLENOL) tablet 1,000 mg 1,000 mg, Oral, PRE-OP ONCE, 1 dose, On Sun11/10/14 at 0652, Maximum allowable Acetaminophen amount = 4 Grams (4000 mg) / 24 hours., Pre-op $ Given 11/10/2014 7:02 AM CDT 1,000 mg bupivacaine 0.5% - epinephrine 1:200,000 (PF) injection PRN, Starting on Sun11/10/14 at 0932, Until Sun11/10/14 at 1008, Intra-op $ Given 11/10/2014 9:32 AM CDT 10 mL Operative Site famotidine (PEPCID) tablet 20 mg 20 mg, [...] 1 dose, On Sun11/10/14 at 0652, Pre-op 0702 ($ Given - [...] 0932 ($ Given - Prov ider: Matthieu Saeed, DO - Comment: on table) bupivacaine 0.5% [...] prior to arrival morning of surgery, Pre-op 0701 ($ Given - Prov ider: Liseth Carter [...] RN) documented in this encounter Care Teams Business Relationship Manager Relationship Specialty Start Date End Date Hilda Eden APRN-SEWING MACHINE ASSEMBLER [address] [place] [address] PCP - General Nurse Practitioner 11/05/14 01/02/18 documented as of this encounter
--- OUTSIDE RECORDS SUMMARY | 2024-08-03 01:38 | XMS_ITS | Encounter Summary ---
Author Organization [facility] Healthcare Address [address] [place] [address] Care Team Providers Care Nuclear Operator Name Role Phone Unavailable Primary Care Provider Unavailabl e Encounter Details Date Type Department Care Team (Late st Contact Info) Description 11/05/2012 11:08 PM CDT - 11/06/2012 12:29 AM CDT Hospital Encounter [facility] Velia Brewer Contusion of hand; Fall; Unspecified place of occurrence; Other external cause of injury or poisoning Social History Tobacco Use Types Packs/Day Years Used Date Smoking Tobacco: Never Assessed Comments Unknown Sex and Gender Information Value Date Recorded Sex Assigned at Not on file Legal Sex Female 4:23 PM LOG HOOKER Gender Identity Not on file Sexual Orientation Not on file documented as of this encounter Plan of Treatment Not on file documented as of this encounter Procedures Procedure Name Priority Date/Time Associated Diagnosis Comments HAND RADIOGRAPHY Routine 11/06/2012 12:0 2 AM CDT documented in this encounter Results * HAND RADIOGRAPHY (11/06/2012 12:02 AM CDT) Anatomical Region Laterality Modality N/A Radiographic Sherrie ging 11/06/2012 12:0 2 AM CDT Narrative 11/06/2012 10:54 AM CDT DATE OF EXAM: ??Nov 06 2012 12:02AM Acc#: ??[id number] ??EDX [id number] - XR Hand R ?? DIAGNOSIS: ??HAND PAIN CLINICAL HISTORY: ? RESULT: \ RIGHT HAND, EXAM DATE 11/05/2012: CLINICAL HISTORY: ??Right hand pain after fall. FINDINGS: ??PA, lateral and oblique views of the right hand were submitted for review without prior for comparison. Bony alignment is normal. ??The joint spaces are well-maintained. ??There is no acute or healing fracture. ??The overlying soft tissues are normal. IMPRESSION: ?\ NORMAL RIGHT HAND. ? CLINICAL LAB SPECIALIST: ??TR6 TRANSCRIBE DATE/TIME: ??Nov 06 2012 ??9:04A RADIOLOGIST: ??KIKO AC M.D. ??READ ON: ??Nov 06 2012 ??9:00A ORDERING DR: VELIA BERWER M.D. THIS DOCUMENT HAS BEEN ELECTRONICALLY SIGNED BY: ??KIKO AC M.D. ??ON: ??Nov 06 2012 10:54A Procedure Note Provider, Arnaud, - 12/03/2016 DATE OF EXAM: Nov 06 2012 12:02AM Acc#: [id number] EDX [id number] - XR Hand R DIAGNOSIS: HAND PAIN CLINICAL HISTORY: RESULT: \ RIGHT HAND, EXAM DATE 11/05/2012: CLINICAL HISTORY: Right hand pain after fall. FINDINGS: PA, lateral and oblique views of the right hand were submitted for review without prior for comparison. Bony alignment is normal. The joint spaces are well-maintained. There is no acute or healing fracture. The overlying soft tissues are normal. IMPRESSION: \ NORMAL RIGHT HAND. CLINICAL LAB SPECIALIST: TR6 TRANSCRIBE DATE/TIME: Nov 06 2012 9:04A RADIOLOGIST: KIKO AC M.D. READ ON: Nov 06 2012 9:00A ORDERING DR: VELIA BREWER M.D. THIS DOCUMENT HAS BEEN ELECTRONICALLY SIGNED BY: KIKO AC M.D. ON: Nov 06 2012 10:54A us Historical Provider IMG XR PROCEDURES Final R esult documented in this encounter Visit Diagnoses Diagnosis Contusion of hand Contusion of hand(s) Fall Unspecified fall Unspecified place of occurrence Other external cause of injury or poisoning documented in this encounter
--- OUTSIDE RECORDS SUMMARY | 2024-08-03 01:38 | XMS_ITS | Encounter Summary ---
Author Organization [facility] Address [address] [place] [address] [address] [place] [address] Phone Care Team Providers Care Television Repairman Name Role Phone Daisha Staley MD Primary Care Provider + Encounter Details Date Type Department Care Team (Late st Contact Info) Description 10/15/2023 Orders Only [facility] [address] [place] [address] Daisha Staley MD [address] [place] [address] [address] [place] [address] Social History Tobacco Use Types Packs/Day Years [...] on file Legal Sex Female 4:23 PM FIBERGLASS SKI MAKER Gender Identity Not on file Sexual Orientation Not on file documented as of this encounter Plan of Treatment Not on file documented as of this encounter Visit Diagnoses Not on filedocumented in this encounter Care Teams Television Repairman Relationship Specialty Start Date End Date Daisha Staley MD [facility] [address] Brett MON [address] [place] [id number] PCP - General Internal Medicine 02/06/23 documented as of this encounter
--- OUTSIDE RECORDS SUMMARY | 2024-08-03 01:38 | XMS_ITS | Encounter Summary ---
Author Organization [facility] Healthcare Address [address] [place] [address] Care Team Providers Care Mold Operator Name Role Phone Daisha Staley MD Primary Care Provider + Encounter Details Date Type Department Care Team (Late st Contact Info) Description 03/26/2023 1:55 PM CDT Lab [facility] at the [address] [address] Chlamydia contact Social History Tobacco Use Types Packs/Day Years [...] on file Legal Sex Female 4:23 PM POLICE LIEUTENANT PATROL Gender Identity Not on file Sexual Orientation Not on file documented as of this encounter Plan of Treatment Not on file documented as of this encounter Procedures Procedure Name Priority Date/Time Associated Diagnosis Comments N. GONORRHOEAE/C. TRACHOMATIS AMPLIFICATION Routine 03/26/2023 1:57 PM CDT Chlamydia contact documented in this encounter Results * N. gonorrhoeae/C. trachomatis Amplification Urine (03/26/2023 1:57 PM CDT) C. trachomatis Not Detected Not Detected JODIE RAMIREZ N. gonorrhoeae Not Detected Not Detected JODIE RAMIREZ Comment: Interpretive Data Testing performed by the [facility]. This assay detects Chlamydia [...] CDT 03/26/2023 4:44 PM CDT Rolando Lang WINDOW MACHINE OPERATOR LAB MICROBIOLOGY - NERAL ORDERABLES Final Result JODIE [facility] Department [place] [address] documented in this encounter Visit Diagnoses Diagnosis Chlamydia contact Contact with or exposure to venereal diseases documented in this encounter Care Teams Mold Operator Relationship Specialty Start Date End Date Daisha Staley MD [facility] [address] Brett MON [address] [place] [address] PCP - General Internal Medicine 02/06/23 documented as of this encounter
--- OUTSIDE RECORDS SUMMARY | 2024-08-03 01:39 | XMS_ITS | Encounter Summary ---
Author Organization [facility] Healthcare Address [address] [place] [address] Care Team Providers Care Chlorinator Name Role Phone Unavailable Primary Care Provider Unavailabl e Encounter Details Date Type Department Care Team (Late st Contact Info) Description 07/02/2007 10:13 PM LICENSED EMBALMER SUPERVISOR - 07/03/2007 2:05 AM LICENSED EMBALMER SUPERVISOR Hospital Encounter [facility] Mahesh Valdez Mel E. Social History Tobacco Use Types Packs/Day Years Used Date Smoking Tobacco: Never Assessed Comments Unknown Sex and Gender Information Value Date Recorded Sex Assigned at Not on file Legal Sex Female 4:23 PM LICENSED EMBALMER SUPERVISOR Gender Identity Not on file Sexual Orientation Not on file documented as of this encounter Plan of Treatment Not on file documented as of this encounter Visit Diagnoses Not on filedocumented in this encounter
--- OUTSIDE RECORDS SUMMARY | 2024-08-03 01:39 | XMS_ITS | Encounter Summary ---
Author Organization [facility] Address [address] [place] [address] Care Team Providers Care Bulldozer Press Operator Name Role Phone Meng King MD Primary Care Provider [phone] Reason for Referral * Radiology Services (Routine) - Closed Specialty Diagnoses / Procedures Referred By Contac t Referred To Contact Diagnoses Lymphadenopathy, axillary Procedures US EXT NON VASC LTD RT Ubaldo Cardenas MD [address] [place] [phone] [place] [address] Referral ID Status Reason Start Date Expiration Date V isits Requested Visits Authorized [id number] Closed [facility] CTS 12/26/2023 01/25/2025 1 1 Encounter Details Date Type Department Care Team (Late st Contact Info) Description 12/26/2023 Orders Only [facility] Oncology and Hematology [address] [place] [address] Ubaldo Cardenas MD [address] [place] [address] Lymphadenopathy, axillary (Primary Dx) Social History Tobacco Use Types Packs/Day Years Used Date Smoking Tobacco: Every Day Cigarettes 1 13 Started: 08/13/2021 Smokeless Tobacco: Never Alcohol Use Standard Drinks/Week Comments No 0 (1 standard drink = 0.6 oz pur e alcohol) Sex and Gender Information Value Date Recorded Sex Assigned at Not on file Gender Identity Not on file Sexual Orientation Not on file documented as of this encounter Plan of Treatment Upcoming Encounters Date Type Department Care Team (Late st Contact Info) Description 10/14/2024 11:00 AM KIOSK SALES REPRESENTATIVE Office Visit [facility] Oncology and Hematology - [place] [address] [facility] [address] [place] [address] Ubaldo Cardenas MD [address] [facility] [address] [place] [address] Scheduled Orders Name Type Priority Associated Diagnoses Orde r Schedule US EXT NON VASC LTD RT Imaging Routine Lymphadenopathy, axillary Expected: 12/26/2023, Expires: 12/25/2024 documented as of this encounter Visit Diagnoses Diagnosis Lymphadenopathy, axillary- Primary documented in this encounter Care Teams Bulldozer Press Operator Relationship Specialty Start Date End Date Meng King MD [address] [place] [address] PCP - General Family Practice 11/15/23 documented as of this encounter
--- OUTSIDE RECORDS SUMMARY | 2024-08-03 01:39 | XMS_ITS | Encounter Summary ---
Author Organization [facility] [employer] Address [address] [place] [address] Care Team Providers Care Cp Bleacher Operator Name Role Phone Meng King MD Primary Care Provider [phone] Encounter Details Date Type Department Care Team (Late Contact Info) Description 12/14/2023 Orders Only [facility] Oncology and Hematology [place] [place] [address] Ubaldo Cardenas MD [address] [place] [address] [employer] [address] [address] Social History Tobacco Use Types Packs/Day Years Used Date Smoking Tobacco: Former Cigarettes 1 10 Smokeless Tobacco: Never Alcohol Use Standard Drinks/Week Comments No 0 (1 standard drink = 0.6 oz pur e alcohol) Sex and Gender Information Value Date Recorded Sex Assigned at Not on file Gender Identity Not on file Sexual Orientation Not on file documented as of this encounter Plan of Treatment Upcoming Encounters Date Type Department Care Team (Late Contact Info) Description 10/14/2024 11:00 AM HOUSE PIPING INSPECTOR Office Visit [facility] Oncology and Hematology - [place] [place] [address] [place] [address] [place] [address] [place] [address] documented as of this encounter Procedures Procedure Name Priority Date/Time Associated Diagnosis Comments PET BONE IMG W CT SKL BSE MID THG Routine 12/13/2023 10:28 AM CDT documented in this encounter Results * PET BONE IMG W CT SKB MDTH (12/13/2023 10:28 AM CDT) Anatomical Region Laterality Modality Other Ubaldo Cardenas MD PE ORDERABLES documented in this encounter Visit Diagnoses Not on filedocumented in this encounter Care Teams Cp Bleacher Operator Relationship Specialty Start Date End Date Meng King MD [address] [place], [place] [phone] PCP - General Family Practice 11/15/23 documented as of this encounter
--- OUTSIDE RECORDS SUMMARY | 2024-08-03 01:39 | XMS_ITS | Encounter Summary ---
Author Organization [facility] [employer] [facility] Address [address] [place] [address] Care Team Providers Care Top Bottom Attaching Machine Operator Name Role Phone Meng King MD Primary Care Provider [phone] Reason for Referral * Radiology Services (Routine) - Closed Specialty Diagnoses / Procedures Referred By Contac t Referred To Contact Diagnoses Lymphadenopathy, axillary Procedures US HEAD NECK TISSUES Ubaldo Cardenas MD [address] [place] [phone] [place] [address] Referral ID Status Reason Start Date Expiration Date V isits Requested Visits Authorized [id number] Closed [facility] CTS 12/25/2023 01/24/2025 1 1 Encounter Details Date Type Department Care Team (Late st Contact Info) Description 12/25/2023 Orders Only [facility] Oncology and Hematology [place] [address] [facility] [address] [place] [address] Ubaldo Cardenas MD [address] [place] [address] Lymphadenopathy, axillary (Primary Dx) Social [...] st Contact Info) Description 10/14/2024 11:00 AM WAX BLENDER Office Visit [facility] Oncology and Hematology - [place] [address] [facility] [address] [place] [address] Ubaldo Cardenas MD [address] [facility] [address] [place] [address] Scheduled Orders Name Type Priority Associated Diagnoses Orde r Schedule US HEAD NECK TISSUES Imaging Routine Lymphadenopathy, axillary Expected: 12/25/2023, Expires: 12/24/2024 documented as of this encounter Visit Diagnoses Diagnosis Lymphadenopathy, axillary- Primary documented in this encounter Care Teams Top Bottom Attaching Machine Operator Relationship Specialty Start Date End Date Meng King MD [address] [place] [address] PCP - General Family Practice 11/15/23 documented as of this encounter
--- OUTSIDE RECORDS SUMMARY | 2024-08-03 01:39 | XMS_ITS | Encounter Summary ---
Author Organization [facility] Address [address] [place] [address] Care Team Providers Care Patternmaker Pressure Cast Name Role Phone Meng King MD Primary Care Provider [phone] Encounter Details Date Type Department Care Team (Late st Contact Info) Description 05/13/2024 External Device Data STL ABSTRACTION Provider, Abstract NO ADDRESS ON FILE Social History Tobacco Use Types Packs/Day Years [...] st Contact Info) Description 10/14/2024 11:00 AM LITHOPRESS OPERATOR Office Visit [facility] Oncology and Hematology - [place] [address] [facility] [address] [place] [address] Ubaldo Cardenas MD [address] [facility] [address] [place] [address] documented as of this encounter Visit Diagnoses Not on filedocumented in this encounter Care Teams Patternmaker Pressure Cast Relationship Specialty Start Date End Date Meng King MD [address] [place] [phone] PCP - General Family Practice 11/15/23 documented as of this encounter
--- OUTSIDE RECORDS SUMMARY | 2024-08-03 01:39 | XMS_ITS | Encounter Summary ---
Author Organization [facility] Healthcare Address [address] [place] [address] Care Team Providers Care Nurse First Aid Name Role Phone Unavailable Primary Care Provider Unavailabl e Encounter Details Date Type Department Care Team (Late st Contact Info) Description 03/08/2007 11:38 AM CDT - 03/08/2007 2:35 PM CDT Hospital Encounter [facility] Hamilton Win MD [facility] [place] [address] Mellisa Johnson Social History Tobacco Use Types Packs/Day Years Used Date Smoking Tobacco: Never Assessed Comments Unknown Sex and Gender Information Value Date Recorded Sex Assigned at Not on file Legal Sex Female 4:23 PM REVERSER Gender Identity Not on file Sexual Orientation Not on file documented as of this encounter Plan of Treatment Not on file documented as of this encounter Visit Diagnoses Not on filedocumented in this encounter
--- OUTSIDE RECORDS SUMMARY | 2024-08-03 01:39 | XMS_ITS | Encounter Summary ---
Author Organization [facility] Address [address] [place] [address] Care Team Providers Care Fitting Room Inspector Name Role Phone Meng King MD Primary Care Provider [phone] Reason for Visit * Reason Comments Follow Up Encounter Details Date Type Department Care Team (Late st Contact Info) Description 12/24/2023 2:00 PM CDT Office Visit [facility] Oncology and Hematology - [place] [address] [place] [address] [address] [place] [address] Ubaldo Cardenas MD [address] [facility] [address] [place] [address] Chronic anemia (Primary Dx); Lymphadenopathy, axillary Social History Tobacco Use Types Packs/Day Years [...] Sign Reading Time Taken Comments Blood Pressure 155/85 12/24/2023 2:02 PM CDT Pulse 74 12/24/2023 2:02 PM CDT Temperature 36.5 ??C (97.7 ??F) 12/24/2023 2:00 PM CD T Respiratory Rate 16 12/24/2023 2:00 PM CDT Oxygen Saturation 96% 12/24/2023 2:00 PM CDT Inhaled Oxygen Concentration - - Weight 103.9 kg (229 lb) 12/24/2023 2:00 PM CDT Height - - Body Mass Index 36.96 12/04/2023 10:28 AM CDT documented in this encounter Progress Notes * Ubaldo Cardenas MD - 12/24/2023 3:21 PM CDT HEMATOLOGY / ONCOLOGY PROGRESS NOTE Patient Identification: Name: Vera Vitale Age: 38 y.o. Sex: female : 1985 DIAGNOSIS Axillary lymphadenopathy Iron deficiency without anemia CURRENT TREATMENT Oral iron 325 mg twice a day TREATMENT HISTORY SUBJECTIVE Patient came to the office for follow-up visit. She is quite tired and fatigue. Denies any bleedingincluding melena hematochezia. She still complain of painful right axillary and right neck lymphadenopathy. No other new complaints. Review of system Constitutional: Patient did not mention fevers, sweats, complain of tiredness and fatigue HEENT: Patient did not mention sinus congestion, hearing or vision problems Respiratory: Patient did not mention cough, dyspnea, wheeze Cardiovascular: Patient did not mention chest pain, exertional chest pressure/discomfort, nausea, syncope, shortness of breath GI: Patient did not mention constipation, diarrhea, dsyphagia, reflux symptoms, vomiting, melena : Patient did not mention dysuria, frequency, incontinence, urgency Integumentary system: no lymphadenopathy, sweats, flushing Musculoskeletal: Patient not mention: myalgia, arthralgia Neurological: Patient did not mention blurry or disturbed vision, numbness/weakness, dizziness Skin: No lumps, bumps or rashes. Objective: Vital signs in last 24 hours: As per nursing note Exam: General appearance: alert, cooperative, no distress, appears stated age Head: normocephalic, without obvious abnormality, atraumatic Eyes: conjunctivae/corneas clear, EOM's intact Ears: normal external ear canals AU Nose: Nares normal. Septum midline. Mucosa normal. No drainage or sinus tenderness Throat: Lips, mucosa, and tongue normal. Teeth and gums normal Neck: supple, symmetrical, trachea midline. Lungs: clear to auscultation bilaterally Heart: regular rate and rhythm, S1, S2 normal, no murmur, click, rub or gallop Abdomen: soft, non-tender. Bowel sounds normal. No masses, No organomegaly Extremities: extremities normal, atraumatic, no cyanosis or edema Skin: Skin color, texture, turgor normal. No rashes or lesions Lymph nodes: No lymphadenopathy Neuro: No obvious focal deficit PATH LABS Labs from December 04 showed creatinine 0.7 total bilirubin 0.5 LDH 174 C-reactive protein less than 0.5 B12 911 soluble transferrin receptor elevated at 2.60 flow cytometric analysis showed no evidenceof lymphoma and leukemia, hemoglobin 13.9 WBC 6.6 platelet 344,000 ferritin 5.73 iron saturation 8%iron 35 @IMAGEIMP@ Assessment: Plan: Patient Active Problem List Diagnosis Date Noted Diet controlled gestational diabetes mellitus (GDM) in third trimester 06/26/2018 Chest pain Dyspnea on exertion Nausea 09/18/2016 Bipolar affective disorder, currently depressed, moderate 09/15/2016 CLOTILDE (generalized anxiety disorder) 09/15/2016 S/P section 09/13/2016 Cholestasis during 09/13/2016 Nausea and vomiting during 08/21/2016 Diarrhea 08/21/2016 related fatigue in third trimester 08/21/2016 SOB (shortness of breath) 08/21/2016 Overview Note: Exertional SOB Viral gastritis 07/24/2016 Feeling pelvic pressure during in second trimester, antepartum 06/02/201608/06 L ruptured ectopic s/p dx lap, L fallopian; percocet, ADAT 08/07/2015 Tobacco use 08/06/2015 Normal (single liveborn) 11/23/2010 C section 11/2111/21/2010 Iron deficiency without anemia. She has been taking oral iron twice a day for 3 years duration and remains quite iron deficient. Will start her on iron infusion. Right axillary and neck lymphadenopathy. PET scan done on December 12 showed no evidence of lymphoma but she is still worried about the lymphadenopathy and has some discomfort with that. Will order the ultrasound of the right axilla and biopsy based on the ultrasound. Previous ultrasound of the neck doneon November 2022 showed subcutaneous nodule in the neck measuring 1.5 x 0.3 cm consistent with reactive size lymph node in the left neck. I will discuss ultrasound and biopsy results in 2 weeks and we will see her back in 3 months with repeat labs after the iron infusion. ? TOBACCO COUNSELING She is not a tobacco/nicotine user. 12/24/2023 Ubaldo Cardenas MD documented in this encounter Plan of Treatment Upcoming Encounters Date Type Department Care Team (Late st Contact Info) Description 10/14/2024 11:00 AM MASH FILTER OPERATOR Office Visit [facility] Oncology and Hematology - [place] [address] [facility] [address] [place] [address] Ubaldo Cardenas MD [address] [facility] [address] [place] [address] Scheduled Orders Name Type Priority Associated Diagnoses Orde r Schedule CBC WITH DIFFERENTIAL Lab Stat Chronic anemia Expected: 03/17/2024, Expires: 12/23/2024 FERRITIN Lab Routine Chronic anemia Expected: 03/17/2024, Expires: 12/23/2024 IRON, TIBC, AND PERCENT SATURATION Lab Routine Chronic anemia Expected: 03/17/2024, Expires: 12/23/2024 BIOPSY Procedures Routine Lymphadenopathy, axillary Ordered: 12/24/2023 documented as of this encounter Visit Diagnoses Diagnosis Chronic anemia- Primary Anemia, unspecified Lymphadenopathy, axillary documented in this encounter Care Teams Fitting Room Inspector Relationship Specialty Start Date End Date Meng King MD [address] [place] [address] PCP - General Family Practice 11/15/23 documented as of this encounter
--- OUTSIDE RECORDS SUMMARY | 2024-08-03 01:39 | XMS_ITS | Encounter Summary ---
Author Organization [facility] Healthcare Address [address] [place] [address] Care Team Providers Care Vice President Mission Integration Name Role Phone Unavailable Primary Care Provider Unavailabl e Encounter Details Date Type Department Care Team (Late st Contact Info) Description 08/25/2012 1:42 PM DIPPER AND BAKER - 08/25/2012 6:06 PM DIPPER AND BAKER Hospital Encounter [facility] CLINMorena Ham, DO [address] [facility] [address] [place] [address] Low back pain; Unspecified disorder of menstruation and other abnormal bleeding from female genital tract; Bipolar affective disorder (HCC) Social History Tobacco Use Types Packs/Day Years Used Date Smoking Tobacco: Never Assessed Comments Unknown Sex and Gender Information Value Date Recorded Sex Assigned at Not on file Legal Sex Female 4:23 PM DIPPER AND BAKER Gender Identity Not on file Sexual Orientation Not on file documented as of this encounter Plan of Treatment Not on file documented as of this encounter Procedures Procedure Name Priority Date/Time Associated Diagnosis Comments SERUM CHORIONIC GONADOTROPIN (HCG) IDENTIFICATION Routine 08/25/2012 4:00 PM DIPPER AND BAKER PLASMA BASIC METABOLIC PANEL Routine 08/25/2012 4:00 PM DIPPER AND BAKER BLOOD CELL COUNT (CBC), MORPHOLOGIC EXAM Routine 08/25/2012 4:00 PM DIPPER AND BAKER URINALYSIS Routine 08/25/2012 3:50 PM DIPPER AND BAKER URINE MICROBIOLOGY Routine 08/25/2012 12 :00 AM DIPPER AND BAKER DISCHARGE LABORATORY CUMULATIVE REPORT 08/25/2012 documented in this encounter Results * Serum chorionic gonadotropin (HCG) identification (08/25/2012 4:00 PM DIPPER AND BAKER) HCG, qual Negative Negative HISTORICAL RESULTS Serum 08/25/2012 4:00 PM DIPPER AND BAKER Morena Curtis DO LAB BLOOD ORDERABLES Final Result HISTORICAL RESULTS * (ABNORMAL) Blood cell count (CBC), morphologic exam (08/25/2012 4:00 PM DIPPER AND BAKER) WBC 7.7 5.0 - 10.0 K/cumm HISTORICAL RESULTS RBC 5.55(H) 4.20 - 5.20 M/cumm HISTORICAL RESULTS Hgb 15.9(H) 12.0 - 15.0 g/dl HISTORICAL RESULTS Hct 46.8 37.0 - 47.0 % HISTORICAL RESULTS MCV 84.3 82.0 - 96.0 fl HISTORICAL RESULTS MCH 28.6 27.0 - 32.0 pg HISTORICAL RESULTS MCHC 34.0 29.0 - 35.0 g/dl HISTORICAL RESULTS Platelets 251 150 - 450 K/cumm HISTORICAL RESULTS RDW 43.8 36.4 - 46.3 fl HISTORICAL RESULTS Rdw 14.4 11.5 - 14.5 % HISTORICAL RESULTS MPV 8.6 8.6 - 12.6 fl HISTORICAL RESULTS Neutrophils 71.6 42.0 - 85.0 % HISTORICAL RESULTS Neutrophils, abs 5.5 2.1 - 8.5 K/cumm HISTORICAL RESULTS Lymphocytes 22.1 16.0 - 52.0 % HISTORICAL RESULTS Lymphocytes, abs 1.7 0.8 - 5.2 K/cumm HISTORICAL RESULTS Monos 5.1 1.0 - 13.0 % HISTORICAL RESULTS Monocytes, absolute 0.4 0.0 - 1.3 K/cumm HISTORICAL RESULTS Eosinophils 0.8 0.0 - 7.0 % HISTORICAL RESULTS Eosinophils, abs 0.1 0.0 - 0.7 K/cumm HISTORICAL RESULTS Basophils 0.1 0.0 - 4.0 % HISTORICAL RESULTS Basophils, abs 0.0 0.0 - 0.4 K/cumm HISTORICAL RESULTS Young granulocytes, % 0.3 0.0 - 1.0 % HISTORICAL RESULTS Young granulocyte 0.02 0.00 - 0.10 K/cumm HISTORICAL RESULTS NRBC 0.0 0.0 - 0.2 #/100 WBC HISTORICAL RESULTS NRBC, abs 0.00 0.00 - 0.01 K/cumm HISTORICAL RESULTS Blood specimen (specimen) 08/25/2012 4:00 PM DIPPER AND BAKER Yooli LAB BLOOD ORDERABLES Final Result Performing Organization Address [facility] Co de Phone Number HISTORICAL RESULTS * Plasma basic metabolic panel (08/25/2012 4:00 PM DIPPER AND BAKER) BUN 10 8 - 24 mg/dl HISTORICAL RESULTS Glucose 94 70 - 99 mg/dl HISTORICAL RESULTS Sodium 136 135 - 145 mmol/L HISTORICAL RESULTS K, pl 3.6 3.5 - 5.1 mmol/L HISTORICAL RESULTS Chloride 100 100 - 114 mmol/L HISTORICAL RESULTS CO2 25 22 - 32 mmol/L HISTORICAL RESULTS Creatinine 0.72 0.6 - 1.3 mg/dl HISTORICAL RESULTS Calcium 8.7 8.4 - 10.5 mg/dl HISTORICAL RESULTS A. gap 15 8 - 16 mmol/L HISTORICAL RESULTS eGFR >90 90 - 200 ml/min/1.7 3 m2 HISTORICAL RESULTS Comment: If this individual is -Surinamese, multiply result by 1.21 Repeated results of less than 60 is indicative of chronic kidney disease. MDRD formula has not been validated on individuals greater than 70 years old. Plasma 08/25/2012 4:00 PM DIPPER AND BAKER HouserieAmisha Kirsten DO LAB BLOOD ORDERABLES Final Result Performing Organization Address [facility] de Phone Number HISTORICAL RESULTS * (ABNORMAL) Urinalysis (08/25/2012 3:50 PM DIPPER AND BAKER) Color, ur Yellow HISTORICAL RESULTS Clarity, ur Hazy(A) Clear HISTORIC AL RESULTS pH, ur 5.0 5 - 7 HISTORICAL RESULTS Specific gravity, ur 1.012 1.001 - 1.033 HISTORICAL RESULTS Protein, ur 1+(A) Negative HISTORIC AL RESULTS Glucose, ur Negative Negative HISTORIC AL RESULTS Ketones, ur Negative Negative HISTORIC AL RESULTS Bilirubin, ur Negative Negative HISTOR ICAL RESULTS U Blood Large(A) Negative HISTORICAL RESULTS Urobilinogen, quant, ur Normal 0.2 - 1.0 mg/dl HISTORICAL RESULTS Nitrites, ur Negative Negative HISTORI CORNELL RESULTS Leukocyte esterase, ur Trace(A) Negative HISTORICAL RESULTS WBC, ur 5 - 10(A) 0 - 5 /hpf HISTORICA L RESULTS RBC, ur 0 - 5 0 - 5 /hpf HISTORICA L RESULTS Epithelial cells, ur 5 - 10 /hpf HISTORICAL RESULTS Bacteria, ur 1+ HISTORI CORNELL RESULTS Mucus Present HISTORICAL RESULTS Urine 08/25/2012 3:50 PM DIPPER AND BAKER Morena Curtis DO LAB BLOOD ORDERABLES Final Result HISTORICAL RESULTS * DISCHARGE LABORATORY CUMULATIVE REPORT (08/25/2012) Narrative 08/25/2012 Ordered by an unspecified provider. Historical Provider LAB BLOOD ORDERABLES Lizabeth l Result * Urine Microbiology (08/25/2012 12:00 AM DIPPER AND BAKER) 08/25/2012 Narrative HISTORICAL RESULTS - 08/27/2012 12:31 PM DIPPER AND BAKER [facility] ?Patient Name: ?VERA PARKER ?Med. Rec#: ?? [id number] ?Pt. Acct.#: ??[id number] ?Birthdate: ?? 1985 ?Age / Sex: ?? 27Y / F ?Location: ?[facility] (Emergenc ?Admit Date: ??08/25/2012 ?Discharge Date: ? 08/25/2012 ?Doctor: ?Morena Curtis ?Patient Type: ?[facility] Emergency Room 2 Culture, Urine ? Collected: 08/25/2012 15:50 Specimen: Urine ?? Specimen Source: Clean Voided Specimen Status: Final ??Last Update: 08/27/2012 09:51 Organism ?? Less than 10,000 cfu/ml of ?? multiple Gram positive organisms Comment ? This culture result is consistent with contamination ?? by normal genital-perineal stephanie. us Historical Provider LAB MICROBIOLOGY - GENERA L ORDERABLES Final Result HISTORICAL RESULTS documented in this encounter Visit Diagnoses Diagnosis Low back pain Lumbago Unspecified disorder of menstruation and other abnormal bleeding from female genital tract Bipolar affective disorder (HCC) Bipolar disorder, unspecified documented in this encounter
--- OUTSIDE RECORDS SUMMARY | 2024-08-03 01:39 | XMS_ITS | Encounter Summary ---
Author Organization [facility] Healthcare Address [address] [place] [address] Care Team Providers Care Director Insurance Name Role Phone Unavailable Primary Care Provider Unavailabl e Encounter Details Date Type Department Care Team (Late st Contact Info) Description 10/02/2010 3:21 PM COLLARETTE SEPARATOR - 10/02/2010 11:59 PM COLLARETTE SEPARATOR Hospital Encounter [facility]INCON[facility] Other complication of , antepartum; Abdominal pain Social History Tobacco Use Types Packs/Day Years Used Date Smoking Tobacco: Never Assessed Comments Unknown Sex and Gender Information Value Date Recorded Sex Assigned at Not on file Legal Sex Female 4:23 PM COLLARETTE SEPARATOR Gender Identity Not on file Sexual Orientation Not on file documented as of this encounter Plan of Treatment Not on file documented as of this encounter Visit Diagnoses Diagnosis Other complication of , antepartum Abdominal pain Abdominal pain, unspecified site documented in this encounter
--- OUTSIDE RECORDS SUMMARY | 2024-08-03 01:39 | XMS_ITS | Clinical Summary ---
Author Organization [facility] Address [address] [place] [address] Care Team Providers Care Building Rental Superintendent Name Role Phone Meng King MD Primary Care Provider [phone] Allergies Active Allergy Reactions Criticality Noted Date Comments Adhesive Other (See Comments) 04/12/2012 Skin irritation Unclassified Drug Other (See Comments) 03/17/20 18 control pills cause vaginal bleeding Medications Medication Sig Dispensed Refills Start Date End Date Status traMADoL (ULTRAM) 50 mg tablet Take 100 mg by mouth. 10/03/2022 Active gabapentin (NEURONTIN) 100 mg capsule Take 600 mg by mouth daily. 11/07/2023 Active promethazine (PHENERGAN) 25 mg tablet Take 25 mg by mouth every 6 hours as needed for Nausea/Emesis. Active Active Problems Problem Noted Date Diagnosed Date Diet controlled gestational diabetes mellitus (GDM) in third trimester 06/26/2018 Nausea 09/18/2016 Bipolar affective disorder, currently depressed, moderate 09/15/2016 CLOTILDE (generalized anxiety disorder) 09/15/2016 S/P section 09/13/2016 Cholestasis during 09/13/2016 Nausea and vomiting during 08/21/2016 Diarrhea 08/21/2016 related fatigue in third trimester 04/2017 SOB (shortness of breath) 08/21/2016 Overview (08/21/2016): Exertional SOB Viral gastritis 07/24/2016 Feeling pelvic pressure duri ng in second trimester, antepartum 06/02/201608/06 L ruptured ectopic s/p dx lap, L fallopian; percocet, ADAT 08/07/2015 Tobacco use 08/06/2015 Normal (single liveborn) 11/23/2010 C section /11 11/21/2010 Dyspnea on exertion Chest pain Resolved Problems Problem Noted Date Diagnosed Date Resolved Date R/O labor 11/20/2010 11/20/2010 MIL, cervidil, elevated BP, ALT elevated, trace protein, B+ 11/20/2010 11/21/2010 Encounters Date Type Department Care Team Description 05/13/2024 External Device Data STL ABSTRACTION Provider, Abstract from Last 3 Months Immunizations Name Administration Dates Next Due (ADACEL/BOOSTRIX)(10 YR UP) TDAP VACCINE, 0.5ML, IM 11/25/2010 INFLUENZA VACCINE QUADRIVALENT 3 YR UP PF IM 10/2016 Influenza Seasonal Unspecified Formulation IM ,07/13/2010 Family History Medical History Relation Name Comments Diabetes Brother Diabetes Father Thyroid Disease Father Hypertension Mother Relation Name Status Comments Brother Alive Father Alive Mother Alive Social History Tobacco Use Types [...] Sign Reading Time Taken Comments Blood Pressure 126/79 04/08/2024 9:56 AM CDT Pulse 67 04/08/2024 9:56 AM CDT Temperature 36.8 ??C (98.2 ??F) 04/08/2024 9:56 AM CD T Respiratory Rate 16 04/08/2024 9:56 AM CDT Oxygen Saturation 98% 04/08/2024 9:56 AM CDT Inhaled Oxygen Concentration - - Weight 106.6 kg (235 lb) 04/08/2024 9:56 AM CDT Height 167.6 cm (5' 6 ) 12/04/2023 10:28 AM CDT Body Mass Index 37.93 12/04/2023 10:28 AM CDT Plan of Treatment Upcoming Encounters Date Type Department Care Team (Late st Contact Info) Description 10/14/2024 11:00 AM CONVERTING SUPERVISOR Office Visit [facility] Oncology and Hematology - Al[place]io [address] [facility] [address] [place] [address] Ubaldo Cardenas MD [address] [facility] [address] [place] [address] Health Maintenance Due Date Last Done Comments Pre-Diabetes and Diabetes Screening 1985 PNEUMOCOCCAL VACCINE 0-64 YEARS (1 of 2 - PCV) 1991 HEPATITIS B VACCINES (1 of 3 - 19+ 3-dose series) 2004 CERVICAL CANCER SCREENING 2015 DTAP/TDAP/TD VACCINES (2 - T d or Tdap) 11/25/2020 11/25/2010 INFLUENZA VACCINE (#1) 2024 7, 06/11/2015, 07/13/2010 HPV VACCINES Aged Out No longer eligi ble based on patient's age to complete this topic Advance Directives For more information, please contact: [phone] * Full Code (Latest Code Status on File) Date Activated Date Inactivated Comments 06/26/2018 6:10 PM 06/26/2018 11:03 PM * Full Code Date Activated Date Inactivated Comments 03/23/2018 1:37 AM 03/24/2018 6:03 PM * Full Code Date Activated Date Inactivated Comments 09/18/2016 4:52 PM 09/18/2016 11:35 PM * Full Code Date Activated Date Inactivated Comments 09/13/2016 5:31 PM 09/16/2016 1:33 PM * Full Code Date Activated Date Inactivated Comments 09/13/2016 11:37 AM 09/13/2016 5:31 PM Care Teams Building Rental Superintendent Relationship Specialty Start Date End Date Meng King MD [address] [place] [address] PCP - General Family Practice 11/15/23
--- OUTSIDE RECORDS SUMMARY | 2024-08-03 01:39 | XMS_ITS | Encounter Summary ---
Author Organization [facility] Address [address] [place] [address] Care Team Providers Care Financial Services Sales Representative Name Role Phone Meng King MD Primary Care Provider [phone] Encounter Details Date Type Department Care Team (Late st Contact Info) Description 04/08/2024 External Device Data STL ABSTRACTION Provider, Abstract [...] st Contact Info) Description 10/14/2024 11:00 AM AIRPORT DUTY MANAGER Office Visit [facility] Oncology and Hematology - [place] [address] [facility] [address] [place] [address] Ubaldo Cardenas MD [address] [facility] [address] [place] [address] documented as of this encounter Visit Diagnoses Not on filedocumented in this encounter Care Teams Financial Services Sales Representative Relationship Specialty Start Date End Date Meng King MD [address] [place] [phone] PCP - General Family Practice 11/15/23 documented as of this encounter
--- OUTSIDE RECORDS SUMMARY | 2024-08-03 01:39 | XMS_ITS | Encounter Summary ---
Author Organization [facility] [email or web address] Address [address] [place] [address] Care Team Providers Care Internal Audit Director Name Role Phone Meng King MD Primary Care Provider [phone] Encounter Details Date Type Department Care Team (Late Contact Info) Description 04/08/2024 Orders Only [facility] Oncology and Hematology - Alirio [address] [place] [address] bUaldo Cardenas MD [facility] [employer] [address] [address] Social History Tobacco Use Types [...] (Late Contact Info) Description 10/14/2024 11:00 AM PROCESS SUPERVISOR Office Visit [facility] Oncology and Hematology - [place]io [address] [place] [address] Ubaldo Cardenas MD [facility] [employer] [address] [place] [address] documented as of this encounter Procedures Procedure Name Priority Date/Time Associated Diagnosis Comments CBC WITH AUTODIFFERENTIAL Routine 2023 8:29 AM CDT documented in this encounter Results * CBC WITH AUTODIFFERENTIAL (04/07/2024 8:29 AM CDT) Blood Ubaldo Cardenas MD HEMATOLOGY ORDERABLE S documented in this encounter Visit Diagnoses Not on filedocumented in this encounter Care Teams Internal Audit Director Relationship Specialty Start Date End Date Meng King MD [address] [place] [phone] PCP - General Family Practice 11/15/23 documented as of this encounter
--- OUTSIDE RECORDS SUMMARY | 2024-08-03 01:39 | XMS_ITS | Encounter Summary ---
Author Organization [facility] Address [address] [place] [address] Care Team Providers Care Plywood Layup Line Core Layer Name Role Phone Meng King MD Primary Care Provider [phone] Encounter Details Date Type Department Care Team (Late Contact Info) Description 12/10/2023 Orders Only [facility] Oncology and Hematology [place] [address] [place] [address] Ubaldo Cardenas MD [address] [place] [address] [employer] [address] Social History Tobacco Use Types [...] (Late Contact Info) Description 10/14/2024 11:00 AM PRIMER ASSEMBLER Office Visit [facility] Oncology and Hematology - Alirio [address] [place] [address] [place] [address] [place] [address] [place] [address] documented as of this encounter Procedures Procedure Name Priority Date/Time Associated Diagnosis Comments TRANSFERRIN RECEPTOR TFR SOLUBLE Routine 12/04/2023 1:29 PM CDT documented in this encounter Results * TRANSFERRIN RECEPTOR TFR SOLUBLE (12/04/2023 1:29 PM CDT) Blood Ubaldo Cardenas MD CHEMISTRY ORDERABLES documented in this encounter Visit Diagnoses Not on filedocumented in this encounter Care Teams Plywood Layup Line Core Layer Relationship Specialty Start Date End Date Meng King MD [address] [place], [place] [phone] PCP - General Family Practice 11/15/23 documented as of this encounter
--- OUTSIDE RECORDS SUMMARY | 2024-08-03 01:39 | XMS_ITS | Encounter Summary ---
Author Organization [facility] Healthcare Address [address] [place] [address] Care Team Providers Care Pickling Solution Maker Name Role Phone Unavailable Primary Care Provider Unavailabl e Encounter Details Date Type Department Care Team (Late st Contact Info) Description 09/30/2011 6:13 PM TOUCHER UP - 09/30/2011 10:45 PM TOUCHER UP Hospital [place] [address] [facility] [address] [place] [address] Sciatica; Urinary tract infection; Candidiasis of vulva and vagina Social History Tobacco Use Types Packs/Day Years Used Date Smoking Tobacco: Never Assessed Comments Unknown Sex and Gender Information Value Date Recorded Sex Assigned at Not on file Legal Sex Female 4:23 PM TOUCHER UP Gender Identity Not on file Sexual Orientation Not on file documented as of this encounter Plan of Treatment Not on file documented as of this encounter Visit Diagnoses Diagnosis Sciatica Urinary tract infection Urinary tract infection, site not specified Candidiasis of vulva and vagina documented in this encounter
--- OUTSIDE RECORDS SUMMARY | 2024-08-03 01:39 | XMS_ITS | Encounter Summary ---
Author Organization [facility] Address [address] [place] [address] Care Team Providers Care Tree And Shrub Worker Name Role Phone Meng King MD Primary Care Provider [phone] Encounter Details Date Type Department Care Team (Late st Contact Info) Description 12/11/2023 External Device Data STL ABSTRACTION Provider, Abstract [...] st Contact Info) Description 10/14/2024 11:00 AM YEAST PUSHER Office Visit [facility] Oncology and Hematology - [place] [address] [facility] [address] [place] [address] Ubaldo Cardenas MD [address] [facility] [address] [place] [address] documented as of this encounter Visit Diagnoses Not on filedocumented in this encounter Care Teams Tree And Shrub Worker Relationship Specialty Start Date End Date Meng King MD [address] [place] [phone] PCP - General Family Practice 11/15/23 documented as of this encounter
--- OUTSIDE RECORDS SUMMARY | 2024-08-03 01:39 | XMS_ITS | Encounter Summary ---
Author Organization [facility] Address [address] [place] [address] Care Team Providers Care Senior Interaction Designer Name Role Phone Meng King MD Primary Care Provider [phone] Encounter Details Date Type Department Care Team (Late Contact Info) Description 01/29/2024 Orders Only [facility] Oncology and Hematology - [place] [address] [place] [address] Ubaldo Cardenas MD [facility] [email or web address] [address] [address] Social History Tobacco Use Types [...] (Late Contact Info) Description 10/14/2024 11:00 AM FLOORWORKER Office Visit [facility] Oncology and Hematology - [place] [address] [place] [address] Ubaldo Cardenas MD [facility] [employer] [address] [place] [phone] documented as of this encounter Procedures Procedure Name Priority Date/Time Associated Diagnosis Comments [facility] US HEAD/NECK SOFT TISSUE Routine 01/29/2024 3:28 PM CDT MAMMO BREAST US RIGHT LTD Routine 01/29/2024 9:19 AM CDT documented in this encounter Results * [facility] US HEAD/NECK SOFT TISSUE (01/29/2024 3:28 PM CDT) Ubaldo Cardenas MD [facility] ULTRASOUND * MAMMO BREAST US RIGHT LTD (01/29/2024 9:19 AM CDT) Anatomical Region Laterality Modality Right Other Ubaldo Cardenas MD MAMMO ORDERABLES documented in this encounter Visit Diagnoses Not on filedocumented in this encounter Care Teams Senior Interaction Designer Relationship Specialty Start Date End Date Meng King MD [address] [place] [phone] PCP - General Family Practice 11/15/23 documented as of this encounter
--- OUTSIDE RECORDS SUMMARY | 2024-08-03 01:39 | XMS_ITS | Encounter Summary ---
Author Organization [facility] Healthcare Address [address] [place] [address] Care Team Providers Care Entry Level Marketing Assistant Name Role Phone Unavailable Primary Care Provider Unavailabl e Encounter Details Date Type Department Care Team (Late st Contact Info) Description 06/20/2010 1:10 PM FOUNDATION DRILL OPERATOR HELPER - 06/20/2010 4:33 PM FOUNDATION DRILL OPERATOR HELPER Hospital Encounter [facility] CLINCONV Gavino Christensen MD [address] [place] [address] Dizziness and giddiness; state, incidental Social History Tobacco Use Types Packs/Day Years Used Date Smoking Tobacco: Never Assessed Comments Unknown Sex and Gender Information Value Date Recorded Sex Assigned at Not on file Legal Sex Female 4:23 PM FOUNDATION DRILL OPERATOR HELPER Gender Identity Not on file Sexual Orientation Not on file documented as of this encounter Plan of Treatment Not on file documented as of this encounter Visit Diagnoses Diagnosis Dizziness and giddiness state, incidental documented in this encounter
--- OUTSIDE RECORDS SUMMARY | 2024-08-03 01:39 | XMS_ITS | Encounter Summary ---
Author Organization [facility] [employer] [facility] Address [address] [place] [address] Care Team Providers Care Counter Clerk Tractor Parts Name Role Phone Meng King MD Primary Care Provider [phone] Reason for Visit * Reason Comments Follow Up Encounter Details Date Type Department Care Team (Late st Contact Info) Description 04/08/2024 10:00 AM CDT [facility] On[facility] - [place] [address] [place] [address] [address] [place] [address] Ubaldo Cardenas MD [address] [facility] [address] [place] [address] Chronic anemia (Primary Dx) Social History Tobacco Use Types [...] (235 lb) 04/08/2024 9:56 AM CDT Height - - Body Mass Index 37.93 12/04/2023 10:28 AM CDT documented in this encounter Progress Notes * Ubaldo Cardenas MD - 04/08/2024 10:08 AM CDT HEMATOLOGY / ONCOLOGY PROGRESS NOTE Patient Identification: Name: Vera Vitale Age: 38 y.o. Sex: female : 1985 DIAGNOSIS Axillary lymphadenopathy Iron deficiency without anemia CURRENT TREATMENT Oral iron 325 mg twice a day TREATMENT HISTORY Iron infusion January 15, 2024 SUBJECTIVE Patient came to the office for follow-up visit. She is still complaining of tiredness and fatigue. Denies any new lumps on send lymphadenopathy. She has gained 6 pound weight. No other new complaints. Review of system Constitutional: Patient did not mention fevers, sweats, 6 pound weight gain with complaint of tiredness and fatigue HEENT: Patient did [...] dizziness Skin: No lumps, bumps or rashes. 12 point review of system was reviewed Objective: Vital signs in last 24 hours: [...] No lymphadenopathy Neuro: No obvious focal deficit Exam as above PATH LABS Labs from December 04 showed creatinine 0.7 total bilirubin 0.5 LDH 174 C-reactive protein less than 0.5 B12 911 soluble transferrin receptor elevated at 2.60 flow cytometric analysis showed no evidenceof lymphoma and leukemia, hemoglobin 13.9 WBC 6.6 platelet 344,000 ferritin 5.73 iron saturation 8%iron 35 Lab from April 07 showed WBC 6.8 hemoglobin 14.9 platelet 255,000 iron 99 saturation 30 ferritin 29 Assessment: Plan: Patient Active Problem List Diagnosis [...] years duration and remains quite iron deficient. Patient received iron infusion on January 15, 2024. Labs showed improvement in hemoglobin and iron studies. She will continue oral iron twice a day. Repeat labs in 6 months. Right neck and axillary lymphadenopathy. PET scan done on December 13, 2023 showed no evidence of lymphoma. Ultrasound of the soft tissue head and neck done on January 29 showed normal-sized lymph node. No further workup is needed. Elevated liver enzymes. Will check again in 6 months. I recommended regular exercise and weight loss. Follow-up in 6 months. 04/08/2024 Ubaldo Cardenas MD documented in this encounter Plan of Treatment Upcoming Encounters Date Type Department Care Team (Late st Contact Info) Description 10/14/2024 11:00 AM HISTOLOGIC AIDE Office Visit [facility] Oncology and Hematology - [place] [address] [facility] [address] [place] [phone] Ubaldo Cardenas MD [address] [facility] [address] [place] [address] Scheduled Orders Name Type Priority Associated Diagnoses Orde r Schedule CBC WITH DIFFERENTIAL Lab Stat Chronic anemia Expected: 10/09/2024, Expires: 04/08/2025 FERRITIN Lab Routine Chronic anemia Expected: 10/09/2024, Expires: 04/08/2025 IRON, TIBC, AND PERCENT SATURATION Lab Routine Chronic anemia Expected: 10/09/2024, Expires: 04/08/2025 VITAMIN B12 AND FOLATE Lab Routine Chronic anemia Expected: 10/09/2024, Expires: 04/08/2025 BASIC METABOLIC PANEL Lab Stat Chronic anemia Expected: 10/09/2024, Expires: 04/08/2025 COMPREHENSIVE METABOLIC PANEL Lab Stat Chronic anemia Expected: 10/09/2024, Expires: 04/08/2025 documented as of this encounter Visit Diagnoses Diagnosis Chronic anemia- Primary Anemia, unspecified documented in this encounter Care Teams Counter Clerk Tractor Parts Relationship Specialty Start Date End Date Meng King MD [facility] [place] [address] PCP - General Family Practice 11/15/23 documented as of this encounter
--- OUTSIDE RECORDS SUMMARY | 2024-08-03 01:39 | XMS_ITS | Encounter Summary ---
Author Organization [facility] Address [address] [place] [address] Care Team Providers Care Commercial Or Institutional Cleaner Name Role Phone Meng King MD Primary Care Provider [phone] Encounter Details Date Type Department Care Team [...] st Contact Info) Description 10/14/2024 11:00 AM OFFICE EMPLOYEE Office Visit [facility] Oncology and Hematology - [place] [address] [facility] [address] [place] [address] Ubaldo Cardenas MD [address] [facility] [address] [place] [address] documented as of this encounter Visit Diagnoses Not on filedocumented in this encounter Care Teams Commercial Or Institutional Cleaner Relationship Specialty Start Date End Date Meng King MD [address] [place] [phone] PCP - General Family Practice 11/15/23 documented as of this encounter
--- OUTSIDE RECORDS SUMMARY | 2024-08-03 01:39 | XMS_ITS | Encounter Summary ---
Author Organization [facility] [employer] Address [address] [place] [address] Care Team Providers Care Sales Support Representative Name Role Phone Meng King MD Primary Care Provider [phone] Encounter Details Date Type Department Care Team (Late Contact Info) Description 12/06/2023 Orders Only [facility] Oncology and Hematology [place] [address] [place] [address] Ubaldo Cardenas MD [address] [place] [address] [address] Social History Tobacco Use Types [...] (Late Contact Info) Description 10/14/2024 11:00 AM AGRICULTURAL LABOR CAMP MANAGER Office Visit [facility] Oncology and Hematology - [place] [address] [place] [address] [place] [address] [place] [address] [place] [address] documented as of this encounter Procedures Procedure Name Priority Date/Time Associated Diagnosis Comments FLOW CYTOMETRY REPORT Routine 12/04/2023 3:41 PM CDT documented in this encounter Results * FLOW CYTOMETRY REPORT (12/04/2023 3:41 PM CDT) Ubaldo Cardenas MD PATHOLOGY/CYTOLOGY O RDERABLES documented in this encounter Visit Diagnoses Not on filedocumented in this encounter Care Teams Sales Support Representative Relationship Specialty Start Date End Date Meng King MD [address] [place] [address] PCP - General Family Practice 11/15/23 documented as of this encounter
--- OUTSIDE RECORDS SUMMARY | 2024-08-03 01:39 | XMS_ITS | Encounter Summary ---
Author Organization [facility] [employer] [facility] Address [address] [place] [address] Care Team Providers Care Training Professional Name Role Phone Meng King MD Primary Care Provider [phone] Reason for Visit * Reason Onset Date Comments code not passing 12/10/2023 Encounter Details Date Type Department Care Team (Late st Contact Info) Description 12/10/2023 Telephone [facility] Oncology and Hematology - [place] [address] [place] [address] [facility] [address] [place] [phone] Ubaldo Cardenas MD [address] [facility] [address] [place] [address] code not passing Social History Tobacco Use Types Packs/Day Years Used Date Smoking Tobacco: Former Cigarettes 1 10 Smokeless Tobacco: Never Alcohol Use Standard Drinks/Week Comments No 0 (1 standard drink = 0.6 oz pur e alcohol) Sex and Gender Information Value Date Recorded Sex Assigned at Not on file Gender Identity Not on file Sexual Orientation Not on file documented as of this encounter Miscellaneous Notes * Telephone Encounter - Sepideh Darling - 12/10/2023 1:15 PM CDT Dx code not passing. Called and told them to try C85.9, let them know that if that does not pass toplease call our office back. documented in this encounter Plan of Treatment Upcoming Encounters Date Type Department Care Team (Late st Contact Info) Description 10/14/2024 11:00 AM WEBSPHERE MESSAGE BROKER DEVELOPER Office Visit [facility] Oncology and Hematology - [place] [address] [facility] [address] [place] [address] Ubaldo Cardenas MD [address] [facility] [address] [place] [address] documented as of this encounter Visit Diagnoses Not on filedocumented in this encounter Care Teams Training Professional Relationship Specialty Start Date End Date Meng King MD [address] [place] [phone] PCP - General Family Practice 11/15/23 documented as of this encounter
--- OUTSIDE RECORDS SUMMARY | 2024-08-03 01:39 | XMS_ITS | Encounter Summary ---
Author Organization [facility] Healthcare Address [address] [place] [address] Care Team Providers Care Faculty Member Name Role Phone Unavailable Primary Care Provider Unavailabl e Encounter Details Date Type Department Care Team (Latest Contact Info) Description 11/05/2009 9:32 PM CDT - 11/05/2009 10:51 PM CDT Hospital En[place] [address] [facility] [address] [place] [address] Mellisa Johnson Abdominal pain; Backache; Pure hypercholesterolemia Social History Tobacco Use Types Packs/Day Years Used Date Smoking Tobacco: Never Assessed Comments Unknown Sex and Gender Information Value Date Recorded Sex Assigned at Not on file Legal Sex Female 4:23 PM RISK AND INSURANCE CONSULTANT Gender Identity Not on file Sexual Orientation Not on file documented as of this encounter Plan of Treatment Not on file documented as of this encounter Visit Diagnoses Diagnosis Abdominal pain Abdominal pain, unspecified site Backache Unspecified backache Pure hypercholesterolemia documented in this encounter
--- OUTSIDE RECORDS SUMMARY | 2024-08-03 01:39 | XMS_ITS | Encounter Summary ---
Author Organization [facility] Address [address] [place] [address] Care Team Providers Care Shelver Name Role Phone Meng King MD Primary Care Provider [phone] Encounter Details Date Type Department Care Team [...] st Contact Info) Description 10/14/2024 11:00 AM FISHER DIP NET Office Visit [facility] Oncology and Hematology - [place] [address] [facility] [address] [place] [address] Ubaldo Cardenas MD [address] [facility] [address] [place] [address] documented as of this encounter Visit Diagnoses Not on filedocumented in this encounter Care Teams Shelver Relationship Specialty Start Date End Date Meng King MD [address] [place] [phone] PCP - General Family Practice 11/15/23 documented as of this encounter
--- OUTSIDE RECORDS SUMMARY | 2024-08-03 01:39 | XMS_ITS | Encounter Summary ---
Author Organization [facility] [employer] [facility] Address [address] [place] [address] Care Team Providers Care Special Distribution Clerk Name Role Phone Meng King MD Primary Care Provider [phone] Reason for Visit * Reason Onset Date Comments Biopsy Changes 12/25/2023 Encounter Details Date Type Department Care Team (Late st Contact Info) Description 12/25/2023 Telephone [facility] Oncology and Hematology [facility] [address] [place] [address] [address] Ubaldo Cardenas MD [address] [facility] [address] [place] [address] Biopsy Changes Social History Tobacco Use Types Packs/Day Years [...] encounter Miscellaneous Notes * Telephone Encounter - Yodit Mlies - 12/25/2023 11:51 AM CDT [facility] called and stated that they could not do a biopsy as they had no place to target.She stated that we could put in an ultrasound and if there was something seen on there then we could do a biopsy. I will schedule the ultrasound and let patient know of the changes. documented in this encounter Plan of Treatment Upcoming Encounters Date Type Department Care Team (Late st Contact Info) Description 10/14/2024 11:00 AM NON DESTRUCTIVE TESTER Office Visit [facility] Oncology and Hematology [facility] [address] [facility] [address] [place] [address] Ubaldo Cardenas MD [address] [facility] [address] [place] [address] documented as of this encounter Visit Diagnoses Not on filedocumented in this encounter Care Teams Special Distribution Clerk Relationship Specialty Start Date End Date Meng King MD [address] [place] [phone] PCP - General Family Practice 11/15/23 documented as of this encounter
--- OUTSIDE RECORDS SUMMARY | 2024-08-03 01:39 | XMS_ITS | Encounter Summary ---
Author Organization [facility] Healthcare Address [address] [place] [address] Care Team Providers Care Carpet Winder Name Role Phone Unavailable Primary Care Provider Unavailabl e Encounter Details Date Type Department Care Team (Late st Contact Info) Description 10/02/2010 2:33 PM TANKROOM TENDER - 10/02/2010 11:59 PM TANKROOM TENDER Hospital En[place] [address] [facility] [address] [place], [place] [id number] Mellisa Johnson Other complication of , antepartum; Abdominal pain, right lower quadrant Social History Tobacco Use Types Packs/Day Years Used Date Smoking Tobacco: Never Assessed Comments Unknown Sex and Gender Information Value Date Recorded Sex Assigned at Not on file Legal Sex Female 4:23 PM TANKROOM TENDER Gender Identity Not on file Sexual Orientation Not on file documented as of this encounter Plan of Treatment Not on file documented as of this encounter Visit Diagnoses Diagnosis Other complication of , antepartum Abdominal pain, right lower quadrant documented in this encounter
--- OUTSIDE RECORDS SUMMARY | 2024-08-03 01:39 | XMS_ITS | Encounter Summary ---
Author Organization [facility] Address [address] [place] [address] Care Team Providers Care Ultrasonic Seaming Machine Operator Name Role Phone Meng King MD Primary Care Provider [phone] Encounter Details Date Type Department Care Team (Late Contact Info) Description 12/05/2023 Orders Only [facility] Oncology and Hematology [place] [address] [place] [address] Ubaldo Cardenas MD [address] [place] [address] [employer] [address] [address] Social History Tobacco Use Types [...] (Late Contact Info) Description 10/14/2024 11:00 AM PAPER RECLAIMING MACHINE OPERATOR Office Visit [facility] Oncology and Hematology - [place] [address] [place] [address] [place] [address] [place] [address] [place] [address] documented as of this encounter Procedures Procedure Name Priority Date/Time Associated Diagnosis Comments PERIPHERAL BLOOD SMEAR EVAL Routine 12/04/2023 2:03 PM CDT COMPREHENSIVE METABOLIC PANEL Routine 12/04/2023 8:40 AM CDT CBC WITH DIFFERENTIAL Routine 12/04/2023 8:38 AM CDT documented in this encounter Results * PERIPHERAL BLOOD SMEAR EVAL (12/04/2023 2:03 PM CDT) Blood Ubaldo Cardenas MD HEMATOLOGY ORDERABLE S * COMPREHENSIVE METABOLIC PANEL (12/04/2023 8:40 AM CDT) Blood Ubaldo Cardenas MD CHEMISTRY ORDERABLES * CBC WITH DIFFERENTIAL (12/04/2023 8:38 AM CDT) Blood Ubaldo Cardenas MD HEMATOLOGY ORDERABLE S documented in this encounter Visit Diagnoses Not on filedocumented in this encounter Care Teams Ultrasonic Seaming Machine Operator Relationship Specialty Start Date End Date Meng King MD [address] [place] [phone] PCP - General Family Practice 11/15/23 documented as of this encounter
--- OUTSIDE RECORDS SUMMARY | 2024-08-03 01:39 | XMS_ITS | Encounter Summary ---
Author Organization [facility] Care Team Providers Care Bread And Pastry Baker Name Role Phone Unavailable Primary Care Provider Unavailabl e Encounter Details Date Type Department Care Team (Latest Contact Info) Description 08/28/2012 3:18 PM LOG RAFT WORKER Hospital Encounter [facility] Wiliam Smith MD [address] [id number] [place] [address] Lumbosacral spondylosis without myelopathy; Disorder of sacrum; Thoracic or lumbosacral neuritis or radiculitis; Degeneration of lumbar or lumbosacral intervertebral disc; Curvature of spine; Other acquired absence of organ Social History Tobacco Use Types Packs/Day Years Used Date Smoking Tobacco: Never Assessed Comments Unknown Sex and Gender Information Value Date Recorded Sex Assigned at Not on file Legal Sex Female 4:23 PM LOG RAFT WORKER Gender Identity Not on file Sexual Orientation Not on file documented as of this encounter Plan of Treatment Not on file documented as of this encounter Procedures Procedure Name Priority Date/Time Associated Diagnosis Comments XR SPINE LUMBAR ROUTINE Routine 08/28/2012 3:23 PM LOG RAFT WORKER documented in this encounter Results * XR Lumbar Spine Routine (08/28/2012 3:23 PM LOG RAFT WORKER) Anatomical Region Laterality Modality L-spine N/A Radiographic Sherrie ging 08/28/2012 3:23 PM LOG RAFT WORKER Narrative 08/28/2012 3:31 PM LOG RAFT WORKER WILMA GUTIÉRREZ M.D. FINAL REPORT ACC# ??Date Time ??Exam [id number] Aug 28, 2012 15:23:00 [id number] Spine Lumbar min 4 views EXAMINATION: ?Lumbar spine minimum 4 views HISTORY: ??Lumbar spondylosis FINDINGS: ?? AP, lateral, flexion, and extension views of the lumbar spine are performed without comparison. There is mild dextrocurvature of the thoracolumbar junction. Sagittal alignment is normal. The vertebral body heights are normal. There is normal motion in flexion and extension. There is mild L4-L5 degenerative disc disease. There are cholecystectomy clips in the right upper quadrant. IMPRESSION: ?? Mild thoracolumbar dextrocurvature, with mild L4-L5 degenerative disc disease. Requested By: WILIAM DEXTER ??Arpit. Dictated By: ?? WILMA GUTIÉRREZ M.D. ??on Aug 28 2012 ??3:31P This document has been electronically signed by: WILMA GUTIÉRREZ M.D. on Aug 28 2012 ??3:31P Procedure Note Provider, Arnaud, - 12/03/2016 WILMA GUTIÉRREZ M.D. FINAL REPORT ACC# Date Time Exam [id number] Aug 28, 2012 15:23:00 [id number] Spine Lumbar min 4 views EXAMINATION: Lumbar spine minimum 4 views HISTORY: Lumbar spondylosis FINDINGS: AP, lateral, flexion, and extension views of the lumbar spine are performed without comparison. There is mild dextrocurvature of the thoracolumbar junction. Sagittal alignment is normal. The vertebral body heights are normal. There is normal motion in flexion and extension. There is mild L4-L5 degenerative disc disease. There are cholecystectomy clips in the right upper quadrant. IMPRESSION: Mild thoracolumbar dextrocurvature, with mild L4-L5 degenerative disc disease. Requested By: WILIAM DEXTER M.D. Dictated By: WILMA GUTIÉRREZ M.D. on Aug 28 2012 3:31P This document has been electronically signed by: WILMA GUTIÉRREZ M.D. on Aug 28 2012 3:31P us Historical Provider MD MELENDEZ XR PROCEDURES Final R esult documented in this encounter Visit Diagnoses Diagnosis Lumbosacral spondylosis without myelopathy Disorder of sacrum Disorders of sacrum Thoracic or lumbosacral neuritis or radiculitis Thoracic or lumbosacral neuritis or radiculitis, unspecified Degeneration of lumbar or lumbosacral intervertebral disc Curvature of spine Other acquired absence of organ documented in this encounter
--- OUTSIDE RECORDS SUMMARY | 2024-08-03 01:39 | XMS_ITS | Encounter Summary ---
Author Organization [facility] Address [address] [place] [address] Care Team Providers Care Hospital Receiving Clerk Name Role Phone Meng King MD Primary Care Provider [phone] Encounter Details Date Type Department Care Team (Late st Contact Info) Description 03/04/2024 External Device Data STL ABSTRACTION Provider, Abstract [...] st Contact Info) Description 10/14/2024 11:00 AM INDUSTRIAL REFRIGERATION MECHANIC Office Visit [facility] Oncology and Hematology - [place] [address] [facility] [address] [place] [address] Ubaldo Cardenas MD [address] [facility] [address] [place] [address] documented as of this encounter Visit Diagnoses Not on filedocumented in this encounter Care Teams Hospital Receiving Clerk Relationship Specialty Start Date End Date Meng King MD [address] [place] [phone] PCP - General Family Practice 11/15/23 documented as of this encounter
--- OUTSIDE RECORDS SUMMARY | 2024-08-03 01:39 | XMS_ITS | Encounter Summary ---
Author Organization [facility] Address [address] [place] [address] Care Team Providers Care Sort Manager Name Role Phone Meng King MD Primary Care Provider [phone] Encounter Details Date Type Department Care Team (Late st Contact Info) Description 01/29/2024 External Device Data STL ABSTRACTION Provider, Abstract [...] st Contact Info) Description 10/14/2024 11:00 AM SEC ACCOUNTANT Office Visit [facility] Oncology and Hematology - [place] [address] [facility] [address] [place] [address] Ubaldo Cardenas MD [address] [facility] [address] [place] [address] documented as of this encounter Visit Diagnoses Not on filedocumented in this encounter Care Teams Sort Manager Relationship Specialty Start Date End Date Meng King MD [address] [place] [phone] PCP - General Family Practice 11/15/23 documented as of this encounter
--- OUTSIDE RECORDS SUMMARY | 2024-08-03 01:40 | XMS_ITS | Encounter Summary ---
Author Organization [facility] Address [address] [place] [address] Care Team Providers Care Laboratory Associate Name Role Phone BernadineRachid Primary Care Provider Reason for Visit * Reason Comments Shortness of Breath pt arrives reporting that she was here on Sunday for CP and was told I have stuff in my lungs not I'm having trouble breathing and the left side of my chest is hurting, pt is currently 23 weeks , pt speaking in full sentences and breathing is even and non labored * Auth/Cert Specialty Diagnoses / Procedures Referred By Reva holbrook Referred To Contact Emergency Medicine [facility] Emergency Dept [address] [place] [address] Referral ID Status Reason Start Date Expiration Date Visits Re quested Visits Authorized [id number] 1 1 Encounter Details Date Type Department Care Team (Late st Contact Info) Description 03/22/2018 9:33 PM CDT - 03/24/2018 3:[address] [facility] Antepartum [address] [place] [address] Karissa Rust MD [address] [place] [address] [place] [address] [place] [address] SOB (shortness of breath) Discharge Disposition: Home or Self Care Social History Tobacco Use Types Packs/Day Years Used Date Smoking Tobacco: Former Cigarettes 0.5 10 Smokeless Tobacco: Never Alcohol Use Standard Drinks/Week Comments No 0 (1 standard drink = 0.6 oz pur e alcohol) Comments Yes Sex and Gender Information Value Date Recorded Sex Assigned at Not on file Gender Identity Not on file Sexual Orientation Not on file documented as of this encounter Last Filed Vital Signs Vital Sign Reading Time Taken Comments Blood Pressure 99/48 03/24/2018 5:08 AM CDT Pulse 79 03/23/2018 12:00 AM CDT Temperature 36.4 ??C (97.5 ??F) 03/23/2018 10:24 PM C DT Respiratory Rate 16 03/24/2018 5:08 AM CDT Oxygen Saturation 97% 03/24/2018 6:51 AM CDT Inhaled Oxygen Concentration - - Weight 105.7 kg (233 lb) 03/23/2018 1:27 AM CDT Height 167.6 cm (5' 6 ) 03/23/2018 1:27 AM CDT Body Mass Index 37.61 03/23/2018 1:27 AM CDT documented in this encounter Discharge Instructions * Discharge Instructions* Vera Kulkarni RN - 03/24/2018 3:24 PM CDT Follow-up: Follow-up with your doctor at your next scheduled appointment. Prescriptions given? no Return to Labor and Delivery or notify your physician regarding: Contractions: 5-6 in one hour increasing in intensity after drinking plenty of water and lying on side. Vaginal Bleeding: A small amount of spotting after sexual intercourse or vaginal examination is considered normal. Bloody show is a pink-tinged or blood-streaked mucousy discharge that occurs near the onset of labor. If bleeding is heavy enough to require you to wear a pad, saturates your underpants or is accompanied by abdominal pain or cramping, notify your doctor or come to Labor and Delivery. Rupture of Membranes (Bag of Water): You may notice a large gush or continuous leaking of fluid from the vagina. The fluid will normallybe clear and white flecks may be seen. Sometimes the fluid may be greenish or brownish in color. Ifyou think your water has broken, notify your doctor or come to Labor and Delivery. Decreased Movement: If you think your baby is less active than usual, drink a glass of juice and lie down on your side.Count the number of kicks that you feel during a one-hour period. If your baby is still less activethan usual, notify your doctor or come to Labor and Delivery. General: If you experience any of the following signs/symptoms, notify your physician or come to Labor and Delivery: Headache, blurred vision, severe indigestion, abdominal pain, or increased swelling of face, hands, or feet. Additional Instructions: Drink plenty of water Activity: Your activity level is no restrictions and no smoking. If you smoke you are advised to quit. Ask your health care provider for advice if you need assistance to stop smoking. Avoid second-hand smoke exposure and do not let people smoke in your home. Diet: Your diet is regular documented in this encounter Medications at Time of Discharge Medication Sig Dispensed Refills Start Date End Date HYDROcodone-acetami nophen (NORCO) 5-325 mg tablet Take 1 Tablet by mouth every 4 hours as needed for Pain Do not drive or drink alcohol while taking this medication. This may cause constipation.. Max Daily Amount: 6 Tablets 6 Tablet 03/17/2018 06/26/2018 promethazine (PHENERGAN) 25 mg Suppository Insert 1 Suppository (25 mg) by rectum every 6 hours as needed for Nausea/Emesis. 10 Suppository 2 01/07/2018 06/26/2018 progesterone micronized (PROMETRIUM) 200 mg Capsule Take by mouth daily. 06/26/2018 acetaminophen-caffe ine-butalbital (FIORICET) 325-40-50 mg tablet Take 1 Tablet by mouth every 4 hours as needed for Migraine. 06/26/2018 escitalopram oxalate (LEXAPRO) 20 mg tabletIndications:d epression Take 1 Tablet (20 mg) by mouth late in the day. 30 Tablet 2 02/04/2017 06/26/2018 amitriptyline (ELAVIL) 10 mg tabletIndications:d epression Take 1 Tablet (10 mg) by mouth daily at bedtime. 30 Tablet 2 02/04/2017 06/26/2018 documented as of this encounter Progress Notes * Vera Kulkarni RN - 03/24/2018 3:20 PM CDT Patients at nurses desk stating that pt is ready to leave and it is not her fault that we are waiting on the medical doctor. He stated that they are going to take the leads off and just leave . RN apologized for making them wait and updated patient that we were just waiting for the discharge order to be out into the computer. RN at bedside talking with pt, apologized again for the long wait, pt is tearful and states that she has a headache. JACK Cook at bedside with Tylenol. RN updated Dr. Madsen on patient wanting to leave and pt was going to leave. RN received verbal dischargeorders. RN at the beside, discharge instructions given and questions answered, pt verbalized understanding. Pt taken down to the main entrance via wheelchair, pt stable and discharged home undelivered, pt left with via personal vehicle. * Natanael Thompson MD - 03/24/2018 3:05 PM CDT [facility] Adult Hospitalist Progress Note Admit Date: 03/22/2018 Date of Note: 03/24/2018, 3:05 PM LOS: 0 days Previous history of present illness and review of systems have been reviewed today as documented inthe H&P on 03/22/2018; medications, labs, studies, notes, orders and consults have been reviewed. I have reviewed the notes from admission. Subjective: States she feels better Chest pain improved with Toradol Objective: BP 99/48 (BP Location: Right arm, Patient Position (BP): Lying left side) Pulse 79 Temp 97.5 ??F (36.4 ??C) (Oral) Resp 16 Ht 5' 6 (1.676 m) Wt 105.7 kg (233 lb) LMP 10/07/2017 SpO2 97% ? No BMI 37.61 kg/m?? Temp (24hrs), Av.7 ??F (36.5 ??C), Min:97.5 ??F (36.4 ??C), Max:97.9 ??F (36.6 ??C) Exam: General: Alert, no distress. Heart: Regular rate and rhythm, S1, S2 normal, no murmur, click, rub or gallop. Lungs: Clear to auscultation bilaterally Abdomen: Soft, non-tender. Bowel sounds times four. No masses, No organomegaly. Extremities: No clubbing, cyanosis or edema Skin: Skin color, texture, turgor normal. No rashes or lesions. Warm and dry. Head: Normocephalic, atraumatic Neck: Supple, symmetrical, trachea midline, no adenopathy. Neuro: CNII-XII intact. Normal strength, sensation and reflexes throughout. Data Base: I have reviewed all new labs and studies resulted and pertinent ones are noted below ECHO: SUMMARY: ?? - Left ventricle: The cavity size was normal. Wall thickness was normal. Global systolic function was normal. Left ventricular diastolic function parameters were normal. Ejection fraction (MOD, 2-plane): 69%. - Left atrium: The atrium was normal in size. - Right ventricle: The cavity size was normal. Systolic function was normal. Assessment/Plan of Actively Managed Problems 1. Chest pain/shortness of breath; troponins ??2 negative, ruled out for ACS, EKG did not show any acute ischemic change, CTA chest done by primary did not show any pulmonary embolism or dissection. ECHO without any wall motion changes, EF around 69%. ?muscleskeletal-states her pain is improved with Toradol. May benefit stress test as outpatient no immediate need due to her current pregnency. Timingto be decided by PCP and supervisor cutting and sewing room. 2. Anxiety/depression; on home medications 3. Hypokalemia; replace 4. PCOs; metformin 5. Hypokalemia; replace 6. Antepartum care; per primary 7. Nausea; antiemetics If chest pain resolved, ok to discharge from IM standpoint. Outpatient f/u with PCP in 1 week. DVT Prophylaxis - Per Primary Waggoner catheter:absent Lines: Peripheral IV PT POC OT POC Activity Order: Current Code Status -Full Code Plan discussed with patient, questions answered. Current Planned Disposition - Per Primary Stable/Resolved Issues/Follow Up Needs Natanael Thompson MD * Rajendra Virgen MD - 03/24/2018 2:20 PM CDT Pulmonary Daily Progress Note Rajendra Virgen MD 03/24/2018 2:20 PM Patient Name: Vera Vitale 1985 Attending Physician:Keo Julien MD Primary Care Physician: Rachid Colindres DO Date of Admission: 03/22/2018 Date of Service: 03/24/2018 Impression: 1. Atypical chest pain, nonpleuritic type, unlikely to represent a primary pulmonary pathology 2. Minimal groundglass opacity on CT imaging bilaterally, fairly nonspecific and could represent mild pulmonary vascular congestion, hypoventilation or small airways disease from a viral etiology; a reactive airways process such as bronchial asthma or an infectious pneumonia appear unlikely 3. at 23 weeks ?? Recommendations: 1. Reviewed her recent 2D echocardiogram and discussed with the patient. No further specific recommendations from a pulmonary standpoint, she has been advised to contact us as an outpatient should she develop wheezing at any point 2. She is stable to be discharged from a pulmonary standpoint, please call with questions Subjective: Patient reports significant improvement in her chest pain and tightness from Toradol, which appearsto suggest an underlying musculoskeletal etiology. Currently appears in no acute respiratory distress on room air. Past Medical History, Surgical History & Family History reviewed, no changes. Review of systems unchanged. Objective: Blood pressure 99/48, pulse 79, temperature 97.5 ??F (36.4 ??C), temperature source Oral, resp. rate 16, height 5' 6 (1.676 m), weight 105.7 kg (233 lb), last menstrual period 10/07/2017, SpO2 97 %,not currently . No intake/output data recorded. No intake or output data in the 24 hours ending 03/24/18 1420 PHYSICAL EXAMINATION General: Alert and stable, appears in no acute distress. HEENT: Normocephalic and atraumatic. STEVE, nasal mucosa is normal with no erythema or exudate. Neck: Supple, trachea midline, no adenopathy, thyroid normal. No jugular venous distension. Lungs: Bilateral equal and clear breath sounds to auscultation. No crackles or wheeze. Heart: Heart sounds are normal and regular. 2/6 systolic murmur present over precordium. Abdomen: Soft, gravid and Non-Tender. No hepatosplenomegaly. Bowel sounds are present and normal. Extremities: No cyanosis, clubbing or edema Skin: Skin color and texture appears normal, no rashes or erythema. Lymph Nodes: Cervical, supraclavicular nodes normal. Neurologic: Non focal. Medications famotidine 20 mg BID Or famotidine PF 20 mg BID docusate sodium 100 mg BID vitamin 1 Tablet Daily ondansetron 4 mg q 6 hour metoclopramide HCl 10 mg BID pyridoxine (vitamin B6) 25 mg q 12 hour (BID) doxylamine 25 mg Daily BEDTIME metFORMIN 500 mg BID Meals metFORMIN consult to pharmacy 1 Each See Admin Notes potassium chloride 40 mEq BID Meals Infusions: sodium chloride 0.9% Last Rate: Stopped (03/23/18 0210) Labs: BMP: Recent Labs 03/22/183 03/24/18 0512 GLUCOSE 89 -- BUN 6 -- CREAT 0.56 -- NA 138 -- K 3.2* 3.6 CL 100 -- CO2 25 -- ANIONGAP 13 -- LFTs: Recent Labs 03/22/18 2223 03/23/18 0031 ALKPHOS 137* -- ALT 18 -- AST 17 -- BILITOTAL <0.2* -- ALBUMIN 3.8 -- AMYLASE -- 47 LIPASE -- 58 CBC: Recent Labs 03/22/183 WBC 7.7 HGB 12.6 HCT 37.1 PLT 258 MCV 85.9 CRP: Lab Results Component Value Date/Time CRP 12.5 (H) 03/23/2018 04:11 AM CRP 0.8 10/04/2010 05:50 AM CRP 0.8 10/02/2010 04:50 PM Imaging: I have personally reviewed all pertinent radiographic images ?? CT ANGIOGRAPHY OF THE CHEST WITHOUT AND WITH INTRAVENOUS CONTRAST AND CT RECONSTRUCTIONS DATE: 03/23/2018 10:12 AM FINDINGS: Mediastinal windows demonstrate no intraluminal filling defects within the pulmonary arteries to suggest pulmonary emboli. The thoracic aorta is normal in caliber, without evidence of dissection. No mediastinal, hilar, or axillary adenopathy is seen. Mild residual thymic tissue is noted. No pericardial or pleural effusions are seen.?? Lung parenchymal windows demonstrate mild patchy groundglass opacities throughout the lungs. This may be related to minimal infiltrate or small airways disease. No focal consolidation is seen. No pneumothorax is evident. The extreme lung apices and lung bases were excluded from the images to limit radiation dose.?? IMPRESSION: ?? 1. ??No CT evidence of pulmonary emboli. 2. ??Mild scattered minimal infiltrate versus small airways disease. 3. ??No focal consolidation. ?? Cardiac Results for orders placed or performed during the hospital encounter of 03/22/18 ECHO COMPLETE Result Value Ref Range EJECTION FRACTION Narrative [address] [address] [email or web address] Transthoracic Echocardiography Patient: Vera Vitale Study ID: [id number] Gender: F : 1985 Age: 32 Race: [facility] Height 167.6cm Study Date: 03/24/2018 Weight: 105.7kg Access. #: [id number] BP: *Referring Physician:Natanael Partida *Ordering Physician:Natanael Partida Furniture Sales Associate: Indications: Chest pain. STUDY CONCLUSIONS: SUMMARY: - Left ventricle: The cavity size was normal. Wall thickness was normal. Global systolic function was normal. Left ventricular diastolic function parameters were normal. Ejection fraction (MOD, 2-plane): 69%. - Left atrium: The atrium was normal in size. - Right ventricle: The cavity size was normal. Systolic function was normal. Cardiac Anatomy: LEFT VENTRICLE: The cavity size was normal. Wall thickness was normal. Global systolic function was normal. Wall motion was normal; there were no regional wall motion abnormalities. Left ventricular diastolic function parameters were normal. AORTIC VALVE: Structurally normal valve. Trileaflet. Doppler: Transvalvular velocity was within the normal range. There was no stenosis. No significant regurgitation. VTI ratio of LVOT to aortic valve: 0.92. Valve area (VTI): 3.2cm^2. Indexed valve area (VTI): 1.5cm^2/m^2. Peak velocity ratio of LVOT to aortic valve: 0.76. Valve area (Vmax): 2.63cm^2. Indexed valve area (Vmax): 1.23cm^2/m^2. Mean gradient (S): 6mm Hg. Peak gradient (S): 12mm Hg. AORTA: Aortic root: The aortic root was normal in size. MITRAL VALVE: Structurally normal valve. Doppler: Transvalvular velocity was within the normal range. There was no evidence for stenosis. No significant regurgitation. Mean gradient (D): 2mm Hg. Peak gradient (D): 5mm Hg. LEFT ATRIUM: The atrium was normal in size. RIGHT VENTRICLE: The cavity size was normal. Systolic function was normal. PULMONIC VALVE: Structurally normal valve. Doppler: No significant regurgitation. TRICUSPID VALVE: Structurally normal valve. Doppler: Mild regurgitation. PULMONARY ARTERY: Systolic pressure was within the normal range. RIGHT ATRIUM: The atrium was normal in size. PERICARDIUM: There was no pericardial effusion. SYSTEMIC VEINS: Inferior vena cava: The vessel was normal in size. Measurements Left ventricle Value Reference LV ID, ED, PLAX chordal (L) 3.4 cm 43.0 - 52.0 LV ID, ES, PLAX chordal (L) 2.1 cm 23.0 - 38.0 LV fx shortening, PLAX (N) 38 % >=29 chordal LV PW thickness, ED 1.2 cm IVS/LV PW ratio, ED (N) 0.66 <=1.3 LV end-diastolic volume, 89 ml 2-p LV end-systolic volume, 28 ml 2-p LV ejection fraction, 69 % 2-p LV end-diastolic 42 ml/m^2 volume/bsa, 2-p LV end-systolic 13 ml/m^2 volume/bsa, 2-p LV e', lateral 0.175 m/sec LV E/e', lateral 6 LV e', medial 0.099 m/sec LV E/e', medial 11 LV e', average 0.137 m/sec LV E/e', average 8 Ventricular septum Value Reference IVS thickness, ED 0.8 cm LVOT Value Reference LVOT ID, S 2.0 cm LVOT area 3 cm^2 LVOT peak velocity, S 1.3 m/sec LVOT VTI, S 32.0 cm LVOT peak gradient, S 7 mm Hg Aortic valve Value Reference Aortic valve peak 1.7 m/sec velocity, S Aortic valve VTI, S 34.6 cm Aortic mean gradient, S 6 mm Hg Aortic peak gradient, S 12 mm Hg VTI ratio, LVOT/AV 0.92 Aortic valve area, VTI 3.2 cm^2 Aortic valve area/bsa, 1.5 cm^2/m^2 VTI Velocity ratio, peak, 0.76 LVOT/AV Aortic valve area, peak 2.63 cm^2 velocity Aortic valve area/bsa, 1.23 cm^2/m^2 peak velocity Aorta Value Reference Aortic root ID 2.3 cm Left atrium Value Reference LA ID, A-P, ES 3.5 cm LA ID/bsa, A-P (N) 1.6 cm/m^2 <=2.2 LA volume, ES, 2-p 45 ml LA volume/bsa, ES, 2-p 21 ml/m^2 Mitral valve Value Reference Mitral E-wave peak 1.11 m/sec velocity Mitral A-wave peak 0.65 m/sec velocity Mitral deceleration time (H) 299 ms 150 - 230 Mitral mean gradient, D 2 mm Hg Mitral peak gradient, D 5 mm Hg Mitral E/A ratio, peak 1.7 Tricuspid valve Value Reference Tricuspid regurg peak 2.3 m/sec velocity Tricuspid peak RV-RA 21 mm Hg gradient Pulmonic valve Value Reference Pulmonic valve peak 1.2 m/sec velocity, S Legend: (L) and (H) jose d values outside specified reference range. (N) moreno values inside specified reference range. Procedure data: Procedure information: Transthoracic echocardiography. Scanning was performed from the parasternal, apical, and subcostal acoustic windows. Transthoracic echocardiography. Complete 2D, complete spectral Doppler, and color Doppler. Birthdate: Patient birthdate: 1985. Age: Patient is 32yr old. Sex: Gender: female. Height: Height: 167.6cm. Height: 66in. Weight: Weight: 105.7kg. Weight: 232.5lb. Body mass index: BMI: 37.6kg/m^2. Body surface area: BSA: 2.13m^2. Study date: Study date: 03/24/2018. Study time: 07:51 AM. Prepared and Electronically Authenticated Rossy Romero MD [id number] Medical Problems: Patient Active Problem List Diagnosis Code ??? C section 11/21 ??? Normal (single liveborn) Z38.2 ??? Tobacco use Z72.0 ??? 08/06 L ruptured ectopic s/p dx lap, L fallopian; percocet, ADAT O00.90 ??? Feeling pelvic pressure during in second trimester, antepartum O26.892, N94.9 ??? Viral gastritis K29.70 ??? Nausea and vomiting during O21.9 ??? Diarrhea R19.7 ??? related fatigue in third trimester O26.813 ??? Shortness of breath during O99.89, R06.02 ??? S/P section Z98.891 ??? Cholestasis during O26.619, K83.1 ??? Bipolar affective disorder, currently depressed, moderate F31.32 ??? CLOTILDE (generalized anxiety disorder) F41.1 ? ? N&V (nausea and vomiting) R11.2 ??? Dyspnea on exertion R06.09 Hospital Problem List Active Problems: Shortness of breath during Overview: Exertional SOB Dyspnea on exertion Rajendra Virgen MD Pulmonary, Critical Care, Neurocritical Care & Sleep Medicine [facility], Ronnie Thao Off: [phone] Pager: [phone] * Mary Madsen MD - 03/24/2018 9:49 AM CDT Antepartum Safety Rounds Plan of care reviewed with In-House attending, MFM attending, bedside RN and charger tester. Review of FHT Gestational Age: 24w0d Doppler qshift; 145 bpm Plan: Follow-up echo Mary Madsen MD PGY-3 Dept. of PLASTERING CONTRACTOR Pager: [phone] * Isabela Ash MD - 03/24/2018 7:32 AM CDT Antepartum Progress Note Subjective: Patient reports that she continues to have chest tightness. She reports however that following the toradol her pain improved. She denies shortness of breath. No fever or chills. She reports good movement. No complaints. Objective: Vitals: 03/23/18 2224 03/24/18 0135 03/24/18 0508 03/24/18 0651 BP: 100/84 122/66 99/48 BP Location: Right arm Patient Position (BP): Lying left side Pulse: Resp: 16 Temp: 97.5 ??F (36.4 ??C) TempSrc: Oral SpO2: 97% 97% 97% 97% Weight: Height: Gen: NAD CV: RRR, acyanotic Resp: non-labored Abd: soft, gravid, non-tender Ext: non-tender, trace edema FHT: doppler 145 bpm Assessment: Bedside ultrasound: transverse, anterior placenta, EFW 766 g, NATHAN 5.21 cm Laboratory Assessment: WBC: 7.7 H/H: 12.6/37.1 PLT: 258 Cr: 0.56 AST/ALT: 17/18 Alkaline phospatase: 137 Troponin: < 6 BNP: < 50 Na: 138 K: 3.2 > 3.6 Amylase: 47 Lipase: 58 CRP: 12.5 Imaging Studies: Ventilation/Perfusion Lung Scan 03/17: Impression: 1. Low probability lung scan consisting of a matched large perfusion defects in both lower lobes. 2. Ventilation findings consistent with obstructive pulmonary disease, possibly small airways disease such as asthma. CTA of Chest 03/17: Impression: No large central pulmonary embolism EKG 03/22: sinus rhythm CTA of chest 03/23: Impression: 1. No CT evidence of pulmonary emboli 2. Mild scattered minimal infiltrate versus small airways disease 3. No focal consolidation Patient Active Problem List Diagnosis Code ??? C section 11/21 ??? Normal (single liveborn) Z38.2 ??? Tobacco use Z72.0 ??? 08/06 L ruptured ectopic s/p dx lap, L fallopian; percocet, ADAT O00.90 ??? Feeling pelvic pressure during in second trimester, antepartum O26.892, N94.9 ??? Viral gastritis K29.70 ??? Nausea and vomiting during O21.9 ??? Diarrhea R19.7 ??? related fatigue in third trimester O26.813 ??? Shortness of breath during O99.89, R06.02 ??? S/P section Z98.891 ??? Cholestasis during O26.619, K83.1 ??? Bipolar affective disorder, currently depressed, moderate F31.32 ??? CLOTILDE (generalized anxiety disorder) F41.1 ? ? N&V (nausea and vomiting) R11.2 ??? Dyspnea on exertion R06.09 Assessment/Plan: 32 y.o. IUP @ 24w0d with chest pain and shortness of breath 1. Chest pain/Shortness of breath - VSS, afebrile - SpO2 99% on room air - EKG sinus rhythm - Troponin WNL, will obtain follow-up troponin at 0400 - Underwent thorough evaluation on Saturday 03/17 - V/Q scan with matched perfusion defects in bilateral lower lung lobes, consistent with obstructive pulmonary disease - CTA: limited by poor contrast bolus, no large central pulmonary embolism - Repeat CTA 03/23: negative for PE, bilateral ground glass opacities consistent with infiltrate vs small airway disease - [facility] Hospitalist consulted, recommendations appreciated - Pulmonology consulted, recommendations appreciated - per pulmonology unlikely to represent primary pulmonary pathology - Telemetry - Amylase, lipase WNL - pancreatitis unlikely - ECHO pending 2. Nausea - Continue home antiemetics: zofran, reglan, unisom, pyridoxine 3. Hypokalemia, improved - K: 3.2 > 3.6 - PO repletion 4. Anxiety/Depression, BiPAD - Continue home medications- patient unsure of doses. Will clarify with in AM and order appropriate doses 5. PCOS: - Continue home metformin 6. status reassuring: - Doppler heart tones q shift - BSUS as above, appropriately grown, transverse 7. labs: - Pending record 8. Antepartum Cares: - PNV, colace, pepcid - SCDs when nonambulatory - Flu: out of season - Tdap: due at 28 weeks Dispo: awaiting ECHO findings Mary Madsen MD PGY-3 Dept P[employer]ERING [employer]OR [phone] PLASTERING CONTRACTOR Attending Seen and examined by me; agree with Dr. Madsen's assessment and plan. Patient resting comfortably.Pain improved since toradol yesterday; still feels some tightness, worse w/ breathing. Workup thus far negative. ECHO today was normal, EF 69%. Will await any further IM recommendations; anticipate discharge home today if no new findings. Isabela Ash MD [facility] P[employer]OR - [place] [phone] * Amisha Keys MD - 03/23/2018 10:47 PM CDT Antepartum Safety Rounds Plan of care reviewed with In House OB, bedside RN and charger tester. FH by doppler: 155bpm Plan: Doppler q8h Amisha Keys MD PGY-3 PLASTERING CONTRACTOR, [facility] Pager: [phone] * Alma Delia Emmanuel RN - 03/23/2018 4:58 PM CDT Received report from Magy Rios RN. Will assume care at this time. * Amisha Keys MD - 03/23/2018 2:26 PM CDT R3 Brief Note Patient discussed with IM physician and Dr. Oneill. Pulmonology consult placed, awaiting call back. Amisha Keys MD PGY-3 PLASTERING CONTRACTOR, [facility] Pager: [phone] Addendum: Discussed patient with Dr. Virgen, multimedia manager. Amisha Keys MD PGY-3 PLASTERING CONTRACTOR, [facility] Pager: [phone] * Amisha Keys MD - 03/23/2018 10:44 AM CDT Antepartum Safety Rounds Plan of care reviewed with MFM, bedside RN and charger tester. FHR by doppler: 140bpm Plan: Doppler q12h Amisha Keys MD PGY-3 PLASTERING CONTRACTOR, [facility] Pager: [phone] * Elizabeth Kothari RN - 03/23/2018 2:42 AM CDT Report given to Yanely SANTIAGO. * Elizabeth Kothari RN - 03/23/2018 2:10 AM CDT IV capped per Dr. Madsen. * Elizabeth Kothari RN - 03/23/2018 1:55 AM CDT Called for tele monitor. * Elizabeth Kothari RN - 03/23/2018 1:[address] Madsen aware of pt arrival to ante. Pt unsure of doses on some daily medications. Unsure on times taken yesterday. Will check with in am on doses. documented in this encounter H&P Notes * Ayde Alexis MD - 03/23/2018 1:40 AM CDT manager hvac History and Physical CC: Chest pain, shortness of breath HPI: Vera Vitale is a 32 y.o. @ 23w6d, who presents with complaint of chest pain and shortness of breath. Patient states that her symptoms began approximately 6 days ago. She underwent thorough evaluation in the emergency department at that time. She was found to have an abnormal V/Q scan with findings consistent with obstructive pulmonary disease or asthma. CTA was performed that demonstrated bilateral bibasilar ground glass appearance but no evidence of large PE. She was discharged to home with pain medications. Patient reports that her symptomst worsened today. She now reports that pain in her chest is located on the right. She states that the pain radiates to her back. Shestates that pain is constant and sharp. She reports that the pain she experiences worsens with movements. The patient denies cough or nasal congestion. She denies fever or chills. She reports that she has never had similar symptoms. She reports that she developed shortness of breath in her prior that was associated with viral URI. Her has been uncomplicated except for nausea and vomiting. The patient reports current nausea and vomiting. She states that she consistently uses reglan and zofran throughout the day for her nausea. She denies heartburn. She denies abdominal painor contractions. She denies vaginal bleeding or leaking of fluid. She reports movement. ROS: Comprehensive ROS done. Pertinent positives noted above. All others neg. Vamp Liner History: history of PCOS. She reports remote history of trichomonas. She denies history of abnormal pap smears. OB History: G1 - 2005 - SAB G2 - 2006 - SAB G3 - 2007 - SAB G4 - 2009 - SAB G5 - 2011- 37 wk pLTCS - 6#15oz male pre-e, failure to progress G6 - 2011 - SAB G7 - 2012 - SAB G8 - 2012 - SAB G9 - 2013 - SAB G10 - 2014 - ectopic s/p L salpingectomy G11 - 2015 - SAB G12 - 2017 - 36wk rLTCS - 7#12oz male, cholestasis of G13 - current PMHx: Anxiety, Bipolar affective disorder, Depression, PCOS Past Medical History: Diagnosis Date ??? Anxiety Zoloft ??? Bipolar affective disorder ??? Depression bipolar ??? Herniated cervical disc ??? High cholesterol ??? Hyperemesis gravidarum ??? Migraines ??? MRSA (methicillin resistant Staphylococcus aureus) 08/2009 cysts on leg, never cultured-told it was staph and was given medication ??? Nutritional anemia, unspecified ??? PCOS (polycystic ovarian syndrome) ??? Trichimoniasis 2005 PSHx: History of CS x 2, History of salpingectomy following ectopic , History of craniotomy, Lymph node dissection, Ear surgery for partial hearing loss, cholecystectomy Past Surgical History: Procedure Laterality Date ??? HCHG DILITATION AND CURETTAGE 01/14/2014 ??? HX CHOLECYSTECTOMY 02/2010 ??? HX CRANIOTOMY 2016 ??? HX DILATION AND CURETTAGE 01/2014 per fertility MD ??? HX EAR SURGERY ??? HX LEFT OOPHORECTOMY ??? HX LYMPH NODE DISSECTION 10/2014 armpit ??? LAP CHOLECYSTECTOMY ??? ME DELIVERY ONLY 11/21/2010 SECTION performed by KEO JULIEN at [facility] L&D ??? ME DELIVERY ONLY N/A 09/13/2016 SECTION performed by Keo Julien MD at [facility] L&D ??? ME LAP,RMV ADNEXAL STRUCTURE N/A 08/06/2015 LEFT SALPINGECTOMY LAPAROSCOPIC FOR ECTOPIC performed by Ayde Judge MD at [facility] OR [facility] PSocHX: Former tobacco user. Denies current tobacco, alcohol or illicit drug use Social History Substance Use Topics ??? Smoking status: Former Smoker Packs/day: 0.50 Years: 10.00 Types: Cigarettes ??? Smokeless tobacco: Never Used ??? Alcohol use No Medications: - zofran - reglan - buspar - unisom, pyridoxine - trantellix - metformin - deplin - pnv Allergies Allergen Reactions ??? Adhesive Other (See Comments) Skin irritation ??? Other Drug [Unclassified Drug] Other (See Comments) control pills cause vaginal bleeding Physical Exam: Vitals: 03/22/18 2300 03/23/18 0000 03/23/18 0126 03/23/18 0127 BP: 101/86 112/61 130/77 BP Location: Patient Position (BP): Sitting Sitting Pulse: 77 79 Resp: Temp: 97.8 ??F (36.6 ??C) TempSrc: Oral SpO2: 96% 96% 99% Weight: 105.7 kg (233 lb) Height: 5' 6 (1.676 m) General: Well-developed, well-nourished female in NAD HEENT: Normocephalic, atraumatic. Mucus membranes mpost Heart: acyanotic, RRR Lungs: unlabored, CTAB Chest: non-tender to palpation Abdomen: soft, gravid, NT Extremities: No clubbing, cyanosis, or edema. No calf tenderness. SVE: deferred SSE: deferred FHT: 160 bpm by doppler Bedside ultrasound: transverse, anterior placenta, EFW 766 g, NATHAN 5.21 cm Laboratory Assessment: WBC: 7.7 H/H: 12.6/37.1 PLT: 258 Cr: 0.56 AST/ALT: /18 Alkaline phospatase: 137 Troponin: < 6 BNP: < 50 Imaging Studies: Ventilation/Perfusion Lung Scan 03/17: Impression: 1. Low probability lung scan consisting of a matched large perfusion defects in both lower lobes. 2. Ventilation findings consistent with obstructive pulmonary disease, possibly small airways disease such as asthma. CTA of Chest 03/17: Impression: No large central pulmonary embolism EKG 03/22: sinus rhythm Assessment/Plan: 32 y.o. IUP @ 23w6d with chest pain and shortness of breath 1. Chest pain/Shortness of breath - VSS, afebrile - SpO2 99% on room air - EKG sinus rhythm - Troponin WNL, will obtain follow-up troponin at 0400 - Underwent thorough evaluation on Saturday 03/17 - V/Q scan with matched perfusion defects in bilateral lower lung lobes, consistent with obstructive pulmonary disease - CTA: limited by poor contrast bolus, no large central pulmonary embolism - [facility] Hospitalist consulted, recommendations appreciated - Telemetry overnight - Given nausea/vomiting and pain radiating to back, will add on amylase and lipase to previously drawn laboratory studies, rule out pancreatitis - As CTA on 03/17 was limited due to poor contrast bolus and was insufficient to adequately evaluate for subsegmental PE, will obtain repeat CTA. 2. Nausea - Continue home antiemetics: zofran, reglan, unisom, pyridoxine 3. Hypokalemia - K: 3.2 upon admission - PO repletion 4. Anxiety/Depression, BiPAD - Continue home medications- patient unsure of doses. Will clarify with in AM and order appropriate doses 5. PCOS: - Continue home metformin 6. status reassuring: - Doppler heart tones q shift - BSUS as above, appropriately grown, transverse 7. labs: - Pending record 8. Antepartum Cares: - PNV, colace, pepcid - SCDs when nonambulatory - Flu: out of season - Tdap: due at 28 weeks Dispo: obtain repeat CTA due to inadequate evaluation during previous imaging study, Hospitalist consultation, telemetry overnight Mary Madsen MD PGY-3 Dept PLASTERING CONTRACTOR [phone] OBGYN Attending Pt was independently seen and personally examined today. Chart reviewed. Agree with H&P above, except as noted. 23w6d with persisting and worsening chest discomfort that is now also radiating to her back, initially was on hte left and now bilaterally, and ESCOTO and SOB at rest. Describes discomfort as feeling tight in the chest and pressure. Feels like she takes breaths, but they are not relieving air hunger. Also has increased pain with taking breaths. No history of asthma in the past. she does have a h/o cardiac murmur. As far as OB issues go--has n/v and now low potassium. No contractions, VB orLOF. Good FM. See above note for further details regarding pt's history BP 124/61 (BP Location: Left arm, Patient Position (BP): Supine) Pulse 79 Temp 97.8 ??F (36.6 ??C) (Oral) Resp 18 Ht 5' 6 (1.676 m) Wt 105.7 kg (233 lb) LMP 10/07/2017 SpO2 97% ? No BMI 37.61 kg/m?? Heart: there is a murmur audible. Otherwise RRR Lungs: CTA bilaterally, no wheezing, rales or rhonchi. Equal bilaterally Abd: soft, nontender, nondistended Ext: no calf tend Labs and imaging from admission and from last week reviewed. VQ results and inconclusive CT resultsnoted from before. 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 Await medicine consult. Needs echo. Will also consider consulting pulmonology at this point. As there is a degree of pleurisy, will try one dose of Toradol. I discussed risks of prolonged use,and we certainly won't plan on doing this. Replace potassium--one time dose is not sufficient. Will start on 40 mEq bid for the next few days and reassess potassium level tomorrow am. Cont tele for now. Fetus reassuring. A total of 30 minutes were spent managing this patient's care today, of which greater than 50% was spent in [id number] counseling and/or coordination of care. The nature of this counseling and coordination of care is as noted above Ayde Alexis MD documented in this encounter Consult Notes * Rajendra Virgen MD - 03/23/2018 4:26 PM CDTAssociated Order(s): IP CONSULT TO PULMONOLOGY Pulmonary Consultation Rajendra Virgen MD 03/23/2018 4:27 PM Consult requested by Keo Marquez MD Patient Name: Vera Vitale 1985 Attending Physician:Keo Julien MD Primary Care Physician: Rachid Colindres, Date of Admission: 03/22/2018 Date of Service: 03/23/2018 Reason for consultation: Chest pain Impression: 1. Atypical chest pain, nonpleuritic type, unlikely to represent a primary pulmonary pathology 2. Minimal groundglass opacity on CT imaging bilaterally, fairly nonspecific and could represent mild pulmonary vascular congestion, hypoventilation or small airways disease from a viral etiology; a reactive airways process such as bronchial asthma or an infectious pneumonia appear unlikely 3. at 23 weeks Recommendations: 1. Reviewed her recent CT imaging and discussed with the patient in great detail. The paucity of primary respiratory symptomatology does not mandate any specific therapy currently from a pulmonary standpoint, continued watchful waiting is advised 2. Check a CRP level 3. 2D echocardiography is anticipated for further evaluation of her ventricular function HPI: Patient is a 32 y.o. female who was admitted on 03/22/2018 for persistent chest pain and dyspnea, following which CT imaging has demonstrated minimal bilateral groundglass opacities without evidence of acute venous thromboembolic disease. The patient reports initial left-sided chest pain radiating to her back and not worsened with deep breathing or inspiration, with subsequent similar pain onthe right side radiating to her back and likewise not accompanied by cough, expectoration, fever, chills, hemoptysis or wheeze. She denies any recent respiratory tract infections and also denies any previous childhood of family history of bronchial asthma. She reports concomitant dyspnea with activity but denies any associated palpitations, diaphoresis or dizziness. She is currently 23 weeks with a history of preeclampsia during a previous . She also has an underlying anxiety disorder for which she was previously on buspirone therapy. She denies any symptomatology of acid regurgitation or nocturnal heartburn. Past Medical History: Diagnosis Date ??? Anxiety Zoloft ??? Bipolar affective disorder ??? Depression bipolar ??? Herniated cervical disc ??? High cholesterol ??? Hyperemesis gravidarum ??? Migraines ??? MRSA (methicillin resistant Staphylococcus aureus) 08/2009 cysts on leg, never cultured-told it was staph and was given medication ??? Nutritional anemia, unspecified ??? PCOS (polycystic ovarian syndrome) ??? Trichimoniasis 2005 Past Surgical History: Procedure Laterality Date ??? HCHG DILITATION AND CURETTAGE 01/14/2014 ??? HX CHOLECYSTECTOMY 02/2010 ??? HX CRANIOTOMY 2016 ??? HX DILATION AND CURETTAGE 01/2014 per fertility MD ??? HX EAR SURGERY ??? HX LEFT OOPHORECTOMY ??? HX LYMPH NODE DISSECTION 10/2014 armpit ??? LAP CHOLECYSTECTOMY ??? ME DELIVERY ONLY 11/21/2010 SECTION performed by KEO JULIEN at [facility] L&D ??? ME DELIVERY ONLY N/A 09/13/2016 SECTION performed by Keo Julien MD at [facility] L&D ??? ME LAP,RMV ADNEXAL STRUCTURE N/A 08/06/2015 LEFT SALPINGECTOMY LAPAROSCOPIC FOR ECTOPIC performed by Ayde Judge MD at [facility] OR MAIN Family History Problem Relation Age of Onset ??? Diabetes Father ??? Thyroid Disease Father ??? Hypertension Mother ??? Diabetes Brother Social History Social History ??? Marital status: Spouse name: N/A ??? Number of children: N/A ??? Years of education: N/A Occupational History ??? Not Employed Social History Main Topics ??? Smoking status: Former Smoker Packs/day: 0.50 Years: 10.00 Types: Cigarettes ??? Smokeless tobacco: Never Used ??? Alcohol use No ??? Drug use: No ??? Sexual activity: Yes Partners: Male control/ protection: None Other Topics Concern ??? Not on file Social History Narrative ??? No narrative on file Current Medications: famotidine 20 mg BID Or famotidine PF 20 mg BID docusate sodium 100 mg BID vitamin 1 Tablet Daily ondansetron 4 mg q 6 hour metoclopramide HCl 10 mg BID pyridoxine (vitamin B6) 25 mg q 12 hour (BID) doxylamine 25 mg Daily BEDTIME metFORMIN 500 mg BID Meals metFORMIN consult to pharmacy 1 Each See Admin Notes potassium chloride 40 mEq BID Meals Medications on Admission: Outpatient Prescriptions Marked as Taking for the 03/22/18 encounter (Hospital Encounter) Medication Sig Dispense Refill ??? HYDROcodone-acetaminophen (NORCO) 5-325 mg tablet Take 1 Tablet by mouth every 4 hours as needed for Pain Do not drive or drink alcohol while taking this medication. This may cause constipation..Max Daily Amount: 6 Tablets 6 Tablet 0 ??? ondansetron (ZOFRAN ODT) 4 mg Tablet, Rapid Dissolve Place 1 Tablet (4 mg) under tongue every 6hours Dissolve tablet on top of tongue, then swallow with saliva.. 30 Tablet 2 ??? pantoprazole (PROTONIX) 40 mg Tablet, Delayed Release (E.C.) Take 1 Tablet (40 mg) by mouth daily. 60 Tablet 4 ??? pyridoxine, vitamin B6, (VITAMIN B6) 25 mg Tablet Take 1 Tablet (25 mg) by mouth every 12 hours. 60 Tablet 4 ??? buspirone HCl (BUSPIRONE ORAL) Take by mouth. ??? vortioxetine hydrobromide (TRINTELLIX ORAL) Take by mouth. ??? xwuysmcolzlpk-yzfoyndu-odglfjhrov (FIORICET) 325-40-50 mg tablet Take 1 Tablet by mouth every 4hours as needed for Migraine. ??? vit-iron fumarate-fa (HECTOR ) 28 mg iron- 800 mcg Tablet Take 1 Tablet by mouth . ??? metoclopramide HCl (REGLAN) 10 mg tablet Take 10 mg by mouth 2 times daily. ??? albuterol HFA 90 mcg inhaler Take 1 Puff by inhalation 2 times daily. ??? METFORMIN HCL (METFORMIN ORAL) Take 500 mg by mouth 2 times daily . Medication Allergies: Allergies Allergen Reactions ??? Adhesive Other (See Comments) Skin irritation ??? Other Drug [Unclassified Drug] Other (See Comments) control pills cause vaginal bleeding Review of Systems: General: No recent weight or appetite changes, no fever or chills. Skin: No rashes or eruptions. HEENT: No vision complaints; no post nasal drainage or nasal congestion, no oral ulcerations. Lungs: As above. Cardiac: No palpitations or dizziness, positive for exertional dyspnea Gastrointestinal: No nausea/vomiting, no abdominal pain or change in bowel habits, no reflux symptoms. No hematemesis or melena. Genitourinary: No dysuria or hematuria. Musculoskeletal: No back pain, neck pain or joint pain or swelling. Neurological: no numbness or tingling, no syncope, no focal weakness. PHYSICAL EXAMINATION: Vitals: 03/23/18 0127 03/23/18 0244 03/23/18 0614 03/23/18 0815 BP: 130/77 124/61 BP Location: Left arm Patient Position (BP): Supine Pulse: Resp: 18 Temp: 97.8 ??F (36.6 ??C) TempSrc: Oral SpO2: 98% 96% 97% Weight: 105.7 kg (233 lb) Height: 5' 6 (1.676 m) General: Alert and stable, appears in no acute distress. HEENT: Normocephalic and atraumatic. STEVE, nasal mucosa is normal with no erythema or exudate. Neck: Supple, trachea midline, no adenopathy, thyroid normal. No jugular venous distension. Lungs: Bilateral equal and clear breath sounds to auscultation. No crackles or wheeze. Heart: Heart sounds are normal and regular. 3/6 systolic murmur present over precordium. Abdomen: Soft, gravid and Non-Tender. No hepatosplenomegaly. Bowel sounds are present and normal. Extremities: No cyanosis, clubbing or edema Skin: Skin color and texture appears normal, no rashes or erythema. Lymph Nodes: Cervical, supraclavicular nodes normal. Neurologic: Non focal. LABS: BMP: Recent Labs 03/22/18 2223 GLUCOSE 89 BUN 6 CREAT 0.56 NA 138 K 3.2* CL 100 CO2 25 ANIONGAP 13 LFTs: Recent Labs 03/22/18 2223 03/23/18 0031 ALKPHOS 137* -- ALT 18 -- AST 17 -- BILITOTAL <0.2* -- ALBUMIN 3.8 -- AMYLASE -- 47 LIPASE -- 58 CBC: Recent Labs 03/22/18 2223 WBC 7.7 HGB 12.6 HCT 37.1 PLT 258 MCV 85.9 Imaging: I have personally reviewed all pertinent radiographic images CT ANGIOGRAPHY OF THE CHEST WITHOUT AND WITH INTRAVENOUS CONTRAST AND CT RECONSTRUCTIONS DATE: 03/23/2018 10:12 AM FINDINGS: Mediastinal windows demonstrate no intraluminal filling defects within the pulmonary arteries to suggest pulmonary emboli. The thoracic aorta is normal in caliber, without evidence of dissection. No mediastinal, hilar, or axillary adenopathy is seen. Mild residual thymic tissue is noted. No pericardial or pleural effusions are seen.?? Lung parenchymal windows demonstrate mild patchy groundglass opacities throughout the lungs. This may be related to minimal infiltrate or small airways disease. No focal consolidation is seen. No pneumothorax is evident. The extreme lung apices and lung bases were excluded from the images to limit radiation dose.?? IMPRESSION: 1. No CT evidence of pulmonary emboli. 2. Mild scattered minimal infiltrate versus small airways disease. 3. No focal consolidation. Hospital Problem List Active Problems: Shortness of breath during Overview: Exertional SOB Thank you for this consultation, shall continue to follow along and address the relevant pulmonary issues. Rajendra Virgen MD Pulmonary, Critical Care, Neurocritical Care & Sleep Medicine [facility], Ronnie Thao Off: [phone] Pager: [phone] * Natanael Thompson MD - 03/23/2018 2:19 PM CDTAssociated Order(s): IP CONSULT TO HOSPITALIST [facility] Adult Hospitalist Consultation Consult requested by Keo Marquez MD Patient Name: Vera Vitale Primary Care Physician: Rachid Colindres DO Date of admission: 03/22/2018 Date of Service: 03/23/2018 Impression and Recommendations 1. Chest pain/shortness of breath; troponins ??2 negative, EKG did not show any acute ischemic change, CTA chest done by primary did not show any pulmonary embolism or dissection. Check ECHO. 2. Anxiety/depression; on home medications 3. Hypokalemia; replace 4. PCOs; metformin 5. Hypokalemia; replace 6. Antepartum care; per primary 7. Nausea; antiemetics 8. DVT Prophylaxis: 9. GI prophylaxis: None Reason for consultation: Medical management HPI: Patient is a 32 y.o. female with past medical history of PCO S, depression currently 23 weeks presenting with chest pain. She describes the chest pains are sharp and stabbing present onboth sides of the chest, 5 out of 10 pain radiating the back. Increase with deep breathing and movement of the chest. No specific point tenderness. Not associated with any nausea vomiting. Does have s ome associated shortness of breath with exertion. She states that she has family history of high blood pressure, no premature cardiac in family. Her initial EKG did not show any acute changes. She had a repeat CTA chest ordered by the primary which was negative for PE/dissection. Hospitalist was consulted for medical management. Past Medical History: Past Medical History: Diagnosis Date ??? Anxiety Zoloft ??? Bipolar affective disorder ??? Depression bipolar ??? Herniated cervical disc ??? High cholesterol ??? Hyperemesis gravidarum ??? Migraines ??? MRSA (methicillin resistant Staphylococcus aureus) 08/2009 cysts on leg, never cultured-told it was staph and was given medication ??? Nutritional anemia, unspecified ??? PCOS (polycystic ovarian syndrome) ??? Trichimoniasis 2005 Past Surgical History: Past Surgical History: Procedure Laterality Date ??? HCHG DILITATION AND CURETTAGE 01/14/2014 ??? HX CHOLECYSTECTOMY 02/2010 ??? HX CRANIOTOMY 2016 ??? HX DILATION AND CURETTAGE 01/2014 per fertility MD ??? HX EAR SURGERY ??? HX LEFT OOPHORECTOMY ??? HX LYMPH NODE DISSECTION 10/2014 armpit ??? LAP CHOLECYSTECTOMY ??? ME DELIVERY ONLY 11/21/2010 SECTION performed by KEO JULIEN at [facility] L&D ??? ME DELIVERY ONLY N/A 09/13/2016 SECTION performed by Keo Julien MD at [facility] L&D ??? ME LAP,RMV ADNEXAL STRUCTURE N/A 08/06/2015 LEFT SALPINGECTOMY LAPAROSCOPIC FOR ECTOPIC performed by Ayde Judge MD at [facility] OR MAIN Home Medications: Prior to Admission Medications Prescriptions Last Dose Informant Patient Reported? Taking? HYDROcodone-acetaminophen (NORCO) 5-325 mg tablet 03/22/2018 at AM No Yes Sig: Take 1 Tablet by mouth every 4 hours as needed for Pain Do not drive or drink alcohol while taking this medication. This may cause constipation.. Max Daily Amount: 6 Tablets L-methylfolate (L-METHYLFOLATE) 15 mg Tablet Unknown at Unknown time Yes No Sig: Take 15 mg by mouth . METFORMIN HCL (METFORMIN ORAL) 03/22/2018 at AM Yes Yes Sig: Take 500 mg by mouth 2 times daily . xtutamlqqdyda-enfhnvdt-lhxipnfpbn (FIORICET) 325-40-50 mg tablet 03/22/2018 at AM Yes Yes Sig: Take 1 Tablet by mouth every 4 hours as needed for Migraine. albuterol HFA 90 mcg inhaler 03/22/2018 at [facility] Yes Yes Sig: Take 1 Puff by inhalation 2 times daily. amitriptyline (ELAVIL) 10 mg tablet at D/C No No Sig: Take 1 Tablet (10 mg) by mouth daily at bedtime. buspirone HCl (BUSPIRONE ORAL) 03/22/2018 at [facility] Yes Yes Sig: Take by mouth. doxylamine (UNISOM) 25 mg Tablet No No Sig: Take 1 Tablet (25 mg) by mouth daily at bedtime. escitalopram oxalate (LEXAPRO) 20 mg tablet at D/C No No Sig: Take 1 Tablet (20 mg) by mouth late in the day. metoclopramide HCl (REGLAN) 10 mg tablet 03/22/2018 at PM Yes Yes Sig: Take 10 mg by mouth 2 times daily. ondansetron (ZOFRAN ODT) 4 mg Tablet, Rapid Dissolve 03/22/2018 at NOON No Yes Sig: Place 1 Tablet (4 mg) under tongue every 6 hours Dissolve tablet on top of tongue, then swallow with saliva.. pantoprazole (PROTONIX) 40 mg Tablet, Delayed Release (E.C.) 03/22/2018 at [facility] No Yes Sig: Take 1 Tablet (40 mg) by mouth daily. vit-iron fumarate-fa (HECTOR ) 28 mg iron- 800 mcg Tablet 03/22/2018 at AM Yes Yes Sig: Take 1 Tablet by mouth . progesterone micronized (PROMETRIUM) 200 mg Capsule Yes No Sig: Take by mouth daily. promethazine (PHENERGAN) 25 mg Suppository No No Sig: Insert 1 Suppository (25 mg) by rectum every 6 hours as needed for Nausea/Emesis. pyridoxine, vitamin B6, (VITAMIN B6) 25 mg Tablet 03/22/2018 at AM No Yes Sig: Take 1 Tablet (25 mg) by mouth every 12 hours. vortioxetine hydrobromide (TRINTELLIX ORAL) 03/22/2018 at [facility] Yes Yes Sig: Take by mouth. Facility-Administered Medications: None Medication Allergies: Allergies Allergen Reactions ??? Adhesive Other (See Comments) Skin irritation ??? Other Drug [Unclassified Drug] Other (See Comments) control pills cause vaginal bleeding Family History: Family History Problem Relation Age of Onset ??? Diabetes Father ??? Thyroid Disease Father ??? Hypertension Mother ??? Diabetes Brother Social History: Social History Substance Use Topics ??? Smoking status: Former Smoker Packs/day: 0.50 Years: 10.00 Types: Cigarettes ??? Smokeless tobacco: Never Used ??? Alcohol use No Review of Systems: Gen: No fever or chills Eyes: No visual changes Ears: No change in hearing Endocrine: No heat or cold intolerance Pulm: No cough or SOB Cardiac: No chest pain or orthopnea GI: No nausea, vomiting, constipation or diarrhea : No hematuria, urgency or frequency Musculoskeletal: No pain or weakness Neuro: No numbness or tingling Psych: No anxiety or depression Skin: No rashes or eruptions All other ROS reviewed and are negative Physical Exam: Patient Vitals for the past 8 hrs: BP SpO2 03/23/18 0815 124/61 97 % No intake or output data in the 24 hours ending 03/23/18 1419 General: Alert, no distress. Heart: Regular rate and rhythm, S1, S2 normal, no murmur, click, rub or gallop. Lungs: Clear to auscultation bilaterally. Abdomen: Soft, non-tender. Bowel sounds times four. No masses, No organomegaly. Extremities: No clubbing, cyanosis or edema Skin: Skin color, texture, turgor normal. No rashes or lesions. Warm and dry. Head: Normocephalic, atraumatic Neck: Supple, symmetrical, trachea midline, no adenopathy. Neuro: CNII-XII intact. Normal strength, sensation and reflexes throughout. DATA BASE: Results for orders placed or performed during the hospital encounter of 03/22/18 (from the past 24 hour(s)) CBC WITH DIFFERENTIAL Result Value Ref Range WBC 7.7 4.0 - 9.8 K/uL RBC 4.32 3.90 - 4.90 M/uL HEMOGLOBIN 12.6 11.8 - 14.8 g/dL HEMATOCRIT 37.1 35.5 - 44.0 % MCV 85.9 82.0 - 99.0 fL MCH 29.2 27.2 - 32.6 pg MCHC 34.0 31.5 - 35.5 g/dL RDW 14.0 11.5 - 14.5 % RDW-STDEV 44.1 37.1 - 48.7 fL PLATELETS 258 140 - 350 K/uL MPV 8.7 (L) 9.3 - 12.4 fL NEUTROPHILS 67 % LYMPHOCYTES 25 % MONOCYTES 6 % EOSINOPHILS 1 % BASOPHILS 0 % IMMATURE GRANULOCYTES 0 % NEUTROPHIL ABSOLUTE 5.19 1.90 - 7.00 K/uL LYMPHOCYTE ABSOLUTE 1.93 0.70 - 4.50 K/uL MONOCYTE ABSOLUTE 0.48 0.10 - 1.30 K/uL EOSINOPHIL ABSOLUTE 0.05 0.00 - 0.70 K/uL BASOPHILS ABSOLUTE 0.02 0.00 - 0.20 K/uL IMMATURE GRANULOCYTES ABSOLUTE 0.02 0.00 - 0.03 K/uL COMPREHENSIVE METABOLIC PANEL Result Value Ref Range SODIUM 138 136 - 145 mmol/L POTASSIUM 3.2 (L) 3.5 - 5.0 mmol/L CHLORIDE 100 98 - 107 mmol/L CO2 25 22 - 29 mmol/L CALCIUM 10.0 8.6 - 10.2 mg/dL BUN 6 6 - 20 mg/dL CREATININE 0.56 0.51 - 0.95 mg/dL GLUCOSE 89 74 - 99 mg/dL TOTAL PROTEIN 6.9 6.7 - 8.6 g/dL ALBUMIN 3.8 3.5 - 5.2 g/dL BILIRUBIN TOTAL <0.2 (L) 0.3 - 1.2 mg/dL ALKALINE PHOSPHATASE 137 (H) 35 - 104 U/L AST 17 <33 U/L ALT 18 <34 U/L GFR >60 >=60 mL/min/1.73 sq meter GFR, >60 >=60 mL/min/1.73 sq meter ANION GAP 13 8 - 16 mmol/L BRAIN NATRIURETIC PEPTIDE, BNP OR PROBNP Result Value Ref Range PROBNP, N TERMINAL <50 <124 pg/mL TROPONIN BASELINE, 5TH GEN Result Value Ref Range TROPONIN T, BASELINE 5TH GEN <6 <=10 ng/L TROPONIN 2 HR, 5TH GEN Result Value Ref Range TROPONIN T, 2 HR 5TH GEN <6 <=10 ng/L AMYLASE Result Value Ref Range AMYLASE 47 28 - 100 U/L LIPASE Result Value Ref Range LIPASE 58 13 - 60 U/L TROPONIN 6 HR, 5TH GEN Result Value Ref Range TROPONIN T, 6 HR 5TH GEN <6 <=10 ng/L [facility]. I have taken the liberty of writing orders consistent with my recommendations. Natanael Thompson MD documented in this encounter ED Notes * Makenna Pelaez RN - 03/23/2018 12:40 AM CDT Called report to Cora Santiago, Room is clean. Transportation aware of pt. Needing to be taken up to the floor. * Makenna Pelaez RN - 03/23/2018 12:34 AM CDT This nurse obtained second trop per md orders. Patient/family has been informed about benefits and any potential clinically significant side effects or other concerns regarding the administration of the drug they have just been given. * Makenna Pelaez RN - 03/22/2018 11:30 PM CDT Pt. Awaiting for her disposition. Will cont. To monitor pt. * Makenna Pelaez RN - 03/22/2018 10:30 PM CDT Pt. Up to the BSC with out assist to void. VSS * Makenna Pelaez RN - 03/22/2018 9:38 PM CDT Pt. Present to er d/t sob all the time. Pt. Stated, i was here this past Sunday and I had a VQ scan and ct scan of my chest to r/o pe and they couldn't rule it out. Pt is talking in full sentenceswithout any problems. Pt is also c/o chest pain that radiates to upper back. * Karissa Rust MD - 03/22/2018 7:44 PM CDT Images from the original note were not included. Emergency Department Attending Physician Note Seen in the ED by Dr. Karissa Rust MD History of Present Illness Documented Triage Chief Complaint: Shortness of Breath Subjective Provider was at the bedside at 10:17 PM Vera Vitale is a 32 y.o. female at 23 weeks, who presents with constant chest pain that radiates to her back, and associated SOB onset 5 days ago. Pt reports she was here 5 days ago for CP, and was sent here again today by her OB after talking tohim on the phone today. She decsribes the CP as a constant pressure, like someone is squeezing. She reports the left sided CP began 5 days ago and today began on the right side. She reports it is worse with sitting straight up. Has taken hydrocodone for pain without relief. Has used an inhaler at home without relief. Denies increased anxiety or stress. Timing: gradual Severity: moderate Duration: Recurrent Frequency: Constant Progression: Worsening Quality: see above Modifiers: see above Associated symptoms: see above Mode of Arrival: private transportation Primary Care Doctor: Rachid Colindres, DO Patient information was obtained from primarily from the patient History/Exam limitations: none Review of Systems ?? A comprehensive review of systems was completed. All other systems negative except as marked. ?? See HPI for additional ROS Review of Systems Constitutional: Negative for chills and fever. HENT: Negative for congestion. Respiratory: Positive for shortness of breath. Negative for cough. Cardiovascular: Positive for chest pain. Negative for leg swelling. Gastrointestinal: Negative for abdominal pain, diarrhea, nausea and vomiting. Endocrine: Negative for polydipsia. Genitourinary: Negative for dysuria. Musculoskeletal: Negative for myalgias. Allergic/Immunologic: Negative for immunocompromised state. Neurological: Negative for headaches. Relevant Medical History Past Medical History: Patient Past Medical History: Diagnosis Date ??? Anxiety Zoloft ??? Bipolar affective disorder ??? Depression bipolar ??? Herniated cervical disc ??? High cholesterol ??? Hyperemesis gravidarum ??? Migraines ??? MRSA (methicillin resistant Staphylococcus aureus) 08/2009 cysts on leg, never cultured-told it was staph and was given medication ??? Nutritional anemia, unspecified ??? PCOS (polycystic ovarian syndrome) ??? Trichimoniasis 2005 Past Surgical History: Patient Past Surgical History: Procedure Laterality Date ??? HCHG DILITATION AND CURETTAGE 01/14/2014 ??? HX CHOLECYSTECTOMY 02/2010 ??? HX CRANIOTOMY 2016 ??? HX DILATION AND CURETTAGE 01/2014 per fertility MD ??? HX EAR SURGERY ??? HX LEFT OOPHORECTOMY ??? HX LYMPH NODE DISSECTION 10/2014 armpit ??? LAP CHOLECYSTECTOMY ??? ME DELIVERY ONLY 11/21/2010 SECTION performed by KEO JULIEN at [facility] L&D ??? ME DELIVERY ONLY N/A 09/13/2016 SECTION performed by Keo Julien MD at [facility] L&D ??? ME LAP,RMV ADNEXAL STRUCTURE N/A 08/06/2015 LEFT SALPINGECTOMY LAPAROSCOPIC FOR ECTOPIC performed by Ayde Judge MD at [facility] OR MAIN Family History: Patient's family history includes Diabetes in her brother and father; Hypertension in her mother; Thyroid Disease in her father. Social History: Patient reports that she has quit smoking. Her smoking use included Cigarettes. She has a 5.00 pack-year smoking history. She has never used smokeless tobacco. She reports that she currently engages in sexual activity and has had male partners. She reports using the following method of control/protection: None. She reports that she does not drink alcohol or use drugs. Social History Other Topics Concern ??? Not on file Problems List: Patient has C section 11/21; Normal (single liveborn); Tobacco use; 08/06 L ruptured ectopics/p dx lap, L fallopian; percocet, ADAT; Feeling pelvic pressure during in second trimester, antepartum; Viral gastritis; Nausea and vomiting during ; Diarrhea; related fatigue in third trimester; SOB (shortness of breath); S/P section; Cholestasis during ; Bipolar affective disorder, currently depressed, moderate; CLOTILDE (generalized anxiety disorder);Nausea; Dyspnea on exertion; and Chest pain on her problem list. Allergies: Adhesive and Other drug [unclassified drug] Home Medications: Discharge Medication List as of 03/24/2018 3:24 PM CONTINUE these medications which have NOT CHANGED Details HYDROcodone-acetaminophen (NORCO) 5-325 mg tablet Take 1 Tablet by mouth every 4 hours as needed for Pain Do not drive or drink alcohol while taking this medication. This may cause constipation.. MaxDaily Amount: 6 Tablets, Disp-6 Tablet, R-0 ondansetron (ZOFRAN ODT) 4 mg Tablet, Rapid Dissolve Place 1 Tablet (4 mg) under tongue every 6 hours Dissolve tablet on top of tongue, then swallow with saliva.., Disp-30 Tablet, R-2 pantoprazole (PROTONIX) 40 mg Tablet, Delayed Release (E.C.) Take 1 Tablet (40 mg) by mouth daily.,Disp-60 Tablet, R-4 pyridoxine, vitamin B6, (VITAMIN B6) 25 mg Tablet Take 1 Tablet (25 mg) by mouth every 12 hours., Disp-60 Tablet, R-4 buspirone HCl (BUSPIRONE ORAL) Take by mouth. vortioxetine hydrobromide (TRINTELLIX ORAL) Take by mouth. dtmqjwwiydibw-rmemlnxy-xirajrvciu (FIORICET) 325-40-50 mg tablet Take 1 Tablet by mouth every 4 hours as needed for Migraine. vit-iron fumarate-fa (HECTOR ) 28 mg iron- 800 mcg Tablet Take 1 Tablet by mouth . metoclopramide HCl (REGLAN) 10 mg tablet Take 10 mg by mouth 2 times daily. albuterol HFA 90 mcg inhaler Take 1 Puff by inhalation 2 times daily. METFORMIN HCL (METFORMIN ORAL) Take 500 mg by mouth 2 times daily . promethazine (PHENERGAN) 25 mg Suppository Insert 1 Suppository (25 mg) by rectum every 6 hours as needed for Nausea/Emesis., Disp-10 Suppository, R-2 doxylamine (UNISOM) 25 mg Tablet Take 1 Tablet (25 mg) by mouth daily at bedtime., Disp-60 Tablet, R-4 progesterone micronized (PROMETRIUM) 200 mg Capsule Take by mouth daily. escitalopram oxalate (LEXAPRO) 20 mg tablet Take 1 Tablet (20 mg) by mouth late in the day., Disp-30 Tablet, R-2 amitriptyline (ELAVIL) 10 mg tablet Take 1 Tablet (10 mg) by mouth daily at bedtime., Disp-30 Tablet, R-2 L-methylfolate (L-METHYLFOLATE) 15 mg Tablet Take 15 mg by mouth . Objective Physical Exam BP: 99/48 (03/24/18 0508), Pulse: 79 (03/23/18 0000), Resp: 16 (03/24/18 0508), Temp: 97.5 ??F (36.4 ??C) (03/23/182223), Temp src: Oral (03/23/182223) Physical Exam Constitutional: She is oriented to person, place, and time. She appears well- developed. No distress. Obese HENT: Head: Normocephalic and atraumatic. Eyes: EOM are normal. Neck: Normal range of motion. Cardiovascular: Normal rate, regular rhythm and normal heart sounds. Pulmonary/Chest: Effort normal and breath sounds normal. No respiratory distress. She has no wheezes. Abdominal: Soft. There is no tenderness. Musculoskeletal: Normal range of motion. Neurological: She is alert and oriented to person, place, and time. No cranial nerve deficit. Skin: Skin is warm, dry and intact. Psychiatric: Judgment normal. Studies and Interpretation Pulse Oximetry Interpretation: Saturation: SpO2: 97 % (03/24/18 0651)] Oxygen Delivery: room air Interpretation: No hypoxia at this time. Rhythm Strip Interpretation (independent interpretation by Dr. Karissa Rust MD): Normal Sinus Rhythm Ventricular Rate: 77 Initial Electrocardiogram (independent interpretation by Karissa Rust MD): Normal Sinus Rhythm at 72 bpm. [place] Deviation: none Intervals: normal ST segments: no changes Attempted to obtain old ECG and noted: unchanged from 03/17/18 Labs: (Reviewed by myself), Significant for: CBC WITH DIFFERENTIAL - Abnormal Result Value WBC 7.7 RBC 4.32 HEMOGLOBIN 12.6 HEMATOCRIT 37.1 MCV 85.9 MCH 29.2 MCHC 34.0 RDW 14.0 RDW-STDEV 44.1 PLATELETS 258 MPV 8.7 (*) NEUTROPHILS 67 LYMPHOCYTES 25 MONOCYTES 6 EOSINOPHILS 1 BASOPHILS 0 IMMATURE GRANULOCYTES 0 NEUTROPHIL ABSOLUTE 5.19 LYMPHOCYTE ABSOLUTE 1.93 MONOCYTE ABSOLUTE 0.48 EOSINOPHIL ABSOLUTE 0.05 BASOPHILS ABSOLUTE 0.02 IMMATURE GRANULOCYTES ABSOLUTE 0.02 COMPREHENSIVE METABOLIC PANEL - Abnormal SODIUM 138 POTASSIUM 3.2 (*) CHLORIDE 100 CO2 25 CALCIUM 10.0 BUN 6 CREATININE 0.56 GLUCOSE 89 TOTAL PROTEIN 6.9 ALBUMIN 3.8 BILIRUBIN TOTAL <0.2 (*) ALKALINE PHOSPHATASE 137 (*) AST 17 ALT 18 GFR >60 GFR, >60 ANION GAP 13 BRAIN NATRIURETIC PEPTIDE, BNP OR PROBNP - Normal PROBNP, N TERMINAL <50 TROPONIN BASELINE, 5TH GEN - Normal TROPONIN T, BASELINE 5TH GEN <6 Imaging (all imaging was independently reviewed by myself): No orders to display Critical Care / Procedures No critical care or procedures performed at this time.?? Medical Decision Making and ED Course Patient seen and examined by me. Differentials include: pericarditis considered, however pain worsens with sitting up and improves laying back. Also ACS, anxiety, PE considered but unlikely given she just had CTA 1 day prior which was WNL. . Initial treatment includes: Labs, EKG Patient is 23 weeks . Was seen here in the ER on 03/17/18 for similar complaints. Patient hadV/Q scan which showed a perfusion deficit. CTA ordered at that time showing no PE. However there were findings for classical obstructive lung disease. Patient does have a history of asthma...however,her symptoms are not alleviated with albuterol.Patient was subsequently discharged home with percocet. Given today's symptom, no etiology. Patient has not had echo. Will admit to [facility] with medical consult. 12:01 AM: D[facility]w NEO Mens[facility] who agrees to medical consult by Dr. Parra. 12:25 AM: Discussed the patient's medical history, history of present illness, and current findingswith OBGyn resident for Dr. Julien who agrees with plan for admission. 12:30 AM: Updated patient on results, diagnosis, and plan for admission. Patient understands and agrees with plan. All questions and concerns addressed. ED provider and ED nurse verbally discussed patient plan of care at this time. Further Management Decisions and Complexity --Triage notes and available nursing notes reviewed, vitals reviewed. -- I agree with the nursing notes reviewed unless noted in the body of this record. --Clinical lab tests: ordered and reviewed in detail by myself prior to discharge/admission --Independent visualization of any images, tracings, or specimens (including EKGs, Labs) performed by myself: yes --Attempted to obtain, review and summarize past medical records: yes --Previous electrocardiograms reviewed: no --Discussed the patient with other providers: yes --I reviewed and interpreted all of the diagnostic tests ordered on the patient. The results of these tests were discussed with the patient/family in detail and all questions were answered to the patient's apparent satisfaction. Medications Ordered/Given Medications Administered During the ED Stay from 03/22/2018 1944 to 03/23/2018 0052 Date/Time Order Dose Route Action 03/23/2018 0031 sodium chloride 0.9% infusion 125 mL/hr IV New Bag New Medications Discharge Medication List as of 03/24/2018 3:24 PM CONTINUE these medications which have NOT CHANGED Details HYDROcodone-acetaminophen (NORCO) 5-325 mg tablet Take 1 Tablet by mouth every 4 hours as needed for Pain Do not drive or drink alcohol while taking this medication. This may cause constipation.. MaxDaily Amount: 6 Tablets, Disp-6 Tablet, R-0 ondansetron (ZOFRAN ODT) 4 mg Tablet, Rapid Dissolve Place 1 Tablet (4 mg) under tongue every 6 hours Dissolve tablet on top of tongue, then swallow with saliva.., Disp-30 Tablet, R-2 pantoprazole (PROTONIX) 40 mg Tablet, Delayed Release (E.C.) Take 1 Tablet (40 mg) by mouth daily.,Disp-60 Tablet, R-4 pyridoxine, vitamin B6, (VITAMIN B6) 25 mg Tablet Take 1 Tablet (25 mg) by mouth every 12 hours., Disp-60 Tablet, R-4 buspirone HCl (BUSPIRONE ORAL) Take by mouth. vortioxetine hydrobromide (TRINTELLIX ORAL) Take by mouth. eagsorgdfohij-dppdazva-udsbargxba (FIORICET) 325-40-50 mg tablet Take 1 Tablet by mouth every 4 hours as needed for Migraine. vit-iron fumarate-fa (HECTOR ) 28 mg iron- 800 mcg Tablet Take 1 Tablet by mouth . metoclopramide HCl (REGLAN) 10 mg tablet Take 10 mg by mouth 2 times daily. albuterol HFA 90 mcg inhaler Take 1 Puff by inhalation 2 times daily. METFORMIN HCL (METFORMIN ORAL) Take 500 mg by mouth 2 times daily . promethazine (PHENERGAN) 25 mg Suppository Insert 1 Suppository (25 mg) by rectum every 6 hours as needed for Nausea/Emesis., Disp-10 Suppository, R-2 doxylamine (UNISOM) 25 mg Tablet Take 1 Tablet (25 mg) by mouth daily at bedtime., Disp-60 Tablet, R-4 progesterone micronized (PROMETRIUM) 200 mg Capsule Take by mouth daily. escitalopram oxalate (LEXAPRO) 20 mg tablet Take 1 Tablet (20 mg) by mouth late in the day., Disp-30 Tablet, R-2 amitriptyline (ELAVIL) 10 mg tablet Take 1 Tablet (10 mg) by mouth daily at bedtime., Disp-30 Tablet, R-2 L-methylfolate (L-METHYLFOLATE) 15 mg Tablet Take 15 mg by mouth . Final diagnoses: [R06.09] Dyspnea on exertion (Primary) [R07.9] Chest pain, unspecified type Final Disposition Vitals at Disposition: BP 99/48 (BP Location: Right arm, Patient Position (BP): Lying left side) Pulse 79 Temp 97.5 ??F (36.4 ??C) (Oral) Resp 16 Ht 5' 6 (1.676 m) Wt 105.7 kg (233 lb) LMP 10/07/2017 SpO2 97% ? No BMI 37.61 kg/m?? Patient to be admitted in stable condition Attestation Statement This note has been prepared by Juan Carlos Santos acting as a scribe for Dr. Karissa Rust on 03/22/2018 at 1:05 AM. The scribe's documentation has been prepared under my direction and personally reviewed by me, Karissa Rust, in its entirety on 03/25/18 at 6:47 AM. I confirm that the note above accurately reflects all work, treatment, procedures, and medical decision making performed by me. Note: This H+P was created with the aid of dictation software, thus there may be some word substitutions or errors. documented in this encounter Miscellaneous Notes * Care Plan - Barb Stubbs LMSW - 03/23/2018 4:14 PM CDT SW met briefly with pt to provide Observation notice. Prior to meeting, SW completed chart review and noted hx of post depression and behavioral health admission. SW d/w pt who stated she has been feeling well during with no current concerns of depression. Pt stated she feels she has the support she needs and knows how to get help if needed. Declined resources at this time. JESÚS d/w pt that SW can meet with pt at delivery to provide additional resources. LUCIEN Baumann, JOSÉ LUIS [id number] [place] [facility]: Adult and Obstetrics Day 1 ??? Patient, family, or healthcare designee is participating in individual care plan process Met Discharge Planning ??? Identify discharge needs upon admission and through discharge Progressing documented in this encounter Plan of Treatment Upcoming Encounters Date Type Department Care Team (Late st Contact Info) Description 10/14/2024 11:00 AM SLOT MANAGER Office Visit [facility] Oncology and Hematology - Alirio [address] [facility] [address] [place] [address] Ubaldo Cardenas MD [address] [facility] [address] [place] [address] documented as of this encounter Procedures Procedure Name Priority Date/Time Associated Diagnosis Comments ECHO COMPLETE Routine 03/24/2018 8:21 AM CDT POTASSIUM LEVEL Routine 03/24/2018 5:12 AM CDT CTA CHEST W WO CONTRAST Routine 03/23/2018 10:12 AM CDT TROPONIN 6 HR, 5TH GEN Timed Study 03/23/2018 4:11 AM CDT C-REACTIVE PROTEIN Routine 03/23/2018 4: 11 AM CDT TROPONIN 2 HR, 5TH GEN Timed Study 03/23/2018 12:31 AM CDT LIPASE Routine 03/23/2018 12:31 AM CDT AMYLASE Routine 03/23/2018 12:31 AM CDT EKG 12-LEAD Stat 03/22/2018 10:26 PM CDT TROPONIN BASELINE, 5TH GEN Stat 03/22/2018 10:23 PM CDT CBC WITH DIFFERENTIAL Stat 03/22/2018 10:23 PM CDT BRAIN NATRIURETIC PEPTIDE, BNP OR PROBNP Stat 03/22/2018 10:23 PM CDT COMPREHENSIVE METABOLIC PANEL Stat 03/22/2018 10:23 PM CDT documented in this encounter Results * ECHO COMPLETE (03/24/2018 8:21 AM CDT) EJECTION FRACTION INTERFACE SYSTEM 03/24/2018 7:51 AM CDT Narrative INTERFACE SYSTEM - 03/24/2018 11:17 AM CDT [address] [address] [email or web address] Transthoracic Echocardiography Patient: ?Vera Vitale MRN: ?[id number] Study ID: ? [id number] Gender: ? F : ?1985 Age: ?32 Race: ? [facility] Height ?167.6cm Study Date: ? 03/24/2018 Weight: ? 105.7kg Access. #: ?[id number] Account #: ?[id number] BP: *Referring Physician:* Natanael Thompson *Ordering Physician:* ??Natanael Thompson Furniture Sales Associate: Indications: Chest pain. STUDY CONCLUSIONS: SUMMARY: - Left ventricle: The cavity size was normal. Wall thickness ??was normal. Global systolic function was normal. Left ??ventricular diastolic function parameters were normal. ??Ejection fraction (MOD, 2-plane): 69%. - Left atrium: The atrium was normal in size. - Right ventricle: The cavity size was normal. Systolic ??function was normal. Cardiac Anatomy: LEFT VENTRICLE: ??The cavity size was normal. Wall thickness was normal. Global systolic function was normal. Wall motion was normal; there were no regional wall motion abnormalities. Left ventricular diastolic function parameters were normal. AORTIC VALVE: ?? Structurally normal valve. Trileaflet. Doppler: ??Transvalvular velocity was within the normal range. There was no stenosis. ??No significant regurgitation. ?? VTI ratio of LVOT to aortic valve: 0.92. Valve area (VTI): 3.2cm^2. Indexed valve area (VTI): 1.5cm^2/m^2. Peak velocity ratio of LVOT to aortic valve: 0.76. Valve area (Vmax): 2.63cm^2. Indexed valve area (Vmax): 1.23cm^2/m^2. Mean gradient (S): 6mm Hg. Peak gradient (S): 12mm Hg. AORTA: ??Aortic root: The aortic root was normal in size. MITRAL VALVE: ?? Structurally normal valve. ?Doppler: Transvalvular velocity was within the normal range. There was no evidence for stenosis. ??No significant regurgitation. ?? Mean gradient (D): 2mm Hg. Peak gradient (D): 5mm Hg. LEFT ATRIUM: ??The atrium was normal in size. RIGHT VENTRICLE: ??The cavity size was normal. Systolic function was normal. PULMONIC VALVE: ?? Structurally normal valve. ?Doppler: No significant regurgitation. TRICUSPID VALVE: ?? Structurally normal valve. ?Doppler: Mild regurgitation. PULMONARY ARTERY: ??Systolic pressure was within the normal range. RIGHT ATRIUM: ??The atrium was normal in size. PERICARDIUM: ??There was no pericardial effusion. SYSTEMIC VEINS: Inferior vena cava: The vessel was normal in size. Measurements Left ventricle ? Value ?Reference LV ID, ED, PLAX chordal ??(L) ? 3.4 ?? cm ? 43.0 - 52.0 LV ID, ES, PLAX chordal ??(L) ? 2.1 ?? cm ? 23.0 - 38.0 LV fx shortening, PLAX ?? (N) ? 38 ?% ?>=29 chordal LV PW thickness, ED ?1.2 ?? cm ? IVS/LV PW ratio, ED ?(N) ? 0.66 ? <=1.3 LV end-diastolic volume, ? 89 ?ml ? 2-p LV end-systolic volume, ?28 ?ml ? 2-p LV ejection fraction, ?69 ?% ? 2-p LV end-diastolic ? 42 ?ml/m^2 ?? volume/bsa, 2-p LV end-systolic ?13 ?ml/m^2 ?? volume/bsa, 2-p LV e', lateral ? 0.175 m/sec ? LV E/e', lateral ? 6 ? LV e', medial ?0.099 m/sec ? LV E/e', medial ?11 ? LV e', average ? 0.137 m/sec ? LV E/e', average ? 8 ? Ventricular septum ? Value ?Reference IVS thickness, ED ?0.8 ?? cm ? LVOT ? Value ?Reference LVOT ID, S ? 2.0 ?? cm ? LVOT area ?3 ? cm^2 ? LVOT peak velocity, S ?1.3 ?? m/sec ? LVOT VTI, S ?32.0 ??cm ? LVOT peak gradient, S ?7 ? mm Hg ? Aortic valve ? Value ?Reference Aortic valve peak ?1.7 ?? m/sec ? velocity, S Aortic valve VTI, S ?34.6 ??cm ? Aortic mean gradient, S ?6 ? mm Hg ? Aortic peak gradient, S ?12 ?mm Hg ? VTI ratio, LVOT/AV ? 0.92 ? Aortic valve area, VTI ? 3.2 ?? cm^2 ? Aortic valve area/bsa, ? 1.5 ?? cm^2/m^2 VTI Velocity ratio, peak, ?0.76 ? LVOT/AV Aortic valve area, peak ?2.63 ??cm^2 ? velocity Aortic valve area/bsa, ? 1.23 ??cm^2/m^2 peak velocity Aorta ?Value ?Reference Aortic root ID ? 2.3 ?? cm ? Left atrium ?Value ?Reference LA ID, A-P, ES ? 3.5 ?? cm ? LA ID/bsa, A-P ? (N) ? 1.6 ?? cm/m^2 ?? <=2.2 LA volume, ES, 2-p ? 45 ?ml ? LA volume/bsa, ES, 2-p ? 21 ?ml/m^2 ?? Mitral valve ? Value ?Reference Mitral E-wave peak ? 1.11 ??m/sec ? velocity Mitral A-wave peak ? 0.65 ??m/sec ? velocity Mitral deceleration time (H) ? 299 ?? ms ? 150 - 230 Mitral mean gradient, D ?2 ? mm Hg ? Mitral peak gradient, D ?5 ? mm Hg ? Mitral E/A ratio, peak ? 1.7 ? Tricuspid valve ?Value ?Reference Tricuspid regurg peak ?2.3 ?? m/sec ? velocity Tricuspid peak RV-RA ? 21 ?mm Hg ? gradient Pulmonic valve ? Value ?Reference Pulmonic valve peak ?1.2 ?? m/sec ? velocity, S Legend: (L) ??and ??(H) ??jose d values outside specified reference range. (N) ??moreno values inside specified reference range. Procedure data: Procedure information: ??Transthoracic echocardiography. Scanning was performed from the parasternal, apical, and subcostal acoustic windows. ?Transthoracic echocardiography. ??Complete 2D, complete spectral Doppler, and color Doppler. ??Birthdate: ??Patient birthdate: 1985. ??Age: ??Patient is 32yr old. ??Sex: ??Gender: female. ??Height: ??Height: 167.6cm. Height: 66in. ??Weight: Weight: 105.7kg. Weight: 232.5lb. ??Body mass index: ??BMI: 37.6kg/m^2. ??Body surface area: ?BSA: 2.13m^2. ??Study date: ??Study date: 03/24/2018. Study time: 07:51 AM. Prepared and Electronically Authenticated Rossy Romero MD [id number] Procedure Note Rossy Romero MD - 03/24/2018 [place] [address] [email or web address] Transthoracic Echocardiography Patient: Vera Vitale Study ID: [id number] Gender: F : 1985 Age: 32 Race: JUANCARLOS Height 167.6cm Study Date: 03/24/2018 Weight: 105.7kg Access. #: [id number] BP: *Referring Physician:* Natanael Thompson *Ordering Physician:* Natanael Thompson Furniture Sales Associate: Indications: Chest pain. STUDY CONCLUSIONS: SUMMARY: - Left ventricle: The cavity size was normal. Wall thickness was normal. Global systolic function was normal. Left ventricular diastolic function parameters were normal. Ejection fraction (MOD, 2-plane): 69%. - Left atrium: The atrium was normal in size. - Right ventricle: The cavity size was normal. Systolic function was normal. Cardiac Anatomy: LEFT VENTRICLE: The cavity size was normal. Wall thickness was normal. Global systolic function was normal. Wall motion was normal; there were no regional wall motion abnormalities. Left ventricular diastolic function parameters were normal. AORTIC VALVE: Structurally normal valve. Trileaflet. Doppler: Transvalvular velocity was within the normal range. There was no stenosis. No significant regurgitation. VTI ratio of LVOT to aortic valve: 0.92. Valve area (VTI): 3.2cm^2. Indexed valve area (VTI): 1.5cm^2/m^2. Peak velocity ratio of LVOT to aortic valve: 0.76. Valve area (Vmax): 2.63cm^2. Indexed valve area (Vmax): 1.23cm^2/m^2. Mean gradient (S): 6mm Hg. Peak gradient (S): 12mm Hg. AORTA: Aortic root: The aortic root was normal in size. MITRAL VALVE: Structurally normal valve. Doppler: Transvalvular velocity was within the normal range. There was no evidence for stenosis. No significant regurgitation. Mean gradient (D): 2mm Hg. Peak gradient (D): 5mm Hg. LEFT ATRIUM: The atrium was normal in size. RIGHT VENTRICLE: The cavity size was normal. Systolic function was normal. PULMONIC VALVE: Structurally normal valve. Doppler: No significant regurgitation. TRICUSPID VALVE: Structurally normal valve. Doppler: Mild regurgitation. PULMONARY ARTERY: Systolic pressure was within the normal range. RIGHT ATRIUM: The atrium was normal in size. PERICARDIUM: There was no pericardial effusion. SYSTEMIC VEINS: Inferior vena cava: The vessel was normal in size. Measurements Left ventricle Value Reference LV ID, ED, PLAX chordal (L) 3.4 cm 43.0 - 52.0 LV ID, ES, PLAX chordal (L) 2.1 cm 23.0 - 38.0 LV fx shortening, PLAX (N) 38 % >=29 chordal LV PW thickness, ED 1.2 cm IVS/LV PW ratio, ED (N) 0.66 <=1.3 LV end-diastolic volume, 89 ml 2-p LV end-systolic volume, 28 ml 2-p LV ejection fraction, 69 % 2-p LV end-diastolic 42 ml/m^2 volume/bsa, 2-p LV end-systolic 13 ml/m^2 volume/bsa, 2-p LV e', lateral 0.175 m/sec LV E/e', lateral 6 LV e', medial 0.099 m/sec LV E/e', medial 11 LV e', average 0.137 m/sec LV E/e', average 8 Ventricular septum Value Reference IVS thickness, ED 0.8 cm LVOT Value Reference LVOT ID, S 2.0 cm LVOT area 3 cm^2 LVOT peak velocity, S 1.3 m/sec LVOT VTI, S 32.0 cm LVOT peak gradient, S 7 mm Hg Aortic valve Value Reference Aortic valve peak 1.7 m/sec velocity, S Aortic valve VTI, S 34.6 cm Aortic mean gradient, S 6 mm Hg Aortic peak gradient, S 12 mm Hg VTI ratio, LVOT/AV 0.92 Aortic valve area, VTI 3.2 cm^2 Aortic valve area/bsa, 1.5 cm^2/m^2 VTI Velocity ratio, peak, 0.76 LVOT/AV Aortic valve area, peak 2.63 cm^2 velocity Aortic valve area/bsa, 1.23 cm^2/m^2 peak velocity Aorta Value Reference Aortic root ID 2.3 cm Left atrium Value Reference LA ID, A-P, ES 3.5 cm LA ID/bsa, A-P (N) 1.6 cm/m^2 <=2.2 LA volume, ES, 2-p 45 ml LA volume/bsa, ES, 2-p 21 ml/m^2 Mitral valve Value Reference Mitral E-wave peak 1.11 m/sec velocity Mitral A-wave peak 0.65 m/sec velocity Mitral deceleration time (H) 299 ms 150 - 230 Mitral mean gradient, D 2 mm Hg Mitral peak gradient, D 5 mm Hg Mitral E/A ratio, peak 1.7 Tricuspid valve Value Reference Tricuspid regurg peak 2.3 m/sec velocity Tricuspid peak RV-RA 21 mm Hg gradient Pulmonic valve Value Reference Pulmonic valve peak 1.2 m/sec velocity, S Legend: (L) and (H) jose d values outside specified reference range. (N) moreno values inside specified reference range. Procedure data: Procedure information: Transthoracic echocardiography. Scanning was performed from the parasternal, apical, and subcostal acoustic windows. Transthoracic echocardiography. Complete 2D, complete spectral Doppler, and color Doppler. Birthdate: Patient birthdate: 1985. Age: Patient is 32yr old. Sex: Gender: female. Height: Height: 167.6cm. Height: 66in. Weight: Weight: 105.7kg. Weight: 232.5lb. Body mass index: BMI: 37.6kg/m^2. Body surface area: BSA: 2.13m^2. Study date: Study date: 03/24/2018. Study time: 07:51 AM. Prepared and Electronically Authenticated Rossy Romero MD [id number] Natanael Thompson MD US ORDERABLES INTERFACE SYSTEM Refer to clinic/hospital department * POTASSIUM LEVEL (03/24/2018 5:12 AM CDT) POTASSIUM 3.6 3.5 - 5.0 mmol/L 03/24/2018 5:48 AM CDT [facility] Blood Venipuncture / Unknown 03/24/2018 5:12 AM CDT 03/24/2018 5:18 AM CDT Ayde Alexis MD CHEMISTRY ORDERABLES Performing Organization Address [facility] Co de Phone Number [facility]# [id number] [address] [place] [address] * CTA CHEST W WO CONTRAST (03/23/2018 10:12 AM CDT) Anatomical Region Laterality Modality Chest Computed Tomogra phy 03/23/2018 10:1 3 AM CDT Impressions 03/23/2018 2:26 PM CDT IMPRESSION: ?? 1. ??No CT evidence of pulmonary emboli. 2. ??Mild scattered minimal infiltrate versus small airways disease. 3. ??No focal consolidation. The examination was performed with the adjustment of mA according to the patient size and/or the use of Iterative Reconstruction Technique. DICTATION LOCATION: Location 1 - [facility] 03/23/2018 2:[address] ANGIOGRAPHY OF THE CHEST WITHOUT AND WITH INTRAVENOUS CONTRAST AND CT RECONSTRUCTIONS DATE: 03/23/2018 10:12 AM HISTORY: Chest pain, normal EKG; Pulmonary embolism suspected, . ?? COMPARISON: 03/17/2018 TECHNIQUE: Spiral volumetric acquisition of the chest was performed following intravenous contrast. Initially noncontrast images were obtained for localization and bolus tracking. Postprocessing 3D MIP (maximum intensity projection) reconstructions were performed. CONTRAST: IOPAMIDOL 61 % INTRAVENOUS SOLUTION ??Given:64 mL FINDINGS: Mediastinal windows demonstrate no intraluminal filling defects within the pulmonary arteries to suggest pulmonary emboli. The thoracic aorta is normal in caliber, without evidence of dissection. No mediastinal, hilar, or axillary adenopathy is seen. Mild residual thymic tissue is noted. No pericardial or pleural effusions are seen. Lung parenchymal windows demonstrate mild patchy groundglass opacities throughout the lungs. This may be related to minimal infiltrate or small airways disease. No focal consolidation is seen. No pneumothorax is evident. The extreme lung apices and lung bases were excluded from the images to limit radiation dose. Procedure Note Tracey Agustin MD - 03/23/2018 CT ANGIOGRAPHY OF THE CHEST WITHOUT AND WITH INTRAVENOUS CONTRAST AND CT RECONSTRUCTIONS DATE: 03/23/2018 10:12 AM HISTORY: Chest pain, normal EKG; Pulmonary embolism suspected, . COMPARISON: 03/17/2018 TECHNIQUE: Spiral volumetric acquisition of the chest was performed following intravenous contrast. Initially noncontrast images were obtained for localization and bolus tracking. Postprocessing 3D MIP (maximum intensity projection) reconstructions were performed. CONTRAST: IOPAMIDOL 61 % INTRAVENOUS SOLUTION Given:64 mL FINDINGS: Mediastinal windows demonstrate no intraluminal filling defects within the pulmonary arteries to suggest pulmonary emboli. The thoracic aorta is normal in caliber, without evidence of dissection. No mediastinal, hilar, or axillary adenopathy is seen. Mild residual thymic tissue is noted. No pericardial or pleural effusions are seen. Lung parenchymal windows demonstrate mild patchy groundglass opacities throughout the lungs. This may be related to minimal infiltrate or small airways disease. No focal consolidation is seen. No pneumothorax is evident. The extreme lung apices and lung bases were excluded from the images to limit radiation dose. IMPRESSION: 1. No CT evidence of pulmonary emboli. 2. Mild scattered minimal infiltrate versus small airways disease. 3. No focal consolidation. The examination was performed with the adjustment of mA according to the patient size and/or the use of Iterative Reconstruction Technique. DICTATION LOCATION: Location 1 - [facility] Keo Julien MD CT ORDERABLES * (ABNORMAL) C-REACTIVE PROTEIN (03/23/2018 4:11 AM CDT) Pathologist [facility] CRP 12.5(H) <5.0 mg/L 03/23/2018 4:50 PM CDT [facility] Blood Venipuncture / Unknown 03/23/2018 4:11 AM CDT 03/23/2018 4:16 AM CDT Rajendra Virgen MD CHEMISTRY ORDERABLES Performing Organization Address City/[facility]/ZIP Co de Phone Number [facility]# [id number] [address] [place] [address] * TROPONIN 6 HR, 5TH GEN (03/23/2018 4:11 AM CDT) Pathologist [facility] TROPONIN T, 6 HR 5TH GEN <6 <=10 ng/L 03/23/2018 4:49 AM CDT [facility] Blood Venipuncture / Unknown 03/23/2018 4:11 AM CDT 03/23/2018 4:16 AM CDT Narrative [facility] - 03/23/2018 4:49 AM CDT Troponin Undetectable Delta cannot be calculated when any of the troponin values are outside of the reportable range of the assay. Keo Julien MD CHEMISTRY ORDERABLES Performing Organization Address [facility]/ZIP Co de Phone Number [facility]# [id number] [address] [place] [address] * LIPASE (03/23/2018 12:31 AM CDT) LIPASE 58 13 - 60 U/L 03/23/2018 3:33 AM CDT [facility] Blood Venipuncture / Unknown 03/23/2018 12:31 AM CDT 03/23/2018 12:38 AM CDT Keo Julien MD CHEMISTRY ORDERABLES Performing Organization Address City/[facility]/ZIP Co de Phone Number [facility] CLIA# [id number] [address] [place] [address] * AMYLASE (03/23/2018 12:31 AM CDT) AMYLASE 47 28 - 100 U/L 03/23/2018 3:33 AM CDT [facility] Blood Venipuncture / Unknown 03/23/2018 12:31 AM CDT 03/23/2018 12:38 AM CDT Keo Julien MD CHEMISTRY ORDERABLES Performing Organization Address [facility] Co de Phone Number [facility] [employer] [facility] CLIA# [id number] [address] [place] [address] * TROPONIN 2 HR, 5TH GEN (03/23/2018 12:31 AM CDT) Pathologist [facility] TROPONIN T, 2 HR 5TH GEN <6 <=10 ng/L 03/23/2018 1:15 AM CDT [facility] [employer] [facility] Blood Venipuncture / Unknown 03/23/2018 12:31 AM CDT 03/23/2018 12:38 AM CDT Narrative [facility] - 03/23/2018 1:15 AM CDT Troponin Undetectable Delta cannot be calculated when any of the troponin values are outside of the reportable range of the assay. Karissa Rust MD CHEMISTRY ORDERAB LES Performing Organization Address City/[facility]/ZIP Co de Phone Number [facility] CLIA# [id number] [address] [place] [address] * EKG 12-LEAD (03/22/2018 10:26 PM CDT) 03/22/2018 10:2 6 PM CDT Narrative INTERFACE SYSTEM - 03/24/2018 11:41 AM CDT ? Stationary ECG Study ? [facility] ? Test Date: ?03/22/2018 10:26 PM Pat Name: ? VERA VITALE ?Department: ?? 41 ?Room: ? 7163 Gender: ? F ?Government Minister: ?? cowes1 : ?1985 ? Requested By: ?? Order Number: [id number] ?Reading MD: ?? Maynor Cabral ? Measurements Intervals ?[place] ? Rate: ? 72 ? P: ?43 ME: ? 140 ?QRS: ?40 QRSD: ? 88 ? T: ?8 QT: ? 388 ? QTc: ?425 ? Interpretive Statements ? Sinus rhythm Electronically Signed On 03-24-2018 11:41:10 CDT by Maynor Cabral Procedure Note Maynor Cabral MD - 10/19/2021 Stationary ECG Study [facility] Test Date: 03/22/2018 10:26 PM Pat Name: VERA VITALE Department: 41 Room: [facility] Gender: F Government Minister: lizbeth : 1985 Requested By: Order Number: [id number] Reading : Maynor Cabral Measurements Intervals [place] Rate: 72 P: 43 ME: 140 QRS: 40 QRSD: 88 T: 8 QT: 388 QTc: 425 Interpretive Statements Sinus rhythm Electronically Signed On 03-24-2018 11:41:10 CDT by Maynor Cabral Karissa Rust MD ECG ORDERABLES INTERFACE SYSTEM Refer to clinic/hospital department * TROPONIN BASELINE, 5TH GEN (03/22/2018 10:23 PM CDT) TROPONIN T, BASELINE 5TH GEN <6 <=10 ng/L 03/22/2018 10:58 PM CDT [facility] Blood Venipuncture / Unknown 03/22/2018 10:23 PM CDT 03/22/2018 10:25 PM CDT Narrative [facility] - 03/22/2018 10:58 PM CDT Troponin Undetectable Karissa Rust MD CHEMISTRY ORDERAB LES [facility] [id number] [address] [place] [address] * BRAIN NATRIURETIC PEPTIDE, BNP OR PROBNP (03/22/2018 10:23 PM CDT) PROBNP, N TERMINAL <50 <124 pg/mL 2017 10:57 PM CDT [facility] Comment: Reference values for screening purposes based on rotary operator's recommendation: Patients less than 75 years: <125 pg/mL Patients 75 years and older: <450 pg/mL Reference values for determination of acute congestive heart failure in dyspneic patients based on PRIDE study (Am J Cardiol 2005;95:948): Patients less than 50 years: <450 pg/mL (Negative predictive value= 99%) Patients 50 years and older: <900 pg/mL (Negative predictive value= 92%) Rule out cutpoint, all ages: <300 pg/mL (Negative predictive value= 99%) Blood Venipuncture / Unknown 03/22/2018 10:23 PM CDT 03/22/2018 10:25 PM CDT Karissa Rust MD CHEMISTRY ORDERAB LES [facility]# [id number] [address] [place] [address] * (ABNORMAL) COMPREHENSIVE METABOLIC PANEL (03/22/2018 10:23 PM CDT) SODIUM 138 136 - 145 mmol/L 03/22/2018 10:57 PM [facility] POTASSIUM 3.2(L) 3.5 - 5.0 mmol/L 03/22/2018 10:57 PM [facility] CHLORIDE 100 98 - 107 mmol/L 03/22/2018 10:57 PM [facility] CO2 25 22 - 29 mmol/L 03/22/2018 10:57 PM [facility] CALCIUM 10.0 8.6 - 10.2 mg/dL 03/22/2018 10:57 PM [facility] BUN 6 6 - 20 mg/dL 03/22/2018 10:57 PM [facility] CREATININE 0.56 0.51 - 0.95 mg/dL 03/22/2018 10:57 PM [facility] GLUCOSE 89 74 - 99 mg/dL 03/22/2018 10:57 PM [facility] TOTAL PROTEIN 6.9 6.7 - 8.6 g/dL 03/22/2018 10:57 PM [facility] ALBUMIN 3.8 3.5 - 5.2 g/dL 03/22/2018 10:57 PM [facility] BILIRUBIN TOTAL <0.2(L) 0.3 - 1.2 mg/dL 03/22/2018 10:57 PM [facility] ALKALINE PHOSPHATASE 137(H) 35 - 104 U/L 03/22/2018 10:57 PM [facility] AST 17 <33 U/L 03/22/2018 10:57 PM [facility] ALT 18 <34 U/L 03/22/2018 10:57 PM [facility] GFR >60 >=60 mL/min/1.7 3 sq meter 03/22/2018 10:57 PM [facility] Comment: eGFR has not been validated for use in the elderly (> 70 years of age), women, patients with serious co-morbid conditions, or persons with extremes of body size or muscle mass and should also be interpreted with caution in patients with acute kidney failure, dialysis dependent patients, patients reporting exceptional dietary intake (e.g. vegetarian diet, high protein diets, creatine supplementation), and patients with severe liver disease. Based on National Kidney Disease Education Program If patient is , please refer to the GFR result. GFR, >60 >=60 mL/min/1.7 3 sq meter 03/22/2018 10:57 PM CDT [facility] SERVICES [facility] ANION GAP 13 8 - 16 mmol/L 03/22/2018 10:57 PM CDT [facility] Blood Venipuncture / Unknown 03/22/2018 10:23 PM CDT 03/22/2018 10:25 PM CDT [facility] - 03/22/2018 10:57 PM CDT Samples containing indocyanine green cause interferences on Total and/or Direct Bilirubin and must not be measured. Karissa Rust MD CHEMISTRY ORDERAB LES [facility] SERVICES [facility]# [id number] [address] [facility] [place] [address] * (ABNORMAL) CBC WITH DIFFERENTIAL (03/22/2018 10:23 PM CDT) WBC 7.7 4.0 - 9.8 K/uL 03/22/2018 10:33 PM CDT [facility] SERVICES [facility] RBC 4.32 3.90 - 4.90 M/uL 03/22/2018 10:33 PM CDT [facility] LABORATORY SERVICES - [facility] HEMOGLOBIN 12.6 11.8 - 14.8 g/dL 03/22/2018 10:33 PM CDT [facility] HEMATOCRIT 37.1 35.5 - 44.0 % 03/22/2018 10:33 PM CDT [facility] SERVICES [facility] MCV 85.9 82.0 - 99.0 fL 03/22/2018 10:33 PM CDT [facility] SERVICES [facility] MCH 29.2 27.2 - 32.6 pg 03/22/2018 10:33 PM CDT [facility] LABORATORY SERVICES - [facility] MCHC 34.0 31.5 - 35.5 g/dL 03/22/2018 10:33 PM CDT [employer] [facility] - [facility] RDW 14.0 11.5 - 14.5 % 03/22/2018 10:33 PM CDT [employer] [facility] - [facility] RDW-STDEV 44.1 37.1 - 48.7 fL 03/22/2018 10:33 PM CDT [employer] - [facility] PLATELETS 258 140 - 350 K/uL 03/22/2018 10:33 PM CDT [employer] - [facility] MPV 8.7(L) 9.3 - 12.4 fL 03/22/2018 10:33 PM CDT [employer] [facility] - [facility] NEUTROPHILS 67 % 03/22/2018 10:33 PM CDT [employer] LYMPHOCYTES 25 % 03/22/2018 10:33 PM CDT [employer] [facility] MONOCYTES 6 % 03/22/2018 10:33 PM CDT [employer] [facility] EOSINOPHILS 1 % 03/22/2018 10:33 PM CDT [facility] [facility] BASOPHILS 0 % 03/22/2018 10:33 PM CDT [employer] [facility] - [facility] IMMATURE GRANULOCYTES 0 % 03/22/2018 10:33 PM CDT [employer] SERVICES - . [facility] NEUTROPHIL ABSOLUTE 5.19 1.90 - 7.00 K/uL 03/22/2018 10:33 PM CDT [employer] [facility] SERVICES - . [facility] LYMPHOCYTE ABSOLUTE 1.93 0.70 - 4.50 K/uL 03/22/2018 10:33 PM CDT [employer] [facility] - [facility] MONOCYTE ABSOLUTE 0.48 0.10 - 1.30 K/uL 03/22/2018 10:33 PM CDT [employer] [facility] - [facility] EOSINOPHIL ABSOLUTE 0.05 0.00 - 0.70 K/uL 03/22/2018 10:33 PM CDT [employer] [facility] - [facility] BASOPHILS ABSOLUTE 0.02 0.00 - 0.20 K/uL 03/22/2018 10:33 PM CDT [employer] [facility] SERVICES - . [facility] IMMATURE GRANULOCYTES ABSOLUTE 0.02 0.00 - 0.03 K/uL 03/22/2018 10:33 PM CDT [employer] SERVICES - [facility] Blood Venipuncture / Unknown 03/22/2018 10:23 PM CDT 03/22/2018 10:26 PM CDT Karissa Rust MD HEMATOLOGY ORDERA MATT [facility] LABORATORY SERVICES [facility]# [id number] [address] [place] [address] documented in this encounter Visit Diagnoses Diagnosis Dyspnea on exertion- Primary Other dyspnea and respiratory abnormality Dyspnea on exertion Other dyspnea and respiratory abnormality Chest pain, unspecified type SOB (shortness of breath) Shortness of breath Chest pain Chest pain, unspecified documented in this encounter Administered Medications Inactive Administered Medications - up to 3 most recent administrations Medication Order MAR Action Action Date Dose Rate Site acetaminophen (TYLENOL) tablet 650 mg 650 mg, Oral, EVERY 6 HOURS PRN, Starting on 03/23/18 at 0133, Until 03/24/18 at 1808, Pain, Mild / Temperature, Temperature greater than 100.3 or pain with score less than 4, Routine Given 03/24/2018 3:23 PM CDT 650 mg Given 03/23/2018 7:07 PM CDT 650 mg docusate sodium (COLACE) capsule 100 mg 100 mg, Oral, TWO TIMES DAILY, First dose on 03/23/18 at 0145, Until Discontinued, Routine doxylamine (UNISOM) tablet 25 mg 25 mg, Oral, DAILY AT BEDTIME, First dose on 03/23/18 at 2100, Until Discontinued, Routine Given 03/23/2018 10:18 PM CDT 25 mg famotidine (PEPCID) tablet 20 mg 20 mg, Oral, TWO TIMES DAILY, First dose on 03/23/18 at 0900, Until Discontinued, Routine Given 03/24/2018 8:40 AM CDT 20 mg Given 03/23/2018 10:17 PM CDT 20 mg Given 03/23/2018 11:21 AM CDT 20 mg famotidine PF (PEPCID) 20 mg/2 mL injection 20 mg 20 mg, IV, TWO TIMES DAILY, First dose on 03/23/18 at 0900, Until Discontinued, Routine iopamidol (ISOVUE-300) 61 % injection 80 mL 80 mL, IV, INTRA-PROCEDURE ONCE, 1 dose, Starting on 03/23/18 at 0916, Until 03/23/18 at 1013, Routine Contrast Given 03/23/2018 10:13 AM CDT 64 mL ketorolac (TORADOL) injection 30 mg 30 mg, IV, ONE TIME ONLY, 1 dose, On 03/23/18 at 1145, Routine Given 03/23/2018 12:10 PM CDT 30 mg metFORMIN (GLUCOPHAGE XR) SR 24 hour tablet 500 mg 500 mg, Oral, TWO TIMES DAILY WITH MEALS, First dose on 03/23/18 at 0800, Until Discontinued Given 03/24/2018 8:40 AM CDT 500 mg Given 03/23/2018 5:45 PM CDT 500 mg Given 03/23/2018 9:56 AM CDT 500 mg METFORMIN CONSULT TO PHARMACY Special Instructions to Pharmacy: 1. Discontinue the current order for metformin. Contact physician for combination metformin products. 2. Evaluate GFR and SCr with daily labs starting 48 hours after radiologic studies involving iodinated contrast materials. 3. Restart metformin per protocol at 48 hours with a cosign message routed back to the metformin ordering physician. 4. If after 96 hours the patient has not met criteria to reinitiate therapy, contact the ordering prescriber., Routine, Starting on 03/23/18 at 0916 metoclopramide HCl (REGLAN) tablet 10 mg 10 mg, Oral, TWO TIMES DAILY, First dose on 03/23/18 at 0215, Until Discontinued, Routine Given 03/23/2018 10:17 PM CDT 10 mg Given 03/23/2018 11:21 AM CDT 10 mg Given 03/23/2018 3:24 AM CDT 10 mg ondansetron (ZOFRAN ODT) tablet 4 mg 4 mg, Sublingual, EVERY 6 HOURS, First dose on 03/23/18 at 0215, Until Discontinued, Routine Given 03/24/2018 12:08 PM CDT 4 mg Given 03/24/2018 6:42 AM CDT 4 mg Given 03/24/2018 1:34 AM CDT 4 mg potassium CHLORIDE (KLOR-CON) 20 mEq powder 40 mEq 40 mEq, Oral, ONE TIME ONLY, 1 dose, On 03/23/18 at 0300, Routine Given 03/23/2018 11:38 AM CDT 40 mEq potassium chloride (KLOR-CON) SR tablet 40 mEq 40 mEq, Oral, TWO TIMES DAILY WITH MEALS, First dose on 03/23/18 at 1215, Until Discontinued, Routine Given 03/24/2018 8:40 AM CDT 40 mEq Given 03/23/2018 5:46 PM CDT 40 mEq vit-iron fumarate-fa (HECTOR ) 28 mg iron- 800 mcg per tablet 1 Tablet 1 Tablet, Oral, DAILY, First dose on 03/23/18 at 0900, Until Discontinued, Routine Given 03/24/2018 8:41 AM CDT 1 Tablet Given 03/23/2018 11:23 AM CDT 1 Tablet pyridoxine (vitamin B6) (VITAMIN B6) tablet 25 mg 25 mg, Oral, EVERY 12 HOURS (BlD), First dose on 03/23/18 at 0900, Until Discontinued, Routine Given 03/24/2018 8:41 AM CDT 25 mg Given 03/23/2018 10:19 PM CDT 25 mg Given 03/23/2018 12:12 PM CDT 25 mg sodium chloride 0.9% infusion IV, at 125 mL/hr, CONTINUOUS, Starting on 03/23/18 at 0015, Until 03/24/18 at 1808, Routine New Bag 03/23/2018 12:31 AM CDT 125 mL/hr 125 mL/hr Arm, Right documented in this encounter Active and Recently Administered Medications Times are shown in CDT. Scheduled Medication Order 03/22/2018 03/23/2018 03/24/2018 docusate sodium (COLACE) capsule 100 mg 100 mg, Oral, TWO TIMES DAILY, First dose on 03/23/18 at 0145, Until Discontinued, Routine 0145 (Refused - Provider: Elizabeth Kothari RN - Comment: refused x2)0900 (Refused - Provider: Brooklyn Rios, RN)2100 (Refused - Provider: Clarisa Mathis RN) 0900 (Refused - Provider: Oralia Montalvo RN) doxylamine (UNISOM) tablet 25 mg 25 mg, Oral, DAILY AT BEDTIME, First dose on 03/23/18 at 2100, Until Discontinued, Routine 2218 (Given - Provider: Clarisa Mathis, AJCK) famotidine (PEPCID) tablet 20 mg(Linked Group 1) 20 mg, Oral, TWO TIMES DAILY, First dose on 03/23/18 at 0900, Until Discontinued, Routine 1121 (Given - Provider: Brooklyn Rios RN)2217 (Given - Provider: Clarisa Mathis, RN) 0840 (Given - Provider: Oralia Montalvo, RN) famotidine PF (PEPCID) 20 mg/2 mL injection 20 mg(Linked Group 1) 20 mg, IV, TWO TIMES DAILY, First dose on 03/23/18 at 0900, Until Discontinued, Routine 1121 (See Alternative - Provider: Brooklyn Rios RN)2217 (See Alternative - Provider: Clarisa Mathis, JACK) 0840 (See Alternative - Provider: Oralia Montalvo, JACK) iopamidol (ISOVUE-300) 61 % injection 80 mL (COMPLETED) 80 mL, IV, INTRA-PROCEDURE ONCE, 1 dose, Starting on 03/23/18 at 0916, Until 03/23/18 at 1013, Routine 1013 (Contrast Given - Provider: Saima Ambrosio, RT - Comment: 16cc wasted) ketorolac (TORADOL) injection 30 mg (COMPLETED) 30 mg, IV, ONE TIME ONLY, 1 dose, On 03/23/18 at 1145, Routine 1210 (Given - Provider: Brooklyn Rios RN) metFORMIN (GLUCOPHAGE XR) SR 24 hour tablet 500 mg 500 mg, Oral, TWO TIMES DAILY WITH MEALS, First dose on 03/23/18 at 0800, Until Discontinued 0956 (Given - Provider: Brooklyn Rios RN - Comment: SCANNER IN ROOM)1745 (Given - Provider: Elaine Dye, NIKOS) 0840 (Given - Provider: Oralia Montalvo, JACK) METFORMIN CONSULT TO PHARMACY Special Instructions to Pharmacy: 1. Discontinue the current order for metformin. Contact physician for combination metformin products. 2. Evaluate GFR and SCr with daily labs starting 48 hours after radiologic studies involving iodinated contrast materials. 3. Restart metformin per protocol at 48 hours with a cosign message routed back to the metformin ordering physician. 4. If after 96 hours the patient has not met criteria to reinitiate therapy, contact the ordering prescriber., Routine, Starting on 03/23/18 at 0916 metoclopramide HCl (REGLAN) tablet 10 mg 10 mg, Oral, TWO TIMES DAILY, First dose on 03/23/18 at 0215, Until Discontinued, Routine 0324 (Given - Provider: Yanely Tavarez, RN)1121 (Given - Provider: Brooklyn Rios RN)2217 (Given - Provider: Clarisa Mathis, JACK) 0900 (Due) ondansetron (ZOFRAN ODT) tablet 4 mg 4 mg, Sublingual, EVERY 6 HOURS, First dose on 03/23/18 at 0215, Until Discontinued, Routine 0324 (Given - Provider: Yanely Tavarez RN)0600 (Not Given - Provider: Brooklyn Rios RN - Reason: Staggering dose times)1138 (Given - Provider: Brooklyn Rios RN)1747 (Given - Provider: NIKOS Caba) 0134 (Given - Provider: Clarisa Mathis, JACK)0642 (Given - Provider: Clarisa Mathis RN)1208 (Given - Provider: Renata Cook RN) potassium CHLORIDE (KLOR-CON) 20 mEq powder 40 mEq (COMPLETED) 40 mEq, Oral, ONE TIME ONLY, 1 dose, On 03/23/18 at 0300, Routine 1138 (Given - Provider: Brooklyn Rios RN) potassium chloride (KLOR-CON) SR tablet 40 mEq 40 mEq, Oral, TWO TIMES DAILY WITH MEALS, First dose on 03/23/18 at 1215, Until Discontinued, Routine 1215 (Not Given - Provider: Brooklyn Rios RN - Reason: Medication already given - Comment: powder given)1746 (Given - Provider: NIKOS Caba) 0840 (Given - Provider: Oralia Montalvo, JACK) vit-iron fumarate-fa (HECTOR ) 28 mg iron- 800 mcg per tablet 1 Tablet 1 Tablet, Oral, DAILY, First dose on 03/23/18 at 0900, Until Discontinued, Routine 1123 (Given - Provider: Brooklyn Rios RN) 0841 (Given - Provider: Oralia Montalvo, JACK) pyridoxine (vitamin B6) (VITAMIN B6) tablet 25 mg 25 mg, Oral, EVERY 12 HOURS (BlD), First dose on 03/23/18 at 0900, Until Discontinued, Routine 1212 (Given - Provider: Brooklyn Rios, RN)2219 (Given - Provider: Clarisa Mathis, RN) 0841 (Given - Provider: Oralia Montalvo, JACK) Continuous Medication Order 03/22/2018 03/23/2018 03/24/2018 sodium chloride 0.9% infusion IV, at 125 mL/hr, CONTINUOUS, Starting on 03/23/18 at 0015, Until 03/24/18 at 1808, Routine 0031 (New Bag - Provider: Marimar Pelaez, RN)0210 (Stopped - Provider: Elizabeth Kothari, JACK) PRN Medication Order 03/22/2018 03/23/2018 03/24/2018 acetaminophen (TYLENOL) tablet 650 mg 650 mg, Oral, EVERY 6 HOURS PRN, Starting on 03/23/18 at 0133, Until 03/24/18 at 1808, Pain, Mild / Temperature, Temperature greater than 100.3 or pain with score less than 4, Routine 1907 (Given - Provider: NIKOS Caba) 1523 (Given - Provider: Renata Cook, JACK) Linked Groups Order Group 1: famotidine (PEPCID) tablet 20 mgJump to med 20 mg, Oral, TWO TIMES DAILY, First dose on 03/23/18 at 0900, Until Discontinued, Routine Or famotidine PF (PEPCID) 20 mg/2 mL injection 20 mgJump to med 20 mg, IV, TWO TIMES DAILY, First dose on 03/23/18 at 0900, Until Discontinued, Routine documented in this encounter Care Teams Laboratory Associate Relationship Specialty Start Date End Date Rachid Colindres DO [address] [id number] PCP - General Geriatric Medicine 01/06/18 11/14/23 documented as of this encounter
--- OUTSIDE RECORDS SUMMARY | 2024-08-03 01:40 | XMS_ITS | Encounter Summary ---
Author Organization [facility] Address [address] [place] [address] Care Team Providers Care Sheet Manager Name Role Phone Rachid Colindres DO Primary Care Provider Reason for Visit * Reason Comments Dizziness Patient has a painfu l lump on side of neck under ear; Patient has had a lump for months the lump is now startig to become painful;Patient dizziness started a few weeks ago; Encounter Details Date Type Department Care Team (Late st Contact Info) Description 09/14/2020 12:00 PM LEAD MAN OVER ALL DIES IN PATTERN [employer]OP Office Visit [facility] [address] [place] [address] Roxy Aleman, RADHA [address] [id number] Right acute suppurative otitis media (Primary Dx); Lymph node enlargement; Vertigo Social History Tobacco Use Types Packs/Day Years Used Date Smoking Tobacco: Former Cigarettes 0.5 10 Smokeless Tobacco: Never Alcohol Use Standard Drinks/Week Comments No 0 (1 standard drink = 0.6 oz pur e alcohol) Sex and Gender Information Value Date Recorded Sex Assigned at Not on file Gender Identity Not on file Sexual Orientation Not on file COVID-19 Exposure Response Date Recorded In the last month, have you been in contact with someone who was confirmed or suspected to have Coronavirus / COVID-19? No / Unsure 09/13/2020 4:18 PM LEAD MAN OVER ALL DIES IN PATTERN SHOP documented as of this encounter Last Filed Vital Signs Vital Sign Reading Time Taken Comments Blood Pressure 134/84 09/14/2020 12:47 PM LEAD MAN OVER ALL DIES IN PATTERN SHOP Pulse 116 09/14/2020 12:47 PM LEAD MAN OVER ALL DIES IN PATTERN SHOP Temperature 37.2 ??C (99 ??F) 09/14/2020 12:47 PM LEAD MAN OVER ALL DIES IN PATTERN SHOP Respiratory Rate - - Oxygen Saturation 99% 09/14/2020 12:47 PM LEAD MAN OVER ALL DIES IN PATTERN SHOP Inhaled Oxygen Concentration - - Weight 112.5 kg (248 lb) 09/14/2020 12:47 PM LEAD MAN OVER ALL DIES IN PATTERN SHOP Height 167.6 cm (5' 6 ) 09/14/2020 12:47 PM LEAD MAN OVER ALL DIES IN PATTERN SHOP Body Mass Index 40.03 09/14/2020 12:47 PM LEAD MAN OVER ALL DIES IN PATTERN SHOP documented in this encounter Progress Notes * Roxy Aleman, LEAD SUSTAINABILITY SPECIALIST - 09/14/2020 12:00 PM CST Chief Complaint Patient presents with ??? Dizziness Patient has a painful lump on side of neck under ear; Patient has had a lump for months the lump isnow startig to become painful;Patient dizziness started a few weeks ago; Current Outpatient Medications Medication Sig Dispense Refill ??? amoxicillin (AMOXIL) 875 mg tablet Take 1 Tablet (875 mg) by mouth every 12 hours for 10 days. 20 Tablet 0 ??? azelastine (ASTELIN) 137 mcg/actuation nasal spray Administer 1 [address] in each nostril 2 times daily for 14 days. 30 mL 0 ??? zonisamide (ZONEGRAN) 25 mg Capsule Take 25 mg by mouth daily. ??? ondansetron (ZOFRAN ODT) 4 mg Tablet, Rapid Dissolve Place 1 Tablet (4 mg) under tongue every 6hours Dissolve tablet on top of tongue, then swallow with saliva.. 30 Tablet 2 ??? pantoprazole (PROTONIX) 40 mg Tablet, Delayed Release (E.C.) Take 1 Tablet (40 mg) by mouth daily. 60 Tablet 4 ??? doxylamine (UNISOM) 25 mg Tablet Take 1 Tablet (25 mg) by mouth daily at bedtime. 60 Tablet 4 ??? pyridoxine, vitamin B6, (VITAMIN B6) 25 mg Tablet Take 1 Tablet (25 mg) by mouth every 12 hours. 60 Tablet 4 ??? buspirone HCl (BUSPIRONE ORAL) Take by mouth. ??? vortioxetine hydrobromide (TRINTELLIX ORAL) Take by mouth. ??? vit-iron fumarate-fa (HECTOR ) 28 mg iron- 800 mcg Tablet Take 1 Tablet by mouth . ??? L-methylfolate (L-METHYLFOLATE) 15 mg Tablet Take 15 mg by mouth . ??? metoclopramide HCl (REGLAN) 10 mg tablet Take 10 mg by mouth 2 times daily. ??? albuterol HFA 90 mcg inhaler Take 1 Puff by inhalation 2 times daily. ??? METFORMIN HCL (METFORMIN ORAL) Take 500 mg by mouth 2 times daily . No current facility-administered medications for this visit. Allergies Allergen Reactions ??? Adhesive Other (See Comments) Skin irritation ??? Other Drug [Unclassified Drug] Other (See Comments) control pills cause vaginal bleeding Past Medical History: Diagnosis Date ??? Anxiety Zoloft ??? Bipolar affective disorder ??? Depression bipolar ??? Herniated cervical disc ??? High cholesterol ??? HTN (hypertension) ??? Hyperemesis gravidarum ??? Migraines ??? MRSA (methicillin resistant Staphylococcus aureus) 08/2009 cysts on leg, never cultured-told it was staph and was given medication ??? Nutritional anemia, unspecified ??? PCOS (polycystic ovarian syndrome) ??? Trichimoniasis 2005 Past Surgical History: Procedure Laterality Date ??? HCHG DILITATION AND CURETTAGE 01/14/2014 ??? HX BRAIN SURGERY N/A 2016 ??? HX CHOLECYSTECTOMY 02/2010 ??? HX CRANIOTOMY 2016 ??? HX DILATION AND CURETTAGE 01/2014 per fertility MD ??? HX EAR SURGERY ??? HX LEFT OOPHORECTOMY ??? HX LYMPH NODE DISSECTION 10/2014 armpit ??? LAP CHOLECYSTECTOMY ??? HI DELIVERY ONLY 11/21/2010 SECTION performed by KEO JULIEN at [facility] L[facility]D ??? HI DELIVERY ONLY N/A 09/13/2016 SECTION performed by Keo Julien MD at [facility] L&D ??? HI LAP,RMV ADNEXAL STRUCTURE N/A 08/06/2015 LEFT SALPINGECTOMY LAPAROSCOPIC FOR ECTOPIC performed by Ayde Judge MD at [facility] OR [facility] ??? PT DENIES RELEVANT SURGICAL HISTORY Family History Problem Relation Name Age of Onset ??? Diabetes Father ??? Thyroid Disease Father ??? Hypertension Mother ??? Diabetes Brother Social History Tobacco Use ??? Smoking status: Former Smoker Packs/day: 0.50 Years: 10.00 Pack years: 5.00 Types: Cigarettes ??? Smokeless tobacco: Never Used Substance Use Topics ??? Alcohol use: No SUBJECTIVE: Vera Vitale is a 35 y.o. female who complains of dizziness that started weeks ago. It is described as intermittent with positional changes. The problem is intermittent, lasting seconds. There is no current dizziness. The problem is associated with head movement, sitting up and standing up. There has been no recent head injury in the past month. The patient is able to walk without assistance. ROS: Constitutional: Negative for fever and chills. HENT: Negative for hearing loss, congestion, sore throat and tinnitus. Eyes: Negative for blurred vision and double vision. Neck: Denies neck pain, recent trauma. Respiratory: Negative for cough and shortness of breath. Cardiovascular: Negative for chest pain. Gastrointestinal: Negative for abdominal pain, nausea, vomiting and diarrhea. Neurological: Negative for speech change, focal weakness, loss of consciousness and headaches. No dysarthria, dysphagia, dysmetria. Psychiatric/Behavioral: Negative for confusion. OBJECTIVE: BP 134/84 (BP Location: Right arm, Patient Position (BP): Sitting, BP Cuff Size: Adult) Pulse (!)116 Temp 99 ??F (37.2 ??C) (Oral) Ht 5' 6 (1.676 m) Wt 112.5 kg (248 lb) SpO2 99% No BMI 40.03 kg/m?? Patient is conscious, alert and oriented x 3, in no acute distress. Speech normal. Gait normal. Able to walk without assistance. HENT: Normal throat. Mild congestion of nose. Right ear with bulging and erythematous, cream colored fluid. Left ear wnl. Eyes: Pupils are equal, round, and reactive to light. No nystagmus rest or gaze. No multidirectional nystagmus. Neck: Normal range of motion, no pain. Neck supple. No thyromegaly present. Cardiovascular: Normal rate, regular rhythm and normal heart sounds. Chest: Breath sounds normal. Neurological: No cranial nerve deficit. No dysmetria. Nl motor and sensory exam of extremities. NegRomberg. Normal gait. ASSESSMENT: ICD-10-CM ICD-9-CM 1. Right acute suppurative otitis media H66.001 382.00 2. Lymph node enlargement R59.9 785.6 3. Vertigo R42 780.4 PLAN: Orders Placed This Encounter ??? amoxicillin (AMOXIL) 875 mg tablet ??? azelastine (ASTELIN) 137 mcg/actuation nasal spray . Ok to use a low heat heating pad or warm compress for ear pain. You may use an NSAID like Ibuprofen,unless you are on a blood thinner, allergic or other contraindications exist. If contraindicated, use Tylenol only or other pain medications that were prescribed. For children: use ibuprofen and/or Tylenol dosed for your child's weight (follow package directions). Please have ear rechecked by PCP in 7-14 days. If dizziness persists/worsens or accompanied by fever, chills, nausea, vomiting, sweating, vision changes, weakness-to ER. An After Visit Summary was printed and given to the patient. MAN OVER ALL DIES IN PATTERN SHOP documented in this encounter Miscellaneous Notes * Patient Instructions - Roxy Aleman FNP - 09/14/2020 12:00 PM LEAD MAN OVER ALL DIES IN PATTERN SHOP Images from the original note were not included. Thank you again for choosing [facility]. It was my pleasure treating you today. I truly hope you feel better soon! RADHA [facility] Location [phone] If you do not have a primary doctor, [facility] offers a free referral service by calling [phone] or toll free . This information can also be accessed on the web at [email or web address].net If a test or physician referral was ordered for you today, you can schedule these by calling Central Testing Scheduling (CTS),[phone], or Central Referral Scheduling (CRS), during normal work hours. Inform them you had a test or referral ordered during your visit at the [facility]. Ok to use a low heat heating pad or warm compress for ear pain. You may use an NSAID like Ibuprofen,unless you are on a blood thinner, allergic or other contraindications exist. If contraindicated, use Tylenol only or other pain medications that were prescribed. For children: use ibuprofen and/or Tylenol dosed for your child's weight (follow package directions). Please have ear rechecked by PCP in 7-14 days. If dizziness persists/worsens or accompanied by fever, chills, nausea, vomiting, sweating, vision changes, weakness-to ER. Dizziness: Care Instructions Your Care Instructions Dizziness is the feeling of unsteadiness or fuzziness in your head. It is different than having vertigo, which is a feeling that the room is spinning or that you are moving or falling. It is also different from lightheadedness, which is the feeling that you are about to faint. It can be hard to know what causes dizziness. Some people feel dizzy when they have migraine headaches. Sometimes bouts of flu can make you feel dizzy. Some medical conditions, such as heart problemsor high blood pressure, can make you feel dizzy. Many medicines can cause dizziness, including medicines for high blood pressure, pain, or anxiety. If a medicine causes your symptoms, your doctor may recommend that you stop or change the medicine.If it is a problem with your heart, you may need medicine to help your heart work better. If there is no clear reason for your symptoms, your doctor may suggest watching and waiting for a while to see if the dizziness goes away on its own. Follow-up care is a craven part of your treatment and safety. Be sure to make and go to all appointments, and call your doctor if you are having problems. It's also a good idea to know your test resultsand keep a list of the medicines you take. How can you care for yourself at home? ?? If your doctor recommends or prescribes medicine, take it exactly as directed. Call your doctor if you think you are having a problem with your medicine. ?? Do not drive while you feel dizzy. ?? Try to prevent falls. Steps you can take include: ? Using nonskid mats, adding grab bars near the tub, and using night-lights. ? Clearing your home so that walkways are free of anything you might trip on. ? Letting family and friends know that you have been feeling dizzy. This will help them know how tohelp you. When should you call for help? [id number] anytime you think you may need emergency care. For example, call if: ?? You passed out (lost consciousness). ?? You have dizziness along with symptoms of a heart attack. These may include: ? Chest pain or pressure, or a strange feeling in the chest. ? Sweating. ? Shortness of breath. ? Nausea or vomiting. ? Pain, pressure, or a strange feeling in the back, neck, jaw, or upper belly or in one or both shoulders or arms. ? Lightheadedness or sudden weakness. ? A fast or irregular heartbeat. ?? You have symptoms of a stroke. These may include: ? Sudden numbness, tingling, weakness, or loss of movement in your face, arm, or leg, especially ononly one side of your body. ? Sudden vision changes. ? Sudden trouble speaking. ? Sudden confusion or trouble understanding simple statements. ? Sudden problems with walking or balance. ? A sudden, severe headache that is different from past headaches. Call your doctor now or seek immediate medical care if: ?? You feel dizzy and have a fever, headache, or ringing in your ears. ?? You have new or increased nausea and vomiting. ?? Your dizziness does not go away or comes back. Watch closely for changes in your health, and be sure to contact your doctor if: ?? You do not get better as expected. Where can you learn more? Go to https://www.[employer].net/patiented Enter Q823 in the search box to learn more about Dizziness: Care Instructions. Current as of: February 05, 2019?Content Version: 12.5 ?? [employer]. Care instructions adapted under license by your healthcare professional. If you have questions about a medical condition or this instruction, always ask your healthcare professional. These instructions may not represent the values of this healthcare organization. [employer] disclaims any warranty or liability for your use of this information. Ear Infection (Otitis Media): Care Instructions Your Care Instructions An ear infection may start with a cold and affect the middle ear (otitis media). It can hurt a lot.Most ear infections clear up on their own in a couple of days. Most often you will not need antibiotics. This is because many ear infections are caused by a virus. Antibiotics don't work against a virus. Regular doses of pain medicines are the best way to reduce your fever and help you feel better. Follow-up care is a craven part of your treatment and safety. Be sure to make and go to all appointments, and call your doctor if you are having problems. It's also a good idea to know your test resultsand keep a list of the medicines you take. How can you care for yourself at home? ?? Take pain medicines exactly as directed. ? If the doctor gave you a prescription medicine for pain, take it as prescribed. ? If you are not taking a prescription pain medicine, take an dxbi-mua-ehdmmmx medicine, such as acetaminophen (Tylenol), ibuprofen (Advil, Motrin), or naproxen (Aleve). Read and follow all instructions on the label. ? Do not take two or more pain medicines at the same time unless the doctor told you to. Many pain medicines have acetaminophen, which is Tylenol. Too much acetaminophen (Tylenol) can be harmful. ?? Plan to take a full dose of pain reliever before bedtime. Getting enough sleep will help you getbetter. ?? Try a warm, moist washcloth on the ear. It may help relieve pain. ?? If your doctor prescribed antibiotics, take them as directed. Do not stop taking them just because you feel better. You need to take the full course of antibiotics. When should you call for help? Call your doctor now or seek immediate medical care if: ?? You have new or increasing ear pain. ?? You have new or increasing pus or blood draining from your ear. ?? You have a fever with a stiff neck or a severe headache. Watch closely for changes in your health, and be sure to contact your doctor if: ?? You have new or worse symptoms. ?? You are not getting better after taking an antibiotic for 2 days. Where can you learn more? Go to https://www.[employer].net/patiented Enter X558 in the search box to learn more about Ear Infection (Otitis Media): Care Instructions. Current as of: March 10, 2019?Content Version: 12.5 ?? [employer]. Care instructions adapted under license by your healthcare professional. If you have questions about a medical condition or this instruction, always ask your healthcare professional. These instructions may not represent the values of this healthcare organization. [employer] disclaims any warranty or liability for your use of this information. MAN OVER ALL DIES IN PATTERN SHOP documented in this encounter Plan of Treatment Upcoming Encounters Date Type Department Care Team (Late st Contact Info) Description 10/14/2024 11:00 AM LEAD MAN OVER ALL DIES IN PATTERN SHOP Office Visit [facility] [place] [address] [facility] [address] [phone] Ubaldo Cardenas MD [address] [place] [address] documented as of this encounter Visit Diagnoses Diagnosis Right acute suppurative otitis media- Primary Acute suppurative otitis media without spontaneous rupture of eardrum Lymph node enlargement Enlargement of lymph nodes Vertigo Dizziness and giddiness documented in this encounter Additional Health Concerns Infection Onset Date Last Indicated Resolved Time COVID-19 08/24/2020 08/24/2020 09/23/2020 1:16 AM LEAD MAN OVER ALL DIES IN PATTERN SHOP documented as of this encounter Care Teams Sheet Manager Relationship Specialty Start Date End Date Rachid Colindres DO [address] [phone] PCP - General Geriatric Medicine 01/06/18 11/14/23 documented as of this encounter
--- OUTSIDE RECORDS SUMMARY | 2024-08-03 01:40 | XMS_ITS | Encounter Summary ---
Author Organization [employer] Address [address] [place] [address] Care Team Providers Care Gear Roller Name Role Phone Rachid Colindres Primary Care Provider Reason for Visit * Reason Comments Chest Pain Pt arrives to ED farrah m 07 with c/o sudden onset Left sided chest pain that is made worse by inspiration. Pt states that this pain started at rest and feels like someone is sitting on her chest. Pt also has c/o chronic nausea that started when began. Pt is 23 weeks and is a . Encounter Details Date Type Department Care Team (Late st Contact Info) Description 03/17/2018 3:32 PM CDT - 03/17/2018 10:15 PM CDT Emergency [facility] Emergency Department [address] [place] [id number] Felicity Caceres MD NO ADDRESS ON FILE Left sided chest pain (Primary Dx); 23 weeks gestation of Discharge Disposition: Home or Self Care Social [...] Sign Reading Time Taken Comments Blood Pressure 130/74 03/17/2018 10:00 PM CDT Pulse 73 03/17/2018 9:00 PM CDT Temperature 36.7 ??C (98 ??F) 03/17/2018 3:38 PM CDT Respiratory Rate 15 03/17/2018 9:00 PM CDT Oxygen Saturation 95% 03/17/2018 10:00 PM CDT Inhaled Oxygen Concentration - - Weight 108.9 kg (240 lb) 03/17/2018 3:38 PM CDT Height 167.6 cm (5' 6 ) 03/17/2018 3:38 PM CDT Body Mass Index 38.74 03/17/2018 3:38 PM CDT documented in this encounter Discharge Instructions * Discharge Instructions* Felicity Caceres MD - 03/17/2018 9:54 PM CDT DO NOT TAKE TYLENOL WHILE TAKING THE NEW PRESCRIPTION PAIN MEDICINE. TAKE THIS MEDICINE WITH FOOD. IT MAY CAUSE CONSTIPATION. DO NOT DRIVE, DRINK ALCOHOL, OR OPERATE HEAVY EQUIPMENT WITHIN 4 HOURS OFTAKING THIS MEDICINE. * Attachments The following attachments cannot be sent through Care Everywhere. * Chest Pain ([place]) documented in this encounter Medications at Time [...] 02/04/2017 06/26/2018 documented as of this encounter ED Notes * Napoleon Kovacs RN - 03/17/2018 9:41 PM CDT Patient/family has been informed about benefits and any potential clinically significant side effects or other concerns regarding the administration of the drug they have just been given. Crackers offered. * Napoleon Kovacs RN - 03/17/2018 9:[address] Caceres at bedside * Napoleon Kovacs RN - 03/17/2018 9:03 PM CDT Patient resting in room comfortably. Patient denies any complaints at this time and she was updatedon plan of care. No acute distress noted. Patient self repositioned and/or staff assisted with repositioning at this time. Bed low, locked. Call light in reach. Her respirations are even and non labored. She speaks in full sentences without difficulty. Pt c/o worsening chest pain * Napoleon Kovacs RN - 03/17/2018 8:05 PM CDT Pt offered juice * Napoleon Kovacs RN - 03/17/2018 7:49 PM CDT Patient resting in room comfortably. Patient denies any complaints at this time and she was updatedon plan of care. No acute distress noted. Patient self repositioned and/or staff assisted with repositioning at this time. Bed low, locked. Call light in reach. Pt offered toileting * Napoleon Kovacs RN - 03/17/2018 7:26 PM CDT Pt back from CT * Napoleon Kovacs RN - 03/17/2018 7:05 PM CDT PT to CT * Napoleon Kovacs RN - 03/17/2018 7:02 PM CDT This RN at the bedside. Patient resting in room comfortably. Patient denies any complaints at this time and she was updatedon plan of care. No acute distress noted. Patient self repositioned and/or staff assisted with repositioning at this time. Bed low, locked. Call light in reach. * Napoleon Kovacs RN - 03/17/2018 6:[address] Caceres at the bedside at this time * Napoleon Kovacs RN - 03/17/2018 6:44 PM CDT Patient resting in room comfortably. Patient denies any complaints at this time and she was updatedon plan of care. No acute distress noted. Patient self repositioned and/or staff assisted with repositioning at this time. Pt states that pain is still unchanged. Pt is rubbing left side of chest. NAD noted Bed low, locked. Call light in reach. * Napoleon Kovacs RN - 03/17/2018 6:16 PM CDT Patient/family has been informed about benefits and any potential clinically significant side effects or other concerns regarding the administration of the drug they have just been given. * Napoleon Kovacs RN - 03/17/2018 5:[address] Caceres notified of pt request of Tylenol * Napoleon Kovacs RN - 03/17/2018 5:56 PM CDT Pt requesting Tylenol at this time. Patient placed on continuous pulse oximetry, cardiac monitoring, and intermittent blood pressures. Her respirations are even and non labored. She speaks in full sentences without difficulty. * Napoleon Kovacs RN - 03/17/2018 5:55 PM CDT Patient resting in room comfortably. Patient denies any complaints at this time and she was updatedon plan of care. No acute distress noted. Patient self repositioned and/or staff assisted with repositioning at this time. Bed low, locked. Call light in reach. * Napoleon Kovacs RN - 03/17/2018 5:40 PM CDT Pt back from VQ scan * Napoleon Kovacs RN - 03/17/2018 5:15 PM CDT Pt to VQ Scan * Napoleon Kovacs RN - 03/17/2018 4:30 PM CDT Patient resting in room comfortably. Patient denies any complaints at this time and she was updatedon plan of care by JACK Rascon. No acute distress noted. Patient self repositioned and/or staff assisted with repositioning at this time. Bed low, locked. Call light in reach. * Napoleon Kovacs RN - 03/17/2018 3:49 PM CDT Pt comes to the ED with c/o L sided chest pain that is exacerbated by inhalation. Pain radiates to the L arm and pt described pain as pressure or like someone is sitting on my chest . Pt also has c/o chronic nausea that started when began. ??Pt is 23 weeks and is a . Pt took Reglan and Zofran this AM for nausea without relief of Sx. EMS blood sugar was 78. heart rate obtained via doppler at a rate of 151 bpm. Patient placed on continuous pulse oximetry, cardiac monitoring, and intermittent blood pressures. NAD noted bed low locked call light in reach. * Eboni Montemayor RN - 03/17/2018 3:33 PM CDT Bed: 07 Expected date: 03/17/18 Expected time: 3:14 PM Means of arrival: Comments: Dirty- STL Medic 31. 32yof approx 23 weeks . CP/Nausea coming from . * Felicity Caceres MD - 03/17/2018 3:31 PM CDT Images from the original note were not included. Emergency Department Attending Physician Note History of Present Illness Primary Care Doctor: Rachid Colindres DO Documented Triage Chief Complaint: Chest Pain Provider was at the bedside at 4:00 PM Vera Vitale is a 32 y.o. female at 23 weeks gestation who presents with a complaint of left sided chest pain which began at 11 am today. Pt was at earlier today and then came to ED. Pt also c/o mild pain to her left arm, SOB, and nausea. Pt denies vomiting, stomach pain, contractions, cough, fever, vaginal bleeding, or vaginal discharge. Pt has felt the baby move. Examined labs from on 03/17/2018. They were normal with creatine 0.4, BUN 5, and UA was negative except for trace protein. Onset: gradual Severity: moderate Duration: 5 hours Frequency/Progression: worsening Quality: pressure Radiation: pain radiates to left arm Modifiers: none Associated symptoms: see above Patient information was obtained primarily from the patient. History/Exam limitations: None I reviewed prior records and noted a pertinent history of hyperlipidemia, hyperemesis gravidarum, pre-eclampsia, and cholestasis. Relevant Medical History Past Medical History: Past Medical History: Diagnosis Date ??? Anxiety Zoloft ??? Bipolar affective disorder ??? Depression bipolar ??? Herniated cervical disc ??? High cholesterol ??? Hyperemesis gravidarum ??? Migraines ??? MRSA (methicillin resistant Staphylococcus aureus) 08/2009 cysts on leg, never cultured-told it was staph and was given medication ??? PCOS (polycystic ovarian syndrome) ??? Trichimoniasis 2005 Past Surgical History: Past Surgical History: Procedure Laterality Date ??? HCHG DILITATION AND CURETTAGE 01/14/2014 ??? HX CHOLECYSTECTOMY 02/2010 ??? HX CRANIOTOMY 2016 ??? HX DILATION AND CURETTAGE 01/2014 per fertility MD ??? HX EAR SURGERY ??? HX LEFT OOPHORECTOMY ??? HX LYMPH NODE DISSECTION 10/2014 armpit ??? LAP CHOLECYSTECTOMY ??? VA DELIVERY ONLY 11/21/2010 SECTION performed by KEO JULIEN at [facility] L&D ??? VA DELIVERY ONLY N/A 09/13/2016 SECTION performed by Keo Julien MD at [facility] L&D ??? VA LAP,RMV ADNEXAL STRUCTURE N/A 08/06/2015 LEFT SALPINGECTOMY LAPAROSCOPIC FOR ECTOPIC performed by Ayde Judge MD at [facility] OR MAIN Home Medications: Discharge Medication List as of 03/17/2018 9:54 PM START taking these medications Details HYDROcodone-acetaminophen (NORCO) 5-325 mg tablet Take 1 Tablet by mouth every 4 hours as needed for Pain Do not drive or drink alcohol while taking this medication. This may cause constipation.. MaxDaily Amount: 6 Tablets, Disp-6 Tablet, R-0 CONTINUE these medications which have NOT CHANGED Details ondansetron (ZOFRAN ODT) 4 mg Tablet, Rapid Dissolve Place 1 Tablet (4 mg) under tongue every 6 hours Dissolve tablet on top of tongue, then swallow with saliva.., Disp-30 Tablet, R-2 promethazine (PHENERGAN) 25 mg Suppository Insert 1 Suppository (25 mg) by rectum every 6 hours as needed for Nausea/Emesis., Disp-10 Suppository, R-2 pantoprazole (PROTONIX) 40 mg Tablet, Delayed Release (E.C.) Take 1 Tablet (40 mg) by mouth daily.,Disp-60 Tablet, R-4 doxylamine (UNISOM) 25 mg Tablet Take 1 Tablet (25 mg) by mouth daily at bedtime., Disp-60 Tablet, R-4 pyridoxine, vitamin B6, (VITAMIN B6) 25 mg Tablet Take 1 Tablet (25 mg) by mouth every 12 hours., Disp-60 Tablet, R-4 buspirone HCl (BUSPIRONE ORAL) Take by mouth. progesterone micronized (PROMETRIUM) 200 mg Capsule Take by mouth daily. vortioxetine hydrobromide (TRINTELLIX ORAL) Take by mouth. xascyfjxmylyf-mwjdhxqz-yhtomaqtbd (FIORICET) 325-40-50 mg tablet Take 1 Tablet by mouth every 4 hours as needed for Migraine. escitalopram oxalate (LEXAPRO) 20 mg tablet Take 1 Tablet (20 mg) by mouth late in the day., Disp-30 Tablet, R-2 amitriptyline (ELAVIL) 10 mg tablet Take 1 Tablet (10 mg) by mouth daily at bedtime., Disp-30 Tablet, R-2 vit-iron fumarate-fa (HECTOR ) 28 mg iron- 800 mcg Tablet Take 1 Tablet by mouth . L-methylfolate (L-METHYLFOLATE) 15 mg Tablet Take 15 mg by mouth . metoclopramide HCl (REGLAN) 10 mg tablet Take 10 mg by mouth 2 times daily. albuterol HFA 90 mcg inhaler Take 1 Puff by inhalation 2 times daily. METFORMIN HCL (METFORMIN ORAL) Take 500 mg by mouth 2 times daily . Allergies: Adhesive and Other drug [unclassified drug] Social History: reports that she has quit smoking. Her smoking use included Cigarettes. She has a 5.00 pack-year smoking history. She has never used smokeless tobacco. She reports that she does not drink alcohol or use drugs. Family History: family history includes Diabetes in her brother and father; Hypertension in her mother; Thyroid Disease in her father. Review of Systems ?? A comprehensive review of systems was completed. All other systems negative except as marked. ?? See HPI for additional ROS Constitutional: No fever, no chills ENT: No rhinorrhea, no sore throat Eyes: No vision change, no photophobia Respiratory: No cough, no shortness of breath Cardiac: + left sided chest pain, no palpitations, no edema GI: No abdominal pain, + nausea, no vomiting, no diarrhea : No dysuria, no hematuria, no vaginal bleeding, no vaginal discharge, no contractions Musculoskeletal: No joint pain, no muscle aches, + pain to her left arm Skin: No rash, no wound Heme: No spontaneous bleeding, no bruising Neuro: No headache, no weakness, no numbness/tingling Psych: No hallucinations, no acute change in mood Physical Exam BP: 130/74 (03/17/18 2200), Pulse: 73 (03/17/182099), Resp: 15 (03/17/182099), Temp: 98 ??F (36.7??C) (03/17/181537), Temp src: Oral (03/17/181537) Constitutional: Alert, young female who is in mild discomfort HEENT: Normocephalic, atraumatic, PERRLA, EOMI, no throat erythema, mucous membranes moist Neck: No spine tenderness, supple Back: No spine tenderness, no CVA tenderness Chest Wall: No tenderness. No injury, or deformity Heart: RRR without murmur Lungs: Clear to auscultation. Equal bilaterally. Abdomen: Soft, nontender, no guarding, normal bowel sounds : Rectal exam deferred Extremities: No edema, no calf tenderness, distal pulses intact Pulses: 2+ radial = bilat Skin: No rash, no erythema Lymphatic: No lymphadenopathy noted Neuro: No facial droop, motor 5/5 for all extremities, sensation grossly intact to touch Psychiatric: +Depressed affect and mood Studies and Interpretation Pulse Oximetry Interpretation: Saturation: 95% Oxygen Delivery: Room Air Interpretation: No hypoxia at this time Rhythm Strip Interpretation (independent interpretation by Moiz Caceres MD): Normal Sinus Rhythm Ventricular Rate: 71 Initial Electrocardiogram (independent interpretation by Moiz Caceres MD): Normal sinus rhythm, ventricular rate (bpm) 68 No ectopy No acute ST elevation or depression Compared to old EKG dated 01/06/2018 unchanged Imaging (all imaging was independently reviewed by me): CTA CHEST W WO CONTRAST Radiologist Impression IMPRESSION: No large central pulmonary embolism. DICTATION LOCATION: Location - [facility] [place] LUNG VENT PERF Radiologist Impression IMPRESSION: 1. Low probability lung scan consisting of a matched large perfusion defects in both lower lobes. 2. Ventilation findings consistent with obstructive pulmonary disease, possibly small airways disease such as asthma given the patient's age. These findings were discussed with Dr. Caceres by Dr. Gerard at 6:52 PM on 03/17/2018. DICTATION LOCATION: Location [address] [place] [address] Lab: (Reviewed by me), Significant for: Results for orders placed or performed during the hospital encounter of 03/17/18 (from the past 24 hour(s)) EXTRA TUBE (BB PINK/LAV) Result Value Ref Range EXTRA TUBE (BB PINK/LAV) Order Complete Medical Decision Making and ED Course Summary: 32 y.o. female who presented with a complaint of left sided chest pain and left arm pain since 11 AM today. She is 23 weeks . Differential diagnosis: After reviewing triage note, vital signs, and my initial encounter/exam of the patient, I had considered at least at one time in the differential: acute coronary syndrome, DE, aortic dissection, pneumothorax, pulmonary embolism, pericarditis, GI etiology (such as GERD, esophagitis, etc), pneumonia, atypical/noncardiac chest pain, chest wall pain Plan: EKG, review labs and x ray from urgent care, and will obtain V/Q scan to rule out PE. --V/Q scan showed matched perfusion deficits in both lower lobes and possible obstructive pulmonarydiease. Discussed with radiologist and OB and proceeded with CTA of chest. CTA showed no large PE. There is patchy bilateral bibasilar ground glass appearance. Discussed with OB. Patient is stable for discharge. Will prescribe small quantity of hydrocodone for pain. Should follow up with OB this week. Updates 4:32 PM: Offered patient Tylenol for pain, she declined and did not want anything else since she is. 6:54 PM: Pt rechecked and updated on plan to do CTA of chest. 9:25 PM: Pt rechecked. Updated on CTA results and plan to discharge home. Agrees with plan, all questions and concerns have been addressed. ED provider and ED nurse verbally discussed patient plan of care. Case Discussed 5:59 PM: Spoke with radiologist regarding pt's V/Q scan. He needs to review x- ray done at urgent care. Will have tech download it to system. 6:46 PM: Discussed pt and radiologist findings with Dr. Julien, OB, who recomends doing CTA. 6:48 PM: Spoke with nuclear medicine radiologist, Dr. Gerard, regarding pt's chest X-ray and plan to order CT angio. 9:30 PM: OB updated on CTA results and agrees to discharge home with prescription for hydrocodone. Medications Given Medications Administered During the ED Stay from 03/17/2018 1531 to 03/18/2018 0039 Date/Time Order Dose Route Action 03/17/2018 1814 acetaminophen (TYLENOL) tablet 650 mg 650 mg Oral Given 03/17/2018 1915 iopamidol (ISOVUE-300) 61 % injection 80 mL 80 mL IV Contrast Given 03/17/2018 1939 sodium chloride 0.9% infusion 0 IV Stopped 03/17/2018 1915 sodium chloride 0.9% infusion 35 mL IV New Bag 03/17/2018 2140 HYDROcodone-acetaminophen (NORCO) 5-325 mg per tablet 1 Tablet 1 Tablet Oral Given Amount and/or Complexity of Data Reviewed --I reviewed the labs and/or radiology studies, vital signs, and nursing notes. I agree with the nursing notes except as noted in the body of this record. --Clinical lab tests: ordered and reviewed --Independent visualization of images, tracings, or specimens (including EKGs): yes --Previous electrocardiograms reviewed: Yes --Reviewed and summarized past medical records: yes --Discussed the patient with other providers: Yes Critical Care / Procedures No procedures done during this visit. No critical care time was provided for the patient. Disposition 9:25 PM: I updated the patient on findings, diagnosis, and plan for discharge. Any prescriptions given are listed below and they were instructed to follow up with the given provider. Pt agrees with the plan and is comfortable going home. The patient is clinically well; my impression is that, at this time, they are safe for discharge. I have spent time counseling the patient on their diagnosis, findings, results, and plan including strict return to the Emergency Dept instructions for this diagnosis and follow up as directed on the discharge instructions. Vitals at Discharge: BP 130/74 Pulse 73 Temp 98 ??F (36.7 ??C) (Oral) Resp 15 Ht 5' 6 (1.676 m) Wt 108.9 kg (240 lb) LMP 10/07/2017 SpO2 95% BMI 38.74 kg/m?? New Prescriptions: Discharge Medication List as of 03/17/2018 9:54 PM START taking these medications Details HYDROcodone-acetaminophen (NORCO) 5-325 mg tablet Take 1 Tablet by mouth every 4 hours as needed for Pain Do not drive or drink alcohol while taking this medication. This may cause constipation.. MaxDaily Amount: 6 Tablets, Disp-6 Tablet, R-0 CONTINUE these medications which have NOT CHANGED Details ondansetron (ZOFRAN ODT) 4 mg Tablet, Rapid Dissolve Place 1 Tablet (4 mg) under tongue every 6 hours Dissolve tablet on top of tongue, then swallow with saliva.., Disp-30 Tablet, R-2 promethazine (PHENERGAN) 25 mg Suppository Insert 1 Suppository (25 mg) by rectum every 6 hours as needed for Nausea/Emesis., Disp-10 Suppository, R-2 pantoprazole (PROTONIX) 40 mg Tablet, Delayed Release (E.C.) Take 1 Tablet (40 mg) by mouth daily.,Disp-60 Tablet, R-4 doxylamine (UNISOM) 25 mg Tablet Take 1 Tablet (25 mg) by mouth daily at bedtime., Disp-60 Tablet, R-4 pyridoxine, vitamin B6, (VITAMIN B6) 25 mg Tablet Take 1 Tablet (25 mg) by mouth every 12 hours., Disp-60 Tablet, R-4 buspirone HCl (BUSPIRONE ORAL) Take by mouth. progesterone micronized (PROMETRIUM) 200 mg Capsule Take by mouth daily. vortioxetine hydrobromide (TRINTELLIX ORAL) Take by mouth. ibrdmfaokegjx-mhapqing-vppmtrfbhh (FIORICET) 325-40-50 mg tablet Take 1 Tablet by mouth every 4 hours as needed for Migraine. escitalopram oxalate (LEXAPRO) 20 mg tablet Take 1 Tablet (20 mg) by mouth late in the day., Disp-30 Tablet, R-2 amitriptyline (ELAVIL) 10 mg tablet Take 1 Tablet (10 mg) by mouth daily at bedtime., Disp-30 Tablet, R-2 vit-iron fumarate-fa (HECTOR ) 28 mg iron- 800 mcg Tablet Take 1 Tablet by mouth . L-methylfolate (L-METHYLFOLATE) 15 mg Tablet Take 15 mg by mouth . metoclopramide HCl (REGLAN) 10 mg tablet Take 10 mg by mouth 2 times daily. albuterol HFA 90 mcg inhaler Take 1 Puff by inhalation 2 times daily. METFORMIN HCL (METFORMIN ORAL) Take 500 mg by mouth 2 times daily . Follow Up: Keo Julien MD [address] [place] [address] Schedule an appointment as soon as possible for a visit this week. Diagnosis: Encounter Diagnoses Code Name Primary? R07.9 Left sided chest pain Yes ??? Z3A.23 23 weeks gestation of Disposition: Discharged Note: This H+P was created with the aid of dictation software, thus there may be some word substitutions or errors. This note has been prepared by Louann Carroll and Sanket Camacho acting as a scribe for Dr. Felicity Caceres on 03/17/2018 at 10:22 PM. The scribe's documentation has been prepared under my direction and personally reviewed by me, Dr. Moiz Caceres, in its entirety on 03/18/18 at 12:39 AM. I confirm that the note above accurately reflectsall work, treatment, procedures, and medical decision making performed by me. documented in this encounter Miscellaneous Notes * Treatment Plan - Jan Dumont, NUT PROCESSING SUPERVISOR - 03/17/2018 5:21 PM CDT IMAGING SERVICES- NUCLEAR MEDICINE MEDICATION and FLUSH PROTOCOL [facility] ORDERS ARE ENTERED ???PER PROTOCOL?? Enter the protocol in the patient???s electronic health record using [employer]: .imagingnucmedicineprotocol Communication Orders: o For ordered imaging procedures requiring intravenous access : ??? Initiate a peripheral IV, if not already in place, and discontinue IV prior to discharge (if outpatient). ??? Enter order if needed: Insert Peripheral IV Medication Orders: o Local Anesthetic for use to initiate IV ADULT ??? Lidocaine 4% (L.M.X.4) applied topically ONE TIME prior to IV catheter insertion PRN (L.M.X.4 %should be applied 15 minutes prior to procedure) PEDIATRIC ??? Lidocaine 4% (L.M.X.4) applied topically ONE TIME prior to IV catheter insertion PRN (apply 15 minutes prior to procedure) ??? Sucrose 24%(Tootsweet; Sweet-Ease) oral solution 0.2 mL oral (apply to tongue on pacifier or clean, gloved finger), ONE TIME 2 minutes prior to painful procedure. May repeat dose x1 PRN to complete procedure. o Sodium chloride 0.9% (normal saline) flush 10 mLs PRN for saline lock or medication administration. o For respiratory distress, initiate oxygen and/or increase O2 to maintain saturation greater than 90% Procedure Specific Medications: Adult Procedures & Dosages: o Note: Radiopharmaceuticals dosages with a range are determined by agricultural extension specialist calibration PROCEDURE DOSAGE Bone Marrow Imaging In-111 Chloride (Indium-111 Chloride), Administer 2mCi, IV, ONE TIME. OR Bn86p-Vvtzxu Colloid (Tycrxqjbgx22o-owhsmy colloid), Administer 8mCi Tc99m- sulfur colloid, IV, ONE TIME. Bone Pain Therapy - Quadramet Sm-153 (Samarium-153), Administer 1mCi/kg, IV, ONE TIME. Bone Pain Therapy - Xofigo Ra-223 Xofigo, Administer 1.49uCi/kg, IV, ONE TIME. AND Administer 5 mL sodium chloride, IV, repeated up to 5 times for a total of 30mL. Bone Scan Imaging (Whole Body, Limited, 3-Phase, or SPECT) Og78c-INX (Nmyleuwebc66z-pxtbvvhxc diphosphonate), Administer 25mCi, IV, ONE TIME. OR Rj15k-DGH (Hvoaxiqwgf35w-lptftloqoniopbzr diphosphonate), Administer 25mCi, IV, ONE TIME. Brain Imaging Rc25s-FPTG (Xpokznfxjs13k-ptlcqixfsx-iktnwyes-qqnibsszkxh), Administer 20mCi, IV, ONE TIME. Brain SPECT Imaging Wd57c-SPPC (Stoigqrtym72w-qluiayhfbx-klaldcxz-ujsyefqulbj), Administer 30mCi, IV, ONE TIME. OR Ku02t-JPSHC (Ceretec) (Ulzetcbaxn83n-pjapevoyrbyghzesfzi amine oxime), Administer 20mCi, IV, ONE TIME. OR Tl-201 (Thallium Chloride-201), Administer 6mCi, IV, ONE TIME. Cerebral Flow Imaging Gu95e-LLHF (Ejdkmmvyzw27w-kxwgzjbuwr-xuamjoes-gcnedcagdsu), Administer 25mCi,IV, ONE TIME. Cisternogram Imaging In-111 DTPA (Indium-111 elampstzaf-unxpjtef-hxooanvrhyd), Neuroradiologist to administer 500uCi, Intrathecally, ONE TIME. Cystogram Imaging Tc-99m Pertechnetate (Pttlhnfkxe04p-uciljlgngrqzn) Administer 1mCi Sj39j-mdrsnginuabpd, intra-carver catheter, ONE TIME AND 1000ml NS, intra-carver catheter, ONE TIME. DaTscan Imaging I-123 Ioflupane (Iodine-123 ioflupane), Administer 5mCi, IV, ONE TIME. AND Administer SSKI (Potassium Iodide) drops, 130mg, Orally, ONE TIME one hour prior to radiopharmaceutical injection. Diuretic Renal Imaging Jn31k-JTMB (Otxivygecc95a-gxlilstuir-kgdwskhl-xzsemwperub), Administer 5mCi,IV, ONE TIME. AND Administer Lasix (furosemide), 1mg/kg, IV push over 2 minutes, ONE TIME. Maximum dose of 40mg. OR Gs37e-FWQ7 (Ktntyvgval18a-ypsavakrzqdfxfsfbdosghv), Administer 5mCi, IV, ONE TIME. AND Administer Lasix (furosemide), 1mg/kg, IV push over 2 minutes, ONE TIME. Maximum dose of 40mg. Diverticulum/Meckel's Imaging Tc-99m Pertechnetate (Svqtppjojk98b- pertechnetate), Administer 15mCi,IV, ONE TIME. Esophageal Reflux Imaging Xh85x-Wwywcp Colloid (Tawbkyhnoi60p-gtirhq colloid), Administer 1mCi in 1oz whole milk or 1oz orange juice. Follow with additional 7oz whole milk or 7 oz orange juice, Orally, ONE TIME. Ga-67 Citrate - Cancer Imaging Ga-67 Citrate (Gallium-67 Citrate), Administer 7mCi, IV, ONE TIME. Ga-67 Citrate - Lymphoma SPECT Imaging Ga-67 Citrate (Gallium-67 Citrate), Administer 10mCi, IV, ONE TIME. Ga-67 Citrate - Whole Body Imaging Ga-67 Citrate (Gallium-67 Citrate), Administer 5mCi, IV, ONE TIME. Gastric Empty Imaging - Solid Meal Ho14z-Rxbibt Colloid (Dwuhgujjna72r-uqdqnc colloid), Administer 500uCi in 4 oz egg beaters or in 1 package of cooked instant oatmeal, Orally, ONE TIME. Gastric Empty Imaging - Liquid Meal Mt30p-Wpmdmx Colloid (Pxpmkqprgq45f-utptrq colloid), Tmvndzsysj925oJn in 300mL whole milk, Orally, ONE TIME. GFR Imaging Bn91x-SCOM (Uuqhglypjm95i-xuexucgfcu-tpjmsaau-kkbrtoyvbbm), Administer 3mCi, IV, ONE TIME. GI Bleed Imaging Tc-99m Pertechnetate (Ufvnpycjjs72q-vvzzkwynsdtjd), Administer 22mCi heparanized RBCs, IV, ONE TIME. Hemangioma Imaging NaPYP (sodium pyrophosphate) AND Tc-99m Pertechnetate (Bdrkmvfnuz21d-ukaubjblqvckj), Administer 6mg PYP, IV, ONE TIME. AND Administer 20mCi Si50u-ptyunjxdozurb, IV, ONE TIME. OR Tc-99m Pertechnetate (Tnlzwdagpw11r-xtlvpzkjpiqap), Administer 22mCi heparanized RBCs, IV, ONE TIME. Hepatic Artery Perfusion Imaging TC-99m MAA (Yrnqidnffy83e-oddryvnmurtqejs albumin), InterventionalRadiologist to administer 3 mCi in three divided doses of 1 mCi each, intra-arterial via catheter, ONE TIME. Hepatobiliary Scan Imaging Tc-99m Mebrofenin (Elxpljrqln41c-ctyrucvsdw), Administer 5 mCi IV, ONE TIME *For inpatients only, if bilirubin >5mg/dL, Administer 8 mCi IV, ONE TIME *For inpatients only, if bilirubin > 8mg/dL, consult nuclear medicine physician prior to administering radiopharmaceutical Hepatobiliary Scan with Ejection Fraction Imaging Tc-99m Mebrofenin (Gaujfyznoc27s-ktlupoksgt), Administer 5 mCi IV, ONE TIME. *For inpatients only, if bilirubin >5mg/dL, Administer 8 mCi IV, ONE TIME *For inpatients only, if bilirubin > 8mg/dL, consult nuclear medicine physician prior to administering radiopharmaceutical AND For immediate use - Sincalide (Kinevac) 0.02 mcg/kg IV, ONE TIME, diluted with NS to a total infused volume of 30 mLs. Infuse via an infusion device over 30 minutes. Hepatobiliary Scan with Pre-Treatment Imaging Tc-99m Mebrofenin (Nsulbwqbyi04q- mebrofenin), Administer 5 mCi IV, ONE TIME. *For inpatients only, if bilirubin >5mg/dL, Administer 8 mCi IV, ONE TIME *For inpatients only, if bilirubin > 8mg/dL, consult nuclear medicine physician prior to administering radiopharmaceutical AND For immediate use - Sincalide (Kinevac) 0.01 mcg/kg IV, ONE TIME, diluted with NS to a total infused volume of 5 mLs, IV push over 5 minutes. Hot PYP Bone Imaging Ex74j-QtLFG (Ihwutoihwx35e-gpixxu pyrophosphate), Administer 15mCi, IV, ONE TIME. Hot PYP Cardiac Imaging Is87y-ToSEF (Sivwwytois20a-osgkkt pyrophosphate), Administer 15mCi, IV, ONETIME. Hot PYP Muscle Imaging Jq76j-ArWTA (Hukkfsagxj04s-vzzbuy pyrophosphate), Administer 20mCi, IV, ONE TIME. In-111 WBC Imaging In-111 Oxine (Indium-111 Oxine), Administer at least 400uCi, up to 800uCi, heparanized WBC, IV, ONE TIME. Lacrimal Imaging Th61q-Isatut Colloid (Suuwqaiebs18n-mgxnyz colloid), Administer 2 drops per eye en397kKd/drop, Droplet, ONE TIME. Liver Imaging Mi73p-Sqsath Colloid (Ontpvzbcpa78c-mlylla colloid), Administer 6mCi, IV, ONE TIME. Lung Perfusion - Obese Patient Imaging Tc-99m MAA (Ognloooekg88k-jnyqnvvusevioab albumin), Administer 5mCi for patients > 35BMI, IV, ONE TIME. Lung Perfusion - Obese Patient Imaging Tc-99m MAA (Gnkujutfvj91c- macroaggregated albumin),Administer 3mCi for patients > 35BMI, IV, ONE TIME. Lung Perfusion Imaging Tc-99m MAA (Faqbyqgfrz37b-cjknnmkgfcgvgto albumin), Administer 4mCi, IV, ONETIME. Lung Perfusion - Patient Imaging Tc-99m MAA (Tecbszrxvf27r- macroaggregated albumin), Administer 2mCi for patients , IV, ONE TIME. Lung Ventilation Imaging Xe-133 (Xenon-133), Administer at least 10 mCi, up to 30 mCi, inhalation, ONE TIME. Lymphoscintigraphy - Breast Cancer, Next Day Surgery Jl15c-Wzsmlqjjiz (Nsvlerwsoo47k-utwmbsamow), Administer 2mCi in 2 divided doses of 1mCi each, intradermal, ONE TIME. AND Lidocaine 4% (L.M.X.4) applied 30 minutes prior to injections, TOPICAL, ONE TIME PRN. Lymphoscintigraphy - Breast Cancer, Same Day Surgery Hr93w-Ehehnlktlm (Myhvuoplzj53f-dikhjacoer), Administer 500uCi in 2 divided doses of 250uCi each, intradermal, ONE TIME. AND Lidocaine 4% (L.M.X.4) applied 30 minutes prior to injections, TOPICAL, ONE TIME PRN. Lymphoscintigraphy - Malignant Melanoma, Next Day Surgery Wj95c-Pcqujzqidt (Gmqsqafxed49t-dsovgulxys), Administer 2mCi in 4 divided doses of 0.5mCi each, intradermal, ONE TIME. AND Lidocaine 4% (L.M.X.4) applied 30 minutes prior to injections, TOPICAL, ONE TIME PRN. Lymphoscintigraphy - Malignant Melanoma, Same Day Surgery Ul86f-Npskqqcamg (Wxwnvoqszv99b-mvffbeefyd), Administer 500uCi in 4 divided doses of 125uCi each, intradermal, ONE TIME. AND Lidocaine 4% (L.M.X.4) applied 30 minutes prior to injections, TOPICAL, ONE TIME PRN. Lymphoscintigraphy - Malignant Melanoma, Small Body Area, Next Day Surgery Dl66b-Xbtkgnbncm (Qgxgvhyhlx16v-zpcuczhtei), Administer 2mCi in 2 divided doses of 1mCi each, intradermal, ONE TIME. AND Lidocaine 4% (L.M.X.4) applied 30 minutes prior to injections, TOPICAL, ONE TIME PRN. Lymphoscintigraphy - Malignant Melanoma, Small Body Area, Same Day Surgery Sw67y-Vcmiknlbhe (Jempfkxysw38r-bghkdgmaqh), Administer 500uCi in 2 divided doses of 250uCi each, intradermal, ONE TIME. AND Lidocaine 4% (L.M.X.4) applied 30 minutes prior to injections, TOPICAL, ONE TIME PRN. MIBG Imaging I-123 MIBG (Iodine-123 metaiodobenzylguandidine), Administer 10mCi, IV, ONE TIME. Microsphere Mapping Tc-99m MAA (Nkkjrgirdi60j-blhakmglghlvzhz albumin), Interventional Radiologist to administer 4 mCi in two divided doses of 2 mCi each, intra-arterial via catheter, ONE TIME. MUGA/RVG Imaging Tc-99m Pertechnetate (Rifcyqckez02w-mwakzwmjjozor), Administer 22mCi heparanized RBCs, IV, ONE TIME. Myocardial Dual Isotope Imaging Tl-201 (Thallium Chloride-201) AND Qt05e-Fvjuavu (Jihoysicdp13y-nxknmsx), Administer 3mCi Tl-201for resting images, IV, ONE TIME AND Administer 8mCi Us02x-tapbcbs for stress images, IV, ONE TIME. Myocardial Planar Imaging Rw34k-Drjibxe (Bmtiytvqdp43u-Imglruo), Administer 30mCi, IV, ONE TIME natalie images, ONE TIME for stress images. Myocardial Rest Imaging - SPECT Imaging Tl-201 (Thallium Chloride-201), Administer 4mCi, IV, ONE TIME. OR Pb44m-Azsewju (Tfeoodbmln22r-Bckjzeh), Administer 4mCi for patients <180 lbs, IV, ONE TIME. OR Tl86y-Aqyyzrz (Zlknmvnixb99c-Qhcmjdy), Administer 5mCi for patients 181-240 lbs, IV, ONE TIME. OR Ue04i-Zzdvuxy (Txnankxifn82o-Ywfbfjg), Administer 6mCi for female patients 241- 265 lbs, IV, ONE TIME. OR Bn39l-Cjhecdq (Jgsdglmglf31b-Ixbxzjo), Administer 6mCi for male patients 241-330 lbs, IV, ONE TIME. OR Qy79r-Uyiqxqh (Fntxfkuafa61f-Tnyogrw), Administer 8mCi for female patients 266- 399 lbs, IV, ONE TIME. OR Vz37x-Wxxntvn (Hwkubhhmvl47t-Rutdotz), Administer 8mCi for male patients 331-299 lbs, IV, ONE TIME. Myocardial Stress - SPECT Imaging Df55t-Qllgxvh (Vnxhdadoew13r-Xpqdacq), Administer 12mCi for patients <180 lbs, IV, ONE TIME. OR Dj52t-Nevpzwv (Gwimmdblpm29h-Jrucaya), Administer 15mCi for patients 181-240 lbs, IV, ONE TIME. OR At89u-Fichywj (Znttvahdpx85v-Adnecap), Administer 18mCi for female patients 241- 265 lbs, IV, ONE TIME. OR Ck13v-Efmhhtc (Iicsekpnhd95o-Eulyowx), Administer 18mCi for male patients 241- 330 lbs, IV, ONE TIME. OR Jt54p-Uazzhgw (Caxucroyzt03j-Dzaitko), Administer 24mCi for female patients 266- 399 lbs, IV, ONE TIME. OR Qd15p-Ylawfkj (Sinuzfxlwx04a-Bewbxci), Administer 24mCi for male patients 331- 299 lbs, IV, ONE TIME. Myocardial Thallium Stress - Planar Imaging Tl-201 (Thallium Chloride-201), Administer 3mCi IV, ONETIME. Myocardial Viability Imaging Tl-201 (Thallium Chloride-201), Administer 3mCi, IV, ONE TIME. AND Administer 1mCi, IV, ONE TIME 3.5 hours post rest injection. Octreoscan - Planar Imaging In-111 Pentetreotide (Indium-111 Pentetreotide), Administer 3mCi, IV, ONE TIME. Octreoscan - SPECT Imaging In-111 Pentetreotide (Indium-111 Pentetreotide), Administer 6mCi, IV, ONE TIME. Parathyroid Imaging Zz85z-Vsdoelcss (Dnfpgxbhrs18f-irzemclmi), Administer 20mCi, IV, ONE TIME. PET/CT Axumin F-18 Axumin (Fpcreeis71-reyjclzrmdph), Administer 10mCi, IV, ONE TIME. PET/CT Bone Scan F18-NaF (Bdemcsmg38-kbiwgo fluoride), Administer 0.11mCi/kg with at least 8mCi, upto 14mCi, IV, ONE TIME. PET/CT Brain Imaging F18-FDG (Pipbmghu51-bpebvpdhexbdnttem), Administer 0.11mCi/kg with at least 8mCi, up to 14mCi, IV, ONE TIME. PET/CT Dotatate Imaging Ga-68 Dotatate (Gallium-68 Dotatate), Administer 5.4mCi, IV, ONE TIME. PET/CT Limited, Standard, or Whole-Body Oncology Imaging F18-FDG (Zidltynr57- flurodeoxyglucose), Administer 0.11mCi/kg with at least 8mCi, up to 14mCi, IV, ONE TIME. PET/CT Myocardial Scan F18-FDG (Uckwsmgd58-iuqmdbpkrbfukltww), Administer 0.11mCi/kg with at least 8mCi, up to 14mCi, IV, ONE TIME. Post GFR Imaging It96v-BVUW (Nubhiyuwps63a-crfsmfdjnm-zyhtngri-tkqrfojpwwc), Administer 12mCi, IV, ONE TIME. OR Bp53t-UDV7 (Hzaniuxjja49s-fythjopqrgxfqowwydmgxlb), Administer 5mCi, IV, ONE TIME. PY Breath Test C-14 Urea (Carbon-14 Urea), Administer 1 uCi, Orally, ONE TIME. Renal Cortical Imaging Sr66g-BWNZ (Txkvxuiiwq13k-chighyzryvopqnnhsy acid), Administer 5mCi, IV, ONETIME. Renal Perfusion Imaging Zy71c-MRLM (Daxioaxvyc53b-ajcovxzuwf-sytwqdeq-bjlwrwtvfkf), Administer 15mCi, IV, ONE TIME. OR Aj36m-DZB6 (Vhdvcsohtv32k-rdunmkelrcpakszecchqbnn), Administer 5mCi, IV, ONE TIME. Renogram Imaging Nn09e-UVKC (Nobqtdaatv68q-ehhlubtyng-hbgckxfi-ozsmejvldgp), Administer 5mCi, IV, ONE TIME. OR Tz05s-KHV2 (Fdlastvpuc70z-zuudurvthrhxwdmbviefrgk), Administer 5mCi, IV, ONE TIME. Renogram with Flow Imaging Nr45h-GJBI (Dqkeuevdex91f-ngqjwoexfz-jcfengju-yjxsbmqqrrg), Administer 5mCi, IV, ONE TIME. OR Lu01u-UBW4 (Lqnehlakdw75m-ryhbmktzacpfjhdkcgmmtwe), Administer 5mCi, IV, ONE TIME. Salivary Imaging Tc-99m Pertechnetate (Ntsxcjyues08k-wqqzfohcmnqwz), Administer 5mCi, Orally, ONE TIME. Shunt Patency Imaging Oz41d-OHVI (Txtzwbbdam75c-bbsofmfsap-kzdglmpb-blhmumcmwlt), Neuroradiologist to administer 500uCi, intra-shunt reservoir, ONE TIME. Substernal Thyroid Imaging I-131 Na Iodide (Iodide-131 Na Iodide), Administer 100 uCi, Orally, ONE TIME. Wn02n-CZK Imaging Sk22a-Pwxvsad (Mvshwakvhz91q-Ratkxom), Administer at least 15mCi, up to 20mCi, heparanized WBC, IV, ONE TIME. Testicular Imaging Tc-99m Pertechnetate (Juncigtbtb69j-qxeirltuvqbqu), Administer 15mCi, IV, ONE TIME. Thallium Whole Body Scan Imaging Tl-201 (Thallium Chloride-201), Administer 3mCi, IV, ONE TIME. Thyrogen Injection Thyrogen (thyrotopin clarissa), Administer 0.9mg, deep IM, every 24 hours for 2 doses. Thyroid Imaging Tc-99m Pertechnetate (Pjahfxnajq38h-saxyxdbefmdhn), Administer 5mCi, IV, ONE TIME. Thyroid Scan/Uptake I-123 Na Iodide (Iodide-123 Na Iodide), Administer at least 200 uCi, up to 400 uCi, Orally, ONE TIME. Thyroid Uptake I-131 Na Iodide (Iodide-131 Na Iodide), Administer at least 5 uCi, up to 25 uCi, Orally, ONE TIME. Vasotec/Enalaprilat Renal Imaging Hw50l-SDFQ (Cdeyfebfky99o-bseykeepgj-fqdksxip-znmcskwjulx), Administer 5mCi, IV, ONE TIME. AND Administer Enalaprilat (Vasotec) 0.04mg/kg with a maximum dose of 2.5mg. Dilute to 5mL total volumewith normal saline and infuse via infusion device over 5 minutes. OR Ve31e-UON6 (Mfaqwhuanq93k-gbtmzqunwmcedrswxaadysq), Administer 5mCi, IV, ONE TIME. AND Administer Enalaprilat (Vasotec) 0.04mg/kg with a maximum dose of 2.5mg. Dilute to 5mL total volumewith normal saline and infuse via infusion device over 5 minutes. Venography Imaging NaPYP (sodium pyrophosphate) AND Tc-99m Pertechnetate (Cxdsssbrjd88i-akwhdahbhvqoo), Administer 6mg NaPYP, IV, ONE TIME AND Administer 15mCi Uf32t-jwowjzieclmcp, IV, ONE TIME. Whole Body I-131 Imaging I-131 Na Iodide (Iodide-131 Na Iodide), Administer 3 mCi, Orally, ONE TIME. Pediatric Procedures & Dosages: o Note: Radiopharmaceuticals dosages with a range are determined by agricultural extension specialist calibration PROCEDURE DOSAGE Bone Scan Imaging (Whole Body, Limited, 3-Phase, or SPECT) Cj17v-PTO (Hjbrbaiboo68a-nazlyhxlr diphosphonate), Administer 0.25mCi/kg with at least 1mCi, up to 20mCi, IV, ONE TIME. Brain Imaging Oq50g-PEFQ (Hfinbcxmln04s-uskgankvjd-ahazrmfv-ibmspstqepv), Administer 0.8mCi/kg with at least 5mCi, up to 20mCi, IV, ONE TIME. Cisternogram Imaging In-111 DTPA (Indium-111 bixubeczzn-jtmxlgww-agclhwkmxlk), Neuroradiologist to administer 4uCi/kg with at least 50uCi, up to 300uCi, Intrathecally, ONE TIME. Cystogram Imaging Tc-99m Pertechnetate (Eqjlgcnlqb45y-qinnbnemdrbzy) Administer 1mCi, intra-carver catheter, ONE TIME AND Administer 500ml-1000ml NS, intra-carver catheter, ONE TIME. Diuretic Renal Imaging Pc65h-DKQD (Awdzolzyml67x-ctvxjxbyic-ndeeacya-eggnbihprgi), Administer 0.2mCi/kg with at least 2.5mCi, up sy77rJp , IV, ONE TIME. AND Administer Lasix (furosemide), 1mg/kg, up to 40mg, IV push over 2 minutes, ONE TIME. OR Bg74m-BTJ2 (Jcpszyqiws71t-jfhigtbqxfnjuomslvyvnjf), Administer 0.1mCi/kg with at least 1mCi, up to 5mCi, IV, ONE TIME. AND Administer Lasix (furosemide), 1mg/kg, up to 40mg, IV push over 2 minutes, ONE TIME. Diverticulum/Meckel's Imaging Tc-99m Pertechnetate (Hkkstiefue65s- pertechnetate), Administer 0.05mCi/kg with at least 2.5mCi, up to 15mCi, IV, ONE TIME. Esophageal Reflux Imaging - <1yoa Vk24z-Anqzsr Colloid (Asmfmdbaui11j-zabsim colloid), Administer 0.1mCi for patients <3.5lbs, Orally, ONE TIME. OR Administer 0.2mCi for patients 3.5-6.5lbs, Orally, ONE TIME. OR Administer 0.3mCi for patients >6.5lbs, Orally, ONE TIME. *For all administrations, mix half of formula or breast milk feeding amount with radiopharmaceutical. Follow with remainder of feeding amount. Esophageal Reflux Imaging - >1yoa Vd51w-Ddolgh Colloid (Qzqqwbpana01e-jhudgj colloid), Administer 0.5mCi in 1 oz whole milk, Orally, ONE TIME. Follow with 7 oz whole milk. Ga-67 Citrate - Infection Imaging Ga-67 Citrate (Gallium-67 Citrate), Administer 0.055mCi/kg with at least 0.5mCi, up to 5.5mCi, IV, ONE TIME. Ga-67 Citrate - Malignancy Imaging Ga-67 Citrate (Gallium-67 Citrate), Administer 0.110mCi/kg with at least 0.5mCi, up to 8mCi, IV, ONE TIME. Ga-67 Citrate - Whole Body Imaging Ga-67 Citrate (Gallium-67 Citrate), Administer 0.05mCi/kg with at least 0.25mCi, up to 5mCi, IV, ONE TIME. Gastric Empty Imaging - Liquid Meal Tb14j-Ellqag Colloid (Zezhqmazoe39b-ubwsvp colloid), Administer0.5mCi in 300mL whole milk or formula, Orally, ONE TIME. Gastric Empty Imaging - Solid Meal Vb00e-Ipuefs Colloid (Empyrizwnx67u-njmokl colloid), Administer 500uCi in 4 oz egg beaters or in 1 package of cooked instant oatmeal, Orally, ONE TIME. GI Bleed Imaging Tc-99m Pertechnetate (Ugehansopb55x-fysycemeyosas), Administer 0.2mCi heparanized RBCs with at least 1mCi, up to 20mCi, IV, ONE TIME. Hemangioma Imaging Tc-99m Pertechnetate (Nserlxddbv67t-lgcnzwfcymvph), Administer 0.2mCi heparanized RBCs with at least 1mCi, up to 20mCi, IV, ONE TIME. Hepatobiliary Scan Imaging Tc-99m Mebrofenin (Alhsuqlozl54z-odlejqlrqy), Administer .05mCi/kg with a at least 1mCi, up to 5mCi IV, ONE TIME Hepatobiliary Scan with Ejection Fraction Imaging Tc-99m Mebrofenin (Ufoojbdqhg80i-juwlajlwrq), Administer .05mCi/kg with a at least 1mCi, up to 5mCi IV, ONE TIME AND For immediate use - Sincalide (Kinevac) 0.02 mcg/kg IV, ONE TIME, diluted with NS to a total infused volume of 30 mLs. Infuse via an infusion device over 30 minutes. Hepatobiliary Scan with Pre-Treatment Imaging Tc-99m Mebrofenin (Kyniudztep49j- mebrofenin), Administer 0.05mCi/kg with a at least 1mCi, up to 5mCi IV, ONE TIME AND For immediate use - Sincalide (Kinevac) 0.01 mcg/kg IV, ONE TIME, diluted with NS to a total infused volume of 5 mLs., IV push over 5 minutes. Hot PYP Bone Imaging Xr46a-MkCTF (Ujpfgyobxn15d-ojwqrg pyrophosphate), Administer 0.6mCi/kg, with at least 2.5mCi, up to 20mCi IV, ONE TIME. Hot PYP Cardiac Imaging Ie15j-JdUIJ (Thznhcxxwz57d-tgetud pyrophosphate), Administer 0.6mCi/kg, with at least 2.5mCi, up to 20mCi IV, ONE TIME. In-111 WBC Imaging In-111 Oxine (Indium-111 Oxine), Administer 20uCi/kg with at least 50uCi, up to 300uCi, heparanized WBC, IV, ONE TIME. Liver/Spleen Imaging Eq54w-Jzpcqo Colloid (Vrbvfceeps59x-gxdygt colloid), Administer 0.05mCi/kg with at least 0.4mCi, up to 3mCi, IV, ONE TIME. Lung Perfusion Imaging Tc-99m MAA (Awjdirpfte14m-vjjdpuljchzuzvc albumin), Administer 0.03mCi/kg, with at least 0.4mCi, up to 3mCi IV, ONE TIME. Lung Ventilation Imaging Xe-133 (Xenon-133), Administer at least 4 mCi, up to 7 mCi, inhalation, ONE TIME. MIBG Imaging I-123 MIBG (Iodine-123 metaiodobenzylguandidine), Administer 0.14mCi/kg with at least 2mCi, up to 10mCi, IV, ONE TIME AND Administer SSKI (Potassium Iodide) drops 1 hour prior to radiopharmaceutical injection. ??? * to 1 month: 16mg, Orally, ONE TIME. ??? * 1 month to 3 years of age: 32mg, Orally, ONE TIME. ??? * Greater than 3 years to 18 years of age: 65mg, Orally, ONE TIME. MUGA/RVG Imaging Tc-99m Pertechnetate (Bzbnykofsd60n-bddkjsvuddoaj), Administer 0.2mCi/kg heparanized RBCs with at least 1mCi, up to 20mCi, IV, ONE TIME. Myocardial Rest Imaging - SPECT Imaging Xp48w-Iyjimlx (Molxiitwza59e-Ojfhmbi), Administer at least 5.18mCi, up to 6.08mCi, IV, ONE TIME. Consult authorized user prior to administration. Dosage based on Bartholomew's Rule (age+1/age+7)*8 Myocardial Stress Imaging - SPECT Imaging Rc34k-Ezsebtv (Qtvbfxsicl60v-Vdiiftv), Administer at least 15.5mCi, up to 18.24mCi, IV, ONE TIME. Consult authorized user prior to administration. Dosage based on Bartholomew's Rule (age+1/age+7)*24 Myocardial Viability Imaging Tl-201 (Thallium Chloride-201), Administer .035mCi/kg, at least 0.25mCi, up to 2mCi, IV, ONE TIME. Octreoscan - Planar Imaging In-111 Pentetreotide (Indium-111 Pentetreotide), Administer 0.04mCi/kg with at least 0.5mCi, up to 6mCi, IV, ONE TIME. Octreoscan - SPECT Imaging In-111 Pentetreotide (Indium-111 Pentetreotide), Administer 0.08mCi/kg with at least 0.5mCi, up to 6mCi, IV, ONE TIME. Parathyroid Imaging Bd97i-Eftmvfohz (Jccpeyjlwf37p-igszstcmg), Administer at least 5.18mCi, up to 6.08mCi, IV, ONE TIME. Dosage based on Bartholomew's Rule (age+1/age+7)*8 PET/CT Brain Imaging F18-FDG (Rvskeboy46-rtubtjftwedrbljsk), Administer 0.11mCi/kg with at least 1mCi, up to 10mCi, IV, ONE TIME. PET/CT Limited, Standard, or Whole-Body Oncology Imaging F18-FDG (Faoyenue72- flurodeoxyglucose), Administer 0.11mCi/kg with at least 2mCi, up to 10mCi, IV, ONE TIME. Renal Cortical Imaging Cr70i-IZTV (Ijpuglicka48t-rxekzclpxruxttvrht acid), Administer 0.05mCi/kg with at least 0.5mCi, up to 2.5mCi, IV, ONE TIME. Renogram Imaging Oe47g-JZIM (Cewbdeepiq72j-giczuwakly-pwjoqfsz-jgfqyrztipf), Administer 0.2mCi/kg with at least 2.5mCi, up tz28nPf OR Zp78v-PEF1 (Vdepkhjckt82d-ggaokfvzhrbnhidhwdrhuaz), Administer 0.1mCi/kg with at least 1mCi, up to 5mCi, IV, ONE TIME. Renogram with Flow Imaging Rq63l-LRXF (Hvcnlrwxds27t-ymfnfdhmwj-yrxpopbj-pmswpvomdyo), Administer 0.2mCi/kg with at least 2.5mCi, up zf11oIv OR Yo83o-RGJ4 (Rqlwbtphxg16l-bfdbhapakiryqqtrgffvawv), Administer 0.1mCi/kg with at least 1mCi, up to 5mCi, IV, ONE TIME. Me88f-BIL Imaging We40b-Fubrqzl (Nidxeaekfr36q-Vxmhqjh), Administer 0.6mCi/kg heparanized WBC, IV, ONE TIME. Confirm calculated dose with nuclear medicine physician prior to injection. Testicular Imaging Tc-99m Pertechnetate (Alvkkmmtss63n-pqwdvqqrgnzpv), Administer 0.4mCi/kg with atleast 5mCi, up to 15mCi, IV, ONE TIME. Thyroid Imaging Tc-99m Pertechnetate (Jdmkjoywim45t-uszosekpzpthd), Administer 0.07mCi/kg with at least 1mCi, up to 5mCi, IV, ONE TIME. Thyroid Scan/Uptake I-123 Na Iodide (Iodide-123 Na Iodide), Administer at least 100uCi, up to 200uCi, Orally, ONE TIME. Thyroid Scan/Uptake I-131 Na Iodide (Iodide-131 Na Iodide), Administer at least 2uCi, up to 20uCi, Orally, ONE TIME. Vasotec/Enalaprilat Renal Imaging Bi05o-SYOM (Orowkpwctv01k-ngckflorrs-etyrlmid-nfpobgeijua), Administer 0.2mCi/kg with at least 2.5mCi, up qm27mBo AND Administer Enalaprilat (Vasotec) 0.03mg/kg, up to 2.5mg. Dilute to 5mL total volume with normal saline and infuse via infusion device over 5 minutes. OR Ng88d-ACV7 (Ntamhuujkx69o-zuuyhufanajxaeilatgoyam), Administer 0.1mCi/kg with at least 1mCi, up to 5mCi, IV, ONE TIME. AND Administer Enalaprilat (Vasotec) 0.03mg/kg, up to 2.5mg. Dilute to 5mL total volume with normal saline and infuse via infusion device over 5 minutes. 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 Office Visit [facility] Oncology and Hematology - [place] [address] [facility] [address] [place] [address] Ubaldo Cardenas MD [address] [facility] [address] [place] [address] documented as of this encounter Procedures Procedure Name Priority Date/Time Associated Diagnosis Comments CTA CHEST W WO CONTRAST Stat 03/17/2018 7:25 PM CDT NM LUNG VENT PERF Stat 03/17/2018 5:3 3 PM CDT EKG 12-LEAD Stat 03/17/2018 3:53 PM CDT EXTRA TUBE (GREEN) Stat 03/17/2018 3: 51 PM CDT EXTRA TUBE (BB PINK/LAV) Stat 03/17/2018 3:51 PM CDT EXTRA TUBE (LAV) Stat 03/17/2018 3:51 PM CDT EXTRA TUBE Stat 03/17/2018 3:51 PM CDT documented in this encounter Results * CTA CHEST W WO CONTRAST (03/17/2018 7:25 PM CDT) Anatomical Region Laterality Modality Chest Computed Tomogra phy 03/17/2018 7:29 PM CDT Impressions 03/17/2018 9:17 PM CDT IMPRESSION: No large central pulmonary embolism. DICTATION LOCATION: Location 1 - [facility] 03/17/2018 9:17 PM CDT EXAMINATION: CTA OF THE CHEST WITH AND WITHOUT INTRAVENOUS CONTRAST WITH RECONSTRUCTIONS DATE: 03/17/2018 7:25 PM HISTORY: Shortness of breath COMPARISON: None available TECHNIQUE: Transaxial computed tomographic images of the chest were obtained before and after the uneventful administration of 80 mL intravenous contrast according to angiographic protocol. The images were reconstructed in Maximum Intensity Projection (MIP) protocol using oblique projections. ??The examination was performed with the adjustment of mA according to the patient size and/or the use of Iterative Reconstruction Technique. ?? DLP: 259 mGy-cm VASCULAR FINDINGS: Study is limited by overall poor contrast bolus. PULMONARY ARTERIES: No enlarged central pulmonary embolism. Evaluation for subsegmental pulmonary emboli is limited by poor contrast opacification. AORTA: Normal in course and caliber. Left aortic arch with three vessel branching. Contrast not timed for optimal evaluation. HEART: Normal in size. No pericardial effusion. NONVASCULAR FINDINGS: LUNGS/AIRWAYS/PLEURA: Patchy bibasilar groundglass. No pneumothorax or pleural effusion. MEDIASTINUM AND SANDRA: Residual thymus in the anterior mediastinum. No appreciable lymphadenopathy. CHEST WALL AND LOWER NECK: Within normal limits. UPPER ABDOMEN: Unremarkable. BONES: Within normal limits. Procedure Note Amisha Garcia MD - 03/17/2018 EXAMINATION: CTA OF THE CHEST WITH AND WITHOUT INTRAVENOUS CONTRAST WITH RECONSTRUCTIONS DATE: 03/17/2018 7:25 PM HISTORY: Shortness of breath COMPARISON: None available TECHNIQUE: Transaxial computed tomographic images of the chest were obtained before and after the uneventful administration of 80 mL intravenous contrast according to angiographic protocol. The images were reconstructed in Maximum Intensity Projection (MIP) protocol using oblique projections. The examination was performed with the adjustment of mA according to the patient size and/or the use of Iterative Reconstruction Technique. DLP: 259 mGy-cm VASCULAR FINDINGS: Study is limited by overall poor contrast bolus. PULMONARY ARTERIES: No enlarged central pulmonary embolism. Evaluation for subsegmental pulmonary emboli is limited by poor contrast opacification. AORTA: Normal in course and caliber. Left aortic arch with three vessel branching. Contrast not timed for optimal evaluation. HEART: Normal in size. No pericardial effusion. NONVASCULAR FINDINGS: LUNGS/AIRWAYS/PLEURA: Patchy bibasilar groundglass. No pneumothorax or pleural effusion. MEDIASTINUM AND SANDRA: Residual thymus in the anterior mediastinum. No appreciable lymphadenopathy. CHEST WALL AND LOWER NECK: Within normal limits. UPPER ABDOMEN: Unremarkable. BONES: Within normal limits. IMPRESSION: No large central pulmonary embolism. DICTATION LOCATION: Location [address] [place] [address] ORDERABLES * NM LUNG VENT PERF (03/17/2018 5:33 PM CDT) Anatomical Region Laterality Modality Chest Nuclear Medicine 03/17/2018 5:37 PM CDT Impressions 03/17/2018 6:55 PM CDT IMPRESSION: ?? 1. Low probability lung scan consisting of a matched large perfusion defects in both lower lobes. 2. Ventilation findings consistent with obstructive pulmonary disease, possibly small airways disease such as asthma given the patient's age. These findings were discussed with Dr. Caceres by Dr. Gerard at 6:52 PM on 03/17/2018. DICTATION LOCATION: Location - [facility] Narrative 03/17/2018 6:55 PM CDT VENTILATION/PERFUSION LUNG SCAN DATE: 03/17/2018 5:33 PM HISTORY: Left-sided pleuritic chest pain in the setting of second trimester PRIOR EXAMS: Outside chest radiograph performed the same day. PROCEDURE: Dynamic ventilation and multiple static perfusion images. RADIOPHARMACEUTICALS: 14.535 mCi Xe-133 for ventilation 3.446 mCi 99m technetium MAA for perfusion Route of injection: Right antecubital vein Quality of the Scan: Satisfactory. FINDINGS: Ventilation: Large ventilation defects in the medial basilar/superior segments of both lower lobes. There is retention of tracer during washout most pronounced in the lung bases indicative of obstructive disease. Perfusion: Matching large perfusion defects involving the medial basilar/superior segments of both lower lobes. No large, wedge-shaped, pleural-based segmental mismatched perfusion defects are seen that would suggest pulmonary emboli. Procedure Note Matthieu Gerard MD - 03/17/2018 VENTILATION/PERFUSION LUNG SCAN DATE: 03/17/2018 5:33 PM HISTORY: Left-sided pleuritic chest pain in the setting of second trimester PRIOR EXAMS: Outside chest radiograph performed the same day. PROCEDURE: Dynamic ventilation and multiple static perfusion images. RADIOPHARMACEUTICALS: 14.535 mCi Xe-133 for ventilation 3.446 mCi 99m technetium MAA for perfusion Route of injection: Right antecubital vein Quality of the Scan: Satisfactory. FINDINGS: Ventilation: Large ventilation defects in the medial basilar/superior segments of both lower lobes. There is retention of tracer during washout most pronounced in the lung bases indicative of obstructive disease. Perfusion: Matching large perfusion defects involving the medial basilar/superior segments of both lower lobes. No large, wedge-shaped, pleural-based segmental mismatched perfusion defects are seen that would suggest pulmonary emboli. IMPRESSION: 1. Low probability lung scan consisting of a matched large perfusion defects in both lower lobes. 2. Ventilation findings consistent with obstructive pulmonary disease, possibly small airways disease such as asthma given the patient's age. These findings were discussed with Dr. Caceres by Dr. Gerard at 6:52 PM on 03/17/2018. DICTATION LOCATION: Location 1 - [facility] Felicity Caceres MD NM ORDERABLES * EKG 12-LEAD (03/17/2018 3:53 PM CDT) 03/17/2018 3:53 PM CDT Narrative INTERFACE SYSTEM - 03/18/2018 7:39 AM CDT ? Stationary ECG Study ? [facility] ? Test Date: ?03/17/2018 3:53 PM Pat Name: ? VERA VITALE ?Department: ?? 41 ?Room: ? 07 07 Gender: ? F ?Director Of Publications: ?? strobn : ?1985 ? Requested By: ?? Order Number: [id number] ?Reading : ?? Wilian Narayan ? Measurements Intervals ?[place] ? Rate: ? 68 ? P: ?40 VA: ? 144 ?QRS: ?20 QRSD: ? 87 ? T: ?18 QT: ? 404 ? QTc: ?430 ? Interpretive Statements ? Sinus rhythm Electronically Signed On 03-18-2018 7:39:44 CDT by Wilian Narayan Procedure Note Wilian Narayan MD - 10/19/2021 Stationary ECG Study [facility] Test Date: 03/17/2018 3:53 PM Pat Name: VERA VITALE Department: 41 Room: [facility] Gender: F Director Of Publications: terrell : 1985 Requested By: Order Number: [id number] Reading MD: Wilian Narayan Measurements Intervals [place] Rate: 68 P: 40 VA: 144 QRS: 20 QRSD: 87 T: 18 QT: 404 QTc: 430 Interpretive Statements Sinus rhythm Electronically Signed On 03-18-2018 7:39:44 CDT by Wilian Narayan Felicity Caceres MD ECG ORDERABLES INTERFACE SYSTEM Refer to clinic/hospital department * EXTRA TUBE (BB PINK/LAV) (03/17/2018 3:51 PM CDT) EXTRA TUBE (BB PINK/LAV) Order Complete 03/17/2018 4:03 PM CDT [facility] Blood Venipuncture / Unknown 03/17/2018 3:51 PM CDT 03/17/2018 3:56 PM CDT Felicity Caceres MD CHEMISTRY ORDERABLES Performing Organization Address [facility] Co de Phone Number [facility]# [id number] [address] [address] * EXTRA TUBE (LAV) (03/17/2018 3:51 PM CDT) Blood Venipuncture / Unknown 03/17/2018 3:51 PM CDT 03/17/2018 3:55 PM CDT Felicity Caceres MD HEMATOLOGY ORDERABLE S Performing Organization Address [facility] Co de Phone Number [facility]# [id number] [address] [address] * EXTRA TUBE (GREEN) (03/17/2018 3:51 PM CDT) Blood Venipuncture / Unknown 03/17/2018 3:51 PM CDT 03/17/2018 3:55 PM CDT Felicity Caceres MD CHEMISTRY [facility]ABLES [facility]# [id number] [address] [place] [address] documented in this encounter Visit Diagnoses Diagnosis Left sided chest pain- Primary 23 weeks gestation of state, incidental documented in this encounter Administered Medications Inactive Administered Medications - up to 3 most recent administrations Medication Order MAR Action Action Date Dose Rate Site acetaminophen (TYLENOL) tablet 650 mg 650 mg, Oral, ONE TIME ONLY, 1 dose, On 03/17/18 at 1815, Routine Given 03/17/2018 6:14 PM CDT 650 mg HYDROcodone-acetaminophen (NORCO) 5-325 mg per tablet 1 Tablet 1 Tablet, Oral, ONE TIME ONLY, 1 dose, On 03/17/18 at 2145, Routine Given 03/17/2018 9:40 PM CDT 1 Tablet iopamidol (ISOVUE-300) 61 % injection 80 mL 80 mL, IV, INTRA-PROCEDURE ONCE, 1 dose, Starting on 03/17/18 at 1909, Until 03/17/18 at 1915, Routine Contrast Given 03/17/2018 7:15 PM CDT 80 mL sodium chloride 0.9% infusion IV, at 35 mL/hr, ONE TIME ONLY, 1 dose, On 03/17/18 at 1930, Routine New Bag 03/17/2018 7:15 PM CDT 35 mL 35 mL/hr documented in this encounter Active and Recently Administered Medications Times are shown in CDT. Scheduled Medication Order 03/15/2018 03/16/2018 03/17/2018 acetaminophen (TYLENOL) tablet 650 mg (COMPLETED) 650 mg, Oral, ONE TIME ONLY, 1 dose, On 03/17/18 at 1815, Routine 1814 (Given - Provid er: Napoleon Kovacs RN) HYDROcodone-acetaminophen (NORCO) 5-325 mg per tablet 1 Tablet (COMPLETED) 1 Tablet, Oral, ONE TIME ONLY, 1 dose, On 03/17/18 at 2145, Routine 2140 (Given - Provid er: Napoleon Kovacs RN) iopamidol (ISOVUE-300) 61 % injection 80 mL (COMPLETED) 80 mL, IV, INTRA-PROCEDURE ONCE, 1 dose, Starting on 03/17/18 at 1909, Until 03/17/18 at 191, Routine 191 (Contrast Given - Provider: Lenore Alvares, RT) sodium chloride 0.9% infusion (COMPLETED) IV, at 35 mL/hr, ONE TIME ONLY, 1 dose, On 03/17/18 at 1930, Routine 191 (New Bag - Prov ider: Lenore Alvares, RT - Comment: CTA flush)1938 (Stopped - Provider: Napoleon Kovacs RN) documented in this encounter Care Teams Gear Roller Relationship Specialty Start Date End Date Rachid Colindres DO [address] [phone] PCP - General Geriatric Medicine 01/06/18 11/14/23 documented as of this encounter
--- OUTSIDE RECORDS SUMMARY | 2024-08-03 01:40 | XMS_ITS | Encounter Summary ---
[facility] Organization [facility] Address [address] [place] [address] Care Team Providers Care Subsystems Engineer Name Role Phone Hilda Eden RADHA Primary Care Provider [phone] Reason for Visit * Auth/Cert Specialty Diagnoses / Procedures Referred By Reva t Referred To Contact Obstetrics Diagnoses EDC 10/07 Cholestasis [facility] approved Primary Procedures SECTION [facility] Mother Baby [address]c [address] [place] [address] Referral ID Status Reason Start Date Expiration Date Visits Re quested Visits Authorized [id number] 09/18/2016 10/19/2017 1 Encounter Details Date Type Department Care Team (Latest Contact Info) Description 09/13/2016 10:38 AM DISTRICT DIRECTOR - 09/16/2016 11:32 AM DISTRICT DIRECTOR Hospital Encounter [facility] Mother/Baby 6C [address] [place] [address] [place] [address] [place] [address] S/P section Discharge Disposition: Home or Self Care Social [...] Sign Reading Time Taken Comments Blood Pressure 133/67 09/16/2016 7:52 AM DISTRICT DIRECTOR Pulse 80 09/16/2016 7:52 AM DISTRICT DIRECTOR Temperature 36.8 ??C (98.3 ??F) 09/16/2016 7:52 AM CS T Respiratory Rate 16 09/16/2016 7:52 AM DISTRICT DIRECTOR Oxygen Saturation 92% 09/15/2016 8:12 PM DISTRICT DIRECTOR Inhaled Oxygen Concentration - - Weight 105.2 kg (232 lb) 09/13/2016 10:58 AM DISTRICT DIRECTOR Height 167.6 cm (5' 6 ) 09/13/2016 10:58 AM DISTRICT DIRECTOR Body Mass Index 37.45 09/13/2016 10:58 AM DISTRICT DIRECTOR documented in this encounter Discharge Summaries * Keo Meza MD - 09/15/2016 7:45 PM CST 4Patient: Vera Vitale / 31 y.o. / female : 1985 Admit date: 09/13/2016 Discharge date: 09/15/2016 Attending Physician: Keo Meza MD Principal and Secondary Diagnoses 1. IUP at 36w4d weeks 2. Cholestasis of Principal and Secondary Procedures 1. repeat Low Transverse Pertinent History & Physical See H&P. Hospital Course See operative report for C-sect indications & procedure. Post operatively the patient did well.On POD#1, patient's carver catheter was removed and she voided spontaneously. Her diet was advanced as tolerated. She ambulated without difficulty and her pain was controlled with PO pain meds. She was discharged home is a stable condition on post-op day #3. Discharge Labs Lab Results Component Value Date/Time WBC 12.0 (H) 09/13/2016 03:35 PM HGB 11.1 (L) 09/13/2016 03:35 PM HCT 32.0 (L) 09/13/2016 03:35 PM PLT 292 09/13/2016 03:35 PM MCV 85.3 09/13/2016 03:35 PM Lab Results Component Value Date/Time ABO/RH TYPE B Positive 04/12/2012 02:40 PM ABO GROUP B 09/13/2016 11:26 AM ABSTRACTED ABOGROUP B 04/27/2016 Immunization History Administered Date(s) Administered ??? Influenza Vaccine 07/13/2010, 06/11/2015 ??? Influenza Vaccine Quad Split 3+ Yrs Pf Im 09/15/2016 ? ? TDAP Vaccine > 7 YO IM 11/25/2010 Discharge Condition: stable. Disposition She is discharged to home. See discharge instructions. Appropriate instructions were reviewed with the patient including no lifting >10 lbs & nothing per vagina x 6 wks. She'll followup in theoffice in 4 weeks weeks. Discharge Medications Medication List CONTINUE taking these medications aspirin 81 mg Tablet, Chewable Commonly known as: KESHA CHEWABLE Take 81 mg by mouth daily. Refills: 0 cetirizine 10 mg tablet Commonly known as: ZyrTEC Take 10 mg by mouth daily. Refills: 0 docusate sodium 100 mg capsule Commonly known as: COLACE Take 1 Capsule (100 mg) by mouth 2 times daily. Signed by: Ayde Smith Quantity: 60 Capsule Refills: 0 FABB ORAL Take by mouth daily. Refills: 0 L-methylfolate 15 mg Tablet Commonly known as: DEPLIN Take 25 mg by mouth daily. Refills: 0 metFORMIN 500 mg tablet Commonly known as: GLUCOPHAGE Take 500 mg by mouth 2 times daily with meals. Refills: 0 methylPREDNISolone 4 mg Tablets, Dose Pack Commonly known as: MEDROL DOSPACK Day 1: (2) before breakfast, (1) after lunch, (1) after supper, (2) at bedtime Day 2: (1) before breakfast, (1) after lunch, (1) after supper, and (2) at bedtime Day 3: (1) before breakfast, (1) after lunch, (1) after supper, and (1) at bedtime Day 4: (1) before breakfast, (1) after lunch, and (1) at bedtime Day 5: (1) before breakfast and (1) at bedtime Day 6: (1) before breakfast. Signed by: Carmen Rangel Quantity: 21 Tablet Refills: 0 metoclopramide HCl 10 mg tablet Commonly known as: REGLAN Take 10 mg by mouth 4 times daily before meals and at bedtime. Refills: 0 ondansetron 4 mg Tablet, Rapid Dissolve Commonly known as: ZOFRAN ODT Take 1 Tablet (4 mg) by mouth every 8 hours as needed for Nausea/Emesis Dissolve tablet on top of tongue, then swallow with saliva.. Signed by: Keo Meza Quantity: 9 Tablet Refills: 1 VITAMIN 27-0.8 mg Tablet Take 1 Tab by mouth daily. Refills: 0 Generic drug: vit-iron fumarate-FA raNITIdine 75 mg Tablet Commonly known as: ZANTAC Take 75 mg by mouth 2 times daily. Refills: 0 christa-e 200 mg Tablet Take by mouth. Refills: 0 Generic drug: S-Adenosylmethionine sertraline 50 mg tablet Commonly known as: ZOLOFT Take 50 mg by mouth daily. Refills: 0 * UNISOM (DIPHENHYDRAMINE) ORAL Take by mouth. Refills: 0 * diphenhydrAMINE 50 mg Tablet Commonly known as: BENADRYL Take 50 mg by mouth every 6 hours as needed for Itching. Refills: 0 ursodiol 300 mg capsule Commonly known as: ACTIGALL Take 1 Capsule (300 mg) by mouth 2 times daily. Signed by: Carmen Rangel Quantity: 60 Capsule Refills: 1 * Notice: !!Potential duplicate medications found. Review medication list carefully. RICT DIRECTOR documented in this encounter Discharge Instructions * Discharge Instructions* Chasidy Ortega RN - 09/16/2016 10:20 AM DISTRICT DIRECTOR PRESCRIPTIONS Prescriptions given? Yes ACTIVITY/EXERCISE Recovery is a progressive process. It may take 6 to 8 weeks to return to pre- activity levels. Take time to rest each day. Limit visitors for the first few weeks. If you smoke you are advised to quit. Ask your health care provider for advice if you need assistance to stop smoking. Avoid second-hand smoke exposure and do not let people smoke in your home. BREAST CARE Wear a well fitting support bra, day and night. IF : ?? Wash breasts with warm water only during your daily shower ?? Do not wash breast before or after each feeding as this may cause dry, cracked nipples ?? For sore nipples, apply colostrum or breast milk to promote healing. Purified lanolin may also be applied to nipple and cover with breast pad. Lanolin does not need to be washed off prior to next feeding. ?? If breasts are engorged, regularly remove milk from the breasts every 1 1/2 - 3 hours (via or use of a hospital grade pump). For additional comfort, apply cold compresses for 10 - 15minutes as needed. ?? If using breast pads, change with each feeding ?? For advice call: IF BOTTLE FEEDING ?? Avoid breast stimulation, such as showers and pumping breasts ?? If breasts are painful and engorged, apply ice packs for 15 - 20 minutes to the breasts or underthe arms. VAGINAL DISCHARGE Bleeding diminishes in amount each day. The color will change from red to pink to yellow-white. Thedischarge may last 2 - 5 weeks. It may increase and become bright red with activity but rest shouldrelieve this. Do not douche or use tampons. HEMORRHOIDS If they appear in or at the time of delivery, they will slowly disappear. Use of Tucks, sitz baths, or local medication will give relief. Avoid constipation. ABDOMINAL CRAMPS After- pains may be felt when . Talk with your doctor about pain medication. MENSTRUATION You may start to menstruate in 6 - 10 weeks if you are not or within 6 months if you are . The first two periods are often irregular and may be very heavy with clots. It may take a few months to establish a regular cycle and it may be somewhat different in length from before . SEXUAL INTERCOURSE You may resume intercourse after approximately four weeks or when the perineal area is not tender and vaginal bleeding has subsided. control measures should be used when you resume sexual intercourse. You may shower daily. After every shower pat the incision dry. For ease of movement, hold a pillow against the incision when you get up from a lying or sitting position. SIGNS/SYMPTOMS TO REPORT Call your doctor if you have any of the following: Fever higher than 100 degrees or chills Fainting Frequency or burning with urination Heavy (more than 1 pad per hour), prolonged or foul smelling vaginal bleeding or discharge Swelling, redness, tenderness in breasts Swelling, redness, tenderness in legs Increasing drainage, redness, or pain from incision Severe mood swings Thoughts of harming yourself or your baby Suicide Prevention/Crisis Hotlines [facility] - Behavioral Health Intake Department [phone] [facility] Behavioral Health Intake Department is professionally staffed and offers free, confidential evaluations for anyone needing assistance with a psychiatric, behavioral or addictive disorder. Evaluations, as well as referrals to physicians or community resources, are available 24 hours aday, 7 days a week. [facility] [phone] ([phone]) [facility] is one of the nation???s [facility] suicide prevention and crisis hotlines. [facility] operates 24 hours a day, 7 days a week, 365 days a year. [facility] (local) [phone] (toll free) [facility] ([facility]) is a professionally staffed crisis response service. R provides expert behavioral health, crisis response, and outreach services, 24 hours a day, seven days a week to agencies and companies worldwide. National Suicide Prevention Hotline 7-180-659-TALK (8082) A free, 24-hour hotline available to anyone in suicidal crisis or emotional distress. Your call will be routed to the nearest crisis center to you. National [facility] 2-936-LQSFADH [place] [facility] ([facility]) [phone] Referral for Psychiatrist: [facility] [phone] or [facility] [phone] RICT DIRECTOR documented in this encounter Medications at Time of Discharge Medication Sig Dispensed Refills Start Date End Date ibuprofen (MOTRIN) 600 mg tablet Take 1 Tablet (600 mg) by mouth every 6 hours as needed for pain secondary to inflammation. 60 Tablet 1 09/16/2016 02/04/2017 oxyCODONE (ROXICODONE) 5 mg tablet Take 1 Tablet (5 mg) by mouth every 4 hours as needed. Max Daily Amount: 30 mg 40 Tablet 09/15/2016 01/07/2018 ibuprofen (MOTRIN) 600 mg tablet Take 1 Tablet (600 mg) by mouth every 6 hours. 240 Tablet 1 09/15/2016 01/07/2018 sertraline (ZOLOFT) 100 mg tablet Take 1 Tablet (100 mg) by mouth daily at bedtime. 30 Tablet 1 09/15/2016 02/04/2017 vit-iron fumarate-FA ( VITAMIN) 27-0.8 mg Oral Tab Take 1 Tab by mouth daily. 02/03/2017 documented as of this encounter Progress Notes * Chasidy Ortega RN - 09/16/2016 10:46 AM CST Pt. Will be leaving via w/c with infant. Home per private car. RICT DIRECTOR * Chasidy Ortega RN - 09/16/2016 10:17 AM CST Talked with Social service and they will be up to give Medicare information. RICT DIRECTOR * Sylvia Holcomb MD - 09/16/2016 7:40 AM CST OB Progress Note Subjective: Pain well controlled with oral medications. Tolerating regular diet and ambulation. Voiding without complaints. +flatus. No complaints this morning. Objective: Vitals: 09/15/16 0800 09/15/16 1100 09/15/16 1500 09/15/162011 BP: 130/85 125/65 124/52 129/66 BP Location: Patient Position (BP): Pulse: 82 80 83 87 Resp: 18 18 16 18 Temp: 98.2 ??F (36.8 ??C) 98.2 ??F (36.8 ??C) 98.4 ??F (36.9 ??C) 98.2 ??F (36.8 ??C) TempSrc: Oral Oral Oral Oral SpO2: 92% Weight: Height: HEENT: NC, AT Abd: Soft, firm fundus below umbilicus, incision clean/dry/intact Ext: No calf tenderness Active Problems: S/P section Cholestasis during Bipolar affective disorder, currently depressed, moderate CLOTILDE (generalized anxiety disorder) Assessment/Plan: POD# 3 s/p LTCS 1. Postop - Afebrile, VSS - Pain well controlled with PO meds - Increase ambulation - Continue routine post-op care 2. gHTN - Normotensive - Asymptomatic 3. Bipolar - Zoloft 100mg daily per Psych 4. PPH - 900cc CS EBL + 800cc PPH EBL - s/p addl pit, cytotec, hemabate x 2 - Hgb 12.1>11.1 - Asymptomatic Sylvia Holcomb MD PGY1 RICT DIRECTOR * Dania Alexis RN - 09/16/2016 4:55 AM CST Pain controlled with PO pain medication per pt. Pt appears in good spirits through the evening and night. Sleeping well between breast feedings. No concerns expressed. RICT DIRECTOR * Tricia Jamison RN - 09/15/2016 2:32 PM CST Pain well controlled with oral medications. Vital signs stable. Bleeding WNL. well. RICT DIRECTOR * Aminah Jaquez RN - 09/15/2016 1:02 PM CST Intake: Went by to assess pt for behavioral health issues. Pt sitting up in recliner, her was in room giving the baby a bottle. Pt is quiet and withdrawn, has flat affect. Pt denies current thoughts to harm herself. 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 Pt said she was on Wellbutrin but it was changed to Zoloft when she became . States she took Zoloft through out the . Pt reports she was on Depakote in the past, lost took that 3 years ago. Admits to a past suicide attempt bycutting her wrist and said she was hospitalized at [facility] at the age of 16. Pt denies being under the care of a psychiatrist at this time. Says her PCP prescribes her meds. Pt says she has resources for support groups and counselors from the on the unit. Said she was interested in a referral fora psychiatrist which will be included in her discharge summary. Pt did brighten up when talking about the Super Bowl. Said she's a [employer] fan and hopes to be discharged in time to watch the game at h ome. Dr. Owen to follow up with consult. Keshia Jaquez RN [id number] RICT DIRECTOR * Keo Meza MD - 09/15/2016 6:56 AM CST OB Progress Note Subjective: Pain well controlled. Tolerating regular diet and ambulation. Voiding without complaints. +flatus. Denies chest pain, shortness of breath, fevers, chills, or calf pain. No complaints thismorning. Objective: Vitals: 09/14/16 1900 09/14/16 2050 09/15/16 0050 09/15/16 0539 BP: 121/62 112/60 136/74 132/68 BP Location: Left arm Right arm Right arm Right arm Patient Position (BP): Sitting Supine Supine Supine Pulse: 78 88 84 80 Resp: 16 22 24 16 Temp: 98.2 ??F (36.8 ??C) 97.6 ??F (36.4 ??C) 97.6 ??F (36.4 ??C) 97.4 ??F (36.3 ??C) TempSrc: Oral Axillary Oral Axillary SpO2: 95% Weight: Height: HEENT: NC, AT Abd: Soft, firm fundus below umbilicus, incision clean/dry/intact Ext: No calf tenderness Active Problems: S/P section Cholestasis during Assessment/Plan: POD# 2 s/p LTCS 1. Postop - Afebrile, VSS - Begin oral pain medications when epidural is discontinued. Increase ambulation. - Continue routine post-op care 2. gHTN - normotensive this morning - asymptomatic - denies ANAND, vision changes, RUQ silvia 3. Bipolar - zoloft 50 mg PO qhs 4. PPH - 900cc CS EBL + 800cc PPH EBL - s/p addl pit, cytotec, hemabate x 2 - Hgb 12.1>11.1 - asymptomatic this morning Sabrina Brand MD OB-DIABETES SPECIALIST Resident, PGY-1 Pager#: [phone] Examined. As above RICT DIRECTOR * Elvis Owen MD - 09/14/2016 8:06 PM CST Tried to see pt this evening. Both intake nurse and OBGYN nurse informed this music writer pt would like to see psychiatrist tomorrow. Nurse reported pt was overwhelmed earlier today, currently she is acting appropriately. She does not need urgent psych help. Will see opt tomorrow evening. RICT DIRECTOR * Nathaly Dorado RN - 09/14/2016 7:02 PM CST Intake note. Arrived on Mother Baby unit and spoke with Vera's RN. Pt's RN said Vera was with family bonding with her new baby and would prefer to have Behavioral Health speak with her at a different time. Pt did have a high score on the [place] Depression Scale. Per RN-pt was anxious that a Beauty Parlor Cleaner and were called-thinking someone might try and take her baby away. Vera's RN told her we are here to heip her-not take her baby away. Will follow up at a different time for assessment. Nathaly Coleman [id number] RICT DIRECTOR * Ella Lara RN - 09/14/2016 5:30 PM CST Nathaly SANTIAGO from psyche consult here to see pt. However pt and decline to discuss issues right now. Requested to come back tomorrow. Pt family here. No further concerns at this time. Pt is cooperative and involve with self and care. RICT DIRECTOR * Tricia Jamison RN - 09/14/2016 1:11 PM CST Patient taking L-methylfolate (Deplin). Per [place] in Pharmacy medication not available. Requested that patient bring medication from home and RN send to Pharmacy for approval. Dr. Manzanares notified and aware. RICT DIRECTOR * Tricia Jamison RN - 09/14/2016 12:59 PM CST Call placed to Beauty Parlor Cleaner, Mahsa, to confirm that she was aware of patient's [place] score of 13. RICT DIRECTOR * Amisha Manzanares MD - 09/14/2016 6:20 AM CST OB Progress Note Subjective: Pain well controlled. Tolerating diet. Carver in place. + flatus. Denies lightheadedness, chest pain, shortness of breath, nausea, vomiting, fevers, chills, or calf pain. No complaints. Objective: Vitals: 09/13/16 1730 09/13/16 1900 09/14/16 0030 09/14/16 0455 BP: 127/68 120/74 136/60 115/62 BP Location: Right arm Right arm Right arm Patient Position (BP): Supine Sitting Sitting Pulse: 83 87 80 Resp: 20 18 20 20 Temp: 98 ??F (36.7 ??C) 98 ??F (36.7 ??C) 98.2 ??F (36.8 ??C) 98.3 ??F (36.8 ??C) TempSrc: Oral Oral Oral Oral SpO2: 97% 98% 97% Weight: Height: HEENT: NC, AT Heart : RRR, I/ systolic flow murmur Lungs: CTAB Abd: Soft, firm fundus below umbilicus, incision clean/dry/intact Ext: No calf tenderness Intake/Output Summary (Last 24 hours) at 09/14/16 0749 Last data filed at 09/14/16 0702 Gross per 24 hour Intake 6803.75 ml Output 3975 ml Net 2828.75 ml Active Problems: S/P section Cholestasis during Assessment/Plan: POD# 1 s/p LTCS 1. Postop - Afebrile, VSS - UOP borderline, hematuira -d/c Carver when UOP 0.5mg/kg/h and urine clear - Ambulate, tolerating regular diet - Continue routine post-op care 2. gHTN - normotensive this morning 3. Bipolar - zoloft 50 mg PO qhs 4. PPH - 900cc CS EBL + 800cc PPH EBL - s/p addl pit, cytotec, hemabate x 2 - Hgb 12.1>11.1 - asymptomatic this morning Amisha Manzanares MD PGY1 RICT DIRECTOR * Fareed Black RN - 09/14/2016 4:26 AM CST [place] is 13 and question #10 is hardly ever . IP Social consult ordered. Paged and notified Dr. Rossi about [place]. Dr. Rossi also wants carver in until urine is clear. RICT DIRECTOR * Fareed Black RN - 09/14/2016 2:18 AM CST Pt urine output has been inadequate, with 100ml in 5 hrs, 50 mls in [address] red[address] P[address] Rossi andordered NS 1L running at 200ml/hr. RICT DIRECTOR * Sadia Waldron RN - 09/13/2016 3:57 PM CST 1510 Pt called out for RN because she felt a gush of blood . RN repeated fundal check and noticed excessive bleeding and clots present; fundus 1 below u and firm. 1515 Dr. Jc paged; page returned updated on pt bleeding and in need of assessment [address] Manzanares to bedside to assess. cytotec 800 mg given. 1525 hemabate administered 1535 Ingrid RN placed second IV in R AC and bandar DIC and CBC; labs sent. Dr. Schmitz to bedside to assist. 1540 second dose of hemabate given 1545 partial bath, linen changed 1550 fundus 1 below, bleeding light. Per Dr. Schmitz pt will stay in recovery until 1630 to observe bleeding. RICT DIRECTOR * Aric Schmitz MD - 09/13/2016 3:43 PM CST Hemorrhage Called to room for hemorrhage post . S/p RLTCS at 36w for cholestasis, gHTN. Large uterus noted, though firm. Evacuated for 200cc with additional 600cc blood and clots passed prior to me entering. Throughout evaucation, pulse 90s, BPs 120s/80s, pt reporting slight nausea but no lightheadedness or dizziness. Received an additional 20u pitocin, cytotec 800 MN, hemabate. To repeat hemabate in 15m Second IV started. CBC, DIC sent during evacuation. Dr. Meza updated Uriah Schmitz MD RICT DIRECTOR * Lenore Caor RN - 09/12/2016 12:31 PM CST Pre-Operative Patient Education: Today's Date: 09/12/2016 Patient: Vera Vitale is a 31 y.o. female : 1985 Confirms understanding of the following patient education: [x] Date and time of scheduled procedure 09/13/2016 @ 1230 [x] Personal belongings policy-leave all jewelry at home [x] Arrival time and location 1030 [x] Oral intake instructions per OB Anesthesia No solid food after 0530, NPO after 0930 [x] Consult with Dr. Meza about taking home medications prior to surgery Allergic to Adhesives No Latex Allergy Opportunity provided for questions. Hr Consultant required: N/A Lenore Caro RN RICT DIRECTOR documented in this encounter H&P Notes * Radha Jc MD - 09/13/2016 11:44 AM CST OB History & Physical HPI: Vera Vitale is a 31 y.o. @ 36w4d who presents for repeat C- section. Her has been complicated by gHTN and cholestasis. Patient reports good movement, denies contractions, vaginal bleeding, or leakage of fluid. No complaints. Her primary OB is Keo Meza MD. ROS: As above. Denies nausea, vomiting, chest pain, shortness of breath, headache, or vision symptoms. OB Hx: OB History Para Term AB SAB TAB Ectopic Multiple Living 12 1 1 0 10 9 0 1 0 1 # Outcome Date GA Lbr Sameer/2nd Weight Sex Delivery Anes PTL Lv 12 Current 11 SAB 09/2015 SAB 10 Ectopic 07/2015 ECTOPIC 9 SAB 03/2014 SAB 8 SAB 07/2013 SAB 7 SAB 09/2012 SAB 6 SAB 04/2012 SAB 5 Term 11/21/10 37w0d 3147 g (6 lb 15 oz) M CS-LTranv EPI N Y Complications: Failure to Progress in First Stage,Preeclampsia Comments: No observed anomalies 4 2009 SAB 3 SAB 2008 SAB 2 SAB 2006 SAB 1 SAB 2004 SAB DIABETES SPECIALIST Hx: denies history of abnormal Pap smears or STIs. PMHx: Bipolar, Anxiety/Depression, high cholesterol PSHx: C/S x1, D&C x1, laparoscopic salpingectomy, lymph node dissection, cholecystecomy, ear surgery FHx: Negative for breast, colon, or ovarian cancer. Negative for genetic tendencies, frequent miscarriage or bleeding disorders SHx: denies tobacco, alcohol, or illicit drug use Medications: No current facility-administered medications on file prior to encounter. Current Outpatient Prescriptions on File Prior to Encounter Medication Sig Dispense Refill ??? metoclopramide HCl (REGLAN) 10 mg tablet Take 10 mg by mouth 4 times daily before meals and at bedtime. ??? diphenhydrAMINE (BENADRYL) 50 mg Tablet Take 50 mg by mouth every 6 hours as needed for Itching. ??? ursodiol (ACTIGALL) 300 mg capsule Take 1 Capsule (300 mg) by mouth 2 times daily. 60 Capsule 1 ??? methylPREDNISolone (MEDROL DOSPACK) 4 mg Tablets, Dose Pack Day 1: (2) before breakfast, (1) after lunch, (1) after supper, (2) at bedtime Day 2: (1) before breakfast, (1) after lunch, (1) after supper, and (2) at bedtime Day 3: (1) before breakfast, (1) after lunch, (1) after supper, and (1) at bedtime Day 4: (1) before breakfast, (1) after lunch, and (1) at bedtime Day 5: (1) before breakfast and (1) at bedtime Day 6: (1) before breakfast. 21 Tablet 0 ??? aspirin (KESHA CHEWABLE) 81 mg Tablet, Chewable Take 81 mg by mouth daily. ??? DIPHENHYDRAMINE HCL (UNISOM, DIPHENHYDRAMINE, ORAL) Take by mouth. ??? ondansetron (ZOFRAN ODT) 4 mg Tablet, Rapid Dissolve Take 1 Tablet (4 mg) by mouth every 8 hours as needed for Nausea/Emesis Dissolve tablet on top of tongue, then swallow with saliva.. 9 Tablet 1 ??? sertraline (ZOLOFT) 50 mg tablet Take 50 mg by mouth daily. ??? L-methylfolate (DEPLIN) 15 mg Tablet Take 25 mg by mouth daily. ??? CYANOCOBALAMIN/FA/PYRIDOXINE (FABB ORAL) Take by mouth daily. ??? vit-iron fumarate-FA ( VITAMIN) 27-0.8 mg Oral Tab Take 1 Tab by mouth daily. ??? docusate sodium (COLACE) 100 mg capsule Take 1 Capsule (100 mg) by mouth 2 times daily. 60 Capsule 0 Allergies Allergen Reactions ??? Adhesive Other (See Comments) Skin irritation Physical Exam: Visit Vitals ??? Temp 98.3 ??F (36.8 ??C) (Oral) ??? Resp 18 ??? Ht 5' 6 (1.676 m) ??? Wt 105.2 kg (232 lb) ??? LMP 06/15/2015 ??? No ??? BMI 37.45 kg/m2 General: well-developed, well-nourished female in NAD HEENT: NCAT, moist mucus membranes Heart: acyanotic Lungs: unlabored respirations Abdomen: gravid, NT Extremities: no edema or calf tenderness FHR: 135, mod variability, +accels, no decels Eva: quiet Assessment/Plan: 31 y.o. @ 36w4d admitted for repeat 1. Indication for : previous 2. status reassuring: NST reactive 3. Cholestasis of - Bile acids 13.61, ursodeoxycholic acid 6.70 - On Ursodiol - Followed by MFM 4. GHTN - BP 142/85 - 24h urine 291 - Asymptomatic - Labs wnl 09/06 with exception of ALT of 52 5. labs: B, Rub imm / HIV neg / RPR NR / HepB neg 6. The risks, benefits, indications, and alternatives of were reviewed with the patient. Informed consent was obtained. All questions were answered. Will proceed with as planned. 5. SCDs and pre-op antibiotics for prophylaxis 6. RN discussed with Dr. Derrick Jc MD PGY-2 RICT DIRECTOR documented in this encounter Consult Notes * Elvis Owen MD - 09/15/2016 6:19 PM CSTAssociated Order(s): IP CONSULT TO PSYCHIATRY Psychiatric Consultation Note PATIENT: Vera Vitale AGE: 31 y.o. CSN: [id number] Date of : 1985 Admit date: 09/13/2016 Consult date: 09/15/2016 Sources of Information: Face to face interview of patient. Review of medical record. Discuss with treatment team. Reason of consult: Depression, Medication management. Diagnosis: [place] I: Bipolar disorder current depressed. Anxiety disorder. [place] II:None [place] III: Past Medical History Diagnosis Date ??? Anxiety Zoloft ??? Bipolar affective disorder ??? Depression bipolar ??? High cholesterol ??? MRSA (methicillin resistant Staphylococcus aureus) 08/2009 cysts on leg, never cultured-told it was staph and was given medication [place] IV: financial, health and post . [place] V : GAF 60 CC: I felt depressed recently. I do not feel suicidal now. HPI Vera Vitale is a 31 y.o. @ 36w4d. She has hx of BAD and CLOTILDE. She was admitted on 2016 for . Pt reported past hx of bipolar disorder and recently depressed, she also reported past hx of suicidal thoughts with suicide attempt. Primary team requested psych consult for evaluation and medicationmanagement. During the interview with this music writer: Patient reported BAD and CLOTILDE since teenage. She tried multiple medications, stated that she stopped other meds except Zoloft during . Currently she is moderately depressed, no SI , no manic episode recently. She denied AH VH. Denied substance use. Discussed about medication and breast feeding. She reported that she plan to breast feed the baby. She just want to increase Zoloft for her depression. She does not want to take other mood stabilizerat this time. She shows good ipllai to the baby, she denied any thoughts to hurt the baby. She reported past hx of depression, she stated she had no SI HI in that episode, never thought the bay was an burden. Psychosocial Trauma History: Denied. Please refer to the following summary for any details. Summary of the psychiatric symptoms: Main problems (locations): [x] Depression, [x] Anxiety, [] Lacy/hypomania , [x] Mood disturbance, [] Behavioral disturbance, [] agitation, [ ] Psychosis. Severity: [] Mild , [x] Moderate , [] Severe. Onset, duration and developement: [x] Chronic for years and recurrent. Worsening in [] Days, [x] Weeks, [] Months. Stressors or triggers: [] Family stress, [] work stress, [x] financial stress, [] relationship disturbance or marital issue, [] Substance use, [] Alcohol use. [] Health issues. [] Lost of beloved one. [] Unemployment. [] Homelessness. [x] Associated Symptoms: Sleep: [x] Fair. [] Difficulty in falling asleep. [] Difficulty in maintaining sleep or interruptedsleep, [] decreased need of sleep. [] Sleep apnea. Appetite: [] Good. [x] Fair. [] Poor. [] NPO. [] Overeat. Energy: [] Normal. [x] Fair. [] low. [] Increased. Anhedonia: [] none, [x] Mild , [] Moderate , [] Severe. Concentration: [x] Good. [] Fair. [] Poor. Suicidal ideation: [x] Denied. [] reported. [] Endorsed. [] Vague. [] With Plan/ Intent. [] no Plan/ Intent. Homicidal ideation: [x] Denied. [] reported. [] Endorsed [] Vague. [] Plan. [] Intent. Hallucinations: [x] Denied. [] Auditory hallucination [] with command [] Visual hallucinations. [] other Delusions: [] Yes [x] Denied. Paranoia: [] Yes [x] No Substance use history: Smoking: [] Never smokes. [] 1 PDD. [x] Previous smoker. Alcohol: [] Never use. [x] Social use. No DWI. No withdrawal. [] Dependence /abuse. Street drugs: Denied. Previous Rehab. Programs: [] Yes. [x] Denied. Past psychiatric history: Hx of [x] depression. [x] anxiety. [x] bipolar disorder. [] Schizophrenia. [] Personality disorder. [] Substance use [] alcohol use. O/P Psychiatrist/therapists: [x] No . [] Yes. Previous admissions: [x] Yes. [] No. Previous suicide attempts: [x] Yes. [] No. Past Medication History: Refer to [facility] medication list. Summary of social and family history: Living Situation: [x] With family , [] With BF/GF [] By self. [] skilled nursing. [] RCF [] homelessness. ?? Marital History: [x] , [] Single [] engaged, [] , [] . [] . ?? Children: 2 ?? Occupation: [] Unemployed. /SSDI [x] Unemployed, [] employed [] temporary job. [] retired. ?? Education: [] GED, [] HS diploma, [x] some college, [] bachelor degree, [] master degree, [] PhD ?? Protestant: [x] none [] Jain [] Rastafarian [] Confucianist, [] sikh, [] others. ?? Sexual Orientation: Heterosexual. ?? Abuse: [x] None, [] Emotional, [] Sexual, [] Physical [] childhood [] adulthood. ?? Legal: [x] None [] probation [] Parol [] pending charge. ?? Family: Reported family hx of : Father , grandma, brother bipolar d/o ?? Completed Suicide of family memeber: no Social History Social History ??? Marital status: [...] control/ protection: None Other Topics Concern ??? None Social History Narrative Allergies Allergen Reactions ??? Adhesive Other (See Comments) Skin irritation Past Medical History Diagnosis Date ??? Anxiety Zoloft ??? Bipolar affective disorder ??? Depression bipolar ??? High cholesterol ??? MRSA (methicillin resistant Staphylococcus aureus) 08/2009 cysts on leg, never cultured-told it was staph and was given medication Prescriptions Prior to Admission Medication Sig Dispense Refill Last Dose ??? cetirizine (ZyrTEC) 10 mg tablet Take 10 mg by mouth daily. 09/12/2016 at Unknown time ??? raNITIdine (ZANTAC) 75 mg Tablet Take 75 mg by mouth 2 times daily. 09/12/2016 at Unknown time ??? metFORMIN (GLUCOPHAGE) 500 mg tablet Take 500 mg by mouth 2 times daily with meals. 09/13/2016 atUnknown time ??? S-Adenosylmethionine (christa-e) 200 mg Tablet Take by mouth. 09/12/2016 at Unknown time ??? metoclopramide HCl (REGLAN) 10 mg tablet Take 10 mg by mouth 4 times daily before meals and at bedtime. Past Month at Unknown time ??? diphenhydrAMINE (BENADRYL) 50 mg Tablet Take 50 mg by mouth every 6 hours as needed for Itching. Past Month at Unknown time ??? ursodiol (ACTIGALL) 300 mg capsule Take 1 Capsule (300 mg) by mouth 2 times daily. 60 Capsule 07/13/2017 at Unknown time ??? methylPREDNISolone (MEDROL DOSPACK) 4 mg Tablets, Dose Pack Day 1: (2) before breakfast, (1) after lunch, (1) after supper, (2) at bedtime Day 2: (1) before breakfast, (1) after lunch, (1) after supper, and (2) at bedtime Day 3: (1) before breakfast, (1) after lunch, (1) after supper, and (1) at bedtime Day 4: (1) before breakfast, (1) after lunch, and (1) at bedtime Day 5: (1) before breakfast and (1) at bedtime Day 6: (1) before breakfast. 21 Tablet 0 Past Month at Unknown time ??? aspirin (KESHA CHEWABLE) 81 mg Tablet, Chewable Take 81 mg by mouth daily. 09/12/2016 at Unknowntime ??? DIPHENHYDRAMINE HCL (UNISOM, DIPHENHYDRAMINE, ORAL) Take by mouth. Past Week at Unknown time ??? ondansetron (ZOFRAN ODT) 4 mg Tablet, Rapid Dissolve Take 1 Tablet (4 mg) by mouth every 8 hours as needed for Nausea/Emesis Dissolve tablet on top of tongue, then swallow with saliva.. 9 Tablet 1 Past Week at Unknown time ??? sertraline (ZOLOFT) 50 mg tablet Take 50 mg by mouth daily. 09/12/2016 at Unknown time ??? L-methylfolate (DEPLIN) 15 mg Tablet Take 25 mg by mouth daily. Past Week at Unknown time ??? CYANOCOBALAMIN/FA/PYRIDOXINE (FABB ORAL) Take by mouth daily. Past Month at Unknown time ??? vit-iron fumarate-FA ( VITAMIN) 27-0.8 mg Oral Tab Take 1 Tab by mouth daily. 09/12/2016 at Unknown time ??? docusate sodium (COLACE) 100 mg capsule Take 1 Capsule (100 mg) by mouth 2 times daily. 60 Capsule 0 > Month at Unknown time Current Facility-Administered Medications Ordered in [facility] Medication Dose Route Frequency Provider Last Rate Last Dose ??? ibuprofen (MOTRIN) tablet 600 mg 600 mg Oral q 6 hour Amisha Brand MD 600 mg at 09/15/16 1200 ??? sodium chloride 0.9% infusion IV Gisele Fuller MD 125 mL/hr at 09/14/16 0830 ??? oxyCODONE (ROXICODONE) tablet 5 mg 5 mg Oral q 4 hour PRN Keo Meza MD 5 mg at 09/15/16 1420 ??? acetaminophen (TYLENOL) tablet 1,000 mg 1,000 mg Oral q 8 hour Keo Meza MD 1,000 mg at 09/15/16 1420 ??? oxyCODONE (ROXICODONE) tablet 5 mg 5 mg Oral q 3 hour PRN Keo Meza MD ??? nalbuphine (NUBAIN) injection 2 mg 2 mg IV q 3 hour PRN Daniela Hayes DO ??? oxytocin in lactated ringers (PITOCIN) 20 unit/1,000 mL infusion Solution IV Continuous PRN Keo Meza MD 999 mL/hr at 09/13/16 1520 999 mL/hr at 09/13/16 1520 ??? methylergonovine maleate (METHERGINE) 0.2 mg/mL (1 mL) injection 0.2 mg 0.2 mg IM q 15 min PRN Keo Meza MD ??? carboprost tromethamine (HEMABATE) 250 mcg/mL injection 1 mL 250 mcg IM q 15 min PRN Keo Meza MD 1 mL at 09/13/16 1544 ??? metFORMIN (GLUCOPHAGE) tablet 500 mg 500 mg Oral BID Meals Radha Jc MD 500 mg at 09/15/16 0819 ??? lactated ringers solution IV Continuous Radha Jc MD Stopped at 09/14/16 0233 ??? naloxone (NARCAN) 0.4 mg/mL injection 0.1 mg 0.1 mg IV See Admin Notes Radha Jc MD ??? lanolin (LANSINOH) 100 % topical ointment Ointment Topical See Admin Notes Radha Jc MD 7 Gram at 09/14/16 2044 ??? simethicone chewable tablet 80 mg 80 mg Oral q 6 hour PRN Radha Jc MD 80 mg at 09/14/16 1626 ??? ondansetron (ZOFRAN ODT) tablet 4 mg 4 mg Oral q 6 hour PRN Radha Jc MD ??? prochlorperazine maleate (COMPAZINE) tablet 10 mg 10 mg Oral q 6 hour PRN Radha Jc MD ??? diphenhydrAMINE (BENADRYL) injection 12.5 mg 12.5 mg IV q 2 hour PRN Radha Jc MD ??? vit-iron fumarate-fa (HECTOR ) 28 mg iron- 800 mcg per tablet 1 Tablet 1 Tablet Oral Daily Radha Jc MD 1 Tablet at 09/15/16818 ??? magnesium hydroxide (MILK OF MAGNESIA) oral suspension 30 mL 30 mL Oral HS PRN Radha Jc MD ??? docusate sodium (COLACE) capsule 100 mg 100 mg Oral BID Radha Jc MD 100 mg at 09/15/16818 ??? sertraline (ZOLOFT) tablet 50 mg 50 mg Oral Daily BEDTIME Radha Jc MD 50 mg at 09/14/162044 No results found for this visit on 09/13/16 (from the past 24 hour(s)). Active Hospital Problems Diagnosis ??? S/P section ??? Cholestasis during Resolved Hospital Problems Diagnosis Date Resolved No resolved problems to display. Patient Strengths Potential for Insight x [place] in ADL's Good Verbal Skills Motivation for Treatment x Cognitively Intact Good Judgment x Able to Express Needs Good Social Skills Good Intellectual Ability Good Physical Health Patient Liabilities Poor Physical Health Substance /alcohol Cognitive Impairment Unmotivated Language/Speech Difficulties Socially Isolated Physical Limitations Limited/Lack of Insight Alcohol use x Limited Coping Skills Review of Systems: General: patient denies any weakness, fatigue, fever, chills or night sweats Hematopoetic: patient denies anemia, bleeding or easy brusibility 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 Cardiovascular: Patient denies chest pain, edema or palpitations Respiratory: patient denies any shortness of breath, sputum production. GI: patient denies any nausea, vomiting, , constipation or abdominal pain, no diarrhea. : Patient denies any dysuria, frequency, urgency or hematuria Muskuloskeletal: patient denies any pain, weakness or numbness. Normal strength and tone. No significant atrophy. Integumentary: patient denies any rash, lesions, or itching Endocrine: patient denies ploydipsia, polyphasia or nervousness. Denied abonormal hot or cold intolerance. Physical Exam: Visit Vitals ??? BP 124/52 ??? Pulse 83 ??? Temp 98.4 ??F (36.9 ??C) (Oral) ??? Resp 16 ??? Ht 5' 6 (1.676 m) ??? Wt 105.2 kg (232 lb) ??? LMP 06/15/2015 ??? SpO2 95% ??? Yes ??? BMI 37.45 kg/m2 Appearance: Well-appearing, no pain distress, well-nourished, HEENT: Normocephalic, atraumatic, EOMI, PERRLA. Multiple dental caries Neck: Supple, full range of motion. No lymphadenopathy, no JVD or thyromegaly. Cardiovascular: s1,s2 Regular rate and rhythm without murmurs, rubs or clicks. Pulmonary: Symmetrical movement of chest. GI / : Abdomen soft, nontender, nondistended. Bowel sounds normoactive. Negative hepatosplenomegaly. Extremities: No clubbing, cyanosis or edema. Dorsalis pedis pulses palpable bilaterally. MS: Normal strength, ROM and tone. No significant atrophy. Skin: Warm and dry, color normal Neurologic: Alert and oriented times 3. Cranial nerves 2-12 are intact. No focal deficits. MSE: Sensorium : Alert and OX3. General appearance and behaviors: Fair grooming and hygiene, withdrawn, tired, cooperative. Eye contact: Reduced . Psychomotor activity: No agitation or aggression. No psychomotor retardation. Mood: Mild anxious, depressed . Affect: Constricted range, not reactive. Cognition: Fair concentration. Intact memory. Intellect: Average. Speech: No aphasia or language difficulty. Well organized. Soft and slow. Thought process: Hesitant, linear. Thought contents: Some negative and depressive thoughts. Suicidal Ideation: denies. Homicidal Ideation: denies. Perception disturbance: Denied auditory or visual hallucination. Insight and judgement: limited / Fair. Impulse control: fair. Recommendations: Support and reassurance were provided. I addressed patient's any psychosocial stressors that may have precipitated the current condition. Pharmacologically, I will start the patient on the following medications: Increase Zoloft to 100mg daily for depression. Add Benadryl 25mg q6h prn for anxiety or irritablity. Necessity for transfer to inpatient psychiatric care: NO. Please refer patient to an outpatient psychiatrist at discharge. I will continue to follow this patient as needed. Please call with questions. Thank you for consulting us. Time spent: 60 minutes. Treatment options and alternatives reviewed with patient and agrees with the above plan. Greater than 50 % patient time and floor time providing counseling and/or coordination of care. ELVIS OWEN MD RICT DIRECTOR * Kal Perez RN - 09/15/2016 5:11 PM CST Images from the original note were not included. Kal Perez, RN Registered Nurse Signed Consults Date of Service: 09/15/2016 ??4:58 PM []Hide copied text []Hover for attribution information note. Mom reports is going well. Baby feeds at breast and then she gives supplement of formula or pumped milk. She started giving supplement because she didn't think she had any milk so she thought baby needed supplement.Blood sugars were all wnl and no longer being checked.Reassurance given that its normal for Moms to have small volume of colostrum not milk initially because baby has small stomach, not ready for lg amt of milk. Reassured also we don't usually recommendbabies need supplement unless they have problems maintaining blood sugar or the have lost too much wt. Her baby doesn't have either issue so no need to supplement but if it reassuring to her, she might want to just let baby feed at breast and give pumped milk/colostrum to add extra volume for baby.Encouraged skin to skin. Reviewed supply and demand, explaining how giving formula supplement slowsher milk supply. Offered to observe a feeding and ph number left on board for her to call when babyis giving feeding cues. ?? Time 1286-2177 RICT DIRECTOR documented in this encounter OR Notes * Anesthesiology - Isaias Oleary DO - 09/14/2016 7:02 PM CST Discussed post-op pain management plan with attending anesthesiologist. Epidural pulled in accordance with prescribed plan. Epidural pulled due to dressing failure Tip was intact. Site is clean dry and without erythema. Isaias Oleary DO 09/14/2016 7:02 PM RICT DIRECTOR * Anesthesiology - Filomena Ruelas MD - 09/14/2016 8:22 AM CST Post - Operative Pain Service Note Post op day #1. Epidural 09/13/16 1215-Rate: 2 (09/14/16 0702) Epidural medication: Demerol Vitals: Pulse: 80 (09/14/16 0030) BP: 115/62 (09/14/16454) Resp: 20 (09/14/16454) Temp: 36.8 ??C (09/14/16454) VPS Pain Rating: Rest: 3 (09/14/16518) Description: Quality: aching (09/14/16 0148) Sedation: no Pruritis: no Nausea/vomitting: no Plan: No change in treatment. Will continue to follow. Filomena Petit MD 09/14/2016 8:22 AM RICT DIRECTOR * Anesthesiology - Daniela Hayes DO - 09/14/2016 7:12 AM CST OB Anesthesia Post-Operative Assesment 09/14/2016 7:12 AM Vera Vitale, status post regional anesthesia for section. Patient seen and evaluated: Respiratory Function Resp: 20 (09/14/16454) SpO2: 97 % (09/14/16454) Able to breathe and cough freely Able to maintain O2 saturation greater than 92% on room air Cardiovascular Function Heart Rate: 70 bpm (09/14/16454) BP: 115/62 (09/14/16454) BP within 20% of preanesthetic level Mental Status, Neuro Fully awake Able to move 4 extremities voluntarily. No focal sensory deficits or weakness. Temperature Temp: 36.8 ??C (09/14/16454) Pain Pain Rating: Rest: 3 (09/14/16518) Presence of Pain: complains of pain/discomfort (09/14/16518) Postoperative Hydration Intake/Output Summary (Last 24 hours) at 09/14/16711 Last data filed at 09/14/16 07 Gross per 24 hour Intake 6803.75 ml Output 3725 ml Net 3078.75 ml Nausea and Vomiting Able to drink fluids, no nausea, no vomiting Epidural Site Visually examined through clear dressing. No erythema, excess drainage, or tenderness to palpation Dressing is intact and well adhered. Narrative No apparent Anesthesia related complications Daniela Hayes DO 09/14/2016 7:12 AM RICT DIRECTOR * Operative Report - Radha Jc MD - 09/13/2016 1:42 PM DISTRICT DIRECTOR Note Section Operative Note Patient: Vera Vitale / 31 y.o. / female : 1985 Date of Procedure: 09/13/2016 Time: Information for the patient's : Olvin Vitale [[id number]] Delivery Time: 1301 (09/13/16 1318) Preoperative Diagnosis: 1. Intrauterine at 36w4d 2. previous 3. Cholestasis of 4. gHTN Postoperative Diagnosis: Same Procedure: Repeat Low Transverse Section via Pfannensteil Surgeon: Keo Meza MD Loom Mechanic: Radha Jc MD PGY-2 Anesthesia: Combined spinal-epidural Complications: None EBL: 900cc Fluids: Lactated Ringers Urine Output: Clear Indications: 31 y.o. @ 36w4d with complicated by cholestasis and gHTN presentedfor rLTCS. Findings: male infant in cephalic presentation. Clear amniotic fluid. Apgars Information for the patient's : Olvin Vitale [[id number]] 1 Minute Score: 7 (09/13/16 1317) 5 Minute Score: 9 (09/13/16 1317) Weight Information for the patient's : Gissel Vitaleista [[id number]] Weight: 3515 g (7 lb 12 oz) (09/13/16 1317) Nuchal cord: none Normal uterus, tubes, and ovaries. Procedures: The patient was taken to the operating room where she was placed in the dorsal supine position witha leftward tilt. The electronic monitor was placed and heart rate was found to be reassuring. She was then prepped and draped in the normal sterile fashion, and anesthesia was found to beadequate. A Pfannensteil skin incision was then made with the scalpel and carried through to the underlying layer of fascia with the scalpel. The fascia was incised in the midline and the incision extended laterally with the Cabezas scissors. The superior aspect of the fascial incision was then grasped with Hakan clamps, elevated, and the underlying rectus muscles dissected off bluntly and with Cabezas scissors. Attention was then turned to the inferior aspect of the fascial incision, which in similar fashion was grasped, elevated, and the rectus muscles dissected off. The rectus muscles were thenseparated in the midline, and the peritoneum entered bluntly. The peritoneal incision was extended superiorly and inferiorly with good visualization of the bladder. With the bladder blade providing retraction and visualization, the lower uterine segment was incised in a transverse fashion with the scalpel. The uterine incision was then extended laterally digitally. The bladder blade was removed and the infant's head was elevated and delivered atraumatically. The remainder of the was then delivered without difficulty, and the 's nose and mouth were suctioned with the bulb suction. The umbilical cord was doubly clamped and cut. The infant was then handed off to the waiting nursing staff. Specimens then obtained: Cord blood donation. The placenta was then removed manually and the uterus was exteriorized and cleared of all clots anddebris. The uterine incision was repaired with 0-Biosyn in a running, interlocked fashion. A secondlayer of the same suture imbricated and obtained excellent hemostasis. The posterior cul-de-sac wascleared of all clots and debris. The uterus was returned to the abdomen. The gutters were then cleared of all clots and debris, and the uterine incision was visualized to be hemostatic. The peritoneum was closed with 3-0 Polysorb. The rectus muscles were reapproximated with an interrupted stitch of3-0 Polysorb. The fascia was reapproximated with 0-Polysorb in a running fashion. The subcutaneous tissues were irrigated with warmed normal saline, and hemostasis was assured. Subcutaneous tissues were reapproximated with 3-0 polysorb in a running unlocked fashion. The skin was closed with 4-0 Biosyn in a subcuticular stitch. Fundal pressure was applied to express remaining intrauterine clots and debris. The patient tolerated the procedure well. Sponge, lap, and needle counts were correct times three. Appropriate antibiotics were given for prophylaxis prior to beginning the procedure. The patient wastaken to the recovery room in stable condition. Specimens: cord blood donation Radha Jc MD PGY-2 RICT DIRECTOR Associated attestation - Keo Meza MD - 09/13/2016 2:17 PM DISTRICT DIRECTOR I performed this entire csection with the assistance of Dr. Radha Jc documented in this encounter Miscellaneous Notes * Care Plan - Therese Parekh - 09/17/2016 7:29 PM CST Problem: Discharge Planning Goal: Identify discharge needs upon admission and through discharge Spoke to pt on phone today regarding possible need of WIC program. Pt is interested in enrolling with WIC program. Provided pt with phone number of local [facility] office ( [facility] ), and instructed her to call for an appointment. [facility] Medical Referral Forms filled out for Mom and Baby, will fax to [place] office. Pt voices understanding. RICT DIRECTOR * Care Plan - Geraldine Rasmussen LMSW - 09/14/2016 3:19 PM CST Identify discharge needs upon admission and through discharge Progressing Initial Discharge Planning Assessment completed. Introductory Care Management letter given. Care Management visited with baby's mother and FOB, and discussed Care Management role and discharge planning. Permission granted by patient to speak to everyone present in the room. Primary Emergency Contact: ELIAZAR VITALE, Baby will reside at [address] [place] [address] [place] [address] with mother, FOB and 5 year old brotherat discharge. Father of Baby is involved. Prior to , family had no involvement or services in home. Mother of baby has WIC. Mother of baby has breast pump. Family has crib and car seat. Art Conservator verified as Dr. Ana Rodriguez Baby mother's insurance verified as Payor: MEDICARE / Plan: MEDICARE PART A AND B / Product Type: Medicare / and baby will be added to plan of [place] Medicaid. Discussed discharge goals and possible discharge needs including home with family assist. Mother does not have employment outside of the home. Eliazar MAN, works at a [employer] is currentlyoff work due to the season. DONOVAN will resume work late September/early October. Social work consult received due to patient???s [place] score. BETTYE met with pt. to discuss score and provide post education. BETTYE requested permission to speak in front of spouse, which was granted by the patient. Patient disclosed an extensive depression history that included self- harm, suicidal ideation and at least one active attempt of suicide. Patient has been prescribed Zoloft to ld t depression. 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 Patient???s familial history of depression includes: none provided. Patient's history of self harm includes: cutting on wrists and/or forearms. Patient described cutting as superficial not severe. Patient does have thoughts of self harm at this time but denies acting on any recent urges. Patient disclosed she has been hospitalized as a result of self-injury. Patient did not report how long ago the hospitalization was, nor where she was hospitalized. Patient reported attempting suicide at least one time by slitting her wrists and stated that was the only time she has tried it, tried it . Patient disclosed she regularly contemplates suicide but deniesrecent acts on thoughts/urges. Patient previously utilized therapeutics interventions to treat depression but discontinued regularly scheduled therapy appointments November 2015 and has not resumed. Patient???s support network is maternal and paternal family. Bettye notified attending RN and attending MD.Bettye called to request consult to Dr. Owen. BETTYE educated patient on signs/symptoms of PPD and recommended that she also review these with a trusted loved one and give them permission to speak with patient should they notice her exhibiting symptoms. SW also provided a list of counselors in the [place] area who are qualified to treat PPD as well as the Warmline and directions for use. SW provided pt with new parent resources including Nurses for Newborns information, post- depression screening tools, and a list of local parenting classes/assistance programs. Care Management contact information provided. Care Management will continue to follow and assist asneeded. Sw to follow. Geraldine Rasmussen ASSISTANT BANQUET MANAGER, WHEEL PRESSER [id number] RICT DIRECTOR * Care Plan - Fareed Black RN - 09/14/2016 5:45 AM CST Pain well controlled. Carver didn't come out after 12 hrs because of poor urine output and the colorwas red. Paged MD and got order for NS 1L after LR completed. MD wants carver stay in until urine turns clear. VSS, light lochia. [place] was 13, SS consult in and MD notified. RICT DIRECTOR * Care Plan - Maddi Serrano RN - 09/13/2016 6:41 PM CST Pain level being managed at a 2 Positive bowel sounds, tolerated clear liquids, advanced diet to regular. RICT DIRECTOR * Care Plan - Genna Landin RN - 09/13/2016 1:39 PM CST SLCBB ID NMDP ID Reviewed by/Date: Disposition Tech/Date: -63= Total Weight Cord Blood Volume Labor Room: [facility] Tech/Date: [place] Cord [facility] at [facility] [phone] or [phone] FAX [phone] [address] LABOR AND DELIVERY DATA Mother's Name: Vera Vitale Mother's Date of : 1985 Mailing Address of Mother of Baby: [facility] [place] [address] Patient Location: [address] [place] [address] Information for the patient's : Olvin Vitale [[id number]] Bristle Machine Operator/Certified Nurse Taxicab Driver: Alessandro Meza MD (09/13/161317) Identity of donor above confirmed by verifying two identifiers (name, birthdate): yes Genna Landin RN Name of person who collected maternal samples of blood: Roberta Waldron RN Person completing labor and delivery data: Genna Landin RN Within one hour prior to collection of the 3 maternal tubes, did the mother receive more than 2,000ml of IV fluids: NO Were any abnormal or remarkable findings detected on mother's physical assessment: yes If yes, please comment: Cholestasis in Information: EGA: 36w4d Estimated Date of Delivery: 10/07/16 NOTE: Date/Time information in parentheses ( ) is documentation date/time Labor: no If Yes, Length of Labor: Not Applicable hours Labor Induced: no Intrapartum Events: None (09/13/161316) Blood Transfusion in Labor: no Membrane Rupture Date: 09/13/16 (09/13/161315) Membrane Rupture Time: 1300 (09/13/161315) Amniotic Fluid Color: clear (09/13/161316) Odor: normal (09/13/161316) Delivery Date : 09/13/16 (09/13/161315)Delivery Time : 1301 (09/13/161315) Number of Infants Delivered: 1 (CORD BLOOD COLLECTIONS ARE FOR WU BIRTHS ONLY) Patient Vitals for the past 72 hrs: Temp 09/13/16 1058 98.3 ??F (36.8 ??C) MATERNAL LAB DATA Maternal labs if manually entered by nursing: Blood Type: B (09/13/161326) RH: Positive (09/13/161326) Rubella Status: Immune (09/13/161326) VDRL/RPR: Non-reactive (09/13/161326) HbsAg: Negative (09/13/161326) HIV Status: Negative (09/13/161326) Maternal labs from smallpox hospital physician practice or if drawn during patient hospitalization ( No results found for this basename displays if no data exists) Lab Results Component Value Date/Time ABO/RH TYPE B Positive 04/12/2012 02:40 PM ABO GROUP B 08/09/2015 10:43 AM ABSTRACTED ABOGROUP B 04/27/2016 RH (D) TYPE Positive 08/09/2015 10:43 AM ABSTRACTED RH(D) TYPE Positive 04/27/2016 ABSTRACTED RUBELLA IGG immune 04/27/2016 ABSTRACTED RPR non reactive 04/27/2016 Lab Results Component Value Date/Time ABSTRACTED HEPATITIS B SURFACE AG negative 04/27/2016 ABSTRACTED HIV-1 AND 2 ABS negative 04/27/2016 ABSTRACTED RUBELLA IGG immune 04/27/2016 MATERNAL MEDICATIONS CURRENT HOSPITALIZATION Medications meperidine 5 mg/ml epidural (2 mL/hr Epidural New Bag 09/13/16 1310) ketorolac (TORADOL) injection 30 mg (not administered) ibuprofen (MOTRIN) tablet 600 mg (not administered) naloxone (NARCAN) 0.4 mg/mL injection 0.2 mg (not administered) nalbuphine (NUBAIN) injection 2 mg (not administered) oxytocin in lactated ringers (PITOCIN) 20 unit/1,000 mL infusion Solution ( IV Fluid Volume 09/13/16 1333) lactated ringers solution ( IV Stopped 09/13/16 1303) oxytocin in lactated ringers (PITOCIN) 20 unit/1,000 mL infusion Solution (not administered) methylergonovine maleate (METHERGINE) 0.2 mg/mL (1 mL) injection 0.2 mg (not administered) carboprost tromethamine (HEMABATE) 250 mcg/mL injection 1 mL (not administered) miSOPROStol (CYTOTEC) tablet 800 mcg (not administered) fentaNYL PF (SUBLIMAZE) 15 mcg/0.3 mL syringe 15 mcg (15 mcg See Admin Instructions Given 09/13/16 1227) ceFAZolin (ANCEF) IVPB 2,000 mg (2,000 mg IV New Bag 09/13/16 1241) INFORMATION Ethnicity of the [place]: White Information for the patient's : COOPER VitaleKrista [[id number]] Type of Delivery: , Low Transverse (09/13/16 1318) Information for the patient's : COOPER VitaleKrista [[id number]] Weight: 3515 g (7 lb 12 oz) (09/13/161316) 5 Minute Score: 9 (09/13/161316) Anomalies: Gross congenital anomalies (frenulum attached) (09/13/161316) Evidence of Infection? no Infant Temp (>100 degrees)? no Information for the patient's : TALI Vitale1Krista [[id number]] Patient Vitals for the past 24 hrs: Temp Temp src Resp Weight 09/13/161314 98.1 ??F (36.7 ??C) Axillary 50 3515 g (7 lb 12 oz) Comments: THE FOLLOWING ITEMS ARE ENCLOSED IN THE COLLECTION BOX MATERNAL BLOOD [x] Red Top Tube [x] Purple Top Tube [x] White Top Tube CORD BLOOD [x] Cord Blood Collection Bag COMPLETED PAPER WORK [x] Consent Form [x] Labor and Delivery Data Sheet [x] Medical History Questionnaire (if not sent in) RICT DIRECTOR documented in this encounter Plan of Treatment Upcoming Encounters Date Type Department Care Team (Late st Contact Info) Description 10/14/2024 11:00 AM DISTRICT DIRECTOR Office Visit [facility] Oncology and Hematology - Alirio [address] [facility] [address] [place] [address] Ubaldo Cardenas MD [address] [facility] [address] [place] [address] documented as of this encounter Procedures Procedure Name Priority Date/Time Associated Diagnosis Comments DIC PROFILE Routine 09/13/2016 3:35 PM DISTRICT DIRECTOR CBC WITH DIFFERENTIAL Routine 09/13/2016 3:35 PM DISTRICT DIRECTOR SECTION 09/13/2016 12:4 4 PM DISTRICT DIRECTOR EDC 10/07* Cholestasis (Dr. Caraballo approved) Primary CBC WITH DIFFERENTIAL Routine 09/13/2016 11:26 AM DISTRICT DIRECTOR TYPE AND SCREEN Routine 09/13/2016 11:26 AM DISTRICT DIRECTOR HIV DETECTION W/REFLX CONFIRMATION Routine 04/27/2016 HEPATITIS B SURFACE ANTIGEN Routine 04/27/2016 RUBELLA IGG Routine 04/27/2016 RPR Routine 04/27/2016 TYPE AND SCREEN Routine 04/27/2016 documented in this encounter Results * (ABNORMAL) CBC WITH DIFFERENTIAL (09/13/2016 3:35 PM DISTRICT DIRECTOR) WBC 12.0(H) 4.0 - 9.8 K/uL 09/13/2016 3:58 PM DISTRICT DIRECTOR [facility] RBC 3.75(L) 3.90 - 4.90 M/uL 09/13/2016 3:58 PM DISTRICT DIRECTOR [employer] [facility] HEMOGLOBIN 11.1(L) 11.8 - 14.8 g/dL 09/13/2016 3:58 PM DISTRICT DIRECTOR [employer] [facility] - [facility] HEMATOCRIT 32.0(L) 35.5 - 44.0 % 09/13/2016 3:58 PM DISTRICT DIRECTOR [facility] MCV 85.3 82.0 - 99.0 fL 09/13/2016 3:58 PM DISTRICT DIRECTOR [employer] [facility] - [facility] MCH 29.6 27.2 - 32.6 pg 09/13/2016 3:58 PM DISTRICT DIRECTOR [employer] [facility] MCHC 34.7 31.5 - 35.5 g/dL 09/13/2016 3:58 PM DISTRICT DIRECTOR [employer] [facility] - . [facility] RDW 14.6(H) 11.5 - 14.5 % 09/13/2016 3:58 PM DISTRICT DIRECTOR [employer] [facility] SERVICES - . [facility] RDW-STDEV 45.0 37.1 - 48.7 fL 09/13/2016 3:58 PM DISTRICT DIRECTOR [employer] [facility] - [facility] PLATELETS 292 140 - 350 K/uL 09/13/2016 3:58 PM DISTRICT DIRECTOR [employer] [facility] - . [facility] MPV 9.2(L) 9.3 - 12.4 fL 09/13/2016 3:58 PM DISTRICT DIRECTOR [employer] [facility] - . [facility] NEUTROPHILS 82 % 09/13/2016 3:58 PM DISTRICT DIRECTOR [employer] [facility] LYMPHOCYTES 12 % 09/13/2016 3:58 PM DISTRICT DIRECTOR [employer] [facility] - [facility] MONOCYTES 5 % 09/13/2016 3:58 PM DISTRICT DIRECTOR [employer] [facility] - . [facility] EOSINOPHILS 0 % 09/13/2016 3:58 PM DISTRICT DIRECTOR [employer] [facility] - . [facility] BASOPHILS 0 % 09/13/2016 3:58 PM DISTRICT DIRECTOR [employer] [facility] - . [facility] IMMATURE GRANULOCYTES 1 % 09/13/2016 3:58 PM DISTRICT DIRECTOR [employer] [facility] - [facility] Comment:IG (Immature Granulo cyte) count includes Metamyelocytes, Myelocytes, and Promyelocytes NEUTROPHIL ABSOLUTE 9.78(H) 1.90 - 7.00 K/uL 09/13/2016 3:58 PM DISTRICT DIRECTOR [employer] [facility] - . [facility] LYMPHOCYTE ABSOLUTE 1.46 0.70 - 4.50 K/uL 09/13/2016 3:58 PM DISTRICT DIRECTOR [employer] [facility] - . [facility] MONOCYTE ABSOLUTE 0.61 0.10 - 1.30 K/uL 09/13/2016 3:58 PM DISTRICT DIRECTOR [employer] [facility] - . [facility] EOSINOPHIL ABSOLUTE 0.02 0.00 - 0.70 K/uL 09/13/2016 3:58 PM DISTRICT DIRECTOR [employer] [facility] - . [facility] BASOPHILS ABSOLUTE 0.01 0.00 - 0.20 K/uL 09/13/2016 3:58 PM DISTRICT DIRECTOR [employer] [facility] - . [facility] IMMATURE GRANULOCYTES ABSOLUTE 0.07(H) 0.00 - 0.03 K/uL 09/13/2016 3:58 PM DISTRICT DIRECTOR [facility] - . [facility] Blood Collection / Unknown 09/13/2016 3:35 PM DISTRICT DIRECTOR 09/13/2016 3:39 PM DISTRICT DIRECTOR Keo Meza MD HEMATOLOGY ORDERABLE S [facility] CLBRAN# [id number] [address] [place] [address] * (ABNORMAL) DIC PROFILE (09/13/2016 3:35 PM DISTRICT DIRECTOR) PROTIME 13.6 12.7 - 15.1 Seconds 09/13/2016 4:06 PM DISTRICT DIRECTOR [facility] [employer] [facility] INR 1.0 0.9 - 1.1 09/13/2016 4:06 PM [facility] [employer] [facility] Comment: INR Therapeutic Range: Adult: ?? 2.0 - 3.0 for pulmonary embolism or prophylaxis against venous ?thrombosis or systemic embolization. 2.0 - 3.0 for patients with tissue heart valves. 2.5 - 3.5 for patients with mechanical heart valves or post GA. Pediatric ??(12 years and under): 1.5 - 3.0 Although the target range in children is not well established, ?INR values of 1.5 - 3.0 are recommended for most patients. ?Higher values have been used in children with prosthetic ?cardiac valves and hereditary clotting disorders. [place] (<3 days) therapeutic ranges have not been established PTT 29.2 24.4 - 36.4 seconds 09/13/2016 4:06 PM [facility] [employer] [facility] Comment: PTT Therapeutic Range: Heparin Level ? PTT (seconds) <0.10 units/mL ? <53 0.10 - 0.30 units/mL ? 53 - 67 0.30 - 0.70 units/mL* ?67 - 95* 0.70 - 1.00 units/mL ? 95 - 116 *corresponds to therapeutic range for unfractionated heparin FIBRINOGEN 649(H) 185 - 404 mg/dL 09/13/2016 4:06 PM [facility] LABORATORY SERVICES [facility] D-DIMER QUANT 3.20(H) <0.42 ug/mL FEU 09/13/2016 4:06 PM DISTRICT DIRECTOR [facility] [employer] LAB[facility]AT[facility] SERVICES [facility] Comment: The DIC reference range is not clearly established in uncomplicated pregnancies. ??Values above the upper limit of the reference range are common from the 31st to 40th week of . ??High negative predictive values for DVT have been reported with the current methodology, as part of a comprehensive medical examination, including risk stratification. Blood Collection / Unknown 09/13/2016 3:35 PM DISTRICT DIRECTOR 09/13/2016 3:39 PM DISTRICT DIRECTOR Keo Meza MD HEMATOLOGY ORDERABLE S Performing Organization Address [facility] Co de Phone Number [facility]# [id number] [address] [place] [address] * TYPE AND SCREEN (09/13/2016 11:26 AM DISTRICT DIRECTOR) ABO GROUP B 09/13/2016 2:14 PM DISTRICT DIRECTOR [employer] [facility] -- [facility] RH (D) TYPE Positive 09/13/2016 2:14 PM DISTRICT DIRECTOR [employer] [facility] -- [facility] ANTIBODY SCREEN Negative 09/13/2016 2:14 PM DISTRICT DIRECTOR [employer] [facility] -- [facility] Blood Venipuncture / Unknown 09/13/2016 11:26 AM DISTRICT DIRECTOR 09/13/2016 11:32 AM DISTRICT DIRECTOR Keo Meza MD BLOOD BANK ORDERABLE S [facility] LAB[facility]ATORY SERVICES -- [facility] CLIA# [id number] [address] [facility] [address] [place] [address] * (ABNORMAL) CBC WITH DIFFERENTIAL (09/13/2016 11:26 AM DISTRICT DIRECTOR) [facility] WBC 7.7 4.0 - 9.8 K/uL 09/13/2016 11:56 AM DISTRICT DIRECTOR [employer] [facility] RBC 4.10 3.90 - 4.90 M/uL 09/13/2016 11:56 AM DISTRICT DIRECTOR [employer] [facility] HEMOGLOBIN 12.1 11.8 - 14.8 g/dL 09/13/2016 11:56 AM DISTRICT DIRECTOR [employer] [facility] HEMATOCRIT 34.7(L) 35.5 - 44.0 % 09/13/2016 11:56 AM [employer] [facility] MCV 84.6 82.0 - 99.0 fL 09/13/2016 11:56 AM [employer] [facility] MCH 29.5 27.2 - 32.6 pg 09/13/2016 11:56 AM [employer] [facility] MCHC 34.9 31.5 - 35.5 g/dL 09/13/2016 11:56 AM [employer] [facility] RDW 14.6(H) 11.5 - 14.5 % 09/13/2016 11:56 AM [employer] [facility] RDW-STDEV 44.3 37.1 - 48.7 fL 09/13/2016 11:56 AM [employer] [facility] PLATELETS 300 140 - 350 K/uL 09/13/2016 11:56 AM [employer] [facility] MPV 9.3 9.3 - 12.4 fL 09/13/2016 11:56 AM DISTRICT DIRECTOR [employer] [facility] NEUTROPHILS 70 % 09/13/2016 11:56 AM DISTRICT DIRECTOR [employer] [facility] LYMPHOCYTES 23 % 09/13/2016 11:56 AM DISTRICT DIRECTOR [employer] [facility] MONOCYTES 6 % 09/13/2016 11:56 AM DISTRICT DIRECTOR [employer] [facility] EOSINOPHILS 0 % 09/13/2016 11:56 AM DISTRICT DIRECTOR [employer] [facility] BASOPHILS 0 % 09/13/2016 11:56 AM [employer] [facility] IMMATURE GRANULOCYTES 1 % 09/13/2016 11:56 AM [facility] [employer] LABORATORY SERVICES [facility] Comment:IG (Immature Granulo cyte) count includes Metamyelocytes, Myelocytes, and Promyelocytes NEUTROPHIL ABSOLUTE 5.35 1.90 - 7.00 K/uL 09/13/2016 11:56 AM [facility] LABORATORY [facility] LYMPHOCYTE ABSOLUTE 1.79 0.70 - 4.50 K/uL 09/13/2016 11:56 AM [facility] LABORATORY [facility] - . [facility] MONOCYTE ABSOLUTE 0.49 0.10 - 1.30 K/uL 09/13/2016 11:56 AM [facility] [employer] [facility] SERVICES - . [facility] EOSINOPHIL ABSOLUTE 0.02 0.00 - 0.70 K/uL 09/13/2016 11:56 AM [facility] [employer] LABORATORY [facility] - . [facility] BASOPHILS ABSOLUTE 0.01 0.00 - 0.20 K/uL 09/13/2016 11:56 AM [facility] [employer] LABORATORY [facility] - . [facility] IMMATURE GRANULOCYTES ABSOLUTE 0.04(H) 0.00 - 0.03 K/uL 09/13/2016 11:56 AM [facility] [employer] LABORAT[facility] Blood Venipuncture / Unknown 09/13/2016 11:26 AM DISTRICT DIRECTOR 09/13/2016 11:32 AM DISTRICT DIRECTOR Keo Meza MD HEMATOLOGY ORDERABLE S [facility] [employer] [facility] CLIA# [id number] [address] [place] [address] * RPR (04/27/2016) ABSTRACTED RPR non reactive NON [facility] B Blood Historical Provider CHEMISTRY ORDERABLES NON [facility] * TYPE AND SCREEN (04/27/2016) ABSTRACTED ABOGROUP B NON [facility] ABSTRACTED RH(D) TYPE Positive NON [facility] Blood Historical Provider BLOOD BANK ORDERABLE S NON [facility] * HIV DETECTION W/REFLX CONFIRMATION (04/27/2016) ABSTRACTED HIV-1 AND 2 ABS negative NON [facility] Blood Historical Provider CHEMISTRY ORDERABLES NON [facility] * HEPATITIS B SURFACE ANTIGEN (04/27/2016) ABSTRACTED HEPATITIS B SURFACE AG negative NON [facility] Blood Historical Provider CHEMISTRY ORDERABLES NON [facility] * RUBELLA IGG (04/27/2016) ABSTRACTED RUBELLA IGG immune NON [facility] Blood Historical Provider CHEMISTRY ORDERABLES Performing Organization Address City/[facility]/ZIP Co de Phone Number NON [facility] documented in this encounter Visit Diagnoses Diagnosis S/P section Other postprocedural status Cholestasis during Bipolar affective disorder, currently depressed, moderate Bipolar I disorder, most recent episode (or current) depressed, moderate CLOTILDE (generalized anxiety disorder) Generalized anxiety disorder documented in this encounter Administered Medications Inactive Administered Medications - up to 3 most recent administrations Medication Order MAR Action Action Date Dose Rate Site acetaminophen (TYLENOL) tablet 1,000 mg 1,000 mg, Oral, EVERY 8 HOURS, First dose (after last modification) on Nancy 09/14/16 at 1915, Until Discontinued, Routine, Post-op - Floor Given 09/16/2016 6:22 AM DISTRICT DIRECTOR 1,000 mg Given 09/15/2016 9:07 PM DISTRICT DIRECTOR 1,000 mg Given 09/15/2016 2:20 PM DISTRICT DIRECTOR 1,000 mg carboprost tromethamine (HEMABATE) 250 mcg/mL injection 1 mL 1 mL (250 mcg), IM, EVERY 15 MINUTES PRN, 8 doses, Starting on 09/13/16 at 1137, Until 09/16/16 at 1333, Other (See Comment), for excessive bleeding in the immediate period as needed after consultation with resident or attending physician - Maximum of 8 doses, Routine Given 09/13/2016 3:44 PM DISTRICT DIRECTOR 1 mL Thigh, Left Given 09/13/2016 3:25 PM DISTRICT DIRECTOR 1 mL Th igh, Left ceFAZolin (ANCEF) IVPB 2,000 mg 2,000 mg, IV, PRE-PROCEDURE ONCE, 1 dose, Starting on Sun09/13/16 at 1137, Until Sun09/13/16 at 1311, Routine, Pre-op, Antibiotic Indication: Surgical prophylaxis New Bag 09/13/2016 12:41 PM DISTRICT DIRECTOR 2,000 mg diphenhydrAMINE (BENADRYL) tablet 25 mg 25 mg, Oral, EVERY 6 HOURS PRN, Starting on Sun09/15/16 at 1821, Until Sun09/16/16 at 1333, Restlessness, anxiety, Routine docusate sodium (COLACE) capsule 100 mg 100 mg, Oral, TWO TIMES DAILY, First dose on Sun09/13/16 at 2100, Until Discontinued, Routine, Post-op - Floor Given 09/16/2016 8:29 AM DISTRICT DIRECTOR 100 m g Given 09/15/2016 9:08 PM DISTRICT DIRECTOR 100 mg Given 09/15/2016 8:19 AM DISTRICT DIRECTOR 100 mg ibuprofen (MOTRIN) tablet 600 mg 600 mg, Oral, EVERY 6 HOURS, 7 doses, First dose on Sun09/13/16 at 1915, Last dose on Sun09/15/16 at 0600, Routine, (OB POST-OP PAIN SERVICE) Given 09/15/2016 5:40 AM DISTRICT DIRECTOR 600 mg Given 09/14/2016 9:55 PM DISTRICT DIRECTOR 600 mg Given 09/14/2016 4:27 PM DISTRICT DIRECTOR 600 mg ibuprofen (MOTRIN) tablet 600 mg 600 mg, Oral, EVERY 6 HOURS, First dose (after last modification) on Sun09/15/16 at 1200, Until Discontinued, Routine, Post-op - Floor Given 09/16/2016 6:22 AM DISTRICT DIRECTOR 600 mg Given 09/16/2016 12:57 AM DISTRICT DIRECTOR 600 mg Given 09/15/2016 6:36 PM DISTRICT DIRECTOR 600 mg ketorolac (TORADOL) injection 30 mg 30 mg, IV, ONE TIME ONLY, 1 dose, On Sun09/13/16 at 1315, Routine, (OB POST-OP PAIN SERVICE) Given 09/13/2016 2:15 PM DISTRICT DIRECTOR 30 mg lactated ringers solution IV, at 125 mL/hr, PRE-PROCEDURE CONTINUOUS, Starting on Sun09/13/16 at 1145, Until Sun09/13/16 at 1657, Routine, Pre-op New Bag 09/13/2016 12:28 PM DISTRICT DIRECTOR 125 mL/hr New Bag 09/13/2016 12:00 PM DISTRICT DIRECTOR lanolin (LANSINOH) 100 % topical ointment Ointment Topical, SEE ADMIN INSTRUCTIONS, Starting on Sun09/13/16 at 1731, Until 09/16/16 at 1333, Routine, Post-op - Floor Given 09/14/2016 8:44 PM DISTRICT DIRECTOR 7 Grams Nipple, Bilateral meperidine 5 mg/ml epidural 2 mL/hr, Epidural, CONTINUOUS, Starting on Sun09/13/16 at 1145, Until Nancy 09/14/16 at 1904, Stat New Bag 09/13/2016 1:10 PM DISTRICT DIRECTOR 2 mL/hr 2 mL/hr metFORMIN (GLUCOPHAGE) tablet 500 mg 500 mg, Oral, TWO TIMES DAILY WITH MEALS, First dose on Sun09/13/16 at 1830, Until Discontinued, Routine Given 09/16/2016 8:29 AM DISTRICT DIRECTOR 500 mg Given 09/15/2016 6:38 PM DISTRICT DIRECTOR 500 mg Given 09/15/2016 8:19 AM DISTRICT DIRECTOR 500 mg methylergonovine maleate (METHERGINE) 0.2 mg/mL (1 mL) injection 0.2 mg 0.2 mg, IM, EVERY 15 MINUTES PRN, 2 doses, Starting on Sun09/13/16 at 1137, Until 09/16/16 at 1333, Other (See Comment), for excessive bleeding in the immediate period as needed after consultation with resident or attending physician - Maximum of 2 doses, Routine miSOPROStol (CYTOTEC) tablet 800 mcg 800 mcg, Rectal, ONE TIME PRN, 1 dose, Starting on Sun09/13/16 at 1137, Until Sun09/13/16 at 1520, Other (See Comment), Physician consultation required before administration for appropriate medication selection, Routine, Post-op - Floor Given 09/13/2016 3:20 PM DISTRICT DIRECTOR 800 mcg oxyCODONE (ROXICODONE) tablet 5 mg 5 mg, Oral, EVERY 4 HOURS PRN, Starting on Nancy 09/14/16 at 1909, Until 09/16/16 at 1333, Other (See Comment), FIRST LINE MEDICATION, See Admin. Instructions, Routine, Post-op - Floor Given 09/16/2016 3:53 AM DISTRICT DIRECTOR 5 mg Given 09/15/2016 10:45 PM DISTRICT DIRECTOR 5 mg Given 09/15/2016 6:37 PM DISTRICT DIRECTOR 5 mg oxyCODONE (ROXICODONE) tablet 5 mg 5 mg, Oral, EVERY 3 HOURS PRN, Starting on Nancy 09/14/16 at 1909, Until 09/16/16 at 1333, Other (See Comment), ANTICIPATORY OR BREAKTHROUGH PAIN, See Admin. Instructions, Routine, Post-op - Floor oxytocin in lactated ringers (PITOCIN) 20 unit/1,000 mL infusion Solution IV, at 125 mL/hr, CONTINUOUS PRN, 2 doses, Starting on Sun09/13/16 at 1131, Until Sun09/13/16 at 1334, Other (See Comment), post op, (OB ANESTHESIA ORDER) Started by Another Clinician 09/13/2016 1:34 PM DISTRICT DIRECTOR 125 mL/hr 125 mL/hr New Bag 09/13/2016 1:03 PM DISTRICT DIRECTOR oxytocin in lactated ringers (PITOCIN) 20 unit/1,000 mL infusion Solution IV, at 999 mL/hr, CONTINUOUS PRN, Starting on Sun09/13/16 at 1137, Until 09/16/16 at 1333, Other (See Comment), excessive bleeding in the immediate period, Routine New Bag 09/13/2016 3:20 PM DISTRICT DIRECTOR 999 mL/hr 999 mL/hr vit-iron fumarate-fa (HECTOR ) 28 mg iron- 800 mcg per tablet 1 Tablet 1 Tablet, Oral, DAILY, First dose on Sun09/14/16 at 0900, Until Discontinued, Routine, Post-op - Floor Given 09/16/2016 8:29 AM DISTRICT DIRECTOR 1 Tablet Given 09/15/2016 8:19 AM DISTRICT DIRECTOR 1 Tablet Given 09/14/2016 9:28 AM DISTRICT DIRECTOR 1 Tablet sertraline (ZOLOFT) tablet 100 mg 100 mg, Oral, DAILY AT BEDTIME, First dose (after last modification) on Sun09/15/16 at 2100, Until Discontinued, Routine Given 09/15/2016 9:07 PM DISTRICT DIRECTOR 100 mg sertraline (ZOLOFT) tablet 50 mg 50 mg, Oral, DAILY AT BEDTIME, First dose (after last modification) on Sun09/13/16 at 2300, Until Discontinued, Routine Given 09/14/2016 8:45 PM DISTRICT DIRECTOR 50 mg Given 09/14/2016 1:48 AM DISTRICT DIRECTOR 50 mg simethicone chewable tablet 80 mg 80 mg, Oral, EVERY 6 HOURS PRN, Starting on Sun09/13/16 at 1731, Until 09/16/16 at 1333, Gas, Routine, Post-op - Floor Given 09/14/2016 4:26 PM DISTRICT DIRECTOR 80 mg sodium chloride 0.9 % flush injection 3 mL 3 mL, IV, EVERY 8 HOURS, First dose on Sun09/14/16 at 0830, Until Discontinued, Routine Given 09/14/2016 2:51 PM DISTRICT DIRECTOR 3 mL Given 09/14/2016 9:38 AM DISTRICT DIRECTOR 3 mL sodium chloride 0.9 % flush injection 3 mL 3 mL, IV, SEE ADMIN INSTRUCTIONS, Starting on Sun09/14/16 at 0825, Until Sun09/15/16 at 0617, Routine Given 09/14/2016 8:27 AM DISTRICT DIRECTOR 3 mL sodium chloride 0.9% infusion IV, at 200 mL/hr, CONTINUOUS, Starting on Sun09/14/16 at 0245, Until 09/16/16 at 1333, Routine Rate Change 09/14/2016 8:30 AM DISTRICT DIRECTOR 125 mL/hr New Bag 09/14/2016 2:45 AM DISTRICT DIRECTOR 200 mL/hr documented in this encounter Active and Recently Administered Medications Times are shown in DISTRICT DIRECTOR. Scheduled Medication Order 09/14/2016 09/15/2016 09/16/2016 acetaminophen (TYLENOL) tablet 1,000 mg 1,000 mg, Oral, EVERY 8 HOURS, First dose (after last modification) on Sun09/14/16 at 1915, Until Discontinued, Routine, Post-op - Floor 1927 (Given - Provider: Ella Lara RN) 0539 (Given - Provider: Aminah Champion RN)1420 (Given - Provider: Tricia Jamison RN)2107 (Given - Provider: Dania Alexis RN) 0622 (Given - Provider: Dania Alexis RN) docusate sodium (COLACE) capsule 100 mg 100 mg, Oral, TWO TIMES DAILY, First dose on Sun09/13/16 at 2100, Until Discontinued, Routine, Post-op - Floor 0928 (Given - Provider: Tricia Jamison RN)2044 (Given - Provider: Aminah Champion RN) 0819 (Given - Provider: Tricia Jamison RN)2108 (Given - Provider: Dania Alexis RN) 0829 (Given - Provider: Chasidy Ortega RN) ibuprofen (MOTRIN) tablet 600 mg 600 mg, Oral, EVERY 6 HOURS, 7 doses, First dose on Sun09/13/16 at 1915, Last dose on Sun09/15/16 at 0600, Routine, (OB POST-OP PAIN SERVICE) 0148 (Given - Provider: Fareed Black RN)0928 (Given - Provider: Tricia Jamison RN)1200 (Not Given - Provider: Tricia Jamison RN - Reason: Medication already given)1627 (Given - Provider: Ella Lara RN - Comment: adjusted from last dose)2155 (Given - Provider: Aminah Champion RN) 0400 (Canceled Entry - Provider: Aminah Champion RN)0540 (Given - Provider: Aminah Champion RN) ibuprofen (MOTRIN) tablet 600 mg 600 mg, Oral, EVERY 6 HOURS, First dose (after last modification) on Sun09/15/16 at 1200, Until Discontinued, Routine, Post-op - Floor 1200 (Given - Provider: Tricia Jamison RN)1836 (Given - Provider: Dania Alexis RN) 0057 (Given - Provider: Dania Alexis RN)0622 (Given - Provider: Dania Alexis RN) lanolin (LANSINOH) 100 % topical ointment Ointment Topical, SEE ADMIN INSTRUCTIONS, Starting on Sun09/13/16 at 1731, Until 09/16/16 at 1333, Routine, Post-op - Floor 2044 (Given - Provider: Aminah Champion RN) metFORMIN (GLUCOPHAGE) tablet 500 mg 500 mg, Oral, TWO TIMES DAILY WITH MEALS, First dose on Sun09/13/16 at 1830, Until Discontinued, Routine 0748 (Given - Provider: Fareed Black RN)1927 (Given - Provider: Ella Lara RN) 0819 (Given - Provider: Tricia Jamison RN)1838 (Given - Provider: Dania Alexis RN) 0829 (Given - Provider: Chasidy Ortega, JACK) naloxone (NARCAN) 0.4 mg/mL injection 0.1 mg 0.1 mg, IV, SEE ADMIN INSTRUCTIONS, Starting on Sun09/13/16 at 1731, Until Sun09/16/16 at 1333, Routine, Post-op - Floor naloxone (NARCAN) 0.4 mg/mL injection 0.2 mg 0.2 mg, IV, SEE ADMIN INSTRUCTIONS, Starting on Sun09/13/16 at 1131, Until Sun09/15/16 at 1130, Routine, (OB POST-OP PAIN SERVICE) vit-iron fumarate-fa (HECTOR ) 28 mg iron- 800 mcg per tablet 1 Tablet 1 Tablet, Oral, DAILY, First dose on Sun09/14/16 at 0900, Until Discontinued, Routine, Post-op - Floor 0928 (Given - Provider: Tricia Jamison RN) 08 (Given - Provider: Tricia Jamison RN) 08 (Given - Provider: Chasidy Ortega RN) sertraline (ZOLOFT) tablet 100 mg 100 mg, Oral, DAILY AT BEDTIME, First dose (after last modification) on Sun09/15/16 at 2100, Until Discontinued, Routine 2106 (Given - Provider: Dania Alexis RN) sertraline (ZOLOFT) tablet 100 mg 100 mg, Oral, DAILY, First dose on Sun09/16/16 at 0900, Until Discontinued, Routine sertraline (ZOLOFT) tablet 50 mg (CANCELED) 50 mg, Oral, DAILY AT BEDTIME, First dose (after last modification) on Sun09/13/16 at 2300, Until Discontinued, Routine 0148 (Given - Provider: Fareed Black RN)2044 (Given - Provider: Aminah Champion RN) sodium chloride 0.9 % flush injection 3 mL (CANCELED) 3 mL, IV, EVERY 8 HOURS, First dose on Sun09/14/16 at 0830, Until Discontinued, Routine 0938 (Given - Provider: Tricia Jamison RN)1451 (Given - Provider: Tricia Jamison RN)2100 (Not Given - Provider: Aminah Champion RN - Reason: Clarify-Other (Comment) - Comment: iv discontinued) 0500 (Canceled Entry - Provider: Aminah Champion RN) sodium chloride 0.9 % flush injection 3 mL (CANCELED) 3 mL, IV, SEE ADMIN INSTRUCTIONS, Starting on Nancy 09/14/16 at 0825, Until Sun09/15/16 at 0617, Routine 0827 (Given - Provider: Tricia Jamison, JACK)0937 (Not Given - Provider: Tricia Jamison, RN - Reason: Medication already given) Continuous Medication Order 09/14/2016 09/15/2016 09/16/2016 lactated ringers solution IV, at 125 mL/hr, CONTINUOUS, Starting on Sun09/13/16 at 1745, Until 09/16/16 at 1333, Routine, Post-op - Floor 0233 (Stopped - Provider: Fareed Black RN) sodium chloride 0.9% infusion IV, at 200 mL/hr, CONTINUOUS, Starting on Nancy 09/14/16 at 0245, Until 09/16/16 at 1333, Routine 0245 (New Bag - Provider: Fareed Black RN)0830 (Rate Change - Provider: Tricia Jamison RN) PRN Medication Order 09/14/2016 09/15/2016 09/16/2016 carboprost tromethamine (HEMABATE) 250 mcg/mL injection 1 mL 1 mL (250 mcg), IM, EVERY 15 MINUTES PRN, 8 doses, Starting on Sun09/13/16 at 1137, Until 09/16/16 at 1333, Other (See Comment), for excessive bleeding in the immediate period as needed after consultation with resident or attending physician - Maximum of 8 doses, Routine diphenhydrAMINE (BENADRYL) injection 12.5 mg 12.5 mg, IV, EVERY 2 HOURS PRN, Starting on Sun09/13/16 at 1731, Until 09/16/16 at 1333, Itching, Routine, Post-op - Floor diphenhydrAMINE (BENADRYL) tablet 25 mg 25 mg, Oral, EVERY 6 HOURS PRN, Starting on Sun09/15/16 at 1821, Until 09/16/16 at 1333, Restlessness, anxiety, Routine magnesium hydroxide (MILK OF MAGNESIA) oral suspension 30 mL 30 mL, Oral, NIGHTLY PRN, Starting on Sun09/13/16 at 1731, Until 09/16/16 at 1333, Constipation, Routine, Post-op - Floor methylergonovine maleate (METHERGINE) 0.2 mg/mL (1 mL) injection 0.2 mg 0.2 mg, IM, EVERY 15 MINUTES PRN, 2 doses, Starting on 09/13/16 at 1137, Until 09/16/16 at 1333, Other (See Comment), for excessive bleeding in the immediate period as needed after consultation with resident or attending physician - Maximum of 2 doses, Routine nalbuphine (NUBAIN) injection 2 mg 2 mg, IV, EVERY 3 HOURS PRN, 6 doses, Starting on Sun09/13/16 at 1131, Until 09/16/16 at 1333, Itching, Routine ondansetron (ZOFRAN ODT) tablet 4 mg 4 mg, Oral, EVERY 6 HOURS PRN, Starting on 09/13/16 at 1731, Until 09/16/16 at 1333, Nausea/Emesis, Routine, Post-op - Floor oxyCODONE (ROXICODONE) tablet 5 mg 5 mg, Oral, EVERY 4 HOURS PRN, Starting on Nancy 09/14/16 at 1909, Until 09/16/16 at 1333, Other (See Comment), FIRST LINE MEDICATION, See Admin. Instructions, Routine, Post-op - Floor 1927 (Given - Provider: Ella Lara RN) 0101 (Given - Provider: Aminah Champion RN)0539 (Given - Provider: Aminah Champion RN)1037 (Given - Provider: Tricia Jamison RN)1420 (Given - Provider: Tricia Jamison RN)1837 (Given - Provider: Dania Alexis RN)2245 (Given - Provider: Dania Alexis RN) 0353 (Given - Provider: Dania Alexis RN) oxyCODONE (ROXICODONE) tablet 5 mg 5 mg, Oral, EVERY 3 HOURS PRN, Starting on Nancy 09/14/16 at 1909, Until 09/16/16 at 1333, Other (See Comment), ANTICIPATORY OR BREAKTHROUGH PAIN, See Admin. Instructions, Routine, Post-op - Floor oxytocin in lactated ringers (PITOCIN) 20 unit/1,000 mL infusion Solution IV, at 999 mL/hr, CONTINUOUS PRN, Starting on Sun09/13/16 at 1137, Until 09/16/16 at 1333, Other (See Comment), excessive bleeding in the immediate period, Routine prochlorperazine maleate (COMPAZINE) tablet 10 mg 10 mg, Oral, EVERY 6 HOURS PRN, Starting on Sun09/13/16 at 1731, Until 09/16/16 at 1333, Nausea/Emesis, Routine, Post-op - Floor simethicone chewable tablet 80 mg 80 mg, Oral, EVERY 6 HOURS PRN, Starting on Sun09/13/16 at 1731, Until 09/16/16 at 1333, Gas, Routine, Post-op - Floor 1626 (Given - Provider: Ella Lara RN) documented in this encounter Care Teams Subsystems Engineer Relationship Specialty Start Date End Date Hilda Eden FNP [address] [place] [id number] PCP - General NURSE PRACTITIONER 07/13/13 01/05/18 documented as of this encounter
--- OUTSIDE RECORDS SUMMARY | 2024-08-03 01:40 | XMS_ITS | Encounter Summary ---
Author Organization [facility] Address [address] [place] [address] Care Team Providers Care Surgical Instrument Technician Name Role Phone Rachid Colindres DO Primary Care Provider Reason for Visit * Reason Comments other Rapid; Patient was e xposed five days ago; Diarrhea Abdominal Pain Vomiting Headache Encounter Details Date Type Department Care Team (Late st Contact Info) Description 08/24/2020 6:30 PM TECHNOLOGY INSTRUCTOR Office Visit [facility] [address] [place] [address] Skinny Alexis PA-C [address] [place] [phone] Cough (Primary Dx); Rhinorrhea; Chest tightness; Exposure to SARS-associated coronavirus; COVID-19 virus detected; RLQ abdominal pain; Non-intractable vomiting with nausea, unspecified vomiting type; Acute diarrhea Social History Tobacco Use Types Packs/Day Years [...] Sign Reading Time Taken Comments Blood Pressure 127/82 08/24/2020 6:39 PM TECHNOLOGY INSTRUCTOR Pulse 90 08/24/2020 6:39 PM TECHNOLOGY INSTRUCTOR Temperature 36.6 ??C (97.8 ??F) 08/24/2020 6:39 PM CS T Respiratory Rate - - Oxygen Saturation 100% 08/24/2020 6:39 PM TECHNOLOGY INSTRUCTOR Inhaled Oxygen Concentration - - Weight 112.5 kg (248 lb) 08/24/2020 6:39 PM TECHNOLOGY INSTRUCTOR Height 167.6 cm (5' 6 ) 08/24/2020 6:39 PM TECHNOLOGY INSTRUCTOR Body Mass Index 40.03 08/24/2020 6:39 PM TECHNOLOGY INSTRUCTOR documented in this encounter Progress Notes * Skinny Alexis PA-C - 08/24/2020 6:30 PM CST Chief Complaint Patient presents with ??? other Rapid; Patient was exposed five days ago; ??? Diarrhea ??? Abdominal Pain ??? Vomiting ??? Headache Current Outpatient Medications Medication Sig Dispense Refill ??? zonisamide (ZONEGRAN) 25 mg Capsule Take [...] DISSECTION 10/2014 armpit ??? LAP CHOLECYSTECTOMY ??? MS DELIVERY ONLY 11/21/2010 SECTION performed by KEO JULIEN at [facility] L&D ??? MS DELIVERY ONLY N/A 09/13/2016 SECTION performed by Keo Julien MD at [facility] L&D ??? MS LAP,RMV ADNEXAL STRUCTURE N/A 08/06/2015 LEFT SALPINGECTOMY LAPAROSCOPIC FOR ECTOPIC performed by Ayde Judge MD at [facility] OR [facility] ??? PT DENIES RELEVANT SURGICAL HISTORY [...] a 35 y.o. female who complains of dry cough, rhinorrhea, chest tightness, abd pain, diarrhea, and vomiting. Symptoms started 2-3 days ago. Pt notes vomiting has been 2-3 times daily, pt notes diarrhea has been 8-9 times daily. Pt denies dark/bloody stools. Pt describes diarrhea as watery . Denies recent foreign travel or antibiotic use. Denies recent ingestion of uncooked foods. Denies dizziness, dysuria, vaginal discharge. Of note: pt additionally notes intermittent vaginalbleeding since sxs started. Pt notes history of cholecystectomy and ovarian cyst. Pt reports no ST,no measured fever, pos congestion, pos cough, pos ANAND, pos NVD, and no CP/SOB. States known exposure to COVID19 5 days ago. 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 Pt has not traveled in the last month. Reports they have been out and about in the community and/or following CDC guidelines such as wearing a mask and social distancing. Drinking fluids well, although has decreased appetite. Pt denies dizziness upon standing. PMH/Problem, Social, Allergy and Medication lists are reviewed. ROS: Review of Systems Constitutional: neg for chills and fever. HENT: pos for congestion and neg or sore throat. Respiratory: pos for cough, neg shortness of breath and wheezing. Cardiovascular: neg for chest pain. Gastrointestinal: pos for diarrhea. pos Nausea and vomiting Musculoskeletal: neg for myalgias. Skin: neg for rash. Neurological: pos for headaches. OBJECTIVE: BP 127/82 (BP Location: Left arm, Patient Position (BP): Sitting, BP Cuff Size: Adult) Pulse 90 Temp 97.8 ??F (36.6 ??C) (Oral) Ht 5' 6 (1.676 m) Wt 112.5 kg (248 lb) SpO2 100% BMI 40.03kg/m?? Constitutional: General: No acute distress. Appearance: well-developed and is not ill-appearing. HENT: Head: Normocephalic and atraumatic. THROAT: moist mucus membranes, no pharyngeal erythema, no tonsillar hypertrophy, uvula midline, no evidence of TUNNEL KILN OPERATOR, no drooling; EARs: TMs normal, EACs normal; nares: mild clear drainage, normal mucosa Eyes: Comments: No conjunctival injection Neck: Musculoskeletal: Neck supple. Pulmonary: Effort: Pulmonary effort is normal. No wheezes, no rales, no rhonchi, CTA Breath sounds: No stridor. Cards: RRR. GI: Soft, non-distended, 3+ bowel sounds throughout, RLQ tenderness, no organomegaly Skin: Comments: Visibly dry without visible rash or visible diaphoresis; normal skin turgor Neurological: Mental Status: Alert and oriented x 4, speaking clearly and appropriately, normal gait, sensation globally intact Psychiatric: Mood and Affect: Mood normal. Comments: Conversant Interactive ASSESSMENT: ICD-10-CM ICD-9-CM 1. Cough R05 786.2 POC COVID-19 PCR DETECTION 2. Rhinorrhea J34.89 478.19 POC COVID-19 PCR DETECTION 3. Chest tightness R07.89 786.59 POC COVID-19 PCR DETECTION 4. Exposure to SARS-associated coronavirus Z20.828 V01.82 POC COVID-19 PCR DETECTION 5. COVID-19 virus detected U07.1 079.89 6. RLQ abdominal pain R10.31 789.03 POC COVID-19 PCR DETECTION 7. Non-intractable vomiting with nausea, unspecified vomiting type R11.2 787.01 POC COVID-19 PCR DETECTION 8. Acute diarrhea R19.7 787.91 POC COVID-19 PCR DETECTION POC COVID: POSITIVE Results for orders placed or performed in visit on 08/24/20 POC COVID-19 PCR DETECTION Result Value Ref Range COVID-19 PCR Detected (A) Not Detected INTERNAL KIT QC Pass Pass KIT LOT NUMBER [id number] KIT EXPIRATION DATE 02/07/2021 PLAN: Orders Placed This Encounter ??? POC COVID-19 PCR DETECTION ADVISED PT TO F/U IMMEDIATELY SECONDARY TO CONCERN FOR APPENDICITIS WITH COMPLAINT OF RLQ ABDOMINALPAIN AND N/V/D. PT AGREES TO F/U IMMEDIATELY IN [facility] ER VIA PERSONAL VEHICLE FOR FURTHER EVALUATION. PT ALERT, AMBULATORY, AND IN NO ACUTE DISTRESS PRIOR TO ER F/U. PT DECLINES EMS TRANSFER. PTOF SOUND MIND AND JUDGEMENT. Dx as above Most likely viral - possibly COVID19 COVID19 testing performed in clinic - will notify of results once available. Pt tolerated swab well, no immediate complications observed. Advised pt of positive COVID results in clinic. Advised pt ofself-isolation protocol for COVID positive patients as detailed below. No referral necessary at this time Rest, fluids. Use OTC's as needed. Expected course outlined. Advised pt due to symptoms, recommend self isolation for at least 10-14+ days Given CDC handouts and guidelines on when its safe to end self isolation which includes: 1. Being fever free for at least 72 hours without fever reducing medications AND 2. Symptoms have significantly improved. AND 3. It has been at least 10 days since symptoms first appeared Follow up with PCP as needed, fevers, lasts longer than 10-12 days, or if illness in general otherwise worsens. If any respiratory problems, SOB, worsening symptoms, CP, dizziness, uncontrolled fevers, etc - go to Emergency room or call 911 immediately. Precautions discussed. If any exposure: Advised pt it can take around 14+ days post exposure for symptoms to develop or test to show up positive therefore continue monitoring symptoms and temperature daily Because of this, could have false negative results since we are testing pt <14 days from exposure Continue monitoring symptoms and checking temps, if symptoms worsen or new symptoms develop, consider retesting, particularly if first test is negative Recommend still self quarantining for at least 10-14 days and following CDC recommendations as indicated above. After self quarantining, advised following CDC recommendations for social distancing, wearing a mask in public, etc UC with glove, gown, face shield and masks on. Pt with mask on. NOLOGY INSTRUCTOR documented in this encounter Miscellaneous Notes * Patient Instructions - Skinny Alexis PA-C - 08/24/2020 6:30 PM CST FOLLOW-UP IMMEDIATELY IN ER SECONDARY TO UNCLEAR ETIOLOGY OF RLQ ABDOMINAL PAIN, CONCERN FOR APPENDICITIS. NOLOGY INSTRUCTOR documented in this encounter Plan of Treatment Upcoming Encounters Date Type Department Care Team (Late st Contact Info) Description 10/14/2024 11:00 AM TECHNOLOGY INSTRUCTOR Office Visit [facility] H[facility]ology - [place] [address] [place] [address] Ubaldo Cardenas MD [address] [place] [phone] documented as of this encounter Procedures Procedure Name Priority Date/Time Associated Diagnosis Comments POC COVID-19 PCR DETECTION Routine 08/24/2020 6:59 PM TECHNOLOGY INSTRUCTOR Cough Rhinorrhea Chest tightness Exposure to SARS-associated coronavirus RLQ abdominal pain Non-intractable vomiting with nausea, unspecified vomiting type Acute diarrhea documented in this encounter Results * (ABNORMAL) POC COVID-19 PCR DETECTION (08/24/2020 6:59 PM TECHNOLOGY INSTRUCTOR) COVID-19 NAAT POC Detected( A) Not Detected [facility] INTERNAL KIT QC Pass Pass [facility] KIT LOT NUMBER POC [id number] [facility] KIT EXPIRATION DATE POC [facility]07[facility] 08/24/2020 6:59 PM TECHNOLOGY INSTRUCTOR Skinny Alexis PA-C POINT OF CARE TESTIN G [facility] CLIA# [id number] [address] [place] [address], documented in this encounter Visit Diagnoses Diagnosis Cough- Primary Rhinorrhea Other diseases of nasal cavity and sinuses Chest tightness Other chest pain Exposure to SARS-associated coronavirus COVID-19 virus detected RLQ abdominal pain Abdominal pain, right lower quadrant Non-intractable vomiting with nausea, unspecified vomiting type Acute diarrhea Diarrhea documented in this encounter Care Teams Surgical Instrument Technician Relationship Specialty Start Date End Date Rachid Colindres DO [address] [phone] PCP - General Geriatric Medicine 01/06/18 11/14/23 documented as of this encounter
--- OUTSIDE RECORDS SUMMARY | 2024-08-03 01:40 | XMS_ITS | Encounter Summary ---
Author Organization [facility] Address [address] [place] [address] Care Team Providers Care Gasoline Dragline Operator Name Role Phone Bernadine Rachid Seals Primary Care Provider Reason for Visit * Auth/Cert Specialty Diagnoses / Procedures Referred By Reva t Referred To Contact Obstetrics Diagnoses c/o itching, R/O cholestasis [facility] Ob Triage [address] [place] [address] Referral ID Status Reason Start Date Expiration Date Visits Re quested Visits Authorized [id number] 06/27/2018 07/28/2019 1 Encounter Details Date Type Department Care Team (Latest Contact Info) Description 06/26/2018 5:57 PM TICK SEWER - 06/26/2018 7:47 PM [facility] Hospital Encounter [facility] OB Triage [address] [place] [address] [place] [address] [place] [address] Diet controlled gestational diabetes mellitus (GDM) in third trimester Discharge Disposition: Home or Self Care Social [...] Sign Reading Time Taken Comments Blood Pressure 133/78 06/26/2018 6:06 PM TICK SEWER Pulse 78 06/26/2018 6:06 PM TICK SEWER Temperature 36.3 ??C (97.3 ??F) 06/26/2018 6:06 PM CS T Respiratory Rate 18 06/26/2018 7:29 PM TICK SEWER Oxygen Saturation - - Inhaled Oxygen Concentration - - Weight 104.6 kg (230 lb 8 oz) 06/26/2018 6:06 PM TICK SEWER Height 167.6 cm (5' 6 ) 06/26/2018 6:06 PM TICK SEWER Body Mass Index 37.2 06/26/2018 6:06 PM TICK SEWER documented in this encounter Discharge Instructions * Discharge Instructions* Angela Rios RN - 06/26/2018 7:44 PM TICK SEWER Follow-up: Go to [facility] for . Prescriptions given? No Return to Labor and Delivery or notify your physician regarding: ?? Contractions: 5-6 in one hour increasing in intensity after drinking plenty of water and lying on side. ?? Vaginal Bleeding: A small amount of spotting after sexual intercourse or vaginal examination is considered normal. Bloody show is a pink-tinged or blood- streaked mucousy discharge that occurs nearthe onset of labor. If bleeding is heavy enough to require you to wear a pad, saturates your underpants or is accompanied by abdominal pain or cramping, notify your doctor or come to Labor and Delivery. ?? Rupture of Membranes (Bag of Water): You may notice a large gush or continuous leaking of fluid from the vagina. The fluid will normally be clear and white flecks may be seen. Sometimes the fluid may be greenish or brownish in color. If you think your water has broken, notify your doctor or cometo Labor and Delivery. ?? Decreased Movement: If you think your baby is less active than usual, drink a glass of juice and lie down on your side. Count the number of kicks that you feel during a one-hour period. If your baby is still less active than usual, notify your doctor or come to Labor and Delivery. ?? General: If you experience any of the following signs/symptoms, notify your physician or come toLabor and Delivery: Headache, blurred vision, severe indigestion, abdominal pain, or increased swelling of face, hands, or feet. Activity: Your activity level is no restrictions and no smoking. If you smoke you are advised to quit. Ask your health care provider for advice if you need assistance to stop smoking. Avoid second-hand smoke exposure and do not let people smoke in your home. Diet: Do not eat or drink until seen at [facility]! SEWER documented in this encounter Progress Notes * Angela Rios RN - 06/26/2018 7:47 PM CST Discharge order received from Dr. Julien. Pt educated to go to [facility] for possible c/s and tubal at that hospital. Pt ambulatory to exit with d/c paperwork in hand. SEWER * Angela Rios RN - 06/26/2018 7:10 PM CST Received report from Lisandro Gonzales RN. Assuming care of pt. SEWER documented in this encounter H&P Notes * Nakul Sahu NP - 06/26/2018 6:37 PM CST bisque placer History and Physical CC: itching HPI: Vera Vitale is a 33 y.o. @ 37w3d, who presents with itching for the past few months. Had normal testing 2 months ago. The itching got worse 3 days ago. She has taken Benadryl, Zyrtec and lotions with no relief. The itching is worse on her hands and the bottoms of her feel, but also has itching on her abdomen, legs, arms and back. She had cholestasis with her last and delivered 36 weeks. Contractions: none. Vaginal bleeding: None. Leakage of fluid: denies. States normal movement. She is planning to deliver at [facility] so that she can get a tubal. She last ate at 1530. Her has been complicated by: 1. GDM- diet controlled 2. Hx of LTCS 3. Hx of Hemorrhage 4. Hyperemesis 5. Hx of brain tumor (Craniotomy in 03/2017) 6. Anxiety/depression- takes Trintellix and Buspirone ROS: Comprehensive ROS done. Pertinent positives noted above. All others neg. Evidence Specialist History: denies history of abnormal Pap smears. Hx of trichomoniasis OB History: OB History Para Term AB Living 13 2 1 1 10 2 SAB TAB Ectopic Multiple Live Births 9 0 1 0 2 # Outcome Date GA Lbr Sameer/2nd Weight Sex Delivery Anes PTL Lv 13 Current 12 09/13/16 36w4d 3515 g (7 lb 12 oz) M CS-LTranv N PITA Comments: Gross congenital anomalies 11 SAB 09/2015 SAB 10 Ectopic 07/2015 ECTOPIC 9 SAB 03/2014 SAB 8 SAB 07/2013 SAB 7 SAB 09/2012 SAB 6 SAB 04/2012 SAB 5 Term 11/21/10 37w0d 3147 g (6 lb 15 oz) M CS-LTranv EPI N PITA Complications: Failure to Progress in First Stage,Preeclampsia,Cholestasis during in third trimester Comments: No observed anomalies 4 2009 SAB 3 SAB 2007 SAB 2 SAB 2006 SAB 1 SAB 2004 SAB PMHx: Past Medical History: Diagnosis Date ??? Anxiety Zoloft ??? Bipolar affective disorder ??? Depression bipolar ??? Herniated cervical disc ??? High cholesterol ??? Hyperemesis gravidarum ??? Migraines ??? MRSA (methicillin resistant Staphylococcus aureus) 08/2009 cysts on leg, never cultured-told it was staph and was given medication ??? Nutritional anemia, unspecified ??? PCOS (polycystic ovarian syndrome) ??? Trichimoniasis 2006 PSHx: Past Surgical History: Procedure Laterality Date ??? HCHG DILITATION AND CURETTAGE 01/14/2014 ??? HX CHOLECYSTECTOMY 02/2010 ??? HX CRANIOTOMY 2016 ??? HX DILATION AND CURETTAGE 01/2014 per fertility MD ??? HX EAR SURGERY ??? HX LEFT OOPHORECTOMY ??? HX LYMPH NODE DISSECTION 10/2014 armpit ??? LAP CHOLECYSTECTOMY ??? AK DELIVERY ONLY 11/21/2010 SECTION performed by KEO JULIEN at [facility] L&D ??? AK DELIVERY ONLY N/A 09/13/2016 SECTION performed by Keo Julien MD at [facility] L&D ??? AK LAP,RMV ADNEXAL STRUCTURE N/A 08/06/2015 LEFT SALPINGECTOMY LAPAROSCOPIC FOR ECTOPIC performed by Ayde Judge MD at [facility] OR MAIN PSocHX: Social History Substance Use Topics ??? Smoking status: Former Smoker Packs/day: 0.50 Years: 10.00 Types: Cigarettes ??? Smokeless tobacco: Never Used ??? Alcohol use No Medications: Vitamin B6, Reglan, Protonix, Buspirone, Zonegran, Zofran, Metformin, Albuterol, PNV, Trintellix Allergies Allergen Reactions ??? Adhesive Other (See Comments) Skin irritation ??? Other Drug [Unclassified Drug] Other (See Comments) control pills cause vaginal bleeding Physical Exam: Vitals: 06/26/18 1806 06/26/18 1929 BP: 133/78 Pulse: 78 Resp: 20 18 Temp: 97.3 ??F (36.3 ??C) TempSrc: Oral Weight: 104.6 kg (230 lb 8 oz) Height: 5' 6 (1.676 m) General: Well-developed, well-nourished female in [facility] HEENT: Normocephalic, atraumatic. Mucus membranes pink Heart: acyanotic, RRR Lungs: unlabored, CTAB Abdomen: soft, gravid, NT Extremities: No clubbing, cyanosis, or edema. No calf tenderness. SVE: def SSE: def Non-Stress Test Indication: GDM Gestational Age: 37w3d Baseline: 1254 bpm Variability: moderate Accelerations: present Decelerations: Absent TOCO: CTXs no Interpretation: reactive NST: category 1 Results for orders placed or performed during the hospital encounter of 06/26/18 (from the past 24 hour(s)) COMPREHENSIVE METABOLIC PANEL Result Value Ref Range SODIUM 137 136 - 145 mmol/L POTASSIUM 3.5 3.5 - 5.0 mmol/L CHLORIDE 100 98 - 107 mmol/L CO2 22 22 - 29 mmol/L CALCIUM 9.8 8.6 - 10.2 mg/dL BUN 5 (L) 6 - 20 mg/dL CREATININE 0.51 0.51 - 0.95 mg/dL GLUCOSE 105 (H) 74 - 99 mg/dL TOTAL PROTEIN 6.6 (L) 6.7 - 8.6 g/dL ALBUMIN 3.6 3.5 - 5.2 g/dL BILIRUBIN TOTAL 0.4 0.3 - 1.2 mg/dL ALKALINE PHOSPHATASE 221 (H) 35 - 104 U/L AST 38 (H) <33 U/L ALT 42 (H) <34 U/L GFR >60 >=60 mL/min/1.73 sq meter GFR, >60 >=60 mL/min/1.73 sq meter ANION GAP 15 8 - 16 mmol/L CBC WITH DIFFERENTIAL Result Value Ref Range WBC 6.7 4.0 - 9.8 K/uL RBC 4.57 3.90 - 4.90 M/uL HEMOGLOBIN 13.7 11.8 - 14.8 g/dL HEMATOCRIT 40.1 35.5 - 44.0 % MCV 87.7 82.0 - 99.0 fL MCH 30.0 27.2 - 32.6 pg MCHC 34.2 31.5 - 35.5 g/dL RDW 14.2 11.5 - 14.5 % RDW-STDEV 44.6 37.1 - 48.7 fL PLATELETS 302 140 - 350 K/uL MPV 9.5 9.3 - 12.4 fL NEUTROPHILS 66 % LYMPHOCYTES 26 % MONOCYTES 7 % EOSINOPHILS 1 % BASOPHILS 0 % IMMATURE GRANULOCYTES 0 % NEUTROPHIL ABSOLUTE 4.38 1.90 - 7.00 K/uL LYMPHOCYTE ABSOLUTE 1.73 0.70 - 4.50 K/uL MONOCYTE ABSOLUTE 0.47 0.10 - 1.30 K/uL EOSINOPHIL ABSOLUTE 0.03 0.00 - 0.70 K/uL BASOPHILS ABSOLUTE 0.02 0.00 - 0.20 K/uL IMMATURE GRANULOCYTES ABSOLUTE 0.02 0.00 - 0.03 K/uL POC GLUCOSE Result Value Ref Range POC GLUCOSE 113 (H) 74 - 99 mg/dL RAZOR GRINDER NAME CHRISTIAN LISANDRO Assessment/Plan: 33 y.o. IUP @ 37w3d 1. Itching -cannot rule out cholestasis. AST/ALT 38/42 2. GDM -bedside glucose 113 on admission 3. status reassuring: FHR tracing Category I 1944: Discussed with Dr. Julien. Pt to be discharge and go directly to [facility] for repeat and tubal ligation. To remain NPO. status reassuring Nakul Sahu NP SEWER documented in this encounter Plan of Treatment Upcoming Encounters Date Type Department Care Team (Late st Contact Info) Description 10/14/2024 11:00 AM TICK SEWER Office Visit [facility] Oncology and Hematology - [place] [facility] [address] [place] [address] Ubaldo Cardenas MD [address] [facility] [address] [place] [address] documented as of this encounter Procedures Procedure Name Priority Date/Time Associated Diagnosis Comments POC GLUCOSE Routine 06/26/2018 6:41 PM TICK SEWER CBC WITH DIFFERENTIAL Stat 06/26/2018 6:24 PM TICK SEWER COMPREHENSIVE METABOLIC PANEL Stat 06/26/2018 6:24 PM TICK SEWER (BROTH-ENRICHED) GROUP B STREP DETECTION Routine 06/20/2018 HIV DETECTION W/REFLX CONFIRMATION Routine 11/29/2017 HEPATITIS B SURFACE ANTIGEN Routine 11/29/2017 RUBELLA IGG Routine 11/29/2017 RPR Routine 11/29/2017 TYPE AND SCREEN Routine 11/29/2017 documented in this encounter Results * (ABNORMAL) POC GLUCOSE (06/26/2018 6:41 PM TICK SEWER) GLUCOSE POC 113(H) 74 - 99 mg/dL 06/26/2018 6:52 PM TICK SEWER [facility] LABORATORY SERVICES - [facility] RAZOR GRINDER NAME POC LISANDRO GONZALES 06/26/2018 6:52 PM [facility] LABORATORY SERVICES - [facility] Whole blood specimen (specimen) 06/26/2018 6:41 PM TICK SEWER 06/26/2018 6:52 PM TICK SEWER Keo Julien MD POINT OF CARE TESTIN G [facility] [employer] SERVICES - [facility] CLIA# [id number] [facility] [place] [place] [address] * CBC WITH DIFFERENTIAL (06/26/2018 6:24 PM TICK SEWER) WBC 6.7 4.0 - 9.8 K/uL 06/26/2018 6:47 PM [facility] [employer] SERVICES - . [facility] RBC 4.57 3.90 - 4.90 M/uL 06/26/2018 6:47 PM [facility] LABORATORY SERVICES - . [facility] HEMOGLOBIN 13.7 11.8 - 14.8 g/dL 06/26/2018 6:47 PM TICK SEWER [facility] LABORATORY SERVICES - . [facility] HEMATOCRIT 40.1 35.5 - 44.0 % 06/26/2018 6:47 PM TICK SEWER [facility] - [facility] MCV 87.7 82.0 - 99.0 fL 06/26/2018 6:47 PM TICK SEWER [facility] LABORATORY SERVICES - . [facility] MCH 30.0 27.2 - 32.6 pg 06/26/2018 6:47 PM [facility] LABORATORY SERVICES - . [facility] MCHC 34.2 31.5 - 35.5 g/dL 06/26/2018 6:47 PM [facility] LABORATORY SERVICES - [facility] RDW 14.2 11.5 - 14.5 % 06/26/2018 6:47 PM TICK SEWER [facility] LABORATORY SERVICES - . [facility] RDW-STDEV 44.6 37.1 - 48.7 fL 06/26/2018 6:47 PM TICK SEWER [facility] LABORATORY SERVICES - . [facility] PLATELETS 302 140 - 350 K/uL 06/26/2018 6:47 PM [facility] LABORATORY SERVICES - . [facility] MPV 9.5 9.3 - 12.4 fL 06/26/2018 6:47 PM [facility]AT[facility] - [facility] NEUTROPHILS 66 % 06/26/2018 6:47 PM [facility] LABORATORY SERVICES - [facility] LYMPHOCYTES 26 % 06/26/2018 6:47 PM [facility] LAB[facility]ATORY SERVICES - [facility] MONOCYTES 7 % 06/26/2018 6:47 PM [facility] LAB[facility]ATORY SERVICES - [facility] EOSINOPHILS 1 % 06/26/2018 6:47 PM [facility] LABORATORY SERVICES - [facility] BASOPHILS 0 % 06/26/2018 6:47 PM [facility] LABORATORY [facility] - [facility] IMMATURE GRANULOCYTES 0 % 06/26/2018 6:47 PM [facility] LABORATORY [facility] NEUTROPHIL ABSOLUTE 4.38 1.90 - 7.00 K/uL 06/26/2018 6:47 PM [facility] LABORATORY SERVICES - [facility] LYMPHOCYTE ABSOLUTE 1.73 0.70 - 4.50 K/uL 06/26/2018 6:47 PM [facility] LABORATORY [facility] MONOCYTE ABSOLUTE 0.47 0.10 - 1.30 K/uL 06/26/2018 6:47 PM [facility] LABORATORY [facility] EOSINOPHIL ABSOLUTE 0.03 0.00 - 0.70 K/uL 06/26/2018 6:47 PM [facility] LABORATORY SERVICES - [facility] BASOPHILS ABSOLUTE 0.02 0.00 - 0.20 K/uL 06/26/2018 6:47 PM [facility] LABORATORY [facility] IMMATURE GRANULOCYTES ABSOLUTE 0.02 0.00 - 0.03 K/uL 06/26/2018 6:47 PM [facility] LABORATORY [facility] Blood Venipuncture / Unknown 06/26/2018 6:24 PM TICK SEWER 06/26/2018 6:33 PM TICK SEWER Nakul Sahu JAVA DEVELOPMENT TEAM LEAD HEMATOLOGY ORDERA BLES [facility] [employer] SERVICES [facility] CLIA# [id number] [facility] [address] [place] [address] * (ABNORMAL) COMPREHENSIVE METABOLIC PANEL (06/26/2018 6:24 PM TICK SEWER) SODIUM 137 136 - 145 mmol/L 06/26/2018 7:03 PM TICK SEWER [facility] LABORATORY SERVICES - . [facility] POTASSIUM 3.5 3.5 - 5.0 mmol/L 06/26/2018 7:03 PM [facility] LABORATORY SERVICES - [facility] CHLORIDE 100 98 - 107 mmol/L 06/26/2018 7:03 PM [facility] CO2 22 22 - 29 mmol/L 06/26/2018 7:03 PM [facility] CALCIUM 9.8 8.6 - 10.2 mg/dL 06/26/2018 7:03 PM [facility] LABORATORY SERVICES - . [facility] BUN 5(L) 6 - 20 mg/dL 06/26/2018 7:03 PM [facility] LABORATORY SERVICES - . [facility] CREATININE 0.51 0.51 - 0.95 mg/dL 06/26/2018 7:03 PM [facility] LABORATORY [facility] - . [facility] GLUCOSE 105(H) 74 - 99 mg/dL 06/26/2018 7:03 PM [facility] - . [facility] TOTAL PROTEIN 6.6(L) 6.7 - 8.6 g/dL 06/26/2018 7:03 PM [facility] LABORATORY [facility] - . [facility] ALBUMIN 3.6 3.5 - 5.2 g/dL 06/26/2018 7:03 PM [facility] LABORATORY SERVICES - . [facility] BILIRUBIN TOTAL 0.4 0.3 - 1.2 mg/dL 06/26/2018 7:03 PM [facility] LABORATORY [facility] - . [facility] ALKALINE PHOSPHATASE 221(H) 35 - 104 U/L 06/26/2018 7:03 PM [facility] LABORATORY SERVICES [facility]. [facility] AST 38(H) <33 U/L 06/26/2018 7:03 PM [facility] LABORATORY [facility]. [facility] ALT 42(H) <34 U/L 06/26/2018 7:03 PM [facility] LABORATORY [facility] - . [facility] GFR >60 >=60 mL/min/1.7 3 sq meter 06/26/2018 7:03 PM [facility] LABORATORY SERVICES - . [facility] Comment: eGFR has not been validated for [...] GFR, >60 >=60 mL/min/1.7 3 sq meter 06/26/2018 7:03 PM TICK SEWER [facility] LABORATORY SERVICES [facility] ANION GAP 15 8 - 16 mmol/L 06/26/2018 7:03 PM TICK SEWER [facility] LABORATORY SERVICES - [facility] Blood Venipuncture / Unknown 06/26/2018 6:24 PM TICK SEWER 06/26/2018 6:33 PM TICK SEWER Narrative [facility] LABORATORY SERVICES - [facility] - 06/26/2018 7:03 PM TICK SEWER Samples containing indocyanine green cause interferences on Total and/or Direct Bilirubin and must not be measured. Nakul Sahu JAVA DEVELOPMENT TEAM LEAD CHEMISTRY ORDERAB LES Performing Organization Address City/[facility]/ZIP Co de Phone Number [facility] LABORATORY [facility] CLIA# [id number] [address] [place] [address] * (BROTH-ENRICHED) GROUP B STREP DETECTION (06/20/2018) ABSTRACTED STREP GROUP B CULTURE Negative NON [facility] Historical Provider MICROBIOLOGY - GENER AL ORDERABLES Performing Organization Address [facility]/ZIP Co de Phone Number NON [facility] * RPR (11/29/2017) ABSTRACTED RPR Non-reacti ve NON [facility] Blood Historical Provider CHEMISTRY ORDERABLES NON [facility] * TYPE AND SCREEN (11/29/2017) ABSTRACTED ABOGROUP B NON [facility] ABSTRACTED RH(D) TYPE Positive NON [facility] Blood Historical Provider BLOOD BANK ORDERABLE S Performing Organization Address City/[facility]/ZIP Co de Phone Number NON [facility] * HIV DETECTION W/REFLX CONFIRMATION (11/29/2017) ABSTRACTED HIV-1 AND 2 ABS Negative NON [facility] Blood Historical Provider CHEMISTRY ORDERABLES NON [facility] * HEPATITIS B SURFACE ANTIGEN (11/29/2017) ABSTRACTED HEPATITIS B SURFACE AG Negative NON [facility] Blood Historical Provider CHEMISTRY ORDERABLES NON [facility] * RUBELLA IGG (11/29/2017) ABSTRACTED RUBELLA IGG Immune NON [facility] Blood Historical Provider CHEMISTRY ORDERABLES NON [facility] documented in this encounter Visit Diagnoses Not on filedocumented in this encounter Care Teams Gasoline Dragline Operator Relationship Specialty Start Date End Date Rachid Colindres DO [address] [phone] PCP - General Geriatric Medicine 01/06/18 11/14/23 documented as of this encounter
--- OUTSIDE RECORDS SUMMARY | 2024-08-03 01:40 | XMS_ITS | Encounter Summary ---
Author Organization [facility] Address [address] Weiss: Epic Prelude ADT [place] [address] Care Team Providers Care Journeyman Pipefitter Name Role Phone Rachid Colindres DO Primary Care Provider Encounter Details Date Type Department Care Team (Latest Contact Info) Description 09/14/2021 Travel Social History Tobacco Use Types Packs/Day [...] have Coronavirus / COVID-19? No / Unsure 09/14/2021 9:53 PM HAND KNITTER documented as of this encounter Plan of Treatment Upcoming Encounters Date Type Department Care Team (Late st Contact Info) Description 10/14/2024 11:00 AM HAND KNITTER Office Visit [facility] Oncology and Hematology - [place] [address] [place] [address] Ubaldo Cardenas MD [address] [facility] [address] [place] [address] documented as of this encounter Visit Diagnoses Not on filedocumented in this encounter Care Teams Journeyman Pipefitter Relationship Specialty Start Date End Date Rachid Colindres DO [address] [phone] PCP - General Geriatric Medicine 01/06/18 11/14/23 documented as of this encounter
--- OUTSIDE RECORDS SUMMARY | 2024-08-03 01:40 | XMS_ITS | Encounter Summary ---
Author Organization [facility] Address [address] Weiss: Epic Prelude ADT [place] [address] Care Team Providers Care Dial Screw Assembler Name Role Phone Rachid Colindres DO Primary Care Provider Encounter Details Date Type Department Care Team (Latest Contact Info) Description 09/13/2020 Travel Social History Tobacco Use Types Packs/Day [...] COVID-19? No / Unsure 09/13/2020 4:18 PM GERIATRIC NURSE PRACTITIONER documented as of this encounter Plan of Treatment Upcoming Encounters Date Type Department Care Team (Late st Contact Info) Description 10/14/2024 11:00 AM GERIATRIC NURSE PRACTITIONER Office Visit [facility] Oncology and Hematology - [place] [address] [facility] [address] [place] [address] Ubaldo Cardenas MD [address] [facility] [address] [place] [address] documented as of this encounter Visit Diagnoses Not on filedocumented in this encounter Additional Health Concerns Infection Onset Date Last Indicated Resolved Time COVID-19 08/24/2020 08/24/2020 09/23/2020 1:16 AM GERIATRIC NURSE PRACTITIONER documented as of this encounter Care Teams Dial Screw Assembler Relationship Specialty Start Date End Date Rachid Colindres DO [address] [phone] PCP - General Geriatric Medicine 01/06/18 11/14/23 documented as of this encounter
--- OUTSIDE RECORDS SUMMARY | 2024-08-03 01:40 | XMS_ITS | Encounter Summary ---
Author Organization [facility] Address [address] [place] [address] Care Team Providers Care Preschool Substitute Teacher Name Role Phone Rachid Colindres Primary Care Provider Reason for Visit * Reason Comments Headache To ED with friend wi th 5 day hx of ANAND that has gotten progressively worse. Hx of brain surgery in 2017. C/O blurred vision, ears ringing, increased ANAND & dizziness with activity. No N/V. No fever or recent illness * Auth/Cert Specialty Diagnoses / Procedures Referred By Reva holbrook Referred To Contact Emergency Medicine [facility] Emergency Dept [address] [place] [address] Referral ID Status Reason Start Date Expiration Date Visits Re quested Visits Authorized [id number] 1 1 Encounter Details Date Type Department Care Team (Late st Contact Info) Description 09/14/2021 9:04 PM PROVIDER ENROLLMENT SPECIALIST - 09/14/2021 11:42 PM PROVIDER ENROLLMENT SPECIALIST Emergency [facility] Emergency Department [address] [place] [address] [place] [address] [place] [address] Nonintractable headache, unspecified chronicity pattern, unspecified headache type (Primary Dx) Discharge Disposition: Home or Self Care Social [...] COVID-19? No / Unsure 09/14/2021 9:53 PM PROVIDER ENROLLMENT SPECIALIST documented as of this encounter Last Filed Vital Signs Vital Sign Reading Time Taken Comments Blood Pressure 100/51 09/14/2021 11:39 PM PROVIDER ENROLLMENT SPECIALIST Pulse 64 09/14/2021 11:39 PM PROVIDER ENROLLMENT SPECIALIST Temperature 36.6 ??C (97.9 ??F) 09/14/2021 11:[address] Respiratory Rate 17 09/14/2021 11:39 PM PROVIDER ENROLLMENT SPECIALIST Oxygen Saturation 98% 09/14/2021 11:39 PM PROVIDER ENROLLMENT SPECIALIST Inhaled Oxygen Concentration - - Weight 78 kg (172 lb) 09/14/2021 9:00 PM PROVIDER ENROLLMENT SPECIALIST Height - - Body Mass Index 27.76 09/14/2020 12:47 PM PROVIDER ENROLLMENT SPECIALIST documented in this encounter Discharge Instructions * Attachments The following attachments cannot be sent through Care Everywhere. * Headache (Setswana) documented in this encounter ED Notes * Gisele Martinez RN - 09/14/2021 11:39 PM CST Discharge instructions reviewed with patient. Patient verbalizes understanding of teaching and needfor follow up care. Pt denies any other needs or concerns at this time. IDER ENROLLMENT SPECIALIST * Stephani Hauser RN - 09/14/2021 11:05 PM CST Patient/family has been informed about benefits and any potential clinically significant side effects or other concerns regarding the administration of the drug they have just been given. IDER ENROLLMENT SPECIALIST * Stephani Hauser RN - 09/14/2021 10:11 PM CST Patient/family has been informed about benefits and any potential clinically significant side effects or other concerns regarding the administration of the drug they have just been given. IDER ENROLLMENT SPECIALIST * Stephani Hauser RN - 09/14/2021 9:20 PM CST MD Romero at bedside to assess IDER ENROLLMENT SPECIALIST * Stephani Hauser RN - 09/14/2021 9:15 PM CST Chief Complaint Patient presents with ??? Headache To ED with friend with 5 day hx of ANAND that has gotten progressively worse. Hx of brain surgery [id number]. C/O blurred vision, ears ringing, increased ANAND & dizziness with activity. No N/V. No fever or recent illness 36yo F to ED with c/o ANAND that started Sunday night and has since gotten worse. Per pt history of brain tumor and surgery and this feels the same if not worse . Pt states pain in head and into shoulder blades that Feels like I have sandbags on my shoulders . Pt states that she has a wooshing sound when standing up. Pt states HX of migraines prior to surgery that lasted about a year after surgery but have since tapered off. Pt denies NV or recent illness. Pt placed on intermittent BP and continuous SpO2 monitoring. IDER ENROLLMENT SPECIALIST * Fabricio Romero MD - 09/14/2021 8:55 PM CST History of Present Illness Primary Care Doctor: Rachid Colindres DO Documented Triage Chief Complaint: Headache Vera Vitale is a pleasant 36 y.o. female who presents with several days of dull headache, improved with tylenol/excedrine but returned. Pain is occipital, bilateral. No photophobia, gradual onset. 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 Had headaches at that time but this feels different. No known CO exposure though smokes cigarettes. Onset: gradual Severity: moderate Duration: several days Frequency/Progression: intermittent Quality: dull Radiation: none Modifiers: none Associated symptoms: tinnitus Patient information was obtained from primarily from the patient History/Exam limitations: Review of Systems ?? A comprehensive review of systems was completed. See HPI for additional ROS Constitutional: No Fever, No chills ENT: No rhinorrhea, No sore throat Eyes: No vision change, no photophobia Respiratory: No cough, No dyspnea Cardiac: No chest pain, No palpitations GI: No abdominal pain, no nausea, no vomiting, no diarrhea : No dysuria, no hematuria Musculoskeletal: No joint pain, no muscle aches Skin: No rash Heme: No spontaneous bleeding, no bruising Neuro: No weakness, +headache Psych: No hallucinations, no acute change in mood Relevant Medical History Past Medical History: Past [...] DISSECTION 10/2014 armpit ??? LAP CHOLECYSTECTOMY ??? [place] DELIVERY ONLY 11/21/2010 SECTION performed by KEO JULIEN at [facility] L[facility]D ??? [place] DELIVERY ONLY N/A 09/13/2016 SECTION performed by Keo Julien MD at [facility] L&D ??? [place] LAP,RMV ADNEXAL STRUCTURE N/A 08/06/2015 LEFT SALPINGECTOMY LAPAROSCOPIC FOR ECTOPIC performed by Ayde Judge MD at [facility] OR [facility] ??? PT DENIES RELEVANT SURGICAL HISTORY Home Medications: Denies any home medications except tylenol, excedrine, ibuprofen Allergies: Adhesive and Unclassified drug Social History: Smokes cigarettes Family History: family history includes Diabetes in her brother and father; Hypertension in her mother; Thyroid Disease in her father. Physical Exam ED Triage Vitals [09/14/212099] Enc Vitals Group BP (!) 146/86 Pulse 84 Resp 20 Temp 98.3 ??F (36.8 ??C) Temp src Oral SpO2 99 % Weight 172 lb Height Head Circumference Peak Flow Pain Score Pain Loc Pain Edu? Excl. in GC? Vitals: 09/14/212099 Temp: 98.3 ??F (36.8 ??C) Pulse: 84 Heart Rate: 84 bpm BP: (!) 146/86 Resp: 20 SpO2: 99% Body mass index is 27.76 kg/m??. General: Alert, no obvious distress HEENT: Normocephalic, atraumatic, Throat clear, Nose without drainage, mucous membranes moist Neck: No JVD, supple Back: Not tender Chest Wall: No tenderness, injury or deformity Heart: RRR without murmur Lungs: CTA = Bilat Abdomen: Soft, non-tender, normal bowel sounds Rectal: Not performed Extremities: No edema, no calf tenderness Skin: No rash, no petechiae, no purpura Lymphatic: No lymphadenopathy noted Neuro: Cranial nerves II, III, IV, and VII intact and symmetric bilaterally, DTRs 2+ throughout,motor 5/5 throughout, no pronator drift, no lower extremity drift, sensory intact to light touch Psychiatric: normal affect and mood. Other: Studies and Interpretation Pulse Oximetry Interpretation: Saturation: 99% Oxygen Delivery: Room Air Interpretation: Not hypoxic Imaging (all imaging was independently reviewed by me if performed): CT HEAD WO CONTRAST Radiologist Impression IMPRESSION: 1. No acute intracranial hemorrhage. 2. Prior right frontal craniotomy near the vertex. 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 Comparison with prior imaging and surgical history recommended. The examination was performed with the adjustment of mA according to the patient size and/or the use of Iterative Reconstruction Technique. DICTATION LOCATION: Location - [facility] Lab: (Reviewed by me if performed), Significant for: Labs Reviewed BLOOD GAS,(INCL. H+H, LYTES, GLUC) - Abnormal; Notable for the following components: Result Value PCO2 POC 33 (*) PO2 POC 49 (*) HCO3 (CALC) POC 21 (*) O2 SATURATION POC 82 (*) GLUCOSE POC 124 (*) POTASSIUM POC 3.3 (*) CALCIUM IONIZED POC 4.6 (*) PCO2 TEMP CORRECT 33 (*) PO2 TEMP CORRECT 49 (*) All other components within normal limits OXIMETRY - Abnormal; Notable for the following components: OXYHEMOGLOBIN POC 76.5 (*) O2 SATURATION POC 82 (*) All other components within normal limits POC LACTIC ACID - Abnormal; Notable for the following components: LACTIC ACID POC 2.1 (*) All other components within normal limits CARBOXYHEMOGLOBIN METHEMOGLOBIN QUANTITATIVE CBC WITH DIFFERENTIAL COMPREHENSIVE METABOLIC PANEL URINALYSIS WITH REFLEX MICROSCOPIC Results for orders placed or performed during the hospital encounter of 09/14/21 (from the past 24 hour(s)) CARBOXYHEMOGLOBIN Result Value Ref Range CARBOXYHEMOGLOBIN POC 5.3 <=7.0 % HEMOGLOBIN POC 14.6 11.8 - 14.8 g/dL COMMENT, GASES POC RN/MD NOTIFIED BLOOD GAS,(INCL. H+H, LYTES, GLUC) Result Value Ref Range PH BLOOD POC 7.41 7.32 - 7.43 PCO2 POC 33 (L) 38 - 50 mm Hg PO2 POC 49 (H) 25 - 40 mm Hg TCO2 (CALC) POC 22 22 - 26 mmol/L HCO3 (CALC) POC 21 (L) 22 - 29 mmol/L O2 SATURATION POC 82 (H) 40 - 70 % BASE EXCESS POC -3 No Reference Range Established mmol/L HEMOGLOBIN POC 14.6 11.8 - 14.8 g/dL GLUCOSE POC 124 (H) 74 - 99 mg/dL SODIUM POC 135 135 - 145 mmol/L POTASSIUM POC 3.3 (L) 3.5 - 4.9 mmol/L CHLORIDE POC 103 98 - 107 mmol/L CALCIUM IONIZED POC 4.6 (L) 4.7 - 5.1 mg/dL PH TEMP CORRECT 7.41 7.32 - 7.43 PCO2 TEMP CORRECT 33 (L) 38 - 50 mm Hg PO2 TEMP CORRECT 49 (H) 25 - 40 mm Hg SPECIMEN SOURCE, GASES POC Venous PATIENT'S TEMPERATURE POC 37.0 degrees COMMENT, GASES POC RN/MD NOTIFIED METHEMOGLOBIN QUANTITATIVE Result Value Ref Range METHEMOGLOBIN QUANT POC 0.8 <=1.5 % HEMOGLOBIN POC 14.6 11.8 - 14.8 g/dL COMMENT, GASES POC RN/MD NOTIFIED OXIMETRY Result Value Ref Range OXYHEMOGLOBIN POC 76.5 (L) 94.0 - 97.0 % HEMOGLOBIN POC 14.6 11.8 - 14.8 g/dL O2 SATURATION POC 82 (H) 40 - 70 % SPECIMEN SOURCE, GASES POC Venous SAMPLE SITE, GASES POC N-SY COMMENT, GASES POC RN/MD NOTIFIED POC LACTIC ACID Result Value Ref Range LACTIC ACID POC 2.1 (H) <=2.0 mmol/L SPECIMEN SOURCE, GASES POC Venous COMMENT, GASES POC RN/MD NOTIFIED Note: Some lab and radiology results in this note may have populated the note after my interaction with the patient and may not have been available while the patient was under my care. Medical Decision Making and ED Course Medical Decision Making: Differential diagnosis includes: ACCOUNTS RECEIVABLE SUPERVISOR Bleed, SAH, Tension Headache, Migraine, Cluster Headache, Meningitis, CVA, Arterial Dissection, Temporal Arteritis, Tumor, Mass, Abscess No signs concerning for meningitis, GCA, SAH. Normal neuro exam. CT Head unremarkable (compared with readings from old studies at OSH). Improved with meds given in ED. Will d/c home with close f/u. Clear RTER instructions. Progress Note(s) Improved with meds as below. Case Discussed: Procedures: Amount and/or Complexity of Data Reviewed --I reviewed the labs and/or radiology studies, vital signs, and nursing notes. I agree with the nursing notes except as noted in the body of this record. --Clinical lab tests: ordered and reviewed --Independent visualization of images, tracings, or specimens (including EKGs): yes --Reviewed past medical records: yes --Previous electrocardiograms reviewed: --Discuss the patient with other providers: Condition at disposition: Stable 2342: I updated the patient on findings, diagnosis, and plan for discharge. Any prescriptions givenare listed below and they were instructed to follow up with the given provider. Pt agrees with the plan and is comfortable going home. The patient is clinically well; my impression is that at this time, they are safe for discharge. I have spent time counseling the patient on their diagnosis, findings, results, and plan including strict return to ER instructions for this diagnosis and mandatory follow up. ED provider and ED nurse verbally discussed patient plan of care at this time. Vitals at Discharge: BP 100/51 Pulse 64 Temp 97.9 ??F (36.6 ??C) (Oral) Resp 17 Wt 78 kg (172 lb) LMP 08/24/2021 SpO2 98% BMI 27.76 kg/m?? New Prescriptions: Discharge Medication List as of 09/14/2021 11:28 PM START taking these medications Details [id number] (FIORICET) 50-325-40 mg tablet Take 1 Tablet by mouth every 4 hours as needed for Migraine., Disp-15 Tablet, R-0 Follow Up: Rachid Colindres DO [address] [facility] [place] [address] In 1 week Diagnosis: Encounter Diagnoses Code Name Primary? R51.9 Nonintractable headache, unspecified chronicity pattern, unspecified headache type Yes Disposition: Discharge Note: This H+P was created with the aid of dictation software, thus there may be some word substitutions or errors. IDER ENROLLMENT SPECIALIST documented in this encounter Plan of Treatment Upcoming Encounters Date Type Department Care Team (Late st Contact Info) Description 10/14/2024 11:00 AM PROVIDER ENROLLMENT SPECIALIST Office Visit [facility] Oncology and Hematology - [place] [address] [place] [address] Ubaldo Cardenas MD [address] [facility] [place] [address] documented as of this encounter Procedures Procedure Name Priority Date/Time Associated Diagnosis Comments CT HEAD WO CONTRAST Stat 09/14/2021 9 :44 PM PROVIDER ENROLLMENT SPECIALIST POC LACTIC ACID Stat 09/14/2021 9:26 PM PROVIDER ENROLLMENT SPECIALIST BLOOD GAS,(INCL. H+H, LYTES, GLUC) Stat 09/14/2021 9:26 PM PROVIDER ENROLLMENT SPECIALIST OXIMETRY Stat 09/14/2021 9:26 PM PROVIDER ENROLLMENT SPECIALIST METHEMOGLOBIN QUANTITATIVE Stat 09/14/2021 9:26 PM PROVIDER ENROLLMENT SPECIALIST CARBOXYHEMOGLOBIN Stat 09/14/2021 9:2 6 PM PROVIDER ENROLLMENT SPECIALIST DIFFERENTIAL, MANUAL Stat 09/14/2021 9:25 PM PROVIDER ENROLLMENT SPECIALIST CBC WITH DIFFERENTIAL Stat 09/14/2021 9:25 PM PROVIDER ENROLLMENT SPECIALIST COMPREHENSIVE METABOLIC PANEL Stat 09/14/2021 9:25 PM PROVIDER ENROLLMENT SPECIALIST documented in this encounter Results * CT HEAD WO CONTRAST (09/14/2021 9:44 PM PROVIDER ENROLLMENT SPECIALIST) Anatomical Region Laterality Modality Head Computed Tomogra phy 09/14/2021 10:0 3 PM PROVIDER ENROLLMENT SPECIALIST Impressions 09/14/2021 10:17 PM PROVIDER ENROLLMENT SPECIALIST IMPRESSION: 1. ??No acute intracranial hemorrhage. 2. ??Prior right frontal craniotomy near the vertex. 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 Comparison with prior imaging and surgical history recommended. ?? The examination was performed with the adjustment of mA according to the patient size and/or the use of Iterative Reconstruction Technique. ?? DICTATION LOCATION: Location 1 [facility] 09/14/2021 10:17 PM PROVIDER ENROLLMENT SPECIALIST CT OF THE HEAD WITHOUT CONTRAST ?? DATE: 09/14/2021 9:44 PM CLINICAL INDICATION: ??Headache. Prior brain surgery. TECHNIQUE: ??Multiple contiguous axial CT images were obtained from the base of the skull to the vertex without administration of intravenous contrast material. Coronal and sagittal reconstructions are performed on the axial source data. COMPARISON: None. FINDINGS: Prior right frontal craniotomy near the vertex. The ventricles and sulci are unremarkable for the patient's age. No acute intracranial hemorrhage or extra-axial fluid collection is identified. Suspected small focus of encephalomalacia at the body of the corpus callosum at midline and to the left of midline. There is no midline shift or mass effect. ??The basal cisterns are patent. No displaced calvarial fracture is identified. The visualized portions of the globes and orbits appear normal. The visualized paranasal sinuses are unremarkable. ??The mastoid air cells are clear. ?? INCIDENTAL FINDINGS: ??None. Procedure Note Ron Diamond MD - 09/14/2021 CT OF THE HEAD WITHOUT CONTRAST DATE: 09/14/2021 9:44 PM CLINICAL INDICATION: Headache. Prior brain surgery. TECHNIQUE: Multiple contiguous axial CT images were obtained from the base of the skull to the vertex without administration of intravenous contrast material. Coronal and sagittal reconstructions are performed on the axial source data. COMPARISON: None. FINDINGS: Prior right frontal craniotomy near the vertex. The ventricles and sulci are unremarkable for the patient's age. No acute intracranial hemorrhage or extra-axial fluid collection is identified. Suspected small focus of encephalomalacia at the body of the corpus callosum at midline and to the left of midline. There is no midline shift or mass effect. The basal cisterns are patent. No displaced calvarial fracture is identified. The visualized portions of the globes and orbits appear normal. The visualized paranasal sinuses are unremarkable. The mastoid air cells are clear. INCIDENTAL FINDINGS: None. IMPRESSION: 1. No acute intracranial hemorrhage. 2. Prior right frontal craniotomy near the vertex. 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 Comparison with prior imaging and surgical history recommended. The examination was performed with the adjustment of mA according to the patient size and/or the use of Iterative Reconstruction Technique. DICTATION LOCATION: Location 1 - [facility] Fabricio Romero MD CT ORDERABLES * (ABNORMAL) POC LACTIC ACID (09/14/2021 9:26 PM PROVIDER ENROLLMENT SPECIALIST) LACTIC ACID POC 2.1(H) <=2.0 mmol/L 09/14/2021 9:26 PM PROVIDER ENROLLMENT SPECIALIST [facility] LABORATORY [facility] SPECIMEN SOURCE, GASES POC Venous 09/14/2021 9:26 PM PROVIDER ENROLLMENT SPECIALIST [facility] LABORATORY [facility] COMMENT, GASES POC RN/MD NOTIFIED 09/14/2021 9:26 PM PROVIDER ENROLLMENT SPECIALIST [facility] LABORATORY [facility] Blood 09/14/2021 9:26 PM PROVIDER ENROLLMENT SPECIALIST 09/14/2021 9:30 PM PROVIDER ENROLLMENT SPECIALIST Fabricio Romero MD POINT OF CARE TESTI NG Performing Organization Address City/[facility]/ZIP Co de Phone Number [facility]# [id number] [address] [place] [address] * (ABNORMAL) OXIMETRY (09/14/2021 9:26 PM PROVIDER ENROLLMENT SPECIALIST) [facility] OXYHEMOGLOBIN POC 76.5(L) 94.0 - 97.0 % 09/14/2021 9:26 PM PROVIDER ENROLLMENT SPECIALIST [facility] Veronica [facility] HEMOGLOBIN POC 14.6 11.8 - 14.8 g/dL 09/14/2021 9:[address] [facility] Veronica [facility] O2 SATURATION POC 82(H) 40 - 70 % 022 9:[address] [facility] Veronica [facility] SPECIMEN SOURCE, GASES POC Venous 09/14/2021 9:26 PM PROVIDER ENROLLMENT SPECIALIST [facility] Veronica [facility] SAMPLE SITE, GASES POC N-SY 09/14/2021 9:26 PM PROVIDER ENROLLMENT SPECIALIST [facility] Veronica [facility] COMMENT, GASES POC RN/MD NOTIFIED 09/14/2021 9:[address] [facility] Veronica [facility] Blood 09/14/2021 9:26 PM PROVIDER ENROLLMENT SPECIALIST 09/14/2021 9:30 PM PROVIDER ENROLLMENT SPECIALIST Fabricio Romero MD ABG ORDERABLES Performing Organization Address [facility]/ZIP Co de Phone Number [facility]# [id number] [address] [place] [address] * METHEMOGLOBIN QUANTITATIVE (09/14/2021 9:26 PM PROVIDER ENROLLMENT SPECIALIST) [facility] METHEMOGLOBIN QUANT POC 0.8 <=1.5 % 09/14/2021 9:26 PM PROVIDER ENROLLMENT SPECIALIST [facility] Veronica [facility] HEMOGLOBIN POC 14.6 11.8 - 14.8 g/dL 09/14/2021 9:26 PM PROVIDER ENROLLMENT SPECIALIST [facility] LABORATORY SERVICES - [facility] COMMENT, GASES POC RN/ NOTIFIED 09/14/2021 9:[address] [facility] LAB[facility] SERVICES [facility] Blood 09/14/2021 9:26 PM PROVIDER ENROLLMENT SPECIALIST 09/14/2021 9:30 PM PROVIDER ENROLLMENT SPECIALIST Fabricio Romero MD ABG ORDERABLES [facility] Veronica [facility]# [id number] [address] [facility] [place] [address] * (ABNORMAL) BLOOD GAS,(INCL. H+H, LYTES, GLUC) (09/14/2021 9:26 PM PROVIDER ENROLLMENT SPECIALIST) PH BLOOD POC 7.41 7.32 - 7.43 09/14/2021 9:[address] [facility] PCO2 POC 33(L) 38 - 50 mm Hg 09/14/2021 9:26 PM [facility] [address] [facility] PO2 POC 49(H) 25 - 40 mm Hg 09/14/2021 9:[address] [facility] TCO2 (CALC) POC 22 22 - 26 mmol/L 09/14/2021 9:26 PM [facility] [address] [facility] HCO3 (CALC) POC 21(L) 22 - 29 mmol/L 09/14/2021 9:[address] [facility] O2 SATURATION POC 82(H) 40 - 70 % 09/14/2021 9:26 PM [facility] [address] [facility] BASE EXCESS POC -3 No Reference Range Established mmol/L 09/14/2021 9:[address] [facility] HEMOGLOBIN POC 14.6 11.8 - 14.8 g/dL 09/14/2021 9:26 PM [facility] [address] [facility] GLUCOSE POC 124(H) 74 - 99 mg/dL 09/14/2021 9:26 PM [facility] [employer] LABORATORY SERVICES [facility] SODIUM POC 135 135 - 145 mmol/L 09/14/2021 9:26 PM [facility] [address] [facility] POTASSIUM POC 3.3(L) 3.5 - 4.9 mmol/L 09/14/2021 9:26 PM [facility] CHLORIDE POC 103 98 - 107 mmol/L 09/14/2021 9:26 PM [facility] CALCIUM IONIZED POC 4.6(L) 4.7 - 5.1 mg/dL 09/14/2021 9:[address] [facility] Veronica [facility] PH TEMP CORRECT 7.41 7.32 - 7.43 09/14/2021 9:26 PM [facility] PCO2 TEMP CORRECT 33(L) 38 - 50 mm Hg 09/14/2021 9:[address] [facility] Veronica [facility] PO2 TEMP CORRECT 49(H) 25 - 40 mm Hg 09/14/2021 9:[address] [facility] Veronica [facility] SPECIMEN SOURCE, GASES POC Venous 09/14/2021 9:[address] [facility] Veronica [facility] PATIENT'S TEMPERATURE POC 37.0 degrees 09/14/2021 9:[address] [facility] Veronica [facility] COMMENT, GASES POC RN/MD NOTIFIED 09/14/2021 9:[address] [facility] Veronica [facility] Blood, arterial 09/14/2021 9 :26 PM PROVIDER ENROLLMENT SPECIALIST 09/14/2021 9:30 PM PROVIDER ENROLLMENT SPECIALIST Fabricio Romero MD ABG ORDERABLES [facility] Veronica [facility]# [id number] [address] [facility] [place] [address] * CARBOXYHEMOGLOBIN (09/14/2021 9:26 PM PROVIDER ENROLLMENT SPECIALIST) CARBOXYHEMOGLOBIN POC 5.3 <=7.0 % 09/14/2021 9:[address] [facility] Veronica [facility] HEMOGLOBIN POC 14.6 11.8 - 14.8 g/dL 09/14/2021 9:[address] [facility] Veronica [facility] COMMENT, GASES POC RN/MD NOTIFIED 09/14/2021 9:[address] [facility] LABORATORY [facility] Blood 09/14/2021 9:26 PM PROVIDER ENROLLMENT SPECIALIST 09/14/2021 9:30 PM PROVIDER ENROLLMENT SPECIALIST Fabricio Romero MD ABG ORDERABLES [facility] CLIA# [id number] [address] [place] [address] * MANUAL DIFFERENTIAL (09/14/2021 9:25 PM PROVIDER ENROLLMENT SPECIALIST) PLATELET EST. Consistent w Count 09/14/2021 10:36 PM PROVIDER ENROLLMENT SPECIALIST [facility] - . [facility] ANISOCYTOSIS 1+ /hpf 09/14/2021 10:36 PM PROVIDER ENROLLMENT SPECIALIST [facility] . [facility] MICROCYTES 1+ /hpf 09/14/2021 10:36 PM PROVIDER ENROLLMENT SPECIALIST [facility] - [facility] Blood Venipuncture / Unknown 09/14/2021 9:25 PM PROVIDER ENROLLMENT SPECIALIST 09/14/2021 9:49 PM PROVIDER ENROLLMENT SPECIALIST Fabricio Romero MD HEMATOLOGY ORDERABL ES COM [facility] Veronica [facility] CLIA# [id number] [address] [place] [address] * (ABNORMAL) COMPREHENSIVE METABOLIC PANEL (09/14/2021 9:25 PM PROVIDER ENROLLMENT SPECIALIST) SODIUM 139 136 - 145 mmol/L 09/14/2021 10:23 PM PROVIDER ENROLLMENT SPECIALIST [employer] LABORATORY SERVICES - [facility] POTASSIUM 3.3(L) 3.5 - 5.0 mmol/L 09/14/2021 10:23 PM PROVIDER ENROLLMENT SPECIALIST [employer] LABORATORY SERVICES - . [facility] CHLORIDE 104 98 - 107 mmol/L 09/14/2021 10:23 PM PROVIDER ENROLLMENT SPECIALIST [employer] LABORATORY SERVICES - . [facility] CO2 21(L) 22 - 29 mmol/L 09/14/2021 10:23 PM PROVIDER ENROLLMENT SPECIALIST [facility] LABORATORY SERVICES - [facility] CALCIUM 9.5 8.6 - 10.2 mg/dL 09/14/2021 10:23 PM PROVIDER ENROLLMENT SPECIALIST [employer] LABORATORY SERVICES - . [facility] BUN 10 6 - 20 mg/dL 09/14/2021 10:[address] [facility] LABORATORY SERVICES - . [facility] CREATININE 0.71 0.51 - 0.95 mg/dL 09/14/2021 10:[address] [facility] LABORATORY SERVICES - [facility] GLUCOSE 110(H) 74 - 99 mg/dL 09/14/2021 10:[address] [facility] LABORATORY SERVICES - [facility] TOTAL PROTEIN 7.5 6.7 - 8.6 g/dL 09/14/2021 10:[address] [facility] LABORATORY SERVICES - [facility] ALBUMIN 4.5 3.5 - 5.2 g/dL 09/14/2021 10:23 PM [facility] BILIRUBIN TOTAL <0.2(L) 0.3 - 1.2 mg/dL 09/14/2021 10:23 PM [facility] ALKALINE PHOSPHATASE 104 35 - 104 U/L 09/14/2021 10:23 PM [facility] AST 24 <33 U/L 09/14/2021 10:23 PM [facility] ALT 24 <34 U/L 09/14/2021 10:23 PM [facility] [employer] LABORATORY SERVICES - [facility] GFR >60 >=60 mL/min/1. 73 sq meter 09/14/2021 10:23 PM [facility] LABORATORY SERVICES - [facility] Comment: eGFR calculated with 2020 CKD-EPI equation. ??Vegetarian diet, extremely high or low muscle mass, and may affect results. ??Cystatin C with Glomerular Filtration Rate is a suitable alternative for these patients. The National Kidney Foundation and the [place] Society of Nephrology (NKF-ASN) recommends using the 2020 CKD Epidemiology Collaboration (CKD-EPI) equation to calculate estimated glomerular filtration rate (eGFR). This equation is only applicable to [place] adult patients and removes race as a variable. ??Due to the variation of creatinine in different conditions, they recommend use of confirmatory tests such as eGFR from cystatin C or creatinine-cystatin GFR estimating equations, or direct measurement of clearance of an exogenous filtration marker in critical clinical decisions including but not limited to drug dosing, surgery, chemotherapy, and transplant referral. ANION GAP 14 8 - 16 mmol/L 09/14/2021 10:[address] [facility] Veronica [facility] Blood Venipuncture / Unknown 09/14/2021 9:25 PM PROVIDER ENROLLMENT SPECIALIST 09/14/2021 9:49 PM PROVIDER ENROLLMENT SPECIALIST [facility] - [facility] - 09/14/2021 10:23 PM PROVIDER ENROLLMENT SPECIALIST Samples containing indocyanine green cause interferences on Total and/or Direct Bilirubin and must not be measured. Fabricio Romero MD CHEMISTRY ORDERABLE S [facility] Veronica [facility] CLIA# [id number] [address] [facility] [place] [address] * (ABNORMAL) CBC WITH DIFFERENTIAL (09/14/2021 9:25 PM PROVIDER ENROLLMENT SPECIALIST) [facility] WBC 7.0 4.0 - 9.8 K/uL 09/14/2021 10:[address] [facility] Veronica [facility] RBC 5.64(H) 3.90 - 4.90 M/uL 09/14/2021 10:[address] [facility] Veronica [facility] HEMOGLOBIN 14.1 11.8 - 14.8 g/dL 09/14/2021 10:[address] [facility] Veronica [facility] HEMATOCRIT 45.0(H) 35.5 - 44.0 % 09/14/2021 10:[address] [facility] Veronica [facility] MCV 79.8(L) 82.0 - 99.0 fL 09/14/2021 10:[address] [facility] Veronica [facility] MCH 25.0(L) 27.2 - 32.6 pg 09/14/2021 10:[address] [facility] Veronica [facility] MCHC 31.3(L) 31.5 - 35.5 g/dL 09/14/2021 10:[address] [facility] Veronica [facility] RDW 20.8(H) 11.5 - 14.5 % 09/14/2021 10:[address] [facility] Veronica [facility] RDW-STDEV 58.9(H) 37.1 - 48.7 fL 09/14/2021 10:04 PM [facility] LABORATORY SERVICES - [facility] PLATELETS 382(H) 140 - 350 K/uL 09/14/2021 10:04 PM [facility] LABORATORY SERVICES - . [facility] MPV 9.0(L) 9.3 - 12.4 fL 09/14/2021 10:04 PM [facility] LABORATORY SERVICES - . [facility] NEUTROPHILS 58 % 09/14/2021 10:04 PM [facility] LABORATORY SERVICES - . [facility] LYMPHOCYTES 33 % 09/14/2021 10:04 PM [facility]ATORY SERVICES - [facility] MONOCYTES 7 % 09/14/2021 10:04 PM [facility]ATORY SERVICES - [facility] EOSINOPHILS 2 % 09/14/2021 10:04 PM [facility] LABORATORY SERVICES - . [facility] BASOPHILS 0 % 09/14/2021 10:04 PM [facility] LABORATORY [facility] - . [facility] IMMATURE GRANULOCYTES 0 % 09/14/2021 10:04 PM [facility] LABORATORY [facility] - . [facility] NEUTROPHIL ABSOLUTE 4.04 1.90 - 7.00 K/uL 09/14/2021 10:04 PM [facility] LABORATORY SERVICES - . [facility] LYMPHOCYTE ABSOLUTE 2.29 0.70 - 4.50 K/uL 09/14/2021 10:04 PM [facility] LABORATORY SERVICES - . [facility] MONOCYTE ABSOLUTE 0.47 0.10 - 1.30 K/uL 09/14/2021 10:04 PM [facility] LABORATORY SERVICES - . [facility] EOSINOPHIL ABSOLUTE 0.14 0.00 - 0.70 K/uL 09/14/2021 10:04 PM [facility] LABORATORY SERVICES - . [facility] BASOPHILS ABSOLUTE 0.02 0.00 - 0.20 K/uL 09/14/2021 10:04 PM [facility] LABORATORY SERVICES - . [facility] IMMATURE GRANULOCYTES ABSOLUTE 0.01 0.00 - 0.03 K/uL 09/14/2021 10:04 PM [facility] LABORATORY SERVICES - [facility] Blood Venipuncture / Unknown 09/14/2021 9:25 PM PROVIDER ENROLLMENT SPECIALIST 09/14/2021 9:49 PM PROVIDER ENROLLMENT SPECIALIST Fabricio Romero MD HEMATOLOGY ORDERABL ES [facility] Veronica SERVICES - STReymundo MATOS# [id number] [address] [address] documented in this encounter Visit Diagnoses Diagnosis Nonintractable headache, unspecified chronicity pattern, unspecified headache type- Primary documented in this encounter Administered Medications Inactive Administered Medications - up to 3 most recent administrations Medication Order MAR Action Action Date Dose Rate Site diphenhydrAMINE (BENADRYL) injection 25 mg 25 mg, IV, ONE TIME ONLY, 1 dose, On Sun09/14/21 at 2245, Routine Given 09/14/2021 11:02 PM PROVIDER ENROLLMENT SPECIALIST 25 mg morphine injection 6 mg 6 mg, IV, EVERY 2 HOURS PRN, Starting on Sun09/14/21 at 2134, Until Nancy 09/15/21 at 0142, Pain, Routine Given 09/14/2021 10:07 PM PROVIDER ENROLLMENT SPECIALIST 6 mg ondansetron (ZOFRAN) 4 mg/2 mL injection 4 mg 4 mg, IV, EVERY 6 HOURS PRN, Starting on Sun09/14/21 at 2134, Until Nancy 09/15/21 at 0142, Nausea/Emesis, Routine Given 09/14/2021 10:07 PM PROVIDER ENROLLMENT SPECIALIST 4 mg prochlorperazine (COMPAZINE) injection 10 mg 10 mg, IV, ONE TIME ONLY, 1 dose, On Sun09/14/21 at 2245, Routine Given 09/14/2021 11:02 PM PROVIDER ENROLLMENT SPECIALIST 10 mg sodium chloride 0.9% bolus solution 1,000 mL 1,000 mL, IV, ONE TIME ONLY, 1 dose, On Sun09/14/21 at 2145, at 2,000 mL/hr, Administer over 30 Minutes, Routine Heriberto Albert 09/14/2021 10:06 PM PROVIDER ENROLLMENT SPECIALIST 1,000 mL 2000 mL/hr documented in this encounter Active and Recently Administered Medications Times are shown in PROVIDER ENROLLMENT SPECIALIST. Scheduled Medication Order 09/12/2021 09/13/2021 09/14/2021 diphenhydrAMINE (BENADRYL) injection 25 mg (COMPLETED) 25 mg, IV, ONE TIME ONLY, 1 dose, On Sun09/14/21 at 2245, Routine 2302 (Given - Provid er: Stephani Hauser RN) prochlorperazine (COMPAZINE) injection 10 mg (COMPLETED) 10 mg, IV, ONE TIME ONLY, 1 dose, On Sun09/14/21 at 2245, Routine 2302 (Given - Provid er: Stephani Hauser RN) sodium chloride 0.9% bolus solution 1,000 mL (COMPLETED) 1,000 mL, IV, ONE TIME ONLY, 1 dose, On Sun09/14/21 at 2145, at 2,000 mL/hr, Administer over 30 Minutes, Routine 220 (New Bag - Prov ider: Stephani Hauser RN)223 (Stopped - Provider: Gisele Martinez RN) PRN Medication Order 09/12/2021 09/13/2021 09/14/2021 morphine injection 6 mg 6 mg, IV, EVERY 2 HOURS PRN, Starting on Sun09/14/21 at 2134, Until Nancy 09/15/21 at 0142, Pain, Routine 220 (Given - Provid er: Stephani Hauser RN) ondansetron (ZOFRAN) 4 mg/2 mL injection 4 mg 4 mg, IV, EVERY 6 HOURS PRN, Starting on Sun09/14/21 at 2134, Until Nancy 09/15/21 at 0142, Nausea/Emesis, Routine 2206 (Given - Provid er: Stephani Hauser RN) documented in this encounter Care Teams 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
--- OUTSIDE RECORDS SUMMARY | 2024-08-03 01:40 | XMS_ITS | Encounter Summary ---
Author Organization [facility] Address [address] [place] [address] Care Team Providers Care Chiropractic Practice Manager Name Role Phone ColindresRachid Primary Care Provider Reason for Visit * Reason Comments Abdominal Pain with epigastric pain , n/v/d for a few weeks. seen at [facility] last week and told had an ovarian cyst. pt 13wks , denies bleeding or pelvic pain. reglan without relief. * Auth/Cert Specialty Diagnoses / Procedures Referred By Reva holbrook Referred To Contact Obstetrics [facility] Antepartum [address] [place] [address] Referral ID Status Reason Start Date Expiration Date Visits Re quested Visits Authorized [id number] 01/08/2018 02/08/2019 1 Encounter Details Date Type Department Care Team (Late st Contact Info) Description 01/06/2018 3:56 PM CDT - 01/07/2018 1:07 PM CDT Emergency [facility] Antepartum [address] [place] [address] Ajay Mccullough MD [address] [place] [address] Della Adames MD [address] [place] [address] Nausea and vomiting during Discharge Disposition: Home or Self Care Social [...] Sign Reading Time Taken Comments Blood Pressure 132/71 01/06/2018 7:33 PM CDT Pulse 82 01/06/2018 7:00 PM CDT Temperature 36.6 ??C (97.8 ??F) 01/06/2018 7:50 PM CD T Respiratory Rate 18 01/07/2018 5:26 AM CDT Oxygen Saturation 98% 01/07/2018 2:53 AM CDT Inhaled Oxygen Concentration - - Weight 111.6 kg (246 lb) 01/06/2018 7:50 PM CDT Height 167.6 cm (5' 6 ) 01/06/2018 7:50 PM CDT Body Mass Index 39.71 01/06/2018 7:50 PM CDT documented in this encounter Discharge Instructions * Discharge Instructions* Brooklyn Rios, RN - 01/07/2018 3:05 PM CDT Prescriptions: Prescriptions given? YES Return to Labor and Delivery or notify your physician regarding: Vaginal Bleeding: A small amount of spotting [...] of face, hands, or feet. Additional Instructions: Activity: Your activity level is no restrictions and no smoking. If you smoke you are advised to quit. Ask your health care provider for advice if you need assistance to stop smoking. Avoid second-hand smoke exposure and do not let people smoke in your home. Diet: Advance diet as tolerated starting with bland foods and drink plenty of fluids * Attachments The following attachments cannot be sent through Care Everywhere. * Diarrhea (Urdu) * Nausea and Vomiting (Urdu) documented in this encounter Medications at Time of Discharge Medication Sig Dispensed Refills Start Date End Date promethazine (PHENERGAN) 25 mg Suppository Insert 1 [...] as of this encounter Progress Notes * Brooklyn Rios RN - 01/07/2018 3:36 PM CDT Pt sent home with prescriptions. All questions and concerns addressed at this time. * Brooklyn Rios RN - 01/07/2018 2:52 PM CDT Pt feeling better and was able to keep some bland food down with no issues. Pt is ready to go home.CMP results back. Will call Dr. Rangel about getting d/c orders and prescriptions for home. * Carmen Rangel MD - 01/07/2018 10:10 AM CDT Antepartum Safety Rounds Plan of care reviewed with MFM, in house attending, bedside RN and charge operator. Dopple daily Plan: supportive cares Carmen Rangel MD PGY-3 Dept. of ENVIRONMENTAL SERVICES COORDINATOR Pager: [phone] * Della Adames MD - 01/07/2018 8:24 AM CDT Antepartum Rounding Note S: Patient feeling a little better this morning. Occasional nausea, but overall improved. No emesisovernight. Given IVF and K replacement overnight. Denies bleeding/cramping. Desires d/c home if possible today. O: Vitals: 01/07/18 0122 01/07/18 0235 01/07/18 0253 01/07/18 0526 Temp: Pulse: Heart Rate: 81 bpm BP: Mean Arterial Pressure: Resp: 18 SpO2: 98% Gen: NAD CV: acyanotic Pulm: non-labored breathing Abd: gravid, soft, non-tender Ext: no calf tenderness Assessment Bedside US: CRL measuring 13w5d, +cardiac activity ?? Labs WBC 8.1 H/H: 14.1/41 K: 3.2 AST/ALT: 34/58 Lipase: 55 UA: 2+ ketones Active Hospital Problems Diagnosis ??? Diarrhea ??? Nausea and vomiting during Resolved Hospital Problems Diagnosis Date Resolved No resolved problems to display. A/P: 32 y.o. yo @ 13w1d presents with nausea and vomiting 1. Nausea and vomiting - VSS, afebrile - IVF: D5LR, s/p banana bag - Hypokalemia - s/p 40 mEq K - Associated epigastric pain - h/o cholecystectomy and normal lipase; will give protonix - Mild transaminitis - likely 2/2 vomiting and GI upset - Anti-emetics: - Unisom + B6 - Scheduled reglan + zofran - Phenergan W[place] + benadryl prn - NPO overnight, will advance to clears this AM - Possible gastroenteritis given concurrent diarrhea (see below) 2. status reassuring: - FHR by doppler qShift - BSUS: IUP measuring 13w5d, +cardiac activity 3. Diarrhea - Patient states has issues with chronic diarrhea, but worse this week - Has seen GI in past with negative work-up; was supposed to have liver tests before I got - Stool culture pending , C Diff negative 4. PCOS - Continue home metformin 5. Psychiatric care - H/o anxiety, depression, bipolar disorder - Cont home deplin, amitriptyline, buspar, trantellix > patient unsure of doses of buspar and trantellix, to clarify and shawn re-order 6. Antepartum Care - PNV, colace prn - SCDs while in bed Makenna Baldwin MD PGY-3 Pager: [phone] Ob Attending Improved this am. Tolerating clears and abdominal pain mild and intermittent instead of constant. Will advance diet to bland and repeat CMP. HOme this afternoon if tolerates diet and CMP reasonable. Home on protonix and antiemetics. * Shannon Morley RN - 01/07/2018 2:41 AM CDT Received order for potassium IVPB. Called pharmacy to confirm IV compatibility with banana bag thatis currently infusing. Pharmacy unsure of IV compatibility. Spoke to Dr. Baldwin. Orders received tobolus banana bag now and then hang potassium IVPB with NS as main IV fluid. * Shannon Morley RN - 01/07/2018 1:[address] Baldwin called. Order for stool culture received. Pt instructed to notify RN after bowel movement. * Shannon Morley RN - 01/06/2018 7:30 PM CDT Pt transported into [address]. P[address] Baldwin. documented in this encounter H&P Notes * Aicha Baldwin MD - 01/06/2018 7:51 PM CDT OB History & Physical CC: nausea, vomiting HPI: Vera Vitale is a 32 y.o. @ 13w0d who presents complaining of nausea and vomiting. Patient states that for the past 5-6 days, she has had significant epigastric pain and nausea/vomiting. States that she has 2-3 episdoes of emesis per day. When she is not having emesis, she has episodes of dry heaving. Patient states that she had mild nausea and vomiting earlier in but nothing this significant. Her last full meal was 6 days ago. Since that time, she has been having occasional macadamia nuts and chips ahoy cookies that she will let dissolve in her mouth. Endorses a 6lb weight loss this . In addition, she is also having worsening diarrhea over the past week. States that she has GI issues in the past and occasional diarrhea at baseline but this is different. She reports watery, yellow stool. She has had a GI work-up in the past that was negative. States that she was supposed to have some sort of testing for my liver, but I got . Denies sick contacts. She has had a cholecystectomy. She presented at [facility] for her nausea and vomiting earlier this week. States that they were more concerned about the baby and did not address her nause and vomiting. They did tell her that she had an ovarian cyst. Her primary OB is Keo Meza MD. ROS: As above. 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 Negative for genetic tendencies, frequent miscarriage or bleeding disorders SHx: denies tobacco, alcohol, or illicit drug use Medications: Buspar Amitriptyline Trantellix Prometrium (200mg daily) PNV fioricet prn Deplin Metformin 500mg BID Allergies Allergen Reactions ??? Adhesive Other (See Comments) Skin irritation Physical Exam: Vitals: 01/06/18 1700 01/06/18 1716 01/06/18 1900 01/06/18 1950 BP: (!) 146/78 132/71 132/75 BP Location: Left arm Left arm Left arm Patient Position (BP): Sitting Sitting Sitting Pulse: 73 74 82 Resp: 20 Temp: 97.8 ??F (36.6 ??C) TempSrc: Oral SpO2: 96% 98% 97% Weight: 111.6 kg (246 lb) Height: 5' 6 (1.676 m) General: Well-developed, well-nourished female in [place] HEENT: NCAT, moist mucus membranes Heart: RRR Lungs: CTAB Abdomen: Gravid, NT Extremities: No clubbing, cyanosis, or edema. No calf tenderness. Assessment Bedside US: CRL measuring 13w5d, +cardiac activity Labs WBC 8.1 H/H: 14.1/41 K: 3.2 AST/ALT: 34/58 Lipase: 55 UA: 2+ ketones Active Hospital Problems Diagnosis ??? Diarrhea ??? Nausea and vomiting during Resolved Hospital Problems Diagnosis Date Resolved No resolved problems to display. Assessment/Plan: 32 y.o. @ 13w0d with nausea and vomiting 1. Nausea and vomiting - VSS, afebrile - IVF: banana bag, then D5LR - Hypokalemia - will give 40 mEq K - Associated epigastric pain - h/o cholecystectomy and normal lipase; will give protonix - Mild transaminitis - likely 2/2 vomiting and GI upset - Anti-emetics: - Unisom + B6 - Scheduled reglan + zofran - Phenergan WV + benadryl prn - NPO overnight, can consider advancing to clears in AM 2. status reassuring: - FHR by doppler qShift - BSUS: IUP measuring 13w5d, +cardiac activity 3. Diarrhea - Patient states has issues with chronic diarrhea, but worse this week - Has seen GI in past with negative work-up; was supposed to have liver tests before I got - Stool culture, C Diff pending 4. PCOS - Continue home metformin 5. Psych issues - H/o anxiety, depression, bipolar disorder - Cont home deplin, amitriptyline, buspar, trantellix > patient unsure of doses, to clarify and shawn re-order 6. Antepartum Care - PNV, colace prn - SCDs while in bed 7. Discussed with Dr. Adames . Makenna Baldwin MD PGY-3 Pager: [phone] documented in this encounter ED Notes * Bridgett Mccann RN - 01/06/2018 7:11 PM CDT Pt reports epigastric pain at this time. Pt rates pain a 6 on a scale of 0-10. Pt remains on BP andpulse ox. VSS. RR even and unlabored. Call light in reach. * Bridgett Mccann RN - 01/06/2018 6:00 PM CDT Pt denies needs and concerns at this time. Pt denies pain. Pt remains on BP and pulse ox. VSS. RR even and unlabored. Call light in reach. * Bridgett Mccann RN - 01/06/2018 5:12 PM CDT Pt medicated per MAR. Patient/family has been informed about benefits and any potential clinically significant side effects or other concerns regarding the administration of the drug they have just been given. * Bridgett Mccann RN - 01/06/2018 5:00 PM CDT Pt to Ed with c/o epigastric pain, nausea, vomiting, and diarrhea x4 days. Pt rates pain a 7 on a scale of 0-10. Pt denies fever. Pt denies urinary symptoms. Pt placed on BP, and pulse ox. VSS. RR even and unlabored. Call light in reach. * Ajay Mccullough MD - 01/06/2018 3:42 PM CDTAssociated Order(s): POC US PELVIS OB FIRST TRIMESTER HISTORY OF PRESENT ILLNESS Vera Vitale, a 32 y.o. female presents to the ED with a Chief Complaint of Abdominal Pain Subjective 4:21 PM: Vera Vitale is a 32 y.o. [id number] female, 13 weeks by dates, with a history of depression, anxiety, preeclampsia, cholestasis, and cholecystectomy who presents to the Emergency Department with complaints of epigastric pain onset a few weeks ago. She describes the pain as a twisting, stabbing sensation. Patient was seen at [facility] for similar complaints on 01/03, at which time ultrasound revealed R ovarian cyst. She sees Dr. Kilo Meza for ENVIRONMENTAL SERVICES COORDINATOR. She has not experienced similar pain in the past. She also complains of low back pain, nausea, vomiting, yellow diarrhea, decreased PO intake, and mild dizziness. Denies fever, chills, and vaginal bleeding. Physician(s): Hilda Eden FNP History provided by: The patient Arrived by: Private vehicle Arrived from: Home REVIEW OF SYSTEMS Review of Systems Constitutional: Positive for appetite change (decreased PO intake). Negative for chills, fatigue and fever. HENT: Negative for ear pain, facial swelling, mouth sores and sore throat. Eyes: Negative for photophobia, redness and visual disturbance. Respiratory: Negative for cough, shortness of breath, wheezing and stridor. Cardiovascular: Negative for chest pain and palpitations. Gastrointestinal: Positive for abdominal pain (epigastric), diarrhea, nausea and vomiting. Genitourinary: Negative for dysuria, hematuria, urgency, vaginal bleeding and vaginal discharge. Musculoskeletal: Positive for back pain. Negative for arthralgias and myalgias. Skin: Negative for rash. Neurological: Positive for dizziness. Negative for weakness and numbness. Psychiatric/Behavioral: Negative for hallucinations and suicidal ideas. PAST MEDICAL HISTORY REVIEWED MEDICAL: Patient has a past medical history of Anxiety; Bipolar affective disorder; Depression; Herniated cervical disc; High cholesterol; Hyperemesis gravidarum; Migraines; MRSA (methicillin resistant Staphylococcus aureus) (08/2009); PCOS (polycystic ovarian syndrome); and Trichimoniasis (2005). SURGICAL: Patient has a past surgical history that includes hx ear surgery; hx cholecystectomy; pr delivery only (11/21/2010); hchg dilitation and curettage (01/14/2014); pr lap,rmv adnexal structure (N/A, 08/06/2015); hx lymph node dissection (10/2014); hx dilation and curettage (01/2014); pr de livery only (N/A, 09/13/2016); hx craniotomy (2016); lap cholecystectomy; and hx left oophorectomy. FAMILY: Patient's family history includes Diabetes in her brother and father; Hypertension in her mother; Thyroid Disease in her father. SOCIAL: reports that she has quit smoking. Her smoking use included Cigarettes. She has a 5.00 pack-year smoking history. She has never used smokeless tobacco. She reports that she currently engages in sexual activity and has had male partners. She reports using the following method of control/protection: None. She reports that she does not drink alcohol or use drugs. History ??? Feeding: Breast Fed Social History Other Topics Concern ??? Not on file PROBLEM LIST: Patient has C section 11/21; Normal (single liveborn); Tobacco use; 08/06 L ruptured ectopics/p dx lap, L fallopian; percocet, ADAT; Feeling pelvic pressure during in second trimester, antepartum; Viral gastritis; Nausea and vomiting during ; Diarrhea; related fatigue in third trimester; Shortness of breath during ; S/P section; Cholestasis during ; Bipolar affective disorder, currently depressed, moderate; CLOTILDE (generalized anxietydisorder); and N&V (nausea and vomiting) on her problem list. ALLERGIES Adhesive HOME MEDICATIONS Current Discharge Medication List CONTINUE these medications which have NOT CHANGED Details buspirone HCl (BUSPIRONE ORAL) Take by mouth. progesterone micronized (PROMETRIUM) 200 mg Capsule Take by mouth daily. vortioxetine hydrobromide (TRINTELLIX ORAL) Take by mouth. czhdmkktfusfi-yfzpoldv-liusymbgzp (FIORICET) 325-40-50 mg tablet Take 1 Tablet by mouth every 4 hours as needed for Migraine. amitriptyline (ELAVIL) 10 mg tablet Take 1 Tablet (10 mg) by mouth daily at bedtime. Qty: 30 Tablet, Refills: 2 vit-iron fumarate-fa (HECTOR ) 28 mg iron- 800 mcg Tablet Take 1 Tablet by mouth . HYDROmorphone (DILAUDID) 4 mg tablet Take 4 mg by mouth 2 times daily. metoclopramide HCl (REGLAN) 10 mg tablet Take 10 mg by mouth 2 times daily. albuterol HFA 90 mcg inhaler Take 1 Puff by inhalation 2 times daily. METFORMIN HCL (METFORMIN ORAL) Take 500 mg by mouth 2 times daily . escitalopram oxalate (LEXAPRO) 20 mg tablet Take 1 Tablet (20 mg) by mouth late in the day. Qty: 30 Tablet, Refills: 2 L-methylfolate (L-METHYLFOLATE) 15 mg Tablet Take 15 mg by mouth . oxyCODONE (ROXICODONE) 5 mg tablet Take 1 Tablet (5 mg) by mouth every 4 hours as needed. Max DailyAmount: 30 mg Qty: 40 Tablet, Refills: 0 ibuprofen (MOTRIN) 600 mg tablet Take 1 Tablet (600 mg) by mouth every 6 hours. Qty: 240 Tablet, Refills: 1 Objective PHYSICAL EXAM INITIAL VS BP: (!) 136/90 (01/06/18 1546), Heart Rate: 85 bpm (01/06/181545), Resp: 22 (01/06/181545), Temp:97.5 ??F (36.4 ??C) (01/06/181545), Temp src: Oral (01/06/181545), SpO2: 100 % (01/06/181545), Height: 5' 6 (167.6 cm) (01/06/181545), Weight: 111.6 kg (246 lb) (01/06/181545), BMI (Calculated): 39.72 (01/06/181545) Patient's last menstrual period was 10/07/2017. Physical Exam Constitutional: She is oriented to person, place, and time. Obese female HENT: Head: Normocephalic and atraumatic. Mouth/Throat: Oropharynx is clear and moist. Eyes: Conjunctivae are normal. Pupils are equal, round, and reactive to light. Neck: Normal range of motion. Neck supple. Cardiovascular: Normal rate, regular rhythm and intact distal pulses. No murmur heard. Pulmonary/Chest: Effort normal. No stridor. She has no wheezes. Abdominal: Soft. Bowel sounds are normal. She exhibits no mass. There is tenderness (epigastric). There is no rebound and no guarding. Musculoskeletal: Normal range of motion. She exhibits no edema or deformity. Lymphadenopathy: She has no cervical adenopathy. Neurological: She is alert and oriented to person, place, and time. She has normal strength. No cranial nerve deficit or sensory deficit. Skin: Skin is warm and dry. No rash noted. Psychiatric: She has a normal mood and affect. Judgment and thought content normal. Nursing note and vitals reviewed. DIAGNOSTICS LAB: CBC WITH DIFFERENTIAL - Abnormal Result Value WBC 8.1 RBC 4.99 (*) HEMOGLOBIN 14.1 HEMATOCRIT 41.0 MCV 82.2 MCH 28.3 MCHC 34.4 RDW 13.9 RDW-STDEV 41.0 PLATELETS 261 MPV 8.5 (*) NEUTROPHILS 67 LYMPHOCYTES 27 MONOCYTES 5 EOSINOPHILS 1 BASOPHILS 0 IMMATURE GRANULOCYTES 0 NEUTROPHIL ABSOLUTE 5.42 LYMPHOCYTE ABSOLUTE 2.17 MONOCYTE ABSOLUTE 0.41 EOSINOPHIL ABSOLUTE 0.05 BASOPHILS ABSOLUTE 0.01 IMMATURE GRANULOCYTES ABSOLUTE 0.03 COMPREHENSIVE METABOLIC PANEL - Abnormal SODIUM 135 (*) POTASSIUM 3.2 (*) CHLORIDE 98 CO2 21 (*) CALCIUM 10.7 (*) BUN 6 CREATININE 0.52 GLUCOSE 83 TOTAL PROTEIN 7.8 ALBUMIN 4.6 BILIRUBIN TOTAL 0.2 (*) ALKALINE PHOSPHATASE 124 (*) AST 34 (*) ALT 58 (*) GFR >60 GFR, >60 ANION GAP 16 LIPASE - Normal LIPASE 55 RADIOLOGY: POC US PELVIS OB FIRST TRIMESTER (Results Pending) POC US PELVIS OB FIRST TRIMESTER (Results Pending) EKG: As interpreted by me: sinus rhythm, normal rate 67. No arrhythmia, normal axis, normal intervals, no ST-T wave or Q waves suggestive of ischemia. PROCEDURES POC US PELVIS OB FIRST TRIMESTER Date/Time: 01/06/2018 5:00 PM Performed by: AJAY MCCULLOUGH Authorized by: AJAY MCCULLOUGH Exam Type: Diagnostic Initial or Repeat Exam: Initial Exam Indication(s) for Exam: by patient history Comments: FHT 150 BPM, good movement, IUP MEDICAL DECISION MAKING AND PLAN OF CARE 5:11 PM: Lactate is normal. 6:09 PM: Patient has persistent nausea. Will contact patient's ENVIRONMENTAL SERVICES COORDINATOR regarding possible admission. 6:12 PM: D/w Dr. Adames, on-call for Dr. Meza, ENVIRONMENTAL SERVICES COORDINATOR. Will admit. Requests call to OB resident. 6:19 PM: D/w OB resident. Aware of patient's case. 6:34 PM: Updated patient on results, diagnosis, and plan for admission. Patient agrees with the plan. The opportunity for questions was given and questions were answered to the patient's satisfaction. All questions and concerns have been addressed. ED provider and ED nurse verbally discussed patient plan of care at this time. MDM Summary Statement: 32 year old female at about 13 weeks presents with epigastric pain and intractable nausea, vomiting, and diarrhea. DDx: hyperemesis gravidarum, pancreatitis, infectious diarrhea. Patient is clinically dehydrated, received 2 liters of IV fluids. Labs are unremarkable. Given multiple rounds of antiemetics. Spoke with OB on-call and patient will be admitted to antepartum for further hydration and antiemetics. Do not suspect acute abdomen or appendicitis. I have reviewed previous: notes and labs I have reviewed current: labs and ECG I have reviewed nursing notes related to past medical history, social history, and review of systems and agree, unless otherwise noted. Consults: ENVIRONMENTAL SERVICES COORDINATOR Medications Administered During the ED Stay from 01/06/2018 1542 to 01/06/2018 1921 Date/Time Order Dose Route Action 01/06/2018 1720 sodium chloride 0.9% bolus solution 2,000 mL 0 mL IV Stopped 01/06/2018 1650 sodium chloride 0.9% bolus solution 2,000 mL 2,000 mL IV New Bag 01/06/2018 1712 famotidine PF (PEPCID) 20 mg/2 mL injection 20 mg 20 mg IV Given 01/06/2018 1630 ondansetron (ZOFRAN) 4 mg/2 mL injection 4 mg IV Canceled Entry 01/06/2018 1709 metoclopramide HCl (REGLAN) injection 10 mg 10 mg IV Given 01/06/2018 1853 ondansetron (ZOFRAN ODT) tablet 4 mg 4 mg Oral Given 01/06/2018 185 prochlorperazine (COMPAZINE) injection 10 mg 10 mg IV Given 01/06/2018 192 sodium chloride 0.9% bolus solution 1,000 mL 0 mL IV Stopped 01/06/2018 185 sodium chloride 0.9% bolus solution 1,000 mL 1,000 mL IV New Bag Current Discharge Medication List CONTINUE these medications which have NOT CHANGED Details buspirone HCl (BUSPIRONE ORAL) Take by mouth. progesterone micronized (PROMETRIUM) 200 mg Capsule Take by mouth daily. vortioxetine hydrobromide (TRINTELLIX ORAL) Take by mouth. otirwveotwfvx-opdxaibd-ethrrmpdbq (FIORICET) 325-40-50 mg tablet Take 1 Tablet by mouth every 4 hours as needed for Migraine. amitriptyline (ELAVIL) 10 mg tablet Take 1 Tablet (10 mg) by mouth daily at bedtime. Qty: 30 Tablet, Refills: 2 vit-iron fumarate-fa (HECTOR ) 28 mg iron- 800 mcg Tablet Take 1 Tablet by mouth . HYDROmorphone (DILAUDID) 4 mg tablet Take 4 mg by mouth 2 times daily. metoclopramide HCl (REGLAN) 10 mg tablet Take 10 mg by mouth 2 times daily. albuterol HFA 90 mcg inhaler Take 1 Puff by inhalation 2 times daily. METFORMIN HCL (METFORMIN ORAL) Take 500 mg by mouth 2 times daily . escitalopram oxalate (LEXAPRO) 20 mg tablet Take 1 Tablet (20 mg) by mouth late in the day. Qty: 30 Tablet, Refills: 2 L-methylfolate (L-METHYLFOLATE) 15 mg Tablet Take 15 mg by mouth . oxyCODONE (ROXICODONE) 5 mg tablet Take 1 Tablet (5 mg) by mouth every 4 hours as needed. Max DailyAmount: 30 mg Qty: 40 Tablet, Refills: 0 ibuprofen (MOTRIN) 600 mg tablet Take 1 Tablet (600 mg) by mouth every 6 hours. Qty: 240 Tablet, Refills: 1 LAST VS BP: 132/71 (01/06/181932), Heart Rate: 74 bpm (01/06/181932), Resp: 20 (01/06/181949), Temp: 97.8 ??F (36.6 ??C) (01/06/181949), Temp src: Oral (01/06/181949), SpO2: 97 % (01/06/181899) CLINICAL IMPRESSION Final diagnoses: [R10.13] Epigastric abdominal pain (Primary) [R11.2] Intractable vomiting with nausea, unspecified vomiting type DISPOSITION, EDUCATION AND MEDICATION RECONCILIATION Medications reconciled. See after visit summary for patient education on discharged patients. Disposition: Patient admitted to the antepartum floor in stable condition. ED Disposition ED Disposition Condition User Date/Time Comment Admit Stable Ajay Mccullough MD Sun January 06, 2018 6:19 PM ATTESTATION STATEMENTS This note has been prepared by Jason Acosta acting as a scribe for Dr. Ajay Mccullough on 01/06/2018 at 6:35 PM. The scribe's documentation has been prepared under my direction and personally reviewed by me, Dr. Ajay Mccullough, in its entirety on 01/06/18 at 9:24 PM. I confirm that the note above accurately reflects all work, treatment, procedures, and medical decision making performed by me. documented in this encounter Plan of Treatment Upcoming Encounters Date Type Department Care Team (Late st Contact Info) Description 10/14/2024 11:00 AM GAUGE INSPECTOR Office Visit [facility] Oncology and Hematology - [place] [address] [place] [address] Ubaldo Cardenas MD [address] [facility] [address] [place] [address] documented as of this encounter Procedures Procedure Name Priority Date/Time Associated Diagnosis Comments COMPREHENSIVE METABOLIC PANEL Routine 01/07/2018 1:19 PM CDT C. DIFFICILE DETECTION Routine 8 3:21 AM CDT STOOL CULTURE W/SHIGA TOXIN Routine 01/07/2018 3:21 AM CDT URINALYSIS W/REFLEX MICROSCOPIC Stat 01/06/2018 8:28 PM CDT EKG 12-LEAD Stat 01/06/2018 5:01 PM CDT CBC WITH DIFFERENTIAL Stat 01/06/2018 4:49 PM CDT LIPASE Stat 01/06/2018 4:49 PM CDT COMPREHENSIVE METABOLIC PANEL Stat 01/06/2018 4:49 PM CDT POC US PELVIS OB FIRST TRIMESTER Stat 01/06/2018 3:42 PM CDT documented in this encounter Results * (ABNORMAL) COMPREHENSIVE METABOLIC PANEL (01/07/2018 1:19 PM CDT) SODIUM 138 136 - 145 mmol/L 01/07/2018 1:55 PM CDT [facility] POTASSIUM 3.6 3.5 - 5.0 mmol/L 01/07/2018 1:55 PM CDT [facility] CHLORIDE 103 98 - 107 mmol/L 01/07/2018 1:55 PM CDT [facility] CO2 22 22 - 29 mmol/L 01/07/2018 1:55 PM CDT [facility] CALCIUM 9.1 8.6 - 10.2 mg/dL 01/07/2018 1:55 PM [facility] [employer] LABORATORY SERVICES - . [facility] BUN 3(L) 6 - 20 mg/dL 01/07/2018 1:55 PM [facility] [employer] LABORATORY SERVICES - . [facility] CREATININE 0.50(L) 0.51 - 0.95 mg/dL 01/07/2018 1:55 PM [facility] [employer] [facility]ATORY SERVICES - [facility] GLUCOSE 101(H) 74 - 99 mg/dL 01/07/2018 1:55 PM [facility] [employer] [facility]ORY SERVICES - [facility] TOTAL PROTEIN 6.9 6.7 - 8.6 g/dL 01/07/2018 1:55 PM [employer] [facility]ATORY SERVICES - . [facility] ALBUMIN 4.1 3.5 - 5.2 g/dL 01/07/2018 1:55 PM [facility] [employer] LABORATORY SERVICES - . [facility] BILIRUBIN TOTAL 0.2(L) 0.3 - 1.2 mg/dL 01/07/2018 1:55 PM [employer] LABORATORY SERVICES - . [facility] ALKALINE PHOSPHATASE 109(H) 35 - 104 U/L 01/07/2018 1:55 PM [employer] [facility] - [facility] AST 36(H) <33 U/L 01/07/2018 1:55 PM [employer] [facility] - [facility] ALT 55(H) <34 U/L 01/07/2018 1:55 PM [employer] [facility] - . [facility] GFR >60 >=60 mL/min/1.7 3 sq meter 01/07/2018 1:55 PM [employer] [facility]ORATORY SERVICES - [facility] Comment: eGFR has not been validated for [...] GFR, >60 >=60 mL/min/1.7 3 sq meter 01/07/2018 1:55 PM [employer] LABORATORY SERVICES - [facility] ANION GAP 13 8 - 16 mmol/L 01/07/2018 1:55 PM CDT [facility] Blood Venipuncture / Unknown 01/07/2018 1:19 PM CDT 01/07/2018 1:26 PM CDT [facility] LABORATORY [facility] - 01/07/2018 1:55 PM CDT Samples containing indocyanine green cause interferences on Total and/or Direct Bilirubin and must not be measured. Della Adames MD CHEMISTRY ORDERABLES Performing Organization Address [facility]/ZIP Co de Phone Number [facility] CLIA# [id number] [address] [place] [address] * CLOSTRIDIUM DIFFICILE DETECTION (01/07/2018 3:21 AM CDT) Pathologist [facility] TOXIGENIC C DIFFICILE Not Detected Not Detected 01/07/2018 4:39 AM CDT [facility] Stool STOOL SPECIMEN / Unknown Collection / Unknown 01/07/2018 3:21 AM CDT 01/07/2018 3:28 AM CDT [facility] [employer] [facility] - 01/07/2018 4:39 AM CDT This assay is used to detect Toxigenic Clostridium difficile target(B gene) DNA sequences in unformed stool specimens. ??If toxigenic C. difficile is not detected, but clinical suspicion is high please consult ID for consultation and potential repeat testing. ??This test should not be used as a test of cure. Della Adames MD MICROBIOLOGY - [facility] AL ORDERABLES Performing Organization Address City/[facility]/ZIP Co de Phone Number [facility] CLIA# [id number] [address] [place] [address] * STOOL CULTURE W/SHIGA TOXIN (01/07/2018 3:21 AM CDT) Pathologist [facility] CULTURE NORMAL ARTURO 01/10/2018 11:13 AM CDT [facility] [employer] [facility] CULTURE NEGATIVE 01/10/2018 11:13 AM CDT [facility] LABORATORY SERVICES - . [facility] SHIGA TOXIN 1 Negative 01/10/2018 11:13 AM T [facility] LABORATORY SERVICES - . [facility] SHIGA TOXIN 2 Negative 01/10/2018 11:13 AM T [facility] LABORATORY [facility] Stool STOOL SPECIMEN / Unknown Collection / Unknown 01/07/2018 3:21 AM CDT 01/07/2018 3:29 AM CDT [facility] - 01/10/2018 11:13 AM CDT Stools are screened for Salmonella,Shigella,Campylobacter,Shiga toxin producing E.coli, including E.coli O157, Aeromonas,Plesiomonas, Vibrio, and Yersinia. Della Adames MD MICROBIOLOGY - [facility] AL ORDERABLES [facility]# [id number] [address] [place] [address] * (ABNORMAL) URINALYSIS WITH REFLEX MICROSCOPIC (01/06/2018 8:28 PM CDT) COLOR UA Pale Yellow Pale to Dark Yellow 01/06/2018 8:42 PM [facility] LABORATORY SERVICES - . [facility] CLARITY UA Clear Clear 01/06/2018 8:42 PM [facility] LABORATORY [facility] - . [facility] SPECIFIC GRAVITY UA 1.009 1.003 - 1.035 01/06/2018 8:42 PM [facility] LABORATORY [facility] - . [facility] PH UA 5.0 5.0 - 8.0 01/06/2018 8:42 PM [facility] LABORATORY [facility] - . [facility] LEUKOCYTE ESTERASE UA Negative Negative 01/06/2018 8:42 PM [facility]ATORY SERVICES - [facility] NITRITE UA Negative Negative 01/06/2018 8:42 PM [facility] - [facility] PROTEIN UA Negative Negative 01/06/2018 8:42 PM [facility] LABORATORY [facility] - . [facility] GLUCOSE UA Negative Negative 01/06/2018 8:42 PM [facility] LABORATORY SERVICES - . [facility] KETONES UA 2+(A) Negative 01/06/2018 8:42 PM [facility] LABORATORY [facility] - . [facility] UROBILINOGEN UA Normal <2.0 mg/dL 8 8:42 PM CDT [facility] BILIRUBIN UA Negative Negative 01/06/2018 8:42 PM CDT [facility] BLOOD UA Negative Negative 01/06/2018 8:42 PM CDT [facility] Urine URINE SPECIMEN OBTAINED BY CLEAN CATCH PROCEDURE / Unknown Collection / Unknown 01/06/2018 8:28 PM CDT 01/06/2018 8:34 PM CDT Ajay Mccullough MD URINE ORDERABLES Performing Organization Address [facility]/State/ZIP Co de Phone Number [facility] CLIA# [id number] [address] [place] [address] * EKG 12-LEAD (01/06/2018 5:01 PM CDT) 01/06/2018 5:01 PM CDT Narrative INTERFACE SYSTEM - 01/07/2018 10:51 PM CDT ? Stationary ECG Study ? [facility] ? Test Date: ?01/06/2018 5:01 PM Pat Name: ? VERA ELENA ?Department: ?? 36 ?Room: ? 7150 Gender: ? F ?Body Specialist: ?? : ?1985 ? Requested By: AJAY Jacobson Order Number: [id number] ?Reading : ?? Isaias Davis ? Measurements Intervals ?[place] ? Rate: ? 67 ? P: ?45 WV: ? 144 ?QRS: ?34 QRSD: ? 87 ? T: ?18 QT: ? 380 ? QTc: ?401 ? Interpretive Statements ? Sinus rhythm Electronically Signed On 01-07-2018 22:51:48 CDT by Isaias Davis Procedure Note Isaias Davis MD - 10/19/2021 Stationary ECG Study [facility] Test Date: 01/06/2018 5:01 PM Pat Name: VERA VITALE Department: 36 Room: [facility] Gender: F Body Specialist: : 1985 Requested By: AJAY Jacobson Order Number: [id number] Reading MD: Isaias Davis Measurements Intervals [place] Rate: 67 P: 45 WV: 144 QRS: 34 QRSD: 87 T: 18 QT: 380 QTc: 401 Interpretive Statements Sinus rhythm Electronically Signed On 01-07-2018 22:51:48 CDT by Isaias Davis Ajay Mccullough MD ECG ORDERABLES Performing Organization Address City/[facility] Co de Phone Number INTERFACE SYSTEM Refer to clinic/hospital department * LIPASE (01/06/2018 4:49 PM CDT) LIPASE 55 13 - 60 U/L 01/06/2018 5:47 PM CDT [facility] LABORATORY SERVICES [facility] Blood Venipuncture / Unknown 01/06/2018 4:49 PM CDT 01/06/2018 5:09 PM CDT Ajay Mccullough MD CHEMISTRY ORDERABLES Performing Organization Address [facility] Co de Phone Number [facility] LABORATORY SERVICES [facility] CLIA# [id number] [address] [place] [address] * (ABNORMAL) COMPREHENSIVE METABOLIC PANEL (01/06/2018 4:49 PM CDT) SODIUM 135(L) 136 - 145 mmol/L 01/06/2018 5:47 PM CDT [facility] LABORATORY SERVICES [facility] POTASSIUM 3.2(L) 3.5 - 5.0 mmol/L 01/06/2018 5:47 PM CDT [facility] LABORATORY SERVICES [facility] CHLORIDE 98 98 - 107 mmol/L 01/06/2018 5:47 PM CDT [facility] LABORATORY SERVICES [facility] CO2 21(L) 22 - 29 mmol/L 01/06/2018 5:47 PM CDT [facility] LABORATORY SERVICES [facility] CALCIUM 10.7(H) 8.6 - 10.2 mg/dL 01/06/2018 5:47 PM CDT [facility] LABORATORY SERVICES [facility] BUN 6 6 - 20 mg/dL 01/06/2018 5:47 PM CDT [facility] LABORATORY SERVICES [facility] CREATININE 0.52 0.51 - 0.95 mg/dL 01/06/2018 5:47 PM [facility] [employer] LABORATORY SERVICES - [facility] GLUCOSE 83 74 - 99 mg/dL 01/06/2018 5:47 PM [facility] LABORATORY SERVICES - . [facility] TOTAL PROTEIN 7.8 6.7 - 8.6 g/dL 01/06/2018 5:47 PM [facility] LABORATORY SERVICES - . [facility] ALBUMIN 4.6 3.5 - 5.2 g/dL 01/06/2018 5:47 PM [facility] LABORATORY SERVICES - . [facility] BILIRUBIN TOTAL 0.2(L) 0.3 - 1.2 mg/dL 01/06/2018 5:47 PM [facility] LABORATORY SERVICES - . [facility] ALKALINE PHOSPHATASE 124(H) 35 - 104 U/L 01/06/2018 5:47 PM [facility] LABORATORY SERVICES - . [facility] AST 34(H) <33 U/L 01/06/2018 5:47 PM [facility] LABORATORY SERVICES - . [facility] ALT 58(H) <34 U/L 01/06/2018 5:47 PM [facility] LABORATORY SERVICES - [facility] GFR >60 >=60 mL/min/1.7 3 sq meter 01/06/2018 5:47 PM [facility] LABORATORY SERVICES - [facility] Comment: eGFR has not been validated for [...] GFR, >60 >=60 mL/min/1.7 3 sq meter 01/06/2018 5:47 PM [facility] [employer] LABORATORY SERVICES - [facility] ANION GAP 16 8 - 16 mmol/L 01/06/2018 5:47 PM [facility] LABORATORY SERVICES - [facility] Blood Venipuncture / Unknown 01/06/2018 4:49 PM CDT 01/06/2018 5:09 PM CDT [facility] LABORATORY SERVICES - [facility] - 01/06/2018 5:47 PM CDT Samples containing indocyanine green cause interferences on Total and/or Direct Bilirubin and must not be measured. Ajay Mccullough MD CHEMISTRY ORDERABLES [facility] LABORATORY SERVICES - [facility] CLIA# [id number] [address] [place] [address] * (ABNORMAL) CBC WITH DIFFERENTIAL (01/06/2018 4:49 PM CDT) WBC 8.1 4.0 - 9.8 K/uL 01/06/2018 5:22 PM CDT [facility] LABORATORY SERVICES - [facility] RBC 4.99(H) 3.90 - 4.90 M/uL 01/06/2018 5:22 PM [facility] LABORATORY SERVICES - [facility] HEMOGLOBIN 14.1 11.8 - 14.8 g/dL 01/06/2018 5:22 PM T [facility] LABORATORY SERVICES - [facility] HEMATOCRIT 41.0 35.5 - 44.0 % 01/06/2018 5:22 PM CDT [facility] LABORATORY SERVICES - [facility] MCV 82.2 82.0 - 99.0 fL 01/06/2018 5:22 PM T [facility] LABORATORY SERVICES - [facility] MCH 28.3 27.2 - 32.6 pg 01/06/2018 5:22 PM [facility] LABORATORY [facility] MCHC 34.4 31.5 - 35.5 g/dL 01/06/2018 5:22 PM CDT [facility] LABORATORY SERVICES - [facility] RDW 13.9 11.5 - 14.5 % 01/06/2018 5:22 PM CDT [facility] LABORATORY SERVICES - [facility] RDW-STDEV 41.0 37.1 - 48.7 fL 01/06/2018 5:22 PM CDT [facility] LABORATORY SERVICES - [facility] PLATELETS 261 140 - 350 K/uL 01/06/2018 5:22 PM T [facility] LABORATORY SERVICES - [facility] MPV 8.5(L) 9.3 - 12.4 fL 01/06/2018 5:22 PM CDT [facility] LABORATORY SERVICES - [facility] NEUTROPHILS 67 % 01/06/2018 5:22 PM CDT [facility] LYMPHOCYTES 27 % 01/06/2018 5:22 PM CDT [facility] MONOCYTES 5 % 01/06/2018 5:22 PM CDT [facility] EOSINOPHILS 1 % 01/06/2018 5:22 PM CDT [facility] BASOPHILS 0 % 01/06/2018 5:22 PM CDT [facility]ATORY SERVICES - [facility] IMMATURE GRANULOCYTES 0 % 01/06/2018 5:22 PM CDT [facility]ATORY [facility] - [facility] NEUTROPHIL ABSOLUTE 5.42 1.90 - 7.00 K/uL 01/06/2018 5:22 PM CDT [facility]ATORY [facility] LYMPHOCYTE ABSOLUTE 2.17 0.70 - 4.50 K/uL 01/06/2018 5:22 PM CDT [facility] LABORATORY SERVICES - [facility] MONOCYTE ABSOLUTE 0.41 0.10 - 1.30 K/uL 01/06/2018 5:22 PM CDT [facility]ATORY [facility] EOSINOPHIL ABSOLUTE 0.05 0.00 - 0.70 K/uL 01/06/2018 5:22 PM CDT [facility] BASOPHILS ABSOLUTE 0.01 0.00 - 0.20 K/uL 01/06/2018 5:22 PM CDT [facility] LABORATORY SERVICES - . [facility] IMMATURE GRANULOCYTES ABSOLUTE 0.03 0.00 - 0.03 K/uL 01/06/2018 5:22 PM CDT [facility] Blood Venipuncture / Unknown 01/06/2018 4:49 PM CDT 01/06/2018 5:09 PM CDT Ajay Mccullough MD HEMATOLOGY ORDERABLE S [facility] LABORATORY SERVICES - [facility]# [id number] [address] [place] [address] [place] [address] * POC US PELVIS OB FIRST TRIMESTER (01/06/2018 3:42 PM CDT) Narrative ED POC US - 01/06/2018 3:42 PM CDT Ajay Mccullough MD ? 01/06/2018 ??9:25 PM POC US PELVIS OB FIRST TRIMESTER Date/Time: 01/06/2018 5:00 PM Performed by: AJAY MCCULLOUGH Authorized by: AJAY MCCULLOUGH Exam Type: ??Diagnostic Initial or Repeat Exam: ??Initial Exam Indication(s) for Exam: ?? by patient history Comments: ?? FHT 150 BPM, good movement, IUP Ajay Mccullough MD NON LAB POC TESTS ED POC US [address] [place] [address], documented in this encounter Visit Diagnoses Diagnosis Nausea and vomiting during - Primary Epigastric abdominal pain Abdominal pain, epigastric Intractable vomiting with nausea, unspecified vomiting type Diarrhea documented in this encounter Administered Medications Inactive Administered Medications - up to 3 most recent administrations Medication Order MAR Action Action Date Dose Rate Site acetaminophen (TYLENOL) tablet 1,000 mg 1,000 mg, Oral, EVERY 8 HOURS PRN, Starting on Sun01/07/18 at 1245, Until Sun01/07/18 at 1813, Pain, Routine Given 01/07/2018 1:07 PM CDT 1,000 mg amitriptyline (ELAVIL) tablet 10 mg 10 mg, Oral, DAILY AT BEDTIME, First dose on Sun01/07/18 at 0045, Until Discontinued, Routine Given 01/07/2018 2:24 AM CDT 10 mg dextrose 5 % in water 250 mL flush bag 25 mL 25 mL, IV, SEE ADMIN INSTRUCTIONS, Starting on Sun01/07/18 at 1120, Until Sun01/07/18 at 1813, Routine dextrose 5% - lactated ringers infusion IV, at 125 mL/hr, CONTINUOUS, Starting on Sun01/06/18 at 2015, Until Sun01/07/18 at 1115, Stat Rate Change 01/07/2018 7:17 AM CDT 125 mL/hr New Bag 01/06/2018 8:24 PM CDT 125 mL/hr diphenhydrAMINE (BENADRYL) injection 12.5 mg 12.5 mg, IV, EVERY 6 HOURS PRN, Starting on Sun01/07/18 at 0033, Until Sun01/07/18 at 1813, Nausea/Emesis, Routine docusate sodium (COLACE) capsule 100 mg 100 mg, Oral, TWO TIMES DAILY PRN, Starting on Sun01/07/18 at 0034, Until Sun01/07/18 at 1813, Constipation, Routine doxylamine (UNISOM) tablet 25 mg 25 mg, Oral, DAILY AT BEDTIME, First dose on Sun01/06/18 at 2100, Until Discontinued, Routine Given 01/06/2018 10:33 PM CDT 25 mg famotidine PF (PEPCID) 20 mg/2 mL injection 20 mg 20 mg, IV, ONE TIME ONLY, 1 dose, On Sun01/06/18 at 1630, Routine Given 01/06/2018 5:12 PM CDT 20 mg L-methylfolate (DEPLIN) tablet 15 mg 15 mg, Oral, DAILY, First dose on Sun01/07/18 at 0900, Until Discontinued, Routine Given 01/07/2018 9:45 AM CDT 15 mg metFORMIN (GLUCOPHAGE) tablet 500 mg 500 mg, Oral, TWO TIMES DAILY, First dose on Sun01/07/18 at 0045, Until Discontinued Given 01/07/2018 9:44 AM CDT 500 mg Given 01/07/2018 2:26 AM CDT 500 mg metoclopramide HCl (REGLAN) injection 10 mg 10 mg, IV, ONE TIME ONLY, 1 dose, On Sun01/06/18 at 1645, Routine Given 01/06/2018 5:09 PM CDT 10 mg metoclopramide HCl (REGLAN) injection 10 mg 10 mg, IV, EVERY 6 HOURS, First dose on Sun01/06/18 at 2100, Until Discontinued, Routine Given 01/07/2018 3:08 PM CDT 10 mg Given 01/07/2018 9:47 AM CDT 10 mg Given 01/07/2018 5:26 AM CDT 10 mg ondansetron (ZOFRAN ODT) tablet 4 mg 4 mg, Oral, ONE TIME ONLY, 1 dose, On Sun01/06/18 at 1815, Routine Given 01/06/2018 6:53 PM CDT 4 mg ondansetron (ZOFRAN ODT) tablet 4 mg 4 mg, Sublingual, EVERY 6 HOURS, First dose (after last modification) on Sun01/07/18 at 0045, Until Discontinued, Routine Given 01/07/2018 3:08 PM CDT 4 mg Given 01/07/2018 9:43 AM CDT 4 mg Given 01/07/2018 2:27 AM CDT 4 mg pantoprazole (PROTONIX) tablet 40 mg 40 mg, Oral, DAILY, First dose on Sun01/07/18 at 0900, Until Discontinued, Routine Given 01/07/2018 9:43 AM CDT 40 mg potassium CHLORIDE 20 mEq/100 mL IVPB 20 mEq 20 mEq, IV, EVERY 2 HOURS, 2 doses, First dose on Sun01/07/18 at 0100, Last dose on Sun01/07/18 at 0300, Routine Rate Verify 01/07/2018 5:33 AM CDT 20 mEq 25 mL/ hr Rate Change 01/07/2018 3:30 AM CDT 20 mEq 25 mL/hr New Bag 01/07/2018 3:05 AM CDT 20 mEq 50 mL/hr vit-iron fumarate-fa (HECTOR ) 28 mg iron- 800 mcg per tablet 1 Tablet 1 Tablet, Oral, DAILY, First dose on Sun01/07/18 at 0900, Until Discontinued, Routine Given 01/07/2018 9:43 AM CDT 1 Tablet prochlorperazine (COMPAZINE) injection 10 mg 10 mg, IV, ONE TIME ONLY, 1 dose, On 01/06/18 at 1815, Routine Given 01/06/2018 6:59 PM CDT 10 mg progesterone micronized (PROMETRIUM) capsule 200 mg 200 mg, Oral, DAILY AT BEDTIME, First dose on Sun01/07/18 at 0045, Until Discontinued, Routine Given 01/07/2018 2:25 AM CDT 200 mg promethazine (PHENERGAN) rectal suppository 25 mg 25 mg, Rectal, EVERY 6 HOURS PRN, Starting on Sun01/06/18 at 2011, Until Sun01/07/18 at 1813, Nausea/Emesis, Routine pyridoxine (vitamin B6) (VITAMIN B6) tablet 25 mg 25 mg, Oral, EVERY 12 HOURS (BlD), First dose on Sun01/06/18 at 2100, Until Discontinued, Routine Given 01/07/2018 9:43 AM CDT 25 mg Given 01/06/2018 10:34 PM CDT 25 mg sodium chloride 0.9 % 250 mL flush bag 25 mL 25 mL, IV, SEE ADMIN INSTRUCTIONS, Starting on Sun01/07/18 at 1120, Until Sun01/07/18 at 1813, Routine sodium chloride 0.9% bolus solution 1,000 mL 1,000 mL, IV, ONE TIME ONLY, 1 dose, On Sun01/06/18 at 1815, at 2,000 mL/hr, Administer over 30 Minutes, Routine New Bag 01/06/2018 6:51 PM CDT 1,000 mL 2000 mL/hr sodium chloride 0.9% bolus solution 2,000 mL 2,000 mL, IV, ONE TIME ONLY, 1 dose, On Sun01/06/18 at 1630, at 4,000 mL/hr, Administer over 30 Minutes, Routine New Bag 01/06/2018 4:50 PM CDT 2,000 mL 4000 mL/hr sodium chloride 0.9% infusion IV, at 125 mL/hr, CONTINUOUS, Starting on Sun01/07/18 at 0245, Until Sun01/07/18 at 1813, Stat New Bag 01/07/2018 3:04 AM CDT 125 mL/hr sodium chloride flush injection 5 mL 5 mL, IV, EVERY 12 HOURS (BlD), First dose on Sun01/07/18 at 1130, Until Discontinued, Routine Given 01/07/2018 1:21 PM CDT 5 mL sodium chloride flush injection 5 mL 5 mL, IV, SEE ADMIN INSTRUCTIONS, Starting on Sun01/07/18 at 1120, Until Sun01/07/18 at 1813, Routine thiamine 100 mg, folic acid 1 mg, magnesium sulfate 2 Gram in dextrose 5% - sodium chloride 0.45% 1,000 mL infusion IV, at 125 mL/hr, ONE TIME ONLY, 1 dose, On Sun01/06/18 at 2100, Routine Rate Change 01/07/2018 2:41 AM CDT 999 mL/hr Rate Verify 01/07/2018 1:27 AM CDT 125 mL/hr New Bag 01/06/2018 10:28 PM CDT 125 mL/hr documented in this encounter Active and Recently Administered Medications Times are shown in CDT. Scheduled Medication Order 01/05/2018 01/06/2018 01/07/2018 amitriptyline (ELAVIL) tablet 10 mg 10 mg, Oral, DAILY AT BEDTIME, First dose on Sun01/07/18 at 0045, Until Discontinued, Routine 0224 (Given - Provid er: Shannon Morley RN) dextrose 5 % in water 250 mL flush bag 25 mL 25 mL, IV, SEE ADMIN INSTRUCTIONS, Starting on Sun01/07/18 at 1120, Until Sun01/07/18 at 1813, Routine doxylamine (UNISOM) tablet 25 mg 25 mg, Oral, DAILY AT BEDTIME, First dose on Sun01/06/18 at 2100, Until Discontinued, Routine 2233 (Given - Provider: Shannon Morley RN) famotidine PF (PEPCID) 20 mg/2 mL injection 20 mg (COMPLETED) 20 mg, IV, ONE TIME ONLY, 1 dose, On Sun01/06/18 at 1630, Routine 1712 (Given - Provider: Bridgett Mccann, JACK) L-methylfolate (DEPLIN) tablet 15 mg 15 mg, Oral, DAILY, First dose on Sun01/07/18 at 0900, Until Discontinued, Routine 0945 (Given - Provid er: Brooklyn Rios RN) metFORMIN (GLUCOPHAGE) tablet 500 mg 500 mg, Oral, TWO TIMES DAILY, First dose on Sun01/07/18 at 0045, Until Discontinued 0226 (Given - Provid er: Shannon Morley RN)0944 (Given - Provider: Brooklyn Rios, RN) metoclopramide HCl (REGLAN) injection 10 mg (COMPLETED) 10 mg, IV, ONE TIME ONLY, 1 dose, On Sun01/06/18 at 1645, Routine 1709 (Given - Provider: Bridgett Mccann, JACK) metoclopramide HCl (REGLAN) injection 10 mg 10 mg, IV, EVERY 6 HOURS, First dose on Sun01/06/18 at 2100, Until Discontinued, Routine 2237 (Given - Provider: Shannon Morley RN) 0526 (Given - Provider: Shannon Morley, JACK)0947 (Given - Provider: Brooklyn Rios, RN)1508 (Given - Provider: Brooklyn Rios, RN) ondansetron (ZOFRAN ODT) tablet 4 mg (COMPLETED) 4 mg, Oral, ONE TIME ONLY, 1 dose, On Sun01/06/18 at 1815, Routine 1853 (Given - Provider: Bridgett Mccann, JACK) ondansetron (ZOFRAN ODT) tablet 4 mg 4 mg, Sublingual, EVERY 6 HOURS, First dose (after last modification) on Sun01/07/18 at 0045, Until Discontinued, Routine 0227 (Given - Provid er: Shannon Morley RN)0943 (Given - Provider: Brooklyn Rios RN)1508 (Given - Provider: Brooklyn Rios RN) pantoprazole (PROTONIX) tablet 40 mg 40 mg, Oral, DAILY, First dose on Sun01/07/18 at 0900, Until Discontinued, Routine 09 (Given - Provid er: Brooklyn Rios RN) potassium CHLORIDE 20 mEq/100 mL IVPB 20 mEq 20 mEq, IV, EVERY 2 HOURS, 2 doses, First dose on Sun01/07/18 at 0100, Last dose on Sun01/07/18 at 0300, Routine 0100 (Not Given - Provider: Shannon Morley RN - Reason: Clarify-Other (Comment))0305 (New Bag - Provider: Shannon Morley RN)0330 (Rate Change - Provider: Shannon Morley RN)0505 (Stopped - Provider: Brooklyn Rios RN)0533 (Rate Verify - Provider: Shannon Morley RN)0630 (Stopped - Provider: Shannon Morley RN) vit-iron fumarate-fa (HECTOR ) 28 mg iron- 800 mcg per tablet 1 Tablet 1 Tablet, Oral, DAILY, First dose on Sun01/07/18 at 0900, Until Discontinued, Routine 0943 (Given - Provid er: Brooklyn Rios RN) prochlorperazine (COMPAZINE) injection 10 mg (COMPLETED) 10 mg, IV, ONE TIME ONLY, 1 dose, On 01/06/18 at 1815, Routine 1859 (Given - Provider: Bridgett Mccann RN) progesterone micronized (PROMETRIUM) capsule 200 mg 200 mg, Oral, DAILY AT BEDTIME, First dose on Sun01/07/18 at 0045, Until Discontinued, Routine 022 (Given - Provid er: Shannon Morley RN) pyridoxine (vitamin B6) (VITAMIN B6) tablet 25 mg 25 mg, Oral, EVERY 12 HOURS (BlD), First dose on 01/06/18 at 2100, Until Discontinued, Routine 223 (Given - Provider: Shannon Morley RN) 0943 (Given - Provider: Brooklyn Rios RN) sodium chloride 0.9 % 250 mL flush bag 25 mL 25 mL, IV, SEE ADMIN INSTRUCTIONS, Starting on Sun01/07/18 at 1120, Until Sun01/07/18 at 1813, Routine sodium chloride 0.9% bolus solution 1,000 mL (COMPLETED) 1,000 mL, IV, ONE TIME ONLY, 1 dose, On Sun01/06/18 at 1815, at 2,000 mL/hr, Administer over 30 Minutes, Routine 1851 (New Bag - Provider: Bridgett Mccann RN)1921 (Stopped - Provider: Shannon Morley RN) sodium chloride 0.9% bolus solution 2,000 mL (COMPLETED) 2,000 mL, IV, ONE TIME ONLY, 1 dose, On Sun01/06/18 at 1630, at 4,000 mL/hr, Administer over 30 Minutes, Routine 1650 (New Bag - Provider: Bridgett Mccann RN)1720 (Stopped - Provider: Bridgett Mccann RN) sodium chloride flush injection 5 mL 5 mL, IV, EVERY 12 HOURS (BlD), First dose on Sun01/07/18 at 1130, Until Discontinued, Routine 1130 (Not Given - Provider: Brooklyn Rios, JACK - Reason: Staggering dose times)1321 (Given - Provider: Brooklyn Rios, RN) sodium chloride flush injection 5 mL 5 mL, IV, SEE ADMIN INSTRUCTIONS, Starting on Sun01/07/18 at 1120, Until Sun01/07/18 at 1813, Routine thiamine 100 mg, folic acid 1 mg, magnesium sulfate 2 Gram in dextrose 5% - sodium chloride 0.45% 1,000 mL infusion (COMPLETED) IV, at 125 mL/hr, ONE TIME ONLY, 1 dose, On Sun01/06/18 at 2100, Routine 2228 (New Bag - Provider: Shannon Morley, JACK) 0127 (Rate Verify - Provider: Shannon Morley, RN)0241 (Rate Change - Provider: Shannon Morley, RN)0304 (Stopped - Provider: Shannon Morley, RN) Continuous Medication Order 01/05/2018 01/06/2018 01/07/2018 dextrose 5% - lactated ringers infusion (CANCELED) IV, at 125 mL/hr, CONTINUOUS, Starting on Sun01/06/18 at 2015, Until Sun01/07/18 at 1115, Stat 2023 (New Bag - Provider: Shannon Morley RN)2228 (Stopped - Provider: Shannon Morley RN) 0717 (Rate Change - Provider: Shannon Morley RN)1130 (Stopped - Provider: Brooklyn Rios RN) sodium chloride 0.9% infusion IV, at 125 mL/hr, CONTINUOUS, Starting on Sun01/07/18 at 0245, Until Sun01/07/18 at 1813, Stat 0304 (New Bag - Provider: Shannon Morley RN)0717 (Stopped - Provider: Shannon Morley RN) PRN Medication Order 01/05/2018 01/06/2018 01/07/2018 acetaminophen (TYLENOL) tablet 1,000 mg 1,000 mg, Oral, EVERY 8 HOURS PRN, Starting on Sun01/07/18 at 1245, Until Sun01/07/18 at 1813, Pain, Routine 1307 (Given - Provid er: Brooklyn Rios RN) diphenhydrAMINE (BENADRYL) injection 12.5 mg 12.5 mg, IV, EVERY 6 HOURS PRN, Starting on Sun01/07/18 at 0033, Until Sun01/07/18 at 1813, Nausea/Emesis, Routine docusate sodium (COLACE) capsule 100 mg 100 mg, Oral, TWO TIMES DAILY PRN, Starting on Sun01/07/18 at 0034, Until Sun01/07/18 at 1813, Constipation, Routine promethazine (PHENERGAN) rectal suppository 25 mg 25 mg, Rectal, EVERY 6 HOURS PRN, Starting on Sun01/06/18 at 2011, Until Sun01/07/18 at 1813, Nausea/Emesis, Routine documented in this encounter Care Teams Chiropractic Practice Manager Relationship Specialty Start Date End Date Bernadine Rachid DO [address] [address] [place] [address] PCP - General Geriatric Medicine 01/06/18 11/14/23 documented as of this encounter
--- OUTSIDE RECORDS SUMMARY | 2024-08-03 01:40 | XMS_ITS | Encounter Summary ---
Author Organization [facility] Address [address] [place] [address] Care Team Providers Care Electronics Lead Name Role Phone Rachid Colindres DO Primary Care Provider Reason for Visit * Reason Comments Nausea Patient feels like s he is about to faint;Patient is having non stop sweating and chills; Dizziness Flu symptoms symptom based Shortness of Breath Patient is having ba d pain while breathing; Encounter Details Date Type Department Care Team (Late st Contact Info) Description 09/22/2020 10:45 AM MARKER HAND Office Visit [facility] [address] [place] [address] Skinyn Alexis PA-C [address] [place] [phone] Nausea (Primary Dx); Mass of right side of neck; Dizziness; Diaphoresis; Chest tightness; Shortness of breath Social History Tobacco Use Types Packs/Day Years [...] COVID-19? No / Unsure 09/13/2020 4:18 PM MARKER HAND documented as of this encounter Last Filed Vital Signs Vital Sign Reading Time Taken Comments Blood Pressure 132/86 09/22/2020 10:55 AM MARKER HAND Pulse 101 09/22/2020 10:55 AM MARKER HAND Temperature 36.7 ??C (98.1 ??F) 09/22/2020 10:[address] Respiratory Rate 18 09/22/2020 10:55 AM MARKER HAND Oxygen Saturation 97% 09/22/2020 10:55 AM MARKER HAND Inhaled Oxygen Concentration - - Weight 112.5 kg (248 lb) 09/22/2020 10:55 AM MARKER HAND Height - - Body Mass Index 40.03 09/14/2020 12:47 PM MARKER HAND documented in this encounter Progress Notes * Skinny Alexis PA-C - 09/22/2020 10:45 AM CST Assessment and Plan Encounter Diagnoses Name Primary? Nausea Yes ??? Mass of right side of neck ??? Dizziness ??? Diaphoresis ??? Chest tightness ??? Shortness of breath Vera was seen today for nausea, dizziness, flu symptoms symptom based and shortness of breath. Diagnoses and all orders for this visit: Nausea - EKG 12-LEAD Mass of right side of neck - EKG 12-LEAD Dizziness - EKG 12-LEAD Diaphoresis - EKG 12-LEAD Chest tightness - EKG 12-LEAD Shortness of breath - EKG 12-LEAD Comment: ? EMS contacted shortly after pt arrival. Pt in moderate-severe distress, tearful with complaints of right neck pain, dizziness, non-stop sweating. EKG performed in clinic showing Sinus Tachycardia with no obvious ST changes, pt to f/u in [facility] for further evaluation via EMS transport. Subjective History of present illness Vera Vitale is a 35 y.o. female who presents with right neck/facial pain x 1-2 weeks, graduallyworsening. Pt notes non-stop sweating , worsening dizziness, and shortness of breath associated with sxs. Pt notes history of COVID last month, stating I never fully recovered . Denies measuring fever, but states I am taking Tylenol around the clock and can't stop sweating . Pt was seen in clinic 8 days ago, diagnosed with ear infection and vertigo, pt prescribed Amoxicillin and Flonase, pt notes sxs have worsened. Location: Right posterior neck Duration: 1-2 weeks Context: Acute. has used any medications for these symptoms prior to presentation. Severity: severe Review of Systems Constitutional: has had fever, chills, body aches, or recent illness. ENT: has had sore throat, earache, nasal congestion, or sinus tenderness. Respiratory: has had cough or shortness of breath. Cardiac: has had chest pain or palpitations. Gastrointestinal: has had abdominal pain, nausea, vomiting, or diarrhea. Dermatologic: has had no recent raches or lesions. Neurologic: has had recent headache, dizziness, numbness or tingling. No outpatient medications have been marked as taking for the 09/22/20 encounter (Office Visit) with Skinny Alexis PA-C. Patient Active Problem List Diagnosis Date Noted ??? Diet controlled gestational diabetes mellitus (GDM) in third trimester 06/26/2018 ??? Chest pain ??? Dyspnea on exertion ??? Nausea 09/18/2016 ??? Bipolar affective disorder, currently depressed, moderate 09/15/2016 ??? CLOTILDE (generalized anxiety disorder) 09/15/2016 ??? S/P section 09/13/2016 ??? Cholestasis during 09/13/2016 ??? Nausea and vomiting during 08/21/2016 ??? Diarrhea 08/21/2016 ??? related fatigue in third trimester 08/21/2016 ??? SOB (shortness of breath) 08/21/2016 Overview Note: Exertional SOB ??? Viral gastritis 07/24/2016 ??? Feeling pelvic pressure during in second trimester, antepartum 06/02/2016 ??? 08/06 L ruptured ectopic s/p dx lap, L fallopian; percocet, ADAT 08/07/2015 ??? Tobacco use 08/06/2015 ??? Normal (single liveborn) 11/23/2010 ??? C section 11/2111/21/2010 Social History Tobacco Use ??? Smoking status: Former Smoker Packs/day: 0.50 Years: 10.00 Pack years: 5.00 Types: Cigarettes ??? Smokeless tobacco: Never Used Substance Use Topics ??? Alcohol use: No ??? Drug use: No Family History Problem Relation Name Age of Onset ??? Diabetes Father ??? Thyroid Disease Father ??? Hypertension Mother ??? Diabetes Brother Objective Vitals: 09/22/20 1055 BP: 132/86 Pulse: (!) 101 Resp: 18 Temp: 98.1 ??F (36.7 ??C) SpO2: 97% Physical Exam General: pt in moderate active distress, tearful in room, complaining of pain, diaphoretic HEENT: neck: sizable, palpable mass measuring approximatley 3-4 cm to posterior right neck; EYEs: EOM intact, PERRL bilaterally; THROAT: no pharyngeal erythema, no obvious tonsillar hypertrophy, uvula midline, no evidence of EAP COUNSELOR, no drooling RESP: Breath sounds equal bilaterally. No adventitous sounds audible. CV: S1/S2. Without murmur, rub, or click. Skin: Warm and well-perfused without acute rashes or lesions. Neuro: Moves all extremities equally, sensation globally intact, speaking clearly and appropriately. ER HAND documented in this encounter Plan of Treatment Upcoming Encounters Date Type Department Care Team (Late st Contact Info) Description 10/14/2024 11:00 AM MARKER HAND Office Visit [facility] - [place] [address] [place] [address] [facility] [address] [place] [address] Ubaldo Cardenas MD [address] [place] [address] Scheduled Orders Name Type Priority Associated Diagnoses Orde r Schedule EKG 12-LEAD ECG Stat Nausea Mass of right side of neck Dizziness Diaphoresis Chest tightness Shortness of breath Ordered: 09/22/2020 documented as of this encounter Visit Diagnoses Diagnosis Nausea- Primary Nausea alone Mass of right side of neck Swelling, mass, or lump in head and neck Dizziness Dizziness and giddiness Diaphoresis Generalized hyperhidrosis Chest tightness Other chest pain Shortness of breath documented in this encounter Additional Health Concerns Infection Onset Date Last Indicated Resolved Time COVID-19 08/24/2020 08/24/2020 09/23/2020 1:16 AM MARKER HAND documented as of this encounter Care Teams Electronics Lead Relationship Specialty Start Date End Date Rachid Colindres DO [address] [phone] PCP - General Geriatric Medicine 01/06/18 11/14/23 documented as of this encounter
--- OUTSIDE RECORDS SUMMARY | 2024-08-03 01:40 | XMS_ITS | Encounter Summary ---
Author Organization [employer] Address [address] [place] [address] Care Team Providers Care Limehouse Worker Name Role Phone Rachid Colindres Primary Care Provider Reason for Visit * Reason Onset Date Comments Medication Refill 06/01/2018 Donis Encounter Details Date Type Department Care Team (Late st Contact Info) Description 06/01/2018 Nurse Triage [facility] Nurse controlled area checker [address] [place] [address] Sheila Keita RN Social History Tobacco Use Types Packs/Day Years [...] as of this encounter Miscellaneous Notes * Addendum Note - Sheila Keita RN - 06/01/2018 10:32 AM CDTAddended by: SHEILA KEITA on: 06/01/2018 10:32 AM Modules accepted: Orders * Telephone Encounter - Sheila Keita RN - 06/01/2018 10:[address] [facility] returns page and will authorize refill of Zofran ODT 4 mg, 1 tab PO every 6 hrs prn n/v. #20 dispensed. This is sent to [facility] pharmacy of pt's choice. Pt is notified. * Telephone Encounter - Sheila Keita RN - 06/01/2018 10:12 AM CDT Reason for Disposition ??? [1] Prescription not at pharmacy AND [2] was prescribed today by PCP Pt was told that Zofran had been prescribed yesterday, however it is not at the pharmacy Protocols used: MEDICATION QUESTION CALL-A-AH * Telephone Encounter - Sheila Keita RN - 06/01/2018 10:00 AM CDT [facility]ard[facility] wks preg. Refill ondansetron. ----- Message from Supa Corona sent at 06/01/2018 9:06 AM CDT ----- Patient's [address] on file: [address] [place] [address] Patient's current location: Same as above documented in this encounter Plan of Treatment Upcoming Encounters Date Type Department Care Team (Late st Contact Info) Description 10/14/2024 11:00 AM SUPERVISOR DENTAL LABORATORY Office Visit [facility] and Hematology - [place] [address] [place] [address] Ubaldo Cardenas MD [address] [place] [address] documented as of this encounter Visit Diagnoses Not on filedocumented in this encounter Care Teams Limehouse Worker Relationship Specialty Start Date End Date Rachid Colindres DO [address] [phone] PCP - General Geriatric Medicine 01/06/18 11/14/23 documented as of this encounter
--- OUTSIDE RECORDS SUMMARY | 2024-08-03 01:40 | XMS_ITS | Encounter Summary ---
Author Organization [facility] Address [address] [place] [address] Care Team Providers Care Electronic Pagination System Operator Name Role Phone Hilda Eden BABBITT SPINNER Primary Care Provider [phone] Reason for Visit * Auth/Cert Specialty Diagnoses / Procedures Referred By Reva t Referred To Contact Obstetrics Diagnoses c/s on 09/13, ANAND, N/V St Ob Triage [address] [place] [address] Referral ID Status Reason Start Date Expiration Date Visits Re quested Visits Authorized [id number] 09/19/2016 10/20/2017 1 Encounter Details Date Type Department Care Team (Latest Contact Info) Description 09/18/2016 4:46 PM RACE BOARD ATTENDANT - 09/18/2016 8:33 PM RACE BOARD ATTENDANT Hospital Encounter [facility] OB Triage [address] [place] [address] [place] [address] [place] [address] Nausea Discharge Disposition: Home or Self Care Social [...] Sign Reading Time Taken Comments Blood Pressure 116/74 09/18/2016 6:30 PM RACE BOARD ATTENDANT Pulse 78 09/18/2016 5:27 PM RACE BOARD ATTENDANT Temperature 36.3 ??C (97.3 ??F) 09/18/2016 5:27 PM CS T Respiratory Rate 18 09/18/2016 6:30 PM RACE BOARD ATTENDANT Oxygen Saturation - - Inhaled Oxygen Concentration - - Weight 95.3 kg (210 lb) 09/18/2016 5:27 PM RACE BOARD ATTENDANT Height 167.6 cm (5' 6 ) 09/18/2016 5:27 PM RACE BOARD ATTENDANT Body Mass Index 33.89 09/18/2016 5:27 PM RACE BOARD ATTENDANT documented in this encounter Discharge Instructions * Discharge Instructions* Myriam Duarte RN - 09/18/2016 8:23 PM RACE BOARD ATTENDANT Follow-up: Follow-up with your doctor at your next scheduled appointment. Prescriptions given? ?? Colace: 100 mg tablets- take one tablet by mouth two times per day to soften stool. ?? Iron: take one tablet as prescribed for iron supplementation. Additional Instructions: Drink plenty of water Diet: Your diet is regular BOARD ATTENDANT * Attachments The following attachments cannot be sent through Care Everywhere. * IRON-RICH DIET ([place]) documented in this encounter Medications at Time of Discharge Medication Sig Dispensed Refills Start Date End Date docusate sodium (COLACE) 100 mg capsule Take 1 Capsule (100 mg) by mouth 2 times daily. 60 Capsule 1 09/18/2016 11/17/2016 ferrous sulfate 325 mg (65 mg iron) tablet Take 1 Tablet (325 mg) by mouth daily. 30 Tablet 1 09/19/2016 11/18/2016 ibuprofen (MOTRIN) 600 mg tablet Take 1 [...] as of this encounter Progress Notes * Myriam Duarte RN - 09/18/2016 8:33 PM CST IV d/c'ed. Pt. Discharged home with instructions for an iron-rich diet and given prescriptions for iron supplements and colace. Pt. Instructed to increase PO fluids and to follow up with Dr. Julien as scheduled. Pt. Verbalized understanding. BOARD ATTENDANT * Myriam Duarte RN - 09/18/2016 5:27 PM CST Pt. Presents to OB triage with c/o ANAND and N/V since yesterday. Pt. Vomiting on admission. IV started and labs obtained. Serial blood pressures initiated. Leila Grant CNM notified of admission and intosee pt. BOARD ATTENDANT documented in this encounter H&P Notes * Lesvia Grant ARNP - 09/18/2016 5:49 PM CST sock mender History and Physical CC: N/V HPI: Vera Vitale is a 31 y.o. who presents with c/o N/V that began yesterday. Pt was a repeat c/s on 09/13/16 for gestational HTN (required no medication) and cholestasis of . Ptwent home on 09/16/16. Is nursing her baby and feels that is going well. Feels like she is getting adequate sleep for just having a . Reports she is passing flatus and had a bowel movement today. Unable to take her pain medication due to the N/V. Denies fever, but states she at times feels hotand sweaty. Denies any other ill family members.Also c/o headache over her right eye and feels likeit is moving down her face. Denies vision changes. ROS: Comprehensive ROS done. Pertinent positives noted above. All others neg. 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 Poultry History: denies history of abnormal Pap smears or STIs OB History: OB History Para Term AB SAB TAB Ectopic Multiple Living 12 2 1 1 10 9 0 1 0 2 # Outcome Date GA Lbr Sameer/2nd Weight Sex Delivery Anes PTL Lv 12 09/13/16 36w4d 3515 g (7 lb 12 oz) M CS-LTranv N Y Comments: Gross congenital anomalies 11 SAB 09/2015 SAB 10 Ectopic 07/2015 ECTOPIC 9 SAB 03/2014 SAB 8 SAB 07/2013 SAB 7 SAB 09/2012 SAB 6 SAB 04/2012 SAB 5 Term 11/21/10 37w0d 3147 g (6 lb 15 oz) M CS-LTranv EPI N Y Complications: Failure to Progress in First Stage,Preeclampsia,Cholestasis during in third trimester Comments: No observed anomalies 4 SAB 2009 SAB 3 SAB 2007 SAB 2 SAB 2006 SAB 1 SAB 2004 SAB PMHx: Anxiety/Depression Past Medical History Diagnosis Date ??? Anxiety Zoloft ??? Bipolar affective disorder ??? Depression bipolar ??? High cholesterol ??? MRSA (methicillin resistant Staphylococcus aureus) 08/2009 cysts on leg, never cultured-told it was staph and was given medication PSHx: Ear surgery, cholecystectomy, C/S x2; left salpingectomy Past Surgical History Procedure Laterality Date ??? Hx ear surgery ??? Hx cholecystectomy 02/2010 ??? Pr delivery only 11/21/2010 SECTION performed by KEO JULIEN at [facility] L[facility]D ??? Hchg dilitation and curettage 01/14/2014 ??? Pr lap,rmv adnexal structure N/A 08/06/2015 LEFT SALPINGECTOMY LAPAROSCOPIC FOR ECTOPIC performed by Ayde Judge MD at [facility] ??? Hx lymph node dissection 10/2014 armpit ??? Hx dilation and curettage 01/2014 per fertility MD ??? Pr delivery only N/A 09/13/2016 SECTION performed by Keo Julien MD at [facility] L&D PSocHX: Previous smoker, denies ETOH Social History Substance Use Topics ??? Smoking status: Former Smoker Packs/day: 0.50 Years: 10.00 Types: Cigarettes ??? Smokeless tobacco: Never Used ??? Alcohol use No Medications: PNV, Metformin, not taking prescribed Zoloft or narcotic pain med Allergies Allergen Reactions ??? Adhesive Other (See Comments) Skin irritation Physical Exam: Vitals: 09/18/16 1727 BP: (!) 145/81 BP Location: Right arm Patient Position (BP): Sitting Pulse: 78 Resp: 16 Temp: 97.3 ??F (36.3 ??C) Weight: 95.3 kg (210 lb) Height: 5' 6 (1.676 m) General: Well-developed, well-nourished female in [facility] HEENT: Normocephalic, atraumatic. Mucus membranes moist, skin very pale, cool and dry Heart: acyanotic, RRR Lungs: unlabored, CTAB Abdomen: soft, NT, active BS x 4, + flatus, + BM today. Low transverse incision area without redness or drainage, healing well. Extremities: No clubbing, cyanosis, trace bilateral pedal edema. No calf tenderness SSE: deferred, states light lochia Results for orders placed or performed during the hospital encounter of 09/18/16 (from the past 24 hour(s)) URIC ACID Result Value Ref Range URIC ACID 7.5 (H) 2.4 - 5.7 mg/dL CBC WITH DIFFERENTIAL Result Value Ref Range WBC 6.9 4.0 - 9.8 K/uL RBC 3.01 (L) 3.90 - 4.90 M/uL HEMOGLOBIN 8.9 (L) 11.8 - 14.8 g/dL HEMATOCRIT 26.0 (L) 35.5 - 44.0 % MCV 86.4 82.0 - 99.0 fL MCH 29.6 27.2 - 32.6 pg MCHC 34.2 31.5 - 35.5 g/dL RDW 15.1 (H) 11.5 - 14.5 % RDW-STDEV 47.1 37.1 - 48.7 fL PLATELETS 361 (H) 140 - 350 K/uL MPV 8.8 (L) 9.3 - 12.4 fL NEUTROPHILS 68 % LYMPHOCYTES 25 % MONOCYTES 6 % EOSINOPHILS 1 % BASOPHILS 0 % IMMATURE GRANULOCYTES 1 % NEUTROPHIL ABSOLUTE 4.66 1.90 - 7.00 K/uL LYMPHOCYTE ABSOLUTE 1.70 0.70 - 4.50 K/uL MONOCYTE ABSOLUTE 0.42 0.10 - 1.30 K/uL EOSINOPHIL ABSOLUTE 0.05 0.00 - 0.70 K/uL BASOPHILS ABSOLUTE 0.01 0.00 - 0.20 K/uL IMMATURE GRANULOCYTES ABSOLUTE 0.07 (H) 0.00 - 0.03 K/uL COMPREHENSIVE METABOLIC PANEL Result Value Ref Range SODIUM 143 136 - 145 mmol/L POTASSIUM 3.2 (L) 3.5 - 5.0 mmol/L CHLORIDE 104 98 - 107 mmol/L CO2 23 22 - 29 mmol/L CALCIUM 8.8 8.6 - 10.2 mg/dL BUN 5 (L) 6 - 20 mg/dL CREATININE 0.64 0.51 - 0.95 mg/dL GLUCOSE 90 74 - 99 mg/dL TOTAL PROTEIN 6.5 (L) 6.7 - 8.6 g/dL ALBUMIN 3.5 3.5 - 5.2 g/dL BILIRUBIN TOTAL <0.2 (L) 0.3 - 1.2 mg/dL ALKALINE PHOSPHATASE 140 (H) 35 - 104 U/L AST 33 (H) <33 U/L ALT 38 (H) <34 U/L GFR >60 >=60 mL/min/1.73 sq meter GFR, >60 >=60 mL/min/1.73 sq meter ANION GAP 16 8 - 16 mmol/L URINALYSIS WITH REFLEX CULTURE Result Value Ref Range COLOR UA Yellow Pale to Dark Yellow CLARITY UA Clear Clear SPECIFIC GRAVITY UA 1.013 PH UA 8.0 5.0 - 8.0 LEUKOCYTE ESTERASE UA Trace (A) Negative NITRITE UA Negative Negative PROTEIN UA Negative Negative GLUCOSE UA Negative Negative KETONES UA Negative Negative UROBILINOGEN UA Normal <2.0 mg/dL BILIRUBIN UA Negative Negative BLOOD UA 2+ (A) Negative WBC UA 0-2 0 - 2 /hpf RBC UA 0-2 0 - 2 /hpf BACTERIA UA Negative Negative /hpf EPITHELIAL CELLS, URINE 0-5 0 - 5 /hpf PROTEIN , RANDOM URINE Result Value Ref Range PROTEIN CONCENTRATION 21 (H) 0 - 20 mg/dL CREATININE, URINE 155.8 29.0 - 226.0 mg/dL PROTEIN/CREAT RATIO, URINE 0.13 0.00 - 0.19 mg/mg Creatinine Pt states her headache is still present but the nausea is better. Is willing to try po Tylenol now. No N/V while in triage Assessment/Plan: 31 y.o. c/s 1. N/V (resolved) 2. Normotensive with negative PIH labs. 3. Anemia CNM updated Dr. Julien and received discharge orders home. Enc pt to po hydrate, rest as much as possible, provided pt with a script for iron and colace. Keep next appt and call provider as needed. NEYMAR Mac BOARD ATTENDANT documented in this encounter Plan of Treatment Upcoming Encounters Date Type Department Care Team (Late st Contact Info) Description 10/14/2024 11:00 AM RACE BOARD ATTENDANT Office Visit [facility] Oncology and Hematology - [place] [address] [facility] [address] [place] [address] Ubaldo aCrdenas MD [address] [facility] [address] [place] [address] documented as of this encounter Procedures Procedure Name Priority Date/Time Associated Diagnosis Comments URINALYSIS WITH REFLEX CULTURE Stat 09/18/2016 5:31 PM RACE BOARD ATTENDANT CBC WITH DIFFERENTIAL Stat 09/18/2016 5:31 PM RACE BOARD ATTENDANT PROTEIN , RANDOM URINE Stat 7 5:31 PM RACE BOARD ATTENDANT URIC ACID Stat 09/18/2016 5:31 PM RACE BOARD ATTENDANT COMPREHENSIVE METABOLIC PANEL Stat 09/18/2016 5:31 PM RACE BOARD ATTENDANT documented in this encounter Results * (ABNORMAL) PROTEIN , RANDOM URINE (09/18/2016 5:31 PM RACE BOARD ATTENDANT) PROTEIN CONCENTRATION 21(H) 0 - 20 mg/dL 09/18/2016 6:04 PM RACE BOARD ATTENDANT [facility] CREATININE, URINE 155.8 29.0 - 226.0 mg/dL 09/18/2016 6:[address] [facility] LABORATORY [facility] Comment: Reference Range varies with fluid intake and diet. PROTEIN/CREAT RATIO, URINE 0.13 0.00 - 0.19 mg/mg Creatinine 09/18/2016 6:[address] [facility] LABORATORY [facility] Urine URINE SPECIMEN OBTAINED BY CLEAN CATCH PROCEDURE / Unknown Collection / Unknown 09/18/2016 5:31 PM RACE BOARD ATTENDANT 09/18/2016 5:37 PM RACE BOARD ATTENDANT Lesvia Grant [facility] URINE ORDERABL ES [facility] CLIA# [id number] [address] [facility] [place] [address] * (ABNORMAL) URINALYSIS WITH REFLEX CULTURE (09/18/2016 5:31 PM RACE BOARD ATTENDANT) COLOR UA Yellow Pale to Dark Yellow 09/18/2016 5:[address] [facility] LABORATORY [facility] CLARITY UA Clear Clear 09/18/2016 5:[address] [facility] LABORATORY [facility] SPECIFIC GRAVITY UA 1.013 09/18/2016 5:[address] [facility] LABORATORY [facility] PH UA 8.0 5.0 - 8.0 09/18/2016 5:[address] [facility] LABORATORY [facility] LEUKOCYTE ESTERASE UA Trace(A) Negative 09/18/2016 5:[address] [facility] LABORATORY [facility] Comment: For patients with 'trace' results, consider ordering a culture and sensitivity if clinically indicated. NITRITE UA Negative Negative 09/18/2016 5:[address] [facility] LABORATORY [facility] PROTEIN UA Negative Negative 09/18/2016 5:[address] [facility] LAB[facility]AT[facility] GLUCOSE UA Negative Negative 09/18/2016 5:[address] [facility] LAB[facility]AT[facility] KETONES UA Negative Negative 09/18/2016 5:[address] [facility] LAB[facility]AT[facility] UROBILINOGEN UA Normal <2.0 mg/dL 7 5:49 PM [facility] BILIRUBIN UA Negative Negative 09/18/2016 5:[address] [facility] BLOOD UA 2+(A) Negative 09/18/2016 5:[address] [facility] WBC UA 0-2 0 - 2 /hpf 09/18/2016 5:[address] [facility] RBC UA 0-2 0 - 2 /hpf 09/18/2016 5:49 PM [facility] BACTERIA UA Negative Negative /hpf 09/18/2016 5:49 PM [facility] EPITHELIAL CELLS, URINE 0-5 0 - 5 /hpf 09/18/2016 5:49 PM [facility] Urine URINE SPECIMEN OBTAINED BY CLEAN CATCH PROCEDURE / Unknown Collection / Unknown 09/18/2016 5:31 PM RACE BOARD ATTENDANT 09/18/2016 5:37 PM RACE BOARD ATTENDANT Lesvia BURR URINE ORDERABL ES [id number] [address] [facility] [place] [address] * (ABNORMAL) COMPREHENSIVE METABOLIC PANEL (09/18/2016 5:31 PM RACE BOARD ATTENDANT) SODIUM 143 136 - 145 mmol/L 09/18/2016 6:24 PM [facility] POTASSIUM 3.2(L) 3.5 - 5.0 mmol/L 09/18/2016 6:24 PM [facility] CHLORIDE 104 98 - 107 mmol/L 09/18/2016 6:24 PM [facility] LABORATORY [facility] CO2 23 22 - 29 mmol/L 09/18/2016 6:24 PM [facility] [employer] [facility] CALCIUM 8.8 8.6 - 10.2 mg/dL 09/18/2016 6:24 PM [facility] BUN 5(L) 6 - 20 mg/dL 09/18/2016 6:24 PM [facility] LABORATORY [facility] - . [facility] CREATININE 0.64 0.51 - 0.95 mg/dL 09/18/2016 6:24 PM [facility] LABORATORY SERVICES - [facility] GLUCOSE 90 74 - 99 mg/dL 09/18/2016 6:[address] [facility] LABORATORY SERVICES - [facility] TOTAL PROTEIN 6.5(L) 6.7 - 8.6 g/dL 09/18/2016 6:24 PM [facility] LABORATORY SERVICES [facility] ALBUMIN 3.5 3.5 - 5.2 g/dL 09/18/2016 6:24 PM [facility] LABORATORY SERVICES [facility] BILIRUBIN TOTAL <0.2(L) 0.3 - 1.2 mg/dL 09/18/2016 6:24 PM [facility] LABORATORY SERVICES [facility] ALKALINE PHOSPHATASE 140(H) 35 - 104 U/L 09/18/2016 6:24 PM [facility] LAB[facility]AT[facility] - . [facility] AST 33(H) <33 U/L 09/18/2016 6:24 PM [facility] LABORATORY SERVICES [facility] ALT 38(H) <34 U/L 09/18/2016 6:24 PM [facility] LABORATORY [facility] GFR >60 >=60 mL/min/1.7 3 sq meter 09/18/2016 6:24 PM [facility] LABORATORY SERVICES [facility] Comment: eGFR has not been validated for [...] GFR, >60 >=60 mL/min/1.7 3 sq meter 09/18/2016 6:24 PM [facility] LABORATORY SERVICES [facility] ANION GAP 16 8 - 16 mmol/L 09/18/2016 6:24 PM [facility] LABORATORY [facility] Blood Venipuncture / Unknown 09/18/2016 5:31 PM RACE BOARD ATTENDANT 09/18/2016 5:37 PM RACE BOARD ATTENDANT Lesvia Shiloh Rudy [facility] CHEMISTRY ELIZA LINTON [facility] LABORATORY SERVICES - [facility] CLIA# [id number] [address] [place] [address] * (ABNORMAL) CBC WITH DIFFERENTIAL (09/18/2016 5:31 PM RACE BOARD ATTENDANT) WBC 6.9 4.0 - 9.8 K/uL 09/18/2016 5:47 PM RACE BOARD ATTENDANT [facility] LABORATORY SERVICES - . [facility] RBC 3.01(L) 3.90 - 4.90 M/uL 09/18/2016 5:47 PM RACE BOARD ATTENDANT [facility] LABORATORY SERVICES - . [facility] HEMOGLOBIN 8.9(L) 11.8 - 14.8 g/dL 09/18/2016 5:47 PM RACE BOARD ATTENDANT [facility] LABORATORY SERVICES - . [facility] HEMATOCRIT 26.0(L) 35.5 - 44.0 % 09/18/2016 5:47 PM RACE BOARD ATTENDANT [facility] LABORATORY SERVICES - . [facility] MCV 86.4 82.0 - 99.0 fL 09/18/2016 5:47 PM RACE BOARD ATTENDANT [facility] LABORATORY SERVICES - . [facility] MCH 29.6 27.2 - 32.6 pg 09/18/2016 5:47 PM RACE BOARD ATTENDANT [facility] LABORATORY SERVICES - . [facility] MCHC 34.2 31.5 - 35.5 g/dL 09/18/2016 5:47 PM RACE BOARD ATTENDANT [facility] LABORATORY SERVICES - . [facility] RDW 15.1(H) 11.5 - 14.5 % 09/18/2016 5:47 PM RACE BOARD ATTENDANT [facility] LABORATORY SERVICES - . [facility] RDW-STDEV 47.1 37.1 - 48.7 fL 09/18/2016 5:47 PM RACE BOARD ATTENDANT [facility] LABORATORY SERVICES - . [facility] PLATELETS 361(H) 140 - 350 K/uL 09/18/2016 5:47 PM RACE BOARD ATTENDANT [facility] LABORATORY SERVICES - . [facility] MPV 8.8(L) 9.3 - 12.4 fL 09/18/2016 5:47 PM RACE BOARD ATTENDANT [facility] NEUTROPHILS 68 % 09/18/2016 5:47 PM RACE BOARD ATTENDANT [facility] LYMPHOCYTES 25 % 09/18/2016 5:47 PM RACE BOARD ATTENDANT [facility]ATORY [facility] MONOCYTES 6 % 09/18/2016 5:47 PM [facility] - . [facility] EOSINOPHILS 1 % 09/18/2016 5:47 PM [facility] - . [facility] BASOPHILS 0 % 09/18/2016 5:47 PM [facility] - . [facility] IMMATURE GRANULOCYTES 1 % 09/18/2016 5:47 PM [facility] - [facility] Comment:IG (Immature Granulo cyte) count includes Metamyelocytes, Myelocytes, and Promyelocytes NEUTROPHIL ABSOLUTE 4.66 1.90 - 7.00 K/uL 09/18/2016 5:47 PM [facility] LYMPHOCYTE ABSOLUTE 1.70 0.70 - 4.50 K/uL 09/18/2016 5:47 PM [facility] - . [facility] MONOCYTE ABSOLUTE 0.42 0.10 - 1.30 K/uL 09/18/2016 5:47 PM [facility] - . [facility] EOSINOPHIL ABSOLUTE 0.05 0.00 - 0.70 K/uL 09/18/2016 5:47 PM [facility] - . [facility] BASOPHILS ABSOLUTE 0.01 0.00 - 0.20 K/uL 09/18/2016 5:47 PM [facility] - [facility] IMMATURE GRANULOCYTES ABSOLUTE 0.07(H) 0.00 - 0.03 K/uL 09/18/2016 5:47 PM [facility] Blood Venipuncture / Unknown 09/18/2016 5:31 PM RACE BOARD ATTENDANT 09/18/2016 5:37 PM RACE BOARD ATTENDANT Lesvia Grant [facility] HEMATOLOGY ORD ERABLES [facility] CLIA# [id number] [address] [facility] [place] [place] [address] * (ABNORMAL) URIC ACID (09/18/2016 5:31 PM RACE BOARD ATTENDANT) Pathologist [facility] URIC ACID 7.5(H) 2.4 - 5.7 mg/dL 09/18/2016 6:24 PM [facility] Blood Venipuncture / Unknown 09/18/2016 5:31 PM RACE BOARD ATTENDANT 09/18/2016 5:37 PM RACE BOARD ATTENDANT Lesvia Grant CN CHEMISTRY ORDE [facility] LABORATORY SERVICES [facility]# [id number] [address] [place] [address] documented in this encounter Visit Diagnoses Diagnosis N&V (nausea and vomiting) Nausea with vomiting documented in this encounter Administered Medications Inactive Administered Medications - up to 3 most recent administrations Medication Order MAR Action Action Date Dose Rate Site acetaminophen (TYLENOL) tablet 1,000 mg 1,000 mg, Oral, ONE TIME ONLY, 1 dose, On Sun09/18/16 at 1900, Stat Given 09/18/2016 6:57 PM RACE BOARD ATTENDANT 1,000 mg ACETAMINOPHEN 500 MG TABLET 1 dose, Starting on Sun09/18/16 at 1854, Until Sun09/18/16 at 1857, Ramila WOLFF: cabinet override Lactated Ringers bolus solution 1,000 mL 1,000 mL, IV, ONE TIME ONLY, 1 dose, On Sun09/18/16 at 1715, at 2,000 mL/hr, Administer over 30 Minutes, Stat New Bag 09/18/2016 5:44 PM RACE BOARD ATTENDANT 1,000 mL 2000 mL/hr ondansetron (ZOFRAN) 4 mg/2 mL injection 8 mg 8 mg, IV, ONE TIME ONLY, 1 dose, On Sun09/18/16 at 1745, Stat Given 09/18/2016 5:44 PM RACE BOARD ATTENDANT 8 mg documented in this encounter Active and Recently Administered Medications Times are shown in RACE BOARD ATTENDANT. Scheduled Medication Order 09/16/2016 09/17/2016 09/18/2016 acetaminophen (TYLENOL) tablet 1,000 mg (COMPLETED) 1,000 mg, Oral, ONE TIME ONLY, 1 dose, On Sun09/18/16 at 1900, Stat 1857 (Given - Provid er: Myriam Duarte RN) ferrous sulfate tablet 325 mg 325 mg, Oral, DAILY, First dose on Sun09/19/16 at 0900, Until Discontinued, Stat Lactated Ringers bolus solution 1,000 mL (COMPLETED) 1,000 mL, IV, ONE TIME ONLY, 1 dose, On Sun09/18/16 at 1715, at 2,000 mL/hr, Administer over 30 Minutes, Stat 1744 (New Bag - Prov ider: Myriam Duarte RN)1814 (Due: Stopped - Provider: Myriam Duarte RN) ondansetron (ZOFRAN) 4 mg/2 mL injection 8 mg (COMPLETED) 8 mg, IV, ONE TIME ONLY, 1 dose, On Sun09/18/16 at 1745, Stat 1744 (Given - Provid er: Myriam Duarte RN) documented in this encounter Care Teams Electronic Pagination System Operator Relationship Specialty Start Date End Date Hilda Eden FNP [address] [place] [id number] PCP - General NURSE PRACTITIONER 07/13/13 01/05/18 documented as of this encounter
--- OUTSIDE RECORDS SUMMARY | 2024-08-03 01:40 | XMS_ITS | Encounter Summary ---
Author Organization [employer] Address [address] [place] [address] Care Team Providers Care Reception Interviewer Name Role Phone Hilda Eden RADHA Primary Care Provider Reason for Visit * Reason Comments Abdominal Pain Here with complaints of increasing abdominal pain, dizziness, chest pain and headaches. States that also has vaginal bleeding. Reports had C section on 09/13/16. No redness or drainage noted to incision. Reports did have significant bleeding after delivery. Encounter Details Date Type Department Care Team (Late st Contact Info) Description 09/25/2016 8:58 PM SYSTEMS SOFTWARE DEVELOPER - 09/25/2016 11:15 PM [facility] Emergency [facility] Emergency Department [address] [place] [address] Karissa Rust MD [address] [place] [address] Non-intractable vomiting with nausea, unspecified vomiting type (Primary Dx); Status post delivery Discharge Disposition: Home or Self Care Social [...] Sign Reading Time Taken Comments Blood Pressure 130/69 09/25/2016 10:00 PM SYSTEMS SOFTWARE DEVELOPER Pulse - - Temperature 36.6 ??C (97.9 ??F) 09/25/2016 6:01 PM CS T Respiratory Rate 18 09/25/2016 10:00 PM SYSTEMS SOFTWARE DEVELOPER Oxygen Saturation 98% 09/25/2016 10:00 PM SYSTEMS SOFTWARE DEVELOPER Inhaled Oxygen Concentration - - Weight 93 kg (205 lb) 09/25/2016 6:01 PM SYSTEMS SOFTWARE DEVELOPER Height 167.6 cm (5' 6 ) 09/25/2016 6:01 PM SYSTEMS SOFTWARE DEVELOPER Body Mass Index 33.09 09/25/2016 6:01 PM SYSTEMS SOFTWARE DEVELOPER documented in this encounter Discharge Instructions * Attachments The following attachments cannot be sent through Care Everywhere. * NAUSEA AND VOMITING (MALTESE) * SECTION: POST-OP (MALTESE) documented in this encounter Medications at Time of Discharge Medication Sig Dispensed Refills Start Date End Date ondansetron (ZOFRAN) 4 mg Tablet Take 1 Tablet (4 mg) by mouth every 8 hours as needed for Nausea. 10 Tablet None 09/25/2016 02/04/2017 acetaminophen-codeine (TYLENOL-CODEINE #3) 300-30 mg tablet Take 1 Tablet by mouth every 4 hours as needed for Pain. 6 Tablet 09/25/2016 02/04/2017 docusate sodium (COLACE) 100 mg capsule Take [...] daily. 02/03/2017 documented as of this encounter ED Notes * Carmen Donovan RN - 09/25/2016 10:18 PM CST Medications given per MAR.. Patient/family has been informed about benefits and any potential clinically significant side effects or other concerns regarding the administration of the drug they have just been given. Pt reports ABD pain 02/19, norco given. Family remains at bedside. Will continue to monitor. EMS SOFTWARE DEVELOPER * Kaden Diamond RN - 09/25/2016 7:29 PM CST Emergency Department Adult Pelvic Pain/Vaginal Bleeding Protocol [facility] ORDERS ARE ENTERED ???PER PROTOCOL?? Nursing Orders: o Insert peripheral IV o Let Clinical Drying Supervisor/charge nurse know so Labor & Delivery can be contacted (if patient is) Laboratory Orders: o CBC with diff ([id number]) o If female of childbearing age: POC Urine HCG (POC7) or HCG Qualitative urine ([id number]) if sending to lab o Serum HCG (if knowingly ) ([id number]) o Type and Screen ([id number]) Medication Orders: o Sodium chloride 0.9% (normal saline) flush 3 mLs every 8 hours o Sodium chloride 0.9% (normal saline) flush 3 mLs PRN for saline lock or medication administration Other Treatments o heart activity by Doppler or ultrasound (if patient is ) o Set up for Pelvic Initiating Department(s): Adult Emergency Department Reviewed: 12/15, 12/16, 12/17, 12/18, 12/19, 12/20, 12/21, 12/23, 08/26, 07/26; 11/2014, 12/2015 Revised: 12/22, 12/23, 08/26, 07/26; 11/2014, 12/2015 Revised by: Lizett Lyons RN, MSN, NEHA Nurse Commercial Construction Superintendent Approved by: Medical Executive Committee, Nursing, Pharmacy & Therapeutics Date: 12/2015 EMS SOFTWARE DEVELOPER * Karissa Rust MD - 09/25/2016 5:57 PM CST Images from the original note were not included. Emergency Department Attending Physician Note Seen in the ED by Dr. Karissa Rust MD History of Present Illness Documented Triage Chief Complaint: Abdominal Pain Subjective Provider was at the bedside at 9:59 PM Vera Vitale is a 31 y.o. female who presents with abdominal pain. The patient is s/p uncomplicated section on 09/13/16. Several days after discharge she developed nausea, diarrhea, abdominal cramping, intermittent lightheadedness and a few episodes of vomiting. Symptoms are worse with eating and pt has been unable to tolerate PO intake. Symptoms have persisted since onset. Today, she also developed sudden vaginal bleeding that she describes as gushing. Pt was told by her OB to visit the ED. Pt has not been taking any pain medications. She denies urinary symptoms. OB: Dr. Keo Julien Timing: gradual Severity: moderate Duration: New Frequency: Waxing and Waning Progression: Unchanged Quality: none Modifiers: Worsens with eating Associated symptoms: see above Mode of Arrival: private transportation Primary Care Doctor: Hilda Eden FNP Patient information was obtained from primarily from the patient, History/Exam limitations: none Review of Systems ?? A comprehensive review of systems was completed. All other systems negative except as marked. ?? See HPI for additional ROS Review of Systems Constitutional: Positive for appetite change (decreased). Negative for chills and fever. HENT: Negative for congestion. Respiratory: Negative for cough and shortness of breath. Cardiovascular: Negative for chest pain and leg swelling. Gastrointestinal: Positive for abdominal pain, diarrhea, nausea and vomiting. Endocrine: Negative for polydipsia. Genitourinary: Positive for vaginal bleeding. Negative for dysuria. +recent Musculoskeletal: Negative for myalgias. Skin: Positive for wound (recent ; no complaints). Allergic/Immunologic: Negative for immunocompromised state. Neurological: Positive for light-headedness. Negative for headaches. Relevant Medical History Past Medical History: Patient Past Medical History Diagnosis Date ??? Anxiety Zoloft ??? Bipolar affective disorder ??? Depression bipolar ??? High cholesterol ??? MRSA (methicillin resistant Staphylococcus aureus) 08/2009 cysts on leg, never cultured-told it was staph and was given medication Past Surgical History: Patient Past Surgical History Procedure Laterality Date ??? Hx ear surgery ??? Hx cholecystectomy 02/2010 ??? Pr delivery only 11/21/2010 SECTION performed by KEO JULIEN at [facility] L[facility] ??? Hchg dilitation and curettage 01/14/2014 ??? Pr lap,rmv adnexal structure N/A 08/06/2015 LEFT SALPINGECTOMY LAPAROSCOPIC FOR ECTOPIC performed by Ayde Judge MD at [facility] OR [facility] ??? Hx lymph node dissection 10/2014 armpit ??? Hx dilation and curettage 01/2014 per fertility MD ??? Pr delivery only N/A 09/13/2016 SECTION performed by Keo Julien MD at [facility] L[facility] Family History: Patient's family history includes Diabetes [...] she does not drink alcohol or use illicit drugs. Social History Other Topics Concern ??? [...] (nausea and vomiting) on her problem list. Allergies: Adhesive Home Medications: Patient's Home Medications Current Home Medications DOCUSATE SODIUM (COLACE) 100 MG CAPSULE FERROUS SULFATE 325 MG (65 MG IRON) TABLET IBUPROFEN (MOTRIN) 600 MG TABLET IBUPROFEN (MOTRIN) 600 MG TABLET METFORMIN HCL (METFORMIN ORAL) OXYCODONE (ROXICODONE) 5 MG TABLET VIT-IRON FUMARATE-FA ( VITAMIN) 27-0.8 MG ORAL TAB SERTRALINE (ZOLOFT) 100 MG TABLET Medications Modified during this Encounter Medications Discontinued during this Encounter Objective Physical Exam BP: 130/69 (09/25/162199), Pulse: (not recorded), Resp: 18 (09/25/162199), Temp: 97.9 ??F (36.6 ??C) (09/25/161800), Temp src: Oral (09/25/161800) Physical Exam Constitutional: She is oriented to person, place, and time. She appears well- developed and well-nourished. No distress. HENT: Head: Normocephalic and atraumatic. Right Ear: External ear normal. Left Ear: External ear normal. Eyes: EOM are normal. Pupils are equal, round, and reactive to light. Neck: Normal range of motion. Neck supple. Cardiovascular: Normal rate and regular rhythm. Pulmonary/Chest: Effort normal. No respiratory distress. Abdominal: Soft. There is no tenderness. incision is clean, dry and intact Musculoskeletal: Normal range of motion. She exhibits no edema. Neurological: She is alert and oriented to person, place, and time. She has normal strength. No cranial nerve deficit. Coordination normal. Skin: Skin is warm, dry and intact. Psychiatric: Judgment normal. Nursing note and vitals reviewed. Studies and Interpretation Pulse Oximetry Interpretation: Saturation: SpO2: 98 % (09/25/162199)] Oxygen Delivery: room air Interpretation: No hypoxia at this time. Labs: (Reviewed by myself), Significant for: Labs this ED Encounter CBC WITH DIFFERENTIAL - Abnormal Result Value RBC 3.63 (*) HEMOGLOBIN 10.3 (*) HEMATOCRIT 31.4 (*) PLATELETS 468 (*) MPV 8.4 (*) IMMATURE GRANULOCYTES ABSOLUTE 0.04 (*) WBC 7.9 MCV 86.5 MCH 28.4 MCHC 32.8 RDW 14.2 RDW-STDEV 44.0 NEUTROPHILS 65 LYMPHOCYTES 28 MONOCYTES 6 EOSINOPHILS 1 BASOPHILS 0 IMMATURE GRANULOCYTES 1 NEUTROPHIL ABSOLUTE 5.10 LYMPHOCYTE ABSOLUTE 2.18 MONOCYTE ABSOLUTE 0.44 EOSINOPHIL ABSOLUTE 0.11 BASOPHILS ABSOLUTE 0.03 COMPREHENSIVE METABOLIC PANEL - Abnormal BILIRUBIN TOTAL <0.2 (*) ALKALINE PHOSPHATASE 121 (*) SODIUM 142 POTASSIUM 3.6 CHLORIDE 104 CO2 23 CALCIUM 10.0 BUN 13 CREATININE 0.81 GLUCOSE 87 TOTAL PROTEIN 7.6 ALBUMIN 4.1 AST 21 ALT 26 GFR >60 GFR, >60 ANION GAP 15 URINALYSIS WITH REFLEX CULTURE - Abnormal CLARITY UA Slightly Cloudy (*) LEUKOCYTE ESTERASE UA 2+ (*) PROTEIN UA 1+ (*) BLOOD UA 3+ (*) WBC UA 11-25 (*) RBC UA >100 (*) BACTERIA UA 1+ (*) COLOR UA Yellow SPECIFIC GRAVITY UA 1.019 PH UA 6.0 NITRITE UA Negative GLUCOSE UA Negative KETONES UA Negative UROBILINOGEN UA Normal BILIRUBIN UA Negative EPITHELIAL CELLS, URINE 0-5 Narrative: Based on results, a urine culture has been reflexed. URINE CULTURE EXTRA TUBE Narrative: The following orders were created for panel order EXTRA TUBE. Procedure Abnormality Status --------- ------ EXTRA TUBE (BLUE)[[id number]] Final result Please view results for these tests on the individual orders. EXTRA TUBE (BLUE) EXTRA TUBE Narrative: The following orders were created for panel order EXTRA TUBE. Procedure Abnormality Status --------- ------ EXTRA TUBE (PINK)[[id number]] Final result Please view results for these tests on the individual orders. EXTRA TUBE (PINK) URIC ACID TYPE AND SCREEN ABO GROUP B RH (D) TYPE Positive ANTIBODY SCREEN Negative Imaging (all imaging was independently reviewed by myself): No orders to display Critical Care / Procedures No critical care or procedures performed at this time.?? Medical Decision Making and ED Course ED Course Patient seen and examined by me. Differentials include: post op complications, cramping with normal post op pain, preeclampsia Initial treatment includes: IV fluids, Aurora and Zofran. Will page OB. Hb stable. Abdomen soft, non tender. No diagnostic imaging indicated at this time. 10:18 PM: Spoke with Dr. Julien (OB) agrees with plan. 11:03 PM: Pt has had no vomiting, pain or vaginal bleeding since in ED. Will send home with Zofran and a few Tylenol with Codeine. Spoke with Dr. Julien who agrees. She will follow up with OB. ED provider and ED nurse verbally discussed [...] Medications Administered During the ED Stay from 09/25/2016 1757 to 09/25/2016 2304 Date/Time Order Dose Route Action 09/25/2016 2217 sodium chloride 0.9% bolus solution 1,000 mL 1,000 mL IV New Bag 09/25/2016 2216 ondansetron (ZOFRAN) 4 mg/2 mL injection 4 mg 4 mg IV Given 09/25/20167 HYDROcodone-acetaminophen (NORCO) 5-325 mg per tablet 1 Tablet 1 Tablet Oral Given New Medications . New Prescriptions for this Encounter ACETAMINOPHEN-CODEINE (TYLENOL-CODEINE #3) 300-30 MG TABLET Take 1 Tablet by mouth every 4 hours asneeded for Pain. ONDANSETRON (ZOFRAN) 4 MG TABLET Take 1 Tablet (4 mg) by mouth every 8 hours as needed for Nausea. Final diagnoses: [R11.2] Non-intractable vomiting with nausea, unspecified vomiting type (Primary) [Z98.891] Status post delivery Final Disposition Vitals at Disposition: Visit Vitals ??? BP 130/69 ??? Temp 97.9 ??F (36.6 ??C) (Oral) ??? Resp 18 ??? Ht 5' 6 (1.676 m) ??? Wt 93 kg (205 lb) ??? LMP 06/15/2015 ??? SpO2 98% ??? BMI 33.09 kg/m2 Patient to be discharged in stable Attestation Statement This note has been prepared by Antonia Hinson acting as a scribe for Dr. Karissa Rust on 09/25/2016 at 11:04 PM. The scribe's documentation has been prepared under my direction and personally reviewed by me, Karissa Rust, in its entirety on 09/25/16 at 11:04 PM. I confirm that the note above accurately reflects all work, treatment, procedures, and medical decision making performed by me. Note: This H+P was created with the aid of dictation software, thus there may be some word substitutions or errors. EMS SOFTWARE DEVELOPER documented in this encounter Plan of Treatment Upcoming Encounters Date Type Department Care Team (Late st Contact Info) Description 10/14/2024 11:00 AM SYSTEMS SOFTWARE DEVELOPER Office Visit [facility] Oncology and Hematology - [place] [address] [facility] [address] [place] [address] Ubaldo Cardenas MD [address] [facility] [address] [place] [address] documented as of this encounter Procedures Procedure Name Priority Date/Time Associated Diagnosis Comments TELEMETRY REPORT 09/26/2016 8:58 AM SYSTEMS SOFTWARE DEVELOPER URINALYSIS WITH REFLEX CULTURE Stat 09/25/2016 9:51 PM SYSTEMS SOFTWARE DEVELOPER URINE CULTURE Stat 09/25/2016 9:51 PM SYSTEMS SOFTWARE DEVELOPER EXTRA TUBE (BLUE) Stat 09/25/2016 7:3 8 PM SYSTEMS SOFTWARE DEVELOPER EXTRA TUBE Stat 09/25/2016 7:38 PM SYSTEMS SOFTWARE DEVELOPER EXTRA TUBE Stat 09/25/2016 7:38 PM SYSTEMS SOFTWARE DEVELOPER EXTRA TUBE (PINK) Stat 09/25/2016 7:3 8 PM SYSTEMS SOFTWARE DEVELOPER CBC WITH DIFFERENTIAL Stat 09/25/2016 7:38 PM SYSTEMS SOFTWARE DEVELOPER TYPE AND SCREEN Stat 09/25/2016 7:38 PM SYSTEMS SOFTWARE DEVELOPER URIC ACID Stat 09/25/2016 7:38 PM SYSTEMS SOFTWARE DEVELOPER COMPREHENSIVE METABOLIC PANEL Stat 09/25/2016 7:38 PM SYSTEMS SOFTWARE DEVELOPER EKG 12-LEAD Stat 09/25/2016 6:21 PM SYSTEMS SOFTWARE DEVELOPER documented in this encounter Results * TELEMETRY REPORT (09/26/2016 8:58 AM SYSTEMS SOFTWARE DEVELOPER) Provider Scanning ECG ORDERABLES * URINE CULTURE (09/25/2016 9:51 PM SYSTEMS SOFTWARE DEVELOPER) Pathologist [facility] CULTURE Polymicrobial growth consistent with normal urethral stephanie and/or colonizing bacteria 09/26/2016 8:01 PM [facility] Urine URINE SPECIMEN OBTAINED BY CLEAN CATCH PROCEDURE / Unknown Collection / Unknown 09/25/2016 9:51 PM SYSTEMS SOFTWARE DEVELOPER 09/25/2016 10:04 PM SYSTEMS SOFTWARE DEVELOPER Karissa Rust MD MICROBIOLOGY - [facility] ORDERABLES [facility] [employer] SERVICES [facility]# [id number] [address] [facility] [place] [address] * (ABNORMAL) URINALYSIS WITH REFLEX CULTURE (09/25/2016 9:51 PM SYSTEMS SOFTWARE DEVELOPER) COLOR UA Yellow Pale to Dark Yellow 09/25/2016 10:04 PM [facility]ORAT[facility] SERVICES - [facility] CLARITY UA Slightly Cloudy(A) Clear 09/25/2016 10:04 PM [facility] - [facility] SPECIFIC GRAVITY UA 1.019 09/25/2016 10:04 PM [facility] - [facility] PH UA 6.0 5.0 - 8.0 09/25/2016 10:04 PM [facility] - [facility] LEUKOCYTE ESTERASE UA 2+(A) Negative 09/25/2016 10:04 PM [facility] - [facility] NITRITE UA Negative Negative 09/25/2016 10:04 PM [facility] PROTEIN UA 1+(A) Negative 09/25/2016 10:04 PM [facility] GLUCOSE UA Negative Negative 09/25/2016 10:04 PM [facility] KETONES UA Negative Negative 09/25/2016 10:04 PM [facility] UROBILINOGEN UA Normal <2.0 mg/dL 7 10:04 PM [facility] BILIRUBIN UA Negative Negative 09/25/2016 10:04 PM [facility] BLOOD UA 3+(A) Negative 09/25/2016 10:04 PM [facility] WBC UA 11-25(A) 0 - 2 /hpf 09/25/2016 10:04 PM [facility] RBC UA >100(A) 0 - 2 /hpf 09/25/2016 10:04 PM [facility] BACTERIA UA 1+(A) Negative /hpf 09/25/2016 10:04 PM [facility] EPITHELIAL CELLS, URINE 0-5 0 - 5 /hpf 09/25/2016 10:04 PM [facility] Urine URINE SPECIMEN OBTAINED BY CLEAN CATCH PROCEDURE / Unknown Collection / Unknown 09/25/2016 9:51 PM SYSTEMS SOFTWARE DEVELOPER 09/25/2016 9:55 PM SYSTEMS SOFTWARE DEVELOPER [facility] - 09/25/2016 10:04 PM SYSTEMS SOFTWARE DEVELOPER Based on results, a urine culture has been reflexed. Karissa Rust MD URINE ORDERABLES [facility] CLIA# [id number] [address] [facility] [place] [place] [address] * (ABNORMAL) URIC ACID (09/25/2016 7:38 PM SYSTEMS SOFTWARE DEVELOPER) URIC ACID 6.2(H) 2.4 - 5.7 mg/dL 09/25/2016 11:41 PM [facility] Blood Venipuncture / Unknown 09/25/2016 7:38 PM SYSTEMS SOFTWARE DEVELOPER 09/25/2016 7:45 PM SYSTEMS SOFTWARE DEVELOPER Karissa Rust MD CHEMISTRY ORDERAB LES Performing Organization Address City/[facility]/ZIP Co de Phone Number [facility]# [id number] [address] [place] [address] * EXTRA TUBE (PINK) (09/25/2016 7:38 PM SYSTEMS SOFTWARE DEVELOPER) Blood Venipuncture / Unknown 09/25/2016 7:38 PM SYSTEMS SOFTWARE DEVELOPER 09/25/2016 7:45 PM SYSTEMS SOFTWARE DEVELOPER Karissa Rust MD CHEMISTRY ORDERAB LES Performing Organization Address City/[facility] Co de Phone Number [id number] [address] [place] [address] * EXTRA TUBE (BLUE) (09/25/2016 7:38 PM SYSTEMS SOFTWARE DEVELOPER) Blood Venipuncture / Unknown 09/25/2016 7:38 PM SYSTEMS SOFTWARE DEVELOPER 09/25/2016 7:45 PM SYSTEMS SOFTWARE DEVELOPER Karissa Rust MD HEMATOLOGY ORDERA BLES Performing Organization Address City/[facility] Co de Phone Number [facility] [id number] [facility] [place] [address] [place] [address] * TYPE AND SCREEN (09/25/2016 7:38 PM SYSTEMS SOFTWARE DEVELOPER) ABO GROUP B 09/25/2016 8:27 PM SYSTEMS SOFTWARE DEVELOPER [facility] -- [facility] RH (D) TYPE Positive 09/25/2016 8:27 PM SYSTEMS SOFTWARE DEVELOPER [employer] [facility]ORATORY [facility] -- [facility] ANTIBODY SCREEN Negative 09/25/2016 8:27 PM SYSTEMS SOFTWARE DEVELOPER [facility] SERVICES -- [facility] Blood Venipuncture / Unknown 09/25/2016 7:38 PM SYSTEMS SOFTWARE DEVELOPER 09/25/2016 7:45 PM SYSTEMS SOFTWARE DEVELOPER Karissa Rust MD BLOOD BANK ORDERA BLES [facility] -- [facility] CLIA# [id number] [address] [place] [place] [address] * (ABNORMAL) COMPREHENSIVE METABOLIC PANEL (09/25/2016 7:38 PM SYSTEMS SOFTWARE DEVELOPER) SODIUM 142 136 - 145 mmol/L 09/25/2016 8:40 PM [facility] [employer] [facility] - [facility] POTASSIUM 3.6 3.5 - 5.0 mmol/L 09/25/2016 8:40 PM [facility] [employer] [facility] - [facility] CHLORIDE 104 98 - 107 mmol/L 09/25/2016 8:40 PM SYSTEMS SOFTWARE DEVELOPER [employer] [facility] - [facility] CO2 23 22 - 29 mmol/L 09/25/2016 8:40 PM [facility] [employer] [facility] - [facility] CALCIUM 10.0 8.6 - 10.2 mg/dL 09/25/2016 8:40 PM [facility] [employer] [facility] - [facility] BUN 13 6 - 20 mg/dL 09/25/2016 8:40 PM [facility] [employer] [facility] - [facility] CREATININE 0.81 0.51 - 0.95 mg/dL 09/25/2016 8:40 PM [facility] [employer] [facility] - [facility] GLUCOSE 87 74 - 99 mg/dL 09/25/2016 8:40 PM [facility] [employer] [facility] - [facility] TOTAL PROTEIN 7.6 6.7 - 8.6 g/dL 09/25/2016 8:40 PM [facility] [employer] [facility] - [facility] ALBUMIN 4.1 3.5 - 5.2 g/dL 09/25/2016 8:40 PM [facility] [employer] [facility] - [facility] BILIRUBIN TOTAL <0.2(L) 0.3 - 1.2 mg/dL 09/25/2016 8:40 PM [facility] [employer] [facility] - [facility] ALKALINE PHOSPHATASE 121(H) 35 - 104 U/L 09/25/2016 8:40 PM [facility] [employer] [facility] - [facility] AST 21 <33 U/L 09/25/2016 8:40 PM SYSTEMS SOFTWARE DEVELOPER [employer] [facility] - [facility] ALT 26 <34 U/L 09/25/2016 8:40 PM [facility] [employer] [facility] - [facility] GFR >60 >=60 mL/min/1.7 3 sq meter 09/25/2016 8:40 PM [facility] [employer] [facility] Comment: eGFR has not been validated [...] GFR, >60 >=60 mL/min/1.7 3 sq meter 09/25/2016 8:40 PM [facility] [employer] [facility] ANION GAP 15 8 - 16 mmol/L 09/25/2016 8:40 PM [facility] [employer] [facility] Blood Venipuncture / Unknown 09/25/2016 7:38 PM SYSTEMS SOFTWARE DEVELOPER 09/25/2016 7:45 PM SYSTEMS SOFTWARE DEVELOPER Karissa Rust MD CHEMISTRY ORDERAB LES [facility] [employer] [facility]# [id number] [address] [facility] [place] [address] * (ABNORMAL) CBC WITH DIFFERENTIAL (09/25/2016 7:38 PM SYSTEMS SOFTWARE DEVELOPER) WBC 7.9 4.0 - 9.8 K/uL 09/25/2016 7:51 PM [facility] [employer] [facility] RBC 3.63(L) 3.90 - 4.90 M/uL 09/25/2016 7:51 PM [facility] [employer] [facility] HEMOGLOBIN 10.3(L) 11.8 - 14.8 g/dL 09/25/2016 7:51 PM [facility] [employer] [facility] HEMATOCRIT 31.4(L) 35.5 - 44.0 % 09/25/2016 7:51 PM [facility] [employer] [facility] MCV 86.5 82.0 - 99.0 fL 09/25/2016 7:51 PM SYSTEMS SOFTWARE DEVELOPER [facility] SERVICES - [facility] MCH 28.4 27.2 - 32.6 pg 09/25/2016 7:51 PM SYSTEMS SOFTWARE DEVELOPER [facility] SERVICES - . [facility] MCHC 32.8 31.5 - 35.5 g/dL 09/25/2016 7:51 PM SYSTEMS SOFTWARE DEVELOPER [employer] - . [facility] RDW 14.2 11.5 - 14.5 % 09/25/2016 7:51 PM SYSTEMS SOFTWARE DEVELOPER [facility] SERVICES - . [facility] RDW-STDEV 44.0 37.1 - 48.7 fL 09/25/2016 7:51 PM SYSTEMS SOFTWARE DEVELOPER [employer] SERVICES - [facility] PLATELETS 468(H) 140 - 350 K/uL 09/25/2016 7:51 PM [employer] - . [facility] MPV 8.4(L) 9.3 - 12.4 fL 09/25/2016 7:51 PM [facility] - . [facility] NEUTROPHILS 65 % 09/25/2016 7:51 PM [facility] - [facility] LYMPHOCYTES 28 % 09/25/2016 7:51 PM [facility] - [facility] MONOCYTES 6 % 09/25/2016 7:51 PM [facility] - [facility] EOSINOPHILS 1 % 09/25/2016 7:51 PM [facility] - [facility] BASOPHILS 0 % 09/25/2016 7:51 PM [facility] - [facility] IMMATURE GRANULOCYTES 1 % 09/25/2016 7:51 PM [facility] - [facility] Comment:IG (Immature Granulo cyte) count includes Metamyelocytes, Myelocytes, and Promyelocytes NEUTROPHIL ABSOLUTE 5.10 1.90 - 7.00 K/uL 09/25/2016 7:51 PM SYSTEMS SOFTWARE DEVELOPER [facility] LYMPHOCYTE ABSOLUTE 2.18 0.70 - 4.50 K/uL 09/25/2016 7:51 PM SYSTEMS SOFTWARE DEVELOPER [facility] MONOCYTE ABSOLUTE 0.44 0.10 - 1.30 K/uL 09/25/2016 7:51 PM SYSTEMS SOFTWARE DEVELOPER [facility] EOSINOPHIL ABSOLUTE 0.11 0.00 - 0.70 K/uL 09/25/2016 7:51 PM SYSTEMS SOFTWARE DEVELOPER [facility] BASOPHILS ABSOLUTE 0.03 0.00 - 0.20 K/uL 09/25/2016 7:51 PM SYSTEMS SOFTWARE DEVELOPER [facility] IMMATURE GRANULOCYTES ABSOLUTE 0.04(H) 0.00 - 0.03 K/uL 09/25/2016 7:51 PM SYSTEMS SOFTWARE DEVELOPER [facility] Blood Venipuncture / Unknown 09/25/2016 7:38 PM SYSTEMS SOFTWARE DEVELOPER 09/25/2016 7:45 PM SYSTEMS SOFTWARE DEVELOPER Karissa Rust MD HEMATOLOGY [facility] CLIA# [id number] [address] [place] [address] * EKG 12-LEAD (09/25/2016 6:21 PM SYSTEMS SOFTWARE DEVELOPER) 09/25/2016 6:21 PM SYSTEMS SOFTWARE DEVELOPER Narrative INTERFACE SYSTEM - 09/26/2016 7:12 AM SYSTEMS SOFTWARE DEVELOPER ? Stationary ECG Study ? [facility] ? Test Date: ?09/25/2016 6:21 PM Pat Name: ? VERA VITALE ?Department: ?? 15 ?Room: ? Gender: ? F ?Citizenship Teacher: ?? scotvm : ?1985 ? Requested By: ?? Order Number: [id number] ?Reading : ?? Wilian Narayan ? Measurements Intervals ?[place] ? Rate: ? 71 ? P: ?47 [place]: ? 129 ?QRS: ?52 QRSD: ? 84 ? T: ?47 QT: ? 356 ? QTc: ?387 ? Interpretive Statements ? SINUS RHYTHM WITH SINUS ARRHYTHMIA Electronically Signed On 09-26-2016 7:12:15 SYSTEMS SOFTWARE DEVELOPER by Wilian Narayan Procedure Note Wilain Narayan MD - 10/19/2021 Stationary ECG Study [facility] Test Date: 09/25/2016 6:21 PM Pat Name: VERA VITALE Department: 15 Room: Gender: F Citizenship Teacher: formerly [facility] : 1985 Requested By: Order Number: [id number] Reading RODERICK Narayan Measurements Intervals [place] Rate: 71 P: 47 [place]: 129 QRS: 52 QRSD: 84 T: 47 QT: 356 QTc: 387 Interpretive Statements SINUS RHYTHM WITH SINUS ARRHYTHMIA Electronically Signed On 09-26-2016 7:12:15 SYSTEMS SOFTWARE DEVELOPER by Wilian Narayan Karissa Rust MD ECG ORDERABLES INTERFACE SYSTEM Refer to clinic/hospital department documented in this encounter Visit Diagnoses Diagnosis Non-intractable vomiting with nausea, unspecified vomiting type- Primary Status post delivery Other postprocedural status documented in this encounter Administered Medications Inactive Administered Medications - up to 3 most recent administrations Medication Order MAR Action Action Date Dose Rate Site HYDROcodone-acetaminophen (NORCO) 5-325 mg per tablet 1 Tablet 1 Tablet, Oral, ONE TIME ONLY, 1 dose, On Sun09/25/16 at 2215, Routine Given 09/25/2016 10:17 PM SYSTEMS SOFTWARE DEVELOPER 1 Tablet ondansetron (ZOFRAN) 4 mg/2 mL injection 4 mg 4 mg, IV, ONE TIME ONLY, 1 dose, On Sun09/25/16 at 2215, Routine Given 09/25/2016 10:16 PM SYSTEMS SOFTWARE DEVELOPER 4 mg sodium chloride 0.9% bolus solution 1,000 mL 1,000 mL, IV, ONE TIME ONLY, 1 dose, On Sun09/25/16 at 2215, at 2,000 mL/hr, Administer over 30 Minutes, Routine New Bag 09/25/2016 10:17 PM SYSTEMS SOFTWARE DEVELOPER 1,000 mL 2000 mL/hr documented in this encounter Active and Recently Administered Medications Times are shown in SYSTEMS SOFTWARE DEVELOPER. Scheduled Medication Order 09/23/2016 09/24/2016 09/25/2016 HYDROcodone-acetaminophen (NORCO) 5-325 mg per tablet 1 Tablet (COMPLETED) 1 Tablet, Oral, ONE TIME ONLY, 1 dose, On Sun09/25/16 at 2215, Routine 2217 (Given - Provid er: Carmen Donovan RN) ondansetron (ZOFRAN) 4 mg/2 mL injection 4 mg (COMPLETED) 4 mg, IV, ONE TIME ONLY, 1 dose, On Sun09/25/16 at 2215, Routine 2216 (Given - Provid er: Carmen Donovan RN) sodium chloride 0.9% bolus solution 1,000 mL (COMPLETED) 1,000 mL, IV, ONE TIME ONLY, 1 dose, On Sun09/25/16 at 2215, at 2,000 mL/hr, Administer over 30 Minutes, Routine 2217 (New Bag - Prov ider: Carmen Donovan, JACK)[id number] (Stopped - Provider: Carmen Donovan RN) documented in this encounter Care Teams Reception Interviewer Relationship Specialty Start Date End Date Hilda Eden FNP [address] [place] [id number] PCP - General NURSE PRACTITIONER 07/13/13 01/05/18 documented as of this encounter
--- OUTSIDE RECORDS SUMMARY | 2024-08-03 01:41 | XMS_ITS | Encounter Summary ---
Author Organization [employer] Address [address] [place] [address] Care Team Providers Care Biomedical Scientist Name Role Phone Hilda Eden SHOWROOM SALES CONSULTANT Primary Care Provider [phone] Reason for Referral * Outpatient Services (Routine) - Closed Specialty Diagnoses / Procedures Referred By Reva holbrook Referred To Contact Diagnoses Maternal morbid obesity in second trimester, antepartum Morbid obesity, unspecified obesity type care of habitual aborter in second trimester Maternal care due to low transverse uterine scar from previous delivery Supervision of with history of pre-term labor in second trimester with mental disorders, second trimester Procedures US OB FOLLOW UP PER FETUS Kaden Fisher MD [address] [address] Referral ID Status Reason Start Date Expiration Date Visits Re quested Visits Authorized [id number] Closed 06/27/2016 07/28/2017 1 1 TRONIC SALES AND SERVICE TECHNICIAN Reason for Visit * Outpatient Services (Routine) - Closed Specialty Diagnoses / Procedures Referred By Reva holbrook Referred To Contact Diagnoses Maternal morbid obesity in second trimester, antepartum Morbid obesity, unspecified obesity type care of habitual aborter in second trimester Maternal care due to low transverse uterine scar from previous delivery Supervision of with history of pre-term labor in second trimester with mental disorders, second trimester Procedures US OB FOLLOW UP PER FETUS Kaden Fisher MD [address] [place] [address] Referral ID Status Reason Start Date Expiration Date Visits Re quested Visits Authorized [id number] Closed 06/27/2016 07/28/2017 1 1 Encounter Details Date Type Department Care Team (Latest Contact Info) Description 07/25/2016 9:45 AM ELECTRONIC SALES AND SERVICE TECHNICIAN - 07/25/2016 11:59 PM [facility] Hospital Encounter [facility] [address] [place] [phone] Kaden Fisher MD [address] [facility] [place] [address] Discharge Disposition: Home or Self Care Social History Tobacco Use Types Packs/Day Years Used Date Smoking Tobacco: Every Day Cigarettes 0.5 10 Smokeless Tobacco: Never Alcohol Use Standard Drinks/Week Comments No 0 (1 standard drink = 0.6 oz pur e alcohol) Comments Yes Sex and Gender Information Value Date Recorded Sex Assigned at Not on file Gender Identity Not on file Sexual Orientation Not on file documented as of this encounter Medications at Time of Discharge Medication Sig Dispensed Refills Start Date End Date aspirin (KESHA CHEWABLE) 81 mg Tablet, Chewable Take 81 mg by mouth daily. 09/15/2016 DIPHENHYDRAMINE HCL (UNISOM, DIPHENHYDRAMINE, ORAL) Take by mouth. 10/2016 ondansetron (ZOFRAN ODT) 4 mg Tablet, Rapid Dissolve Take 1 Tablet (4 mg) by mouth every 8 hours as needed for Nausea/Emesis Dissolve tablet on top of tongue, then swallow with saliva.. 9 Tablet 1 07/24/2016 09/15/2016 sertraline (ZOLOFT) 50 mg tablet Take 50 mg by mouth daily. 09/15/2016 metFORMIN (GLUCOPHAGE) 500 mg tablet Take 500 mg by mouth 2 times daily with meals. 08/26/2016 L-methylfolate (DEPLIN) 15 mg Tablet Take 25 mg by mouth daily. 09/15/2016 docusate sodium (COLACE) 100 mg capsule Take 1 Capsule (100 mg) by mouth 2 times daily. 60 Capsule 0 08/07/2015 09/15/2016 CYANOCOBALAMIN/FA/PYRI DOXINE (FABB ORAL) Take by mouth daily. 0 09/15/2016 vit-iron fumarate-FA ( VITAMIN) 27-0.8 mg Oral Tab Take 1 Tab by mouth daily. 02/03/2017 documented as of this encounter Plan of Treatment Upcoming Encounters Date Type Department Care Team (Late st Contact Info) Description 10/14/2024 11:00 AM ELECTRONIC SALES AND SERVICE TECHNICIAN Office Visit [facility] Oncology and Hematology - [place] [address] [facility] [address] [place] [address] Ubaldo Cardenas MD [address] [facility] [address] [place] [address] documented as of this encounter Procedures Procedure Name Priority Date/Time Associated Diagnosis Comments US OB FOLLOW UP PER FETUS Routine 07/25/2016 10:24 AM ELECTRONIC SALES AND SERVICE TECHNICIAN Maternal morbid obesity in second trimester, antepartum Morbid obesity, unspecified obesity type care of habitual aborter in second trimester Maternal care due to low transverse uterine scar from previous delivery Supervision of with history of pre-term labor in second trimester with mental disorders, second trimester documented in this encounter Results * US OB FOLLOW UP PER FETUS (07/25/2016 10:24 AM ELECTRONIC SALES AND SERVICE TECHNICIAN) Anatomical Region Laterality Modality Pelvis Ultrasound 07/25/2016 9:55 AM ELECTRONIC SALES AND SERVICE TECHNICIAN Impressions 07/25/2016 10:27 AM ELECTRONIC SALES AND SERVICE TECHNICIAN IMPRESSION ----- Viable IUP, today's biometry is consistent with the stated GA of 29 weeks 3 days, and EDC of 10/07/16. The EFW of 1418 gms is at the 54th percentile. No abnormalities are seen. Normal amniotic fluid. Narrative 07/25/2016 10:27 AM ELECTRONIC SALES AND SERVICE TECHNICIAN Follow Up Basic ----- Pat. Name: VERA PARKER Study Date: 07/25/2016 9:55am Pat. 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 @ 35weeks due to pre-eclampsia Maternal Obesity (bmi>40) Maternal Mental Disorder ? Anxiety/Depression CODING ----- Diagnosis ? O26.23: care for patient with recurrent loss. ?O34.21: Maternal care for scar from previous delivery. ?O09.213: Supervision of with history of pre-term labor. ?O99.213: Obesity complicating . ?E66.01: Morbid (severe) obesity due to excess calories. ?O99.343: Other mental disorders complicating . ?Z3A.29: Weeks Gestation of . Procedures ?05595: OB follow-up/Target per fetus. HISTORY ----- OB History ?: 12. Para: 1. ?A10L1. ?Miscarriages: 9. Ectopic: 1. MATERNAL ASSESSMENT ----- Physical Exam ? Weight 107 kg. BMI 38.19 kg/m?. METHOD ----- Transabdominal ultrasound examination. ----- Easley . Number of fetuses: 1. DATING ----- GA by stated dating 29 w + 3 d MINDY by stated dating : 10/07/2016 Ultrasound examination on: 07/25/2016 GA by U/S based upon: AC, BPD, Femur, HC GA by U/S 29 w + 5 d MINDY by U/S: 10/05/2016 Assigned: Dating performed on 07/25/2016, based on the stated dating Assigned GA 29 w + 3 d Assigned MINDY: 10/07/2016 BIOMETRY ----- Main Biometry: BPD ?73.2 ? mm ?36% ? 29w 3d ? Hadlock HC ? 277.7 ?mm ?43% ? 30w 3d ? Hadlock AC ? 254.7 ?mm ?51% ? 29w 5d ? Hadlock Femur ?55.6 ? mm ?31% ? 29w 2d ? Hadlock Weight Calculation: EFW ?1,418 ?g ? 54% ?Terell EFW (lb,oz) ?3 lb 2 ? oz Calculated by ?Hadlock ([id number]) Proportionality Ratios: HC / AC ?1.09 ? 53% ?Nicolaides FL / BPD ? 0.76 ? FL / AC ?0.22 ? Amniotic Fluid / FHR: AF MVP ? 8.1 ?cm ? NATHAN ?22.3 ? cm ?93% ?Carrizales FHR ?144 ?bpm ? GENERAL EVALUATION ----- Cardiac activity: present. FHR 144 bpm. Presentation: cephalic. Placenta: posterior. Umbilical cord: 3 vessel cord. Amniotic fluid: subjectively high. NATHAN 22.3 cm. Q1 3.2 cm, Q2 4.2 cm, Q3 8.1 cm, Q4 6.9 cm. ANATOMY ----- The following structures were visualized with normal appearance: Head ?Head shape and size appear normal. Thorax ?Diaphragm. Heart ? Four chamber view of the heart and outflow tracts appear normal. Stomach ? Stomach size and situs appear normal. Kidneys ? Kidneys appear normal bilaterally. Bladder ? size and shape. Lower extrem. ? Both lower extremities are seen and appear normal. The following structures could not be visualized: Spine ? Lumbar spine. Sacral spine. Upper extrem. ? Right hand. Left hand. Other findings: Spine ? previously seen. Abdominal wall ?Umbilical cord insertion site: previously seen. Upper extrem. ? previously seen. Procedure Note Carolina Cortez MD - 07/25/2016 Follow Up Basic ----- Pat. Name:Michael PARKER Date:07/25/2016 9:55am Pat. NO: [id number] MD:JERICA JULIEN MD [facility] Care[facility]:Angela Curtis RDMS :1985Age:31 ----- INDICATION ----- Recurrent loss, Antepartum x10 Previous History of PTD @ 35weeks due topre-eclampsia Maternal Obesity (bmi>40) Maternal Mental Disorder Anxiety/Depression CODING ----- Diagnosis O26.23: care for patient with recurrentpregnancy loss. O34.21: Maternal care for scar from previouscesarean delivery. O09.213: Supervision of with history ofpre-term labor. O99.213: Obesity complicating . E66.01: Morbid (severe) obesity due to excesscalories. O99.343: Other mental disorders complicatingpregnancy. Z3A.29: Weeks Gestation of . Procedures 88894: OB follow-up/Target per fetus. HISTORY ----- OB History : 12. Para: 1. A10L1. Miscarriages: 9. Ectopic: 1. MATERNAL ASSESSMENT ----- Physical Exam Weight 107 kg. BMI 38.19 kg/m?. METHOD ----- Transabdominal ultrasound examination. ----- Easley . Number of fetuses: 1. DATING ----- GA by stated dating 29 w + 3 d MINDY by stated dating :10/07/2016 Ultrasound examination on:07/25/2016 GA by U/S based upon:AC, BPD, Femur, HC GA by U/S29 w + 5 d MINDY by U/S:10/05/2016 Assigned:Dating performed on 07/25/2016, based on the stated dating Assigned GA29 w + 3 d Assigned MINDY:10/07/2016 BIOMETRY ----- Main Biometry: BPD 73.2 mm 36% 29w 3dHadlock HC 277.7 mm 43% 30w 3dHadlock AC 254.7 mm 51% 29w 5dHadlock Femur 55.6 mm 31% 29w 2dHadlock Weight Calculation: EFW 1,418 g 54%Terell EFW (lb,oz) 3 lb 2 oz Calculated by Arun ([id number]) Proportionality Ratios: HC / AC 1.09 53%Nicolaides FL / BPD 0.76 FL / AC 0.22 Amniotic Fluid / FHR: AF MVP 8.1 cm NATHAN 22.3 cm 93%Carrizales FHR 144 bpm GENERAL EVALUATION ----- Cardiac activity: present. FHR 144 bpm. Presentation: cephalic. Placenta: posterior. Umbilical cord: 3 vessel cord. Amniotic fluid: subjectively high. NATHAN 22.3 cm. Q1 3.2 cm, Q2 4.2 cm, Q38.1 cm, Q4 6.9 cm. ANATOMY ----- The following structures were visualized with normal appearance: Head Head shape and size appear normal. Thorax Diaphragm. Heart Four chamber view of the heart and outflow tractsappear normal. Stomach Stomach size and situs appear normal. Kidneys Kidneys appear normal bilaterally. Bladder size and shape. Lower extrem. Both lower extremities are seen and appearnormal. The following structures could not be visualized: Spine Lumbar spine. Sacral spine. Upper extrem. Right hand. Left hand. Other findings: Spine previously seen. Abdominal wall Umbilical cord insertion site: previously seen. Upper extrem. previously seen. IMPRESSION IMPRESSION ----- Viable IUP, today's biometry is consistent with the stated GA of 29 weeks3 days, and EDC of 10/07/16. The EFW of 1418 gms is at the 54th percentile. No abnormalities are seen. Normal amniotic fluid. Kaden Fisher MD ORDERABLES documented in this encounter Visit Diagnoses Diagnosis Maternal morbid obesity in second trimester, antepartum Morbid obesity, unspecified obesity type care of habitual aborter in second trimester Recurrent loss, antepartum condition or complication Maternal care due to low transverse uterine scar from previous delivery Supervision of with history of pre-term labor in second trimester with history of pre-term labor with mental disorders, second trimester documented in this encounter Care Teams Biomedical Scientist Relationship Specialty Start Date End Date Hilda Eden FNP [address] [place] [phone] PCP - General NURSE PRACTITIONER 07/13/13 01/05/18 documented as of this encounter
--- OUTSIDE RECORDS SUMMARY | 2024-08-03 01:41 | XMS_ITS | Encounter Summary ---
Author Organization [employer] Address [address] [place] [address] Care Team Providers Care Geological Drafter Name Role Phone Hilda Eden RADHA Primary Care Provider [phone] Reason for Referral * Outpatient Services (Routine) - Closed Specialty Diagnoses / Procedures Referred By Reva holbrook Referred To Contact Diagnoses Recurrent loss (CODE) Procedures [place] [address] [place] [address] Referral ID Status Reason Start Date Expiration Date Visits Re quested Visits Authorized [id number] Closed 09/04/2016 10/05/2017 1 1 SEAMER Reason for Visit * Outpatient Services (Routine) - Closed Specialty Diagnoses / Procedures Referred By Reva holbrook Referred To Contact Diagnoses Recurrent loss (CODE) [place] [address] [place] [address] Referral ID Status Reason Start Date Expiration Date Visits Re quested Visits Authorized [id number] Closed 09/04/2016 10/05/2017 1 1 Encounter Details Date Type Department Care Team (Latest Contact Info) Description 09/04/2016 2:30 PM SOLE SEAMER - 09/04/2016 11:59 PM SOLE SEAMER Hospital Encounter [facility] and Ground Floor [address] [facility] [address] [place] [address] [place] [address] [place] [address] Discharge Disposition: Home or Self Care Social [...] Sig Dispensed Refills Start Date End Date oxyCODONE (ROXICODONE) 5 mg tablet Take 1 [...] at bedtime. 30 Tablet 1 09/15/2016 02/04/2017 cetirizine (ZyrTEC) 10 mg tablet Take 10 mg by mouth daily. 09/15/2016 raNITIdine (ZANTAC) 75 mg Tablet Take 75 mg by mouth 2 times daily. 09/15/2016 metFORMIN (GLUCOPHAGE) 500 mg tablet Take 500 mg by mouth 2 times daily with meals. 09/15/2016 S-Adenosylmethionine (christa-e) 200 mg Tablet Take by mouth. 10/2016 metoclopramide HCl (REGLAN) 10 mg tablet Take 10 mg by mouth 4 times daily before meals and at bedtime. 09/15/2016 diphenhydrAMINE (BENADRYL) 50 mg Tablet Take 50 mg by mouth every 6 hours as needed for Itching. 09/15/2016 ursodiol (ACTIGALL) 300 mg capsule Take 1 Capsule (300 mg) by mouth 2 times daily. 60 Capsule 1 08/26/2016 09/15/2016 methylPREDNISolone (MEDROL DOSPACK) 4 mg Tablets, Dose [...] Day 6: (1) before breakfast. 21 Tablet 08/26/2016 09/15/2016 aspirin (KESHA CHEWABLE) 81 mg Tablet, Chewable [...] Take 50 mg by mouth daily. 09/15/2016 L-methylfolate (DEPLIN) 15 mg Tablet Take 25 [...] st Contact Info) Description 10/14/2024 11:00 AM SOLE SEAMER Office Visit [facility] Oncology and Hematology - Alir[place] [address] [place] [address] Ubaldo Cardenas MD [address] [facility] [address] [place] [address] documented as of this encounter Procedures Procedure Name Priority Date/Time Associated Diagnosis Comments US BIOPHYSICAL PROF Dionicio SIMMONS Routine 09/04/2016 4:08 PM SOLE SEAMER Recurrent loss (CODE) documented in this encounter Results * US BIOPHYSICAL PROF Dionicio SIMMONS (09/04/2016 4:08 PM SOLE SEAMER) Anatomical Region Laterality Modality Pelvis Ultrasound 09/04/2016 2:59 PM SOLE SEAMER Impressions 09/04/2016 6:15 PM SOLE SEAMER IMPRESSION ----- Here today for repeat BPP due to 01/20 (-2 NRNST/-2 breathing) this morning. She is reporting good movements at this time. Reassuring fetasl status with repeat BPP 05/22 this afternoon. NATHAN normal 12.6 cm MVP 4.0 cm. The above was discussed with Ms. Parker and her who understood. All questions were answered. They were reassured. S/s of PTL and kick counts were reviewed and she was instructed when to follow up with L&D. Narrative 09/04/2016 6:15 PM SOLE SEAMER BPP with NST Study ----- Pat. Name: VERA PARKER Study Date: 09/04/2016 2:59pm Pat. NO: [id number] Referring ??MD: KEO JULIEN MD Site: [facility] Process Controls Technician: : 1985 Age: 31 ----- INDICATION ----- Recurrent loss w/o ? x 10 Previous History of PTD ? @35wks due to Pre-eclampsia Maternal Obesity (bmi>40) Maternal Mental Disorder ? Anxiety/Depression CODING ----- Diagnosis ? O26.23: care for patient with recurrent loss. ?O34.21: Maternal care for scar from previous delivery. ?O09.213: Supervision of with history of pre-term labor. ?O99.213: Obesity complicating . ?E66.01: Morbid (severe) obesity due to excess calories. ?O99.343: Other mental disorders complicating . ?Z3A.35: Weeks Gestation of . Procedures ?08587: BPP with NST. HISTORY ----- OB History ?: 12. Para: 1. ?A10L1. ?Miscarriages: 9. Ectopic: 1. Medication ?Ursodiol : 300mg TID. MATERNAL ASSESSMENT ----- Physical Exam ? Weight 105 kg. BMI 37.20 kg/m?. Blood pressure 123 / 79 mmHg. Heart rate 101 bpm. METHOD ----- EFM, Transabdominal ultrasound examination. Good view. ----- [place] . Number of fetuses: 1. DATING ----- GA by stated dating 35 w + 2 d MINDY by stated dating : 10/07/2016 Assigned: Dating performed on 09/04/2016, based on the stated dating Assigned GA 35 w + 2 d Assigned MINDY: 10/07/2016 GENERAL EVALUATION ----- Cardiac activity: present. movements: visualized. Presentation: cephalic. NON STRESS TEST ----- Reactive FHR: 2 - yes, yes. Baseline rate 135 bpm. Duration 30 min. Acceleration: 15 bpm for 15 sec. Deceleration: Not present. Uterine activity: absent. Variability: moderate (6-25 bpm). AMNIOTIC FLUID ASSESSMENT ----- MVP 4.0 cm. NATHAN 12.6 cm. Q1 3.7 cm, Q2 3.5 cm, Q3 1.4 cm, Q4 4.0 cm. BIOPHYSICAL PROFILE ----- Qualitative AFV: 2. breathing movements: 2. Gross body movements: 2. tone: 2. Biophysical profile score: . COMMENT ----- Nursing notes: Patient states fetus is active. Patient denies vaginal bleeding or leaking of amniotic fluid. DFMR instructions given to patient. Dr. Lin discussed POC with patient. Patient scheduled twice week . FOLLOW-UP ----- To continue with 2x/wk testing. Thank you for allowing us to partake in your patient's care. Procedure Note Russell Lin DO - 09/04/2016 BPP with NST Study ----- Pat. Name:Michael PARKER Date:09/04/2016 2:59pm Pat. NO: [id number] MD:KEO JULIEN MD [facility]1985Age:31 ----- INDICATION ----- Recurrent loss w/o x 10 Previous History of PTD @35wks due toPre-eclampsia Maternal Obesity (bmi>40) Maternal Mental Disorder Anxiety/Depression CODING ----- Diagnosis O26.23: care for patient with recurrentpregnancy loss. O34.21: Maternal care for scar from previouscesarean delivery. O09.213: Supervision of with history ofpre-term labor. O99.213: Obesity complicating . E66.01: Morbid (severe) obesity due to excesscalories. O99.343: Other mental disorders complicatingpregnancy. Z3A.35: Weeks Gestation of . Procedures 46588: BPP with NST. HISTORY ----- OB History : 12. Para: 1. A10L1. Miscarriages: 9. Ectopic: 1. Medication Ursodiol : 300mg TID. MATERNAL ASSESSMENT ----- Physical Exam Weight 105 kg. BMI 37.20 kg/m?. Blood pressure 123/ 79 mmHg. Heart rate 101 bpm. METHOD ----- EFM, Transabdominal ultrasound examination. Good view. ----- Easley . Number of fetuses: 1. DATING ----- GA by stated dating 35 w + 2 d MINDY by stated dating :10/07/2016 Assigned:Dating performed on 09/04/2016, based on the stated dating Assigned GA35 w + 2 d Assigned MINDY:10/07/2016 GENERAL EVALUATION ----- Cardiac activity: present. movements: visualized. Presentation: cephalic. NON STRESS TEST ----- Reactive FHR: 2 - yes, yes. Baseline rate 135 bpm. Duration 30 min.Acceleration: 15 bpm for 15 sec. Deceleration: Not present. Uterine activity: absent. Variability: moderate (6-25 bpm). AMNIOTIC FLUID ASSESSMENT ----- MVP 4.0 cm. NATHAN 12.6 cm. Q1 3.7 cm, Q2 3.5 cm, Q3 1.4 cm, Q4 4.0 cm. BIOPHYSICAL PROFILE ----- Qualitative AFV: 2. breathing movements: 2. Gross body movements: 2. tone: 2. Biophysical profile score: 10 / 10. COMMENT ----- Nursing notes: Patient states fetus is active. Patient denies vaginalbleeding or leaking of amniotic fluid. DFMR instructions given to patient. Dr. Lin discussed POC with patient. Patientscheduled twice week . FOLLOW-UP ----- To continue with 2x/wk testing. Thank you for allowing us to partake in your patient's care. IMPRESSION IMPRESSION ----- Here today for repeat BPP due to 01/20 (-2 NRNST/-2 breathing) thismorning. She is reporting good movements at this time. Reassuring fetasl status with repeat BPP 05/22 this afternoon. NATHAN .6 cm MVP 4.0 cm. The above was discussed with Ms. Parker and her who understood.All questions were answered. They were reassured. S/s of PTL and kick counts were reviewed and she was instructed whento follow up with L&D. Keo Julien MD ORDERABLES documented in this encounter Visit Diagnoses Diagnosis Recurrent loss (CODE) documented in this encounter Care Teams Geological Drafter Relationship Specialty Start Date End Date Hilda Eden FNP [address] [place] [address] PCP - General NURSE PRACTITIONER 07/13/13 01/05/18 documented as of this encounter
--- OUTSIDE RECORDS SUMMARY | 2024-08-03 01:41 | XMS_ITS | Encounter Summary ---
Author Organization [employer] Address [address] [place] [address] Care Team Providers Care Electrician Front Name Role Phone Hilda Eden RADHA Primary Care Provider [phone] Reason for Visit * Auth/Cert Specialty Diagnoses / Procedures Referred By Reva holbrook Referred To Contact Laboratory [facility] [place] [facility] [address] [place] [address] Referral ID Status Reason Start Date Expiration Date Visits Re quested Visits Authorized [id number] 1 1 Encounter Details Date Type Department Care Team (Latest Contact Info) Description 09/06/2016 9:40 AM IT SERVICE TECHNICIAN - 09/06/2016 11:59 PM [facility] Hospital Encounter [facility] Laboratory Services [facility] [place] [facility] [address] [place] [address] [place] [address] [place] [address] Discharge Disposition: Home or Self Care Social [...] st Contact Info) Description 10/14/2024 11:00 AM IT SERVICE TECHNICIAN Office Visit [facility]3] Oncology and Hematology - Alirio [address] [facility] [address] [place] [address] Ubaldo Cardenas MD [address] [facility] [address] [place] [address] documented as of this encounter Procedures Procedure Name Priority Date/Time Associated Diagnosis Comments BILE ACIDS FRACTIONATED AND TOTAL Routine 09/06/2016 9:58 AM IT SERVICE TECHNICIAN Unknown cause of injury CBC WITH DIFFERENTIAL Routine 09/06/2016 9:58 AM IT SERVICE TECHNICIAN Unknown cause of injury COMPREHENSIVE METABOLIC PANEL Routine 09/06/2016 9:58 AM IT SERVICE TECHNICIAN Unknown cause of injury documented in this encounter Results * (ABNORMAL) BILE ACIDS FRACTIONATED AND TOTAL (09/06/2016 9:58 AM IT SERVICE TECHNICIAN) CHOLIC ACID 2.38 <=5.00 nmol/mL 09/11/2016 12:05 PM [facility] [place] [place] CHENODEOXYCHOLIC ACID 1.90 <=6.00 nmol/mL 09/11/2016 12:05 PM [facility] [place] [place] DEOXYCHOLIC ACID 2.63 <=6.00 nmol/mL 09/11/2016 12:05 PM [facility] [place] [place] URSODEOXYCHOLIC ACID 6.70(H) <=2.00 nmol/mL 09/11/2016 12:05 PM [facility] [place] [place] BILE ACIDS, TOTAL 13.61 <=19.00 nmol/mL 09/11/2016 12:05 PM [facility] [place] [place] Comment: ADDITIONAL INFORMATION This test was developed and its performance characteristics determined by [facility] in a manner consistent with CLIA requirements. This test has not been cleared or approved by the U.S. Food and Drug Administration. Test Performed by: [place] [address] Yarder Puncher: Rachid Hanley II, M.D., Ph.D. Blood Venipuncture / Unknown 09/06/2016 9:58 AM IT SERVICE TECHNICIAN 09/06/2016 10:16 AM [facility] Keo Meza MD CHEMISTRY ORDERABLES [facility] * (ABNORMAL) COMPREHENSIVE METABOLIC PANEL (09/06/2016 9:58 AM [facility]) SODIUM 136 136 - 145 mmol/L 09/06/2016 11:04 AM [facility] - [facility] POTASSIUM 3.4(L) 3.5 - 5.0 mmol/L 09/06/2016 11:04 AM [facility] [employer] LABORATORY SERVICES - [facility] CHLORIDE 102 98 - 107 mmol/L 09/06/2016 11:04 AM [facility] [employer] [facility] CO2 18(L) 22 - 29 mmol/L 09/06/2016 11:04 AM IT SERVICE TECHNICIAN [facility] - [facility] CALCIUM 9.3 8.6 - 10.2 mg/dL 09/06/2016 11:04 AM [facility] [employer] LABORATORY SERVICES - [facility] BUN 5(L) 6 - 20 mg/dL 09/06/2016 11:04 AM [facility] [employer] [facility]ATORY [facility] - [facility] CREATININE 0.48(L) 0.51 - 0.95 mg/dL 09/06/2016 11:04 AM [facility] [employer] LABORATORY SERVICES - [facility] GLUCOSE 85 74 - 99 mg/dL 09/06/2016 11:04 AM [facility] [employer] LABORATORY SERVICES - [facility] TOTAL PROTEIN 7.0 6.7 - 8.6 g/dL 09/06/2016 11:04 AM [employer] SERVICES - [facility] ALBUMIN 3.6 3.5 - 5.2 g/dL 09/06/2016 11:04 AM [facility] [employer] LABORATORY SERVICES - . [facility] BILIRUBIN TOTAL 0.2(L) 0.3 - 1.2 mg/dL 09/06/2016 11:04 AM IT SERVICE TECHNICIAN [employer] LABORATORY SERVICES - . [facility] ALKALINE PHOSPHATASE 182(H) 35 - 104 U/L 09/06/2016 11:04 AM IT SERVICE TECHNICIAN [employer] [facility] [facility] - . [facility] AST 26 <33 U/L 09/06/2016 11:04 AM [employer] [facility] - . [facility] ALT 52(H) <34 U/L 09/06/2016 11:04 AM [employer] [facility] GFR >60 >=60 mL/min/1.7 3 sq meter 09/06/2016 11:04 AM [employer] LABORATORY SERVICES - [facility] Comment: eGFR [...] GFR, >60 >=60 mL/min/1.7 3 sq meter 09/06/2016 11:04 AM [employer] SERVICES [facility]. [facility] ANION GAP 16 8 - 16 mmol/L 09/06/2016 11:04 AM [facility] [employer] [facility]ATORY SERVICES - [facility] Blood Venipuncture / Unknown 09/06/2016 9:58 AM IT SERVICE TECHNICIAN 09/06/2016 10:17 AM IT SERVICE TECHNICIAN Keo Meza MD CHEMISTRY ORDERABLES [facility] CL[facility] [id number] [facility] [place] [address] * (ABNORMAL) CBC WITH DIFFERENTIAL (09/06/2016 9:58 AM IT SERVICE TECHNICIAN) WBC 8.4 4.0 - 9.8 K/uL 09/06/2016 10:34 AM IT SERVICE TECHNICIAN [facility] SERVICES - [facility] RBC 4.13 3.90 - 4.90 M/uL 09/06/2016 10:34 AM [employer] SERVICES - [facility] HEMOGLOBIN 12.0 11.8 - 14.8 g/dL 09/06/2016 10:34 AM [employer] SERVICES - [facility] HEMATOCRIT 34.6(L) 35.5 - 44.0 % 09/06/2016 10:34 AM [employer] LABORATORY SERVICES - [facility] MCV 83.8 82.0 - 99.0 fL 09/06/2016 10:34 AM [employer] SERVICES - [facility] MCH 29.1 27.2 - 32.6 pg 09/06/2016 10:34 AM [employer] LABORATORY SERVICES - [facility] MCHC 34.7 31.5 - 35.5 g/dL 09/06/2016 10:34 AM [facility] SERVICES - [facility] RDW 14.4 11.5 - 14.5 % 09/06/2016 10:34 AM [employer] LABORATORY [employer] - [facility] RDW-STDEV 43.8 37.1 - 48.7 fL 09/06/2016 10:34 AM [employer] LABORATORY SERVICES - [facility] PLATELETS 307 140 - 350 K/uL 09/06/2016 10:34 AM [employer] LABORATORY SERVICES - [facility] MPV 9.3 9.3 - 12.4 fL 09/06/2016 10:34 AM [employer] LABORATORY SERVICES - [facility] NEUTROPHILS 77 % 09/06/2016 10:34 AM [facility] - [facility] LYMPHOCYTES 16 % 09/06/2016 10:34 AM [facility] SERVICES - [facility] MONOCYTES 6 % 09/06/2016 10:34 AM [facility]ORY SERVICES - [facility] EOSINOPHILS 1 % 09/06/2016 10:34 AM [facility] LABORATORY [facility] BASOPHILS 0 % 09/06/2016 10:34 AM [facility] LABORATORY [facility] - [facility] IMMATURE GRANULOCYTES 0 % 09/06/2016 10:34 AM [facility]ORY SERVICES - [facility] NEUTROPHIL ABSOLUTE 6.40 1.90 - 7.00 K/uL 09/06/2016 10:34 AM [facility]ATORY SERVICES - [facility] LYMPHOCYTE ABSOLUTE 1.36 0.70 - 4.50 K/uL 09/06/2016 10:34 AM [facility] LABORATORY [facility] - [facility] MONOCYTE ABSOLUTE 0.53 0.10 - 1.30 K/uL 09/06/2016 10:34 AM [facility] LABORATORY [facility] - [facility] EOSINOPHIL ABSOLUTE 0.05 0.00 - 0.70 K/uL 09/06/2016 10:34 AM [facility]ORATORY SERVICES - [facility] BASOPHILS ABSOLUTE 0.01 0.00 - 0.20 K/uL 09/06/2016 10:34 AM [facility] [employer] LABORATORY [facility] - [facility] IMMATURE GRANULOCYTES ABSOLUTE 0.02 0.00 - 0.03 K/uL 09/06/2016 10:34 AM [facility] LABORATORY [facility] - [facility] Blood Venipuncture / Unknown 09/06/2016 9:58 AM IT SERVICE TECHNICIAN 09/06/2016 10:16 AM IT SERVICE TECHNICIAN Keo Meza MD HEMATOLOGY ORDERABLE [facility]AT[facility] - [facility] CLIA# [id number] [address] [place] [id number] documented in this encounter Visit Diagnoses Diagnosis Unknown cause of injury- Primary Unspecified accident documented in this encounter Care Teams Electrician Front Relationship Specialty Start Date End Date Hilda Eden FNP [address] [place] [address] PCP - General NURSE PRACTITIONER 07/13/13 01/05/18 documented as of this encounter
--- OUTSIDE RECORDS SUMMARY | 2024-08-03 01:41 | XMS_ITS | Encounter Summary ---
Author Organization [facility] Address [address] [place] [address] Care Team Providers Care Ticket Chopper Assembler Name Role Phone Hilda Eden RADHA Primary Care Provider [phone] Reason for Visit * Auth/Cert Specialty Diagnoses / Procedures Referred By Reva t Referred To Contact Obstetrics Diagnoses N/V; multiple complaints [facility] Ob Triage [address] [place] [place] [address] Referral ID Status Reason Start Date Expiration Date Visits Re quested Visits Authorized [id number] 08/22/2016 09/22/2017 1 Encounter Details Date Type Department Care Team (Latest Contact Info) Description 08/21/2016 7:06 PM MEDICAL AIDE - 08/21/2016 9:35 PM MEDICAL AIDE Hospital Encounter [facility] OB Triage [address] [place] [address] [place] [address] [facility] [place] [address] Nausea and vomiting during Discharge Disposition: Home [...] Sign Reading Time Taken Comments Blood Pressure 119/57 08/21/2016 9:15 PM MEDICAL AIDE Pulse 87 08/21/2016 7:18 PM MEDICAL AIDE Temperature 36.3 ??C (97.3 ??F) 08/21/2016 7:18 PM CS T Respiratory Rate 18 08/21/2016 7:18 PM MEDICAL AIDE Oxygen Saturation - - Inhaled Oxygen Concentration - - Weight 105.2 kg (232 lb) 08/21/2016 7:18 PM MEDICAL AIDE Height 167.6 cm (5' 6 ) 08/21/2016 7:18 PM MEDICAL AIDE Body Mass Index 37.45 08/21/2016 7:18 PM MEDICAL AIDE documented in this encounter Discharge Instructions * Discharge Instructions* Ana Mckeon RN - 08/21/2016 9:33 PM MEDICAL AIDE Follow-up: Follow-up with your doctor at your next scheduled appointment. Prescriptions given? No *Make appointment for tomorrow instead of . Return to Labor and Delivery or notify [...] your home. Diet: Your diet is regular CAL AIDE documented in this encounter Medications at Time of Discharge Medication Sig Dispensed Refills Start Date End Date metoclopramide HCl (REGLAN) 10 mg tablet Take [...] as of this encounter Progress Notes * Ana Mckeon RN - 08/21/2016 9:32 PM CST Discharge instructions received and reviewed. Orders from Dr. Meza for patient to make appointment for tomorrow instead of . Patient verbalizes understanding and has no questions at this time. Discharged home undelivered. CAL AIDE * Ana Mckeon RN - 08/21/2016 7:57 PM CST Patient presents to OB triage c/o n/v/d for the past two months, has thrown up three times today and had diarrhea ten times. Also c/o sore throat. Patient states she has had strep throat recently andwas taking antibiotics but states she feels sick again once she is done with them. EFM and TOCO applied. Admission complete. Yessi Jaquez NP aware of admission, orders received. IV fluids started, labs drawn and sent to lab. CAL AIDE documented in this encounter H&P Notes * Janice Jaquez ANP - 08/21/2016 7:29 PM CST science specialist History and Physical CC: N&V, Diarrhea HPI: Vera M Winifred is a 31 y.o. @ 33w2d, who presents with the following Complaints/concerns: 1. Persistent N&V - 4 episodes today. No relief w/ zofran. No appetite. Reports 43lbs weight loss since beginning of . 2. Diarrhea - seems to be decreased recently b/c she can rarely eat. Usually has at least 1x/day. S/P 3 rounds of ABX for strep throat & +GBS since 06/2016. Finished last round of ABX about 1 week ago. Feels better on ABX, but once she's been off of them for 5-7 days reports return of symptoms. 3. SOB - can't do any activity > 10 minutes w/o having difficulty breathing & feeling near syncope. 4. Sore throat & productive cough - increased phlegm especially in AMs;usually yellow - green in color. Denies fevers. 5. Generalized weakness & fatigue - Has no energy. Sleeps majority of the day. Her has been complicated by N&V, diarrhea, strep throat (dx'd 06/2016), & cigarette smoking. Contractions: occasional aram-euceda. Vaginal bleeding: None. Leakage of fluid: denies. States normal movement. Her primary OB provider is Dr. Meza. Spouse & son @ bedside. Spouse reported multiple times how worried he is about her. I've neverseen her this sick. Male fetus. ROS: Comprehensive ROS done. Pertinent positives noted above. All others neg. Human Services Case Manager History: denies history of abnormal Pap smears or STIs OB History: RPL, Ruptured ectopic OB History Para Term AB SAB TAB Ectopic Multiple Living 12 1 1 0 10 9 0 1 0 1 # Outcome Date GA Lbr Sameer/2nd Weight Sex Delivery Anes PTL Lv 12 Current 11 09/2015 SAB 10 Ectopic 07/2015 ECTOPIC 9 SAB 03/2014 SAB 8 SAB 07/2013 SAB 7 SAB 09/2012 SAB 6 SAB 04/2012 SAB 5 Term 11/21/10 37w0d 3147 g (6 lb 15 oz) M CS-LTranv EPI N Y Complications: Failure to Progress in First Stage,Preeclampsia Comments: No observed anomalies 4 2009 3 2007 SAB 2 2005 SAB 1 2004 SAB PMHx: Bipolar, Anxiety, Depression, Elevated Lipids, MRSA of leg cyst (2010) PSHx: Ear surgery, Cholecystectomy, C/S, D&C, Lapx LT salpingectomy - ruptured ectopic, Axillary lymph node dissection PSocHX: Reviewed Social History Substance Use Topics ??? Smoking status: Current Every Day Smoker Packs/day: 0.50 Years: 10.00 Types: Cigarettes ??? Smokeless tobacco: Never Used ??? Alcohol use No Medications: No current facility-administered medications on file prior to encounter. Current Outpatient Prescriptions on File Prior to Encounter Medication Sig Dispense Refill ??? aspirin (KESHA CHEWABLE) 81 mg Tablet, [...] Take 50 mg by mouth daily. ??? metFORMIN (GLUCOPHAGE) 500 mg tablet Take 500 mg by mouth 2 times daily with meals. ??? L-methylfolate (DEPLIN) 15 mg Tablet Take [...] Adhesive Other (See Comments) Skin irritation ??? Latex Rash Physical Exam: Vitals: 08/21/16 1918 BP: (!) 150/83 Patient Position (BP): Sitting Pulse: 87 Resp: 18 Temp: 97.3 ??F (36.3 ??C) TempSrc: Oral Weight: 105.2 kg (232 lb) Height: 5' 6 (1.676 m) RPT BPs 119-134/57-80 O2Sat 97-100% on RA General: Well-developed, well-nourished female in NAD HEENT: Normocephalic, atraumatic. Mucus membranes pink & moist Heart: acyanotic, RRR Lungs: unlabored, CTAB Abdomen: soft, gravid, NT Extremities: No clubbing, cyanosis, or edema. No calf tenderness. SVE: deferred SSE: deferred Microscopic wet-mount exam not indicated EFM ~ 193 - 2019 FHR: 140 mod variability, +accels, no decels TOCO: 1 UC NST: reactive Results for orders placed or performed during the hospital encounter of 08/21/16 (from the past 24 hour(s)) URINALYSIS WITH REFLEX CULTURE Result Value Ref Range COLOR UA Yellow Pale to Dark Yellow CLARITY UA Clear Clear SPECIFIC GRAVITY UA 1.006 PH UA 7.0 5.0 - 8.0 LEUKOCYTE ESTERASE UA 1+ (A) Negative NITRITE UA Negative Negative PROTEIN UA Negative Negative GLUCOSE UA Negative Negative KETONES UA Trace (A) Negative UROBILINOGEN UA Normal <2.0 mg/dL BILIRUBIN UA Negative Negative BLOOD UA Negative Negative WBC UA 3-5 (A) 0 - 2 /hpf RBC UA 0-2 0 - 2 /hpf BACTERIA UA 1+ (A) Negative /hpf EPITHELIAL CELLS, URINE 0-5 0 - 5 /hpf CBC WITH DIFFERENTIAL Result Value Ref Range WBC 8.2 4.0 - 9.8 K/uL RBC 4.45 3.90 - 4.90 M/uL HEMOGLOBIN 13.0 11.8 - 14.8 g/dL HEMATOCRIT 37.3 35.5 - 44.0 % MCV 83.8 82.0 - 99.0 fL MCH 29.2 27.2 - 32.6 pg MCHC 34.9 31.5 - 35.5 g/dL RDW 14.4 11.5 - 14.5 % RDW-STDEV 43.1 37.1 - 48.7 fL PLATELETS 326 140 - 350 K/uL MPV 9.1 (L) 9.3 - 12.4 fL NEUTROPHILS 72 % LYMPHOCYTES 20 % MONOCYTES 7 % EOSINOPHILS 1 % BASOPHILS 0 % IMMATURE GRANULOCYTES 0 % NEUTROPHIL ABSOLUTE 5.89 1.90 - 7.00 K/uL LYMPHOCYTE ABSOLUTE 1.64 0.70 - 4.50 K/uL MONOCYTE ABSOLUTE 0.58 0.10 - 1.30 K/uL EOSINOPHIL ABSOLUTE 0.06 0.00 - 0.70 K/uL BASOPHILS ABSOLUTE 0.01 0.00 - 0.20 K/uL IMMATURE GRANULOCYTES ABSOLUTE 0.02 0.00 - 0.03 K/uL COMPREHENSIVE METABOLIC PANEL Result Value Ref Range SODIUM 136 136 - 145 mmol/L POTASSIUM 3.3 (L) 3.5 - 5.0 mmol/L CHLORIDE 97 (L) 98 - 107 mmol/L CO2 19 (L) 22 - 29 mmol/L CALCIUM 10.1 8.6 - 10.2 mg/dL BUN 5 (L) 6 - 20 mg/dL CREATININE 0.54 0.51 - 0.95 mg/dL GLUCOSE 78 74 - 99 mg/dL TOTAL PROTEIN 7.5 6.7 - 8.6 g/dL ALBUMIN 3.6 3.5 - 5.2 g/dL BILIRUBIN TOTAL 0.4 0.3 - 1.2 mg/dL ALKALINE PHOSPHATASE 213 (H) 35 - 104 U/L AST 33 (H) <33 U/L ALT 37 (H) <34 U/L GFR >60 >=60 mL/min/1.73 sq meter GFR, >60 >=60 mL/min/1.73 sq meter ANION GAP 20 (H) 8 - 16 mmol/L Assessment/Plan: 31 y.o. IUP @ 33w2d 1. N&V, Diarrhea IV fluids IV reglan & benadryl No emesis or diarrhea while here 3. status reassuring & reactive 2124 Pt notified labs WNL. Reports feeling a little better after IV meds. Wants to sleep her own bed tonight. [address] Meza. Order received for discharge. Pt to call office tomorrow for appt w/ Alesha sooner than . Pt verbalizes understanding & agreeable w/ plan. DIANA Mcnulty CAL AIDE documented in this encounter Plan of Treatment Upcoming Encounters Date Type Department Care Team (Late st Contact Info) Description 10/14/2024 11:00 AM MEDICAL AIDE Office Visit [facility] - [place] [address] [place] [address] Ubaldo Cardenas MD [address] [place] [address] Scheduled Orders Name Type Priority Associated Diagnoses Orde r Schedule STOOL CULTURE W/SHIGA TOXIN Microbiology Stat ONE TIME for 1 Occurrences starting 08/21/2016 until 08/21/2016 CLOSTRIDIUM DIFFICILE TOXIN Microbiology Stat ONE TIME for 1 Occurrences starting 08/21/2016 until 08/21/2016 OVA AND PARASITE SCREEN Microbiology Stat ONE TIME for 1 Occurrences starting 08/21/2016 until 08/21/2016 documented as of this encounter Procedures Procedure Name Priority Date/Time Associated Diagnosis Comments URINALYSIS WITH REFLEX CULTURE Stat 08/21/2016 7:45 PM MEDICAL AIDE CBC WITH DIFFERENTIAL Stat 08/21/2016 7:45 PM MEDICAL AIDE URINE CULTURE Routine 08/21/2016 7:45 PM MEDICAL AIDE COMPREHENSIVE METABOLIC PANEL Stat 08/21/2016 7:45 PM MEDICAL AIDE documented in this encounter Results * URINE CULTURE (08/21/2016 7:45 PM MEDICAL AIDE) [facility] CULTURE Polymicrobial growth consistent with normal urethral stephanie and/or colonizing bacteria 08/22/2016 8:45 PM MEDICAL AIDE [facility] Urine URINE SPECIMEN OBTAINED BY CLEAN CATCH PROCEDURE / Unknown Collection / Unknown 08/21/2016 7:45 PM MEDICAL AIDE 08/21/2016 8:15 PM MEDICAL AIDE Janice Jaquez [facility] MICROBIOLOGY - GENER AL ORDERABLES [id number] [address] [facility] [address] * (ABNORMAL) COMPREHENSIVE METABOLIC PANEL (08/21/2016 7:45 PM MEDICAL AIDE) [facility] SODIUM 136 136 - 145 mmol/L 08/21/2016 8:46 PM MEDICAL AIDE [facility] POTASSIUM 3.3(L) 3.5 - 5.0 mmol/L 08/21/2016 8:46 PM MEDICAL AIDE [facility] CHLORIDE 97(L) 98 - 107 mmol/L 08/21/2016 8:46 PM MEDICAL AIDE [facility] CO2 19(L) 22 - 29 mmol/L 08/21/2016 8:46 PM MEDICAL AIDE [facility] CALCIUM 10.1 8.6 - 10.2 mg/dL 08/21/2016 8:46 PM MEDICAL AIDE [facility] BUN 5(L) 6 - 20 mg/dL 08/21/2016 8:46 PM MEDICAL AIDE [facility] CREATININE 0.54 0.51 - 0.95 mg/dL 08/21/2016 8:46 PM [facility] - [facility] GLUCOSE 78 74 - 99 mg/dL 08/21/2016 8:46 PM [facility] TOTAL PROTEIN 7.5 6.7 - 8.6 g/dL 08/21/2016 8:46 PM [facility] ALBUMIN 3.6 3.5 - 5.2 g/dL 08/21/2016 8:46 PM [facility] BILIRUBIN TOTAL 0.4 0.3 - 1.2 mg/dL 08/21/2016 8:46 PM MEDICAL AIDE [facility] - [facility] ALKALINE PHOSPHATASE 213(H) 35 - 104 U/L 08/21/2016 8:46 PM MEDICAL AIDE [facility] AST 33(H) <33 U/L 08/21/2016 8:46 PM [facility] - [facility] ALT 37(H) <34 U/L 08/21/2016 8:46 PM [facility] - [facility] GFR >60 >=60 mL/min/1.7 3 sq meter 08/21/2016 8:46 PM [facility] Comment: eGFR [...] GFR, >60 >=60 mL/min/1.7 3 sq meter 08/21/2016 8:46 PM [facility] [employer] [facility]AT[facility] SERVICES - [facility] ANION GAP 20(H) 8 - 16 mmol/L 08/21/2016 8:46 PM [facility]ORATORY SERVICES - . [facility] Blood Venipuncture / Unknown 08/21/2016 7:45 PM MEDICAL AIDE 08/21/2016 7:56 PM MEDICAL AIDE Janice Jaquez [facility] CHEMISTRY ORDERABLES [employer] SERVICES - [facility] CLIA# [id number] [address] [facility] [place] [place] [address] * (ABNORMAL) CBC WITH DIFFERENTIAL (08/21/2016 7:45 PM MEDICAL AIDE) WBC 8.2 4.0 - 9.8 K/uL 08/21/2016 8:07 PM [facility] [employer] [facility] SERVICES - [facility] RBC 4.45 3.90 - 4.90 M/uL 08/21/2016 8:07 PM MEDICAL AIDE [facility] SERVICES - [facility] HEMOGLOBIN 13.0 11.8 - 14.8 g/dL 08/21/2016 8:07 PM [facility] [employer] LABORATORY SERVICES - . [facility] HEMATOCRIT 37.3 35.5 - 44.0 % 08/21/2016 8:07 PM [facility] LABORATORY SERVICES - . [facility] MCV 83.8 82.0 - 99.0 fL 08/21/2016 8:07 PM [facility]ATORY SERVICES - [facility] MCH 29.2 27.2 - 32.6 pg 08/21/2016 8:07 PM [facility]ORATORY SERVICES - . [facility] MCHC 34.9 31.5 - 35.5 g/dL 08/21/2016 8:07 PM [facility]ORATORY SERVICES - . [facility] RDW 14.4 11.5 - 14.5 % 08/21/2016 8:07 PM MEDICAL AIDE [employer] [facility]AT[facility] SERVICES - [facility] RDW-STDEV 43.1 37.1 - 48.7 fL 08/21/2016 8:07 PM [facility]ATORY SERVICES - [facility] PLATELETS 326 140 - 350 K/uL 08/21/2016 8:07 PM [facility]ORY SERVICES - [facility] MPV 9.1(L) 9.3 - 12.4 fL 08/21/2016 8:07 PM [facility] SERVICES - [facility] NEUTROPHILS 72 % 08/21/2016 8:07 PM [facility] LABORATORY [facility] LYMPHOCYTES 20 % 08/21/2016 8:07 PM [facility] LAB[facility] MONOCYTES 7 % 08/21/2016 8:07 PM [facility] EOSINOPHILS 1 % 08/21/2016 8:07 PM [facility] BASOPHILS 0 % 08/21/2016 8:07 PM [facility] IMMATURE GRANULOCYTES 0 % 08/21/2016 8:07 PM [facility] NEUTROPHIL ABSOLUTE 5.89 1.90 - 7.00 K/uL 08/21/2016 8:07 PM [facility] LAB[facility]ATORY [facility] - . [facility] LYMPHOCYTE ABSOLUTE 1.64 0.70 - 4.50 K/uL 08/21/2016 8:07 PM [facility] LAB[facility] MONOCYTE ABSOLUTE 0.58 0.10 - 1.30 K/uL 08/21/2016 8:07 PM [facility]ORY SERVICES - [facility] EOSINOPHIL ABSOLUTE 0.06 0.00 - 0.70 K/uL 08/21/2016 8:07 PM [facility]ORY SERVICES [facility] BASOPHILS ABSOLUTE 0.01 0.00 - 0.20 K/uL 08/21/2016 8:07 PM [facility] LABORATORY [facility] - . [facility] IMMATURE GRANULOCYTES ABSOLUTE 0.02 0.00 - 0.03 K/uL 08/21/2016 8:07 PM [facility] LABORATORY [facility] - . [facility] Blood Venipuncture / Unknown 08/21/2016 7:45 PM MEDICAL AIDE 08/21/2016 7:56 PM MEDICAL AIDE Janice Jaquez ANP HEMATOLOGY ORDERABLE S [facility] LABORATORY SERVICES [facility] CLIA# [id number] [address] [facility] [place] [place] [address] * (ABNORMAL) URINALYSIS WITH REFLEX CULTURE (08/21/2016 7:45 PM MEDICAL AIDE) COLOR UA Yellow Pale to Dark Yellow 08/21/2016 8:15 PM [facility] [employer] [facility] - [facility] CLARITY UA Clear Clear 08/21/2016 8:15 PM [facility] [employer] [facility] SPECIFIC GRAVITY UA 1.006 08/21/2016 8:15 PM [facility] PH UA 7.0 5.0 - 8.0 08/21/2016 8:15 PM [facility] [employer] [facility] LEUKOCYTE ESTERASE UA 1+(A) Negative 08/21/2016 8:15 PM [facility] [employer] [facility] NITRITE UA Negative Negative 08/21/2016 8:15 PM [facility] [employer] [facility] PROTEIN UA Negative Negative 08/21/2016 8:15 PM [facility] [employer] [facility] GLUCOSE UA Negative Negative 08/21/2016 8:15 PM [facility] [employer] [facility] KETONES UA Trace(A) Negative 08/21/2016 8:15 PM [facility] [employer] [facility] UROBILINOGEN UA Normal <2.0 mg/dL 7 8:15 PM [facility] [employer] [facility] BILIRUBIN UA Negative Negative 08/21/2016 8:15 PM [facility] [employer] [facility] BLOOD UA Negative Negative 08/21/2016 8:15 PM [facility] [employer] [facility] WBC UA 3-5(A) 0 - 2 /hpf 08/21/2016 8:15 PM [facility] RBC UA 0-2 0 - 2 /hpf 08/21/2016 8:15 PM [facility] [employer] [facility] BACTERIA UA 1+(A) Negative /hpf 08/21/2016 8:15 PM [facility] [employer] [facility] EPITHELIAL CELLS, URINE 0-5 0 - 5 /hpf 08/21/2016 8:15 PM [facility] [employer] [facility] Urine URINE SPECIMEN OBTAINED BY CLEAN CATCH PROCEDURE / Unknown Collection / Unknown 08/21/2016 7:45 PM MEDICAL AIDE 08/21/2016 7:56 PM MEDICAL AIDE [facility]AT[facility] - 08/21/2016 8:15 PM MEDICAL AIDE Based on results, a urine culture has been reflexed. Janice ALMAZAN URINE ORDERABLES [facility]# [id number] [address] [place] [address] documented in this encounter Visit Diagnoses Diagnosis Nausea and vomiting during Diarrhea documented in this encounter Administered Medications Inactive Administered Medications - up to 3 most recent administrations Medication Order MAR Action Action Date Dose Rate Site benzonatate (TESSALON) capsule 200 mg 200 mg, Oral, ONE TIME ONLY, 1 dose, On Sun08/21/16 at 204, Routine Given 08/21/2016 8:49 PM MEDICAL AIDE 200 mg diphenhydrAMINE (BENADRYL) injection 25 mg 25 mg, IV, ONE TIME ONLY, 1 dose, On Sun08/21/16 at 204, Routine Given 08/21/2016 8:39 PM MEDICAL AIDE 25 mg lactated ringers solution IV, at 125 mL/hr, CONTINUOUS, Starting on Sun08/21/16 at 1930, Until Sun08/21/16 at 2343, Routine New Bag 08/21/2016 7:46 PM MEDICAL AIDE 125 mL/hr metoclopramide HCl (REGLAN) injection 10 mg 10 mg, IV, ONE TIME ONLY, 1 dose, On Sun08/21/16 at 2044, Routine Given 08/21/2016 8:39 PM MEDICAL AIDE 10 mg documented in this encounter Active and Recently Administered Medications Times are shown in MEDICAL AIDE. Scheduled Medication Order 08/19/2016 08/20/2016 08/21/2016 benzonatate (TESSALON) capsule 200 mg (COMPLETED) 200 mg, Oral, ONE TIME ONLY, 1 dose, On Sun08/21/16 at 2044, Routine 2048 (Given - Provid er: Ana Mckeon RN) diphenhydrAMINE (BENADRYL) injection 25 mg (COMPLETED) 25 mg, IV, ONE TIME ONLY, 1 dose, On Sun08/21/16 at 2044, Routine 2038 (Given - Provid er: Ana Mckeon RN) metoclopramide HCl (REGLAN) injection 10 mg (COMPLETED) 10 mg, IV, ONE TIME ONLY, 1 dose, On Sun08/21/16 at 2044, Routine 2038 (Given - Provid er: Ana Mckeon, JACK) Continuous Medication Order 08/19/2016 08/20/2016 08/21/2016 lactated ringers solution IV, at 125 mL/hr, CONTINUOUS, Starting on Sun08/21/16 at 1930, Until Sun08/21/16 at 2343, Routine 1946 (New Bag - Prov ider: Ana Mckeon RN) documented in this encounter Care Teams Ticket Chopper Assembler Relationship Specialty Start Date End Date Hilda Eden FNP [address] [place] [id number] PCP - General NURSE PRACTITIONER 07/13/13 01/05/18 documented as of this encounter
--- OUTSIDE RECORDS SUMMARY | 2024-08-03 01:41 | XMS_ITS | Encounter Summary ---
Author Organization [facility] Address [address] [place] [address] Care Team Providers Care Card Writer Hand Name Role Phone EdenHilda pastrana RADHA Primary Care Provider [phone] Reason for Referral * Outpatient Services (Routine) - Closed Specialty Diagnoses / Procedures Referred By Reva holbrook Referred To Contact Radiology Diagnoses Maternal morbid obesity in second trimester, antepartum Morbid obesity, unspecified obesity type care of habitual aborter in second trimester Maternal care due to low transverse uterine scar from previous delivery Supervision of with history of pre-term labor in second trimester with mental disorders, second trimester Procedures US OB LIMITED + WILLIT Kaden Albert DO NO ADDRESS ON FILE [facility] [place] [address] [place] [address] Referral ID Status Reason Start Date Expiration Date Visits Re quested Visits Authorized [id number] Closed 08/31/2016 10/01/2017 1 1 TRANSMISSION SPECIALIST Reason for Visit * Outpatient Services (Routine) - Closed Specialty Diagnoses / Procedures Referred By Reva holbrook Referred To Contact Radiology Diagnoses Maternal morbid obesity in second trimester, antepartum Morbid obesity, unspecified obesity type care of habitual aborter in second trimester Maternal care due to low transverse uterine scar from previous delivery Supervision of with history of pre-term labor in second trimester with mental disorders, second trimester Procedures US OB LIMITED + NST Kaden Albert, DO NO ADDRESS ON FILE [facility] [address] [place] [address] Referral ID Status Reason Start Date Expiration Date Visits Re quested Visits Authorized [id number] Closed 08/31/2016 10/01/2017 1 1 Encounter Details Date Type Department Care Team (Latest Contact Info) Description 09/11/2016 9:20 AM AUTO TRANSMISSION SPECIALIST - 09/11/2016 11:59 PM [facility] Hospital Encounter [facility] [address] [place] [address] [place] [address] Kaden Albert, DO NO ADDRESS ON FILE Discharge Disposition: Home or Self Care Social [...] st Contact Info) Description 10/14/2024 11:00 AM AUTO TRANSMISSION SPECIALIST Office Visit [facility] H[facility]ology - [place] [address] [facility] [address] [place] [address] Ubaldo Cardenas MD [address] [facility] [place] [address] documented as of this encounter Procedures Procedure Name Priority Date/Time Associated Diagnosis Comments US OB LIMITED + NST Routine 09/11/2016 1 0:40 AM AUTO TRANSMISSION SPECIALIST Maternal morbid obesity in second trimester, antepartum Morbid obesity, unspecified obesity type care of habitual aborter in second trimester Maternal care due to low transverse uterine scar from previous delivery Supervision of with history of pre-term labor in second trimester with mental disorders, second trimester documented in this encounter Results * US OB LIMITED + NST (09/11/2016 10:40 AM AUTO TRANSMISSION SPECIALIST) Anatomical Region Laterality Modality Pelvis Ultrasound 09/11/2016 10:1 1 AM AUTO TRANSMISSION SPECIALIST Impressions 09/11/2016 10:45 AM AUTO TRANSMISSION SPECIALIST IMPRESSION ----- NST is reactive, NATHAN is normal. Impression: reassuring testing. Narrative 09/11/2016 10:45 AM AUTO TRANSMISSION SPECIALIST Modified BPP Study ----- Pat. Name: VERA PARKER Study Date: 09/11/2016 10:11am Pat. 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 x10 Previous History of PTD ? @35 wks due to pre-eclampsia Maternal Obesity (bmi>40) Maternal Mental Disorder CODING ----- Diagnosis ? O26.23: care for patient with recurrent loss. ?O34.21: Maternal care for scar from previous delivery. ?O09.213: Supervision of with history of pre-term labor. ?O99.213: Obesity complicating . ?E66.01: Morbid (severe) obesity due to excess calories. ?O99.343: Other mental disorders complicating . ?Z3A.36: Weeks Gestation of . Procedures ?45286: NST/ monitoring. ?87003: Limited 1 or more - NATHAN, FHR, position (modifier 59 for MBPP). HISTORY ----- OB History ?: 12. Para: 1. ?A10L1. ?Miscarriages: 9. Ectopic: 1. Medication ?Ursodiol : 300mg TID. MATERNAL ASSESSMENT ----- Physical Exam ? Weight 105 kg. BMI 37.20 kg/m?. Blood pressure 121 / 76 mmHg. Heart rate 89 bpm. METHOD ----- EFM, Transabdominal ultrasound examination. ----- [place] . Number of fetuses: 1. DATING ----- GA by stated dating 36 w + 2 d MINDY by stated dating : 10/07/2016 Assigned: Dating performed on 09/11/2016, based on the stated dating Assigned GA 36 w + 2 d Assigned MINDY: 10/07/2016 GENERAL EVALUATION ----- Cardiac activity: present. movements: visualized. Presentation: cephalic. NON STRESS TEST ----- Reactive FHR: yes. Baseline rate 140 bpm. Duration 30 min. Acceleration: 15 bpm for 15 sec. Deceleration: absent. Uterine activity: present, irritability. Variability: moderate (6-25 bpm). AMNIOTIC FLUID ASSESSMENT ----- Amount of AF: normal amount. MVP 5.0 cm. NATHAN 12.4 cm. Q1 1.9 cm, Q2 3.0 cm, Q3 5.0 cm, Q4 2.6 cm. COMMENT ----- Nursing notes: ?Patient states fetus active. Patient complains of irregular contractions. Patient denies vaginal bleeding or leaking of amniotic fluid. ,?Patient scheduled for section on Sep 13. Pt denies any needs or concerns at this time. FOLLOW-UP ----- Recommendations: repeat studies as clinically indicated. Procedure Note Carolina Cortez MD - 09/11/2016 Modified BPP Study ----- Pat. Name:Michael PARKER Date:09/11/2016 10:11am Pat. NO: [id number] MD:JERICA JULIEN [facility]1985Age:31 ----- INDICATION ----- Recurrent loss, Antepartum x10 Previous History of PTD @35 wks due topre-eclampsia Maternal Obesity (bmi>40) Maternal Mental Disorder CODING ----- Diagnosis O26.23: care for patient with recurrentpregnancy loss. O34.21: Maternal care for scar from previouscesarean delivery. O09.213: Supervision of with history ofpre-term labor. O99.213: Obesity complicating . E66.01: Morbid (severe) obesity due to excesscalories. O99.343: Other mental disorders complicatingpregnancy. Z3A.36: Weeks Gestation of . Procedures 25221: NST/ monitoring. 21079: Limited 1 or more - NATHAN, FHR, position(modifier 59 for MBPP). HISTORY ----- OB History : 12. Para: 1. A10L1. Miscarriages: 9. Ectopic: 1. Medication Ursodiol : 300mg TID. MATERNAL ASSESSMENT ----- Physical Exam Weight 105 kg. BMI 37.20 kg/m?. Blood pressure 121/ 76 mmHg. Heart rate 89 bpm. METHOD ----- EFM, Transabdominal ultrasound examination. ----- [place] . Number of fetuses: 1. DATING ----- GA by stated dating 36 w + 2 d MINDY by stated dating :10/07/2016 Assigned:Dating performed on 09/11/2016, based on the stated dating Assigned GA36 w + 2 d Assigned MINDY:10/07/2016 GENERAL EVALUATION ----- Cardiac activity: present. movements: visualized. Presentation: cephalic. NON STRESS TEST ----- Reactive FHR: yes. Baseline rate 140 bpm. Duration 30 min. Acceleration:15 bpm for 15 sec. Deceleration: absent. Uterine activity: present, irritability. Variability: moderate (6-25 bpm). AMNIOTIC FLUID ASSESSMENT ----- Amount of AF: normal amount. MVP 5.0 cm. NATHAN 12.4 cm. Q1 1.9 cm, Q2 3.0 cm, Q3 5.0 cm, Q4 2.6 cm. COMMENT ----- Nursing notes: ?Patient states fetus active. Patient complains ofirregular contractions. Patient denies vaginal bleeding or leaking of amniotic fluid. ,?Patient scheduled for section onWed. Sep 13. Pt denies any needs or concerns at this time. FOLLOW-UP ----- Recommendations: repeat studies as clinically indicated. IMPRESSION IMPRESSION ----- NST is reactive, NATHAN is normal. Impression: reassuring testing. Kaden Albert DO US ORDERABLES documented in this encounter Visit [...] trimester documented in this encounter Care Teams Card Writer Hand Relationship Specialty Start Date End Date Hilda Eden FNP [address] [place] [id number] PCP - General NURSE PRACTITIONER 07/13/13 01/05/18 documented as of this encounter
--- OUTSIDE RECORDS SUMMARY | 2024-08-03 01:41 | XMS_ITS | Encounter Summary ---
Author Organization [facility] Address [address] [place] [address] Care Team Providers Care Gold Burnisher Name Role Phone Hilda Eden RADHA Primary Care Provider [phone] Reason for Visit * Auth/Cert Specialty Diagnoses / Procedures Referred By Reva holbrook Referred To Contact Obstetrics Diagnoses itching [facility] Labor [address] [place] [address] Referral ID Status Reason Start Date Expiration Date Visits Re quested Visits Authorized [id number] 08/28/2016 09/28/2017 1 Encounter Details Date Type Department Care Team (Latest Contact Info) Description 08/26/2016 11:48 AM SHOE CUTTER - 08/26/2016 3:30 PM SHOE CUTTER Hospital Encounter [facility] Labor & [address] [place] [address] [place] [address] [place] [id number] Discharge Disposition: Home or Self Care Social [...] Sign Reading Time Taken Comments Blood Pressure 113/79 08/26/2016 1:11 PM SHOE CUTTER Pulse 92 08/26/2016 12:21 PM SHOE CUTTER Temperature 36.3 ??C (97.3 ??F) 08/26/2016 12:[address] Respiratory Rate 20 08/26/2016 12:21 PM SHOE CUTTER Oxygen Saturation - - Inhaled Oxygen Concentration - - Weight 105.2 kg (232 lb) 08/26/2016 12:21 PM SHOE CUTTER Height 167.6 cm (5' 6 ) 08/26/2016 12:21 PM SHOE CUTTER Body Mass Index 37.45 08/26/2016 12:21 PM SHOE CUTTER documented in this encounter Discharge Instructions * Discharge Instructions* Di, Melinda Jacobson RN - 08/26/2016 3:09 PM SHOE CUTTER Prescriptions: Prescriptions given? Yes Return to Labor and Delivery or notify your physician regarding: Contractions: If having more than 6 in an hour, lay down for and drink 42 oz of water. If after an hour the ctx have not resolved call your doctor. Vaginal Bleeding: A small amount of spotting [...] of face, hands, or feet. Additional Instructions: 24 hour urine: In the morning go to the bathroom (DO NOT save that urine) and jose d the time. Save every urine in jug provided and keep on ice. At the same time Sunday morning go to the bathroom one last time and save that urine. Drop urine off at the [facility] lab or Dr Julien's office. Medrol Dose Pack: Take medication as prescribed. DO NOT stop abruptly. Ursodiol as prescribed. Bile Acids results should be back by Sunday. Call Dr Julien's office if you have not heard anything by Sunday. Activity: Your activity level is no restrictions and no smoking. If you smoke you are advised to quit. Ask your health care provider for advice if you need assistance to stop smoking. Avoid second-hand smoke exposure and do not let people smoke in your home. Diet: Your diet is regular CUTTER documented in this encounter Medications at Time [...] as of this encounter Progress Notes * Melinda Sevilla RN - 08/26/2016 3:30 PM CST Pt discharged to home with instructions and prescriptions and 24 hour urine with explanation of howto obtain. Pt verbalized understanding. Pt ambulatory with belongs and 24 hour urine supplies. CUTTER documented in this encounter H&P Notes * Carmen Rangel MD - 08/26/2016 1:18 PM CST OB History & Physical CC: itching HPI: Vera Vitale is a 31 y.o. @ 34w0d who presents complaining of itching that has been unbearable the last 2 days. She itches all over her body and particularly the palms of her hands.She has tried benadryl, hydrocortisone cream, lotion and oatmeal baths to no relief. She states sheis miserable. She reports good movement, denies leakage of fluid, contractions or vaginal bleeding. Her has been otherwise uncomplicated. She did take progesterone supplementation until 14 weeks gestation. Her primary OB is Keo Julien MD. ROS: As above. Denies nausea, vomiting, chest pain, shortness of breath, headache, or vision symptoms. 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 PMHx: Past Medical History Diagnosis Date ??? Anxiety Zoloft ??? Bipolar affective disorder ??? Depression bipolar ??? High cholesterol ??? MRSA (methicillin resistant Staphylococcus aureus) 08/2009 cysts on leg, never cultured-told it was staph and was given medication PSHx: Past Surgical History Procedure Laterality Date ??? Hx ear surgery ??? Hx cholecystectomy 02/2010 ??? Pr delivery only 11/21/2010 SECTION performed by KEO JULIEN at [facility] L&D ??? Hchg dilitation and curettage 01/14/2014 ??? Pr lap,rmv adnexal structure N/A 08/06/2015 LEFT SALPINGECTOMY LAPAROSCOPIC FOR ECTOPIC performed by Ayde Judge MD at [facility] ??? Hx lymph node dissection 10/2014 armpit ??? Hx dilation and curettage 01/2014 per fertility MD FHx: Negative for breast, colon, or ovarian [...] (UNISOM, DIPHENHYDRAMINE, ORAL) Take by mouth. ??? sertraline (ZOLOFT) 50 mg tablet Take [...] Take 1 Tab by mouth daily. ??? ondansetron (ZOFRAN ODT) 4 mg Tablet, Rapid Dissolve Take 1 Tablet (4 mg) by mouth every 8 hours as needed for Nausea/Emesis Dissolve tablet on top of tongue, then swallow with saliva.. 9 Tablet 1 ??? docusate sodium (COLACE) 100 mg capsule Take 1 Capsule (100 mg) by mouth 2 times daily. 60 Capsule 0 Allergies Allergen Reactions ??? Adhesive Other (See Comments) Skin irritation ??? Latex Rash Physical Exam: Vitals: 08/26/16 1221 BP: (!) 141/85 Patient Position (BP): Sitting Pulse: 92 Resp: 20 Temp: 97.3 ??F (36.3 ??C) Weight: 105.2 kg (232 lb) Height: 5' 6 (1.676 m) General: Well-developed, well-nourished female in distress; excoriations over her arms, abdomen HEENT: NCAT, moist mucus membranes Heart: acyanotic Lungs: breathing non-labored Abdomen: Gravid, NT Extremities: No clubbing, cyanosis, or edema. No calf tenderness. SVE: deferred FHR: 150, mod variability, +accels, no decels [place]: quiet SSE: deferred Bedside US: vertex, 1912g (32w5d), posterior placenta, NATHAN 13.9cm No results found for this visit on 08/26/16 (from the past 24 hour(s)). Assessment/Plan: 31 y.o. @ 34w0d with pruritis 1. R/O cholestasis of - excoriations throughout chest/abdomen and UE - no evidence of rash on exam - CMP, bile acids being drawn 2. status reassuring: - NST reactive - BSUS: vertex, AGA, nl fluid 3. Rule out pre-eclampsia - elevated BP 141/85 on admission, documented elevated BP's with prior visit as well - gHTN; check labs to rule out pre-e 4. RN discussed initial eval with Dr. Adames. Will update when labs result. Carmen Rangel MD AST/ALT have doubled since 08/[address] labs. D[address] results [address] Adames. Pre-e labs otherwise stable. Will D/C with RX for ursodiol, medrol dose pack and instructions to complete 24h urine. Carmen Rangel MD, 08/26/2016 2:51 PM CUTTER documented in this encounter Plan of Treatment Upcoming Encounters Date Type Department Care Team (Late st Contact Info) Description 10/14/2024 11:00 AM SHOE CUTTER Office Visit [facility] Oncology and Hematology - [place] [address] [place] [address] Ubaldo Cardenas MD [address] [facility] [address] [place] [phone] documented as of this encounter Procedures Procedure Name Priority Date/Time Associated Diagnosis Comments PROTEIN , RANDOM URINE Stat 7 1:46 PM SHOE CUTTER URINALYSIS WITH REFLEX CULTURE Stat 08/26/2016 1:45 PM SHOE CUTTER BILE ACIDS FRACTIONATED AND TOTAL Routine 08/26/2016 1:45 PM SHOE CUTTER CBC WITH DIFFERENTIAL Stat 08/26/2016 1:45 PM SHOE CUTTER URINE CULTURE Routine 08/26/2016 1:45 PM SHOE CUTTER URIC ACID Stat 08/26/2016 1:45 PM SHOE CUTTER LACTATE DEHYDROGENASE Stat 08/26/2016 1:45 PM SHOE CUTTER COMPREHENSIVE METABOLIC PANEL Stat 08/26/2016 1:45 PM SHOE CUTTER documented in this encounter Results * (ABNORMAL) PROTEIN , RANDOM URINE (08/26/2016 1:46 PM SHOE CUTTER) PROTEIN CONCENTRATION 22(H) 0 - 20 mg/dL 08/26/2016 2:15 PM SHOE CUTTER [facility] CREATININE, URINE 75.2 29.0 - 226.0 mg/dL 08/26/2016 2:15 PM SHOE CUTTER [facility] Comment: Reference Range varies with fluid intake and diet. PROTEIN/CREAT RATIO, URINE 0.29(H) 0.00 - 0.19 mg/mg Creatinine 08/26/2016 2:15 PM SHOE CUTTER [facility] Urine URINE SPECIMEN OBTAINED BY CLEAN CATCH PROCEDURE / Unknown Collection / Unknown 08/26/2016 1:46 PM SHOE CUTTER 08/26/2016 1:51 PM SHOE CUTTER Keo Julien MD URINE ORDERABLES [facility] [employer] [facility] CLIA# [id number] [address] [place] [address] * (ABNORMAL) URINE CULTURE (08/26/2016 1:45 PM SHOE CUTTER) CULTURE <10,000 cfu/mL Streptococcus group B(A) 08/28/2016 10:01 AM [facility] [employer] [facility] Comment:NOTE: In wo men, recovery of Group B Streptococcus may be significant. However, in non- women, recovery in small quantities suggests contamination with mela urethral stephanie. CULTURE 10,000-50,000 cfu/mL Normal urethral stephanie 08/28/2016 10:01 AM [facility] [facility] Urine URINE SPECIMEN OBTAINED BY CLEAN CATCH PROCEDURE / Unknown Collection / Unknown 08/26/2016 1:45 PM SHOE CUTTER 08/26/2016 2:00 PM SHOE CUTTER Keo Julien MD MICROBIOLOGY - [facility] AL ORDERABLES Performing Organization Address City/State/[facility] Co de Phone Number [facility] [employer] [facility] CLIA# [id number] [address] [place] [address] * (ABNORMAL) URINALYSIS WITH REFLEX CULTURE (08/26/2016 1:45 PM SHOE CUTTER) COLOR UA Yellow Pale to Dark Yellow 08/26/2016 2:01 PM [facility] CLARITY UA Clear Clear 08/26/2016 2:01 PM [facility] SPECIFIC GRAVITY UA 1.009 08/26/2016 2:01 PM [facility] PH UA 6.0 5.0 - 8.0 08/26/2016 2:01 PM [facility] LEUKOCYTE ESTERASE UA 1+(A) Negative 08/26/2016 2:01 PM [facility] NITRITE UA Negative Negative 08/26/2016 2:01 PM [facility] PROTEIN UA Negative Negative 08/26/2016 2:01 PM [facility] GLUCOSE UA Negative Negative 08/26/2016 2:01 PM [facility] KETONES UA Negative Negative 08/26/2016 2:01 PM [facility] UROBILINOGEN UA Normal <2.0 mg/dL 7 2:[address] [facility] BILIRUBIN UA Negative Negative 08/26/2016 2:01 PM [facility] BLOOD UA Negative Negative 08/26/2016 2:01 PM [facility] WBC UA 3-5(A) 0 - 2 /hpf 08/26/2016 2:[address] [facility] RBC UA 0-2 0 - 2 /hpf 08/26/2016 2:01 PM [facility] BACTERIA UA 1+(A) Negative /hpf 08/26/2016 2:01 PM [facility] EPITHELIAL CELLS, URINE 0-5 0 - 5 /hpf 08/26/2016 2:01 PM [facility] TRANSITIONAL EPI 0-2 0 - 2 /hpf 08/26/19 17 2:01 PM [facility] Urine URINE SPECIMEN OBTAINED BY CLEAN CATCH PROCEDURE / Unknown Collection / Unknown 08/26/2016 1:45 PM SHOE CUTTER 08/26/2016 1:51 PM SHOE CUTTER Narrative [facility] - 08/26/2016 2:01 PM SHOE CUTTER Based on results, a urine culture has been reflexed. Keo Julien MD URINE ORDERABLES [facility]# [id number] [address] [place] [address] * URIC ACID (08/26/2016 1:45 PM SHOE CUTTER) URIC ACID 4.9 2.4 - 5.7 mg/dL 08/26/2016 2:26 PM [facility] Blood Venipuncture / Unknown 08/26/2016 1:45 PM SHOE CUTTER 08/26/2016 1:51 PM SHOE CUTTER Keo Julien MD CHEMISTRY ORDERABLES [facility] [employer] [facility]# [id number] [address] [place] [address] * LACTATE DEHYDROGENASE (08/26/2016 1:45 PM SHOE CUTTER) [facility] LD (LACTATE DEHYDROGENASE) 139 135 - 214 U/L 08/26/2016 2:26 PM SHOE CUTTER [facility] Blood Venipuncture / Unknown 08/26/2016 1:45 PM SHOE CUTTER 08/26/2016 1:51 PM SHOE CUTTER Keo Julien MD CHEMISTRY ORDERABLES [facility] [employer] [facility]# [id number] [address] [place] [address] * (ABNORMAL) CBC WITH DIFFERENTIAL (08/26/2016 1:45 PM SHOE CUTTER) [facility] WBC 7.5 4.0 - 9.8 K/uL 08/26/2016 2:15 PM SHOE CUTTER [facility] RBC 4.34 3.90 - 4.90 M/uL 08/26/2016 2:15 PM SHOE CUTTER [facility] HEMOGLOBIN 12.5 11.8 - 14.8 g/dL 08/26/2016 2:15 PM SHOE CUTTER [facility] HEMATOCRIT 36.2 35.5 - 44.0 % 08/26/2016 2:15 PM SHOE CUTTER [facility] MCV 83.4 82.0 - 99.0 fL 08/26/2016 2:15 PM SHOE CUTTER [facility] MCH 28.8 27.2 - 32.6 pg 08/26/2016 2:15 PM SHOE CUTTER [facility] MCHC 34.5 31.5 - 35.5 g/dL 08/26/2016 2:15 PM SHOE CUTTER [facility] RDW 14.0 11.5 - 14.5 % 08/26/2016 2:15 PM SHOE CUTTER [facility] RDW-STDEV 42.5 37.1 - 48.7 fL 08/26/2016 2:15 PM SHOE CUTTER [facility] PLATELETS 341 140 - 350 K/uL 08/26/2016 2:15 PM SHOE CUTTER [facility] MPV 9.1(L) 9.3 - 12.4 fL 08/26/2016 2:15 PM SHOE CUTTER [facility] NEUTROPHILS 73 % 08/26/2016 2:15 PM SHOE CUTTER [facility] LYMPHOCYTES 21 % 08/26/2016 2:15 PM SHOE CUTTER [facility] MONOCYTES 5 % 08/26/2016 2:15 PM SHOE CUTTER [facility] EOSINOPHILS 1 % 08/26/2016 2:15 PM SHOE CUTTER [facility] BASOPHILS 0 % 08/26/2016 2:15 PM SHOE CUTTER [facility] IMMATURE GRANULOCYTES 0 % 08/26/2016 2:15 PM SHOE CUTTER [facility] NEUTROPHIL ABSOLUTE 5.44 1.90 - 7.00 K/uL 08/26/2016 2:15 PM SHOE CUTTER [facility] LYMPHOCYTE ABSOLUTE 1.60 0.70 - 4.50 K/uL 08/26/2016 2:15 PM SHOE CUTTER [facility] MONOCYTE ABSOLUTE 0.39 0.10 - 1.30 K/uL 08/26/2016 2:15 PM SHOE CUTTER [facility] EOSINOPHIL ABSOLUTE 0.04 0.00 - 0.70 K/uL 08/26/2016 2:15 PM SHOE CUTTER [facility] BASOPHILS ABSOLUTE 0.01 0.00 - 0.20 K/uL 08/26/2016 2:15 PM [employer] [facility] IMMATURE GRANULOCYTES ABSOLUTE 0.03 0.00 - 0.03 K/uL 08/26/2016 2:15 PM SHOE CUTTER [facility] Blood Venipuncture / Unknown 08/26/2016 1:45 PM SHOE CUTTER 08/26/2016 1:51 PM SHOE CUTTER Keo Julien MD HEMATOLOGY ORDERABLE S [facility] CLIA# [id number] [address] [place] [address] * (ABNORMAL) BILE ACIDS FRACTIONATED AND TOTAL (08/26/2016 1:45 PM SHOE CUTTER) CHOLIC ACID 37.98(H) <=5.00 nmol/mL 08/30/2016 2:46 PM SHOE CUTTER [facility] CHENODEOXYCHOLIC ACID 9.86(H) <=6.00 nmol/mL 08/30/2016 2:46 PM SHOE CUTTER [facility] DEOXYCHOLIC ACID 10.76(H) <=6.00 nmol/mL 08/30/2016 2:46 PM SHOE CUTTER [facility] URSODEOXYCHOLIC ACID 2.18(H) <=2.00 nmol/mL 08/30/2016 2:46 PM SHOE CUTTER [facility] BILE ACIDS, TOTAL 60.78(H) <=19.00 nmol/mL 08/30/2016 2:46 PM SHOE CUTTER [facility] Comment: ADDITIONAL INFORMATION This test was developed and its performance characteristics determined by [facility] in a manner consistent with CLIA requirements. This test has not been cleared or approved by the U.S. Food and Drug Administration. Test Performed by: [place] [address] Production Support Developer: Rachid Hanley II, M.D., Ph.D. Blood Venipuncture / Unknown 08/26/2016 1:45 PM SHOE CUTTER 08/26/2016 1:51 PM SHOE CUTTER Keo Julien MD CHEMISTRY ORDERABLES [facility] [employer] - ST * (ABNORMAL) COMPREHENSIVE METABOLIC PANEL (08/26/2016 1:45 PM SHOE CUTTER) Pathologist [facility] SODIUM 138 136 - 145 mmol/L 08/26/2016 2:26 PM SHOE CUTTER [facility] POTASSIUM 3.5 3.5 - 5.0 mmol/L 08/26/2016 2:26 PM [facility] CHLORIDE 100 98 - 107 mmol/L 08/26/2016 2:26 PM SHOE CUTTER [facility] CO2 22 22 - 29 mmol/L 08/26/2016 2:26 PM [facility] CALCIUM 9.8 8.6 - 10.2 mg/dL 08/26/2016 2:26 PM [facility] BUN 5(L) 6 - 20 mg/dL 08/26/2016 2:26 PM [facility] CREATININE 0.54 0.51 - 0.95 mg/dL 08/26/2016 2:26 PM SHOE CUTTER [facility] GLUCOSE 76 74 - 99 mg/dL 08/26/2016 2:26 PM [facility] TOTAL PROTEIN 7.2 6.7 - 8.6 g/dL 08/26/2016 2:26 PM SHOE CUTTER [facility] ALBUMIN 3.5 3.5 - 5.2 g/dL 08/26/2016 2:26 PM SHOE CUTTER [facility] BILIRUBIN TOTAL 0.6 0.3 - 1.2 mg/dL 08/26/2016 2:26 PM SHOE CUTTER [facility] ALKALINE PHOSPHATASE 220(H) 35 - 104 U/L 08/26/2016 2:26 PM [facility] AST 63(H) <33 U/L 08/26/2016 2:26 PM SHOE CUTTER [facility] ALT 81(H) <34 U/L 08/26/2016 2:26 PM SHOE CUTTER [facility] GFR >60 >=60 mL/min/1.7 3 sq meter 08/26/2016 2:26 PM [facility] [facility] Comment: eGFR has not been validated [...] GFR, >60 >=60 mL/min/1.7 3 sq meter 08/26/2016 2:26 PM SHOE CUTTER [facility] ANION GAP 16 8 - 16 mmol/L 08/26/2016 2:26 PM SHOE CUTTER [facility] Blood Venipuncture / Unknown 08/26/2016 1:45 PM SHOE CUTTER 08/26/2016 1:51 PM SHOE CUTTER Keo Julien MD CHEMISTRY ORDERABLES [facility] CLIA# [id number] [address] [place] [address] documented in this encounter Visit Diagnoses Not on filedocumented in this encounter Administered Medications Inactive Administered Medications - up to 3 most recent administrations Medication Order MAR Action Action Date Dose Rate Site ursodiol (ACTIGALL) capsule 300 mg 300 mg, Oral, TWO TIMES DAILY, First dose on 08/26/16 at 1445, Until Discontinued, Routine Given 08/26/2016 3:32 PM SHOE CUTTER 300 mg documented in this encounter Active and Recently Administered Medications Times are shown in SHOE CUTTER. Scheduled Medication Order 08/24/2016 08/25/2016 08/26/2016 ursodiol (ACTIGALL) capsule 300 mg 300 mg, Oral, TWO TIMES DAILY, First dose on 08/26/16 at 1445, Until Discontinued, Routine 1532 (Given - Provid er: Melinda Sevilla RN) documented in this encounter Care Teams Gold Burnisher Relationship Specialty Start Date End Date Hilda Eden FNP [address] [place] [address] PCP - General NURSE PRACTITIONER 07/13/13 01/05/18 documented as of this encounter
--- OUTSIDE RECORDS SUMMARY | 2024-08-03 01:41 | XMS_ITS | Encounter Summary ---
Author Organization [facility] Address [address] [place] [address] Care Team Providers Care Floating Derrick Operator Name Role Phone Hilda Eden RADHA Primary Care Provider [phone] Reason for Visit * Auth/Cert Specialty Diagnoses / Procedures Referred By Reva holbroko Referred To Contact Obstetrics Diagnoses Flu St Ob Triage [address] [place] [address] Referral ID Status Reason Start Date Expiration Date Visits Re quested Visits Authorized [id number] 07/25/2016 08/25/2017 1 Encounter Details Date Type Department Care Team (Latest Contact Info) Description 07/24/2016 2:21 PM FLIGHT SURGEON - 07/24/2016 7:07 PM FLIGHT SURGEON Hospital Encounter [facility] OB Triage [address] [place] [address] [place] [address] [place] [address] Viral gastritis Discharge Disposition: Home or Self Care Social [...] Sign Reading Time Taken Comments Blood Pressure 135/81 07/24/2016 3:23 PM FLIGHT SURGEON Pulse 97 07/24/2016 3:23 PM FLIGHT SURGEON Temperature 36.2 ??C (97.1 ??F) 07/24/2016 3:23 PM CS T Respiratory Rate - - Oxygen Saturation - - Inhaled Oxygen Concentration - - Weight 107.3 kg (236 lb 8 oz) 07/24/2016 3:23 PM FLIGHT SURGEON Height 167.6 cm (5' 6 ) 07/24/2016 3:23 PM FLIGHT SURGEON Body Mass Index 38.17 07/24/2016 3:23 PM FLIGHT SURGEON documented in this encounter Discharge Instructions * Discharge Instructions* Shannon Merida RN - 07/24/2016 6:58 PM FLIGHT SURGEON Follow-up: Follow-up with your doctor at your [...] your home. Diet: Your diet is regular HT SURGEON documented in this encounter Medications at Time [...] as of this encounter Progress Notes * Shannon Merida RN - 07/24/2016 7:21 PM CST Pt discharged home with per orders. Pt given discharge instructions both written and verbally. Pt states she has no questions at this time. HT SURGEON documented in this encounter H&P Notes * Michelle Rodriguez, MEGGAN - 07/24/2016 3:36 PM CST OB H&P Chief Complaint: Upper respiratory infection; nausea and vomiting HPI: Vera Vitale is a 31 y.o. female 29w2d weeks gestation based on the Patient's last menstrual period was 06/15/2015. who presents to the OBT from home for evaluation of nausea, vomiting, and diarrhea that started a few days after completing a course of antibiotics for Strep throat(two days ago). She has a cough as well. Patient rates her GI discomfort at 10 on a scale of 1 to 10. She denies bleeding, loss of fluid, or uterine cramping. Patient reports normal movement. Her and her 5 year old have been having diarrhea as well today and yesterday. Her son was just started on different antibiotics today. States she has a 4 year history of diarrhea and has antoni GI doctor for this. There has been no conclusive diagnosis yet and they have tried 4 different meds including probiotics. Her primary truck dock material mover is Keo Julien MD. Current Problem List: 1. Recent strep throat 2. Chronic diarrhea OB History Para Term AB SAB TAB [...] SAB 2 SAB 2006 SAB 1 SAB 2005 SAB GYNHX/ Past Medical History Diagnosis Date ??? Anxiety Zoloft ??? Bipolar affective disorder ??? Depression bipolar ??? High cholesterol ??? MRSA (methicillin resistant Staphylococcus aureus) 08/2009 cysts on leg, never cultured-told it was staph and was given medication Past Surgical History Procedure Laterality Date ??? Hx ear surgery ??? Hx cholecystectomy 02/2010 ??? Pr delivery only 11/21/2010 SECTION performed by KEO JULIEN at [facility] L[facility] ??? Hchg dilitation and curettage 01/14/2014 ??? Pr lap,rmv adnexal structure N/A 08/06/2015 LEFT SALPINGECTOMY LAPAROSCOPIC FOR ECTOPIC performed by Ayde Judge MD at [facility] ??? Hx lymph node dissection 10/2014 armpit ??? Hx dilation and curettage 01/2014 per fertility MD Social History: Family History Problem Relation Age of Onset ??? Diabetes Father ??? Thyroid Disease Father ??? Hypertension Mother ??? Diabetes Brother Prescriptions Prior to Admission Medication Sig Dispense Refill Last Dose ??? aspirin (KESHA CHEWABLE) 81 mg Tablet, Chewable Take 81 mg by mouth daily. 07/23/2016 at 2100 ??? DIPHENHYDRAMINE HCL (UNISOM, DIPHENHYDRAMINE, ORAL) Take by mouth. 07/23/2016 at 2100 ??? sertraline (ZOLOFT) 50 mg tablet Take 50 mg by mouth daily. 07/23/2016 at 2100 ??? metFORMIN (GLUCOPHAGE) 500 mg tablet Take 500 mg by mouth 2 times daily with meals. 07/24/2016 at 0700 ??? L-methylfolate (DEPLIN) 15 mg Tablet Take 25 mg by mouth daily. 07/23/2016 at 2100 ??? vit-iron fumarate-FA ( VITAMIN) 27-0.8 mg Oral Tab Take 1 Tab by mouth daily. 07/23/2016 at 2100 ??? docusate sodium (COLACE) 100 mg capsule Take 1 Capsule (100 mg) by mouth 2 times daily. 60 Capsule 0 Unknown at Unknown time ? ? CYANOCOBALAMIN/FA/PYRIDOXINE (FABB ORAL) Take by mouth daily. > Month at Unknown time Allergies Allergen Reactions ??? Adhesive Other (See Comments) Skin irritation ??? Latex Rash The above has been reviewed with the patient & documented in the electronic record. Review of Systems Constitutional: tired HEENT: dry lips; +lymphadenopathy bilaterally submandibular and nuchal Respiratory: no tobacco use; no history of asthma. Cardiovascular: no cardiac history Gastrointestinal: some loose stool, + nausea, vomiting Genitourinary: No dysuria or frequency. Musculoskeletal: No edema Skin: Negative for rash Neurological: Negative for syncope or dizziness Hematological: Negative for bruising/bleeding easily Psychosocial: Here with her and her son Exam: Vitals: 07/24/16 1523 BP: 135/81 Patient Position (BP): Sitting Pulse: 97 Temp: 97.1 ??F (36.2 ??C) TempSrc: Oral Weight: 107.3 kg (236 lb 8 oz) Height: 5' 6 (1.676 m) Constitutional: alert, in some mild distress Lungs: Clear to auscultation HEENT: Moist lips and mouth Heart: RRate at 78 Abdomen: soft, gravid, no fundal tenderness, Musculoskeletal: No edema FHT: FHT baseline @ 145 with moderate variability TOCO: rare UC's Cervix: Dilation: Effacement: Station: Speculum: Pooling not done Fern not done Wet prep: not indicated Lab Review Labs: Results for orders placed or performed during the hospital encounter of 07/24/16 (from the past 24 hour(s)) CBC WITH DIFFERENTIAL Result Value Ref Range WBC 8.3 4.0 - 9.8 K/uL RBC 4.59 3.90 - 4.90 M/uL HEMOGLOBIN 13.3 11.8 - 14.8 g/dL HEMATOCRIT 38.3 35.5 - 44.0 % MCV 83.4 82.0 - 99.0 fL MCH 29.0 27.2 - 32.6 pg MCHC 34.7 31.5 - 35.5 g/dL RDW 13.5 11.5 - 14.5 % RDW-STDEV 40.9 37.1 - 48.7 fL PLATELETS 362 (H) 140 - 350 K/uL MPV 8.7 (L) 9.3 - 12.4 fL NEUTROPHILS 74 % LYMPHOCYTES 19 % MONOCYTES 6 % EOSINOPHILS 0 % BASOPHILS 0 % NEUTROPHIL ABSOLUTE 6.09 1.90 - 7.00 K/uL LYMPHOCYTE ABSOLUTE 1.58 0.70 - 4.50 K/uL MONOCYTE ABSOLUTE 0.50 0.10 - 1.30 K/uL EOSINOPHIL ABSOLUTE 0.03 0.00 - 0.70 K/uL BASOPHILS ABSOLUTE 0.02 0.00 - 0.20 K/uL IMMATURE GRANULOCYTES 1 % IMMATURE GRANULOCYTES ABSOLUTE 0.05 (H) 0.00 - 0.03 K/uL COMPREHENSIVE METABOLIC PANEL Result Value Ref Range SODIUM 140 136 - 145 mmol/L POTASSIUM 3.5 3.5 - 5.0 mmol/L CHLORIDE 101 98 - 107 mmol/L CO2 21 (L) 22 - 29 mmol/L CALCIUM 10.6 (H) 8.6 - 10.2 mg/dL BUN 7 6 - 20 mg/dL CREATININE 0.48 (L) 0.51 - 0.95 mg/dL GLUCOSE 81 74 - 99 mg/dL TOTAL PROTEIN 7.6 6.7 - 8.6 g/dL ALBUMIN 4.0 3.5 - 5.2 g/dL BILIRUBIN TOTAL 0.3 0.3 - 1.2 mg/dL ALKALINE PHOSPHATASE 225 (H) 35 - 104 U/L AST 32 <33 U/L ALT 38 (H) <34 U/L GFR >60 >=60 mL/min/1.73 sq meter GFR, >60 >=60 mL/min/1.73 sq meter ANION GAP 18 (H) 8 - 16 mmol/L URINALYSIS WITH REFLEX CULTURE Result Value Ref Range COLOR UA Dark Yellow Pale to Dark Yellow CLARITY UA Cloudy (A) Clear SPECIFIC GRAVITY UA 1.021 PH UA 6.0 5.0 - 8.0 LEUKOCYTE ESTERASE UA 3+ (A) Negative NITRITE UA Negative Negative PROTEIN UA 1+ (A) Negative GLUCOSE UA Negative Negative KETONES UA Trace (A) Negative UROBILINOGEN UA Normal <2.0 mg/dL BILIRUBIN UA Negative Negative BLOOD UA Negative Negative WBC UA 11-25 (A) 0 - 2 /hpf RBC UA 3-5 (A) 0 - 2 /hpf BACTERIA UA 1+ (A) Negative /hpf EPITHELIAL CELLS, URINE >25 (A) 0 - 5 /hpf URIC ACID CRYSTAL Present (A) Absent CALCIUM OXALATE, URINE Present (A) Absent COMMENT, URINE Ascorbic Acid:40 mg/dL ++ INFLUENZA VIRUS A AND B DETECTION Result Value Ref Range INFLUENZA A AG Not Detected Not Detected INFLUENZA B AG Not Detected Not Detected Assessment: 1. 29w2d weeks gestation 2. Reassuring tracing 3. Viral gastritis with mild dehydration 4. Low suspicion for PTL Plan: Observe in OBT Orders Placed This Encounter ??? INFLUENZA VIRUS A AND B DETECTION ??? URINE CULTURE ??? CLOSTRIDIUM DIFFICILE TOXIN ??? CBC WITH DIFFERENTIAL ??? COMPREHENSIVE METABOLIC PANEL ??? URINALYSIS WITH REFLEX CULTURE ??? AMYLASE ??? LIPASE ??? DIET NPO Strict ??? Vital Signs per Facility Department Guidelines ??? Notify Physician - Blood Pressure Changes ??? Education, Smoking Cessation and Second Hand Smoke Avoidance ??? Nursing Communication - IV Flush Panel ??? BEDREST With Bathroom Privileges ??? Electronic Monitoring ??? aspirin (KESHA CHEWABLE) 81 mg Tablet, Chewable ??? DIPHENHYDRAMINE HCL (UNISOM, DIPHENHYDRAMINE, ORAL) ??? lactated ringers solution 1,000 mL ??? ondansetron (ZOFRAN) 4 mg/2 mL injection 8 mg 1800: Nausea mostly gone. Willing to try something to eat and drink. Given apple juice, ice, and mac cracker. Amylase and lipase still pending. 1840: Amylase and lipase are normal. Has tolerated apple juice and mac crackers. OK to go home. Spoke to Dr. Julien: OK to be discharged home. To keep appt on 07/27 with him. HT SURGEON documented in this encounter Plan of Treatment Upcoming Encounters Date Type Department Care Team (Late st Contact Info) Description 10/14/2024 11:00 AM FLIGHT SURGEON Office Visit [facility] Oncology and Hematology - [place] [address] [place] [address] [facility] [address] [place] [address] Ubaldo Cardenas MD [address] [facility] [address] [place] [address] documented as of this encounter Procedures Procedure Name Priority Date/Time Associated Diagnosis Comments C. DIFFICILE DETECTION Stat 6 5:10 PM FLIGHT SURGEON LIPASE Stat 07/24/2016 5:09 PM FLIGHT SURGEON AMYLASE Stat 07/24/2016 5:09 PM FLIGHT SURGEON URINALYSIS WITH REFLEX CULTURE Stat 07/24/2016 3:42 PM FLIGHT SURGEON INFLUENZA VIRUS A AND B, ANTIGEN DETECTION Stat 07/24/2016 3:42 PM FLIGHT SURGEON CBC WITH DIFFERENTIAL Stat 07/24/2016 3:42 PM FLIGHT SURGEON URINE CULTURE Routine 07/24/2016 3:42 PM FLIGHT SURGEON COMPREHENSIVE METABOLIC PANEL Stat 07/24/2016 3:42 PM FLIGHT SURGEON documented in this encounter Results * CLOSTRIDIUM DIFFICILE TOXIN (07/24/2016 5:10 PM FLIGHT SURGEON) Pathologist [facility] TOXIGENIC C DIFFICILE Not Detected Not Detected 07/24/2016 6:49 PM FLIGHT SURGEON [facility] Stool STOOL SPECIMEN / Unknown Collection / Unknown 07/24/2016 5:10 PM FLIGHT SURGEON 07/24/2016 5:27 PM FLIGHT SURGEON Narrative [facility] - 07/24/2016 6:49 PM FLIGHT SURGEON This assay is used to detect Clostridium difficile toxin B gene sequences in unformed stool specimens. ??If toxin is not detected, but clinical suspicion is high please consult ID for consultation and potential repeat testing. ??This test should not be used as a test of cure. Michelle Rodriguez CNM MICROBIOLOGY - GENERAL ORDERABLES [facility] CLIA# [id number] [address] [facility] [place] [address] * LIPASE (07/24/2016 5:09 PM FLIGHT SURGEON) [facility] LIPASE 54 13 - 60 U/L 07/24/2016 6:58 PM FLIGHT SURGEON [facility] Blood Collection / Unknown 07/24/2016 5:09 PM FLIGHT SURGEON 07/24/2016 5:28 PM FLIGHT SURGEON Michelle Rodriguez CNM CHEMISTRY ORDE RABLES [facility] CLIA# [id number] [address] [place] [address] * AMYLASE (07/24/2016 5:09 PM FLIGHT SURGEON) [facility] AMYLASE 41.0 28.0 - 100.0 U/L 07/24/2016 6:58 PM FLIGHT SURGEON [facility] Blood Collection / Unknown 07/24/2016 5:09 PM FLIGHT SURGEON 07/24/2016 5:28 PM FLIGHT SURGEON Michelle Rodriguez MEGGAN CHEMISTRY ORDE RABLES Performing Organization Address [facility] Co de Phone Number [facility] CLIA# [id number] [address] [facility] [address] [place] [address] * (ABNORMAL) URINE CULTURE (07/24/2016 3:42 PM FLIGHT SURGEON) [facility] CULTURE <10,000 cfu/mL Streptococcus group B(A) 07/25/2016 2:13 PM FLIGHT SURGEON [facility] Comment:NOTE: In wo men, recovery of Group B Streptococcus may be significant. However, in non- women, recovery in small quantities suggests contamination with mela urethral stephanie. CULTURE 10,000-50,000 cfu/mL Normal urethral stephanie 07/25/2016 2:13 PM FLIGHT SURGEON [facility] Urine URINE SPECIMEN OBTAINED BY CLEAN CATCH PROCEDURE / Unknown Collection / Unknown 07/24/2016 3:42 PM FLIGHT SURGEON 07/24/2016 4:17 PM FLIGHT SURGEON Michelle Bales Jennifer BRODERICK MICROBIOLOGY - GENERAL ORDERABLES Performing Organization Address [facility] Co de Phone Number [facility] CLIA# [id number] [address] [place] [address] * INFLUENZA VIRUS A AND B DETECTION (07/24/2016 3:42 PM FLIGHT SURGEON) [facility] INFLUENZA A AG Not Detected Not Detected 07/24/2016 4:27 PM FLIGHT SURGEON [facility] INFLUENZA B AG Not Detected Not Detected 07/24/2016 4:27 PM FLIGHT SURGEON [facility] Upper respiratory specimen (specimen) ENTIRE NASOPHARYNX / Unknown Collection / Unknown 07/24/2016 3:42 PM FLIGHT SURGEON 07/24/2016 4:00 PM FLIGHT SURGEON Critical access hospital LABORATORY SERVICES - . [facility] - 07/24/2016 4:27 PM FLIGHT SURGEON Negative results do not rule out infection. Consider further testing if clinically indicated. Michelle Rodriguez [facility] MICROBIOLOGY - GENERAL ORDERABLES [facility] LABORATORY SERVICES - [facility] CLIA# [id number] [address] [facility] [place] [address] * (ABNORMAL) URINALYSIS WITH REFLEX CULTURE (07/24/2016 3:42 PM FLIGHT SURGEON) COLOR UA Dark Yellow Pale to Dark Yellow 07/24/2016 4:17 PM [facility] [employer] LABORATORY [facility] - [facility] CLARITY UA Cloudy(A) Clear 07/24/2016 4:17 PM [facility] [employer] [facility] SPECIFIC GRAVITY UA 1.021 07/24/2016 4:17 PM [facility] [employer] [facility] PH UA 6.0 5.0 - 8.0 07/24/2016 4:17 PM [facility] [employer] LABORATORY [facility] - [facility] LEUKOCYTE ESTERASE UA 3+(A) Negative 07/24/2016 4:17 PM [facility] [employer] [facility] NITRITE UA Negative Negative 07/24/2016 4:17 PM [facility] [employer] [facility] PROTEIN UA 1+(A) Negative 07/24/2016 4:17 PM [facility] [employer] [facility] GLUCOSE UA Negative Negative 07/24/2016 4:17 PM [facility] [employer] [facility] KETONES UA Trace(A) Negative 07/24/2016 4:17 PM [facility] [employer] [facility] UROBILINOGEN UA Normal <2.0 mg/dL 6 4:17 PM [facility] [employer] [facility] - [facility] BILIRUBIN UA Negative Negative 07/24/2016 4:17 PM [facility] [employer] [facility] BLOOD UA Negative Negative 07/24/2016 4:17 PM [facility] [employer] LABORATORY [facility] WBC UA 11-25(A) 0 - 2 /hpf 07/24/2016 4:17 PM [facility] [employer] [facility] RBC UA 3-5(A) 0 - 2 /hpf 07/24/2016 4:17 PM [facility] [employer] [facility] - . [facility] BACTERIA UA 1+(A) Negative /hpf 07/24/2016 4:17 PM [facility] [employer] [facility] EPITHELIAL CELLS, URINE >25(A) 0 - 5 /hpf 07/24/2016 4:17 PM [facility] [employer] [facility] URIC ACID CRYSTAL Present(A) Absent 07/24/2016 4:17 PM [facility] [employer] [facility] - [facility] CALCIUM OXALATE, URINE Present(A) Absent 07/24/2016 4:17 PM [facility] [employer] [facility] - . [facility] COMMENT, URINE Ascorbic Acid:40 mg/dL ++ 07/24/2016 4:17 PM [facility] [employer] [facility] Urine URINE SPECIMEN OBTAINED BY CLEAN CATCH PROCEDURE / Unknown Collection / Unknown 07/24/2016 3:42 PM FLIGHT SURGEON 07/24/2016 3:59 PM [facility] [employer] [facility] - 07/24/2016 4:17 PM FLIGHT SURGEON Based on results, a urine culture has been reflexed. Michelle Rodriguez [facility] URINE ORDERABL ES [facility] [employer] [facility]# [id number] [address] [place] [address] [place] [address] * (ABNORMAL) COMPREHENSIVE METABOLIC PANEL (07/24/2016 3:42 PM FLIGHT SURGEON) SODIUM 140 136 - 145 mmol/L 07/24/2016 5:23 PM [facility] [employer] [facility] POTASSIUM 3.5 3.5 - 5.0 mmol/L 07/24/2016 5:23 PM [facility] [employer] [facility] CHLORIDE 101 98 - 107 mmol/L 07/24/2016 5:23 PM [facility] [employer] [facility]. [facility] CO2 21(L) 22 - 29 mmol/L 07/24/2016 5:23 PM [facility] [employer] [facility] CALCIUM 10.6(H) 8.6 - 10.2 mg/dL 07/24/2016 5:23 PM [facility] [employer] LABORATORY SERVICES - . [facility] BUN 7 6 - 20 mg/dL 07/24/2016 5:23 PM FLIGHT SURGEON [employer] LABORATORY SERVICES - . [facility] CREATININE 0.48(L) 0.51 - 0.95 mg/dL 07/24/2016 5:23 PM [facility] [employer] LABORATORY SERVICES - [facility] GLUCOSE 81 74 - 99 mg/dL 07/24/2016 5:23 PM FLIGHT SURGEON [employer] LABORATORY SERVICES - . [facility] TOTAL PROTEIN 7.6 6.7 - 8.6 g/dL 07/24/2016 5:23 PM FLIGHT SURGEON [employer] [facility]AT[facility] ALBUMIN 4.0 3.5 - 5.2 g/dL 07/24/2016 5:23 PM [employer] LABORATORY SERVICES - . [facility] BILIRUBIN TOTAL 0.3 0.3 - 1.2 mg/dL 07/24/2016 5:23 PM [facility] [employer] LABORATORY SERVICES - . [facility] ALKALINE PHOSPHATASE 225(H) 35 - 104 U/L 07/24/2016 5:23 PM [employer] LABORATORY SERVICES - . [facility] AST 32 <33 U/L 07/24/2016 5:23 PM [employer] LABORATORY SERVICES - . [facility] ALT 38(H) <34 U/L 07/24/2016 5:23 PM [employer] LABORATORY SERVICES - [facility] GFR >60 >=60 mL/min/1.7 3 sq meter 07/24/2016 5:23 PM [employer] LABORATORY SERVICES - [facility] Comment: eGFR has not been validated [...] GFR, >60 >=60 mL/min/1.7 3 sq meter 07/24/2016 5:23 PM [employer] LABORATORY SERVICES - [facility] ANION GAP 18(H) 8 - 16 mmol/L 07/24/2016 5:23 PM [employer] LABORATORY SERVICES [facility] Blood Venipuncture / Unknown 07/24/2016 3:42 PM FLIGHT SURGEON 07/24/2016 4:00 PM FLIGHT SURGEON Michelle Bales Rodriguez [facility] CHEMISTRY [facility] LABORATORY SERVICES - [facility] CLBRAN# [id number] [address] [place] [address] * (ABNORMAL) CBC WITH DIFFERENTIAL (07/24/2016 3:42 PM FLIGHT SURGEON) [facility] WBC 8.3 4.0 - 9.8 K/uL 07/24/2016 4:09 PM [facility] [employer] LABORATORY SERVICES - [facility] RBC 4.59 3.90 - 4.90 M/uL 07/24/2016 4:09 PM [facility] [employer] LABORATORY SERVICES - . [facility] HEMOGLOBIN 13.3 11.8 - 14.8 g/dL 07/24/2016 4:09 PM [facility] [employer] LABORATORY SERVICES - . [facility] HEMATOCRIT 38.3 35.5 - 44.0 % 07/24/2016 4:09 PM [facility] [employer] LABORATORY SERVICES - . [facility] MCV 83.4 82.0 - 99.0 fL 07/24/2016 4:09 PM [facility] [employer] LABORATORY SERVICES - . [facility] MCH 29.0 27.2 - 32.6 pg 07/24/2016 4:09 PM FLIGHT SURGEON [employer] LABORATORY SERVICES - . [facility] MCHC 34.7 31.5 - 35.5 g/dL 07/24/2016 4:09 PM FLIGHT SURGEON [employer] LABORATORY SERVICES - . [facility] RDW 13.5 11.5 - 14.5 % 07/24/2016 4:09 PM FLIGHT SURGEON [employer] LABORATORY SERVICES - . [facility] RDW-STDEV 40.9 37.1 - 48.7 fL 07/24/2016 4:09 PM FLIGHT SURGEON [employer] [facility]ATORY SERVICES - [facility] PLATELETS 362(H) 140 - 350 K/uL 07/24/2016 4:09 PM FLIGHT SURGEON [employer] LABORATORY SERVICES - . [facility] MPV 8.7(L) 9.3 - 12.4 fL 07/24/2016 4:09 PM [employer] LABORATORY SERVICES - [facility] NEUTROPHILS 74 % 07/24/2016 4:09 PM [employer] [facility]ATORY [facility] LYMPHOCYTES 19 % 07/24/2016 4:09 PM [facility] MONOCYTES 6 % 07/24/2016 4:09 PM [facility] EOSINOPHILS 0 % 07/24/2016 4:09 PM [facility] - [facility] BASOPHILS 0 % 07/24/2016 4:09 PM [facility] NEUTROPHIL ABSOLUTE 6.09 1.90 - 7.00 K/uL 07/24/2016 4:09 PM [facility] LYMPHOCYTE ABSOLUTE 1.58 0.70 - 4.50 K/uL 07/24/2016 4:09 PM [facility] - . [facility] MONOCYTE ABSOLUTE 0.50 0.10 - 1.30 K/uL 07/24/2016 4:09 PM [facility] EOSINOPHIL ABSOLUTE 0.03 0.00 - 0.70 K/uL 07/24/2016 4:09 PM [facility] - . [facility] BASOPHILS ABSOLUTE 0.02 0.00 - 0.20 K/uL 07/24/2016 4:09 PM [facility] IMMATURE GRANULOCYTES 1 % 07/24/2016 4:09 PM [facility] LABORATORY [facility] - . [facility] Comment:IG (Immature Granulo cyte) count includes Metamyelocytes, Myelocytes, and Promyelocytes IMMATURE GRANULOCYTES ABSOLUTE 0.05(H) 0.00 - 0.03 K/uL 07/24/2016 4:09 PM [facility] Blood Venipuncture / Unknown 07/24/2016 3:42 PM FLIGHT SURGEON 07/24/2016 4:00 PM FLIGHT SURGEON Michelle Rodriguez [facility] HEMATOLOGY ORD ERABLES [facility]# [id number] [address] [place] [address] documented in this encounter Visit Diagnoses Diagnosis Viral gastritis documented in this encounter Administered Medications Inactive Administered Medications - up to 3 most recent administrations Medication Order MAR Action Action Date Dose Rate Site lactated ringers solution 1,000 mL IV, at 1,000 mL/hr, ONE TIME ONLY, 1 dose, On Sun07/24/16 at 1545, Stat New Bag 07/24/2016 5:02 PM FLIGHT SURGEON 1,000 mL 1000 mL/ hr ondansetron (ZOFRAN) 4 mg/2 mL injection 8 mg 8 mg, IV, ONE TIME ONLY, 1 dose, On Sun07/24/16 at 1630, Stat Given 07/24/2016 5:03 PM FLIGHT SURGEON 8 mg documented in this encounter Active and Recently Administered Medications Times are shown in FLIGHT SURGEON. Scheduled Medication Order 07/22/2016 07/23/2016 07/24/2016 lactated ringers solution 1,000 mL (COMPLETED) IV, at 1,000 mL/hr, ONE TIME ONLY, 1 dose, On Sun07/24/16 at 1545, Stat 1702 (New Bag - Prov ider: Shannon Merida RN)1740 (Stopped - Provider: Shannon Merida RN) ondansetron (ZOFRAN) 4 mg/2 mL injection 8 mg (COMPLETED) 8 mg, IV, ONE TIME ONLY, 1 dose, On Sun07/24/16 at 1630, Stat 1703 (Given - Provid er: Shannon Merida RN) documented in this encounter Care Teams Floating Derrick Operator Relationship Specialty Start Date End Date Hilda Eden FNP [address] [place] [id number] PCP - General NURSE PRACTITIONER 07/13/13 01/05/18 documented as of this encounter
--- OUTSIDE RECORDS SUMMARY | 2024-08-03 01:41 | XMS_ITS | Encounter Summary ---
Author Organization [employer] Address [address] [place] [address] Care Team Providers Care Grape Pruner Name Role Phone Hilda Eden RADHA Primary Care Provider [phone] Reason for Referral * Outpatient Services (Routine) [...] Procedures US OB FOLLOW UP PER FETUS Carolina Cortez MD NO ADDRESS ON FILE [facility] [address] [place] [address] Referral ID Status Reason Start Date Expiration Date Visits Re quested Visits Authorized [id number] Closed 07/25/2016 08/25/2017 1 1 DDLE TRUCK OPERATOR Reason for Visit * Outpatient Services (Routine) [...] Procedures US OB FOLLOW UP PER FETUS Carolina Cortez MD NO ADDRESS ON FILE [facility] [address] [place] [address] Referral ID Status Reason Start Date Expiration Date Visits Re quested Visits Authorized [id number] Closed 07/25/2016 08/25/2017 1 1 Encounter Details Date Type Department Care Team (Latest Contact Info) Description 08/31/2016 10:45 AM STRADDLE TRUCK OPERATOR - 08/31/2016 11:59 PM [facility] Hospital Encounter [facility] [place] [address] [place] [address] Carolina Cortez MD NO ADDRESS ON FILE Discharge Disposition: Home [...] st Contact Info) Description 10/14/2024 11:00 AM STRADDLE TRUCK OPERATOR Office Visit [facility] Oncology and Hematology - Alirio [address] [facility] [[email or web address] [address] [place] [address] Ubaldo Cardenas MD [address] [facility] [address] [place] [address] documented as of this encounter Procedures Procedure Name Priority Date/Time Associated Diagnosis Comments US OB FOLLOW UP PER FETUS Routine 08/31/2016 12:54 PM STRADDLE TRUCK OPERATOR Maternal morbid obesity in second trimester, antepartum Morbid obesity, unspecified obesity type care of habitual aborter in second trimester Maternal care due to low transverse uterine scar from previous delivery Supervision of with history of pre-term labor in second trimester with mental disorders, second trimester documented in this encounter Results * US OB FOLLOW UP PER FETUS (08/31/2016 12:54 PM STRADDLE TRUCK OPERATOR) Anatomical Region Laterality Modality Pelvis Ultrasound 08/31/2016 11:1 4 AM STRADDLE TRUCK OPERATOR Impressions 08/31/2016 12:17 PM STRADDLE TRUCK OPERATOR IMPRESSION ----- Single intrauterine Interval growth is normal overall at 56%. Normal AFV movement is noted MFM consult dictated. A follow up has been scheduled for twice weekly testing. Delivery is recommended between 36-37 weeks. Risks of late delivery complications were reviewed with the patient. Thank you for allowing us to participate in the care of your patient. Narrative 08/31/2016 12:17 PM STRADDLE TRUCK OPERATOR Follow Up Basic ----- Pat. Name: VERA PARKER Study Date: 08/31/2016 11:14am Pat. 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 @35 weeks due to pre-eclampsia Maternal Obesity (bmi>40) Maternal Mental Disorder ? Anxiety/Depression CODING ----- Diagnosis ? O26.23: care for patient with recurrent loss. ?O34.21: Maternal care for scar from previous delivery. ?O09.213: Supervision of with history of pre-term labor. ?O99.213: Obesity complicating . ?E66.01: Morbid (severe) obesity due to excess calories. ?O99.343: Other mental disorders complicating . ?Z3A.34: Weeks Gestation of . Procedures ?60570: OB follow-up/Target per fetus. HISTORY ----- OB History ?: 12. Para: 1. ?A10L1. ?Miscarriages: 9. Ectopic: 1. Medication ?Ursodiol : 300mg TID. MATERNAL ASSESSMENT ----- Physical Exam ? Weight 105 kg. BMI 37.46 kg/m?. Blood pressure 127 / 71 mmHg. Heart rate 85 bpm. METHOD ----- Transabdominal ultrasound examination. Suboptimal view. ----- Easley . Number of fetuses: 1. DATING ----- GA by stated dating 34 w + 5 d MINDY by stated dating : 10/07/2016 Ultrasound examination on: 08/31/2016 GA by U/S based upon: AC, BPD, Femur, HC GA by U/S 35 w + 5 d MINDY by U/S: 09/30/2016 Assigned: Dating performed on 07/25/2016, based on the stated dating Assigned GA 34 w + 5 d Assigned MINDY: 10/07/2016 BIOMETRY ----- Main Biometry: BPD ?85.3 ? mm ?41% ? 34w 3d ? Hadlock HC ? 336.7 ?mm ?95% ? 38w 4d ? Hadlock AC ? 313.3 ?mm ?72% ? 35w 2d ? Hadlock Femur ?67.2 ? mm ?37% ? 34w 4d ? Hadlock Weight Calculation: EFW ?2,649 ?g ? 56% ?Terell EFW (lb,oz) ?5 lb ? oz ? 13 Calculated by ?Hadlock ([id number]) Proportionality Ratios: HC / AC ?1.07 ? 73% ?Nicolaides FL / BPD ? 0.79 ? FL / AC ?0.21 ? GENERAL EVALUATION ----- Cardiac activity: present. FHR 134 bpm. movements: visualized. Presentation: breech. Placenta: posterior. Umbilical cord: 3 vessel cord. Amniotic fluid: MVP 4.5 cm. NATHAN 12.2 cm. Q1 2.4 cm, Q2 2.2 cm, Q3 3.1 cm, Q4 4.5 cm. ANATOMY ----- The following structures were visualized with normal appearance: Head ?Head shape and size appear normal. Brain ? Midline falx. Thalami. Cavum septi pellucidi. Face ?Nose. Lips. Spine ? Cervical spine. Thoracic spine. Lumbar spine. Stomach Kidneys Bladder Upper extrem. ? Right upper extremity. Left upper extremity. Lower extrem. ? Right lower extremity. The following structures could not be adequately visualized: Spine ? Sacral spine. The following structures were visualized: Upper extrem. ? Right hand. Left hand. Other findings: Brain ? previously seen. Abdominal wall ?previously seen. Lower extrem. ? Right foot: previously seen. Left lower extremity: previously seen. Left foot: previously seen. Procedure Note RooseveltKadenDO - 08/31/2016 Follow Up Basic ----- Pat. Name:Michael PARKER Date:08/31/2016 11:14am Pat. 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 O34.21: Maternal care for scar from previouscesarean delivery. O09.213: Supervision of with history ofpre-term labor. O99.213: Obesity complicating . E66.01: Morbid (severe) obesity due to excesscalories. O99.343: Other mental disorders complicatingpregnancy. Z3A.34: Weeks Gestation of . Procedures [id number]: OB follow-up/Target per fetus. HISTORY ----- OB History : 12. Para: 1. A10L1. Miscarriages: 9. Ectopic: 1. Medication Ursodiol : 300mg TID. MATERNAL ASSESSMENT ----- Physical Exam Weight 105 kg. BMI 37.46 kg/m?. Blood pressure 127/ 71 mmHg. Heart rate 85 bpm. METHOD ----- Transabdominal ultrasound examination. Suboptimal view. ----- Easley . Number of fetuses: 1. DATING ----- GA by stated dating 34 w + 5 d MINDY by stated dating :10/07/2016 Ultrasound examination on:08/31/2016 GA by U/S based upon:AC, BPD, Femur, HC GA by U/S35 w + 5 d MINDY by U/S:09/30/2016 Assigned:Dating performed on 07/25/2016, based on the stated dating Assigned GA34 w + 5 d Assigned MINDY:10/07/2016 BIOMETRY ----- Main Biometry: BPD 85.3 mm 41% 34w 3dHadlock HC 336.7 mm 95% 38w 4dHadlock AC 313.3 mm 72% 35w 2dHadlock Femur 67.2 mm 37% 34w 4dHadlock Weight Calculation: EFW 2,649 g 56%Terell EFW (lb,oz) 5 lb oz 13 Calculated by Arun ([id number]) Proportionality Ratios: HC / AC 1.07 73%Nicolaides FL / BPD 0.79 FL / AC 0.21 GENERAL EVALUATION ----- Cardiac activity: present. FHR 134 bpm. movements: visualized. Presentation: breech. Placenta: posterior. Umbilical cord: 3 vessel cord. Amniotic fluid: MVP 4.5 cm. NATHAN 12.2 cm. Q1 2.4 cm, Q2 2.2 cm, Q3 3.1 cm,Q4 4.5 cm. ANATOMY ----- The following structures were visualized with normal appearance: Head Head shape and size appear normal. Brain Midline falx. Thalami. Cavum septi pellucidi. Face Nose. Lips. Spine Cervical spine. Thoracic spine. Lumbar spine. Stomach Kidneys Bladder Upper extrem. Right upper extremity. Left upper extremity. Lower extrem. Right lower extremity. The following structures could not be adequately visualized: Spine Sacral spine. The following structures were visualized: Upper extrem. Right hand. Left hand. Other findings: Brain previously seen. Abdominal wall previously seen. Lower extrem. Right foot: previously seen. Left lower extremity:previously seen. Left foot: previously seen. IMPRESSION IMPRESSION ----- Single intrauterine Interval growth is normal overall at 56%. Normal AFV movement is noted MFM consult dictated. A follow up has been scheduled for twice weekly testing. Delivery is recommended between 36-37 weeks. Risks of late pretermdelivery complications were reviewed with the patient. Thank you for allowing us to participate in the care of your patient. Carolina Cortez MD US ORDERABLES documented in this encounter [...] trimester documented in this encounter Care Teams Grape Pruner Relationship Specialty Start Date End Date Hilda Eden FNP [address] [place] [address] PCP - General NURSE PRACTITIONER 07/13/13 01/05/18 documented as of this encounter
--- OUTSIDE RECORDS SUMMARY | 2024-08-03 01:41 | XMS_ITS | Encounter Summary ---
Author Organization [facility] Address [address] [place] [address] Care Team Providers Care Chip Person Name Role Phone Hilda Eden RADHA Primary Care Provider [phone] Reason for Visit * Auth/Cert Specialty Diagnoses / Procedures Referred By Reva t Referred To Contact Obstetrics Diagnoses EDC 10/07 Cholestasis [facility] approved Primary Procedures SECTION [facility] [address] [place] [address] Referral ID Status Reason Start Date Expiration Date Visits Re quested Visits Authorized [id number] 09/18/2016 10/19/2017 1 Encounter Details Date Type Department Care Team (Late st Contact Info) Description 09/13/2016 12:10 PM BRUSHER OPERATOR Anesthesia Event [facility] & [address] [place] [address] Filomena Ruelas MD [address] [facility] [address] [place] [address] Isaias Oleary DO NO ADDRESS ON FILE Anesthesia Record Procedure Summary Procedure Name Responsible Anesthesiologist Anesthesia Start Time Anesthesia Stop Time SECTION (Abdomen) Filomena Ruelas MD 09/13/16 1210 09/13/16 1339 Events Date Time Event Comment 09/13/2016 1145 1210 An Start 1210 AN Equip Check Anesthesia eq uipment and materials checked in accordance with local policy. 1210 Start Out of OR Vitals 1212 Pre-Induction Immediate pre- induction anesthetic assessment performed. Vital signs as noted on graphic. 1237 Anesthesia Ready 1243 Quick Note To Or 'A' with monitors on 1247 Quick Note Pt. Very anxiou s, panic attack Dr. Quiñonez notified 1250 Stop Out of OR Vitals 1250 An Start Data 1256 Quick Note Pt. Comfortable for surgery NICU present 1258 Quick Note Adequate level of surgical anesthesia obtained (no pain or discomfort) but patient is anxious and has a history of bipolar/anxiety. Fentanyl given as per anesthesia record. - Filomena Petit M.D. 1312 Quick Note In OR after del charles, patient stable and uterine tone adequate. - Filomena Petit M.D. 1336 an stop data 1339 An Stop 1339 Quick Note Present on labo r and to ensure safe and adequate anesthesia for surgery, stable physiology after delivery, and uneventful transfer to recovery area. - Filomena Petit M.D. Meds Name Total metoclopramide (REGLAN) 5 mg/mL injectio n 10 mg famotidine PF (PEPCID) 20mg/2 mL injecti on 20 mg ondansetron (ZOFRAN) 4??mg/2 mL injectio n 4 mg bupivacaine 0.75% in dextrose 8.25% PF ( MARCAINE SPINAL) injection solution 1.2 mL lidocaine 2%-EPINEPHrine (XYLOCAINE MPF- EPIE) 1:200,000 injection 5 mL phenylephrine in NS (PF) 0.5 mg/5 mL syr chato 500 mcg fentaNYL PF (SUBLIMAZE) 15 mcg/0.3 mL sy ringe 15 mcg 15 mcg citric acid-sodium citrate solution (BIC ITRA) solution 30 mL fentaNYL (SUBLIMAZE) PF 50??mcg/mL injec tion 100 mcg lactated ringers solution 900 mL oxytocin in lactated ringers (PITOCIN) 2 0 unit/1,000 mL infusion Solution 400 mL * Agents Name O2 * Blood No blood administrations on file. Lines, Drains, and Airways Type Details Placement Removal Peripheral IV Pre-Hospital Start: No; Orientation: Left; Location: Wrist; Device: Angiocath; Gauge: 18 gauge; Needle Length: 1.25 in length; Insertion Attempts: 3; Patient Tolerance: tolerated well; Removal Indication: no longer indicated; Removal Interventions: pressure dressing, catheter intact, direct pressure 09/13/16 1120 by Sadia Waldron RN 09/14/16 1925 by Aminah Champion RN Epidural Catheter Tip Intact: Yes 09/13/16 1215 by Inna Boyer, DATA OFFICER 09/14/16 0000 by Isaias Oleary DO Retired Urethral Catheter 09/13/16; 1235; No; Indwelling double lumen catheter; latex; 18 Fr; in place; 1; 10; 10; 09/14/16; 1032 09/13/16 1235 by Sadia Waldron RN 09/14/16 1032 by Tricia Swain RN Adult Incision 09/13/16; 1323; surgical incision; other (comment); abdomen; 09/16/16; 2332 09/13/16 1323 by Genna Landin RN 09/16/16 2332 by PROVIDER, DISCHARGE PATIENT documented in this encounter Social History Tobacco [...] Sign Reading Time Taken Comments Blood Pressure 104/51 09/13/2016 12:42 PM BRUSHER OPERATOR Pulse 94 09/13/2016 12:43 PM BRUSHER OPERATOR Temperature - - Respiratory Rate - - Oxygen Saturation 99% 09/13/2016 12:43 PM BRUSHER OPERATOR Inhaled Oxygen Concentration - - Weight - - Height - - Body Mass Index - - documented in this encounter OR Notes * Anesthesia Postprocedure Evaluation - Filomena Ruelas MD - 09/13/2016 6:39 PM CST OB Anesthesia Recovery Room Postanesthesia Evaluation Including [facility] Modified Joan Score Patient seen and evaluated: RESPIRATORY FUNCTION: Respiration: able to breath and cough freely (09/13/16 1430) O2 Saturation: able to maintain O2 saturation greater than 92% on room air (09/13/16 1430) Resp: 20 (09/13/161729)SpO2: 97 % (09/13/161629) CARDIOVASCULAR FUNCTION: Heart Rate: 70 bpm (09/13/161429) BP: 127/68 (09/13/161729) Circulation: BP within 20% of preanesthetic level (09/13/161429) MENTAL STATUS, NEURO, ACTIVITY: Consciousness: fully awake (09/13/161429) Activity: able to move 4 extremities voluntarily or on command (09/13/161429) Ambulation: able to stand up and walk straight, on ordered bedrest, or performing at patient's prior level of function (09/13/161429) TEMPERATURE: Temp: 36.7 ??C (09/13/161729) PAIN: Pain Rating: Rest: 2 (09/13/161729) Presence of Pain: complains of pain/discomfort (09/13/161729) Pain: pain requiring parenteral medication (09/13/161429) NAUSEA AND VOMITING: Fasting/Feeding: able to drink fluids, ice chips or NPO (09/13/161429) POSTOPERATIVE HYDRATION: Urine Output: has voided, adequate urine output per device, or not applicable (09/13/161429) WOUND: Dressing: dry and clean or not applicable (09/13/161429) [facility]cy Modified Joan Score: Score: 18 (09/13/161429) COMMENTS: Patient participated in evaluation: yes Anesthetic complications: no Filomena Petit MD HER OPERATOR * Anesthesia Handoff - Inna Boyer CRNA - 09/13/2016 1:39 PM CST Post-Anesthetic transfer of care report elements to appropriate post-anesthesia recovery environment completed in accordance with procedure. I completed my handoff to the receiving nurse during which we: 1. Identified the patient 2. Identified the responsible provider 3. Reviewed the pertinent medical history 4. Discussed the surgical course 5. Reviewed intra-op anesthesia management and issues during anesthesia 6. Set expectations for post-procedure period 7. Allowed opportunity for questions and acknowledgement of understanding. Vital Signs: BP: 107/71 (09/13/2016 1:37 PM) Pulse: 86 (09/13/2016 1:37 PM) Heart Rate: 94 bpm (09/13/2016 12:43 PM) Temp: 36.4 ??C (09/13/2016 1:37 PM) Resp: 16 (09/13/2016 1:37 PM) SpO2: 99 % (09/13/2016 1:37 PM) 1:39 PM Inna Boyer CRNA HER OPERATOR * Anesthesia Procedure Notes - Inna Boyer CRNA - 09/13/2016 12:33 PM BRUSHER OPERATOR Associated Order(s): CSE BLOCK Anesthesia CSE Block Patient location during procedure: Pre-op Start time: 09/13/2016 12:15 PM Staffing Performed by: INNA BOYER Preanesthetic Checklist Completed: patient identified, site marked, pre-op evaluation, timeout performed, IV checked, risksand benefits discussed and monitors and equipment checked CSE Hand hygiene performed prior to procedure Patient was prepped and draped in usual sterile fashion Time out performed Mask worn Patient position: Sitting Prep: ChloraPrep and site prepped and draped Local Anesthetic: Lidocaine 1% without epinephrine Patient monitoring: Continuous pulse oximetry and Non-invasive blood pressure Approach: Midline Twin Identification: palpation technique Number of Attempts: 2 Spinal Needle Needle type: Pencil-tip Needle gauge: 27 G Needle length: 5 in CSF visualized Epidural Needle Identification Technique: ARNULFO saline Needle Type: Tuohy Needle Gauge: 17 G Needle Length: 10 cm Needle Insertion Depth (cm): 5 Location: Lumbar (1-5) Catheter Catheter Type: Side holeCatheter Size: 19 GSkin Depth (cm): 11 Test dose: Lidocaine 1.5% with epinephrine 1-to-200,000 and Negative Test dose: 3 Events: difficultyResponse to Event: test dose @ 1231Secured with: Tegaderm and Tape Assessment Sensory Level: T4 Outcome: Complete HER OPERATOR * Anesthesia Preprocedure Evaluation - Filomena Ruelas MD - 09/13/2016 11:43 AM CST Anesthesia Evaluation Patient summary reviewed Airway Mallampati: II TM distance: >3 FB Neck ROM: full Dental - normal exam Pulmonary - negative ROS and normal exam breath sounds clear to auscultation Cardiovascular - normal exam (+) hypertension, Rhythm: regular Rate: normal Neuro/Psych (+) psychiatric history GI/Hepatic/Renal (+) PUD, Endo/Other - negative ROS Abdominal Anesthesia History No history of anesthetic complications. Anesthesia Plan ASA 2 Combined Spinal Epidural N/A induction NPO status > 6 hours Anesthetic plan and risks discussed with Patient and Spouse. Plan discussed with Nurse Laboratory Tech, Anesthesiologist and Surgeon. Post-op Pain Control Plan to use Epidural for post-op pain control. assessment indications: primary elective para: Gestational age: 36w4d Temp: 36.8 ??C (09/13/16 1058) Temp src: Oral (09/13/16 105) Pertinent interval changes in the patient's history or review of systems: None Recommendations: GI prophylaxis Choice of Anesthesia/Anesthesia Plan: Proceed and Regional Consents Signed: ;Epidural;Circumcision;Blood consent;Hepatitis B vaccine (09/13/16 1103) Postop pain management discussed yes History reviewed, patient seen and examined prior to induction of anesthesia. Regional anesthesia and general anesthesia if circumstances warrant discussed, including risks, benefits, and alternatives. Questions solicited and answered. Patient understands and wishes to proceed. HER OPERATOR documented in this encounter Plan of Treatment Upcoming Encounters Date Type Department Care Team (Late st Contact Info) Description 10/14/2024 11:00 AM BRUSHER OPERATOR Office Visit [facility] Oncology and Hematology - Alirio [address] [facility] [address] [place] [address] Ubaldo Cardenas MD [address] [facility] [address] [place] [address] documented as of this encounter Procedures Procedure Name Priority Date/Time Associated Diagnosis Comments SD ANESTHESIA BLOCK PB PLACEHOLDER CHARGE Routine 09/13/2016 12:34 PM BRUSHER OPERATOR Procedure Note - Inna Boyer CRNA - 09/13/2016 12:33 PM CSTThis note is in progress. Anesthesia CSE Block Patient location during procedure: Pre-op Start time: 09/13/2016 12:15 PM Staffing Performed by: INNA BOYER Preanesthetic Checklist Completed: patient identified, site marked, pre-op evaluation, timeoutperformed, IV checked, risks and benefits discussed and monitors andequipment checked CSE Hand hygiene performed prior to procedure Patient was prepped and draped in usual sterile fashion Time out performed Mask worn Patient position: Sitting Prep: ChloraPrep and site prepped and draped Local Anesthetic: Lidocaine1% without epinephrine Patient monitoring: Continuous pulse oximetry and Non-invasive bloodpressure Approach: Midline Twin Identification: palpation technique Number of Attempts: 2 Spinal Needle Needle type: Pencil-tip Needle gauge: 27 G Needle length: 5 in CSF visualized Epidural Needle Identification Technique: ARNULFO saline Needle Type: Tuohy Needle Gauge: 17 G Needle Length: 10 cm Needle Insertion Depth (cm): 5 Location: Lumbar (1-5) Catheter Catheter Type: Side holeCatheter Size: 19 GSkin Depth (cm): 11 Test dose: Lidocaine 1.5% with epinephrine 1-to-200,000 and Negative Test dose: 3 Events: difficultyResponse to Event: test dose @ 1231Secured with:Tegaderm and Tape Assessment Sensory Level: T4 Outcome: Complete documented in this encounter Visit Diagnoses Not on filedocumented in this encounter Administered Medications Inactive Administered Medications - up to 3 most recent administrations Medication Order MAR Action Action Date Dose Rate Site bupivacaine-dextrose (PF) (MARCAINE SPINAL, SENSORCAINE-MPF) injection INTRA-PROCEDURE PRN, Starting on Sun09/13/16 at 1227, Until Sun09/13/16 at 1339, Routine, Anesthesia Intra-op Given 09/13/2016 12:27 PM BRUSHER OPERATOR 1.2 mL famotidine PF (PEPCID) 20 mg/2 mL injection INTRA-PROCEDURE PRN, Starting on Sun09/13/16 at 1211, Until Sun09/13/16 at 1339, Routine, Anesthesia Intra-op Given 09/13/2016 12:11 PM BRUSHER OPERATOR 20 mg fentaNYL PF (SUBLIMAZE) 15 mcg/0.3 mL syringe 15 mcg 15 mcg, See Admin Instructions, INTRA-PROCEDURE ONCE, 1 dose, Starting on Sun09/13/16 at 1131, Until Sun09/13/16 at 1227, Routine Given 09/13/2016 12:27 PM BRUSHER OPERATOR 15 mcg fentaNYL PF (SUBLIMAZE) 50 mcg/mL injection INTRA-PROCEDURE PRN, Starting on Sun09/13/16 at 1255, Until Sun09/13/16 at 1339, Routine, Anesthesia Intra-op Given 09/13/2016 12:55 PM BRUSHER OPERATOR 100 mcg lactated ringers solution IV, at 125 mL/hr, PRE-PROCEDURE CONTINUOUS, Starting on Sun09/13/16 at 1145, Until Sun09/13/16 at 1657, Routine, Pre-op New Bag 09/13/2016 12:28 PM BRUSHER OPERATOR 125 mL/h r New Bag 09/13/2016 12:00 PM BRUSHER OPERATOR lidocaine-EPINEPHrine (PF) (XYLOCAINE MPF-EPI) 2 %-1:200,000 injection INTRA-PROCEDURE PRN, Starting on Sun09/13/16 at 1237, Until Sun09/13/16 at 1339, Other (See Comment), Routine, Anesthesia Intra-op Given 09/13/2016 12:37 PM BRUSHER OPERATOR 5 mL metoclopramide HCl (REGLAN) injection INTRA-PROCEDURE PRN, Starting on Sun09/13/16 at 1211, Until Sun09/13/16 at 1339, Routine, Anesthesia Intra-op Given 09/13/2016 12:11 PM BRUSHER OPERATOR 10 mg ondansetron (ZOFRAN) 4 mg/2 mL injection INTRA-PROCEDURE PRN, Starting on Sun09/13/16 at 1211, Until Sun09/13/16 at 1339, Nausea/Emesis, Routine, Anesthesia Intra-op Given 09/13/2016 12:11 PM BRUSHER OPERATOR 4 mg oxytocin in lactated ringers (PITOCIN) 20 unit/1,000 mL infusion Solution IV, at 125 mL/hr, CONTINUOUS PRN, 2 doses, Starting on Sun09/13/16 at 1131, Until Sun09/13/16 at 1334, Other (See Comment), post op, (OB ANESTHESIA ORDER) Started by Another Clinician 09/13/2016 1:34 PM BRUSHER OPERATOR 125 mL/hr 125 mL/hr New Bag 09/13/2016 1:03 PM BRUSHER OPERATOR phenylephrine in NS 0.5 mg/5 mL (100 mcg/mL) injection INTRA-PROCEDURE PRN, Starting on Sun09/13/16 at 1239, Until Sun09/13/16 at 1339, Routine, Anesthesia Intra-op Given 09/13/2016 12:58 PM BRUSHER OPERATOR 100 mcg Given 09/13/2016 12:55 PM BRUSHER OPERATOR 200 mcg Given 09/13/2016 12:41 PM BRUSHER OPERATOR 100 mcg sodium citrate-citric acid (BICITRA) oral solution INTRA-PROCEDURE PRN, Starting on Sun09/13/16 at 1210, Until Sun09/13/16 at 1339, Routine, Anesthesia Intra-op Given 09/13/2016 12:10 PM BRUSHER OPERATOR 30 mL documented in this encounter Care Teams Chip Person Relationship Specialty Start Date End Date Hilda Eden FNP [address] [place] [address] PCP - General NURSE PRACTITIONER 07/13/13 01/05/18 documented as of this encounter
--- OUTSIDE RECORDS SUMMARY | 2024-08-03 01:41 | XMS_ITS | Encounter Summary ---
Author Organization [facility] Address [address] [place] [address] Care Team Providers Care Plastic Maker Name Role Phone Hilda Eden RADHA Primary Care Provider [phone] Reason for Visit * Auth/Cert Specialty Diagnoses / Procedures Referred By Reva t Referred To Contact Obstetrics Diagnoses EDC 10/07 Cholestasis [facility] approved Primary Procedures SECTION [facility] Mother Baby 6c [address] [place] [address] Referral ID Status Reason Start Date Expiration Date Visits Re quested Visits Authorized [id number] 09/18/2016 10/19/2017 1 Encounter Details Date Type Department Care Team (Late st Contact Info) Description 09/13/2016 12:30 PM CROP CONSULTANT - 09/13/2016 2:00 PM CROP CONSULTANT Surgery [facility] Labor & [address] [place] [address] [place] [address] [place] [address] SECTION Surgery Details Date/Time Status Location OR Service Patient Class Case Class Case Type Trauma Case? 09/13/2016 12:30 PM Posted [facility] L&D C-S A Obstetrics Surgery Admit Elective No Panel 1 Procedure LRB Anes Op Region Wound Class Comments SECTION N/A Epidural Abdomen Clean Contami nated-II EDC 2/25* Cholestasis (Dr. Caraballo approved) Primary Surgeon Surgeon Role Service Panel Keo Meza MD Primary Obstetrics 1 documented in this encounter Social History Tobacco [...] Sign Reading Time Taken Comments Blood Pressure 90/70 09/13/2016 2:00 PM CROP CONSULTANT Pulse 73 09/13/2016 2:00 PM CROP CONSULTANT Temperature 36.4 ??C (97.5 ??F) 09/13/2016 1:37 PM CS T Respiratory Rate 16 09/13/2016 2:00 PM CROP CONSULTANT Oxygen Saturation 100% 09/13/2016 2:00 PM CROP CONSULTANT Inhaled Oxygen Concentration - - Weight 105.2 kg (232 lb) 09/13/2016 10:58 AM CROP CONSULTANT Height 167.6 cm (5' 6 ) 09/13/2016 10:58 AM CROP CONSULTANT Body Mass Index 37.45 09/13/2016 10:58 AM CROP CONSULTANT documented in this encounter Discharge Summaries * Keo Meza MD - 09/15/2016 7:45 PM CST 4Patient: Vera Vitale / y.o. / female : 1985 Admit date: [...] duplicate medications found. Review medication list carefully. CONSULTANT documented in this encounter Discharge Instructions * Discharge Instructions* Chasidy Ortega RN - 09/16/2016 10:20 AM CROP CONSULTANT PRESCRIPTIONS Prescriptions given? Yes ACTIVITY/EXERCISE Recovery is [...] yourself or your baby Suicide Prevention/Crisis Hotlines [facility] - Behavioral Health Intake Department [phone] [facility] Behavioral Health Intake Department is professionally staffed and offers free, confidential evaluations for anyone needing assistance with a psychiatric, behavioral or addictive disorder. Evaluations, as well as referrals to physicians or community resources, are available 24 hours aday, 7 days a week. [facility] [phone] ([phone]) [facility] is one of the nation???s [employer] suicide prevention and crisis hotlines. [facility] operates 24 hours a day, 7 days a week, 365 days a year. [facility] ([facility]) [phone] (toll free) [facility] ([facility]) is a professionally staffed crisis response service. [facility] provides expert behavioral health, crisis response, and outreach services, 24 hours a day, seven days a week to agencies and companies worldwide. National Suicide Prevention Hotline 5-517-739-TALK (3263) A free, 24-hour hotline available to anyone in suicidal crisis or emotional distress. Your call will be routed to the nearest crisis center to you. National [facility]eline Network 0-489-OYMZJLV National [place] on Mental Illness ([facility]) [phone] Referral for Psychiatrist: [facility] [phone] or [facility] [phone] CONSULTANT documented in this encounter Medications at Time [...] Pt. Will be leaving via w/c with . Home per private car. CONSULTANT * Chasidy Ortega RN - 09/16/2016 10:17 AM CST Talked with Social service and they will be up to give Medicare information. CONSULTANT * Sylvia Holcomb MD - 09/16/2016 7:40 [...] 12.1>11.1 - Asymptomatic Sylvia Holcomb MD PGY1 CONSULTANT * Dania Alexis RN - 09/16/2016 4:55 AM CST Pain controlled with PO pain medication per pt. Pt appears in good spirits through the evening and night. Sleeping well between breast feedings. No concerns expressed. CONSULTANT * Tricia Jamison RN - 09/15/2016 2:32 PM CST Pain well controlled with oral medications. Vital signs stable. Bleeding WNL. well. CONSULTANT * Aminah Jaquez RN - 09/15/2016 1:02 [...] wrist and said she was hospitalized at [facility] at the age of 16. Pt denies [...] about the Super Bowl. Said she's a [place] fan and hopes to be discharged in time to watch the game at h ome. Dr. Owen to follow up with consult. Keshia Jaquez RN [id number] CONSULTANT * Keo Meza MD - 09/15/2016 6:56 [...] - asymptomatic this morning Sabrina Brand MD OB-EQUIPMENT INSTALLER Resident, PGY-1 Pager#: [phone] Examined. As above CONSULTANT * Elvis Owen MD - 09/14/2016 8:06 PM CST Tried to see pt this evening. Both intake nurse and OBGYN nurse informed this brief writer pt would like to see psychiatrist tomorrow. Nurse reported pt was overwhelmed earlier today, currently she is acting appropriately. She does not need urgent psych help. Will see opt tomorrow evening. CONSULTANT * Nathaly Dorado RN - 09/14/2016 7:02 PM CST Intake note. Arrived on Mother Baby unit and spoke with Vera's RN. Pt's RN said Vera was with family bonding with her new baby and would prefer to have Behavioral Health speak with her at a different time. Pt did have a high score on the [place] Depression Scale. Per RN-pt was anxious that a Audit Mgr and were called-thinking someone might try and take her baby away. Vera's RN told her we are here to heip her-not take her baby away. Will follow up at a different time for assessment. Nathaly Coleman [id number] CONSULTANT * Ella Lara RN - 09/14/2016 5:30 PM CST Nathaly SANTIAGO from psyche consult here to see pt. However pt and decline to discuss issues right now. Requested to come back tomorrow. Pt family here. No further concerns at this time. Pt is cooperative and involve with self and care. CONSULTANT * Tricia Jamison RN - 09/14/2016 1:11 PM CST Patient taking L-methylfolate (Deplin). Per [place] in Pharmacy medication not available. Requested that patient bring medication from home and RN send to Pharmacy for approval. Dr. Manzanares notified and aware. CONSULTANT * Tricia Jamison RN - 09/14/2016 12:59 PM CST Call placed to Audit Mgr, Mahsa, to confirm that she was aware of patient's [place] score of 13. CONSULTANT * Amisha Manzanares MD - 09/14/2016 6:20 [...] asymptomatic this morning Amisha Manzanares MD PGY1 CONSULTANT * Fareed Black RN - 09/14/2016 4:26 AM CST [place] is 13 and question #10 is hardly ever . IP Social consult ordered. Paged and notified Dr. Rossi about ed[place]. Dr. Rossi also wants carver in until urine is clear. CONSULTANT * Fareed Black RN - 09/14/2016 2:18 AM CST Pt urine output has been inadequate, with 100ml in 5 hrs, 50 mls in [address] P[address] Rossi andordered NS 1L running at 200ml/hr. CONSULTANT * Sadia Waldron RN - 09/13/2016 3:57 [...] in recovery until 1630 to observe bleeding. CONSULTANT * Aric Schmitz MD - 09/13/2016 3:43 [...] Received an additional 20u pitocin, cytotec 800 W[place], hemabate. To repeat hemabate in 15m Second IV started. CBC, DIC sent during evacuation. Dr. Meza updated Uriah Schmitz MD CONSULTANT * Lenore Caro RN - 09/12/2016 12:31 PM CST Pre-Operative [...] No Latex Allergy Opportunity provided for questions. Medical Records Secretary required: N/A Lenore Caro RN CONSULTANT documented in this encounter H&P Notes * [...] No observed anomalies 4 2009 SAB 3 2007 SAB 2 SAB 2006 SAB 1 SAB 2004 SAB EQUIPMENT INSTALLER Hx: denies history of abnormal Pap smears [...] FHR: 135, mod variability, +accels, no decels [place]: quiet Assessment/Plan: 31 y.o. @ 36w4d admitted [...] discussed with Dr. Derrick Jc MD PGY-2 CONSULTANT documented in this encounter Consult Notes * Elvis Owen MD - 09/15/2016 6:19 PM CSTAssociated Order(s): IP CONSULT TO PSYCHIATRY Psychiatric Consultation Note PATIENT: Vera Vitale AGE: 31 y.o. CSN: [id number] Date of : 1985 Admit date: 09/13/2016 Consult date: 09/15/2016 Sources of Information: Face to face interview of patient. Review of medical record. Discuss with treatment team. Reason of consult: Depression, Medication management. Diagnosis: [place] I: Bipolar disorder current depressed. Anxiety disorder. [place] II:None [place] III: Past Medical History Diagnosis Date ??? Anxiety Zoloft ??? Bipolar affective disorder ??? Depression bipolar ??? High cholesterol ??? MRSA (methicillin resistant Staphylococcus aureus) 08/2009 cysts on leg, never cultured-told it was staph and was given medication [place] IV: financial, health and post . [place] V : GAF 60 CC: I felt depressed recently. I do not feel suicidal now. HPI Vera Vitale is a 31 y.o. @ 364d. She has hx of BAD and CLOTILDE. She was admitted on 2016 for . Pt reported past hx of bipolar disorder and recently depressed, she also reported past hx of suicidal thoughts with suicide attempt. Primary team requested psych consult for evaluation and medicationmanagement. During the interview with this brief writer: Patient reported BAD and CLOTILDE since [...] mood stabilizerat this time. She shows good pillai to the baby, she denied any thoughts [...] [] No. Past Medication History: Refer to WASTE COLLECTION DRIVER medication list. Summary of social and family history: Living Situation: [x] With family , [] With BF/GF [] By self. [] MCC. [] RCF [] homelessness. ?? Marital History: [x] , [] Single [] engaged, [] , [] . [] . ?? Children: 2 ?? Occupation: [] Unemployed. /SSDI [x] Unemployed, [] employed [] temporary job. [] retired. ?? Education: [] GED, [] HS diploma, [x] some college, [] bachelor degree, [] master degree, [] PhD ?? Mormonism: [x] none [] Anglican [] Advent [] Congregational, [] cheondoism, [] others. ?? Sexual Orientation: Heterosexual. ?? [...] Unknown time Current Facility-Administered Medications Ordered in Epic Medication Dose Route Frequency Provider Last Rate Last Dose ??? ibuprofen (MOTRIN) tablet 600 mg 600 mg Oral q 6 hour Amisha Brand MD 600 mg at 09/15/16 1200 ??? sodium chloride 0.9% infusion IV Continuous Veh, Gisele Francois MD 125 mL/hr at 09/14/16 0830 ??? [...] Daily Radha Jc MD 1 Tablet at 09/15/16 08 ??? magnesium hydroxide (MILK OF MAGNESIA) oral suspension 30 mL 30 mL Oral HS PRN Radha Jc MD ??? docusate sodium (COLACE) capsule 100 mg 100 mg Oral BID Radha Jc MD 100 mg at 09/15/16 08 ??? sertraline (ZOLOFT) tablet 50 mg 50 mg Oral Daily BEDTIME Radha Jc MD 50 mg at 09/14/165 No results found for this visit on 09/13/16 (from the past 24 hour(s)). Active Hospital Problems Diagnosis ??? S/P section ??? Cholestasis during Resolved Hospital Problems Diagnosis Date Resolved No resolved problems to display. Patient Strengths Potential for Insight x [place] in ADL's Good Verbal Skills Motivation for [...] patient denies anemia, bleeding or easy brusibility SIGNING TEACHER: patient denies any headache syncope or seizures [...] and/or coordination of care. ELVIS OWEN MD CONSULTANT * Kal Perez RN - 09/15/2016 5:11 PM CST Images from the original note were not included. Kal Perez RN Registered Nurse Signed Consults Date of [...] when babyis giving feeding cues. ?? Time 0953-0044 CONSULTANT documented in this encounter OR Notes * Anesthesiology - Isaias Oleary DO - 09/14/2016 7:02 PM CST Discussed post-op pain management plan with attending anesthesiologist. Epidural pulled in accordance with prescribed plan. Epidural pulled due to dressing failure Tip was intact. Site is clean dry and without erythema. Isaias Oleary DO 09/14/2016 7:02 PM CONSULTANT * Anesthesiology - Filomena Ruelas MD - 09/14/2016 8:22 AM CST Post - Operative Pain Service Note Post op day #1. Epidural 09/13/16 1215-Rate: 2 (09/14/16 0702) Epidural medication: Demerol Vitals: Pulse: 80 (09/14/16 0030) BP: 115/62 (09/14/16 0455) Resp: 20 (09/14/16 045) Temp: 36.8 ??C (09/14/16 045) VPS Pain Rating: Rest: 3 (09/14/16 0519) Description: Quality: aching (09/14/16 0148) Sedation: no Pruritis: no Nausea/vomitting: no Plan: No change in treatment. Will continue to follow. Filomena Petit MD 09/14/2016 8:22 AM CONSULTANT * Anesthesiology - Daniela Hayes DO - 09/14/2016 7:12 AM CST OB Anesthesia Post-Operative Assesment 09/14/2016 7:12 AM Vera Vitale, status post regional anesthesia for section. Patient seen and evaluated: Respiratory Function Resp: 20 (09/14/16 045) SpO2: 97 % (09/14/16454) Able to breathe [...] hours) at 09/14/16711 Last data filed at 09/14/16701 Gross per 24 hour Intake 6803.75 ml Output 3725 ml Net 3078.75 ml Nausea and Vomiting Able to drink fluids, no nausea, no vomiting Epidural Site Visually examined through clear dressing. No erythema, excess drainage, or tenderness to palpation Dressing is intact and well adhered. Narrative No apparent Anesthesia related complications Daniela Hayes DO 09/14/2016 7:12 AM CONSULTANT * Operative Report - Radha Jc MD - 09/13/2016 1:42 PM CROP CONSULTANT Note Section Operative Note Patient: Vera Vitale / 31 y.o. / female : 1985 Date of Procedure: 09/13/2016 Time: Information for the patient's : Olvin Vitale [[id number]] Delivery Time: 1301 (09/13/16 1318) Preoperative Diagnosis: 1. Intrauterine at 36w4d 2. previous 3. Cholestasis of 4. gHTN Postoperative Diagnosis: Same Procedure: Repeat Low Transverse Section via [place] Surgeon: Keo Meza MD Clipper Counters: Radha Jc MD PGY-2 Anesthesia: Combined spinal-epidural Complications: None EBL: 900cc Fluids: Lactated Ringers Urine Output: Clear Indications: 31 y.o. @ 36w4d with complicated by cholestasis and gHTN presentedfor rLTCS. Findings: male infant in cephalic presentation. Clear amniotic fluid. Apgars Information for the patient's : Olvin Vitale [[id number]] 1 Minute Score: 7 (09/13/16 1317) 5 Minute Score: 9 (09/13/16 1317) Weight Information for the patient's : Olvin Vitale [[id number]] Weight: 3515 g (7 lb 12 oz) (09/13/16 131) Nuchal cord: none Normal uterus, tubes, and [...] The bladder blade was removed and the 's head was elevated and delivered atraumatically. The remainder of the infant was then delivered without difficulty, and the [...] cord blood donation Radha Jc MD PGY-2 CONSULTANT Associated attestation - Keo Meza MD - 09/13/2016 2:17 PM CROP CONSULTANT I performed this entire csection with the [...] Provided pt with phone number of local [place] office ( [facility] ), and instructed her to call for an appointment. [place] Medical Referral Forms filled out for Mom and Baby, will fax to [place] office. Pt voices understanding. CONSULTANT * Care Plan - Geraldine Rasmussen LMSW [...] the room. Primary Emergency Contact: ELIAZAR VITALE, Keith Baby will reside at [address] [place] [address] [place] [address] with mother, FOB and 5 year old brotherat discharge. Father of Baby is involved. Prior to , family had no involvement or services in home. Mother of baby has WIC. Mother of baby has breast pump. Family has crib and car seat. Academic Affairs Assistant verified as Dr. Ana Rodriguez Baby mother's insurance verified as Payor: MEDICARE / Plan: MEDICARE PART A AND B / Product Type: Medicare / and baby will be added to plan of [place] Medicaid. Discussed discharge goals and possible discharge needs including home with family assist. Mother does not have employment outside of the home. Eliazar MAN, works at a [employer] company is currentlyoff work due to the season. DONOVAN will resume work late September/early October. Social work consult received due to patient???s [place] score. SW met with pt. to discuss score and provide post education. SW requested permission to speak in front of [...] support network is maternal and paternal family. Jesús notified attending RN and attending MD.Jesús called to request consult to Dr. Owen. JESÚS educated patient on signs/symptoms of PPD and recommended that she also review these with a trusted loved one and give them permission to speak with patient should they notice her exhibiting symptoms. JESÚS also provided a list of counselors in the [place] area who are qualified to treat PPD as well as the Warmline and directions for use. SW provided pt with new parent resources including Nurses for Newborns information, post- depression screening tools, and a list of local parenting classes/assistance programs. Care Management contact information provided. Care Management will continue to follow and assist asneeded. Sw to follow. Geraldine Rasmussen EPITAXIAL REACTOR OPERATOR, DIE OUT WORKER [id number] CONSULTANT * Care Plan - Fareed Black RN - 09/14/2016 5:45 AM CST Pain well controlled. Carver didn't come out after 12 hrs because of poor urine output and the colorwas red. Paged MD and got order for NS 1L after LR completed. MD wants carver stay in until urine turns clear. VSS, light lochia. [place] was 13, SS consult in and MD notified. CONSULTANT * Care Plan - Maddi Serrano RN - 09/13/2016 6:41 PM CST Pain level being managed at a 2 Positive bowel sounds, tolerated clear liquids, advanced diet to regular. CONSULTANT * Care Plan - Genna Landin RN - 09/13/2016 1:39 PM CST SLCBB ID NMDP ID Reviewed by/Date: Disposition Tech/Date: -63= Total Weight Cord Blood Volume Labor Room: [facility] Tech/Date: [place] Cord Blood Bank at [facility] [phone] or [phone] FAX [phone] [address] [address] [place], [place] [address] LABOR AND DELIVERY DATA Mother's Name: Vera Vitale Mother's Date of : 1985 Mailing Address of Mother of Baby: [address] [place] [address] [place] [address] Patient Location: [address] [place] [address] Information for the patient's : Olvin Vitale [[id number]] Marine Habitat Resource Specialist/Certified Nurse Trial Court Judge: Alessandro Meza MD (09/13/16 3612) Identity of donor above confirmed by verifying [...] hours Labor Induced: no Intrapartum Events: None (09/13/16 1317) Blood Transfusion in Labor: no Membrane Rupture Date: 09/13/16 (09/13/161315) Membrane Rupture Time: 1300 (09/13/16 1316) Amniotic Fluid Color: clear (09/13/16 1317) Odor: normal (09/13/16 131) Delivery Date : 09/13/16 (09/13/16 131)Delivery Time : 1301 (09/13/16 1316) Number of Infants Delivered: 1 (CORD BLOOD COLLECTIONS ARE FOR WU BIRTHS ONLY) Patient Vitals for the past 72 hrs: Temp 09/13/16 1058 98.3 ??F (36.8 ??C) MATERNAL LAB DATA Maternal labs if manually entered by nursing: Blood Type: B (09/13/161326) RH: Positive (09/13/161326) Rubella Status: Immune (09/13/161326) VDRL/RPR: Non-reactive (09/13/161326) HbsAg: Negative (09/13/161326) HIV Status: Negative (09/13/161326) Maternal labs from integrated physician practice or if drawn during patient [...] (2,000 mg IV New Bag 09/13/16 1241) INFANT INFORMATION Ethnicity of the : White Information for the patient's : Olvin Vitale [[id number]] Type of Delivery: , Low Transverse (09/13/16 1318) Information for the patient's : Olvin Vitale [[id number]] Weight: 3515 g (7 lb 12 oz) (09/13/16 1317) 5 Minute Score: 9 (09/13/16 131) Anomalies: Gross congenital anomalies (frenulum attached) (09/13/16 131) Evidence of Infection? no Temp (>100 degrees)? no Information for the patient's : Olvin Vitale [[id number]] Patient Vitals for the past 24 hrs: Temp Temp src Resp Weight 09/13/16 1315 98.1 ??F (36.7 ??C) Axillary 50 3515 g (7 lb 12 oz) Comments: THE FOLLOWING ITEMS ARE ENCLOSED IN THE COLLECTION BOX MATERNAL BLOOD [x] Red Top Tube [x] Purple Top Tube [x] White Top Tube CORD BLOOD [x] Cord Blood Collection Bag COMPLETED PAPER WORK [x] Consent Form [x] Labor and Delivery Data Sheet [x] Medical History Questionnaire (if not sent in) CONSULTANT documented in this encounter Plan of Treatment Upcoming Encounters Date Type Department Care Team (Late st Contact Info) Description 10/14/2024 11:00 AM CROP CONSULTANT Office Visit [facility] Oncology and Hematology - [place] [address] [place] [address] Ubaldo Cardenas MD [address] [facility] [address] [place] [address] documented as of this encounter Procedures Procedure Name Priority Date/Time Associated Diagnosis Comments DIC PROFILE Routine 09/13/2016 3:35 PM CROP CONSULTANT CBC WITH DIFFERENTIAL Routine 09/13/2016 3:35 PM CROP CONSULTANT SECTION 09/13/2016 12:4 4 PM CROP CONSULTANT EDC 10/07* Cholestasis (Dr. Caraballo approved) Primary CBC WITH DIFFERENTIAL Routine 09/13/2016 11:26 AM CROP CONSULTANT TYPE AND SCREEN Routine 09/13/2016 11:26 AM CROP CONSULTANT HIV DETECTION W/REFLX CONFIRMATION Routine 04/27/2016 HEPATITIS B SURFACE ANTIGEN Routine 04/27/2016 RUBELLA IGG Routine 04/27/2016 RPR Routine 04/27/2016 TYPE AND SCREEN Routine 04/27/2016 documented in this encounter Results * (ABNORMAL) CBC WITH DIFFERENTIAL (09/13/2016 3:35 PM CROP CONSULTANT) WBC 12.0(H) 4.0 - 9.8 K/uL 09/13/2016 3:58 PM CROP CONSULTANT [facility] RBC 3.75(L) 3.90 - 4.90 M/uL 09/13/2016 3:58 PM CROP CONSULTANT [facility] HEMOGLOBIN 11.1(L) 11.8 - 14.8 g/dL 09/13/2016 3:58 PM CROP CONSULTANT [facility] HEMATOCRIT 32.0(L) 35.5 - 44.0 % 09/13/2016 3:58 PM CROP CONSULTANT [facility] - . [facility] MCV 85.3 82.0 - 99.0 fL 09/13/2016 3:58 PM CROP CONSULTANT [facility] - [facility] MCH 29.6 27.2 - 32.6 pg 09/13/2016 3:58 PM CROP CONSULTANT [facility] - [facility] MCHC 34.7 31.5 - 35.5 g/dL 09/13/2016 3:58 PM CROP CONSULTANT [facility] - [facility] RDW 14.6(H) 11.5 - 14.5 % 09/13/2016 3:58 PM CROP CONSULTANT [facility] - [facility] RDW-STDEV 45.0 37.1 - 48.7 fL 09/13/2016 3:58 PM CROP CONSULTANT [facility] PLATELETS 292 140 - 350 K/uL 09/13/2016 3:58 PM CROP CONSULTANT [employer] [facility] - [facility] MPV 9.2(L) 9.3 - 12.4 fL 09/13/2016 3:58 PM CROP CONSULTANT [employer] [facility] - . [facility] NEUTROPHILS 82 % 09/13/2016 3:58 PM CROP CONSULTANT [employer] [facility] - . [facility] LYMPHOCYTES 12 % 09/13/2016 3:58 PM CROP CONSULTANT [employer] [facility] - . [facility] MONOCYTES 5 % 09/13/2016 3:58 PM CROP CONSULTANT [employer] [facility] - . [facility] EOSINOPHILS 0 % 09/13/2016 3:58 PM CROP CONSULTANT [employer] [facility] - . [facility] BASOPHILS 0 % 09/13/2016 3:58 PM CROP CONSULTANT [employer] [facility] - . [facility] IMMATURE GRANULOCYTES 1 % 09/13/2016 3:58 PM CROP CONSULTANT [employer] [facility] - . [facility] Comment:IG (Immature Granulo cyte) count includes Metamyelocytes, Myelocytes, and Promyelocytes NEUTROPHIL ABSOLUTE 9.78(H) 1.90 - 7.00 K/uL 09/13/2016 3:58 PM CROP CONSULTANT [facility] - . [facility] LYMPHOCYTE ABSOLUTE 1.46 0.70 - 4.50 K/uL 09/13/2016 3:58 PM CROP CONSULTANT [employer] [facility] - . [facility] MONOCYTE ABSOLUTE 0.61 0.10 - 1.30 K/uL 09/13/2016 3:58 PM CROP CONSULTANT [facility] - . [facility] EOSINOPHIL ABSOLUTE 0.02 0.00 - 0.70 K/uL 09/13/2016 3:58 PM CROP CONSULTANT [facility] BASOPHILS ABSOLUTE 0.01 0.00 - 0.20 K/uL 09/13/2016 3:58 PM CROP CONSULTANT [facility] [place] HOSPITAL IMMATURE GRANULOCYTES ABSOLUTE 0.07(H) 0.00 - 0.03 K/uL 09/13/2016 3:58 PM CROP CONSULTANT [facility] Blood Collection / Unknown 09/13/2016 3:35 PM CROP CONSULTANT 09/13/2016 3:39 PM CROP CONSULTANT Keo Meza MD HEMATOLOGY ORDERABLE S [facility] CLIA# [id number] [address] [place] [address] * (ABNORMAL) DIC PROFILE (09/13/2016 3:35 PM CROP CONSULTANT) PROTIME 13.6 12.7 - 15.1 Seconds 09/13/2016 4:06 PM [facility] INR 1.0 0.9 - 1.1 09/13/2016 4:06 PM [facility] Comment: INR Therapeutic Range: Adult: ?? 2.0 - 3.0 for pulmonary embolism or prophylaxis against venous ?thrombosis or systemic embolization. 2.0 - 3.0 for patients with tissue heart valves. 2.5 - 3.5 for patients with mechanical heart valves or post DE. Pediatric ??(12 years and under): 1.5 - 3.0 Although the target range in children is not well established, ?INR values of 1.5 - 3.0 are recommended for most patients. ?Higher values have been used in children with prosthetic ?cardiac valves and hereditary clotting disorders. [place] (<3 days) therapeutic ranges have not been established PTT 29.2 24.4 - 36.4 seconds 09/13/2016 4:06 PM [facility] [employer] [facility] Comment: PTT Therapeutic Range: Heparin Level ? PTT (seconds) <0.10 units/mL ? <53 0.10 - 0.30 units/mL ? 53 - 67 0.30 - 0.70 units/mL* ?67 - 95* 0.70 - 1.00 units/mL ? 95 - 116 *corresponds to therapeutic range for unfractionated heparin FIBRINOGEN 649(H) 185 - 404 mg/dL 09/13/2016 4:06 PM [facility] [employer] [facility] D-DIMER QUANT 3.20(H) <0.42 ug/mL FEU 09/13/2016 4:06 PM [facility] [employer] [facility] Comment: The DIC reference range is not clearly established in uncomplicated pregnancies. ??Values above the upper limit of the reference range are common from the 31st to 40th week of . ??High negative predictive values for DVT have been reported with the current methodology, as part of a comprehensive medical examination, including risk stratification. Blood Collection / Unknown 09/13/2016 3:35 PM CROP CONSULTANT 09/13/2016 3:39 PM CROP CONSULTANT Keo Meza MD HEMATOLOGY ORDERABLE S [facility] [employer] [id number] [address] [place] [address] * TYPE AND SCREEN (09/13/2016 11:26 AM CROP CONSULTANT) ABO GROUP B 09/13/2016 2:14 PM CROP CONSULTANT [facility] [employer] [facility] RH (D) TYPE Positive 09/13/2016 2:14 PM CROP CONSULTANT [facility] [employer] [facility] ANTIBODY SCREEN Negative 09/13/2016 2:14 PM CROP CONSULTANT [facility] Blood Venipuncture / Unknown 09/13/2016 11:26 AM CROP CONSULTANT 09/13/2016 11:32 AM CROP CONSULTANT Keo Meza MD BLOOD BANK ORDERABLE S [facility] CLIA# [id number] [address] [place] [address] * (ABNORMAL) CBC WITH DIFFERENTIAL (09/13/2016 11:26 AM CROP CONSULTANT) WBC 7.7 4.0 - 9.8 K/uL 09/13/2016 11:56 AM [employer] [facility] RBC 4.10 3.90 - 4.90 M/uL 09/13/2016 11:56 AM [employer] [facility] HEMOGLOBIN 12.1 11.8 - 14.8 g/dL 09/13/2016 11:56 AM [facility] [facility] HEMATOCRIT 34.7(L) 35.5 - 44.0 % 09/13/2016 11:56 AM [employer] [facility] MCV 84.6 82.0 - 99.0 fL 09/13/2016 11:56 AM [facility] MCH 29.5 27.2 - 32.6 pg 09/13/2016 11:56 AM [facility] - [facility] MCHC 34.9 31.5 - 35.5 g/dL 09/13/2016 11:56 AM [facility] RDW 14.6(H) 11.5 - 14.5 % 09/13/2016 11:56 AM [facility] RDW-STDEV 44.3 37.1 - 48.7 fL 09/13/2016 11:56 AM [facility] PLATELETS 300 140 - 350 K/uL 09/13/2016 11:56 AM [facility] MPV 9.3 9.3 - 12.4 fL 09/13/2016 11:56 AM [facility] [facility] NEUTROPHILS 70 % 09/13/2016 11:56 AM [facility] CONSULTANT [facility] [employer] [facility] LYMPHOCYTES 23 % 09/13/2016 11:56 AM [facility] [employer] [facility] MONOCYTES 6 % 09/13/2016 11:56 AM [facility] [employer] [facility] EOSINOPHILS 0 % 09/13/2016 11:56 AM [facility] BASOPHILS 0 % 09/13/2016 11:56 AM [facility] IMMATURE GRANULOCYTES 1 % 09/13/2016 11:56 AM [facility] [employer] [facility] Comment:IG (Immature Granulo cyte) count includes Metamyelocytes, Myelocytes, and Promyelocytes NEUTROPHIL ABSOLUTE 5.35 1.90 - 7.00 K/uL 09/13/2016 11:56 AM [facility] [employer] [facility] LYMPHOCYTE ABSOLUTE 1.79 0.70 - 4.50 K/uL 09/13/2016 11:56 AM [facility] MONOCYTE ABSOLUTE 0.49 0.10 - 1.30 K/uL 09/13/2016 11:56 AM [facility] [employer] [facility] EOSINOPHIL ABSOLUTE 0.02 0.00 - 0.70 K/uL 09/13/2016 11:56 AM [facility] [employer] [facility] BASOPHILS ABSOLUTE 0.01 0.00 - 0.20 K/uL 09/13/2016 11:56 AM [facility] IMMATURE GRANULOCYTES ABSOLUTE 0.04(H) 0.00 - 0.03 K/uL 09/13/2016 11:56 AM [facility] [employer] [facility] Blood Venipuncture / Unknown 09/13/2016 11:26 AM CROP CONSULTANT 09/13/2016 11:32 AM CROP CONSULTANT Keo Meza MD [facility]ATOLOGY [id number] [address] [place] [address] * RPR (04/27/2016) ABSTRACTED RPR non reactive [...] Post-op - Floor Given 09/16/2016 6:22 AM CROP CONSULTANT 1,000 mg Given 09/15/2016 9:07 PM CROP CONSULTANT 1,000 mg Given 09/15/2016 2:20 PM CROP CONSULTANT 1,000 mg carboprost tromethamine (HEMABATE) 250 mcg/mL injection 1 mL 1 mL (250 mcg), IM, EVERY 15 MINUTES PRN, 8 doses, Starting on Sun09/13/16 at 1137, Until 09/16/16 at 1333, Other (See Comment), for excessive bleeding in the immediate period as needed after consultation with resident or attending physician - Maximum of 8 doses, Routine Given 09/13/2016 3:44 PM CROP CONSULTANT 1 mL Thigh, Left Given 09/13/2016 3:25 PM CROP CONSULTANT 1 mL Th igh, Left diphenhydrAMINE (BENADRYL) tablet 25 mg 25 mg, Oral, EVERY 6 HOURS PRN, Starting on Sun09/15/16 at 1821, Until 09/16/16 at 1333, Restlessness, anxiety, Routine docusate sodium (COLACE) capsule 100 mg 100 mg, Oral, TWO TIMES DAILY, First dose on Sun09/13/16 at 2100, Until Discontinued, Routine, Post-op - Floor Given 09/16/2016 8:29 AM CROP CONSULTANT 100 mg Given 09/15/2016 9:08 PM CROP CONSULTANT 100 mg Given 09/15/2016 8:19 AM CROP CONSULTANT 100 mg ibuprofen (MOTRIN) tablet 600 mg 600 mg, Oral, EVERY 6 HOURS, First dose (after last modification) on Sun09/15/16 at 1200, Until Discontinued, Routine, Post-op - Floor Given 09/16/2016 6:22 AM CROP CONSULTANT 600 mg Given 09/16/2016 12:57 AM CROP CONSULTANT 600 mg Given 09/15/2016 6:36 PM CROP CONSULTANT 600 mg lanolin (LANSINOH) 100 % topical ointment Ointment Topical, SEE ADMIN INSTRUCTIONS, Starting on Sun09/13/16 at 1731, Until 09/16/16 at 1333, Routine, Post-op - Floor Given 09/14/2016 8:44 PM CROP CONSULTANT 7 Grams Ni pple, Bilateral metFORMIN (GLUCOPHAGE) tablet 500 mg 500 mg, Oral, TWO TIMES DAILY WITH MEALS, First dose on Sun09/13/16 at 1830, Until Discontinued, Routine Given 09/16/2016 8:29 AM CROP CONSULTANT 500 mg Given 09/15/2016 6:38 PM CROP CONSULTANT 500 mg Given 09/15/2016 8:19 AM CROP CONSULTANT 500 mg methylergonovine maleate (METHERGINE) 0.2 mg/mL (1 mL) injection 0.2 mg 0.2 mg, IM, EVERY 15 MINUTES PRN, 2 doses, Starting on Sun09/13/16 at 1137, Until 09/16/16 at 1333, Other (See Comment), for excessive bleeding in the immediate period as needed after consultation with resident or attending physician - Maximum of 2 doses, Routine oxyCODONE (ROXICODONE) tablet 5 mg 5 mg, Oral, EVERY 4 HOURS PRN, Starting on Nancy 09/14/16 at 1909, Until 09/16/16 at 1333, Other (See Comment), FIRST LINE MEDICATION, See Admin. Instructions, Routine, Post-op - Floor Given 09/16/2016 3:53 AM CROP CONSULTANT 5 mg Given 09/15/2016 10:45 PM CROP CONSULTANT 5 mg Given 09/15/2016 6:37 PM CROP CONSULTANT 5 mg oxyCODONE (ROXICODONE) tablet 5 mg [...] period, Routine New Bag 09/13/2016 3:20 PM CROP CONSULTANT 999 mL/hr 999 mL/hr vit-iron fumarate-fa (HECTOR ) 28 mg iron- 800 mcg per tablet 1 Tablet 1 Tablet, Oral, DAILY, First dose on Sun09/14/16 at 0900, Until Discontinued, Routine, Post-op - Floor Given 09/16/2016 8:29 AM CROP CONSULTANT 1 Tablet Given 09/15/2016 8:19 AM CROP CONSULTANT 1 Tablet Given 09/14/2016 9:28 AM CROP CONSULTANT 1 Tablet sertraline (ZOLOFT) tablet 100 mg 100 mg, Oral, DAILY AT BEDTIME, First dose (after last modification) on Sun09/15/16 at 2100, Until Discontinued, Routine Given 09/15/2016 9:07 PM CROP CONSULTANT 100 mg simethicone chewable tablet 80 mg 80 mg, Oral, EVERY 6 HOURS PRN, Starting on 09/13/16 at 1731, Until 09/16/16 at 1333, Gas, Routine, Post-op - Floor Given 09/14/2016 4:26 PM CROP CONSULTANT 80 mg sodium chloride 0.9% infusion IV, at 200 mL/hr, CONTINUOUS, Starting on Nancy 09/14/16 at 0245, Until 09/16/16 at 1333, Routine Rate Change 09/14/2016 8:30 AM CROP CONSULTANT 125 mL/hr New Bag 09/14/2016 2:45 AM CROP CONSULTANT 200 mL/hr documented in this encounter Active and Recently Administered Medications Times are shown in CROP CONSULTANT. Scheduled Medication Order 09/14/2016 09/15/2016 09/16/2016 acetaminophen [...] Lara RN - Comment: adjusted from last dose)2154 (Given - Provider: Aminah Champion RN) 0400 [...] 0829 (Given - Provider: Chasidy Ortega RN) naloxone (NARCAN) 0.4 mg/mL injection 0.1 mg 0.1 mg, IV, SEE ADMIN INSTRUCTIONS, Starting on Sun09/13/16 at 1731, Until 09/16/16 at 1333, Routine, Post-op - Floor naloxone (NARCAN) 0.4 mg/mL injection 0.2 mg 0.2 mg, IV, SEE ADMIN INSTRUCTIONS, Starting on Sun09/13/16 at 1131, Until Sun09/15/16 at 1130, Routine, (OB POST-OP PAIN SERVICE) vit-iron fumarate-fa (HECTOR ) 28 mg iron- 800 mcg per tablet 1 Tablet 1 Tablet, Oral, DAILY, First dose on Nancy 09/14/16 at 0900, Until Discontinued, Routine, Post-op - Floor 0928 (Given - Provider: Tricia Jamison RN) 0819 (Given - Provider: Tricia Jamison RN) 0829 (Given - Provider: Chasidy Ortega RN) sertraline (ZOLOFT) tablet 100 mg 100 mg, Oral, DAILY AT BEDTIME, First dose (after last modification) on Sun09/15/16 at 2100, Until Discontinued, Routine 2107 (Given - Provider: Dania Alexis RN) sertraline (ZOLOFT) tablet 100 mg 100 mg, Oral, DAILY, First dose on 09/16/16 at 0900, Until Discontinued, Routine sertraline (ZOLOFT) tablet 50 mg (CANCELED) 50 mg, Oral, DAILY AT BEDTIME, First dose (after last modification) on Sun09/13/16 at 2300, Until Discontinued, Routine 0148 (Given - Provider: Fareed Black RN)204 (Given - Provider: Aminah Champion RN) sodium [...] 0617, Routine 0827 (Given - Provider: Tricia Jamison RN)0937 (Not Given - Provider: Tricia Jamison RN - Reason: Medication already given) Continuous [...] Lara RN) 0101 (Given - Provider: Aminah Champion, JACK)0539 (Given - Provider: Aminah Champion, RN)1037 (Given - Provider: Tricia Jamison RN)1420 [...] at 999 mL/hr, CONTINUOUS PRN, Starting on 09/13/16 at 1137, Until 09/16/16 [...] 09/13/16 at 1731, Until 09/16/16 at 1333, Gas, Routine, Post-op - Floor 1626 (Given - Provider: Ella Lara RN) documented in this encounter Care Teams Plastic Maker Relationship Specialty Start Date End Date Hilda Eden FNP [address] [place] [address] PCP - General NURSE PRACTITIONER 07/13/13 01/05/18 documented as of this encounter
--- OUTSIDE RECORDS SUMMARY | 2024-08-03 01:41 | XMS_ITS | Encounter Summary ---
Author Organization [facility] Address [address] [place] [address] Care Team Providers Care Intake Coordinator Name Role Phone Hilda Eden RADHA Primary Care Provider [phone] Encounter Details Date Type Department Care Team (Late st Contact Info) Description 08/28/2016 Orders Only [facility] Admitting [address] [place] [address] Stephen Coffman MD [address] [place] [address] Social History Tobacco Use Types Packs/Day Years [...] st Contact Info) Description 10/14/2024 11:00 AM UTILITY BAG ASSEMBLER Office Visit [facility] - [address] [facility] [address] [place] [address] Ubaldo Cardenas MD [address] [facility] [facility] [address] [place] [address] documented as of this encounter Visit Diagnoses Not on filedocumented in this encounter Care Teams Intake Coordinator Relationship Specialty Start Date End Date Hilda Eden FNP [address] [place] [address] PCP - General NURSE PRACTITIONER 07/13/13 01/05/18 documented as of this encounter
--- OUTSIDE RECORDS SUMMARY | 2024-08-03 01:41 | XMS_ITS | Encounter Summary ---
Author Organization [facility] Address [address] [place] [address] Care Team Providers Care Acoustical Carpenter Name Role Phone EdenHilda RADHA Primary Care Provider [phone] Reason for Visit * Outpatient Services (Routine) [...] with mental disorders, second trimester Procedures US BIOPHYSICAL PROF W NST US OB LIMITED + NST Kaden Albert, DO NO ADDRESS ON FILE [facility] Fl [address] [facility] [place] [address] Referral ID Status Reason Start Date Expiration Date Visits Re quested Visits Authorized [id number] Closed 08/31/2016 10/01/2017 1 1 Encounter Details Date Type Department Care Team (Latest Contact Info) Description 09/04/2016 9:05 AM GLOVE CUFFER - 09/04/2016 11:59 PM [email or web address] Hospital Encounter [facility] Maternal and Ground Floor [address] [place] [address] Kaden Albert, DO NO ADDRESS [...] st Contact Info) Description 10/14/2024 11:00 AM GLOVE CUFFER Office Visit [facility] Oncology and Hematology - [address] [facility] [address] [place] [address] Ubaldo Cardenas MD [address] [facility] [address] [place] [address] documented as of this encounter Procedures Procedure Name Priority Date/Time Associated Diagnosis Comments US BIOPHYSICAL PROF W NST Routine 09/04/2016 11:43 AM GLOVE CUFFER Maternal morbid obesity in second trimester, antepartum Morbid obesity, unspecified obesity type care of habitual aborter in second trimester Maternal care due to low transverse uterine scar from previous delivery Supervision of with history of pre-term labor in second trimester with mental disorders, second trimester documented in this encounter Results * US BIOPHYSICAL PROF Dionicio SIMMONS (09/04/2016 11:43 AM GLOVE CUFFER) Anatomical Region Laterality Modality Pelvis Ultrasound 09/04/2016 9:28 AM GLOVE CUFFER Impressions 09/04/2016 11:52 AM GLOVE CUFFER IMPRESSION ----- NON-STRESS TEST IS NON-REACTIVE. BPP is 6/10, no breathing motion noted. testing is equivocal. Narrative 09/04/2016 11:52 AM GLOVE CUFFER BPP with NST Study ----- Pat. Name: VERA PARKER Study Date: 09/04/2016 9:28am Pat. 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 Cholestasis of CODING ----- Diagnosis ? O26.23: care for patient with recurrent loss. ?O34.21: Maternal care for scar from previous delivery. ?O09.213: Supervision of with history of pre-term labor. ?O99.213: Obesity complicating . ?E66.01: Morbid (severe) obesity due to excess calories. ?O99.343: Other mental disorders complicating . ?O26.613: Liver and biliary tract disorders in . ?Z3A.35: Weeks Gestation of . Procedures ?26417: NST/ monitoring. ?45904: Limited 1 or more - NATHAN, FHR, position (modifier 59 for MBPP). HISTORY ----- OB History ?: 12. Para: 1. ?A10L1. ?Miscarriages: 9. Ectopic: 1. Medication ?Ursodiol : 300mg TID. MATERNAL ASSESSMENT ----- Physical Exam ? Weight 105 kg. Blood pressure 129 / 71 mmHg. Heart rate 93 bpm. METHOD ----- EFM, Transabdominal ultrasound examination. [...] cephalic. NON STRESS TEST ----- Reactive FHR: 0 - no. Baseline rate 150 bpm. Duration 70 min. Acceleration: 10 bpm for 10 sec. Deceleration: absent. Uterine activity: absent. Variability: moderate (6-25 bpm). AMNIOTIC FLUID ASSESSMENT ----- MVP 4.6 cm. NATHAN 15.7 cm. Q1 3.9 cm, Q2 3.8 cm, Q3 3.4 cm, Q4 4.6 cm. BIOPHYSICAL PROFILE ----- Qualitative AFV: 2. breathing movements: 0. Gross body movements: 2. tone: 2. Biophysical profile score: . COMMENT ----- Nursing notes: Patient states fetus is active. Patient denies vaginal bleeding or leaking of amniotic fluid. Pt. feeling an occasional mild contraction. Dr. Villa reviewed tracing. BPP ordered. BPP score 01/20. Pt. will return this afternoon for a repeat BPP per Dr. Villa's orders. FOLLOW-UP ----- Patient to return in 4 hours for repeat BPP. Procedure Note Alma Delia Villa DO - 09/04/2016 BPP with NST Study ----- Pat. Name:Michael PARKER Date:09/04/2016 9:28am Pat. 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 O34.21: Maternal care for scar from previouscesarean delivery. O09.213: Supervision of with history ofpre-term labor. O99.213: Obesity complicating . E66.01: Morbid (severe) obesity due to excesscalories. O99.343: Other mental disorders complicatingpregnancy. O26.613: Liver and biliary tract disorders inpregnancy. Z3A.35: Weeks Gestation of . Procedures 22353: NST/ monitoring. 64374: Limited 1 or more - NATHAN, FHR, position(modifier 59 for MBPP). HISTORY ----- OB History : 12. Para: 1. A10L1. Miscarriages: 9. Ectopic: 1. Medication Ursodiol : 300mg TID. MATERNAL ASSESSMENT ----- Physical Exam Weight 105 kg. Blood pressure 129 / 71 mmHg. Heartrate 93 bpm. METHOD ----- EFM, Transabdominal ultrasound examination. [...] cephalic. NON STRESS TEST ----- Reactive FHR: 0 - no. Baseline rate 150 bpm. Duration 70 min.Acceleration: 10 bpm for 10 sec. Deceleration: absent. Uterine activity: absent. Variability: moderate (6-25 bpm). AMNIOTIC FLUID ASSESSMENT ----- MVP 4.6 cm. NATHAN 15.7 cm. Q1 3.9 cm, Q2 3.8 cm, Q3 3.4 cm, Q4 4.6 cm. BIOPHYSICAL PROFILE ----- Qualitative AFV: 2. breathing movements: 0. Gross body movements: 2. tone: 2. Biophysical profile score: . COMMENT ----- Nursing notes: Patient states fetus is active. Patient denies vaginalbleeding or leaking of amniotic fluid. Pt. feeling an occasional mild contraction. Dr. Villa reviewed tracing. BPP ordered.BPP score 01/20. Pt. will return this afternoon for a repeat BPP per Dr. Villa's orders. FOLLOW-UP ----- Patient to return in 4 hours for repeat BPP. IMPRESSION IMPRESSION ----- NON-STRESS TEST IS NON-REACTIVE. BPP is 6/10, no breathing motion noted. testing is equivocal. Kaden Albert DO US ORDERABLES documented in [...] trimester documented in this encounter Care Teams Acoustical Carpenter Relationship Specialty Start Date End Date Hilda Eden FNP [address] [place] [address] PCP - General NURSE PRACTITIONER 07/13/13 01/05/18 documented as of this encounter
--- OUTSIDE RECORDS SUMMARY | 2024-08-03 01:41 | XMS_ITS | Encounter Summary ---
Author Organization [employer] Address [address] [place] [address] Care Team Providers Care Voice Engineer Name Role Phone EdenHilda pastrana RADHA Primary Care Provider [phone] Reason for Referral * Outpatient Services (Routine) [...] Kaden Albert DO NO ADDRESS ON FILE [facility] [place] [address] [place] [address] Referral ID Status Reason Start Date Expiration Date Visits Re quested Visits Authorized [id number] Closed 08/31/2016 10/01/2017 1 1 PRESSURE FIRER Reason for Visit * Outpatient Services (Routine) [...] Ground Fl [address] [place] [address] Referral ID Status Reason Start Date Expiration Date Visits Re quested Visits Authorized [id number] Closed 08/31/2016 10/01/2017 1 1 Encounter Details Date Type Department Care Team (Latest Contact Info) Description 09/07/2016 9:22 AM HIGH PRESSURE FIRER - 09/07/2016 11:59 PM [facility] Hospital Encounter [facility] and Ground Floor [address] [place] [address] [place] [address] Kaden Albert, DO NO ADDRESS [...] st Contact Info) Description 10/14/2024 11:00 AM HIGH PRESSURE FIRER Office Visit [facility] Oncology and Hematology - [place] [address] [facility] [address] [place] [address] Ubaldo Cardenas MD [address] [facility] [address] [place] [address] documented as of this encounter Procedures Procedure Name Priority Date/Time Associated Diagnosis Comments US OB LIMITED + NST Routine 09/07/2016 1 1:40 AM HIGH PRESSURE FIRER Maternal morbid obesity in second trimester, antepartum Morbid obesity, unspecified obesity type care of habitual aborter in second trimester Maternal care due to low transverse uterine scar from previous delivery Supervision of with history of pre-term labor in second trimester with mental disorders, second trimester documented in this encounter Results * US OB LIMITED + NST (09/07/2016 11:40 AM HIGH PRESSURE FIRER) Anatomical Region Laterality Modality Pelvis Ultrasound 09/07/2016 9:53 AM HIGH PRESSURE FIRER Impressions 09/07/2016 11:16 AM HIGH PRESSURE FIRER IMPRESSION ----- NST reactive AFV normal. Narrative 09/07/2016 11:16 AM HIGH PRESSURE FIRER Modified BPP Study ----- Pat. Name: VREA PARKER Study Date: 09/07/2016 9:53am Pat. NO: [id number] Referring ??MD: JERICA JULIEN MD Site: [facility] [employer] Facility Examiner: : 1985 Age: 31 ----- INDICATION ----- Recurrent loss w/o Previous History of PTD Maternal Obesity (bmi>40) Maternal Mental Disorder CODING ----- Diagnosis ? O26.23: care for patient with recurrent loss. ?O34.21: Maternal care for scar from previous delivery. ?O09.213: Supervision of with history of pre-term labor. ?O99.213: Obesity complicating . ?E66.01: Morbid (severe) obesity due to excess calories. ?O99.343: Other mental disorders complicating . ?Z3A.35: Weeks Gestation of . Procedures ?89418: NST/ monitoring. ?52212: Limited 1 or more - NATHAN, FHR, position (modifier 59 for MBPP). HISTORY ----- OB History ?: 12. Para: 1. ?A10L1. ?Miscarriages: 9. Ectopic: 1. Medication ?Ursodiol : 300mg TID. MATERNAL ASSESSMENT ----- Physical Exam ? Weight 105 kg. BMI 37.20 kg/m?. Blood pressure 137 / 75 mmHg. Heart rate 93 bpm. METHOD ----- EFM, Transabdominal ultrasound examination. Good view. ----- [place] . Number of fetuses: 1. DATING ----- GA by stated dating 35 w + 5 d MINDY by stated dating : 10/07/2016 Assigned: Dating performed on 09/07/2016, based on the stated dating Assigned GA 35 w + 5 d Assigned MINDY: 10/07/2016 GENERAL EVALUATION ----- Cardiac activity: present. movements: visualized. Presentation: cephalic. NON STRESS TEST ----- Reactive FHR: yes. Baseline rate 140 bpm. Duration 36 min. Acceleration: 15 bpm for 15 sec. Deceleration: absent. Uterine activity: absent. Variability: moderate (6-25 bpm). AMNIOTIC FLUID ASSESSMENT ----- MVP 3.8 cm. NATHAN 12.1 cm. Q1 2.7 cm, Q2 3.8 cm, Q3 2.3 cm, Q4 3.4 cm. COMMENT ----- Nursing notes: Patient states fetus is active. Patient denies contractions, vaginal bleeding or leaking of amniotic fluid. Patient scheduled twice weekly. Procedure Note Kaden Fisher MD - 09/07/2016 Modified [facility] Study ----- Pat. Name:Michael PARKER Date:09/07/2016 9:53am Pat. NO: [id number] MD:JERICA JULIEN [facility]1985Age:31 ----- INDICATION ----- Recurrent loss w/o Previous History of PTD Maternal Obesity (bmi>40) Maternal Mental Disorder CODING ----- Diagnosis O26.23: care for patient with recurrentpregnancy loss. O34.21: Maternal care for scar from previouscesarean delivery. O09.213: Supervision of with history ofpre-term labor. O99.213: Obesity complicating . E66.01: Morbid (severe) obesity due to excesscalories. O99.343: Other mental disorders complicatingpregnancy. Z3A.35: Weeks Gestation of . Procedures 80807: NST/ monitoring. 81359: Limited 1 or more - NATHAN, FHR, position(modifier 59 for MBPP). HISTORY ----- OB History : 12. Para: 1. A10L1. Miscarriages: 9. Ectopic: 1. Medication Ursodiol : 300mg TID. MATERNAL ASSESSMENT ----- Physical Exam Weight 105 kg. BMI 37.20 kg/m?. Blood pressure 137/ 75 mmHg. Heart rate 93 bpm. METHOD ----- EFM, Transabdominal ultrasound examination. Good view. ----- [place] . Number of fetuses: 1. DATING ----- GA by stated dating 35 w + 5 d MINDY by stated dating :10/07/2016 Assigned:Dating performed on 09/07/2016, based on the stated dating Assigned GA35 w + 5 d Assigned MINDY:10/07/2016 GENERAL EVALUATION ----- Cardiac activity: present. movements: visualized. Presentation: cephalic. NON STRESS TEST ----- Reactive FHR: yes. Baseline rate 140 bpm. Duration 36 min. Acceleration:15 bpm for 15 sec. Deceleration: absent. Uterine activity: absent. Variability: moderate (6-25 bpm). AMNIOTIC FLUID ASSESSMENT ----- MVP 3.8 cm. NATHAN 12.1 cm. Q1 2.7 cm, Q2 3.8 cm, Q3 2.3 cm, Q4 3.4 cm. COMMENT ----- Nursing notes: Patient states fetus is active. Patient deniescontractions, vaginal bleeding or leaking of amniotic fluid. Patient scheduled twice weekly. IMPRESSION IMPRESSION ----- NST reactive AFV normal. Kaden Albert DO ORDERABLES documented in this encounter Visit Diagnoses [...] trimester documented in this encounter Care Teams Voice Engineer Relationship Specialty Start Date End Date Hilda Eden FNP [address] [place] [phone] PCP - General NURSE PRACTITIONER 07/13/13 01/05/18 documented as of this encounter
--- OUTSIDE RECORDS SUMMARY | 2024-08-03 01:41 | XMS_ITS | Encounter Summary ---
Author Organization [employer] Address [address] [place] [address] Care Team Providers Care Newspaper Manager Name Role Phone Hilda Eden RADHA Primary Care Provider [phone] Reason for Visit * Auth/Cert Specialty Diagnoses / Procedures Referred By Reva holbrook Referred To Contact Laboratory [facility] [address] [facility], [place] [address] Referral ID Status Reason Start Date Expiration Date Visits Re quested Visits Authorized [id number] 1 1 Encounter Details Date Type Department Care Team (Late st Contact Info) Description 08/28/2016 12:35 PM RECORDS MANAGEMENT CLERK - 08/28/2016 11:59 PM [facility] Hospital Encounter [facility] [place] [facility] [address] [facility], [place] [address] Della Adames MD [address] [place] [address] Discharge Disposition: Home or Self Care Social [...] st Contact Info) Description 10/14/2024 11:00 AM RECORDS MANAGEMENT CLERK Office Visit [facility] Oncology and Hematology - [place] [address] [place] [address] [facility] [address] [place] [address] Ubaldo Cardenas MD [address] [facility] [address] [place] [address] documented as of this encounter Procedures Procedure Name Priority Date/Time Associated Diagnosis Comments PROTEIN, 24 HR URINE Routine 08/28/2016 4:46 PM RECORDS MANAGEMENT CLERK Calculus of gallbladder with acute cholecystitis documented in this encounter Results * (ABNORMAL) PROTEIN, 24 HR URINE (08/28/2016 4:46 PM RECORDS MANAGEMENT CLERK) LENGTH OF COLLECTION 24 HR URINE 24 24 HR 08/28/2016 9:09 PM RECORDS MANAGEMENT CLERK [facility] VOLUME, 24 HR URINE 2,425 mL 08/28/2016 9:09 PM RECORDS MANAGEMENT CLERK [facility] PROTEIN TOTAL, 24 HR URINE 291(H) <150 mg/24 hrs 08/28/2016 9:09 PM RECORDS MANAGEMENT CLERK [facility] Urine, 24 hour 24 hr urine / Unknown 08/28/2016 4:46 PM RECORDS MANAGEMENT CLERK 08/28/2016 4:51 PM RECORDS MANAGEMENT CLERK Della Adames MD URINE ORDERABLES [facility] [employer] [facility] CLIA# [id number] [address] [place] [address] documented in this encounter Visit Diagnoses Diagnosis Calculus of gallbladder with acute cholecystitis- Primary Calculus of gallbladder with acute cholecystitis, without mention of obstruction documented in this encounter Care Teams Newspaper Manager Relationship Specialty Start Date End Date Hilda Eden FNP [address] [place] [phone] PCP - General NURSE PRACTITIONER 07/13/13 01/05/18 documented as of this encounter
--- OUTSIDE RECORDS SUMMARY | 2024-08-03 01:41 | XMS_ITS | Encounter Summary ---
Author Organization [facility] Address [address] [place] [address] Care Team Providers Care Rag Sorter And Cutter Name Role Phone Hilda Eden RADHA Primary Care Provider [phone] Reason for Visit * Reason Onset Date Comments Results 08/29/2016 Encounter Details Date Type Department Care Team (Late st Contact Info) Description 08/29/2016 Telephone [facility] GAS OPERATIONS ANALYST - [facility] [address], [address] [place] [address] Della Adames MD [address] [place] [address] Results Social History Tobacco Use Types Packs/Day Years [...] encounter Miscellaneous Notes * Telephone Encounter - Lenore Alexis RN - 08/29/2016 9:27 AM CST Result faxed to Dr Meza's office. Dr Meza's office notified. K HANDLER * Telephone Encounter - Lenore Alexis RN - 08/29/2016 9:08 AM CST ----- Message from Della Adames MD sent at 08/29/2016 7:45 AM BLOCK HANDLER ----- Please get this result to Dr Meza. K HANDLER documented in this encounter Plan of Treatment Upcoming Encounters Date Type Department Care Team (Late st Contact Info) Description 10/14/2024 11:00 AM BLOCK HANDLER Office Visit [facility] Oncology and Hematology - [place] [address] [facility] [address] [place] [address] [place] [id number] Ubaldo Cardenas MD [address] [facility] [address] [place] [address] documented as of this encounter Visit Diagnoses Not on filedocumented in this encounter Care Teams Rag Sorter And Cutter Relationship Specialty Start Date End Date Hilda Eden FNP [address] [place] [phone] PCP - General NURSE PRACTITIONER 07/13/13 01/05/18 documented as of this encounter
--- OUTSIDE RECORDS SUMMARY | 2024-08-03 01:42 | XMS_ITS | Encounter Summary ---
[facility] Organization [facility] Address [address] [place] [address] Care Team Providers Care Automotive Mechanic Name Role Phone Hilda Eden RADHA Primary Care Provider [phone] Reason for Visit * Reason Comments Vaginal Bleeding Pt arrived to the Ed with c/o vaginal bleeding and left leg pain. Pt sts she was but unsure how fair along she was. PT sts I just started bleeding * Auth/Cert Specialty Diagnoses / Procedures Referred By Reva holbrook Referred To Contact Obstetrics and Gynecology Procedures LAPAROSCOPY DIAGNOSTIC/OPERATIVE [facility] [address] [place] [address] Referral ID Status Reason Start Date Expiration Date Visits Re quested Visits Authorized [id number] 08/07/2015 09/06/2016 1 Encounter Details Date Type Department Care Team (Late st Contact Info) Description 08/06/2015 7:15 PM IGNITION MECHANIC - 08/06/2015 9:08 PM IGNITION MECHANIC Surgery [facility] Operating Room [address] [place] [address] Ayde Haro MD [address] [facility] [address] [place] [id number] LEFT SALPINGECTOMY LAPAROSCOPIC FOR ECTOPIC Surgery Details Date/Time Status Location OR Service Patient Class Case Class Case Type Trauma Case? 08/06/2015 7:15 PM Posted [facility] OR MAIN OR 04 Gynecology Emergency No Panel 1 Procedure LRB Anes Op Region Wound Class Comments LEFT SALPINGECTOMY LAPAROSCO PIC FOR ECTOPIC N/A General Abdomen Clean-I Surgeon Surgeon Role Service Panel Ayde Alexis MD Primary Gynecolog y 1 documented in this encounter Social History [...] Sign Reading Time Taken Comments Blood Pressure 111/74 08/06/2015 6:00 PM IGNITION MECHANIC Pulse 112 08/06/2015 6:00 PM IGNITION MECHANIC Temperature 36.6 ??C (97.8 ??F) 08/06/2015 1:24 PM CS T Respiratory Rate 22 08/06/2015 2:58 PM IGNITION MECHANIC Oxygen Saturation 96% 08/06/2015 6:00 PM IGNITION MECHANIC Inhaled Oxygen Concentration - - Weight 118.8 kg (262 lb) 08/06/2015 1:24 PM IGNITION MECHANIC Height 167.6 cm (5' 6 ) 08/06/2015 1:24 PM IGNITION MECHANIC Body Mass Index 42.29 08/06/2015 1:24 PM IGNITION MECHANIC documented in this encounter Discharge Summaries * Ayde Alexis MD - 08/07/2015 9:21 AM CST Discharge summary: Admission date: 08/06/2015 Discharge date: 08/07/2015 Admission diagnosis: early , left lower quadrant pain, vaginal bleeding Discharge diagnosis: same, plus ruptured left tubal , s/p diagnostic laparoscopy and left salpingectomy Attending physician: Ayde Alexis MD Procedures: as above Brief history: 30 y.o. admitted to the ED secondary to severe LLQ radiating to her left legand vaginal bleeding. Patient's last menstrual period was 06/15/2015. Her beta HCG was 411.2. Please see H&P for details. Hospital course: On admission, vital signs were normal except tachycardia. On my exam, pt exhibitedsigns of an acute abdomen and she was taken for a diagnostic laparoscopy with high suspicion for ectopic . Please see OP report for details. Postoperative course was uncomplicated. Pain was well-controlled initially with IV narcotics and Toradol. By POD#1, it was controlled with po meds only. Waggoner catheter was discontinued after surgery,and pt was able to spontaneously void with adequate UOP. function: pt tolerated clears well on POD#0 and then regular diet by POD#1. Patient was hemodynamically stable. She was discharged home in stable condition on POD#1. Discharge Meds: Medication List START taking these medications docusate sodium 100 mg capsule Commonly known as: COLACE Take 1 Capsule (100 mg) by mouth 2 times daily. Signed by: Ayde Alexis Quantity: 60 Capsule Refills: 0 CHANGE how you take these medications * ibuprofen 600 mg tablet Commonly known as: MOTRIN What changed: Another medication with the same name was added. Make sure you understand how and when to take each. Take 1 Tab by mouth every 6 hours as needed for Pain. Signed by: Keo Julien Quantity: 60 Tab Refills: 1 * ibuprofen 600 mg tablet Commonly known as: MOTRIN What changed: You were already taking a medication with the same name, and this prescription was added. Make sure you understand how and when to take each. Take 1 Tablet (600 mg) by mouth every 6 hours as needed for Pain, Mild. Signed by: Ayde Alexis Quantity: 60 Tablet Refills: 0 oxyCODONE-acetaminophen 5-325 mg tablet Commonly known as: PERCOCET What changed: - how much to take - when to take this - reasons to take this - Another medication with the same name was removed. Continue taking this medication, and follow the directions you see here. Take 1 Tablet by mouth every 4 hours as needed for Pain, Moderate (For Pain Scale 4-6). Max Daily Amount: 6 Tablet Signed by: Ayde Alexis Quantity: 50 Tablet Refills: 0 * Notice: !!Potential duplicate medications found. Review medication list carefully. CONTINUE taking these medications amitriptyline 50 mg tablet Commonly known as: ELAVIL Take 50 mg by mouth daily at bedtime. Refills: 0 diazepam 5 mg tablet Commonly known as: VALIUM Take 1 Tab by mouth every 8 hours as needed for Anxiety. Signed by: Josiah Layton Quantity: 15 Tab Refills: 0 divalproex 250 mg Extended Release 24 hour tablet Commonly known as: DEPAKOTE ER Take 750 mg by mouth 3 times daily. Refills: 0 FABB ORAL Take by mouth daily. Refills: 0 gabapentin 300 mg capsule Commonly known as: NEURONTIN Take 1 Cap by mouth 3 times daily. Signed by: Josiah Layton Quantity: 20 Cap Refills: 0 nortriptyline 75 mg capsule Commonly known as: PAMELOR Take 75 mg by mouth daily at bedtime. Refills: 0 VITAMIN 27-0.8 mg Tablet Take 1 Tab by mouth daily. Refills: 0 Generic drug: vit-iron fumarate-FA venlafaxine 100 mg tablet Commonly known as: EFFEXOR Take 100 mg by mouth 3 times daily. Refills: 0 STOP taking these medications aspirin 81 mg Tablet, Chewable Commonly known as: KESHA CHEWABLE HYDROcodone-acetaminophen 5-325 mg tablet Commonly known as: NORCO HYDROcodone-acetaminophen 5-500 mg tablet Commonly known as: LORTAB methylPREDNISolone 4 mg Tablets, Dose Pack Commonly known as: MEDROL (FRANK) oxyCODONE-acetaminophen 7.5-325 mg Tablet Commonly known as: PERCOCET You also have another medication with the same name that you need to continue taking as instructed. Where to Get Your Medications Information on where to get these meds is not yet available. Ask your nurse or doctor. - docusate sodium 100 mg capsule - ibuprofen 600 mg tablet - oxyCODONE-acetaminophen 5-325 mg tablet Discharge instructions: see handout TION MECHANIC documented in this encounter Discharge Instructions * Discharge Instructions* Ayde Alexis MD - 08/07/2015 9:20 AM IGNITION MECHANIC Post-operative Instructions: Diagnostic Laparoscopy, Left Salpingectomy for ruptured ectopic It is not uncommon to experience the following symptoms after your discharge from the hospital: ?? Incisional pain ?? Mild nausea ?? Fatigue ?? Constipation ?? Scant vaginal spotting You may remove your dressings the day after your surgery. If you notice any significant redness, drainage or bleeding, please notify us immediately. Please advance slowly to your regular diet. It is not uncommon to have mild nausea after general anesthesia, so avoid spicy foods initially. No sexual intercourse, douching or tampon use for 2-3 weeks after this procedure. You may shower today. Please avoid taking a bath in a tub for 3-4 weeks. Please limit weight lifting: nothing over 20 lb for the next [address] or operate any machinery while still taking your narcotic pain medications. Gradually resume your activities, including climbing stairs. Continue taking deep breaths to expand your lungs and support your abdomen when coughing. You may also try [id number]-[id number] products such as MiraLax or Milk of Magnesia (if you are not allergic) for constipation. Most patients return to theirnormal level of activity within 48 hours. If you experience any of the following, then you should notify us and/or go to the Emergency Department: ?? Fever greater than 100.4 degrees F ?? Increasing and severe abdominal or pelvic pain, not relieved by medications ?? Severe nausea and vomiting ?? Incisional redness or drainage ?? IV site redness ?? Inability to pass gas or have a bowel movement in 2-3 days ?? Vaginal pain or foul-smelling discharge ?? Vaginal bleeding (???like a period?? ) ?? Sudden chest pain, shortness of breath or calf tenderness ?? Flank pain ?? Pain with urination, inability to empty your bladder well, frequency or urgency Keep your scheduled follow up appointment, so that your incisions can be examined and stitches removed. If you have any further questions, please contact Dr. Julien's office. TION MECHANIC documented in this encounter Medications at Time of Discharge Medication Sig Dispensed Refills Start Date End Date oxyCODONE-acetaminophe n (PERCOCET) 5-325 mg tablet Take 1 Tablet by mouth every 4 hours as needed for Pain, Moderate (For Pain Scale 4-6). Max Daily Amount: 6 Tablet 50 Tablet 0 08/07/2015 08/09/2015 docusate sodium (COLACE) 100 mg capsule Take 1 Capsule (100 mg) by mouth 2 times daily. 60 Capsule 0 08/07/2015 09/15/2016 ibuprofen (MOTRIN) 600 mg tablet Take 1 Tablet (600 mg) by mouth every 6 hours as needed for Pain, Mild. 60 Tablet 0 08/07/2015 06/02/2016 amitriptyline (ELAVIL) 50 mg tablet Take 100 mg by mouth daily at bedtime . 06/02/2016 nortriptyline (PAMELOR) 75 mg capsule Take 75 mg by mouth daily at bedtime. 06/02/2016 CYANOCOBALAMIN/FA/PYRI DOXINE (FABB ORAL) Take by mouth daily. 0 09/15/2016 gabapentin (NEURONTIN) 300 mg capsule Take 1 Cap by mouth 3 times daily. 20 Cap 0 07/16/2013 06/02/2016 divalproex SR 24 hour (DEPAKOTE ER) 250 mg tablet Take 750 mg by mouth 3 times daily. 06/02/2016 venlafaxine (EFFEXOR) 100 mg tablet Take 100 mg by mouth 3 times daily. 06/02/2016 diazepam (VALIUM) 5 mg Oral tablet Take 1 Tab by mouth every 8 hours as needed for Anxiety. 15 Tab 0 04/15/2012 06/02/2016 ibuprofen (MOTRIN) 600 mg Oral tablet Take 1 Tab by mouth every 6 hours as needed for Pain. 60 Tab 1 11/24/2010 06/02/2016 vit-iron fumarate-FA ( VITAMIN) 27-0.8 mg Oral Tab Take 1 Tab by mouth daily. 02/03/2017 documented as of this encounter Progress Notes * Oralia Castaneda RN - 08/07/2015 1:51 PM CST Vera Vitale will be discharged via wheelchair to home. Vera Vitale is accompanied by spouseand will be transported via private vehicle. TION MECHANIC * Ayde Alexis MD - 08/07/2015 7:30 AM CST Strip Winder Progress Note Subjective: Patient doing well, some pain when up to bathroom and moving around more. No issues or concerns overnight per RN. Pain well controlled with percocet. Denies nausea, vomiting, chest pain, or shortness of breath. Tolerating PO. Objective: Filed Vitals: 08/06/15 2155 08/06/15 2217 08/07/15 0027 08/07/15 0304 BP: 135/75 146/84 139/75 120/75 Pulse: 115 112 99 107 Temp: 97.7 ??F (36.5 ??C) 98 ??F (36.7 ??C) 98 ??F (36.7 ??C) 98.1 ??F (36.7 ??C) TempSrc: Oral Oral Oral Resp: 18 18 18 18 Height: Weight: SpO2: 100% 98% 98% 98% General: Well-developed, well-nourished female in NAD HEENT: Normocephalic, atraumatic Heart: RRR Lungs: CTAB Abdomen: Soft, ND, mildly tender at port sites, incisions c/d/i x3 Extremities: SCDs in place Intake/Output Summary (Last 24 hours) at 08/07/15 0730 Last data filed at 08/07/15 0628 Gross per 24 hour Intake 1100 ml Output 900 ml Net 200 ml Results for orders placed or performed during the hospital encounter of 08/06/15 (from the past 24 hour(s)) CBC WITH DIFFERENTIAL Result Value Ref Range WBC 7.4 4.0-9.8 K/uL RBC 5.18 (H) 3.90-4.90 M/uL HEMOGLOBIN 14.9 (H) 11.8-14.8 g/dL HEMATOCRIT 44.7 (H) 35.5-44.0 % MCV 86.3 82.0-99.0 fL MCH 28.8 27.2-32.6 pg MCHC 33.3 30.0-36.0 g/dL RDW 14.4 11.5-14.5 % RDW-STDEV 44.4 37.1-48.7 fL PLATELETS 300 140-350 K/uL MPV 8.9 (L) 9.3-12.4 fL NEUTROPHILS 57 45-70 % LYMPHOCYTES 35 16-45 % MONOCYTES 7 3-13 % EOSINOPHILS 1 <7 % BASOPHILS 0 <3 % NEUTROPHIL ABSOLUTE 4.21 1.90-7.00 K/uL LYMPHOCYTE ABSOLUTE 2.55 0.70-4.50 K/uL MONOCYTE ABSOLUTE 0.48 0.10-1.30 K/uL EOSINOPHIL ABSOLUTE 0.10 <0.70 K/uL BASOPHILS ABSOLUTE 0.01 <0.30 K/uL COMPREHENSIVE METABOLIC PANEL Result Value Ref Range SODIUM 140 136-145 mmol/L POTASSIUM 3.6 3.5-5.0 mmol/L CHLORIDE 102 98-107 mmol/L CO2 24 22-29 mmol/L CALCIUM 9.4 8.6-10.2 mg/dL BUN 6 6-20 mg/dL CREATININE 0.73 0.51-0.95 mg/dL GLUCOSE 93 79-99 mg/dL TOTAL PROTEIN 7.7 6.7-8.6 g/dL ALBUMIN 4.8 3.5-5.2 g/dL BILIRUBIN TOTAL 0.3 0.3-1.2 mg/dL ALKALINE PHOSPHATASE 95 35-104 U/L AST 24 <33 U/L ALT 26 <34 U/L GFR >60 >=60 mL/min/1.73 sq meter GFR, >60 >=60 mL/min/1.73 sq meter ANION GAP 14 8-16 mmol/L HCG QUANTITATIVE, BLOOD Result Value Ref Range HCG QUANT, BLOOD 411.2 (H) <5.0 mIU/mL TYPE AND SCREEN Result Value Ref Range ABO GROUP B RH (D) TYPE Positive ANTIBODY SCREEN Negative CBC WITHOUT DIFFERENTIAL Result Value Ref Range WBC 10.7 (H) 4.0-9.8 K/uL RBC 4.30 3.90-4.90 M/uL HEMOGLOBIN 12.3 11.8-14.8 g/dL HEMATOCRIT 37.5 35.5-44.0 % MCV 87.2 82.0-99.0 fL MCH 28.6 27.2-32.6 pg MCHC 32.8 30.0-36.0 g/dL PLATELETS 230 140-350 K/uL MPV 8.8 (L) 9.3-12.4 fL RDW 14.5 11.5-14.5 % RDW-STDEV 45.2 37.1-48.7 fL Assessment/Plan: 30 y.o. female POD#1 s/p Dx Laparoscopy, left salpingectomy for ruptured L ectopic 1. S/p diagnotic lap, L salpingectomy: ?- afebrile, hemodynamically stable ?- UOP adequate 2. Pain: well controlled with percocet 3. Diet/fluids: ADAT 4. DVT prophylaxis: SCDs in place, ambulate 5. Continue post-op care 6. Anticipate discharge home today per attending Radha Jc MD PGY-8 OB ATTENDIN:14 AM I personally saw and evaluated Vera Vitale. I reviewed Dr. Jc's note, assessment and plan. I agree with Dr. Jc, with following exception(s) and/or addition(s): no flatus yet, but feels like she is about to pass it. No n/v. Pain under control, worse in RLQ. Urinating spontaneously BP 102/53 mmHg Pulse 100 Temp(Src) 98.3 ??F (36.8 ??C) (Oral) Resp 16 Ht 5' 6 (1.676 m) Wt 262 lb (118.842 kg) BMI 42.31 kg/m2 SpO2 97% LMP 06/15/2015 Heart: RRR Lungs: CTA bilaterally Abd: normoactive BS, inc are dressed/clean, appropriately tender Ext: no calf tend Hg 12.3 g/dl S/p L/S left salpingectomy for ruptured ectopic POD#1 -pain controlled -hemodynamically stable -normal GI/ function Discussed surgery findings. OK to d/c home after lunch. Precautions/instructions discussed. Pt to see Dr. Julien as scheduled on 08/11. Ayde Alexis MD TION MECHANIC * Lenore Michael MD - 08/07/2015 3:22 AM CST UNDERWRITING MANAGER NOS note Subjective: Patient sleeping now. No events of RN. Up to bathroom once already, some nausea. Pain well controlled. Objective: Filed Vitals: 08/06/15 2155 08/06/15 2217 08/07/15 0027 08/07/15 0304 BP: 135/75 146/84 139/75 120/75 Pulse: 115 112 99 107 Temp: 97.7 ??F (36.5 ??C) 98 ??F (36.7 ??C) 98 ??F (36.7 ??C) 98.1 ??F (36.7 ??C) TempSrc: Oral Oral Oral Resp: 18 18 18 18 Height: Weight: SpO2: 100% 98% 98% 98% General: NAD Heart: RRR Lungs: CTAB Abdomen: Soft, appropriate, dressing clean/dry Extremities: No edema or calf tenderness; SCDs in place Assessment/Plan: 30 y.o. female POD#1 s/p Diagnostic laparoscopy, left salpingectomy for ruptured Lectopic 1. S/p diagnotic lap, L salpingectomy: - afebrile, hemodynamically stable - UOP adequate 2. Pain: well controlled with percocet 3. Diet/fluids: ADAT 4. DVT prophylaxis: SCDs in place, ambulate 5. Continue post-op care Alona Michael MD PGY-1 OB-UNDERWRITING MANAGER Resident, [facility] 08/07/2015 3:23 AM Pager: [phone] TION MECHANIC documented in this encounter H&P Notes * Ayde Alexis MD - 08/06/2015 5:01 PM CST UNDERWRITING MANAGER History & Physical CC: abdominal pain with vaginal bleeding HPI: Vera Vitale is a 30 y.o. @ 6w0d by LMP who presents to the ED complaining of abdominal pain with vaginal bleeding. Pt has very irregular periods however and had her first positive home test last week. Pt has hx of anxiety and is currently having an anxiety attack, not able to answer questions. Per ER notes, pt has had vaginal bleeding for the past few hours with pelvic pain and left lower extremity pain. Her pain is seemingly very significant and has not been adequately controlled with morphine or fentanyl. Pt has a hx of previous miscarriages and so is very concerned that she is having another. While in the position, she is rolling back and forth on the bed stating she just doesn't want to be awake and that she just wants to jump off a bridge. Per her , pt has not had an ectopic before but has had multiple miscarriages. She sees Dr. Smith for infertility. They conceived naturally, has been taking vaginal progesterone. She does nothave a hx of STI's per . Pt has hx of c/s in 2010. ROS: As above. Denies chest pain, shortness of breath, headache, or vision symptoms. OB Hx: OB History Para Term AB SAB TAB Ectopic Multiple Living 4 1 1 0 2 2 0 0 0 1 # Outcome Date GA Lbr Sameer/2nd Weight Sex Delivery Anes PTL Lv 4 Current 3 Term 11/21/10 37w0d 6 lb 15 oz (3.147 kg) M CS-LTranv EPI N Y Comments: No observed anomalies 2 2009 1 2007 UNDERWRITING MANAGER Hx: per , no hx of abnormal paps or std's?? PMHx: anxiety, bipolar PSHx: Past Surgical History Procedure Laterality Date ??? Hx ear surgery ??? Hx cholecystectomy 02/2010 ??? Pr delivery only 11/21/2010 SECTION performed by KEO JULIEN at [facility] L&D ??? Hchg dilitation and curettage 01/14/2014 FHx: denies clotting, bleeding disorders, frequent miscarriages or stillbirths SHx: denies tobacco, alcohol, or illicit drug use Medications: pt and not able to state what meds she is on No current facility-administered medications on file prior to encounter. Current Outpatient Prescriptions on File Prior to Encounter Medication Sig Dispense Refill ??? amitriptyline (ELAVIL) 50 mg tablet Take 50 mg by mouth daily at bedtime. ??? aspirin (KESHA CHEWABLE) 81 mg Tablet, Chewable Take 81 mg by mouth daily. ??? vit-iron fumarate-FA ( VITAMIN) 27-0.8 mg Oral Tab Take 1 Tab by mouth daily. ??? oxyCODONE-acetaminophen (PERCOCET) 7.5-325 mg Tablet Take 1 Tab by mouth every 4 hours as needed for Pain, Moderate. ??? nortriptyline (PAMELOR) 75 mg capsule Take 75 mg by mouth daily at bedtime. ??? CYANOCOBALAMIN/FA/PYRIDOXINE (FABB ORAL) Take by mouth daily. ??? methylPREDNISolone (MEDROL, FRANK,) 4 mg Tablets, Dose Pack As per packet insert 1 Package None ??? gabapentin (NEURONTIN) 300 mg capsule Take 1 Cap by mouth 3 times daily. 20 Cap 0 ??? divalproex SR 24 hour (DEPAKOTE ER) 250 mg tablet Take 750 mg by mouth 3 times daily. ??? venlafaxine (EFFEXOR) 100 mg tablet Take 100 mg by mouth 3 times daily. ??? oxyCODONE-acetaminophen (PERCOCET) 5-325 mg Oral tablet Take 1-2 Tabs by mouth every 6 hours asneeded for Pain, Moderate. 20 Tab None ??? diazepam (VALIUM) 5 mg Oral tablet Take 1 Tab by mouth every 8 hours as needed for Anxiety. 15 Tab 0 ??? methylPREDNISolone (MEDROL, FRANK,) 4 mg Oral DsPk As per package insert 1 Package None ??? HYDROcodone-acetaminophen (LORTAB) 5-500 mg Oral tablet Take 1 Tab by mouth every 4 hours as needed for Pain. 20 Tab None ??? ibuprofen (MOTRIN) 600 mg Oral tablet Take 1 Tab by mouth every 6 hours as needed for Pain. 60 Tab 1 ??? HYDROcodone-acetaminophen (NORCO) 5-325 mg Oral tablet Take 1 Tab by mouth every 4 hours as needed. 50 Tab 0 Allergies Allergen Reactions ??? Adhesive Other (See Comments) Skin irritation ??? Latex Rash Physical Exam: Filed Vitals: 08/06/15 1324 08/06/15 1458 BP: 152/80 116/57 Temp: 97.8 ??F (36.6 ??C) TempSrc: Oral Resp: 18 22 Height: 5' 6 (1.676 m) Weight: 262 lb (118.842 kg) SpO2: 100% 95% General: currently having anxiety attack in distress HEENT: normocephalic, atraumatic, moist mucus membranes Heart: acyanotic Lungs: non-labored breathing Abdomen: obese, unable to assess pain adequately however pt holding left lower quadrant Extremities: no clubbing, cyanosis, or edema. No calf tenderness. BSUS: Endometrial linin.3cm, likely clot, no IUP visualized, no fluid in cul-de-sac, 1.2X1 cm cyst on right adnexa, 2 small cysts on left adnexa Results for orders placed or performed during the hospital encounter of 08/06/15 (from the past 24 hour(s)) CBC WITH DIFFERENTIAL Result Value Ref Range WBC 7.4 4.0-9.8 K/uL RBC 5.18 (H) 3.90-4.90 M/uL HEMOGLOBIN 14.9 (H) 11.8-14.8 g/dL HEMATOCRIT 44.7 (H) 35.5-44.0 % MCV 86.3 82.0-99.0 fL MCH 28.8 27.2-32.6 pg MCHC 33.3 30.0-36.0 g/dL RDW 14.4 11.5-14.5 % RDW-STDEV 44.4 37.1-48.7 fL PLATELETS 300 140-350 K/uL MPV 8.9 (L) 9.3-12.4 fL NEUTROPHILS 57 45-70 % LYMPHOCYTES 35 16-45 % MONOCYTES 7 3-13 % EOSINOPHILS 1 <7 % BASOPHILS 0 <3 % NEUTROPHIL ABSOLUTE 4.21 1.90-7.00 K/uL LYMPHOCYTE ABSOLUTE 2.55 0.70-4.50 K/uL MONOCYTE ABSOLUTE 0.48 0.10-1.30 K/uL EOSINOPHIL ABSOLUTE 0.10 <0.70 K/uL BASOPHILS ABSOLUTE 0.01 <0.30 K/uL COMPREHENSIVE METABOLIC PANEL Result Value Ref Range SODIUM 140 136-145 mmol/L POTASSIUM 3.6 3.5-5.0 mmol/L CHLORIDE 102 98-107 mmol/L CO2 24 22-29 mmol/L CALCIUM 9.4 8.6-10.2 mg/dL BUN 6 6-20 mg/dL CREATININE 0.73 0.51-0.95 mg/dL GLUCOSE 93 79-99 mg/dL TOTAL PROTEIN 7.7 6.7-8.6 g/dL ALBUMIN 4.8 3.5-5.2 g/dL BILIRUBIN TOTAL 0.3 0.3-1.2 mg/dL ALKALINE PHOSPHATASE 95 35-104 U/L AST 24 <33 U/L ALT 26 <34 U/L GFR >60 >=60 mL/min/1.73 sq meter GFR, >60 >=60 mL/min/1.73 sq meter ANION GAP 14 8-16 mmol/L HCG QUANTITATIVE, BLOOD Result Value Ref Range HCG QUANT, BLOOD 411.2 (H) <5.0 mIU/mL Assessment/Plan: 30 y.o. female with vaginal bleeding and abdominal pain in context of positive test 1. Vaginal bleeding - Spontaneous v. Threatened v. Ectopic - Vitals: wnl, Hbg 14.9 - Quant: 412, would not expect to visualize at this level - BSUS: no obvious signs of ectopic - significant anxiety hindering adequate examination - no hx of PID, conceived naturally, no hx of ectopic - SVE:closed/thick - significant pain despite morphine, fentanyl and dilaudid, duration of 6 hrs - given severity and duration of pain without ability to rule out ectopic or torsion, will proceed with diagnostic laparoscopy 2. Anxiety - ativan - stating just doesn't want to be awake , just want to jump off a bridge - may need to consider psych consult 3. Discussed with Dr. Oneill who will be by to see patient DO MAGDALENA Duarte Attendin:22 PM I have seen and personally examined pt. Reviewed chart. 30 y.o. about 6 wks by LMP admitted to ED with heavy vaginal bleeding and severe pain. She saw some spotting yesterday but developed LLQ pain and left thigh pain earlier today. After the painstarted, she had more bleeding. In the past, that's how her miscarriages started. However, this pain is severe and unrelenting, despite multiple doses of pain meds in the ED. Pt had a miscarriage about 6 months ago. This conception was spontaneous. In the past, was treated for infertility. Please see resident's note for PMH, PSH, OBGYN hx, Fam Hx, Soc Hx and ROS BP 111/74 mmHg Pulse 112 Temp(Src) 97.8 ??F (36.6 ??C) (Oral) Resp 22 Ht 5' 6 (1.676 m) Wt 262 lb (118.842 kg) BMI 42.31 kg/m2 SpO2 96% LMP 06/15/2015 General: pt is rolling back and forth on bed, moaning Heart: RRR Lungs: distant breath sounds Abd: hypoactive BS. There is moderate to severe tenderness in LLQ with rebound, no guarding. Mild tenderness in RLQ and suprapubic. Ext: no edema Per Dr. Figueredo, cervix is closed Labs reviewed as above. A/P: Early , miscarriage vs ectopic. Considering the amount of pain and lack of response to pain meds, have to proceed with diagnostic laparoscopy, possible treatment of ectopic . If it turns out there is no ectopic to be identified, then will need to do a D&C. I consented pt and discussed procedure, DDx, risks and benefits. Risks of infection, bleeding possibly requiring blood transfusion, damage to nearby organs were discussed. Proceed with surgery. Ayde Alexis MD TION MECHANIC documented in this encounter OR Notes * OR Anesthesia - Shaheen Fair MD - 08/07/2015 8:53 AM CST 08/07/2015 8:53 AM Vera Vitale No apparent Anesthesia related complications Shaheen Fair MD TION MECHANIC * Operative Report - Ayde Alexis MD - 08/06/2015 9:13 PM IGNITION MECHANIC Operative Report Pre-Operative Diagnosis: early , LLQ pain, suspected ectopic Post-Operative Diagnosis: ruptured ectopic in the left Fallopian tube Procedure: Diagnostic laparoscopy, left salpingectomy Surgeon: Ayde Alexis MD Anesthesia: General ET EBL: none from procedure; about 100 ml of old blood in the pelvis UOP: 500 ml Findings: On exam under anesthesia, vagina, cervix and uterus were found to be wnl. Cervix was closed. On laparoscopic examination, there was about 100 ml of old blood in the pelvis. The left Fallopian tube was engorged with blood clots and was ruptured. No active bleeding was present from it--clotted off. Uterus, right ovary and right Fallopian tube were normal Specimen: left Fallopian tube and ectopic POC Procedure: After obtaining informed consent and reviewing risks, benefits, indications and alternatives, the patient was taken to the OR 4 with IV running. She was placed onto the OR table and general anesthesia was administered. She was then placed in dorsal lithotomy position with Tejas stirups, with arms tucked using a herr bag, and prepped and draped in sterile fashion. Time-out procedure wasdone. A Waggoner catheter was used to empty her bladder. A bivalve speculum was placed into vagina and cervix was visualized and grasped with a STT at the anterior lip. The Hulka uterine manipulator was then placed, STT removed and speculum taken out. Attention was then turned to the abdomen. A 0.25 % marcaine injection was performed and then a small incision was made in the LUQ in the mid-clavicular line under the rib. A Veres needle was insertedand CO2 gas was used at low-flow for pneumoperitoneum. Opening pressure was 5 mmHg. After that, local anesthetic was injected and a 5 mm port was placed in the umbilical region. The Veres needle was removed under direct laparoscopic guidance. Two 5 mm lateral ports on the left and one 11 mm port on the right were then placed under direct visualization. The above findings were noted. The left Fallopian tube was grasped and elevated. Left salpingectomy was performed using LigaSure device. Excellent hemostasis was observed. The specimen was then placed into the Endobag and removed. Pelvis was irrigated. There was some oozing noted close to the IP ligament. It was coagulated and Kim was applied. Excellent hemostasis was obtained. Thefascia was closed with 0-Polysorb at the 11 mm port site using Granny needle. After evacuation of pneumoperitoneum and removal of all ports, the skin was closed with 4-0 Polysorb. A bivalve speculum was placed into vagina again and the Hulka was removed. Cervix was examined and excellent hemostasis was achieved with pressure. Speculum was removed. Waggoner was removed. Pt was then extubated. All lap, needle and instrument counts were correct x2. Pt was not given IV antibiotics prior to procedure. She was taken to the recovery room in stable condition after incisions were dressed. Ayde Aelxis MD TION MECHANIC documented in this encounter ED Notes * Haylie Tony RN - 08/06/2015 7:29 PM CST Pt to OR at this time. TION MECHANIC * Sarah Santos RN - 08/06/2015 7:07 PM CST Report given to Haylie SANTIAGO. TION MECHANIC * Sarah Santos RN - 08/06/2015 7:01 PM CST Pt and aware transport will be coming to get pt. Pt is much calmer and rates pain 8/10 at this time. TION MECHANIC * Sarah Santos RN - 08/06/2015 6:53 PM CST Report given to Christen SANTIAGO in OR. TION MECHANIC * Sarah Santos RN - 08/06/2015 6:16 PM CST OB resident at bedside and informing pt and family, pt will be going to surgery for diagnostic laporoscopy. Pt has been sipping on water [id number] water while in ed, OB resident aware. Family aware tonot let pt have any more to drink. TION MECHANIC * Amisha Grace RN - 08/06/2015 6:02 PM CST OB resident at bedside per internal exam. Pt tearfull. Family at bedside TION MECHANIC * Sarah Santos RN - 08/06/2015 5:42 PM CST Pt repeatedly stating, I don't want to be awake anymore. , and crying. Pt given ativan 1mg iv. Patient/family has been informed about benefits and any potential clinically significant side effects or other concerns regarding the administration of the drug they have just been given. Pt's mom at bedside. TION MECHANIC * Sarah Santos RN - 08/06/2015 5:33 PM CST Pt given benadryl to help pt relax per VO Dr. Walter. Patient/family has been informed about benefits and any potential clinically significant side effects or other concerns regarding the administration of the drug they have just been given. TION MECHANIC * Sarah Santos RN - 08/06/2015 5:23 PM CST OB resident performed vaginal US with Sarah SANTIAGO at bedside. Pt keeps repeating, I don't want to be awake anymore. and crying. Pt encouraged to slow breathing with slow deep breaths, but not following and keeps repeating the same thing. Mom and at bedside. TION MECHANIC * Sarah Santos RN - 08/06/2015 5:[address] Simms from US talking to OB resident. TION MECHANIC * Sarah Santos RN - 08/06/2015 5:00 PM CST Pt given dilaudid per VO dr. Walter. Patient/family has been informed about benefits and any potential clinically significant side effects or other concerns regarding the administration of the drug they have just been given. TION MECHANIC * Sarah Santos RN - 08/06/2015 4:52 PM CST OB resident at bedside. TION MECHANIC * Sarah Santos RN - 08/06/2015 4:48 PM CST Pt states, I just want to be knocked out. I'm going to punch myself in the face. Pt crying and with rocking in pain. Per , pt is bipolar and takes meds for anxiety. Pt and family aware can'tgiven ativan due to class [address] Walter with another pt, will inform Dr. Walter. TION MECHANIC * Sarah Santos RN - 08/06/2015 4:42 PM CST Pt states, just knock me out. , due to the pain. Pt just given fentanyl, asked Dr. Walter for ativan due to pt crying and ativan is a class 4 with , unable to give. The OB resident is coming to see pt and US is coming in to do US. requesting ice water for pt to drink, VO by Dr. Walter to give pt ice water. TION MECHANIC * Sarah Santos RN - 08/06/2015 4:35 PM CST Pt given fentanyl. Patient/family has been informed about benefits and any potential clinically significant side effects or other concerns regarding the administration of the drug they have just beengiven. TION MECHANIC * Sarah Santos RN - 08/06/2015 2:55 PM CST Pt given fentanyl for pain. Patient/family has been informed about benefits and any potential clinically significant side effects or other concerns regarding the administration of the drug they have just been given. at bedside. TION MECHANIC * Sarah Santos RN - 08/06/2015 2:49 PM CST Vaginal exam performed by Dr. Walter with Sarah SANTIAGO at bedside with some vaginal bleeding. TION MECHANIC * Sarah Santos RN - 08/06/2015 2:25 PM CST Pt rything in pain after morphine 4mg given, Dr. Walter aware and mso4 4mg given again per vo. Patient/family has been informed about benefits and any potential clinically significant side effects or other concerns regarding the administration of the drug they have just been given. TION MECHANIC * Sarah Santos RN - 08/06/2015 2:13 PM CST Labs sent. Pt moved to pelvic bed. Pt crying due to pain. Pt given morphine 4mg ivp. Patient/familyhas been informed about benefits and any potential clinically significant side effects or other concerns regarding the administration of the drug they have just been given. Pt's at bedside and instructed to call in 15min in pain is not easing up. TION MECHANIC * Sarah Santos RN - 08/06/2015 1:[address] Walter at bedside. TION MECHANIC * Gutierrez Walter MD - 08/06/2015 1:36 PM CST HISTORY OF PRESENT ILLNESS Vera Vitale, a 30 y.o. female presents to the ED with a Chief Complaint of Vaginal Bleeding Subjective HPI Comments: 1:36 PM: Vera Vitale is a 30 y.o. female who presents to the Emergency Departmentwith constant vaginal bleeding that began about 1 hour ago. She admits to slight vaginal bleeding when wiping yesterday, but her bleeding has increased and is similar to that of a normal menses with tissue being passed. The patient also admits to suprapubic, pelvic pain, and vaginal pain at present. She also has constant LLE pain described as I feel like I'm going to explode. She states she hashad this leg pain with prior miscarriages. Patient states her LMP was 06/25/15. She states she had 5 positive tests at home recently and was seen by Dr. Keo Julien (HEAD INSPECTOR), who bandar labswhich are pending results. (s/p in 2010). 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 No additional complaints at present. Physician(s): Hilda Eden FNP History provided by: The patient and the spouse plumbing designer used: No Arrived by: Private vehicle Arrived from: Home REVIEW OF SYSTEMS Review of Systems Constitutional: Negative for fever and chills. HENT: Negative for sore throat. Respiratory: Negative for cough, chest tightness, shortness of breath and wheezing. Cardiovascular: Negative for chest pain and palpitations. Gastrointestinal: Positive for abdominal pain (suprapubic). Negative for nausea, vomiting, diarrhea, constipation and blood in stool. Endocrine: Negative for polyuria. Genitourinary: Positive for vaginal bleeding, vaginal pain and pelvic pain. Negative for dysuria, urgency, frequency, hematuria, flank pain and difficulty urinating. Musculoskeletal: Negative for back pain and neck pain. +LLE pain Skin: Negative for rash. Allergic/Immunologic: Negative for immunocompromised state. Neurological: Negative for weakness. PAST MEDICAL HISTORY REVIEWED MEDICAL: Patient has a past medical history of MRSA (methicillin resistant Staphylococcus aureus) (08/2009);High cholesterol; Anxiety; and Depression. SURGICAL: Patient has past surgical history that includes ear surgery; cholecystectomy; delivery only (11/21/2010); and [facility] dilitation and curettage (01/14/2014). FAMILY: Patient's family history includes Diabetes in her brother and father; Hypertension in her mother; Thyroid Disease in her father. SOCIAL: reports that she has been smoking Cigarettes. She has a 5 pack-year smoking history. She has never used smokeless tobacco. She reports that she currently engages in sexual activity and has had male partners. She reports using the following method of control/protection: None. She reports that she does not drink alcohol or use illicit drugs. History Vitals ??? Feeding: Breast Fed Social History Other Topics Concern ??? Not on file PROBLEM LIST: Patient has C section 11/21; Normal (single liveborn); and Tobacco use on her problem list. ALLERGIES Adhesive and Latex HOME MEDICATIONS Current Discharge Medication List CONTINUE these medications which have NOT CHANGED Details amitriptyline (ELAVIL) 50 mg tablet Take 50 mg by mouth daily at bedtime. aspirin (KESHA CHEWABLE) 81 mg Tablet, Chewable Take 81 mg by mouth daily. vit-iron fumarate-FA ( VITAMIN) 27-0.8 mg Oral Tab Take 1 Tab by mouth daily. oxyCODONE-acetaminophen (PERCOCET) 7.5-325 mg Tablet Take 1 Tab by mouth every 4 hours as needed for Pain, Moderate. nortriptyline (PAMELOR) 75 mg capsule Take 75 mg by mouth daily at bedtime. CYANOCOBALAMIN/FA/PYRIDOXINE (FABB ORAL) Take by mouth daily. !! methylPREDNISolone (MEDROL, FRANK,) 4 mg Tablets, Dose Pack As per packet insert Qty: 1 Package, Refills: None gabapentin (NEURONTIN) 300 mg capsule Take 1 Cap by mouth 3 times daily. Qty: 20 Cap, Refills: 0 divalproex SR 24 hour (DEPAKOTE ER) 250 mg tablet Take 750 mg by mouth 3 times daily. venlafaxine (EFFEXOR) 100 mg tablet Take 100 mg by mouth 3 times daily. oxyCODONE-acetaminophen (PERCOCET) 5-325 mg Oral tablet Take 1-2 Tabs by mouth every 6 hours as needed for Pain, Moderate. Qty: 20 Tab, Refills: None diazepam (VALIUM) 5 mg Oral tablet Take 1 Tab by mouth every 8 hours as needed for Anxiety. Qty: 15 Tab, Refills: 0 !! methylPREDNISolone (MEDROL, FRANK,) 4 mg Oral DsPk As per package insert Qty: 1 Package, Refills: None HYDROcodone-acetaminophen (LORTAB) 5-500 mg Oral tablet Take 1 Tab by mouth every 4 hours as neededfor Pain. Qty: 20 Tab, Refills: None ibuprofen (MOTRIN) 600 mg Oral tablet Take 1 Tab by mouth every 6 hours as needed for Pain. Qty: 60 Tab, Refills: 1 HYDROcodone-acetaminophen (NORCO) 5-325 mg Oral tablet Take 1 Tab by mouth every 4 hours as needed. Qty: 50 Tab, Refills: 0 !! - Potential duplicate medications found. Please discuss with provider. Objective PHYSICAL EXAM INITIAL VS BP: (!) 152/80 mmHg (08/06/15 132), Heart Rate: 101 bpm (08/06/151323), Resp: 18 (08/06/151323),Temp: 97.8 ??F (36.6 ??C) (08/06/15 132), Temp src: Oral (08/06/151323), SpO2: 100 % (08/06/151323), Height: 5' 6 (167.6 cm) (08/06/15 132), Weight: 118.842 kg (08/06/151323), BMI (Calculated):42.38 (08/06/151323) Patient's last menstrual period was 06/15/2015. Physical Exam Constitutional: She is oriented to person, place, and time. She appears well- developed and well-nourished. She appears distressed (mild). Lying on left side, moving [id number] HENT: Head: Normocephalic and atraumatic. Mouth/Throat: Oropharynx is clear and moist. Eyes: Conjunctivae are normal. Pupils are equal, round, and reactive to light. Neck: Normal range of motion. Cardiovascular: Regular rhythm, normal heart sounds and intact distal pulses. No murmur heard. Tachycardic Pulmonary/Chest: Effort normal and breath sounds normal. She has no wheezes. Abdominal: Soft. Bowel sounds are normal. She exhibits no distension and no mass. There is tenderness. There is no rebound and no guarding. Obese abdomen, nonfocal tenderness, no peritoneal signs Genitourinary: Dark blood in vault No clots Mild active bleeding, no tissue 1 cm dilated os Unable to palpate any masses Musculoskeletal: Normal range of motion. She exhibits no edema. Neurological: She is alert and oriented to person, place, and time. Skin: Skin is warm and dry. No rash noted. Psychiatric: She has a normal mood and affect. Her behavior is normal. Vitals reviewed. DIAGNOSTICS LAB: Labs this ED Encounter CBC WITH DIFFERENTIAL - Abnormal RBC 5.18 (*) HEMOGLOBIN 14.9 (*) HEMATOCRIT 44.7 (*) MPV 8.9 (*) WBC 7.4 MCV 86.3 MCH 28.8 MCHC 33.3 RDW 14.4 RDW-STDEV 44.4 PLATELETS 300 NEUTROPHILS 57 LYMPHOCYTES 35 MONOCYTES 7 EOSINOPHILS 1 BASOPHILS 0 NEUTROPHIL ABSOLUTE 4.21 LYMPHOCYTE ABSOLUTE 2.55 MONOCYTE ABSOLUTE 0.48 EOSINOPHIL ABSOLUTE 0.10 BASOPHILS ABSOLUTE 0.01 HCG QUANTITATIVE, BLOOD - Abnormal HCG QUANT, BLOOD 411.2 (*) Narrative: Result of 5 - 25 mIU/mL is indeterminant for , repeat of test recommemded in 48 hours. Reference Range: Gestational Age HCG Concentration 3 Weeks 5.8 - 71.2 mIU/mL 4 Weeks 9.5 - 750 mIU/mL 5 Weeks 217 - 7138 mIU/mL 6 Weeks 158 - 31,795 mIU/mL 7 Weeks 3697 - 163,563 mIU/mL 8 Weeks 32,065 - 149,571 mIU/mL 9 Weeks 63,803 - 151,410 mIU/mL 10 Weeks 46,509 - 186,977 mIU/mL 12 Weeks 27,832 - 210,612 mIU/mL 14 Weeks 13,950 - 62,530 mIU/mL 15 Weeks 12,039 - 70,971 mIU/mL 16 Weeks 9040 - 56,451 mIU/mL 17 Weeks 8175 - 55,868 mIU/mL 18 Weeks 8099 - 58,176 mIU/mL Heterophile antibodies and other interfering substances in the serum of some patients may cause a false-positive result in this assay. Before making a diagnosis of malignancy or ectopic , the result of this test should be confirmed with a urine HCG test and correlated with other clinical evidence. COMPREHENSIVE METABOLIC PANEL - Normal SODIUM 140 POTASSIUM 3.6 CHLORIDE 102 CO2 24 CALCIUM 9.4 BUN 6 CREATININE 0.73 GLUCOSE 93 TOTAL PROTEIN 7.7 ALBUMIN 4.8 BILIRUBIN TOTAL 0.3 ALKALINE PHOSPHATASE 95 AST 24 ALT 26 GFR >60 GFR, >60 ANION GAP 14 URINALYSIS WITH REFLEX CULTURE RADIOLOGY: US OB LESS THAN 14 WKS SINGLE + TRANSVAG (Results Pending) EKG: PROCEDURES Procedures MEDICAL DECISION MAKING AND PLAN OF CARE Patient is a , LMP 06/15/15, who presents with pelvic pain, abdominal pain and vaginal bleeding. Quantitative hormone level is 411. Unable to get a formal ultrasound at this time. Ultrasound performed by the resident physician did not reveal any IUP, only blood clots within the uterus. It does not reveal an ectopic or any notable amount of intraperitoneal fluid. There is still concern for an ectopic as hCG is quite low. Also concerned for a portion. Patient will go to the OR from the ER for a diagnostic laparoscopy REEVALUATION 2:38 PM: Pelvic exam accompanied by JACK Comer. See physical exam for details. 3:28 PM: Rechecked patient. Patient is writhing around in the bed in pain, stating her pain is worse in the left pelvis; concern for ectopic. Plan for US, recall the HEAD INSPECTOR, and likely admission for pain control. Patient agrees with plan as discussed. 6:14 PM: Patient informed of plan for admission for diagnostic laparotomy. Patient agrees with the plan. ED provider and ED nurse verbally discussed patient plan of care at this time. CASE DISCUSSED 3:23 PM: Discussed the patient's case with Dr. Oneill (HEAD INSPECTOR on-call for Dr. Julien). Recommends repeat HCG on 07/30, hemorrhage return precautions, and pain control. 4:27 PM: Updated Dr. Oneill on my reevaluation and concern for ectopic. Recommends plan for formal US to r/o ectopic. Requests bedside evaluation by HEAD INSPECTOR resident. 4:31 PM: Discussed the patient's case with HEAD INSPECTOR resident. Will evaluate the patient in the ED. 6:12 PM: HEAD INSPECTOR resident has evaluated the patient and discussed with Dr. Oneill. They plan for emergency diagnostic laparoscopy, as the patient's pelvic pain is unwavering and her bleeding is persistent. Patient direct to OR. Accepting physician is Dr. Oneill (HEAD INSPECTOR). Medications Administered During the ED Stay from 08/06/2015 1321 to 08/06/2015 1938 Date/Time Order Dose Route Action 08/06/2015 1406 morphine 4 mg/mL injection 4 mg 4 mg IV Given 08/06/2015 1425 morphine 4 mg/mL injection 4 mg 4 mg IV Given 08/06/2015 1453 fentaNYL PF (SUBLIMAZE) 50 mcg/mL injection 50 mcg 50 mcg IV Given 08/06/2015 1633 fentaNYL PF (SUBLIMAZE) 50 mcg/mL injection 50 mcg 50 mcg IV Given 08/06/2015 1657 hydromorPHONE (DILAUDID) 1 mg/mL injection 1 mg 1 mg IV Given 08/06/2015 1731 diphenhydrAMINE (BENADRYL) injection 25 mg 25 mg IV Given 08/06/2015 1740 LORazepam (ATIVAN) 2 mg/mL injection 1 mg 1 mg IV Given Current Discharge Medication List CONTINUE these medications which have NOT CHANGED Details amitriptyline (ELAVIL) 50 mg tablet Take 50 mg by mouth daily at bedtime. aspirin (KESHA CHEWABLE) 81 mg Tablet, Chewable Take 81 mg by mouth daily. vit-iron fumarate-FA ( VITAMIN) 27-0.8 mg Oral Tab Take 1 Tab by mouth daily. oxyCODONE-acetaminophen (PERCOCET) 7.5-325 mg Tablet Take 1 Tab by mouth every 4 hours as needed for Pain, Moderate. nortriptyline (PAMELOR) 75 mg capsule Take 75 mg by mouth daily at bedtime. CYANOCOBALAMIN/FA/PYRIDOXINE (FABB ORAL) Take by mouth daily. !! methylPREDNISolone (MEDROL, FRANK,) 4 mg Tablets, Dose Pack As per packet insert Qty: 1 Package, Refills: None gabapentin (NEURONTIN) 300 mg capsule Take 1 Cap by mouth 3 times daily. Qty: 20 Cap, Refills: 0 divalproex SR 24 hour (DEPAKOTE ER) 250 mg tablet Take 750 mg by mouth 3 times daily. venlafaxine (EFFEXOR) 100 mg tablet Take 100 mg by mouth 3 times daily. oxyCODONE-acetaminophen (PERCOCET) 5-325 mg Oral tablet Take 1-2 Tabs by mouth every 6 hours as needed for Pain, Moderate. Qty: 20 Tab, Refills: None diazepam (VALIUM) 5 mg Oral tablet Take 1 Tab by mouth every 8 hours as needed for Anxiety. Qty: 15 Tab, Refills: 0 !! methylPREDNISolone (MEDROL, FRANK,) 4 mg Oral DsPk As per package insert Qty: 1 Package, Refills: None HYDROcodone-acetaminophen (LORTAB) 5-500 mg Oral tablet Take 1 Tab by mouth every 4 hours as neededfor Pain. Qty: 20 Tab, Refills: None ibuprofen (MOTRIN) 600 mg Oral tablet Take 1 Tab by mouth every 6 hours as needed for Pain. Qty: 60 Tab, Refills: 1 HYDROcodone-acetaminophen (NORCO) 5-325 mg Oral tablet Take 1 Tab by mouth every 4 hours as needed. Qty: 50 Tab, Refills: 0 !! - Potential duplicate medications found. Please discuss with provider. LAST VS BP: 111/74 mmHg (08/06/15 1800), Heart Rate: 103 bpm (08/06/15 1458), Resp: 22 (08/06/15 1458), Temp: 97.8 ??F (36.6 ??C) (08/06/15 1324), Temp src: Oral (08/06/15 1324), SpO2: 96 % (08/06/15 1800) CLINICAL IMPRESSION Final diagnoses: [Z32.01] Positive blood test (Primary) [O20.9] Vaginal bleeding before 22 weeks gestation CODING MDM Coding Reviewed: previous chart and vitals Reviewed previous: labs Interpretation: SP02, labs and ultrasound Consults: HEAD INSPECTOR DISPOSITION, EDUCATION AND MEDICATION RECONCILIATION Medications reconciled. See after visit summary for patient education on discharged patients. Disposition: Patient admitted to the OR in stable condition. ATTESTATION STATEMENTS This note has been prepared by Maria E Hoffmann acting as a scribe for Dr. Gutierrez Walter on 08/06/2015 at 6:14 PM. The scribe's documentation has been prepared under my direction and personally reviewed by me, JOHN,in its entirety on 08/06/2015 at 8:18 PM. I confirm that the note above accurately reflects all work, treatment, procedures, and medical decision making performed by me. TION MECHANIC * Sarah Santos RN - 08/06/2015 1:30 PM CST Pt in ed 11 c/o vaginal bleeding for 1-2 hrs and left leg pain. Pt believes she is 5.5 weeks preg, last MP=06/20/2015. Per , pt has left leg pain when miscarries. Pt states, i'm unable to stand. TION MECHANIC documented in this encounter Miscellaneous Notes * Care Plan - Oralia Castaneda RN - 08/07/2015 1:43 PM CST Problem: General Plan of Care (Adult, Obstetrics) Goal: Individualization/Patient-Specific Goal (Adult, Obstetrics) The patient and/or their advertising account representative will achieve their patient-specific goals related to the plan of care. The patient-specific goals include:adequate pain control during hospitalization. Outcome: Adequate for Discharge Date Met: 08/07/15 Goal: Plan of Care Review (Adult, Obstetrics) The patient and/or their advertising account representative will communicate an understanding of their plan of care. Outcome: Adequate for Discharge Date Met: 08/07/15 Problem: Ectopic (Obstetrics) Goal: Prevent/Manage Potential Problems Signs and symptoms of listed problems will be absent or manageable. Outcome: Adequate for Discharge Date Met: 08/07/15 TION MECHANIC * Care Plan - Lenore Cleveland RN - 08/07/2015 3:44 AM CST Problem: General Plan of Care (Adult, Obstetrics) Goal: Individualization/Patient-Specific Goal (Adult, Obstetrics) The patient and/or their advertising account representative will achieve their patient-specific goals related to the plan of care. The patient-specific goals include:adequate pain control during hospitalization. Outcome: Progressing Goal: Plan of Care Review (Adult, Obstetrics) The patient and/or their advertising account representative will communicate an understanding of their plan of care. Outcome: Progressing Goal: Identify Discharge Needs Patients discharge needs are identified. Outcome: Progressing Problem: Ectopic (Obstetrics) Goal: Prevent/Manage Potential Problems Signs and symptoms of listed problems will be absent or manageable. Outcome: Progressing TION MECHANIC * Care Plan - Amisha Garza RN - 08/06/2015 9:26 PM CST Potential for anxiety related to surgical intervention Interventions: convey caring/supportive attitude; offer emotional support as needed; provide comfort measures (warm blanket, pillow, quiet environment); allow patient opportunity to verbalize concerns/fears/questions; explore coping behaviors; allow age-specific/special needs family support Expected Outcome: Patient will demonstrate decreased anxiety or adaptive coping strategies Outcome Met: calm Potential for pain related to surgical/procedural intervention Interventions: Assess level of pain/comfort utilizing verbal/nonverbal pain scales; assess culturalor bahai indicators attached to pain; administer pain medications as prescribed; utilize non-pharmacologic pain control and comfort measures Expected Outcome: Patient demonstrates and reports adequate pain control Outcome Met: assess and treat as needed TION MECHANIC documented in this encounter Plan of Treatment Upcoming Encounters Date Type Department Care Team (Late st Contact Info) Description 10/14/2024 11:00 AM IGNITION MECHANIC Office Visit [facility] Oncology and Hematology - [place] [address] [facility] [facility] [address] [place] [address] Ubaldo Cardenas MD [address] [facility] [address] [place] [address] documented as of this encounter Procedures Procedure Name Priority Date/Time Associated Diagnosis Comments TELEMETRY REPORT 08/12/2015 5:57 PM IGNITION MECHANIC CBC WITHOUT DIFFERENTIAL Routine 08/07/2015 6:14 AM IGNITION MECHANIC PATHOLOGY Pathology 08/06/2015 8:25 PM IGNITION MECHANIC TYPE AND SCREEN Stat 08/06/2015 7:25 PM IGNITION MECHANIC SALPINGECTOMY LAPAROSCOPIC 08/06/2015 7:00 PM IGNITION MECHANIC CBC WITH DIFFERENTIAL Stat 08/06/2015 1:55 PM IGNITION MECHANIC HCG QUANTITATIVE, BLOOD Stat 08/06/2015 1:55 PM IGNITION MECHANIC COMPREHENSIVE METABOLIC PANEL Stat 08/06/2015 1:55 PM IGNITION MECHANIC documented in this encounter Results * TELEMETRY REPORT (08/12/2015 5:57 PM IGNITION MECHANIC) Provider Scanning ECG ORDERABLES * (ABNORMAL) CBC WITHOUT DIFFERENTIAL (08/07/2015 6:14 AM IGNITION MECHANIC) WBC 10.7(H) 4.0 - 9.8 K/uL 08/07/2015 6:53 AM IGNITION MECHANIC [facility] RBC 4.30 3.90 - 4.90 M/uL 08/07/2015 6:53 AM [facility] HEMOGLOBIN 12.3 11.8 - 14.8 g/dL 08/07/2015 6:53 AM [facility] HEMATOCRIT 37.5 35.5 - 44.0 % 08/07/2015 6:53 AM [facility] MCV 87.2 82.0 - 99.0 fL 08/07/2015 6:53 AM [facility] [employer] [facility] MCH 28.6 27.2 - 32.6 pg 08/07/2015 6:53 AM [facility] [employer] [facility] MCHC 32.8 30.0 - 36.0 g/dL 08/07/2015 6:53 AM [facility] PLATELETS 230 140 - 350 K/uL 08/07/2015 6:53 AM [facility] [employer] [facility] MPV 8.8(L) 9.3 - 12.4 fL 08/07/2015 6:53 AM [facility] [employer] [facility] RDW 14.5 11.5 - 14.5 % 08/07/2015 6:53 AM [facility] [employer] [facility] RDW-STDEV 45.2 37.1 - 48.7 fL 08/07/2015 6:53 AM [facility] [employer] [facility] Blood Venipuncture - L ab Collect / Unknown 08/07/2015 6:14 AM IGNITION MECHANIC 08/07/2015 6:31 AM IGNITION MECHANIC Ayde Alexis MD HEMATOLOGY ORDERABLES [facility] [employer] [facility] CLIA# [id number] [address] [place] [address] * PATHOLOGY (08/06/2015 8:25 PM IGNITION MECHANIC) CASE REPORT Surgical Pathology Report ? Case: [id number] ? Authorizing Provider: ??Mai-Justine watkins, ?Collected: ? 08/06/2015 08:25 PM ? MD Ayde ? Ordering Location: ? [facility] ?Received: ?08/07/2015 07:51 AM ? Operating Room ? Pathologist: ? Dona Choe MD ? Specimen: ?Fallopian tube, left, Left tube ? 08/09/2015 3:21 PM [facility] FINAL DIAGNOSIS FALLOPIAN TUBE, LEFT, SALPINGECTOMY: - ECTOPIC (TUBAL) GESTATION. - HEMATOSALPINX. - PARATUBAL PARAMESONEPHRIC CYST. 08/09/2015 3:21 PM [facility] IMEN DESCRIPTION Left tube. 08/09/2015 3:21 PM [facility] OPERATIVE PROCEDURE Laparoscopic diagnostic/operative; possible D&C; left salpingectomy laparoscopic for ectopic . 08/09/2015 3:21 PM [facility] GROSS DESCRIPTION Received in a container labeled Vera Vitale, fallopian tube, left is a 5.5 x 3.4 x 1.1-cm aggregate of tissue, received in three pieces. The largest piece consists of a fimbriated end fallopian tube, measuring 6.1 cm in length x 1 to 1.5 cm in diameter. The serosal surface is pink-purple, with scattered thin adhesions. A portion of blood clot extends from the fimbriated end of the specimen. Additionally, there is a 1.7-cm in greatest dimension paratubal cyst at the fimbriated end of the specimen. One of the remaining pieces consists of a 2.4-cm blood clot and a 2-cm x 0.5-cm in diameter tubal structure, which upon cross sectioning appears to be associated with a pinpoint lumen. The vast majority of the specimen is submitted in cassettes A1 through A4, with the fallopian tube in cassettes A2 and A3, fimbriated end completely submitted and A4 containing the separately received loose tissue fragment. STM/geri 08/09/2015 3:21 PM [facility] MICROSCOPIC DESCRIPTION The slides are labeled [id number] and Vera Vitale Microscopic description substantiates the above-cited diagnosis. 08/09/2015 3:21 PM [facility] COMMENT Special stain and/or immunohistochemical results are interpreted with controls that demonstrate appropriate staining reactions. Note on use of immunocytochemistry reagents: This test was developed and its performance characteristic determined by [facility], Department of Laboratory Medicine. It has not been cleared or approved by the U.S. Food and Drug Administration. The FDA has determined that such clearance or approval is not necessary. The test is used for clinical purpose. It should not be regarded as investigational or for research. This laboratory is certified to perform high complexity testing. Case types starting with WS, WF and WH are performed by [address], [place], [address]. All other case types are performed by [facility] [address] [facility] [address]. 08/09/2015 3:[address] [facility] Tissue (Fallopian tube, left) 08/06/2015 8:25 PM IGNITION MECHANIC 08/07/2015 7:51 AM IGNITION MECHANIC Ayde Alexis MD PATHOLOGY/ CYTOLOGY ORDERABLES Performing Organization Address [facility] Co de Phone Number [facility] CLIA# [id number] [facility] [place] [address] * TYPE AND SCREEN (08/06/2015 7:25 PM IGNITION MECHANIC) ABO GROUP B 08/06/2015 8:05 PM IGNITION MECHANIC [facility] RH (D) TYPE Positive 08/06/2015 8:05 PM IGNITION MECHANIC [facility] ANTIBODY SCREEN Negative 08/06/2015 8:05 PM IGNITION MECHANIC [facility] Blood specimen (specimen) Venipuncture - Floor Collect / Unknown 08/06/2015 7:25 PM IGNITION MECHANIC 08/06/2015 7:29 PM IGNITION MECHANIC Ayde Alexis MD BLOOD BANK ORDERABLES Performing Organization Address [facility] Co de Phone Number [facility] CLIA# [id number] [facility] [address] [place] [address] * (ABNORMAL) HCG QUANTITATIVE, BLOOD (08/06/2015 1:55 PM IGNITION MECHANIC) HCG QUANT, BLOOD 411.2(H) <5.0 mIU/mL 08/06/2015 2:[address] [facility] Blood Venipuncture - Floor Collect / Unknown 08/06/2015 1:55 PM IGNITION MECHANIC 08/06/2015 2:15 PM IGNITION MECHANIC Narrative [facility] - 08/06/2015 2:54 PM IGNITION MECHANIC Result of 5 - 25 mIU/mL is indeterminant for , repeat of test recommemded in 48 hours. Reference Range: Gestational Age ? HCG Concentration 3 ??Weeks ?5.8 - 71.2 ? mIU/mL 4 ??Weeks ?9.5 - 750 ?mIU/mL 5 ??Weeks ?217 - 7138 ? mIU/mL 6 ??Weeks ?158 - 31,795 ?? mIU/mL 7 ??Weeks ? 3697 - 163,563 ??mIU/mL 8 ??Weeks ? 32,065 - 149,571 ??mIU/mL 9 ??Weeks ? 63,803 - 151,410 ??mIU/mL 10 Weeks ? 46,509 - 186,977 ??mIU/mL 12 Weeks ? 27,832 - 210,612 ??mIU/mL 14 Weeks ? 13,950 - 62,530 ?? mIU/mL 15 Weeks ? 12,039 - 70,971 ?? mIU/mL 16 Weeks ? 9040 - 56,451 ?? mIU/mL 17 Weeks ? 8175 - 55,868 ?? mIU/mL 18 Weeks ? 8099 - 58,176 ?? mIU/mL Heterophile antibodies and other interfering substances in the serum of some patients may cause a false-positive result in this assay. Before making a diagnosis of malignancy or ectopic , the result of this test should be confirmed with a urine HCG test and correlated with other clinical evidence. Gutierrez Walter MD CHEMISTRY ORDERABLES [employer] [facility] CLIA# [id number] [place] [place] [address] * COMPREHENSIVE METABOLIC PANEL (08/06/2015 1:55 PM IGNITION MECHANIC) SODIUM 140 136 - 145 mmol/L 08/06/2015 2:42 PM [facility] [employer] [facility] POTASSIUM 3.6 3.5 - 5.0 mmol/L 08/06/2015 2:42 PM [facility] [employer] [facility] CHLORIDE 102 98 - 107 mmol/L 08/06/2015 2:42 PM [facility] [employer] [facility] CO2 24 22 - 29 mmol/L 08/06/2015 2:42 PM [facility] [employer] [facility] CALCIUM 9.4 8.6 - 10.2 mg/dL 08/06/2015 2:42 PM [facility] [employer] [facility] BUN 6 6 - 20 mg/dL 08/06/2015 2:42 PM [facility] [employer] [facility] CREATININE 0.73 0.51 - 0.95 mg/dL 08/06/2015 2:42 PM [facility] [employer] [facility] GLUCOSE 93 79 - 99 mg/dL 08/06/2015 2:42 PM [facility] TOTAL PROTEIN 7.7 6.7 - 8.6 g/dL 08/06/2015 2:42 PM [facility] [employer] [facility] ALBUMIN 4.8 3.5 - 5.2 g/dL 08/06/2015 2:42 PM [facility] [employer] [facility] BILIRUBIN TOTAL 0.3 0.3 - 1.2 mg/dL 08/06/2015 2:42 PM [facility] [employer] [facility] ALKALINE PHOSPHATASE 95 35 - 104 U/L 08/06/2015 2:42 PM [facility] [employer] [facility] AST 24 <33 U/L 08/06/2015 2:42 PM [facility] [employer] [facility] ALT 26 <34 U/L 08/06/2015 2:42 PM [facility] [employer] [facility] GFR >60 >=60 mL/min/1.7 3 sq meter 08/06/2015 2:42 PM [facility] [employer] [facility] Comment: eGFR has not been validated [...] GFR, >60 >=60 mL/min/1.7 3 sq meter 08/06/2015 2:42 PM [facility] [employer] [facility] ANION GAP 14 8 - 16 mmol/L 08/06/2015 2:42 PM [facility] [employer] [facility] Blood Venipuncture - Floor Collect / Unknown 08/06/2015 1:55 PM IGNITION MECHANIC 08/06/2015 2:15 PM IGNITION MECHANIC Gutierrez Walter MD CHEMISTRY ORDERABLES [facility] [employer] [facility]# [id number] [address] [place] [address] * (ABNORMAL) CBC WITH DIFFERENTIAL (08/06/2015 1:55 PM IGNITION MECHANIC) WBC 7.4 4.0 - 9.8 K/uL 08/06/2015 2:23 PM [facility] [employer] [facility] RBC 5.18(H) 3.90 - 4.90 M/uL 08/06/2015 2:23 PM [facility] [employer] [facility] HEMOGLOBIN 14.9(H) 11.8 - 14.8 g/dL 08/06/2015 2:23 PM [facility] [employer] [facility] HEMATOCRIT 44.7(H) 35.5 - 44.0 % 08/06/2015 2:23 PM [facility] [employer] [facility] MCV 86.3 82.0 - 99.0 fL 08/06/2015 2:23 PM [facility] [employer] [facility] MCH 28.8 27.2 - 32.6 pg 08/06/2015 2:23 PM [employer] [facility] MCHC 33.3 30.0 - 36.0 g/dL 08/06/2015 2:23 PM [employer] [facility] RDW 14.4 11.5 - 14.5 % 08/06/2015 2:23 PM [employer] [facility] RDW-STDEV 44.4 37.1 - 48.7 fL 08/06/2015 2:23 PM [employer] [facility] PLATELETS 300 140 - 350 K/uL 08/06/2015 2:23 PM [employer] [facility] MPV 8.9(L) 9.3 - 12.4 fL 08/06/2015 2:23 PM [employer] [facility] NEUTROPHILS 57 45 - 70 % 08/06/2015 2:23 PM [employer] [facility] LYMPHOCYTES 35 16 - 45 % 08/06/2015 2:23 PM [employer] [facility] MONOCYTES 7 3 - 13 % 08/06/2015 2:23 PM [employer] [facility] EOSINOPHILS 1 <7 % 08/06/2015 2:23 PM [employer] [facility] BASOPHILS 0 <3 % 08/06/2015 2:23 PM [employer] [facility] NEUTROPHIL ABSOLUTE 4.21 1.90 - 7.00 K/uL 08/06/2015 2:23 PM [employer] [facility] LYMPHOCYTE ABSOLUTE 2.55 0.70 - 4.50 K/uL 08/06/2015 2:23 PM [employer] [facility] MONOCYTE ABSOLUTE 0.48 0.10 - 1.30 K/uL 08/06/2015 2:23 PM [employer] [facility] EOSINOPHIL ABSOLUTE 0.10 <0.70 K/uL 08/06/2015 2:23 PM [employer] [facility] BASOPHILS ABSOLUTE 0.01 <0.30 K/uL 08/06/2015 2:23 PM [employer] [facility] Blood Venipuncture - Floor Collect / Unknown 08/06/2015 1:55 PM IGNITION MECHANIC 08/06/2015 2:15 PM IGNITION MECHANIC Gutierrez Walter MD HEMATOLOGY ORDERABLE S [facility]# [id number] [place] [place] [address] documented in this encounter Visit Diagnoses Not on filedocumented in this encounter Administered Medications Inactive Administered Medications - up to 3 most recent administrations Medication Order MAR Action Action Date Dose Rate Site amitriptyline (ELAVIL) tablet 50 mg 50 mg, Oral, DAILY AT BEDTIME, First dose on Sun08/06/15 at 2215, Until Discontinued, Routine Given 08/07/2015 12:36 AM IGNITION MECHANIC 50 mg bupivacaine-EPINEPHrine (SENSORCAINE-EPINEPHRINE) 0.25 %-1:200,000 injection INTRA-PROCEDURE PRN, Starting on Sun08/06/15 at 2021, Until Sun08/06/15 at 2110, Routine, Intra-op Given 08/06/2015 8:21 PM IGNITION MECHANIC 17 mL Operative Site diphenhydrAMINE (BENADRYL) injection 25 mg 25 mg, IV, ONE TIME ONLY, 1 dose, On Sun08/06/15 at 1730, Routine Given 08/06/2015 5:31 PM IGNITION MECHANIC 25 mg DIPHENHYDRAMINE 50 MG/ML INJECTION SOLUTION 1 dose, Starting on Sun08/06/15 at 1729, Until Sun08/06/15 at 1731, Danielle OMNICELL: cabinet override docusate sodium (COLACE) capsule 100 mg 100 mg, Oral, TWO TIMES DAILY, First dose on Sun08/06/15 at 2215, Until Discontinued, Routine, Post-op - Floor Given 08/07/2015 10:29 AM IGNITION MECHANIC 100 mg Given 08/07/2015 12:36 AM IGNITION MECHANIC 100 mg FENTANYL (PF) 50 MCG/ML INJECTION SOLUTION 1 dose, Starting on Sun08/06/15 at 1452, Until Sun08/06/15 at 1453, Danielle OMNICELL: cabinet override fentaNYL PF (SUBLIMAZE) 50 mcg/mL injection 50 mcg 50 mcg, IV, ONE TIME ONLY, 1 dose, On Sun08/06/15 at 1500, Routine Given 08/06/2015 2:53 PM IGNITION MECHANIC 50 mcg fentaNYL PF (SUBLIMAZE) 50 mcg/mL injection 50 mcg 50 mcg, IV, ONE TIME ONLY, 1 dose, On Sun08/06/15 at 1645, Routine Given 08/06/2015 4:33 PM IGNITION MECHANIC 50 mcg heparin injection 5,000 Units 5,000 Units, subCUT, EVERY 8 HOURS, First dose on 08/07/15 at 1000, Until Discontinued, Routine, Post-op - Floor Given 08/07/2015 10:29 AM IGNITION MECHANIC 5,000 Units Abdominal Tissue hydromorPHONE (DILAUDID) 1 mg/mL injection 1 mg 1 mg, IV, ONE TIME ONLY, 1 dose, On Sun08/06/15 at 1700, Routine Given 08/06/2015 4:57 PM IGNITION MECHANIC 1 mg HYDROMORPHONE 1 MG/ML INJECTION SO 1 dose, Starting on Sun08/06/15 at 1655, Until Sun08/06/15 at 1657, Danielle OMNICELL: cabinet override ketorolac (TORADOL) injection 30 mg 30 mg, IV, EVERY 6 HOURS, 6 doses, First dose on Sun08/07/15 at 0000, Last dose on 08/08/15 at 0600, Routine, Post-op - Floor Given 08/07/2015 12:31 PM IGNITION MECHANIC 30 mg Given 08/07/2015 6:14 AM IGNITION MECHANIC 30 mg Given 08/06/2015 11:37 PM IGNITION MECHANIC 30 mg lactated ringers solution IV, at 125 mL/hr, POST-PROCEDURE CONTINUOUS, Starting on Sun08/06/15 at 2000, Until Sun08/07/15 at 1018, Routine, PACU Bag Switched 08/07/2015 6:14 AM IGNITION MECHANIC 125 mL/hr New Bag 08/06/2015 11:00 PM IGNITION MECHANIC 125 mL/hr LORazepam (ATIVAN) 2 mg/mL injection 1 mg 1 mg, IV, ONE TIME ONLY, 1 dose, On Sun08/06/15 at 1745, Routine Given 08/06/2015 5:40 PM IGNITION MECHANIC 1 mg LORAZEPAM 2 MG/ML INJECTION SOLUTION 1 dose, Starting on Sun08/06/15 at 1737, Until Sun08/06/15 at 1740, Danielle OMNICELL: cabinet override metoclopramide HCl (REGLAN) injection 10 mg 10 mg, IV, EVERY 6 HOURS PRN, Starting on Sun08/06/15 at 2206, Until 08/07/15 at 1552, Nausea/Emesis, Routine, Post-op - Floor Given 08/07/2015 1:03 AM IGNITION MECHANIC 10 mg morphine 4 mg/mL injection 4 mg 4 mg, IV, EVERY 2 HOURS PRN, Starting on Sun08/06/15 at 2206, Until 08/07/15 at 1552, Pain, Mild, For Pain Scale 1-3, Routine, Post-op - Floor Given 08/07/2015 6:28 AM IGNITION MECHANIC 4 mg morphine 4 mg/mL injection 4 mg 4 mg, IV, ONE TIME ONLY, 1 dose, On Sun08/06/15 at 1400, Routine Given 08/06/2015 2:06 PM IGNITION MECHANIC 4 mg morphine 4 mg/mL injection 4 mg 4 mg, IV, ONE TIME ONLY, 1 dose, On Sun08/06/15 at 1430, Routine Given 08/06/2015 2:25 PM IGNITION MECHANIC 4 mg MORPHINE 4 MG/ML INTRAVENOUS SOLUTION 1 dose, Starting on Sun08/06/15 at 1422, Until Sun08/06/15 at 1425, Danielle JONESICELL: cabinet override ondansetron (ZOFRAN) 4 mg/2 mL injection 4 mg 4 mg, IV, EVERY 6 HOURS PRN, Starting on Sun08/06/15 at 2206, Until 08/07/15 at 1552, Nausea/Emesis, Routine, Post-op - Floor Given 08/06/2015 10:59 PM IGNITION MECHANIC 4 mg oxyCODONE-acetaminophen (PERCOCET) 10-325 mg per tablet 1 Tablet 1 Tablet, Oral, EVERY 4 HOURS PRN, Starting on Sun08/06/15 at 2206, Until 08/07/15 at 1552, Pain, Severe, For Pain Scale 7-10, Routine, Post-op - Floor Given 08/07/2015 10:29 A M IGNITION MECHANIC 1 Tablet Given 08/07/2015 12:36 AM IGNITION MECHANIC 1 Tablet sodium chloride 0.9 % irrigation irrigation INTRA-PROCEDURE PRN, Starting on Sun08/06/15 at 2012, Until Sun08/06/15 at 2110, Routine, Intra-op Given 08/06/2015 8:12 PM IGNITION MECHANIC 3,000 mL Opera tive Site Given 08/06/2015 8:10 PM IGNITION MECHANIC 1,000 mL Op erative Site documented in this encounter Active and Recently Administered Medications Times are shown in IGNITION MECHANIC. Scheduled Medication Order 08/05/2015 08/06/2015 08/07/2015 amitriptyline (ELAVIL) tablet 50 mg (CANCELED) 50 mg, Oral, DAILY AT BEDTIME, First dose on Sun08/06/15 at 2215, Until Discontinued, Routine 0036 (Given - Provid er: Lenore Cleveland RN) diphenhydrAMINE (BENADRYL) injection 25 mg (COMPLETED) 25 mg, IV, ONE TIME ONLY, 1 dose, On Sun08/06/15 at 1730, Routine 1731 (Given - Provider: Sarah Santos RN) docusate sodium (COLACE) capsule 100 mg 100 mg, Oral, TWO TIMES DAILY, First dose on Sun08/06/15 at 2215, Until Discontinued, Routine, Post-op - Floor 0036 (Given - Provid er: Lenore Cleveland RN)1029 (Given - Provider: Oralia Castaneda RN) fentaNYL PF (SUBLIMAZE) 50 mcg/mL injection 50 mcg (COMPLETED) 50 mcg, IV, ONE TIME ONLY, 1 dose, On Sun08/06/15 at 1500, Routine 1453 (Given - Provider: Sarah Santos, JACK) fentaNYL PF (SUBLIMAZE) 50 mcg/mL injection 50 mcg (COMPLETED) 50 mcg, IV, ONE TIME ONLY, 1 dose, On Sun08/06/15 at 1645, Routine 1633 (Given - Provider: Sarah Santos, JACK) heparin injection 5,000 Units (CANCELED) 5,000 Units, subCUT, EVERY 8 HOURS, First dose on 08/07/15 at 1000, Until Discontinued, Routine, Post-op - Floor 1029 (Given - Provid er: Oralia Castaneda RN) hydromorPHONE (DILAUDID) 1 mg/mL injection 1 mg (COMPLETED) 1 mg, IV, ONE TIME ONLY, 1 dose, On Sun08/06/15 at 1700, Routine 1657 (Given - Provider: Sarah Santos RN) ketorolac (TORADOL) injection 30 mg (CANCELED) 30 mg, IV, EVERY 6 HOURS, 6 doses, First dose on 08/07/15 at 0000, Last dose on 08/08/15 at 0600, Routine, Post-op - Floor 2337 (Given - Provider: Lenore Cleveland, JACK) 0614 (Given - Provider: Lenore Cleveland RN)1231 (Given - Provider: Oralia Castaneda, JACK) LORazepam (ATIVAN) 2 mg/mL injection 1 mg (COMPLETED) 1 mg, IV, ONE TIME ONLY, 1 dose, On Sun08/06/15 at 1745, Routine 1740 (Given - Provider: Sarah Santos, JACK) morphine 4 mg/mL injection 4 mg (COMPLETED) 4 mg, IV, ONE TIME ONLY, 1 dose, On Sun08/06/15 at 1400, Routine 1406 (Given - Provider: Sarah Santos, RN) morphine 4 mg/mL injection 4 mg (COMPLETED) 4 mg, IV, ONE TIME ONLY, 1 dose, On Sun08/06/15 at 1430, Routine 1425 (Given - Provider: Sarah Santos, JACK) Continuous Medication Order 08/05/2015 08/06/2015 08/07/2015 lactated ringers solution (CANCELED) IV, at 125 mL/hr, POST-PROCEDURE CONTINUOUS, Starting on Sun08/06/15 at 2000, Until 08/07/15 at 1018, Routine, PACU 2300 (New Bag - Provider: Lenore Cleveland RN) 0614 (Bag Switched - Provider: Lenore Cleveland RN)1000 (Stopped - Provider: Oralia Castaneda, JACK) PRN Medication Order 08/05/2015 08/06/2015 08/07/2015 bupivacaine-EPINEPHrine (SENSORCAINE-EPINEPHRINE) 0.25 %-1:200,000 injection (CANCELED) INTRA-PROCEDURE PRN, Starting on Sun08/06/15 at 2021, Until Sun08/06/15 at 2110, Routine, Intra-op 2020 (Given - Provider: Ayde Alexis MD) metoclopramide HCl (REGLAN) injection 10 mg (CANCELED) 10 mg, IV, EVERY 6 HOURS PRN, Starting on Sun08/06/15 at 2206, Until 08/07/15 at 1552, Nausea/Emesis, Routine, Post-op - Floor 0103 (Given - Provid er: Lenore Cleveland RN) morphine 4 mg/mL injection 4 mg (CANCELED) 4 mg, IV, EVERY 2 HOURS PRN, Starting on Sun08/06/15 at 2206, Until 08/07/15 at 1552, Pain, Mild, For Pain Scale 1-3, Routine, Post-op - Floor 0628 (Given - Provid er: Lenore Cleveland RN) ondansetron (ZOFRAN) 4 mg/2 mL injection 4 mg (CANCELED) 4 mg, IV, EVERY 6 HOURS PRN, Starting on Sun08/06/15 at 2206, Until 08/07/15 at 1552, Nausea/Emesis, Routine, Post-op - Floor 2259 (Given - Provider: Lenore Cleveland RN) oxyCODONE-acetaminophen (PERCOCET) 10-325 mg per tablet 1 Tablet (CANCELED) 1 Tablet, Oral, EVERY 4 HOURS PRN, Starting on Sun08/06/15 at 2206, Until 08/07/15 at 1552, Pain, Severe, For Pain Scale 7-10, Routine, Post-op - Floor 0036 (Given - Provid er: Lenore Cleveland RN)1029 (Given - Provider: Oralia Castaneda RN) oxyCODONE-acetaminophen (PERCOCET) 5-325 mg per tablet 1 Tablet 1 Tablet, Oral, EVERY 4 HOURS PRN, Starting on Sun08/06/15 at 2206, Until 08/07/15 at 1552, Pain, Moderate, For Pain Scale 4-6, Routine, Post-op - Floor sodium chloride 0.9 % irrigation irrigation (CANCELED) INTRA-PROCEDURE PRN, Starting on Sun08/06/15 at 2011, Until Sun08/06/15 at 2110, Routine, Intra-op 2009 (Given - Provider: Ayde Alexis MD - Comment: used on the field for trocars)2011 (Given - Provider: Ayde Alexis MD - Comment: used via dav) documented in this encounter Care Teams Automotive Mechanic Relationship Specialty Start Date End Date Hilda Eden FNP [address] [place] [id number] PCP - General NURSE PRACTITIONER 07/13/13 01/05/18 documented as of this encounter
--- OUTSIDE RECORDS SUMMARY | 2024-08-03 01:42 | XMS_ITS | Encounter Summary ---
Author Organization [facility] Address [address] [place] [address] Care Team Providers Care Electric Relay Tester Name Role Phone Hilda Eden RADHA Primary Care Provider [phone] Reason for Visit * Reason Comments Vaginal Bleeding Pt arrived to the Ed with c/o vaginal bleeding and left leg pain. Pt sts she was but unsure how fair along she was. PT sts I just started bleeding * Auth/Cert Specialty Diagnoses / Procedures Referred By Reva t Referred To Contact Obstetrics and Gynecology Procedures LAPAROSCOPY DIAGNOSTIC/OPERATIVE [address] [address] Referral ID Status Reason Start Date Expiration Date Visits Re quested Visits Authorized [id number] 08/07/2015 09/06/2016 1 Encounter Details Date Type Department Care Team (Late st Contact Info) Description 08/06/2015 1:27 PM ALTERNATIVE FINANCING SPECIALIST - 08/07/2015 1:51 PM ALTERNATIVE FINANCING SPECIALIST Emergency [id number] [place] [address] Gutierrez Walter MD [address] [place] [address] Ayde Haro MD [address] [address] Tobacco use Discharge Disposition: Home or Self Care Social [...] Sign Reading Time Taken Comments Blood Pressure 117/72 08/07/2015 11:19 AM ALTERNATIVE FINANCING SPECIALIST Pulse 107 08/07/2015 11:19 AM ALTERNATIVE FINANCING SPECIALIST Temperature 36.6 ??C (97.8 ??F) 08/07/2015 11:[address] Respiratory Rate 18 08/07/2015 11:19 AM ALTERNATIVE FINANCING SPECIALIST Oxygen Saturation 93% 08/07/2015 11:19 AM ALTERNATIVE FINANCING SPECIALIST Inhaled Oxygen Concentration - - Weight 118.8 kg (262 lb) 08/06/2015 1:24 PM ALTERNATIVE FINANCING SPECIALIST Height 167.6 cm (5' 6 ) 08/06/2015 1:24 PM ALTERNATIVE FINANCING SPECIALIST Body Mass Index 42.29 08/06/2015 1:24 PM ALTERNATIVE FINANCING SPECIALIST documented in this encounter Discharge Summaries * [...] 5-325 mg tablet Discharge instructions: see handout RNATIVE FINANCING SPECIALIST documented in this encounter Discharge Instructions * Discharge Instructions* Ayde Alexis MD - 08/07/2015 9:20 AM ALTERNATIVE FINANCING SPECIALIST Post-operative Instructions: Diagnostic Laparoscopy, Left Salpingectomy for [...] abdomen when coughing. You may also try [id number]-[id number] products such as MiraLax or Milk of [...] further questions, please contact Dr. Julien's office. RNATIVE FINANCING SPECIALIST documented in this encounter Medications at Time [...] spouseand will be transported via private vehicle. RNATIVE FINANCING SPECIALIST * Ayde Alexis MD - 08/07/2015 7:30 AM CST Press Brake Operator Progress Note Subjective: Patient doing well, some [...] as scheduled on 08/11. Ayde Alexis MD RNATIVE FINANCING SPECIALIST * Lenore Michael MD - 08/07/2015 3:22 AM CST COLOR DRUM WORKER NOS note Subjective: Patient sleeping now. No [...] Continue post-op care Alona Michael MD PGY-1 OB-COLOR DRUM WORKER Resident, [facility] 08/07/2015 3:23 AM Pager: [phone] RNATIVE FINANCING SPECIALIST documented in this encounter H&P Notes * Ayde Alexis MD - 08/06/2015 5:01 PM CST COLOR DRUM WORKER History & Physical CC: abdominal pain with [...] N Y Comments: No observed anomalies 2 SAB 2009 1 SAB 2007 COLOR DRUM WORKER Hx: per , no hx of abnormal paps or std's?? PMHx: anxiety, bipolar PSHx: Past Surgical History Procedure Laterality Date ??? Hx ear surgery ??? Hx cholecystectomy 02/2010 ??? Pr delivery only 11/21/2010 SECTION performed by KEO JULIEN at [facility] L&D ??? Hchg dilitation and [...] discussed. Proceed with surgery. Ayde Alexis MD RNATIVE FINANCING SPECIALIST documented in this encounter OR Notes * OR Anesthesia - Shaheen Fair MD - 08/07/2015 8:53 AM CST 08/07/2015 8:53 AM Vera Najera Winifred No apparent Anesthesia related complications Shaheen Fair MD RNATIVE FINANCING SPECIALIST * Operative Report - Ayde Alexis MD - 08/06/2015 9:13 PM ALTERNATIVE FINANCING SPECIALIST Operative Report Pre-Operative Diagnosis: early , LLQ [...] stable condition after incisions were dressed. Ayde Alexis MD RNATIVE FINANCING SPECIALIST documented in this encounter ED Notes * Haylie Tony RN - 08/06/2015 7:29 PM CST Pt to OR at this time. RNATIVE FINANCING SPECIALIST * Sarah Santos RN - 08/06/2015 7:07 PM CST Report given to Haylie SANTIAGO. RNATIVE FINANCING SPECIALIST * Sarah Santos RN - 08/06/2015 7:01 PM CST Pt and aware transport will be coming to get pt. Pt is much calmer and rates pain 8/10 at this time. RNATIVE FINANCING SPECIALIST * Sarah Santos RN - 08/06/2015 6:53 PM CST Report given to Christen SANTIAGO in OR. RNATIVE FINANCING SPECIALIST * Sarah Santos RN - 08/06/2015 6:16 PM CST OB resident at bedside and informing pt and family, pt will be going to surgery for diagnostic laporoscopy. Pt has been sipping on water [id number] water while in ed, OB resident aware. Family aware tonot let pt have any more to drink. RNATIVE FINANCING SPECIALIST * Amisha Grace RN - 08/06/2015 6:02 PM CST OB resident at bedside per internal exam. Pt tearfull. Family at bedside RNATIVE FINANCING SPECIALIST * Sarah Santos RN - 08/06/2015 5:42 PM CST Pt repeatedly stating, I don't want to be awake anymore. , and crying. Pt given ativan 1mg iv. Patient/family has been informed about benefits and any potential clinically significant side effects or other concerns regarding the administration of the drug they have just been given. Pt's mom at bedside. RNATIVE FINANCING SPECIALIST * Sarah Santos RN - 08/06/2015 5:33 PM CST Pt given benadryl to help pt relax per VO Dr. Walter. Patient/family has been informed about benefits and any potential clinically significant side effects or other concerns regarding the administration of the drug they have just been given. RNATIVE FINANCING SPECIALIST * Sarah Santos RN - 08/06/2015 5:23 PM CST OB resident performed vaginal US with Sarah SANTIAGO at bedside. Pt keeps repeating, I don't want to be awake anymore. and crying. Pt encouraged to slow breathing with slow deep breaths, but not following and keeps repeating the same thing. Mom and at bedside. RNATIVE FINANCING SPECIALIST * Sarah Santos RN - 08/06/2015 5:[address] Simms from US talking to OB resident. RNATIVE FINANCING SPECIALIST * Sarah Santos RN - 08/06/2015 5:00 PM CST Pt given dilaudid per VO dr. Walter. Patient/family has been informed about benefits and any potential clinically significant side effects or other concerns regarding the administration of the drug they have just been given. RNATIVE FINANCING SPECIALIST * Sarah Santos RN - 08/06/2015 4:52 PM CST OB resident at bedside. RNATIVE FINANCING SPECIALIST * Sarah Santos RN - 08/06/2015 4:48 [...] with another pt, will inform Dr. Walter. RNATIVE FINANCING SPECIALIST * Sarah Santos RN - 08/06/2015 4:42 [...] Dr. Walter to give pt ice water. RNATIVE FINANCING SPECIALIST * Sarah Santos RN - 08/06/2015 4:35 PM CST Pt given fentanyl. Patient/family has been informed about benefits and any potential clinically significant side effects or other concerns regarding the administration of the drug they have just beengiven. RNATIVE FINANCING SPECIALIST * Sarah Santos RN - 08/06/2015 2:55 PM CST Pt given fentanyl for pain. Patient/family has been informed about benefits and any potential clinically significant side effects or other concerns regarding the administration of the drug they have just been given. at bedside. RNATIVE FINANCING SPECIALIST * Sarah Santos RN - 08/06/2015 2:49 PM CST Vaginal exam performed by Dr. Walter with Sarah SANTIAGO at bedside with some vaginal bleeding. RNATIVE FINANCING SPECIALIST * Sarah Santos RN - 08/06/2015 2:25 PM CST Pt rything in pain after morphine 4mg given, Dr. Walter aware and mso4 4mg given again per vo. Patient/family has been informed about benefits and any potential clinically significant side effects or other concerns regarding the administration of the drug they have just been given. RNATIVE FINANCING SPECIALIST * Sarah Santos RN - 08/06/2015 2:13 [...] 15min in pain is not easing up. RNATIVE FINANCING SPECIALIST * Sarah Santos RN - 08/06/2015 1:[address] Walter at bedside. RNATIVE FINANCING SPECIALIST * Gutierrez Walter MD - 08/06/2015 1:36 [...] and was seen by Dr. Keo Julien (ROUGE MIXER), who bandar labswhich are pending results. (s/p in 2010). 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 No additional complaints at present. Physician(s): Hilda Eden FNP History provided by: The patient and the spouse equipment operator intermodal yard used: No Arrived by: Private vehicle Arrived [...] ear surgery; cholecystectomy; delivery only (11/21/2010); and hchg dilitation and curettage (01/14/2014). FAMILY: Patient's family [...] INITIAL VS BP: (!) 152/80 mmHg (08/06/15 1324), Heart Rate: 101 bpm (08/06/15 1324), Resp: 18 (08/06/151323),Temp: 97.8 ??F (36.6 ??C) (08/06/151323), Temp src: Oral (08/06/151323), SpO2: 100 % (08/06/151323), Height: 5' 6 (167.6 cm) (08/06/151323), Weight: 118.842 kg (08/06/151323), BMI (Calculated):42.38 (08/06/151323) Patient's last menstrual period was 06/15/2015. Physical Exam Constitutional: She is oriented to person, place, and time. She appears well- developed and well-nourished. She appears distressed (mild). Lying on left side, moving [id number] HENT: Head: Normocephalic and atraumatic. Mouth/Throat: Oropharynx [...] for ectopic. Plan for US, recall the ROUGE MIXER, and likely admission for pain control. Patient agrees with plan as discussed. 6:14 PM: Patient informed of plan for admission for diagnostic laparotomy. Patient agrees with the plan. ED provider and ED nurse verbally discussed patient plan of care at this time. CASE DISCUSSED 3:23 PM: Discussed the patient's case with Dr. Oneill (ROUGE MIXER on-call for Dr. Julien). Recommends repeat HCG on 07/30, hemorrhage return precautions, and pain control. 4:27 PM: Updated Dr. Oneill on my reevaluation and concern for ectopic. Recommends plan for formal US to r/o ectopic. Requests bedside evaluation by ROUGE MIXER resident. 4:31 PM: Discussed the patient's case with ROUGE MIXER resident. Will evaluate the patient in the ED. 6:12 PM: ROUGE MIXER resident has evaluated the patient and discussed with Dr. Oneill. They plan for emergency diagnostic laparoscopy, as the patient's pelvic pain is unwavering and her bleeding is persistent. Patient direct to OR. Accepting physician is Dr. Oneill (ROUGE MIXER). Medications Administered During the ED Stay from [...] labs Interpretation: SP02, labs and ultrasound Consults: ROUGE MIXER DISPOSITION, EDUCATION AND MEDICATION RECONCILIATION Medications reconciled. [...] and medical decision making performed by me. RNATIVE FINANCING SPECIALIST * Sarah Santos RN - 08/06/2015 1:30 PM CST Pt in ed 11 c/o vaginal bleeding for 1-2 hrs and left leg pain. Pt believes she is 5.5 weeks preg, last MP=06/20/2015. Per , pt has left leg pain when miscarries. Pt states, i'm unable to stand. RNATIVE FINANCING SPECIALIST documented in this encounter Miscellaneous Notes * Care Plan - Oralia Castaneda RN - 08/07/2015 1:43 PM CST Problem: General Plan of Care (Adult, Obstetrics) Goal: Individualization/Patient-Specific Goal (Adult, Obstetrics) The patient and/or their software sales representative will achieve their patient-specific goals related to the plan of care. The patient-specific goals include:adequate pain control during hospitalization. Outcome: Adequate for Discharge Date Met: 08/07/15 Goal: Plan of Care Review (Adult, Obstetrics) The patient and/or their software sales representative will communicate an understanding of their plan of care. Outcome: Adequate for Discharge Date Met: 08/07/15 Problem: Ectopic (Obstetrics) Goal: Prevent/Manage Potential Problems Signs and symptoms of listed problems will be absent or manageable. Outcome: Adequate for Discharge Date Met: 08/07/15 RNATIVE FINANCING SPECIALIST * Care Plan - Lenore Cleveland RN - 08/07/2015 3:44 AM CST Problem: General Plan of Care (Adult, Obstetrics) Goal: Individualization/Patient-Specific Goal (Adult, Obstetrics) The patient and/or their software sales representative will achieve their patient-specific goals related to the plan of care. The patient-specific goals include:adequate pain control during hospitalization. Outcome: Progressing Goal: Plan of Care Review (Adult, Obstetrics) The patient and/or their software sales representative will communicate an understanding of their plan of care. Outcome: Progressing Goal: Identify Discharge Needs Patients discharge needs are identified. Outcome: Progressing Problem: Ectopic (Obstetrics) Goal: Prevent/Manage Potential Problems Signs and symptoms of listed problems will be absent or manageable. Outcome: Progressing RNATIVE FINANCING SPECIALIST * Care Plan - Amisha Garza RN [...] pain/comfort utilizing verbal/nonverbal pain scales; assess culturalor congregational indicators attached to pain; administer pain medications as prescribed; utilize non-pharmacologic pain control and comfort measures Expected Outcome: Patient demonstrates and reports adequate pain control Outcome Met: assess and treat as needed RNATIVE FINANCING SPECIALIST documented in this encounter Plan of Treatment Upcoming Encounters Date Type Department Care Team (Late st Contact Info) Description 10/14/2024 11:00 AM ALTERNATIVE FINANCING SPECIALIST Office Visit [facility] Oncology and Hematology - Alirio [address] [facility] [address] [place] [address] Ubaldo Cardenas MD [address] [facility] [address] [place] [address] documented as of this encounter Procedures Procedure Name Priority Date/Time Associated Diagnosis Comments TELEMETRY REPORT 08/12/2015 5:57 PM ALTERNATIVE FINANCING SPECIALIST CBC WITHOUT DIFFERENTIAL Routine 08/07/2015 6:14 AM ALTERNATIVE FINANCING SPECIALIST PATHOLOGY Pathology 08/06/2015 8:25 PM ALTERNATIVE FINANCING SPECIALIST TYPE AND SCREEN Stat 08/06/2015 7:25 PM ALTERNATIVE FINANCING SPECIALIST SALPINGECTOMY LAPAROSCOPIC 08/06/2015 7:00 PM ALTERNATIVE FINANCING SPECIALIST CBC WITH DIFFERENTIAL Stat 08/06/2015 1:55 PM ALTERNATIVE FINANCING SPECIALIST HCG QUANTITATIVE, BLOOD Stat 08/06/2015 1:55 PM ALTERNATIVE FINANCING SPECIALIST COMPREHENSIVE METABOLIC PANEL Stat 08/06/2015 1:55 PM ALTERNATIVE FINANCING SPECIALIST documented in this encounter Results * TELEMETRY REPORT (08/12/2015 5:57 PM ALTERNATIVE FINANCING SPECIALIST) Provider Scanning ECG ORDERABLES * (ABNORMAL) CBC WITHOUT DIFFERENTIAL (08/07/2015 6:14 AM ALTERNATIVE FINANCING SPECIALIST) WBC 10.7(H) 4.0 - 9.8 K/uL 08/07/2015 6:53 AM ALTERNATIVE FINANCING SPECIALIST [facility] RBC 4.30 3.90 - 4.90 M/uL 08/07/2015 6:53 AM ALTERNATIVE FINANCING SPECIALIST [facility] HEMOGLOBIN 12.3 11.8 - 14.8 g/dL 08/07/2015 6:53 AM ALTERNATIVE FINANCING SPECIALIST [facility] [employer] [facility] HEMATOCRIT 37.5 35.5 - 44.0 % 08/07/2015 6:53 AM [facility] MCV 87.2 82.0 - 99.0 fL 08/07/2015 6:53 AM [facility] MCH 28.6 27.2 - 32.6 pg 08/07/2015 6:53 AM [facility] [employer] [facility] MCHC 32.8 30.0 - 36.0 g/dL 08/07/2015 6:53 AM [facility] [employer] [facility] PLATELETS 230 140 - 350 K/uL 08/07/2015 6:53 AM [facility] [employer] [facility] MPV 8.8(L) 9.3 - 12.4 fL 08/07/2015 6:53 AM [facility] [employer] [facility] RDW 14.5 11.5 - 14.5 % 08/07/2015 6:53 AM [facility] [employer] [facility] RDW-STDEV 45.2 37.1 - 48.7 fL 08/07/2015 6:53 AM [facility] [employer] [facility] Blood Venipuncture - L ab Collect / Unknown 08/07/2015 6:14 AM ALTERNATIVE FINANCING SPECIALIST 08/07/2015 6:31 AM ALTERNATIVE FINANCING SPECIALIST Ayde Alexis MD HEMATOLOGY ORDERABLES [facility] [employer] [facility]# [id number] [address] [facility] [place] [place] [address] * PATHOLOGY (08/06/2015 8:25 PM ALTERNATIVE FINANCING SPECIALIST) CASE REPORT Surgical Pathology Report ? Case: [id number] ? Authorizing Provider: ??Efrain watkins, ?Collected: ? 08/06/2015 08:25 PM ? MD Ayde ? Ordering Location: ? [facility] ?Received: ?08/07/2015 07:51 AM ? Operating Room ? Pathologist: ? Dona Choe MD ? Specimen: ?Fallopian tube, left, Left tube ? 08/09/2015 3:21 PM [facility] [employer] [facility] FINAL DIAGNOSIS FALLOPIAN TUBE, LEFT, SALPINGECTOMY: - ECTOPIC (TUBAL) GESTATION. - HEMATOSALPINX. - PARATUBAL PARAMESONEPHRIC CYST. 08/09/2015 3:21 PM [facility] [employer] [facility] IMEN DESCRIPTION Left tube. 08/09/2015 3:21 PM [facility] OPERATIVE PROCEDURE Laparoscopic diagnostic/operative; possible D&C; left salpingectomy laparoscopic for ectopic . 08/09/2015 3:21 PM [facility] GROSS DESCRIPTION Received in a container labeled Vera Vitale., fallopian tube, left is a 5.5 x [...] containing the separately received loose tissue fragment. MARIO/geri 08/09/2015 3:21 PM [facility] MICROSCOPIC DESCRIPTION The slides are labeled [id number] and Vera Vitale Microscopic description substantiates the above-cited diagnosis. 08/09/2015 3:21 PM [facility] COMMENT Special stain and/or immunohistochemical results are interpreted with controls that demonstrate appropriate staining reactions. Note on use of immunocytochemistry reagents: This test was developed and its performance characteristic determined by [facility], Department of Laboratory Medicine. It has not [...] WS, WF and WH are performed by [address], [address]. All other case types are performed by [address] [facility], [address]. 08/09/2015 3:21 PM ALTERNATIVE FINANCING SPECIALIST [facility] [employer] [facility] Tissue (Fallopian tube, left) 08/06/2015 8:25 PM ALTERNATIVE FINANCING SPECIALIST 08/07/2015 7:51 AM ALTERNATIVE FINANCING SPECIALIST Ayde Alexis MD PATHOLOGY/ CYTOLOGY ORDERABLES Performing Organization Address [facility]/ZIP Co de Phone Number [facility]# [id number] [facility] [place] [address] * TYPE AND SCREEN (08/06/2015 7:25 PM ALTERNATIVE FINANCING SPECIALIST) ABO GROUP B 08/06/2015 8:05 PM ALTERNATIVE FINANCING SPECIALIST [facility] RH (D) TYPE Positive 08/06/2015 8:05 PM ALTERNATIVE FINANCING SPECIALIST [facility] ANTIBODY SCREEN Negative 08/06/2015 8:05 PM ALTERNATIVE FINANCING SPECIALIST [facility] Blood specimen (specimen) Venipuncture - Floor Collect / Unknown 08/06/2015 7:25 PM ALTERNATIVE FINANCING SPECIALIST 08/06/2015 7:29 PM ALTERNATIVE FINANCING SPECIALIST Ayde Alexis MD BLOOD BANK ORDERABLES Performing Organization Address [facility] Co de Phone Number [facility]# [id number] [address] [place] [address] * (ABNORMAL) HCG QUANTITATIVE, BLOOD (08/06/2015 1:55 PM ALTERNATIVE FINANCING SPECIALIST) HCG QUANT, BLOOD 411.2(H) <5.0 mIU/mL 08/06/2015 2:54 PM ALTERNATIVE FINANCING SPECIALIST [facility] Blood Venipuncture - Floor Collect / Unknown 08/06/2015 1:55 PM ALTERNATIVE FINANCING SPECIALIST 08/06/2015 2:15 PM ALTERNATIVE FINANCING SPECIALIST Narrative [facility] - 08/06/2015 2:54 PM ALTERNATIVE FINANCING SPECIALIST Result of 5 - 25 mIU/mL is indeterminant for , repeat of test recommemded in 48 hours. Reference Range: Gestational Age ? HCG Concentration 3 ??Weeks ?5.8 - 71.2 ? mIU/mL 4 ??Weeks ?9.5 - 750 ?mIU/mL 5 ??Weeks ?217 - 1438 ? mIU/mL 6 ??Weeks ?158 - 31,795 [...] clinical evidence. Gutierrez Walter MD CHEMISTRY ORDERABLES Performing Organization Address [facility]/State/[facility] Co de Phone Number [facility]# [id number] [address] [facility] [place] [address] * COMPREHENSIVE METABOLIC PANEL (08/06/2015 1:55 PM [facility]) SODIUM 140 136 - 145 mmol/L 08/06/2015 2:42 PM [facility] [employer] [facility] POTASSIUM 3.6 3.5 - 5.0 mmol/L 08/06/2015 2:42 PM [facility] [employer] [facility] CHLORIDE 102 98 - 107 mmol/L 08/06/2015 2:42 PM ALTERNATIVE FINANCING SPECIALIST [employer] [facility] CO2 24 22 - 29 mmol/L 08/06/2015 2:42 PM [facility] [employer] [facility] CALCIUM 9.4 8.6 - 10.2 mg/dL 08/06/2015 2:42 PM ALTERNATIVE FINANCING SPECIALIST [employer] [facility] BUN 6 6 - 20 mg/dL 08/06/2015 2:42 PM [facility] [employer] [facility] CREATININE 0.73 0.51 - 0.95 mg/dL 08/06/2015 2:42 PM [facility] [employer] [facility] GLUCOSE 93 79 - 99 mg/dL 08/06/2015 2:42 PM [facility] [employer] [facility] TOTAL PROTEIN 7.7 6.7 - 8.6 g/dL 08/06/2015 2:42 PM ALTERNATIVE FINANCING SPECIALIST [employer] [facility] ALBUMIN 4.8 3.5 - 5.2 g/dL 08/06/2015 2:42 PM [employer] [facility] BILIRUBIN TOTAL 0.3 0.3 - 1.2 mg/dL 08/06/2015 2:42 PM ALTERNATIVE FINANCING SPECIALIST [employer] [facility] ALKALINE PHOSPHATASE 95 35 - 104 U/L 08/06/2015 2:42 PM ALTERNATIVE FINANCING SPECIALIST [employer] [facility] AST 24 <33 U/L 08/06/2015 2:42 PM [facility] ALT 26 <34 U/L 08/06/2015 2:42 PM [employer] [facility] GFR >60 >=60 mL/min/1.7 3 sq meter 08/06/2015 2:42 PM [employer] [facility] Comment: eGFR [...] mL/min/1.7 3 sq meter 08/06/2015 2:42 PM [facility] [employer] [facility]ORY SERVICES - [facility] ANION GAP 14 8 - 16 mmol/L 08/06/2015 2:42 PM [facility] [employer] [facility] Blood Venipuncture - Floor Collect / Unknown 08/06/2015 1:55 PM ALTERNATIVE FINANCING SPECIALIST 08/06/2015 2:15 PM ALTERNATIVE FINANCING SPECIALIST Gutierrez Walter MD CHEMISTRY ORDERABLES [employer] [facility]# [id number] [address] [facility] [place] [address] * (ABNORMAL) CBC WITH DIFFERENTIAL (08/06/2015 1:55 PM ALTERNATIVE FINANCING SPECIALIST) WBC 7.4 4.0 - 9.8 K/uL 08/06/2015 2:23 PM [facility] [employer] [facility] - [facility] RBC 5.18(H) 3.90 - 4.90 M/uL 08/06/2015 2:23 PM [facility] [employer] [facility] HEMOGLOBIN 14.9(H) 11.8 - 14.8 g/dL 08/06/2015 2:23 PM [facility] [employer] [facility] HEMATOCRIT 44.7(H) 35.5 - 44.0 % 08/06/2015 2:23 PM [facility] [employer] - [facility] MCV 86.3 82.0 - 99.0 fL 08/06/2015 2:23 PM [facility] [employer] - [facility] MCH 28.8 27.2 - 32.6 pg 08/06/2015 2:23 PM [facility] [employer] - [facility] MCHC 33.3 30.0 - 36.0 g/dL 08/06/2015 2:23 PM [facility] RDW 14.4 11.5 - 14.5 % 08/06/2015 2:23 PM [facility] [employer] [facility] RDW-STDEV 44.4 37.1 - 48.7 fL 08/06/2015 2:23 PM [facility] [employer] [facility] PLATELETS 300 140 - 350 K/uL 08/06/2015 2:23 PM [facility] [employer] [facility] MPV 8.9(L) 9.3 - 12.4 fL 08/06/2015 2:23 PM [facility] [employer] [facility] LABORATORY SERVICES - [facility] NEUTROPHILS 57 45 - 70 % 08/06/2015 2:23 PM ALTERNATIVE FINANCING SPECIALIST [facility] [employer] [facility] LABORATORY SERVICES - [facility] LYMPHOCYTES 35 16 - 45 % 08/06/2015 2:23 PM [facility] [employer] LABORATORY SERVICES - [facility] MONOCYTES 7 3 - 13 % 08/06/2015 2:23 PM [facility] [employer] [facility] LABORATORY SERVICES - [facility] EOSINOPHILS 1 <7 % 08/06/2015 2:23 PM [facility] [employer] [facility] LABORATORY SERVICES - [facility] BASOPHILS 0 <3 % 08/06/2015 2:23 PM [facility] LABORATORY SERVICES - [facility] NEUTROPHIL ABSOLUTE 4.21 1.90 - 7.00 K/uL 08/06/2015 2:23 PM [facility] [employer] [facility] - [facility] LYMPHOCYTE ABSOLUTE 2.55 0.70 - 4.50 K/uL 08/06/2015 2:23 PM [facility] [facility] LABORATORY SERVICES - [facility] MONOCYTE ABSOLUTE 0.48 0.10 - 1.30 K/uL 08/06/2015 2:23 PM [facility] LABORATORY SERVICES - [facility] EOSINOPHIL ABSOLUTE 0.10 <0.70 K/uL 08/06/2015 2:23 PM [employer] [facility] LABORATORY SERVICES - [facility] BASOPHILS ABSOLUTE 0.01 <0.30 K/uL 08/06/2015 2:23 PM [employer]TER[employer]IVE FINANCING SPECIALIST [facility] LABORATORY SERVICES - [facility] Blood Venipuncture - Floor Collect / Unknown 08/06/2015 1:55 PM ALTERNATIVE FINANCING SPECIALIST 08/06/2015 2:15 PM [employer]TER[employer]IVE FINANCING SPECIALIST Gutierrez Walter MD HEMATOLOGY ORDERABLE S [employer] SERVICES - [facility] CLIA# [id number] 5 [facility] [place] [id number] documented in this encounter Visit Diagnoses Diagnosis Positive blood test- Primary Vaginal bleeding before 22 weeks gestation Unspecified hemorrhage in early , unspecified as to episode of care Tobacco use Tobacco use disorder 08/06 L ruptured ectopic s/p dx lap, L fallopian; percocet, ADAT Unspecified ectopic without intrauterine documented in this encounter Administered Medications Inactive Administered Medications - up to 3 most recent administrations Medication Order MAR Action Action Date Dose Rate Site amitriptyline (ELAVIL) tablet 50 mg 50 mg, Oral, DAILY AT BEDTIME, First dose on Sun08/06/15 at 2215, Until Discontinued, Routine Given 08/07/2015 12:36 AM ALTER[employer]IVE FINANCING SPECIALIST 50 mg diphenhydrAMINE (BENADRYL) injection 25 mg 25 mg, IV, ONE TIME ONLY, 1 dose, On Sun08/06/15 at 1730, Routine Given 08/06/2015 5:31 PM ALTERNATIVE FINANCING SPECIALIST 25 mg DIPHENHYDRAMINE 50 MG/ML INJECTION SOLUTION 1 dose, Starting on Sun08/06/15 at 1729, Until Sun08/06/15 at 1731, Danielle OMNICELL: cabinet override docusate sodium (COLACE) capsule 100 mg 100 mg, Oral, TWO TIMES DAILY, First dose on Sun08/06/15 at 2215, Until Discontinued, Routine, Post-op - Floor Given 08/07/2015 10:29 AM ALTERNATIVE FINANCING SPECIALIST 100 mg Given 08/07/2015 12:36 AM ALTERNATIVE FINANCING SPECIALIST 100 mg FENTANYL (PF) 50 MCG/ML INJECTION SOLUTION 1 dose, Starting on Sun08/06/15 at 1452, Until Sun08/06/15 at 1453, Danielle OMNICELL: cabinet override fentaNYL PF (SUBLIMAZE) 50 mcg/mL injection 50 mcg 50 mcg, IV, ONE TIME ONLY, 1 dose, On Sun08/06/15 at 1500, Routine Given 08/06/2015 2:53 PM ALTERNATIVE FINANCING SPECIALIST 50 mcg fentaNYL PF (SUBLIMAZE) 50 mcg/mL injection 50 mcg 50 mcg, IV, ONE TIME ONLY, 1 dose, On Sun08/06/15 at 1645, Routine Given 08/06/2015 4:33 PM ALTERNATIVE FINANCING SPECIALIST 50 mcg heparin injection 5,000 Units 5,000 Units, subCUT, EVERY 8 HOURS, First dose on Sun08/07/15 at 1000, Until Discontinued, Routine, Post-op - Floor Given 08/07/2015 10:29 AM ALTERNATIVE FINANCING SPECIALIST 5,000 Units Abdominal Tissue hydromorPHONE (DILAUDID) 1 mg/mL injection 1 mg 1 mg, IV, ONE TIME ONLY, 1 dose, On Sun08/06/15 at 1700, Routine Given 08/06/2015 4:57 PM ALTERNATIVE FINANCING SPECIALIST 1 mg HYDROMORPHONE 1 MG/ML INJECTION SO 1 dose, Starting on Sun08/06/15 at 1655, Until Sun08/06/15 at 1657, Danielle OMNICELL: cabinet override ketorolac (TORADOL) injection 30 mg 30 mg, IV, EVERY 6 HOURS, 6 doses, First dose on Sun08/07/15 at 0000, Last dose on 08/08/15 at 0600, Routine, Post-op - Floor Given 08/07/2015 12:31 PM ALTERNATIVE FINANCING SPECIALIST 30 mg Given 08/07/2015 6:14 AM ALTERNATIVE FINANCING SPECIALIST 30 mg Given 08/06/2015 11:37 PM ALTERNATIVE FINANCING SPECIALIST 30 mg lactated ringers solution IV, at 125 mL/hr, POST-PROCEDURE CONTINUOUS, Starting on Sun08/06/15 at 2000, Until Sun08/07/15 at 1018, Routine, PACU Bag Switched 08/07/2015 6:14 AM ALTERNATIVE FINANCING SPECIALIST 125 mL/hr New Bag 08/06/2015 11:00 PM ALTERNATIVE FINANCING SPECIALIST 125 mL/hr LORazepam (ATIVAN) 2 mg/mL injection 1 mg 1 mg, IV, ONE TIME ONLY, 1 dose, On Sun08/06/15 at 1745, Routine Given 08/06/2015 5:40 PM ALTERNATIVE FINANCING SPECIALIST 1 mg LORAZEPAM 2 MG/ML INJECTION SOLUTION 1 dose, Starting on Sun08/06/15 at 1737, Until Sun08/06/15 at 1740, Danielle OMNICELL: cabinet override metoclopramide HCl (REGLAN) injection 10 mg 10 mg, IV, EVERY 6 HOURS PRN, Starting on Sun08/06/15 at 2206, Until 08/07/15 at 1552, Nausea/Emesis, Routine, Post-op - Floor Given 08/07/2015 1:03 AM ALTERNATIVE FINANCING SPECIALIST 10 mg morphine 4 mg/mL injection 4 mg 4 mg, IV, EVERY 2 HOURS PRN, Starting on Sun08/06/15 at 2206, Until 08/07/15 at 1552, Pain, Mild, For Pain Scale 1-3, Routine, Post-op - Floor Given 08/07/2015 6:28 AM ALTERNATIVE FINANCING SPECIALIST 4 mg morphine 4 mg/mL injection 4 mg 4 mg, IV, ONE TIME ONLY, 1 dose, On Sun08/06/15 at 1400, Routine Given 08/06/2015 2:06 PM ALTERNATIVE FINANCING SPECIALIST 4 mg morphine 4 mg/mL injection 4 mg 4 mg, IV, ONE TIME ONLY, 1 dose, On Sun08/06/15 at 1430, Routine Given 08/06/2015 2:25 PM ALTERNATIVE FINANCING SPECIALIST 4 mg MORPHINE 4 MG/ML INTRAVENOUS SOLUTION 1 dose, Starting on Sun08/06/15 at 1422, Until Sun08/06/15 at 1425, Danielle OMNICELL: cabinet override ondansetron (ZOFRAN) 4 mg/2 mL injection 4 mg 4 mg, IV, EVERY 6 HOURS PRN, Starting on Sun08/06/15 at 2206, Until 08/07/15 at 1552, Nausea/Emesis, Routine, Post-op - Floor Given 08/06/2015 10:59 PM ALTERNATIVE FINANCING SPECIALIST 4 mg oxyCODONE-acetaminophen (PERCOCET) 10-325 mg per tablet 1 Tablet 1 Tablet, Oral, EVERY 4 HOURS PRN, Starting on Sun08/06/15 at 2206, Until 08/07/15 at 1552, Pain, Severe, For Pain Scale 7-10, Routine, Post-op - Floor Given 08/07/2015 10:29 A M ALTERNATIVE FINANCING SPECIALIST 1 Tablet Given 08/07/2015 12:36 AM ALTERNATIVE FINANCING SPECIALIST 1 Tablet documented in this encounter Active and Recently Administered Medications Times are shown in ALTERNATIVE FINANCING SPECIALIST. Scheduled Medication Order 08/05/2015 08/06/2015 08/07/2015 amitriptyline [...] 1645, Routine 1633 (Given - Provider: Sarah Santos RN) heparin injection 5,000 Units (CANCELED) 5,000 Units, [...] - Floor 2337 (Given - Provider: Lenore Cleveland RN) 0614 (Given - Provider: Lenore Cleveland RN)1231 (Given - Provider: Oralia Castaneda, JACK) LORazepam (ATIVAN) 2 mg/mL injection 1 mg (COMPLETED) 1 mg, IV, ONE TIME ONLY, 1 dose, On Sun08/06/15 at 1745, Routine 1740 (Given - Provider: Sarah Santos RN) morphine 4 mg/mL injection 4 mg (COMPLETED) 4 mg, IV, ONE TIME ONLY, 1 dose, On Sun08/06/15 at 1400, Routine 1406 (Given - Provider: Sarah Santos, JACK) morphine 4 mg/mL injection 4 mg (COMPLETED) 4 mg, IV, ONE TIME ONLY, 1 dose, On Sun08/06/15 at 1430, Routine 1425 (Given - Provider: Sarah Santos RN) Continuous Medication Order 08/05/2015 08/06/2015 08/07/2015 lactated ringers solution (CANCELED) IV, at 125 mL/hr, POST-PROCEDURE CONTINUOUS, Starting on Sun08/06/15 at 2000, Until 08/07/15 at 1018, Routine, PACU 2300 (New Bag - Provider: Lenore Cleveland RN) 0614 (Bag Switched - Provider: Lenore Cleveland RN)1000 (Stopped - Provider: Oralia Castaneda RN) PRN Medication Order 08/05/2015 08/06/2015 08/07/2015 bupivacaine-EPINEPHrine [...] Oral, EVERY 4 HOURS PRN, Starting on 08/06/15 at 2206, Until 08/07/15 at 1552, Pain, Severe, For Pain Scale 7-10, Routine, Post-op - Floor 0036 (Given - Provid er: Lenore Cleveland RN)1029 (Given - Provider: Oralia Castaneda RN) oxyCODONE-acetaminophen (PERCOCET) 5-325 mg per tablet 1 Tablet 1 Tablet, Oral, EVERY 4 HOURS PRN, Starting on 08/06/15 at 2206, Until 08/07/15 at 1552, Pain, Moderate, For Pain Scale 4-6, Routine, Post-op - Floor sodium chloride 0.9 % irrigation irrigation (CANCELED) INTRA-PROCEDURE PRN, Starting on Sun08/06/15 at 2012, Until Sun08/06/15 at 2110, Routine, Intra-op 2009 (Given - Provider: Ayde Alexis MD - Comment: used on the field for trocars)2011 (Given - Provider: Ayde Alexis MD - Comment: used via dav) documented in this encounter Care Teams Electric Relay Tester Relationship Specialty Start Date End Date Hilda Eden FNP [id number] [place] [id number] PCP - General NURSE PRACTITIONER 07/13/13 01/05/18 documented as of this encounter
--- OUTSIDE RECORDS SUMMARY | 2024-08-03 01:42 | XMS_ITS | Encounter Summary ---
Author Organization [employer] Address [address] [place] [address] Care Team Providers Care Engineering Patternmaker Name Role Phone (Excluded Provider) Mellisa Johnson DO Primary Care Provider Unavailable Reason for Visit * Reason Comments Leg Pain pt. present to er d/ t left leg pain, numbness and unable to sleep d/t the pain in her left leg. pt. was just seen here a couple of days ago and was told she is : 2-4 weeks. The pain in her left thigh that shoots down her leg is throbbing. * Auth/Cert - Closed Specialty Diagnoses / Procedures Referred By Reva holbrook Referred To Contact Emergency Medicine [facility] Emergency Dept [address] [place] [address] Referral ID Status Reason Start Date Expiration Date Visits Re quested Visits Authorized [id number] Closed 1 1 Encounter Details Date Type Department Care Team (Late st Contact Info) Description 04/15/2012 6:40 PM CDT - 04/15/2012 10:04 PM CDT Emergency [facility] Emergency Department [address] [place] [address] Josiah Layton MD [address] [facility] [place] [address] Miscarriage; Leg pain Discharge Disposition: Home or Self Care Social [...] Sign Reading Time Taken Comments Blood Pressure 133/69 04/15/2012 8:06 PM CDT Pulse 72 04/15/2012 10:00 PM CDT Temperature 36.7 ??C (98.1 ??F) 04/15/2012 6:37 PM CD T Respiratory Rate 20 04/15/2012 10:00 PM CDT Oxygen Saturation 98% 04/15/2012 8:06 PM CDT Inhaled Oxygen Concentration - - Weight 113.4 kg (250 lb) 04/15/2012 6:37 PM CDT Height 167.6 cm (5' 6 ) 04/15/2012 6:37 PM CDT Body Mass Index 40.35 04/15/2012 6:37 PM CDT documented in this encounter Discharge Instructions * Discharge Instructions* Josiah Layton MD - 04/15/2012 9:49 PM CDT Miscarriage You have had a miscarriage, or spontaneous . This is a common problem since one out of fivepregnancies ends in miscarriage. This usually happens when the is not developing normally. It is very unlikely that you or your partner did anything to cause this, although cigarette smoking and drug abuse can increase the risk. Having a miscarriage does not change your chances of having a normal in the future. A cannot be saved if there is continual, heavy vaginal bleeding or cramping, or if you pass any tissue. Bleeding and cramping will usually continue until all the tissue has been removed from the womb. Often the uterus does not clean itself out completely and a D&C procedure or a medication called misoprostol (Cytotec), is needed to loosen or remove the tissue from the uterus. Rh immune globulin is given if your blood is Rh negative and you have not been previously sensitized. You should rest in bed for the next 2-3 days. Avoid tub baths or putting anything in your vagina, including tampons or douching. Do not have sex until your doctor or outreach assistant approves. Please call your doctor or nurse practitioner, or go to the emergency room at once if you have any of the followingsymptoms: ?? Persistent heavy bleeding or a foul-smelling vaginal discharge. ?? Continued abdominal or pelvic pain. ?? Fever over 100 F (38 C). ?? Severe weakness or fainting, or repeated vomiting. ExitCare?? Patient Information ??2006 [employer] [facility].Lumbar Radiculopathy, Sciatica Sciatica is a weakness and/or changes in sensation (tingling, jolts, hot and cold, numbness) along the path the sciatic nerve travels. Irritation or damage to lumbar nerve roots is often also referred to as lumbar radiculopathy. Lumbar radiculopathy (Sciatica) is the most common form of this problem. Radiculopathy can occur inany of the nerves coming out of the spinal cord. The problems caused depend on which nerves are involved. The sciatic nerve is the large nerve supplying the branches of nerves going from the hip to the toes. It often causes a numbness or weakness in the skin and/or muscles that the sciatic nerve serves. It also may cause symptoms (problems) of pain, burning, tingling, or electric shock-like feelings in the path of this nerve. This usually comes from injury to the fibers that make up the sciaticnerve. Some of these symptoms are low back pain and/or unpleasant feelings in the following areas: l From the mid-buttock down the back of the leg to the back of the knee.. l And/or the outside of the calf and top of the foot.. l And/or behind the inner ankle to the sole of the foot.. CAUSES l Herniated or slipped disc. Discs are the little cushions between the bones in the back. l Pressure by the piriformis muscle in the buttock on the sciatic nerve (Piriformis Syndrome). l Misalignment of the bones in the lower back and buttocks (Sacroiliac Joint Derangement). l Narrowing of the spinal canal that puts pressure on or pinches the fibers that make up the sciatic nerve. l A slipped vertebra that is out of line with those above or beneath it (spondylolisthesis). l Abnormality of the nervous system itself so that nerve fibers don't transmit signals properly, especially to feet and calves (neuropathy). l Tumor (this is rare). Your caregiver can usually determine the cause of your sciatica and begin the treatment most likelyto help you. TREATMENT Taking [id number] painkillers, physical therapy, rest, exercise, spinal manipulation, and injections of anesthetics, steroids and/or Botulinum toxins may be used. Surgery, acupuncture, and Yogacan also be effective. Mind over matter techniques, mental imagery, and changing factors such as your bed, chair, desk height, posture, and activities are other treatments that may be helpful. You and your caregiver can help determine what is best for you. With proper diagnosis (learning what is wrong), the cause of most sciatica can be identified and removed. Communication and cooperation between your caregiver and you is essential. If you are not successful immediately, do not be discouraged.With time, a proper treatment can be found that will make you comfortable. HOME CARE INSTRUCTIONS l If the pain is coming from a problem in the back, applying ice to that area for 15 to 20 minutes,four times per day while awake, may be helpful. Put the ice in a plastic bag. Place a towel betweenthe bag of ice and your skin. l You may also apply heat to your lower back to help relieve pain. You may use a warm heating pad for 15 to 20 minutes, four times per day while awake, for 2 days or as needed. Do not sleep with a heating pad. This could cause cancino. l For ice and heat treatments, use whatever seems to help the most. You can also try switching between them. l Discontinue either the cold or heat treatments, or both, if they seem to make you worse or do nothelp your discomfort. l You may exercise or perform your usual activities if these do not aggravate your pain, or as suggested by your caregiver. l Take medications as directed by your caregiver. You may use acetaminophen Tylenol or ibuprofen (Advil or Motrin) as needed for pain, unless your caregiver directs otherwise. SEE YOUR CAREGIVER IMMEDIATELY IF: l You experience loss of control of bowel or bladder. l You have increasing weakness in the trunk, buttocks, or legs. l There is numbness in any areas from the hip down to the toes. l You have any of the above, with fever or forceful vomiting. ExitCare?? Patient Information ??2006 [employer]. documented in this encounter Medications at Time of Discharge Medication Sig Dispensed Refills Start Date End Date oxyCODONE-acetaminophen (PERCOCET) 5-325 mg Oral tablet Take 1-2 Tabs by mouth every 6 hours as needed for Pain, Moderate. 20 Tab None 04/15/2012 08/07/2015 diazepam (VALIUM) 5 mg Oral tablet Take 1 Tab by mouth every 8 hours as needed for Anxiety. 15 Tab 0 04/15/2012 06/02/2016 methylPREDNISolone (MEDROL, FRANK,) 4 mg Oral DsPk As per package insert 1 Package None 04/15/2012 08/07/2015 HYDROcodone-acetaminoph en (LORTAB) 5-500 mg Oral tablet Take 1 Tab by mouth every 4 hours as needed for Pain. 20 Tab None 04/12/2012 08/07/2015 ibuprofen (MOTRIN) 600 mg Oral tablet Take 1 Tab by mouth every 6 hours as needed for Pain. 60 Tab 1 11/24/2010 06/02/2016 HYDROcodone-acetaminoph en (NORCO) 5-325 mg Oral tablet Take 1 Tab by mouth every 4 hours as needed. 50 Tab 0 11/24/2010 08/07/2015 vit-iron fumarate-FA ( VITAMIN) 27-0.8 mg Oral Tab Take 1 Tab by mouth daily. 02/03/2017 documented as of this encounter ED Notes * Erwin Powers RN - 04/15/2012 10:02 PM CDT Pt d/c with written inst and pt verblizes understanding of inst and pt left ambulatory , vitals stabel * Cathryn Mora RN - 04/15/2012 9:45 PM CDT notified of pt request. md at bedside. * Cathryn Mora RN - 04/15/2012 9:44 PM CDT Family requesting updated. Will inform md * Cathryn Mora RN - 04/15/2012 9:09 PM CDT Pt resting in bed at this time. Voices no wants complaints or needs. Nad. Will continue to monitor.Family at bedside. * Cathryn Mora RN - 04/15/2012 8:06 PM CDT Pt states pain is more dull but i can still feel it . Vss. Family at bedside. Water provided for pt. Call light within reach. Will continue to Monitor. * Josiah Layton MD - 04/15/2012 7:49 PM CDT Images from the original note were not included. HISTORY OF PRESENT ILLNESS Vera Purdy, a 26 y.o. female presents to the ED with a Chief Complaint of Leg Pain HPI Comments: 26-year-old gravid female roughly one month along. Patient was seen about 3 days ago for hip pain and vaginal bleeding. She had an evaluation and a Quant which was 560. She had a pelvicexam which was unremarkable at that time. Patient was discharged home. She continues to have left leg pain in the L2-3 distribution as well as focal pain in her posterior buttock along the hamstring and medial aspect of the thigh worse with abduction of her hip. There is no pain along the deep vascular system distribution there is no swelling or warmth or redness. No masses or cellulitis or skin changes. She denies any shortness of breath or chest pain. She states she has had a history of sciatica on the right leg in the same distribution but not as severe. She says she has a long history of chronic back pain. Patient is a 26 y.o. female presenting with leg pain. The history is provided by the patient. Leg Pain This is a recurrent problem. The current episode started more than 2 days ago. The problem occurs constantly. REVIEW OF SYSTEMS Review of Systems Unable to perform ROS Genitourinary: Positive for vaginal bleeding. Musculoskeletal: Positive for myalgias and back pain. PAST MEDICAL HISTORY REVIEWED Past Medical History Diagnosis Date ??? Patient denies relevant medical history ??? MRSA (methicillin resistant Staphylococcus aureus) 08/2009 cysts on leg, never cultured-told it was staph and was given medication ??? High cholesterol Past Surgical History Procedure Date ??? Hx ear surgery ??? Hx cholecystectomy 02/2010 ??? Pr delivery only 11/21/2010 SECTION performed by JERICA JULIEN at [facility] L&D Family History Problem Relation Age of Onset ??? Diabetes Father ??? Thyroid Disease Father ??? Hypertension Mother ??? Diabetes Brother Social History Other Topics Concern ??? Not on file History Social History Main Topics ??? Smoking status: Current Everyday Smoker -- 0.5 packs/day for 10 years Types: Cigarettes ??? Smokeless tobacco: Never Used ??? Alcohol Use: No ??? Drug Use: No ??? Sexually Active: Yes -- Male partner(s) Patient Active Problem List Diagnoses Date Noted ??? Normal (single liveborn) 11/23/2010 ??? C section 11/2111/21/2010 ALLERGIES Adhesive and Latex HOME MEDICATIONS Patient's Home Medications Current Home Medications HYDROCODONE-ACETAMINOPHEN (LORTAB) 5-500 MG ORAL TABLET Take 1 Tab by mouth every 4 hours as neededfor Pain. HYDROCODONE-ACETAMINOPHEN (NORCO) 5-325 MG ORAL TABLET Take 1 Tab by mouth every 4 hours as needed. IBUPROFEN (MOTRIN) 600 MG ORAL TABLET Take 1 Tab by mouth every 6 hours as needed for Pain. VIT-IRON FUMARATE-FA ( VITAMIN) 27-0.8 MG ORAL TAB Take 1 Tab by mouth daily. Medications Modified during this Encounter Medications Discontinued during this Encounter PHYSICAL EXAM Initial Vitals BP 04/15/12 1837 148/97 mmHg Pulse 04/15/12 1837 91 Resp 04/15/12 1837 18 Temp 04/15/12 1837 98.1 ??F (36.7 ??C) Temp src 04/15/12 1837 Oral SpO2 04/15/12 1837 98 % Physical Exam [vitalsreviewed. Constitutional: She is oriented to person, place, and time. She appears well- developed and well-nourished. HENT: Head: Normocephalic. Mouth/Throat: Oropharynx is clear and moist. Eyes: Conjunctivae and EOM are normal. Pupils are equal, round, and reactive to light. Neck: Neck supple. No thyromegaly present. Cardiovascular: Normal rate, normal heart sounds and intact distal pulses. No murmur heard. Pulmonary/Chest: Effort normal and breath sounds normal. No stridor. No respiratory distress. She has no wheezes. She exhibits no tenderness. Abdominal: Soft. Bowel sounds are normal. She exhibits no distension. There is no tenderness. Thereis no guarding. Musculoskeletal: Normal range of motion. She exhibits no edema. Legs: Other with straight leg raise at 40??. Bilaterally Focal pain along the posterior aspect of medial hamstring worse with movement of leg. No swelling calf tenderness or discoloration the rash to suggest zoster Lymphadenopathy: She has no cervical adenopathy. Neurological: She is alert and oriented to person, place, and time. She has normal reflexes. No cranial nerve deficit. Skin: Skin is warm and dry. No rash noted. Psychiatric: She has a normal mood and affect. Her behavior is normal. Judgment and thought contentnormal. DIAGNOSTICS LAB: Results for orders placed during the hospital encounter of 04/15/12 (from the past 24 hour(s)) HCG QUANTITATIVE, BLOOD Component Value Range HCG QUANT, BLOOD 68 (*) 0 - 5 (mIU/mL) URINALYSIS WITH REFLEX CULTURE Component Value Range URINE CULTURE ORDER Culture ordered URINALYSIS Component Value Range COLOR UA Pale Yellow CLARITY UA Slt. Cloudy (*) Clear SPECIFIC GRAVITY UA 1.006 1.001 - 1.035 PH UA 6.5 5.0 - 8.0 LEUKOCYTE ESTERASE UA 1+ (*) Negative NITRITE UA Negative Negative PROTEIN UA Negative Negative GLUCOSE UA Negative Negative KETONES UA Negative Negative UROBILINOGEN UA <1 <=1 (mg/dL) BILIRUBIN UA Negative Negative BLOOD UA 2+ (*) Negative WBC UA 3 0 - 5 (/HPF) RBC UA 2 0 - 4 (/HPF) BACTERIA UA 1+ (*) None Seen (/HPF) EPITHELIAL CELLS, URINE Many RADIOLOGY: EKG: PROCEDURES Procedures REEVALUATION MEDICAL DECISION MAKING AND PLAN OF CARE Patient with focal reproducible movement related muscle pain. It does appear to be any swelling. Differential diagnosis includes sciatica, meralgia paresthetica, pulled groin muscle. Less likely would be a DVT given the location and quality of the pain. We'll check a quantitative and compared to the level from 2-3 days ago. Control for pain and reevaluate . New Prescriptions for this Encounter DIAZEPAM (VALIUM) 5 MG ORAL TABLET Take 1 Tab by mouth every 8 hours as needed for Anxiety. METHYLPREDNISOLONE (MEDROL, FRANK,) 4 MG ORAL DSPK As per package insert OXYCODONE-ACETAMINOPHEN (PERCOCET) 5-325 MG ORAL TABLET Take 1-2 Tabs by mouth every 6 hours as needed for Pain, Moderate. Last vitals BP 133/69 Pulse 78 Temp(Src) 98.1 ??F (36.7 ??C) (Oral) Resp 17 Ht 5' 6 (1.676m) Wt 113.399 kg BMI 40.35 kg/m2 SpO2 98% LMP 03/27/2012 Coding Medications Administered During the ED Stay from 04/15/2012 1833 to 04/15/2012 2152 Date/Time Order Dose Route Action 04/15/2012 1922 hydromorPHONE (PF) (DILAUDID) 2 mg/mL injection 1 mg 1 mg IM Given 04/15/2012 192 ketorolac (TORADOL) injection 60 mg 60 mg IM Given CLINICAL IMPRESSION Encounter Diagnoses Code Name Primary? 634.90 Miscarriage ??? 729.5 Leg pain CASE DISCUSSED Patient updated on her status. It appears that the patient presented 2 days ago she was having a miscarriage as her Quant went from 560 to 60.her pain in the leg is better and she is able to sit crosslegged without distress. Whenever that she cannot take because it pains as this appears to be a miscarriage. Patient states she's supple with that and has minimal if any bleeding she is to followup with her OB within the next couple days to make sure that she has a retained products of conception. PATIENT COUNSELING Diagnostics reviewed and questions answered. Diagnosis, treatment options and plan of care discussed with understanding verbalized. DISPOSITION, EDUCATION AND MEDICATION RECONCILIATION Medications reconciled. See after visit summary for patient education on discharged patients. * Cathryn Mora RN - 04/15/2012 7:35 PM CDT Pt back resting in bed. Urine sent to lab. * Cathryn Mora RN - 04/15/2012 7:28 PM CDT Pt using restroom with assistance of spouse. Aware of emergency light. ua supplies in hand. * Cathryn Mora RN - 04/15/2012 7:25 PM CDT Patient/family has been informed about benefits and any potential clinically significant side effects or other concerns regarding the administration of the drug they have just been given. Blood drawnand sent to lab. fmaily at bedside. Call light within reach. Education given. Told to call for any wants or needs.will continue to monitor and reassess pain. * Cathryn Mora RN - 04/15/2012 7:14 PM CDT Report received from yolanda malone * Ana Landeros RN - 04/15/2012 6:56 PM CDT Pt to ED 25 c/o left leg pain. Pt reports sharp, pulsating pain from left thigh down to left foot. Pt reports being seen in ER last week for hip pain, pt was told she was , pt denies hip painat this time, reports having slight amount of vaginal bleeding. Pt reports she is unable to get comfortable, reports pain with ambulation. Pt tearful, A&O x4, respirations even and unlabored, skin PWD. documented in this encounter Miscellaneous Notes * Patient Instructions - Stl Scanning, Him - 04/16/2012 10:55 AM CDT documented in this encounter Plan of Treatment Upcoming Encounters Date Type Department Care Team (Late st Contact Info) Description 10/14/2024 11:00 AM PAID SEARCH ANALYST Office Visit [facility] Oncology and Hematology - [place] [facility] [address] [place] [address] Ubaldo Cardenas MD [address] [facility] [address] [place] [address] documented as of this encounter Procedures Procedure Name Priority Date/Time Associated Diagnosis Comments URINALYSIS WITH REFLEX CULTURE Stat 04/15/2012 7:29 PM CDT URINALYSIS W/REFLEX MICROSCOPIC Stat 04/15/2012 7:29 PM CDT URINE CULTURE Stat 04/15/2012 7:29 PM CDT HCG QUANTITATIVE, BLOOD Stat 04/15/2012 7:20 PM CDT documented in this encounter Results * URINE CULTURE (04/15/2012 7:29 PM CDT) FINAL MICRO REPORT Polymicrobial growth present consistent with urethral stephanie and/or colonizing bacteria. [facility] 04/15/2012 7:29 PM CDT 04/15/2012 8:10 PM CDT Comment:URINE VOIDED Josiah Layton MD MICROBIOLOGY - GENER AL ORDERABLES [facility] CLIA# [id number] [address] [place] [address] * (ABNORMAL) URINALYSIS (04/15/2012 7:29 PM CDT) COLOR UA Pale Yellow [facility] CLARITY UA Slt. Cloudy(A) Clear [facility] LABORATORY SERVICES - [facility] SPECIFIC GRAVITY UA 1.006 1.001 - 1.035 [facility] LABORATORY SERVICES - . [facility] PH UA 6.5 5.0 - 8.0 [facility] LABORATORY SERVICES - . [facility] LEUKOCYTE ESTERASE UA 1+(A) Negative [facility] LABORATORY SERVICES - [facility] NITRITE UA Negative Negative [facility] LABORATORY SERVICES - [facility] PROTEIN UA Negative Negative [facility] LABORATORY SERVICES - [facility] GLUCOSE UA Negative Negative [facility] LABORATORY SERVICES - . [facility] KETONES UA Negative Negative [facility] LABORATORY SERVICES - [facility] UROBILINOGEN UA <1 <=1 mg/dL [facility] Y LABORATORY SERVICES - . [facility] BILIRUBIN UA Negative Negative [facility] LABORATORY SERVICES - . [facility] BLOOD UA 2+(A) Negative [facility] LABORATORY SERVICES - . [facility] WBC UA 3 0 - 5 /HPF [facility] LABORATORY SERVICES - . [facility] RBC UA 2 0 - 4 /HPF [facility] LABORATORY SERVICES - . [facility] BACTERIA UA 1+(A) None Seen /HPF [facility] LABORATORY SERVICES - . [facility] EPITHELIAL CELLS, URINE Many /HPF [facility] LABORATORY SERVICES - . [facility] 04/15/2012 7:29 PM CDT 04/15/2012 7:38 PM CDT Comment:URINE VOIDED Josiah Layton MD URINE ORDERABLES [facility] LABORATORY [facility]# [id number] [address] [facility] [place] [address] * URINALYSIS WITH REFLEX CULTURE (04/15/2012 7:29 PM CDT) URINE CULTURE ORDER Culture ordered [facility] LABORATORY SERVICES [facility] Comment: Criteria for a reflex culture include one or more of the following: ??Abnormal nitrite, leukocyte esterase, WBCs or RBCs. ??Lack of qualifying criteria does not exclude the possiblity of a urinary tract infection. ??Dilute urine, drug interference, etc. may decrease the sensitivity of the criteria analytes. Urine, clean catch 04/15/2012 7:29 PM CDT 04/15/2012 7:38 PM CDT Comment:URINE VOIDED Josiah Layton MD URINE ORDERABLES Performing Organization Address [facility]/State/ZIP Co de Phone Number [facility] CLBRAN# [id number] [address] [address] * (ABNORMAL) HCG QUANTITATIVE, BLOOD (04/15/2012 7:20 PM CDT) HCG QUANT, BLOOD 68(H) 0 - 5 mIU/mL [facility] Comment: Result of 5 - 25 mIU/mL is indeterminant for , repeat of test recommemded in 48 hours. Reference Range: Gestational Age: 3 ??Weeks ?5.8 - 71.2 ?mIU/mL 4 ??Weeks ?9.5 - 750 ? mIU/mL 5 ??Weeks ?798 - 1050 ?mIU/mL 6 ??Weeks ?158 - 31,795 ?mIU/mL 7 ??Weeks ? 3697 - 163,563 ?? mIU/mL 8 ??Weeks ? 32,065 - 149,571 ?? mIU/mL 9 ??Weeks ? 63,803 - 151,410 ?? mIU/mL 10 Weeks ? 46,509 - 186,977 ?? mIU/mL 12 Weeks ? 27,832 - 210,612 ?? mIU/mL 14 Weeks ? 13,950 - 62,530 ?mIU/mL 15 Weeks ? 12,039 - 70,971 ?mIU/mL 16 Weeks ? 9040 - 56,451 ?mIU/mL 17 Weeks ? 1188 - 33,868 ?mIU/mL 18 Weeks ? 8099 - 58,176 ?mIU/mL Heterophile antibodies and other interfering substances in the serum of some patients may cause a false-positive result in this assay. ??Before making a diagnosis of malignancy or ectopic ,the result of this test should be confirmed with a urine HCG test and correlated with other clinical evidence. Blood specimen (specimen) 04/15/2012 7:20 PM CDT 04/15/2012 7:28 PM CDT Josiah Layton MD CHEMISTRY ORDERABLES [facility] LABORATORY [facility]# [id number] [address] [place] [address] documented in this encounter Visit Diagnoses Diagnosis Miscarriage Unspecified spontaneous without mention of complication Leg pain Pain in limb documented in this encounter Administered Medications Inactive Administered Medications - up to 3 most recent administrations Medication Order MAR Action Action Date Dose Rate Site hydromorPHONE (PF) (DILAUDID) 2 mg/mL injection 1 mg 1 mg, IM, DAILY, First dose on Sun04/15/12 at 1915, Until Discontinued, Routine Given 04/15/2012 7:22 PM CDT 1 mg Arm, Left Upper ketorolac (TORADOL) injection 60 mg 60 mg, IM, ONE TIME ONLY, 1 dose, On Sun04/15/12 at 1915, Routine Given 04/15/2012 7:21 PM CDT 60 mg Arm, Right Upper documented in this encounter Active and Recently Administered Medications Times are shown in CDT. Scheduled Medication Order 04/13/2012 04/14/2012 04/15/2012 hydromorPHONE (PF) (DILAUDID) 2 mg/mL injection 1 mg (CANCELED) 1 mg, IM, DAILY, First dose on Sun04/15/12 at 1915, Until Discontinued, Routine 1921 (Given - Provid er: Cathryn Mora RN) ketorolac (TORADOL) injection 60 mg (COMPLETED) 60 mg, IM, ONE TIME ONLY, 1 dose, On Sun04/15/12 at 1915, Routine 1920 (Given - Provid er: Cathryn Mora RN) documented in this encounter Care Teams Engineering Patternmaker Relationship Specialty Start Date End Date (Excluded Provider) Mellisa Johnson DO PCP - General Family Practice 12/11/10 07/12/13 documented as of this encounter
--- OUTSIDE RECORDS SUMMARY | 2024-08-03 01:42 | XMS_ITS | Encounter Summary ---
Author Organization [facility] Address [address] [place] [address] Care Team Providers Care Co Pilot Name Role Phone (Excluded Provider) Mellisa Johnson DO Primary Care Provider Unavailable Reason for Visit * Reason Comments Vaginal Bleeding pt here with c/o jen den onset of lower abd pain described as pressure with vaginal bleeding since this am, pt c/o feeling dizzy, pt states has used 1 sanitary napkin today, pt states lmp of 1 1/2 weeks ago. * Auth/Cert - Closed Specialty Diagnoses / Procedures Referred By Reva holbrook Referred To Contact Emergency Medicine [facility] Emergency Dept [address] [place] [address] Referral ID Status Reason Start Date Expiration Date Visits Re quested Visits Authorized [id number] Closed 1 1 Encounter Details Date Type Department Care Team (Late st Contact Info) Description 04/12/2012 12:20 PM CDT - 04/12/2012 2:59 PM CDT Emergency [facility] Emergency Department [address] [place] [address] Gabby Finney MD NO ADDRESS ON FILE Threatened miscarriage Discharge Disposition: Home or Self Care Social [...] Sign Reading Time Taken Comments Blood Pressure 116/58 04/12/2012 2:58 PM CDT Pulse 72 04/12/2012 2:58 PM CDT Temperature 36.9 ??C (98.5 ??F) 04/12/2012 12:04 PM C DT Respiratory Rate 16 04/12/2012 2:58 PM CDT Oxygen Saturation 97% 04/12/2012 2:58 PM CDT Inhaled Oxygen Concentration - - Weight 113.4 kg (250 lb) 04/12/2012 12:04 PM CDT Height 167.6 cm (5' 6 ) 04/12/2012 12:04 PM CDT Body Mass Index 40.35 04/12/2012 12:04 PM CDT documented in this encounter Discharge Instructions * Discharge Instructions* Gabby Finney MD - 04/12/2012 2:44 PM CDT Drink plenty of fluids and take Tylenol as needed.bedrest * Attachments The following attachments cannot be sent through Care Everywhere. * THREATENED MISCARRIAGE: AFTER YOUR VISIT (SYRIAC) documented in this encounter Medications at Time of Discharge Medication Sig Dispensed Refills Start Date End Date HYDROcodone-acetaminophen (LORTAB) 5-500 mg Oral tablet Take 1 Tab by mouth every 4 hours as needed for Pain. 20 Tab None 04/12/2012 08/07/2015 ibuprofen (MOTRIN) 600 mg Oral tablet Take 1 Tab by mouth every 6 hours as needed for Pain. 60 Tab 1 11/24/2010 06/02/2016 HYDROcodone-acetaminophen (NORCO) 5-325 mg Oral tablet Take 1 Tab by mouth every 4 hours as needed. 50 Tab 0 11/24/2010 08/07/2015 vit-iron fumarate-FA ( VITAMIN) 27-0.8 mg Oral Tab Take 1 Tab by mouth daily. 02/03/2017 documented as of this encounter ED Notes * Suly Chopra RN - 04/12/2012 2:59 PM CDT Patient discharged to home via wheelchair with spouse. Patient states feeling better. Discharge information and education provided to patient. Questions answered, understanding of discharge instruction verbalized. Printed copy given. * Suly Chopra RN - 04/12/2012 2:25 PM CDT Pt continues to rest in bed at this time. Pt updated on plan of care. No needs at this time per pt. remains at bedside at this time. * Gabby Finney MD - 04/12/2012 1:10 PM CDT HISTORY OF PRESENT ILLNESS Vera Purdy, a 26 y.o. female presents to the ED with a Chief Complaint of Vaginal Bleeding. Ptc/o vaginal bleeding with bright red blood and c/o nausea. Pt also c/o bilateral lower abdominal pain. Pt's LMP was 1.5 weeks ago and is unsure if she may be . Not taking hormones. No fever, dysuria, no other c/o or modifying factors. Dr. Julien, BLOCK PLACER The history is provided by the patient. REVIEW OF SYSTEMS Review of Systems Constitutional: Negative for fever, diaphoresis and fatigue. Respiratory: Negative for shortness of breath. Cardiovascular: Negative for chest pain, palpitations and leg swelling. Gastrointestinal: Positive for nausea and abdominal pain. Negative for vomiting. Genitourinary: Positive for vaginal bleeding. Negative for dysuria. Skin: Negative for pallor and rash. Neurological: Negative for dizziness, light-headedness and headaches. Psychiatric/Behavioral: The patient is not nervous/anxious. All other systems reviewed and are negative. PAST MEDICAL HISTORY REVIEWED Past Medical History Diagnosis Date ??? Patient denies relevant medical history ??? MRSA (methicillin resistant Staphylococcus aureus) 08/2009 cysts on leg, never cultured-told it was staph and was given medication ??? High cholesterol Past Surgical History Procedure Date ??? Hx ear surgery ??? Hx cholecystectomy 02/2010 ??? Pr delivery only 11/21/2010 SECTION performed by JERICA JULIEN at [facility] L&D Family History Problem Relation Age [...] and Latex HOME MEDICATIONS Patient's Home Medications New Prescriptions for this Encounter HYDROCODONE-ACETAMINOPHEN (LORTAB) 5-500 MG ORAL TABLET Take 1 Tab by mouth every 4 hours as neededfor Pain. Current Home Medications HYDROCODONE-ACETAMINOPHEN (NORCO) 5-325 MG ORAL TABLET Take 1 Tab by mouth every 4 hours as needed. IBUPROFEN (MOTRIN) 600 MG ORAL TABLET Take 1 Tab by mouth every 6 hours as needed for Pain. VIT-IRON FUMARATE-FA ( VITAMIN) 27-0.8 MG ORAL TAB Take 1 Tab by mouth daily. Medications Modified during this Encounter Medications Discontinued during this Encounter PHYSICAL EXAM Initial Vitals BP 04/12/12 1204 148/96 mmHg Pulse 04/12/12 1204 81 Resp 04/12/12 1204 20 Temp 04/12/12 1204 98.5 ??F (36.9 ??C) Temp src -- SpO2 04/12/12 1204 95 % Physical Exam Nursing note and vitals reviewed. Constitutional: She is oriented to person, place, and time. She appears well- developed and well-nourished. HENT: Head: Normocephalic and atraumatic. Eyes: EOM are normal. Pupils are equal, round, and reactive to light. Neck: No JVD present. No spinous process tenderness present. No tracheal deviation present. Cardiovascular: Normal rate and normal heart sounds. No murmur heard. Pulmonary/Chest: Breath sounds normal. No respiratory distress. She has no wheezes. She has no rales. She exhibits no tenderness. Abdominal: Soft. She exhibits no mass. There is tenderness (mild suprapubic tenderness). Genitourinary: minimal amount of blood in the vault cervical os closed no adnexal mass or tenderness uterus 6 wks size Musculoskeletal: Normal range of motion. She exhibits no edema and no tenderness. Neurological: She is alert and oriented to person, place, and time. No cranial nerve deficit. Skin: Skin is warm and dry. No rash noted. Psychiatric: Her behavior is normal. DIAGNOSTICS LAB: Results for orders placed during the hospital encounter of 04/12/12 (from the past 24 hour(s)) CBC WITH DIFFERENTIAL Component Value Range WBC 8.4 4.0 - 9.8 (K/uL) RBC 5.26 (*) 3.90 - 4.90 (M/uL) HEMOGLOBIN 14.7 11.8 - 14.8 (g/dL) HEMATOCRIT 43.6 35.5 - 44.0 (%) MCV 82.9 82.0 - 99.0 (fL) MCH 27.9 27.2 - 32.6 (pg) MCHC 33.7 31.5 - 35.5 (%) PLATELETS 247 140 - 350 (K/uL) MPV 9.4 9.3 - 12.4 (fL) RDW 14.2 11.5 - 14.5 (%) RDW-STDEV 42.7 37.1 - 48.7 (fL) NEUTROPHILS 56 45 - 70 (%) LYMPHOCYTES 36 16 - 45 (%) MONOCYTES 6 3 - 13 (%) EOSINOPHILS 1 0 - 7 (%) BASOPHILS 0 0 - 2 (%) NEUTROPHIL ABSOLUTE 4.72 1.90 - 7.00 (K/uL) LYMPHOCYTE ABSOLUTE 3.06 0.70 - 4.50 (K/uL) MONOCYTE ABSOLUTE 0.50 0.10 - 1.30 (K/uL) EOSINOPHIL ABSOLUTE 0.12 0.00 - 0.70 (K/uL) BASOPHILS ABSOLUTE 0.02 0.00 - 0.20 (K/uL) COMPREHENSIVE METABOLIC PANEL Component Value Range SODIUM 140 135 - 145 (mmol/L) POTASSIUM 3.6 3.5 - 4.9 (mmol/L) CHLORIDE 105 96 - 108 (mmol/L) CO2 23 22 - 30 (mmol/L) CALCIUM 9.8 8.6 - 10.2 (mg/dL) BUN 5 (*) 6 - 20 (mg/dL) CREATININE 0.65 0.51 - 0.95 (mg/dL) GLUCOSE 87 65 - 99 (mg/dL) TOTAL PROTEIN 6.9 6.3 - 8.6 (g/dL) ALBUMIN 4.4 3.4 - 4.8 (g/dL) BILIRUBIN TOTAL 0.2 0.2 - 1.0 (mg/dL) ALKALINE PHOSPHATASE 108 (*) 35 - 104 (U/L) AST 17 12 - 32 (U/L) ALT 18 0 - 31 (U/L) GFR, >60 >=60 (mL/min/1.7 sq meter) GFR >60 >=60 (mL/min/1.7 sq meter) HCG QUANTITATIVE, BLOOD Component Value Range HCG QUANT, BLOOD 580 (*) 0 - 5 (mIU/mL) URINALYSIS Component Value Range COLOR UA Colorless CLARITY UA Clear Clear SPECIFIC GRAVITY UA 1.001 1.001 - 1.035 PH UA 5.5 5.0 - 8.0 LEUKOCYTE ESTERASE UA Negative Negative NITRITE UA Negative Negative PROTEIN UA Negative Negative GLUCOSE UA Negative Negative KETONES UA Negative Negative UROBILINOGEN UA <1 <=1 (mg/dL) BILIRUBIN UA Negative Negative BLOOD UA 2+ (*) Negative WBC UA <1 0 - 5 (/HPF) RBC UA <1 0 - 4 (/HPF) EPITHELIAL CELLS, URINE 0-2 ABORH TYPING Component Value Range HISTORY CHECK History Checked ABO/RH TYPE B Positive SPECIMEN LIFE 3 days from drawdate RADIOLOGY: EKG: PROCEDURES Procedures REEVALUATION MEDICAL DECISION MAKING AND PLAN OF CARE . New Prescriptions for this Encounter HYDROCODONE-ACETAMINOPHEN (LORTAB) 5-500 MG ORAL TABLET Take 1 Tab by mouth every 4 hours as neededfor Pain. Last vitals BP 116/58 Pulse 72 Temp 98.5 ??F (36.9 ??C) Resp 16 Ht 5' 6 (1.676 m) Wt 113.399 kg BMI 40.35 kg/m2 SpO2 97% LMP 03/27/2012 MDM Coding Reviewed: previous chart, nursing note and vitals Interpretation: labs and SP02 Consults: BLOCK PLACER CLINICAL IMPRESSION Encounter Diagnoses Code Name Primary? 640.00 Threatened miscarriage CASE DISCUSSED 2:[address] Julien, BLOCK PLACER, regarding pt's condition today. PATIENT COUNSELING D/w pt test results, dx, tx plan, and need for f/u with Dr. Julien. RTER warnings given. All questions and concerns addressed. The pt agrees with the plan. Diagnostics reviewed and questions answered. Diagnosis, treatment options and plan of care discussed with understanding verbalized. DISPOSITION, EDUCATION AND MEDICATION RECONCILIATION Medications reconciled. See after visit summary for patient education on discharged patients. This note has been prepared by Ciro Tierney acting as a scribe for Dr. Finney. The scribe's documentation has been prepared under my direction and personally reviewed by me in its entirety. I confirm that the note above accurately reflects all work, treatment, procedures, and medical decision making performed by me. * Suly Chopra RN - 04/12/2012 1:08 PM CDT MD to bedside at this time. * Suly Chopra RN - 04/12/2012 12:46 PM CDT Pt presents to ED with complaints of vaginal bleeding. Pt states this am she woke up with a lot of pressure in her lower abd. Pt states pain increased with walking. Pt states she took an Ibuprofen with no relief. Pt complains of pain and cramping worsening. Pt states pain is radiating from the lower abd to the mid abd. Pt states when she went to the restroom this am she had bright red blood from her vagina. Pt complains of dizziness. Pt states LMP was March 27 and the last day of it was 6 days ago. Pt complains of feeling off balance and states everything is fuzzy. Pt complains of umbilicus pain and RLQ and LLQ pain. Pt complains of pain on palpation. Pt states last bowel movement was today and normal for her. Pt rates pain at a 7 on 0-10 scale. Pt describes the pain as a tightness andpressure. Pt is AOx4. documented in this encounter Miscellaneous Notes * Patient Instructions - Stl Scanning, Him - 04/13/2012 6:05 AM CDT documented in this encounter Plan of Treatment Upcoming Encounters Date Type Department Care Team (Late st Contact Info) Description 10/14/2024 11:00 AM PRICE ANALYST Office Visit [facility] Oncology and Hematology - [place] [address] [place] [address] Ubaldo Cardenas MD [address] [facility] [address] [place] [address] documented as of this encounter Procedures Procedure Name Priority Date/Time Associated Diagnosis Comments ABORH TYPING Stat 04/12/2012 2:40 PM CDT URINALYSIS W/REFLEX MICROSCOPIC Stat 04/12/2012 1:16 PM CDT CBC WITH DIFFERENTIAL Stat 04/12/2012 1:15 PM CDT HCG QUANTITATIVE, BLOOD Stat 04/12/2012 1:15 PM CDT COMPREHENSIVE METABOLIC PANEL Stat 04/12/2012 1:15 PM CDT documented in this encounter Results * ABORH TYPING (04/12/2012 2:40 PM CDT) HISTORY CHECK History Checked [facility] ABO/RH TYPE B Positive [facility] SPECIMEN LIFE 3 days from drawdate [facility] Blood specimen (specimen) 04/12/2012 2:40 PM CDT 04/12/2012 2:48 PM CDT Gabby Finney MD BLOOD BANK ORDERABLE S INTERFACE SYSTEM Refer to clinic/hospital department [facility] CLIA# [id number] [address] [place], [place] [address] * (ABNORMAL) URINALYSIS (04/12/2012 1:16 PM CDT) COLOR UA Colorless [facility] CLARITY UA Clear Clear [facility] SPECIFIC GRAVITY UA 1.001 1.001 - 1.035 [facility] PH UA 5.5 5.0 - 8.0 [facility] LEUKOCYTE ESTERASE UA Negative Negative [facility] NITRITE UA Negative Negative [facility] PROTEIN UA Negative Negative [facility] GLUCOSE UA Negative Negative [facility] KETONES UA Negative Negative [facility] UROBILINOGEN UA <1 <=1 mg/dL [facility] BILIRUBIN UA Negative Negative [facility] BLOOD UA 2+(A) Negative [facility] Comment:Verified by repeat a nalysis. WBC UA <1 0 - 5 /HPF [facility] Comment: Microscopic verified by repeat analysis. ??Suggest red cell hemolysis or interfering substance. RBC UA <1 0 - 4 /HPF [facility] EPITHELIAL CELLS, URINE 0-2 /HPF [facility] Urine, clean catch URINE SPECIMEN OBTAINED BY CLEAN CATCH PROCEDURE / Unknown 04/12/2012 1:16 PM CDT 04/12/2012 1:28 PM CDT Comment:URINE Gabby Finney MD URINE ORDERABLES [facility]# [id number] [address] [facility] [address] * (ABNORMAL) HCG QUANTITATIVE, BLOOD (04/12/2012 1:15 PM CDT) HCG QUANT, BLOOD 580(H) 0 - 5 mIU/mL [facility] Comment: Result of 5 - 25 mIU/mL is indeterminant for , repeat of test recommemded in 48 hours. Reference Range: Gestational Age: 3 ??Weeks ?5.8 - 71.2 ?mIU/mL 4 ??Weeks ?9.5 - 750 ? mIU/mL 5 ??Weeks ?217 - 5126 ?mIU/mL 6 ??Weeks ?158 - 31,795 ?mIU/mL [...] 9040 - 56,451 ?mIU/mL 17 Weeks ? 8175 - 55,868 ?mIU/mL 18 Weeks ? 8099 - 58,176 ?mIU/mL Heterophile antibodies and other interfering substances in the serum of some patients may cause a false-positive result in this assay. ??Before making a diagnosis of malignancy or ectopic ,the result of this test should be confirmed with a urine HCG test and correlated with other clinical evidence. Blood specimen (specimen) 04/12/2012 1:15 PM CDT 04/12/2012 1:28 PM CDT Gabby Finney MD CHEMISTRY ORDERABLES Performing Organization Address [facility]/State/[facility] Co de Phone Number [facility]# [id number] [address] [facility] [place] [address] * (ABNORMAL) COMPREHENSIVE METABOLIC PANEL (04/12/2012 1:15 PM CDT) SODIUM 140 135 - 145 mmol/L [facility] POTASSIUM 3.6 3.5 - 4.9 mmol/L [facility] CHLORIDE 105 96 - 108 mmol/L [facility] CO2 23 22 - 30 mmol/L [facility] CALCIUM 9.8 8.6 - 10.2 mg/dL [facility] BUN 5(L) 6 - 20 mg/dL [facility] CREATININE 0.65 0.51 - 0.95 mg/dL [facility] GLUCOSE 87 65 - 99 mg/dL [facility] TOTAL PROTEIN 6.9 6.3 - 8.6 g/dL [facility] ALBUMIN 4.4 3.4 - 4.8 g/dL [facility] BILIRUBIN TOTAL 0.2 0.2 - 1.0 mg/dL [facility] ALKALINE PHOSPHATASE 108(H) 35 - 104 U/L [facility] AST 17 12 - 32 U/L [facility] ALT 18 0 - 31 U/L [facility] GFR, >60 >=60 mL/min/1. 7 sq meter [facility] GFR >60 >=60 mL/min/1. 7 sq meter [facility] Comment: GFR is calculated using the IDMS-Traceable Modification of Diet in Renal Disease (MDRD) Study formula and is only valid for patients 18 years or older. Further interpretative information is available in the Laboratory Services Policy Manual on the [facility] Intranet at: [email or web address] [email or web address] [email or web address]/ Blood specimen (specimen) 04/12/2012 1:15 PM CDT 04/12/2012 1:28 PM CDT Gabby Finney MD CHEMISTRY ORDERABLES [facility] CLIA# [id number] [address] [facility] [place] [address] * (ABNORMAL) CBC WITH DIFFERENTIAL (04/12/2012 1:15 PM CDT) WBC 8.4 4.0 - 9.8 K/uL [facility] RBC 5.26(H) 3.90 - 4.90 M/uL [facility] HEMOGLOBIN 14.7 11.8 - 14.8 g/dL [facility] HEMATOCRIT 43.6 35.5 - 44.0 % [facility] MCV 82.9 82.0 - 99.0 fL [facility] MCH 27.9 27.2 - 32.6 pg [facility] MCHC 33.7 31.5 - 35.5 % [facility] PLATELETS 247 140 - 350 K/uL [facility] MPV 9.4 9.3 - 12.4 fL [facility] RDW 14.2 11.5 - 14.5 % [facility] RDW-STDEV 42.7 37.1 - 48.7 fL [facility] NEUTROPHILS 56 45 - 70 % [facility] LYMPHOCYTES 36 16 - 45 % [facility] MONOCYTES 6 3 - 13 % [facility] EOSINOPHILS 1 0 - 7 % [facility] BASOPHILS 0 0 - 2 % [facility] NEUTROPHIL ABSOLUTE 4.72 1.90 - 7.00 K/uL [facility] LYMPHOCYTE ABSOLUTE 3.06 0.70 - 4.50 K/uL [facility] MONOCYTE ABSOLUTE 0.50 0.10 - 1.30 K/uL [facility] EOSINOPHIL ABSOLUTE 0.12 0.00 - 0.70 K/uL [facility] BASOPHILS ABSOLUTE 0.02 0.00 - 0.20 K/uL [facility] Blood specimen (specimen) 04/12/2012 1:15 PM CDT 04/12/2012 1:28 PM CDT Gabby Finney MD HEMATOLOGY ORDERABLE S [facility]# [id number] [address] [place], [place] [address] documented in this encounter Visit Diagnoses Diagnosis Threatened miscarriage Threatened , unspecified as to episode of care documented in this encounter Care Teams Co Pilot Relationship Specialty Start Date End Date (Excluded Provider) Mellisa Johnson DO PCP - General Family Practice 12/11/10 07/12/13 documented as of this encounter
--- OUTSIDE RECORDS SUMMARY | 2024-08-03 01:42 | XMS_ITS | Encounter Summary ---
Author Organization [facility] Address [address] [place] [address] Care Team Providers Care Power Sewing Machine Operator Name Role Phone EdenHilda pastrana RADHA Primary Care Provider Reason for Visit * Auth/Cert Specialty Diagnoses / Procedures Referred By Reva holbrook Referred To Contact Obstetrics and Gynecology Procedures LAPAROSCOPY DIAGNOSTIC/OPERATIVE [facility] [address] [place] [address] Referral ID Status Reason Start Date Expiration Date Visits Re quested Visits Authorized [id number] 08/07/2015 09/06/2016 1 Encounter Details Date Type Department Care Team (Late st Contact Info) Description 08/06/2015 7:38 PM BOAT CANVAS MAKER INSTALLER Anesthesia Event [facility] Operating Room [address] [place] [address] Fredis Pacheco DO [address] [place] [address] Brett Garcia MD [address] [facility] [address] [place] [address] Anesthesia Record Procedure Summary Procedure Name Responsible Anesthesiologist Anesthesia Start Time Anesthesia Stop Time LEFT SALPINGECTOMY LAPAROSCOPIC FOR ECTOPIC (Abdomen) Fredis Pacheco DO 08/06/15193708/06/152115 Events Date Time Event Comment 08/06/2015 1911 AN Equip Check Anesthesia eq uipment and materials checked in accordance with local policy. 1937 An Start 1937 An Start Data 1942 Pre-Induction Immediate pre- induction anesthetic assessment performed. Vital signs as noted on graphic. 1943 An Induction 1943 AN RSI 6 An Intubation 1950 Anesthesia Ready 1950 2056 An Emergence 2105 An Extubation Emergence unev entful Awake, spontaneous respirations. Adequate muscle strength demonstrated Adequate tidal volume. Orapharynx suctioned. Extubated with positive pressure ventilation. 2107 an stop data 2115 An Stop Meds Name Total lidocaine (XYLOCAINE) 2% injection 60 mg propofol (DIPRIVAN) 10??mg/mL injection 200 mg fentaNYL (SUBLIMAZE) PF 50??mcg/mL injec tion 100 mcg rocuronium (ZEMURON) 10??mg/mL injection 30 mg succinylcholine (ANECTINE) 20 mg/mL inje ction 140 mg glycopyrrolate (ROBINUL) 0.2 mg/mL injec tion 0.8 mg neostigmine (PROSTIGMINE) 1 mg/mL inject ion 4 mg ondansetron (ZOFRAN) 4??mg/2 mL injectio n 4 mg hydromorPHONE (DILAUDID) 1??mg/mL inject ion 1 mg famotidine PF (PEPCID) 20mg/2 mL injecti on 20 mg ketorolac (TORADOL) 30??mg/mL injection 30 mg lactated ringers infusion 1,100 mL * Agents Name Sevoflurane % Sevoflurane O2 Inspired O2 N2O Inspired N2O * Blood No blood administrations on file. Lines, Drains, and Airways Type Details Placement Removal Peripheral IV Pre-Hospital Start: No; Orientation: Right; Location: AC; Gauge: 18 gauge; Insertion Attempts: 3; Patient Tolerance: tolerated well; Removal Indication: no longer indicated; Removal Interventions: pressure dressing, catheter intact 08/06/15 1343 by Sarah Santos RN 08/07/15 1245 by Oralia Castaneda RN Endotracheal Airway Type: ETT; Cuff Pressure: minimal leak technique, minimal occluding volume, cuff inflated; Size: 7; Site: mouth; Attempts: 1; FOV: I; cm: 22; Device: Straight Blade, Stylet; Blade: 2; Secured: secured with tape; Cricoid: Yes; Verification: Auscultated bilateral breath sounds, Equal chest movement, Continuous waveform capnography 08/06/151945 by Trey Pinto AA-C 08/06/152105 by Trey Pinto AA-C Retired Urethral Catheter 08/06/15; 2001; Indwelling double lumen catheter; 100% silicone; 16 Fr; inserted; 1; 5; 10; 08/06/15; 204808/06/152001 by Lenore Noguera RN 08/06/152048 by Lenore Noguera RN Adult Incision 08/06/15; 2027; surgical incision; Bilateral; vagina; 08/08/15; 0152 08/06/152027 by Lenore Noguera RN 08/08/15 0152 by PROVIDER, DISCHARGE PATIENT Adult Incision 08/06/15; 2027; surgical incision; Bilateral; abdomen; 08/08/15; 0152 08/06/152027 by Lenore Noguera RN 08/08/15 0152 by PROVIDER, DISCHARGE PATIENT documented in this [...] on file documented as of this encounter OR Notes * Anesthesia Postprocedure Evaluation - Fredis Pacheco DO - 08/06/2015 9:22 PM CST Phase I Postanesthesia Evaluation Including Modified Joan Score Patient seen and evaluated: Modified Joan Score: Score: 9 (08/06/152114) COMMENTS: No apparent Anesthesia related complications RESPIRATORY FUNCTION: Respiration: able to breath and cough freely (08/06/152114) [2=able to breathe and cough freely, 1=dyspnea, limited breathing or tachypnea, 0=apnea or mechanicventilator] O2 Saturation: able to maintain O2 saturation greater than 92% on room air (08/06/152114) [2=able to maintain O2 saturation greater than 92% on room air, 1=needs O2 inhalation to maintain O2 saturation greater than 90%, 0=O2 saturation less than 90% even with O2 supplement] Resp: 22 (08/06/15 1458)SpO2: 96 % (08/06/15 1800) CARDIOVASCULAR FUNCTION: Heart Rate: 108 bpm (08/06/152110) BP: 118/74 mmHg (08/06/152110) Circulation: BP within 20% of preanesthetic level (08/06/152114) [2=BP within 20% of preanesthetic level, 1=BP within 20-49% of preanesthetic level, 0=BP within 50%of preanesthetic level] MENTAL STATUS, NEURO, ACTIVITY: PATIENT PARTICIPATION IN EVALUATION:yes Consciousness: arousable on calling (08/06/152114) [2=fully awake, 1=arousable on calling, 0=not responding] Activity: able to move 4 extremities voluntarily or on command (08/06/152114) [2=able to move 4 extremities voluntarily or on command, 1=able to move 2 extremities voluntarily or on command, 0=unable to move extremities voluntarily or on command] TEMPERATURE: Temp: 36.8 ??C (08/06/152110) PAIN: Pain Rating: Rest: 8 (08/06/15 1902) NAUSEA AND VOMITING: no nausea and no vomiting POSTOPERATIVE HYDRATION: well hydrated Intake/Output Summary (Last 24 hours) at 08/06/152121 Last data filed at 08/06/152107 Gross per 24 hour Intake 1100 ml Output 600 ml Net 500 ml Fredis Pacheco DO 08/06/2015 9:22 PM Fredis Pacheco DO CANVAS MAKER INSTALLER * Anesthesia Handoff - Trey Pinto AA-C - 08/06/2015 9:11 PM BOAT CANVAS MAKER INSTALLER Post-Anesthetic transfer of care report elements to [...] and acknowledgement of understanding. Vital Signs: BP: 118/74 mmHg (08/06/2015 9:11 PM) Pulse: 108 (08/06/2015 9:11 PM) Heart Rate: 108 bpm (08/06/2015 9:11 PM) Temp: 36.8 ??C (08/06/2015 9:11 PM) Resp: 22 (08/06/2015 9:11 PM) SpO2: 99 % (08/06/2015 9:11 PM) 9:11 PM TENA HUANG CANVAS MAKER INSTALLER * Anesthesia Preprocedure Evaluation - Fredis Pacheco DO - 08/06/2015 7:48 PM CST Anesthesia Evaluation Anesthesia Plan ASA 3 - emergent General Intravenous induction Oral ETT airway maintenance NPO status > 8 hours Anesthetic plan and risks discussed with Patient. Use of blood products: consented to blood products. Plan discussed with Anesthesiologist Silk Trimmer. Pre-Anesthesia Evaluation - Long Form 08/06/2015 7:48 PM Name: Vera Vitale Age: 30 y.o. Sex: female CSN: [id number] Allergies Allergen Reactions ??? Adhesive Other (See Comments) Skin irritation ??? Latex Rash Prescriptions prior to admission Medication Sig Dispense Refill Last Dose ??? amitriptyline (ELAVIL) 50 mg tablet Take 50 mg by mouth daily at bedtime. 04/03/2014 at Unknown time ??? aspirin (KESHA CHEWABLE) 81 mg Tablet, Chewable Take 81 mg by mouth daily. 04/03/2014 at Unknowntime ??? vit-iron fumarate-FA ( VITAMIN) 27-0.8 mg Oral Tab Take 1 Tab by mouth daily. 11/20/2010 at Unknown ??? oxyCODONE-acetaminophen (PERCOCET) 7.5-325 mg Tablet Take 1 Tab by mouth every 4 hours as needed for Pain, Moderate. 04/03/2014 at Unknown time ??? nortriptyline (PAMELOR) 75 mg capsule Take 75 mg by mouth daily at bedtime. 04/04/2014 at Unknown time ??? CYANOCOBALAMIN/FA/PYRIDOXINE (FABB ORAL) Take by mouth daily. 04/03/2014 at Unknown time ??? methylPREDNISolone (MEDROL, FRANK,) 4 mg Tablets, Dose Pack As per packet insert 1 Package None ??? gabapentin (NEURONTIN) 300 mg capsule Take 1 Cap by mouth 3 times daily. 20 Cap 0 Unknown at Unknown time ??? divalproex SR 24 hour (DEPAKOTE ER) 250 mg tablet Take 750 mg by mouth 3 times daily. 04/04/2014t Unknown time ??? venlafaxine (EFFEXOR) 100 mg tablet Take 100 mg by mouth 3 times daily. 04/04/2014 at Unknown time ??? oxyCODONE-acetaminophen (PERCOCET) 5-325 mg Oral tablet Take 1-2 Tabs by mouth every 6 hours asneeded for Pain, Moderate. 20 Tab None 07/14/2013 at Unknown ??? diazepam (VALIUM) 5 mg Oral tablet Take 1 Tab by mouth every 8 hours as needed for Anxiety. 15 Tab 0 ??? methylPREDNISolone (MEDROL, FRANK,) 4 mg Oral DsPk As per package insert 1 Package None ??? HYDROcodone-acetaminophen (LORTAB) 5-500 mg Oral tablet Take 1 Tab by mouth every 4 hours as needed for Pain. 20 Tab None 04/15/2012 at Unknown ??? ibuprofen (MOTRIN) 600 mg Oral tablet Take 1 Tab by mouth every 6 hours as needed for Pain. 60 Tab 1 Unknown at Unknown ??? HYDROcodone-acetaminophen (NORCO) 5-325 mg Oral tablet Take 1 Tab by mouth every 4 hours as needed. 50 Tab 0 Current Facility-Administered Medications Medication Dose Route Frequency Provider Last Rate Last Dose ??? [COMPLETED] morphine 4 mg/mL injection 4 mg 4 mg IV ONCE Gutierrez Walter MD 4 mg at 08/06/15 1406 ??? [COMPLETED] morphine 4 mg/mL injection 4 mg 4 mg IV ONCE Gutierrez Walter MD 4 mg at 08/06/15 1425 ??? [COMPLETED] fentaNYL PF (SUBLIMAZE) 50 mcg/mL injection 50 mcg 50 mcg IV ONCE Gutierrez Walter MD 50 mcg at 08/06/15 1453 ??? [COMPLETED] fentaNYL PF (SUBLIMAZE) 50 mcg/mL injection 50 mcg 50 mcg IV ONCE Gutierrez Walter MD 50 mcg at 08/06/15 1633 ??? [COMPLETED] hydromorPHONE (DILAUDID) 1 mg/mL injection 1 mg 1 mg IV ONCE Gutierrez Walter MD 1mg at 08/06/15 1657 ??? [COMPLETED] diphenhydrAMINE (BENADRYL) injection 25 mg 25 mg IV ONCE Gutierrez Walter MD 25 mgat 08/06/15 1731 ??? [COMPLETED] LORazepam (ATIVAN) 2 mg/mL injection 1 mg 1 mg IV ONCE Yadiel Figueredo, DO 1 mgat 08/06/15 1740 ??? [DISCONTINUED] LORazepam (ATIVAN) 2 mg/mL injection 1 mg 1 mg IM ONCE Yadiel Figueredo, DO Patient Active Problem List Diagnosis Date Noted ??? Tobacco use 08/06/2015 ??? Normal (single liveborn) 11/23/2010 ??? C section 11/2111/21/2010 Past Medical History Diagnosis Date ??? MRSA (methicillin resistant Staphylococcus aureus) 08/2009 cysts on leg, never cultured-told it was staph and was given medication ??? High cholesterol ??? Anxiety ??? Depression bipolar Past Surgical History Procedure Laterality Date ??? Hx ear surgery ??? Hx cholecystectomy 02/2010 ??? Pr delivery only 11/21/2010 SECTION performed by JERICA JULIEN at [facility] L&D ??? Hchg dilitation and curettage 01/14/2014 History Substance Use Topics ??? Smoking status: Current Every Day Smoker -- 0.50 packs/day for 10 years Types: Cigarettes ??? Smokeless tobacco: Never Used ??? Alcohol Use: No Family History Problem Relation Age of Onset ??? Diabetes Father ??? Thyroid Disease Father ??? Hypertension Mother ??? Diabetes Brother Previous Anesthesia Problems/Concerns: No anesthesia problems/complications History of PONV No Review of Systems Cardiovascular: negative Respiratory: negative Gastroenterology: morbid obesity Aircraft Painter; prob ectopic , Hg wnl, VSS Psych: very anxious in ER requiring ativan prn, bipolar d/o PHYSICAL EXAM BP 111/74 mmHg Pulse 112 Temp(Src) 36.6 ??C (Oral) Resp 22 Ht 5' 6 (1.676 m) Wt 262 lb (118.842 kg) BMI 42.31 kg/m2 SpO2 96% LMP 06/15/2015 Weight: Weight: 262 lb (118.842 kg) (08/06/15 1324) Height: Ht Readings from Last 1 Encounters: 08/06/15 5' 6 (1.676 m) BMI: Body mass index is 42.31 kg/(m^2). Airway: normal range of motion: Airway Class: III (soft palate, base of uvula visible); None Lungs: clear to auscultation bilaterally, normal respiratory effort Heart: regular rate and rhythm, S1, S2 normal, no murmur, click, rub or gallop Neuro: alert, oriented x 3, no defects noted in general exam. Vascular Access: Peripheral Line LABS Lab Results Component Value Date/Time WBC 7.4 08/06/2015 01:55 PM WBC 9.7 07/15/2013 11:40 PM HEMOGLOBIN 14.9* 08/06/2015 01:55 PM HEMOGLOBIN 15.7* 07/15/2013 11:40 PM HEMATOCRIT 44.7* 08/06/2015 01:55 PM HEMATOCRIT 44.9* 07/15/2013 11:40 PM PLATELETS 300 08/06/2015 01:55 PM PLATELETS 273 07/15/2013 11:40 PM MCV 86.3 08/06/2015 01:55 PM MCV 84.7 07/15/2013 11:40 PM Lab Results Component Value Date/Time SODIUM 140 08/06/2015 01:55 PM POTASSIUM 3.6 08/06/2015 01:55 PM CHLORIDE 102 08/06/2015 01:55 PM CO2 24 08/06/2015 01:55 PM CALCIUM 9.4 08/06/2015 01:55 PM BUN 6 08/06/2015 01:55 PM CREATININE 0.73 08/06/2015 01:55 PM GLUCOSE 93 08/06/2015 01:55 PM ANION GAP 14 08/06/2015 01:55 PM No results found for: INR, PT, PROTIMEPOC Lab Results Component Value Date/Time POC , URINE Negative 04/04/2014 09:03 PM HCG QUANT, BLOOD 411.2* 08/06/2015 01:55 PM HCG QUANT, BLOOD 15* 07/22/2013 12:21 PM No results found for: GLUCPOC EKG: EKG not indicated today Other Studies/Considerations: None Postop pain management discussed yes Smoking/Tobacco Counseling: None Recommendations: None ASA Physical Status: ASA 3 - Patient with moderate systemic disease with functional limitations or E - Emergency Circumstances I have seen and examined this patient and confirm that all data is current and accurate. Yes Choice of Anesthesia/Anesthesia Plan: Proceed and General I have discussed the anesthetic options and the risks/benefits with the patient/family. Questions have been solicited and answered. Yes Fredis Pacheco DO CANVAS MAKER INSTALLER documented in this encounter Plan of Treatment Upcoming Encounters Date Type Department Care Team (Late st Contact Info) Description 10/14/2024 11:00 AM BOAT CANVAS MAKER INSTALLER Office Visit [facility] Oncology and Hematology - Alirio [address] [facility] [address] [place] [address] Ubaldo Cardenas MD [address] [facility] [address] [place] [address] documented as of this encounter Visit Diagnoses Not on filedocumented in this encounter Administered Medications Inactive Administered Medications - up to 3 most recent administrations Medication Order MAR Action Action Date Dose Rate Site famotidine PF (PEPCID) 20 mg/2 mL injection INTRA-PROCEDURE PRN, Starting on Sun08/06/15 at 2024, Until Sun08/06/15 at 2115, Routine, Anesthesia Intra-op Given 08/06/2015 8:25 PM BOAT CANVAS MAKER INSTALLER 20 mg fentaNYL PF (SUBLIMAZE) 50 mcg/mL injection INTRA-PROCEDURE PRN, Starting on Sun08/06/15 at 1942, Until Sun08/06/15 at 2115, Routine, Anesthesia Intra-op Given 08/06/2015 7:42 PM BOAT CANVAS MAKER INSTALLER 100 mcg glycopyrrolate (ROBINUL) injection INTRA-PROCEDURE PRN, Starting on Sun08/06/15 at 2048, Until Sun08/06/15 at 2115, Routine, Anesthesia Intra-op Given 08/06/2015 8:49 PM BOAT CANVAS MAKER INSTALLER 0.8 mg hydromorPHONE (PF) (DILAUDID) 1 mg/mL injection INTRA-PROCEDURE PRN, Starting on Sun08/06/15 at 2009, Until Sun08/06/15 at 2115, Routine, Anesthesia Intra-op Given 08/06/2015 8:23 PM BOAT CANVAS MAKER INSTALLER 0.5 mg Given 08/06/2015 8:09 PM BOAT CANVAS MAKER INSTALLER 0.5 mg ketorolac (TORADOL) injection INTRA-PROCEDURE PRN, Starting on Sun08/06/15 at 2053, Until Sun08/06/15 at 2115, Routine, Anesthesia Intra-op Given 08/06/2015 8:53 PM BOAT CANVAS MAKER INSTALLER 30 mg lactated ringers solution INTRA-PROCEDURE CONTINUOUS PRN, Starting on Sun08/06/15 at 1938, Until Sun08/06/15 at 2115, Routine, Anesthesia Intra-op New Bag 08/06/2015 8:58 PM BOAT CANVAS MAKER INSTALLER New Bag 08/06/2015 7:38 PM BOAT CANVAS MAKER INSTALLER lidocaine 2 % (XYLOCAINE) injection INTRA-PROCEDURE PRN, Starting on Sun08/06/15 at 1944, Until Sun08/06/15 at 2115, Other (See Comment), Routine, Anesthesia Intra-op Given 08/06/2015 7:44 PM BOAT CANVAS MAKER INSTALLER 60 mg neostigmine (PROSTIGMINE) 1 mg/mL injection INTRA-PROCEDURE PRN, Starting on Sun08/06/15 at 2049, Until Sun08/06/15 at 2115, Routine, Anesthesia Intra-op Given 08/06/2015 8:49 PM BOAT CANVAS MAKER INSTALLER 4 mg ondansetron (ZOFRAN) 4 mg/2 mL injection INTRA-PROCEDURE PRN, Starting on Sun08/06/15 at 2025, Until Sun08/06/15 at 2115, Nausea/Emesis, Routine, Anesthesia Intra-op Given 08/06/2015 8:25 PM BOAT CANVAS MAKER INSTALLER 4 mg propofol (DIPRIVAN) injection INTRA-PROCEDURE PRN, Starting on Sun08/06/15 at 1944, Until Sun08/06/15 at 2115, Anesthesia Intra-op Given 08/06/2015 7:44 PM BOAT CANVAS MAKER INSTALLER 200 mg rocuronium (ZEMURON) injection INTRA-PROCEDURE PRN, Starting on Sun08/06/15 at 1952, Until Sun08/06/15 at 2115, Routine, Anesthesia Intra-op Given 08/06/2015 7:55 PM BOAT CANVAS MAKER INSTALLER 30 mg succinylcholine (ANECTINE) 20 mg/mL injection INTRA-PROCEDURE PRN, Starting on Sun08/06/15 at 1944, Until Sun08/06/15 at 2116, Routine, Anesthesia Intra-op Given 08/06/2015 7:44 PM BOAT CANVAS MAKER INSTALLER 140 mg documented in this encounter Care Teams Power Sewing Machine Operator Relationship Specialty Start Date End Date Hilda Eden FNP [address] [place] [phone] PCP - General NURSE PRACTITIONER 07/13/13 01/05/18 documented as of this encounter
--- OUTSIDE RECORDS SUMMARY | 2024-08-03 01:42 | XMS_ITS | Encounter Summary ---
Author Organization [facility] Address [address] [place] [address] Care Team Providers Care Insulation Board Coater Operator Name Role Phone Hilda Eden RADHA Primary Care Provider [phone] Encounter Details Date Type Department Care Team (Late st Contact Info) Description 07/22/2013 Orders Only [facility] Laboratory Services [facility] [place] [facility] [address] [facility] [address], [place] [address] [place] [address] [place] [address] Social History Tobacco Use Types Packs/Day Years [...] (Late Contact Info) Description 10/14/2024 11:00 AM LOCK SETTER Office Visit [facility] Oncology and Hematology - Alirio [address] [facility] [address] [place] [address] Ubaldo Cardenas MD [address] [facility] [address] [place] [address] documented as of this encounter Visit Diagnoses Not on filedocumented in this encounter Care Teams Insulation Board Coater Operator Relationship Specialty Start Date End Date Hilda Eden FNP [address] [place] [address] PCP - General NURSE PRACTITIONER 07/13/13 01/05/18 documented as of this encounter
--- OUTSIDE RECORDS SUMMARY | 2024-08-03 01:42 | XMS_ITS | Encounter Summary ---
Author Organization [facility] Address [address] [place] [address] Care Team Providers Care Fan Mail Clerk Name Role Phone Hilda Eden RADHA Primary Care Provider Reason for Visit * Reason Onset Date Comments Question 08/09/2015 Encounter Details Date Type Department Care Team (Late st Contact Info) Description 08/09/2015 Patient Outreach [facility] Trauma and General Surgery [address] [facility] [address] [address] Ryan Arambula MD NO ADDRESS ON FILE Question Social History Tobacco Use Types Packs/Day Years [...] Miscellaneous Notes * Telephone Encounter - Nati Vergara Nathaly - 08/09/2015 8:25 AM CST Pt's called stating that Vera had surgery on . She was told that she should only have a little spotting. She got up this morning and she is gushing blood. Her Dr office is not open yet and when he called the hospital main number they gave him ournumber because we are surgery. He was told to take her to emergency room. He is taking her to ED now. RETE PRODUCTS DISPATCHER documented in this encounter Plan of Treatment Upcoming Encounters Date Type Department Care Team (Late st Contact Info) Description 10/14/2024 11:00 AM CONCRETE PRODUCTS DISPATCHER Office Visit [facility] Oncology and Hematology - Alirio [address] [facility] [address] [place] [address] Ubaldo Cardenas MD [address] [facility] [address] [place] [address] documented as of this encounter Visit Diagnoses Not on filedocumented in this encounter Care Teams Fan Mail Clerk Relationship Specialty Start Date End Date Hilda Eden FNP [address] [place] [phone] PCP - General NURSE PRACTITIONER 07/13/13 01/05/18 documented as of this encounter
--- OUTSIDE RECORDS SUMMARY | 2024-08-03 01:42 | XMS_ITS | Encounter Summary ---
Author Organization [employer] Address [address] [place] [address] Care Team Providers Care Campus Recruiter Name Role Phone Hilda Eden RADHA Primary Care Provider [phone] Reason for Referral * Outpatient Services (Routine) - Closed Specialty Diagnoses / Procedures Referred By Contac t Referred To Contact Diagnoses Encounter for routine screening for malformation using ultrasonics Obesity, unspecified obesity severity, unspecified obesity type Procedures US OB 14+ [place] [address] [place] [address] Referral ID Status Reason Start Date Expiration Date Visits Re quested Visits Authorized [id number] Closed 05/29/2016 06/29/2017 1 1 DESSERT Reason for Visit * Outpatient Services (Routine) - Closed Specialty Diagnoses / Procedures Referred By Contac t Referred To Contact Diagnoses Encounter for routine screening for malformation using ultrasonics Obesity, unspecified obesity severity, unspecified obesity type Procedures OB 14+ [place] [address] [place] [address] Referral ID Status Reason Start Date Expiration Date Visits Re quested Visits Authorized [id number] Closed 05/29/2016 06/29/2017 1 1 Encounter Details Date Type Department Care Team (Latest Contact Info) Description 06/27/2016 9:29 AM COOK DESSERT - 06/27/2016 11:59 PM [facility] Hospital Encounter [facility] and Ground Floor [address] [place] [address] [place] [address] [place] [address] Discharge Disposition: Home or Self Care Social [...] st Contact Info) Description 10/14/2024 11:00 AM COOK DESSERT Office Visit [facility] Oncology and Hematology - [place] [address] [place] [address] Ubaldo Cardenas MD [address] [facility] [facility] [address] [place] [address] documented as of this encounter Procedures Procedure Name Priority Date/Time Associated Diagnosis Comments US OB 14+ WKS SINGLE GEST Routine 06/27/2016 11:02 AM COOK DESSERT Encounter for routine screening for malformation using ultrasonics Obesity, unspecified obesity severity, unspecified obesity type documented in this encounter Results * US OB 14+ WKS SINGLE GEST (06/27/2016 11:02 AM COOK DESSERT) Anatomical Region Laterality Modality Pelvis Ultrasound 06/27/2016 9:51 AM COOK DESSERT Impressions 06/27/2016 10:44 AM COOK DESSERT IMPRESSION ----- Viable IUP, today's biometry is consistnet with thestated GA of 25 weeks 3 days, and EDC of 10/07/16. There is a midline echolucent prominence superior to the thalmus. It may be a normal varient. The remeained of the anatomic survey is normal. Normal fluid and maternal structures. Narrative 06/27/2016 10:44 AM COOK DESSERT Basic Study ----- Pat. Name: VERA PARKER Study Date: 06/27/2016 9:51am Pat. NO: [id number] Referring ??MD: KEO JULIEN MD Site: [facility] Planner Internship: Angela Curtis RDMS : 1985 Age: 31 ----- INDICATION ----- Recurrent loss, Antepartum ? x10 Known/Susp Abnormality, Other (Due to ?Unable to complete anatomy in office Abnormal Outside US) Previous History of PTD ? at 35 weeks due to pre-eclampsia Maternal Obesity (bmi>40) Maternal Mental Disorder ? Anxiety/Depression CODING ----- Diagnosis ? O26.22: care for patient with recurrent loss. ?O35.8XX0: Maternal care for suspected abnormality: Unspecified Fetus. ?O28.0: Abnormal hematologic finding on screening of mother. ?O34.21: Maternal care for scar from previous delivery. ?O09.212: Supervision of with history of pre-term labor. ?O99.212: Obesity complicating . ?E66.01: Morbid (severe) obesity due to excess calories. ?O99.342: Other mental disorders complicating . ?Z3A.25: Weeks Gestation of . Procedures ?95644: OB >14 wks (1st Basic). HISTORY ----- OB History ?: 12. Para: 1. ?A10L1. ?Miscarriages: 9. Ectopic: 1. MATERNAL ASSESSMENT ----- Physical Exam ? Weight 112 kg. BMI 40.05 kg/m?. METHOD ----- Transabdominal ultrasound examination. ----- Easley . Number of fetuses: 1. DATING ----- GA by stated dating 25 w + 3 d MINDY by stated dating : 10/07/2016 Ultrasound examination on: 06/27/2016 GA by U/S based upon: AC, BPD, Femur, HC GA by U/S 25 w + 4 d MINDY by U/S: 10/06/2016 Assigned: Dating performed on 06/27/2016, based on the stated dating Assigned GA 25 w + 3 d Assigned MINDY: 10/07/2016 BIOMETRY ----- Main Biometry: BPD ?61.6 ? mm ?27% ? 25w 0d ? Hadlock HC ? 240.6 ?mm ?52% ? 26w 1d ? Hadlock AC ? 215.0 ?mm ?59% ? 26w 0d ? Hadlock Femur ?46.3 ? mm ?35% ? 25w 3d ? Hadlock Cerebellum tr ?27.5 ? mm ?40% ? 25w 4d ? Murry CM ? 7.8 ?mm ?88% ?Nicolaides Humerus ?45.2 ? mm ?83% ? 26w 6d ? Barbara Weight Calculation: EFW ?846 ?g ? 54% ?Terell EFW (lb,oz) ?1 lb ? oz ? 14 Calculated by ?Hadlock (LLP-[id number]-FL) Proportionality Ratios: HC / AC ?1.12 ? 47% ?Nicolaides FL / BPD ? 0.75 ? FL / AC ?0.22 ? Head / Face / Neck Biometry: Outer IOD ?40.40 ?mm ?23% ? 25w 4d ? Barbara Extremities / Bony Struc Biometry: Tibia ?46.5 ? mm ?99% ? 28w 2d ? Barbara Amniotic Fluid / FHR: AF MVP ? 3.9 ?cm ? NATHAN ?14.4 ? cm ?46% ?Carrizales FHR ?149 ?bpm ? GENERAL EVALUATION ----- Cardiac activity: present. FHR 149 bpm. Presentation: cephalic. Placenta: posterior. Umbilical cord: 3 vessel cord PCI normal . Amniotic fluid: normal amount. NATHAN 14.4 cm. Q1 3.5 cm, Q2 3.2 cm, Q3 3.7 cm, Q4 3.9 cm. ANATOMY ----- The following structures were visualized with normal appearance: Head ?Head shape and size appear normal. Brain ? Lateral cerebral ventricles. Cisterna magna. Choroid plexus. Cerebellum. Face ?Profile. Orbits. Nose. Lips. Palate. Spine ? Cervical spine. Thoracic spine. Thorax ?Diaphragm. Heart ? Four chamber view. Left ventricular outflow tract. Right ventricular outflow tract. Bicaval view. Aortic ?arch view. Ductal arch view. Cardiac rhythm. Abdominal wall ?Umbilical cord insertion site. Stomach ? Stomach size and situs appear normal. Kidneys ? Kidneys appear normal bilaterally. Bladder ? size and shape. Upper extrem. ? Right upper arm. Right forearm. Left upper arm. Left forearm. Lower extrem. ? Right upper leg. Right lower leg. Right foot. Left upper leg. Left lower leg. Left foot. The following structures were visualized: Brain ? Cavum septi pellucidi. The following structures could not be visualized: Spine ? Lumbar spine. Sacral spine. Upper extrem. ? Right hand. Left hand. Gender: male. FOLLOW-UP ----- Recommendations: a repeat US in 4 weeks is recommended to assess growth, and to recheck the intracranial anatomy. Procedure Note Carolina Cortez MD - 06/27/2016 Basic Study ----- Pat. Name:Michael PARKER Date:06/27/2016 9:51am Pat. NO: [id number] MD:KEO JULIEN MD [facility]Angela Curtis RDMS :1985Age:31 ----- INDICATION ----- Recurrent loss, Antepartum x10 Known/Susp Abnormality, Other (Due to Unable to completeanatomy in office Abnormal Outside US) Previous History of PTD at 35 weeks due topre-eclampsia Maternal Obesity (bmi>40) Maternal Mental Disorder Anxiety/Depression CODING ----- Diagnosis O26.22: care for patient with recurrentpregnancy loss. O35.8XX0: Maternal care for suspected fetalabnormality: Unspecified Fetus. O28.0: Abnormal hematologic finding on antenatalscreening of mother. O34.21: Maternal care for scar from previouscesarean delivery. O09.212: Supervision of with history ofpre-term labor. O99.212: Obesity complicating . E66.01: Morbid (severe) obesity due to excesscalories. O99.342: Other mental disorders complicatingpregnancy. Z3A.25: Weeks Gestation of . Procedures 21448: OB >14 wks (1st Basic). HISTORY ----- OB History : 12. Para: 1. A10L1. Miscarriages: 9. Ectopic: 1. MATERNAL ASSESSMENT ----- Physical Exam Weight 112 kg. BMI 40.05 kg/m?. METHOD ----- Transabdominal ultrasound examination. ----- Easley . Number of fetuses: 1. DATING ----- GA by stated dating 25 w + 3 d MINDY by stated dating :10/07/2016 Ultrasound examination on:06/27/2016 GA by U/S based upon:AC, BPD, Femur, HC GA by U/S25 w + 4 d MINDY by U/S:10/06/2016 Assigned:Dating performed on 06/27/2016, based on the stated dating Assigned GA25 w + 3 d Assigned MINDY:10/07/2016 BIOMETRY ----- Main Biometry: BPD 61.6 mm 27% 25w 0dHadlock HC 240.6 mm 52% 26w 1dHadlock AC 215.0 mm 59% 26w 0dHadlock Femur 46.3 mm 35% 25w 3dHadlock Cerebellum tr 27.5 mm 40% 25w 4dGoldstein CM 7.8 mm 88%Nicolaides Humerus 45.2 mm 83% 26w 6dJeanty Weight Calculation: EFW 846 g 54%Terell EFW (lb,oz) 1 lb oz 14 Calculated by Arun (UME-TC-FX-FL) Proportionality Ratios: HC / AC 1.12 47%Nicolaides FL / BPD 0.75 FL / AC 0.22 Head / Face / Neck Biometry: Outer IOD 40.40 mm 23% 25w 4dJeanty Extremities / Bony Struc Biometry: Tibia 46.5 mm 99% 28w 2dJeanty Amniotic Fluid / FHR: AF MVP 3.9 cm NATHAN 14.4 cm 46%Carrizales FHR 149 bpm GENERAL EVALUATION ----- Cardiac activity: present. FHR 149 bpm. Presentation: cephalic. Placenta: posterior. Umbilical cord: 3 vessel cord PCI normal . Amniotic fluid: normal amount. NATHAN 14.4 cm. Q1 3.5 cm, Q2 3.2 cm, Q3 3.7cm, Q4 3.9 cm. ANATOMY ----- The following structures were visualized with normal appearance: Head Head shape and size appear normal. Brain Lateral cerebral ventricles. Cisterna magna.Choroid plexus. Cerebellum. Face Profile. Orbits. Nose. Lips. Palate. Spine Cervical spine. Thoracic spine. Thorax Diaphragm. Heart Four chamber view. Left ventricular outflow tract.Right ventricular outflow tract. Bicaval view. Aortic arch view. Ductal arch view. Cardiac rhythm. Abdominal wall Umbilical cord insertion site. Stomach Stomach size and situs appear normal. Kidneys Kidneys appear normal bilaterally. Bladder size and shape. Upper extrem. Right upper arm. Right forearm. Left upper arm.Left forearm. Lower extrem. Right upper leg. Right lower leg. Right foot. Leftupper leg. Left lower leg. Left foot. The following structures were visualized: Brain Cavum septi pellucidi. The following structures could not be visualized: Spine Lumbar spine. Sacral spine. Upper extrem. Right hand. Left hand. Gender: male. FOLLOW-UP ----- Recommendations: a repeat US in 4 weeks is recommended to assess fetalgrowth, and to recheck the intracranial anatomy. IMPRESSION IMPRESSION ----- Viable IUP, today's biometry is consistnet with thestated GA of 25 weeks 3days, and EDC of 10/07/16. There is a midline echolucent prominence superior to the thalmus. It maybe a normal varient. The remeained of the anatomic survey is normal. Normal fluid and maternal structures. Keo Julien MD ORDERABLES documented in this encounter Visit Diagnoses Diagnosis Encounter for routine screening for malformation using ultrasonics Obesity, unspecified obesity severity, unspecified obesity type documented in this encounter Care Teams Campus Recruiter Relationship Specialty Start Date End Date Hilda Eden FNP [address] [place] [id number] PCP - General NURSE PRACTITIONER 07/13/13 01/05/18 documented as of this encounter
--- OUTSIDE RECORDS SUMMARY | 2024-08-03 01:42 | XMS_ITS | Encounter Summary ---
Author Organization [employer] Address [address] [address] [place] [address] Care Team Providers Care Access Lead Name Role Phone Hilda Eden RADHA Primary Care Provider [phone] Reason for Visit * Outpatient Services (Routine) - Closed Specialty Diagnoses / Procedures Referred By Reva holbrook Referred To Contact Laboratory Diagnoses [place] [address] [place] [address] [facility] [place] [address] [place] [address] Referral ID Status Reason Start Date Expiration Date Visits Re quested Visits Authorized [id number] Closed 07/22/2013 08/22/2014 1 1 Encounter Details Date Type Department Care Team (Latest Contact Info) Description 07/22/2013 12:09 PM LEGAL OFFICER - 07/22/2013 11:59 PM [facility] Hospital Encounter [facility] Laboratory Services Medical [place] [address] [place] [address] [place] [address] [place] [address] Discharge Disposition: Home or Self [...] Sig Dispensed Refills Start Date End Date methylPREDNISolone (MEDROL, FRANK,) 4 mg Tablets, Dose Pack As per packet insert 1 Package None 07/16/2013 08/07/2015 gabapentin (NEURONTIN) 300 mg capsule Take 1 Cap by mouth 3 times daily. 20 Cap 0 07/16/2013 06/02/2016 divalproex SR 24 hour (DEPAKOTE ER) 250 mg tablet Take 750 mg by mouth 3 times daily. 06/02/2016 venlafaxine (EFFEXOR) 100 mg tablet Take 100 mg by mouth 3 times daily. 06/02/2016 oxyCODONE-acetaminophen (PERCOCET) 5-325 mg Oral tablet Take [...] st Contact Info) Description 10/14/2024 11:00 AM LEGAL OFFICER Office Visit [facility] Oncology and Hematology - [place] [address] [place] [address] Ubaldo Cardenas MD [address] [facility] [address] [place] [address] documented as of this encounter Procedures Procedure Name Priority Date/Time Associated Diagnosis Comments HCG QUANTITATIVE, BLOOD Stat 07/22/2013 12:21 PM LEGAL OFFICER Missed documented in this encounter Results * (ABNORMAL) HCG QUANTITATIVE, BLOOD (07/22/2013 12:21 PM LEGAL OFFICER) HCG QUANT, BLOOD 15(H) 0 - 5 mIU/mL [facility] [employer] [facility] Comment: Result of 5 - 25 mIU/mL is indeterminant for , repeat of test recommemded in 48 hours. Reference Range: Gestational Age: 3 ??Weeks ?5.8 - 71.2 ?mIU/mL 4 ??Weeks ?9.5 - 750 ? mIU/mL 5 ??Weeks ?217 - 5075 ?mIU/mL 6 ??Weeks ?158 - 31,795 ?mIU/mL [...] with other clinical evidence. Blood specimen (specimen) 07/22/2013 12:21 PM LEGAL OFFICER 07/22/2013 12:26 PM LEGAL OFFICER Narrative [facility] - 07/22/2013 1:29 PM LEGAL OFFICER Call results to [phone] Dr Keo Meza eKo Meza MD CHEMISTRY ORDERABLES Performing Organization Address City/State/[facility] Co de Phone Number [facility] CLIA# [id number] [address] [place] [address] documented in this encounter Visit Diagnoses Diagnosis Missed - Primary documented in this encounter Care Teams Access Lead Relationship Specialty Start Date End Date Hilda Eden FNP [address] [place] [address] PCP - General NURSE PRACTITIONER 07/13/13 01/05/18 documented as of this encounter
--- OUTSIDE RECORDS SUMMARY | 2024-08-03 01:42 | XMS_ITS | Encounter Summary ---
Author Organization [employer] Address [address] [place] [address] Care Team Providers Care Business Systems Advisor Name Role Phone Hilda Eden RADHA Primary Care Provider Reason for Visit * Reason Comments Vaginal Bleeding pt presents with com plaints of an explosion to left lower quadrant, left leg and foot numbness. pt states 20 minutes later she developed vaginal bleeding. pt reports bleeding has increased. pt reports hx of ectopic a year ago with same symptoms. + distal pulses Encounter Details Date Type Department Care Team (Late st Contact Info) Description 07/15/2013 10:51 PM ELECTRICAL DISCHARGE MACHINE OPERATOR - 07/16/2013 2:[address] [facility] Emergency [facility] Emergency Department [address] [place] [id number] Josiah Layton MD [address] [facility] [place] [address] Threatened miscarriage (Primary Dx); Sciatica Discharge Disposition: Home or Self Care Social [...] Sign Reading Time Taken Comments Blood Pressure 153/103 07/16/2013 1:38 AM ELECTRICAL DISCHARGE MACHINE OPERATOR Pulse 68 07/16/2013 1:38 AM ELECTRICAL DISCHARGE MACHINE OPERATOR Temperature 36.8 ??C (98.3 ??F) 07/15/2013 10:[address] Respiratory Rate 16 07/16/2013 1:38 AM ELECTRICAL DISCHARGE MACHINE OPERATOR Oxygen Saturation 97% 07/16/2013 1:38 AM ELECTRICAL DISCHARGE MACHINE OPERATOR Inhaled Oxygen Concentration - - Weight 113.4 kg (250 lb) 07/15/2013 10:16 PM ELECTRICAL DISCHARGE MACHINE OPERATOR Height 167.6 cm (5' 6 ) 07/15/2013 10:16 PM ELECTRICAL DISCHARGE MACHINE OPERATOR Body Mass Index 40.35 07/15/2013 10:16 PM ELECTRICAL DISCHARGE MACHINE OPERATOR documented in this encounter Discharge Instructions * Discharge Instructions* Josiah Layton MD - 07/16/2013 1:27 AM ELECTRICAL DISCHARGE MACHINE OPERATOR You will need a repeat blood serum quantitative test in 2-3 days. Your number today was 58 which isvery low and is either consistent with a ongoing miscarriage or just a very early . Whatever your followup number will be in the next 2-3 days will determine the course of this Threatened Miscarriage Bleeding in is common. This is sometimes called a threatened miscarriage. You have been diagnosed as having a threatened miscarriage. This is a that is threatening to end before the twentieth week of . Often this bleeding stops with bed rest or decreased activities as suggested by your caregiver. You may be asked to not have sexual intercourse until further notice. Sometimes this can progress to complete or incomplete miscarriage. This may or may not require furthertreatment. When a miscarriage becomes complete and all products of conception have been passed, often no treatment is needed. If the miscarriage is incomplete (parts of the fetus or placenta remain behind), further treatment may be needed. The most common reason for further treatment is continued bleeding (hemorrhage). This often occurs if a miscarriage is incomplete. Tissue left behind may also become infected. Treatment usually is curettage. This is when the remaining products of are removed. This can be done by a simple sucking procedure (suction curettage) or a simple scraping of the inside of the uterus. This may be done in the hospital or in the caregiver's office. This is only done when your caregiver knows that there is no chance for the to proceed to term. This is determined by physical examination, negative test, and an ultrasound revealing a fetus. Miscarriages are often a very emotional time for prospective mothers. This is not you or your partners fault. It did not occur because of an inadequacy in you or your partner. Nearly all miscarriagesoccur because the has started off wrongly. At least half of these pregnancies have a chromosomal abnormality. It is almost always not inherited. Others may have developmental problems with t he fetus or placenta. This does not always show up even when the products miscarried are studied under the microscope. The miscarriage is nearly always not your fault. You can begin trying for another as soon as your caregiver says it is OK. HOME CARE INSTRUCTIONS ?? Your caregiver may order bed rest. You may only get up to the bathroom. You may be allowed to tocontinue light activity. You may need to make arrangements for the care of children and for any other responsibilities. ?? Keep track of the number of pads you use each day and how saturated (soaked) they are. Record this information. ?? DO NOT USE TAMPONS. Do not douche or have sexual intercourse until approved by your caregiver. seek immediate medical attention if: ?? You have severe cramps in your stomach, back, or abdomen. ?? You run an unexplained temperature. ?? You pass large clots or tissue. Save any tissue for your caregiver to inspect. ?? Your bleeding increases or you become light-headed, weak, or have fainting episodes. ExitCare?? Patient Information ??2006 [facility].Lumbar Radiculopathy, Sciatica Sciatica is a weakness [...] and/or unpleasant feelings in the following areas: ?? From the mid-buttock down the back of the leg to the back of the knee.. ?? And/or the outside of the calf and top of the foot.. ?? And/or behind the inner ankle to the sole of the foot.. CAUSES ?? Herniated or slipped disc. Discs are the little cushions between the bones in the back. ?? Pressure by the piriformis muscle in the buttock on the sciatic nerve (Piriformis Syndrome). ?? Misalignment of the bones in the lower back and buttocks (Sacroiliac Joint Derangement). ?? Narrowing of the spinal canal that puts pressure on or pinches the fibers that make up the sciatic nerve. ?? A slipped vertebra that is out of line with those above or beneath it (spondylolisthesis). ?? Abnormality of the nervous system itself so that nerve fibers don't transmit signals properly, especially to feet and calves (neuropathy). ?? Tumor (this is rare). Your caregiver can usually determine the cause of your sciatica and begin the treatment most likelyto help you. TREATMENT Taking [id number] painkillers, physical therapy, rest, exercise, spinal manipulation, [...] will make you comfortable. HOME CARE INSTRUCTIONS ?? If the pain is coming from a problem in the back, applying ice to that area for 15 to 20 minutes, four times per day while awake, may be helpful. Put the ice in a plastic bag. Place a towel between the bag of ice and your skin. ?? You may also apply heat to your lower back to help relieve pain. You may use a warm heating pad for 15 to 20 minutes, four times per day while awake, for 2 days or as needed. Do not sleep with a heating pad. This could cause cancino. ?? For ice and heat treatments, use whatever seems to help the most. You can also try switching between them. ?? Discontinue either the cold or heat treatments, or both, if they seem to make you worse or do not help your discomfort. ?? You may exercise or perform your usual activities if these do not aggravate your pain, or as suggested by your caregiver. ?? Take medications as directed by your caregiver. You may use acetaminophen Tylenol or ibuprofen (Advil or Motrin) as needed for pain, unless your caregiver directs otherwise. SEE YOUR CAREGIVER IMMEDIATELY IF: ?? You experience loss of control of bowel or bladder. ?? You have increasing weakness in the trunk, buttocks, or legs. ?? There is numbness in any areas from the hip down to the toes. ?? You have any of the above, with fever or forceful vomiting. ExitCare?? Patient Information ??2007 [employer]. TRICAL DISCHARGE MACHINE OPERATOR documented in this encounter Medications at Time of Discharge Medication Sig Dispensed Refills Start Date End Date methylPREDNISolone (FRANK STRAUSS,) 4 mg Tablets, Dose Pack As per [...] Anxiety. 15 Tab 0 04/15/2012 06/02/2016 methylPREDNISolone (FRANK STRAUSS,) 4 mg Oral DsPk As per package [...] of this encounter ED Notes * Viviana Jimenez RN - 07/16/2013 1:52 AM CST 3 prescriptions given. Patient discharged to home via ambulatory with steady gait with friend. Patient states no improvement. Discharge information and education provided to patient. Questions answered, understanding of discharge instruction verbalized. Printed copy given. TRICAL DISCHARGE MACHINE OPERATOR * Viviana Jimenez RN - 07/16/2013 1:42 AM CST Dilaudid given for continued pain in left leg and abdomen. Patient/family has been informed about benefits and any potential clinically significant side effects or other concerns regarding the administration of the drug they have just been given. TRICAL DISCHARGE MACHINE OPERATOR * Viviana Jimenez RN - 07/16/2013 1:05 AM CST Patient says the pain pills did not help at all. At bedside with MD Layton for transvaginal US. TRICAL DISCHARGE MACHINE OPERATOR * Lorraine Fraire RN - 07/16/2013 12:27 AM CST Patient/family has been informed about benefits and any potential clinically significant side effects or other concerns regarding the administration of the drug they have just been given. TRICAL DISCHARGE MACHINE OPERATOR * Viviana Jimenez RN - 07/15/2013 11:49 PM CST Blood obtained and urine sent to lab. Will follow. TRICAL DISCHARGE MACHINE OPERATOR * Shannan Murphy RN - 07/15/2013 11:35 PM CST Urine collected, yellow no visual blood seen. Blood collected per peripheral stick as ordered TRICAL DISCHARGE MACHINE OPERATOR * Josiah Layton MD - 07/15/2013 11:28 PM CST HISTORY OF PRESENT ILLNESS Vera Vitale, a 28 y.o. female presents to the ED with a Chief Complaint of Vaginal Bleeding HPI Comments: 11:28 PM Vera Purdy is a 28 y.o. F With known sciatica and left leg pain presents with acute onset of left sciatica and leg pain typical of prior episodes, complicated by sharp left LLQ pain, and scant vaginal bleeding (less than one pad). Had a miscarriage in 03/24 and is concerned she is miscarrying again or has an ectopic. Pt's last LMP was 2 weeks ago but has irregular menses. The history is provided by the patient and the spouse. REVIEW OF SYSTEMS Review of Systems Constitutional: Negative. Negative for activity change. HENT: Negative. Negative for congestion and neck pain. Eyes: Negative. Negative for pain. Respiratory: Negative. Negative for chest tightness. Cardiovascular: Negative. Negative for chest pain. Gastrointestinal: Positive for abdominal pain (LLQ). Negative for nausea. Genitourinary: Positive for vaginal bleeding. Musculoskeletal: Negative. +Left leg pain (known sciatica) Skin: Negative. Negative for pallor and rash. Neurological: Negative. Negative for syncope. Psychiatric/Behavioral: Negative. Negative for behavioral problems. The patient is not nervous/anxious. All other systems reviewed and are negative. PAST MEDICAL HISTORY REVIEWED MEDICAL Patient has a past medical history of Patient denies relevant medical history; MRSA (methicillin resistant Staphylococcus aureus) (08/2009); and High cholesterol. SURGICAL Patient has past surgical history that includes ear surgery; cholecystectomy; and deliveryonly (11/21/2010). FAMILY Patient's family history includes Diabetes in her brother and father; Hypertension in her mother; and Thyroid Disease in her father. SOCIAL reports that she has been smoking Cigarettes. She has a 5 pack-year smoking history. She has never used smokeless tobacco. She reports that she currently engages in sexual activity. She reports that she does not drink alcohol or use illicit drugs. PROBLEM LIST Patient has C section 11/21 and Normal (single liveborn) on her problem list. ALLERGIES Adhesive and Latex HOME MEDICATIONS Patient's Home Medications Current Home Medications DIAZEPAM (VALIUM) 5 MG ORAL TABLET DIVALPROEX SR 24 HOUR (DEPAKOTE ER) 250 MG TABLET HYDROCODONE-ACETAMINOPHEN (LORTAB) 5-500 MG ORAL TABLET HYDROCODONE-ACETAMINOPHEN (NORCO) 5-325 MG ORAL TABLET IBUPROFEN (MOTRIN) 600 MG ORAL TABLET METHYLPREDNISOLONE (MEDROL, FRANK,) 4 MG ORAL DSPK OXYCODONE-ACETAMINOPHEN (PERCOCET) 5-325 MG ORAL TABLET VIT-IRON FUMARATE-FA ( VITAMIN) 27-0.8 MG ORAL TAB VENLAFAXINE (EFFEXOR) 100 MG TABLET Medications Modified during this Encounter Medications Discontinued during this Encounter PHYSICAL EXAM INITIAL VS BP: 160/96 mmHg (07/15/132215), Heart Rate (Monitored): 107 bpm (07/15/132215), Resp: 18 (07/15/132215), Temp: 98.3 ??F (36.8 ??C) (07/15/132215), Temp src: Oral (07/15/132215), SpO2: 100 % (07/15/132215), Height: 5' 6 (167.6 cm) (07/15/132215), Weight: 113.399 kg (07/15/132215), BMI (Calculated): 40.44 (07/15/132215) Physical Exam Nursing note and vitals reviewed. [...] There is no tenderness. Thereis no guarding. Genitourinary: Normal external vaginal exam. Speculum exam shows minimal amount of bleeding closed os. There is nolesions or POC in the vaginal vault Musculoskeletal: Normal range of motion. She exhibits no edema. Lymphadenopathy: She has no cervical adenopathy. Neurological: She is alert and oriented to person, place, and time. She has normal reflexes. No cranial nerve deficit. Skin: Skin is warm and dry. No rash noted. Psychiatric: She has a normal mood and affect. Her behavior is normal. Judgment and thought contentnormal. DIAGNOSTICS LAB: Results for orders placed during the hospital encounter of 07/15/13 (from the past 24 hour(s)) URINALYSIS WITH REFLEX CULTURE Result Value Range URINE CULTURE ORDER Culture ordered URINALYSIS Result Value Range COLOR UA Pale Yellow CLARITY UA Clear Clear SPECIFIC GRAVITY UA 1.009 1.001 - 1.035 PH UA 5.0 5.0 - 8.0 LEUKOCYTE ESTERASE UA Trace (*) Negative NITRITE UA Negative Negative PROTEIN UA Negative Negative GLUCOSE UA Negative Negative KETONES UA Negative Negative UROBILINOGEN UA <1 <=1 mg/dL BILIRUBIN UA Negative Negative BLOOD UA 3+ (*) Negative WBC URINE 4 0 - 5 /HPF RBC, URINE 86 (*) 0 - 4 /HPF BACTERIA UA 1+ (*) None Seen /HPF EPITHELIAL CELLS, URINE 2-5 CBC WITH DIFFERENTIAL Result Value Range WBC 9.7 4.0 - 9.8 K/uL RBC 5.30 (*) 3.90 - 4.90 M/uL HEMOGLOBIN 15.7 (*) 11.8 - 14.8 g/dL HEMATOCRIT 44.9 (*) 35.5 - 44.0 % MCV 84.7 82.0 - 99.0 fL MCH 29.6 27.2 - 32.6 pg MCHC 35.0 31.5 - 35.5 % PLATELETS 273 140 - 350 K/uL MPV 9.0 (*) 9.3 - 12.4 fL RDW 13.9 11.5 - 14.5 % RDW-STDEV 42.5 37.1 - 48.7 fL NEUTROPHILS 61 45 - 70 % LYMPHOCYTES 33 16 - 45 % MONOCYTES 5 3 - 13 % EOSINOPHILS 1 0 - 7 % BASOPHILS 0 0 - 2 % NEUTROPHIL ABSOLUTE 5.86 1.90 - 7.00 K/uL LYMPHOCYTE ABSOLUTE 3.18 0.70 - 4.50 K/uL MONOCYTE ABSOLUTE 0.48 0.10 - 1.30 K/uL EOSINOPHIL ABSOLUTE 0.13 0.00 - 0.70 K/uL BASOPHILS ABSOLUTE 0.02 0.00 - 0.20 K/uL HCG QUANTITATIVE, BLOOD Result Value Range HCG QUANT, BLOOD 58 (*) 0 - 5 mIU/mL RADIOLOGY: EKG: PROCEDURES Procedures Bedside transvaginal ultrasound shows a normal uterus with no visible GS or YS. Her right ovary is 2.5 cm a normal left ovary is 2.3 cm and normal there is trace amounts of physiologic fluid in the pouch of Lavell uterus otherwise appears normal the bladder appears normal there is no obvious cystsor masses on her exam. MEDICAL DECISION MAKING AND PLAN OF CARE 28-year-old female with chronic sciatica left leg pain and back pain presents with acute worsening of her left leg and foot consistent with prior sciatica but also with acute left lower quadrant abdominal pain. Her abdominal exam is completely benign however she points to a explosion in her left lower quadrant. She also had scant bleeding less than one pad today. She has irregular menses. Patient is very concerned that because she had a prior miscarriage when she was unaware of her that this is yet another with a possible miscarriage or ectopic . Plan patient is to check a urine check Quant and a baseline CBC. She will also need a pelvic exam and ultrasound to evaluate for ovarian cysts. Patient takes chronic narcotics at night for her pain and will be given her usual pain medication for her sciatica REEVALUATION 1:05 AM: Pelvic exam and bedside US at this time. CASE DISCUSSED 1:30 AM spoke at length with patient regarding her diagnosis. She has baseline tach of her left leghowever she does have some bleeding and spotting in the setting of a newly diagnosed . Shedid not have an ectopic a year ago she had a miscarriage a year ago. She has the same symptoms and is concerned that she is again miscarrying. I explained to her that because her Quant is only 58 is impossible to visualize anything either in or outside of her uterus at this time. A repeat quantitative 2-3 days would determine whether this is a early viable or a inevitable AB Medications Administered During the ED Stay from 07/15/20132206 to 07/16/2013130 Date/Time Order Dose Route Action 07/16/201325 oxyCODONE-acetaminophen (PERCOCET) 5-325 mg per tablet 2 Tab 2 Tab Oral Given . New Prescriptions for this Encounter GABAPENTIN (NEURONTIN) 300 MG CAPSULE Take 1 Cap by mouth 3 times daily. METHYLPREDNISOLONE (MEDROL, FRANK,) 4 MG TABLETS, DOSE PACK As per packet insert LAST VITALS BP: 126/69 mmHg (07/16/1325), Heart Rate (Monitored): 107 bpm (07/15/132215), Resp: 16 (07/16/1325), Temp: 98.3 ??F (36.8 ??C) (07/15/132215), Temp src: Oral (07/15/132215), SpO2: 97 % (07/16/1325) CLINICAL IMPRESSION Final diagnoses: Threatened miscarriage Sciatica CODING MDM Coding Reviewed: nursing note, vitals and previous chart Interpretation: SP02 and labs DISPOSITION, EDUCATION AND MEDICATION RECONCILIATION Medications reconciled. See after visit summary for patient education on discharged patients. This note has been prepared by Matthieu Marley acting as a scribe for Dr. Layton. The scribe's documentation has been prepared under my direction and personally reviewed by me in its entirety. I confirm that the note above accurately reflects all work, treatment, procedures, and medical decision making performed by me. TRICAL DISCHARGE MACHINE OPERATOR * Viviana Jimenez RN - 07/15/2013 11:01 PM CST Patient to ED12 with complaints of vaginal bleeding. She has a history of ectopic last year. She said it feels the same as last year. The pain starts in her left leg. She also felt an exploding sensation in her abdomen. She says she has had 4 miscarriages in the past. Patient says the pain is 7/10 at this time. Requested urine, will follow. TRICAL DISCHARGE MACHINE OPERATOR documented in this encounter Plan of Treatment Upcoming Encounters Date Type Department Care Team (Late st Contact Info) Description 10/14/2024 11:00 AM ELECTRICAL DISCHARGE MACHINE OPERATOR Office Visit [facility] Oncology and Hematology - [place] [address] [facility] [address] [place] [address] Ubaldo Cardenas MD [address] [facility] [address] [place] [address] documented as of this encounter Procedures Procedure Name Priority Date/Time Associated Diagnosis Comments CBC WITH DIFFERENTIAL Stat 07/15/2013 11:40 PM ELECTRICAL DISCHARGE MACHINE OPERATOR HCG QUANTITATIVE, BLOOD Stat 07/15/2013 11:40 PM ELECTRICAL DISCHARGE MACHINE OPERATOR URINALYSIS WITH REFLEX CULTURE Stat 07/15/2013 11:24 PM ELECTRICAL DISCHARGE MACHINE OPERATOR URINALYSIS W/REFLEX MICROSCOPIC Stat 07/15/2013 11:24 PM ELECTRICAL DISCHARGE MACHINE OPERATOR URINE CULTURE Stat 07/15/2013 11:24 PM ELECTRICAL DISCHARGE MACHINE OPERATOR documented in this encounter Results * (ABNORMAL) HCG QUANTITATIVE, BLOOD (07/15/2013 11:40 PM ELECTRICAL DISCHARGE MACHINE OPERATOR) HCG QUANT, BLOOD 58(H) 0 - 5 mIU/mL [facility] Comment: Result of 5 - 25 mIU/mL is indeterminant for , repeat of test recommemded in 48 hours. Reference Range: Gestational Age: 3 ??Weeks ?5.8 - 71.2 ?mIU/mL 4 ??Weeks ?9.5 - 750 ? mIU/mL 5 ??Weeks ?217 - 7138 ?mIU/mL 6 ??Weeks ?158 - 31,795 ?mIU/mL [...] with other clinical evidence. Blood specimen (specimen) 07/15/2013 11:40 PM ELECTRICAL DISCHARGE MACHINE OPERATOR 07/15/2013 11:52 PM ELECTRICAL DISCHARGE MACHINE OPERATOR Josiah Layton MD CHEMISTRY ORDERABLES [facility] CLIA# [id number] [address] [place] [address] * (ABNORMAL) CBC WITH DIFFERENTIAL (07/15/2013 11:40 PM ELECTRICAL DISCHARGE MACHINE OPERATOR) Pathologist [facility] WBC 9.7 4.0 - 9.8 K/uL [facility] RBC 5.30(H) 3.90 - 4.90 M/uL [facility] HEMOGLOBIN 15.7(H) 11.8 - 14.8 g/dL [facility] HEMATOCRIT 44.9(H) 35.5 - 44.0 % [facility] MCV 84.7 82.0 - 99.0 [facility] LABORATORY SERVICES [facility] MCH 29.6 27.2 - 32.6 pg [facility] MCHC 35.0 31.5 - 35.5 % [facility] PLATELETS 273 140 - 350 K/uL [facility] MPV 9.0(L) 9.3 - 12.4 [facility] LABORATORY SERVICES [facility] RDW 13.9 11.5 - 14.5 % [facility] RDW-STDEV 42.5 37.1 - 48.7 [facility] LABORATORY SERVICES [facility] NEUTROPHILS 61 45 - 70 % [facility] LYMPHOCYTES 33 16 - 45 % [facility] SERVICES [facility] MONOCYTES 5 3 - 13 % [facility] EOSINOPHILS 1 0 - 7 % [facility] BASOPHILS 0 0 - 2 % [facility] LABORATORY SERVICES [facility] NEUTROPHIL ABSOLUTE 5.86 1.90 - 7.00 K/uL [facility] SERVICES [facility] LYMPHOCYTE ABSOLUTE 3.18 0.70 - 4.50 K/uL [facility] SERVICES [facility] MONOCYTE ABSOLUTE 0.48 0.10 - 1.30 K/uL [facility] EOSINOPHIL ABSOLUTE 0.13 0.00 - 0.70 K/uL [facility] BASOPHILS ABSOLUTE 0.02 0.00 - 0.20 K/uL [facility] Blood specimen (specimen) 07/15/2013 11:40 PM ELECTRICAL DISCHARGE MACHINE OPERATOR 07/15/2013 11:52 PM ELECTRICAL DISCHARGE MACHINE OPERATOR Josiah Layton MD HEMATOLOGY ORDERABLE S [facility] CLIA# [id number] [address] [place] [address] * URINE CULTURE (07/15/2013 11:24 PM ELECTRICAL DISCHARGE MACHINE OPERATOR) FINAL MICRO REPORT Polymicrobial growth present consistent with urethral stephanie and/or colonizing bacteria. [facility] - [facility] 07/15/2013 11:2 4 PM ELECTRICAL DISCHARGE MACHINE OPERATOR 07/16/2013 1:16 AM ELECTRICAL DISCHARGE MACHINE OPERATOR Comment:URINE VOIDED Josiah Layton MD MICROBIOLOGY - GENER AL ORDERABLES [facility] - [facility] CLIA# [id number] [address] [place] [address] * (ABNORMAL) URINALYSIS (07/15/2013 11:24 PM ELECTRICAL DISCHARGE MACHINE OPERATOR) COLOR UA Pale Yellow [facility] - . [facility] CLARITY UA Clear Clear [facility] - [facility] SPECIFIC GRAVITY UA 1.009 1.001 - 1.035 [facility] - . [facility] PH UA 5.0 5.0 - 8.0 [facility] - . [facility] LEUKOCYTE ESTERASE UA Trace(A) Negative [facility] - . [facility] NITRITE UA Negative Negative [facility] - [facility] [facility] PROTEIN UA Negative Negative [facility] - . [facility] GLUCOSE UA Negative Negative [facility] . [facility] KETONES UA Negative Negative [facility] UROBILINOGEN UA <1 <=1 mg/dL [facility] BILIRUBIN UA Negative Negative [facility] . [facility] BLOOD UA 3+(A) Negative [facility] . [facility] WBC URINE 4 0 - 5 /HPF [facility] . [facility] RBC, URINE 86(H) 0 - 4 /HPF [facility] BACTERIA UA 1+(A) None Seen /HPF [facility] EPITHELIAL CELLS, URINE 2-5 /HPF [facility] 07/15/2013 11:2 4 PM ELECTRICAL DISCHARGE MACHINE OPERATOR 07/15/2013 11:52 PM ELECTRICAL DISCHARGE MACHINE OPERATOR Comment:URINE VOIDED Josiah Layton MD URINE ORDERABLES [facility] - [facility] CLIA# [id number] [address] [place] [address] * URINALYSIS WITH REFLEX CULTURE (07/15/2013 11:24 PM ELECTRICAL DISCHARGE MACHINE OPERATOR) URINE CULTURE ORDER Culture ordered [facility] Comment: Criteria for a reflex culture include one or more of the following: ??Abnormal nitrite, leukocyte esterase, WBCs or RBCs. ??Lack of qualifying criteria does not exclude the possiblity of a urinary tract infection. ??Dilute urine, drug interference, etc. may decrease the sensitivity of the criteria analytes. Urine specimen (specimen) 07/15/2013 11:24 PM ELECTRICAL DISCHARGE MACHINE OPERATOR 07/15/2013 11:52 PM ELECTRICAL DISCHARGE MACHINE OPERATOR Comment:URINE VOIDED Josiah Layton MD URINE ORDERABLES [facility]# [id number] [address] [place] [address] documented in this encounter Visit Diagnoses Diagnosis Threatened miscarriage- Primary Threatened , unspecified as to episode of care Sciatica documented in this encounter Administered Medications Inactive Administered Medications - up to 3 most recent administrations Medication Order MAR Action Action Date Dose Rate Site hydromorPHONE (DILAUDID) 1 mg/mL injection 2 mg 2 mg, IM, ONE TIME ONLY, 1 dose, On Sun07/16/13 at 0130, Routine Given 07/16/2013 1:40 AM ELECTRICAL DISCHARGE MACHINE OPERATOR 2 mg Righ t Arm oxyCODONE-acetaminophen (PERCOCET) 5-325 mg per tablet 2 Tab 2 Tablet, Oral, ONE TIME ONLY, 1 dose, On Sun07/16/13 at 0030, Routine Given 07/16/2013 12:26 AM ELECTRICAL DISCHARGE MACHINE OPERATOR 2 Tablets OXYCODONE-ACETAMINOPHEN 5 MG-325 MG TABLET 1 dose, Starting on Sun07/16/13 at 0024, Until Sun07/16/13 at 0026, Juno WOLFF: cabinet override documented in this encounter Active and Recently Administered Medications Times are shown in ELECTRICAL DISCHARGE MACHINE OPERATOR. Scheduled Medication Order 07/14/2013 07/15/2013 07/16/2013 hydromorPHONE (DILAUDID) 1 mg/mL injection 2 mg (COMPLETED) 2 mg, IM, ONE TIME ONLY, 1 dose, On Sun07/16/13 at 0130, Routine 0140 (Given - Provid er: Viviana Jimenez RN) oxyCODONE-acetaminophen (PERCOCET) 5-325 mg per tablet 2 Tab (COMPLETED) 2 Tablet, Oral, ONE TIME ONLY, 1 dose, On Sun07/16/13 at 0030, Routine 0026 (Given - Provid er: Lorraine Fraire RN) documented in this encounter Care Teams Business Systems Advisor Relationship Specialty Start Date End Date Hilda Eden FNP [address] [place] [id number] PCP - General NURSE PRACTITIONER 07/13/13 01/05/18 documented as of this encounter
--- OUTSIDE RECORDS SUMMARY | 2024-08-03 01:42 | XMS_ITS | Encounter Summary ---
Author Organization [facility] Address [address] [place] [address] Care Team Providers Care Cash Applications Manager Name Role Phone Hilda Eden SIDEWALK REPAIRER Primary Care Provider [phone] Reason for Visit * Reason Comments Threatened Miscarriage pt started having vaginal bleeding since Sunday with left leg pain. Pt states, this is my 6th miscarriage. The tests always come up negative, but I am always . last MP=02/24. pt had D&C on 01/14 * Auth/Cert Specialty Diagnoses / Procedures Referred By Reva holbrook Referred To Contact Emergency Medicine [facility] Emergency Dept [address] [place] [address] Referral ID Status Reason Start Date Expiration Date Visits Re quested Visits Authorized [id number] 1 1 Encounter Details Date Type Department Care Team (Late st Contact Info) Description 04/04/2014 8:40 PM CDT - 04/04/2014 11:19 PM CDT Emergency [facility] Emergency Department [address] [place] [address] Luis Palma MD [address] [place] [address] Vaginal bleeding (Primary Dx) Discharge Disposition: Home or Self [...] Sign Reading Time Taken Comments Blood Pressure 129/64 04/04/2014 10:36 PM CDT Pulse 83 04/04/2014 10:36 PM CDT Temperature 36.7 ??C (98.1 ??F) 04/04/2014 8:26 PM CD T Respiratory Rate 18 04/04/2014 10:36 PM CDT Oxygen Saturation 99% 04/04/2014 10:36 PM CDT Inhaled Oxygen Concentration - - Weight 113.4 kg (250 lb) 04/04/2014 8:26 PM CDT Height 167.6 cm (5' 6 ) 04/04/2014 8:26 PM CDT Body Mass Index 40.35 04/04/2014 8:26 PM CDT documented in this encounter Discharge Instructions * Attachments The following attachments cannot be sent through Care Everywhere. * VAGINAL BLEEDING (ARMENIAN) documented in this encounter Medications at Time of Discharge Medication Sig Dispensed Refills Start Date End Date oxyCODONE-acetaminophen (PERCOCET) 7.5-325 mg Tablet Take 1 Tab by mouth every 4 hours as needed for Pain, Moderate. 08/07/2015 amitriptyline (ELAVIL) 50 mg tablet Take 100 mg by mouth daily at bedtime . 06/02/2016 nortriptyline (PAMELOR) 75 mg capsule Take 75 mg by mouth daily at bedtime. 06/02/2016 CYANOCOBALAMIN/FA/PYRID OXINE (FABB ORAL) Take by mouth daily. aspirin (KESHA CHEWABLE) 81 mg Tablet, Chewable Take 81 mg by mouth daily. 08/07/2015 methylPREDNISolone (MEDROL, FRANK,) 4 mg Tablets, Dose [...] as of this encounter ED Notes * Jackie Black RN - 04/04/2014 11:18 PM CDT Patient discharged to home via ambulatory with steady gait with self. Patient states feeling better. Discharge information and education provided to patient. Questions answered, understanding of discharge instruction verbalized. Printed copy given. ED nurse and ED provider verbally discussed patient plan of care at this time. Report decrease in left leg pain. * Jackie Black RN - 04/04/2014 10:41 PM CDT Toradol given. Patient/family has been informed about benefits and any potential clinically significant side effects or other concerns regarding the administration of the drug they have just been given. Left leg pain is currently 8/10. VSS as charted. Remains in NAD. Will monitor. * Dimple Purdy RN - 04/04/2014 10:03 PM CDT complete with pelvic exam at this time. Pt tolerated well. S/P exam pt states usually the otherER doctor gives me something for the leg pain and it helps me sleep . Pt currently rating pain 7/10on pain scale -- MD aware -- awaiting orders. * Dimple Purdy RN - 04/04/2014 9:59 PM CDT MD Palma and this RN to BS for pelvic exam. * Jackie Black RN - 04/04/2014 8:49 PM CDT Pt here for possible miscarriage and vaginal bleeding that began yesterday; +mild abd pain. LMP wasJuly 15. Pt sts w/ each miscarriage she presents the same including having a normal period , then bleeding 2 weeks later, left leg pain. PMH of 5 miscarriages in past; D/C on January 14. Pt sees fertility specialist. . Pt currently takes VitB injections for fertility. Denies ANAND, back pain, urinaryissues, cp, sob, fever, other s/s. Aox4. RR even and non-labored. Skin PWD. Will monitor. * Jackie Black RN - 04/04/2014 8:[address] Palma at bedside. * Luis Palma MD - 04/04/2014 8:48 PM CDT HISTORY OF PRESENT ILLNESS Vera Vitale, a 28 y.o. female presents to the ED with a Chief Complaint of Threatened Miscarriage HPI Comments: Provider at patient's bedside at 8:49 PM Vera Vitale is a 28 y.o. Female (G1?) s/p D&C January 14, 2014 with a history of miscarriages who presents to the Emergency Department complaining of vaginal bleeding which began yesterday with associated abd pain. Patient reports her last normal menstrual period was February 24. She states shehas a hx of miscarriages and they all present in the way she is presenting now. She states typically she begins bleeding like a menstrual cycle. Then two weeks later she will have another episode of menstrual like bleeding. She notes this is when the miscarriage is occurring and she typically gets pain down her L leg. At this time she notes she is having the pain down her L leg and is concerned this is a miscarriage. She notes her tests have never shown up on urine tests, and she is not completely sure that she is at this time, though she is trying to get . She is seeing a doctor at a fertility clinic and is currently on Vitamin B folic acid. She denies any CP, SOB, ANAND, or any other sx's at this time. OB: Dr. Dhillon. The history is provided by the patient. No multi disciplined language analyst was used. The patient arrived by private vehicle. The patient arrived from home. REVIEW OF SYSTEMS Review of Systems Constitutional: Negative for fever. HENT: Negative for neck pain. Eyes: Negative for redness. Respiratory: Negative for cough. Cardiovascular: Negative for chest pain. Gastrointestinal: Positive for abdominal pain. Genitourinary: Positive for vaginal bleeding. Negative for frequency. Musculoskeletal: Negative for back pain. +L leg pain. Skin: Negative for rash. Neurological: Negative for headaches. Hematological: Does not bruise/bleed easily. Psychiatric/Behavioral: Negative for dysphoric mood. All other systems reviewed and are negative. PAST MEDICAL HISTORY REVIEWED MEDICAL Patient has a past medical history of MRSA (methicillin resistant Staphylococcus aureus) (08/2009);High cholesterol; Anxiety; and Depression. SURGICAL Patient has past surgical history that includes ear surgery; cholecystectomy; delivery only (11/21/2010); and hchg dilitation and curettage (01/14/2014). FAMILY Patient's family history includes Diabetes in her brother and father; Hypertension in her mother; and Thyroid Disease in her father. SOCIAL reports that she has been smoking Cigarettes. She has a 5 pack-year smoking history. She has never used smokeless tobacco. She reports that she currently engages in sexual activity. She reports usingthe following method of control/protection: None. She reports that she does not drink alcoholor use illicit drugs. PROBLEM LIST Patient has C section 11/21 and Normal (single liveborn) on her problem list. ALLERGIES Adhesive and Latex HOME MEDICATIONS Discharge Medication List as of 04/04/2014 11:06 PM CONTINUE these medications which have NOT CHANGED Details oxyCODONE-acetaminophen (PERCOCET) 7.5-325 mg Tablet Take 1 Tab by mouth every 4 hours as needed for Pain, Moderate. amitriptyline (ELAVIL) 50 mg tablet Take 50 mg by mouth daily at bedtime. nortriptyline (PAMELOR) 75 mg capsule Take 75 mg by mouth daily at bedtime. CYANOCOBALAMIN/FA/PYRIDOXINE (FABB ORAL) Take by mouth daily. aspirin (KESHA CHEWABLE) 81 mg Tablet, Chewable Take 81 mg by mouth daily. !! methylPREDNISolone (MEDROL, FRANK,) 4 mg Tablets, Dose Pack As per packet insert, Disp-1 Package, R-None gabapentin (NEURONTIN) 300 mg capsule Take 1 Cap by mouth 3 times daily., Disp- 20 Cap, R-0 divalproex SR 24 hour (DEPAKOTE ER) 250 mg tablet Take 750 mg by mouth 3 times daily. venlafaxine (EFFEXOR) 100 mg tablet Take 100 mg by mouth 3 times daily. oxyCODONE-acetaminophen (PERCOCET) 5-325 mg Oral tablet Take 1-2 Tabs by mouth every 6 hours as needed for Pain, Moderate., Disp-20 Tab, R-None diazepam (VALIUM) 5 mg Oral tablet Take 1 Tab by mouth every 8 hours as needed for Anxiety., Disp-15 Tab, R-0 !! methylPREDNISolone (MEDROL, FRANK,) 4 mg Oral DsPk As per package insert, Disp- 1 Package, R-None HYDROcodone-acetaminophen (LORTAB) 5-500 mg Oral tablet Take 1 Tab by mouth every 4 hours as neededfor Pain., Disp-20 Tab, R-None ibuprofen (MOTRIN) 600 mg Oral tablet Take 1 Tab by mouth every 6 hours as needed for Pain., Disp-60 Tab, R-1 HYDROcodone-acetaminophen (NORCO) 5-325 mg Oral tablet Take 1 Tab by mouth every 4 hours as needed., Disp-50 Tab, R-0 vit-iron fumarate-FA ( VITAMIN) 27-0.8 mg Oral Tab Take 1 Tab by mouth daily. !! - Potential duplicate medications found. Please discuss with provider. PHYSICAL EXAM INITIAL VS BP: 134/89 mmHg (04/04/142025), Heart Rate (Monitored): 96 bpm (04/04/142025), Resp: 17 (), Temp: 98.1 ??F (36.7 ??C) (04/04/142025), Temp src: Oral (04/04/142025), SpO2: 100 % (04/04/142025), Height: 5' 6 (167.6 cm) (04/04/142025), Weight: 113.399 kg (04/04/142025), BMI (Calculated): 40.44 (04/04/142025) Patient's last menstrual period was 02/24/2014. Physical Exam Nursing note and vitals reviewed. Constitutional: She appears well-developed and well-nourished. No distress. HENT: Head: Normocephalic. Eyes: Conjunctivae and lids are normal. Neck: Neck supple. Cardiovascular: Normal rate and regular rhythm. Pulmonary/Chest: Effort normal and breath sounds normal. No accessory muscle usage. She has no decreased breath sounds. She has no rhonchi. Abdominal: Soft. Bowel sounds are normal. There is no tenderness. Genitourinary: Transvaginal US: Blood in vaginal vault. Os is closed. No cervical motion tenderness. Bimanual examlimited due to obesity. Musculoskeletal: Normal range of motion. Neurological: She is alert. She has normal strength. No sensory deficit. Skin: Skin is warm and dry. Psychiatric: She has a normal mood and affect. DIAGNOSTICS LAB: Results for orders placed during the hospital encounter of 04/04/14 (from the past 24 hour(s)) POC , URINE Result Value Range POC , URINE Negative Negative SPECIFIC GRAVITY UA 1.005 1.001 - 1.030 CLIA LICENSE [id number] HCG QUAL URINE COMMENT See Below POC , URINE Result Value Range POC , URINE Negative Negative SPECIFIC GRAVITY UA 1.005 1.001 - 1.030 CLIA LICENSE [id number] HCG QUAL URINE COMMENT See Below RADIOLOGY: EKG: PROCEDURES Procedures MEDICAL DECISION MAKING AND PLAN OF CARE Vag bleeding. hcg negative. rec f/u with her obgyn. REEVALUATION CASE DISCUSSED Medications Administered During the ED Stay from 04/04/20142021 to 04/05/2014 0107 Date/Time Order Dose Route Action 04/04/20142235 ketorolac (TORADOL) injection 60 mg 60 mg IM Given Discharge Medication List as of 04/04/2014 11:06 PM CONTINUE these medications which have NOT CHANGED Details oxyCODONE-acetaminophen (PERCOCET) 7.5-325 mg Tablet Take 1 Tab by mouth every 4 hours as needed for Pain, Moderate. amitriptyline (ELAVIL) 50 mg tablet Take 50 mg by mouth daily at bedtime. nortriptyline (PAMELOR) 75 mg capsule Take 75 mg by mouth daily at bedtime. CYANOCOBALAMIN/FA/PYRIDOXINE (FABB ORAL) Take by mouth daily. aspirin (KESHA CHEWABLE) 81 mg Tablet, Chewable Take 81 mg by mouth daily. !! methylPREDNISolone (MEDROL, FRANK,) 4 mg Tablets, Dose Pack As per packet insert, Disp-1 Package, R-None gabapentin (NEURONTIN) 300 mg capsule Take 1 Cap by mouth 3 times daily., Disp- 20 Cap, R-0 divalproex SR 24 hour (DEPAKOTE ER) 250 mg tablet Take 750 mg by mouth 3 times daily. venlafaxine (EFFEXOR) 100 mg tablet Take 100 mg by mouth 3 times daily. oxyCODONE-acetaminophen (PERCOCET) 5-325 mg Oral tablet Take 1-2 Tabs by mouth every 6 hours as needed for Pain, Moderate., Disp-20 Tab, R-None diazepam (VALIUM) 5 mg Oral tablet Take 1 Tab by mouth every 8 hours as needed for Anxiety., Disp-15 Tab, R-0 !! methylPREDNISolone (MEDROL, FRANK,) 4 mg Oral DsPk As per package insert, Disp- 1 Package, R-None HYDROcodone-acetaminophen (LORTAB) 5-500 mg Oral tablet Take 1 Tab by mouth every 4 hours as neededfor Pain., Disp-20 Tab, R-None ibuprofen (MOTRIN) 600 mg Oral tablet Take 1 Tab by mouth every 6 hours as needed for Pain., Disp-60 Tab, R-1 HYDROcodone-acetaminophen (NORCO) 5-325 mg Oral tablet Take 1 Tab by mouth every 4 hours as needed., Disp-50 Tab, R-0 vit-iron fumarate-FA ( VITAMIN) 27-0.8 mg Oral Tab Take 1 Tab by mouth daily. !! - Potential duplicate medications found. Please discuss with provider. LAST VITALS BP: 129/64 mmHg (04/04/142235), Heart Rate (Monitored): 96 bpm (04/04/142025), Resp: 18 (), Temp: 98.1 ??F (36.7 ??C) (04/04/142025), Temp src: Oral (04/04/142025), SpO2: 99 % (04/04/142235) CLINICAL IMPRESSION Final diagnoses: Vaginal bleeding CODING MDM Coding Reviewed: previous chart, nursing note and vitals Interpretation: labs and SP02 DISPOSITION, EDUCATION AND MEDICATION RECONCILIATION Medications reconciled. See after visit summary for patient education on discharged patients. This note has been prepared by Willis Stubbs acting as a scribe for Dr. Luis Palma. The scribe's documentation has been prepared under my direction and personally reviewed by me in its entirety. I confirm that the note above accurately reflects all work, treatment, procedures, and medical decision making performed by me. documented in this encounter Plan of Treatment Upcoming Encounters Date Type Department Care Team (Late st Contact Info) Description 10/14/2024 11:00 AM CENTRIFUGAL EXTRACTOR OPERATOR Office Visit [facility] Oncology and Hematology - [place] [address] [place] [address] Ubaldo Cardenas MD [address] [place] [address] documented as of this encounter Procedures Procedure Name Priority Date/Time Associated Diagnosis Comments POC , URINE Routine 04/04/2014 9:03 PM CDT POC , URINE Routine 04/04/2014 9:00 PM CDT documented in this encounter Results * POC , URINE (04/04/2014 9:03 PM CDT) , URINE POC Negative Negative INTERFACE SYSTEM Comment:answered twice; pt c redited SPECIFIC GRAVITY UA 1.005 1.001 - 1.030 INTERFACE SYSTEM CLIA LICENSE [id number] INTERF GERBER SYSTEM HCG QUAL URINE COMMENT See Below INTERFACE SYSTEM Comment:Urine resu lts may be falsely negative due to low specific gravity Urine 04/04/2014 9:03 PM CDT 04/04/2014 9:03 PM CDT Comment:URINE Luis Palma MD POINT OF CARE TESTIVANA Gonzalez Performing Organization Address [facility] de Phone Number INTERFACE SYSTEM Refer to clinic/hospital department * POC , URINE (04/04/2014 9:00 PM CDT) , URINE POC Negative Negative INTERFACE SYSTEM SPECIFIC GRAVITY UA 1.005 1.001 - 1.030 INTERFACE SYSTEM CLIA LICENSE [id number] INTERF GERBER SYSTEM HCG QUAL URINE COMMENT See Below INTERFACE SYSTEM Comment:Urine resu lts may be falsely negative due to low specific gravity Urine 04/04/2014 9:00 PM CDT 04/04/2014 9:00 PM CDT Comment:URINE Luis Palma MD POINT OF CARE TESTIVANA Gonzalez Performing Organization Address [facility] Co de Phone Number INTERFACE SYSTEM Refer to clinic/hospital department documented in this encounter Visit Diagnoses Diagnosis Vaginal bleeding- Primary Other specified noninflammatory disorder of vagina documented in this encounter Administered Medications Inactive Administered Medications - up to 3 most recent administrations Medication Order MAR Action Action Date Dose Rate Site ketorolac (TORADOL) injection 60 mg 60 mg, IM, ONE TIME ONLY, 1 dose, On 04/04/14 at 2230, Stat Given 04/04/2014 10:36 PM CDT 60 mg Arm, Left Upper documented in this encounter Active and Recently Administered Medications Times are shown in CDT. Scheduled Medication Order 04/02/2014 04/03/2014 04/04/2014 ketorolac (TORADOL) injection 60 mg (COMPLETED) 60 mg, IM, ONE TIME ONLY, 1 dose, On 04/04/14 at 2230, Stat 2236 (Given - Provid er: Jackie Black RN) documented in this encounter Care Teams Cash Applications Manager Relationship Specialty Start Date End Date Hilda Eden FNP [address] [place] [address] PCP - General NURSE PRACTITIONER 07/13/13 01/05/18 documented as of this encounter
--- OUTSIDE RECORDS SUMMARY | 2024-08-03 01:42 | XMS_ITS | Encounter Summary ---
Author Organization [facility] Address [address] [place] [address] Care Team Providers Care Packer Inspector Name Role Phone Hilda Eden RADHA Primary Care Provider [phone] Reason for Visit * Auth/Cert Specialty Diagnoses / Procedures Referred By Reva holbrook Referred To Contact Obstetrics Diagnoses REPEAT EDC 10/[address] [facility] Ob Triage [address] [place] [address] Referral ID Status Reason Start Date Expiration Date Visits Re quested Visits Authorized [id number] 06/02/2016 07/03/2017 1 Encounter Details Date Type Department Care Team (Latest Contact Info) Description 06/02/2016 11:34 AM CDT - 06/02/2016 1:56 PM CDT Hospital Encounter [facility] OB Triage [address] [place] [address] [place] [address] [place] [address] Feeling pelvic pressure during in second trimester, antepartum Discharge Disposition: Home or Self Care Social [...] Sign Reading Time Taken Comments Blood Pressure 128/71 06/02/2016 12:24 PM CDT Pulse 88 06/02/2016 12:00 PM CDT Temperature 36.9 ??C (98.4 ??F) 06/02/2016 12:00 PM C DT Respiratory Rate 20 06/02/2016 12:00 PM CDT Oxygen Saturation - - Inhaled Oxygen Concentration - - Weight 112.5 kg (248 lb) 06/02/2016 12:00 PM CDT Height 167.6 cm (5' 6 ) 06/02/2016 12:00 PM CDT Body Mass Index 40.03 06/02/2016 12:00 PM CDT documented in this encounter Discharge Instructions * Discharge Instructions* Tricia Dalal RN - 06/02/2016 1:53 PM CDT Return to Labor and Delivery or notify your physician regarding: Contractions: more than 6-8 in one hour, increasing in intensity. Vaginal Bleeding: A small amount of spotting [...] of face, hands, or feet. Additional Instructions: Keep next scheduled appointment. Activity: Your activity level is no restrictions. If you smoke you are advised to quit. Ask your health care provider for advice if you need assistance to stop smoking. Avoid second-hand smoke exposure and do not let people smoke in your home. Diet: Your diet is regular. Drink plenty of fluids, especially water, at least 8-10 glasses per day. * Attachments The following attachments cannot be sent through Care Everywhere. * LABOR (JAPANESE) * : LAURA KAUR CONTRACTIONS (JAPANESE) documented in this encounter Medications at Time [...] as of this encounter Progress Notes * Tricia Dalal RN - 06/02/2016 1:56 PM CDT Discharge instructions given to patient, both verbally and written. Questions answered, verbalized understanding. Sent home via ambulation, stable condition. * Tricia Dalal RN - 06/02/2016 12:30 PM CDT Admitted to OB triage with complaints of lower abdominal cramping and pressure. Denies vaginal bleeding. States she believes she lost her mucous plug. Patient states she has felt FM. FHR dopplered [id number]. EPIC admission complete. Yin Grant CNM aware. 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 @ 21w6d, who presents with complaints of increased pelvic pressure since yesterday. Pt has a history of many losses and was concerned for well being of this . Pt states she usually is resting at home, but yesterday she went on a field trip with her son [facility] [place] [facility]. Thinks she may have lost some mucus, which she perceives to be her mucus plug. Pt did admit she did have intercourse within the last couple of days also. C/o heaviness with standing. Rates it a 3-4 on 1- 10 scale. It is much improved when she is resting in bed. Her has been uncomplicated. Contractions: Denies. Vaginal bleeding: Denies. Leakage of fluid: Denies. States she is feeling lots of movement. Denies UTI s/s. ROS: Comprehensive ROS done. Pertinent positives noted above. All others neg. Gum Machine Filler History: denies history of abnormal Pap smears or STIs. OB History: OB History Para Term AB [...] 2006 SAB 1 SAB 2004 SAB PMHx: Bi-polar with depression tendency, High cholesterol (states diagnosed last year, no current treatment) Past Medical History Diagnosis Date ??? High cholesterol ??? Depression bipolar ??? MRSA (methicillin resistant Staphylococcus aureus) 08/2009 cysts on leg, never cultured-told it was staph and was given medication ??? Anxiety Zoloft, Deplin ??? Bipolar affective disorder PSHx: C/S 2010 for pre-eclampsia, D&C, Jacquelin 2009, ear sugery Past Surgical History Procedure Laterality Date ??? Hx ear surgery ??? Hx cholecystectomy 02/2010 ??? Pr delivery only 11/21/2010 SECTION performed by KEO JULIEN at [facility] L&D ??? Hchg dilitation and curettage 01/14/2014 ??? Pr lap,rmv adnexal structure N/A 08/06/2015 LEFT SALPINGECTOMY LAPAROSCOPIC FOR ECTOPIC performed by Ayde Judge MD at [facility] ??? Hx dilation and curettage 01/2014 per fertility MD ??? Hx lymph node dissection 10/2014 armpit PSocHX: Denies any tobacco, ETOH Social History Substance Use Topics ??? Smoking status: Current Every Day Smoker -- 0.50 packs/day for 10 years Types: Cigarettes ??? Smokeless tobacco: Never Used ??? Alcohol Use: No Medications: PNV, Metformin (suspected PCOS), Baby ASA, folic acid, Zoloft Allergies Allergen Reactions ??? Adhesive Other (See Comments) Skin irritation ??? Latex Rash Physical Exam: Filed Vitals: 06/02/16 1200 BP: 141/75 Pulse: 88 Temp: 98.4 ??F (36.9 ??C) TempSrc: Oral Resp: 20 Height: 5' 6 (1.676 m) Weight: 112.492 kg (248 lb) General: Well-developed, obese female in NAD HEENT: Normocephalic, atraumatic. Mucus membranes moist, skin warm and dry Heart: acyanotic, RRR Lungs: unlabored, CTAB Abdomen: soft, gravid, NT Extremities: No clubbing, cyanosis, or edema. No calf tenderness. SVE: closed, thick, posterior SSE: thin white discharge, no odor Microscopic wet-mount exam shows FHR: doppled at 152 Results for orders placed or performed during the hospital encounter of 06/02/16 (from the past 24 hour(s)) URINALYSIS WITH REFLEX CULTURE Result Value Ref Range COLOR UA Yellow Pale to Dark Yellow CLARITY UA Clear Clear SPECIFIC GRAVITY UA 1.019 PH UA 6.0 5.0-8.0 LEUKOCYTE ESTERASE UA Negative Negative NITRITE UA Negative Negative PROTEIN UA Negative Negative GLUCOSE UA Negative Negative KETONES UA 1+ (A) Negative UROBILINOGEN UA Normal <2.0 mg/dL BILIRUBIN UA Negative Negative BLOOD UA Negative Negative Assessment/Plan: 30 y.o. IUP @ 21w6d 1. Pelvic pressure second trimester 2. Low suspicion for threatened labor 3. Negative UA and negative wet prep CNM discussed with Dr. Julien who advised reassurance and discharge home. Keep scheduled visit. Will provide pt with abdominal support belt. Call or return if there is any change in status. 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 Office Visit [facility] [place] [facility] - [place] [address] [place] [address] [facility] [address] [place] [address] Ubaldo Cardenas MD [address] [facility] [address] [place] [address] documented as of this encounter Procedures Procedure Name Priority Date/Time Associated Diagnosis Comments POC VAGINAL WET PREP Routine 06/02/2016 1:02 PM CDT URINALYSIS WITH REFLEX CULTURE Stat 06/02/2016 12:24 PM CDT documented in this encounter Results * POC VAGINAL WET PREP (06/02/2016 1:02 PM CDT) WET WBCS negative [facility] WET RBCS negative [facility] WET YEAST negative [facility] WET TRICHOMONAS negative [facility] WET CLUE CELLS negative [facility] Specimen from genital system (specimen) SPECIMEN FROM VAGINA / Unknown Lesvia Grant CNM POINT OF CARE TESTING [facility] CLIA# [id number] [address] [facility] [place] [address] * (ABNORMAL) URINALYSIS WITH REFLEX CULTURE (06/02/2016 12:24 PM CDT) COLOR UA Yellow Pale to Dark Yellow 06/02/2016 12:49 PM CDT [facility] CLARITY UA Clear Clear 06/02/2016 12:49 PM CDT [facility] SPECIFIC GRAVITY UA 1.019 06/02/2016 12:49 PM CDT [facility] PH UA 6.0 5.0 - 8.0 06/02/2016 12:49 PM CDT [facility] LEUKOCYTE ESTERASE UA Negative Negative 06/02/2016 12:49 PM CDT [facility] NITRITE UA Negative Negative 06/02/2016 12:49 PM CDT [facility] PROTEIN UA Negative Negative 06/02/2016 12:49 PM CDT [facility] GLUCOSE UA Negative Negative 06/02/2016 12:49 PM T [facility] KETONES UA 1+(A) Negative 06/02/2016 12:49 PM CDT [facility] UROBILINOGEN UA Normal <2.0 mg/dL 06/02/2016 12:49 PM CDT [facility] BILIRUBIN UA Negative Negative 06/02/2016 12:49 PM CDT [facility] BLOOD UA Negative Negative 06/02/2016 12:49 PM CDT [facility] Urine URINE SPECIMEN OBTAINED BY CLEAN CATCH PROCEDURE / Unknown 06/02/2016 12:24 PM CDT 06/02/2016 12:35 PM CDT Lesvia Grant CNM URINE ORDERABL ES [facility]# [id number] [address] [place] [address] documented in this encounter Visit Diagnoses Diagnosis Feeling pelvic pressure during in second trimester, antepartum documented in this encounter Care Teams Packer Inspector Relationship Specialty Start Date End Date Hilda Eden FNP [address] [place] [id number] PCP - General NURSE PRACTITIONER 07/13/13 01/05/18 documented as of this encounter
--- OUTSIDE RECORDS SUMMARY | 2024-08-03 01:42 | XMS_ITS | Encounter Summary ---
Author Organization [email or web address] Address [address] [place] [address] Care Team Providers Care Rf Engineer Name Role Phone Hilda Eden RADHA Primary Care Provider [phone] Reason for Visit * Reason Comments Vaginal Bleeding s/p surgery for left sided ectopic preg on 08/06. Began last night with RLQ pressure/pain, this AM has large amount of dark red blood, no clots. * Auth/Cert Specialty Diagnoses / Procedures Referred By Reva holbrook Referred To Contact Emergency Medicine [facility] Emergency Dept [address] [place] [address] Referral ID Status Reason Start Date Expiration Date Visits Re quested Visits Authorized [id number] 1 1 Encounter Details Date Type Department Care Team (Late st Contact Info) Description 08/09/2015 10:02 AM ASSISTANT OCEANOGRAPHER - 08/09/2015 2:32 PM ASSISTANT OCEANOGRAPHER Emergency [facility] Emergency Department [address] [place] [address] Walter Kelley MD [address] [place] [address] Right lower quadrant pain (Primary Dx) Discharge Disposition: Home or Self [...] Reading Time Taken Comments Blood Pressure 116/74 08/09/2015 1:54 PM ASSISTANT OCEANOGRAPHER Pulse 89 08/09/2015 1:54 PM ASSISTANT OCEANOGRAPHER Temperature 36.8 ??C (98.3 ??F) 08/09/2015 10:[address] Respiratory Rate 18 08/09/2015 1:54 PM ASSISTANT OCEANOGRAPHER Oxygen Saturation 97% 08/09/2015 1:54 PM ASSISTANT OCEANOGRAPHER Inhaled Oxygen Concentration - - Weight 117.9 kg (260 lb) 08/09/2015 10:12 AM ASSISTANT OCEANOGRAPHER Height 167.6 cm (5' 6 ) 08/09/2015 10:12 AM ASSISTANT OCEANOGRAPHER Body Mass Index 41.97 08/09/2015 10:12 AM ASSISTANT OCEANOGRAPHER documented in this encounter Discharge Instructions * Discharge Instructions* Walter Kelley MD - 08/09/2015 1:46 PM ASSISTANT OCEANOGRAPHER Please have close followup with Dr. Julien on Sunday. Will have having vaginal bleeding and clots likely over the next few days. Continue to take the pain medications as prescribed. Call Dr. Julien beforehand, though return with any concerns. STANT OCEANOGRAPHER documented in this encounter Medications at Time of Discharge Medication Sig Dispensed Refills Start Date End Date L-methylfolate (DEPLIN) 15 mg Tablet Take 25 mg by mouth daily. 09/15/2016 hydromorPHONE (DILAUDID) 4 mg tablet Take 4 mg by mouth every 3 hours as needed for Pain. 06/02/2016 buPROPion (WELLBUTRIN) 100 mg tablet Take 100 mg by mouth 2 times daily. 06/02/2016 oxyCODONE-acetaminophen (PERCOCET) 5-325 mg tablet Take 1 Tablet by mouth every 4 hours as needed for Pain, Moderate. Max Daily Amount: 6 Tablet 15 Tablet None 08/09/2015 06/02/2016 docusate sodium (COLACE) 100 mg capsule Take [...] OXINE (FABB ORAL) Take by mouth daily. 09/15/2016 gabapentin (NEURONTIN) 300 mg capsule Take [...] as of this encounter ED Notes * Eli Peterson RN - 08/09/2015 1:54 PM CST Pt rates pain at 8.5. Patient/family has been informed about benefits and any potential clinically significant side effects or other concerns regarding the administration of the drug they have just been given. STANT OCEANOGRAPHER * Jackie Black RN - 08/09/2015 1:[address] Kelley at bedside to update pt on POC. Pt reports improvement in anxiety. RLQ soreness persists at 6/10. IVF completed. VSS as charted. Will monitor. STANT OCEANOGRAPHER * Jackie Black RN - 08/09/2015 12:25 PM CST Pt to CT STANT OCEANOGRAPHER * Jackie Black RN - 08/09/2015 11:42 AM CST Pt medicated for 8/10 RLQ pain and anxiety per order. Patient/family has been informed about benefits and any potential clinically significant side effects or other concerns regarding the administration of the drug they have just been given. STANT OCEANOGRAPHER * Jackie Black RN - 08/09/2015 11:22 AM CST Pt ambulates to bedside commode with assistance, reports increased RLQ pain with movement. Has decreased in pain to 7/10. Pt sts it feels like gas pains . Has increased anxiety. Scant amount of blood noted to peripad. STANT OCEANOGRAPHER * Jackie Black RN - 08/09/2015 11:03 AM CST PT reports feeling a big gush of blood . Pt peripad changed and noted to have small amount of bright red blood with no clots. Meds given, IVF started. Labs drawn. Patient/family has been informed about benefits and any potential clinically significant side effects or other concerns regarding the ad ministration of the drug they have just been given. STANT OCEANOGRAPHER * Walter Kelley MD - 08/09/2015 10:28 AM CST Images from the original note were not included. Emergency Department Attending Physician Note History of Present Illness Primary Care Doctor: Hilda Eden FNP Documented Triage Chief Complaint: Vaginal Bleeding Provider was at the bedside at 10:28 AM Vera Vitale is a 30 y.o. female who presents with vaginal bleeding. She had left sided ectopic on 08/06 (3 days ago) and was d/c that day without pain or bleeding. She began last evening with RLQ abdominal pain and pressure. She took her Rx pain medications and went to bed. She reports that when she stood up this morning from a laying position she experienced a very sharp pain with a large amount of bleeding. She also states that she was nearly syncopal, with an acute onset of diaphoresis, weakness, nausea, and lightheadedness. Pt states that she is currently on Dilaudid and Percocet for her chronic pains. Dr. Julien is her current MEDICAL SALES CONSULTANT, and Dr. Alexis (MEDICAL SALES CONSULTANT) performed her surgery. Onset: Sudden Severity: mioderate Duration: 2 hours Frequency/Progression: Constant Quality: Pain is 8/10 Modifiers: Ectopic 3 days ago Associated symptoms: Weakness, nausea, and lightheadedness Patient information was obtained from primarily from the patient, History/Exam limitations: None Relevant Medical History Past Medical History: Past Medical History Diagnosis Date ??? MRSA (methicillin resistant Staphylococcus aureus) 08/2009 cysts on leg, never cultured-told it was staph and was given medication ??? High cholesterol ??? Anxiety ??? Depression bipolar Past Surgical History: Past Surgical History Procedure Laterality Date ??? Hx ear surgery ??? Hx cholecystectomy 02/2010 ??? Pr delivery only 11/21/2010 SECTION performed by KEO JULIEN at [facility] L&D ??? Hchg dilitation and curettage 01/14/2014 ??? Pr lap,rmv adnexal structure N/A 08/06/2015 LEFT SALPINGECTOMY LAPAROSCOPIC FOR ECTOPIC performed by Ayde Judge MD at [facility] [place] Medications: Discharge Medication List as of 08/09/2015 1:46 PM CONTINUE these medications which have NOT CHANGED Details L-methylfolate (DEPLIN) 15 mg Tablet Take 25 mg by mouth daily. hydromorPHONE (DILAUDID) 4 mg tablet Take 4 mg by mouth every 3 hours as needed for Pain. buPROPion (WELLBUTRIN) 100 mg tablet Take 100 mg by mouth 2 times daily. docusate sodium (COLACE) 100 mg capsule Take 1 Capsule (100 mg) by mouth 2 times daily., Disp-60 Capsule, R-0 !! ibuprofen (MOTRIN) 600 mg tablet Take 1 Tablet (600 mg) by mouth every 6 hours as needed for Pain, Mild., Disp-60 Tablet, R-0 oxyCODONE-acetaminophen (PERCOCET) 5-325 mg tablet Take 1 Tablet by mouth every 4 hours as needed for Pain, Moderate (For Pain Scale 4-6). Max Daily Amount: 6 Tablet, Disp-50 Tablet, R-0 amitriptyline (ELAVIL) 50 mg tablet Take 100 mg by mouth daily at bedtime . nortriptyline (PAMELOR) 75 mg capsule Take 75 mg by mouth daily at bedtime. CYANOCOBALAMIN/FA/PYRIDOXINE (FABB ORAL) Take by mouth daily. gabapentin (NEURONTIN) 300 mg capsule Take 1 Cap by mouth 3 times daily., Disp- 20 Cap, R-0 divalproex SR 24 hour (DEPAKOTE ER) 250 mg tablet Take 750 mg by mouth 3 times daily. venlafaxine (EFFEXOR) 100 mg tablet Take 100 mg by mouth 3 times daily. diazepam (VALIUM) 5 mg Oral tablet Take 1 Tab by mouth every 8 hours as needed for Anxiety., Disp-15 Tab, R-0 !! ibuprofen (MOTRIN) 600 mg Oral tablet Take 1 Tab by mouth every 6 hours as needed for Pain., Disp-60 Tab, R-1 vit-iron fumarate-FA ( VITAMIN) 27-0.8 mg Oral Tab Take 1 Tab by mouth daily. !! - Potential duplicate medications found. Please discuss with provider. Allergies: Adhesive and Latex Social History: reports that she has been smoking Cigarettes. She has a 5 pack-year smoking history. She has never used smokeless tobacco. She reports that she does not drink alcohol or use illicit drugs. Family History: family history includes Diabetes [...] pain, No palpitations GI: No abdominal pain, + nausea, no vomiting, no diarrhea : No dysuria, no hematuria Musculoskeletal: No joint pain, no muscle aches Skin: No rash Heme: No spontaneous bleeding, no bruising Neuro: + weakness, no headache, no numbness/tingling, no difficulty walking, +lightheaded, Psych: No hallucinations, no acute change in mood Physical Exam BP: 116/74 mmHg (08/09/15 1354), Pulse: 89 (08/09/15 1354), Resp: 18 (08/09/15 1354), Temp: 98.3 ??F (36.8 ??C) (08/09/15 1012), Temp src: Oral (08/09/15 1012) General: Alert, no obvious distress, HEENT: Normocephalic, atraumatic, Throat clear, no erythema or swelling, Nose without drainage, mucous membranes moist, Neck: No tenderness Back: No tenderness Chest Wall: No tenderness, injury or deformity Heart: RRR without Murmur Lungs: CTA = Bilat Abdomen: Soft, tenderness throughout right side of abd, normal bowel sounds Rectal: Not performed Extremities: No edema, no calf tenderness, distal pulses intact Pulses: 2+ radial = bilat Skin: No rash, no petechiae, no purpura Lymphatic: No lymphadenopathy noted Neuro: No facial droop, good and equal strength and sensation in all extremities. Psychiatric: normal affect and mood. Studies and Interpretation Pulse Oximetry Interpretation: Saturation: 96% Oxygen Delivery: Room Air Interpretation: No hypoxia at this time Rhythm Strip Interpretation (independent interpretation by Mikhail Kelley MD): Normal Sinus Rhythm, no arrhythmia Ventricular Rate: 94 Imaging (all imaging was independently reviewed by me): CT ABDOMEN PELVIS W CONTRAST Radiologist Impression IMPRESSION: A small amount of endometrial fluid DLP: 1893 mGy-cm Lab: (Reviewed by me), Significant for: Results for orders placed or performed during the hospital encounter of 08/09/15 (from the past 24 hour(s)) CBC WITH DIFFERENTIAL Result Value Ref Range WBC 6.6 4.0-9.8 K/uL RBC 4.70 3.90-4.90 M/uL HEMOGLOBIN 13.3 11.8-14.8 g/dL HEMATOCRIT 40.2 35.5-44.0 % MCV 85.5 82.0-99.0 fL MCH 28.3 27.2-32.6 pg MCHC 33.1 30.0-36.0 g/dL RDW 14.3 11.5-14.5 % RDW-STDEV 44.1 37.1-48.7 fL PLATELETS 273 140-350 K/uL MPV 8.8 (L) 9.3-12.4 fL NEUTROPHILS 70 45-70 % LYMPHOCYTES 22 16-45 % MONOCYTES 6 3-13 % EOSINOPHILS 1 <7 % BASOPHILS 0 <3 % NEUTROPHIL ABSOLUTE 4.64 1.90-7.00 K/uL LYMPHOCYTE ABSOLUTE 1.48 0.70-4.50 K/uL MONOCYTE ABSOLUTE 0.42 0.10-1.30 K/uL EOSINOPHIL ABSOLUTE 0.07 <0.70 K/uL BASOPHILS ABSOLUTE 0.01 <0.30 K/uL COMPREHENSIVE METABOLIC PANEL Result Value Ref Range SODIUM 141 136-145 mmol/L POTASSIUM 3.7 3.5-5.0 mmol/L CHLORIDE 102 98-107 mmol/L CO2 25 22-29 mmol/L CALCIUM 9.0 8.6-10.2 mg/dL BUN 6 6-20 mg/dL CREATININE 0.68 0.51-0.95 mg/dL GLUCOSE 99 79-99 mg/dL TOTAL PROTEIN 7.3 6.7-8.6 g/dL ALBUMIN 4.3 3.5-5.2 g/dL BILIRUBIN TOTAL 0.3 0.3-1.2 mg/dL ALKALINE PHOSPHATASE 98 35-104 U/L AST 32 <33 U/L ALT 57 (H) <34 U/L GFR >60 >=60 mL/min/1.73 sq meter GFR, >60 >=60 mL/min/1.73 sq meter ANION GAP 14 8-16 mmol/L TYPE AND SCREEN Result Value Ref Range ABO GROUP B RH (D) TYPE Positive ANTIBODY SCREEN Negative HCG QUANTITATIVE, BLOOD Result Value Ref Range HCG QUANT, BLOOD 31.4 (H) <5.0 mIU/mL POC LACTIC ACID Result Value Ref Range POC LACTATE 0.8 0.5-2.2 mmol/L URINALYSIS WITH REFLEX CULTURE Result Value Ref Range COLOR UA Red (A) Pale to Dark Yellow CLARITY UA Cloudy (A) Clear SPECIFIC GRAVITY UA 1.010 1.003-1.035 PH UA 8.0 5.0-8.0 LEUKOCYTE ESTERASE UA Trace (A) Negative NITRITE UA Negative Negative PROTEIN UA 2+ (A) Negative GLUCOSE UA Negative Negative KETONES UA Negative Negative UROBILINOGEN UA Normal <2.0 mg/dL BILIRUBIN UA Negative Negative BLOOD UA 3+ (A) Negative WBC UA 11-25 (A) 0-2 /hpf RBC UA >100 (A) 0-2 /hpf BACTERIA UA Negative Negative /hpf EPITHELIAL CELLS, URINE 0-5 0-5 /hpf Medical Decision Making and ED Course Initial Evaluation: 30 y.o. female who presents with vaginal bleeding. With reviewing triage note/vitals as well as initial encounter with patient and exam, I had considered at least at one time in the differential: internal bleeding, ovarian contortion, ectopic , UTI. I reviewed prior records and noted a previous ectopic . Initial blood work and imaging included: basic labs and urine. Medications given initially were: Morphine, Ativan Updates Pelvic exam showed minimal bleeding in the vaginal vault. Blood work normal. CT scan normal. Given RLQ pain has been ongoing since the surgery, lower suspicion for ovarian torsion. Discussed with Derrick who was familiar with the patient, comfortable with them going home. Will return with any worsneing or concerning symptoms. Discharged with family member. Medications Given Medications Administered During the ED Stay from 08/09/2015 0959 to 08/09/2015 1435 Date/Time Order Dose Route Action 08/09/2015 1318 sodium chloride 0.9% bolus solution 1,000 mL 0 mL IV Stopped 08/09/2015 1054 sodium chloride 0.9% bolus solution 1,000 mL 1,000 mL IV New Bag 08/09/2015 1053 morphine 4 mg/mL injection 4 mg 4 mg IV Given 08/09/2015 1131 morphine 4 mg/mL injection 4 mg 4 mg IV Given 08/09/2015 1132 LORazepam (ATIVAN) 2 mg/mL injection 0.5 mg 0.5 mg IV Given 08/09/2015 1242 ioversol (OPTIRAY 320) 320 mg iodine/mL syringe 125 mL 125 mL IV Given 08/09/2015 1353 morphine 4 mg/mL injection 4 mg 4 mg IV Given Amount and/or Complexity of Data Reviewed --Triage notes reviewed, reviewed nurses noted as well. --Clinical lab tests: ordered and reviewed --Independent visualization of images, tracings, or specimens (including EKGs): yes --Previous electrocardiograms reviewed: no --Review and summarize past medical records: yes --Discuss the patient with other providers: yes Critical Care / Procedures No procedures done during this visit. No critical care time was provided for the patient. Final Disposition / Summary Summary 30 y.o. female who presented with right lower abdominal pain, vaginal bleeding, hx/o ruptured ectopic 1 week ago. Workup negative, well appearing, minimal bleeding, discussed with Derrick, low suspicion for ovarian torsion or persistent ectopic . Discharged with f/u with Derrick,will return with any worsening or concerning symptoms. 1432: I updated the patient on findings, diagnosis, and plan for discharge. Any prescriptions givenare listed below and they were instructed to follow up with the given provider. Pt agrees with the plan and is comfortable going home. The patient is clincally well; my impression is that at this time, they are safe for discharge. I have spent time counseling the patient on their diagnosis, findings , results, and plan including strict return to ER instructions for this diagnosis and mandatory follow up. Vitals at Discharge: BP 116/74 mmHg Pulse 89 Temp(Src) 98.3 ??F (36.8 ??C) (Oral) Resp 18 Ht 5' 6 (1.676 m) Wt 117.935 kg BMI 41.99 kg/m2 SpO2 97% LMP 06/15/2015 New Prescriptions: Discharge Medication List as of 08/09/2015 1:46 PM CONTINUE these medications which have NOT CHANGED Details L-methylfolate (DEPLIN) 15 mg Tablet Take 25 mg by mouth daily. hydromorPHONE (DILAUDID) 4 mg tablet Take 4 mg by mouth every 3 hours as needed for Pain. buPROPion (WELLBUTRIN) 100 mg tablet Take 100 mg by mouth 2 times daily. !! ibuprofen (MOTRIN) 600 mg tablet Take 1 Tablet (600 mg) by mouth every 6 hours as needed for Pain, Mild., Disp-60 Tablet, R-0 amitriptyline (ELAVIL) 50 mg tablet Take 100 mg by mouth daily at bedtime . CYANOCOBALAMIN/FA/PYRIDOXINE (FABB ORAL) Take by mouth daily. diazepam (VALIUM) 5 mg Oral tablet Take 1 Tab by mouth every 8 hours as needed for Anxiety., Disp-15 Tab, R-0 !! ibuprofen (MOTRIN) 600 mg Oral tablet Take 1 Tab by mouth every 6 hours as needed for Pain., Disp-60 Tab, R-1 vit-iron fumarate-FA ( VITAMIN) 27-0.8 mg Oral Tab Take 1 Tab by mouth daily. docusate sodium (COLACE) 100 mg capsule Take 1 Capsule (100 mg) by mouth 2 times daily., Disp-60 Capsule, R-0 oxyCODONE-acetaminophen (PERCOCET) 5-325 mg tablet Take 1 Tablet by mouth every 4 hours as needed for Pain, Moderate (For Pain Scale 4-6). Max Daily Amount: 6 Tablet, Disp-50 Tablet, R-0 nortriptyline (PAMELOR) 75 mg capsule Take 75 mg by mouth daily at bedtime. gabapentin (NEURONTIN) 300 mg capsule Take 1 Cap by mouth 3 times daily., Disp- 20 Cap, R-0 divalproex SR 24 hour (DEPAKOTE ER) 250 mg tablet Take 750 mg by mouth 3 times daily. venlafaxine (EFFEXOR) 100 mg tablet Take 100 mg by mouth 3 times daily. !! - Potential duplicate medications found. Please discuss with provider. Follow Up: Keo Julien MD [address] [place] [address] Schedule an appointment as soon as possible for a visit in 2 days Diagnosis: Encounter Diagnoses Code Name Primary? R10.31 Right lower quadrant pain Yes Disposition: Discharge This note has been prepared by Gutierrez Ha and Smita Manzano acting as a scribe for Dr. Walter Kelley on 08/09/2015 at 1:11 PM. The scribe's documentation has been prepared under my direction and personally reviewed by me, Walter Kelley MD, 08/09/2015 2:37 PM, in its entirety on 08/09/2015 at 2:35 PM. I confirm that the note above accurately reflects all work, treatment, procedures, and medical decision making performed by me. STANT OCEANOGRAPHER * Jackie Black RN - 08/09/2015 10:14 AM CST To ED via EMS for vaginal bleeding with dark red blood, no clots that began this AM - pt sts she stood up and there was a gush of blood . Also having RLQ abd pain described as tight pressure at 8/10that began last night. S/p ectopic on 08/06, was d/c home the next day without pain/bleeding. Had near syncopal event FITTER WELDER - acute onset diaphoresis, weakness, nausea, lightheadedness. Pt had 100mcg Fentanyl en route, which minimally helped. Aox4. Skin PWD. STANT OCEANOGRAPHER * Mary Curtis RN - 08/09/2015 10:02 AM CST Bed: 22 Expected date: 08/09/15 Expected time: 9:56 AM Means of arrival: [place] Comments: 30 F vag bleed STANT OCEANOGRAPHER documented in this encounter Plan of Treatment Upcoming Encounters Date Type Department Care Team (Late st Contact Info) Description 10/14/2024 11:00 AM ASSISTANT OCEANOGRAPHER Office Visit [facility] Oncology and Hematology - [place] [address] [facility] [address] [place] [address] Ubaldo Cardenas MD [address] [place] [address] documented as of this encounter Procedures Procedure Name Priority Date/Time Associated Diagnosis Comments CT ABDOMEN PELVIS W CONTRAST Stat 08/09/2015 12:55 PM ASSISTANT OCEANOGRAPHER URINALYSIS WITH REFLEX CULTURE Stat 08/09/2015 11:21 AM ASSISTANT OCEANOGRAPHER URINE CULTURE Stat 08/09/2015 11:21 AM ASSISTANT OCEANOGRAPHER POC LACTIC ACID Stat 08/09/2015 10:59 AM ASSISTANT OCEANOGRAPHER HCG QUANTITATIVE, BLOOD Stat 08/09/2015 10:50 AM ASSISTANT OCEANOGRAPHER TYPE AND SCREEN Stat 08/09/2015 10:43 AM ASSISTANT OCEANOGRAPHER EXTRA TUBE (BB PINK/LAV) Stat 08/09/2015 10:10 AM ASSISTANT OCEANOGRAPHER EXTRA TUBE (BLUE) Stat 08/09/2015 10: 10 AM ASSISTANT OCEANOGRAPHER EXTRA TUBE Stat 08/09/2015 10:10 AM ASSISTANT OCEANOGRAPHER EXTRA TUBE (PINK) Stat 08/09/2015 10: 10 AM ASSISTANT OCEANOGRAPHER CBC WITH DIFFERENTIAL Stat 08/09/2015 10:10 AM ASSISTANT OCEANOGRAPHER COMPREHENSIVE METABOLIC PANEL Stat 08/09/2015 10:10 AM ASSISTANT OCEANOGRAPHER documented in this encounter Results * CT ABDOMEN PELVIS W CONTRAST (08/09/2015 12:55 PM ASSISTANT OCEANOGRAPHER) Anatomical Region Laterality Modality Abdomen Computed Tomogra phy 08/09/2015 12:2 3 PM ASSISTANT OCEANOGRAPHER Impressions 08/09/2015 1:11 PM ASSISTANT OCEANOGRAPHER IMPRESSION: A small amount of endometrial fluid DLP: ??1893 mGy-cm Narrative 08/09/2015 1:[address] ABDOMEN AND PELVIS ??WITH CONTRAST, WITH RECONSTRUCTED IMAGES HISTORY: ??Acute right lower quadrant pain and vaginal bleeding FINDINGS: ??After administration of 125 cc of Optiray-320, the abdomen and pelvis are scanned by 5 mm intervals and reconstructed in the axial and coronal planes. The fatty liver and spleen enhance homogeneously without evidence of parenchymal abnormality. The spleen is normal in size. The adrenal glands and pancreas are unremarkable. There is no biliary ductal dilatation. The kidneys enhance normally and symmetrically without evidence of parenchymal abnormality or obstruction. There is no evidence of retroperitoneal or other lymphadenopathy. The aorta is normal in caliber. Small and large bowel loops are normal in caliber without evidence of obstruction. In the pelvis there is minimal free intraperitoneal fluid. There is a small amount of fluid in the endometrial cavity. The adnexal regions are unremarkable. No inflammatory changes are identified. Procedure Note Ivis Simms MD - 08/09/2015 CT ABDOMEN AND PELVIS WITH CONTRAST, WITH RECONSTRUCTED IMAGES HISTORY: Acute right lower quadrant pain and vaginal bleeding FINDINGS: After administration of 125 cc of Optiray-320, the abdomen and pelvis are scanned by 5 mm intervals and reconstructed in the axial and coronal planes. The fatty liver and spleen enhance homogeneously without evidence of parenchymal abnormality. The spleen is normal in size. The adrenal glands and pancreas are unremarkable. There is no biliary ductal dilatation. The kidneys enhance normally and symmetrically without evidence of parenchymal abnormality or obstruction. There is no evidence of retroperitoneal or other lymphadenopathy. The aorta is normal in caliber. Small and large bowel loops are normal in caliber without evidence of obstruction. In the pelvis there is minimal free intraperitoneal fluid. There is a small amount of fluid in the endometrial cavity. The adnexal regions are unremarkable. No inflammatory changes are identified. IMPRESSION IMPRESSION: A small amount of endometrial fluid DLP: 1893 mGy-cm Walter Kelley MD CT ORDERABLES * URINE CULTURE (08/09/2015 11:21 AM ASSISTANT OCEANOGRAPHER) CULTURE Polymicrobial growth consistent with normal urethral stephanie and/or colonizing bacteria 08/10/2015 12:08 PM [facility] [employer] SERVICES [facility] Urine, clean catch URINE SPECIMEN OBTAINED BY CLEAN CATCH PROCEDURE / Unknown Collection / Unknown 08/09/2015 11:21 AM ASSISTANT OCEANOGRAPHER 08/09/2015 11:41 AM ASSISTANT OCEANOGRAPHER Walter Kelley MD MICROBIOLOGY - [facility] ORDERABLES [facility] [employer] [facility]# [id number] [address] [place] [address] * (ABNORMAL) URINALYSIS WITH REFLEX CULTURE (08/09/2015 11:21 AM ASSISTANT OCEANOGRAPHER) COLOR UA Red(A) Pale to Dark Yellow 08/09/2015 12:26 PM [facility] [employer] LABORATORY SERVICES - [facility] CLARITY UA Cloudy(A) Clear 08/09/2015 12:26 PM [facility] LABORATORY [facility] SPECIFIC GRAVITY UA 1.010 1.003 - 1.035 08/09/2015 12:26 PM [facility] LABORAT[facility] PH UA 8.0 5.0 - 8.0 08/09/2015 12:26 PM [facility]OR[facility] LEUKOCYTE ESTERASE UA Trace(A) Negative 08/09/2015 12:26 PM [facility] NITRITE UA Negative Negative 08/09/2015 12:26 PM [facility] PROTEIN UA 2+(A) Negative 08/09/2015 12:26 PM [facility] GLUCOSE UA Negative Negative 08/09/2015 12:26 PM [facility] KETONES UA Negative Negative 08/09/2015 12:26 PM [facility] UROBILINOGEN UA Normal <2.0 mg/dL 08/09/2015 12:26 PM [facility] BILIRUBIN UA Negative Negative 08/09/2015 12:26 PM [facility] BLOOD UA 3+(A) Negative 08/09/2015 12:26 PM [facility] WBC UA 11-25(A) 0 - 2 /hpf 08/09/2015 12:26 PM [facility] RBC UA >100(A) 0 - 2 /hpf 08/09/2015 12:26 PM [facility] BACTERIA UA Negative Negative /hpf 08/09/2015 12:26 PM [facility] [facility] EPITHELIAL CELLS, URINE 0-5 0 - 5 /hpf 08/09/2015 12:26 PM [facility] Urine, clean catch Collection / Unknown 08/09/2015 11:21 AM ASSISTANT OCEANOGRAPHER 08/09/2015 11:41 AM [facility] - 08/09/2015 12:26 PM ASSISTANT OCEANOGRAPHER Based on results, a urine culture has been reflexed. Walter Kelley MD URINE ORDERABLES [facility]# [id number] 5 [facility] [address] [place] [address] * POC LACTIC ACID (08/09/2015 10:59 AM ASSISTANT OCEANOGRAPHER) LACTIC ACID POC 0.8 0.5 - 2.2 mmol/L 08/09/2015 11:05 AM ASSISTANT OCEANOGRAPHER [facility] Blood 08/09/2015 10:5 9 AM ASSISTANT OCEANOGRAPHER 08/09/2015 11:05 AM ASSISTANT OCEANOGRAPHER Walter Kelley MD [facility] CLIA# [id number] [address] [place] [address] * (ABNORMAL) HCG QUANTITATIVE, BLOOD (08/09/2015 10:50 AM ASSISTANT OCEANOGRAPHER) HCG QUANT, BLOOD 31.4(H) <5.0 mIU/mL 08/09/2015 11:51 AM ASSISTANT OCEANOGRAPHER [facility] Blood Venipuncture - Floor Collect / Unknown 08/09/2015 10:50 AM ASSISTANT OCEANOGRAPHER 08/09/2015 11:05 AM ASSISTANT OCEANOGRAPHER Narrative [facility] - 08/09/2015 11:51 AM ASSISTANT OCEANOGRAPHER Result of 5 - 25 mIU/mL is indeterminant for , repeat of test recommemded in 48 hours. Reference Range: Gestational Age ? HCG Concentration 3 ??Weeks ?5.8 - 71.2 ? mIU/mL 4 ??Weeks ?9.5 - 750 ?mIU/mL 5 ??Weeks ?217 - 8938 ? mIU/mL 6 ??Weeks ?158 - 31,795 [...] test and correlated with other clinical evidence. Walter Kelley MD CHEMISTRY ORDERAB LES Performing Organization Address [facility] Co de Phone Number [facility]# [id number] [address] [place] [address] * TYPE AND SCREEN (08/09/2015 10:43 AM ASSISTANT OCEANOGRAPHER) ABO GROUP B 08/09/2015 11:34 AM [facility] RH (D) TYPE Positive 08/09/2015 11:34 AM [facility] ANTIBODY SCREEN Negative 08/09/2015 11:34 AM [facility] Blood specimen (specimen) Collection / Unknown 08/09/2015 10:43 AM ASSISTANT OCEANOGRAPHER 08/09/2015 10:43 AM ASSISTANT OCEANOGRAPHER Walter Kelley MD BLOOD BANK ORDERA BLES Performing Organization Address [facility] Co de Phone Number [facility]# [id number] [address] [place] [address] * EXTRA TUBE (PINK) (08/09/2015 10:10 AM ASSISTANT OCEANOGRAPHER) Blood Venipuncture - Floor Collect / Unknown 08/09/2015 10:10 AM ASSISTANT OCEANOGRAPHER 08/09/2015 10:31 AM ASSISTANT OCEANOGRAPHER Protocol [facility] Emergency CHEMISTRY OR DERABLES [facility] CLIA# [id number] [address] [place] [address] * EXTRA TUBE (BB PINK/LAV) (08/09/2015 10:10 AM ASSISTANT OCEANOGRAPHER) Blood Venipuncture - Floor Collect / Unknown 08/09/2015 10:10 AM ASSISTANT OCEANOGRAPHER 08/09/2015 10:31 AM ASSISTANT OCEANOGRAPHER Protocol [facility] Emergency CHEMISTRY OR DERABLES Performing Organization Address [facility] Co de Phone Number [facility] CLIA# [id number] [address] [place] [address] * EXTRA TUBE (BLUE) (08/09/2015 10:10 AM ASSISTANT OCEANOGRAPHER) Blood Venipuncture - Floor Collect / Unknown 08/09/2015 10:10 AM ASSISTANT OCEANOGRAPHER 08/09/2015 10:31 AM ASSISTANT OCEANOGRAPHER Protocol [facility] Emergency HEMATOLOGY O RDERABLES Performing Organization Address [facility] Co de Phone Number [facility] [employer] [facility] CLIA# [id number] [address] [place] [address] * (ABNORMAL) COMPREHENSIVE METABOLIC PANEL (08/09/2015 10:10 AM ASSISTANT OCEANOGRAPHER) Pathologist [facility] SODIUM 141 136 - 145 mmol/L 08/09/2015 10:49 AM ASSISTANT OCEANOGRAPHER [facility] - [facility] POTASSIUM 3.7 3.5 - 5.0 mmol/L 08/09/2015 10:49 AM ASSISTANT OCEANOGRAPHER [facility] - [facility] CHLORIDE 102 98 - 107 mmol/L 08/09/2015 10:49 AM ASSISTANT OCEANOGRAPHER [employer] [facility] - . [facility] CO2 25 22 - 29 mmol/L 08/09/2015 10:49 AM [facility] CALCIUM 9.0 8.6 - 10.2 mg/dL 08/09/2015 10:49 AM [facility] - [facility] BUN 6 6 - 20 mg/dL 08/09/2015 10:49 AM [facility] - [facility] CREATININE 0.68 0.51 - 0.95 mg/dL 08/09/2015 10:49 AM [facility] - [facility] GLUCOSE 99 79 - 99 mg/dL 08/09/2015 10:49 AM [facility] - [facility] TOTAL PROTEIN 7.3 6.7 - 8.6 g/dL 08/09/2015 10:49 AM [facility] - [facility] ALBUMIN 4.3 3.5 - 5.2 g/dL 08/09/2015 10:49 AM [facility] BILIRUBIN TOTAL 0.3 0.3 - 1.2 mg/dL 08/09/2015 10:49 AM [facility] ALKALINE PHOSPHATASE 98 35 - 104 U/L 08/09/2015 10:49 AM [facility] AST 32 <33 U/L 08/09/2015 10:49 AM [facility] ALT 57(H) <34 U/L 08/09/2015 10:49 AM [facility] GFR >60 >=60 mL/min/1.7 3 sq meter 08/09/2015 10:49 AM [facility] Comment: eGFR [...] GFR, >60 >=60 mL/min/1.7 3 sq meter 08/09/2015 10:49 AM [facility] ANION GAP 14 8 - 16 mmol/L 08/09/2015 10:49 AM [facility] - [facility] Blood Venipuncture - Floor Collect / Unknown 08/09/2015 10:10 AM ASSISTANT OCEANOGRAPHER 08/09/2015 10:17 AM ASSISTANT OCEANOGRAPHER Walter Kelley MD CHEMISTRY ORDERAB LES [facility] - [facility] CLIA# [id number] [address] [facility] [address] [place] [address] * (ABNORMAL) CBC WITH DIFFERENTIAL (08/09/2015 10:10 AM ASSISTANT OCEANOGRAPHER) WBC 6.6 4.0 - 9.8 K/uL 08/09/2015 10:33 AM [facility] [employer] - [facility] RBC 4.70 3.90 - 4.90 M/uL 08/09/2015 10:33 AM ASSISTANT OCEANOGRAPHER [employer] - [facility] HEMOGLOBIN 13.3 11.8 - 14.8 g/dL 08/09/2015 10:33 AM [facility] [employer] [facility] - [facility] HEMATOCRIT 40.2 35.5 - 44.0 % 08/09/2015 10:33 AM [employer] SERVICES - [facility] MCV 85.5 82.0 - 99.0 fL 08/09/2015 10:33 AM [employer] [facility] [facility] - [facility] MCH 28.3 27.2 - 32.6 pg 08/09/2015 10:33 AM [facility] - [facility] MCHC 33.1 30.0 - 36.0 g/dL 08/09/2015 10:33 AM ASSISTANT OCEANOGRAPHER [facility] SERVICES - [facility] RDW 14.3 11.5 - 14.5 % 08/09/2015 10:33 AM [facility] - [facility] RDW-STDEV 44.1 37.1 - 48.7 fL 08/09/2015 10:33 AM [facility] [employer] [facility] - [facility] PLATELETS 273 140 - 350 K/uL 08/09/2015 10:33 AM [facility] - [facility] MPV 8.8(L) 9.3 - 12.4 fL 08/09/2015 10:33 AM [facility] [facility] - [facility] NEUTROPHILS 70 45 - 70 % 08/09/2015 10:33 AM [facility] - [facility] LYMPHOCYTES 22 16 - 45 % 08/09/2015 10:33 AM [facility] [employer] [facility] - [facility] MONOCYTES 6 3 - 13 % 08/09/2015 10:33 AM [facility] [employer] [facility] - [facility] EOSINOPHILS 1 <7 % 08/09/2015 10:33 AM [facility] [employer] [facility] - [facility] BASOPHILS 0 <3 % 08/09/2015 10:33 AM [facility] [employer] [facility] - [facility] NEUTROPHIL ABSOLUTE 4.64 1.90 - 7.00 K/uL 08/09/2015 10:33 AM [facility] [employer] [facility] - [facility] LYMPHOCYTE ABSOLUTE 1.48 0.70 - 4.50 K/uL 08/09/2015 10:33 AM [facility] [employer] [facility] - [facility] MONOCYTE ABSOLUTE 0.42 0.10 - 1.30 K/uL 08/09/2015 10:33 AM [facility] [employer] [facility] - [facility] EOSINOPHIL ABSOLUTE 0.07 <0.70 K/uL 08/09/2015 10:33 AM [facility] [employer] LABORATORY SERVICES - [facility] BASOPHILS ABSOLUTE 0.01 <0.30 K/uL 08/09/2015 10:33 AM [facility] [employer] [facility] - [facility] Blood Venipuncture - Floor Collect / Unknown 08/09/2015 10:10 AM ASSISTANT OCEANOGRAPHER 08/09/2015 10:17 AM [facility] Walter Kelley MD HEMATOLOGY ORDERA BLES [facility] [employer] SERVICES [facility]# [id number] [address] [facility] [address] [place] [address] documented in this encounter Visit Diagnoses Diagnosis Right lower quadrant pain- Primary Abdominal pain, right lower quadrant documented in this encounter Administered Medications Inactive Administered Medications - up to 3 most recent administrations Medication Order MAR Action Action Date Dose Rate Site ioversol (OPTIRAY 320) 320 mg iodine/mL syringe 125 mL 125 mL, IV, INTRA-PROCEDURE ONCE, 1 dose, Starting on Sun08/09/15 at 1242, Until Sun08/09/15 at 1242 Given 08/09/2015 12:42 PM ASSISTANT OCEANOGRAPHER 125 mL LORazepam (ATIVAN) 2 mg/mL injection 0.5 mg 0.5 mg, IV, ONE TIME ONLY, 1 dose, On Sun08/09/15 at 1130, Stat Given 08/09/2015 11:32 AM ASSISTANT OCEANOGRAPHER 0.5 mg morphine 4 mg/mL injection 4 mg 4 mg, IV, ONE TIME ONLY, 1 dose, On Sun08/09/15 at 1045, Routine Given 08/09/2015 10:53 AM ASSISTANT OCEANOGRAPHER 4 mg morphine 4 mg/mL injection 4 mg 4 mg, IV, ONE TIME ONLY, 1 dose, On Sun08/09/15 at 1130, Stat Given 08/09/2015 11:31 AM ASSISTANT OCEANOGRAPHER 4 mg morphine 4 mg/mL injection 4 mg 4 mg, IV, ONE TIME ONLY, 1 dose, On Sun08/09/15 at 1400, Routine Given 08/09/2015 1:53 PM ASSISTANT OCEANOGRAPHER 4 mg sodium chloride 0.9% bolus solution 1,000 mL 1,000 mL, IV, ONE TIME ONLY, 1 dose, On Sun08/09/15 at 1045, at 2,000 mL/hr, Administer over 30 Minutes, Routine New Bag 08/09/2015 10:54 AM ASSISTANT OCEANOGRAPHER 1,000 mL 2000 mL/hr documented in this encounter Active and Recently Administered Medications Times are shown in ASSISTANT OCEANOGRAPHER. Scheduled Medication Order 08/07/2015 08/08/2015 08/09/2015 ioversol (OPTIRAY 320) 320 mg iodine/mL syringe 125 mL (COMPLETED) 125 mL, IV, INTRA-PROCEDURE ONCE, 1 dose, Starting on Sun08/09/15 at 1242, Until Sun08/09/15 at 1242 1242 (Given - Provid er: Nat Babcock, RT) LORazepam (ATIVAN) 2 mg/mL injection 0.5 mg (COMPLETED) 0.5 mg, IV, ONE TIME ONLY, 1 dose, On Sun08/09/15 at 1130, Stat 1132 (Given - Provid er: Jackie Black RN) morphine 4 mg/mL injection 4 mg (COMPLETED) 4 mg, IV, ONE TIME ONLY, 1 dose, On Sun08/09/15 at 1045, Routine 1053 (Given - Provid er: Jackie Black RN) morphine 4 mg/mL injection 4 mg (COMPLETED) 4 mg, IV, ONE TIME ONLY, 1 dose, On Sun08/09/15 at 1130, Stat 1131 (Given - Provid er: Jackie Black, JACK) morphine 4 mg/mL injection 4 mg (COMPLETED) 4 mg, IV, ONE TIME ONLY, 1 dose, On Sun08/09/15 at 1400, Routine 1353 (Given - Provid er: Eli Peterson RN) sodium chloride 0.9% bolus solution 1,000 mL (COMPLETED) 1,000 mL, IV, ONE TIME ONLY, 1 dose, On Sun08/09/15 at 1045, at 2,000 mL/hr, Administer over 30 Minutes, Routine 1054 (New Bag - Prov ider: Jackie Black RN)1318 (Stopped - Provider: Jackie Black RN) documented in this encounter Care Teams Rf Engineer Relationship Specialty Start Date End Date Hilda Eden FNP [address] [place] [address] PCP - General NURSE PRACTITIONER 07/13/13 01/05/18 documented as of this encounter
--- OUTSIDE RECORDS SUMMARY | 2024-08-03 01:43 | XMS_ITS | Encounter Summary ---
Author Organization [facility] Address [address] [place] [address] Care Team Providers Care Condominium Association Manager Name Role Phone Unavailable Primary Care Provider Unavailabl e Reason for Visit * Auth/Cert - Closed Specialty Diagnoses / Procedures Referred By Reva t Referred To Contact Obstetrics Diagnoses abd pain Zzzstlo Antepartum [address] [place] [address] Referral ID Status Reason Start Date Expiration Date Visits Re quested Visits Authorized [id number] Closed 10/04/2010 04/02/2011 1 Encounter Details Date Type Department Care Team (Latest Contact Info) Description 10/21/2010 5:28 PM STEAM TRAP MAN - 10/21/2010 6:45 PM STEAM TRAP MAN Hospital Encounter [facility] OB Triage [address] [place] [address] [place] [address] [place] [address] Discharge Disposition: Home or Self [...] Sign Reading Time Taken Comments Blood Pressure 124/74 10/21/2010 5:54 PM STEAM TRAP MAN Pulse 84 10/21/2010 5:54 PM STEAM TRAP MAN Temperature 35.7 ??C (96.3 ??F) 10/21/2010 5:54 PM CS T Respiratory Rate 20 10/21/2010 5:54 PM STEAM TRAP MAN Oxygen Saturation - - Inhaled Oxygen Concentration - - Weight 103.4 kg (228 lb) 10/21/2010 5:54 PM STEAM TRAP MAN Height 167.6 cm (5' 6 ) 10/21/2010 5:54 PM STEAM TRAP MAN Body Mass Index 36.8 10/21/2010 5:54 PM STEAM TRAP MAN documented in this encounter Discharge Instructions * Discharge Instructions* Vera Tesfaye RN - 10/21/2010 6:42 PM STEAM TRAP MAN Prescriptions: Prescriptions given? No Return to Labor and Delivery or notify your physician regarding: Contractions: Call MD if any questions Vaginal Bleeding: A small amount of spotting [...] face, hands, or feet. Additional Instructions: Keep scheduled appointment Activity: Your activity level is no restrictions and no smoking. If you smoke you are advised to quit. Ask your health care provider for advice if you need assistance to stop smoking. Avoid second-hand smoke exposure and do not let people smoke in your home. Diet: Your diet is regular M TRAP MAN documented in this encounter Medications at Time of Discharge Medication Sig Dispensed Refills Start Date End Date ibuprofen (MOTRIN) 600 mg Oral tablet Take [...] daily. 02/03/2017 documented as of this encounter H&P Notes * Alona Weeks SILICA SPRAY MIXER - 10/21/2010 6:17 PM CST OB H&P HPI Veratristan Purdy is a 25 y.o. female with 32w4d weeks gestation. Presents to the Women's Evaluation Unit for occ contractions and possible mucous plug discharge. Patient reports: No bleeding, no leaking, normal movement. She noticed thick mucous discharge earlier today. Also increased vaginal pressure. Possible tightening every 20 min. Her primary director of rehabilitative services is Dr. Meza. Present Denies complications. OB History Grav Para Term Abortions TAB SAB Ect Mult Living 3 0 0 0 2 0 2 0 0 0 # Outc Date GA Lbr Sameer/2nd Wgt Sex Del Anes PTL Lv 1 2007 2 2009 3 CUR Patient Active Hospital Problem List: * No active hospital problems. * Past Medical History Diagnosis Date ??? Patient denies relevant medical history ??? MRSA (methicillin resistant Staphylococcus aureus) 08/2009 cysts on leg, never cultured-told it was staph and was given medication Past Surgical History Procedure Date ??? Hx ear surgery ??? Hx cholecystectomy 02/2010 History Social History ??? Marital Status: Single Spouse Name: N/A Number of Children: N/A ??? Years of Education: N/A Occupational History ??? Not on file. Social History Main Topics ??? Smoking status: Current Everyday Smoker -- 0.5 packs/day for 10 years Types: Cigarettes ??? Smokeless tobacco: Never Used ??? Alcohol Use: No ??? Drug Use: No ??? Sexually Active: Yes -- Male partner(s) Other Topics Concern ??? Not on file Social History Narrative ??? No narrative on file Family History Problem Relation Age of Onset ??? Diabetes Father ??? Thyroid Disease Father ??? Hypertension Mother ??? Diabetes Brother GYNHX:Denies HSV No Known Allergies Prescriptions prior to admission Medication Sig Dispense Refill ??? vit-iron fumarate-FA ( VITAMIN) 27-0.8 mg Oral Tab Take 1 Tab by mouth daily. The above has been reviewed with the patient & documented in the electronic record. Review of Systems No fever, SOB, dysuria, or GI complaints Exam: Filed Vitals: 10/21/2010 5:54 PM BP: 124/74 Pulse: 84 Temp: 96.3 ??F (35.7 ??C) TempSrc: Oral Resp: 20 Height: 5' 6 (1.676 m) Weight: 228 lb (103.42 kg) General: alert, no distress Lungs: clear to auscultation bilaterally Heart: Regular rate & rhythm, no murmur Abdomen: Soft, gravid, no fundal tenderness Extremities: Normal FHT: 130 BPM reactive; toco: No contractions noted Cervix: Dilation: closed Effacement: thick Station: Lab Review: Sterile Speculum Exam: no pooling of fluid seen, Ferning test is negative, wet prep results: no pathogens Results for orders placed during the hospital encounter of 10/21/10 (from the past 24 hour(s)) URINALYSIS WITH REFLEX CULTURE Component Value Range ??? URINE CULTURE ORDER Culture ordered URINALYSIS Component Value Range ??? COLOR UA Yellow ??? CLARITY UA Slt. Cloudy (*) Clear ??? SPECIFIC GRAVITY UA 1.008 1.001-1.035 ??? PH UA 6.5 5.0-8.0 ??? LEUKOCYTE ESTERASE UA 1+ (*) Negative ??? NITRITE UA Negative Negative ??? PROTEIN UA Trace (*) Negative ??? GLUCOSE UA Negative Negative ??? KETONES UA 1+ (*) Negative ? ? UROBILINOGEN UA <1 <=1 (mg/dL) ??? BILIRUBIN UA Negative Negative ??? BLOOD UA Negative Negative ??? WBC UA 13 (*) 0-5 (/HPF) ? ? RBC UA <1 0-4 (/HPF) ??? BACTERIA UA 1+ (*) None Seen (/HPF) ??? EPITHELIAL CELLS, URINE Many (/HPF) Assessment: , 32w4d weeks gestation. Here with c/o mucous discharge & vaginal pressure. Status is reassuring -Category 1 tracing, mod variability with accels. UA is contaminated spec, but will go for culture. IMP: Normal exam Plan: Observe in WEU. See Orders. Orders Placed this admission Orders Placed This Encounter ??? Urinalysis with reflex culture ??? Vital signs per protocol ??? Notify physician - blood pressure changes ??? Education, smoking cessation and second hand smoke avoidance ??? Electronic monitoring 1841-Report to Dr. Adames. Will d/c to home. Follow-up as scheduled. Baljinder PHILLIPS- documented in this encounter Miscellaneous Notes * Assessment & Plan Note - Stl Scanning, [facility] - 10/24/2010 4:43 PM CDT * Patient Instructions - Stl Scanning, [facility] - 10/24/2010 4:43 PM CDT documented in this encounter Plan of Treatment Upcoming Encounters Date Type Department Care Team (Late st Contact Info) Description 10/14/2024 11:00 AM STEAM TRAP MAN Office Visit [facility] Oncology and Hematology - [place] [address] [facility] [address] [place] [address] Ubaldo Cardenas MD [address] [facility] [address] [place] [address] documented as of this encounter Procedures Procedure Name Priority Date/Time Associated Diagnosis Comments URINALYSIS WITH REFLEX CULTURE Stat 10/21/2010 5:59 PM STEAM TRAP MAN URINALYSIS W/REFLEX MICROSCOPIC Stat 10/21/2010 5:59 PM STEAM TRAP MAN URINE CULTURE Stat 10/21/2010 5:59 PM STEAM TRAP MAN documented in this encounter Results * URINE CULTURE (10/21/2010 5:59 PM STEAM TRAP MAN) FINAL MICRO REPORT Polymicrobial growth present consistent with urethral stephanie and/or colonizing bacteria. [facility] 10/21/2010 5:59 PM STEAM TRAP MAN 10/21/2010 7:15 PM STEAM TRAP MAN Comment:URINE VOIDED Alona Weeks NP MICROBIOLOGY - GEN ERAL ORDERABLES [facility] CLIA# [id number] [address] [place] [address] * (ABNORMAL) URINALYSIS (10/21/2010 5:59 PM STEAM TRAP MAN) COLOR UA Yellow [facility] CLARITY UA Slt. Cloudy(A) Clear [facility] SPECIFIC GRAVITY UA 1.008 1.001 - 1.035 [facility] PH UA 6.5 5.0 - 8.0 [facility] LEUKOCYTE ESTERASE UA 1+(A) Negative [facility] NITRITE UA Negative Negative [facility] PROTEIN UA Trace(A) Negative [facility] GLUCOSE UA Negative Negative [facility] KETONES UA 1+(A) Negative [facility] UROBILINOGEN UA <1 <=1 mg/dL [facility] BILIRUBIN UA Negative Negative [facility] BLOOD UA Negative Negative [facility] WBC UA 13(H) 0 - 5 /HPF [facility] RBC UA <1 0 - 4 /HPF [facility] BACTERIA UA 1+(A) None Seen /HPF [facility] EPITHELIAL CELLS, URINE Many /HPF [facility] 10/21/2010 5:59 PM STEAM TRAP MAN 10/21/2010 6:20 PM STEAM TRAP MAN Comment:URINE VOIDED Alona Weeks NP URINE ORDERABLES Performing Organization Address [facility] Co de Phone Number [facility] CLIA# [id number] [address] [place] [address] * URINALYSIS WITH REFLEX CULTURE (10/21/2010 5:59 PM STEAM TRAP MAN) URINE CULTURE ORDER Culture ordered [facility] Comment: Criteria for a reflex culture include one or more of the following: ??Abnormal nitrite, leukocyte esterase, WBCs or RBCs. ??Lack of qualifying criteria does not exclude the possiblity of a urinary tract infection. ??Dilute urine, drug interference, etc. may decrease the sensitivity of the criteria analytes. Urine, clean catch 10/21/2010 5:59 PM STEAM TRAP MAN 10/21/2010 6:20 PM STEAM TRAP MAN Comment:URINE VOIDED Alona Weeks NP URINE ORDERABLES Performing Organization Address [facility] Co de Phone Number [facility] CLIA# [id number] [address] [place] [address] documented in this encounter Visit Diagnoses Not on filedocumented in this encounter
--- OUTSIDE RECORDS SUMMARY | 2024-08-03 01:43 | XMS_ITS | Encounter Summary ---
Author Organization [facility] Address [address] [place] [address] Care Team Providers Care Stove Bottom Worker Name Role Phone Unavailable Primary Care Provider Unavailabl e Reason for Visit * Auth/Cert - Closed Specialty Diagnoses / Procedures Referred By Reva t Referred To Contact Obstetrics Diagnoses abd pain [facility] Antepartum [address] [place] [address] Referral ID Status Reason Start Date Expiration Date Visits Re quested Visits Authorized [id number] Closed 10/04/2010 04/02/2011 1 Encounter Details Date Type Department Care Team (Latest Contact Info) Description 10/04/2010 4:54 AM CREDIT NEGOTIATOR - 10/05/2010 11:00 AM CREDIT NEGOTIATOR Hospital Encounter [facility] Antepartum [address] [place] [address] [place] [address] [place] [address] Discharge Disposition: Home or Self Care Social History Tobacco Use Types Packs/Day Years Used Date Smoking Tobacco: Every Day Cigarettes 0.5 10 Alcohol Use Standard Drinks/Week Comments No 0 (1 standard drink = 0.6 oz pur e alcohol) Comments Yes Sex and Gender Information Value Date Recorded Sex Assigned at Not on file Gender Identity Not on file Sexual Orientation Not on file documented as of this encounter Last Filed Vital Signs Vital Sign Reading Time Taken Comments Blood Pressure 120/70 10/05/2010 8:18 AM CREDIT NEGOTIATOR Pulse 68 10/05/2010 8:18 AM CREDIT NEGOTIATOR Temperature 35.3 ??C (95.5 ??F) 10/05/2010 8:18 AM CS T Respiratory Rate 20 10/05/2010 8:18 AM CREDIT NEGOTIATOR Oxygen Saturation 96% 10/04/2010 6:40 AM CREDIT NEGOTIATOR Inhaled Oxygen Concentration - - Weight 105.2 kg (232 lb) 10/05/2010 8:18 AM CREDIT NEGOTIATOR Height 167.6 cm (5' 6 ) 10/04/2010 5:56 AM CREDIT NEGOTIATOR Body Mass Index 37.45 10/04/2010 5:56 AM CREDIT NEGOTIATOR documented in this encounter Discharge Summaries * Keo Meza MD - 10/05/2010 10:24 AM CST third trimester with severe abdominal pain Hospital course. Admitted and evaluated for rlq pain felt to me musculoskeletal pain. Pain got better with bedrest and ready for Discharge Discharge Diagnosis 1. Third trimeste with reassuring fhts and Ultrasound 2. Musculoskeletal pain of . Better at discharge IT NEGOTIATOR documented in this encounter Discharge Instructions * Discharge Instructions* Neena Pettit RN - 10/05/2010 10:39 AM CREDIT NEGOTIATOR Prescriptions: Prescriptions given? No Return to Labor and Delivery or notify your physician regarding: Contractions: if having greater than 6 contractions per hour. Vaginal Bleeding: A small amount of spotting [...] of face, hands, or feet. Additional Instructions: Return to office to see Dr Meza Activity: Your activity level is increase activity as tolerated and no smoking. If you smoke you are advised to quit. Ask your health care provider for advice if you need assistance to stop smoking. Avoid second-hand smoke exposure and do not let people smoke in your home. Diet: Your diet is regular IT NEGOTIATOR documented in this encounter Medications at Time of Discharge Medication Sig Dispensed Refills Start Date End Date vit-iron fumarate-FA ( VITAMIN) 27-0.8 mg Oral Tab Take 1 Tab by mouth daily. 02/03/2017 documented as of this encounter Progress Notes * Neena Pettit RN - 10/05/2010 11:00 AM CST Patient seen by Dr. Meza, discharge instructions and follow up discussed. No distress noted, denies complaints of pain or discomfort at this time. Discharge instructions and follow up reviewed andpatient ambulated to exit for discharge. IT NEGOTIATOR documented in this encounter H&P Notes * Kiki Moreno, - 10/04/2010 6:16 AM CST CC: RLQ pain HPI: Vera is a 25yo at 30w1d by 6wk u/s. Presents to [facility] for evaluation of RLQ pain. Painstarted on Sunday morning while brushing teeth. It is in deep RLQ with occasional pain noted higherin abdomen along right uterus. States similar to when she needed her gallbladder out. She has constant dull aching pain with waves of increased intensity. At most q15min, however currently much more rare. She denies noting any provoking actions or any alleviating actions. She denies fevers/chills, hilton/vis change/ n/v/d/constipation, dysuria. She was started on Macrobid 2 days ago for UTI. Denies regular contractions. NO lof/vb. +FM. Pain not worsened by movement. Past OB/G SAB 2007, 2009. No D+C No abn paps, STI's PMH: Denies PSH: Germán Jacquelin 02/2010 Meds: Percocet, Macrobid, PNV No Known Allergies SH: 1/2 ppd, No EtOH, No illicits FH: NC ROS As above Filed Vitals: 10/04/2010 5:28 AM 10/04/2010 5:56 AM BP: 135/72 Pulse: 86 Temp: 97.2 ??F (36.2 ??C) TempSrc: Oral Resp: 18 Height: 5' 6 (1.676 m) Weight: 230 lb (104.327 kg) WDWN female in NAD Heart: RRR without murmur Lungs: CTAB without crackles/wheezes/ronchi Abd: obese, gravid, soft. Tenderness to Deep palpation in lower right quadrant/groin. Muscle spasm with palpation. Ext: no edema/clubbing/cyanosis. DTR 1+ b/l SVE: Def FHR: 145/mod godfrey/no decels +accels [place]: Rare BSUS: Vtx/ AGA 30w2d, 3#1oz/ NATHAN 18cm/ placenta posterior. Unable to visualize ovary. Results for orders placed during the hospital encounter of 10/04/10 (from the past 4 hour(s)) AMYLASE Collection Time 10/04/10 5:50 AM Component Value Range ??? AMYLASE 39 28-100 (U/L) LIPASE Collection Time 10/04/10 5:50 AM Component Value Range ??? LIPASE 64 (*) 13-60 (U/L) CBC WITH DIFFERENTIAL Collection Time 10/04/10 5:50 AM Component Value Range ??? WBC 10.2 (*) 4.0-9.8 (K/uL) ??? RBC 4.32 3.90-4.90 (M/uL) ??? HEMOGLOBIN 12.9 11.8-14.8 (g/dL) ??? HEMATOCRIT 37.1 35.5-44.0 (%) ??? MCV 85.9 82.0-99.0 (fL) ??? MCH 29.9 27.2-32.6 (pg) ??? MCHC 34.8 31.5-35.5 (%) ??? PLATELETS 234 140-350 (K/uL) ??? MPV 9.7 9.3-12.4 (fL) ??? RDW 13.5 11.5-14.5 (%) ??? RDW-STDEV 42.0 37.1-48.7 (fL) ??? NEUTROPHILS 77 (*) 45-70 (%) ??? LYMPHOCYTES 17 16-45 (%) ??? MONOCYTES 6 3-13 (%) ??? EOSINOPHILS 1 0-7 (%) ??? BASOPHILS 0 0-2 (%) ??? NEUTROPHIL ABSOLUTE 7.78 (*) 1.90-7.00 (K/uL) ??? LYMPHOCYTE ABSOLUTE 1.70 0.70-4.50 (K/uL) ??? MONOCYTE ABSOLUTE 0.60 0.10-1.30 (K/uL) ??? EOSINOPHIL ABSOLUTE 0.08 0.00-0.70 (K/uL) ??? BASOPHILS ABSOLUTE 0.01 0.00-0.20 (K/uL) C-REACTIVE PROTEIN Collection Time 10/04/10 5:50 AM Component Value Range ??? CRP 0.8 0.0-0.8 (mg/dL) COMPREHENSIVE METABOLIC PANEL Collection Time 10/04/10 5:50 AM Component Value Range ??? SODIUM 138 135-145 (mmol/L) ??? POTASSIUM 2.8 (*) 3.5-4.9 (mmol/L) ??? CHLORIDE 103 96-108 (mmol/L) ??? CO2 21 (*) 22-30 (mmol/L) ??? CALCIUM 9.5 8.6-10.2 (mg/dL) ??? BUN 4 (*) 6-20 (mg/dL) ??? CREATININE 0.44 (*) 0.51-0.95 (mg/dL) ??? GLUCOSE 98 65-99 (mg/dL) ??? TOTAL PROTEIN 7.0 6.3-8.6 (g/dL) ??? ALBUMIN 3.7 3.4-4.8 (g/dL) ??? BILIRUBIN TOTAL 0.2 0.2-1.0 (mg/dL) ??? ALKALINE PHOSPHATASE 227 (*) 35-104 (U/L) ??? AST 23 12-32 (U/L) ??? ALT 36 (*) 0-31 (U/L) ? ? GFR, >60 >=60 (mL/min/1.7 sq meter) ? ? GFR >60 >=60 (mL/min/1.7 sq meter) TYPE AND SCREEN Collection Time 10/04/10 6:00 AM Component Value Range ??? HISTORY CHECK History Checked ??? SPECIMEN LIFE 3 days from drawdate ??? ABO/RH TYPE B Positive Results for orders placed during the hospital encounter of 10/02/10 (from the past 4 hour(s)) STREPTOCOCCUS GROUP B CULTURE Collection Time 10/02/10 4:43 PM Component Value Range ??? FINAL MICRO REPORT No Streptococcus Group B isolated. A/P 25yo at 30w1d 1. RLQ pain - appears musculoskeletal in origin. No acute abdomen -No leukocytosis or increase in CRP -Consider short course of flexeril, belly band 2. Mildly elevated AST/Lipase -No mid-epigastric pain, not worsened by meals. Little suspicion for intra-CBD stone -h/o lap jacquelin 3. Hypokalemia -Replace with KCL 40mEQ x2 -No obvious causes 4. +BV - flagyl 5. Urine Culture: Polymicrobial growth, stop macrobid 6. FWB - bsus aga, appropriate fluid, no intrauterine causes of pain noted -Dopple q shift 7. MFM Consult - Dr. Ryder made aware Will admit to Antepartum for observation. Bedrest, Tylenol prn, SCD's D/W Dr. Derrick Moreno, IT NEGOTIATOR documented in this encounter Procedure Notes * Stl Scanning, Him - 10/10/2010 9:56 AM CSTAssociated Order(s): US OB 14+ WKS SINGLE GEST documented in this encounter Consult Notes * Trey Ryder MD - 10/04/2010 12:44 PM CSTAssociated Order(s): IP CONSULT TO PERINATOLOGY MATERNAL MEDICINE CONSULT Vera Purdy is a 25 y.o. female 30w1d admitted for evaluation of RLQ pain. Pain started on Sunday morning while brushing teeth. It is in deep RLQ with occasional pain noted higher in abdomen along right uterus. States similar to when she needed her gallbladder out. She has constant dull aching pain with waves of increased intensity. At most q15min, however currently much more rare. She deniesnoting any provoking actions or any alleviating actions. She denies fevers/chills, hilton/vis change/ n/v/d/constipation, dysuria. She was started on Macrobid 2 days ago for UTI. Pt complaints: some continued pain. denies uterine contractions, vaginal bleeding, leaking of fluid. Report normal movements. Past OB/G SAB 2007, 2009. No D+C No abn paps, STI's PMH: Denies PSH: Lap Jacquelin 02/2010 Meds: Percocet, Macrobid, PNV No Known Allergies SH: 1/2 ppd, No EtOH, No illicits FH: NC ROS As above EXAM; BP 120/70 Pulse 72 Temp(Src) 98.1 ??F (36.7 ??C) (Oral) Resp 24 Ht 5' 6 (1.676 m) Wt 230lb (104.327 kg) BMI 37.12 kg/m2 SpO2 96% Results for orders placed during the hospital encounter of 10/04/10 (from the past 24 hour(s)) AMYLASE Component Value Range ??? AMYLASE 39 28-100 (U/L) LIPASE Component Value Range ??? LIPASE 64 (*) 13-60 (U/L) CBC WITH DIFFERENTIAL Component Value Range ??? WBC 10.2 (*) 4.0-9.8 (K/uL) ??? RBC 4.32 3.90-4.90 (M/uL) ??? HEMOGLOBIN 12.9 11.8-14.8 (g/dL) ??? HEMATOCRIT 37.1 35.5-44.0 (%) ??? MCV 85.9 82.0-99.0 (fL) ??? MCH 29.9 27.2-32.6 (pg) ??? MCHC 34.8 31.5-35.5 (%) ??? PLATELETS 234 140-350 (K/uL) ??? MPV 9.7 9.3-12.4 (fL) ??? RDW 13.5 11.5-14.5 (%) ??? RDW-STDEV 42.0 37.1-48.7 (fL) ??? NEUTROPHILS 77 (*) 45-70 (%) ??? LYMPHOCYTES 17 16-45 (%) ??? MONOCYTES 6 3-13 (%) ??? EOSINOPHILS 1 0-7 (%) ??? BASOPHILS 0 0-2 (%) ??? NEUTROPHIL ABSOLUTE 7.78 (*) 1.90-7.00 (K/uL) ??? LYMPHOCYTE ABSOLUTE 1.70 0.70-4.50 (K/uL) ??? MONOCYTE ABSOLUTE 0.60 0.10-1.30 (K/uL) ??? EOSINOPHIL ABSOLUTE 0.08 0.00-0.70 (K/uL) ??? BASOPHILS ABSOLUTE 0.01 0.00-0.20 (K/uL) C-REACTIVE PROTEIN Component Value Range ??? CRP 0.8 0.0-0.8 (mg/dL) COMPREHENSIVE METABOLIC PANEL Component Value Range ??? SODIUM 138 135-145 (mmol/L) ??? POTASSIUM 2.8 (*) 3.5-4.9 (mmol/L) ??? CHLORIDE 103 96-108 (mmol/L) ??? CO2 21 (*) 22-30 (mmol/L) ??? CALCIUM 9.5 8.6-10.2 (mg/dL) ??? BUN 4 (*) 6-20 (mg/dL) ??? CREATININE 0.44 (*) 0.51-0.95 (mg/dL) ??? GLUCOSE 98 65-99 (mg/dL) ??? TOTAL PROTEIN 7.0 6.3-8.6 (g/dL) ??? ALBUMIN 3.7 3.4-4.8 (g/dL) ??? BILIRUBIN TOTAL 0.2 0.2-1.0 (mg/dL) ??? ALKALINE PHOSPHATASE 227 (*) 35-104 (U/L) ??? AST 23 12-32 (U/L) ??? ALT 36 (*) 0-31 (U/L) ? ? GFR, >60 >=60 (mL/min/1.7 sq meter) ? ? GFR >60 >=60 (mL/min/1.7 sq meter) TYPE AND SCREEN Component Value Range ??? HISTORY CHECK History Checked ??? SPECIMEN LIFE 3 days from drawdate ??? ABO/RH TYPE B Positive ??? ANTIBODY SCREEN Negative General appearance: alert, in no distress Lungs: clear to auscultation bilaterally, normal respiratory effort Heart: normal rate, regular rhythm, normal S1, S2, no murmurs, rubs, clicks or gallops Abdomen: Soft, non-tender. Bowel sounds normal. No masses, no organomegaly. Fundus is size appropriate for dates and nontender. Extremities: extremities normal, atraumatic, no cyanosis or edema, moves all extremities equally, no edema, redness or tenderness in the calves or thighs, normal strength, normal tone US PNC; S=D, nml fluid, no obvious placental abnormality, Adnexa unremarkable. Assessment/Plan: 30w1d with reassuring maternal and status. RLQ pain, unclear etio. No evidence chorio, appy, torsion. Ligamentous seems most likely. REC: Decrease activity, mild analgesic (tylenol) and observe. If not worse tis heavenly, consider D/C tohome. Out of work rest of week. Readmit and reeval if increasing pain or fever. Trey Ryder MD [facility]. IT NEGOTIATOR documented in this encounter Miscellaneous Notes * Scanned Form - [facility] Scanning, [facility] - 10/07/2010 9:17 AM CREDIT NEGOTIATOR * Scanned Form - [facility], [facility] - 10/06/2010 10:50 AM CREDIT NEGOTIATOR * Scanned Form - [facility], [facility] - 10/06/2010 10:50 AM CREDIT NEGOTIATOR * Assessment & Plan Note - [facility] Sc[facility], [facility] - 10/06/2010 10:50 AM CREDIT NEGOTIATOR * Patient Instructions - Stl Scanning, [facility] 10/06/2010 10:50 AM CREDIT NEGOTIATOR documented in this encounter Plan of Treatment Upcoming Encounters Date Type Department Care Team (Late st Contact Info) Description 10/14/2024 11:00 AM CREDIT NEGOTIATOR Office Visit [facility] Oncology and Hematology - [place] [address] [place] [address] Ubaldo Cardenas MD [address] [facility] [address] [place] [address] documented as of this encounter Procedures Procedure Name Priority Date/Time Associated Diagnosis Comments US OB 14+ WKS SINGLE GEST Routine 10/04/2010 10:45 AM CREDIT NEGOTIATOR TYPE AND SCREEN Stat 10/04/2010 6:00 AM CREDIT NEGOTIATOR CBC WITH DIFFERENTIAL Stat 10/04/2010 5:50 AM CREDIT NEGOTIATOR C-REACTIVE PROTEIN Stat 10/04/2010 5: 50 AM CREDIT NEGOTIATOR LIPASE Stat 10/04/2010 5:50 AM CREDIT NEGOTIATOR AMYLASE Stat 10/04/2010 5:50 AM CREDIT NEGOTIATOR COMPREHENSIVE METABOLIC PANEL Stat 10/04/2010 5:50 AM CREDIT NEGOTIATOR documented in this encounter Results * US OB 14+ WKS SINGLE GEST (10/04/2010 10:45 AM CREDIT NEGOTIATOR) Anatomical Region Laterality Modality Pelvis Ultrasound Narrative Transcriptions [facility] Scanning, [facility] - 10/10/2010 9:56 AM CREDIT NEGOTIATOR Tati Arango MD US ORDERABLES * TYPE AND SCREEN (10/04/2010 6:00 AM CREDIT NEGOTIATOR) HISTORY CHECK History Checked [facility] SPECIMEN LIFE 3 days from drawdate [facility] ABO/RH TYPE B Positive [facility] ANTIBODY SCREEN Negative [facility] Blood specimen (specimen) 10/04/2010 6:00 AM CREDIT NEGOTIATOR 10/04/2010 5:58 AM CREDIT NEGOTIATOR Kiki Elizondo Yaakovradha BLOOD BANK ORDERABLE S INTERFACE SYSTEM Refer to clinic/hospital department [facility] CLIA# [id number] [address], [place] [address] * (ABNORMAL) COMPREHENSIVE METABOLIC PANEL (10/04/2010 5:50 AM CREDIT NEGOTIATOR) SODIUM 138 135 - 145 mmol/L [facility] POTASSIUM 2.8(L) 3.5 - 4.9 mmol/L [facility] CHLORIDE 103 96 - 108 mmol/L [facility] CO2 21(L) 22 - 30 mmol/L [facility] CALCIUM 9.5 8.6 - 10.2 mg/dL [facility] BUN 4(L) 6 - 20 mg/dL [facility] CREATININE 0.44(L) 0.51 - 0.95 mg/dL [facility] GLUCOSE 98 65 - 99 mg/dL [facility] TOTAL PROTEIN 7.0 6.3 - 8.6 g/dL [facility] ALBUMIN 3.7 3.4 - 4.8 g/dL [facility] BILIRUBIN TOTAL 0.2 0.2 - 1.0 mg/dL [facility] ALKALINE PHOSPHATASE 227(H) 35 - 104 U/L [facility] AST 23 12 - 32 U/L [facility] ALT 36(H) 0 - 31 U/L [facility] GFR, >60 >=60 mL/min/1. 7 sq meter [facility] GFR >60 >=60 mL/min/1. 7 sq meter [facility] Comment: Modification of Diet in Renal Disease (MDRD) study formula. Estimated GFR rate interpretative information for both Americans and non- Americans is available on the [facility] Intranet at: [email or web address] Select: Lab Policies and Procedures Select: Reference Ranges - GFR Blood specimen (specimen) 10/04/2010 5:50 AM CREDIT NEGOTIATOR 10/04/2010 5:58 AM CREDIT NEGOTIATOR Kiki Mikhail Moreno DO CHEMISTRY ORDERABLES Performing Organization Address City/[facility] Co de Phone Number [facility] CLIA# [id number] [address] [place] [address] * C-REACTIVE PROTEIN (10/04/2010 5:50 AM CREDIT NEGOTIATOR) Pathologist [facility] CRP 0.8 0.0 - 0.8 mg/dL [facility] Blood specimen (specimen) 10/04/2010 5:50 AM CREDIT NEGOTIATOR 10/04/2010 5:58 AM CREDIT NEGOTIATOR Kiki Mikhail Moreno DO CHEMISTRY ORDERABLES Performing Organization Address City/[facility] Co de Phone Number [facility] CLIA# [id number] [address] [place] [address] * (ABNORMAL) CBC WITH DIFFERENTIAL (10/04/2010 5:50 AM CREDIT NEGOTIATOR) WBC 10.2(H) 4.0 - 9.8 K/uL [facility] RBC 4.32 3.90 - 4.90 M/uL [facility] HEMOGLOBIN 12.9 11.8 - 14.8 g/dL [facility] HEMATOCRIT 37.1 35.5 - 44.0 % [facility] MCV 85.9 82.0 - 99.0 fL [facility] MCH 29.9 27.2 - 32.6 pg [facility] MCHC 34.8 31.5 - 35.5 % [facility] PLATELETS 234 140 - 350 K/uL [facility] MPV 9.7 9.3 - 12.4 fL [facility] RDW 13.5 11.5 - 14.5 % [facility] RDW-STDEV 42.0 37.1 - 48.7 fL [facility] NEUTROPHILS 77(H) 45 - 70 % [facility] LYMPHOCYTES 17 16 - 45 % [facility] MONOCYTES 6 3 - 13 % [facility] EOSINOPHILS 1 0 - 7 % [facility] BASOPHILS 0 0 - 2 % [facility] NEUTROPHIL ABSOLUTE 7.78(H) 1.90 - 7.00 K/uL [facility] LYMPHOCYTE ABSOLUTE 1.70 0.70 - 4.50 K/uL [facility] MONOCYTE ABSOLUTE 0.60 0.10 - 1.30 K/uL [facility] EOSINOPHIL ABSOLUTE 0.08 0.00 - 0.70 K/uL [facility] BASOPHILS ABSOLUTE 0.01 0.00 - 0.20 K/uL [facility] Blood specimen (specimen) 10/04/2010 5:50 AM CREDIT NEGOTIATOR 10/04/2010 5:58 AM CREDIT NEGOTIATOR Kiki Moreno DO HEMATOLOGY ORDERABLE S [facility] CLIA# [id number] [address] [place] [address] * (ABNORMAL) LIPASE (10/04/2010 5:50 AM CREDIT NEGOTIATOR) LIPASE 64(H) 13 - 60 U/L [facility] Blood specimen (specimen) 10/04/2010 5:50 AM CREDIT NEGOTIATOR 10/04/2010 5:58 AM CREDIT NEGOTIATOR Kiki Moreno DO CHEMISTRY ORDERABLES [facility] CLIA# [id number] [address] [place] [address] * AMYLASE (10/04/2010 5:50 AM CREDIT NEGOTIATOR) AMYLASE 39 28 - 100 U/L [facility] Blood specimen (specimen) 10/04/2010 5:50 AM CREDIT NEGOTIATOR 10/04/2010 5:58 AM CREDIT NEGOTIATOR Kiki Moreno DO CHEMISTRY ORDERABLES Performing Organization Address [facility] Co de Phone Number [facility] CLIA# [id number] [address] [place] [address] documented in this encounter Visit Diagnoses Not on filedocumented in this encounter Administered Medications Inactive Administered Medications - up to 3 most recent administrations Medication Order MAR Action Action Date Dose Rate Site acetaminophen (TYLENOL) tablet 650 mg 650 mg, Oral, EVERY 6 HOURS PRN, Starting on Sun10/04/10 at 0639, Until Sun10/05/10 at 1322, Pain, Routine Given 10/05/2010 6:50 AM CREDIT NEGOTIATOR 650 mg Given 10/04/2010 3:57 PM CREDIT NEGOTIATOR 650 mg Given 10/04/2010 9:33 AM CREDIT NEGOTIATOR 650 mg ALUM-MAG HYDROXIDE-SIMETH 200 MG-200 MG-20 MG/5 ML ORAL SUSP 1 dose, Starting on Sun10/04/10 at 0606, Until Sun10/04/10 at 0607, [place] OMNICELL: Cabinet Override aluminum - magnesium - simethicone (MYLANTA) 200-200-20 mg/5 mL oral suspension 30 mL 30 mL, Oral, ONE TIME ONLY, 1 dose, On Sun10/04/10 at 0615, Routine Given 10/04/2010 6:07 AM CREDIT NEGOTIATOR 30 mL famotidine (PEPCID) tablet 20 mg 20 mg, Oral, TWO TIMES DAILY, First dose on Sun10/04/10 at 0900, Until Discontinued, Routine Given 10/05/2010 9:26 AM CREDIT NEGOTIATOR 20 mg Given 10/04/2010 8:00 PM CREDIT NEGOTIATOR 20 mg Given 10/04/2010 8:24 AM CREDIT NEGOTIATOR 20 mg metroNIDAZOLE (FLAGYL) IVPB 500 mg 500 mg, IV, TWO TIMES DAILY, 14 doses, First dose on Sun10/04/10 at 0900, Last dose on Sun10/10/10 at 2100, Routine New Bag 10/05/2010 9:28 AM CREDIT NEGOTIATOR 500 mg mL/hr New Bag 10/04/2010 8:00 PM CREDIT NEGOTIATOR 500 mg mL/hr New Bag 10/04/2010 8:25 AM CREDIT NEGOTIATOR 500 mg mL/hr potassium chloride (KLOR-CON) 20 mEq powder 40 mEq 40 mEq, Oral, TWO TIMES DAILY, 2 doses, First dose on Sun10/04/10 at 0900, Last dose on Sun10/04/10 at 2100, Routine Given 10/04/2010 8:00 PM CREDIT NEGOTIATOR 40 mEq Given 10/04/2010 12:33 PM CREDIT NEGOTIATOR 40 mEq vit-iron fumarate-fa (HECTOR ) 28-0.8 mg per tablet 1 Tab 1 Tablet, Oral, DAILY, First dose on Sun10/04/10 at 0900, Until Discontinued, Routine Given 10/05/2010 9:26 AM CREDIT NEGOTIATOR 1 Tablet Given 10/04/2010 8:25 AM CREDIT NEGOTIATOR 1 Tablet documented in this encounter Active and Recently Administered Medications Times are shown in CREDIT NEGOTIATOR. Scheduled Medication Order 10/03/2010 10/04/2010 10/05/2010 aluminum - magnesium - simethicone (MYLANTA) 200-200-20 mg/5 mL oral suspension 30 mL (COMPLETED) 30 mL, Oral, ONE TIME ONLY, 1 dose, On Sun10/04/10 at 0615, Routine 0607 (Given - Provider: Carmen Mabry RN) famotidine (PEPCID) tablet 20 mg (CANCELED) 20 mg, Oral, TWO TIMES DAILY, First dose on Sun10/04/10 at 0900, Until Discontinued, Routine 0824 (Given - Provider: Michelle Sparks, JACK)1999 (Given - Provider: Mary Cuellar RN) 09 (Given - Provider: Neena Pettit RN) metroNIDAZOLE (FLAGYL) IVPB 500 mg (CANCELED) 500 mg, IV, TWO TIMES DAILY, 14 doses, First dose on Sun10/04/10 at 0900, Last dose on Sun10/10/10 at 2100, Routine 0825 (New Bag - Provider: Michelle Sparks RN)0933 (Stopped - Provider: Michelle Sparks RN)1999 (New Bag - Provider: Mary Cuellar, RN) 09 (New Bag - Provider: Neena Pettit, JACK) potassium chloride (KLOR-CON) 20 mEq powder 40 mEq (COMPLETED) 40 mEq, Oral, TWO TIMES DAILY, 2 doses, First dose on Sun10/04/10 at 0900, Last dose on Sun10/04/10 at 2100, Routine 1233 (Given - Provider: Michelle Sparks RN)1999 (Given - Provider: Mary Cuellar, JACK) vit-iron fumarate-fa (HECTOR ) 28-0.8 mg per tablet 1 Tab (CANCELED) 1 Tablet, Oral, DAILY, First dose on Sun10/04/10 at 0900, Until Discontinued, Routine 0825 (Given - Provider: Michelle Sparks RN) 09 (Given - Provider: Neena Pettit, JACK) PRN Medication Order 10/03/2010 10/04/2010 10/05/2010 acetaminophen (TYLENOL) tablet 650 mg (CANCELED) 650 mg, Oral, EVERY 6 HOURS PRN, Starting on Sun10/04/10 at 0639, Until Sun10/05/10 at 1322, Pain, Routine 0933 (Given - Provider: Michelle Sparks RN)1557 (Given - Provider: Michelle Sparks, JACK) 0650 (Given - Provider: Mary Cuellar, JACK) documented in this encounter
--- OUTSIDE RECORDS SUMMARY | 2024-08-03 01:43 | XMS_ITS | Encounter Summary ---
Author Organization [facility] Address [address] [place] [address] Care Team Providers Care Electrostatic Powder Coating Technician Name Role Phone Meng King MD Primary Care Provider [phone] Encounter Details Date Type Department Care Team (Latest Contact Info) Description 10/24/2008 Outpatient Historical HIS [facility] [place] [address] [facility] [address] Acute Upper Respiratory Infections of Unspecified Site; Bronchitis, not Specified as Acute or Chronic; Tobacco Use Disorder; Pure Hypercholesterolemia Social History Tobacco Use Types Packs/Day Years Used Date Smoking Tobacco: Never Assessed Sex and Gender Information Value Date Recorded Sex Assigned at Not on file Gender Identity Not on file Sexual Orientation Not on file documented as of this encounter Plan of Treatment Upcoming Encounters Date Type Department Care Team (Late st Contact Info) Description 10/14/2024 11:00 AM ASSOCIATE MERCHANDISE PLANNER Office Visit [facility] Oncology and Hematology - Alirio [address] [facility] [address] [place] [address] Ubaldo Cardenas MD [address] [facility] [address] [place] [address] documented as of this encounter Visit Diagnoses Diagnosis Acute upper respiratory infections of unspecified site Bronchitis, not specified as acute or chronic Tobacco use disorder Pure hypercholesterolemia documented in this encounter Additional Health Concerns Infection Onset Date Last Indicated Resolved Time COVID-19 08/24/2020 08/24/2020 09/23/2020 1:16 AM ASSOCIATE MERCHANDISE PLANNER documented as of this encounter Care Teams Electrostatic Powder Coating Technician Relationship Specialty Start Date End Date Meng King MD [address] [place] [phone] PCP - General Family Practice 11/15/23 documented as of this encounter
--- OUTSIDE RECORDS SUMMARY | 2024-08-03 01:43 | XMS_ITS | Encounter Summary ---
Author Organization [facility] Address [address] [place] [address] Care Team Providers Care Distance Education Teacher Name Role Phone Meng King MD Primary Care Provider [phone] Encounter Details Date Type Department Care Team (Late st Contact Info) Description 10/24/2004 Outpatient Historical [facility] Landon aYdav [place] [facility] [place] [address] Er, Authorized P NO ADDRESS ON FILE LOWER LEG INJURY NOS (Primary Dx) Social History Tobacco Use Types Packs/Day Years Used Date Smoking Tobacco: Never Assessed Sex and Gender Information Value Date Recorded Sex Assigned at Not on file Gender Identity Not on file Sexual Orientation Not on file documented as of this encounter Plan of Treatment Upcoming Encounters Date Type Department Care Team (Late st Contact Info) Description 10/14/2024 11:00 AM PINBALL MACHINE REPAIRER Office Visit [facility] Oncology and Hematology - Alirio [address] [facility] [address] [place] [address] Ubaldo Cardenas MD [address] [facility] [address] [place] [address] documented as of this encounter Visit Diagnoses Diagnosis Injury, other and unspecified, knee, leg, ankle, and foot- Primary documented in this encounter Additional Health Concerns Infection Onset Date Last Indicated Resolved Time COVID-19 08/24/2020 08/24/2020 09/23/2020 1:16 AM PINBALL MACHINE REPAIRER documented as of this encounter Care Teams Distance Education Teacher Relationship Specialty Start Date End Date Meng King MD [address] [place] [phone] PCP - General Family Practice 11/15/23 documented as of this encounter
--- OUTSIDE RECORDS SUMMARY | 2024-08-03 01:43 | XMS_ITS | Encounter Summary ---
Author Organization [facility] Address [address] [place] [address] Care Team Providers Care Software Database Architect Name Role Phone Meng King MD Primary Care Provider [phone] Encounter Details Date Type Department Care Team (Late st Contact Info) Description 03/13/2009 Outpatient Historical [facility] Er, Authorized P NO ADDRESS ON FILE Landon Yadav MD [facility] [place], [place] [id number] Threatened , Antepartum; Tobacco Use Disorder Social History Tobacco Use Types Packs/Day Years Used Date Smoking Tobacco: Never Assessed Sex and Gender Information Value Date Recorded Sex Assigned at Not on file Gender Identity Not on file Sexual Orientation Not on file documented as of this encounter Plan of Treatment Upcoming Encounters Date Type Department Care Team (Late st Contact Info) Description 10/14/2024 11:00 AM SAP PORTAL DEVELOPER Office Visit [facility] Oncology and Hematology - Alirio [address] [facility] [address] [place] [address] Ubaldo Cardenas MD [address] [facility] [address] [place] [address] documented as of this encounter Procedures Procedure Name Priority Date/Time Associated Diagnosis Comments ABORH TYPING Routine 03/13/2009 6:32 PM CDT CBC WITH DIFFERENTIAL Stat 03/13/2009 6:30 PM CDT HCG QUANTITATIVE, BLOOD Stat 03/13/2009 6:30 PM CDT documented in this encounter Results * ABORH TYPING (03/13/2009 6:32 PM CDT) HISTORY CHECK No Historical ABO/Rh [facility] SPECIMEN LIFE 3 days from drawdate [facility] ABO/RH TYPE B Positive [facility] Blood specimen (specimen) 03/13/2009 6:32 PM CDT Landon Yadav MD BLOOD BANK ORDERABLE S INTERFACE SYSTEM Refer to clinic/hospital department [facility] CLIA# [id number] [address] [place] [address] * (ABNORMAL) CBC WITH DIFFERENTIAL (03/13/2009 6:30 PM CDT) PLATELETS 301 140 - 350 K/uL [facility] HEMOGLOBIN 15.7(H) 11.8 - 14.8 g/dL [facility] RDW 13.5 11.5 - 14.5 % [facility] WBC 11.9(H) 4.0 - 9.8 K/uL [facility] MCH 29.7 27.2 - 32.6 pg [facility] MPV 8.9(L) 9.3 - 12.4 fL [facility] HEMATOCRIT 44.6(H) 35.5 - 44.0 % [facility] RDW-STDEV 41.1 37.1 - 48.7 fL [facility] RBC 5.28(H) 3.90 - 4.90 M/uL [facility] MCHC 35.2 31.5 - 35.5 % [facility] MCV 84.5 82.0 - 99.0 fL [facility] EOSINOPHILS 1 0 - 7 % [facility] EOSINOPHIL ABSOLUTE 0.17 0.00 - 0.70 K/uL [facility] LYMPHOCYTES 31 16 - 45 % [facility] LYMPHOCYTE ABSOLUTE 3.69 0.70 - 4.50 K/uL [facility] BASOPHILS 0 0 - 2 % [facility] BASOPHILS ABSOLUTE 0.03 0.00 - 0.20 K/uL [facility] MONOCYTES 6 3 - 13 % [facility] MONOCYTE ABSOLUTE 0.66 0.10 - 1.30 K/uL [facility] NEUTROPHILS 62 45 - 70 % [facility] NEUTROPHIL ABSOLUTE 7.36(H) 1.90 - 7.00 K/uL [facility] Blood specimen (specimen) 03/13/2009 6:30 PM CDT 03/13/2009 6:40 PM CDT Landon Yadav MD HEMATOLOGY ORDERABLE S [facility] CLIA# [id number] [address] [facility] [place] [address] * (ABNORMAL) HCG QUANTITATIVE, BLOOD (03/13/2009 6:30 PM CDT) HCG QUANT, BLOOD 39(H) 0 - 5 mIU/mL [facility] Comment: Result of 5 - 25 mIU/mL is indeterminant for , repeat of test recommemded in 48 hours. Reference Range: Gestational Age: 3 ??Weeks ?5.8 - 71.2 ?mIU/mL 4 ??Weeks ?9.5 - 750 ? mIU/mL 5 ??Weeks ?217 - 9766 ?mIU/mL 6 ??Weeks ?158 - 31,795 ?mIU/mL [...] ??Before making a diagnosis of malignancy or etopic ,the result of this test should be confirmed with a urine HCG test and correlated with other clinical evidence. Blood specimen (specimen) 03/13/2009 6:30 PM CDT 03/13/2009 6:40 PM CDT Landon Yadav MD CHEMISTRY ORDERABLES [facility] CLIA# [id number] [address] [place] [address] documented in this encounter Visit Diagnoses Diagnosis Threatened , antepartum Tobacco use disorder documented in this encounter Additional Health Concerns Infection Onset Date Last Indicated Resolved Time COVID-19 08/24/2020 08/24/2020 09/23/2020 1:16 AM SAP PORTAL DEVELOPER documented as of this encounter Care Teams Software Database Architect Relationship Specialty Start Date End Date Meng King MD [address] [place] [address] PCP - General Family Practice 11/15/23 documented as of this encounter
--- OUTSIDE RECORDS SUMMARY | 2024-08-03 01:43 | XMS_ITS | Encounter Summary ---
Author Organization [facility] Address [address] [place] [address] Care Team Providers Care Scrap Cutter Name Role Phone Meng King MD Primary Care Provider [phone] Encounter Details Date Type Department Care Team (Late st Contact Info) Description 09/29/2008 Outpatient Historical HIS [facility] [place] [address] [facility] [place] [address] Social History Tobacco Use Types Packs/Day Years Used Date Smoking Tobacco: Never Assessed Sex and Gender Information Value Date Recorded Sex Assigned at Not on file Gender Identity Not on file Sexual Orientation Not on file documented as of this encounter Plan of Treatment Upcoming Encounters Date Type Department Care Team (Late st Contact Info) Description 10/14/2024 11:00 AM RF MICROWAVE ENGINEER Office Visit [facility] Oncology and Hematology - Alirio [address] [place] [address] [facility] [address] [place] [address] Ubaldo Cardenas MD [address] [facility] [address] [place] [address] documented as of this encounter Procedures Procedure Name Priority Date/Time Associated Diagnosis Comments CBC WITH DIFFERENTIAL Routine 09/29/2008 11:19 AM RF MICROWAVE ENGINEER HCG QUANTITATIVE, BLOOD Routine 09/29/2008 11:19 AM RF MICROWAVE ENGINEER documented in this encounter Results * (ABNORMAL) CBC WITH DIFFERENTIAL (09/29/2008 11:19 AM RF MICROWAVE ENGINEER) HEMATOCRIT 44.3(H) 35.5 - 44.0 % [facility] RDW-STDEV 41.9 37.1 - 48.7 fL [facility] RBC 5.22(H) 3.90 - 4.90 M/uL [facility] MCHC 34.5 31.5 - 35.5 % [facility] MCV 84.9 82.0 - 99.0 fL [facility] PLATELETS 370(H) 140 - 350 K/uL [facility] HEMOGLOBIN 15.3(H) 11.8 - 14.8 g/dL [facility] RDW 13.6 11.5 - 14.5 % [facility] WBC 9.1 4.0 - 9.8 K/uL [facility] MCH 29.3 27.2 - 32.6 pg [facility] MPV 9.5 9.3 - 12.4 fL [facility] BASOPHILS 0 0 - 2 % [facility] BASOPHILS ABSOLUTE 0.02 0.00 - 0.20 K/uL [facility] MONOCYTES 5 3 - 13 % [facility] MONOCYTE ABSOLUTE 0.48 0.10 - 1.30 K/uL [facility] NEUTROPHILS 57 45 - 70 % [facility] NEUTROPHIL ABSOLUTE 5.19 1.90 - 7.00 K/uL [facility] EOSINOPHILS 2 0 - 7 % [facility] EOSINOPHIL ABSOLUTE 0.16 0.00 - 0.70 K/uL [facility] LYMPHOCYTES 35 16 - 45 % [facility] LYMPHOCYTE ABSOLUTE 3.21 0.70 - 4.50 K/uL [facility] Blood specimen (specimen) 09/29/2008 11:19 AM RF MICROWAVE ENGINEER 09/29/2008 4:51 PM RF MICROWAVE ENGINEER Brando Dupont Mai, MD HEMATOLOGY ORDERABLE S INTERFACE SYSTEM Refer to clinic/hospital department [facility] CLIA# [id number] [address] [place] [address] * HCG QUANTITATIVE, BLOOD (09/29/2008 11:19 AM RF MICROWAVE ENGINEER) HCG QUANT, BLOOD <5 0 - 5 mIU/mL [facility] Comment: Result of 5 - 25 mIU/mL is indeterminant for , repeat of test recommemded in 48 hours. Reference Range: Gestational Age: 3 ??Weeks ?5.8 - 71.2 ?mIU/mL 4 ??Weeks ?9.5 - 750 ? mIU/mL 5 ??Weeks ?217 - 8038 ?mIU/mL 6 ??Weeks ?158 - 31,795 ?mIU/mL [...] with other clinical evidence. Blood specimen (specimen) 09/29/2008 11:19 AM RF MICROWAVE ENGINEER 09/29/2008 4:51 PM RF MICROWAVE ENGINEER Brando Dupont Mai, MD CHEMISTRY ORDERABLES Performing Organization Address City/[facility] Co de Phone Number INTERFACE SYSTEM Refer to clinic/hospital department [facility] CLIA# [id number] [address] [place] [address] documented in this encounter Visit Diagnoses Not on filedocumented in this encounter Additional Health Concerns Infection Onset Date Last Indicated Resolved Time COVID-19 08/24/2020 08/24/2020 09/23/2020 1:16 AM RF MICROWAVE ENGINEER documented as of this encounter Care Teams Scrap Cutter Relationship Specialty Start Date End Date Meng King MD [address] [place] [address] PCP - General Family Practice 11/15/23 documented as of this encounter
--- OUTSIDE RECORDS SUMMARY | 2024-08-03 01:43 | XMS_ITS | Encounter Summary ---
Author Organization [facility] Address [address] [place] [address] Care Team Providers Care Data Coder Operator Name Role Phone Unavailable Primary Care Provider Unavailabl e Reason for Visit * Auth/Cert - Closed Specialty Diagnoses / Procedures Referred By Reva t Referred To Contact Obstetrics Diagnoses abd pain Zzzstlo Antepartum [address] [place] [address] Referral ID Status Reason Start Date Expiration Date Visits Re quested Visits Authorized [id number] Closed 10/04/2010 04/02/2011 1 Encounter Details Date Type Department Care Team (Latest Contact Info) Description 11/20/2010 6:30 PM CDT - 11/25/2010 11:49 AM CDT Hospital Encounter [facility] Mother/Baby [address] [place] [address] [place] [address] [place] [address] C section Discharge Disposition: Home or Self Care [...] Sign Reading Time Taken Comments Blood Pressure 124/72 11/25/2010 7:46 AM CDT Pulse 60 11/25/2010 7:46 AM CDT Temperature 36.6 ??C (97.8 ??F) 11/25/2010 7:46 AM CD T Respiratory Rate 20 11/25/2010 7:46 AM CDT Oxygen Saturation 95% 11/21/2010 9:36 PM CDT Inhaled Oxygen Concentration - - Weight 103.9 kg (229 lb) 11/20/2010 6:40 PM CDT Height 167.6 cm (5' 6 ) 11/20/2010 6:40 PM CDT Body Mass Index 36.96 11/20/2010 6:40 PM CDT documented in this encounter Discharge Summaries * Amisha Stein RN - 11/25/2010 10:58 AM CDT Discharge teaching complete. No concerns expressed. Plan of care complete. Consent obtained and TDAP vaccine given. Patient tolerated well. * Keo Meza MD - 11/24/2010 9:29 PM CDT 4Patient: Vera Najera Tunisian / 25 y.o. / female : 1985 Admit date: 11/20/2010 Discharge date: 11/24/2010 Attending Physician: Keo Meza MD Principal and Secondary Diagnoses 1. IUP at 37w0d weeks 2. cpd Principal and Secondary Procedures 1. 1 Low Transverse Pertinent History & Physical See [...] is a stable condition on post-op day #2. Discharge Labs Lab Results Component Value Date WBC 12.5* 11/21/2010 HEMOGLOBIN 12.4 11/21/2010 HEMATOCRIT 36.3 11/21/2010 PLATELETS 259 11/21/2010 MCV 86.8 11/21/2010 Lab Results Component Value Date ABO/RH TYPE B Positive 11/21/2010 Immunization History Administered Date(s) Administered ??? Influenza Vaccine 07/13/2010 Discharge Condition: stable. Disposition She is discharged to home. See discharge instructions. Appropriate instructions were reviewed with the patient including no lifting >10 lbs & nothing per vagina x 6 wks. She'll followup in theoffice in 4 weeks. Discharge Medications Current Discharge Medication List CONTINUE these medications which have NOT CHANGED vit-iron fumarate-FA ( VITAMIN) 27-0.8 mg Oral Tab Take 1 Tab by mouth daily. documented in this encounter Discharge Instructions * Discharge Instructions* Amisha Stein RN - 11/25/2010 10:17 AM CDT ACTIVITY/EXERCISE Recovery is a progressive process. It [...] with each feeding ?? For advice call: [phone] IF BOTTLE FEEDING ?? Avoid breast stimulation, [...] Thoughts of harming yourself or your baby documented in this encounter Medications at Time [...] as of this encounter Progress Notes * Marc Levin DO - 11/25/2010 6:40 AM CDT OB Progress Note Subjective: Pain well controlled with oral medications. Tolerating regular diet and ambulation. Voiding without complaints. No complaints this morning. Objective: Filed Vitals: 11/24/2010 7:00 AM 11/24/2010 4:30 PM 11/24/2010 7:47 PM 11/25/2010 12:15 AM BP: 115/80 110/60 100/72 104/70 Pulse: 61 62 64 70 Temp: 97 ??F (36.1 ??C) 97.3 ??F (36.3 ??C) 97.5 ??F (36.4 ??C) 97.6 ??F (36.4 ??C) TempSrc: Axillary Oral Oral Oral Resp: 18 18 18 18 Height: Weight: SpO2: HEENT: NC, AT Abd: Soft, firm fundus below umbilicus, incision clean/dry/intact Ext: No calf tenderness Assessment/Plan: POD# 4 s/p LTCS 1. Afebrile, hemodynamically stable, doing well. 2. Pain well controlled with PO meds 3. Continue routine post-op care 4. Anticipate D/C home today per attending Marc Levin DO * Marc Levin DO - 11/24/2010 6:39 AM CDT OB Progress Note Subjective: Pain well controlled with oral medications. Tolerating regular diet and ambulation. Voiding without complaints. No complaints this morning. Objective: Filed Vitals: 11/23/2010 12:00 PM 11/23/2010 4:13 PM 11/23/2010 8:13 PM 11/24/2010 1:29 AM BP: 120/70 120/62 120/72 126/74 Pulse: 62 68 68 72 Temp: 97.8 ??F (36.6 ??C) 98 ??F (36.7 ??C) 97.8 ??F (36.6 ??C) 97.4 ??F (36.3 ??C) TempSrc: Oral Oral Oral Oral Resp: 18 16 16 18 Height: Weight: SpO2: HEENT: NC, AT Abd: Soft, firm fundus below umbilicus, incision clean/dry/intact Ext: No calf tenderness Assessment/Plan: POD# 3 s/p LTCS 1. Afebrile, hemodynamically stable, doing well 2. Pain well controlled with PO meds 3. Increase ambulation 4. Continue routine post-op care Marc Levin DO * Angela Stanley RN - 11/23/2010 10:29 PM CDT Pt states relief of incisional pain since given Vicodin at 2140. Still rating abdominal cramps at 6/10. Pt able to receive Motrin at 2340. Pt okay to wait till next dose of Motrin. Encouraged pt to call if pain begins to increase. Pt and s.o. verbalized understanding. * Angela Stanley RN - 11/23/2010 9:24 PM CDT Pt states no relief of pain from Percocet 10 given at 2015 and ice to incision. Still rating pain 6/10. Dr. Julio Henry notified. Orders received to change meds from Percocet to Vicodin and give a one time dose of Vicodin 5. Pt updated. Verbalized understanding. * David Hernandez MD - 11/23/2010 6:40 AM CDT special systems technician Progress Note Subjective: Pain well controlled with epidural. Denies chest pain, shortness of breath, fevers, chills, or calf pain. Tolerating regular diet and ambulation. Voiding with difficulty overnight. Has improved. No complaints this morning. Objective: Filed Vitals: 11/22/2010 9:46 PM 11/22/2010 11:54 PM 11/23/2010 2:02 AM 11/23/2010 3:30 AM BP: 122/64 120/70 Pulse: 66 72 Temp: 97.5 ??F (36.4 ??C) 97 ??F (36.1 ??C) TempSrc: Oral Oral Resp: 16 16 18 16 Height: Weight: SpO2: HEENT: NC, AT Abd: Soft, firm fundus below umbilicus, incision clean/dry/intact Ext: No calf tenderness Assessment/Plan: POD# 2 s/p LTCS 1. VSS, AF 2. Begin oral pain medications when epidural discontinued. Increase ambulation. 3. Continue post-op cares David Hernandez MD [phone] * Angela Stanley RN - 11/22/2010 6:15 PM CDT Attempted to page resident x2, without response to give update on pt's urine output after straight cath. Pt able to void 650 mL of clear yellow urine without difficulty at 1810. * Cait Wong RN - 11/22/2010 4:00 PM CDT Straight cathed for a return of 200 mls dark daphne urine. Fundus firm at U/1. Encouraged increase in fluid intake. Will continue to monitor. Oncoming nurse updated. * Cait Wong RN - 11/22/2010 3:30 PM CDT Has not voided after several attempts to do so this shift. Does not have strong urge to go. Taking po fluids well. * David Hernandez MD - 11/22/2010 6:30 AM CDT special systems technician Progress Note Subjective: Pain well controlled with epidural. Denies chest pain, shortness of breath, fevers, chills, or calf pain. Positive flatus. No complaints. Objective: Filed Vitals: 11/21/2010 10:00 PM 11/22/2010 12:25 AM 11/22/2010 2:30 AM 11/22/2010 4:00 AM BP: 138/88 130/78 130/70 130/78 Pulse: 72 72 72 68 Temp: 97.8 ??F (36.6 ??C) 98 ??F (36.7 ??C) 98.8 ??F (37.1 ??C) TempSrc: Oral Oral Oral Resp: 18 16 18 16 Height: Weight: SpO2: HEENT: NC, AT Heart : RRR Lungs: CTAB Abd: Soft, firm fundus below umbilicus, incision clean/dry/intact Ext: No calf tenderness Intake/Output Summary (Last 24 hours) at 11/22/10 0630 Last data filed at 11/22/10 0027 Gross per 24 hour Intake 3850 ml Output 1600 ml Net 2250 ml Assessment/Plan: POD# 1 s/p LTCS 1. VSS, AF, UOP adequate 2. Saline lock IV, discontinue Carver, ambulate, advance diet as tolerated with flatus. 3. Continue post-op cares David Hernandez MD [phone] documented in this encounter Procedure Notes * Stl Scanning, [facility] - 11/23/2010 7:51 AM CDTAssociated Order(s): TELEMETRY REPORT documented in this encounter OR Notes * OR Anesthesia - Stl Scanning, [facility] - 11/26/2010 8:50 AM CDT * OR Anesthesia - Nati Morales MD - 11/23/2010 7:53 AM CDT Post - Operative Pain Service Note Post op day #2 Epidural 11/21/10 1313-Rate: 10 (11/23/10 0630) Demerol (2 mg/cc) epidural infusing at 10 cc/hr VSS: Pulse: 72 (11/23/10 0330) BP: 120/70 mmHg (11/23/10329) Resp: 18 (11/23/10627) Temp: 97 ??F (36.1 ??C) (11/23/10329) Pain Rating: Rest: 3 (11/23/10627) Description: Quality: aching (11/23/10627) Patient is tolerating PO intake. Epidural infusion is no longer essential for post operative analgesia. Plan: Discontinue epidural. OB Anesthesia signing off post-op pain management. Epidural catheter was discontinued. Tip was intact. Site is clean dry and without erythema. Nati Morales MD 11/23/2010 7:53 AM * OR Anesthesia - Therese Downs MD - 11/22/2010 8:51 AM CDT Post - Operative Pain Service Note Post op day #1. Epidural 11/21/10 1313-Rate: 10 (11/22/10 0025) Demerol (2 mg/cc) epidural infusing at 10 cc/hr Vitals: Pulse: 66 (11/22/10 0800) BP: 120/70 mmHg (11/22/10799) Resp: 18 (11/22/10799) Temp: 98.2 ??F (36.8 ??C) (11/22/10 08) VPS Pain Rating: Rest: 2 (11/21/10 2200) Description: Quality: cramping (11/22/10599) Sedation: no Pruritis: no Nausea/vomitting: no Plan: No change in treatment. Will continue to follow. Therese Downs MD * OR Anesthesia - Jaime Ortega MD - 11/22/2010 7:52 AM CDT OB Anesthesia Post-Operative Assesment 11/22/2010 7:52 AM Vera Purdy, status post regional anesthesia for section. Patient seen and evaluated: Respiratory Function Resp: 18 (11/22/10599) SpO2: 95 % (11/21/102135) Able to breathe and cough freely Able to maintain O2 saturation greater than 92% on room air Cardiovascular Function Heart Rate (Monitored): 61 bpm (11/21/102135) BP: 130/70 mmHg (11/22/10599) BP within 20% of preanesthetic level Mental Status, Neuro Fully awake. Able to move 4 extremities voluntarily. No focal sensory deficits or weakness. Temperature Temp: 98.8 ??F (37.1 ??C) (11/22/10399) Pain Pain Rating: Rest: 2 (11/21/102199) Presence of Pain: complains of pain/discomfort (11/22/10599) Postoperative Hydration Intake/Output Summary (Last 24 hours) at 11/22/10751 Last data filed at 11/22/10599 Gross per 24 hour Intake 4142.78 ml Output 1900 ml Net 2242.78 ml Nausea and Vomiting Able to drink fluids , no nausea and no vomiting No apparent Anesthesia related complications Jaime Ortega MD 11/22/2010 7:52 AM * OR Anesthesia - Della Godoy MD - 11/21/2010 9:50 PM CDT OB Anesthesia Recovery Room Postanesthesia Evaluation Including [facility] Modified Joan Score Patient seen and evaluated: RESPIRATORY FUNCTION: Respiration: able to breath and cough freely (11/21/102103) [2=able to breathe and cough freely, 1=dyspnea, limited breathing or tachypnea, 0=apnea or mechanicventilator] O2 Saturation: able to maintain O2 saturation greater than 92% on room air (11/21/102103) [2=able to maintain O2 saturation greater than 92% on room air, 1=needs O2 inhalation to maintain O2 saturation greater than 90%, 0=O2 saturation less than 90% even with O2 supplement] Resp: 20 (11/21/102135)SpO2: 95 % (11/21/102135) CARDIOVASCULAR FUNCTION: Heart Rate (Monitored): 61 bpm (11/21/102135) BP: 105/74 mmHg (11/21/102135) Circulation: BP within 20% of preanesthetic level (11/21/102103) [2=BP within 20% of preanesthetic level, 1=BP within 20-49% of preanesthetic level, 0=BP within 50%of preanesthetic level] MENTAL STATUS, NEURO, ACTIVITY: Consciousness: fully awake (11/21/102103) [2=fully awake, 1=arousable on calling, 0=not responding] Activity: able to move 4 extremities voluntarily or on command (11/21/102103) [2=able to move 4 extremities voluntarily or on command, 1=able to move 2 extremities voluntarily or on command, 0=unable to move extremities voluntarily or on command] Ambulation: able to stand up and walk straight, on ordered bedrest, or performing at patient's prior level of function (11/21/102103) [2=able to stand up and walk straight, on ordered bedrest, or performing at patient's prior level of function, 1=vertigo when erect, 0=dizziness when supine] TEMPERATURE: Temp: 97 ??F (36.1 ??C) (11/21/102033) PAIN: Pain Rating: Rest: 6 (dozing ) (11/21/102120) Pain: pain free (11/21/102103) [2=pain free, 1=pain handled by oral medication, 0=pain requiring parenteral medication] NAUSEA AND VOMITING: Fasting/Feeding: able to drink fluids, ice chips or NPO (11/21/102103) [2=able to drink fluids, ice chips or NPO, 1=nauseated, 0=nausea and vomiting] POSTOPERATIVE HYDRATION: Urine Output: has voided, adequate urine output per device, or not applicable (11/21/102103) [2=has voided, adequate urine output per device, or not applicable, 1=unable to void but comfortable, 0=unable to void and uncomfortable] WOUND: Dressing: dry and clean or not applicable (11/21/102103) [2=dry and clean or not aplicable, 1=wet, marked and not increasing, 0=growing area of wetness] [facility] Modified Joan Score: Score: 20 (11/21/10 2104) COMMENTS: No apparent Anesthesia related complications Della Godoy MD 11/21/2010 9:51 PM * OR Anesthesia - Della Godoy MD - 11/21/2010 7:10 PM CDT OB Anesthesia Day of Surgery Pre-Anesthesia Evaluation 11/21/2010 7:10 PM Name: Vera Purdy Age: 25 y.o. CSN: [id number] Procedure: c/section Derrick indications: failure to progress Allergies Allergen Reactions ??? Latex Rash para: Gestational age: 37w0d Prescriptions prior to admission Medication Sig Dispense Refill ??? vit-iron fumarate-FA ( VITAMIN) 27-0.8 mg Oral Tab Take 1 Tab by mouth daily. Patient Active Problem List Diagnoses Date Noted ??? MIL, cervidil, elevated BP, ALT elevated, trace protein, B+ [659.10M] 11/20/2010 Past Medical History Diagnosis Date ??? Patient [...] Children: N/A ??? Years of Education: N/A Social History Main Topics ??? Smoking [...] No anesthesia problems/complications History of PONV No Contents of Last Food Intake: lunch (11/20/10 1840) Last Food Intake (hh:mm): 1300 (11/20/101839) Contents of Last Fluid Intake: water (11/20/101839) Last Fluid Intake (hh:mm): 1800 (11/20/101839) NPO Status:greater than 6 hours for solids Review of Systems Cardiovascular: negative Respiratory: negative Gastroenterology: negative PHYSICAL EXAM BP: 145/77 mmHg (11/21/101830) Resp: 18 (11/21/10 0620) Temp: 97.3 ??F (36.3 ??C) (11/21/101757) Weight: 229 lb (103.874 kg) (11/20/101839) Height: 5' 6 (167.6 cm) (11/20/101839) BMI: Body mass index is 36.96 kg/(m^2). Airway: normal range of motion: Airway Class: III (soft palate, base of uvula visible); ThyromentalDistance 3+ Finger Breadth Lungs: clear to auscultation bilaterally, normal respiratory effort Heart: regular rate and rhythm, S1, S2 normal, no murmur, click, rub or gallop Neuro: grossly intact Vascular Access: Peripheral Line LABS Lab Results Component Value Date WBC 12.5* 11/21/2010 HEMOGLOBIN 12.4 11/21/2010 HEMATOCRIT 36.3 11/21/2010 PLATELETS 259 11/21/2010 MCV 86.8 11/21/2010 No results found for this basename: INR, PT, PROTIMEPOC No results found for this basename: glucpoc Other Studies/Considerations: None Postop pain management discussed yes Recommendations: GI prophylaxis There is no interval changes in the patient's history or review of systems.Yes ASA Physical Status: ASA 2 - Patient with mild systemic disease with no functional limitations I have seen and examined this patient and confirm that all data is current and accurate. Yes Choice of Anesthesia/Anesthesia Plan: Proceed and Regional I have discussed the anesthetic options and the risks/benefits with the patient/family. Questions have been solicited and answered. Yes Della Godoy MD * OR Anesthesia - Therese Downs MD - 11/21/2010 1:04 PM CDT OB Anesthesia Pre Labor Epidural Evaluation 11/21/2010 1:04 PM Name: Vera Purdy Age: 25 y.o. CSN: [id number] Allergies Allergen Reactions ??? Latex Rash BP: 139/92 mmHg (11/21/10 1250) Resp: 18 (11/21/10 0620) Temp: 97.6 ??F (36.4 ??C) (11/21/10 1125) Weight: 229 lb (103.874 kg) (11/20/10 184) Height: 5' 6 (167.6 cm) (11/20/10 184) Body mass index is 36.96 kg/(m^2). para: Gestational age: 37w0d Prescriptions prior to admission Medication Sig Dispense Refill ??? vit-iron fumarate-FA ( VITAMIN) 27-0.8 mg Oral Tab Take 1 Tab by mouth daily. Patient Active Problem List Diagnoses Date Noted ??? MIL, cervidil, elevated BP, ALT elevated, trace protein, B+ [659.10M] 11/20/2010 Past Medical History Diagnosis Date ??? Patient denies relevant medical history ??? MRSA (methicillin resistant Staphylococcus aureus) 08/2009 cysts on leg, never cultured-told it was staph and was given medication ??? High cholesterol History Social History ??? Marital Status: Single Spouse Name: N/A Number of Children: N/A ??? Years of Education: N/A Social History Main Topics ??? Smoking status: Current Everyday Smoker -- 0.5 packs/day for 10 years Types: Cigarettes ??? Smokeless tobacco: Never Used ??? Alcohol Use: No ??? Drug Use: No ??? Sexually Active: Yes -- Male partner(s) Other Topics Concern ??? Not on file Social History Narrative ??? No narrative on file LABS Lab Results Component Value Date WBC 11.1* 11/20/2010 HEMOGLOBIN 12.9 11/20/2010 HEMATOCRIT 37.2 11/20/2010 PLATELETS 257 11/20/2010 MCV 86.5 11/20/2010 No results found for this basename: INR, PT, PROTIMEPOC No results found for this basename: glucpoc documented in this encounter Miscellaneous Notes * Scanned Form - [facility] Scanning, [facility] - 11/26/2010 8:50 AM CDT * Scanned Form - [facility]l Scanning, [facility] - 11/26/2010 8:50 AM CDT * Scanned Form - [facility]l Scanning, [facility] - 11/26/2010 8:50 AM CDT * Scanned Form - [facility] Scanning, [facility] - 11/26/2010 8:50 AM CDT * Assessment & Plan Note - [facility] Scanning, [facility] - 11/26/2010 8:50 AM CDT * Patient Instructions - [facility] Scanning, [facility] - 11/26/2010 8:50 AM CDT * Care Plan - Therese Parekh - 11/25/2010 3:46 PM CDT Problem: General Plan of Care (Adult, Obstetrics) Goal: Plan of Care Review (Adult, Obstetrics) The patient and/or their housing management representative will communicate an understanding of their plan of care. Pt. seen for [facility] Medical Referral Forms filled out, for Mom and Baby. Nutrition Education and handouts provided for, nutritional needs and feeding 0-12 months. Pt voices understanding, has D.T.R. phone number for reference. * Delivery - Julio Henry MD - 11/21/2010 8:36 PM CDT Note Section Operative Note Date of Procedure: 11/21/2010 Time: Information for the patient's : Olvin Purdy [[id number]] Delivery Time: 1955 (11/21/102009) Pre-operative Diagnosis: 1. IUP @ 37w0d IUP 2. failed induction and failure to progress - arrest ofdilation Post -operative Diagnosis: same Procedure: primary section Incisions/Lacerations: low transverse uterus and Pfannensteil Surgeon: Keo Meza MD respiratory care assistant: Julio Henry MD Anesthesia: epidural Pt Identification: 25 y.o. at 37w0d complications: hypertension and abnormal LFTs Labor: augmented and induced Labor complications: none Indications: See pre-op diagnosis above, H&P, and most recent progress note(s). Findings: male . Presentation: cephalic Apgars: Information for the patient's : Olvin Purdy [[id number]] 1 Minute Score: 8 (11/21/102008) 5 Minute Score: 9 (11/21/102008) Weight: Information for the patient's : Olvin Purdy [[id number]] Weight: 6 lb 15 oz (3.147 kg) (11/21/102008) Nuchal cord none Placenta removed: manual The uterus, tubes and ovaries appeared normal. Estimated Blood Loss: 800 mL Drains: Carver catheter Total IV Fluids: 800 mL crystalloid Urine Ouput: 300 mL (clear urine) Specimens: none Complications: none Procedure Details After informed consent, placement of Carver, SCDs, and appropriate anesthesia as listed above, the patient was prepped and draped in usual fashion. A Pfannenstiel skin incision was made with the scalpel and carried down through the subcutaneous tissue to the fascia sharply. The fascia was then incised in the midline, and this incision was extended laterally with Cabezas scissors. The fascia was from the underlying rectus tissue superiorly and inferiorly. The peritoneum was identified and entered. Peritoneal incision was extended with good visualization of bowel & bladder. Bladder blade was placed and the vesico-uterine reflection was incised transversely and the bladder flap was bluntly freed from the lower uterine segment. The bladder blade was then reinserted. A low transverseuterine incision was made with the scalpel. This incision was extended laterally digitally. Infant was delivered as noted in findings above. The umbilical cord was doubly clamped and cut & the was handed to nurse. The placenta was removed as noted above. The uterus was exteriorized &cleared of clot & debris. The uterine incision was reappoximated with 0 Vicryl in a running, locking stitch. Hemostasis was observed. The uterus was returned to anatomic position. The pericolic gutters were manually cleared. The uterine incision was reinspected & noted to be hemostatic. Theperitoneum was closed with 2-0 chromic in a running stitch. The rectus muscles were reaproximated with a single interrupted stitch of 2-0 chromic. The subfascial tissues were noted to be hemostatic. The fascia was then reapproximated with 0 Vicryl in a running stitch. The subcutaneous tissue was irrigated & made hemostatic with the Bovie. The subcutaneus tissue was then closed with 3-0 plain gut suture in a running stitch. The skin was closed with 4-0 monocryl, followed by a sterile dressing. Instrument, sponge, and needle counts were correct times three per nursing. Antibiotics were given prior to incision. The patient tolerated the procedure well and was taken to recovery in stable condition. Dr. Meza was present for the entire procedure. Julio Henry MD SPECIAL SYSTEMS TECHNICIAN PGY 1 Pager: [phone] documented in this encounter Plan of Treatment Upcoming Encounters Date Type Department Care Team (Late st Contact Info) Description 10/14/2024 11:00 AM GEAR CHANGER Office Visit [facility] Oncology and Hematology - Alirio [address] [facility] [facility] [address] [place] [address] Ubaldo Cardenas MD [address] [facility] [address] [place] [address] documented as of this encounter Procedures Procedure Name Priority Date/Time Associated Diagnosis Comments TELEMETRY REPORT 11/23/2010 7:51 AM CDT SECTION 11/21/2010 7:00 PM CDT CBC WITH DIFFERENTIAL Stat 11/21/2010 6:37 PM CDT TYPE AND SCREEN Stat 11/21/2010 6:15 PM CDT URINALYSIS W/REFLEX MICROSCOPIC Routine 11/20/2010 8:16 PM CDT CBC WITH DIFFERENTIAL Routine 11/20/2010 7:40 PM CDT URIC ACID Routine 11/20/2010 7:40 PM CDT ALT Routine 11/20/2010 7:40 PM CDT AST Routine 11/20/2010 7:40 PM CDT LACTATE DEHYDROGENASE Routine 11/20/2010 7:40 PM CDT documented in this encounter Results * TELEMETRY REPORT (11/23/2010 7:51 AM CDT) Narrative Transcriptions Stl Scanning, [facility] - 11/23/2010 7:51 AM CDT Provider Scanning ECG ORDERABLES * (ABNORMAL) CBC WITH DIFFERENTIAL (11/21/2010 6:37 PM CDT) WBC 12.5(H) 4.0 - 9.8 K/uL [facility] RBC 4.18 3.90 - 4.90 M/uL [facility] HEMOGLOBIN 12.4 11.8 - 14.8 g/dL [facility] HEMATOCRIT 36.3 35.5 - 44.0 % [facility] MCV 86.8 82.0 - 99.0 fL [facility] MCH 29.7 27.2 - 32.6 pg [facility] MCHC 34.2 31.5 - 35.5 % [facility] PLATELETS 259 140 - 350 K/uL [facility] MPV 9.7 9.3 - 12.4 fL [facility] RDW 14.5 11.5 - 14.5 % [facility] RDW-STDEV 44.7 37.1 - 48.7 fL [facility] NEUTROPHILS 77(H) 45 - 70 % [facility] LYMPHOCYTES 16 16 - 45 % [facility] MONOCYTES 6 3 - 13 % [facility] EOSINOPHILS 0 0 - 7 % [facility] BASOPHILS 0 0 - 2 % [facility] NEUTROPHIL ABSOLUTE 9.69(H) 1.90 - 7.00 K/uL [facility] LYMPHOCYTE ABSOLUTE 2.00 0.70 - 4.50 K/uL [facility] [facility] MONOCYTE ABSOLUTE 0.79 0.10 - 1.30 K/uL [facility] EOSINOPHIL ABSOLUTE 0.04 0.00 - 0.70 K/uL [facility] BASOPHILS ABSOLUTE 0.02 0.00 - 0.20 K/uL [facility] Blood specimen (specimen) 11/21/2010 6:37 PM CDT 11/21/2010 6:46 PM CDT Keo Meza MD HEMATOLOGY ORDERABLE S Performing Organization Address [facility] Co de Phone Number [facility] CLIA# [id number] [address] [place] [address] * TYPE AND SCREEN (11/21/2010 6:15 PM CDT) HISTORY CHECK History Checked [facility] SPECIMEN LIFE 3 days from drawdate [facility] ABO/RH TYPE B Positive [facility] ANTIBODY SCREEN Negative [facility] Blood specimen (specimen) 11/21/2010 6:15 PM CDT 11/21/2010 6:46 PM CDT Koe Meza MD BLOOD BANK ORDERABLE S Performing Organization Address City/[facility]/ZIP Co de Phone Number INTERFACE SYSTEM Refer to clinic/hospital department [facility] CLIA# [id number] [address] [place] [address] * (ABNORMAL) URINALYSIS (11/20/2010 8:16 PM CDT) COLOR UA Yellow [facility] CLARITY UA Clear Clear [facility] SPECIFIC GRAVITY UA 1.009 1.001 - 1.035 [facility] PH UA 7.0 5.0 - 8.0 [facility] LEUKOCYTE ESTERASE UA Trace(A) Negative [facility] NITRITE UA Negative Negative [facility] PROTEIN UA Trace(A) Negative [facility] GLUCOSE UA Negative Negative [facility] KETONES UA 1+(A) Negative [facility] UROBILINOGEN UA <1 <=1 mg/dL [facility] BILIRUBIN UA Negative Negative [facility] BLOOD UA Negative Negative [facility] WBC UA 5 0 - 5 /HPF [facility] RBC UA 1 0 - 4 /HPF [facility] EPITHELIAL CELLS, URINE 2-5 /HPF [facility] Urine, clean catch 11/20/2010 8:16 PM CDT 11/20/2010 8:21 PM CDT Comment:URINE Julio Henry MD URINE ORDERABLES Performing Organization Address City/[facility]/ZIP Co de Phone Number [facility] CLIA# [id number] [address] [place] [address] * URIC ACID (11/20/2010 7:40 PM CDT) URIC ACID 4.6 2.3 - 6.6 mg/dL [facility] Blood specimen (specimen) 11/20/2010 7:40 PM CDT 11/20/2010 7:47 PM CDT Julio Henry MD CHEMISTRY ORDERABLE S Performing Organization Address City/[facility]/ZIP Co de Phone Number [facility] CLIA# [id number] [address] [place] [address] * (ABNORMAL) LACTATE DEHYDROGENASE (11/20/2010 7:40 PM CDT) [facility] LD (LACTATE DEHYDROGENASE) 114(L) 135 - 214 U/L [facility] Blood specimen (specimen) 11/20/2010 7:40 PM CDT 11/20/2010 7:47 PM CDT Julio Henry MD CHEMISTRY ORDERABLE S [facility] CLIA# [id number] [address] [place] [address] * (ABNORMAL) CBC WITH DIFFERENTIAL (11/20/2010 7:40 PM CDT) [facility] WBC 11.1(H) 4.0 - 9.8 K/uL [facility] RBC 4.30 3.90 - 4.90 M/uL [facility] HEMOGLOBIN 12.9 11.8 - 14.8 g/dL [facility] HEMATOCRIT 37.2 35.5 - 44.0 % [facility] MCV 86.5 82.0 - 99.0 fL [facility] MCH 30.0 27.2 - 32.6 pg [facility] MCHC 34.7 31.5 - 35.5 % [facility] PLATELETS 257 140 - 350 K/uL [facility] MPV 9.7 9.3 - 12.4 fL [facility] RDW 14.4 11.5 - 14.5 % [facility] RDW-STDEV 44.2 37.1 - 48.7 fL [facility] NEUTROPHILS 76(H) 45 - 70 % [facility] LYMPHOCYTES 17 16 - 45 % [facility] MONOCYTES 6 3 - 13 % [facility] EOSINOPHILS 1 0 - 7 % [facility] BASOPHILS 0 0 - 2 % [facility] NEUTROPHIL ABSOLUTE 8.49(H) 1.90 - 7.00 K/uL [facility] LYMPHOCYTE ABSOLUTE 1.92 0.70 - 4.50 K/uL [facility] MONOCYTE ABSOLUTE 0.65 0.10 - 1.30 K/uL [facility] EOSINOPHIL ABSOLUTE 0.06 0.00 - 0.70 K/uL [facility] BASOPHILS ABSOLUTE 0.01 0.00 - 0.20 K/uL [facility] Blood specimen (specimen) 11/20/2010 7:40 PM CDT 11/20/2010 7:47 PM CDT Julio Henry MD HEMATOLOGY ORDERABL ES Performing Organization Address [facility] Co de Phone Number [facility] CLIA# [id number] [address] [facility] [address] * AST (11/20/2010 7:40 PM CDT) AST 31 12 - 32 U/L [facility] Blood specimen (specimen) 11/20/2010 7:40 PM CDT 11/20/2010 7:47 PM CDT Julio Henry MD CHEMISTRY ORDERABLE S Performing Organization Address City/[facility] Co de Phone Number [facility] CLIA# [id number] [address] [place] [address] * (ABNORMAL) ALT (11/20/2010 7:40 PM CDT) ALT 48(H) 0 - 31 U/L [facility] Blood specimen (specimen) 11/20/2010 7:40 PM CDT 11/20/2010 7:47 PM CDT Julio Henry MD CHEMISTRY ORDERABLE S [facility] CLIA# [id number] [address] [place] [address] documented in this encounter Visit Diagnoses Diagnosis R/O labor Normal delivery MIL, cervidil, elevated BP, ALT elevated, trace protein, B+ Unspecified indication for care or intervention related to labor and delivery, unspecified as to episode of care C section 11/21 Other postprocedural status Normal (single liveborn) Single liveborn, born in hospital, delivered without mention of delivery documented in this encounter Administered Medications Inactive Administered Medications - up to 3 most recent administrations Medication Order MAR Action Action Date Dose Rate Site butorphanol (STADOL) injection 1 mg 1 mg, IV, EVERY 2 HOURS PRN, Starting on Sun11/21/10 at 1030, Until Sun11/21/10 at 2354, Pain, Moderate, Routine Given 11/21/2010 11:43 AM CDT 1 mg ceFAZolin (ANCEF) IVPB 2,000 mg 2,000 mg, IV, PRE-PROCEDURE ONCE, 1 dose, Starting on Sun11/21/10 at 1912, Until Sun11/21/10 at 1921, Routine Given 11/21/2010 7:21 PM CDT 2,000 mg dinoprostone (CERVIDIL) vaginal insert 10 mg 10 mg, Vaginal, ONE TIME ONLY, 1 dose, On Sun11/20/10 at 2200, Routine Given 11/20/2010 10:20 PM CDT 10 mg docusate sodium (COLACE) capsule 100 mg 100 mg, Oral, TWO TIMES DAILY, First dose on Sun11/22/10 at 0900, Until Discontinued, Routine Given 11/25/2010 8:58 AM CDT 100 mg Given 11/24/2010 8:52 PM CDT 100 mg Given 11/24/2010 8:04 AM CDT 100 mg fentaNYL PF (SUBLIMAZE) 50 mcg/mL injection 100 mcg 100 mcg, Epidural, ONE TIME ONLY, 1 dose, On Sun11/21/10 at 1300, Routine, (ANESTHESIA LABOR ORDER) Given 11/21/2010 1:10 PM CDT 100 mcg fentaNYL PF (SUBLIMAZE) 50 mcg/mL injection 15 mcg 15 mcg, IntraTHEcal, ONE TIME ONLY, 1 dose, On Sun11/21/10 at 1915, Routine, (ANESTHESIA LABOR ORDER) Given 11/21/2010 7:30 PM CDT 15 mcg fentaNYL-bupivacaine 2 mcg/ml-0.075% in sodium chloride 0.9% (PF) infusion 250 mL, Epidural, at 8 mL/hr, CONTINUOUS, Starting on Sun11/21/10 at 1300, Until Sun11/21/10 at 1925 New Bag 11/21/2010 1:10 PM CDT 250 mL 8 mL/hr ferrous sulfate (FEOSOL) tablet 325 mg 325 mg, Oral, DAILY, First dose on Sun11/22/10 at 0900, Until Discontinued, Routine Given 11/25/2010 8:57 AM CDT 325 mg Given 11/24/2010 8:04 AM CDT 325 mg Given 11/22/2010 8:56 AM CDT 325 mg HYDROcodone-acetaminophen (NORCO) 10-325 mg per tablet 1 Tab 1 Tablet, Oral, EVERY 4 HOURS PRN, Starting on Sun11/23/10 at 2116, Until Sun11/25/10 at 1349, Pain, Severe, Routine Given 11/25/2010 8:58 AM CDT 1 Tablet Given 11/25/2010 4:22 AM CDT 1 Tablet Given 11/25/2010 12:15 AM CDT 1 Tablet HYDROcodone-acetaminophen (NORCO) 5-325 mg per tablet 1 Tab 1 Tablet, Oral, ONE TIME ONLY, 1 dose, On Sun11/23/10 at 2130, Routine Given 11/23/2010 9:37 PM CDT 1 Tablet ibuprofen (MOTRIN) tablet 600 mg 600 mg, Oral, EVERY 6 HOURS PRN, Starting on Sun11/21/10 at 2354, Until Sun11/25/10 at 1349, Pain, Routine Given 11/25/2010 6:20 AM CDT 600 mg Given 11/25/2010 12:16 AM CDT 600 mg Given 11/24/2010 6:18 PM CDT 600 mg ketorolac (TORADOL) injection 30 mg 30 mg, IV, EVERY 6 HOURS, 8 doses, First dose on Sun11/21/10 at 1915, Last dose on Sun11/23/10 at 1200, Routine, (OB POST-OP PAIN SERVICE) Given 11/23/2010 6:28 AM CDT 30 mg Given 11/22/2010 11:54 PM CDT 30 mg Given 11/22/2010 6:14 PM CDT 30 mg lactated ringers solution IV, at 125 mL/hr, CONTINUOUS, Starting on Sun11/20/10 at 2245, Until Sun11/21/10 at 2354, Routine New Bag 11/21/2010 7:24 PM CDT 125 mL /hr New Bag 11/21/2010 2:50 PM CDT 125 mL/hr New Bag 11/21/2010 7:29 AM CDT 125 mL/hr lactated ringers solution IV, at 125 mL/hr, CONTINUOUS, Starting on Sun11/22/10 at 0000, Until Sun11/23/10 at 1652, Routine New Bag 11/22/2010 4:41 PM CDT 125 mL /hr New Bag 11/22/2010 8:49 AM CDT 125 mL/hr meperidine (PF) 1,000 mg in sodium chloride 0.9 % 490 mL epidural 500 mL, Epidural, at 10 mL/hr, CONTINUOUS, Starting on Sun11/21/10 at 1915, Until Sun11/23/10 at 1914, (OB POST-OP PAIN SERVICE)[id number] 11/21/2010 9:08 PM CDT 10 mL/hr ondansetron (ZOFRAN ODT) tablet 4 mg 4 mg, Oral, EVERY 8 HOURS PRN, Starting on Sun11/23/10 at 0634, Until Sun11/23/10 at 2117, Nausea, Routine Given 11/23/2010 4:13 PM CDT 4 mg Given 11/23/2010 8:00 AM CDT 4 mg ondansetron (ZOFRAN ODT) tablet 4 mg 4 mg, Oral, EVERY 6 HOURS PRN, Starting on Sun11/23/10 at 2117, Until Sun11/25/10 at 1349, Nausea, Routine Given 11/23/2010 9:37 PM CDT 4 mg oxyCODONE-acetaminophen (PERCOCET) 10-325 mg per tablet 1 Tab 1 Tablet, Oral, EVERY 4 HOURS PRN, Starting on Sun11/21/10 at 2354, Until Sun11/23/10 at 2117, Pain, Severe, For Pain Scale 7-10, Routine Given 11/23/2010 8:13 PM CDT 1 Tablet Given 11/23/2010 4:13 PM CDT 1 Tablet oxyCODONE-acetaminophen (PERCOCET) 5-325 mg per tablet 1 Tab 1 Tablet, Oral, EVERY 4 HOURS PRN, Starting on Sun11/21/10 at 2354, Until Sun11/23/10 at 2117, Pain, Moderate, For Pain Scale 4-6, Routine Given 11/23/2010 12:23 PM CDT 1 Tablet Given 11/23/2010 8:00 AM CDT 1 Tablet oxytocin (PITOCIN) 30 units in lactated ringers 500 mL infusion 2 lillian-units/min (rounded to 2 mL/hr), IV, TITRATE, Starting on Sun11/21/10 at 1045, Until Sun11/21/10 at 2354, Routine Rate Change 11/21/2010 6:13 PM CDT 13 lillian-units/min 13 mL/hr Rate Change 11/21/2010 5:09 PM CDT 12 lillian-units/min 12 m L/hr Rate Change 11/21/2010 4:27 PM CDT 10 lillian-units/min 10 m L/hr oxytocin in lactated ringers (PITOCIN) 20 unit/1,000 mL infusion Soln IV, at 125 mL/hr, CONTINUOUS, Starting on Sun11/21/10 at 1915, Until Sun11/21/10 at 2314, Routine, (OB ANESTHESIA ORDER) New Bag 11/21/2010 7:56 PM CDT mL/hr 125 mL/hr oxytocin in lactated ringers (PITOCIN) 20 unit/1,000 mL infusion Soln IV, at 125 mL/hr, CONTINUOUS, Starting on Sun11/22/10 at 0000, Until Sun11/22/10 at 0759, Routine New Bag 11/22/2010 12:27 AM CDT mL/hr 125 mL/hr vit-iron fumarate-fa (HECTOR ) 28-0.8 mg per tablet 1 Tab 1 Tablet, Oral, DAILY, First dose on Sun11/22/10 at 0900, Until Discontinued, Routine Given 11/25/2010 8:57 AM CDT 1 Tablet Given 11/24/2010 8:04 AM CDT 1 Tablet Given 11/23/2010 8:00 AM CDT 1 Tablet simethicone (MYLICON) tablet 80 mg 80 mg, Oral, EVERY 6 HOURS PRN, Starting on Sun11/21/10 at 2354, Until Sun11/25/10 at 1349, Gas, Routine Given 11/22/2010 8:56 AM CDT 80 mg sodium chloride 0.9 % flush injection 3 mL 3 mL, IV, EVERY 8 HOURS, First dose on Sun11/22/10 at 0645, Until Discontinued, Routine Given 11/23/2010 6:00 AM CDT 3 mL Given 11/22/2010 8:55 PM CDT 3 mL sodium chloride 0.9 % flush injection 3 mL 3 mL, IV, SEE ADMIN INSTRUCTIONS, Starting on Sun11/22/10 at 0633, Until Sun11/23/10 at 1400, Routine Given 11/23/2010 6:29 AM CDT 3 mL zolpidem (AMBIEN) tablet 10 mg 10 mg, Oral, NIGHTLY PRN, Starting on Sun11/21/10 at 0121, Until Sun11/25/10 at 1349, Insomnia, Routine Given 11/21/2010 1:31 AM CDT 10 mg documented in this encounter Active and Recently Administered Medications Times are shown in CDT. Scheduled Medication Order 11/23/2010 11/24/2010 11/25/2010 docusate sodium (COLACE) capsule 100 mg (CANCELED) 100 mg, Oral, TWO TIMES DAILY, First dose on Sun11/22/10 at 0900, Until Discontinued, Routine 0800 (Given - Provider: Ivis Vega RN)2012 (Given - Provider: Angela Stanley RN) 08 (Given - Provider: Ivis Vega RN)2051 (Given - Provider: Liliana Sadler RN) 0858 (Given - Provider: Amisha Stein, JACK) ferrous sulfate (FEOSOL) tablet 325 mg (CANCELED) 325 mg, Oral, DAILY, First dose on Sun11/22/10 at 0900, Until Discontinued, Routine 0900 (Refused - Provider: Ivis Vega RN) 0804 (Given - Provider: Ivis Vega RN) 0857 (Given - Provider: Amisha Stein RN) HYDROcodone-acetaminop hen (NORCO) 5-325 mg per tablet 1 Tab (COMPLETED) 1 Tablet, Oral, ONE TIME ONLY, 1 dose, On Sun11/23/10 at 2130, Routine 2137 (Given - Provider: Angela Stanley RN) ketorolac (TORADOL) injection 30 mg (CANCELED) 30 mg, IV, EVERY 6 HOURS, 8 doses, First dose on Sun11/21/10 at 1915, Last dose on Sun11/23/10 at 1200, Routine, (OB POST-OP PAIN SERVICE) 0628 (Given - Provider: Dania Alexis RN)1200 (Not Given - Provider: Ivis Vega RN - Reason: Clarify-Route - Comment: epidural removed and heplock d/c) vit-iron fumarate-fa (HECTOR ) 28-0.8 mg per tablet 1 Tab (CANCELED) 1 Tablet, Oral, DAILY, First dose on Sun11/22/10 at 0900, Until Discontinued, Routine 0800 (Given - Provider: Ivis Vega RN) 0804 (Given - Provider: Ivis Vega RN) 0857 (Given - Provider: Amisha Stein RN) sodium chloride 0.9 % flush injection 3 mL (CANCELED) 3 mL, IV, EVERY 8 HOURS, First dose on Sun11/22/10 at 0645, Until Discontinued, Routine 0600 (Given - Provider: Ivis Vega RN)1300 (Removed - Provider: Ivis Vega RN) sodium chloride 0.9 % flush injection 3 mL (CANCELED) 3 mL, IV, SEE ADMIN INSTRUCTIONS, Starting on Sun11/22/10 at 0633, Until Sun11/23/10 at 1400, Routine 0629 (Given - Provider: Dania Alexis RN) Continuous Medication Order 11/23/2010 11/24/2010 11/25/2010 meperidine (PF) 1,000 mg in sodium chloride 0.9 % 490 mL epidural 500 mL, Epidural, at 10 mL/hr, CONTINUOUS, Starting on Sun11/21/10 at 1915, Until Sun11/23/10 at 1914, (OB POST-OP PAIN SERVICE)[id number] oxytocin in lactated ringers (PITOCIN) 20 unit/1,000 mL infusion Soln IV, at 125 mL/hr, CONTINUOUS, Starting on Sun11/22/10 at 0000, Until Sun11/22/10 at 0759, Routine PRN Medication Order 11/23/2010 11/24/2010 11/25/2010 HYDROcodone-acetaminop hen (NORCO) 10-325 mg per tablet 1 Tab (CANCELED) 1 Tablet, Oral, EVERY 4 HOURS PRN, Starting on Sun11/23/10 at 2116, Until Sun11/25/10 at 1349, Pain, Severe, Routine 0122 (Given - Provider: Jackie Fountain, JACK)0527 (Given - Provider: Jackie Fountain, JACK)1113 (Given - Provider: Ivis Vega RN)1548 (Given - Provider: Ivis Vega RN)1953 (Given - Provider: Liliana Sadler RN) 0015 (Given - Provider: Liliana Sadler RN)0422 (Given - Provider: Liliana Sadler RN)0858 (Given - Provider: Amisha Stein RN) HYDROcodone-acetaminop hen (NORCO) 5-325 mg per tablet 1 Tab 1 Tablet, Oral, EVERY 4 HOURS PRN, Starting on Sun11/23/10 at 2116, Until Sun11/25/10 at 1349, Pain, Moderate, Routine ibuprofen (MOTRIN) tablet 600 mg 600 mg, Oral, EVERY 6 HOURS PRN, Starting on Sun11/21/10 at 2354, Until Sun11/25/10 at 1349, Pain, Routine 1223 (Given - Provider: Ivis Vega RN)1743 (Given - Provider: Angela Stanley RN)2334 (Given - Provider: Jackie Fountain, JACK) 0624 (Given - Provider: Jackie Fountain RN)1325 (Given - Provider: Ivis Vega RN)1818 (Given - Provider: Ivis Vega RN) 0016 (Given - Provider: Liliana Sadler RN)0620 (Given - Provider: Liliana Sadler RN) ondansetron (ZOFRAN ODT) tablet 4 mg (CANCELED) 4 mg, Oral, EVERY 8 HOURS PRN, Starting on Sun11/23/10 at 0634, Until Sun11/23/10 at 2117, Nausea, Routine 0800 (Given - Provider: Ivis Vega RN)1613 (Given - Provider: Angela Stanley, JACK) ondansetron (ZOFRAN ODT) tablet 4 mg (CANCELED) 4 mg, Oral, EVERY 6 HOURS PRN, Starting on Sun11/23/10 at 2117, Until Sun11/25/10 at 1349, Nausea, Routine 2137 (Given - Provider: Angela Stanley RN) oxyCODONE-acetaminophe n (PERCOCET) 10-325 mg per tablet 1 Tab (CANCELED) 1 Tablet, Oral, EVERY 4 HOURS PRN, Starting on Sun11/21/10 at 2354, Until Sun11/23/10 at 2117, Pain, Severe, For Pain Scale 7-10, Routine 1613 (Given - Provider: Angela Stanley RN)2012 (Given - Provider: Angela Stanley RN) oxyCODONE-acetaminophe n (PERCOCET) 5-325 mg per tablet 1 Tab (CANCELED) 1 Tablet, Oral, EVERY 4 HOURS PRN, Starting on Sun11/21/10 at 2354, Until Sun11/23/10 at 2117, Pain, Moderate, For Pain Scale 4-6, Routine 0800 (Given - Provider: Ivis Vega RN)1223 (Given - Provider: Ivis Vega RN) documented in this encounter
--- OUTSIDE RECORDS SUMMARY | 2024-08-03 01:43 | XMS_ITS | Encounter Summary ---
Author Organization [facility] Address [address] [place] [address] Care Team Providers Care Nuclear Physicist Name Role Phone Meng King MD Primary Care Provider [phone] Encounter Details Date Type Department Care Team (Latest Contact Info) Description 09/19/2008 Outpatient Historical [facility] Teja Nina MD NO ADDRESS ON FILE Viral Infection; Tobacco Use Disorder; Encounter for Long-Term (Current) Use of Other Medications; Pure Hypercholesterolemia Social History Tobacco Use Types Packs/Day Years Used Date Smoking Tobacco: Never Assessed Sex and Gender Information Value Date Recorded Sex Assigned at Not on file Gender Identity Not on file Sexual Orientation Not on file documented as of this encounter Plan of Treatment Upcoming Encounters Date Type Department Care Team (Late st Contact Info) Description 10/14/2024 11:00 AM ASSOCIATE BRAND MANAGER Office Visit [facility] Oncology and Hematology - [place] [address] [facility] [address] [place] [address] Ubaldo Cardenas MD [address] [facility] [address] [place] [address] documented as of this encounter Procedures Procedure Name Priority Date/Time Associated Diagnosis Comments BETA STREP ONLY CULTURE Routine 09/19/2008 2:51 PM ASSOCIATE BRAND MANAGER documented in this encounter Results * BETA STREP ONLY CULTURE (09/19/2008 2:51 PM ASSOCIATE BRAND MANAGER) PRELIMINARY REPORT Pending [facility] FINAL REPORT No Group A, C, or G beta Streptococcus isolated. [facility] Specimen from throat (specimen) 09/19/2008 2:51 PM ASSOCIATE BRAND MANAGER 09/19/2008 7:48 PM ASSOCIATE BRAND MANAGER Teja Nina MD MICROBIOLOGY - GENER AL ORDERABLES INTERFACE SYSTEM Refer to clinic/hospital department [facility] CLIA# [id number] [address] [place] [address] documented in this encounter Visit Diagnoses Diagnosis Unspecified viral infection, in conditions classified elsewhere and of unspecified site Tobacco use disorder Encounter for long-term (current) use of other medications Pure hypercholesterolemia documented in this encounter Additional Health Concerns Infection Onset Date Last Indicated Resolved Time COVID-19 08/24/2020 08/24/2020 09/23/2020 1:16 AM ASSOCIATE BRAND MANAGER documented as of this encounter Care Teams Nuclear Physicist Relationship Specialty Start Date End Date Meng King MD [address] [place] [address] PCP - General Family Practice 11/15/23 documented as of this encounter
--- OUTSIDE RECORDS SUMMARY | 2024-08-03 01:43 | XMS_ITS | Encounter Summary ---
Author Organization [employer] Address [address] [place] [address] Care Team Providers Care Linemarker Name Role Phone Unavailable Primary Care Provider Unavailabl e Reason for Visit * Auth/Cert - Closed Specialty Diagnoses / Procedures Referred By Contac t Referred To Contact Obstetrics Diagnoses abd pain Zzzstlo Antepartum [address] [place] [address] Referral ID Status Reason Start Date Expiration Date Visits Re quested Visits Authorized [id number] Closed 10/04/2010 04/02/2011 1 Encounter Details Date Type Department Care Team (Late st Contact Info) Description 11/21/2010 7:00 PM CDT - 11/21/2010 8:30 PM CDT Surgery [facility] Labor & [address] [place] [address] [place] [address] [place] [address] SECTION Surgery Details Date/Time Status Location OR Service Patient Class Case Cl ass Case Type Trauma Case? 11/21/2010 7:00 PM Posted [facility] L&D C-S B Obstetrics Inpatient Urgent No Panel 1 Procedure LRB Anes Op Region Wound Class Comments SECTION N/A Epidural Abdomen Clean Contami nated-II Surgeon Surgeon Role Service Panel Keo Meza [...] Sign Reading Time Taken Comments Blood Pressure 145/77 11/21/2010 6:31 PM CDT Pulse - - Temperature 36.3 ??C (97.3 ??F) 11/21/2010 5:58 PM CD T Respiratory Rate 18 11/21/2010 6:20 AM CDT Oxygen Saturation - - Inhaled Oxygen Concentration - - Weight 103.9 [...] 11/24/2010 9:29 PM CDT 4Patient: Vera Najera Portuguese / 25 y.o. / female : 1985 [...] with each feeding ?? For advice call: [phone] IF BOTTLE FEEDING ?? Avoid breast stimulation, [...] of pain from Percocet 10 given at 2014 and ice to incision. Still rating pain 6/10. Dr. Julio Henry notified. Orders received to change meds from Percocet to Vicodin and give a one time dose of Vicodin 5. Pt updated. Verbalized understanding. 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 Continue post-op cares David Hernandez MD [phone] documented in this encounter Procedure Notes * [facility] - 11/23/2010 7:51 AM CDTAssociated Order(s): TELEMETRY REPORT documented in this encounter OR Notes * OR Anesthesia - [facility], [facility] - 11/26/2010 8:50 AM CDT * OR Anesthesia - Nati Morales MD - 11/23/2010 7:53 AM CDT Post - Operative Pain Service Note Post op day #2 Epidural 11/21/10 1313-Rate: 10 (11/23/10629) Demerol (2 mg/cc) epidural infusing at 10 cc/hr VSS: Pulse: 72 (11/23/10329) BP: 120/70 mmHg (11/23/10329) Resp: 18 (11/23/10627) [...] infusing at 10 cc/hr Vitals: Pulse: 66 (11/22/10799) BP: 120/70 mmHg (11/22/10799) Resp: 18 (11/22/10799) Temp: 98.2 ??F (36.8 ??C) (11/22/10799) VPS Pain Rating: Rest: 2 (11/21/100) Description: Quality: cramping (11/22/10599) Sedation: no Pruritis: [...] Hydration Intake/Output Summary (Last 24 hours) at 11/22/10 0752 Last data filed at 11/22/10599 Gross per [...] and not increasing, 0=growing area of wetness] [facility] Score: Score: 20 (11/21/102103) COMMENTS: No apparent Anesthesia related complications Della Godoy MD 11/21/2010 9:51 PM * OR Anesthesia - Della Godoy MD - 11/21/2010 7:10 PM CDT OB Anesthesia Day of Surgery Pre-Anesthesia Evaluation 11/21/2010 7:10 PM Name: Vera Purdy Age: 25 y.o. CSN: [id number] Procedure: c/section Derrick indications: failure to progress [...] No Contents of Last Food Intake: lunch (11/20/101839) Last Food Intake (hh:mm): 1300 (11/20/101839) Contents of Last Fluid Intake: water (11/20/101839) Last Fluid Intake (hh:mm): 1800 (11/20/101839) NPO Status:greater than 6 hours for solids Review of Systems Cardiovascular: negative Respiratory: negative Gastroenterology: negative PHYSICAL EXAM BP: 145/77 mmHg (11/21/101830) Resp: 18 (11/21/10619) Temp: 97.3 ??F (36.3 ??C) (11/21/101757) Weight: [...] have been solicited and answered. Yes Della Jayne, MD * OR Anesthesia - Therese Downs MD - 11/21/2010 1:04 PM CDT OB Anesthesia Pre Labor Epidural Evaluation 11/21/2010 1:04 PM Name: Vera Purdy Age: 25 y.o. CSN: [id number] Allergies Allergen Reactions ??? Latex Rash BP: [...] Notes * Scanned Form - [facility], [facility] - 11/26/2010 8:50 AM CDT * Scanned Form - [facility], [facility] - 11/26/2010 8:50 AM CDT * Scanned Form - [facility], [facility] - 11/26/2010 8:50 AM CDT * Scanned Form - [facility], [facility] - 11/26/2010 8:50 AM CDT * Assessment & Plan Note - [facility] - 11/26/2010 8:50 AM CDT * Patient Instructions - [facility] - 11/26/2010 8:50 AM CDT * Care Plan - Therese Parekh - 11/25/2010 3:46 PM CDT Problem: General Plan of Care (Adult, Obstetrics) Goal: Plan of Care Review (Adult, Obstetrics) The patient and/or their financial service representative will communicate an understanding of their plan of care. Pt. seen for [facility] Medical Referral Forms filled out, for Mom and Baby. Nutrition Education and handouts provided for, nutritional needs and feeding 0-12 months. Pt voices understanding, has D.T.R. phone number for reference. * Delivery - Julio Henry MD - 11/21/2010 8:36 PM CDT Note Section Operative Note Date of Procedure: 11/21/2010 Time: Information for the patient's : Olvin Purdy [[id number]] Delivery Time: 1955 (11/21/102009) Pre-operative Diagnosis: 1. IUP @ 37w0d IUP 2. failed induction and failure to progress - arrest ofdilation Post -operative Diagnosis: same Procedure: primary section Incisions/Lacerations: low transverse uterus and Pfannensteil Surgeon: Keo Meza MD malt specifications control assistant: Julio Henry MD Anesthesia: epidural Pt Identification: 25 y.o. at 37w0d complications: hypertension and abnormal LFTs Labor: augmented and induced Labor complications: none Indications: See pre-op diagnosis above, H&P, and most recent progress note(s). Findings: male . Presentation: cephalic Apgars: Information for the patient's : Olvin Purdy [[id number]] 1 Minute Score: 8 (11/21/102008) 5 Minute Score: 9 (11/21/102008) Weight: Information for the patient's : Olvin Purdy [[id number]] Weight: 6 lb 15 oz (3.147 kg) [...] for the entire procedure. 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 Oncology and Hematology - [place] [address] [place] [address] [address] [place] [address] Ubaldo Cardenas MD [address] [facility] [address] [place] [address] documented as of this encounter [...] CDT) WBC 12.5(H) 4.0 - 9.8 K/uL [facility] RBC 4.18 3.90 - 4.90 M/uL [facility] HEMOGLOBIN 12.4 11.8 - 14.8 g/dL [facility] HEMATOCRIT 36.3 35.5 - 44.0 % [facility] MCV 86.8 82.0 - 99.0 fL [facility] MCH 29.7 27.2 - 32.6 pg [facility] MCHC 34.2 31.5 - 35.5 % [facility] PLATELETS 259 140 - 350 K/uL [facility] MPV 9.7 9.3 - 12.4 fL [facility] RDW 14.5 11.5 - 14.5 % [facility] RDW-STDEV 44.7 37.1 - 48.7 fL [facility] NEUTROPHILS 77(H) 45 - 70 % [facility] LYMPHOCYTES 16 16 - 45 % [facility] MONOCYTES 6 3 - 13 % [facility] EOSINOPHILS 0 0 - 7 % [facility] BASOPHILS 0 0 - 2 % [facility] NEUTROPHIL ABSOLUTE 9.69(H) 1.90 - 7.00 K/uL [facility] LYMPHOCYTE ABSOLUTE 2.00 0.70 - 4.50 K/uL [facility] MONOCYTE ABSOLUTE 0.79 0.10 - 1.30 K/uL [facility] EOSINOPHIL ABSOLUTE 0.04 0.00 - 0.70 K/uL [facility] BASOPHILS ABSOLUTE 0.02 0.00 - 0.20 K/uL [facility] Blood specimen (specimen) 11/21/2010 6:37 PM CDT 11/21/2010 6:46 PM CDT Keo Meza MD HEMATOLOGY ORDERABLE S Performing Organization Address City/[facility]/ZIP Co de Phone Number [facility] CLIA# [id number] [address] [place] [address] * TYPE AND SCREEN (11/21/2010 6:15 PM CDT) HISTORY CHECK History Checked [facility] SPECIMEN LIFE 3 days from drawdate [facility] ABO/RH TYPE B Positive [facility] ANTIBODY SCREEN Negative [facility] Blood specimen (specimen) 11/21/2010 6:15 PM CDT 11/21/2010 6:46 PM CDT Keo Meza MD BLOOD BANK ORDERABLE S INTERFACE SYSTEM Refer to clinic/hospital department [facility] CLIA# [id number] [address] [place] [address] * (ABNORMAL) URINALYSIS (11/20/2010 8:16 PM CDT) COLOR UA Yellow [facility] CLARITY UA Clear Clear [facility] SPECIFIC GRAVITY UA 1.009 1.001 - 1.035 [facility] PH UA 7.0 5.0 - 8.0 [facility] LEUKOCYTE ESTERASE UA Trace(A) Negative [facility] NITRITE UA Negative Negative [facility] PROTEIN UA Trace(A) Negative [facility] GLUCOSE UA Negative Negative [facility] KETONES UA 1+(A) Negative [facility] UROBILINOGEN UA <1 <=1 mg/dL [facility] BILIRUBIN UA Negative Negative [facility] BLOOD UA Negative Negative [facility] WBC UA 5 0 - 5 /HPF [facility] RBC UA 1 0 - 4 /HPF [facility] EPITHELIAL CELLS, URINE 2-5 /HPF [facility] Urine, clean catch 11/20/2010 8:16 PM CDT 11/20/2010 8:21 PM CDT Comment:URINE Julio Henry MD URINE ORDERABLES [facility] CLIA# [id number] [address] [place] [address] * URIC ACID (11/20/2010 7:40 PM CDT) URIC ACID 4.6 2.3 - 6.6 mg/dL [facility] Blood specimen (specimen) 11/20/2010 7:40 PM CDT 11/20/2010 7:47 PM CDT Julio Henry MD CHEMISTRY ORDERABLE S Performing Organization Address City/[facility]/ZIP Co de Phone Number [facility] CLIA# [id number] [address] [place] [address] * (ABNORMAL) LACTATE DEHYDROGENASE (11/20/2010 7:40 PM CDT) [facility] LD (LACTATE DEHYDROGENASE) 114(L) 135 - 214 U/L [facility] Blood specimen (specimen) 11/20/2010 7:40 PM CDT 11/20/2010 7:47 PM CDT Julio Henry MD CHEMISTRY ORDERABLE S Performing Organization Address [facility]/ZIP Co de Phone Number [facility] CLIA# [id number] [address] [place] [address] * (ABNORMAL) CBC WITH DIFFERENTIAL (11/20/2010 7:40 PM CDT) [facility] WBC 11.1(H) 4.0 - 9.8 K/uL [facility] RBC 4.30 3.90 - 4.90 M/uL [facility] HEMOGLOBIN 12.9 11.8 - 14.8 g/dL [facility] HEMATOCRIT 37.2 35.5 - 44.0 % [facility] MCV 86.5 82.0 - 99.0 fL [facility] MCH 30.0 27.2 - 32.6 pg [facility] MCHC 34.7 31.5 - 35.5 % [facility] PLATELETS 257 140 - 350 K/uL [facility] MPV 9.7 9.3 - 12.4 fL [facility] RDW 14.4 11.5 - 14.5 % [facility] RDW-STDEV 44.2 37.1 - 48.7 fL [facility] NEUTROPHILS 76(H) 45 - 70 % [facility] LYMPHOCYTES 17 16 - 45 % [facility] MONOCYTES 6 3 - 13 % [facility] EOSINOPHILS 1 0 - 7 % [facility] BASOPHILS 0 0 - 2 % [facility] NEUTROPHIL ABSOLUTE 8.49(H) 1.90 - 7.00 K/uL [facility] LYMPHOCYTE ABSOLUTE 1.92 0.70 - 4.50 K/uL [facility] MONOCYTE ABSOLUTE 0.65 0.10 - 1.30 K/uL [facility] EOSINOPHIL ABSOLUTE 0.06 0.00 - 0.70 K/uL [facility] BASOPHILS ABSOLUTE 0.01 0.00 - 0.20 K/uL [facility] Blood specimen (specimen) 11/20/2010 7:40 PM CDT 11/20/2010 7:47 PM CDT Julio Henry MD HEMATOLOGY ORDERABL ES Performing Organization Address City/[facility]/ZIP Co de Phone Number [facility] CLIA# [id number] [address] [facility] [address] [facility] [address] * AST (11/20/2010 7:40 PM CDT) AST 31 12 - 32 U/L [facility] Blood specimen (specimen) 11/20/2010 7:40 PM CDT 11/20/2010 7:47 PM CDT Julio Henry MD CHEMISTRY ORDERABLE S [facility] CLIA# [id number] [address] [facility] [place] [address] * (ABNORMAL) ALT (11/20/2010 7:40 PM CDT) ALT 48(H) 0 - 31 U/L [facility] Blood specimen (specimen) 11/20/2010 7:40 PM CDT 11/20/2010 7:47 PM CDT Julio Henry MD CHEMISTRY ORDERABLE S [facility] CLIA# [id number] [address] [place] [place] [address] documented in this encounter Visit Diagnoses Not on filedocumented in this encounter Active and Recently Administered [...] Sadler RN) 0858 (Given - Provider: Amisha Stein RN) ferrous sulfate (FEOSOL) tablet 325 mg (CANCELED) 325 mg, Oral, DAILY, First dose on Sun11/22/10 at 0900, Until Discontinued, Routine 0900 (Refused - Provider: Ivis Vega RN) 0804 (Given - Provider: Ivis Vega RN) 0857 (Given - Provider: Amisha Stein, JACK) HYDROcodone-acetaminop hen (NORCO) 5-325 mg per tablet [...] 1400, Routine 0629 (Given - Provider: Dania Alxeis RN) Continuous Medication Order 11/23/2010 11/24/2010 11/25/2010 meperidine (PF) 1,000 mg in sodium chloride 0.9 % 490 mL epidural 500 mL, Epidural, at 10 mL/hr, CONTINUOUS, Starting on Sun11/21/10 at 1915, Until Sun11/23/10 at 1914, (OB POST-OP PAIN SERVICE)[id number] oxytocin in lactated ringers (PITOCIN) 20 unit/1,000 [...] Jackie Fountain, JACK)0527 (Given - Provider: Jackie Fountain RN)1113 (Given - Provider: Ivis Vega, JACK)1548 (Given - Provider: Ivis Vega RN)1953 (Given - Provider: Liliana Sadler, JACK) 0015 (Given - Provider: Liliana Sadler RN)0422 (Given - Provider: Liliana Sadler, JACK)0858 (Given - Provider: Amisha Stein RN) HYDROcodone-acetaminop [...] Ivis Vega RN)1743 (Given - Provider: Angela Stanley, JACK)2334 (Given - Provider: Jackie Fountain RN) 0624 (Given - Provider: Jackie Fountain, JACK)1325 (Given - Provider: Ivis Vega RN)1818 (Given - Provider: Ivis Vega RN) 0016 (Given - Provider: Liliana Sadler, JACK)0620 (Given - Provider: Liliana Sadler, JACK) ondansetron (ZOFRAN ODT) tablet 4 mg [...] 7-10, Routine 1613 (Given - Provider: Angela Stanley, RN)2012 (Given - Provider: Angela Stanley RN) [...]
--- OUTSIDE RECORDS SUMMARY | 2024-08-03 01:43 | XMS_ITS | Encounter Summary ---
Author Organization [employer] Address [address] [place] [address] Care Team Providers Care Occasional Babysitter Name Role Phone (Excluded Provider) Mellisa Johnson DO Primary Care Provider Unavailable Reason for Visit * Reason Comments Wound Check c section 3 weeks ag o, pt states it started getting irritated and stuff is oozing out of it now area reddened and foul odor from area. pt states hot and cold flashes Encounter Details Date Type Department Care Team (Late st Contact Info) Description 12/11/2010 2:24 PM CDT - 12/11/2010 4:46 PM CDT Emergency [facility] Emergency Department [address] [place] [id number] Jaime Hodges MD [address] [facility] [address] [place], [place] [id number] Moniliasis, cutaneous Discharge Disposition: Home or Self Care Social [...] Sign Reading Time Taken Comments Blood Pressure 132/84 12/11/2010 4:45 PM CDT Pulse 76 12/11/2010 4:45 PM CDT Temperature 36.9 ??C (98.4 ??F) 12/11/2010 2:06 PM CD T Respiratory Rate 20 12/11/2010 2:06 PM CDT Oxygen Saturation 99% 12/11/2010 2:06 PM CDT Inhaled Oxygen Concentration - - Weight 106.6 kg (235 lb) 12/11/2010 2:06 PM CDT Height 167.6 cm (5' 6 ) 12/11/2010 2:06 PM CDT Body Mass Index 37.93 12/11/2010 2:06 PM CDT documented in this encounter Discharge Instructions * Attachments The following attachments cannot be sent through Care Everywhere. * CANDIDIASIS: AFTER YOUR VISIT (POLISH) documented in this encounter Medications at Time of Discharge Medication Sig Dispensed Refills Start Date End Date fluconazole (DIFLUCAN) 200 mg Oral tablet Take 1 Tab by mouth one time only for 1 dose. 1 Tab 0 12/11/2010 12/11/2010 Tolnaftate (TINACTIN) 1 % Topical SprA Apply 2 Sprays to affected area every 8 hours for 10 days. 1 Bottle 0 12/11/2010 12/21/2010 ibuprofen (MOTRIN) 600 mg Oral tablet Take [...] as of this encounter ED Notes * [facility], [facility] - 12/12/2010 10:24 AM CDT * Joana Anderson RN - 12/11/2010 4:45 PM CDT Pt discharged in NAD with instructions per Dr Hodges pt alert and oriented x 3 dc'd home per private vehicle, pt verbalized understanding of instructions * Jaime Hodges MD - 12/11/2010 4:40 PM CDT HISTORY OF PRESENT ILLNESS Vera M Romansh, a 25 y.o. female presents to the ED with a Chief Complaint of Wound Check Patient is a 25 y.o. female presenting with rash. The history is provided by the patient. Rash This is a new (this is a 25-year-old female that is 3 weeks post section complaining of a reddened rash in the incisional area with drainage for the last week or more) problem. The current episode started more than 1 week ago. The problem has been gradually worsening. The problem is associated with an unknown factor. There has been no fever. The rash is present on the abdomen. The pain is at a severity of 1/10. The pain is mild. The pain has been constant since onset. Associated symptoms include weeping. She has tried nothing for the symptoms. REVIEW OF SYSTEMS Review of Systems Constitutional: Negative for fever and chills. Gastrointestinal: Negative for nausea, vomiting and abdominal pain. Skin: Positive for rash. PAST MEDICAL HISTORY REVIEWED Past Medical History Diagnosis Date ??? Patient denies relevant medical history ??? MRSA (methicillin resistant Staphylococcus aureus) 08/2009 cysts on leg, never cultured-told it was staph and was given medication ??? High cholesterol Past Surgical History Procedure Date ??? Hx ear surgery ??? Hx cholecystectomy 02/2010 ??? Pr delivery only 11/21/2010 SECTION performed by JERICA JULIEN at [facility] L&D Family History Problem Relation Age of Onset ??? Diabetes Father ??? Thyroid Disease Father ??? Hypertension Mother ??? Diabetes Brother History Social History Main Topics ??? Smoking status: Current Everyday Smoker -- 0.5 packs/day for 10 years Types: Cigarettes ??? Smokeless tobacco: Never Used ??? Alcohol Use: No ??? Drug Use: No ??? Sexually Active: Yes -- Male partner(s) ALLERGIES Latex HOME MEDICATIONS Patient's Home Medications New Prescriptions for this Encounter FLUCONAZOLE (DIFLUCAN) 200 MG ORAL TABLET Take 1 Tab by mouth one time only for 1 dose. TOLNAFTATE (TINACTIN) 1 % TOPICAL SPRA Apply 2 Sprays to affected area every 8 hours for 10 days. Current Home Medications HYDROCODONE-ACETAMINOPHEN (NORCO) 5-325 MG [...] this Encounter PHYSICAL EXAM Initial Vitals BP 12/11/10 1406 146/93 mmHg Pulse 12/11/10 1406 83 Resp 12/11/10 1406 20 Temp 12/11/10 1406 98.4 ??F (36.9 ??C) Temp src 12/11/10 1406 Oral SpO2 12/11/10 1406 99 % Physical Exam Nursing note and vitals reviewed. Constitutional: She is oriented to person, place, and time. This is an obese young white female HENT: Head: Normocephalic. Eyes: Pupils are equal, round, and reactive to light. Neck: Normal range of motion. Cardiovascular: Normal rate, regular rhythm and normal heart sounds. Pulmonary/Chest: Effort normal and breath sounds normal. Abdominal: Soft. No tenderness. Musculoskeletal: Normal range of motion. Neurological: She is alert and oriented to person, place, and time. Skin: Skin is warm. Rash noted. There is erythema. There is erythema with skin excoriation and excessive moisture Psychiatric: She has a normal mood and affect. MDM Coding Reviewed: vitals and nursing note DIAGNOSTICS LAB: RADIOLOGY: EKG: PROCEDURES MEDICAL DECISION MAKING AND PLAN OF CARE Last vitals BP 146/93 Pulse 83 Temp(Src) 98.4 ??F (36.9 ??C) (Oral) Resp 20 Ht 5' 6 (1.676 m) Wt 106.595 kg BMI 37.93 kg/m2 SpO2 99% ? Yes The patient presents with what appears to be moniliasis in her skin overlying her section incision. It was cleansed and a dry dressing placed. The patient was given oral Diflucan with the plan for a repeat dose in one week. The patient was also instructed to cleanse this area 3 times dailywith soap and water, dry it well and applying Tinactin spray. The patient is to followup with her up scrub technician in 3-4 days. CLINICAL IMPRESSION Encounter Diagnoses Code Name Primary? 112.3V Moniliasis, cutaneous CASE DISCUSSED PATIENT COUNSELING Diagnostics reviewed and questions answered. Diagnosis, treatment options and plan of care discussed with understanding verbalized. DISPOSITION, EDUCATION AND MEDICATION RECONCILIATION Medications reconciled. See after visit summary for patient education on discharged patients. * Joana Anderson RN - 12/11/2010 4:[address] Hodges in to eval * Joana Anderson RN - 12/11/2010 3:30 PM CDT Pt resting on cart no c/o at this time, pt resp even and unlabored, pt waiting for disposition * Joana Anderson RN - 12/11/2010 2:52 PM CDT Pt waiting for MD tariq * Joana Anderson RN - 12/11/2010 2:51 PM CDT Female in with c/o had c section three weeks ago, states increase redness foul odor, drainage yellow in appearance, denies fever, states headache and lightheaded, with nausea, denies vomiting documented in this encounter Plan of Treatment Upcoming Encounters Date Type Department Care Team (Late st Contact Info) Description 10/14/2024 11: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 Office Visit [facility] Oncology and Hematology - Alirio [address] [place] [address] Ubaldo Cardenas MD [address] [facility] [address] [place] [address] documented as of this encounter Visit Diagnoses Diagnosis Moniliasis, cutaneous Candidiasis of skin and nails documented in this encounter Administered Medications Inactive Administered Medications - up to 3 most recent administrations Medication Order MAR Action Action Date Dose Rate Site fluconazole (DIFLUCAN) tablet 200 mg 200 mg, Oral, ONE TIME ONLY, 1 dose, On 12/11/10 at 1530, Routine Given 12/11/2010 3:51 PM CDT 200 mg documented in this encounter Active and Recently Administered Medications Times are shown in CDT. Scheduled Medication Order 12/09/2010 12/10/2010 12/11/2010 fluconazole (DIFLUCAN) tablet 200 mg (COMPLETED) 200 mg, Oral, ONE TIME ONLY, 1 dose, On 12/11/10 at 1530, Routine 1551 (Given - Provid er: Joana Anderson RN) documented in this encounter Care Teams Occasional Babysitter Relationship Specialty Start Date End Date (Excluded Provider) Mellisa Johnson DO PCP - General Family Practice 12/11/10 07/12/13 documented as of this encounter
--- OUTSIDE RECORDS SUMMARY | 2024-08-03 01:43 | XMS_ITS | Encounter Summary ---
Author Organization [facility] Address [address] [place] [address] Care Team Providers Care Roll Grinder Operator Name Role Phone Unavailable Primary Care Provider Unavailabl e Reason for Visit * Auth/Cert - Closed Specialty Diagnoses / Procedures Referred By Reva t Referred To Contact Obstetrics Diagnoses iufd,abd painl [facility] Labor [address] [place] [address] Referral ID Status Reason Start Date Expiration Date Visits Re quested Visits Authorized [id number] Closed 10/03/2010 04/01/2011 1 Encounter Details Date Type Department Care Team (Latest Contact Info) Description 10/02/2010 3:52 PM BOY'S ADVISER - 10/02/2010 6:38 PM BOY'S ADVISER Hospital Encounter [facility] & [address] [place] [address] [place] [address] [place] [phone] Discharge Disposition: Home or Self Care Social History Tobacco Use Types Packs/Day Years Used Date Smoking Tobacco: Never Assessed Comments Yes Sex and Gender Information Value Date Recorded Sex Assigned at Not on file Gender Identity Not on file Sexual Orientation Not on file documented as of this encounter Last Filed Vital Signs Vital Sign Reading Time Taken Comments Blood Pressure 133/73 10/02/2010 4:00 PM BOY'S ADVISER Pulse - - Temperature 36.7 ??C (98 ??F) 10/02/2010 4:16 PM BOY'S ADVISER Respiratory Rate 18 10/02/2010 4:16 PM BOY'S ADVISER Oxygen Saturation - - Inhaled Oxygen Concentration - - Weight 104.3 kg (230 lb) 10/02/2010 4:16 PM BOY'S ADVISER Height 167.6 cm (5' 6 ) 10/02/2010 4:16 PM BOY'S ADVISER Body Mass Index 37.12 10/02/2010 4:16 PM BOY'S ADVISER documented in this encounter Discharge Instructions * Discharge Instructions* Ree Geller RN - 10/02/2010 6:27 PM BOY'S ADVISER Follow-up: Follow-up with your doctor at your next scheduled appointment. Prescriptions given? yes Return to Labor and Delivery or notify [...] your home. Diet: Your diet is regular 'S ADVISER * Attachments The following attachments cannot be sent through Care Everywhere. * URINARY TRACT INFECTION IN : AFTER YOUR VISIT (IRAQI) documented in this encounter Medications at Time of Discharge Medication Sig Dispensed Refills Start Date End Date vit-iron fumarate-FA ( VITAMIN) 27-0.8 mg Oral Tab Take 1 Tab by mouth daily. 02/03/2017 oxyCODONE-acetaminophen (PERCOCET) 5-325 mg Oral tablet Take 1 Tab by mouth every 4 hours as needed for Pain. 10 Tab 0 10/02/2010 10/05/2010 nitrofurantoin (MACROBID) 100 mg Oral capsule Take 1 Cap by mouth 2 times daily. 14 Cap 0 10/02/2010 10/05/2010 documented as of this encounter Progress Notes * Edmond Ellington, [facility] - 10/04/2010 7:46 AM BOY'S ADVISER * Ree Geller RN - 10/02/2010 6:24 PM CST Pt home undelivered. Instructions and prescriptions given, all questions answered at this time. FHRreassuring and VSS. Pt ambulated to front. 'S ADVISER * Lesvia Shelton MD - 10/02/2010 6:23 PM CST R2 Progress Note Labs: Results for orders placed during the hospital encounter of 10/02/10 (from the past 24 hour(s)) TYPE AND SCREEN Component Value Range ??? SPECIMEN LIFE 3 days from drawdate ??? HISTORY CHECK History Checked ??? ANTIBODY SCREEN Negative ??? ABO/RH TYPE B Positive URINALYSIS WITH REFLEX CULTURE Component Value Range ??? URINE CULTURE ORDER Culture ordered DRUG SCREEN, URINE Component Value Range ??? COMMENT, TOXICOLOGY See Separate Comment ??? AMPHETAMINE QUAL, URINE Negative Negative ??? BARBITURATE QUAL, URINE Negative Negative ??? BENZODIAZEPINE QUAL, URINE Negative Negative ??? CANNABINOIDS QUAL, URINE Negative Negative ??? COCAINE QUAL URINE Negative Negative ??? OPIATE QUAL, URINE Negative Negative ??? PCP QUAL, URINE Negative Negative URINALYSIS Component Value Range ??? COLOR UA Pale Yellow ??? CLARITY UA Clear Clear ??? SPECIFIC GRAVITY UA 1.005 1.001-1.035 ??? PH UA 6.5 5.0-8.0 ??? LEUKOCYTE ESTERASE UA 1+ (*) Negative ??? NITRITE UA Negative Negative ??? PROTEIN UA Negative Negative ??? GLUCOSE UA Negative Negative ??? KETONES UA Negative Negative ? ? UROBILINOGEN UA <1 <=1 (mg/dL) ??? BILIRUBIN UA Negative Negative ??? BLOOD UA Negative Negative ??? WBC UA 2 0-5 (/HPF) ??? RBC UA 1 0-4 (/HPF) ??? EPITHELIAL CELLS, URINE 2-5 (/HPF) CBC WITH DIFFERENTIAL Component Value Range ??? WBC 10.5 (*) 4.0-9.8 (K/uL) ??? RBC 4.31 3.90-4.90 (M/uL) ??? HEMOGLOBIN 13.0 11.8-14.8 (g/dL) ??? HEMATOCRIT 37.0 35.5-44.0 (%) ??? MCV 85.8 82.0-99.0 (fL) ??? MCH 30.2 27.2-32.6 (pg) ??? MCHC 35.1 31.5-35.5 (%) ??? PLATELETS 275 140-350 (K/uL) ??? MPV 9.5 9.3-12.4 (fL) ??? RDW 13.6 11.5-14.5 (%) ??? RDW-STDEV 42.0 37.1-48.7 (fL) ??? NEUTROPHILS 74 (*) 45-70 (%) ??? LYMPHOCYTES 19 16-45 (%) ??? MONOCYTES 6 3-13 (%) ??? EOSINOPHILS 1 0-7 (%) ??? BASOPHILS 0 0-2 (%) ??? NEUTROPHIL ABSOLUTE 7.72 (*) 1.90-7.00 (K/uL) ??? LYMPHOCYTE ABSOLUTE 2.02 0.70-4.50 (K/uL) ??? MONOCYTE ABSOLUTE 0.65 0.10-1.30 (K/uL) ??? EOSINOPHIL ABSOLUTE 0.08 0.00-0.70 (K/uL) ??? BASOPHILS ABSOLUTE 0.01 0.00-0.20 (K/uL) COMPREHENSIVE METABOLIC PANEL Component Value Range ??? SODIUM 138 135-145 (mmol/L) ??? POTASSIUM 3.2 (*) 3.5-4.9 (mmol/L) ??? CHLORIDE 104 96-108 (mmol/L) ??? CO2 20 (*) 22-30 (mmol/L) ??? CALCIUM 10.0 8.6-10.2 (mg/dL) ??? BUN 6 6-20 (mg/dL) ??? CREATININE 0.48 (*) 0.51-0.95 (mg/dL) ??? GLUCOSE 86 65-99 (mg/dL) ??? TOTAL PROTEIN 6.9 6.3-8.6 (g/dL) ??? ALBUMIN 3.6 3.4-4.8 (g/dL) ??? BILIRUBIN TOTAL 0.2 0.2-1.0 (mg/dL) ??? ALKALINE PHOSPHATASE 225 (*) 35-104 (U/L) ??? AST 23 12-32 (U/L) ??? ALT 36 (*) 0-31 (U/L) ? ? GFR, >60 >=60 (mL/min/1.7 sq meter) ? ? GFR >60 >=60 (mL/min/1.7 sq meter) C-REACTIVE PROTEIN Component Value Range ??? CRP 0.8 0.0-0.8 (mg/dL) Hypokalemic - instructed patient to eat more foods high in potassium UA suggestive of UTI - Req for po Macrobid RLQ/back pain - labs NOT suggestive of appendicitis (crp 0.8, no leukocytosis), FHT remains classically reactive with +FM D/w Dr. Meza - d/c to home, f/u in office Lesvia Shelton MD, PgY2 Dept of Washroom Cleaner Pgr. [phone] 'S ADVISER documented in this encounter H&P Notes * Mae Heredia MD - 10/02/2010 4:09 PM CST Obstetric Admission H&P HPI: Vera Purdy is a 25 y.o. female with 29w6d weeks gestation by 1st trimester U/S who is being transferred from [facility] for RLQ pain, back pain, and inability to document heart beat by ultrasound. heart beat easily seen on ultrasound on admission. Patient reports sudden onset of RLQ pain this morning around 10:30. Intermittent, comes about every 15 min, lasts for 30-40 seconds. Patient describes it as the most severe pain she has ever felt. Also c/o diffuse constant back pain; patient reports it is all over from her low back all the way up, not worse on one side of the other. Patient had intercourse last night. Denies fever, chills, N/V, loss of appetite. NoVB, LOF. +FM. No constipation. Denies dysuria, blood in urine. She reports she was told she had a low placenta earlier in and was supposed to this re-imaged next week. Her has been otherwise uncomplicated. 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 Medical History: Past Medical History Diagnosis Date ??? Patient denies relevant medical history Surgeries: Past Surgical History Procedure Date ??? Hx cholecystectomy ??? Hx ear surgery Medications: Prescriptions prior to admission Medication Sig Dispense Refill ??? vit-iron fumarate-FA ( VITAMIN) 27-0.8 mg Oral Tab Take 1 Tab by mouth daily. Allergies: Review of patient's allergies indicates no known allergies. Family History: No family history on file. Social History: History Social History ??? Marital Status: Single Spouse Name: N/A Number of Children: N/A ??? Years of Education: N/A Occupational History ??? Not on file. Social History Main Topics ??? Smoking status: Not on file ??? Smokeless tobacco: Not on file ??? Alcohol Use: ??? Drug Use: ??? Sexually Active: Other Topics Concern ??? Not on file Social History Narrative ??? No narrative on file Review of Systems No fever, SOB, dysuria, or GI complaints Exam: Filed Vitals: 10/02/2010 4:00 PM 10/02/2010 4:16 PM BP: 133/73 Temp: 98 ??F (36.7 ??C) TempSrc: Oral Resp: 18 Height: 5' 6 (1.676 m) Weight: 230 lb (104.327 kg) General: Alert, no distress Lungs: Clear to auscultation bilaterally Heart: Regular rate and rhythm, no murmur Back: no CVA tenderness; no TTP Abdomen: Soft, gravid, tender to deep palpation of RLQ, no rebound/guarding, no pain in RLQ with palpation of LLQ Ext: Edema none SVE: closed/thick Presentation: breech heart tracin/ moderate variability/ accelerations present, decelerations absent [place]: quiet Lab Review No results found for this visit on 10/02/10 (from the past 24 hour(s)). Bedside U/S: Breech, posterior/fundal, 3#6oz (30w6d), DVP 6.03 cm TV: CL 4.08 cm; no evidence of low-lying placenta Assessment: 25 y.o. 29w6d weeks gestation. Plan: 1) RLQ and back pain - VSS, afebrile - differential dx includes appendicitis, kidney stone, round ligament pain; less likely pyelonephritis - no evidence of labor - toco quiet, SVE closed/thick, CL > 4 cm. GC/CT, BV sent. - CBC, CMP, CRP pending - IV hydration; keep NPO for now 2) status reassuring - Category 1 tracing - aga, normal fluid by bedside U/S 3) Will discuss with attending once labs returned. 4) RN discussed with attending. Mae Heredia MD 'S ADVISER documented in this encounter Miscellaneous Notes * Scanned Form - Stl Scanning, [facility] - 10/04/2010 1:27 PM BOY'S ADVISER * Scanned Form - Stl Scanning, [facility] - 10/04/2010 10:31 AM BOY'S ADVISER * Patient Instructions - Stl Scanning, [facility] - 10/04/2010 10:31 AM BOY'S ADVISER * Care Plan - Aminah Escoto - 10/02/2010 6:37 PM CST IV d/c'd. 'S ADVISER * Care Plan - Aminah Escoto - 10/02/2010 6:[address] Shelton here, labs reviewed, Dr. Meza notified. D/C inst. Given, d/c home with via w/c. 'S ADVISER * Care Plan - Aminah Escoto - 10/02/2010 4:29 PM CST Admitted to room # 30 from [facility] for c/o no FHR. Dr. Giovanna carpenter & here, u/s done, baby in breech position with FHR 150. EFM & toco applied, baby active, pt.c/o intermittent, lower right sided pain & cont. Lower back pain. 'S ADVISER documented in this encounter Plan of Treatment Upcoming Encounters Date Type Department Care Team (Late st Contact Info) Description 10/14/2024 11:00 AM BOY'S ADVISER Office Visit [facility] Oncology and Hematology - [place] [address] [place] [address] [facility] [address] [place] [address] Ubaldo Cardenas MD [address] [facility] [address] [place] [address] documented as of this encounter Procedures Procedure Name Priority Date/Time Associated Diagnosis Comments CBC WITH DIFFERENTIAL Stat 10/02/2010 4:50 PM BOY'S ADVISER C-REACTIVE PROTEIN Stat 10/02/2010 4: 50 PM BOY'S ADVISER COMPREHENSIVE METABOLIC PANEL Stat 10/02/2010 4:50 PM BOY'S ADVISER BACTERIAL VAGINOSIS STAIN Routine 10/02/2010 4:44 PM BOY'S ADVISER GC/CHLAMYDIA, GENITAL Routine 10/02/2010 4:44 PM BOY'S ADVISER (BROTH-ENRICHED) GROUP B STREP DETECTION Routine 10/02/2010 4:43 PM BOY'S ADVISER URINALYSIS WITH REFLEX CULTURE Stat 10/02/2010 4:26 PM BOY'S ADVISER DRUG SCREEN, URINE Routine 10/02/2010 4: 26 PM BOY'S ADVISER URINALYSIS W/REFLEX MICROSCOPIC Stat 10/02/2010 4:26 PM BOY'S ADVISER URINE CULTURE Stat 10/02/2010 4:26 PM BOY'S ADVISER TYPE AND SCREEN Stat 10/02/2010 4:15 PM BOY'S ADVISER documented in this encounter Results * C-REACTIVE PROTEIN (10/02/2010 4:50 PM BOY'S ADVISER) Pathologist [facility] CRP 0.8 0.0 - 0.8 mg/dL [facility] Blood specimen (specimen) 10/02/2010 4:50 PM BOY'S ADVISER 10/02/2010 5:00 PM BOY'S ADVISER Mae Rodriguez MD CHEMISTRY ORDERABLES [facility] CLIA# [id number] [address] [facility] [place] [place] [address] * (ABNORMAL) COMPREHENSIVE METABOLIC PANEL (10/02/2010 4:50 PM BOY'S ADVISER) SODIUM 138 135 - 145 mmol/L [facility] POTASSIUM 3.2(L) 3.5 - 4.9 mmol/L [facility] CHLORIDE 104 96 - 108 mmol/L [facility] CO2 20(L) 22 - 30 mmol/L [facility] CALCIUM 10.0 8.6 - 10.2 mg/dL [facility] BUN 6 6 - 20 mg/dL [facility] CREATININE 0.48(L) 0.51 - 0.95 mg/dL [facility] GLUCOSE 86 65 - 99 mg/dL [facility] TOTAL PROTEIN 6.9 6.3 - 8.6 g/dL [facility] ALBUMIN 3.6 3.4 - 4.8 g/dL [facility] BILIRUBIN TOTAL 0.2 0.2 - 1.0 mg/dL [facility] ALKALINE PHOSPHATASE 225(H) 35 - 104 U/L [facility] [...] and non- Americans is available on the [facility] Intranet at: [email or web address] Select: Lab Policies and Procedures Select: Reference Ranges - GFR Blood specimen (specimen) 10/02/2010 4:50 PM BOY'S ADVISER 10/02/2010 5:00 PM BOY'S ADVISER Mae Rodriguez MD CHEMISTRY ORDERABLES [facility] CLIA# [id number] [address] [place] [address] * (ABNORMAL) CBC WITH DIFFERENTIAL (10/02/2010 4:50 PM BOY'S ADVISER) WBC 10.5(H) 4.0 - 9.8 K/uL [facility] RBC 4.31 3.90 - 4.90 M/uL [facility] HEMOGLOBIN 13.0 11.8 - 14.8 g/dL [facility] HEMATOCRIT 37.0 35.5 - 44.0 % [facility] MCV 85.8 82.0 - 99.0 fL [facility] MCH 30.2 27.2 - 32.6 pg [facility] MCHC 35.1 31.5 - 35.5 % [facility] PLATELETS 275 140 - 350 K/uL [facility] MPV 9.5 9.3 - 12.4 fL [facility] RDW 13.6 11.5 - 14.5 % [facility] RDW-STDEV 42.0 37.1 - 48.7 fL [facility] NEUTROPHILS 74(H) 45 - 70 % [facility] LYMPHOCYTES 19 16 - 45 % [facility] MONOCYTES 6 3 - 13 % [facility] EOSINOPHILS 1 0 - 7 % [facility] BASOPHILS 0 0 - 2 % [facility] NEUTROPHIL ABSOLUTE 7.72(H) 1.90 - 7.00 K/uL [facility] LYMPHOCYTE ABSOLUTE 2.02 0.70 - 4.50 K/uL [facility] MONOCYTE ABSOLUTE 0.65 0.10 - 1.30 K/uL [facility] EOSINOPHIL ABSOLUTE 0.08 0.00 - 0.70 K/uL [facility] BASOPHILS ABSOLUTE 0.01 0.00 - 0.20 K/uL [facility] Blood specimen (specimen) 10/02/2010 4:50 PM BOY'S ADVISER 10/02/2010 5:00 PM BOY'S ADVISER Mae Rodriguez MD HEMATOLOGY ORDERABLE S [facility] CLIA# [id number] [address] [place] [address] * (ABNORMAL) BACTERIAL VAGINOSIS STAIN (10/02/2010 4:44 PM BOY'S ADVISER) FINAL MICRO REPORT Cells: epithelial cells > WBC's Lorna Score = 9 Interpretation : ??Consistent with bacterial vaginosis(A) [facility] Specimen from genital system (specimen) (Vaginal) 10/02/2010 4:44 PM BOY'S ADVISER 10/02/2010 5:14 PM BOY'S ADVISER Comment:VAGINAL Mae Rodriguez MD MICROBIOLOGY - GENER AL ORDERABLES Performing Organization Address [facility] Co de Phone Number [facility] CLIA# [id number] [address] [place] [address] * GC AND CHLAMYDIA DNA DETECTION (10/02/2010 4:44 PM BOY'S ADVISER) FINAL MICRO REPORT No Neisseria gonorrhoeae detected. No Chlamydia trachomatis detected. [facility] Specimen from genital system (specimen) (Endocervical) 10/02/2010 4:44 PM BOY'S ADVISER 10/02/2010 5:14 PM BOY'S ADVISER Comment:ENDOCERVICAL Narrative [facility] - 10/03/2010 11:53 AM BOY'S ADVISER All identification methods for Chlamydia trachomatis and Neisseria gonorrhoeae can yield false positive results. ??In circumstances where diagnosis could lead to adverse psychosocial impacts, additional testing is recommended. ??A negative test result does not exclude infection. ??Consultation with the lab is recommended whenever the test result is negative and the clinical indications strongly suggest Chlamydial or Gonorrhoeal infection. ??Culture is the only recommended procedure for diagnosing Chlamydial or Gonorrhoeal infection in cases of suspected child abuse. Mae Rodriguez MD MICRO - GEN ORDERABL ES COM Performing Organization Address City/[facility]/ZIP Co de Phone Number [facility] CLIA# [id number] [address] [place] [address] * STREPTOCOCCUS GROUP B CULTURE (10/02/2010 4:43 PM BOY'S ADVISER) FINAL MICRO REPORT No Streptococcus Group B isolated. [facility] Specimen of unknown material (specimen) (Vaginal) 10/02/2010 4:43 PM BOY'S ADVISER 10/02/2010 5:14 PM BOY'S ADVISER Comment:VAGINAL Mae Rodriguez MD MICROBIOLOGY - GENER AL ORDERABLES Performing Organization Address [facility] Co de Phone Number [facility] CLIA# [id number] [address] [place] [address] * URINE CULTURE (10/02/2010 4:26 PM BOY'S ADVISER) FINAL MICRO REPORT Polymicrobial growth present consistent with urethral stephanie and/or colonizing bacteria. [facility] 10/02/2010 4:26 PM BOY'S ADVISER 10/02/2010 5:15 PM BOY'S ADVISER Comment:URINE VOIDED Mae Rodriguez MD MICROBIOLOGY - GENER AL ORDERABLES Performing Organization Address [facility] de Phone Number [facility] CLIA# [id number] [address] [place] [address] * (ABNORMAL) URINALYSIS (10/02/2010 4:26 PM BOY'S ADVISER) COLOR UA Pale Yellow [facility] CLARITY UA Clear Clear [facility] SPECIFIC GRAVITY UA 1.005 1.001 - 1.035 [facility] PH UA 6.5 5.0 - 8.0 [facility] LEUKOCYTE ESTERASE UA 1+(A) Negative [facility] NITRITE UA Negative Negative [facility] PROTEIN UA Negative Negative [facility] GLUCOSE UA Negative Negative [facility] KETONES UA Negative Negative [facility] UROBILINOGEN UA <1 <=1 mg/dL [facility] BILIRUBIN UA Negative Negative [facility] BLOOD UA Negative Negative [facility] WBC UA 2 0 - 5 /HPF [facility] RBC UA 1 0 - 4 /HPF [facility] EPITHELIAL CELLS, URINE 2-5 /HPF [facility] 10/02/2010 4:26 PM BOY'S ADVISER 10/02/2010 4:51 PM BOY'S ADVISER Comment:URINE VOIDED Mae Rodriguez MD URINE ORDERABLES [facility] CLIA# [id number] [address] [place] [address] * DRUG SCREEN, URINE (10/02/2010 4:26 PM BOY'S ADVISER) COMMENT, TOXICOLOGY See Separate Comment [facility] Comment: Urine sample was not handled as a legal specimen and was received without a chain of custody. ??The result should be used only for medical purposes. False positive and erroneous results can occur due to cross-reacting substances and other factors. Depending on the clinical context, confirmation of all presumptive positive results by a more specific alternate method is recommended. ??A negative result indicates the analyte, if present, is below the screening threshold. Drug ? Ref. Range ?Screening Threshold Amphetamines ?Negative ? 1000 ng/mL Barbiturates ?Negative ?200 ng/mL Benzodiazepines ? Negative ?300 ng/mL Cannabinoids ?Negative ? 50 ng/mL Cocaine Metabolites ?? Negative ?300 ng/mL Opiates ? Negative ?300 ng/mL Phencyclidine ? Negative ? 25 ng/mL The cut-off threshold, known cross-reactive compounds, drugs,and specificity information for each of the urine drugs of abuse are available on the [facility] Intranet at: [email or web address] Select: Lab Policies & Procedures Select: Drugs of Abuse-[facility] To inquire about any potential cross-reactivity of a specific drug not listed at this site, please contact the Chemistry Lab at . AMPHETAMINE QUAL, URINE Negative Negative [facility] BARBITURATE QUAL, URINE Negative Negative [facility] BENZODIAZEPINE QUAL, URINE Negative Negative [facility] CANNABINOIDS QUAL, URINE Negative Negative [facility] COCAINE QUAL URINE Negative Negative [facility] OPIATE QUAL, URINE Negative Negative [facility] PCP QUAL, URINE Negative Negative [facility] Urine, clean catch 10/02/2010 4:26 PM BOY'S ADVISER 10/02/2010 4:51 PM BOY'S ADVISER Comment:URINE Keo Meza MD URINE ORDERABLES [facility] CLIA# [id number] [address] [facility] [place], [place] [address] * URINALYSIS WITH REFLEX CULTURE (10/02/2010 4:26 PM BOY'S ADVISER) URINE CULTURE ORDER Culture ordered [facility] Comment: Criteria for a reflex culture include one or more of the following: ??Abnormal nitrite, leukocyte esterase, WBCs or RBCs. ??Lack of qualifying criteria does not exclude the possiblity of a urinary tract infection. ??Dilute urine, drug interference, etc. may decrease the sensitivity of the criteria analytes. Urine, clean catch 10/02/2010 4:26 PM BOY'S ADVISER 10/02/2010 4:51 PM BOY'S ADVISER Comment:URINE VOIDED Mae Rodriguez MD URINE ORDERABLES Performing Organization Address City/[facility] Co de Phone Number [facility] CLIA# [id number] [address] [place] [address] * TYPE AND SCREEN (10/02/2010 4:15 PM BOY'S ADVISER) SPECIMEN LIFE 3 days from drawdate [facility] HISTORY CHECK History Checked [facility] ANTIBODY SCREEN Negative [facility] ABO/RH TYPE B Positive [facility] Blood specimen (specimen) 10/02/2010 4:15 PM BOY'S ADVISER 10/02/2010 5:00 PM BOY'S ADVISER Mae Rodriguez MD BLOOD BANK ORDERABLE S Performing Organization Address City/[facility] Co de Phone Number INTERFACE SYSTEM Refer to clinic/hospital department [facility] CLIA# [id number] [address] [place] [address] documented in this encounter Visit Diagnoses Not on filedocumented in this encounter Active and Recently Administered Medications
--- OUTSIDE RECORDS SUMMARY | 2024-08-03 01:44 | XMS_ITS | Continuity of Care Document ---
Author Organization [facility] Address [address] [place] [address] Phone Care Team Providers Care Glass Lined Tank Repairer Name Role Phone Amisha Barber Unavailable Unavailabl [...] - Active Procedures Procedure Date ROUTINE VENIPUNCTURE OFFICE [id number] SYST BP LT 130 MM HG DIAST BP < 80 MM HG OFFICE PTKSZ-ULQ-AJLIYFIS SYST BP LT 130 MM HG DIAST BP < 80 MM HG OFFICE CMYLE-BRR-FYJLRTYD SYST BP LT 130 MM HG DIAST BP < 80 MM HG Pt inelig neg scrn depres SCREENING FOR PAP (OBTAINING SPECIMEN) N OFFICE IZJXM-MXH-HSGIIXMG SYST BP LT 130 MM HG DIAST BP < 80 MM HG OFFICE NJGQN-EUU-[id number] SYST BP LT 130 MM HG DIAST BP < 80 MM HG ANTINUCLEAR ANTIBODIES (ROSALINDA) C-REACTIVE PROTEIN (CRP) CBC, INC PLATELETS AND DIFFERENTIAL COMPREHEN METABOLIC PANEL CMP LIPID PANEL RHEUMATOID FACTOR: QN RBC SED RATE, AUTOMATED THYROID STIMULATION HORMONE(TSH) 2021 ROUTINE VENIPUNCTURE OFFICE ZVDIU-HIZ-[id number] SYST BP LT 130 MM HG DIAST BP 80-89 MM HG CBC, INC PLATELETS AND DIFFERENTIAL COMPREHEN METABOLIC PANEL CMP HEMOGLOBIN A1C HGA1C, GLYCO HIV-1 AG W/HIV-1 & HIV-2 AB RBC SED RATE, AUTOMATED THYROID STIMULATION HORMONE(TSH) 2020 URINALYSIS, DIPSTICK (UA) - Office Lab O ROUTINE VENIPUNCTURE OFFICE KAWAS-WDF-UAZVYEWV SYST BP LT 130 MM HG DIAST BP < 80 MM HG ANTINUCLEAR ANTIBODIES (ROSALINDA) RHEUMATOID FACTOR: QN No Show Appt Charge No Show Appt Charge OFFICE YDFFM-[id number]-UCSHIAUY SYST BP GE 130 - 139MM HG DIAST BP 80-89 MM HG OFFICE XXLIH-LJL-DBWZIRII SYST BP LT 130 MM HG DIAST [...] Diagnoses Date Provider Providers Copied on Encounter [facility], [address], [place], [place], [address] , tel: [phone] Bernadine No Information 3 Gorge Lion. [address] [place], [place], [address], . tel:[phone] [facility], [address], [place], [place], [address] , tel: [phone] [facility] No Information 3 Gorge Lion. [address] [place], [place], [address], . tel:[phone] [facility], [address], [place], [place], [address] , tel: [phone] [facility] No Information 3 Bernadine Rashid. [address] [place], [place], [address], . tel:[phone] [employer], [address], [place], [address] , [place] tel: [phone] [place] No Information 0 3 Gorge Lion. [address], [place], [place], [address], [place]. tel:[phone] OFFICE MRLIP-RHX-CC [facility], [address], [place], [place], [address] , tel: [phone] [place] mmp (chief complaint) Body mass index [BMI] 32.0-32.9, adultArthralgia of multiple sitesEnlarged lymph nodesSpleen enlarged 3 Gorge Lion. [address], [place], [place], [address], [place]. tel:[phone] Referring Provider: Matthieu Campbell, [address], [place], [address]. [phone] OFFICE LOYOU-IYC-KP [facility], [address], [place], [place], [address] , [place] tel: [phone] Bernadine Patient encounter (chief complaint) Arthralgia of multiple sitesRheumatoid factor positiveSpleen enlargedEnlarge d lymph nodes 3 Wendy Jimenez. [address], [place], [place], [address], [place]. tel:[phone] Referring Provider: Matthieu Campbell, [address], [place], [address]. [phone] OFFICE TICCF-JXG-FJ [facility], [address], [place], [place], [address] , [place] tel:[phone] Bernadine Patient encounter (chief complaint) Chronic right-sided low back pain with right-sided sciatica 3 Wendy Jimenez. [address], [place], [place], [address], [place]. tel:[phone] Referring Provider: Matthieu Campbell, [address], [place], [address]. tel:[phone] OFFICE AWSNA-AQZ-OG [facility], [address], [place], [place], [address] , [place] tel:[phone] [place] mmp (chief complaint) Cervical cancer screeningBlurre d vision, bilateralLow serum iron 2 Gorge Lion. [address], [place], [place], [address], [place]. tel:[phone] Referring Provider: Matthieu Campbell, [facility], [place], [address]. tel:[phone] [facility], [address], [place], [place], [address] , [place] tel:[phone] Bernadine Patient encounter (chief complaint) Acute right-sided low back pain with right-sided sciaticaMuscle spasm 2 Wendy Jimenez. [address] [place], [address], [place]. tel:[phone] Referring Provider: Matthieu Campbell, [address] [facility], [place], [address]. [phone] OFFICE [facility]MD[facility], [address], [place], [place], [address] , [place] tel:[phone] [facility] Patient encounter (chief complaint) Arthralgia of multiple sitesRheumatoid factor positivePeriumb ilical abdominal painSpleen enlargedLipid screening 2 Gorge Lion. [address], [place], [place], [address], [place]. tel:[phone] Referring Provider: Matthieu Campbell, [address] [facility], [place], [address]. [phone] OFFICE [facility]WI[facility], [address], [place], [place], [address] , [place] tel:[phone] [place] mmp (chief complaint) Periumbilical abdominal painCyst of right ovaryUnintentio nal weight lossPCB (post coital bleeding)Spleen enlargedElevate d sed rate 1 Gorge Lion. [address] [place], [place], [address], . tel:[phone] Referring Provider: Matthieu Campbell, [address] [facility] B, [place], [address]. tel:[phone] [facility], [address], [place], [place], [address] , tel:[phone] [place] No Information 0 Adrian Sommers. [address] [facility] B, [place], [place], [address], [place]. tel:[phone] Referring Provider: Matthieu Campbell, [address] [facility] [address], [place], [address]. tel:[phone] [facility], [address], [place], [place], [address] , [place] tel: [phone] [place] No Information 9 Adrian Sommers. [address] [facility] [place], [address], [place]. tel:[phone] Referring Provider: Matthieu Campbell, [address] [place] [address] B, [place], [address]. [phone] OFFICE HEXRM-JSU-QQ [facility], [address], [place], [place], [address] , [place] tel:[phone] [place] Chronic Conditions (chief complaint)M MP (chief complaint) Bipolar disorder, unspecifiedMigr vitaly, unspecified, not intractable, without status migrainosusRigh t hip pain 9 Adrian Sommers. [address] [facility] [place], [address], . tel:[phone] Referring Provider: Matthieu Campbell, [address] [facility] B, [place], [address]. [phone] OFFICE EYOIV-AHF-ZO [facility], [address], [place], [place], [address] , tel: [phone] [facility] (chief complaint) Migraine, unspecified, not intractable, without status migrainosusBipo lar 1 disorderHeart murmur 9 Adrian Sommers. [address] [facility] [address], [place], [place], [address], . tel:[phone] Referring Provider: Matthieu Campbell, [address] [facility] [address], [place], [address]. tel:[phone] [facility], [address], [place], [place], [address] , tel: [phone] [facility] (chief complaint) Heart murmurColloid cyst of brainBipolar 1 disorderInconti nence of feces, unspecified fecal incontinence typeMigraine, unspecified, not intractable, without status migrainosus Jan- 9 Adrian Sommers. [address] [facility] [address], [place], [place], [address], . tel:[phone] Referring Provider: Matthieu Campbell, [address] [facility] [address], [place], [address]. tel:[phone] [employer], [address], [place], [place], [address] , [place] tel: [phone] [place] Chronic Conditions (chief complaint) Generalized anxiety disorderMorbid (severe) obesity due to excess caloriesEncount er for general adult medical examination without abnormal findingsMigrain e, unspecified, not intractable, without status migrainosusPoly cystic ovarian syndromeInterve rtebral disc disorders with radiculopathy, lumbar regionOther fatigueMajor depressive disorder, single episode, unspecified 9 Adrian Sommers. [address] [facility] B, [place], [place], [address], . tel:[phone] Referring Provider: Matthieu Campbell, [address] [facility] B, [place], [address]. tel:[phone] [employer], [address], [place], [place], [address] , [place] tel: [phone] [facility] (chief complaint) Intractable migraine without aura and with status migrainosusSnor ing 8 Adrian Sommers. [address] [place] [address], [address], [place]. tel:[phone] Referring Provider: Matthieu Campbell, [address] [place] [address], [place], [address]. tel:[phone] [facility], [address], [place], [place], [address] , [place] tel: [phone] [facility] (chief complaint) CLOTILDE (generalized anxiety disorder)Bulgin g of lumbar intervertebral disc Eden Hilda. [address] [place] [address], [address]. tel:[phone] Referring Provider: Rachid Seals, [address] [place] [address], [address]. tel:[phone] [facility], [address], [place], [place], [address] , [place] tel: [phone] [facility] follow up (chief complaint) Colloid cyst of brainBipolar depressionLumba r disc herniation with radiculopathyMu rmur, cardiac Eden Hilda. [address] [place] [address], [address]. tel:[phone] Referring Provider: Rachid Seals, [address] [place] [address], [place], [address]. tel:[phone] [facility], [address], [place], [place], [address] , [place] tel: [phone] [place] 2 week follow up (chief complaint) Fatigue, unspecified typeBipolar depression 7 Eden Hilda. [address] [place] [address], [address]. tel:[phone] Referring Provider: Rachid Seals, [address] [place] [address], [address]. tel:[phone] [facility], [address], [place], [place], [address] , [place] tel: [phone] [facility] follow up/depressi on (chief complaint) Lumbar disc herniation with radiculopathyBi polar depression 7 Eden Hilda. [address] [place] [address], [address]. tel:[phone] Referring Provider: Rachid Seals, [address] [place] [address], [place], [address]. tel:[phone] [facility], [address], [place], [place], [address] , [place] tel: [phone] [facility] Lumbar disc herniation with radiculopathyNe oplasm of uncertain behavior of skinDifficulty sleeping 7 Eden Hilda. [address] [place] [address], [address]. tel:[phone] Referring Provider: Rachid Seals, [address] [place] [address], [place], [address]. tel:[phone] [facility], [address], [place], [place], [address] , [place] tel: [phone] [facility] Bipolar depressionAnxie ty10 weeks gestation of 6 Eden Hilda. [address] [place] [address], [address]. tel:[phone] Referring Provider: Rachid eSals, [address] [place] [address], [place], [address]. tel:[phone] [facility], [address], [place], [place], [address] , [place] tel: [phone] [facility] Encounter for immunizationMix ed hyperlipidemiaM orbid obesity with body mass index of 40.0-44.9 in adultCervicalgi aAnxietyFamily planning 3-201 5 Eden Hilda. [address] [place] [address], [address]. tel:[phone] Referring Provider: Rachid Seals, [address] [facility], [place], [address]. tel:[phone] [facility], [address], [place], [place], [address] , [place] tel: [phone] [facility] Diarrhea Oct-2 7-201 5 Bialecki Eldad. [address] [place] [address], [address], [place]. tel:[phone] [facility], [address], [place], [place], [address] , [place] tel: [phone] [facility] Enlarged thyroidNeck painTenderness of right axillaIrregular menstrual cycle Sep-1 0-201 5 Eden Hilda. [address] [place], [place], [address]. tel:[phone] Referring Provider: Rachid Seals, [address] [place], [address]. tel:[phone] [facility], [address], [place], [place], [address] , [place] tel: [phone] [facility] Diarrhea Sep-0 2-201 5 Bialecki Eldad. [address] [place] [address], [id number], [place]. tel:[phone] Referring Provider: Belinda Esqueda, [address] [place] [address], [address]. tel:[phone] [facility], [address], [place], [place], [address] , [place] tel: [phone] [facility] DiarrheaLUQ abdominal pain Alexis-2 1-201 5 Bialecki Eldad. [address] [place] [address], [id number], [place]. tel:[phone] Referring Provider: Belinda Esqueda, [address] [place] [address], [address]. tel:[phone] [facility], [address], [place], [place], [address] , [place] tel: [phone] Bernadine Pain in limb May-0 5 Bernadine Rashid. [address] [facility], [place], [place], [address], [place]. tel:[phone] [facility] [address], [place], [place], [address] , [place] tel: [phone] [facility] Lymphedema of armPain of right upper armHistory of lymph node dissection of right axilla Apr-2 5 Eden Hilda. [address] [place], [place], [address]. tel:[phone] Referring Provider: Rachid Seals, [address] [place], [address]. tel:[phone] [facility] [address], [place], [place], [address] , tel: [phone] Bernadine AmenorrheaAxill lopez lymphadenopathy Bipolar depression Oct-2 5 Eden Hilda. [address] [place], [place], [address]. tel:[phone] Referring Provider: Rachid Seals, [address] [place] [address], [address]. tel:[phone] [facility], [address], [place], [address] , [place] tel: [phone] Bernadine Axillary lymphadenopathy Chronic diarrheaBipolar I disorder, most recent episode (or current) depressed, unspecifiedMorb id obesity with BMI of 40.0-44.9, adult Feb-2 0- 5 Eden Hilda. [address] [place], [place], [address]. tel:[phone] Referring Provider: Rachid Seals, [address] [facility], [place], [address]. tel:[phone] [facility] [address], [place], [place], [address] , [place] tel: [phone] Bernadine Bipolar I disorder, most recent episode (or current) depressed, unspecifiedPost erior cervical lymphadenopathy Scalp psoriasisAcute frontal sinusitis 0 5 Karey Stevens. [address] [place] [address], [place], [place], [address]. tel:[phone] Referring Provider: Rachid Seals, [address] [place] [address], [place], [address]. tel:[phone] [facility], [address], [place], [place], [address] , [place] tel: [phone] [facility] DiarrheaAbdomin al pain 2 5 Simonaecki Josedad. [address] [place], [place], [address], [place]. tel:[phone] Referring Provider: Hilda Wright, [address] [place] [address], [place], [address]. tel:[phone] [facility], [address], [place], [address] , [place] tel: [phone] [facility] Abdominal painDiarrheaMor bid obesity with BMI of 40.0-44.9, adultBipolar I disorder, most recent episode (or current) depressed, unspecifiedFami ly planning 4 Karey Stevens. [address] [place] [address], [address]. tel: [phone] Referring Provider: Rahcid Seals, [address] [place] [address], [place], [address]. tel:[phone] [facility], [address], [place], [place], [address] , [place] tel: [phone] [facility] DiarrheaAbdomin al painBipolar I disorder, most recent episode (or current) depressed, unspecifiedMorb id obesity with BMI of 40.0-44.9, adultFamily planning 4 Karey Stevens. [address] [place] [address], [address]. tel:[phone] Referring Provider: Rachid Seals, [address] [place] [address], [place], [address]. tel:[phone] [facility] [address], [place], [place], [address] , tel:[phone] Bernadine Mixed hyperlipidemiaL reece-term (current) use of other medicationsMixe d hyperlipidemiaL reece-term (current) use of other medicationsDisp lacement of lumbar intervertebral disc without myelopathyBipol ar I disorder, most recent episode (or current) depressed, unspecified 3 Eden Hilda. [address] [place] [address], [address]. tel:[phone] Referring Provider: Rachid Seals, [address] [place] [address], [address]. tel:[phone] [facility] [address], [place], [place], [address] , tel:[phone] Bernadine Lumbar herniated discStool incontinenceBip olar depression 2 Eden Hilda. [address] [place] [address], [address]. tel:[phone] Referring Provider: Rachid Seals, [address] [facility], [place], [address]. tel:[phone] [facility] [address], [place], [place], [address] , tel:[phone] Bernadine 1 mo follow up (chief complaint) Lumbar pain with radiation down left legBack pain, thoracicBowel incontinence 2 Eden Hilda. [address] [place] [address], [address]. tel:[phone] Referring Provider: Rachid Seals, [address] [place], [address]. tel:[phone] [facility] [address], [place], [place], [address] , tel:[phone] Bernadine back pain (chief complaint)a menorrhea (chief complaint) AmenorrheaBack painMorbid obesityElevated blood pressure reading without diagnosis of hypertension 2 Eden Hilda. [address] [facility], [place], [place], [address]. tel:[phone] Referring Provider: Rachid Seals, [address] [facility], [place], [address]. tel:[phone] [employer], [address], [place], [place], [address] , [place] tel: [phone] [facility] NATRL FAM PLN-AVOID PREGTOBACCO USE DISORDER Nov- 0 Bernadine Rashid. [address] [facility], [place], [place], [address], [place]. tel:[phone] [employer], [address], [place], [place], [address] , [place] tel: [phone] [facility] HAIR DISEASES NEC 0 Karey Stevens. [address] [facility], [place], [place], [address]. tel:[phone] [facility], [address], [place], [place], [address] , [place] tel: [phone] [place] POLYCYSTIC OVARIES 9 Mahsa Aragon. [address] , [place], [place], [address]. tel:[phone] [facility], [address], [place], [place], [address] , [place] tel: [phone] Bernadine MALAISE AND FATIGUE NECMIXED HYPERLIPIDEMIA 9 Bernadine Rashid. [address] [facility], [place], [place], [address], [place]. tel:[phone] [facility], [address], [place], [place], [address] , [place] tel: [phone] [facility] No Information 9 Karey Stevens. [address] [facility], [place], [place], [address]. tel:[phone] [facility], [address], [place], [place], [address] , [place] tel: [phone] Bernadine CHRONIC RHINITIS 9 Karey Stevens. [address] [facility] [address], [place], [place], [address]. tel:[phone] Family History Family Member Type Diagnosis Age At Onset Mother Problem (finding) Hearing impairment Father Problem (finding) Obesity Father Problem (finding) diabetes melli tus in first degree relative Father Problem (finding) raised blood lipids Immunizations Vaccine Date Status Comments influenza, injectable, quadrivalent, (3 years or older) administered Source: New Immuniza tion Record Payers Payer name Insurance type Covered democrat ID Authoriza tion(s) MEDICARE [id number] MEDICAID [facility] [id number] BCBS INACTIVE OUT OF STATE [id number] Social History Type Description Quantity Date Captured [...] Referral Referred To: Carey Partida MD [address] [place], [phone] Ordered: Referrals: Hematology. Carey Partida MD. 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 states that [facility] did an xray and said that it [...] ROSALINDA screen in May 2021. Referred to photo mask inspector at that time but states they didn't take her insurance and patient didn't follow up. Patient also takes she has abdominal pain, feels like there is a meat cutting block repairer in her abdomen. Reports a constant pain, [...] she had an echocardiogram last year at [facility]. Will try to get those records. She is not complaining of any chest pain, shortness of breath, edema. MMP She is here with multiple complaints. She's [...] at all with the headache.She went to [facility] emergency room on October 22 because of [...] yessi ign colloidal brain tumor removed at [facility] and was discharged about 0ne week [...] adult Labs done in office today. Sees photo mask inspector. Tramadol as needed for pain. controlled medication [...] R heumatoid factor positive MRI lumbar spine wit adelaida contrastcontinue prednisone, cyclobenzaprine, tramadol as directed by [...] coital bleeding) Follow up in 1-2 wee ks for pap testing and HPV testing. Will obtain labs today and review imaging from urgent care. Will start you on pantoprazole 40mg once daily to see if this improves your pain. Related to Periumbilical abdominal pain Requested imaging for urgent car e Related to Cyst of right ovary will check HIV and s ed rate and TSH today Related to Unintentional weight loss ??? Eat healthy, wel l-balanced meals that reduce the calories in your diet. If you are used to eating big portions, try to eat smaller portions of higher calorie foods and eat more vegetables and fruits. (see Mediterranean diet handout)??? Keep a daily food diary. You can also write down your weight to see how your changes have helped. BareedEE and other apps can help track calories. ??? Avoid alcohol. Alcoholic beverages add calories and may increase hunger. ??? A healthy goal for all adults is to exercise for 2 -3 hours or more each week, in addition to your regular activities. ??? Do some form of strength training 2 or more days a week. ??? It's hard to be active when you [...] amitriptyline for prophylaxis. Provided contact information for [facility] migraine clinic. I think there may [...] do nt have her hosp notes from [facility] to know if they worked it [...] Colloid cyst [facility] since having the surgery for [...] so will give her Dr Saldaña number- [phone] Related to Bipolar depression needs to make [...]
--- OUTSIDE RECORDS SUMMARY | 2024-08-03 01:44 | XMS_ITS | Continuity of Care Document ---
Author Organization [facility] Address [address] [place] [address] Phone Care Team Providers Care Release Of Information Specialist Name Role Phone Unavailable Unavailable Unavailable Advance Directives Directive Yes / No Effective Date File Name No Information Encounters Encounter Description Practice Location Reason(s) For Visit Diagnoses Date Provider Providers Copied on Encounter [facility], [address] [facility], [place], [place], [address], tel:[phone] [facility] No Information No Information Referring Provider: JERICA Velasquez, [address] [place], [address]. tel:[phone] Family History Family Member Type Diagnosis Age At Onset No Information Payers Payer name Insurance type Covered alliance party ID Authoriza tion(s) [employer] MEDICARE PART B INDEMNITY [id number] [facility] INDEMNITY [id number] Social History Type Description Quantity Date Captured Comments Sex Female Smoking Status No Information Chief Complaint And Reason For Visit No Information History Of Present Illness Encounter Date Complaint History Of Prese nt Illness No Information Instructions Date Instruction Additional Infor mation No Information Assessments Type Assessment Date No Information
== END 2024-07-28 07:51 | disposition home or self-care (01) ==
LOC: ANHSURGERY 07:57
PROVIDERS: PCP Nurse Practitioner Family; Visit Provider Neurological Surgery
DX: Z01.818 Encounter for other preprocedural examination (principal); M54.16 Radiculopathy, lumbar region
CPT/HCPCS: 36415; 80048; 81001; 85027; 85610; 85730; 87086

== ENCOUNTER 2024-07-29 13:58 | Emergency (ER) | payer MEDICARE, SELFPAY ==
--- NOTE | 2024-07-29 14:21 | ED.FEMALEGU ---
HPI - Female Genitourinary General Chief complaint: Urogenital-Female Stated complaint: STD testing Time Seen by Provider: 07/29/24 14:25 Source: patient, RN notes reviewed and old records reviewed Mode of arrival: ambulatory Limitations: no limitations History of Present Illness HPI Narrative: 39 year old female who present to [facility] care with complaints of having recent preop blood work done for up coming back surgery on August 20,with some WBC noted in her urine denies any burning or pain with urination or any urinary frequency. Patient concerned for infection and wants urine rechecked today. She also reports that she has noted small amount of recent whitish vaginal discharge with no odor and wants to be checked for STD's also. Patient reports that partner was diagnosed with Chlamydia a year ago and she was also treated at that time, is concern if partner cheating on her.,she denies any other partner. MD elicited complaint: UTI Onset (ago): day(s) (2-3) Location of symptoms: vaginal Severity: mild Vaginal discharge: white Vaginal bleeding: none Related Data Home Medications ?Medication ?Instructions ?Recorded ?Confirmed ?Last Taken ?Type ferrous sulfate 325 mg (65 mg 325 mg PO BID 10/30/23 07/28/24 02/15/24 History iron) tablet promethazine 25 mg tablet 25 mg PO DAILY PRN Nausea 12/30/23 07/28/24 02/19/24 History inulin 2 gram chewable tablet 2 g PO DAILY 07/28/24 07/28/24 Unknown History (Fiber Gummies) Allergies Allergy/AdvReac Type Severity Reaction Status Date / Time No Known Allergies Allergy Verified 07/28/24 08:03 Review of Systems Review of Systems: CONSTITUTIONAL: Denies fever, chills, or sweats. CARDIOVASCULAR: Denies chest pain, palpitations, or edema. RESPIRATORY: Denies cough or dyspnea. GASTROINTESTINAL: Denies abdominal pain, nausea, vomiting, or diarrhea. GENITOURINARY: Reports no dysuria, frequency, urgency. Denies flank pain or hematuria.reports small amount of white vaginal discharge with no odor SKIN: Denies rash or itching. MUSCULOSKELETAL: Denies back pain or myalgia. Denies CVA tenderness NEUROLOGIC: Denies headache All systems reviewed & are unremarkable except as noted in HPI and below PMFSH Past Medical History Medical History (Updated 07/29/24 @ 15:08 by Cait Dorman NP) BMI 40.0-44.9, adult Apical abscess Abdominal pain Low back pain radiating to both legs Migraine syndrome Colloid cyst of brain History of brain tumor Tobacco abuse Elevated rheumatoid factor Abnormal stools Colloid cyst of third ventricle hx of Abnormal positron emission tomography (PET) scan Murmur Low back pain Encounter to establish care Anemia Elevated liver enzymes RUQ pain Osteoporosis Spina bifida occulta Headache Arthritis Allergies Surgical History Surgical History S/P left oophorectomy Hx of lymph node excision Right axillary LN, 10/2014, follicular hyperplasia S/P cholecystectomy 02/2010 Previous section History of craniotomy 2017; removal of colloid cyst third ventricle Family History Family History Father Diabetes mellitus Hypertension Heart disease Thyroid disorder Mother Hypertension Grandparent Diabetes mellitus Leukemia Grandparent Heart disease Malignant neoplasm of prostate Social History Social History Smoking packs per day: 1 Smoking cigarettes per day: 20.0 Years smoked: 10 Smoking pack-years: 10.00 Smoking status: Former smoker Tobacco type: cigarettes Smoking end date: 03/13/24 Additional smoking assessment comments: CURRENTLY VAPING Alcohol intake: never Substance use: never Substance use type: does not use Do You Feel Safe in your Home?: Yes Lack of Transportation: No Lack of Food: Never True Current Housing: I Have Housing Concerned About Future Housing: No Difficulty Paying Gas/Electric Bills: No Difficulty Paying for Meds: No Currently Unemployed: No Education: High School Diploma/GED Difficulty w/ Childcare or Family Care: No Living arrangements: alone Spiritual care concerns: No Comments At time of signature, agree with nursing past medical, surgical, social and family history. There is no relevant family history pertinent to the presenting complaint Exam Narrative: GENERAL: Well-appearing, well-nourished, and in no acute distress. HEAD: Normocephalic, atraumatic. NECK: Supple.no lymphadenopathy CHEST: Clear to auscultation. No respiratory distress. SAO2 100% on room air HEART: Regular rate and rhythm. No murmur heard. Normal peripheral pulses. ABDOMEN: Soft, nontender, nondistended, normal active bowel sounds. No CVA tenderness, denies any urinary symptoms reports small amount of white vaginal discharge without odor or itching. EXTREMITIES: Normal range of motion. No edema.Chronic back pain with radiation down right leg scheduled for surgery to her back On August 20 SKIN: Warm, dry, no rash. NEURO: No focal deficits. Alert and oriented x3.no lymphadenopathy Course Course Emergency Course: Patient is aware of diagnosis, understands and agrees to treatment plan.? Anticipatory guidance given.? Patient agrees to follow-up as directed and is aware of reasons to seek care at the emergency department. Portions of this record may have been created with voice recognition software Level of Care: Express Care Visit Vital Signs Vital signs: Vital Signs Temperature 36.6 C 07/29/24 14:52 Pulse Rate 76 07/29/24 14:52 Respiratory Rate 16 07/29/24 14:52 Blood Pressure 136/77 07/29/24 14:52 Pulse Oximetry 100 07/29/24 14:52 Temperature 36.6 C 07/29/24 14:52 Pulse Rate 76 07/29/24 14:52 Respiratory Rate 16 07/29/24 14:52 Blood Pressure 136/77 07/29/24 14:52 Pulse Oximetry 100 07/29/24 14:52 MDM - Female Genitourinary MDM Narrative Medical decision making narrative: Exam findings and UA show no acute concerns or changes; patient is non-toxic appearing and is in no distress.? Patient is appropriate for outpatient treatment and follow-up. Differential Diagnosis Differential diagnosis: Likely urinary tract infection, cystitis and other (vaginal discharge, concern for UTI or STD exposure) Medical Records Attestation: I reviewed the patient's medical records. Lab Data Attestation: I reviewed the patient's lab results. Lab results narrative: urine dip sent with no abnormality noted, urine sent for STD panel and culture for bacterial vaginosis sent self swab Labs: Lab Results 07/29/24 07/29/24 07/29/24 Range/Units 14:36 14:40 15:13 POC Urine Color Light/pale POC Urine Clarity Clear POC Urine pH 7.0 POC Ur Specif [place] 1.015 POC Urine Protein Negative (Negative) POC Ur Glucose (UA) Negative (Negative) POC Urine Ketones Negative (Negative) POC Urine Blood Negative (Negative) POC Urine Nitrite Negative (Negative) POC Urine Bilirubin Negative (Negative) POC Urine Urobilinogen 0.2 POC U Leukocyte Esteras Negative (Negative) C. trachomatis (PCR) Not detected (NOT DETECTE) N. gonorrhoeae (PCR) Not detected (NOT DETECTE) T. vaginalis (PCR) Not detected (NOT DETECTE) Bact Vaginosis Panel Pending Critical Care Time Critical Care Time Critical Care Time: No Discharge Plan Discharge Clinical Impression: Concern about STD in female without diagnosis Patient Disposition: Home, Self-Care Condition: Stable Instructions: Antibiotic Form Additional Instructions: abstain from sexual intercourse until results are completed STD testing and bacterial vaginosis sent to lab for analysis Patient will be notified of test result and appropriate antibiotics will be ordered if indicated. If your symptoms persist, change or worsen significantly before you can contact your personal physician then please, without delay, go to the emergency department for further evaluation. Follow-up with PCP in 7-10 days or sooner if needed Follow up with PCP soon in regards to your blood pressure which is elevated above threshold for referral. Blood pressure above 120/80 may indicate pre-hypertension. 136/77 Patient Language: Salvadorean Prescriptions: No Action ferrous sulfate 325 mg (65 mg iron) tablet 325 mg PO BID rizatriptan [Maxalt] 10 mg tablet See Rx Instructions PO .COMPLEX Qty: 10 3RF Rx Instructions: take 1 tab at onset of headache; if no relief may repeat 1 tab after at least 2 hrs; max = 3 tabs/24 hr PO naproxen 500 mg tablet 500 mg PO BID PRN (Reason: pain) Qty: 60 0RF cyclobenzaprine 10 mg tablet 5 - 10 mg PO BID PRN (Reason: muscle spasm) Qty: 60 11RF promethazine 25 mg Tablet 25 mg PO DAILY PRN (Reason: Nausea) Fiber Gummies 2 gram tablet,chewable 2 g PO DAILY Follow-up/Referrals: Ira Metz NP [Primary Care Provider] - Time of Disposition: 15:09 [place] Coma Scale Eyes: Open Verbal: Oriented and Alert Motor: Follows Commands [place] Coma Total Score: 15
[2024-07-29 14:52] VITALS: BP 136/77; PULSE 76; RESP 16; TEMP 36.6; O2SAT 100
[2024-07-29 15:15] LABS: EDUAAPPEAR Clear; EDUABILI Negative (Negative); EDUABLOOD Negative (Negative); EDUACOLOR1 Light/Pale; EDUAGLUCOSE Negative (Negative); EDUAKETONE Negative (Negative); EDUALEUKO Negative (Negative); EDUANITRATE Negative (Negative); EDUAPROTEIN Negative (Negative); EDUASPGRAVITY 1.015; EDUAUROBILI 0.2
[2024-07-29 23:27] LABS: Trichomonas Vag PCR NOT DETECTED (NOT DETECTE)
[2024-07-29 23:52] LABS: Chlamydia trachomatis NOT DETECTED (NOT DETECTE); Neisseria gonorrhoeae PCR NOT DETECTED (NOT DETECTE)
[2024-07-31 09:13] LABS: Bacterial Vaginosis POSITIVE (NEGATIVE)
== END 2024-07-29 15:12 | disposition home or self-care (01) ==
PROVIDERS: Emergency Provider Registered Nurse; PCP Nurse Practitioner Family
DX: Z11.3 Encounter for screening for infections with a predominantly sexual mode of transmission (principal); N89.8 Other specified noninflammatory disorders of vagina; Z87.891 Personal history of nicotine dependence
CPT/HCPCS: 81003; 81513; 87491; 87591; 87661; 99213; G0463

== ENCOUNTER → 2024-08-20 00:48 | Day surgery (SDC) | payer MEDICARE, SELFPAY ==
--- NOTE | 2024-07-28 07:50 | PC.NURSE ---
Report to the Outpatient Waiting Room, entrance under the green pavilion located off [facility], at time _6am on date 08/20/24 . Planned Procedure Time: _7:30 am .? Time changes happen often and if your time is changed the preop area will call you the afternoon before. - You and your visitor will be asked to self-screen and do not enter if you have any COVID symptoms. Please call surgeon if you need to reschedule. - A mask is optional within the hospital at this time. Patients may have clear liquids (water, carbonated beverages, clear teas, apple juice) until 3 hours prior to surgery( 4:30 am) with a maximum of 20 ounces. - No food from midnight until time of surgery and no smoking. This includes no chewing gum, candy or mints. Take only the following medications with a SIP of water on the morning of surgery: NONE DO NOT STOP ANY OF YOUR OTHER PRESCRIPTION MEDICATIONS PRIOR TO SURGERY EXCEPT THE FOLLOWING Medications to discontinue per physician ___NAPROXEN PER DR SIMMS Please no make-up, nail latvian, hairspray, perfume, deodorant, or body powder the day of surgery.? No jewelry (including any body piercings) or valuables the day of surgery, leave them at home.? Please take a shower or bath the night before, or the morning of, surgery with an antibacterial soap.? Wear comfortable, loose fitting clothing.? Children are encouraged to wear pajamas. - Jewelry must be removed prior to entering the operating room.? Rings and piercings that are not removed may be cut off. - The hospital will not accept responsibility for valuables.? - Please leave all valuables, including medications, at home the day of surgery. If you are going home after surgery, a licensed new car driver must drive you home.? - NO public transportation without another adult if you receive anesthesia. - We recommend that an adult stay with you for 24 hours following discharge. - We also recommend that you do not drive, make important decision, drink alcoholic beverages, or take any drugs that were not prescribed by your health care provider for at least 24 hours after your discharge time. Follow any additional instructions given to you from your surgeon. VERBAL AND WRITTEN instructions given to __PATIENT and asked if any additional questions and then verbalized understanding. Patient advised to call surgeon office or pre surgery nurse liaison [phone] if any additional questions.
[2024-07-28 08:02] VITALS: BMI 40.7
[2024-07-28 08:46] VITALS: BP 133/74; PULSE 78; RESP 18; TEMP 36.7; O2SAT 98; BMI 40.7
[2024-08-20] VITALS (11 sets, daily range): BP systolic 111–155; BP diastolic 77–99; PULSE 74–91; RESP 12–20; TEMP 36.3–36.7; O2SAT 97–100; BMI 40.5
--- NOTE | ~2024-08-20 | XR_ITS ---
INTRAOPERATIVE FLUOROSCOPY: CLINICAL HISTORY: 39 years old Female; L4-5 HEMILAMINECTOMY FORAMINOTOMY PROCEDURE COMMENTS: Limited intraoperative fluoroscopy of the lumbar spine was performed. DOSE AREA PRODUCT: 0.95 Gy-cm2 FLUOROSCOPY TIME: 4.7 seconds FINDINGS/IMPRESSION: Please refer to operative note for further details. Reviewed, dictated and finalized at location A. IT COLLECTIONS CLERK
[2024-08-20] MEDS: LACTATED RINGERS 1,000 ML 125 ML IV CONT (06:51)
--- NOTE | 2024-08-20 07:04 | WPDANESEPPF ---
Anes - Initial Pre Proc Eval Procedure: Operation Date: 08/20/24 07:30 Proposed Procedures p Right L 4-5 Hemilaminectomy Foraminotomy - Kiki Jack MD Date/Time: 08/20/24 07:04 Surgeon: Kiki Jack MD Pre Op Diagnosis: Right Lumbar Radiculopathy Patient Data Age: 39 Gender: F Height: 1.68 m Weight: 114 kg Last Vital Signs Temp 36.7 C 08/20/24 06:41 Pulse 86 08/20/24 06:41 Resp 18 07/28/24 08:46 BP 138/77 08/20/24 06:41 Pulse Ox 99 08/20/24 06:41 O2 Del Method Room Air 08/20/24 06:41 Allergies Allergy/AdvReac Type Severity Reaction Status Date / Time No Known Allergies Allergy Verified 08/20/24 06:34 Home Medications ?Medication ?Instructions ?Recorded ?Confirmed ?Type ferrous sulfate 325 mg (65 mg 325 mg PO BID 10/30/23 08/20/24 History iron) tablet promethazine 25 mg tablet 25 mg PO DAILY PRN Nausea 12/30/23 08/20/24 History naproxen 500 mg tablet 500 mg PO BID PRN pain #60 tabs 04/23/24 08/20/24 Rx rizatriptan 10 mg tablet (Maxalt) See Rx Instructions PO .COMPLEX 04/23/24 08/20/24 Rx #10 tabs cyclobenzaprine 10 mg tablet 5 - 10 mg (0.5 - 1 x 10 mg) PO BID 05/02/24 08/20/24 Rx PRN muscle spasm #60 tabs inulin 2 gram chewable tablet 2 g PO DAILY 07/28/24 08/20/24 History (Fiber Gummies) Patient hx anesthesia problems: none Family hx anesthesia problems: none Results Review: All pre-operative results and documents have been reviewed as part of the pre-operative evaluation. FORMERLY [facility], [facility] Past Medical History Medical History BMI 40.0-44.9, adult Apical abscess Abdominal pain Low back pain radiating to both legs Migraine syndrome Colloid cyst of brain History of brain tumor Tobacco abuse Elevated rheumatoid factor Abnormal stools Colloid cyst of third ventricle hx of Abnormal positron emission tomography (PET) scan Murmur Low back pain Encounter to establish care Anemia Elevated liver enzymes RUQ pain Osteoporosis Spina bifida occulta Headache Arthritis Allergies Surgical History Surgical History S/P left oophorectomy Hx of lymph node excision Right axillary LN, 10/2014, follicular hyperplasia S/P cholecystectomy 02/2010 Previous section History of craniotomy 2018; removal of colloid cyst third ventricle Family History Family History Father Diabetes mellitus Hypertension Heart disease Thyroid disorder Mother Hypertension Grandparent Diabetes mellitus Leukemia Grandparent Heart disease Malignant neoplasm of prostate Social History Social History Years smoked: 2.5 Smoking status: Current every day smoker (vaping) Tobacco type: cigarettes Smoking end date: 03/13/24 Additional smoking assessment comments: CURRENTLY VAPING Alcohol intake: never Substance use: never Substance use type: does not use Do You Feel Safe in your Home?: Yes Lack of Transportation: No Lack of Food: Never True Current Housing: I Have Housing Concerned About Future Housing: No Difficulty Paying Gas/Electric Bills: No Difficulty Paying for Meds: No Currently Unemployed: No Education: High School Diploma/GED Difficulty w/ Childcare or Family Care: No Living arrangements: alone Spiritual care concerns: No Anes - Eval Final PreProcedure Day of Procedure 08/20/24 07:04 Patient weight: morbidly obese Heart: regular rate and rhythm Lungs: clear to auscultation Airway: Mallampati scale class II and special considerations poor dentition Neurological: alert and oriented Last oral intake: >/= 8 hours ASA classification: III Emergent: no Anesthetic plan: proceed Anesthesia type and monitoring: general ETT and standard monitoring Results Review: All pre-operative results and documents have been reviewed as part of the pre-operative evaluation. Informed Consent: The patient's anesthetic plan and its attendant risks and benefits were discussed with the patient/family/POA. Questions were solicited and answers provided to the satisfaction of the patient/family/POA.
--- NOTE | 2024-08-20 07:16 | P.HP_ITS ---
H&P: HPI History of Present Illness Date/Time: 08/20/24 07:16 Chief Complaint: back, right leg pain Narrative: From 10/03: Ms. Vitale is a 38-year-old female with no significant medical history who presents as an ER follow-up for back pain and an episode of urinary incontinence.? She reports at least a 10 year history of lower back pain for which she has previously had physical therapy and epidural steroid injections.? She also has a long history of intermittent bilateral leg pain, worse on the right side, which generally involves the entire thigh and radiates down the back of the leg into the bottom of the foot.? On the left side, she has pain more involving the back of the leg but not the foot.? The leg pain has become more consistent and now is currently on a daily basis.? Her pain is worse with sitt ing and lying down improves with standing and walking.? She takes tramadol during the day as well as Flexeril at night for her pain.? She had physical therapy several years ago and previously followed with Dr. Christopher for injections, but she also has not had these in several years as she did not find them to be helpful on a long-term basis.? On Sunday night, she was trying to sleep when she felt a snapping sensation in her back followed by burning.? She took some pain medication and muscle relaxer.? When she woke up in the morning, her underwear was soaked with urine which prompted her to contact her doctor and eventually go to the emergency room.? She otherwise has not had any episodes of urinary incontinence since then.? She has been ambulating without focal weakness in her legs.? She reports some paresthesias in the bottom of her feet but denies any numbness in her pelvic region or throughout her legs. She notably moved to the area recently and is not currently working. From 11/14: Since her last visit, she has been seen at [facility] who switched her muscle relaxer to gabapentin. She is currently taking 100 mg at nighttime which he finds somewhat. She is working gradually increasing her dose to 300 mg. Her previous complaints at this time or back pain that radiates down the right leg following an L4 dermatome. She gets some occasional symptoms on the left side, but this is not nearly as significant as the right. She generally feels better with standing and walking in notices pain mostly with twisting, bending, or lying down. She denies any further issues with urinary incontinence and thinks that these previous 2 episodes were related to some abdominal bloating that she experienced well on her menstrual cycle. From 05/22: She has had several a injections through pain management including L4-5 epidural steroid injections, medial branch blocks, and possibly an SI joint injection. The right transforaminal L4-5 epidural steroid injection was the most beneficial for her and gave her relief for about 2 months. She has not had the same amount of relief from the other injections. She finished physical therapy. She continues to describe pain down the back of the right leg into the foot. She describes this today and more of an S1 dermatome than an L4 dermatome. She also has periods of her back giving out where it can take her a couple weeks to be able to stand up straight and returning to normal activities. She has been taking gabapentin for pain. She denies any other medical issues since her last visit. Review of Systems Review of Systems: All systems reviewed & are unremarkable except as noted in HPI and below PMFSH Past Medical History Medical History BMI 40.0-44.9, adult Apical abscess Abdominal pain Low back pain radiating to both legs Migraine syndrome Colloid cyst of brain History of brain tumor Tobacco abuse Elevated rheumatoid factor Abnormal stools Colloid cyst of third ventricle hx of Abnormal positron emission tomography (PET) scan Murmur Low back pain Encounter to establish care Anemia Elevated liver enzymes RUQ pain Osteoporosis Spina bifida occulta Headache Arthritis Allergies Surgical History Surgical History S/P left oophorectomy Hx of lymph node excision Right axillary LN, 10/2014, follicular hyperplasia S/P cholecystectomy 02/2010 Previous section History of craniotomy 2018; removal of colloid cyst third ventricle Family History Family History Father Diabetes mellitus Hypertension Heart disease Thyroid disorder Mother Hypertension Grandparent Diabetes mellitus Leukemia Grandparent Heart disease Malignant neoplasm of prostate Social History Social History Years smoked: 2.5 Smoking status: Current every day smoker (vaping) Tobacco type: cigarettes Smoking end date: 03/13/24 Additional smoking assessment comments: CURRENTLY VAPING Alcohol intake: never Substance use: never Substance use type: does not use Do You Feel Safe in your Home?: Yes Lack of Transportation: No Lack of Food: Never True Current Housing: I Have Housing Concerned About Future Housing: No Difficulty Paying Gas/Electric Bills: No Difficulty Paying for Meds: No Currently Unemployed: No Education: High School Diploma/GED Difficulty w/ Childcare or Family Care: No Living arrangements: alone Spiritual care concerns: No Meds Home Medications and Allergies Home Medications ?Medication ?Instructions ?Recorded ?Confirmed ?Type ferrous sulfate 325 mg (65 mg 325 mg PO BID 10/30/23 08/20/24 History iron) tablet promethazine 25 mg tablet 25 mg PO DAILY PRN Nausea 12/30/23 08/20/24 History naproxen 500 mg tablet 500 mg PO BID PRN pain #60 tabs 04/23/24 08/20/24 Rx rizatriptan 10 mg tablet (Maxalt) See Rx Instructions PO .COMPLEX 04/23/2408/20 Rx #10 tabs cyclobenzaprine 10 mg tablet 5 - 10 mg (0.5 - 1 x 10 mg) PO BID 05/02/24 08/20/24 Rx PRN muscle spasm #60 tabs inulin 2 gram chewable tablet 2 g PO DAILY 07/28/24 08/20/24 History (Fiber Gummies) Allergies Allergy/AdvReac Type Severity Reaction Status Date / Time No Known Allergies Allergy Verified 08/20/24 06:34 Vital Signs Vital Signs - 24 hr 08/20/24 06:41 Temperature 98.1 F Pulse Rate 86 Blood Pressure 138/77 Pulse Oximetry 99 Oxygen Delivery Room Air Exam Narrative: Decreased sensation to light touch in left lower inner leg Unless otherwise stated above, the patient's physical exam is as follows: General: -Well developed and well nourished. No a cute distress. Cooperative with exam. Mental status: -Awake and oriented to person, place, an d time. Affect is normal. -Fund of knowledge appropriate -Recent and remote memory are intact -Attention span and concentration appear normal -Language function is normal -There is no evidence of aphasia in conv ersational speech. Cranial nerves: -CN II: Visual verma full to bedside co nfrontation -CN III, IV, : Pupils equal, round, an d reactive to light; extraocular movements, no ptosis, no nystagmus -CN V: Facial sensation intact in V1 thr ough V3 distributions -CN VII: Face symmetric -CN VIII: Hearing intact to conversation al speech -CN IX, X: Palate elevates symmetrically ; normal phonation -CN XI: Symmetric full strength of mccall ocleidomastoid and trapezius muscles -CN XII: Tongue protrudes midline Integumentary: -No obvious skin lesions or masses Motor: -Muscle tone normal without spasticity o f flaccidity. No atrophy. No fasciculations. -No pronator drift -Right upper extremity: deltoid 5/5, bic eps 5/5, triceps 5/5, wrist extensors 5/5, wrist flexors 5/5, intrinsics 5/5 -Left upper extremity: deltoid 5/5, gage ps 5/5, triceps 5/5, wrist extensors 5/5, wrist flexors 5/5, intrinsics 5/5 -Right lower extremity: iliopsoas 5/5, q uadriceps 5/5, hamstrings 5/5, tibialis anterior 5/5, gastroc-soleus 5/5, EHL 5/5 -Left lower extremity: iliopsoas 5/5, qu adriceps 5/5, hamstrings 5/5, tibialis anterior 5/5, gastroc-soleus 5/5, EHL 5/5 Sensory: -Intact to light touch throughout -Normal proprioception throughout Reflexes: -1-2+ DTR's throughout -No Comer's, clonus, or Babinski bilat erally Musculoskeletal: -Lumbar spine: no tenderness to palpatio n, no pain, and normal lumbosacral spine movements -Yvpcorex-lpp-rxokr test negative -Hip: normal range of motion, no crepitu s bilaterally. No pain reproduced on ANICETO or FAIR testing bilaterally -Knee: no instability, subluxation or la xity, and no crepitus bilaterally I personally reviewed the dynamic lumbar x-rays that do not show evidence of instability in flexion or extension I personally reviewed the MRI lumbar spine that shows degenerative discs L4-5 and L5-S1. At L4-5, there is right lateral recess stenosis Assessment and Plan Assessment and plan (1) Lumbar radiculopathy, right: Code(s): M54.16 - Radiculopathy, lumbar region Status: Acute Plan Ms. Vitale is a 39-year-old female with a long history of low back pain and more recent development of consistent right radicular leg pain which has been unresponsive to physical therapy and multiple injections with pain management. In the past, she had described her pain in a dermatome more consistent with an L4 or L5 distribution, but today, she describes pain involving more of an S1 distribution. She does have decreased sensation to light touch in L4 dermatome. She has an MRI lumbar spine showing a disc bulge at L4-5 causing right lateral recess stenosis primarily. I do not see any stenosis at L5-S1. She also had dynamic x-rays that do not show instability with flexion or extension. I reviewed the imaging with the patient. Ultimately, I have offered her surgery in the form of right L4-5 hemilaminectomy and foraminotomy. We discussed surgery in detail including risks, expected recovery, and restrictions after surgery. We discussed that, while her pain is not classically in an L5 dermatome, it is reassuring to know that the injections at this level gave her significant relief for a period of time. We also discussed that this surgery may not help with her back issues in her chronic back pain or with the episodes in which her back gives out. We discussed that the goal of surgery is primarily to help the leg symptoms. She expressed understanding and would like to proceed as discussed.
--- NOTE | 2024-08-20 07:16 | WPDHPUPDATE1 ---
History and Physical Update Update Date/Time: 08/20/24 07:16 History and Physical has been reviewed, including an updated exam of the patient. There are NO changes in the patient's condition. Risks, benefits, and alternatives have been discussed and questions answered. Patient agrees to proceed with procedure.
[2024-08-20] MEDS: ceFAZolin 2 GM/D5W 50 ML 2 GM/50 ML BAG IVPB (07:27)
[2024-08-20] MEDS: BUPIVACAINE/EPINEPHRINE 0.5% 50 ML VIAL 30 ML INFILTRATE (08:08)
--- NOTE | 2024-08-20 09:13 | PM.OP ---
Procedure Note - Brief Procedure Note - Brief Date of procedure: 08/20/24 Right Lumbar Radiculopathy Post-op diagnosis: Same Procedure performed: Right L4-5 hemilaminectomy, foraminotomy Surgeon: Kiki Jack MD Anesthesia: GETA Findings: Right L4-5 hemilaminectomy without complication Drains: No Packing: No Pathology: None sent Complications: None Condition: Stable Disposition: PACU
--- NOTE | 2024-08-20 09:22 | P.OP_ITS ---
Procedure Note - Detailed Date of Procedure 08/20/24 Pre-op Diagnosis Right Lumbar Radiculopathy Post-op Diagnosis Same Procedure Performed 1. Right L4-5 hemilaminectomy and foraminotomy 2. Use of C-arm for fluoroscopy 3. Use of microscope Surgeon Kiki Jack MD [employer] Anesthesia General Indications Ms. Vitale is a 39-year-old female with a long history of low back pain and more recent development of consistent right radicular leg pain which has been unresponsive to physical therapy and multiple injections with pain management. In the past, she had described her pain in a dermatome more consistent with an L4 or L5 distribution, but today, she describes pain involving more of an S1 distribution. She does have decreased sensation to light touch in L4 dermatome. She has an MRI lumbar spine showing a disc bulge at L4-5 causing right lateral recess stenosis primarily. I do not see any stenosis at L5-S1. She also had dynamic x-rays that do not show instability with flexion or extension. I reviewed the imaging with the patient. Ultimately, I have offered her surgery in the form of right L4-5 hemilaminectomy and foraminotomy. We discussed surgery in detail including risks, expected recovery, and restrictions after surgery. We discussed that, while her pain is not classically in an L5 dermatome, it is reassuring to know that the injections at this level gave her significant relief for a period of time. We also discussed that this surgery may not help with her back issues in her chronic back pain or with the episodes in which her back gives out. We discussed that the goal of surgery is primarily to help the leg symptoms. She expressed understanding and would like to proceed as discussed. Risks of surgery include bleeding, pain, infection, CSF leak, nerve injury, failure to relieve symptoms, and anesthetic complications. Description of Procedure The patient was brought to the operating room, and general anesthesia was induced. The patient was placed prone on the Kana frame, and all pressure points were padded. Compression devices were placed on the patient's calves. The skin was cleaned with alcohol. The C-arm was brought onto the field to localize the appropriate disc space and assist with incisional planning. The previous incision was marked. The area was prepped and draped in usual sterile fashion. A time out was conducted, and pre-operative antibiotics were administered. Local anesthesia was injected into the planned incision. A midline skin incision was opened with a 10-blade scalpel, and dissection was carried down with the monopolar cautery to open the fascia on the right side of midline. Once the spinous processes were located, a subperiosteal dissection was performed to expose the lamina on the right, taking care to avoid the facet. A self-retaining retractor was placed. The C-arm was brought in to confirm the correct level. The microscope was draped and brought into the field for microsurgical dissection. The high-speed drill was used to thin the right L4 lamina to the ligamentum flavum. A currette was used to separate the ligament from the bone which was then removed with the Kerrison. The ligamentum was then elevated with a currette and removed. A kerrison was passed along the traversing nerve root and followed distally to remove bone into the foramen. A Woodsen was used to verify adequate decompression at the cranial and caudal aspects of the decompression as well as into the foramen. Hemostasis was ensured with the bipolar, surgiflo, and cottonoids, and the area was copiously irrigated. No evidence of CSF leak was noted. The fascia was closed with 0-Vicryl in an interrupted fashion. The soft tissue was again copiously irrigated. The dermis was closed with 2-0 then 3-0 interrupted Vicryl. The skin was closed with 4-0 monocryl. Skin glue was applied. The patient was returned supine on the stretcher, extubated, and transferred to PACU without incident. [id number], [id number] Estimated Blood Loss 100 Drains No Packing No Pathology None sent Complications None Condition Stable Disposition PACU [facility] Billing Surgery - Charge Forward: Surgery Billing
[2024-08-20] MEDS: LACTATED RINGERS 1,000 ML 30 ML IV CONT (09:23)
[2024-08-20] MEDS: ONDANSETRON INJ 4 MG/2 ML VIAL IV PUSH (09:35)
[2024-08-20] MEDS: HYDROmorphone HCL INJ (*CRX) 1 MG/ML SYR 0.25 MG IV PUSH ×7 (09:43→11:15)
[2024-08-20] MEDS: diphenhydrAMINE HCl INJ 50 MG/ML VIAL 25 MG IV PUSH (10:49)
[2024-08-20] MEDS: SCOPOLAMINE 1 MG PATCH 1 PATCH TRANSDERM (10:49)
[2024-08-20] MEDS: oxyCODONE HCL (*CRX) 5 MG TAB IR PO (12:03)
== END | disposition home or self-care (01) ==
PROVIDERS: PCP Nurse Practitioner Family; Visit Provider Neurological Surgery
PROC: (CPT 63030; principal; 2024-08-20 07:30)
DX: M54.16 Radiculopathy, lumbar region (principal); R01.1 Cardiac murmur, unspecified; D64.9 Anemia, unspecified; M81.0 Age-related osteoporosis without current pathological fracture; Q76.0 Spina bifida occulta; M19.90 Unspecified osteoarthritis, unspecified site; F17.290 Nicotine dependence, other tobacco product, uncomplicated; E66.01 Morbid (severe) obesity due to excess calories; Z68.41 Body mass index [BMI] 40.0-44.9, adult; Z79.1 Long term (current) use of non-steroidal anti-inflammatories (NSAID); Z98.890 Other specified postprocedural states; Z90.49 Acquired absence of other specified parts of digestive tract; Z80.6 Family history of leukemia; Z80.42 Family history of malignant neoplasm of prostate; Z82.49 Family history of ischemic heart disease and other diseases of the circulatory system
CPT/HCPCS: 63047; 63048; 99199; A9270; J0330; J0690; J1100; J1171; J1200; J2003; J2250; J2405; J2704; J3010; J7120

== ENCOUNTER 2024-09-24 13:26 | Outpatient (CLI) | payer MEDICARE, SELFPAY ==
--- OUTSIDE RECORDS SUMMARY | 2024-09-24 13:30 | XMS_ITS | Clinical Summary ---
Author Organization [facility] Address [address] [place] [address] Care Team Providers Care Retail Pricing Coordinator Name Role Phone Diasha Staley MD Primary Care Provider + Allergies [...] 07/25/2023 Assessment & Plan (09/17/2023 2:32 PM SERVICES ENGINEER): Unable to tolerate bupropion, discussed possibly starting chantix vs gum/patches, she plans to try patches. Assessment & Plan (07/25/2023 9:24 AM SERVICES ENGINEER): We discussed the risks of smoking including cardiovascular disease, pulmonary disease, osteoporosis and cancer risks. We talked about reducing risks through smoking cessation. We reviewed approaches to quitting smoking including behavioral changes; nicotine replacement with gums, patches, lozenges; medications such as buproprion or chantix. I also gave resources such as [facility] smoking cessation clinic and 0-769-UCBP-NOW for additional support. I spent 4 minutes discussing smoking and smoking cessation. Rx for bupropion sent. Chlamydia contact 03/26/2023 Psoriatic arthritis 02/20/2023 Assessment & Plan (07/25/2023 9:24 AM SERVICES ENGINEER): Patient transitioning care to [facility], had been on steroids and leflunomide, stopped on her own, feels her symptoms are stable. Will refer to rheumatology. Assessment & Plan (02/20/2023 1:57 PM CDT): Follows with rheumatology. Stable. History of gestational diabetes 02/20/2023 Lymphadenopathy 02/20/2023 Assessment & Plan (07/25/2023 9:25 AM SERVICES ENGINEER): Has had lymph node dissection in the past, with benign pathology, notes worsening again, especially since off steroids. Will refer to hematology for further evaluation. Assessment & Plan (02/20/2023 1:57 PM CDT): Has had lymph node dissection in the past, with benign pathology. Has follow up with hematology scheduled. Will monitor. Lumbar disc herniation with radiculopathy 2016 Assessment & Plan (09/17/2023 2:31 PM SERVICES ENGINEER): Patient currently taking tramadol daily as well [...] Date Smoking Tobacco: Every Day Cigarettes 1 12.1 Started: 2012 Smokeless Tobacco: Never Tobacco Cessation:Ready [...] on file Legal Sex Female 4:23 PM SERVICES ENGINEER Gender Identity Not on file Sexual Orientation Not on file Obstetrics History Last Filed Vital Signs Vital Sign Reading Time Taken Comments Blood Pressure 120/80 09/17/2023 9:43 AM SERVICES ENGINEER Pulse 88 09/17/2023 9:43 AM SERVICES ENGINEER Temperature - - Respiratory Rate - - Oxygen Saturation 98% 09/17/2023 9:43 AM SERVICES ENGINEER Inhaled Oxygen Concentration - - Weight 97.5 kg (214 lb 14.4 oz) 09/17/2023 9:43 AM SERVICES ENGINEER Height 167.6 cm (5' 6 ) 09/17/2023 9:43 AM SERVICES ENGINEER Body Mass Index 34.69 09/17/2023 9:43 AM SERVICES ENGINEER Plan of Treatment Health Maintenance Due Date [...] to complete this topic Insurance MEDICARE MEDICARE [place] [facility] Care Teams Retail Pricing Coordinator Relationship Specialty Start Date End Date Daisha Staley MD [address] [place] [address] DR Brett MON [address] [place] [id number] PCP - General Internal Medicine 02/06/23
--- OUTSIDE RECORDS SUMMARY | 2024-09-24 13:30 | XMS_ITS | Referral Summary ---
Author Organization [facility] Address [address] [place] [address] Care Team Providers Care [employer] Name Role Phone Daisha Staley MD Primary [...] 07/25/2023 Assessment & Plan (09/17/2023 2:32 PM TECHNICAL SPECIALIST CYTOGENETICS): Unable to tolerate bupropion, discussed possibly starting chantix vs gum/patches, she plans to try patches. Assessment & Plan (07/25/2023 9:24 AM TECHNICAL SPECIALIST CYTOGENETICS): We discussed the risks of smoking including cardiovascular disease, pulmonary disease, osteoporosis and cancer risks. We talked about reducing risks through smoking cessation. We reviewed approaches to quitting smoking including behavioral changes; nicotine replacement with gums, patches, lozenges; medications such as buproprion or chantix. I also gave resources such as [facility] smoking cessation clinic and 2-608-CBMU-NOW for additional support. I spent 4 minutes discussing smoking and smoking cessation. Rx for bupropion sent. Chlamydia contact 03/26/2023 Psoriatic arthritis 02/20/2023 Assessment & Plan (07/25/2023 9:24 AM TECHNICAL SPECIALIST CYTOGENETICS): Patient transitioning care to [facility], had been on steroids and leflunomide, stopped on her own, feels her symptoms are stable. Will refer to rheumatology. Assessment & Plan (02/20/2023 1:57 PM CDT): Follows with rheumatology. Stable. History of gestational diabetes 02/20/2023 Lymphadenopathy 02/20/2023 Assessment & Plan (07/25/2023 9:25 AM TECHNICAL SPECIALIST CYTOGENETICS): Has had lymph node dissection in the past, with benign pathology, notes worsening again, especially since off steroids. Will refer to hematology for further evaluation. Assessment & Plan (02/20/2023 1:57 PM CDT): Has had lymph node dissection in the past, with benign pathology. Has follow up with hematology scheduled. Will monitor. Lumbar disc herniation with radiculopathy 2016 Assessment & Plan (09/17/2023 2:31 PM TECHNICAL SPECIALIST CYTOGENETICS): Patient currently taking tramadol daily as well [...] on file Legal Sex Female 4:23 PM TECHNICAL SPECIALIST CYTOGENETICS Gender Identity Not on file Sexual Orientation Not on file Last Filed Vital Signs Vital Sign Reading Time Taken Comments Blood Pressure 120/80 09/17/2023 9:43 AM TECHNICAL SPECIALIST CYTOGENETICS Pulse 88 09/17/2023 9:43 AM TECHNICAL SPECIALIST CYTOGENETICS Temperature - - Respiratory Rate - - Oxygen Saturation 98% 09/17/2023 9:43 AM TECHNICAL SPECIALIST CYTOGENETICS Inhaled Oxygen Concentration - - Weight 97.5 kg (214 lb 14.4 oz) 09/17/2023 9:43 AM TECHNICAL SPECIALIST CYTOGENETICS Height 167.6 cm (5' 6 ) 09/17/2023 9:43 AM TECHNICAL SPECIALIST CYTOGENETICS Body Mass Index 34.69 09/17/2023 9:43 AM TECHNICAL SPECIALIST CYTOGENETICS Plan of Treatment Not on file Insurance MEDICARE MEDICARE [facility] Care Teams S[employer] Relationship Specialty Start Date End Date Daisha Staley MD [address] [place] [address] [address] [address] PCP - General Internal Medicine 02/06/23
--- OUTSIDE RECORDS SUMMARY | 2024-09-24 13:30 | XMS_ITS | Encounter Summary ---
Author Organization [facility] Address [address] [place] [address] Care Team Providers Care Accordion Maker Name Role Phone Meng King MD Primary Care Provider [phone] Encounter Details Date Type Department Care Team (Late st Contact Info) Description 10/24/2004 Outpatient Historical [facility] Landon Yadav MD [facility] [place] [address] Er, Authorized P NO ADDRESS ON FILE LOWER LEG INJURY NOS (Primary Dx) Social History Tobacco Use Types Packs/Day Years Used Date Smoking Tobacco: Never Assessed Comments Unknown Sex and Gender Information Value Date Recorded Sex Assigned at Not on file Legal Sex Female 4:09 AM DRESSMAKING TEACHER Gender Identity Not on file Sexual Orientation Not on file documented as of this encounter Plan of Treatment Upcoming Encounters Date Type Department Care Team (Late st Contact Info) Description 10/14/2024 11:00 AM DRESSMAKING TEACHER Office Visit [facility] Oncology and Hematology - [place] [facility] [address] [place] [address] Ubaldo Cardenas MD [address] [facility] [address] [place] [address] documented as of this encounter Visit Diagnoses Diagnosis Injury, other and unspecified, knee, leg, ankle, and foot- Primary documented in this encounter Additional Health Concerns Infection Onset Date Last Indicated Resolved Time COVID-19 08/24/2020 08/24/2020 09/23/2020 1:16 AM DRESSMAKING TEACHER documented as of this encounter Care Teams Accordion Maker Relationship Specialty Start Date End Date Meng King MD [address] [place] [address] PCP - General Family Practice 11/15/23 documented as of this encounter
--- OUTSIDE RECORDS SUMMARY | 2024-09-24 13:30 | XMS_ITS | Clinical Summary ---
Author Organization [facility] Address [address] [place] [address] Phone Care Team Providers Care Shop Firer/Fireman Name Role Phone Ira Metz AUSTIN MANN Primary Care Provider + Social History Tobacco Use Types Packs/Day Years Used Date Smoking Tobacco: Never Assessed Comments Unknown Sex and Gender Information Value Date Recorded Sex Assigned at Not on file Legal Sex Female 1:41 PM SLITTER CREASER SLOTTER OPERATOR Gender Identity Not on file Sexual Orientation Not on file Plan of Treatment Upcoming Encounters Date Type Department Care Team (Late st Contact Info) Description 11/05/2024 1:20 PM CDT Initial Consult [facility] Oncology Services [address] [place] [address] Raffy Mcdaniel MD [address] [place] [address] Discharge Disposition: Discharged to home or Selfcare Insurance MEDICARE Care Teams Shop Firer/Fireman Relationship Specialty Start Date End Date Ira Metz APRN, AERONAUTICAL TEST ENGINEER [address] [address] PCP - General Advanced Practice Nurse 08/14/24
--- OUTSIDE RECORDS SUMMARY | 2024-09-24 13:30 | XMS_ITS | Referral Summary ---
Author Organization [facility] Address [address] [place] [address] Care Team Providers Care Air Duct Mechanic Name Role Phone Colindres, Dionicio Arnel Primary Care Provider [phone] Source Comments [facility],non-owned Affiliates and Associated Physician Practices is amultiple site organization consisting of ambulatory clinics and hospital sitesin [place], [place], [place] and [place]. This disclosure is being madepursuant to the Care Everywhere program and may not contain all information available regarding this patient. Last updated 18.[facility] Outside.in Allergies Active Allergy Reactions Criticality Noted Date [...] by mouth once daily Active Prenat w/o T-DX-Tiiyevu-FA-D ANAND (PNV-DHA PO) Take by mouth once [...] 69 03/27/2023 3:17 PM CDT Temperature 36.5 C (97.7 F) 03/27/2023 3:17 PM CDT Respiratory Rate 18 08/25/2022 7:43 AM DIRECTOR MARKETING ANALYTICS Oxygen Saturation 99% 03/27/2023 3:17 PM CDT [...] ve Non-react shanti 04/06/2023 8:08 AM CDT [facility] Comment:No Laboratory eviden ce of HIV infection. Blood BLOOD SPECIMEN / Unknown Lab Venipuncture / Unknown 04/06/2023 6:50 AM CDT 04/06/2023 7:01 AM CDT Carey Partida MD LAB - CHEMISTRY ELIZA Vanessa Organization Address City/State/[facility] Co de Phone Number [facility] [address] [place] [address], [facility] [phone] from Last 3 Months or Most Recently Relevant to Health Maintenance Additional Health Concerns Infection Onset Date Last Indicated MRSA 09/24/2020 09/24/2020 Insurance Payer Benefit Plan / Group Subscriber ID Effective Dates Phone Address Type MEDICARE MEDICARE PART A AND B [id number] Effective for all dates [address] [place] [address] Medicare SELF PAY NO INSURANCE SELF PAY NO INSURANCE Effective for all dates [place] Self Pay MEDICARE MEDICARE PART A AND B [id number] Effective for all dates [address] [place] [address] Medicare SELF PAY NO INSURANCE SELF PAY NO INSURANCE Effective for all dates [place] Self Pay MEDICARE MEDICARE PART A AND B [id number] Effective for all dates [address] [place] [address] Medicare SELF PAY NO INSURANCE SELF PAY NO INSURANCE Effective for all dates [place] Self Pay MEDICARE MEDICARE PART A AND B [id number] Effective for all dates [address] [place] [address] Medicare SELF PAY NO INSURANCE SELF PAY NO INSURANCE Effective for all dates [place] Self Pay MEDICARE MEDICARE PART A AND B [id number] Effective for all dates [address] [place] [address] Medicare SELF PAY NO INSURANCE SELF PAY NO INSURANCE Effective for all dates [place] Self Pay MEDICARE MEDICARE PART A AND B [id number] Effective for all dates [address] [place] [address] Medicare SELF PAY NO INSURANCE SELF PAY NO INSURANCE Effective for all dates [place] Self Pay MEDICARE [place]PS MEDICARE PART B [id number] 07/13/2015-Pre sent [address] [address] [place] [address] Medicare [place] [employer] [id number] 11/11/2022-Pres ent ATTN: MELISSA Gonzalez [address] [place] [address] Medicaid MEDICARE MEDICARE PART A AND B [id number] 07/13/2015-Pre sent [address] [place] [address] Medicare [place] BSC PLAN [id number] Effective for all dates [address] [place] [address] Medicaid [place] Advance Directives * Full Code (Latest Code Status on File) Date Activated Date Inactivated Comments 08/22/2010 10:42 AM 08/22/2010 11:57 PM * Full Code Date Activated Date Inactivated Comments 02/14/2010 1:50 PM 02/17/2010 5:57 AM * Full Code Date Activated Date Inactivated Comments 02/11/2010 8:28 PM 02/14/2010 1:50 PM Care Teams Air Duct Mechanic Relationship Specialty Start Date End Date Dionicio Colindres DO [address] [place] [address] PCP - General Family Medicine 01/03/18
--- OUTSIDE RECORDS SUMMARY | 2024-09-24 13:30 | XMS_ITS | Encounter Summary ---
Author Organization [facility] Address [address] [place] [address] Care Team Providers Care Ram Car Operator Name Role Phone Dionicio Colindres Primary Care Provider Encounter Details Date Type Department Care Team (Late st Contact Info) Description 11/15/2022 Lab Requisition [facility] [address] [facility] [place] [address] [place] [address] [place] [address] Social History Tobacco Use Types Packs/Day [...] 12:00 AM CDT) Case Report Dermatopathology Report Case: [id number] Authorizing Provider: Matthieu Helms MD Collected: 11/14/2022 12:00 AM Ordering Location: [facility] Received: 11/15/2022 09:24 AM Pathologist: Reinaldo Astudillo MD Specimen: Skin, right infaorbital cheek 12:37 PM CDT DERMATOPATHOLOGY LABORATORY Final Diagnosis Specimen A. SKIN, right infaorbital cheek: LARGE CELL ACANTHOMA (D23.9) (see microscopic description) 12:37 PM CDT DERMATOPATHOLOGY LABORATORY Clinical History Neoplasm of uncertain behavior of skin, compound nevus of skin, atypical nevus of skin, melanoma of skin 12:37 PM CDT DERMATOPATHOLOGY LABORATORY Gross Description Specimen A: Received is one formalin filled container labeled with the patient's name and designated right infaorbital cheek. The specimen consists of a shave biopsy measuring 4x2x1 mm. Jar 0. 12:37 PM CDT DERMATOPATHOLOGY LABORATORY Microscopic Description Specimen A. SKIN, right infaorbital cheek: Sections show compact orthokeratosis with acanthosis composed of slightly larger keratinocytes with basal layer hyperpigmentation. Additional deeper sections were obtained and reviewed. 12:37 PM CDT DERMATOPATHOLOGY LABORATORY Disclaimer An external and internal positive and negative controls are appropriate for the histochemical, immunohistochemical and immunofluorescence stain(s) in this case (if any), except where stated explicitly. The performance characteristics of the stain(s) cited in this report were developed and its performance characteristic determined by the Dermatopathology Laboratory at [facility], directed by Dr. M. Donita Astudillo. These tests need not be, and therefore are not, approved by the [place] Food and Drug Administration. The tests are used for clinical purposes. Billing Codes Specimen Charges Stain Charges 48919 1 3 12:37 PM CDT DERMATOPATHOLOGY LABORATORY Embedded Images 3 12:37 PM CDT DERMATOPATHOLOGY LABORATORY Pathology/Cytolog y TISSUE SPECIMEN FROM SKIN / Unknown 11/14/2022 11/15/2022 9:24 AM CDT Matthieu Helms MD LAB - PATHOLOGY/CY TOLOGY ORDERABLES DERMATOPATHOLOGY LABORATORY [facility] - Department of Dermatology [facility] [address] [place] [address], [address] [phone] documented in this encounter Visit Diagnoses Not on filedocumented in this encounter Additional Health Concerns Infection Onset Date Last Indicated Resolved Time MRSA 09/24/2020 09/24/2020 documented as of this encounter Care Teams Ram Car Operator Relationship Specialty Start Date End Date Dionicio Colindres DO [address] [place] [address] PCP - General Family Medicine 01/03/18 documented as of this encounter
--- OUTSIDE RECORDS SUMMARY | 2024-09-24 13:30 | XMS_ITS | Encounter Summary ---
Author Organization [facility] Address [address] [place] [address] Care Team Providers Care Shoe Folder Name Role Phone eMng King MD Primary Care Provider Encounter Details Date Type Department Care Team (Latest Contact Info) Description 09/19/2008 Outpatient Historical [facility] Teja Nina MD NO ADDRESS ON FILE Viral Infection; Tobacco Use Disorder; Encounter for Long-Term (Current) Use of Other Medications; Pure Hypercholesterolemia Social History Tobacco Use Types Packs/Day Years Used Date Smoking Tobacco: Never Assessed Comments Unknown Sex and Gender Information Value Date Recorded Sex Assigned at Not on file Legal Sex Female 4:09 AM FELT WASHING MACHINE TENDER Gender Identity Not on file Sexual Orientation Not on file documented as of this encounter Plan of Treatment Upcoming Encounters Date Type Department Care Team (Late st Contact Info) Description 10/14/2024 11:00 AM FELT WASHING MACHINE TENDER Office Visit [facility] Oncology and Hematology - Alirio [address] [facility] [address] [place] [address] Ubaldo Cardenas MD [address] [facility] [address] [place] [address] documented as of this encounter Procedures Procedure Name Priority Date/Time Associated Diagnosis Comments BETA STREP ONLY CULTURE Routine 09/19/2008 2:51 PM FELT WASHING MACHINE TENDER documented in this encounter Results * BETA STREP ONLY CULTURE (09/19/2008 2:51 PM FELT WASHING MACHINE TENDER) PRELIMINARY REPORT Pending [facility] FINAL REPORT No Group A, C, or G beta Streptococcus isolated. [facility] Specimen from throat (specimen) 09/19/2008 2:51 PM FELT WASHING MACHINE TENDER 09/19/2008 7:48 PM FELT WASHING MACHINE TENDER us Teja Nina MD MICROBIOLOGY - GENERAL ORDER LAZ Final Result INTERFACE SYSTEM Refer to clinic/hospital department [facility] CLIA# [id number] [address] [place] [address] documented in this encounter Visit Diagnoses Diagnosis Unspecified viral infection, in conditions classified elsewhere and of unspecified site Tobacco use disorder Encounter for long-term (current) use of other medications Pure hypercholesterolemia documented in this encounter Additional Health Concerns Infection Onset Date Last Indicated Resolved Time COVID-19 08/24/2020 08/24/2020 09/23/2020 1:16 AM FELT WASHING MACHINE TENDER documented as of this encounter Care Teams Shoe Folder Relationship Specialty Start Date End Date Meng King MD [address] [place] [address] PCP - General Family Practice 11/15/23 documented as of this encounter
--- OUTSIDE RECORDS SUMMARY | 2024-09-24 13:30 | XMS_ITS | Patient Health Summary ---
Author Organization [facility] Address [address] [place] [address] Care Team Providers Care Pinion Staker Name Role Phone Colindres, Dionicio Arnel Primary Care Provider [phone] Note from [facility],non-owned Affiliates and Associated Physician Practices is amultiple site organization consisting of ambulatory clinics and hospital sitesin [place], [place], [place] and [place]. This disclosure is being madepursuant to the Care Everywhere program and may not contain all information available regarding this patient. Last updated 18.[facility] Allergies * Adhesive Sensitivity(Can tolerate paper tape) [...] by mouth once daily * Prenat w/o A-SU-Ghqotkb-FA-DHA (PNV-DHA PO) Take by mouth once daily * xmlxngybfd-rdsrtlcyklgii-fmxerhmz (FIORICET) 50-325-40 MG tablet(Started 10/17/2017) TAKE 1 [...] CDT Respiratory Rate 18 08/25/2022 7:43 AM ISOTOPE HYDROLOGIST Oxygen Saturation 99% 03/27/2023 3:17 PM CDT [...] PET/CT fellow > Dictated by Hamilton Gan (Cager Operator) 04/06/2023 8:12 AM I, Vadim Benitez MD have personally reviewed and interpreted this examination/study. > Interpreting Provider: Vadim Benitez MD on 04/06/2023 4:16 PM Narrative 04/06/2023 4:16 PM CDT PROCEDURE: PET CT SKULL TO MID THIGH [...] PET/CT fellow > Dictated by Hamilton Gan (Cager Operator) 04/06/2023 8:12 AM I, Vadim Benitez MD have personally reviewed and interpreted this examination/study. > Interpreting Provider: Vadim Benitez MD on 04/06/2023 4:16 PM Carey Partida MD NM ORDERABLES * HIV-1 HIV-2 ANTIBODY + HIV P24 AG PANEL (04/06/2023 6:50 AM CDT) Pathologist [facility] HIV Antigen/Antibod y 1 & 2 Non-reacti ve Non-react shanti 04/06/2023 8:08 AM CDT [facility] Comment:No Laboratory eviden ce of HIV infection. Blood BLOOD SPECIMEN / Unknown Lab Venipuncture / Unknown 04/06/2023 6:50 AM CDT 04/06/2023 7:01 AM CDT Carey Partida MD LAB - CHEMISTRY ELIZA LINTON [address] [address], [facility] [phone] * URIC ACID BLOOD (04/06/2023 6:50 AM CDT) Pathologist [facility] Uric Acid 5.1 2.6 - 6.0 mg/dL 04/06/2023 7:35 AM CDT [facility] Blood BLOOD SPECIMEN / Unknown Lab Venipuncture / Unknown 04/06/2023 6:50 AM CDT 04/06/2023 7:09 AM CDT Carey Partida MD LAB - CHEMISTRY ELIZA LINTON [address] [address], [place] [phone] * (ABNORMAL) CBC WITH DIFFERENTIAL (04/06/2023 6:50 AM CDT) Only the most recent of26 resultswithin the time period is included. WBC 5.5 3.5 - 10.5 10 3/uL 04/06/2023 7:[address] [facility] RBC 5.05 3.80 - 5.20 10 6/uL 04/06/2023 7:[address] [facility] Hemoglobin 13.2 12.0 - 15.6 g/dL 04/06/2023 7:[address] [facility] Hematocrit 40.4 35.0 - 45.0 % 04/06/2023 7:[address] [facility] MCV 80.0(L) 80.7 - 98.3 fL 04/06/2023 7:[address] [facility] MCH 26.1(L) 26.7 - 34.0 pg 04/06/2023 7:[address] [facility] MCHC 32.7 30.8 - 35.9 g/dL 04/06/2023 7:[address] [facility] RDW-SD 38.5 36.0 - 50.0 fL 04/06/2023 7:[address] [facility] RDW-CV 13.4 11.2 - 14.8 % 04/06/2023 7:[address] [facility] Platelet Count 263 150 - 400 10 3/uL 04/06/2023 7:[address] [facility] MPV 9.0(L) 9.4 - 12.9 fL 04/06/2023 7:[address] [facility] nRBC Absolute 0.00 0 10 3/uL 04/06/2023 7:[address] [facility] nRBC Auto 0.0 0 /100 WBC 04/06/2023 7:[address] [facility] Neutrophils % 52.7 35.0 - 70.0 % 04/06/2023 7:[address] [facility] Lymphocytes % 38.1 20.0 - 43.0 % 04/06/2023 7:[address] [facility] Monocytes % 7.1 5.0 - 13.0 % 04/06/2023 7:[address] [facility] Eosinophils % 1.5 0.0 - 6.0 % 04/06/2023 7:18 AM T [facility] Basophil % 0.4 0.0 - 2.0 % 04/06/2023 7:[address] [facility] Neutrophils Absolute 2.89 1.60 - 7.00 10 3/uL 04/06/2023 7:[address] [facility] Lymphocyte Absolute 2.09 1.10 - 3.90 10 3/uL 04/06/2023 7:[address] [facility] Monocytes Absolute 0.39 0.26 - 1.07 10 3/uL 04/06/2023 7:[address] [facility] Eosinophils Absolute 0.08 0.00 - 0.47 10 3/uL 04/06/2023 7:[address] [facility] Basophils Absolute 0.02 0.00 - 0.08 10 3/uL 04/06/2023 7:[address] [facility] Immature Granulocytes % 0.2 0.0 - 1.0 % 04/06/2023 7:[address] [facility] Immature Granulocytes Absolute 0.01 04/06/2023 7:[address] [facility] Blood BLOOD SPECIMEN / Unknown Lab Venipuncture / Unknown 04/06/2023 6:50 AM CDT 04/06/2023 7:09 AM CDT Carey Partida MD LAB - HEMATOLOGY ORD ERABLES [facility] [address] [place] [address], [facility] [phone] * (ABNORMAL) COMPREHENSIVE METABOLIC PANEL (04/06/2023 6:50 AM CDT) Only the most recent of9 resultswithin the time period is included. BUN 13 7 - 26 mg/dL 04/06/2023 7:[address] [facility] Creatinine 0.73 0.56 - 0.96 mg/dL 04/06/2023 7:[address] [facility] Sodium 135(L) 136 - 145 mmol/L 04/06/2023 7:[address] [facility] Potassium 3.5 3.5 - 4.5 mmol/L 04/06/2023 7:[address] [facility] Chloride 105 98 - 107 mmol/L 04/06/2023 7:[address] [facility] CO2 25 22 - 29 mmol/L 04/06/2023 7:[address] [facility] Glucose 90 70 - 115 mg/dL 04/06/2023 7:[address] [facility] Calcium 8.7 8.4 - 10.2 mg/dL 04/06/2023 7:[address] [facility] Protein Total 6.5 6.0 - 8.3 g/dL 04/06/2023 7:[address] [facility] Albumin 3.9 3.4 - 5.0 g/dL 04/06/2023 7:[address] [facility] Bilirubin Total 0.4 0.2 - 1.2 mg/dL 04/06/2023 7:[address] [facility] Alkaline Phosphatase 80 40 - 150 U/L 04/06/2023 7:[address] [facility] ALT 37 5 - 55 U/L 04/06/2023 7:[address] [facility] AST 37(H) 5 - 34 U/L 04/06/2023 7:[address] [facility] Anion Gap 9 8 - 18 04/06/2023 7:[address] [facility] BUN/Creatinine Ratio 18 7 - 23 04/06/2023 7:[address] [facility] Osmolality Calculated 280 270 - 300 mOsm/kg 04/06/2023 7:[address] [facility] Albumin/Globulin Ratio 1.5 1.1 - 2.3 04/06/2023 7:[address] [facility] eGFR by CKD-EPI >90 >=90 mL/min/1.7 3 m2 04/06/2023 7:[address] [facility] Blood BLOOD SPECIMEN / Unknown Lab Venipuncture / Unknown 04/06/2023 6:50 AM CDT 04/06/2023 7:09 AM T Carey Partida MD LAB - CHEMISTRY ELIZA LINTON Performing Organization Address City/[facility] [place]/ZIP Co de Phone Number [facility] [address] [place] [address], [place] [phone] * LDH BLOOD (04/06/2023 6:50 AM CDT) Pathologist [facility] LDH Total 137 125 - 243 Units/L 04/06/2023 7:35 AM CDT [facility] Blood BLOOD SPECIMEN / Unknown Lab Venipuncture / Unknown 04/06/2023 6:50 AM CDT 04/06/2023 7:09 AM CDT Carey Partida MD LAB - CHEMISTRY ELIZA LINTON Performing Organization Address [facility] [place]/ZIP Co de Phone Number [facility] [address] [place] [address], [place] [phone] * GLUCOSE SCREEN - POCT (IP) [facility] (04/06/2023 6:40 AM CDT) Pathologist [facility] Glucose WB/POC 97 70 - 115 mg/dL [facility] POCT TESTING Blood BLOOD SPECIMEN / Unknown 04/06/2023 6:40 AM CDT Carey Partida MD LAB - POINT OF CARE ORDERABLES Performing Organization Address [facility] [place]/ZIP Co de Phone Number [facility] POCT TESTING [address] [place] [address], [place] [phone] * US HEAD NECK TISSUES B - SCAN REAL TIME (11/23/2022 10:00 AM CDT) Anatomical Region Laterality Modality Head Ultrasound 11/23/2022 11:0 1 AM CDT Narrative 11/23/2022 11:03 AM CDT PROCEDURE: US SOFT TISSUE HEAD NECK DATE/TIME [...] AM CDT) Case Report Dermatopathology Report Case: [id number] Authorizing Provider: Matthieu Helms MD Collected: 11/14/2022 12:00 AM Ordering Location: [facility] DermPath Lab Received: 11/15/2022 09:24 AM Pathologist: Reinaldo Astudillo MD Specimen: Skin, right infaorbital cheek 12:37 PM T DERMATOPATHOLOGY LABORATORY Final Diagnosis Specimen A. SKIN, right infaorbital cheek: LARGE CELL ACANTHOMA (D23.9) (see microscopic description) 3 12:37 PM T DERMATOPATHOLOGY LABORATORY Clinical History Neoplasm of uncertain behavior of skin, compound nevus of skin, atypical nevus of skin, melanoma of skin 3 12:37 PM T DERMATOPATHOLOGY LABORATORY Gross Description Specimen A: Received is one formalin filled container labeled with the patient's name and designated right infaorbital cheek. The specimen consists of a shave biopsy measuring 4x2x1 mm. Jar 0. 3 12:37 PM [facility] DERMATOPATHOLOGY [facility]ORATORY Microscopic Description Specimen A. SKIN, right infaorbital cheek: Sections show compact orthokeratosis with acanthosis composed of slightly larger keratinocytes with basal layer hyperpigmentation. Additional deeper sections were obtained and reviewed. 3 12:37 PM T DERMATOPATHOLOGY LABORATORY Disclaimer An external and internal positive and negative controls are appropriate for the histochemical, immunohistochemical and immunofluorescence stain(s) in this case (if any), except where stated explicitly. The performance characteristics of the stain(s) cited in this report were developed and its performance characteristic determined by the Dermatopathology Laboratory at [facility], directed by Dr. Karley Astudillo. These tests need not be, and therefore are not, approved by the [place] Food and Drug Administration. The tests are used for clinical purposes. Billing Codes Specimen Charges Stain Charges 33736 1 3 12:37 PM CDT DERMATOPATHOLOGY LABORATORY Embedded Images 3 12:37 PM CDT DERMATOPATHOLOGY LABORATORY Pathology/Cytolog y TISSUE SPECIMEN FROM SKIN / Unknown 11/14/2022 11/15/2022 9:24 AM CDT Matthieu Helms MD LAB - PATHOLOGY/CY TOLOGY ORDERABLES DERMATOPATHOLOGY LABORATORY [facility] - Department of Dermatology [address] [phone] * MRI LUMBAR SPINE WO CONTRAST (10/09/2022 7:56 AM ISOTOPE HYDROLOGIST) Anatomical Region Laterality Modality Spine Magnetic Resonan ce 10/09/2022 9:15 AM ISOTOPE HYDROLOGIST Impressions 10/09/2022 9:20 AM ISOTOPE HYDROLOGIST IMPRESSION: 1. Left central to subarticular disc extrusion with cranial migration L4-5. This abuts the exiting left L4 nerve root. 2. No right-sided disc herniation or nerve root impingement is identified. 3. Mild spinal canal stenosis at L4-5. Foraminal narrowing on the right L4-5 and bilaterally at L5-S1. > Interpreting Provider: Kodak Ovalle DO on 10/09/2022 9:20 AM Narrative 10/09/2022 9:20 AM ISOTOPE HYDROLOGIST EXAM: MRI Lumbar Spine without contrast INDICATION: [...] Paravertebral soft tissues are grossly unremarkable. Tiny [id number] cortical lesion left kidney probably represents a [...] A/B RSV PCR RAPID (08/25/2022 7:46 AM ISOTOPE HYDROLOGIST) COVID-19 PCR Not detected Not detected 08/25/19 8:26 AM ISOTOPE HYDROLOGIST [facility] Influenza A PCR Not detected Not detected 08/25/2022 8:26 AM [facility] Influenza B PCR Not detected Not detected 08/25/2022 8:26 AM [facility] RSV PCR Not detected Not detected 08/25/2022 8:26 AM [facility] Microbiology SPECIMEN FROM NASOPHARYNGEAL STRUCTURE / Unknown Collection / Unknown 08/25/2022 7:46 AM ISOTOPE HYDROLOGIST 08/25/2022 7:48 AM ISOTOPE HYDROLOGIST Narrative [facility] - 08/25/2022 8:26 AM ISOTOPE HYDROLOGIST This nucleic acid amplification assay has been authorized by the Food and Drug administration (FDA) under an Emergency Use Authorization (EUA). This test is only authorized for the [...] - MICROBIOLOGY O RDERABLES Performing Organization Address City/State/[facility] Co de Phone Number [facility] [address] [place], [place] [phone] * CT ABDOMEN AND PELVIS WITH IV [...] SOFT TISSUE W CONT (10/21/2020 11:36 AM ISOTOPE HYDROLOGIST) Anatomical Region Laterality Modality Head Computed Tomogra phy 10/21/2020 11:5 2 AM ISOTOPE HYDROLOGIST Impressions 10/21/2020 11:58 AM ISOTOPE HYDROLOGIST 1. No mass, adenopathy or other significant findings. 2. Chronic 1 cm lymph node slightly deep to the marker. *Reading Radiologist: Niurka Ewing on 10/21/2020 at 11:58 AM Narrative 10/21/2020 11:[address] neck with contrast DATE: 10/21/2020. INDICATION: [...] clear. Incidentally noted is an azygos lobe. Procedure Note [...] POINT OF CARE (IP) (10/21/2020 11:24 AM ISOTOPE HYDROLOGIST) Only the most recent of2 resultswithin the time period is included. Creatinine POCT 1.03 0.7 - 1.2 mg/dL [facility] POCT TESTING QC Verified Yes Yes [facility] POC T TESTING Blood BLOOD SPECIMEN / Unknown 10/21/2020 11:24 AM ISOTOPE HYDROLOGIST Serene Garcia MD LAB - POINT OF CA RE ORDERABLES [facility] POCT TESTING [address] [place] [address] * (ABNORMAL) CULTURE RESPIRATORY+GRAM STAIN (STL) (09/24/2020 3:25 PM ISOTOPE HYDROLOGIST) Culture Heavy Staphylococcus aureus methicillin-resista nt (MRSA)(A) BRYANT 09/27/2020 9:47 AM ISOTOPE HYDROLOGIST [facility] Comment:Staphylococcus aureu s methicillin-resistant (MRSA) detected by penicillin binding protein immunoassay. Contact precautions required. Conventional antibiotic susceptibility testing to follow. Culture Moderate Streptococcus agalactiae (Group B)(A) BRYANT 09/27/2020 9:47 AM ISOTOPE HYDROLOGIST [facility] Culture Moderate Streptococcus parasanguinis(A) 09/27/2020 9:47 AM ISOTOPE HYDROLOGIST [facility] Gram Stain Rare Polymorphonuclear cells 09/27/2020 9:47 AM ISOTOPE HYDROLOGIST [facility] Gram Stain Rare Gram-positive cocci 09/27/2020 9:47 AM [facility] Gram Stain Light Gram-negative bacilli 09/27/2020 9:47 AM [facility] Microbiology SINUS / Unknown Collection / Unknown 09/24/2020 3:25 PM ISOTOPE HYDROLOGIST 09/24/2020 8:56 PM ISOTOPE HYDROLOGIST Narrative [facility] - 09/27/2020 9:47 AM ISOTOPE HYDROLOGIST Methicillin-resistant Staphylococci (MRSA) are resistant to all [...] Garcia MD LAB - MICROBIOLOG Y ORDERABLES [facility]CRO[facility] [address] [place] [address], [facility] [phone] * CARDIAC EKG ORDER (09/24/2020 1:08 AM ISOTOPE HYDROLOGIST) Only the most recent of2 resultswithin the time period is included. Narrative 09/24/2020 1:08 AM ISOTOPE HYDROLOGIST Ordered by an unspecified provider. Scanned Document CARDIAC SERVICES ORD ERABLES * PATHOLOGY PERIPHERAL SMEAR REVIEW (09/22/2020 12:40 PM ISOTOPE HYDROLOGIST) Case Report Pathology Interpretation Report Case: [id number] Authorizing Provider: Caden Carlos MD Collected: 09/22/2020 12:40 PM Ordering Location: [facility] Received: 09/22/2020 02:15 PM Emergency Department Pathologist: Toan Tellez MD Specimen: Blood 09/23/2020 10:40 AM ISOTOPE HYDROLOGIST [facility] Final Diagnosis Peripheral blood: Anemia, hypochromic [...] Unknown Venipuncture / Unknown 09/22/2020 12:40 PM ISOTOPE HYDROLOGIST 09/22/2020 2:15 PM ISOTOPE HYDROLOGIST Caden Carlos MD LAB - PATHOLOGY/CYTO LOGY ORDERABLES [facility] [address] [place] [address] * (ABNORMAL) DIFFERENTIAL MANUAL (09/22/2020 12:40 PM ISOTOPE HYDROLOGIST) WBC Auto 8.4 x10E9/L 09/23/2020 1:28 PM [facility] WBC Corrected 09/23/2020 1:28 PM [facility] nRBC 09/23/2020 1:28 PM [facility] [...] Manual 23(H) <=0 % 09/23/2020 1:28 PM [facility] [place] Manual 1(H) <=0 % 09/23/2020 1:28 PM [...] Unknown Venipuncture / Unknown 09/22/2020 12:40 PM ISOTOPE HYDROLOGIST 09/22/2020 12:48 PM ISOTOPE HYDROLOGIST Caden Carlos MD LAB - HEMATOLOGY ORD ERABLES [facility] [address] [place] [address] * TSH REFLEX FREE T4 (09/22/2020 12:18 PM ISOTOPE HYDROLOGIST) TSH 1.310 0.350 - 4.940 uIU/mL 09/22/2020 1:06 PM ISOTOPE HYDROLOGIST [facility] Blood BLOOD SPECIMEN / Unknown Venipuncture / Unknown 09/22/2020 12:18 PM ISOTOPE HYDROLOGIST 09/22/2020 12:28 PM ISOTOPE HYDROLOGIST Caden Carlos MD LAB - CHEMISTRY ORDBrett LINTON Performing Organization Address City/[facility] [place]/ZIP Co de Phone Number [facility] [address] [place] [phone] * TROPONIN I (09/22/2020 12:18 PM ISOTOPE HYDROLOGIST) Only the most recent of2 resultswithin the time period is included. Troponin I <0.010 <0.038 ng/mL 09/22/2020 12:51 PM ISOTOPE HYDROLOGIST [facility] Blood BLOOD SPECIMEN / Unknown Venipuncture / Unknown 09/22/2020 12:18 PM ISOTOPE HYDROLOGIST 09/22/2020 12:28 PM ISOTOPE HYDROLOGIST Caden Carlos MD LAB - CHEMISTRY ELIZA LINTON Performing Organization Address [facility] [place]/[facility] Co de Phone Number [facility] [address] [place] [phone] * HCG BETA BLOOD QUANTITATIVE (09/22/2020 12:18 PM ISOTOPE HYDROLOGIST) Only the most recent of6 resultswithin the time period is included. hCG Quantitative <1.20 mIU/mL 09/22/19 1:06 PM ISOTOPE HYDROLOGIST [facility] Blood BLOOD SPECIMEN / Unknown Venipuncture / Unknown 09/22/2020 12:18 PM ISOTOPE HYDROLOGIST 09/22/2020 12:28 PM ISOTOPE HYDROLOGIST Narrative [facility] - 09/22/2020 1:06 PM ISOTOPE HYDROLOGIST hCG Reference Range, mIU/mL: Males 0-2.0 Non Females 0-6.0 Perimenopausal Females ages 41-55* 0-7.7 Postmenopausal Females age >55* 0-14 Females, Weeks after Last Menstrual Period 0.2-1 week 5-50 1 - 2 weeks 50-500 2 - 3 weeks 100-5000 3 - 4 weeks 500-10,000 4 - 5 weeks 1000-50,000 5 - 6 weeks 10,000-100,000 6 - 8 weeks 15,000-200,000 2 - 3 months 10,000-100,000 Trophoblastic Disease >100,000 *In higher than expected hCG in females > age 40, a serum FSH >20 IU/L makes unlikely. Caden Carlos MD LAB - CHEMISTRY ELIZA LINTON Performing Organization Address [facility] [place]/[facility] Co de Phone Number [facility] [address] [place] [address] * EKG 12-LEAD (09/22/2020 11:44 AM ISOTOPE HYDROLOGIST) Ventricular Rate 98 BPM [facility] MUSE Atrial Rate 98 BPM [facility] P-R Interval 104 ms [facility] QRS Duration ms 68 ms [facility] Q-T Interval ms 346 ms [facility] QTC Calculation (Bezet) 441 ms [facility] M[facility] Calculated P [place] 59 degrees [facility] M[facility] Calculated R [place] 40 degrees [facility] M[facility] Calculated T [place] 46 degrees [facility] M[facility] Interpretation EKG SINUS RHYTHM WITH SHORT SD OTHERWISE NORMAL ECG NO PREVIOUS ECGS AVAILABLE Confirmed by Juan Carlos Fish ([id number]) on 09/23/2020 7:10:23 AM [facility] MUSE 09/22/2020 11:4 4 AM ISOTOPE HYDROLOGIST 09/23/2020 7:10 AM ISOTOPE HYDROLOGIST Caden Carlos MD ECG ORDERABLES Performing Organization Address [facility] [place]/[facility] Co de Phone Number [facility] * (ABNORMAL) URINE MICROSCOPIC ONLY REFLEX TO CULTURE (08/24/2020 8:35 PM ISOTOPE HYDROLOGIST) Only the most recent of3 resultswithin the time period is included. Reflex Status Culture not indicated 08/24/2020 8:43 PM ISOTOPE HYDROLOGIST [facility] RBC UA 0-2 None Seen, 0-2, 3-5 # /hpf 08/24/2020 8:43 PM ISOTOPE HYDROLOGIST [facility] WBC UA 0-5 None Seen, 0-5 # /hpf 08/24/2020 8:43 PM ISOTOPE HYDROLOGIST [facility] Bacteria UA Trace(A) None Seen 08/24/2020 8:43 PM ISOTOPE HYDROLOGIST [facility] Squamous Epithelial Cells 11-20(A) None Seen, 0-2, 3-5 /hpf 08/24/2020 8:43 PM ISOTOPE HYDROLOGIST [facility] Mucus UA 1+ /LPF 08/24/2020 8:43 PM ISOTOPE HYDROLOGIST [facility] Urine URINE SPECIMEN OBTAINED BY CLEAN CATCH PROCEDURE / Unknown Collection / Unknown 08/24/2020 8:35 PM ISOTOPE HYDROLOGIST 08/24/2020 8:37 PM ISOTOPE HYDROLOGIST Narrative [facility] - 08/24/2020 8:43 PM ISOTOPE HYDROLOGIST Rob Hernandez PA-C LAB - URINALYSIS OR DERABLES [facility] [address] [place] [address] * (ABNORMAL) URINALYSIS REFLEX MICROSCOPIC REFLEX CULTURE (08/24/2020 8:35 PM ISOTOPE HYDROLOGIST) Only the most recent of7 resultswithin the time period is included. Color UA Yellow Straw, Yellow 08/24/2020 8:41 PM ISOTOPE HYDROLOGIST [facility] Clarity UA Cloudy(A) Clear 08/24/2020 8:41 PM ISOTOPE HYDROLOGIST [facility] Glucose UA Negative Negative 08/24/2020 8:41 PM ISOTOPE HYDROLOGIST [facility] Bilirubin UA Negative Negative 08/24/2020 8:41 PM ISOTOPE HYDROLOGIST [facility] Ketone UA Negative Negative 08/24/2020 8:41 PM ISOTOPE HYDROLOGIST [facility] Specific [place] UA 1.009 1.005 - 1.030 08/24/2020 8:41 PM ISOTOPE HYDROLOGIST [facility] Blood UA 2+(A) Negative 08/24/2020 8:41 PM ISOTOPE HYDROLOGIST [facility] pH UA 6.0 5.0 - 8.0 pH 08/24/2020 8:41 PM ISOTOPE HYDROLOGIST [facility] Protein UA Negative Negative 08/24/2020 8:41 PM ISOTOPE HYDROLOGIST [facility] Urobilinogen UA Negative Negative mg/dL 08/24/2020 8:41 PM ISOTOPE HYDROLOGIST [facility] Nitrite UA Negative Negative 08/24/2020 8:41 PM ISOTOPE HYDROLOGIST [facility] Leukocyte UA Negative Negative 08/24/2020 8:41 PM ISOTOPE HYDROLOGIST [facility] Urine Microscopy Urine microscopy to follow 08/24/2020 8:41 PM ISOTOPE HYDROLOGIST [facility] Reflex Status Culture not indicated 08/24/2020 8:41 PM ISOTOPE HYDROLOGIST [facility] Urine URINE SPECIMEN OBTAINED BY CLEAN CATCH PROCEDURE / Unknown Collection / Unknown 08/24/2020 8:35 PM ISOTOPE HYDROLOGIST 08/24/2020 8:37 PM ISOTOPE HYDROLOGIST Narrative [facility] - 08/24/2020 8:41 PM ISOTOPE HYDROLOGIST Rob Hernandez PA-C LAB - URINALYSIS OR DERABLES Performing Organization Address [facility] [place]/[facility] Co de Phone Number [facility] [address] [place] [address] * (ABNORMAL) LIPASE BLOOD (08/24/2020 8:20 PM ISOTOPE HYDROLOGIST) Only the most recent of3 resultswithin the time period is included. Lipase 100(H) 8 - 78 U/L 08/24/2020 8:39 PM ISOTOPE HYDROLOGIST [facility] Blood BLOOD SPECIMEN / Unknown Venipuncture / Unknown 08/24/2020 8:20 PM ISOTOPE HYDROLOGIST 08/24/2020 8:23 PM ISOTOPE HYDROLOGIST Rob Hernandez PA-C LAB - CHEMISTRY ORD ERABLES Performing Organization Address [facility] de Phone Number [facility] [address] [place] [phone] * CT ANGIO HEAD NECK STROKE (08/09/2019 9:30 AM ISOTOPE HYDROLOGIST) Anatomical Region Laterality Modality Head Computed Tomogra phy 08/09/2019 9:33 AM ISOTOPE HYDROLOGIST Impressions 08/09/2019 9:45 AM ISOTOPE HYDROLOGIST 1. Widely patent carotid and vertebral arteries. [...] at 9:45 AM Narrative 08/09/2019 9:[address] angiogram head and neck with contrast [...] CT ORDERABLES * PT-INR (08/09/2019 9:24 AM ISOTOPE HYDROLOGIST) Only the most recent of2 resultswithin the time period is included. PT 13.0 12.1 - 14.8 sec 08/09/2019 9:36 AM [facility] INR 1.0 0.9 - 1.1 08/09/2019 9:36 AM [facility] Blood BLOOD SPECIMEN / Unknown Venipuncture / Unknown 08/09/2019 9:24 AM ISOTOPE HYDROLOGIST 08/09/2019 9:23 AM ISOTOPE HYDROLOGIST Narrative [facility] - 08/09/2019 9:36 AM ISOTOPE HYDROLOGIST Conventional Warfarin Anticoagulant Therapy: INR Reference Range: 2.0-3.0 Intensive Warfarin Anticoagulant Therapy: INR Reference Range: 2.5-3.5 Sirena Hickman MD LAB - COAGULATION OR DERABLES Performing Organization Address City/State/[facility] Co de Phone Number [facility] [address] [place] [address] * GLUCOSE - POINT OF CARE (08/09/2019 9:23 AM ISOTOPE HYDROLOGIST) Glucose WB/POC 93 70 - 106 mg/dL 08/09/2019 9:30 AM [facility] Specimen Type Venous 08/09/2019 9:30 AM [facility] Blood BLOOD SPECIMEN / Unknown 08/09/2019 9:23 AM ISOTOPE HYDROLOGIST 08/09/2019 9:30 AM ISOTOPE HYDROLOGIST Sirena Hickman MD LAB - POINT OF CARE ORDERABLES [facility] [address] [place] [address] * CT BRAIN - Stroke (08/09/2019 9:16 AM ISOTOPE HYDROLOGIST) Anatomical Region Laterality Modality Head Computed Tomogra phy 08/09/2019 9:18 AM ISOTOPE HYDROLOGIST Impressions 08/09/2019 9:23 AM ISOTOPE HYDROLOGIST 1. No acute findings. 2. Chronic focal encephalomalacia in the left frontal-parietal vertex with accompanying chronic craniotomy changes Reading Radiologist: Niurka Ewing MD on 08/09/2019 at 9:23 AM Narrative 08/09/2019 9:[address] brain, noncontrast DATE: 08/09/2019 INDICATION: Left [...] Positive(A ) Negative 01/03/2018 8:26 AM CDT [facility] Urine URINE / Unknown 01/03/2018 8 :21 AM CDT 01/03/2018 8:26 AM CDT Russell Sood DO LAB - POINT OF CARE ORDERABLES Performing Organization Address City/State/[facility] Co de Phone Number [facility] [address] [place] [address] * CULTURE URINE (01/03/2018 8:18 AM CDT) Only the most recent of4 resultswithin the time period is included. Culture Urine 10,000-50,000 CFU/mL urogenital stephanie BRYANT 01/04/2018 1:13 PM CDT [facility] Urine URINE SPECIMEN OBTAINED BY CLEAN CATCH PROCEDURE / Unknown Collection / Unknown 01/03/2018 8:18 AM CDT 01/03/2018 8:50 AM CDT Russell Sood DO LAB - MICROBIOLOGY O RDERABLES Performing Organization Address City/[facility] Co de Phone Number [facility] [address] [place] [phone] * HCG URINE QUAL POCT NOTIFICATION (01/03/2018 8:15 AM CDT) Comment Notification Label Only - See Separate Report 01/03/2018 10:00 AM CDT [facility] Urine URINE / Unknown 01/03/2018 8 :15 AM CDT 01/03/2018 8:15 AM CDT Russell Sood DO LAB - URINALYSIS ORD ERABLES Performing Organization Address [facility] Co de Phone Number [facility] [address] [place] [phone] * MAGNESIUM BLOOD (01/03/2018 8:11 AM CDT) Only the most recent of2 resultswithin the time period is included. Magnesium 1.9 1.6 - 2.6 mg/dL 01/03/2018 8:33 AM CDT [facility] Blood BLOOD SPECIMEN / Unknown Venipuncture / Unknown 01/03/2018 8:11 AM CDT 01/03/2018 8:14 AM CDT Russell Sood DO LAB - CHEMISTRY ORDE RABDAVID Performing Organization Address [facility] Co de Phone Number [facility] [address] [place] [address] * CT ANGIO NECK HEAD W WO [...] Performing Organization Address City/[facility] Co de Phone Number [facility] POCT TESTING [address] [place] [address] * TYPE + SCREEN PANEL (10/22/2017 1:33 PM CDT) Only the most recent of4 resultswithin the time period is included. ABO B 10/22/2017 2:22 PM CDT [facility] Rh Type Positive 10/22/2017 2:22 PM CDT [facility] Comment:History checked. Antibody Screen Negative 10/22/2017 2:22 PM CDT [facility] Blood Bank BLOOD SPECIMEN / Unknown Venipuncture / Unknown 10/22/2017 1:33 PM CDT 10/22/2017 1:36 PM CDT Russell Sood DO LAB - BLOOD BANK ORD ERABLES Performing Organization Address City/[facility]/ZIP Co de Phone Number [facility] [address] [place] [address], [facility] [phone] * (ABNORMAL) C-REACTIVE PROTEIN (10/22/2017 12:10 PM CDT) Pathologist [facility] C-Reactive Protein 0.47(H) <0.30 mg/dL 10/22/2017 1:42 PM CDT [facility] Blood BLOOD SPECIMEN / Unknown Venipuncture / Unknown 10/22/2017 12:10 PM CDT 10/22/2017 1:30 PM CDT Russell Sood DO LAB - CHEMISTRY ORDE RABLES Performing Organization Address [facility] Co de Phone Number [facility] [address] [place] [address] * (ABNORMAL) ERYTHROCYTE SEDIMENTATION RATE (10/22/2017 12:10 PM CDT) [facility] Erythrocyte Sedimentation Rate Automated 24(H) 0 - 20 MM/HR 10/22/2017 1:31 PM CDT [facility] Blood BLOOD SPECIMEN / Unknown Venipuncture / Unknown 10/22/2017 12:10 PM CDT 10/22/2017 12:19 PM CDT Russell Sood DO LAB - HEMATOLOGY ORD ERABLES Performing Organization Address [facility] de Phone Number [facility] [address] [place] [address] * GLUCOSE ACCUCHECK (03/20/2017 7:28 AM CDT) Only the most recent of13 resultswithin the time period is included. Pathologist [facility] Glucose, Fingerstick 102 70-115mg/d L mg/dL [facility] ([facility]) Comment:Keyboarding Clerk: OLAF CASTILLOEY 03/20/2017 7:28 AM CDT Narrative [facility] - 03/20/2017 7:28 AM CDT Ordered by Juliano Crandall Historical Provider LAB - CHEMISTRY O RDSTEVE Performing Organization Address [facility] Co de Phone Number [facility] * (ABNORMAL) BASIC METABOLIC PANEL (CALCIUM TOTAL) (03/20/2017 12:27 AM CDT) Only the most recent of9 resultswithin the time period is included. BUN 23 7 - 26 mg/dL [facility] Creatinine 0.9 0.6 - 1.2 mg/dL [facility] Sodium 144 136 - 145 mmol/L [facility] Potassium 3.3(L) 3.5 - 4.5 mmol/L [facility] Chloride 110(H) 98 - 107 mmol/L [facility] CO2 18(L) 22 - 29 mmol/L [facility] Glucose 115 70 - 115 mg/dL [facility] Calcium 9.5 8.4 - 10.2 mg/dL [facility] Anion Gap 19(H) 8 - 18 [facility] BUN/Creatinine Ratio 26(H) 7 - 23 [facility] Osmolality Calculated 303(H) 270 - 300 mOsm/kg [facility] eGFR >60 >60 mL/min/1.7 3 m2 [facility] Blood specimen (specimen) BLOOD SPECIMEN / Unknown 03/20/2017 12:27 AM CDT 03/20/2017 12:30 AM CDT Steffi Henao MD LAB - CHEMISTRY [facility] Organization Address City/State/[facility] Co de Phone Number [address] [phone] * MRI BRAIN WWO CONTRAST (03/16/2017 6:44 PM CDT) Only the most recent of2 resultswithin the time period is included. Anatomical Region Laterality Modality Head Other Impressions 03/17/2017 6:48 AM CDT IMPRESSION: 1. 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 This report was electronically signed by JACEK LANCASTER M.D. on 03/17/2017 6:48 AM . Narrative 03/17/2017 6:48 [...] PM CDT) Surgical Pathology Tissue ACCESSION No: [id number] CLINICAL HISTORY: Brain mass. FINAL DIAGNOSIS: BRAIN, STEREOTACTIC BIFRONTAL CRANIOTOMY, RESECTION: - COLLOID CYST - SEE COMMENT GROSS DESCRIPTION: Received fixed in formalin in one container for gross and microscopic examination, labeled with the patient's name, Vera Purdy and colloid cyst , is one 0.9 x 0.6 x 0.6 cm oval, white-ling portion of tissue. The specimen is inked black and bisected revealing firm, white-yellow material. The specimen is submitted entirely in cassette A1. KH/edk MICROSCOPIC DESCRIPTION: Hematoxylin and eosin-stained sections of the colloid cyst show a hypocellular fibrous wall lined by ciliated simple columnar epithelium overlying acellular, amorphous, proteinaceous material. There is no evidence of malignancy. KS/KH The performance characteristics of all immunohistochemical and indirect immunofluorescence stains (if any) cited in this report were determined by the Histopathology Laboratory of [facility]. Some of these tests were developed by our own laboratory and have not been cleared or approved by the US Food and Drug Administration. The FDA does not require this test to go through premarket FDA review. These tests are used for clinical purposes. They should not be regarded as investigational or for research. This laboratory is certified under the Clinical Laboratory Improvement Amendments (CLIA) as qualified to perform high complexity clinical laboratory testing. This case has been personally reviewed and interpreted by the attending (teaching) pathologist. Final Diagnosis performed by Aicha Taylor MD. Electronically signed 03/15/2017 [facility]OLOGY LAB (SHASHI) Resection without Tumor CYST TISSUE / Unknown 03/14/2017 2:05 PM CDT 03/14/2017 3:08 PM CDT Narrative [facility] LAB ([facility]ASHI) - 03/15/2017 10:58 PM CDT Pre-op diagnosis: COLLOID CYST Steffi Henao MD LAB - PATHOLOGY/CYTO LOGY ORDERABLES [facility] PATH[facility]Y LAB (SHASHI) * CT GUIDED STEREO [...] electronically signed by ADAM KNOX M.D. on 03/14/2017 6:39 AM . Narrative 03/14/2017 6:39 [...] M.D. on 03/14/20176:39 AM . Kyra Cano APRN-ELECTRICAL MAINTENANCE TECHNICIAN CT ORDERABLES * CROSSMATCH RBC LEUKOREDUCED (03/13/2017 10:05 AM CDT) 03/13/2017 10:0 5 AM CDT 03/13/2017 10:05 AM CDT Narrative [facility] - 03/13/2017 10:05 AM CDT # of Units->2 Eleanor Cantu PA-C LAB - BLOOD BA NK ORDERABLES [facility] [address] * HCG URINE QUALITATIVE - POCT (IP) [facility] (03/09/2017 4:22 PM CDT) Test Urine negative [facility] Urine specimen (specimen) 03/09/2017 4:22 PM CDT Narrative [facility] - 03/09/2017 4:22 PM CDT negative Eagle Mensah MD LAB - POINT OF CARE ORDERABLES [facility] * PTT [facility] (03/09/2017 4:21 PM CDT) APTT 29.1 23.0 - 38.4 Seconds [facility] Comment:Suggested therapeuti c range for full dose I.V. heparin therapy for venous thromboembolism is 66.0-91.0 seconds. Blood specimen (specimen) BLOOD SPECIMEN / Unknown 03/09/2017 4:21 PM CDT 03/09/2017 4:28 PM CDT Narrative [facility] - 03/09/2017 4:39 PM CDT Please ensure that the aPTT specimen is received in the clinical lab within 1 hour of collection if it is used for therapeutic heparin monitoring. Processing of heparinized specimens older than 1 hour may result in inaccurate test results. Is patient on Heparin, Argatroban or Dabigatran?->N Eagle Mensah MD LAB - COAGULATION OR DERABLES Performing Organization Address [facility] de Phone Number [address] [phone] * PT-INR [facility] (03/09/2017 4:21 PM CDT) PT 12.1 12.1 - 14.8 Seconds [facility] INR 0.9 See Comment [facility] Comment: Suggested therapeutic range for low-intensity coumadin therapy for venous thromboembolism prophylaxis is an INR of 2.0-3.0. For high risk patients (Mitral Valve Prosthesis, Atrial Fibrillation, history of TIA/stroke), suggested prophylactic therapeutic range is an INR of 2.5-3.5. Blood specimen (specimen) BLOOD SPECIMEN / Unknown 03/09/2017 4:21 PM CDT 03/09/2017 4:28 PM CDT Narrative [facility] - 03/09/2017 4:38 PM CDT Is patient on Heparin, Argatroban or Dabigatran?->N Eagle Mensah MD LAB - COAGULATION OR DERABLES Performing Organization Address [facility] Co de Phone Number [address] [phone] * ED INCISION AND DRAINAGE (11/21/2014 9:21 PM CDT) Narrative Cabrera Braun, - 11/21/2014 9:21 PM CDT Cabrera Braun DO 11/21/2014 9:21 PM Provider contact with the patient: 11/21/2014 19:41 Vera Purdy [id number] [facility] EMERGENCY DEPARTMENT History Chief Complaint Patient presents with POST-OP PROBLEM pt to ED with c/o [...] Eden BP 151/104 Pulse 97 Temp(Src) 98.1 F Resp 18 Ht 1.676 m (5' 6 ) Wt 117.935 kg (260 lb) BMI 41.99 kg/m2 SpO2 99% on RA. Past Medical History Diagnosis Date Polycystic ovaries Overweight, obesity and other hyperalimentation(278) Trichomonas 2006 treated Generalized anxiety disorder Depressive disorder, not elsewhere classified GERD (gastroesophageal reflux disease) Pure hypercholesterolemia Bipolar 1 disorder Past Surgical History Procedure Laterality Date Tympanoplasty corrective hearing Cholecystectomy Hysteroscopy section Excision/ destruction tumor/mass Right 11/10/14 axillary and lymph node biopsy Excision/ destruction tumor/mass 11/10/2014 EXCISION MASS RIGHT AXILLARY Family History Problem Relation Age of Onset Diabetes Father Diabetes Maternal Grandmother Diabetes Brother Hypertension Mother Hypercholesterolemia Father History Social History Marital Status: Spouse Name: N/A Number of Children: N/A Years of Education: N/A Occupational History Not on file. Social History Main Topics Smoking status: Former Smoker -- 1.00 packs/day for 4 years Types: Cigarettes Quit date: 06/13/2014 Smokeless tobacco: Never Used Alcohol Use: No Drug Use: No Sexual Activity: Yes Other Topics Concern Not on file Social History Narrative Review [...] Exam BP 151/104 Pulse 97 Temp(Src) 98.1 F Resp 18 Ht 1.676 m (5' 6 [...] Current Outpatient Prescriptions Medication Sig Dispense Refill oxyCODONE-acetaminophen (PERCOCET) 7.5-325 MG tablet Take 1 Tab by mouth every 4 hours as needed for Pain. 20 Tab 0 hydrocodone-acetaminophen (NORCO) 7.5-325 MG tablet Take 1 Tab by mouth every 4 hours as needed for Pain. 30 Tab 0 l-methylfolate (DEPLIN) 15 MG tablet Take 15 mg by mouth once daily. omeprazole (PRILOSEC) 20 MG capsule Take 20 mg by mouth daily before breakfast. dicyclomine (BENTYL) 10 MG capsule Take 10 mg by mouth 3 times daily. amitriptyline (ELAVIL) 25 MG tablet Take 25 mg by mouth at bedtime. buPROPion (WELLBUTRIN) 75 MG tablet Take 150 mg by mouth 3 times daily. oxyCODONE-acetaminophen (PERCOCET) 7.5-325 MG tablet Take 1 Tab by mouth at bedtime. folic ryyq-njhnluqnsn-sqccbobmdjthsp (FOLGARD) 0.8-10-0.115 MG tablet Take 1 Tab by mouth once daily. aspirin EC (ECOTRIN) 81 MG tablet Take 81 mg by mouth once daily. Vit-Fe Fumarate-FA ( VITAMIN) 28-0.8 MG tablet [...] case with Family/Caregiver. Orders Placed This Encounter ED INCISION AND DRAINAGE CULTURE FLUID+GRAM STAIN [id number] (NEOSPORIN) topical ointment oxyCODONE-acetaminophen (PERCOCET) 7.5-325 MG tablet Based on [...] patient to follow-up with: Matthieu Saeed DO [address] [facility] [address] Call in 2 days Hilda Eden APRN-ELECTRICAL MAINTENANCE TECHNICIAN Disposition: Discharged I have reviewed the information recorded by the scribe and agree with its accuracy and contents--Dr. Braun 11/21/2014 9:21 PM Transcribed by Maynor Langford acting scribe on behalf of Dr. Braun 11/21/2014 8:34 PM Cabrera Braun DO PROCEDURE/MINOR HARDY RGICAL ORDERABLES * CULTURE FLUID+GRAM STAIN (11/21/2014 8:36 PM CDT) Culture No Growth BRYANT 11/29/2014 3:34 PM CDT [facility]CROBIOLOG[facility] Gram Stain Heavy Red blood cells 11/29/2014 3:34 PM CDT [facility] Gram Stain No organisms seen 11/29/2014 3:34 PM CDT [facility]CRO[facility] Fluid BODY FLUID SPECIMEN / Unknown 11/21/2014 8:36 PM CDT 11/21/2014 8:51 PM CDT Cabrera Braun DO LAB - MICROBIOLOGY ORDERABLES [facility]CRO[facility] [address] [place], [place] [address] [phone] * GROSS + MICRO EXAM (STL) (11/10/2014 9:45 AM CDT) Case Report Surgical Pathology Report Case: [id number] Authorizing Provider: Matthieu Saeed DO Collected: 11/10/2014 09:45 AM Ordering Location: [facility] Received: 11/11/2014 07:54 AM Pathologist: Aric Orozco MD Specimens: A) - Axilla, right axillary node B) - Axilla, right axillary tissue 11/12/2014 4:14 PM CDT [facility] Final Diagnosis 1. Right axillary lymph node, excision: -- Reactive follicular hyperplasia 2. Right axillary tissue, resection: -- Skin and mature adipose tissue (see microscopic) /jacqueline 11/12/2014 4:14 PM CDT [facility] Gross Description Received are two containers each labeled Vera Purdy. Container 1 is labeled right axillary node. The container holds a 4 x 3 x 1.5 cm ling node with attached yellow-ling soft tissue. The node has an unremarkable cut surface. The node is entirely submitted in cassette A1-A6. Container 2 is labeled right axillary tissue. The container holds a 10 x 6.5 x 4.5 cm yellow-ling lobular soft tissue fragment with an attached 8 x 1.5 cm ling skin ellipse. The margin of resection is inked blue. Sectioning shows a yellow and ling minimally fibrous cut surface. There are no lesions or masses grossly identified. Search Specialist sections are submitted as follows: B1-tips of skin ellipse; B2 through B6-random sections of axillary skin and tissue with full thickness section in cassettes B5/B6. DYT/alj 11/12/2014 4:14 PM CDT [facility] Microscopic Description The right axillary tissue [...] was seen. /jacqueline 11/12/2014 4:14 PM CDT [facility] Pathology/Cytology TISSUE SPECIMEN FROM AXILLA / Unknown 11/10/2014 9:45 AM CDT 11/11/2014 7:54 AM CDT Comment:799.9 Miscellaneous samples (specimen) TISSUE SPECIMEN FROM AXILLA / Unknown 11/10/2014 9:45 AM CDT 11/11/2014 7:54 AM CDT Comment:799.9 Matthieu Saeed DO LAB - PATHOLOGY/CYTO LOGY ORDERABLES [facility] [address] [place] [id number] * IMAGING/RADIOLOGY/XRAY RESULTS ORDER (02/17/2010 10:43 AM CDT) Anatomical Region Laterality Modality Other Narrative 02/17/2010 10:43 AM CDT Ordered by an unspecified provider. Transcriptions Document, Scanned - 02/11/2010 12:00 AM CDT Scanned Document IMAGING * GROSS + MICRO EXAM (02/14/2010 12:00 AM CDT) [facility] Surgeon DR. Moiz TRUJILLO [facility] Grossed By LORRIE JACK [facility] Gross Report [facility] Comment: COPY TO: INDICATION FOR PROCEDURE: Cholecystitis, cholelithiasis OPERATION: Laparoscopic cholecystectomy GROSS: The specimen is received in one container labeled with the patient's name and gallbladder. The specimen is received in formalin and consists of an 11.5 cm in length and up to 3.8 cm in diameter congested purple to greenish-ling gallbladder. The serosa is smooth. At the neck of the gallbladder is a 4 mm ling nodule/possible lymph node. The lumen contains green bile and multiple smooth faceted yellow stones that measure up to 1.7 cm. The gallbladder wall ranges from 1-2 mm in thickness. The mucosa is focally eroded, green to reddish-ling and smooth. Search Specialist sections of the specimen including the cystic duct margin and possible lymph node are submitted in a single cassette. LW/km Microscopic Examination [facility] Comment: MICROSCOPIC: The sections of the gallbladder show gallbladder wall well preserved. Mucosa is in part surfaced by columnar epithelium. Mild chronic inflammation is seen. No dysplasia or malignancy is identified. A small unremarkable lymph node is present as well. JW/km Diagnosis [facility] Comment: DIAGNOSIS: 1. Gallbladder, cholecystectomy: -- Cholecystitis, chronic, mild -- Cholelithiasis JW/km Released by Reinaldo HENDRICKSON [facility] CPT Code 76883 [facility] ENTIRE GALLBLADDER / Unknown 02/14/2010 02/15/2010 9:16 AM CDT Anne Graf MD LAB - PATHOLOGY/CYTO LOGY ORDERABLES [facility] [address] [place] [address] * (ABNORMAL) PT PTT PANEL (02/13/2010 6:19 AM CDT) PT 11.4(H) 9.4 - 11.2 seconds [facility] INR 1.1 SEE BELOW [facility] Comment: 0.9-1.1 Normal 2.0-3.0 Conventional 2.5-3.5 Intensive PTT 30.6 24.0 - 32.0 seconds [facility] BLOOD SPECIMEN / Unknown 02/13/2010 6:19 AM CDT 02/13/2010 6:19 AM CDT Anne Graf MD LAB - COAGULATION OR DERABLES Performing Organization Address [facility] Co de Phone Number [facility] [address] [place] [address] * PTT (02/11/2010 11:00 PM CDT) PTT 24.5 24.0 - 32.0 seconds [facility] BLOOD SPECIMEN / Unknown 02/11/2010 11:00 PM CDT 02/11/2010 11:12 PM CDT Anne Graf MD LAB - COAGULATION OR DERABLES Performing Organization Address [facility] de Phone Number [facility] [address] [place] [address] * CT ABDOMEN WWO PELVIS W CONT (02/07/2010 5:58 PM CDT) Anatomical Region Laterality Modality Abdomen, Pelvis Computed Tomogra phy 02/07/2010 6:00 PM CDT Impressions 02/07/2010 6:[address] the abdomen and pelvis demonstrates no acute inflammatory process. This examination was transcribed using the [employer] voice recognition system without human sheet cutting operator. In an effort to expedite patient care, this report has not been adjusted for typographical, grammatical, and syntax by a trained director biomedical engineering. Narrative 02/07/2010 6:02 PM CDT Indication: Right [...] process. This examination was transcribed using the [employer] voice recognition system without human sheet cutting operator. In an effort to expedite patient care, this report has not been adjusted for typographical, grammatical, and syntax by a trained director biomedical engineering. Rolando ANDREW CT ORDERABLES * CHLAMYDIA + GC DNA PROBE AMPLIFIED (02/07/2010 5:21 PM CDT) Only the most recent of2 resultswithin the time period is included. GC Amplified Probe NEGATIVE [facility] Chlamydia trachomatis Amplified Probe NEGATIVE [facility] Comment Amplified Probe [facility] Comment: Results based on detection/no detection of ribosomal RNA by amplified method. ENTIRE ENDOCERVIX / Unknown 02/07/2010 5:21 PM CDT 02/07/2010 5:21 PM CDT Narrative Resulting Agency Comment Performed By [facility] - [facility] [address] [place] [address] Rolando ANDREW LAB - MICROBIOLOGY O RDERABLES [facility] [address] [place] [address] * WET PREP SMEAR (02/07/2010 5:21 PM CDT) Only the most recent of2 resultswithin the time period is included. Trichomonas Rapid Test None Detected [facility] PART OF UTERINE CERVIX / Unknown 02/07/2010 5:21 PM CDT 02/07/2010 5:21 PM CDT Rolando ANDREW [facility] - MICROBIOLOGY O RDERABLES [facility] [address] [place] [address] * US PELVIS W/TRANSVAG AND DOPPLER (02/07/2010 [...] (02/07/2010 2:23 PM CDT) Color UA YELLOW [facility] Character UA CLEAR [facility] Specific [place] UA 1.007 1.005 - 1.0300 [facility] pH UA 6.0 4.6 - 8.0 pH Units [facility] Leukocyte UA NEGATIVE Negative /ul [facility] Nitrite UA NEGATIVE Negative [facility] Protein UA NEGATIVE Negative mg/dl [facility] Glucose UA NEGATIVE Normal mg/dl [facility] Ketone UA NEGATIVE Negative mg/dl [facility] Urobilinogen UA 0.2 Normal Valorie Units [facility] Bilirubin UA NEGATIVE Negative mg/dl [facility] Blood UA NEGATIVE Negative /ul [facility] WBC UA <5 /HPF [facility] RBC UA <5 /HPF [facility] Epithelial Cell UA <5 /HPF [facility] Casts UA <2 /LPF [facility] Bacteria UA NEGATIVE [facility] URINE SPECIMEN OBTAINED BY CLEAN CATCH PROCEDURE / Unknown 02/07/2010 2:23 PM CDT 02/07/2010 2:23 PM CDT Romain Barreto MD LAB - URINALYSIS ORD ERABLES [facility] [address] [place] [address] * HCG BLOOD QUALITATIVE (02/07/2010 2:20 PM CDT) HCG Qual Serum Not Detected Not Detected [facility] BLOOD SPECIMEN / Unknown 02/07/2010 2:20 PM CDT 02/07/2010 2:46 PM CDT Rolando ANDREW LAB - CHEMISTRY ORDE ROYER [facility] [address] [place] [address] * US OB < 14 WKS W/TRANSVAG AND DOPPLER (03/15/2009 4:44 PM CDT) Anatomical Region Laterality Modality Ultrasound 03/15/2009 5:05 PM CDT Impressions 03/15/2009 5:08 PM CDT Unremarkable exam. No evidence of intrauterine . This examination was transcribed using the [employer] voice recognition system without human sheet cutting operator. In an effort to expedite distribution and patient care, this report has not been adjusted for typographical, grammatical, and syntax by a trained director biomedical engineering. Narrative 03/15/2009 5:08 PM CDT Ultrasound OB [...] . This examination was transcribed using the [employer] voice recognition system without human sheet cutting operator. In an effort to expedite distribution and patient care, this report has not been adjusted for typographical, grammatical, and syntax by a trained director biomedical engineering. Rolando ANDREW ORDERABLES Care Teams Pinion Staker Relationship Specialty Start Date End Date Dionicio Colindres DO [address] [place] [address] PCP - General Family Medicine 01/03/18
--- OUTSIDE RECORDS SUMMARY | 2024-09-24 13:30 | XMS_ITS | Clinical Summary ---
Author Organization [facility] Address [address] [place] [address] Care Team Providers Care Tattooer Name Role Phone Bernadine Dionicio Arnel Primary Care Provider [phone] Source Comments [facility],non-owned Affiliates and Associated Physician Practices is amultiple site organization consisting of ambulatory clinics and hospital sitesin [place], [place], [place] and [place]. This disclosure is being madepursuant to the Care Everywhere program and may not contain all information available regarding this patient. Last updated 18.[facility] [employer] Allergies Active Allergy Reactions Criticality Noted Date [...] by mouth once daily Active Prenat w/o N-PV-Rgqocjo-FA-D ANAND (PNV-DHA PO) Take by mouth once [...] CDT Respiratory Rate 18 08/25/2022 7:43 AM OFFICE SPEC Oxygen Saturation 99% 03/27/2023 3:17 PM CDT Inhaled Oxygen Concentration - - Weight 95.3 kg (210 lb 1.6 oz) 03/27/2023 3:17 P M CDT Height 165 cm (5' 4.96 ) 03/27/2023 3:17 PM CDT Body Mass Index 35 03/27/2023 3:17 PM CDT Plan of Treatment Health Maintenance Due Date Last Done Comments MEDICARE AWV 12 MONTHS 1985 HEPATITIS C SCREENING 06/01/2003 DTAP/TDAP/TD VACCINES (1 - Tdap) 2004 HEPATITIS B VACCINE (1 of 3 - 19+ 3-dose series) 2004 COVID-19 VACCINE ( - 2023- season) 2024 INFLUENZA VACCINE (#1) 2024 7, 06/25/2015, 06/11/2015, Additional history exists DEPRESSION SCREENING 08/13/2024 PAP SMEAR 03/26/2026 03/26/2023 ZOSTER VACCINE (1 of 2) 2035 HIV SCREENING Completed 04/06/2023 HIB VACCINE Aged Out No longer eligi ble based on patient's age to complete this topic HPV VACCINE Aged Out No longer eligi ble based on patient's age to complete this topic MENINGOCOCCAL (Group B) VACCINE Aged Out No longer eligible based on patient's age to complete this topic MENINGOCOCCAL VACCINE Aged Out No oyl justina eligible based on patient's age to [...] ve Non-react shanti 04/06/2023 8:08 AM CDT [facility] Comment:No Laboratory eviden ce of HIV infection. Blood BLOOD SPECIMEN / Unknown Lab Venipuncture / Unknown 04/06/2023 6:50 AM CDT 04/06/2023 7:01 AM CDT Carey Partida MD LAB - CHEMISTRY [facility] [address] [place] [id number], 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 Self Pay MEDICARE MEDICARE PART A AND B [id number] Effective for all dates [address] [place] [address] Medicare SELF PAY NO INSURANCE SELF PAY NO INSURANCE Effective for all dates [place] Self [place] MEDICARE MEDICARE PART A AND B [id number] Effective for all dates [address] [place] [address] Medicare SELF PAY NO INSURANCE SELF PAY NO INSURANCE Effective for all dates [place] MEDICARE MEDICARE PART A AND B [id number] Effective for all dates [address] [place] [address] Medicare SELF PAY NO INSURANCE SELF PAY NO INSURANCE Effective for all dates [place] MEDICARE MEDICARE PART A AND B [id number] Effective for all dates [address] [place] [address] Medicare SELF PAY NO INSURANCE SELF PAY NO INSURANCE Effective for all dates [place] MEDICARE MEDICARE PART A AND B [id number] Effective for all dates [address] [place] [address] Medicare SELF PAY NO INSURANCE SELF PAY NO INSURANCE Effective for all dates [place] Self [place] MEDICARE WPS MEDICARE PART B [id number] 07/13/2015-Pre sent [address] [address] [place] [address] Medicare [place] [employer] [id number] 11/11/2022-Pres ent ATTN: MELISSA Gonzalez [address] [place] [address] Medicaid MEDICARE MEDICARE PART A AND B [id number] 07/13/2015-Pre sent [id number] [address] [place] [address] Medicare [place] BSC PLAN [id number] Effective for all dates [address] [place] [address] Medicaid [place] Advance Directives * Full Code (Latest Code Status on File) Date Activated Date Inactivated Comments 08/22/2010 10:42 AM 08/22/2010 11:57 PM * Full Code Date Activated Date Inactivated Comments 02/14/2010 1:50 PM 02/17/2010 5:57 AM * Full Code Date Activated Date Inactivated Comments 02/11/2010 8:28 PM 02/14/2010 1:50 PM Care Teams Tattooer Relationship Specialty Start Date End Date Dionicio Colindres DO [address] [place] [address] [place] [address] PCP - General Family Medicine 01/03/18
--- OUTSIDE RECORDS SUMMARY | 2024-09-24 13:30 | XMS_ITS | Clinical Summary ---
Author Organization [facility] Address [address] [place] [address] Care Team Providers Care Athletic Events Scorer Name Role Phone Meng King MD Primary Care Provider [phone] Allergies Active Allergy Reactions Criticality Noted Date Comments Adhesive Other (See Comments) 04/12/2012 Skin irritation Unclassified Drug Other (See Comments) 03/17/20 18 control pills cause vaginal bleeding Medications traMADoL (ULTRAM) 50 mg tablet Take 100 mg by mouth. 10/03/2022 Active gabapentin (NEURONTIN) 100 mg capsule Take 600 mg by mouth daily. 11/07/2023 Active promethazine (PHENERGAN) 25 mg tablet Take 25 mg by mouth every 6 hours as needed for Nausea/Emes is. Active Active Problems Problem Noted Date Diagnosed [...] Normal (single liveborn) 11/23/2010 C section 11/2111/21/2010 Dyspnea on exertion Chest pain Resolved Problems Problem Noted Date Diagnosed Date Resolved Date R/O labor 11/20/2010 11/20/2010 MIL, cervidil, elevated BP, ALT elevated, trace protein, B+ 11/20/2010 11/21/2010 Encounters Date Type Department Care Team Description 09/10/2024 External Device Data [facility] ABSTRACTION Provider, Abstract 09/04/2024 External Device Data [facility] ABSTRACTION Provider, Abstract from Last 3 Months Immunizations Immunization Administration Dates Next Due (ADACEL/BOOSTRIX)(10 YR UP) [...] Date Smoking Tobacco: Every Day Cigarettes 1 13.1 Started: 08/13/2021 Smokeless Tobacco: Never Alcohol Use Standard Drinks/Week Comments No 0 (1 standard drink = 0.6 oz pur e alcohol) Comments No Sex and Gender Information Value Date Recorded Sex Assigned at Not on file Legal Sex Female 4:09 AM CORPORATE LEGAL MANAGER Gender Identity Not on file Sexual Orientation Not on file Occupation Industry Job Start Date Job End Date Not on file Not on file Not on file Not on file Last Filed Vital Signs Vital Sign Reading Time Taken Comments Blood Pressure 126/79 04/08/2024 9:56 AM CDT Pulse 67 04/08/2024 9:56 AM CDT Temperature 36.8 C (98.2 F) 04/08/2024 9:56 AM CDT Respiratory Rate 16 04/08/2024 9:56 AM CDT [...] st Contact Info) Description 10/14/2024 11:00 AM CORPORATE LEGAL MANAGER Office Visit [facility] Oncology and Hematology - Alirio [address] [facility] [address] [place] [address] Ubaldo Cardenas MD [address] [facility] [address] [place] [address] Health Maintenance Due Date Last Done Comments Pre-Diabetes and Diabetes Screening 1985 PNEUMOCOCCAL VACCINE 0-64 YEARS (1 of 2 - PCV) 1991 HEPATITIS B VACCINES (1 of 3 - 19+ 3-dose series) 2004 DTAP/TDAP/TD VACCINES (2 - T d or Tdap) 11/25/2020 11/25/2010 INFLUENZA VACCINE (#1) 2024 7, 06/11/2015, 07/13/2010 CERVICAL CANCER SCREENING 07/11/20252021, 07/11/2022 HPV VACCINES Aged Out No longer eligi ble based on patient's age to complete this topic Insurance MEDICARE PART A AND B [place]ICAID [place] RX AETNA Medicare Part D RX INFOCROSSING Medicaid RX AETNA Medicare Part D MEDICARE MEDICARE PART A AND B MEDICARE PART A AND B Advance Directives For more information, please contact: [phone] * Full Code (Latest Code Status on [...] 11:37 AM 09/13/2016 5:31 PM Care Teams Athletic Events Scorer Relationship Specialty Start Date End Date Meng King MD [address] [id number] PCP - General Family Practice 11/15/23
--- OUTSIDE RECORDS SUMMARY | 2024-09-24 13:31 | XMS_ITS | Encounter Summary ---
Author Organization [facility] Address [address] [place] [address] Care Team Providers Care Heavy Equipment Diesel Mechanic Name Role Phone Meng King MD Primary Care Provider [phone] Encounter Details Date Type Department Care Team (Latest Contact Info) Description 10/24/2008 Outpatient Historical [facility] [place] [address] [facility] [address] Acute Upper Respiratory Infections of Unspecified Site; Bronchitis, not Specified as Acute or Chronic; Tobacco Use Disorder; Pure Hypercholesterolemia Social History Tobacco Use Types Packs/Day Years Used Date Smoking Tobacco: Never Assessed Comments Unknown Sex and Gender Information Value Date Recorded Sex Assigned at Not on file Legal Sex Female 4:09 AM PRESS OPERATOR [employer] Gender Identity Not on file Sexual Orientation Not on file documented as of this encounter Plan of Treatment Upcoming Encounters Date Type Department Care Team (Late st Contact Info) Description 10/14/2024 11:00 AM PRESS OPERATOR [employer] Office Visit [facility] Oncology and Hematology - Alirio [address] [facility] [address] [place] [address] Ubaldo Cardenas MD [address] [facility] [address] [place] [address] documented as of this encounter Visit Diagnoses Diagnosis Acute upper respiratory infections of unspecified site Bronchitis, not specified as acute or chronic Tobacco use disorder Pure hypercholesterolemia documented in this encounter Additional Health Concerns Infection Onset Date Last Indicated Resolved Time COVID-19 08/24/2020 08/24/2020 09/23/2020 1:16 AM PRESS OPERATOR [employer] documented as of this encounter Care Teams Heavy Equipment Diesel Mechanic Relationship Specialty Start Date End Date Meng King MD [address] [place] [address] PCP - General Family Practice 11/15/23 documented as of this encounter
--- OUTSIDE RECORDS SUMMARY | 2024-09-24 13:31 | XMS_ITS | Encounter Summary ---
Author Organization [facility] Address [address] [place] [address] Care Team Providers Care Refrigeration Plant Operator Name Role Phone Meng King MD Primary Care Provider [phone] Encounter Details Date Type Department Care Team (Late st Contact Info) Description 03/13/2009 Outpatient Historical [facility] EMERGENCY RO[facility] Er, Authorized P NO ADDRESS ON FILE Landon Yadav MD [facility] [place] [address] Threatened , Antepartum; Tobacco Use Disorder Social History Tobacco Use Types Packs/Day Years Used Date Smoking Tobacco: Never Assessed Comments Unknown Sex and Gender Information Value Date Recorded Sex Assigned at Not on file Legal Sex Female 4:09 AM TOOL DISPATCHER Gender Identity Not on file Sexual Orientation Not on file documented as of this encounter Plan of Treatment Upcoming Encounters Date Type Department Care Team (Late st Contact Info) Description 10/14/2024 11:00 AM TOOL DISPATCHER Office Visit [facility] Oncology and Hematology - Alirio [address] [facility] [address] [place] [address] Ubaldo Cardenas MD [address] [facility] [address] [place] [address] documented as of this encounter Procedures Procedure Name Priority Date/Time Associated Diagnosis Comments ABORH TYPING Routine 03/13/2009 6:32 PM CDT CBC WITH DIFFERENTIAL Stat 03/13/2009 6:30 PM CDT HCG QUANTITATIVE, BLOOD Stat 03/13/2009 6:30 PM CDT documented in this encounter Results * ABORH TYPING (03/13/2009 6:32 PM CDT) HISTORY CHECK No Historical ABO/Rh [facility] SPECIMEN LIFE 3 days from drawdate [facility] ABO/RH TYPE B Positive [facility] Blood specimen (specimen) 03/13/2009 6:32 PM CDT Landon Yadav MD BLOOD BANK ORDERABLES Edited INTERFACE SYSTEM Refer to clinic/hospital department [facility] CLIA# [id number] [address] [facility] [address] [place] [address] * (ABNORMAL) CBC WITH DIFFERENTIAL (03/13/2009 6:30 PM CDT) PLATELETS 301 140 - 350 K/uL [facility] HEMOGLOBIN 15.7(H) 11.8 - 14.8 g/dL [facility] RDW 13.5 11.5 - 14.5 % [facility] WBC 11.9(H) 4.0 - 9.8 K/uL [facility] MCH 29.7 27.2 - 32.6 pg [facility] MPV 8.9(L) 9.3 - 12.4 fL [facility] HEMATOCRIT 44.6(H) 35.5 - 44.0 % [facility] RDW-STDEV 41.1 37.1 - 48.7 fL [facility] RBC 5.28(H) 3.90 - 4.90 M/uL [facility] MCHC 35.2 31.5 - 35.5 % [facility] MCV 84.5 82.0 - 99.0 fL [facility] EOSINOPHILS 1 0 - 7 % [facility] EOSINOPHIL ABSOLUTE 0.17 0.00 - 0.70 K/uL [facility] LYMPHOCYTES 31 16 - 45 % [facility] LYMPHOCYTE ABSOLUTE 3.69 0.70 - 4.50 K/uL [facility] BASOPHILS 0 0 - 2 % [facility] BASOPHILS ABSOLUTE 0.03 0.00 - 0.20 K/uL [facility] MONOCYTES 6 3 - 13 % [facility] MONOCYTE ABSOLUTE 0.66 0.10 - 1.30 K/uL [facility] NEUTROPHILS 62 45 - 70 % [facility] NEUTROPHIL ABSOLUTE 7.36(H) 1.90 - 7.00 K/uL [facility] Blood specimen (specimen) 03/13/2009 6:30 PM CDT 03/13/2009 6:40 PM CDT us Landon Yadav MD HEMATOLOGY ORDERABLES Edited [facility] CLIA# [id number] [address] [place], [place] [address] * (ABNORMAL) HCG QUANTITATIVE, BLOOD (03/13/2009 6:30 PM CDT) HCG QUANT, BLOOD 39(H) 0 - 5 mIU/mL [facility] Comment: Result of 5 - 25 mIU/mL is indeterminant for , repeat of test recommemded in 48 hours. Reference Range: Gestational Age: 3 Weeks 5.8 - 71.2 mIU/mL 4 [...] Before making a diagnosis of malignancy or etopic ,the result of this test should be confirmed with a urine HCG test and correlated with other clinical evidence. Blood specimen (specimen) 03/13/2009 6:30 PM CDT 03/13/2009 6:40 PM CDT us Landon Yadav MD CHEMISTRY ORDERABLES Edited [facility] CLIA# [id number] [address] [facility] [place] [address] documented in this encounter Visit Diagnoses Diagnosis Threatened , antepartum Tobacco use disorder documented in this encounter Additional Health Concerns Infection Onset Date Last Indicated Resolved Time COVID-19 08/24/2020 08/24/2020 09/23/2020 1:16 AM TOOL DISPATCHER documented as of this encounter Care Teams Refrigeration Plant Operator Relationship Specialty Start Date End Date Meng King MD [address] [place] [address] PCP - General Family Practice 11/15/23 documented as of this encounter
[2024-09-24 18:15] LABS: Basophils Percent Auto 0.4 % (0.2-1.2); Eosinophils Absolute Auto 0.1 K/mm3 (0-0.3); Hematocrit 40.7 % (37.0-47.0); Hemoglobin 13.4 g/dL (12.0-15.0); Immature Granulocyte Absolute 0.01 K/mm3 (0.00-0.031); Immature Granulocyte Percent A 0.1 % (0-0.5); Lymphocytes Percent Auto 24.2 % (18.3-44.2); Mean Corpuscular HGB Conc 32.9 g/dl (32-36); Mean Corpuscular Hemoglobin 27.1 pg (26-34); Mean Corpuscular Volume 82.4 fl (80-100); Mean Platelet Volume 9.1 fl (7.4-10.4); Monocytes Absolute Auto 0.3 K/mm3 (0.1-0.6); Monocytes Percent Auto 4.8 % (2.6-8.5); Neutrophils Absolute Auto 4.9 K/mm3 (1.3-6.7); Neutrophils Percent Auto 69.5 % (45.5-73.1); Platelet Count Result 283 k/mm3 (150-375); Red Blood Count 4.94 M/mm3 (4.2-5.4); Red Cell Distribution Width 13.1 % (11.5-14.5)
[2024-09-24 18:26] LABS: Iron 46 ug/dL (37-170)
[2024-09-24 18:35] LABS: Percent Iron Saturation 12 % (20-50)
[2024-09-25 07:49] LABS: DHEA-Sulfate 86 mcg/dL (19-237); FSH 5.6 mIU/mL; LH 4.7 mIU/mL; Prolactin 3.9 ng/mL
[2024-09-25 08:18] LABS: Progesterone 0.6 ng/mL
[2024-09-27 14:58] LABS: Anti Mullerian Hormone,Female 2.33 ng/mL (0.18-5.68)
[2024-10-01 15:38] LABS: Testosterone Free 1.4 pg/mL (0.1-6.4); Testosterone Total 11 ng/dL (2-45)
== END 2024-09-24 13:27 | disposition home or self-care (01) ==
LOC: ANHGOSHLAB 13:28
PROVIDERS: PCP Nurse Practitioner Family; Visit Provider Obstetrics & Gynecology
DX: N92.0 Excessive and frequent menstruation with regular cycle (principal)
CPT/HCPCS: 36415; 82627; 82670; 82728; 83001; 83002; 83540; 83550; 84144; 84146; 84402; 84403; 84443; 85025

== ENCOUNTER 2025-01-28 15:30 | Emergency (ER) | payer MEDICARE, SELFPAY ==
--- NOTE | ~2025-01-28 | US_ITS ---
EXAMINATION: US venous doppler [facility] DATE: 01/28/2025 18:56 INDICATION: Paresthesias TECHNIQUE: Grayscale ultrasound images without and with compression and Doppler ultrasound images of the bilateral lower extremity veins were obtained. COMPARISON: None. FINDINGS: The visualized portions of right common femoral vein, profunda (deep) femoral vein, femoral vein, pop liteal vein, peroneal veins, posterior tibial veins, and greater saphenous vein outflow are patent. The visualized portions of left common femoral vein, profunda femoral vein, femoral vein, popliteal v ein, peroneal veins, posterior tibial veins, and greater saphenous vein outflow are patent. IMPRESSION: 1. No deep venous thrombosis. Reviewed, dictated and finalized at location A.
--- NOTE | ~2025-01-28 | CT_ITS ---
History: Lower extremity paresthesias. Personal history of follicular lymphoma PROCEDURE: CT lumbar spine without intravenous contrast. COMPARISON: None TECHNIQUE: Multiple contiguous axial images of the lumbar spine were performed without the administration of int ravenous contrast. DLP: 1294 mGy-cm FINDINGS: Preservation of the normal lordotic curvature of the lumbar spine is identified. No acute compression fractures are present. No soft tissue abnormality is noted. The gallbladder is surgically absent. At the level of T12/L1: No significant disc disease is present. At the level of L1/L2: No significant disc degeneration is present. At the level of L2/L3: There is a broad-based disc protrusion without mass effect on either the spina l canal or bilateral neural foramen. At the level of L3/L4: Is a broad-based disc protrusion with trace mass effect on both the spinal can al and left neural foramen. Hypertrophy of the ligamentum flavum is also noted, contributing to the degree of spinal stenosis, wh ich measures 13 mm at this level. At the level of L4/L5: There is a broad-based disc protrusion with mass effect on both the spinal can al and bilateral neural foramen. Hypertrophy of the ligamentum flavum is also noted at this level, contributing to the degree of spina l stenosis, which measures 14.2 mm at this level. At the level of L5/S1: There is a broad-based disc protrusion without significant mass effect on either the final canal or bilateral neural foramen. Impression: No acute compression fracture. Degenerative disc disease, most prominent at the level of L3/L4, as detailed above. Reviewed, dictated and finalized at location A. Impression: No acute compression fracture. Degenerative disc disease, most prominent at the level of L3/L4, as detailed ab ove.
[2025-01-28 15:49] VITALS: BP 175/95; PULSE 95; RESP 18; TEMP 36.5; O2SAT 99
--- OUTSIDE RECORDS SUMMARY | 2025-01-28 17:19 | XMS_ITS | Clinical Summary ---
Author Organization [facility] Address [address] [place] [address] Care Team Providers Care Boilermaker Fitter Name Role Phone Bernadine Dionicio Arnel Primary Care Provider [phone] Source Comments [facility],non-owned Affiliates and Associated Physician Practices is amultiple site organization consisting of ambulatory clinics and hospital sitesin [place], [place] and [place]. This disclosure is being madepursuant to the Care Everywhere program and may not contain all information available regarding this patient. Last updated 18.[facility] Allergies Active Allergy Reactions Criticality Noted Date Comments Adhesive Sensitivity 11/10/2014 Can tolerate paper tape control pill form [Other] 06/14/2017 Sodium Hypochlorite Unknown 03/17/2018 control pills cause vaginal bleeding Medications * This document contains information received from the source organization and may not represent a complete record from that organization. * Be aware that medications may not be up to date on this document. Alwaysverify current medications with the patient. dicyclomine (BENTYL) 10 MG capsule Take 10 mg by mouth 3 times daily. Active buPROPion (WELLBUTRIN) 75 MG tablet Take 150 mg by mouth 3 times daily. Active HYDROmorphone (DILAUDID) 4 MG tablet Take 4 mg by mouth 2 times daily Active amitriptyline (ELAVIL) 10 MG tablet Take 10 mg by mouth at bedtime 7 Active albuterol HFA (PROVENTIL;CAROL ANN TOLIN;PROAIR) 108 (90 BASE) MCG/ACT inhaler Inhale 1 (one) puff by mouth 2 times daily Active TRINTELLIX 10 MG tabletIndicati ons:at the same time each day Take 10 mg by mouth once daily Reasons: at the same time each day 7 Active metFORMIN (GLUCOPHAGE) 500 MG tablet Take 500 mg by mouth 2 times daily with morning and evening meal 7 Active L-Methylfolate (DEPLIN) 7.5 MG Take 7.5 mg by mouth once daily Active Prenat w/o S-FK-Gqslola-F A-DHA (PNV-DHA PO) Take by mouth once daily Active butalbital-jake taminophen-caf feine (FIORICET) 50-325-40 MG tablet TAKE 1 TABLET BY MOUTH EVERY 4 HOURS NEEDED FOR HEADACHE 30 tablet 5 8 Active progesterone micronized (PROMETRIUM) 200 MG capsule Take 200 mg by mouth at bedtime 1 8 Active busPIRone (BUSPAR) 10 MG tablet Take 10 mg by mouth 3 times daily 1 8 Active doxylamine (UNISOM) 25 MG tablet Take 0.5 tablets by mouth nightly as needed (nausea) If nausea does not improve can take BID PRN nausea 15 tablet 8 Active Additional Information Patient not taking.Reported on 03/27/2023 Pyridoxine HCl (B-6) 50 MG Take 0.5 tablets by mouth once daily 10 tablet 8 Active Additional Information Patient not taking.Reported on 03/27/2023 zonisamide (ZONEGRAN) 25 MG capsule TAKE 2 CAPSULES BY MOUTH ONCE DAILY 60 capsule 9 Active Additional Information Patient not taking.Reported on 03/27/2023 lisinopril (PRINIVIL; ZESTRIL) 10 MG tablet Take 1 tablet by mouth once daily 30 tablet 2 9 Active meloxicam (MOBIC) 7.5 MG tablet Take 1 tablet by mouth 2 times daily 20 tablet 1 Active ibuprofen (MOTRIN) 400 MG tablet Take 1 (one) tablet by mouth every 6 hours as needed for Pain 20 tablet 1 Active acetaminophen (TYLENOL) 325 MG tablet Take 2 (two) tablets by mouth every 6 hours as needed for Pain Maximum allowable Acetaminophen amount = 4 Grams (4000 mg) / 24 hours. 40 tablet 1 Active ondansetron (Zofran) 4 MG tablet TAKE 1 TABLET BY MOUTH 4 TIMES A DAY NEEDED FOR NAUSEA 3 Active predniSONE (Deltasone) 10 MG tablet Take by mouth every 24 hours 2 Active traMADol (Ultram) 50 MG tablet TAKE 2 TABLETS BY ORAL ROUTE EVERY 6 HOURS NEEDED NOT TO EXCEED 8 TABLETS PER 24HRS 3 Active Active Problems Problem Noted Date Diagnosed [...] = 0.6 oz pur e alcohol) occasionally Comments No Sex and Gender Information Value Date Recorded Sex Assigned at Not on file Legal Sex Female 5:59 AM DISPLAY DIRECTOR Gender Identity Not on file Sexual Orientation Not on file Last Filed Vital Signs Vital Sign Reading Time Taken Comments Blood Pressure 135/83 03/27/2023 3:17 PM CDT Pulse 69 03/27/2023 3:17 PM CDT Temperature 36.5 C (97.7 F) 03/27/2023 3:17 PM CDT Respiratory Rate 18 08/25/2022 7:43 AM DISPLAY DIRECTOR Oxygen Saturation 99% 03/27/2023 3:17 PM CDT Inhaled Oxygen Concentration - - Weight 95.3 kg (210 lb 1.6 oz) 03/27/2023 3:17 P M CDT Height 165 cm (5' 4.96) 03/27/2023 3:17 PM CDT Body Mass Index 35 03/27/2023 3:17 PM CDT Plan of Treatment Health Maintenance Due Date Last Done Comments MEDICARE AWV 12 MONTHS 1985 HEPATITIS C SCREENING 06/01/2003 DTAP/TDAP/TD VACCINES (1 - Tdap) 2004 HEPATITIS B VACCINE (1 of 3 - 19+ 3-dose series) 2004 PAP with HPV 2015 COVID-19 VACCINE (1 - 2023- season) 2024 DEPRESSION SCREENING 08/13/2024 INFLUENZA VACCINE (Season Ended) 2025 09/15/2016, 06/25/2015, 06/11/2015, Additional history exists PAP SMEAR 07/11/2025 07/11/2022 ZOSTER VACCINE (1 of 2) 2035 HIV SCREENING Completed 04/06/2023, 05/24/2021 HIB VACCINE Aged Out No longer eligi ble based on patient's age to complete this topic HPV VACCINE Aged Out No longer eligi ble based on patient's age to complete this topic MENINGOCOCCAL (Group B) VACCINE SHARED DECISION-MAKING Aged Out No longer eligible based on patient's age to complete this topic MENINGOCOCCAL GROUPS A/C/Y/W VACCINE Aged Out No longer eligible based on patient's age to complete this topic PNEUMOCOCCAL VACCINE Aged Out No long er eligible based on patient's age to complete this topic Procedures Procedure Name Priority Date/Time Associated Diagnosis Comments HIV-1 HIV-2 ANTIBODY + HIV P24 AG PANEL Routine 04/06/2023 6:50 AM CDT Diffuse follicle center lymphoma, spleen from Last 3 Months or Most Recently Relevant to Health Maintenance Results * HIV-1 HIV-2 ANTIBODY + HIV P24 AG PANEL (04/06/2023 6:50 AM CDT) HIV Antigen/Antibod y 1 & 2 Non-reacti ve Non-react shanti 04/06/2023 8:08 AM CDT [facility] Comment:No Laboratory eviden ce of HIV infection. 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 09/24/2020 Insurance [place]IC[place] [address] [place] SELF PAY NO INSURANCE Member Subscriber Plan / Payer (Ef fective for All Dates) Name:Vera Parker Member ID:Not on file Relation to Subscriber:Not on file Name:VERA PARKER Subscriber ID:Not on file Address: [address] [place] [address] Payer ID:Not on file Group ID:Not on file Type:Self Pay Address: [place], [place] MEDICARE SELF PAY NO INSURANCE Member Subscriber Plan / Payer (Ef fective for All Dates) Name:Vera Parker Member ID:Not on file Relation to Subscriber:Not on file Name:VERA PARKER Subscriber ID:Not on file Address: [address] [place] [address] Payer ID:Not on file Group ID:Not on file Type:Self Pay Address: [place], [place] MEDICARE Member Subscriber Plan / Payer (Ef fective for All Dates) Name:Vera Parker Member ID:[id number] Relation to Subscriber:Self Name:Vera Parker Subscriber ID:[id number] Payer ID:Not on file Group ID:Not on file Type:Medicare Address: [address] SELF PAY NO INSURANCE Member Subscriber Plan / Payer (Ef fective for All Dates) Name:Vera Parker Member ID:Not on file Relation to Subscriber:Not on file Name:VERA PARKER Subscriber ID:Not on file Address: [address] [place] [address] Payer ID:Not on file Group ID:Not on file Type:Self Pay Address: [place], [place] * Guarantor: VERA PARKER Account Type Relation to Patient Date of Phone Billing Address Personal/Family [address] [place] [address] MEDICARE SELF PAY NO INSURANCE Member Subscriber Plan / Payer (Ef fective for All Dates) Name:Vera Parker Member ID:Not on file Relation to Subscriber:Not on file Name:VERA PARKER Subscriber ID:Not on file Address: [address] [place] [address] Payer ID:Not on file Group ID:Not on file Type:Self Pay Address: [place], [place] * Guarantor: VERA PARKER Account Type Relation to Patient Date of Phone Billing Address Personal/Family [address] [place] [address] MEDICARE Member Subscriber Plan / Payer (Ef fective for All Dates) Name:Vera Parker Member ID:[id number] Relation to Subscriber:Self Name:Vera Parker Subscriber ID:[id number] Payer ID:Not on file Group ID:Not on file Type:Medicare Address: [place] [id number] SELF PAY NO INSURANCE Member Subscriber Plan / Payer (Ef fective for All Dates) Name:Vera Parker Member ID:Not on file Relation to Subscriber:Not on file Name:VERA PARKER Subscriber ID:Not on file Address: [address] [place] [address] Payer ID:Not on file Group ID:Not on file Type:Self Pay Address: [place], [place] * Guarantor: VERA PARKER Account Type Relation to Patient Date of Phone Billing Address Personal/Family [address] [place] [address] MEDICARE SELF PAY NO INSURANCE Member Subscriber Plan / Payer (Ef fective for All Dates) Name:Vera Parker Member ID:Not on file Relation to Subscriber:Not on file Name:VERA PARKER Subscriber ID:Not on file Address: [address] [place] [address] Payer ID:Not on file Group ID:Not on file Type:Self Pay Address: [place], [place] Advance Directives * Full Code (Latest Code Status on File) Date Activated Date Inactivated Comments 08/22/2010 10:42 AM 08/22/2010 11:57 PM * Full Code Date Activated Date Inactivated Comments 02/14/2010 1:50 PM 02/17/2010 5:57 AM * Full Code Date Activated Date Inactivated Comments 02/11/2010 8:28 PM 02/14/2010 1:50 PM Care Teams Boilermaker Fitter Relationship Specialty Start Date End Date Dionicio Colindres DO [address] [place] [id number] PCP - General Family Medicine 01/03/18
--- OUTSIDE RECORDS SUMMARY | 2025-01-28 17:19 | XMS_ITS | Clinical Summary ---
Author Organization [facility] Address [address] [place] [address] Care Team Providers Care Cylinder Die Machine Helper Name Role Phone Daisha Staley [...] 07/25/2023 Assessment & Plan (09/17/2023 2:32 PM APARTMENT LEASING CONSULTANT): Unable to tolerate bupropion, discussed possibly starting chantix vs gum/patches, she plans to try patches. Assessment & Plan (07/25/2023 9:24 AM APARTMENT LEASING CONSULTANT): We discussed the risks of smoking including cardiovascular disease, pulmonary disease, osteoporosis and cancer risks. We talked about reducing risks through smoking cessation. We reviewed approaches to quitting smoking including behavioral changes; nicotine replacement with gums, patches, lozenges; medications such as buproprion or chantix. I also gave resources such as [facility] smoking cessation clinic and 2-235-FCCJ-NOW for additional support. I spent 4 minutes discussing smoking and smoking cessation. Rx for bupropion sent. Chlamydia contact 03/26/2023 Psoriatic arthritis 02/20/2023 Assessment & Plan (07/25/2023 9:24 AM APARTMENT LEASING CONSULTANT): Patient transitioning care to [facility], had been on steroids and leflunomide, stopped on her own, feels her symptoms are stable. Will refer to rheumatology. Assessment & Plan (02/20/2023 1:57 PM CDT): Follows with rheumatology. Stable. History of gestational diabetes 02/20/2023 Lymphadenopathy 02/20/2023 Assessment & Plan (07/25/2023 9:25 AM APARTMENT LEASING CONSULTANT): Has had lymph node dissection in the past, with benign pathology, notes worsening again, especially since off steroids. Will refer to hematology for further evaluation. Assessment & Plan (02/20/2023 1:57 PM CDT): Has had lymph node dissection in the past, with benign pathology. Has follow up with hematology scheduled. Will monitor. Lumbar disc herniation with radiculopathy 2016 Assessment & Plan (09/17/2023 2:31 PM APARTMENT LEASING CONSULTANT): Patient currently taking tramadol daily as well as cyclobenzaprine. Previously had been to pain management, notes continues to have low back pain. Will refer to physiatry for eval, and discussed possibly returning to pain management if needed. PCOS (polycystic ovarian syndrome) 06/11/2007 Resolved Problems Problem Noted Date Diagnosed Date Resolved Date CLOTILDE (generalized anxiety disorder) 09/15/2016 02/20/2023 Bipolar affective disorder, currently depressed, moderate 09/15/2016 02/20/2023 Immunizations Immunization Administration Dates Next Due Influenza, Quadrivalent, Spl it, Preservative Free, Intramuscular 09/15/2016 Influenza, Trivalent, IM (MDV) 06/11/2015,2009 Tdap 11/25/2010 Surgical History Surgery Date Site/Laterality Comments BRAIN SURGERY colloid cyst removal SECTION LYMPH NODE DISSECTION CHOLECYSTECTOMY Medical History Medical History Date Comments Bipolar affective disorder, currently depressed, moderate (HCC) 09/15/2016 CLOTILDE (generalized anxiety disorder) 09/15/2016 Colloid cyst of brain (HCC) Family History Medical History Relation Name Comments Diabetes Father Heart attack Father Prostate cancer Maternal Grandfather Leukemia Maternal Grandmother Hypertension Mother Relation Name Status Comments Father Maternal Grandfather Maternal Grandmother Mother Social History Tobacco Use Types Packs/Day Years Used Date Smoking Tobacco: Every Day Cigarettes 1 12.5 Started: 2012 Smokeless Tobacco: Never Tobacco Cessation:Ready [...] on file Legal Sex Female 4:23 PM APARTMENT LEASING CONSULTANT Gender Identity Not on file Sexual Orientation Not on file Obstetrics History Last Filed Vital Signs Vital Sign Reading Time Taken Comments Blood Pressure 120/80 09/17/2023 9:43 AM APARTMENT LEASING CONSULTANT Pulse 88 09/17/2023 9:43 AM APARTMENT LEASING CONSULTANT Temperature - - Respiratory Rate - - Oxygen Saturation 98% 09/17/2023 9:43 AM APARTMENT LEASING CONSULTANT Inhaled Oxygen Concentration - - Weight 97.5 kg (214 lb 14.4 oz) 09/17/2023 9:43 AM APARTMENT LEASING CONSULTANT Height 167.6 cm (5' 6) 09/17/2023 9:43 AM APARTMENT LEASING CONSULTANT Body Mass Index 34.69 09/17/2023 9:43 AM APARTMENT LEASING CONSULTANT Plan of Treatment Health Maintenance Due Date Last Done Comments Cervical Cancer Screening 1985 Hepatitis C Screening 1985 Varicella Vaccines (1 of 2 - 13+ 2-dose series) 1998 Hepatitis B Screening 2003 Pneumococcal vaccine <65 (1 of 2 - PCV) 2004 Zoster Vaccine (1 of 2) 2004 DTaP/Tdap/Td Vaccine (2 - Td or Tdap) 11/25/2020 11/25/2010 Depression Screening 02/21/2024 02/20/2023 Regular Well Visit/Exam 18-64 02/21/2024 02/20/2023 Influenza Vaccine (Season Ended) 2025 09/15/2016, 06/11/2015, 07/13/2010 HPV Vaccines Aged Out No longer eligi ble based on patient's age to complete this topic Insurance MEDICARE MEDICARE [place] [facility] [employer] Care Teams Cylinder Die Machine Helper Relationship Specialty Start Date End Date Daisha Staley MD [facility] Brett MON [address] [place] [address] PCP - General Internal Medicine 02/06/23
--- OUTSIDE RECORDS SUMMARY | 2025-01-28 17:19 | XMS_ITS | Encounter Summary ---
Author Organization [facility] Address [address] [place] [address] Care Team Providers Care Assistance Coordinator Name Role Phone Meng King MD Primary Care Provider [phone] Encounter Details Date Type Department Care Team (Late st Contact Info) Description 03/13/2009 Outpatient Historical [facility] [place], Authorized P NO ADDRESS ON FILE Landon Yadav MD [facility] [place], [place] [id number] Threatened , Antepartum; Tobacco Use Disorder Social History Tobacco Use Types Packs/Day Years Used Date Smoking Tobacco: Never Assessed Comments Unknown Sex and Gender Information Value Date Recorded Sex Assigned at Not on file Legal Sex Female 4:09 AM HOUSING DEVELOPMENT SPECIALIST Gender Identity Not on file Sexual [...] PM CDT) HISTORY CHECK No Historical ABO/Rh [facility] SPECIMEN LIFE 3 days from drawdate [facility] ABO/RH TYPE B Positive [facility] Blood specimen (specimen) 03/13/2009 6:32 PM CDT Landon Yadav MD BLOOD BANK ORDERABLES Edited INTERFACE SYSTEM Refer to clinic/hospital department [facility] CLIA# [id number] [address] [facility] [place], [place] [address] * (ABNORMAL) CBC WITH DIFFERENTIAL (03/13/2009 6:30 PM CDT) Pathologist [facility] PLATELETS 301 140 - 350 K/uL [facility] HEMOGLOBIN 15.7(H) 11.8 - 14.8 g/dL [facility] RDW 13.5 11.5 - 14.5 % [facility] WBC 11.9(H) 4.0 - 9.8 K/uL [facility] MCH 29.7 27.2 - 32.6 pg [facility] MPV 8.9(L) 9.3 - 12.4 fL [facility] HEMATOCRIT 44.6(H) 35.5 - 44.0 % [facility] RDW-STDEV 41.1 37.1 - 48.7 fL [facility] RBC 5.28(H) 3.90 - 4.90 M/uL [facility] MCHC 35.2 31.5 - 35.5 % [facility] MCV 84.5 82.0 - 99.0 fL [facility] EOSINOPHILS 1 0 - 7 % [facility] EOSINOPHIL ABSOLUTE 0.17 0.00 - 0.70 K/uL [facility] LYMPHOCYTES 31 16 - 45 % [facility] LYMPHOCYTE ABSOLUTE 3.69 0.70 - 4.50 K/uL [facility] BASOPHILS 0 0 - 2 % [facility] BASOPHILS ABSOLUTE 0.03 0.00 - 0.20 K/uL [facility] MONOCYTES 6 3 - 13 % [facility] MONOCYTE ABSOLUTE 0.66 0.10 - 1.30 K/uL [facility] NEUTROPHILS 62 45 - 70 % [facility] NEUTROPHIL ABSOLUTE 7.36(H) 1.90 - 7.00 K/uL [facility] Blood specimen (specimen) 03/13/2009 6:30 PM CDT 03/13/2009 6:40 PM CDT Landon Yadav MD HEMATOLOGY ORDERABLES Edited [facility] CLIA# [id number] [address] [facility] [place] [address] * (ABNORMAL) HCG QUANTITATIVE, BLOOD (03/13/2009 6:30 PM CDT) HCG QUANT, BLOOD 39(H) 0 - 5 mIU/mL [facility] Comment: Result of 5 - 25 [...] us Landon Yadav MD CHEMISTRY ORDERABLES Edited [facility] CLIA# [id number] [address] [facility] [place] [address] documented in this encounter Visit Diagnoses Diagnosis Threatened , antepartum Tobacco use disorder documented in this encounter Additional Health Concerns Infection Onset Date Last Indicated Resolved Time COVID-19 08/24/2020 08/24/2020 09/23/2020 1:16 AM HOUSING DEVELOPMENT SPECIALIST documented as of this encounter Care Teams Assistance Coordinator Relationship Specialty Start Date End Date Meng King MD [address] [place] [address] PCP - General Family Practice 11/15/23 documented as of this encounter
--- OUTSIDE RECORDS SUMMARY | 2025-01-28 17:19 | XMS_ITS | Referral Summary ---
Author Organization [facility] Address [address] [place] [address] Care Team Providers Care Personal Shopper Name Role Phone Daisha Staley MD Primary [...] 07/25/2023 Assessment & Plan (09/17/2023 2:32 PM INSTRUCTIONAL TECHNOLOGY INSTRUCTOR): Unable to tolerate bupropion, discussed possibly starting chantix vs gum/patches, she plans to try patches. Assessment & Plan (07/25/2023 9:24 AM INSTRUCTIONAL TECHNOLOGY INSTRUCTOR): We discussed the risks of smoking including cardiovascular disease, pulmonary disease, osteoporosis and cancer risks. We talked about reducing risks through smoking cessation. We reviewed approaches to quitting smoking including behavioral changes; nicotine replacement with gums, patches, lozenges; medications such as buproprion or chantix. I also gave resources such as [facility] smoking cessation clinic and 8-133-MRAP-NOW for additional support. I spent 4 minutes discussing smoking and smoking cessation. Rx for bupropion sent. Chlamydia contact 03/26/2023 Psoriatic arthritis 02/20/2023 Assessment & Plan (07/25/2023 9:24 AM INSTRUCTIONAL TECHNOLOGY INSTRUCTOR): Patient transitioning care to [facility], had been on steroids and leflunomide, stopped on her own, feels her symptoms are stable. Will refer to rheumatology. Assessment & Plan (02/20/2023 1:57 PM CDT): Follows with rheumatology. Stable. History of gestational diabetes 02/20/2023 Lymphadenopathy 02/20/2023 Assessment & Plan (07/25/2023 9:25 AM INSTRUCTIONAL TECHNOLOGY INSTRUCTOR): Has had lymph node dissection in the past, with benign pathology, notes worsening again, especially since off steroids. Will refer to hematology for further evaluation. Assessment & Plan (02/20/2023 1:57 PM CDT): Has had lymph node dissection in the past, with benign pathology. Has follow up with hematology scheduled. Will monitor. Lumbar disc herniation with radiculopathy 2016 Assessment & Plan (09/17/2023 2:31 PM INSTRUCTIONAL TECHNOLOGY INSTRUCTOR): Patient currently taking tramadol daily as well [...] on file Legal Sex Female 4:23 PM INSTRUCTIONAL TECHNOLOGY INSTRUCTOR Gender Identity Not on file Sexual Orientation Not on file Last Filed Vital Signs Vital Sign Reading Time Taken Comments Blood Pressure 120/80 09/17/2023 9:43 AM INSTRUCTIONAL TECHNOLOGY INSTRUCTOR Pulse 88 09/17/2023 9:43 AM INSTRUCTIONAL TECHNOLOGY INSTRUCTOR Temperature - - Respiratory Rate - - Oxygen Saturation 98% 09/17/2023 9:43 AM INSTRUCTIONAL TECHNOLOGY INSTRUCTOR Inhaled Oxygen Concentration - - Weight 97.5 kg (214 lb 14.4 oz) 09/17/2023 9:43 AM INSTRUCTIONAL TECHNOLOGY INSTRUCTOR Height 167.6 cm (5' 6) 09/17/2023 9:43 AM INSTRUCTIONAL TECHNOLOGY INSTRUCTOR Body Mass Index 34.69 09/17/2023 9:43 AM INSTRUCTIONAL TECHNOLOGY INSTRUCTOR Plan of Treatment Not on file Insurance MEDICARE MEDICARE [facility] Care Teams Personal Shopper Relationship Specialty Start Date End Date Daisha Staley MD [address] [place] [address] [address] [address] PCP - General Internal Medicine 02/06/23
--- OUTSIDE RECORDS SUMMARY | 2025-01-28 17:19 | XMS_ITS | Encounter Summary ---
Author Organization [facility] Address [address] [place] [address] Care Team Providers Care Chemical Equipment Repairer Name Role Phone Meng King MD Primary Care Provider [phone] Encounter Details Date Type Department Care Team (Latest Contact Info) Description 10/24/2008 Outpatient Historical [facility] [place] [address] [place] [id number] Acute Upper Respiratory Infections of Unspecified Site; Bronchitis, not Specified as Acute or Chronic; Tobacco Use Disorder; Pure Hypercholesterolemia Social History Tobacco Use Types Packs/Day Years Used Date Smoking Tobacco: Never Assessed Comments Unknown Sex and Gender Information Value Date Recorded Sex Assigned at Not on file Legal Sex Female 4:09 AM BUSINESS OPERATIONS MANAGER Gender Identity Not on file Sexual [...] Time COVID-19 08/24/2020 08/24/2020 09/23/2020 1:16 AM BUSINESS OPERATIONS MANAGER documented as of this encounter Care Teams Chemical Equipment Repairer Relationship Specialty Start Date End Date Meng King MD [address] [place] [phone] PCP - General Family Practice 11/15/23 documented as of this encounter
--- OUTSIDE RECORDS SUMMARY | 2025-01-28 17:19 | XMS_ITS | Encounter Summary ---
Author Organization [employer] Address [address] [place] [address] Care Team Providers Care Amf Mechanic Name Role Phone Meng King MD Primary Care Provider [phone] Encounter Details Date Type Department Care Team (Late st Contact Info) Description 10/24/2004 Outpatient Historical [facility] Landon Yadav MD [facility] [place] [address] Er, Authorized P NO ADDRESS ON FILE LOWER LEG INJURY NOS (Primary Dx) Social History Tobacco Use Types Packs/Day Years Used Date Smoking Tobacco: Never Assessed Comments Unknown Sex and Gender Information Value Date Recorded Sex Assigned at Not on file Legal Sex Female 4:09 AM COMMUNICATIONS REPRESENTATIVE Gender Identity Not on file Sexual Orientation Not on file documented as of this encounter Plan of Treatment Not on file documented as of this encounter Visit Diagnoses Diagnosis Injury, other and unspecified, knee, leg, ankle, and foot- Primary documented in this encounter Additional Health Concerns Infection Onset Date Last Indicated Resolved Time COVID-19 08/24/2020 08/24/2020 09/23/2020 1:16 AM COMMUNICATIONS REPRESENTATIVE documented as of this encounter Care Teams Amf Mechanic Relationship Specialty Start Date End Date Meng King MD [address] [place] [address] PCP - General Family Practice 11/15/23 documented as of this encounter
--- OUTSIDE RECORDS SUMMARY | 2025-01-28 17:19 | XMS_ITS | Clinical Summary ---
Author Organization [facility] Address [address] [place] [address] Phone Care Team Providers Care Automation Technician Name Role Phone Isaías Ira JOHNATHAN, [place] Primary Care Provider + Suly Alfonso MD Unavailable [phone] 1 Medications cyclobenzaprine (FLEXERIL) 5 MG Tablet Take 10 mg by mouth daily. 10/15/2023 Active promethazine (PHENERGAN) 25 MG Tablet Take 25 mg by mouth every 6 hours as needed. Active Ferrous Sulfate (Iron) 325 (65 Fe) MG Tablet Take 325 mg by mouth daily. TAKING 2 PILLS ONCE A DAY Active naproxen 500 MG Tablet Delayed Response Take 500 mg by mouth daily. Active Rizatriptan Benzoate 10 MG Tablet Take 10 mg by mouth once as needed. May repeat in 2 hours in needed Active FIBER GUMMIES PO Take 2 g by mouth daily. Active Active Problems Problem Noted Date Diagnosed Date Generalized abdominal pain 12/11/2024 Arthritis 11/05/2024 Heart murmur 11/05/2024 Hemorrhoids 11/05/2024 Migraine 11/05/2024 Obesity 11/05/2024 Palpitations 11/05/2024 Iron deficiency 11/05/2024 Brain tumor 11/05/2024 Enlarged lymph nodes 11/05/2024 Family history of polycythemia 11/05/2024 Axillary lymphadenopathy 11/05/2024 Encounters Date Type Department Care Team Description 12/27/2024 7:38 AM CDT - 12/27/2024 11:59 PM CDT [facility] [place] [address] Raffy Mcdaniel MD Discharge Disposition: Discharged to home or Selfcare 12/26/2024 Travel 12/11/2024 1:40 PM CDT [facility] [address] [place] [address] Raffy Mcdaniel MD Family history of polycythemia (Primary Dx); Iron deficiency; Generalized abdominal pain; Lymphadenopathy of head and neck Discharge Disposition: Discharged to home or Selfcare 12/11/2024 Travel 12/05/2024 1:02 PM CDT - 12/05/2024 11:59 PM CDT [facility] [address] [place] [address] Provider, Not On File Discharge Disposition: Discharged to home or Selfcare 12/02/2024 7:48 AM CDT - 12/02/2024 11:59 PM CDT [facility] 1 [facility] [place] [address] Raffy Mcdaniel MD Discharge Disposition: Discharged to home or Selfcare 12/01/2024 Travel 11/20/2024 8:00 AM CDT [facility] [address] [place] [address] Raffy Mcdaniel MD Polycythemia Discharge Disposition: Discharged to home or Selfcare 11/20/2024 Travel 11/19/2024 Travel 11/19/2024 [facility]phone [facility] [address] [place] [address] Raffy Mcdaniel MD 11/05/2024 3:00 PM CDT Lab [facility] Oncology Services [address] [place] [address] Raffy Mcdaniel MD Iron deficiency; Family history of polycythemia; Enlarged lymph nodes Discharge Disposition: Discharged to home or Selfcare 11/05/2024 1:20 PM CDT [facility] [address] [place] [address] Raffy Mcdaniel MD Iron deficiency (Primary Dx); Family history of polycythemia; Enlarged lymph nodes; Axillary lymphadenopathy Discharge Disposition: Discharged to home or Selfcare 11/05/2024 Travel from Last 3 Months Family History Medical History Relation Name Comments Heart Disease Father Hypertension Father Cancer Paternal Grandfather Diabetes Paternal Grandfather Relation Name Status Comments Father Paternal Grandfather Social History Tobacco Use Types Packs/Day Years Used Date Smoking Tobacco: Former Cigarettes 1 9 2018 Smokeless Tobacco: Never Tobacco Cessation:Counseling Given: Not Answered Alcohol Use Standard Drinks/Week Comments Never 0 (1 standard drink = 0.6 oz pur e alcohol) Comments No Sex and Gender Information Value Date Recorded Sex Assigned at Not on file 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 Gender Identity Not on file Sexual Orientation Not on file Last Filed Vital Signs Vital Sign Reading Time Taken Comments Blood Pressure 141/85 12/11/2024 1:38 PM CDT Pulse 84 12/11/2024 1:38 PM CDT Temperature 37.1 C (98.7 F) 12/11/2024 1:38 PM CDT Respiratory Rate 18 12/11/2024 1:38 PM CDT Oxygen Saturation 97% 12/11/2024 1:38 PM CDT Inhaled Oxygen Concentration - - Weight 112.9 kg (249 lb) 12/11/2024 1:38 PM CDT Height 167.6 cm (5' 6) 12/11/2024 1:38 PM CDT Body Mass Index 40.19 12/11/2024 1:38 PM CDT Plan of Treatment Upcoming Encounters Date Type Department Care Team (Late st Contact Info) Description 02/03/2025 3:00 PM CDT Office Visit [facility] [address] [place] [address] Krystyna Hernandes, ADJUSTER ARBITRATOR, SUPERVISOR SLATE [employer]PLITTING [address] [place] [address] Raffy Mcdaniel MD [address] [place] [address] Discharge Disposition: Discharged to home or Selfcare 02/03/2025 3:20 PM CDT Lab [facility] [address] [place] [address] Raffy Mcdaniel MD [address] [place] [address] Discharge Disposition: Discharged to home or Selfcare Health Maintenance Due Date Last Done Comments Hepatitis C Virus (HCV) Screening 1985 Human Papillomavirus (HPV) Immunization (1 - 3-dose series) 2000 Hepatitis B Immunization (1 of 3 - 19+ 3-dose series) 2004 Pap Smear 2006 Cervical Cancer Screening (CCS) 2015 HPV/Cotest 2015 SARS-COV-2 Immunization ( season) 2024 Influenza Immunization (Seas on Ended) 2025 09/15/2016, 06/11/2015, 07/13/2010 Respiratory Syncytial Virus (RSV) Immunization (Adult) (1 - 1-dose 75+ series) 2060 TdaP Immunization Completed 11/25/2010 Meningococcal Immunization (ACWY) Aged Out No longer eligible b ased on patient's age to complete this topic Pneumococcal Immunization Combined Aged Out No longer eligible b ased on patient's age to complete this topic Rotavirus Immunization Aged Out No lo nger eligible based on patient's age to complete this topic Procedures Procedure Name Priority Date/Time Associated Diagnosis Comments US SOFT TISSUE HEAD AND NECK Routine 12/27/2024 7:50 AM CDT Lymphadenopathy of head and neck PET REFERENCE IMAGES FOR IMPORT Routine 12/05/2024 1:[address] CHEST ABDOMEN AND PELVIS W CONTRAST Routine 12/02/2024 8:29 AM CDT Enlarged lymph nodes Axillary lymphadenopathy POCT CREATININE Routine 12/02/2024 8:11 AM CDT JAK2 V617F MUTATION DETECTION, BLANCH JAK2B Routine 11/20/2024 8:03 AM CDT Polycythemia CBC WITH AUTO DIFFERENTIAL Routine 11/05/2024 3:15 PM CDT Iron deficiency Family history of polycythemia Enlarged lymph nodes RHEUMATOID FACTOR (RFQT) QUANT Routine 11/05/2024 3:15 PM CDT Iron deficiency Family history of polycythemia Enlarged lymph nodes ERYTHROCYTE SEDIMENTATION RATE (ESR) Routine 11/05/2024 3:15 PM CDT Iron deficiency Family history of polycythemia Enlarged lymph nodes ROSALINDA SCREEN MULTIPLEX W/REFLEX HEAVEN Routine 11/05/2024 3:15 PM CDT Iron deficiency Family history of polycythemia Enlarged lymph nodes VITAMIN B12 Routine 11/05/2024 3:15 PM CDT Iron deficiency Family history of polycythemia Enlarged lymph nodes ERYTHROPOIETIN, SERUM, EPO Routine 11/05/2024 3:15 PM CDT Iron deficiency Family history of polycythemia Enlarged lymph nodes RETICULOCYTE COUNT (RETIC) Routine 11/05/2024 3:15 PM CDT Iron deficiency Family history of polycythemia Enlarged lymph nodes IRON,TRANSFERN,CALC.T IBC,%SAT Routine 11/05/2024 3:15 PM CDT Iron deficiency Family history of polycythemia Enlarged lymph nodes FERRITIN Routine 11/05/2024 3:15 PM CDT Iron deficiency Family history of polycythemia Enlarged lymph nodes COMPLETE BLOOD COUNT (CBC) WITH DIFF Routine 11/05/2024 3:15 PM CDT Iron deficiency Family history of polycythemia Enlarged lymph nodes from Last 3 Months Results * US SOFT TISSUE HEAD AND NECK (12/27/2024 7:50 AM CDT) Anatomical Region Laterality Modality BODY N/A Ultrasound 12/29/2024 10:3 9 AM CDT Impressions 12/29/2024 10:41 AM CDT IMPRESSION: As above. Narrative 12/29/2024 10:41 AM CDT EXAM DESCRIPTION: US SOFT TISSUE HEAD AND NECK REASON FOR STUDY: right neck lymphadenopathy, palpable area right neck times years. TECHNIQUE: A Dynamic assessment was performed of the right neck by the youth pastor, with selected grayscale and color Doppler images acquired and recorded in PACS. COMPARISON: None available. FINDINGS: Targeted sonographic grayscale and color Doppler assessment in the area of patient's palpable concern labeled as right neck without sonographic evidence for a focal fluid collection or adenopathy. The need for further evaluation with contrast-enhanced CT after placement of a skin marker as clinically indicated. THIS IS AN ELECTRONICALLY VERIFIED FINAL REPORT 12/29/2024 10:39 AM - Electronically signed by Justin Brush D.O. AP: AP Report ID: [id number] Reading Location: [place] [address] Procedure Note Justin Brush DO - 12/29/2024 EXAM DESCRIPTION: US SOFT TISSUE HEAD AND NECK REASON FOR STUDY: right neck lymphadenopathy, palpable area right neck times years. TECHNIQUE: A Dynamic assessment was performed of the right neck by the youth pastor, with selected grayscale and color Doppler images acquired and recorded in PACS. COMPARISON: None available. FINDINGS: Targeted sonographic grayscale and color Doppler assessment in the area of patient's palpable concern labeled as right neck without sonographic evidence for a focal fluid collection or adenopathy. The need for further evaluation with contrast-enhanced CT after placement of a skin marker as clinically indicated. THIS IS AN ELECTRONICALLY VERIFIED FINAL REPORT 12/29/2024 10:39 AM - Electronically signed by Justin Brush D.O. AP: AP Report ID: [id number] Reading Location: [id number] IMPRESSION: As above. us Raffy Mcdaniel MD IMG US ORDERABLES Final Result * PET REFERENCE IMAGES FOR IMPORT (12/05/2024 1:02 PM CDT) us Not On File Provider IMG NM ORDERABLES Final Res ult * CT CHEST ABDOMEN AND PELVIS W CONTRAST (12/02/2024 8:29 AM CDT) Anatomical Region Laterality Modality Chest, Abdomen, Pelvis N/A Computed Tomography 12/10/2024 11:5 4 AM CDT Impressions 12/10/2024 11:56 AM CDT IMPRESSION: No lymphadenopathy within the chest, abdomen, or pelvis. No other significant findings. Narrative 12/10/2024 11:56 AM CDT EXAM DESCRIPTION: CT CHEST ABDOMEN AND PELVIS W CONTRAST REASON FOR STUDY: Painful right axillary lymphadenopathy and right neck lymphadenopathy x 1 year with fatigue and chronic abdominal discomfort. Hx of DM, PCOS, and brain tumor with craniotomy. Former smoker. TECHNIQUE: CT scan of the chest, abdomen, and pelvis performed with intravenous and without oral contrast using helical scanning technique with dynamic intravenous contrast injection. Reconstructed coronal and sagittal MPR images reviewed. All images stored on PACS. Automated exposure control was used as a dose optimization technique for this examination. CONTRAST TYPE/DOSE: 100mL of IOPAMIDOL 76 % IV SOLN injected via Intravenous COMPARISON: PET-CT 04/06/2023 FINDINGS: CHEST LUNGS: The central airways are clear. No evidence of pneumonia. No suspicious pulmonary nodules. PLEURA: No effusion. No pneumothorax. MEDIASTINUM/SANDRA: No identified masses or abnormal nodes. HEART: Heart size is normal with no pericardial effusion. VASCULATURE CHEST: No thoracic aortic aneurysm or dissection. AXILLA: No adenopathy. CHEST WALL: No masses. No subcutaneous air. HARDWARE/LINES/TUBES: None. MUSCULOSKELETAL CHEST: No significant abnormality. ABDOMEN/PELVIS LIVER: Normal size. No identified cystic or solid masses. GALLBLADDER: Surgically absent. BILE DUCTS: No intrahepatic or extrahepatic ductal dilatation. SPLEEN: Normal size. No focal lesions. PANCREAS: No identified cystic or solid masses. No significant calcifications. No adjacent inflammation or peripancreatic fluid collections. Pancreatic duct not dilated. ADRENALS: Normal. KIDNEYS/URINARY TRACT: No identified significant cystic or solid masses. No visualized stones. No hydronephrosis or hydroureter. Symmetric enhancement. Urinary bladder is unremarkable. GI: No dilated bowel loops. No obvious wall thickening. Normal appendix. No significant diverticular disease. PERITONEUM: No ascites or free air. RETROPERITONEUM: No mass or adenopathy. REPRODUCTIVE: The uterus is unremarkable. No adnexal mass. VASCULATURE ABDOMEN: No abdominal aortic aneurysm. MUSCULOSKELETAL ABDOMEN PELVIS: No acute finding. OTHER: No significant abnormality. THIS IS AN ELECTRONICALLY VERIFIED FINAL REPORT 12/10/2024 11:54 AM - Electronically signed by Tristan Arias M.D. KR: MIO Report ID: [id number] Reading Location: [id number] Procedure Note Tristan Arias MD - 12/10/2024 EXAM DESCRIPTION: CT CHEST ABDOMEN AND PELVIS W CONTRAST REASON FOR STUDY: Painful right axillary lymphadenopathy and right neck lymphadenopathy x 1 year with fatigue and chronic abdominal discomfort. Hx of DM, PCOS, and brain tumor with craniotomy. Former smoker. TECHNIQUE: CT scan of the chest, abdomen, and pelvis performed with intravenous and without oral contrast using helical scanning technique with dynamic intravenous contrast injection. Reconstructed coronal and sagittal MPR images reviewed. All images stored on PACS. Automated exposure control was used as a dose optimization technique for this examination. CONTRAST TYPE/DOSE: 100mL of IOPAMIDOL 76 % IV SOLN injected via Intravenous COMPARISON: PET-CT 04/06/2023 FINDINGS: CHEST LUNGS: The central airways are clear. No evidence of pneumonia. No suspicious pulmonary nodules. PLEURA: No effusion. No pneumothorax. MEDIASTINUM/SANDRA: No identified masses or abnormal nodes. HEART: Heart size is normal with no pericardial effusion. VASCULATURE CHEST: No thoracic aortic aneurysm or dissection. AXILLA: No adenopathy. CHEST WALL: No masses. No subcutaneous air. HARDWARE/LINES/TUBES: None. MUSCULOSKELETAL CHEST: No significant abnormality. ABDOMEN/PELVIS LIVER: Normal size. No identified cystic or solid masses. GALLBLADDER: Surgically absent. BILE DUCTS: No intrahepatic or extrahepatic ductal dilatation. SPLEEN: Normal size. No focal lesions. PANCREAS: No identified cystic or solid masses. No significant calcifications. No adjacent inflammation or peripancreatic fluid collections. Pancreatic duct not dilated. ADRENALS: Normal. KIDNEYS/URINARY TRACT: No identified significant cystic or solid masses. No visualized stones. No hydronephrosis or hydroureter. Symmetric enhancement. Urinary bladder is unremarkable. GI: No dilated bowel loops. No obvious wall thickening. Normal appendix. No significant diverticular disease. PERITONEUM: No ascites or free air. RETROPERITONEUM: No mass or adenopathy. REPRODUCTIVE: The uterus is unremarkable. No adnexal mass. VASCULATURE ABDOMEN: No abdominal aortic aneurysm. MUSCULOSKELETAL ABDOMEN PELVIS: No acute finding. OTHER: No significant abnormality. THIS IS AN ELECTRONICALLY VERIFIED FINAL REPORT 12/10/2024 11:54 AM - Electronically signed by Tristan Arias M.D. KR: MIO Report ID: [id number] Reading Location: [id number] IMPRESSION: No lymphadenopathy within the chest, abdomen, or pelvis. No other significant findings. Raffy Mcdaniel MD IMG CT ORDERABLES Final Result * POCT Creatinine (12/02/2024 8:11 AM CDT) CREATININE - POCT 0.7 0.6 - 1.3 mg/dL 12/02/2024 8:15 AM CDT [facility] Blood 12/02/2024 8:11 AM CDT 12/02/2024 8:15 AM CDT None Provider POINT OF CARE TESTING Final [facility] [place] [address] * JAK2 V617F MUTATION DETECTION, BLANCH JAK2B (11/20/2024 8:03 AM CDT) JAK2 RESULT see interpretation 5 5:59 PM CDT [facility] JAK2 V617F MUTATION DETECTION SEE NOTE 5 5:59 PM CDT [facility] Comment: Peripheral blood, JAK2 V617F mutation analysis: Negative for JAK2 V617F. A negative [id number] test result does not exclude the possibility of a myeloproliferative neoplasm (MPN). If clinical suspicion is high for primary myelofibrosis (PMF) or essential thrombocythemia (ET), consider additional testing for CALR with reflex to MPL (test ID: [id number]). If clinical suspicion is high for polycythemia vera, the test JAK2 Exon 12 and Other Non-V617F Mutational Detection (test ID: JAKXB or JAKXM) could be considered. Clinicopathologic correlation is recommended for a definitive diagnosis. Signing Pathologist: Rudi Mahmood M.D. ADDITIONAL INFORMATION Method summary - JAK2 V617F analysis: Quantitative, allele-specific polymerase chain reaction (PCR) assay was performed using extracted genomic DNA to evaluate for the point mutation causing JAK2 V617F. The analytic sensitivity of this assay has been determined at 0.06% (see [facility] Interpretive Handbook for method details). This test was developed and its performance characteristics determined by [facility] in a manner consistent with CLIA requirements. This test has not been cleared or approved by the U.S. Food and Drug Administration. Test Performed by: [place] [address] Spring Inspector: Bautista Sesay Ph.D.; CLIA# [id number] Blood Venipuncture / Unknown 11/20/2024 8:03 AM CDT 11/20/2024 8:03 AM CDT us Raffy Mcdaniel MD LAB SEND OUT GENETIC Fin al Result [facility] * (ABNORMAL) IRON,TRANSFERN,CALC.TIBC,%SAT (11/05/2024 3:15 PM CDT) IRON 41 25 - 156 mcg/dL 11/05/2024 4:12 PM CDT [facility] TRANSFERRIN 323 180 - 382 mg/dL 11/05/2024 4:12 PM CDT [facility] TIBC, CALCULATED 404 265 - 497 mcg/dL 11/05/2024 4:12 PM CDT [facility] % SATURATION * 10(L) 15 - 62 % 11/05/2024 4:12 PM CDT [facility] Blood Venipuncture / Unknown 11/05/2024 3:15 PM CDT 11/05/2024 3:15 PM CDT Raffy Mcdaniel MD CHEMISTRY ORDERABLES Fin al Result Performing Organization Address City/[facility]/ZIP Co de Phone Number [facility] [address] [place] [address] * (ABNORMAL) ERYTHROPOIETIN, SERUM, EPO (11/05/2024 3:15 PM CDT) Pathologist [facility] ERYTHROPOIETIN, SERUM 23.0(H) 2.6 - 18.5 mIU/mL 11/08/2024 2:10 PM CDT [facility] Comment: Test Performed by: [place] [address] Spring Inspector: Bautista Sesay Ph.D.; CLIA# [id number] Blood Venipuncture / Unknown 11/05/2024 3:15 PM CDT 11/05/2024 3:15 PM CDT Raffy Mcdaniel MD LAB SEND OUTS Final Re sult [facility] * (ABNORMAL) CBC WITH AUTO DIFFERENTIAL (11/05/2024 3:15 PM CDT) Pathologist [facility] WBC 8.92 4.00 - 12.00 10(3)/mcL 11/05/2024 3:53 PM CDT [facility] RBC 5.17 3.80 - 5.30 10(6)/[facility] 11/05/2024 3:53 PM CDT [facility] HEMOGLOBIN (HGB) 13.4 12.0 - 15.8 g/dL 11/05/2024 3:53 PM CDT [facility] HEMATOCRIT (HCT) 41.7 36.0 - 47.0 % 11/05/2024 3:53 PM CDT [facility] MCV 80.7(L) 82.0 - 96.0 fL 11/05/2024 3:53 PM CDT [facility] MCH 25.9(L) 26.0 - 34.0 pg 11/05/2024 3:53 PM CDT [facility] MCHC 32.1 31.0 - 36.0 g/dL 11/05/2024 3:53 PM CDT [facility] PLATELET COUNT 338 140 - 440 10(3)/[facility] 11/05/2024 3:53 PM CDT [facility] RDW 12.8 11.8 - 15.5 % 11/05/2024 3:53 PM CDT [facility] MPV 8.7(L) 9.7 - 12.4 fL 11/05/2024 3:53 PM CDT [facility] NEUTROPHILS 67.2 47.0 - 73.0 % 11/05/2024 3:53 PM CDT [facility] LYMPHOCYTES 25.9 18.0 - 42.0 % 11/05/2024 3:53 PM CDT [facility] MONOCYTES 5.6 4.0 - 12.0 % 11/05/2024 3:53 PM CDT [facility] EOSINOPHILS 0.9 0.0 - 5.0 % 11/05/2024 3:53 PM CDT [facility] BASOPHILS 0.4 0.0 - 1.0 % 11/05/2024 3:53 PM CDT [facility] ABSOLUTE NEUTROPHILS 5.99 1.60 - 7.70 10(3)/mcL 11/05/2024 3:53 PM CDT [facility] ABSOLUTE LYMPHOCYTES 2.31 1.30 - 3.20 10(3)/mcL 11/05/2024 3:53 PM CDT [facility] ABSOLUTE MONOCYTES 0.50 0.20 - 1.00 10(3)/[facility] 11/05/2024 3:53 PM CDT [facility] ABSOLUTE EOSINOPHIL 0.08 0.00 - 0.40 10(3)/mcL 11/05/2024 3:53 PM CDT [facility] ABSOLUTE BASOPHILS 0.04 0.00 - 0.10 10(3)/[facility] 11/05/2024 3:53 PM CDT [facility] NRBC PER 100 WBC 0 11/06/19 3:53 PM CDT [facility] Blood Venipuncture / Unknown 11/05/2024 3:15 PM CDT 11/05/2024 3:15 PM CDT Raffy Mcdaniel MD HEMATOLOGY ORDERABLES Fi nal Result [facility] [place] [address] * (ABNORMAL) VITAMIN B12 (11/05/2024 3:15 PM CDT) VITAMIN B12 856(H) 213 - 816 pg/mL 11/05/2024 4:42 PM CDT [facility] Blood Venipuncture / Unknown 11/05/2024 3:15 PM CDT 11/05/2024 3:15 PM CDT Raffy Mcdaniel MD CHEMISTRY ORDERABLES Fin al Result [facility] [place] [address] * (ABNORMAL) ERYTHROCYTE SEDIMENTATION RATE (ESR) (11/05/2024 3:15 PM CDT) Pathologist [facility] ESR (SED RATE, ERYTHROCYTE SEDIMENTATION RATE) 35(H) <20 mm/h 11/05/2024 4:01 PM CDT [facility] Comment: Patients presenting with increased level of fibrinogen, gamma globulins, or abnormally shaped RBCs could affect the results for the erythrocyte sedimentation rate (ESR). Results should be clinically correlated. Blood Venipuncture / Unknown 11/05/2024 3:15 PM CDT 11/05/2024 3:15 PM CDT Raffy Mcdaniel MD HEMATOLOGY ORDERABLES Fi nal Result Performing Organization Address [facility] Co de Phone Number [facility] [address] [place] [address] * RHEUMATOID FACTOR (RFQT) QUANT (11/05/2024 3:15 PM CDT) [facility] RHEUMATOID FACTOR QT 20 <30 IU/mL 11/05/2024 4:15 PM CDT [facility] Blood Venipuncture / Unknown 11/05/2024 3:15 PM CDT 11/05/2024 3:15 PM CDT Narrative [facility] - 11/05/2024 4:15 PM CDT RHEUMATOID FACTORS CAN BE FOUND IN RHEUMATOID ARTHRITIS, SYPHILIS, VIRAL INFECTIONS, LEPROSY, CHRONIC LIVER DISEASE, NEOPLASMS, AND OTHER INFLAMMATORY CONDITIONS. RF PREVALENCE ALSO INCREASES WITH AGE. THUS A POSITIVE TEST IS NOT RESTRICTED TO RA. CONVERSELY, A NEGATIVE TEST DOES NOT RULE OUT RA, RHEUMATOID FACTORS ARE NOT DETECTABLE IN 10% OF ADULTS WITH THE DISEASE. Raffy Mcdaniel MD CHEMISTRY ORDERABLES Fin al Result Performing Organization Address [facility] Co de Phone Number [facility] [address] [place] [address] * RETICULOCYTE COUNT (RETIC) (11/05/2024 3:15 PM CDT) Pathologist [facility] RETICULOCYTES 1.3 0.5 - 2.0 % 11/05/2024 3:53 PM CDT [facility] Blood Venipuncture / Unknown 11/05/2024 3:15 PM CDT 11/05/2024 3:15 PM CDT Raffy Mcdaniel MD HEMATOLOGY ORDERABLES Fi nal Result Performing Organization Address City/[facility]/ZIP Co de Phone Number [facility] [place] [address] * FERRITIN (11/05/2024 3:15 PM CDT) [facility] FERRITIN 12 5 - 204 ng/mL 11/05/2024 4:29 PM CDT [facility] Blood Venipuncture / Unknown 11/05/2024 3:15 PM CDT 11/05/2024 3:15 PM CDT Raffy Mcdaniel MD CHEMISTRY ORDERABLES Fin al Result Performing Organization Address [facility] Co de Phone Number [facility] [address] [place] [address] * ROSALINDA SCREEN MULTIPLEX W/REFLEX HEAVEN (11/05/2024 3:15 PM CDT) [facility] ROSALINDA SCR MULTIPLEX Negative Negative, See comment 11/05/2024 10:40 PM CDT [facility] Blood Venipuncture / Unknown 11/05/2024 3:15 PM CDT 11/05/2024 3:15 PM CDT Narrative [facility] 11/05/2024 10:40 PM CDT Antibody testing was performed by multiplex flow immunoassay on the HYGIEIA platform. Raffy Mcdaniel MD IMMUNOLOGY ORDERABLES Fi nal Result Performing Organization Address City/[facility]/ZIP Co de Phone Number [facility] [address] [place] [address], [place] from Last 3 Months Insurance MEDICARE Care Teams Automation Technician Relationship Specialty Start Date End Date Ira Metz APRN, SUPERVISOR [employer] [address] [place] [address] [address] [place] [address] PCP - General Advanced Practice Nurse 08/14/24 Suly Alfonso MD [address] [place] [address] Obstetrics & Gynecology 11/05/24
--- OUTSIDE RECORDS SUMMARY | 2025-01-28 17:19 | XMS_ITS | Encounter Summary ---
Author Organization [employer] Address [address] [place] [address] Care Team Providers Care Diesel Pile Driver Operator Name Role Phone Meng King MD Primary Care Provider [phone] Encounter Details Date Type Department Care Team (Late st Contact Info) Description 09/29/2008 Outpatient Historical HIS [facility] [place] [address] [place] [id number] Social History Tobacco Use Types Packs/Day Years Used Date Smoking Tobacco: Never Assessed Comments Unknown Sex and Gender Information Value Date Recorded Sex Assigned at Not on file Legal Sex Female 4:09 AM RECOVERY ADVOCATE Gender Identity Not on file Sexual Orientation Not on file documented as of this encounter Plan of Treatment Not on file documented as of this encounter Procedures Procedure Name Priority Date/Time Associated Diagnosis Comments CBC WITH DIFFERENTIAL Routine 09/29/2008 11:19 AM RECOVERY ADVOCATE HCG QUANTITATIVE, BLOOD Routine 09/29/2008 11:19 AM RECOVERY ADVOCATE documented in this encounter Results * (ABNORMAL) CBC WITH DIFFERENTIAL (09/29/2008 11:19 AM RECOVERY ADVOCATE) HEMATOCRIT 44.3(H) 35.5 - 44.0 % [facility] RDW-STDEV 41.9 37.1 - 48.7 fL [facility] RBC 5.22(H) 3.90 - 4.90 M/uL [facility] MCHC 34.5 31.5 - 35.5 % [facility] MCV 84.9 82.0 - 99.0 fL [facility] PLATELETS 370(H) 140 - 350 K/uL [facility] HEMOGLOBIN 15.3(H) 11.8 - 14.8 g/dL [facility] RDW 13.6 11.5 - 14.5 % [facility] WBC 9.1 4.0 - 9.8 K/uL [facility] MCH 29.3 27.2 - 32.6 pg [facility] MPV 9.5 9.3 - 12.4 fL [facility] BASOPHILS 0 0 - 2 % [facility] BASOPHILS ABSOLUTE 0.02 0.00 - 0.20 K/uL [facility] MONOCYTES 5 3 - 13 % [facility] MONOCYTE ABSOLUTE 0.48 0.10 - 1.30 K/uL [facility] NEUTROPHILS 57 45 - 70 % [facility] NEUTROPHIL ABSOLUTE 5.19 1.90 - 7.00 K/uL [facility] EOSINOPHILS 2 0 - 7 % [facility] EOSINOPHIL ABSOLUTE 0.16 0.00 - 0.70 K/uL [facility] LYMPHOCYTES 35 16 - 45 % [facility] LYMPHOCYTE ABSOLUTE 3.21 0.70 - 4.50 K/uL [facility] Blood specimen (specimen) 09/29/2008 11:19 AM RECOVERY ADVOCATE 09/29/2008 4:51 PM RECOVERY ADVOCATE us Brando Dupont Mai, MD HEMATOLOGY ORDERABLES Edited INTERFACE SYSTEM Refer to clinic/hospital department [facility] CLIA# [id number] [address] [place] [address] * HCG QUANTITATIVE, BLOOD (09/29/2008 11:19 AM RECOVERY ADVOCATE) HCG QUANT, BLOOD <5 0 - 5 mIU/mL [facility] Comment: Result of 5 - [...] evidence. Blood specimen (specimen) 09/29/2008 11:19 AM RECOVERY ADVOCATE 09/29/2008 4:51 PM RECOVERY ADVOCATE Brando Dupont Mai, MD CHEMISTRY ORDERABLES Edited INTERFACE SYSTEM Refer to clinic/hospital department [facility] CLIA# [id number] [address] [place] [address] documented in this encounter Visit Diagnoses Not on filedocumented in this encounter Additional Health Concerns Infection Onset Date Last Indicated Resolved Time COVID-19 08/24/2020 08/24/2020 09/23/2020 1:16 AM RECOVERY ADVOCATE documented as of this encounter Care Teams Diesel Pile Driver Operator Relationship Specialty Start Date End Date Meng King MD [address] [place] [address] PCP - General Family Practice 11/15/23 documented as of this encounter
--- OUTSIDE RECORDS SUMMARY | 2025-01-28 17:19 | XMS_ITS | Encounter Summary ---
Author Organization [employer] Address [address] [place] [address] Care Team Providers Care Stretcher Leveler Operator Name Role Phone Meng King MD Primary Care Provider [phone] Encounter Details Date Type Department Care Team (Latest Contact Info) Description 09/19/2008 Outpatient Historical HIS [facility] Teja Bearden MD NO ADDRESS ON FILE Viral Infection; Tobacco Use Disorder; Encounter for Long-Term (Current) Use of Other Medications; Pure Hypercholesterolemia Social History Tobacco Use Types Packs/Day Years Used Date Smoking Tobacco: Never Assessed Comments Unknown Sex and Gender Information Value Date Recorded Sex Assigned at Not on file Legal Sex Female 4:09 AM BLACK PICKLER Gender Identity Not on file Sexual Orientation Not on file documented as of this encounter Plan of Treatment Not on file documented as of this encounter Procedures Procedure Name Priority Date/Time Associated Diagnosis Comments BETA STREP ONLY CULTURE Routine 09/19/2008 2:51 PM BLACK PICKLER documented in this encounter Results * BETA STREP ONLY CULTURE (09/19/2008 2:51 PM BLACK PICKLER) PRELIMINARY REPORT Pending [facility] FINAL REPORT No Group A, C, or G beta Streptococcus isolated. [facility] Specimen from throat (specimen) 09/19/2008 2:51 PM BLACK PICKLER 09/19/2008 7:48 PM BLACK PICKLER us Teja Nina MD MICROBIOLOGY - GENERAL ORDER LAZ Final Result INTERFACE SYSTEM Refer to clinic/hospital department [facility] CLIA# [id number] [address] [place] [address] documented in this encounter Visit Diagnoses Diagnosis Unspecified viral infection, in conditions classified elsewhere and of unspecified site Tobacco use disorder Encounter for long-term (current) use of other medications Pure hypercholesterolemia documented in this encounter Additional Health Concerns Infection Onset Date Last Indicated Resolved Time COVID-19 08/24/2020 08/24/2020 09/23/2020 1:16 AM BLACK PICKLER documented as of this encounter Care Teams Stretcher Leveler Operator Relationship Specialty Start Date End Date Meng King MD [address] [place] [address] PCP - General Family Practice 11/15/23 documented as of this encounter
--- OUTSIDE RECORDS SUMMARY | 2025-01-28 17:19 | XMS_ITS | Clinical Summary ---
Author Organization [facility] Address [address] [place] [address] Care Team Providers Care Preschool Assistant Teacher Name Role Phone Meng King MD Primary Care Provider [phone] Allergies Active Allergy Reactions Criticality Noted Date [...] Encounters Date Type Department Care Team Description 01/13/2025 External Device Data ST[facility] ABSTRACTION Provider, Abstract 12/31/2024 External Device Data [facility] ABSTRACTION Provider, Abstract 12/30/2024 External Device Data [facility] ABSTRACTION Provider, Abstract [...] Date Smoking Tobacco: Every Day Cigarettes 1 13.5 Started: 08/13/2021 Smokeless Tobacco: Never Alcohol Use Standard Drinks/Week Comments No 0 (1 standard drink = 0.6 oz pur e alcohol) Comments No Sex and Gender Information Value Date Recorded Sex Assigned at Not on file Legal Sex Female 4:09 AM PIN FEATHER 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 Gender Identity Not on file [...] 9:56 AM CDT Height 167.6 cm (5' 6) 12/04/2023 10:28 AM CDT Body Mass Index 37.93 12/04/2023 10:28 AM CDT Plan of Treatment Health Maintenance Due Date Last Done Comments Pre-Diabetes and Diabetes Screening 1985 HEPATITIS B VACCINES (1 of 3 - 19+ 3-dose series) 2004 DTAP/TDAP/TD VACCINES (2 - Td or Tdap) 11/25/2020 11/25/2010 INFLUENZA VACCINE (#1) 2024 7, 06/11/2015, 07/13/2010 PAP SMEAR 07/11/2025 07/11/2022, 07/11/2022 CERVICAL CANCER SCREENING 07/11/2027 HPV/Cotest (21-29) 07/11/2027 07/11/2022 HPV/Cotest (30-65) 07/11/2027 07/11/2022 HPV VACCINES Aged Out No longer eligi ble based on patient's age to complete this topic Insurance MEDICARE PART A AND B MEDICAID [place] RX AETNA Medicare Part D RX INFOCROSSING Medicaid RX AETNA Medicare Part D MEDICARE MEDICARE PART A AND B MEDICARE PART A AND B Advance Directives For more information, please contact: [phone] * Full Code (Latest Code Status on [...] 11:37 AM 09/13/2016 5:31 PM Care Teams Preschool Assistant Teacher Relationship Specialty Start Date End Date Meng King MD [address] [id number] PCP - General Family Practice 11/15/23
--- OUTSIDE RECORDS SUMMARY | 2025-01-28 17:19 | XMS_ITS | CONTINUITY OF CARE DOCUMENT ---
Author Name dante howell Address Unknown Organization [facility] Address [address] [place] [address] Phone [phone] Care Team Providers Care Internet Security Specialist Name Role Phone Carlos MARRERO, Aly Unavailable [phone] Matthieu Campbell MD Unavailable Dionicio CASTANEDA DO Unavailable [phone] INSURANCE PROVIDERS Payer name Policy type / Coverage type [employer] [place] party ID [place] MED[place]ARE PART B Medicare [id number]
--- OUTSIDE RECORDS SUMMARY | 2025-01-28 17:20 | XMS_ITS | Continuity of Care Document ---
Author Organization [facility] Address [address] [place] [address] Phone Care Team Providers Care Paymaster Of Purses Name Role Phone Amisha Barber Unavailable Unavailabl [...] Procedures Procedure Date ROUTINE VENIPUNCTURE May-30-2023 OFFICE NAQUS-YFJ-[id number] SYST BP LT 130 MM HG DIAST BP < 80 MM HG OFFICE YUTIA-GHA-HHOZUMKQ SYST BP LT 130 MM HG DIAST BP < 80 MM HG OFFICE DOWJY-RHN-QOAEHFKU SYST BP LT 130 MM HG DIAST BP < 80 MM HG Pt inelig neg scrn depres SCREENING FOR PAP (OBTAINING SPECIMEN) N OFFICE JDVHQ-AVM-BNORIZGN SYST BP LT 130 MM HG DIAST BP < 80 MM HG OFFICE QZKET-RCJ-HJHHOMAO SYST BP LT 130 MM HG DIAST BP < 80 MM HG ANTINUCLEAR ANTIBODIES (ROSALINDA) C-REACTIVE PROTEIN (CRP) CBC, INC PLATELETS AND DIFFERENTIAL COMPREHEN METABOLIC PANEL CMP LIPID PANEL RHEUMATOID FACTOR: QN RBC SED RATE, AUTOMATED THYROID STIMULATION HORMONE(TSH) ROUTINE VENIPUNCTURE OFFICE TRHGJ-FWV-HCQBYYRG SYST BP LT 130 MM HG DIAST BP 80-89 MM HG CBC, INC PLATELETS AND DIFFERENTIAL COMPREHEN METABOLIC PANEL CMP HEMOGLOBIN A1C HGA1C, GLYCO HIV-1 AG W/HIV-1 & HIV-2 AB RBC SED RATE, AUTOMATED THYROID STIMULATION HORMONE(TSH) 2020 URINALYSIS, DIPSTICK (UA) - Office Lab O ROUTINE VENIPUNCTURE OFFICE RRBCD-LAH-EBMGCSZQ SYST BP LT 130 MM HG DIAST BP < 80 MM HG ANTINUCLEAR ANTIBODIES (ROSALINDA) RHEUMATOID FACTOR: QN No Show Appt Charge No Show Appt Charge OFFICE VKDYV-JPV-OZUKOBFT SYST BP GE 130 - 139MM HG DIAST BP 80-89 MM HG OFFICE CUBJJ-RPK-PFYYMTEU SYST BP LT 130 MM HG DIAST [...] Diagnoses Date Provider Providers Copied on Encounter [facility], [address], [place], [place], [address] , tel:[phone] [facility] No Information 3 Gorge Lion. [address] [place], [place], [address], . tel:[phone] [facility], [address], [place], [place], [address] , tel:[phone] [facility] No Information 3 Gorge Lion. [address] [place], [place], [address], . tel:[phone] [facility], [address], [place], [place], [address] , tel:[phone] [facility] No Information 3 Bernadine Rashid. [address] [place], [place], [address], . tel:[phone] [facility], [address], [place], [place], [address] , tel:[phone] [place] No Information 3 Gorge Lion. [address], [place], [place], [address], [place]. tel:[phone] OFFICE [facility], [address], [place], [place], [address] , tel: [phone] [place] mmp (chief complaint) Body mass index [BMI] 32.0-32.9, adultArthralgia of multiple sitesEnlarged lymph nodesSpleen enlarged 3 Gorge Lion. [address], [place], [place], [address], [place]. tel:[phone] Referring Provider: Matthieu Campbell, [address], [place], [address]. tel:[phone] OFFICE WJAXU-GLJ-EBUP[facility], [address], [place], [place], [address] , [place] tel: [phone] [facility] Patient encounter (chief complaint) Arthralgia of multiple sitesRheumatoid factor positiveSpleen enlargedEnlarge d lymph nodes 3 Wendy Jimenez. [address], [place], [place], [address], [place]. tel:[phone] Referring Provider: Matthieu Campbell, [address], [place], [address]. [phone] OFFICE WQRJK-KSG-YYUP[facility], [address], [place], [place], [address] , [place] tel: [phone] [place] Patient encounter (chief complaint) Chronic right-sided low back pain with right-sided sciatica 3 Wendy Jimenez. [address], [place], [place], [address], [place]. tel:[phone] Referring Provider: Matthieu Campbell, [address], [place], [address]. [phone] OFFICE TFIVV-NGA-YZ [facility] [address], [place], [place], [address] , [place] tel:[phone] Bernadine mmp (chief complaint) Cervical cancer screeningBlurre d vision, bilateralLow serum iron 2 Gorge Lion. [address], [place], [place], [address], [place]. tel:[phone] Referring Provider: Matthieu Campbell, [facility], [facility] B, [place], [address]. tel:[phone] OFFICE QTDJF-RVD-JDUP[facility], [address], [place], [place], [address] , [place] [phone] Bernadine Patient encounter (chief complaint) Acute right-sided low back pain with right-sided sciaticaMuscle spasm 2 Wendy Jimenez. [address], [place], [place], [address], [place]. tel:[phone] Referring Provider: Matthieu Campbell, [address] [place] [address] B, [place], [address]. tel:[phone] OFFICE JIFCX-LRD-GYUP[facility], [address], [place], [place], [address] , [place] tel:[phone] [facility] Patient encounter (chief complaint) Arthralgia of multiple sitesRheumatoid factor positivePeriumb ilical abdominal painSpleen enlargedLipid screening 2 Gorge Lion. [address] [place], [address], [place]. tel:[phone] Referring Provider: Matthieu Campbell, [address] [place] [address] B, [place], [address]. tel:[phone] OFFICE GSKEN-YVG-KPUP[facility], [address], [place], [place], [address] , [place] tel:[phone] [place] mmp (chief complaint) Periumbilical abdominal painCyst of right ovaryUnintentio nal weight lossPCB (post coital bleeding)Spleen enlargedElevate d sed rate 1 Gorge Amisha. [address] [facility] [place], [address], . tel:[phone] Referring Provider: Matthieu Campbell, [address] [facility] B, [place], [address]. tel:[phone] [facility], [address], [place], [place], [address] , [place] tel:[phone] [place] No Information 0 Adrian Sommers. [address] [facility] B, [place], [place], [address], [place]. tel:[phone] Referring Provider: Matthieu Campbell, [address] [facility] B, [place], [address]. tel:[phone] [facility], [address], [place], [place], [address] , [place] tel: [phone] [place] No Information 9 Adrian Sommers. [address] [facility] B, [place], [place], [address], [place]. tel:[phone] Referring Provider: Matthieu Campbell, [address] [place] [address] B, [place], [address]. [phone] OFFICE IBGMO-FPT-RG [facility], [address], [place], [place], [address] , [place] tel:[phone] [place] Chronic Conditions (chief complaint)M MP (chief complaint) Bipolar disorder, unspecifiedMigr vitaly, unspecified, not intractable, without status migrainosusRigh t hip pain 9 Adrian Sommers. [address] [facility] [place], [address], [place]. tel:[phone] Referring Provider: Matthieu Campbell, [address] [facility] B, [place], [address]. [phone] OFFICE [facility]YYUC[facility]MUE[facility], [address], [place], [place], [address] , [place] tel: [phone] [facility] (chief complaint) Migraine, unspecified, not intractable, without status migrainosusBipo lar 1 disorderHeart murmur 9 Adrian Sommers. [address] [facility] B, [place], [place], [address], . tel:[phone] Referring Provider: Matthieu Campbell, [address] [facility] B, [place], [address]. tel:[phone] [facility], [address], [place], [place], [address] , [place] tel: [phone] [facility] (chief complaint) Heart murmurColloid cyst of brainBipolar 1 disorderInconti nence of feces, unspecified fecal incontinence typeMigraine, unspecified, not intractable, without status migrainosus Jan- 9 Adrian Sommers. [address] [facility] B, [place], [place], [address], . tel:[phone] Referring Provider: Matthieu Campbell, [address] [facility] B, [place], [address]. tel:[phone] [facility], [address], [place], [place], [address] , [place] tel: [phone] [place] Chronic Conditions (chief complaint) Generalized anxiety disorderMorbid (severe) obesity due to excess caloriesEncount er for general adult medical examination without abnormal findingsMigrain e, unspecified, not intractable, without status migrainosusPoly cystic ovarian syndromeInterve rtebral disc disorders with radiculopathy, lumbar regionOther fatigueMajor depressive disorder, single episode, unspecified 9 Adrian Sommers. [address] [facility] B, [place], [place], [address], . tel:[phone] Referring Provider: Matthieu Campbell, [address] [facility] B, [place], [address]. tel:[phone] [facility], [address], [place], [place], [address] , [place] tel: [phone] [facility] (chief complaint) Intractable migraine without aura and with status migrainosusSnor ing Adrian Sommers. [address] [place] [address], [address], [place]. tel:[phone] Referring Provider: Matthieu Campbell, [address] [place] [address], [place], [address]. tel:[phone] [facility], [address], [place], [place], [address] , [place] tel: [phone] [facility] (chief complaint) CLOTILDE (generalized anxiety disorder)Bulgin g of lumbar intervertebral disc Eden Hilda. [address] [place] [address], [address]. tel:[phone] Referring Provider: Rachid Seals, [address] [place] [address], [address]. tel:[phone] [facility] [address], [place], [place], [address] , [place] tel: [phone] [facility] follow up (chief complaint) Colloid cyst of brainBipolar depressionLumba r disc herniation with radiculopathyMu rmur, cardiac Eden Hilda. [address] [place] [address], [address]. tel:[phone] Referring Provider: Rachid Seals, [address] [place] [address], [place], [address]. tel:[phone] [facility], [address], [place], [place], [address] , [place] tel: [phone] [facility] 2 week follow up (chief complaint) Fatigue, unspecified typeBipolar depression Eden Hilda. [address] [place] [address], [address]. tel:[phone] Referring Provider: Rachid Seals, [address] [place] [address], [place], [address]. tel:[phone] [facility], [address], [place], [place], [address] , [place] tel: [phone] [facility] follow up/depressi on (chief complaint) Lumbar disc herniation with radiculopathyBi polar depression 7 Eden Hilda. [address] [place], [place], [address]. tel:[phone] Referring Provider: Rachid Seals, [address] [place] [address], [place], [address]. tel:[phone] [facility], [address], [place], [place], [address] , [place] tel: [phone] [place] Lumbar disc herniation with radiculopathyNe oplasm of uncertain behavior of skinDifficulty sleeping 7 Eden Hilda. [address] [place] [address], [address]. tel:[phone] Referring Provider: Rachid Seals, [address] [place] [address], [place], [address]. tel:[phone] [employer] [facility], [address], [place], [place], [address] , [place] tel: [phone] [place] Bipolar depressionAnxie ty10 weeks gestation of 6 Eden Hilda. [facility] [place], [place], [address]. tel:[phone] Referring Provider: Rachid Seals, [address] [place] [address], [place], [address]. tel:[phone] [facility], [address], [place], [place], [address] , [place] tel: [phone] Bernadine Encounter for immunizationMix ed hyperlipidemiaM orbid obesity with body mass index of 40.0-44.9 in adultCervicalgi aAnxietyFamily planning 201 5 Eden Hilda. [facility]5 [place], [place], [address]. tel:[phone] Referring Provider: Rachid Seals, [address] [facility], [place], [address]. tel:[phone] [facility], [address], [place], [place], [address] , [place] tel: [phone] [facility] Diarrhea Oct-2 7-201 5 Bialecki Eldad. [address] [place] [address], [id number], [place]. tel:[phone] [facility], [address], [place], [place], [address] , [place] tel: [phone] [facility] Enlarged thyroidNeck painTenderness of right axillaIrregular menstrual cycle Sep-1 0-201 5 Eden Hilda. [address] [place], [place], [address]. tel:[phone] Referring Provider: Rachid Seals, [address] [place], [address]. tel:[phone] [facility], [address], [place], [place], [address] , [place] tel: [phone] [facility] Diarrhea Sep-0 2-201 5 Bialecki Eldad. [address] [place] [address], [id number], [place]. tel:[phone] Referring Provider: Belinda Esqueda, [address] [place] [address], [address]. tel:[phone] [facility], [address], [place], [place], [address] , [place] tel: [phone] [facility] DiarrheaLUQ abdominal pain Alexis-2 1-201 5 Bialecki Eldad. [address] [place] [address], [id number], [place]. tel:[phone] Referring Provider: Belinda Esqueda, [address] [place] [address], [address]. tel:[phone] [facility], [address], [place], [place], [address] , [place] tel: [phone] Bern[facility] Pain in limb May-0 5 Bernadine Rashid. [address] [facility], [place], [place], [address], . tel:[phone] [facility] [address], [place], [place], [address] , tel: [phone] [facility] Lymphedema of armPain of right upper armHistory of lymph node dissection of right axilla Apr-2 5 Eden Hilda. [address] [place], [place], [address]. tel:[phone] Referring Provider: Rachid Seals, [address] [place] [address], [address]. tel:[phone] [facility] [address], [place], [place], [address] , tel: [phone] Bernadine AmenorrheaAxill lopez lymphadenopathy Bipolar depression Oct-2 5 Eden Hilda. [address] [place], [place], [address]. tel:[phone] Referring Provider: Rachid Seals, [address] [place] [address], [address]. tel:[phone] [employer] AdvertisingCount[facility] include 234 beds at the [facility] [address], [place], [place], [address] , [place] tel: [phone] Bernadine Axillary lymphadenopathy Chronic diarrheaBipolar I disorder, most recent episode (or current) depressed, unspecifiedMorb id obesity with BMI of 40.0-44.9, adult Feb-2 - 5 Eden Hilda. [address] [place], [place], [address]. tel:[phone] Referring Provider: Rachid Seals, [address] [place], [address]. tel:[phone] [employer] [facility]vertising[facility] include 234 beds at the [facility] [address], [place], [place], [address] , tel: [phone] Bernad[facility] Bipolar I disorder, most recent episode (or current) depressed, unspecifiedPost erior cervical lymphadenopathy Scalp psoriasisAcute frontal sinusitis 0 5 Karey Stevens. [facility]5 [place], [place], [address]. tel:[phone] Referring Provider: Rachid Seals, [address] [place] [address], [place], [address]. tel:[phone] [facility], [address], [place], [place], [address] , [place] tel:[phone] [facility] DiarrheaAbdomin al pain 2 5 Simonalion Gayegabby. [address] [place], [place], [address], [place]. tel:[phone] Referring Provider: Hilda Wright, [address] [place] [address], [place], [address]. tel:[phone] [facility], [address], [place], [place], [address] , [place] tel:[phone] Bernad[facility] Abdominal painDiarrheaMor bid obesity with BMI of 40.0-44.9, adultBipolar I disorder, most recent episode (or current) depressed, unspecifiedFami ly planning 4 Karey Stevens. [facility]5 [place], [place], [address]. tel:[phone] Referring Provider: Rachid Seals, [address] [place] [address], [place], [address]. tel:[phone] [facility], [address], [place], [place], [address] , [place] tel:[phone] [facility] DiarrheaAbdomin al painBipolar I disorder, most recent episode (or current) depressed, unspecifiedMorb id obesity with BMI of 40.0-44.9, adultFamily planning 4 Karey Stevens. [address] [place] [address], [address]. tel:[phone] Referring Provider: Rachid Seals, [address] [place] [address], [place], [address]. tel:[phone] [facility], [address], [place], [place], [address] , tel: [phone] Bernadine Mixed hyperlipidemiaL reece-term (current) use of other medicationsMixe d hyperlipidemiaL reece-term (current) use of other medicationsDisp lacement of lumbar intervertebral disc without myelopathyBipol ar I disorder, most recent episode (or current) depressed, unspecified 3 Eden Hilda. [facility]5 [place], [place], [address]. tel:[phone] Referring Provider: Rachid Seals, [address] [place], [address]. tel:[phone] [employer] [facility], [address], [place], [place], [address] , tel: [phone] Bernadine Lumbar herniated discStool incontinenceBip olar depression 2 Eden Hilda. [facility]5 [place], [place], [address]. tel:[phone] Referring Provider: Rachid Seals, [address] [facility], [place], [address]. tel:[phone] [facility], [address], [place], [place], [address] , tel:[phone] Bernadine 1 mo follow up (chief complaint) Lumbar pain with radiation down left legBack pain, thoracicBowel incontinence 2 Eden Hilda. [facility]5 [place], [place], [address]. tel:[phone] Referring Provider: Rachid Seals, [address] [place], [address]. tel:[phone] [facility], [address], [place], [place], [address] , tel:[phone] Bernadine back pain (chief complaint)a menorrhea (chief complaint) AmenorrheaBack painMorbid obesityElevated blood pressure reading without diagnosis of hypertension 2 Eden Hilda. [address] [facility], [place], [place], [address]. tel:[phone] Referring Provider: Rachid Seals, [address] [facility], [place], [address]. tel:[phone] [employer], [address], [place], [place], [address] , [place] tel: [phone] [facility] NATRL FAM PLN-AVOID PREGTOBACCO USE DISORDER Nov- 0 Bernadine Rashid. [address] [facility], [place], [place], [address], [place]. tel:[phone] [facility], [address], [place], [place], [address] , [place] tel: [phone] [facility] HAIR DISEASES NEC 0 Karey Stevens. [address] [facility], [place], [place], [address]. tel:[phone] [employer], [address], [place], [place], [address] , [place] tel: [phone] [facility] POLYCYSTIC OVARIES 9 Mahsa Aragon. [address] , [place], [place], [address]. tel:[phone] [facility], [address], [place], [place], [address] , [place] tel: [phone] [facility] MALAISE AND FATIGUE NECMIXED HYPERLIPIDEMIA 9 Bernadine Rashid. [address] [facility], [place], [place], [address], [place]. tel:[phone] [facility], [address], [place], [place], [address] , [place] tel: [phone] [facility] No Information 9 Eden Cindy. [address] [facility], [place], [place], [address]. tel:[phone] [facility], [address], [place], [place], [address] , [place] tel: [phone] Bernadine CHRONIC RHINITIS 9 Karey Stevens. [address] [facility] B, [place], [place], [address]. tel:[phone] Family History Family Member Type Diagnosis Age At Onset Mother Problem (finding) Hearing impairment Father Problem (finding) Obesity Father Problem (finding) diabetes melli tus in first degree relative Father Problem (finding) raised blood lipids Immunizations Vaccine Date Status Comments influenza, injectable, quadrivalent, (3 years or older) administered Source: New Immuniza tion Record Payers Payer name Insurance type Covered green party ID Authoriza tion(s) MEDICARE [id number] MEDICAID [facility] [id number] [place] INACTIVE OUT OF STATE [id number] Social History Type Description Quantity Date Captured [...] Referral Referred To: Carey Partida MD [address] [place], [phone] Ordered: Referrals: Hematology. Carey Partida MD. 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 Referred to granite installer at that time but states they didn't take her insurance and patient didn't follow up. Patient also takes she has abdominal pain, feels like there is a needle grinder in her abdomen. Reports a constant pain, [...] she had an echocardiogram last year at [facility]. Will try to get those [...] at all with the headache.She went to [facility] emergency room on October 22 because of [...] yessi ign colloidal brain tumor removed at [facility] and was discharged about 0ne week [...] adult Labs done in office today. Sees granite installer. Tramadol as needed for pain. controlled medication [...] coital bleeding) Follow up in 1-2 wee nj for pap testing and HPV testing. Will [...] to see how your changes have helped. [employer] and other apps can help track calories. [...] amitriptyline for prophylaxis. Provided contact information for [facility] migraine clinic. I think there [...] nt have her hosp notes from [facility] to know if they worked it [...] of [facility] since having the surgery for [...] so will give her Dr Saldaña number- [phone] Related to Bipolar depression needs to make [...]
--- OUTSIDE RECORDS SUMMARY | 2025-01-28 17:20 | XMS_ITS | Encounter Summary ---
Author Organization [facility] Health Address [address] [place] [address] Care Team Providers Care Motor Carrier Inspector Name Role Phone Dionicio Colindres Primary Care Provider Encounter Details Date Type Department Care Team (Late st Contact Info) Description 11/15/2022 Lab Requisition [facility] [address] [place] [address] [place] [address] [place] [address] [place] [id number] Social History Tobacco Use Types Packs/Day Years Used Date Smoking Tobacco: Former Cigarettes 1 4 1 08/13/2009 - 06/13/2014 Smokeless Tobacco: Never Alcohol Use Standard Drinks/Week Comments Yes 0 (1 standard drink = 0.6 oz pur e alcohol) occasionally Comments No Sex and Gender Information Value Date Recorded Sex Assigned at Not on file Legal 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 Answer Date of Assessment Author No 11/10/2014 7:14 AM Abbie Louis RN * Is person blind or have serious difficulty seeing? Answer Date of Assessment Author No 11/10/2014 7:14 AM Abbie Louis RN * Does person have serious difficulty walking/climbing stairs? Answer Date of Assessment Author No 11/10/2014 7:14 AM CDT Abbie Carter RN * Does person have difficulty dressing/bathing? Answer Date of Assessment Author No 11/10/2014 7:14 AM CDT Abbie Carter RN * Does person have difficulty doing errands alone? Answer Date of Assessment Author No 11/10/2014 7:14 AM LAYT Abbie Carter RN documented as of this encounter Mental Status * Does person have difficulty concentrating/remembering/making decisions? Answer Entry Date Author No 11/10/2014 7:14 AM CDT Abbie Carter RN documented in this encounter Plan of Treatment Not on file documented as of this encounter Procedures Procedure Name Priority Date/Time Associated Diagnosis Comments DERMATOPATHOLOGY Routine 11/14/2022 12:0 0 AM CDT documented in this encounter Results * DERMATOPATHOLOGY (11/14/2022 12:00 AM CDT) Case Report Dermatopathology Report Case: [id number] Authorizing Provider: Matthieu Helms MD Collected: 11/14/2022 12:00 AM Ordering Location: [facility] Received: 11/15/2022 09:24 AM Pathologist: Reinaldo Astudillo MD Specimen: Skin, right infaorbital cheek 3 12:37 PM CDT DERMATOPATHOLOGY LABORATORY Final Diagnosis Specimen A. SKIN, right infaorbital cheek: LARGE CELL ACANTHOMA (D23.9) (see microscopic description) 3 12:37 PM CDT DERMATOPATHOLOGY LABORATORY at 1237 CDT Clinical History Neoplasm of uncertain behavior of [...] characteristic determined by the Dermatopathology Laboratory at [facility], directed by Dr. Karley Astudillo. These tests need not be, and therefore are not, approved by the [place] Food and Drug Administration. The tests are used for clinical purposes. Billing Codes Specimen Charges Stain Charges 19171 1 3 12:37 PM CDT DERMATOPATHOLOGY LABORATORY Embedded Images 3 12:37 PM CDT DERMATOPATHOLOGY LABORATORY Pathology/Cytolog y TISSUE SPECIMEN FROM SKIN / Unknown 11/14/2022 11/15/2022 9:24 AM CDT Matthieu Helms MD LAB - PATHOLOGY/CYTOLOGY O RDERABLES Final Result DERMATOPATHOLOGY LABORATORY [facility] - Department of Dermatology [facility] Medicine [address] [place] [address], [address] [phone] documented in this encounter Visit Diagnoses Not on filedocumented in this encounter Additional Health Concerns Infection Onset Date Last Indicated Resolved Time MRSA 09/24/2020 09/24/2020 documented as of this encounter Care Teams Motor Carrier Inspector Relationship Specialty Start Date End Date Dionicio Colindres DO [address] [place] [address] PCP - General Family Medicine 01/03/18 documented as of this encounter
--- NOTE | 2025-01-28 18:11 | ED_ITS ---
HPI - Back Pain/Injury General Chief Complaint: Back Pain/Injury Stated Complaint: back pain, tingling in legs Time Seen by Provider: 01/28/25 18:11 Focused HPI: Patient is a 39 y/o male who presents to the ED with c/o back pain. Patient reports she first developed a cold sensation in her L lower leg last week. States this lasted for 1-2 days and has since resolved. Since then, she has been having a pins and needle sensation in her L foot. States this has begun travelling up her LLE, up to her L lower back and umbilical region. Today, she was walking and felt a pop in her lower back. Has had pain in her lower back since then. Reports pain somewhat radiates into RLE and she feels a tight squeezing pain in her RLE. Has not taken anything for pain, states she has a high pain tolerance. Denies bowel or bladder incontinence, saddle anesthesia. Hx of lumbar hemilaminectomy surgery in August. GENERAL: Anxious-appearing, morbidly obese with BMI of 40.0, and in no acute distress. HEAD: Normocephalic, atraumatic. CHEST: Clear to auscultation. ?No respiratory distress. HEART: Regular rate and rhythm.? MSK: Hyperalgesia of LLE. TTP in midline lumbar region w/o palpable deformities or step offs. NEURO: ?Alert and oriented x3. Patient screened in triage and initial orders placed.? ?Additional care and disposition to be based upon?diagnostic testing and treatment. Source: patient Mode of arrival: ambulatory Limitations: no limitations Related Data Home Medications ?Medication ?Instructions ?Recorded ?Confirmed ?Last Taken ?Type ferrous sulfate 325 mg (65 mg 325 mg PO BID 10/30/23 01/01/25 08/15/24 History iron) tablet inulin 2 gram chewable tablet 2 g PO DAILY 07/28/24 01/01/25 08/15/24 History (Fiber Gummies) Allergies Allergy/AdvReac Type Severity Reaction Status Date / Time No Known Allergies Allergy Verified 01/01/25 08:32 [facility] Past Medical History Medical History Lumbar radiculopathy, right Gallbladder disorder BMI 40.0-44.9, adult Apical abscess Abdominal pain Low back pain radiating to both legs Migraine syndrome Colloid cyst of brain History of brain tumor Tobacco abuse Elevated rheumatoid factor Abnormal stools Colloid cyst of third ventricle hx of Abnormal positron emission tomography (PET) scan Murmur Low back pain Encounter to establish care Anemia Elevated liver enzymes RUQ pain Osteoporosis Spina bifida occulta Headache Arthritis Allergies Surgical History Surgical History H/O tubal ligation 2014 H/O of hemilaminectomy 2024 S/P left oophorectomy Hx of lymph node excision Right axillary LN, 10/2014, follicular hyperplasia S/P cholecystectomy 02/2010 Previous section 2010, 2016, 2017 History of craniotomy 2017; removal of colloid cyst third ventricle Family History Family History Father Diabetes mellitus Hypertension Heart disease Thyroid disorder Mother Hypertension Grandparent Diabetes mellitus maternal grandmother and paternal grandfather Leukemia Grandparent Heart disease Malignant neoplasm of prostate Other Myelofibrosis Polycythemia vera Social History Social History Years smoked: 10 Smoking status: Current every day smoker Tobacco type: e-cigarettes/vaping Smoking end date: 03/13/24 Additional smoking assessment comments: CURRENTLY VAPING Alcohol intake: never Substance use: never Substance use type: does not use Do You Feel Safe in your Home?: Yes Lack of Transportation: No Lack of Food: Never True Current Housing: I Have Housing Concerned About Future Housing: No Difficulty Paying Gas/Electric Bills: No Difficulty Paying for Meds: No Currently Unemployed: No Education: High School Diploma/GED Difficulty w/ Childcare or Family Care: No Living arrangements: alone Occupation/Education: unemployed Spiritual care concerns: No Course Vital Signs Vital signs: Vital Signs Temperature 97.7 F 01/28/25 15:49 Pulse Rate 95 01/28/25 15:49 Respiratory Rate 18 01/28/25 15:49 Blood Pressure 175/95 H 01/28/25 15:49 Pulse Oximetry 99 01/28/25 15:49 Oxygen Delivery Room Air 01/28/25 15:49 Temperature 97.7 F 01/28/25 15:49 Pulse Rate 82 01/28/25 18:18 Respiratory Rate 20 01/28/25 18:18 Blood Pressure 175/111 H 01/28/25 18:18 Pulse Oximetry 98 01/28/25 18:18 Oxygen Delivery Room Air 01/28/25 15:49 MDM - Back Pain/Injury MDM Narrative Medical decision making narrative: MSE by ALEX in triage. Patient left facility after initial MSE in triage before further evaluation or workup. Discharge Plan Discharge Clinical Impression: Left leg paresthesias Strain of lumbar region Qualifiers: Encounter type: initial encounter Qualified Code(s): S39.012A - Strain of muscle, fascia and tendon of lower back, initial encounter Patient Disposition: Elopement After Seen by Prov Patient Language: Slovenian Prescriptions: No Action ferrous sulfate 325 mg (65 mg iron) tablet 325 mg PO BID rizatriptan [Maxalt] 10 mg tablet See Rx Instructions PO .COMPLEX Qty: 10 3RF Rx Instructions: take 1 tab at onset of headache; if no relief may repeat 1 tab after at least 2 hrs; max = 3 tabs/24 hr PO naproxen 500 mg tablet 500 mg PO BID PRN (Reason: pain) Qty: 60 0RF Fiber Gummies 2 gram tablet,chewable 2 g PO DAILY cyclobenzaprine 10 mg tablet 10 mg PO TID PRN (Reason: muscle spasm) Qty: 30 0RF etonogestrel-ethinyl estradiol [NuvaRing] 0.12-0.015 mg/24 hr ring 1 vag ring vaginal ONCE Qty: 3 1RF Rx Instructions: insert 1 ring vaginally for 3 weeks then remove for 1 week Follow-up/Referrals: Ira Metz, NEO [Primary Care Provider] -
[2025-01-28 18:18] VITALS: BP 175/111; PULSE 82; RESP 20; O2SAT 98
--- OUTSIDE RECORDS SUMMARY | 2025-01-28 20:52 | XMS_ITS | CONTINUITY OF CARE DOCUMENT ---
Author Name dante howell Address Unknown Organization [facility] Address [address] [place] [address] Phone [phone] Care Team Providers Care Quarry Manager Name Role Phone Carlos MARRERO, Aly Unavailable [phone] Matthieu Campbell MD Unavailable [phone] Dionicio CASTANEDA DO Unavailable [phone] INSURANCE PROVIDERS Payer name Policy type / Coverage type [place] red republic[place] MEDICARE PART B Medicare [id number]
--- OUTSIDE RECORDS SUMMARY | 2025-01-28 20:52 | XMS_ITS | Referral Summary ---
Author Organization [facility] Address [address] [place] [address] Care Team Providers Care Rn Pacu Name Role Phone Daisha Staley MD Primary [...] 07/25/2023 Assessment & Plan (09/17/2023 2:32 PM GRINDING MACHINE OPERATOR): Unable to tolerate bupropion, discussed possibly starting chantix vs gum/patches, she plans to try patches. Assessment & Plan (07/25/2023 9:24 AM GRINDING MACHINE OPERATOR): We discussed the risks of smoking including cardiovascular disease, pulmonary disease, osteoporosis and cancer risks. We talked about reducing risks through smoking cessation. We reviewed approaches to quitting smoking including behavioral changes; nicotine replacement with gums, patches, lozenges; medications such as buproprion or chantix. I also gave resources such as [facility] smoking cessation clinic and 6-942-SHOU-NOW for additional support. I spent 4 minutes discussing smoking and smoking cessation. Rx for bupropion sent. Chlamydia contact 03/26/2023 Psoriatic arthritis 02/20/2023 Assessment & Plan (07/25/2023 9:24 AM GRINDING MACHINE OPERATOR): Patient transitioning care to [facility], had been on steroids and leflunomide, stopped on her own, feels her symptoms are stable. Will refer to rheumatology. Assessment & Plan (02/20/2023 1:57 PM CDT): Follows with rheumatology. Stable. History of gestational diabetes 02/20/2023 Lymphadenopathy 02/20/2023 Assessment & Plan (07/25/2023 9:25 AM GRINDING MACHINE OPERATOR): Has had lymph node dissection in the past, with benign pathology, notes worsening again, especially since off steroids. Will refer to hematology for further evaluation. Assessment & Plan (02/20/2023 1:57 PM CDT): Has had lymph node dissection in the past, with benign pathology. Has follow up with hematology scheduled. Will monitor. Lumbar disc herniation with radiculopathy 2016 Assessment & Plan (09/17/2023 2:31 PM GRINDING MACHINE OPERATOR): Patient currently taking tramadol daily as well [...] on file Legal Sex Female 4:23 PM GRINDING MACHINE OPERATOR Gender Identity Not on file Sexual Orientation Not on file Last Filed Vital Signs Vital Sign Reading Time Taken Comments Blood Pressure 120/80 09/17/2023 9:43 AM GRINDING MACHINE OPERATOR Pulse 88 09/17/2023 9:43 AM GRINDING MACHINE OPERATOR Temperature - - Respiratory Rate - - Oxygen Saturation 98% 09/17/2023 9:43 AM GRINDING MACHINE OPERATOR Inhaled Oxygen Concentration - - Weight 97.5 kg (214 lb 14.4 oz) 09/17/2023 9:43 AM GRINDING MACHINE OPERATOR Height 167.6 cm (5' 6) 09/17/2023 9:43 AM GRINDING MACHINE OPERATOR Body Mass Index 34.69 09/17/2023 9:43 AM GRINDING MACHINE OPERATOR Plan of Treatment Not on file Insurance MEDICARE MEDICARE [facility] Care Teams Rn Pacu Relationship Specialty Start Date End Date Daisha Staley MD [address] [place] [address] [address] [address] PCP - General Internal Medicine 02/06/23
--- OUTSIDE RECORDS SUMMARY | 2025-01-28 20:52 | XMS_ITS | Encounter Summary ---
Author Organization [employer] Address [address] [place] [address] Care Team Providers Care Desktop Publisher Name Role Phone Meng King MD Primary Care Provider [phone] Encounter Details Date Type Department Care Team (Late st Contact Info) Description 10/24/2004 Outpatient Historical [facility] Landon Yadav MD [facility] [place] [address] Er, Authorized P NO ADDRESS ON FILE LOWER LEG INJURY NOS (Primary Dx) Social History Tobacco Use Types Packs/Day Years Used Date Smoking Tobacco: Never Assessed Comments Unknown Sex and Gender Information Value Date Recorded Sex Assigned at Not on file Legal Sex Female 4:09 AM GAS PLANT REPAIRER Gender Identity Not on file Sexual Orientation Not on file documented as of this encounter Plan of Treatment Not on file documented as of this encounter Visit Diagnoses Diagnosis Injury, other and unspecified, knee, leg, ankle, and foot- Primary documented in this encounter Additional Health Concerns Infection Onset Date Last Indicated Resolved Time COVID-19 08/24/2020 08/24/2020 09/23/2020 1:16 AM GAS PLANT REPAIRER documented as of this encounter Care Teams Desktop Publisher Relationship Specialty Start Date End Date Meng King MD [address] [place] [address] PCP - General Family Practice 11/15/23 documented as of this encounter
--- OUTSIDE RECORDS SUMMARY | 2025-01-28 20:52 | XMS_ITS | Encounter Summary ---
Author Organization [employer] Address [address] [place] [address] Care Team Providers Care Curtain Supervisor Name Role Phone Meng King MD Primary Care Provider [phone] Encounter Details Date Type Department Care Team (Latest Contact Info) Description 10/24/2008 Outpatient Historical [facility] [place] [address] [place] [id number] Acute Upper Respiratory Infections of Unspecified Site; Bronchitis, not Specified as Acute or Chronic; Tobacco Use Disorder; Pure Hypercholesterolemia Social History Tobacco Use Types Packs/Day Years Used Date Smoking Tobacco: Never Assessed Comments Unknown Sex and Gender Information Value Date Recorded Sex Assigned at Not on file Legal Sex Female 4:09 AM TECHNICAL ACCOUNT REPRESENTATIVE Gender Identity Not on file Sexual [...] Time COVID-19 08/24/2020 08/24/2020 09/23/2020 1:16 AM TECHNICAL ACCOUNT REPRESENTATIVE documented as of this encounter Care Teams Curtain Supervisor Relationship Specialty Start Date End Date Meng King MD [address] [place] [address] PCP - General Family Practice 11/15/23 documented as of this encounter
--- OUTSIDE RECORDS SUMMARY | 2025-01-28 20:52 | XMS_ITS | Clinical Summary ---
Author Organization [facility] Address [address] [place] [address] Phone Care Team Providers Care Date Pitter Name Role Phone Isaías Ira JOHNATHAN, [place] Primary Care Provider + Suly Alfonso MD Unavailable [phone] Medications cyclobenzaprine (FLEXERIL) 5 MG Tablet [...] - 12/27/2024 11:59 PM CDT [facility] 1 [facility] [place] [address] Raffy Mcdaniel MD Discharge Disposition: Discharged to home or Selfcare 12/26/2024 Travel 12/11/2024 1:40 PM CDT [facility] [address] [place] [address] Raffy Mcdaniel MD Family history of polycythemia (Primary Dx); Iron deficiency; Generalized abdominal pain; Lymphadenopathy of head and neck Discharge Disposition: Discharged to home or Selfcare 12/11/2024 Travel 12/05/2024 1:02 PM CDT - 12/05/2024 11:59 PM CDT [facility] [address] [place] [address] Provider, Not On File Discharge Disposition: Discharged to home or Selfcare 12/02/2024 7:48 AM CDT - 12/02/2024 11:59 PM CDT [facility] 1 [facility] [place] [address] Raffy Mcdaniel MD Discharge Disposition: Discharged to home or Selfcare 12/01/2024 Travel 11/20/2024 8:00 AM CDT [facility] [address] [place] [address] Raffy Mcdaniel MD Polycythemia Discharge Disposition: Discharged to home or Selfcare 11/20/2024 Travel 11/19/2024 Travel 11/19/2024 Telephone [facility] [address] [place] [address] Raffy Mcdaniel MD 11/05/2024 3:00 PM CDT Lab [facility] Oncology Services [address] [place] [address] Raffy Mcdaniel MD Iron deficiency; Family history of polycythemia; Enlarged lymph nodes Discharge Disposition: Discharged to home or Selfcare 11/05/2024 1:20 PM CDT [facility] [address] [place] [address] Raffy Mcdaniel MD Iron deficiency (Primary Dx); [...] on file Legal Sex Female 1:41 PM GLASS BLOCK BENDER Gender Identity Not on file Sexual Orientation [...] Description 02/03/2025 3:00 PM CDT Office Visit [facility] Oncology Services [address] [place] [address] Krystyna Hernandes, EXCAVATOR OPERATOR, FLUID DYNAMICIST [address] [place] [address] Raffy Mcdaniel MD [address] [place] [address] Discharge Disposition: Discharged to home or Selfcare 02/03/2025 3:20 PM CDT Lab [facility] Oncology Services [address] [place] [address] Raffy Mcdaniel MD [address] [place] [address] Discharge Disposition: Discharged to home or Selfcare [...] 8:11 AM CDT JAK2 V617F MUTATION DETECTION, ROU[place] JAK2B Routine 11/20/2024 8:03 AM CDT Polycythemia [...] performed of the right neck by the experimental technician, with selected grayscale and color Doppler images [...] Justin Brush D.O. AP: AP Report ID: [id number] Reading Location: [place] [address] Procedure Note Justin Brush DO - 12/29/2024 EXAM DESCRIPTION: US SOFT TISSUE HEAD AND NECK REASON FOR STUDY: right neck lymphadenopathy, palpable area right neck times years. TECHNIQUE: A Dynamic assessment was performed of the right neck by the experimental technician, with selected grayscale and color Doppler images [...] Justin Brush D.O. AP: AP Report ID: [id number] Reading Location: [id number] IMPRESSION: As above. us Raffy Mcdaniel MD [...] Tristan Arias M.D. KR: MIO Report ID: [id number] Reading Location: [id number] Procedure Note Tristan Arias MD - 12/10/2024 [...] Tristan Arias M.D. KR: MIO Report ID: [id number] Reading Location: [id number] IMPRESSION: No lymphadenopathy within the chest, abdomen, or pelvis. No other significant findings. Raffy Mcdaniel MD IMG CT ORDERABLES Final Result * POCT Creatinine (12/02/2024 8:11 AM CDT) CREATININE - POCT 0.7 0.6 - 1.3 mg/dL 12/02/2024 8:15 AM CDT [facility] Blood 12/02/2024 8:11 AM CDT 12/02/2024 8:15 AM CDT None Provider POINT OF CARE TESTING Final Resu lt [facility] [address] [place] [address] * JAK2 V617F MUTATION DETECTION, R[place] JAK2B (11/20/2024 8:03 AM CDT) JAK2 RESULT see interpretation 5 5:59 PM CDT [facility] JAK2 V617F MUTATION DETECTION SEE NOTE 5 5:59 PM CDT [facility] Comment: Peripheral blood, JAK2 V617F mutation analysis: Negative for JAK2 V617F. A negative [id number] test result does not exclude the possibility [...] assay has been determined at 0.06% (see [facility] Interpretive Handbook for method details). This test was developed and its performance characteristics determined by [facility] in a manner consistent with CLIA requirements. This test has not been cleared or approved by the U.S. Food and Drug Administration. Test Performed by: [place] [address] Final Cigar And Box Examiner: Bautista Sesay Ph.D.; CLIA# [id number] Blood Venipuncture / Unknown 11/20/2024 8:03 AM CDT 11/20/2024 8:03 AM CDT us Raffy Mcdaniel MD LAB SEND OUT GENETIC Fin al Result [facility] * (ABNORMAL) IRON,TRANSFERN,CALC.TIBC,%SAT (11/05/2024 3:15 PM CDT) IRON 41 25 - 156 mcg/dL 11/05/2024 4:12 PM CDT [facility] TRANSFERRIN 323 180 - 382 mg/dL 11/05/2024 4:12 PM CDT [facility] TIBC, CALCULATED 404 265 - 497 mcg/dL 11/05/2024 4:12 PM CDT [facility] % SATURATION * 10(L) 15 - 62 % 11/05/2024 4:12 PM CDT [facility] Blood Venipuncture / Unknown 11/05/2024 3:15 PM CDT 11/05/2024 3:15 PM CDT Raffy Mcdaniel MD CHEMISTRY ORDERABLES Fin al Result Performing Organization Address City/[facility]/ZIP Co de Phone Number [facility] [address] [place] [address] * (ABNORMAL) ERYTHROPOIETIN, SERUM, EPO (11/05/2024 3:15 PM CDT) Pathologist [facility] ERYTHROPOIETIN, SERUM 23.0(H) 2.6 - 18.5 mIU/mL 11/08/2024 2:10 PM CDT [facility] Comment: Test Performed by: [place] [address] Final Cigar And Box Examiner: Bautista Sesay Ph.D.; CLIA# [id number] Blood Venipuncture / Unknown 11/05/2024 3:15 PM CDT 11/05/2024 3:15 PM CDT Raffy Mcdaniel MD LAB SEND OUTS Final Re sult [facility] * (ABNORMAL) CBC WITH AUTO DIFFERENTIAL (11/05/2024 3:15 PM CDT) Pathologist [facility] WBC 8.92 4.00 - 12.00 10(3)/mcL 11/05/2024 3:53 PM CDT [facility] RBC 5.17 3.80 - 5.30 10(6)/[facility] 11/05/2024 3:53 PM CDT [facility] HEMOGLOBIN (HGB) 13.4 12.0 - 15.8 g/dL 11/05/2024 3:53 PM CDT [facility] HEMATOCRIT (HCT) 41.7 36.0 - 47.0 % 11/05/2024 3:53 PM CDT [facility] MCV 80.7(L) 82.0 - 96.0 fL 11/05/2024 3:53 PM CDT [facility] MCH 25.9(L) 26.0 - 34.0 pg 11/05/2024 3:53 PM CDT [facility] MCHC 32.1 31.0 - 36.0 g/dL 11/05/2024 3:53 PM CDT [facility] PLATELET COUNT 338 140 - 440 10(3)/[facility] 11/05/2024 3:53 PM CDT [facility] RDW 12.8 11.8 - 15.5 % 11/05/2024 3:53 PM CDT [facility] MPV 8.7(L) 9.7 - 12.4 fL 11/05/2024 3:53 PM CDT [facility] NEUTROPHILS 67.2 47.0 - 73.0 % 11/05/2024 3:53 PM CDT [facility] LYMPHOCYTES 25.9 18.0 - 42.0 % 11/05/2024 3:53 PM CDT [facility] MONOCYTES 5.6 4.0 - 12.0 % 11/05/2024 3:53 PM CDT [facility] EOSINOPHILS 0.9 0.0 - 5.0 % 11/05/2024 3:53 PM CDT [facility] BASOPHILS 0.4 0.0 - 1.0 % 11/05/2024 3:53 PM CDT [facility] ABSOLUTE NEUTROPHILS 5.99 1.60 - 7.70 10(3)/mcL 11/05/2024 3:53 PM CDT [facility] ABSOLUTE LYMPHOCYTES 2.31 1.30 - 3.20 10(3)/mcL 11/05/2024 3:53 PM CDT [facility] ABSOLUTE MONOCYTES 0.50 0.20 - 1.00 10(3)/[facility] 11/05/2024 3:53 PM CDT [facility] ABSOLUTE EOSINOPHIL 0.08 0.00 - 0.40 10(3)/mcL 11/05/2024 3:53 PM CDT [facility] ABSOLUTE BASOPHILS 0.04 0.00 - 0.10 10(3)/[facility] 11/05/2024 3:53 PM CDT [facility] NRBC PER 100 WBC 0 11/06/19 3:53 PM CDT [facility] Blood Venipuncture / Unknown 11/05/2024 3:15 PM CDT 11/05/2024 3:15 PM CDT Raffy Mcdaniel MD HEMATOLOGY ORDERABLES Fi nal Result [facility] [address] [place] [address] * (ABNORMAL) VITAMIN B12 (11/05/2024 3:15 PM CDT) VITAMIN B12 856(H) 213 - 816 pg/mL 11/05/2024 4:42 PM CDT [facility] Blood Venipuncture / Unknown 11/05/2024 3:15 PM CDT 11/05/2024 3:15 PM CDT Raffy Mcdaniel MD CHEMISTRY ORDERABLES Fin al Result [facility] [address] [place] [address] * (ABNORMAL) ERYTHROCYTE SEDIMENTATION RATE (ESR) (11/05/2024 3:15 PM CDT) Pathologist [facility] ESR (SED RATE, ERYTHROCYTE SEDIMENTATION RATE) 35(H) <20 mm/h 11/05/2024 4:01 PM CDT [facility] Comment: Patients presenting with increased level of fibrinogen, gamma globulins, or abnormally shaped RBCs could affect the results for the erythrocyte sedimentation rate (ESR). Results should be clinically correlated. Blood Venipuncture / Unknown 11/05/2024 3:15 PM CDT 11/05/2024 3:15 PM CDT Raffy Mcdaniel MD HEMATOLOGY ORDERABLES Fi nal Result Performing Organization Address [facility] Co de Phone Number [facility] [address] [place] [address] * RHEUMATOID FACTOR (RFQT) QUANT (11/05/2024 3:15 PM CDT) [facility] [address] RHEUMATOID FACTOR QT 20 <30 IU/mL 11/05/2024 4:15 PM CDT [facility] Blood Venipuncture / Unknown 11/05/2024 3:15 PM CDT 11/05/2024 3:15 PM CDT Narrative [facility] - 11/05/2024 4:15 PM CDT RHEUMATOID [...] ORDERABLES Fin al Result Performing Organization Address [facility] Co de Phone Number [facility] [address] [place] [address] * RETICULOCYTE COUNT (RETIC) (11/05/2024 3:15 PM CDT) Pathologist [facility] RETICULOCYTES 1.3 0.5 - 2.0 % 11/05/2024 3:53 PM CDT [facility] Blood Venipuncture / Unknown 11/05/2024 3:15 PM CDT 11/05/2024 3:15 PM CDT Raffy Mcdaniel MD HEMATOLOGY ORDERABLES Fi nal Result Performing Organization Address City/[facility]/ZIP Co de Phone Number [facility] [address] [place] [address] * FERRITIN (11/05/2024 3:15 PM CDT) [facility] [address] FERRITIN 12 5 - 204 ng/mL 11/05/2024 4:29 PM CDT [facility] Blood Venipuncture / Unknown 11/05/2024 3:15 PM CDT 11/05/2024 3:15 PM CDT Raffy Mcdaniel MD CHEMISTRY ORDERABLES Fin al Result Performing Organization Address [facility] Co de Phone Number [facility] [address] [place] [address] * ROSALINDA SCREEN MULTIPLEX W/REFLEX HEAVEN (11/05/2024 3:15 PM CDT) [facility] [address] ROSALINDA SCR MULTIPLEX Negative Negative, See comment 11/05/2024 10:40 PM CDT [facility] Blood Venipuncture / Unknown 11/05/2024 3:15 PM CDT 11/05/2024 3:15 PM CDT Narrative [facility] - 11/05/2024 10:40 PM CDT Antibody testing was performed by multiplex flow immunoassay on the Vuzit platform. Raffy Mdcaniel MD IMMUNOLOGY ORDERABLES Fi nal Result Performing Organization Address City/[facility]/ZIP Co de Phone Number [facility] [address] [place] [address], [place] from Last 3 Months Insurance MEDICARE Care Teams Date Pitter Relationship Specialty Start Date End Date Ira Metz APRN, FLUID DYNAMICIST [address] [place] [address] [address] [place] [address] PCP - General Advanced Practice Nurse 08/14/24 Suly Alfonso MD [address] [place] [address] Obstetrics & Gynecology 11/05/24
--- OUTSIDE RECORDS SUMMARY | 2025-01-28 20:52 | XMS_ITS | Clinical Summary ---
Author Organization [facility] [employer] Address [address] [place] [address] Care Team Providers Care Biochemistry Specialist Name Role Phone Bernadine Dionciio Arnel Primary Care Provider [phone] Source Comments [facility],non-owned Affiliates and Associated Physician Practices is amultiple site organization consisting of ambulatory clinics and hospital sitesin [place], [place], [place] and [place]. This disclosure is being madepursuant to the Care Everywhere program and may not contain all information available regarding this patient. 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 Insurance [place]IC[place] [address] [place] SELF PAY NO INSURANCE Member Subscriber Plan / Payer (Ef fective for All Dates) Name:Vera Parker Member ID:Not on file Relation to Subscriber:Not on file Name:VERA PARKER Subscriber ID:Not on file Address: [address] [place] [address] Payer ID:Not on file Group ID:Not on file Type:Self Pay Address: [place], [place] MEDICARE SELF PAY NO INSURANCE Member Subscriber Plan / Payer (Ef fective for All Dates) Name:Vera Parker Member ID:Not on file Relation to Subscriber:Not on file Name:VERA PARKER Subscriber ID:Not on file Address: [address] [place] [address] Payer ID:Not on file Group ID:Not on file Type:Self Pay Address: [place], [place] MEDICARE Member Subscriber Plan / Payer (Ef fective for All Dates) Name:Vera Parker Member ID:[id number] Relation to Subscriber:Self Name:Vera Parker Subscriber ID:[id number] Payer ID:Not on file Group ID:Not on file Type:Medicare Address: [address] SELF PAY NO INSURANCE Member Subscriber Plan / Payer (Ef fective for All Dates) Name:Vera Parker Member ID:Not on file Relation to Subscriber:Not on file Name:VERA PARKER Subscriber ID:Not on file Address: [address] [place] [address] Payer ID:Not on file Group ID:Not on file Type:Self Pay Address: [place], [place] * Guarantor: VERA PARKER Account Type Relation to Patient Date of Phone Billing Address Personal/Family [address] [place] [address] MEDICARE SELF PAY NO INSURANCE Member Subscriber Plan / Payer (Ef fective for All Dates) Name:Vera Parker Member ID:Not on file Relation to Subscriber:Not on file Name:VERA PARKER Subscriber ID:Not on file Address: [address] [place] [address] Payer ID:Not on file Group ID:Not on file Type:Self Pay Address: [place], [place] * Guarantor: VERA PARKER Account Type Relation to Patient Date of Phone Billing Address Personal/Family [address] [place] [address] MEDICARE Member Subscriber Plan / Payer (Ef fective for All Dates) Name:Vera Parker Member ID:[id number] Relation to Subscriber:Self Name:Vera Parker Subscriber ID:[id number] Payer ID:Not on file Group ID:Not on file Type:Medicare Address: [place] [phone] SELF PAY NO INSURANCE Member Subscriber Plan / Payer (Ef fective for All Dates) Name:Vera Parker Member ID:Not on file Relation to Subscriber:Not on file Name:VERA PARKER Subscriber ID:Not on file Address: [address] [place] [address] Payer ID:Not on file Group ID:Not on file Type:Self Pay Address: [place], [place] * Guarantor: VERA PARKER Account Type Relation to Patient Date of Phone Billing Address Personal/Family [address] [place] [address] MEDICARE SELF PAY NO INSURANCE Member Subscriber Plan / Payer (Ef fective for All Dates) Name:Vera Parker Member ID:Not on file Relation to Subscriber:Not on file Name:VERA PARKER Subscriber ID:Not on file Address: [address] [place] [address] Payer ID:Not on file Group ID:Not on file Type:Self Pay Address: [place], [place] Advance Directives * Full Code (Latest Code Status on File) Date Activated Date Inactivated Comments 08/22/2010 10:42 AM 08/22/2010 11:57 PM * Full Code Date Activated Date Inactivated Comments 02/14/2010 1:50 PM 02/17/2010 5:57 AM * Full Code Date Activated Date Inactivated Comments 02/11/2010 8:28 PM 02/14/2010 1:50 PM Care Teams Biochemistry Specialist Relationship Specialty Start Date End Date Dionicio Colindres DO [address] [place] [id number] PCP - General Family Medicine 01/03/18
--- OUTSIDE RECORDS SUMMARY | 2025-01-28 20:52 | XMS_ITS | Continuity of Care Document ---
Author Organization [facility] Address [address] [place] [address] Phone Care Team Providers Care Agile Business Analyst Name Role Phone Amisha Barber Unavailable Unavailabl [...] Procedures Procedure Date ROUTINE VENIPUNCTURE May-30-2023 OFFICE FWAWA-QSC-OQWAYUML SYST BP LT 130 MM HG DIAST BP < 80 MM HG OFFICE TODRS-DSH-UQZQGLOL SYST BP LT 130 MM HG DIAST BP < 80 MM HG OFFICE YQWQI-ADA-FIOTVWZX SYST BP LT 130 MM HG DIAST BP < 80 MM HG Pt inelig neg scrn depres SCREENING FOR PAP (OBTAINING SPECIMEN) N OFFICE SYCWE-DJJ-BWGAUEFD SYST BP LT 130 MM HG DIAST BP < 80 MM HG OFFICE QVMIA-KVF-XZRWXDPU SYST BP LT 130 MM HG DIAST BP < 80 MM HG ANTINUCLEAR ANTIBODIES (ROSALINDA) C-REACTIVE PROTEIN (CRP) CBC, INC PLATELETS AND DIFFERENTIAL COMPREHEN METABOLIC PANEL CMP LIPID PANEL RHEUMATOID FACTOR: QN RBC SED RATE, AUTOMATED THYROID STIMULATION HORMONE(TSH) ROUTINE VENIPUNCTURE OFFICE GIRYJ-OWG-KZDWBGWV SYST BP LT 130 MM HG DIAST BP 80-89 MM HG CBC, INC PLATELETS AND DIFFERENTIAL COMPREHEN METABOLIC PANEL CMP HEMOGLOBIN A1C HGA1C, GLYCO HIV-1 AG W/HIV-1 & HIV-2 AB RBC SED RATE, AUTOMATED THYROID STIMULATION HORMONE(TSH) 2020 URINALYSIS, DIPSTICK (UA) - Office Lab O ROUTINE VENIPUNCTURE OFFICE RHXGQ-FFI-QZPZXRAY SYST BP LT 130 MM HG DIAST BP < 80 MM HG ANTINUCLEAR ANTIBODIES (ROSALINDA) RHEUMATOID FACTOR: QN No Show Appt Charge No Show Appt Charge OFFICE WIDUF-VTT-LMUVTNBT SYST BP GE 130 - 139MM HG DIAST BP 80-89 MM HG OFFICE AQAWC-YRS-YSHXEMHR SYST BP LT 130 MM HG DIAST [...] Diagnoses Date Provider Providers Copied on Encounter [facility], [address], [place], [place], [address] , tel:[phone] [place] No Information 3 Gorge Lion. [address] [place], [place], [address], . tel:[phone] [facility], [address], [place], [place], [address] , tel:[phone] [facility] No Information 3 Gorge Lion. [address] [place], [place], [address], . tel:[phone] [facility], [address], [place], [place], [address] , tel:[phone] [facility] No Information 3 Bernadine Rashid. [address] [place], [place], [address], . tel:[phone] [facility], [address], [place], [place], [address] , tel:[phone] [place] No Information 3 Gorge Lion. [address], [place], [place], [address], [place]. tel:[phone] [facility], [address], [place], [place], [address] , tel: [phone] [place] mmp (chief complaint) Body mass index [BMI] 32.0-32.9, adultArthralgia of multiple sitesEnlarged lymph nodesSpleen enlarged 3 Gorge Lion. [address], [place], [place], [address], [place]. tel:[phone] Referring Provider: Matthieu Campbell, [address], [place], [address]. tel:[phone] [facility]ICE [facility], [address], [place], [place], [address] , [place] tel: [phone] [place] Patient encounter (chief complaint) Arthralgia of multiple sitesRheumatoid factor positiveSpleen enlargedEnlarge d lymph nodes 3 Wendy Jimenez. [address], [place], [place], [address], [place]. tel:[phone] Referring Provider: Matthieu Campbell, [address], [place], [address]. [phone] OFFICE [facility], [address], [place], [place], [address] , [place] tel: [phone] [place] Patient encounter (chief complaint) Chronic right-sided low back pain with right-sided sciatica 3 Wendy Jimenez. [address], [place], [place], [address], [place]. tel:[phone] Referring Provider: Matthieu Campbell, [address], [place], [address]. [phone] OFFICE LGNSB-EUZ-HN [facility] [address], [place], [place], [address] , [place] tel:[phone] Bernadine mmp (chief complaint) Cervical cancer screeningBlurre d vision, bilateralLow serum iron 2 Gorge Lion. [address], [place], [place], [address], [place]. tel:[phone] Referring Provider: Matthieu Campbell, [facility] B, [place], [address]. tel:[phone] OFFICE [facility], [address], [place], [place], [address] , [place] [phone] Bernadine Patient encounter (chief complaint) Acute right-sided low back pain with right-sided sciaticaMuscle spasm 2 Wendy Jimenez. [address], [place], [place], [address], [place]. tel:[phone] Referring Provider: Matthieu Campbell, [address] [place] [address] B, [place], [address]. tel:[phone] OFFICE [facility], [address], [place], [place], [address] , [place] tel:[phone] [facility] Patient encounter (chief complaint) Arthralgia of multiple sitesRheumatoid factor positivePeriumb ilical abdominal painSpleen enlargedLipid screening 2 Gorge Lion. [address] [place], [place], [address], [place]. tel:[phone] Referring Provider: Matthieu Campbell, [address] [place] [address] B, [place], [address]. tel:[phone] OFFICE [facility], [address], [place], [place], [address] , [place] tel:[phone] [place] mmp (chief complaint) Periumbilical abdominal painCyst of right ovaryUnintentio nal weight lossPCB (post coital bleeding)Spleen enlargedElevate d sed rate 1 Gorge Amisha. [address] [facility] [place] [place], [address], . tel:[phone] Referring Provider: Matthieu Campbell, [address] [facility] [address], [place], [address]. tel:[phone] [facility], [address], [place], [place], [address] , [place] tel:[phone] [place] No Information 0 Adrian Sommers. [address] [facility] [address], [place], [place], [address], [place]. tel:[phone] Referring Provider: Matthieu Campbell, [address] [facility] [address], [place], [address]. tel:[phone] [facility], [address], [place], [place], [address] , [place] tel: [phone] [place] No Information 9 Adrian Sommers. [address] [facility] [address], [place], [place], [address], [place]. tel:[phone] Referring Provider: Matthieu Campbell, [address] [place] [address] B, [place], [address]. [phone] OFFICE PJDQU-TGS-ZJ [facility], [address], [place], [place], [address] , [place] tel:[phone] [place] Chronic Conditions (chief complaint)M MP (chief complaint) Bipolar disorder, unspecifiedMigr vitaly, unspecified, not intractable, without status migrainosusRigh t hip pain 9 Adrian Sommers. [address] [facility] [place], [place], [address], [place]. tel:[phone] Referring Provider: Matthieu Campbell, [address] [facility] [address], [place], [address]. [phone] OFFICE [facility]HT[facility], [address], [place], [place], [address] , [place] tel: [phone] [facility] (chief complaint) Migraine, unspecified, not intractable, without status migrainosusBipo lar 1 disorderHeart murmur 9 Adrian Sommers. [address] [facility] [address], [place], [place], [address], . tel:[phone] Referring Provider: Matthieu Campbell, [address] [facility] [address], [place], [address]. tel:[phone] [facility], [address], [place], [place], [address] , [place] tel: [phone] [facility] (chief complaint) Heart murmurColloid cyst of brainBipolar 1 disorderInconti nence of feces, unspecified fecal incontinence typeMigraine, unspecified, not intractable, without status migrainosus Jan- 9 Adrian Sommers. [address] [facility] [address], [place], [place], [address], . tel:[phone] Referring Provider: Matthieu Campbell, [address] [facility] [address], [place], [address]. tel:[phone] [facility], [address], [place], [place], [address] , [place] tel: [phone] [place] Chronic Conditions (chief complaint) Generalized anxiety disorderMorbid (severe) obesity due to excess caloriesEncount er for general adult medical examination without abnormal findingsMigrain e, unspecified, not intractable, without status migrainosusPoly cystic ovarian syndromeInterve rtebral disc disorders with radiculopathy, lumbar regionOther fatigueMajor depressive disorder, single episode, unspecified 9 Adrian Sommers. [address] [facility] [address], [place], [place], [address], . tel:[phone] Referring Provider: Matthieu Campbell, [address] [facility] [address], [place], [address]. tel:[phone] [facility], [address], [place], [place], [address] , [place] tel: [phone] [facility] (chief complaint) Intractable migraine without aura and with status migrainosusSnor ing Adrian Sommers. [address] [place] [address], [address], [place]. tel:[phone] Referring Provider: Matthieu Campbell, [address] [place] [address], [place], [address]. tel:[phone] [facility], [address], [place], [place], [address] , [place] tel: [phone] [facility] (chief complaint) CLOTILDE (generalized anxiety disorder)Bulgin g of lumbar intervertebral disc Eden Hilda. [address] [place] [address], [address]. tel:[phone] Referring Provider: Rachid Seals, [address] [place] [address], [address]. tel:[phone] [facility] [address], [place], [place], [address] , [place] tel: [phone] [facility] follow up (chief complaint) Colloid cyst of brainBipolar depressionLumba r disc herniation with radiculopathyMu rmur, cardiac Eden Hilda. [address] [place] [address], [address]. tel:[phone] Referring Provider: Rachid Seals, [address] [place] [address], [place], [address]. tel:[phone] [facility], [address], [place], [place], [address] , [place] tel: [phone] [facility] 2 week follow up (chief complaint) Fatigue, unspecified typeBipolar depression Eden Hilda. [address] [place] [address], [address]. tel:[phone] Referring Provider: Rachid Seals, [address] [place] [address], [place], [address]. tel:[phone] [facility], [address], [place], [place], [address] , [place] tel: [phone] [facility] follow up/depressi on (chief complaint) Lumbar disc herniation with radiculopathyBi polar depression 7 Eden Hilda. [address] [place], [place], [address]. tel:[phone] Referring Provider: Rachid Seals, [address] [place] [address], [place], [address]. tel:[phone] [facility], [address], [place], [place], [address] , [place] tel: [phone] [place] Lumbar disc herniation with radiculopathyNe oplasm of uncertain behavior of skinDifficulty sleeping 7 Eden Hilda. [address] [place] [address], [address]. tel:[phone] Referring Provider: Rachid Seals, [address] [place] [address], [place], [address]. tel:[phone] [employer] [facility], [address], [place], [place], [address] , [place] tel: [phone] [place] Bipolar depressionAnxie ty10 weeks gestation of 6 Eden Hilda. [facility] [place], [place], [address]. tel:[phone] Referring Provider: Rachid Seals, [address] [place] [address], [place], [address]. tel:[phone] [facility], [address], [place], [place], [address] , [place] tel: [phone] Bernadine Encounter for immunizationMix ed hyperlipidemiaM orbid obesity with body mass index of 40.0-44.9 in adultCervicalgi aAnxietyFamily planning 201 5 Eden Hilda. [facility] [place], [place], [address]. tel:[phone] Referring Provider: Rachid Seals, [address] [facility], [place], [address]. tel:[phone] [facility], [address], [place], [place], [address] , [place] tel: [phone] [facility] Diarrhea Oct-2 7-201 5 Bialecki Eldad. [address] [place] [address], [address], [place]. tel:[phone] [facility], [address], [place], [place], [address] , [place] tel: [phone] [facility] Enlarged thyroidNeck painTenderness of right axillaIrregular menstrual cycle Sep-1 0-201 5 Eden Hilda. [address] [place], [place], [address]. tel:[phone] Referring Provider: Rachid Seals, [address] [place], [address]. tel:[phone] [facility], [address], [place], [place], [address] , [place] tel: [phone] [facility] Diarrhea Sep-0 2-201 5 Bialecki Eldad. [address] [place] [address], [address], [place]. tel:[phone] Referring Provider: Belinda Esqueda, [address] [place] [address], [address]. tel:[phone] [facility], [address], [place], [place], [address] , [place] tel: [phone] [facility] DiarrheaLUQ abdominal pain Alexis-2 1-201 5 Bialecki Eldad. [address] [place] [address], [id number], [place]. tel:[phone] Referring Provider: Belinda Esqueda, [address] [place] [address], [address]. tel:[phone] [facility], [address], [place], [address] , [place] tel: [phone] Bernad[facility] Pain in limb May-0 5 Bernadine Rashid. [address] [facility], [place], [place], [address], . tel:[phone] [facility] [address], [place], [place], [address] , tel: [phone] [facility] Lymphedema of armPain of right upper armHistory of lymph node dissection of right axilla Apr-2 5 Eden Hilda. [address] [place], [place], [address]. tel:[phone] Referring Provider: Rachid Seals, [address] [place] [address], [address]. tel:[phone] [facility] [address], [place], [place], [address] , tel: [phone] Bernadine AmenorrheaAxill lopez lymphadenopathy Bipolar depression Oct-2 5 Eden Hilda. [address] [place], [place], [address]. tel:[phone] Referring Provider: Rachid Seals, [address] [place] [address], [address]. tel:[phone] [facility] [address], [place], [place], [address] , [place] tel: [phone] Bernadine Axillary lymphadenopathy Chronic diarrheaBipolar I disorder, most recent episode (or current) depressed, unspecifiedMorb id obesity with BMI of 40.0-44.9, adult Feb-2 - 5 Eden Hilda. [address] [place], [place], [address]. tel:[phone] Referring Provider: Rachid Seals, [address] [place], [address]. tel:[phone] [facility] [address], [place], [place], [address] , tel: [phone] Bernadine Bipolar I disorder, most recent episode (or current) depressed, unspecifiedPost erior cervical lymphadenopathy Scalp psoriasisAcute frontal sinusitis 0 5 Karey Stevens. [facility] [place], [place], [address]. tel:[phone] Referring Provider: Rachid Seals, [address] [place] [address], [place], [address]. tel:[phone] [facility], [address], [place], [place], [address] , [place] tel:[phone] [facility] DiarrheaAbdomin al pain 2 5 Simonalion Gayegabby. [address] [place], [place], [address], [place]. tel:[phone] Referring Provider: Hilda Wright, [address] [place] [address], [place], [address]. tel:[phone] [facility], [address], [place], [place], [address] , [place] tel:[phone] Bernadine Abdominal painDiarrheaMor bid obesity with BMI of 40.0-44.9, adultBipolar I disorder, most recent episode (or current) depressed, unspecifiedFami ly planning 4 Karey Stevens. [facility] [place], [place], [address]. tel:[phone] Referring Provider: Rachid Seals, [address] [place] [address], [place], [address]. tel:[phone] [facility], [address], [place], [place], [address] , [place] tel:[phone] [facility] DiarrheaAbdomin al painBipolar I disorder, most recent episode (or current) depressed, unspecifiedMorb id obesity with BMI of 40.0-44.9, adultFamily planning 4 Karey Stevens. [address] [place] [address], [address]. tel:[phone] Referring Provider: Rachid Seals, [address] [place] [address], [place], [address]. tel:[phone] [facility], [address], [place], [place], [address] , tel: [phone] Bernadine Mixed hyperlipidemiaL reece-term (current) use of other medicationsMixe d hyperlipidemiaL reece-term (current) use of other medicationsDisp lacement of lumbar intervertebral disc without myelopathyBipol ar I disorder, most recent episode (or current) depressed, unspecified 3 Eden Hilda. [facility] [place], [place], [address]. tel:[phone] Referring Provider: Rachid Seals, [address] [place], [address]. tel:[phone] [employer] [facility], [address], [place], [place], [address] , tel: [phone] Bernadine Lumbar herniated discStool incontinenceBip olar depression 2 Eden Hilda. [facility] [place], [place], [address]. tel:[phone] Referring Provider: Rachid Seals, [address] [facility], [place], [address]. tel:[phone] [facility], [address], [place], [place], [address] , tel:[phone] Bernadine 1 mo follow up (chief complaint) Lumbar pain with radiation down left legBack pain, thoracicBowel incontinence 2 Eden Hilda. [facility] [place], [place], [address]. tel:[phone] Referring Provider: Rachid Seals, [address] [place], [address]. tel:[phone] [facility], [address], [place], [place], [address] , tel:[phone] Bernadine back pain (chief complaint)a menorrhea (chief complaint) AmenorrheaBack painMorbid obesityElevated blood pressure reading without diagnosis of hypertension 2 Eden Hilda. [address] [facility], [place], [place], [address]. tel:[phone] Referring Provider: Rachid Seals, [address] [facility], [place], [address]. tel:[phone] [employer], [address], [place], [place], [address] , [place] tel: [phone] [facility] NATRL FAM PLN-AVOID PREGTOBACCO USE DISORDER Nov- 0 Bernadine Rashid. [address] [facility], [place], [place], [address], [place]. tel:[phone] [facility], [address], [place], [place], [address] , [place] tel: [phone] [facility] HAIR DISEASES NEC 0 Karey Stevens. [address] [facility], [place], [place], [address]. tel:[phone] [employer] [facility], [address], [place], [place], [address] , [place] tel: [phone] [place] POLYCYSTIC OVARIES 9 Mahsa Aragon. [address] , [place], [place], [address]. tel:[phone] [facility], [address], [place], [place], [address] , [place] tel: [phone] [facility] MALAISE AND FATIGUE NECMIXED HYPERLIPIDEMIA 9 Bernadine Rashid. [address] [facility], [place], [place], [address], [place]. tel:[phone] [facility], [address], [place], [place], [address] , [place] tel: [phone] [facility] No Information 9 Eden Cindy. [address] [facility], [place], [place], [address]. tel:[phone] [facility], [address], [place], [place], [address] , [place] tel: [phone] Bernad[facility] CHRONIC RHINITIS 9 Karey Stevens. [address] [facility] [address], [place], [place], [address]. tel:[phone] Family History Family Member Type Diagnosis Age [...] Covered green party ID Authoriza tion(s) MEDICARE [id number] MEDICAID [facility] [id number] [place] INACTIVE OUT OF STATE [id number] Social History Type Description Quantity Date Captured [...] Referral Referred To: Carey Partida MD [address] [place], [id number] Ordered: Referrals: Hematology. Carey Partida MD. Evaluation/diagnostic/treatment [...] lymph nodes and enlarged spleen, referred to director of employer services, hasn't been able to get an appointment, [...] ROSALINDA screen in May 2021. Referred to data entry assistant at that time but states they didn't take her insurance and patient didn't follow up. Patient also takes she has abdominal pain, feels like there is a meat wrapper in her abdomen. Reports a constant pain, [...] she had an echocardiogram last year at [facility]. Will try to get those records. [...] at all with the headache.She went to [facility] emergency room on October 22 because of [...] yessi ign colloidal brain tumor removed at [facility] and was discharged about 0ne week ago; [...] adult Labs done in office today. Sees data entry assistant. Tramadol as needed for pain. controlled medication [...] coital bleeding) Follow up in 1-2 wee ga for pap testing and HPV testing. Will [...] to see how your changes have helped. [employer] and other apps can help track calories. [...] amitriptyline for prophylaxis. Provided contact information for [facility] migraine clinic. I think there [...] do nt have her hosp notes from [facility] to know if they worked it up- [...] [facility] since having [facility] for [...] so will give her Dr Saldaña number- [phone] Related to Bipolar depression needs to make [...]
--- OUTSIDE RECORDS SUMMARY | 2025-01-28 20:52 | XMS_ITS | Encounter Summary ---
Author Organization [facility] Address [address] [place] [address] Care Team Providers Care Latex Spooler Name Role Phone Meng King MD Primary Care Provider [phone] Encounter Details Date Type Department Care Team (Latest Contact Info) Description 09/19/2008 Outpatient Historical [facility] Teja Bearden MD NO ADDRESS ON FILE Viral Infection; Tobacco Use Disorder; Encounter for Long-Term (Current) Use of Other Medications; Pure Hypercholesterolemia Social History Tobacco Use Types Packs/Day Years Used Date Smoking Tobacco: Never Assessed Comments Unknown Sex and Gender Information Value Date Recorded Sex Assigned at Not on file Legal Sex 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 [facility] Specimen from throat (specimen) 09/19/2008 2:51 PM KICKBOXING INSTRUCTOR 09/19/2008 7:48 PM KICKBOXING INSTRUCTOR us Teja Nina MD MICROBIOLOGY - GENERAL ORDER LAZ Final Result INTERFACE SYSTEM Refer to clinic/hospital department [facility] CLIA# [id number] [address] [place] [address] documented in this encounter Visit Diagnoses Diagnosis Unspecified viral infection, in conditions classified elsewhere and of unspecified site Tobacco use disorder Encounter for long-term (current) use of other medications Pure hypercholesterolemia documented in this encounter Additional Health Concerns Infection Onset Date Last Indicated Resolved Time COVID-19 08/24/2020 08/24/2020 09/23/2020 1:16 AM KICKBOXING INSTRUCTOR documented as of this encounter Care Teams Latex Spooler Relationship Specialty Start Date End Date Meng King MD [address] [place] [address] PCP - General Family Practice 11/15/23 documented as of this encounter
--- OUTSIDE RECORDS SUMMARY | 2025-01-28 20:52 | XMS_ITS | Encounter Summary ---
Author Organization [facility] Health Address [address] [place] [address] Care Team Providers Care Family Consumer Scientist Name Role Phone Dionicio Colindres Primary Care Provider Encounter Details Date Type Department Care Team (Late st Contact Info) Description 11/15/2022 Lab Requisition [facility] [address] [place] [address] [place] [address] [place] [address] Social History Tobacco Use Types Packs/Day Years Used Date Smoking Tobacco: Former Cigarettes 1 4 1 08/13/2009 - 06/13/2014 Smokeless Tobacco: Never Alcohol Use Standard Drinks/Week Comments Yes 0 (1 standard drink = 0.6 oz pur e alcohol) occasionally Comments No Sex and Gender Information Value Date Recorded Sex Assigned at Not on file Legal Sex Female 5:59 AM POLYMERIZATION ENGINEER Gender Identity Not on file Sexual [...] AM CDT) Case Report Dermatopathology Report Case: [id number] Authorizing Provider: Matthieu Helms MD Collected: 11/14/2022 12:00 AM Ordering Location: [facility] Received: 11/15/2022 09:24 AM [...] characteristic determined by the Dermatopathology Laboratory at [facility], directed by Dr. Karley Astudillo. These tests need not be, and therefore are not, approved by the [place] Food and Drug Administration. The tests are used for clinical purposes. Billing Codes Specimen Charges Stain Charges 54682 1 3 12:37 PM CDT DERMATOPATHOLOGY LABORATORY Embedded Images 3 12:37 PM CDT DERMATOPATHOLOGY LABORATORY Pathology/Cytolog y TISSUE SPECIMEN FROM SKIN / Unknown 11/14/2022 11/15/2022 9:24 AM CDT Matthieu Helms MD LAB - PATHOLOGY/CYTOLOGY O RDERABLES Final Result DERMATOPATHOLOGY LABORATORY [facility] - Department of Dermatology [facility] [address] [place] [address], [address] [phone] documented in this encounter Visit Diagnoses Not on filedocumented in this encounter Additional Health Concerns Infection Onset Date Last Indicated Resolved Time MRSA 09/24/2020 09/24/2020 documented as of this encounter Care Teams Family Consumer Scientist Relationship Specialty Start Date End Date Dionicio Colindres DO [address] [place] [address] PCP - General Family Medicine 01/03/18 documented as of this encounter
--- OUTSIDE RECORDS SUMMARY | 2025-01-28 20:52 | XMS_ITS | Encounter Summary ---
Author Organization [employer] Address [address] [place] [address] Care Team Providers Care Business Intern Name Role Phone Meng King MD Primary Care Provider [phone] Encounter Details Date Type Department Care Team (Late st Contact Info) Description 03/13/2009 Outpatient Historical [facility] Er, Authorized P NO ADDRESS ON FILE Landon Yadav MD [facility] [place] [id number] Threatened , Antepartum; Tobacco Use Disorder Social History Tobacco Use Types Packs/Day Years Used Date Smoking Tobacco: Never Assessed Comments Unknown Sex and Gender Information Value Date Recorded Sex Assigned at Not on file Legal Sex Female 4:09 AM MARBLE AND GRANITE POLISHER Gender Identity Not on file Sexual Orientation [...] CHECK No Historical ABO/Rh [facility] SPECIMEN LIFE 3 days from drawdate [facility] ABO/RH TYPE B Positive [facility] Blood specimen (specimen) 03/13/2009 6:32 PM CDT Landon Yadav MD BLOOD BANK ORDERABLES Edited INTERFACE SYSTEM Refer to clinic/hospital department [facility] CLIA# [id number] [address] [facility] [place], [place] [address] * (ABNORMAL) CBC WITH DIFFERENTIAL (03/13/2009 6:30 PM CDT) Pathologist [facility] PLATELETS 301 140 - 350 K/uL [facility] HEMOGLOBIN 15.7(H) 11.8 - 14.8 g/dL [facility] RDW 13.5 11.5 - 14.5 % [facility] WBC 11.9(H) 4.0 - 9.8 K/uL [facility] MCH 29.7 27.2 - 32.6 pg [facility] MPV 8.9(L) 9.3 - 12.4 fL [facility] HEMATOCRIT 44.6(H) 35.5 - 44.0 % [facility] RDW-STDEV 41.1 37.1 - 48.7 fL [facility] RBC 5.28(H) 3.90 - 4.90 M/uL [facility] MCHC 35.2 31.5 - 35.5 % [facility] MCV 84.5 82.0 - 99.0 fL [facility] EOSINOPHILS 1 0 - 7 % [facility] EOSINOPHIL ABSOLUTE 0.17 0.00 - 0.70 K/uL [facility] LYMPHOCYTES 31 16 - 45 % [facility] LYMPHOCYTE ABSOLUTE 3.69 0.70 - 4.50 K/uL [facility] BASOPHILS 0 0 - 2 % [facility] BASOPHILS ABSOLUTE 0.03 0.00 - 0.20 K/uL [facility] MONOCYTES 6 3 - 13 % [facility] MONOCYTE ABSOLUTE 0.66 0.10 - 1.30 K/uL [facility] NEUTROPHILS 62 45 - 70 % [facility] NEUTROPHIL ABSOLUTE 7.36(H) 1.90 - 7.00 K/uL [facility] Blood specimen (specimen) 03/13/2009 6:30 PM CDT 03/13/2009 6:40 PM CDT Landon Yadav MD HEMATOLOGY ORDERABLES Edited [facility] CLIA# [id number] [address] [facility] [place] [address] * (ABNORMAL) HCG QUANTITATIVE, BLOOD (03/13/2009 6:30 PM CDT) HCG QUANT, BLOOD 39(H) 0 - 5 mIU/mL [facility] Comment: Result of 5 - 25 [...] MD CHEMISTRY ORDERABLES Edited [facility] CLIA# [id number] [address] [facility] [place] [address] documented in this encounter Visit Diagnoses Diagnosis Threatened , antepartum Tobacco use disorder documented in this encounter Additional Health Concerns Infection Onset Date Last Indicated Resolved Time COVID-19 08/24/2020 08/24/2020 09/23/2020 1:16 AM MARBLE AND GRANITE POLISHER documented as of this encounter Care Teams Business Intern Relationship Specialty Start Date End Date Meng King MD [address] [place] [address] PCP - General Family Practice 11/15/23 documented as of this encounter
--- OUTSIDE RECORDS SUMMARY | 2025-01-28 20:52 | XMS_ITS | Clinical Summary ---
Author Organization [facility] Address [address] [place] [address] Care Team Providers Care Malt House Operator Name Role Phone Meng King MD Primary Care Provider [phone] Allergies Active Allergy Reactions Criticality Noted Date [...] on file Legal Sex Female 4:09 AM RESERVE OPERATOR Gender Identity Not on file Sexual [...] Insurance MEDICARE PART A AND B MEDICAID [place] RX AETNA Medicare Part D RX INFOCROSSING Medicaid RX AETNA Medicare Part D MEDICARE MEDICARE PART A AND B MEDICARE PART A AND B Advance Directives For more information, please contact: [phone] * Full Code (Latest Code Status on [...] 11:37 AM 09/13/2016 5:31 PM Care Teams Malt House Operator Relationship Specialty Start Date End Date Meng King MD [address] [place] [phone] PCP - General Family Practice 11/15/23
--- OUTSIDE RECORDS SUMMARY | 2025-01-28 20:52 | XMS_ITS | Continuity of Care Document ---
Author Organization [facility] Address [address] [place] [address] Phone Care Team Providers Care Television Newscast Director Name Role Phone Unavailable Unavailable Unavailable Advance Directives Directive Yes / No Effective Date File Name No Information Encounters Encounter Description Practice Location Reason(s) For Visit Diagnoses Date Provider Providers Copied on Encounter [facility], [address] [facility], [place], [place], [id number], tel:[phone] [facility] OUT[facility]IENT No Information No Information Referring Provider: JERICA Velasquez, [address] [place], [address]. tel:[phone] Family History Family Member Type Diagnosis Age At Onset No Information Payers Payer name Insurance type Covered republican ID Authoriza tion(s) [employer] MEDICARE PART B INDEMNITY [id number] [facility] INDEMNITY [id number] Social History Type Description Quantity Date Captured Comments Sex Female Smoking Status No Information Chief Complaint And Reason For Visit No Information History Of Present Illness Encounter Date Complaint History Of Prese nt Illness No Information Instructions Date Instruction Additional Infor mation No Information Assessments Type Assessment Date No Information
--- OUTSIDE RECORDS SUMMARY | 2025-01-28 20:52 | XMS_ITS | Encounter Summary ---
Author Organization [employer] Address [address] [place] [address] Care Team Providers Care Manager Car Name Role Phone Meng King MD Primary Care Provider [phone] Encounter Details Date Type Department Care Team (Late st Contact Info) Description 09/29/2008 Outpatient Historical [facility] [place] [address] [place] [phone] Social History Tobacco Use Types Packs/Day Years Used Date Smoking Tobacco: Never Assessed Comments Unknown Sex and Gender Information Value Date Recorded Sex Assigned at Not on file Legal Sex Female 4:09 AM SALES PROGRAM COORDINATOR Gender Identity Not on file Sexual Orientation Not on file documented as of this encounter Plan of Treatment Not on file documented as of this encounter Procedures Procedure Name Priority Date/Time Associated Diagnosis Comments CBC WITH DIFFERENTIAL Routine 09/29/2008 11:19 AM SALES PROGRAM COORDINATOR HCG QUANTITATIVE, BLOOD Routine 09/29/2008 11:19 AM SALES PROGRAM COORDINATOR documented in this encounter Results * (ABNORMAL) CBC WITH DIFFERENTIAL (09/29/2008 11:19 AM SALES PROGRAM COORDINATOR) HEMATOCRIT 44.3(H) 35.5 - 44.0 % [facility] LAB NEUTROPHILS 57 45 - 70 % [facility] NEUTROPHIL ABSOLUTE 5.19 1.90 - 7.00 K/uL [facility] EOSINOPHILS 2 0 - 7 % [facility] EOSINOPHIL ABSOLUTE 0.16 0.00 - 0.70 K/uL [facility] LYMPHOCYTES 35 16 - 45 % [facility] LYMPHOCYTE ABSOLUTE 3.21 0.70 - 4.50 K/uL [facility] Blood specimen (specimen) 09/29/2008 11:19 AM SALES PROGRAM COORDINATOR 09/29/2008 4:51 PM SALES PROGRAM COORDINATOR us Brando Dupont Mai, MD HEMATOLOGY ORDERABLES Edited INTERFACE SYSTEM Refer to clinic/hospital department [facility] CLIA# [id number] [address] [place] [address] * HCG QUANTITATIVE, BLOOD (09/29/2008 11:19 AM SALES PROGRAM COORDINATOR) HCG QUANT, BLOOD <5 0 - 5 [...] evidence. Blood specimen (specimen) 09/29/2008 11:19 AM SALES PROGRAM COORDINATOR 09/29/2008 4:51 PM SALES PROGRAM COORDINATOR Brando Dupont Mai, MD CHEMISTRY ORDERABLES Edited INTERFACE SYSTEM Refer to clinic/hospital department [facility] CLIA# [id number] [address] [place] [address] documented in this encounter Visit Diagnoses Not on filedocumented in this encounter Additional Health Concerns Infection Onset Date Last Indicated Resolved Time COVID-19 08/24/2020 08/24/2020 09/23/2020 1:16 AM SALES PROGRAM COORDINATOR documented as of this encounter Care Teams Manager Car Relationship Specialty Start Date End Date Meng King MD [address] [place] [address] PCP - General Family Practice 11/15/23 documented as of this encounter
--- OUTSIDE RECORDS SUMMARY | 2025-01-28 20:52 | XMS_ITS | Clinical Summary ---
Author Organization [facility] Address [address] [place] [address] Care Team Providers Care Supervisor Frame Assembly Name Role Phone Daisha Staley MD Primary [...] 07/25/2023 Assessment & Plan (09/17/2023 2:32 PM GROUP THERAPIST): Unable to tolerate bupropion, discussed possibly starting chantix vs gum/patches, she plans to try patches. Assessment & Plan (07/25/2023 9:24 AM GROUP THERAPIST): We discussed the risks of smoking including cardiovascular disease, pulmonary disease, osteoporosis and cancer risks. We talked about reducing risks through smoking cessation. We reviewed approaches to quitting smoking including behavioral changes; nicotine replacement with gums, patches, lozenges; medications such as buproprion or chantix. I also gave resources such as [facility] smoking cessation clinic and 4-356-PULK-NOW for additional support. I spent 4 minutes discussing smoking and smoking cessation. Rx for bupropion sent. Chlamydia contact 03/26/2023 Psoriatic arthritis 02/20/2023 Assessment & Plan (07/25/2023 9:24 AM GROUP THERAPIST): Patient transitioning care to [facility], had been on steroids and leflunomide, stopped on her own, feels her symptoms are stable. Will refer to rheumatology. Assessment & Plan (02/20/2023 1:57 PM CDT): Follows with rheumatology. Stable. History of gestational diabetes 02/20/2023 Lymphadenopathy 02/20/2023 Assessment & Plan (07/25/2023 9:25 AM GROUP THERAPIST): Has had lymph node dissection in the past, with benign pathology, notes worsening again, especially since off steroids. Will refer to hematology for further evaluation. Assessment & Plan (02/20/2023 1:57 PM CDT): Has had lymph node dissection in the past, with benign pathology. Has follow up with hematology scheduled. Will monitor. Lumbar disc herniation with radiculopathy 2016 Assessment & Plan (09/17/2023 2:31 PM GROUP THERAPIST): Patient currently taking tramadol daily as well [...] on file Legal Sex Female 4:23 PM GROUP THERAPIST Gender Identity Not on file Sexual Orientation Not on file Obstetrics History Last Filed Vital Signs Vital Sign Reading Time Taken Comments Blood Pressure 120/80 09/17/2023 9:43 AM GROUP THERAPIST Pulse 88 09/17/2023 9:43 AM GROUP THERAPIST Temperature - - Respiratory Rate - - Oxygen Saturation 98% 09/17/2023 9:43 AM GROUP THERAPIST Inhaled Oxygen Concentration - - Weight 97.5 kg (214 lb 14.4 oz) 09/17/2023 9:43 AM GROUP THERAPIST Height 167.6 cm (5' 6) 09/17/2023 9:43 AM GROUP THERAPIST Body Mass Index 34.69 09/17/2023 9:43 AM GROUP THERAPIST Plan of Treatment Health Maintenance Due Date [...] to complete this topic Insurance MEDICARE MEDICARE [place] [employer] Care Teams Supervisor Frame Assembly Relationship Specialty Start Date End Date Daisha Staley MD [facility] [address] Brett MON [address] [place] [address] PCP - General Internal Medicine 02/06/23
== END 2025-01-28 21:05 | disposition left against medical advice (07) ==
LOC: ANHED 20:50
PROVIDERS: Emergency Provider Physician Assistant; PCP Nurse Practitioner Family
DX: S39.012A Strain of muscle, fascia and tendon of lower back, initial encounter (principal); R20.2 Paresthesia of skin; X58.XXXA Exposure to other specified factors, initial encounter; M81.0 Age-related osteoporosis without current pathological fracture; Q76.0 Spina bifida occulta; Z86.011 Personal history of benign neoplasm of the brain; F17.290 Nicotine dependence, other tobacco product, uncomplicated
CPT/HCPCS: 72131; 93970; 99284

== ENCOUNTER 2025-04-13 13:54 | Emergency (ER) | payer MEDICARE, SELFPAY ==
--- OUTSIDE RECORDS SUMMARY | 2016-09-10 18:00 | XMS_ITS | Continuity of Care Document ---
Author Organization [facility] Address [address] [place] [address] Phone Care Team Providers Care Music Minister Name Role Phone Unavailable Unavailable Unavailable Advance Directives Directive Yes / No Effective Date File Name No Information Encounters Encounter Description Practice Location Reason(s) For Visit Diagnoses Date Provider Providers Copied on Encounter [facility], [address] [facility], [place], [place], [id number], tel:[phone] [facility] No Information No Information Referring Provider: JERICA Velasquez, [address] [place], [address]. tel:[phone] Family History Family Member Type Diagnosis Age At Onset No Information Payers Payer name Insurance type Covered democrat ID Authoriza tion(s) [employer] MEDICARE PART B INDEMNITY [id number] [facility] INDEMNITY [id number] Social History Type Description Quantity Date Captured Comments Sex Female Smoking Status No Information Chief Complaint And Reason For Visit No Information History Of Present Illness Encounter Date Complaint History Of Prese nt Illness No Information Instructions Date Instruction Additional Infor mation No Information Assessments Type Assessment Date No Information
--- OUTSIDE RECORDS SUMMARY | 2016-09-10 18:00 | XMS_ITS | Continuity of Care Document ---
Author Organization [facility] Address [address] [place] [address] Phone Care Team Providers Care Pocket Marker Name Role Phone Unavailable Unavailable Unavailable Advance Directives Directive Yes / No Effective Date File Name No Information Encounters Encounter Description Practice Location Reason(s) For Visit Diagnoses Date Provider Providers Copied on Encounter [facility], [address] [facility], [place], [place], [id number], tel:[phone] [facility] No Information No Information Referring Provider: JERICA Velasquez, [address] [place], [address]. tel:[phone] Family History Family Member Type Diagnosis Age At Onset No Information Payers Payer name Insurance type Covered libertarian ID Authoriza tion(s) [employer] MEDICARE PART B INDEMNITY [id number] [facility] INDEMNITY [id number] Social History Type Description Quantity Date Captured Comments Sex Female Smoking Status No Information Chief Complaint And Reason For Visit No Information History Of Present Illness Encounter Date Complaint History Of Prese nt Illness No Information Instructions Date Instruction Additional Infor mation No Information Assessments Type Assessment Date No Information
--- OUTSIDE RECORDS SUMMARY | 2023-07-25 07:29 | XMS_ITS | Continuity of Care Document ---
Author Organization [employer] Address [address] [place] [address] Phone Care Team Providers Care Animal Physiology Teacher Name Role Phone Amisha Barber Unavailable Unavailabl e Allergies, Adverse Reactions, Alerts Substance Reaction Status Criticality No Known Drug Allergies Other Active No I nformation Medications Medication Instructions Dosage Effective Dates (start - stop) Status Comments BETAMETHASONE DP 0.05% CRM APPLY THIN COAT TO AFFECTED AREA(S) TWICE A DAY - Active ONDANSETRON HCL 4 MG TABLET TAKE 1 TABLET BY MOUTH 4 TIMES A DAY NEEDED FOR NAUSEA - Active CYCLOBENZAPRINE 5 MG TABLET TAKE 1 TABLET BY MOUTH UP TO 3 TIMES EVERY DAY NEEDED - Active tramadol 50 mg tablet take 2 tablets by oral route every 6 hours as needed not to exceed 8 tablets per 24hrs - Active ferrous sulfate 325 mg (65 mg iron) tablet take 2 tablet by oral route every day 2 tablet - Active multivitamin tablet take 1 tablet by oral route every week 1 tablet - Active folic acid 1 mg tablet take 1 tablet by oral route every day 1 MG - Active Simponi ARIA 12.5 mg/mL intravenous solution infuse (2MG/KG) by intravenous route every 8 weeks over 2 MG/KG - Active prednisone 10 mg tablet take 3 tablet by oral route every day 30 MG - Active Procedures Procedure Date ROUTINE VENIPUNCTURE May-30-2023 OFFICE [id number] SYST BP LT 130 MM HG DIAST BP < 80 MM HG OFFICE [id number] SYST BP LT 130 MM HG DIAST BP < 80 MM HG OFFICE [id number]-[id number] SYST BP LT 130 MM HG DIAST BP < 80 MM HG Pt inelig neg scrn depres SCREENING FOR PAP (OBTAINING SPECIMEN) N OFFICE GKWVC-KFW-ANAZDWKS SYST BP LT 130 MM HG DIAST BP < 80 MM HG OFFICE [id number] SYST BP LT 130 MM HG DIAST BP < 80 MM HG ANTINUCLEAR ANTIBODIES (ROSALINDA) C-REACTIVE PROTEIN (CRP) CBC, INC PLATELETS AND DIFFERENTIAL COMPREHEN METABOLIC PANEL CMP LIPID PANEL RHEUMATOID FACTOR: QN RBC SED RATE, AUTOMATED THYROID STIMULATION HORMONE(TSH) ROUTINE VENIPUNCTURE OFFICE [id number] SYST BP LT 130 MM HG DIAST BP 80-89 MM HG CBC, INC PLATELETS AND DIFFERENTIAL COMPREHEN METABOLIC PANEL CMP HEMOGLOBIN A1C HGA1C, GLYCO HIV-1 AG W/HIV-1 & HIV-2 AB RBC SED RATE, AUTOMATED THYROID STIMULATION HORMONE(TSH) 2020 URINALYSIS, DIPSTICK (UA) - Office Lab O ROUTINE VENIPUNCTURE OFFICE [id number] SYST BP LT 130 MM HG DIAST BP < 80 MM HG ANTINUCLEAR ANTIBODIES (ROSALINDA) RHEUMATOID FACTOR: QN No Show Appt Charge No Show Appt Charge OFFICE EHOTZ-[id number] SYST BP GE 130 - 139MM HG DIAST BP 80-89 MM HG OFFICE [id number]-AYA-[id number] SYST BP LT 130 MM HG DIAST BP >= 90 MM HG Advance Directives Directive Yes / No Effective Date File Name Life Support Not Answered N/A N/A Intubation Not Answered N/A N/A Antibiotics Not Answered N/A N/A IV Fluid Support Not Answered N/A N/A Tube Feed Not Answered N/A N/A Other Directive N/A N/A WARNING:The information contained in this section is historical and is provided for information only and does not constitute a legal document or any assurance that the information is still accurate. Please verify the information with the cheek of the legal document before using it for clinical purposes. Encounters Encounter Description Practice Location Reason(s) For Visit Diagnoses Date Provider Providers Copied on Encounter [employer], [address], [place], [place], [address] , tel:[phone] [place] No Information 3 Gorge Lion. [address] [place], [place], [address], . tel:[phone] [facility] [facility], [address], [place], [place], [address] , tel:[phone] [facility] No Information 3 Gorge Lion. [address] [place], [place], [address], . tel:[phone] [facility] [facility], [address], [place], [place], [address] , tel:[phone] [facility] No Information 3 Bernadine Rashid. [address] [place], [place], [address], . tel:[phone] [facility] [facility], [address], [place], [place], [address] , tel:[phone] [place] No Information 3 Gorge Lion. [address], [place], [place], [address], [place]. tel:[phone] [facility], [address], [place], [place], [address] , tel: [phone] [place] mmp (chief complaint) Body mass index [BMI] 32.0-32.9, adultArthralgia of multiple sitesEnlarged lymph nodesSpleen enlarged 3 Gorge Lion. [address], [place], [place], [address], [place]. tel:[phone] Referring Provider: Matthieu Campbell, [address], [place], [address]. tel:[phone] [facility]ICE [facility], [address], [place], [place], [address] , [place] tel: [phone] [place] Patient encounter (chief complaint) Arthralgia of multiple sitesRheumatoid factor positiveSpleen enlargedEnlarge d lymph nodes 3 Wendy Jimenez. [address], [place], [place], [address], [place]. tel:[phone] Referring Provider: Matthieu Campbell, [address], [place], [address]. [phone] [facility]ICE [facility], [address], [place], [place], [address] , [place] tel: [phone] [place] Patient encounter (chief complaint) Chronic right-sided low back pain with right-sided sciatica 3 Wendy Jimenez. [address], [place], [place], [address], [place]. tel:[phone] Referring Provider: Matthieu Campbell, [address], [place], [address]. [phone] OFFICE HRZJO-CKR-QE [facility] [address], [place], [place], [address] , [place] tel:[phone] Bern[facility] mmp (chief complaint) Cervical cancer screeningBlurre d vision, bilateralLow serum iron 2 Gorge Lion. [address], [place], [place], [address], [place]. tel:[phone] Referring Provider: Matthieu Campbell, [facility], [place], [address]. tel:[phone] OFFICE [facility], [address], [place], [place], [address] , [place] [phone] Bern[place] Patient encounter (chief complaint) Acute right-sided low back pain with right-sided sciaticaMuscle spasm 2 Wendy Jimenez. [address], [place], [place], [address], [place]. tel:[phone] Referring Provider: Matthieu Campbell, [address] [place] [address] B, [place], [address]. tel:[phone] OFFICE [facility], [address], [place], [place], [address] , [place] tel:[phone] [facility] Patient encounter (chief complaint) Arthralgia of multiple sitesRheumatoid factor positivePeriumb ilical abdominal painSpleen enlargedLipid screening 2 Gorge Lion. [address] [place], [address], [place]. tel:[phone] Referring Provider: Matthieu Campbell, [address] [place] [address] B, [place], [address]. tel:[phone] OFFICE [facility], [address], [place], [place], [address] , [place] tel:[phone] [place] mmp (chief complaint) Periumbilical abdominal painCyst of right ovaryUnintentio nal weight lossPCB (post coital bleeding)Spleen enlargedElevate d sed rate 1 Gorge Amisha. [address] [facility] [place], [address], . tel:[phone] Referring Provider: Matthieu Campbell, [address] [facility] [address], [place], [address]. tel:[phone] [facility], [address], [place], [place], [address] , [place] tel:[phone] [place] No Information 0 Adrian Sommers. [address] [facility] [address], [place], [place], [address], [place]. tel:[phone] Referring Provider: Matthieu Campbell, [address] [facility] [address], [place], [address]. tel:[phone] [facility], [address], [place], [place], [address] , [place] tel: [phone] [place] No Information 9 Adrian Sommers. [address] [facility] [address], [place], [place], [address], [place]. tel:[phone] Referring Provider: Matthieu Campbell, [address] [place] [address] B, [place], [address]. [phone] OFFICE QHVTC-SFA-OD [facility], [address], [place], [place], [address] , [place] tel:[phone] [place] Chronic Conditions (chief complaint)M MP (chief complaint) Bipolar disorder, unspecifiedMigr vitaly, unspecified, not intractable, without status migrainosusRigh t hip pain 9 Adrian Sommers. [address] [facility] [place], [address], [place]. tel:[phone] Referring Provider: Matthieu Campbell, [address] [facility] [address], [place], [address]. [phone] OFFICE [facility]YE[facility]WBJ[facility], [address], [place], [place], [address] , [place] tel: [phone] [facility] (chief complaint) Migraine, unspecified, not intractable, without status migrainosusBipo lar 1 disorderHeart murmur 9 Adrian Sommers. [address] [facility] [address], [place], [place], [address], . tel:[phone] Referring Provider: Matthieu Campbell, [address] [facility] [address], [place], [address]. tel:[phone] [facility], [address], [place], [place], [address] , [place] tel: [phone] [facility] (chief complaint) Heart murmurColloid cyst of brainBipolar 1 disorderInconti nence of feces, unspecified fecal incontinence typeMigraine, unspecified, not intractable, without status migrainosus Jan- 9 Adrian Sommers. [address] [facility] [address], [place], [place], [address], . tel:[phone] Referring Provider: Matthieu Campbell, [address] [facility] [address], [place], [address]. tel:[phone] [employer], [address], [place], [place], [address] , [place] tel: [phone] [place] Chronic Conditions (chief complaint) Generalized anxiety disorderMorbid (severe) obesity due to excess caloriesEncount er for general adult medical examination without abnormal findingsMigrain e, unspecified, not intractable, without status migrainosusPoly cystic ovarian syndromeInterve rtebral disc disorders with radiculopathy, lumbar regionOther fatigueMajor depressive disorder, single episode, unspecified 9 Adrian Sommers. [address] [facility] [address], [place], [place], [address], . tel:[phone] Referring Provider: Matthieu Campbell, [address] [facility] [address], [place], [address]. tel:[phone] [employer], [address], [place], [place], [address] , [place] tel: [phone] [facility] (chief complaint) Intractable migraine without aura and with status migrainosusSnor ing Adrian Sommers. [address] [place] [address], [address], [place]. tel:[phone] Referring Provider: Matthieu Campbell, [address] [place] [address], [place], [address]. tel:[phone] [facility], [address], [place], [place], [address] , [place] tel: [phone] [facility] (chief complaint) CLOTILDE (generalized anxiety disorder)Bulgin g of lumbar intervertebral disc Eden Hilda. [address] [place] [address], [address]. tel:[phone] Referring Provider: Rachid Seals, [address] [place] [address], [address]. tel:[phone] [facility] [address], [place], [place], [address] , [place] tel: [phone] [facility] follow up (chief complaint) Colloid cyst of brainBipolar depressionLumba r disc herniation with radiculopathyMu rmur, cardiac Eden Hilda. [address] [place] [address], [address]. tel:[phone] Referring Provider: Rachid Seals, [address] [place] [address], [place], [address]. tel:[phone] [facility], [address], [place], [place], [address] , [place] tel: [phone] [place] 2 week follow up (chief complaint) Fatigue, unspecified typeBipolar depression Eden Hilda. [address] [place] [address], [address]. tel:[phone] Referring Provider: Rachid Seals, [address] [place] [address], [place], [address]. tel:[phone] [facility], [address], [place], [place], [address] , [place] tel: [phone] [facility] follow up/depressi on (chief complaint) Lumbar disc herniation with radiculopathyBi polar depression 7 Eden Hilda. [address] [place], [place], [address]. tel:[phone] Referring Provider: Rachid Seals, [address] [place] [address], [place], [address]. tel:[phone] [facility], [address], [place], [place], [address] , [place] tel: [phone] [place] Lumbar disc herniation with radiculopathyNe oplasm of uncertain behavior of skinDifficulty sleeping 7 Eden Hilda. [address] [place] [address], [address]. tel:[phone] Referring Provider: Rachid Seals, [address] [place] [address], [place], [address]. tel:[phone] [employer] [facility], [address], [place], [place], [address] , [place] tel: [phone] [place] Bipolar depressionAnxie ty10 weeks gestation of 6 Eden Hilda. [facility] [place], [place], [address]. tel:[phone] Referring Provider: Rachid Seals, [address] [place] [address], [place], [address]. tel:[phone] [facility], [address], [place], [place], [address] , [place] tel: [phone] Bern[facility] Encounter for immunizationMix ed hyperlipidemiaM orbid obesity with body mass index of 40.0-44.9 in adultCervicalgi aAnxietyFamily planning 201 5 Eden Hilda. [facility] [place], [place], [address]. tel:[phone] Referring Provider: Rachid Seals, [address] [facility], [place], [address]. tel:[phone] [facility], [address], [place], [place], [address] , [place] tel: [phone] [facility] Diarrhea Oct-2 7-201 5 Bialecki Eldad. [address] [place] [address], [address], [place]. tel:[phone] [facility], [address], [place], [place], [address] , [place] tel: [phone] [facility] Enlarged thyroidNeck painTenderness of right axillaIrregular menstrual cycle Sep-1 0-201 5 Eden Hilda. [address] [place], [place], [address]. tel:[phone] Referring Provider: Rachid Seals, [address] [place], [address]. tel:[phone] [facility], [address], [place], [place], [address] , [place] tel: [phone] [facility] Diarrhea Sep-0 2-201 5 Bialecki Eldad. [address] [place] [address], [address], [place]. tel:[phone] Referring Provider: Belinda Esqueda, [address] [place] [address], [address]. tel:[phone] [facility], [address], [place], [place], [address] , [place] tel: [phone] [facility] DiarrheaLUQ abdominal pain Alexis-2 1-201 5 Bialecki Eldad. [address] [place] [address], [address], [place]. tel:[phone] Referring Provider: Belinda Esqueda, [address] [place] [address], [address]. tel:[phone] [facility], [address], [place], [place], [address] , [place] tel: [phone] [facility] Pain in limb May-0 5 Bernadine Rashid. [address] [facility], [place], [place], [address], . tel:[phone] [facility] [address], [place], [place], [address] , tel: [phone] [facility] Lymphedema of armPain of right upper armHistory of lymph node dissection of right axilla Apr-2 5 Eden Hilda. [address] [place], [place], [address]. tel:[phone] Referring Provider: Rachid Seals, [address] [place] [address], [address]. [phone] [facility] [address], [place], [place], [address] , tel: [phone] Bernad[facility] AmenorrheaAxill lopez lymphadenopathy Bipolar depression Oct-2 5 Eden Hilda. [address] [place], [place], [address]. tel:[phone] Referring Provider: Rachid Seals, [address] [place] [address], [address]. tel:[phone] [facility] [address], [place], [place], [address] , [place] tel: [phone] Bern[place] Axillary lymphadenopathy Chronic diarrheaBipolar I disorder, most recent episode (or current) depressed, unspecifiedMorb id obesity with BMI of 40.0-44.9, adult Feb-2 - 5 Eden Hilda. [address] [place], [place], [address]. tel:[phone] Referring Provider: Rachid Seals, [address] [place], [address]. tel:[phone] [facility] [address], [place], [place], [address] , tel: [phone] Bern[place] Bipolar I disorder, most recent episode (or current) depressed, unspecifiedPost erior cervical lymphadenopathy Scalp psoriasisAcute frontal sinusitis 0 5 Karey Stevens. [facility] [place], [place], [address]. tel:[phone] Referring Provider: Rachid Seals, [address] [place] [address], [place], [address]. tel:[phone] [facility], [address], [place], [place], [address] , [place] tel:[phone] [facility] DiarrheaAbdomin al pain 2 5 Simonalion Gayegabby. [address] [place], [place], [address], [place]. tel:[phone] Referring Provider: Hilda Wright, [address] [place] [address], [place], [address]. tel:[phone] [facility], [address], [place], [place], [address] , [place] tel:[phone] [facility] Abdominal painDiarrheaMor bid obesity with BMI of 40.0-44.9, adultBipolar I disorder, most recent episode (or current) depressed, unspecifiedFami ly planning 4 Karey Stevens. [facility] [place], [place], [address]. tel:[phone] Referring Provider: Rachid Seals, [address] [place] [address], [place], [address]. tel:[phone] [facility], [address], [place], [place], [address] , [place] tel:[phone] [facility] DiarrheaAbdomin al painBipolar I disorder, most recent episode (or current) depressed, unspecifiedMorb id obesity with BMI of 40.0-44.9, adultFamily planning 4 Karey Stevens. [address] [place] [address], [address]. tel:[phone] Referring Provider: Rachid Seals, [address] [place] [address], [place], [address]. tel:[phone] [facility], [address], [place], [place], [address] , tel: [phone] Bernad[facility] Mixed hyperlipidemiaL reece-term (current) use of other medicationsMixe d hyperlipidemiaL reece-term (current) use of other medicationsDisp lacement of lumbar intervertebral disc without myelopathyBipol ar I disorder, most recent episode (or current) depressed, unspecified 3 Eden Hilda. [facility] [place], [place], [address]. tel:[phone] Referring Provider: Rachid Seals, [address] [place], [address]. tel:[phone] [employer] [facility], [address], [place], [place], [address] , tel: [phone] Bernad[place] Lumbar herniated discStool incontinenceBip olar depression 2 Eden Hilda. [facility] [place], [place], [address]. tel:[phone] Referring Provider: Rachid Seals, [address] [facility], [place], [address]. tel:[phone] [employer], [address], [place], [place], [address] , tel:[phone] Bernad[place] 1 mo follow up (chief complaint) Lumbar pain with radiation down left legBack pain, thoracicBowel incontinence 2 Eden Hilda. [facility]5 [place], [place], [address]. tel:[phone] Referring Provider: Rachid Seals, [address] [place], [address]. tel:[phone] [employer], [address], [place], [place], [address] , tel:[phone] Bernad[facility] back pain (chief complaint)a menorrhea (chief complaint) AmenorrheaBack painMorbid obesityElevated blood pressure reading without diagnosis of hypertension 2 Eden Hilda. [address] [facility], [place], [place], [address]. tel:[phone] Referring Provider: Rachid Seals, [address] [facility], [place], [address]. tel:[phone] [employer], [address], [place], [place], [address] , [place] tel: [phone] [facility] NATRL FAM PLN-AVOID PREGTOBACCO USE DISORDER Nov- 0 Bernadine Rashid. [address] [facility], [place], [place], [address], [place]. tel:[phone] [employer] [facility], [address], [place], [place], [address] , [place] tel: [phone] [facility] HAIR DISEASES NEC 0 Karey Stevens. [address] [facility], [place], [place], [address]. tel:[phone] [employer] [facility], [address], [place], [place], [address] , [place] tel: [phone] [place] POLYCYSTIC OVARIES 9 Mahsa Aragon. [address] , [place], [place], [address]. tel:[phone] [employer], [address], [place], [place], [address] , [place] tel: [phone] [facility] MALAISE AND FATIGUE NECMIXED HYPERLIPIDEMIA 9 Bernadine Rashid. [address] [facility], [place], [place], [address], [place]. tel:[phone] [employer], [address], [place], [place], [address] , [place] tel: [phone] [facility] No Information 9 Eden Cindy. [address] [facility], [place], [place], [address]. tel:[phone] [employer], [address], [place], [place], [address] , [place] tel: [phone] Bern[place] CHRONIC RHINITIS 9 Karey Stevens. [address] [facility] [address], [place], [place], [address]. tel:[phone] Family History Family Member Type Diagnosis Age At Onset Mother Problem (finding) Hearing impairment Father Problem (finding) Obesity Father Problem (finding) diabetes melli tus in first degree relative Father Problem (finding) raised blood lipids Immunizations Vaccine Date Status Comments influenza, injectable, quadrivalent, (3 years or older) administered Source: New Immuniza tion Record Payers Payer name Insurance type Covered libertarian ID Authoriza tion(s) MEDICARE [id number] MEDICAID [facility] [id number] [employer] INACTIVE OUT OF STATE [id number] Social History Type Description Quantity Date Captured Comments Alcohol Use Details Unknown Caffeine Use Details Unknown Tobacco Use Status Smoking Status No Information Sex Female Chief Complaint And Reason For Visit No Information Reason For Referral Reason For Referral No Information Plan Of Treatment Date Type Action Status Goal Dietary management education , guidance, and counseling completed Goal Dietary management education , guidance, and counseling completed Referral Ordered: Carey Partida MD -Allopathic [facility] Osteopathic Physicians : Internal Medicine : Hematology (related to Enlarged lymph nodes) ordered Referral Referred To: Carey Partida MD [address] [place], [id number] Ordered: Referrals: Hematology. Carey Partida MD. Evaluation/diagnostic/treatment - Level 3 ordered Referral Ordered: MRI lumbar spine w contrast ordered Referral Ordered: ECHO EXAM OF HEART, COMPLETE ordered Referral Ordered: MRI brain with and without contrast Appointment date/timeframe: 01/16/2019 ordered Referral Ordered: EKG (ELECTROCARDIOGRAM) ordered History Of Present Illness Encounter Date Complaint History Of Prese nt Illness deanne Gamez presents today for routine follow up. Patient has pain in multiple joints, diagnosed with polyarticular psoriatic arthritis. She sees rheumatology and is taking Simponi. Patient is taking tramadol 100mg twice daily for pain which is helping. Patient has swollen lymph nodes and enlarged spleen, referred to crew person, hasn't been able to get an appointment, needs a referral, prefers to see Dr. Partida. Patient encounter Chief complain t: ongoing pain and enlarged lymph nodes.Vera is a 37 y/o F who presents to the office today c/o continued generalized bone and joint pain. Pt has been following with Dr. Langley since 04/2022 for eval of positive RF and polyarthralgia. Pt admits to h/o of enlarged lymph nodes since 2014. 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 Pt admits to h/o removal and biopsy of 2 axillary lymph nodes in 2014 and states that biopsy was negative. Admits to continued crushing bone/joint pain which started in 2021. States that she was pain free with methotrexate but had to stop 2/2 elevated LFTs. States that currently on Simponi aria transfusions monthly, and now every other month which are not improving pain. States that pain is worse now than it was before starting with rheum. States that she continues to be very fatigue and that tramadol is not doing much to improve her pain. States that she continues to have enlarged lymph node on the R side of her neck. Lymph nodes have been followed with CT neck [address] neck 2020 showed bilateral mildly enlarged lymph nodes in levels 2 and 3 similar to prior exam with largest lymph node on R 1.5 cm and L 1.9 cm. U/S of neck 11/23/22 showed 1.5 x 0.3 cm nodule most consistent with reactive sized small lymph node in the same area as CT 2020 showed lymph node 14 x 8 mm. no lymph nodes noted on L sided u/s. pt states that lymph nodes are shrinking with steroids but she is considered that it is just masking an underlying issue. Biopsy of R axillary lymph nodes 11/10/14 showed benign lymph node, no evidence of metastatic tumor or lymphoma or features of hodgkins. Second section of R axillary tissue showed normal skin and fatty subcutaneous tissue, possibly lipoma. CT abdomen and pelvis 2014 showed normal size spleen. Spleen slightly enlarged on CT 09/12/20 and was enlarged but stable on CT 06/14/22.No acute cardiopulmonary process on CXR 06/07/2022t was RF positive in 2020 and again in late 2021. Patient encounter Chief complain t: chronic R sided low back pain with R sided sciatica flare.Vera is a 37 y/o F with chronic R sided low back pain that presents to the office today c/o worsening symptoms with severe R sided sciatica pain x 1.5 weeks. states that she has been taking cyclobenzaprine 5 mg tid prn from rheumatology for a few weeks and has been on 10 mg prednisone tid for a few months. pt was seen 05/03/22 with R sided back pain and R sided sciatica and was treated with medrol dose pack, cyclobenzaprine, and ibuprofen. currently pt takes tramadol for pain with little relief. states that pain is better when standing but worsens when sitting or laying down. admits to numbness in R thigh that worsens when sitting. states that she sleeps with legs propped up under pillows. states that she was seen at urgent care on sunday and was given Toradol injection, hydrocodone-acetaminophen 5-325, and methocarbamol. states that she has not taking hydrocodone or methocarbamol yet. states that [facility] did an xray and said that it didn't show anything. denies fever, chills, bowel/bladder incontinence, saddle anesthesia, recent weight loss, weakness. Pt has a history of lumbar disc herniation with radiculopathy. Last MRI was performed in 2016 which demonstrated focal disc protrusions in T12-L1, L3-L4, L4-L5, L5-S1, was similar to MRI from 2012. Prior to 2017, pt states that she was seeing pain management for management of back and L lower extremity symptoms 2/2 herniated discs. Pt states that she had multiple epidural steroid injections which would provide relief for around 3 weeks. pt states that she was also managed with pain medications and physical therapy which she has since stopped 2/2 lack of efficacy in symptom control. mmp Vera presents today for routine follow up. Patient has regular menstrual cycles. Doesn't remember the last time she had a pap test done. Patient reports blurry vision, states her eyes are normal in the morning and then about mid-day her vision becomes blurry and progressively gets worse throughout the day. Patient states she's had an eye exam in the past year. Patient was recently diagnosed with rheumatoid arthritis, psoriatic arthritis and sarcoidosis. She was started on methotrexate, blurred vision started once she decreased her dose of methotrexate recently. Patient also mentions her iron is low and she is taking iron supplements twice daily and multivitamin daily. Requested labs from Dr. Langley. Patient encounter Chief complain t: pain in lower R back and R L x 5 days.36 y/o F PMH significant for Lumbar disc herniation with radiculopathy presents to the office today c/o R lower back and L pain that started 5 days ago. Pt states that symptoms began after she heard a pop while reaching with her right arm. Pt describes pain as severe, constant and dull in quality, radiating to the R lower extremity and associated with pressure to the back and hip. Pt admits to pressure in her R thigh and upper calf that she describes as a band sensation around her leg. pt states that pain worsens with movement, sitting and driving and improves when standing or crouching. Pt states that she currently takes tramadol every 6 hours for stomach pain but that it does not relieve back and leg symptoms. pt denies relief of symptoms after taking tylenol or applying heating pads. pt admits to numbness in her R foot after sitting or driving for prolonged periods of time. pt states that she is able to sleep okay at night, but has difficulty turning over in bed 2/2 pain. Pt states that she does not have symptoms in her L leg. pt denies fever, chills, malaise, systemic symptoms, bowel or bladder incontinence, urinary changes, lower extremity weakness, tingling or pins/needles sensation in her lower extremities, sharp or stabbing pains in her legs, saddle anesthesia, unintentional weight loss, urinary retention, motor weakness. Pt has a history of lumbar disc herniation with radiculopathy. Last MRI was performed in 2016 which demonstrated focal disc protrusions in T12-L1, L3-L4, L4-L5, L5-S1. Prior to 2016, pt states that she was seeing pain management for management of back and L lower extremity symptoms 2/2 herniated discs. Pt states that she had multiple epidural steroid injections which would provide relief for around 3 weeks. pt states that she was also managed with pain medications and physical therapy which she has since stopped 2/2 lack of efficacy in symptom control. Patient encounter Chief complain t: joint pain, abdominal pain.Vera presents today for follow up, joint pain, abdominal pain. Patient has history of migraines, bipolar, PCOS. Patient reports joint pain, multiple sites. Worse in her right arm and right lower leg. Describes it as a crushing pain. Has been getting worse over the past couple months. She also mentions having neck pain, back pain. Patient has been seen for this in the past. She had positive RF and sed rate with negative ROSALINDA screen in May 2021. Referred to restaurant cook at that time but states they didn't take her insurance and patient didn't follow up. Patient also takes she has abdominal pain, feels like there is a meat team member in her abdomen. Reports a constant pain, worse with empty stomach, improves with eating. She has been taking Tylenol for her abdominal pain and joint pain. Denies nausea, vomiting, constipation. Patient has loose stool and lymphadenopathy. History of enlarged spleen. She was referred to a surgeon last year, never went. mmp Vera presents today with abdominal pain and weight loss for the past two months, getting worse. Patient's pain is upper abdomen, constant dull pain, sharp pain at times. Pain radiates to her back, can't sleep due to pain. Denies fever, chills, fatigue, nausea, vomiting, diarrhea, constipation. No improvement with ibuprofen, TUMS, Imodium, nothing helped. Patient had CT of abdomen in Aug which showed ovarian cyst. States she went back to urgent care in April and had CT scan and ultrasound of pelvis and transvaginal, showed 4cm right ovarian cyst and enlarged spleen. States she had labs done then as well, requested results. Patient states she's lost 50 pounds in the past several months, without trying. No change in diet or exercise routine. Patient states that last week she noticed lump on the right side of her chest, tender to touch. Chronic Conditions *See Chronic Conditions HPI Chronic Conditions MMP Three weeks of r ight-sided hip pain. Describes it is constant burning pain with sharp pain with certain movements. She is not doing anything for the pain. No nausea, vomiting, constipation, diarrhea. No association with food. No change in bowel movement. She does have a 10 month old boy. MMP Depression she was started on Abilify at last office visit. She is said she is noticed increase of approximately 50% in depressive symptoms. She is still very fatigued and unmotivated though. She is tolerating the medicine well. She's actually lost about 6 pounds due to exercise.Headache she still very fatigued and having significant morning headaches. She is been on multiple prophylactic medications are the providers in the past, none seem to help. She does have several cardinal symptoms of sleep apnea. Sleep study was ordered at last office visit however it is not appear like it was ever arranged by the patient.Murmur according to the patient, she had an echocardiogram last year at [facility]. Will try to get those records. She is not complaining of any chest pain, shortness of breath, edema. DEANNE She is here with multiple complaints. She's having worsening headaches. She describes it as sudden onset of diffuse sharp pain that wakes her up from sleep at night. Can last an hour. No associated nausea, vomiting, visual changes. This is becoming frequent. No headaches during the day. She is also having episodes of stool incontinence which seem to correlate with the headaches. Again no episodes during the day. She is having no abdominal pain, blurry vision. Her amitriptyline dose was increased at last office visit due to worsening anxiety. She is not seen any improvement. According to the patient, she does have a history of bipolar disorder. She was last hospitalized one year ago for suicidal ideations. Today, she reports no suicidal ideations. Her mood is depressed today. No alcohol or drug use. She was started on trintillex two years ago for depression but did not think it helped. She says she is been on multiple medications in the past, none seem to help.She does have a heart murmur on exam. She says this is not new. There is never been worked up in the past. She has had intermittent substernal chest pain that she describes is squeezing intermittently for several years. No exertional component. She does have occasional palpitations. No shortness of breath or edema. Chronic Conditions *See Chronic Conditions HPI DEANNE Gamez is here f or ER follow-up. According to the patient, she is had persistent headaches for the last year. 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 She's having persistent left-sided occipital and frontal headaches that she describes as a crushing pain. They can be associated with blurry vision when they are severe. No nausea. Each individual headache can last talked with few days. She is not had a headache free day though in a year. She is followed by neurology and they did discuss Botox injections however she is not her back to the neurologist yet. She is tried multiple medications including Fioricet, Tylenol, Aleve, non-help at all with the headache.She went to [facility] emergency room on October 22 because of the headache. She was having blurry vision at that time. Of note her blood pressure was 169/115 on presentation. Lab workup was mostly unremarkable other than a mild leukocytosis and elevated red blood cell count. She had a CTA of the head and neck which was unremarkable. She does CT of her head which was also unremarkable other than changes from the colloid cyst removal. She was given Reglan Benadryl and okay he hip Omnipaque which she said did not help.Of note, she does snore at night. Her does say that she has witnessed apnea episodes and she does have daytime somnolence. She is never been diagnosed with hypertension but she says that her blood pressure has been elevated eminently in the past. MMP 1. she owes her pain management doctor money so cant see him or get rx until pays that and would like pain med for one or two months - once she gets her tax refund will pay him and get reestablished2. irritability and anxiety; shes discussed this with neurologist and neurosurgeon and they suggested adjustment of her psych meds; she denies harmful intent to self or others; shes is feeling some depression but feels its because she is so anxious and irritable. Hospital follow up she had a yessi ign colloidal brain tumor removed at [facility] and was discharged about 0ne week ago; she is not having any headaches but she does have some intermitt vertigo which she reports is to be expected per her neurosurgeon. she is doing better with her depression on trintellix and needs an rx sent to make sure her insurance covers it. 2 week follow up no improv with abilify 5mg dose and lexapro 20mg she just feels depressed and tired all the time and wanting to sleep all the time; she denies harmful intent to self or others; she is having to nap when her children do during the day; she reports only taking dilaudid which she gets from pain management at bedtime which is enough. hospital follow up/depression [facility] is still having some depression but hasnt done further self mutilation she admits at time to fleeting suicidal ideation but has been utilizing her support group her dad and . her is here with her reports she misses doses of her antidepressant but not other meds and she is tired all the time especially in the morning when he has to leave for work. Functional Status Date Functional Assessmen t No Information Instructions Date Instruction Additional Infor mation Increase fresh fruit and vegetables in diet, low fat diet. Increase physical activity daily, start with walking 15-20 minutes daily. Goal of 30 minutes most days of the week. Related to Body mass index [BMI] 32.0-32.9, adult Labs done in office today. Sees restaurant cook. Tramadol as needed for pain. controlled medication contract signed in office today. Related to Arthralgia of multiple sites Referred to Dr. Pebbles wright, will send referral over Related to Enlarged lymph nodes see plan 2. Related to Splee n enlarged Dietary management e ducation, guidance, and counseling Related to Body mass index (BMI) 32.0-32.9, adult stable on recent ult rasound, no evidence of enlarged nodes on recent CT abdomen and pelvis biopsy axillary lymph node 2014 negativerecommend following up with hematology to determine if it would be appropriate to biopsy another set of lymph nodes Related to Enlarged lymph nodes continue to monitor stable on recent CT scanplan as noted above for f/u on enlarged lymph nodes and pain EBV, lyme, HIV, RPR Related to Spleen enlarged currently on simponi aria infusions, prednisone, tramadol as needed with little control of painrecommend getting a second opinion from rheumatology. recommend f/u with Dr. Kinga DuLyme, EBV, HIV, RPR next follow up in 1 month or sooner as needed Related to Arthralgia of multiple sites plan as noted above Related to R heumatoid factor positive MRI lumbar spine cristina son contrastcontinue prednisone, cyclobenzaprine, tramadol as directed by rheumatologysciatica exercises given in april and resent to pt after today's visitibuprofen as needed for pain. rest, avoid exacerbating activity. alternate ice to decrease inflammation and warm compresses to relax muscles. will plan to refer for physical therapy once symptoms start to improve to prevent future episodes follow up as needed if symptoms worsen or do not improve Related to Chronic right-sided low back pain with right-sided sciatica Most likely related to methotrexate, recommended she talk to Dr. Serrano office Related to Blurred vision, bilateral requested lab result s from Dr. Langley's office Related to Low serum iron Pap testing done in office today Related to Cervical cancer screening Take cyclobenzaprine 5 mg up to three times a day for the next 2 weeks. This medication is a muscle relaxant. This medication can cause you to become drowsy so start by taking it at night to see how you feel. Caution driving after taking this medication, wait to see how it makes you feel before driving since it can make you sleepy. Avoid drinking alcohol while taking cyclobenzaprine. Try stretching and massaging the tight areas to help loosen the muscle. Applying hot and cold compresses will help relax your muscles and decrease inflammation. Resume light activity, like walking, as tolerated. Avoid strenuous activity.Let us know if your symptoms worsen or do not get better. Related to Muscle spasm Take medrol dose pac k (steroid) as directed on package. The steroids should help decrease inflammation which may improve symptoms. For pain relief, you can take 400 mg of Ibuprofen/Motrin every 4-6 hours for the next 2 weeks. This will also help decrease inflammation. Continuing to take sucralfate as prescribed to you will help protect your stomach from the steroids and pain medications. Resume light physical activity as tolerated. avoid strenuous activity or any activity that makes you back or leg feel worse. Apply hot or cold compresses to the affected areas. When lifting, bend your knees and not your back. You can place a pillow under your knees when laying down to straighten your spine and to reduce stress. Sleeping on a firm mattress that keeps your back straight (rather than sinking in) can also reduce stress on your back. A handout was given to you at the appointment with sciatica exercises, doing these daily if tolerated may aid in symptom improvement as well. If the numbness in your right foot worsens or if your pain does not resolve in 4-6 weeks we will consider ordering an MRI. Additionally, we can refer you to physical therapy to help strengthen surrounding muscles. Contact the office if symptoms worsen or do not resolve. Contact the office if the numbness in your R foot worsens, you develop weakness or loss of sensation in your leg or bowel/bladder incontinence. Related to Acute right-sided low back pain with right-sided sciatica Checking CBC Related to Splee n enlarged Lipid panel Related to Lipid screening Carafate 1 gram for times daily before meals. Labs Related to Periumbilical abdominal pain Referred to rheumato socorro, Dr. Pruett or Dr. Langley. Will send over office note and labs Related to Arthralgia of multiple sites Repeat rheumatoid factor today R elated to Rheumatoid factor positive will check CBC and r equested scan results Related to Spleen enlarged scheduled pap testin g and HPV in 1-2 weeks Related to PCB (post coital bleeding) Follow up in 1-2 wee tn for pap testing and HPV testing. Will obtain labs today and review imaging from urgent care. Will start you on pantoprazole 40mg once daily to see if this improves your pain. Related to Periumbilical abdominal pain Requested imaging for urgent car e Related to Cyst of right ovary will check HIV and s ed rate and TSH today Related to Unintentional weight loss Eat healthy, well-balanced meals that reduce the calories in your diet. If you are used to eating big portions, try to eat smaller portions of higher calorie foods and eat more vegetables and fruits. (see Mediterranean diet handout) Keep a daily food diary. You can also write down your weight to see how your changes have helped. [employer] and other apps can help track calories. Avoid alcohol. Alcoholic beverages add calories and may increase hunger. A healthy goal for all adults is to exercise for 2 -3 hours or more each week, in addition to your regular activities. Do some form of strength training 2 or more days a week. It's hard to be active when you are sitting in front of a Try to keep screen time to 2 hours or less per day. Related to Morbid (severe) obesity due to excess calories Vera has multiple cardinal symptoms of sleep apnea including obesity, headaches, fatigue, snoring, witnessed apnea episodes, elevated blood pressure. Will get a sleep study. Related to Snoring Will try intramuscul ar Toradol 60 mg to break the headache. Otherwise, continue Fioricet as abortive therapy. Continue amitriptyline for prophylaxis. Provided contact information for [facility] migraine clinic. I think there may be a component of sleep apnea so will work that up as mentioned below. Related to Intractable migraine without aura and with status migrainosus has multilevel buldi ng lumbar discs - until she can get back ( in next couple of months) with pain managment will give rx of percocet 7.5/325mg one po bid #60 and have her sign controlled substance contractbeing in chronic pain can certainly add to anxiety and irritability Related to Bulging of lumbar intervertebral disc buspar 10mg one po t id #[id number] (1) and if no improv in 6 weeks call sooner if worse - cont trintellix and amitriptyline Related to CLOTILDE (generalized anxiety disorder) this is new and I do nt have her hosp notes from [facility] to know if they worked it up- she reports they did tell her she had a murmur- never had this before. 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 Will send o/v note to pain management Related to Lumbar disc herniation with radiculopathy check serum B12 hydr oxy 25 vit D ferritin and TSH (she had cbc cmp in ER last month) take vit B12 supplement daily 1000mcg dose Related to Fatigue, unspecified type stop escitalpram and abilify and given samples of trintellix 10mg one a day and call first of next week with update - if no improv will need to see psych and so will give her Dr Saldaña number- [phone] Related to Bipolar depression needs to make an lane t with pscychiatrist - they gave her several names and numbers and I explained to her it will take a while for her to get in so call ADELIA needs to go and needs counseling cont escitalopram and her will make sure she takes this and the new rx for abilfy daily - abilify 5mg take one half once a day and if not helping go to one on sunday - call sunday with update Related to Bipolar depression she gets dilaudid fr om pain management - she doesnt feel she needs 3 doses per day- to not take any until after is home in the late afternoon - this should help with her fatigue and depression as pain meds can increase depression; she is agreeable with this plan Related to Lumbar disc herniation with radiculopathy Dietary management e ducation, guidance, and counseling Related to Body mass index (BMI) 39.0-39.9, adult Physical activity counseling Rel ated to Morbid obesity, BMI 40 or more Dietary counseling Related to Mo rbid obesity, BMI 40 or more Low fat diet Related to Morbi d obesity, BMI 40 or more Assessments Type Assessment Date No Information Patient Care Teams Name Effective Dates (start - stop) Status Members No Information
--- OUTSIDE RECORDS SUMMARY | 2023-07-25 07:29 | XMS_ITS | Continuity of Care Document ---
Author Organization [employer] Address [address] [place] [address] Phone Care Team Providers Care Media Relations Intern Name Role Phone Amisha Barber Unavailable Unavailabl [...] Procedures Procedure Date ROUTINE VENIPUNCTURE May-30-2023 OFFICE MEYUY-GLC-CWEWYING SYST BP LT 130 MM HG DIAST BP < 80 MM HG OFFICE [id number]-[id number] SYST BP LT 130 MM HG DIAST BP < 80 MM HG OFFICE UVWGW-OXM-IQREPZMK SYST BP LT 130 MM HG DIAST BP < 80 MM HG Pt inelig neg scrn depres SCREENING FOR PAP (OBTAINING SPECIMEN) N OFFICE AIIBS-YWP-YRJAULJS SYST BP LT 130 MM HG DIAST BP < 80 MM HG OFFICE MMRSF-YBZ-YOWOMRSQ SYST BP LT 130 MM HG DIAST BP < 80 MM HG ANTINUCLEAR ANTIBODIES (ROSALINDA) C-REACTIVE PROTEIN (CRP) CBC, INC PLATELETS AND DIFFERENTIAL COMPREHEN METABOLIC PANEL CMP LIPID PANEL RHEUMATOID FACTOR: QN RBC SED RATE, AUTOMATED THYROID STIMULATION HORMONE(TSH) ROUTINE VENIPUNCTURE OFFICE QETNP-JEL-UEHKHNGS SYST BP LT 130 MM HG DIAST BP 80-89 MM HG CBC, INC PLATELETS AND DIFFERENTIAL COMPREHEN METABOLIC PANEL CMP HEMOGLOBIN A1C HGA1C, GLYCO HIV-1 AG W/HIV-1 & HIV-2 AB RBC SED RATE, AUTOMATED THYROID STIMULATION HORMONE(TSH) 2020 URINALYSIS, DIPSTICK (UA) - Office Lab O ROUTINE VENIPUNCTURE OFFICE UZBAV-GCT-SDRJOPLJ SYST BP LT 130 MM HG DIAST BP < 80 MM HG ANTINUCLEAR ANTIBODIES (ROSALINDA) RHEUMATOID FACTOR: QN No Show Appt Charge No Show Appt Charge OFFICE PVBZW-RIV-AGWKEHYA SYST BP GE 130 - 139MM HG DIAST BP 80-89 MM HG OFFICE ECKUC-YZR-OSZGLDMC SYST BP LT 130 MM HG DIAST [...] Diagnoses Date Provider Providers Copied on Encounter [employer], [address], [place], [place], [address] , tel:[phone] [place] No Information 3 Gorge Lion. [address] [place], [place], [address], . tel:[phone] [employer], [address], [place], [place], [address] , tel:[phone] [facility] No Information 3 Gorge Lion. [address] [place], [place], [address], . tel:[phone] [employer], [address], [place], [place], [address] , tel:[phone] [facility] No Information 3 Bernadine Rashid. [address] [place], [place], [address], . tel:[phone] [employer], [address], [place], [place], [address] , tel:[phone] [place] No Information 3 Gorge Lion. [address], [place], [place], [address], [place]. tel:[phone] [facility]ICE [facility], [address], [place], [place], [address] , tel: [phone] [place] mmp (chief complaint) Body mass index [BMI] 32.0-32.9, adultArthralgia of multiple sitesEnlarged lymph nodesSpleen enlarged 3 Gorge Lion. [address], [place], [place], [address], [place]. tel:[phone] Referring Provider: Matthieu Campbell, [address], [place], [address]. tel:[phone] OFFICE [facility]QM[facility]LS[facility], [address], [place], [place], [address] , [place] tel: [phone] [place] Patient encounter (chief complaint) Arthralgia of multiple sitesRheumatoid factor positiveSpleen enlargedEnlarge d lymph nodes 3 Wendy Jimenez. [address], [place], [place], [address], [place]. tel:[phone] Referring Provider: Matthieu Campbell, [address], [place], [address]. [phone] OFFICE HGVCU[facility]RFN[facility], [address], [place], [place], [address] , [place] tel: [phone] [place] Patient encounter (chief complaint) Chronic right-sided low back pain with right-sided sciatica 3 Wendy Jimenez. [address], [place], [place], [address], [place]. tel:[phone] Referring Provider: Matthieu Campbell, [address], [place], [address]. [phone] OFFICE VYTXJ-DBG-UF [facility] [address], [place], [place], [address] , [place] tel:[phone] Bernadine mmp (chief complaint) Cervical cancer screeningBlurre d vision, bilateralLow serum iron 2 Gorge Lion. [address], [place], [place], [address], [place]. tel:[phone] Referring Provider: Matthieu Campbell, [facility] [address], [place], [address]. tel:[phone] OFFICE RYVXG[facility]JEQ[facility], [address], [place], [place], [address] , [place] [phone] Bernad[place] Patient encounter (chief complaint) Acute right-sided low back pain with right-sided sciaticaMuscle spasm 2 Wendy Jimenez. [address], [place], [place], [address], [place]. tel:[phone] Referring Provider: Matthieu Campbell, [address] [place] [address] B, [place], [address]. tel:[phone] OFFICE KNSFA[facility]WJR[facility], [address], [place], [place], [address] , [place] tel:[phone] [facility] Patient encounter (chief complaint) Arthralgia of multiple sitesRheumatoid factor positivePeriumb ilical abdominal painSpleen enlargedLipid screening 2 Gorge Lion. [address] [place], [address], [place]. tel:[phone] Referring Provider: Matthieu Campbell, [address] [place] [address] B, [place], [address]. tel:[phone] OFFICE FQRQH-ACF-[facility], [address], [place], [place], [address] , [place] tel:[phone] [place] mmp (chief complaint) Periumbilical abdominal painCyst of right ovaryUnintentio nal weight lossPCB (post coital bleeding)Spleen enlargedElevate d sed rate 1 Gorge Amisha. [address] [facility] [place], [address], . tel:[phone] Referring Provider: Matthieu Campbell, [address] [facility] [address], [place], [address]. tel:[phone] [facility], [address], [place], [place], [address] , [place] tel:[phone] [place] No Information 0 Adrian Sommers. [address] [facility] [address], [place], [place], [address], [place]. tel:[phone] Referring Provider: Matthieu Campbell, [address] [facility] [address], [place], [address]. tel:[phone] [facility], [address], [place], [place], [address] , [place] tel: [phone] [place] No Information 9 Adrian Sommers. [address] [facility] [address], [place], [place], [address], [place]. tel:[phone] Referring Provider: Matthieu Campbell, [address] [place] [address] B, [place], [address]. [phone] OFFICE PYGIY-MVB-UX [facility], [address], [place], [place], [address] , [place] tel:[phone] [place] Chronic Conditions (chief complaint)M MP (chief complaint) Bipolar disorder, unspecifiedMigr vitaly, unspecified, not intractable, without status migrainosusRigh t hip pain 9 Adrian Sommers. [address] [facility] [place], [address], [place]. tel:[phone] Referring Provider: Matthieu Campbell, [address] [facility] [address], [place], [address]. [phone] OFFICE CXKBP-LJW-GG [facility], [address], [place], [place], [address] , [place] tel: [phone] [facility] (chief complaint) Migraine, unspecified, not intractable, without status migrainosusBipo lar 1 disorderHeart murmur 9 Adrian Sommers. [address] [facility] [address], [place], [place], [address], . tel:[phone] Referring Provider: Matthieu Campbell, [address] [facility] [address], [place], [address]. tel:[phone] [facility], [address], [place], [place], [address] , [place] tel: [phone] [facility] (chief complaint) Heart murmurColloid cyst of brainBipolar 1 disorderInconti nence of feces, unspecified fecal incontinence typeMigraine, unspecified, not intractable, without status migrainosus Jan- 9 Adrian Sommers. [address] [facility] [address], [place], [place], [address], . tel:[phone] Referring Provider: Matthieu Campbell, [address] [facility] [address], [place], [address]. tel:[phone] [employer], [address], [place], [place], [address] , [place] tel: [phone] [place] Chronic Conditions (chief complaint) Generalized anxiety disorderMorbid (severe) obesity due to excess caloriesEncount er for general adult medical examination without abnormal findingsMigrain e, unspecified, not intractable, without status migrainosusPoly cystic ovarian syndromeInterve rtebral disc disorders with radiculopathy, lumbar regionOther fatigueMajor depressive disorder, single episode, unspecified 9 Adrian Sommers. [address] [facility] [address], [place], [place], [address], . tel:[phone] Referring Provider: Matthieu Campbell, [address] [facility] [address], [place], [address]. tel:[phone] [employer], [address], [place], [place], [address] , [place] tel: [phone] [facility] (chief complaint) Intractable migraine without aura and with status migrainosusSnor ing Adrian Sommers. [address] [place] [address], [address], [place]. tel:[phone] Referring Provider: Matthieu Campbell, [address] [place] [address], [place], [address]. tel:[phone] [facility], [address], [place], [place], [address] , [place] tel: [phone] [facility] (chief complaint) CLOTILDE (generalized anxiety disorder)Bulgin g of lumbar intervertebral disc Eden Hilda. [address] [place] [address], [address]. tel:[phone] Referring Provider: Rachid Seals, [address] [place] [address], [address]. tel:[phone] [facility] [address], [place], [place], [address] , [place] tel: [phone] [facility] follow up (chief complaint) Colloid cyst of brainBipolar depressionLumba r disc herniation with radiculopathyMu rmur, cardiac Eden Hilda. [address] [place] [address], [address]. tel:[phone] Referring Provider: Rachid Seals, [address] [place] [address], [place], [address]. tel:[phone] [facility], [address], [place], [place], [address] , [place] tel: [phone] [place] 2 week follow up (chief complaint) Fatigue, unspecified typeBipolar depression Eden Hilda. [address] [place] [address], [address]. tel:[phone] Referring Provider: Rachid Seals, [address] [place] [address], [place], [address]. tel:[phone] [facility], [address], [place], [place], [address] , [place] tel: [phone] [place] [facility] follow up/depressi on (chief complaint) Lumbar disc herniation with radiculopathyBi polar depression 7 Eden Hilda. [address] [place], [place], [address]. tel:[phone] Referring Provider: Rachid Seals, [address] [place] [address], [place], [address]. tel:[phone] [facility], [address], [place], [place], [address] , [place] tel: [phone] [place] Lumbar disc herniation with radiculopathyNe oplasm of uncertain behavior of skinDifficulty sleeping 7 Eden Hilda. [address] [place] [address], [address]. tel:[phone] Referring Provider: Rachid Seals, [address] [place] [address], [place], [address]. tel:[phone] [facility], [address], [place], [place], [address] , [place] tel: [phone] [place] Bipolar depressionAnxie ty10 weeks gestation of 6 Eden Hilda. [facility] [place], [place], [address]. tel:[phone] Referring Provider: Rachid Seals, [address] [place] [address], [place], [address]. tel:[phone] [facility], [address], [place], [place], [address] , [place] tel: [phone] Bernadine Encounter for immunizationMix ed hyperlipidemiaM orbid obesity with body mass index of 40.0-44.9 in adultCervicalgi aAnxietyFamily planning 201 5 Eden Hilda. [facility]5 [place], [place], [address]. tel:[phone] Referring Provider: Rachid Seals, [address] [facility], [place], [address]. tel:[phone] [facility], [address], [place], [place], [address] , [place] tel: [phone] [facility] Diarrhea Oct-2 7-201 5 Bialecki Eldad. [address] [place] [address], [address], [place]. tel:[phone] [facility], [address], [place], [place], [address] , [place] tel: [phone] [facility] Enlarged thyroidNeck painTenderness of right axillaIrregular menstrual cycle Sep-1 0-201 5 Eden Hilda. [address] [place], [place], [address]. tel:[phone] Referring Provider: Rachid Seals, [address] [place], [address]. tel:[phone] [facility], [address], [place], [place], [address] , [place] tel: [phone] [facility] Diarrhea Sep-0 2-201 5 Bialecki Eldad. [address] [place] [address], [address], [place]. tel:[phone] Referring Provider: Belinda Esqueda, [address] [place] [address], [address]. tel:[phone] [facility], [address], [place], [place], [address] , [place] tel: [phone] [facility] DiarrheaLUQ abdominal pain Alexis-2 1-201 5 Bialecki Eldad. [address] [place] [address], [address], [place]. tel:[phone] Referring Provider: Belinda Esqueda, [address] [place] [address], [address]. tel:[phone] [facility], [address], [place], [place], [address] , [place] tel: [phone] Bern[place] Pain in limb May-0 5 Bernadine Rashid. [address] [facility], [place], [place], [address], . tel:[phone] [facility] [address], [place], [place], [address] , tel: [phone] [facility] Lymphedema of armPain of right upper armHistory of lymph node dissection of right axilla Apr-2 5 Eden Hilda. [address] [place], [place], [address]. tel:[phone] Referring Provider: Rachid Seals, [address] [place] [address], [address]. [phone] [facility] [address], [place], [place], [address] , tel: [phone] Bernadine AmenorrheaAxill lopez lymphadenopathy Bipolar depression Oct-2 5 Eden Hilda. [address] [place], [place], [address]. tel:[phone] Referring Provider: Rachid Seals, [address] [place] [address], [address]. [phone] [facility] [address], [place], [place], [address] , [place] tel: [phone] Bernadine Axillary lymphadenopathy Chronic diarrheaBipolar I disorder, most recent episode (or current) depressed, unspecifiedMorb id obesity with BMI of 40.0-44.9, adult Feb-2 - 5 Eden Hilda. [address] [place], [place], [address]. tel:[phone] Referring Provider: Rachid Seals, [address] [place], [address]. tel:[phone] [facility] [address], [place], [place], [address] , tel: [phone] Bernadine Bipolar I disorder, most recent episode (or current) depressed, unspecifiedPost erior cervical lymphadenopathy Scalp psoriasisAcute frontal sinusitis 0 5 Karey Stevens. [facility]5 [place], [place], [address]. tel:[phone] Referring Provider: Rachid Seals, [address] [place] [address], [place], [address]. tel:[phone] [facility], [address], [place], [place], [address] , [place] tel:[phone] [facility] DiarrheaAbdomin al pain 2 5 Simonalion Gayegabby. [address] [place], [place], [address], [place]. tel:[phone] Referring Provider: Hilda Wright, [address] [place] [address], [place], [address]. tel:[phone] [facility], [address], [place], [place], [address] , [place] [phone] Bernad[place] Abdominal painDiarrheaMor bid obesity with BMI of 40.0-44.9, adultBipolar I disorder, most recent episode (or current) depressed, unspecifiedFami ly planning 4 Karey Stevens. [facility]5 [place], [place], [address]. tel:[phone] Referring Provider: Rachid Seals, [address] [place] [address], [place], [address]. tel:[phone] [facility], [address], [place], [place], [address] , [place] tel:[phone] [facility] DiarrheaAbdomin al painBipolar I disorder, most recent episode (or current) depressed, unspecifiedMorb id obesity with BMI of 40.0-44.9, adultFamily planning 4 Karey Stevens. [address] [place] [address], [address]. tel:[phone] Referring Provider: Rachid Seals, [address] [place] [address], [place], [address]. tel:[phone] [facility], [address], [place], [place], [address] , tel: [phone] Bernadine Mixed hyperlipidemiaL reece-term (current) use of other medicationsMixe d hyperlipidemiaL reece-term (current) use of other medicationsDisp lacement of lumbar intervertebral disc without myelopathyBipol ar I disorder, most recent episode (or current) depressed, unspecified 3 Eden Hilda. [facility]5 [place], [place], [address]. tel:[phone] Referring Provider: Rachid Seals, [address] [place], [address]. tel:[phone] [facility], [address], [place], [place], [address] , tel: [phone] Bernadine Lumbar herniated discStool incontinenceBip olar depression 2 Eden Hilda. [facility]5 [place], [place], [address]. tel:[phone] Referring Provider: Rachid Seals, [address] [facility], [place], [address]. tel:[phone] [employer], [address], [place], [place], [address] , tel:[phone] Bernadine 1 mo follow up (chief complaint) Lumbar pain with radiation down left legBack pain, thoracicBowel incontinence 2 Eden Hilda. [facility]5 [place], [place], [address]. tel:[phone] Referring Provider: Rachid Seals, [address] [place], [address]. tel:[phone] [employer], [address], [place], [place], [address] , tel:[phone] Bernadine back pain (chief complaint)a menorrhea (chief complaint) AmenorrheaBack painMorbid obesityElevated blood pressure reading without diagnosis of hypertension 2 Eden Hilda. [address] [facility], [place], [place], [address]. tel:[phone] Referring Provider: Rachid Seals, [address] [facility], [place], [address]. tel:[phone] [facility], [address], [place], [place], [address] , [place] tel: [phone] [facility] NATRL FAM PLN-AVOID PREGTOBACCO USE DISORDER Nov- 0 Bernadine Rashid. [address] [facility], [place], [place], [address], [place]. tel:[phone] [employer], [address], [place], [place], [address] , [place] tel: [phone] [facility] HAIR DISEASES NEC 0 Karey Stevens. [address] [facility], [place], [place], [address]. [phone] [facility], [address], [place], [place], [address] , [place] tel: [phone] [place] POLYCYSTIC OVARIES 9 Mahsa Aragon. [address] , [place], [place], [address]. tel:[phone] [employer], [address], [place], [place], [address] , [place] tel: [phone] [place] MALAISE AND FATIGUE NECMIXED HYPERLIPIDEMIA 9 Bernadine Rashid. [address] [facility], [place], [place], [address], [place]. tel:[phone] [employer], [address], [place], [place], [address] , [place] tel: [phone] [facility] No Information 9 Eden Cindy. [address] [facility], [place], [place], [address]. tel:[phone] [employer], [address], [place], [place], [address] , [place] tel: [phone] Bernadine CHRONIC RHINITIS 9 Karey Stevens. [address] [facility] [address], [place], [place], [address]. tel:[phone] Family History Family Member Type Diagnosis Age At Onset Father Problem (finding) raised blood lipids Father Problem (finding) diabetes umui agapitos in first degree relative Father Problem (finding) Obesity Mother Problem (finding) Hearing impairment Immunizations Vaccine Date Status Comments influenza, injectable, quadrivalent, (3 years or older) administered Source: New Immuniza tion Record Payers Payer name Insurance type Covered democrat ID Authoriza tion(s) MEDICARE [id number] MEDICAID [facility] [id number] [place] INACTIVE OUT OF STATE [id number] Social History Type Description Quantity Date Captured [...] Referral Referred To: Carey Partida MD [address] [place], [phone] Ordered: Referrals: Hematology. Carey Partida MD. Evaluation/diagnostic/treatment [...] lymph nodes and enlarged spleen, referred to [facility], hasn't been able to get an appointment, [...] ROSALINDA screen in May 2021. Referred to auto [facility]raiser at that time but states they didn't take her insurance and patient didn't follow up. Patient also takes she has abdominal pain, feels like there is a meat grading machine operator in her abdomen. Reports a constant pain, [...] she had an echocardiogram last year at [facility]. Will try to get those records. She [...] at all with the headache.She went to [facility] emergency room on October 22 because of [...] yessi ign colloidal brain tumor removed at [facility] and was discharged about 0ne week ago; [...] adult Labs done in office today. Sees auto appraiser. Tramadol as needed for pain. controlled medication [...] coital bleeding) Follow up in 1-2 wee mi for pap testing and HPV testing. Will [...] to see how your changes have helped. [employer] and other apps can help track calories. [...] amitriptyline for prophylaxis. Provided contact information for [facility] migraine clinic. I think there may be [...] do nt have her hosp notes from [facility] to know if they worked it up- [...] [facility] since having the [facility] for [...] so will give her Dr Saldaña number- [phone] Related to Bipolar depression needs to make [...]
--- NOTE | ~2025-04-13 | CT_ITS ---
EXAMINATION: CTA chest PE protocol DATE: 04/13/2025 15:14 INDICATION: Shortness of breath. Elevated d-dimer. TECHNIQUE: Computed tomography (CT) pulmonary angiogram of the chest was performed with 100 mL Omnipaque-350 intravenous contrast. Additional 3D reconstructions utilizing coronal maximum intensity projection (MIP) were performed. Automated exposure control and iterative reconstruction technique were employed. The dose-length product was 722.95 mGy-cm. COMPARISON: 03/05/2024 FINDINGS: No pulmonary embolism. Normal azygos lobe and fissure. Mild mosaic attenuation in the dependent lower lobes consistent with atelectasis and more lucent subsegmental regions of air trapping which can be seen in the setting of small airway disease. No pneumonia, pulmonary edema, pleural effusion or pneumothorax. Heart size is normal. No pericardial effusion. Thoracic aorta is normal in caliber with no dissection. No pathologically enlarged thoracic lymphadenopathy. Visualized upper abdomen is unremarkable. Mild thoracic spondylosis. IMPRESSION: 1. No pulmonary embolism or other acute cardiopulmonary disease. 2. Similar pattern of mosaic attenuation in the dependent lungs most likely related to atelectasis with subsegmental air trapping in the setting of small airway disease. Differential would also include asthma, bronchiolitis obliterans and hypersensitivity pneumonitis. Reviewed, dictated and finalized at location A. IMPRESSION: 1. No pulmonary embolism or other acute cardiopulmonary disease. 2. Similar pattern of mosaic attenuation in the dependent lungs most likely rel ated to atelectasis with subsegmental air trapping in the setting of small airw ay disease. Differential would also include asthma, bronchiolitis obliterans an d hypersensitivity pneumonitis.
--- NOTE | ~2025-04-13 | XR_ITS ---
EXAMINATION: XR chest 2V DATE: 04/13/2025 14:27 INDICATION: Chest pain TECHNIQUE: PA and lateral views of the chest were obtained. COMPARISON: Chest radiograph dated 04/15/24 FINDINGS: Unchanged mild elevation of the left hemidiaphragm. No airspace opacities, pulmonary edema, pleural effusion or pneumothorax. The cardiomediastinal silhouette is normal. Mild thoracolumbar dextrocurvature. Cholecystectomy clips at the gallbladder fossa. IMPRESSION: 1. No acute cardiopulmonary disease. Reviewed, dictated and finalized at location A.
--- NOTE | 2025-04-13 13:55 | ECG_ITS ---
Test Date: 2025-04-13 14:02:12 Measurements Intervals [place] Rate: 92 P: 48 SC: 142 QRS: 44 QRSD: 84 T: 45 QT: 333 QTc: 413 Interpretive Statements SINUS RHYTHM WITH OCCASIONAL ECTOPIC PREMATURE COMPLEXES Electronically Signed On 04-14-2025 06:37:10 CDT by Wyatt Iglesias D.O
--- OUTSIDE RECORDS SUMMARY | 2025-04-13 13:57 | XMS_ITS | Encounter Summary ---
Author Organization [employer] Address [address] [place] [address] Care Team Providers Care Crop Setting Out Machine Operator Name Role Phone Meng King MD Primary Care Provider [phone] Encounter Details Date Type Department Care Team (Late st Contact Info) Description 10/24/2004 Emergency [facility] Landon Yadav MD [address] [place] [id number] Er, Authorized P NO ADDRESS ON FILE LOWER LEG INJURY NOS (Primary Dx) Social History Tobacco Use Types Packs/Day Years Used Date Smoking Tobacco: Never Assessed Comments Unknown Sex and Gender Information Value Date Recorded Sex Assigned at Not on file Legal Sex Female 4:09 AM PULP PILER Gender Identity Not on file Sexual Orientation Not on file documented as of this encounter Plan of Treatment Not on file documented as of this encounter Visit Diagnoses Diagnosis Injury, other and unspecified, knee, leg, ankle, and foot- Primary documented in this encounter Additional Health Concerns Infection Onset Date Last Indicated Resolved Time COVID-19 08/24/2020 08/24/2020 09/23/2020 1:16 AM PULP PILER documented as of this encounter Care Teams Crop Setting Out Machine Operator Relationship Specialty Start Date End Date Meng King MD [facility] [place] [phone] PCP - General Family Practice 11/15/23 documented as of this encounter
--- OUTSIDE RECORDS SUMMARY | 2025-04-13 13:57 | XMS_ITS | Encounter Summary ---
Author Organization [employer] Address [address] [place] [address] Care Team Providers Care Natural Resource Technician Name Role Phone Meng King MD Primary Care Provider [phone] Encounter Details Date Type Department Care Team (Late st Contact Info) Description 09/29/[address] [facility] [place] [address] [place] [phone] Social History Tobacco Use Types Packs/Day Years Used Date Smoking Tobacco: Never Assessed Comments Unknown Sex and Gender Information Value Date Recorded Sex Assigned at Not on file Legal Sex Female 4:09 AM MASSEUR/MASSEUSE Gender Identity Not on file Sexual Orientation Not on file documented as of this encounter Plan of Treatment Not on file documented as of this encounter Procedures Procedure Name Priority Date/Time Associated Diagnosis Comments CBC WITH DIFFERENTIAL Routine 09/29/2008 11:19 AM MASSEUR/MASSEUSE HCG QUANTITATIVE, BLOOD Routine 09/29/2008 11:19 AM MASSEUR/MASSEUSE documented in this encounter Results * (ABNORMAL) CBC WITH DIFFERENTIAL (09/29/2008 11:19 AM MASSEUR/MASSEUSE) HEMATOCRIT 44.3(H) 35.5 - 44.0 % [facility] RDW-STDEV 41.9 37.1 - 48.7 fL [facility] RBC 5.22(H) 3.90 - 4.90 M/uL [facility] MCHC 34.5 31.5 - 35.5 % [facility] MCV 84.9 82.0 - 99.0 fL [facility] PLATELETS 370(H) 140 - 350 K/uL [facility] HEMOGLOBIN 15.3(H) 11.8 - 14.8 g/dL [facility] RDW 13.6 11.5 - 14.5 % [facility] WBC 9.1 4.0 - 9.8 K/uL [facility] MCH 29.3 27.2 - 32.6 pg [facility] MPV 9.5 9.3 - 12.4 fL [facility] BASOPHILS 0 0 - 2 % [facility] BASOPHILS ABSOLUTE 0.02 0.00 - 0.20 K/uL [facility] MONOCYTES 5 3 - 13 % [facility] MONOCYTE ABSOLUTE 0.48 0.10 - 1.30 K/uL [facility] NEUTROPHILS 57 45 - 70 % [facility] NEUTROPHIL ABSOLUTE 5.19 1.90 - 7.00 K/uL [facility] EOSINOPHILS 2 0 - 7 % [facility] EOSINOPHIL ABSOLUTE 0.16 0.00 - 0.70 K/uL [facility] LYMPHOCYTES 35 16 - 45 % [facility] LYMPHOCYTE ABSOLUTE 3.21 0.70 - 4.50 K/uL [facility] Blood specimen (specimen) 09/29/2008 11:19 AM MASSEUR/MASSEUSE 09/29/2008 4:51 PM MASSEUR/MASSEUSE us Brando Dupont Mai, MD HEMATOLOGY ORDERABLES Edited INTERFACE SYSTEM Refer to clinic/hospital department [facility] CLIA# [id number] [address] [place] [address] * HCG QUANTITATIVE, BLOOD (09/29/2008 11:19 AM MASSEUR/MASSEUSE) HCG QUANT, BLOOD <5 0 - 5 mIU/mL [facility] Comment: Result of 5 - 25 [...] evidence. Blood specimen (specimen) 09/29/2008 11:19 AM MASSEUR/MASSEUSE 09/29/2008 4:51 PM MASSEUR/MASSEUSE Brando Dupont Mai, MD CHEMISTRY ORDERABLES Edited INTERFACE SYSTEM Refer to clinic/hospital department [facility] CLIA# [id number] [address] [place] [address] documented in this encounter Visit Diagnoses Not on filedocumented in this encounter Additional Health Concerns Infection Onset Date Last Indicated Resolved Time COVID-19 08/24/2020 08/24/2020 09/23/2020 1:16 AM MASSEUR/MASSEUSE documented as of this encounter Care Teams Natural Resource Technician Relationship Specialty Start Date End Date Meng King MD [address] [place] [address] PCP - General Family Practice 11/15/23 documented as of this encounter
--- OUTSIDE RECORDS SUMMARY | 2025-04-13 13:57 | XMS_ITS | Encounter Summary ---
Author Organization [facility] Address [address] [place] [address] Care Team Providers Care Telecommunications Analyst Name Role Phone Dionicio Colindres Primary Care Provider Encounter Details Date Type Department Care Team (Late st Contact Info) Description 11/15/2022 Lab Requisition [facility] [address], [place] [address] [place] [address] [place] [id number] Social History Tobacco Use Types Packs/Day Years Used Date Smoking Tobacco: Former Cigarettes 1 4 1 08/13/2009 - 06/13/2014 Smokeless Tobacco: Never Alcohol Use Standard Drinks/Week Comments Yes 0 (1 standard drink = 0.6 oz pur e alcohol) occasionally Comments No Sex and Gender Information Value Date Recorded Sex Assigned at Not on file Legal Sex Female 5:59 AM FILM PROCESSING SUPERVISOR Gender Identity Not on file Sexual [...] AM CDT) Case Report Dermatopathology Report Case: [id number] Authorizing Provider: Matthieu Helms MD Collected: 11/14/2022 12:00 AM Ordering Location: [facility] Received: 11/15/2022 09:24 AM [...] by the Dermatopathology Laboratory at [facility], directed by Dr. Karley Astudillo. These tests need not be, and therefore are not, approved by the [place] Food and Drug Administration. The tests are used for clinical purposes. Billing Codes Specimen Charges Stain Charges 44605 1 3 12:37 PM CDT DERMATOPATHOLOGY LABORATORY Embedded Images 3 12:37 PM CDT DERMATOPATHOLOGY LABORATORY Pathology/Cytolog y TISSUE SPECIMEN FROM SKIN / Unknown 11/14/2022 11/15/2022 9:24 AM CDT Matthieu Helms MD LAB - PATHOLOGY/CYTOLOGY O RDERABLES Final Result DERMATOPATHOLOGY LABORATORY [facility] - Department of Dermatology [facility] Medicine [address] [place] [address], [address] [phone] documented in this encounter Visit Diagnoses Not on filedocumented in this encounter Additional Health Concerns Infection Onset Date Last Indicated Resolved Time MRSA 09/24/2020 09/24/2020 documented as of this encounter Care Teams Telecommunications Analyst Relationship Specialty Start Date End Date Dionicio Colindres DO [address] [place] [address] PCP - General Family Medicine 01/03/18 documented as of this encounter
--- OUTSIDE RECORDS SUMMARY | 2025-04-13 13:57 | XMS_ITS | Encounter Summary ---
Author Organization [employer] Address [address] [place] [address] Care Team Providers Care Research Fellow Name Role Phone Meng King MD Primary Care Provider [phone] Encounter Details Date Type Department Care Team (Latest Contact Info) Description 10/24/2008 Outpatient Historical HIS [facility] [place] [address] [facility] [place] [phone] Acute Upper Respiratory Infections of Unspecified Site; Bronchitis, not Specified as Acute or Chronic; Tobacco Use Disorder; Pure Hypercholesterolemia Social History Tobacco Use Types Packs/Day Years Used Date Smoking Tobacco: Never Assessed Comments Unknown Sex and Gender Information Value Date Recorded Sex Assigned at Not on file Legal Sex Female 4:09 AM REIMBURSEMENT COUNSELOR Gender Identity Not on file Sexual Orientation [...] Time COVID-19 08/24/2020 08/24/2020 09/23/2020 1:16 AM REIMBURSEMENT COUNSELOR documented as of this encounter Care Teams Research Fellow Relationship Specialty Start Date End Date Meng King MD [address] [place] [phone] PCP - General Family Practice 11/15/23 documented as of this encounter
--- OUTSIDE RECORDS SUMMARY | 2025-04-13 13:57 | XMS_ITS | Clinical Summary ---
Author Organization [facility] Address [address] [place] [address] Phone Care Team Providers Care Life Underwriter Name Role Phone Ira Metz APRN, [place] Primary Care Provider + Suly Alfonso MD Unavailable [phone] Allergies No known active allergies Medications cyclobenzaprine (FLEXERIL) 5 MG Tablet Take [...] Take 2 g by mouth daily. Active Norethin Simone-Eth Estrad-FE (Jemima FE 1.5/30) 1.5-30 MG-MCG Tablet Take 1 Tablet by mouth daily. Active Active Problems Problem Noted Date Diagnosed Date Iron deficiency anemia, unspecified 04/01/2025 Arthralgia 03/24/2025 Neck swelling 03/24/2025 Generalized abdominal pain 12/11/2024 Arthritis 11/05/2024 Heart murmur 11/05/2024 Hemorrhoids 11/05/2024 Migraine 11/05/2024 Obesity 11/05/2024 Palpitations 11/05/2024 Iron deficiency 11/05/2024 Brain tumor 11/05/2024 Enlarged lymph nodes 11/05/2024 Family history of polycythemia 11/05/2024 Axillary lymphadenopathy 11/05/2024 Encounters Date Type Department Care Team Description 04/01/2025 Telephone [facility] [address] [place] [address] Raffy Mcdaniel MD 03/24/2025 8:40 AM CDT Lab [facility] [address] [place] [address] Raffy Mcdaniel MD Iron deficiency Discharge Disposition: Discharged to home or Selfcare 03/24/2025 8:20 AM CDT Office Visit [facility] [address] [place] [address] Raffy Mcdaniel MD Iron deficiency (Primary Dx); Neck swelling; Family history of polycythemia; Arthralgia, unspecified joint Discharge Disposition: Discharged to home or Selfcare 03/24/2025 Travel 03/18/2025 1:08 PM CDT - 03/18/2025 11:59 PM CDT Hospital Encounter [facility] [address] [place] [address] Raffy Mcdaniel MD Discharge Disposition: Discharged to home or Selfcare 03/18/2025 Travel 02/05/2025 Telephone [facility] [address] [place] [address] Raffy Mcdaniel MD from Last 3 Months Family History Medical [...] on file Legal Sex Female 1:41 PM POLARITY TESTER Gender Identity Not on file Sexual Orientation Not on file Last Filed Vital Signs Vital Sign Reading Time Taken Comments Blood Pressure 140/88 03/24/2025 8:29 AM CDT Pulse 74 03/24/2025 8:29 AM CDT Temperature 36.7 C (98.1 F) 03/24/2025 8:29 AM CDT Respiratory Rate 20 03/24/2025 8:29 AM CDT Oxygen Saturation 100% 03/24/2025 8:29 AM CDT Inhaled Oxygen Concentration - - Weight 111.6 kg (246 lb 1.6 oz) 03/24/2025 8:29 AM CDT Height 167.6 cm (5' 6) 03/24/2025 8:29 AM CDT Body Mass Index 39.72 03/24/2025 8:29 AM CDT Plan of Treatment Upcoming Encounters Date Type Department Care Team (Late st Contact Info) Description 04/22/2025 9:00 AM CDT [facility] [address] [place] [address] Raffy Mcdaniel MD [address] [place] [address] Discharge Disposition: Discharged to home or Selfcare 06/17/2025 9:00 AM POLARITY TESTER Lab [facility] [address] [place] [address] Raffy Mcdaniel MD [address] [place] [address] Discharge Disposition: Discharged to home or Selfcare 06/24/2025 10:20 AM POLARITY TESTER Office Visit [facility] [address] [place] [address] Raffy Mcdaniel MD [address] [place] [address] Discharge Disposition: Discharged to home or Selfcare Health Maintenance Due Date Last Done Comments Hepatitis C Virus (HCV) Screening 1985 Hepatitis B Immunization (1 of 3 - 19+ 3-dose series) 2004 Pap Smear 2006 Human Papillomavirus (HPV) Immunization (1 - 3-dose SCDM series) 2012 Cervical Cancer Screening (CCS) 2015 HPV/Cotest 2015 SARS-COV-2 Immunization (2023- season) 2024 Influenza Immunization (#1) 04/13/2025/10/2016, 06/11/2015, 07/13/2010 Respiratory Syncytial Virus (RSV) Immunization [...] Priority Date/Time Associated Diagnosis Comments CBC WITH AUTO DIFFERENTIAL Routine 03/24/2025 9:20 AM CDT Iron deficiency IRON,TRANSFERN,CALC.T IBC,%SAT Routine 03/24/2025 9:20 AM CDT Iron deficiency FERRITIN Routine 03/24/2025 9:20 AM CDT Iron deficiency COMPLETE BLOOD COUNT (CBC) WITH DIFF Routine 03/24/2025 9:20 AM CDT Iron deficiency CT SOFT TISSUE NECK W CONTRAST Routine 03/18/2025 1:59 PM CDT Neck swelling POCT CREATININE Routine 03/18/2025 1:45 PM CDT from Last 3 Months Results * (ABNORMAL) IRON,TRANSFERN,CALC.TIBC,%SAT (03/24/2025 9:20 AM CDT) IRON 34 25 - 156 mcg/dL 03/24/2025 10:24 AM CDT [facility] TRANSFERRIN 338 180 - 382 mg/dL 03/24/2025 10:24 AM CDT [facility] TIBC, CALCULATED 423 265 - 497 mcg/dL 03/24/2025 10:24 AM CDT [facility] % SATURATION * 8(L) 15 - 62 % 03/24/2025 10:24 AM CDT [facility] Blood Venipuncture / Unknown 03/24/2025 9:20 AM CDT 03/24/2025 9:20 AM CDT us Raffy Mcdaniel MD CHEMISTRY ORDERABLES Fin al Result [facility] [address] [place] [address] * (ABNORMAL) CBC WITH AUTO DIFFERENTIAL (03/24/2025 9:20 AM CDT) WBC 6.58 4.00 - 12.00 10(3)/mcL 03/24/2025 9:55 AM CDT [facility] RBC 5.39(H) 3.80 - 5.30 10(6)/mcL 03/24/2025 9:55 AM CDT [facility] HEMOGLOBIN (HGB) 12.8 12.0 - 15.8 g/dL 03/24/2025 9:55 AM CDT [facility] HEMATOCRIT (HCT) 40.4 36.0 - 47.0 % 03/24/2025 9:55 AM CDT [facility] MCV 75.0(L) 82.0 - 96.0 fL 03/24/2025 9:55 AM CDT [facility] MCH 23.7(L) 26.0 - 34.0 pg 03/24/2025 9:55 AM CDT [facility] MCHC 31.7 31.0 - 36.0 g/dL 03/24/2025 9:55 AM CDT [facility] PLATELET COUNT 328 140 - 440 10(3)/mcL 03/24/2025 9:55 AM CDT [facility] RDW 15.4 11.8 - 15.5 % 03/24/2025 9:55 AM CDT [facility] MPV 8.8(L) 9.7 - 12.4 fL 03/24/2025 9:55 AM CDT [facility] NEUTROPHILS 66.2 47.0 - 73.0 % 03/24/2025 9:55 AM CDT [facility] LYMPHOCYTES 27.5 18.0 - 42.0 % 03/24/2025 9:55 AM CDT [facility] MONOCYTES 4.6 4.0 - 12.0 % 03/24/2025 9:55 AM CDT [facility] EOSINOPHILS 0.9 0.0 - 5.0 % 03/24/2025 9:55 AM CDT [facility] BASOPHILS 0.5 0.0 - 1.0 % 03/24/2025 9:55 AM CDT [facility] IMMATURE GRANULOCYTE 0.3 0.0 - 0.4 % 03/24/2025 9:55 AM CDT [facility] Comment:Immature Granulocyte s includes Metamyelocytes, Myelocytes, and Promyelocytes. ABSOLUTE NEUTROPHILS 4.36 1.60 - 7.70 10(3)/mcL 03/24/2025 9:55 AM CDT [facility] ABSOLUTE LYMPHOCYTES 1.81 1.30 - 3.20 10(3)/mcL 03/24/2025 9:55 AM CDT [facility] ABSOLUTE MONOCYTES 0.30 0.20 - 1.00 10(3)/mcL 03/24/2025 9:55 AM CDT [facility] ABSOLUTE EOSINOPHIL 0.06 0.00 - 0.40 10(3)/mcL 03/24/2025 9:55 AM CDT [facility] ABSOLUTE BASOPHILS 0.03 0.00 - 0.10 10(3)/mcL 03/24/2025 9:55 AM CDT [facility] ABSOLUTE IMMATURE GRANULOCYTE 0.02 0.00 - 0.03 10 (3) mcL. 03/24/2025 9:55 AM CDT [facility] NRBC PER 100 WBC 0 03/24/20 9:55 AM CDT [facility] Blood Venipuncture / Unknown 03/24/2025 9:20 AM CDT 03/24/2025 9:20 AM CDT Raffy Mcdaniel MD HEMATOLOGY ORDERABLES Fi nal Result Performing Organization Address City/[facility]/ZIP Co de Phone Number [facility] [address] [place] [address] * FERRITIN (03/24/2025 9:20 AM CDT) FERRITIN 20 5 - 204 ng/mL 03/24/2025 10:35 AM CDT [facility] Blood Venipuncture / Unknown 03/24/2025 9:20 AM CDT 03/24/2025 9:20 AM CDT Raffy Mcdaniel MD CHEMISTRY ORDERABLES Fin al Result Performing Organization Address City/[facility]/ZIP Co de Phone Number [facility] [address] [place] [address] * CT SOFT TISSUE NECK W CONTRAST (03/18/2025 1:59 PM CDT) Anatomical Region Laterality Modality Spine N/A Computed Tomogra phy 03/18/2025 4:11 PM CDT Impressions 03/18/2025 4:14 PM CDT IMPRESSION: No mass or adenopathy by size criteria in the neck. A pair of subcentimeter lymph nodes are present subjacent to the BB skin marker in the right neck, which are stable compared to 04/06/2023. Narrative 03/18/2025 4:14 PM CDT EXAM DESCRIPTION: CT SOFT TISSUE NECK W CONTRAST REASON FOR STUDY: Right neck swelling x years. Ultrasound 12/27/24-recommended CT with skin marker. TECHNIQUE: Post IV contrast scanning from skull base through lung apices. Reconstructed MPR images reviewed. All images stored on PACS. Automated exposure control was used as a dose optimization technique for this examination. CONTRAST TYPE/DOSE: 100mL of IOPAMIDOL 76 % IV SOLN injected via Intravenous COMPARISON: Right neck ultrasound from 12/17/2024. PET-CT from 04/06/2013. FINDINGS: A BB marker is present in the posterolateral right neck. Subjacent to the marker there is a pair of adjacent lymph nodes that measure 8 x 5 mm in aggregate on image 62 of series 2 which are not frankly enlarged and are unchanged compared to 04/06/2023 PET-CT. There is no adenopathy by size criteria. No masses are seen. No masses are other abnormality are seen in the oral cavity, pharynx, larynx or visualized esophagus trachea. The laryngeal cartilages appear unremarkable. MAJOR SALIVARY GLANDS: No solid or cystic masses. No inflammatory changes. THYROID: Normal size. No nodules greater than 1 cm. VASCULATURE: No apparent critical stenosis or occlusion. INTRACRANIAL/SKULL BASE/INCLUDED ORBITS: Limited intracranial evaluation. No abnormal findings. PARANASAL SINUSES: Well-aerated. CERVICAL SPINE: Multilevel degenerative disc disease, up to [id number] at C6-C7. No aggressive bone lesion or acute fracture is seen grossly. LUNG APICES: Partially visualized small cyst in the left upper lobe, unchanged in its visualized portions.. OTHER: No other significant finding. THIS IS AN ELECTRONICALLY VERIFIED FINAL REPORT 03/18/2025 4:11 PM - Electronically signed by Hilton Levin M.D. MZ: LORI Report ID: [id number] Reading Location: [id number] Procedure Note Hilton Levin MD - 03/18/2025 EXAM DESCRIPTION: CT SOFT TISSUE NECK W CONTRAST REASON FOR STUDY: Right neck swelling x years. Ultrasound 12/27/24-recommended CT with skin marker. TECHNIQUE: Post IV contrast scanning from skull base through lung apices. Reconstructed MPR images reviewed. All images stored on PACS. Automated exposure control was used as a dose optimization technique for this examination. CONTRAST TYPE/DOSE: 100mL of IOPAMIDOL 76 % IV SOLN injected via Intravenous COMPARISON: Right neck ultrasound from 12/17/2024. PET-CT from 04/06/2013. FINDINGS: A BB marker is present in the posterolateral right neck. Subjacent to the marker there is a pair of adjacent lymph nodes that measure 8 x 5 mm in aggregate on image 62 of series 2 which are not frankly enlarged and are unchanged compared to 04/06/2023 PET-CT. There is no adenopathy by size criteria. No masses are seen. No masses are other abnormality are seen in the oral cavity, pharynx, larynx or visualized esophagus trachea. The laryngeal cartilages appear unremarkable. MAJOR SALIVARY GLANDS: No solid or cystic masses. No inflammatory changes. THYROID: Normal size. No nodules greater than 1 cm. VASCULATURE: No apparent critical stenosis or occlusion. INTRACRANIAL/SKULL BASE/INCLUDED ORBITS: Limited intracranial evaluation. No abnormal findings. PARANASAL SINUSES: Well-aerated. CERVICAL SPINE: Multilevel degenerative disc disease, up to [id number] at C6-C7. No aggressive bone lesion or acute fracture is seen grossly. LUNG APICES: Partially visualized small cyst in the left upper lobe, unchanged in its visualized portions.. OTHER: No other significant finding. THIS IS AN ELECTRONICALLY VERIFIED FINAL REPORT 03/18/2025 4:11 PM - Electronically signed by Hilton Levin M.D. MZ: LORI Report ID: [id number] Reading Location: [id number] IMPRESSION: No mass or adenopathy by size criteria in the neck. A pair of subcentimeter lymph nodes are present subjacent to the BB skin marker in the right neck, which are stable compared to 04/06/2023. Raffy Eboni Mcdaniel MD IM CT ORDERABLES Final Result * POCT Creatinine (03/18/2025 1:45 PM CDT) CREATININE - POCT 0.7 0.6 - 1.3 mg/dL 03/18/2025 2:38 PM CDT [facility] Blood 03/18/2025 1:45 PM CDT 03/18/2025 2:38 PM CDT us None Provider POINT OF CARE TESTING Final Resu lt [facility] [address] [place] [address] from Last 3 Months Insurance MEDICARE Care Teams Life Underwriter Relationship Specialty Start Date End Date Ira Metz APRN, [place] [address] [facility] [address] [place] [address] PCP - General Advanced Practice Nurse 08/14/24 Suly Alfonso MD [address] [place] [address] Obstetrics & Gynecology 11/05/24
--- OUTSIDE RECORDS SUMMARY | 2025-04-13 13:57 | XMS_ITS | Encounter Summary ---
Author Organization [employer] Address [address] [place] [address] Care Team Providers Care Online Advertising Manager Name Role Phone Meng King MD Primary Care Provider [phone] Encounter Details Date Type Department Care Team (Late st Contact Info) Description 03/13/2009 Emergency HIS [facility] Er, Authorized P NO ADDRESS ON FILE Landon Yadav MD [facility] [place], [place] [id number] Threatened , Antepartum; Tobacco Use Disorder Social History Tobacco Use Types Packs/Day Years Used Date Smoking Tobacco: Never Assessed Comments Unknown Sex and Gender Information Value Date Recorded Sex Assigned at Not on file Legal Sex Female 4:09 AM LOAN PROCESSING SUPERVISOR Gender Identity Not on file [...] PM CDT) HISTORY CHECK No Historical ABO/Rh [facility] SPECIMEN LIFE 3 days from drawdate [facility] ABO/RH TYPE B Positive [facility] Blood specimen (specimen) 03/13/2009 6:32 PM CDT Landon Yadav MD BLOOD BANK ORDERABLES Edited INTERFACE SYSTEM Refer to clinic/hospital department [facility] CLIA# [id number] [address] [facility] [place], [place] [address] * (ABNORMAL) CBC WITH DIFFERENTIAL (03/13/2009 6:30 PM CDT) PLATELETS 301 140 - 350 K/uL [facility] HEMOGLOBIN 15.7(H) 11.8 - 14.8 g/dL [facility] RDW 13.5 11.5 - 14.5 % [facility] WBC 11.9(H) 4.0 - 9.8 K/uL [facility] MCH 29.7 27.2 - 32.6 pg [facility] MPV 8.9(L) 9.3 - 12.4 fL [facility] HEMATOCRIT 44.6(H) 35.5 - 44.0 % [facility] RDW-STDEV 41.1 37.1 - 48.7 fL [facility] RBC 5.28(H) 3.90 - 4.90 M/uL [facility] MCHC 35.2 31.5 - 35.5 % [facility] MCV 84.5 82.0 - 99.0 fL [facility] EOSINOPHILS 1 0 - 7 % [facility] EOSINOPHIL ABSOLUTE 0.17 0.00 - 0.70 K/uL [facility] LYMPHOCYTES 31 16 - 45 % [facility] LYMPHOCYTE ABSOLUTE 3.69 0.70 - 4.50 K/uL [facility] BASOPHILS 0 0 - 2 % [facility] BASOPHILS ABSOLUTE 0.03 0.00 - 0.20 K/uL [facility] MONOCYTES 6 3 - 13 % [facility] MONOCYTE ABSOLUTE 0.66 0.10 - 1.30 K/uL [facility] NEUTROPHILS 62 45 - 70 % [facility] NEUTROPHIL ABSOLUTE 7.36(H) 1.90 - 7.00 K/uL [facility] Blood specimen (specimen) 03/13/2009 6:30 PM CDT 03/13/2009 6:40 PM CDT Landon Yadav MD HEMATOLOGY ORDERABLES Edited [facility] CLIA# [id number] [address] [place] [address] * (ABNORMAL) HCG QUANTITATIVE, BLOOD (03/13/2009 6:30 PM CDT) HCG QUANT, BLOOD 39(H) 0 - 5 mIU/mL [facility] Comment: Result of 5 [...] us Landon Yadav MD CHEMISTRY ORDERABLES Edited [facility] CLIA# [id number] [address] [facility] [place] [address] documented in this encounter Visit Diagnoses Diagnosis Threatened , antepartum Tobacco use disorder documented in this encounter Additional Health Concerns Infection Onset Date Last Indicated Resolved Time COVID-19 08/24/2020 08/24/2020 09/23/2020 1:16 AM LOAN PROCESSING SUPERVISOR documented as of this encounter Care Teams Online Advertising Manager Relationship Specialty Start Date End Date Meng King MD [address] [place] [address] PCP - General Family Practice 11/15/23 documented as of this encounter
--- OUTSIDE RECORDS SUMMARY | 2025-04-13 13:57 | XMS_ITS | Encounter Summary ---
Author Organization [employer] Address [address] [place] [address] Care Team Providers Care Lieutenant Fire Fighter Name Role Phone Meng King MD Primary Care Provider [phone] Encounter Details Date Type Department Care Team (Latest Contact Info) Description 09/19/2008 Outpatient Historical HIS [facility] Teja Bearden MD NO ADDRESS ON FILE Viral Infection; Tobacco Use Disorder; Encounter for Long-Term (Current) Use of Other Medications; Pure Hypercholesterolemia Social History Tobacco Use Types Packs/Day Years Used Date Smoking Tobacco: Never Assessed Comments Unknown Sex and Gender Information Value Date Recorded Sex Assigned at Not on file Legal Sex Female 4:09 AM TRANSCRIPT CLERK Gender Identity Not on file Sexual Orientation Not on file documented as of this encounter Plan of Treatment Not on file documented as of this encounter Procedures Procedure Name Priority Date/Time Associated Diagnosis Comments BETA STREP ONLY CULTURE Routine 09/19/2008 2:51 PM TRANSCRIPT CLERK documented in this encounter Results * BETA STREP ONLY CULTURE (09/19/2008 2:51 PM TRANSCRIPT CLERK) PRELIMINARY REPORT Pending [facility] FINAL REPORT No Group A, C, or G beta Streptococcus isolated. [facility] Specimen from throat (specimen) 09/19/2008 2:51 PM TRANSCRIPT CLERK 09/19/2008 7:48 PM TRANSCRIPT CLERK us Teja Nina MD MICROBIOLOGY - GENERAL ORDER LAZ Final Result INTERFACE SYSTEM Refer to clinic/hospital department [facility] CLIA# [id number] [address] [place] [address] documented in this encounter Visit Diagnoses Diagnosis Unspecified viral infection, in conditions classified elsewhere and of unspecified site Tobacco use disorder Encounter for long-term (current) use of other medications Pure hypercholesterolemia documented in this encounter Additional Health Concerns Infection Onset Date Last Indicated Resolved Time COVID-19 08/24/2020 08/24/2020 09/23/2020 1:16 AM TRANSCRIPT CLERK documented as of this encounter Care Teams Lieutenant Fire Fighter Relationship Specialty Start Date End Date Meng King MD [address] [place] [address] PCP - General Family Practice 11/15/23 documented as of this encounter
--- OUTSIDE RECORDS SUMMARY | 2025-04-13 13:57 | XMS_ITS | Clinical Summary ---
Author Organization [facility] Address [address] [place] [address] Care Team Providers Care Contract Serviceman Name Role Phone Daisha Staley MD Primary [...] 07/25/2023 Assessment & Plan (09/17/2023 2:32 PM DENTAL RECEPTIONIST): Unable to tolerate bupropion, discussed possibly starting chantix vs gum/patches, she plans to try patches. Assessment & Plan (07/25/2023 9:24 AM DENTAL RECEPTIONIST): We discussed the risks of smoking including cardiovascular disease, pulmonary disease, osteoporosis and cancer risks. We talked about reducing risks through smoking cessation. We reviewed approaches to quitting smoking including behavioral changes; nicotine replacement with gums, patches, lozenges; medications such as buproprion or chantix. I also gave resources such as [facility] smoking cessation clinic and 0-057-PYRE-NOW for additional support. I spent 4 minutes discussing smoking and smoking cessation. Rx for bupropion sent. Chlamydia contact 03/26/2023 Psoriatic arthritis 02/20/2023 Assessment & Plan (07/25/2023 9:24 AM DENTAL RECEPTIONIST): Patient transitioning care to [facility], had been on steroids and leflunomide, stopped on her own, feels her symptoms are stable. Will refer to rheumatology. Assessment & Plan (02/20/2023 1:57 PM CDT): Follows with rheumatology. Stable. History of gestational diabetes 02/20/2023 Lymphadenopathy 02/20/2023 Assessment & Plan (07/25/2023 9:25 AM DENTAL RECEPTIONIST): Has had lymph node dissection in the past, with benign pathology, notes worsening again, especially since off steroids. Will refer to hematology for further evaluation. Assessment & Plan (02/20/2023 1:57 PM CDT): Has had lymph node dissection in the past, with benign pathology. Has follow up with hematology scheduled. Will monitor. Lumbar disc herniation with radiculopathy 2016 Assessment & Plan (09/17/2023 2:31 PM DENTAL RECEPTIONIST): Patient currently taking tramadol daily as well [...] Date Smoking Tobacco: Every Day Cigarettes 1 12.7 Started: 2012 Smokeless Tobacco: Never Tobacco Cessation:Ready [...] on file Legal Sex Female 4:23 PM DENTAL RECEPTIONIST Gender Identity Not on file Sexual Orientation Not on file Obstetrics History Last Filed Vital Signs Vital Sign Reading Time Taken Comments Blood Pressure 120/80 09/17/2023 9:43 AM DENTAL RECEPTIONIST Pulse 88 09/17/2023 9:43 AM DENTAL RECEPTIONIST Temperature - - Respiratory Rate - - Oxygen Saturation 98% 09/17/2023 9:43 AM DENTAL RECEPTIONIST Inhaled Oxygen Concentration - - Weight 97.5 kg (214 lb 14.4 oz) 09/17/2023 9:43 AM DENTAL RECEPTIONIST Height 167.6 cm (5' 6) 09/17/2023 9:43 AM DENTAL RECEPTIONIST Body Mass Index 34.69 09/17/2023 9:43 AM DENTAL RECEPTIONIST Plan of Treatment Health Maintenance Due Date Last Done Comments Cervical Cancer Screening 1985 Hepatitis C Screening 1985 Varicella Vaccines (1 of 2 - 13+ 2-dose series) 1998 Hepatitis B Screening 2003 Pneumococcal vaccine <65 (1 of 2 - PCV) 2004 Zoster Vaccine (1 of 2) 2004 HPV Vaccines (1 - 3-dose SCDM series) 2012 DTaP/Tdap/Td Vaccine (2 - Td or Tdap) 11/25/2020 Depression Screening 02/21/2024 02/20/2023 Regular Well Visit/Exam 18-64 02/21/2024 02/20/2023 Influenza Vaccine (#1) 2025 7, 06/11/2015, 07/13/2010 Insurance MEDICARE MEDICARE [place] [employer] Care Teams Contract Serviceman Relationship Specialty Start Date End Date Daisha Staley MD [facility] [address] Brett MON [address] [place] [id number] PCP - General Internal Medicine 02/06/23
--- OUTSIDE RECORDS SUMMARY | 2025-04-13 13:57 | XMS_ITS | Clinical Summary ---
Author Organization [facility] Address [address] [place] [address] Care Team Providers Care Meter Reading Clerk Name Role Phone Bernadine Dionicio Arnel Primary Care Provider [phone] Source Comments [facility],non-owned Affiliates and Associated Physician Practices is amultiple site organization consisting of ambulatory clinics and hospital sitesin [place], [place]. This disclosure is being madepursuant to the Care Everywhere program and may not contain all information available regarding this patient. 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 09/24/2020 Insurance [place] SELF PAY NO INSURANCE Member Subscriber Plan / Payer (Ef fective for All Dates) Name:Vera Parker Member ID:Not on file Relation to Subscriber:Not on file Name:VERA PARKER Subscriber ID:Not on file Address: [address] [place] [address] Payer ID:Not on file Group ID:Not on file Type:Self Pay Address: [place], [place] MEDICARE SELF PAY NO INSURANCE Member Subscriber Plan / Payer (Ef fective for All Dates) Name:Vera Parker Member ID:Not on file Relation to Subscriber:Not on file Name:VERA PARKER Subscriber ID:Not on file Address: [address] [place] [address] Payer ID:Not on file Group ID:Not on file Type:Self Pay Address: [place], [place] MEDICARE SELF PAY NO INSURANCE Member Subscriber Plan / Payer (Ef fective for All Dates) Name:Vera Parker Member ID:Not on file Relation to Subscriber:Not on file Name:VERA PARKER Subscriber ID:Not on file Address: [address] [place] [address] Payer ID:Not on file Group ID:Not on file Type:Self Pay Address: [place], [place] * Guarantor: VERA PARKER Account Type Relation to Patient Date of Phone Billing Address Personal/Family [address] [place] [address] MEDICARE SELF PAY NO INSURANCE Member Subscriber Plan / Payer (Ef fective for All Dates) Name:Vera Parker Member ID:Not on file Relation to Subscriber:Not on file Name:VERA PARKER Subscriber ID:Not on file Address: [address] [place] [address] Payer ID:Not on file Group ID:Not on file Type:Self Pay Address: [place], [place] * Guarantor: VERA PARKER Account Type Relation to Patient Date of Phone Billing Address Personal/Family [address] [place] [address] MEDICARE Member Subscriber Plan / Payer (Ef fective for All Dates) Name:Vera Parker Member ID:[id number] Relation to Subscriber:Self Name:Winifred Vera Najera Subscriber ID:[id number] Payer ID:Not on file Group ID:Not on file Type:Medicare Address: [place] [id number] SELF PAY NO INSURANCE Member Subscriber Plan / Payer (Ef fective for All Dates) Name:Vera Parker Member ID:Not on file Relation to Subscriber:Not on file Name:VERA PARKER Subscriber ID:Not on file Address: [address] [place] [address] Payer ID:Not on file Group ID:Not on file Type:Self Pay Address: [place], [place] * Guarantor: VERA PARKER Account Type Relation to Patient Date of Phone Billing Address Personal/Family [address] [place] [address] MEDICARE SELF PAY NO INSURANCE Member Subscriber Plan / Payer (Ef fective for All Dates) Name:Vera Parker M Member ID:Not on file Relation to Subscriber:Not on file Name:VERA PARKER Subscriber ID:Not on file Address: [address] [place] [address] Payer ID:Not on file Group ID:Not on file Type:Self Pay Address: [place], [place] Advance Directives * Full Code (Latest Code Status on File) Date Activated Date Inactivated Comments 08/22/2010 10:42 AM 08/22/2010 11:57 PM * Full Code Date Activated Date Inactivated Comments 02/14/2010 1:50 PM 02/17/2010 5:57 AM * Full Code Date Activated Date Inactivated Comments 02/11/2010 8:28 PM 02/14/2010 1:50 PM Care Teams Meter Reading Clerk Relationship Specialty Start Date End Date Dionicio Colindres DO [address] [place] [id number] PCP - General Family Medicine 01/03/18
[2025-04-13 14:10] VITALS: BP 150/97; PULSE 87; RESP 19; TEMP 36.7; O2SAT 99
--- NOTE | 2025-04-13 14:15 | ED_ITS ---
HPI - Chest Pain General Chief Complaint: Chest Pain Stated Complaint: chest pain Time Seen by Provider: 04/13/25 13:56 History of Present Illness HPI narrative: Patient is a 39-year-old female who presents to the ER with left chest pounding. She reports approximately 2 weeks ago she started sweating excessively. Earlier today she started experiencing palpitations. Patient reports this is never happened to her before. She denies any recent cough, wheezing, fever. Patient endorses intermittent shortness of breath. Her last menstrual period was March 20, 2025. Patient endorses a history of a non malignant brain tumor, back surgery, and anemia. Related Data Home Medications ?Medication ?Instructions ?Recorded ?Confirmed ?Last Taken ?Type ferrous sulfate 325 mg (65 mg 325 mg PO BID 10/30/23 0 03/18/25 08/15/24 History iron) tablet inulin 2 gram chewable tablet 2 g PO DAILY 07/28/2408/15/24 History (Fiber Gummies) Allergies Allergy/AdvReac Type Severity Reaction Status Date / Time No Known Allergies Allergy Verified 03/18/25 09:03 Review of Systems 2 Review of Systems: All systems reviewed & are unremarkable except as noted in HPI and below PMFSH Past Medical History Medical History Lumbar radiculopathy, right Gallbladder disorder BMI 40.0-44.9, adult Apical abscess Abdominal pain Low back pain radiating to both legs Migraine syndrome Colloid cyst of brain History of brain tumor Tobacco abuse Elevated rheumatoid factor Abnormal stools Colloid cyst of third ventricle hx of Abnormal positron emission tomography (PET) scan Murmur Low back pain Encounter to establish care Anemia Elevated liver enzymes RUQ pain Osteoporosis Spina bifida occulta Headache Arthritis Allergies Surgical History Surgical History H/O tubal ligation 2014 H/O of hemilaminectomy 2024 S/P left oophorectomy Hx of lymph node excision Right axillary LN, 10/2014, follicular hyperplasia S/P cholecystectomy 02/2010 Previous section 2010, 2016, 2018 History of craniotomy 2017; removal of colloid cyst third ventricle Family History Family History Father Diabetes mellitus Hypertension Heart disease Thyroid disorder Mother Hypertension Grandparent Diabetes mellitus maternal grandmother and paternal grandfather Leukemia Grandparent Heart disease Malignant neoplasm of prostate Other Myelofibrosis Polycythemia vera Social History Social History Years smoked: 10 Smoking status: Current every day smoker Tobacco type: e-cigarettes/vaping Smoking end date: 03/13/24 Additional smoking assessment comments: CURRENTLY VAPING Alcohol intake: never Substance use: never Substance use type: does not use Do You Feel Safe in your Home?: Yes Lack of Transportation: No Lack of Food: Never True Current Housing: I Have Housing Concerned About Future Housing: No Difficulty Paying Gas/Electric Bills: No Difficulty Paying for Meds: No Currently Unemployed: No Education: High School Diploma/GED Difficulty w/ Childcare or Family Care: No Living arrangements: alone Occupation/Education: unemployed Spiritual care concerns: No Exam 2 Narrative: GENERAL: Well appearing, obese, non-toxic, in no acute distress. HEAD: Normocephalic, atraumatic. NECK: Supple. No adenopathy, no masses. RESPIRATORY: Airway patent, respirations nonlabored. Clear to auscultation bilaterally, no rales, rhonchi, wheezing. CARDIOVASCULAR: Regular rate and rhythm with intermittent PVCs, rubs, or gallops. Peripheral pulses 2+ and equal bilaterally. ABDOMINAL: Soft, nontender, nondistended, no hepatosplenomegaly. Normoactive BS. MUSCULOSKELETAL: Moves all extremities. Strength/ROM intact without gross deformities. SKIN: Warm, dry, normal color. No rashes. NEURO: A&O X3. Speech clear. Cranial nerves II-XII intact. No ataxic movements. PSYCHIATRIC: Appropriate mood and affect. Normal interaction. Course Vital Signs Vital signs: Vital Signs Temperature 36.7 C 04/13/25 14:10 Pulse Rate 87 04/13/25 14:10 Respiratory Rate 04/13/25 14:10 Blood Pressure 150/97 H 04/13/25 14:10 Pulse Oximetry 99 04/13/25 14:10 Oxygen Delivery Room Air 04/13/25 14:10 Temperature 36.7 C 04/13/25 14:10 Pulse Rate 87 04/13/25 14:10 Respiratory Rate 19 04/13/25 14:10 Blood Pressure 150/97 H 04/13/25 14:10 Pulse Oximetry 99 04/13/25 14:10 Oxygen Delivery Room Air 04/13/25 14:20 MDM - Chest Pain MDM Narrative Medical decision making narrative: Patient is a 39-year-old female who presents to the ER with left chest pounding. She reports approximately 2 weeks ago she started sweating excessively. Earlier today she started experiencing palpitations. Patient reports this is never happened to her before. She denies any recent cough, wheezing, fever. Patient endorses intermittent shortness of breath. Her last menstrual period was March 20, 2025. Patient endorses a history of a non malignant brain tumor, back surgery, and anemia. She denies any syncopal episodes and reports there is no familial history of cardiac before the age of 50. Labs Ordered: CBC, CMP, troponin, proBNP, UDS, TSH, INR, PTT, lipase, D-dimer Imaging Ordered: CT PE protocol scan, chest x-ray Medications Ordered: Pt declined anxiety medication Results: Pt's CT scan indicates 1. No pulmonary embolism or other acute cardiopulmonary disease. 2. Similar pattern of mosaic attenuation in the dependent lungs most likely related to atelectasis with subsegmental air trapping in the setting of small airway disease. Differential would also include asthma, bronchiolitis obliterans and hypersensitivity pneumonitis. Diagnosis: atypical chest pain Risks: HEART score: low risk HEART Score for Major Cardiac Events from [email or web address] on 04/13/2025 All calculations should be rechecked by clinician prior to use RESULT SUMMARY: 3 points Low Score (0-3 points) Risk of MACE of 0.9-1.7%. INPUTS: History ?> 1 = Moderately suspicious EKG ?> 1 = Non-specific repolarization disturbance Age ?> 0 = <45 Risk factors ?> 1 = 1-2 risk factors Initial troponin ?> 0 = <Normal limit Consults: cardiology (outpatient) Patient Education/Shared MDM: Results of lab work and imaging shared with patient. She reports her symptoms have continued throughout her time in the ER. Her HEART score indicates pt is low risk. Patient strongly advised to maintain hydration status upon discharge and follow-up with her PCP as soon as possible. She will also be referred to cardiology for further evaluation. Pt will not be discharged home with any new prescriptions. Unable to order Holter monitor here in the ER as services are not available on a holiday. Strict return precautions provided. Patient verbalized understanding and is in agreement with plan. Vital signs stable at time of discharge. All questions answered. Differential Diagnosis Differential diagnosis: Likely atypical chest pain, st elevation myocardial infarction, costochondritis and chest pain Lab Data Attestation: I reviewed the patient's lab results. 04/13/25 14:21 04/13/25 14:21 Labs: Lab Results 04/13/25 04/13/25 04/13/25 Range/Units 14:21 14:34 17:04 WBC 7.0 (4.5-10.0) K/mm3 RBC 5.49 H (4.2-5.4) M/mm3 Hgb 12.9 (12.0-15.0) g/dL Hct 41.4 (37.0-47.0) % MCV 75.4 L (80-100) fl MCH 23.5 L (26-34) pg MCHC 31.2 L (32-36) g/dl RDW 15.4 H (11.5-14.5) % Plt Count 287 (150-375) k/mm3 MPV 8.5 (7.4-10.4) fl Immature Gran % (Auto) 0.1 (0-0.5) % Neut % (Auto) 68.1 (45.5-73.1) % Lymph % (Auto) 26.9 (18.3-44.2) % [place] % (Auto) 3.6 (2.6-8.5) % Eos % (Auto) 0.7 (0-4.4) % Baso % (Auto) 0.6 (0.2-1.2) % Lymph # (Auto) 1.89 (0.9-3.2) K/mm3 [place] # (Auto) 0.3 (0.1-0.6) K/mm3 Eos # (Auto) 0.1 (0-0.3) K/mm3 Baso # (Auto) 0.0 (0.0-0.1) K/mm3 Abs Immat Gran (auto) 0.01 (0.00-0.031) K/mm3 Absolute Neuts (auto) 4.8 (1.3-6.7) K/mm3 Absolute Nucleated RBC 0.000 (0.0-0.012) K/mm3 Nucleated RBC % 0.0 (0.0-0.2) % PT 12.9 (11.1-14.7) Seconds INR 1.0 APTT 30.6 (22.3-36.8) Seconds D-Dimer 0.70 H (<0.48) ug/mL Sodium 138 (137-145) mmol/L Potassium 3.7 (3.4-5.0) mmol/L Chloride 104 (98-107) mmol/L Carbon Dioxide 23 (22-30) mmol/L Anion Gap 11 (4-12) mmol/L BUN 18 H (7-17) mg/dL Creatinine 0.74 (0.7-1.0) mg/dL Estim Creat Clear Calc 112 ml/min Estimated GFR > 60 (59 - ) Glucose 123 H (65-110) mg/dL Calcium 9.4 (8.4-10.2) mg/dL Total Bilirubin 0.2 (0.2-1.3) mg/dL AST 32 (14-36) U/L ALT 22 (6-35) U/L Alkaline Phosphatase 120 (38-126) U/L Troponin I < 0.012 < 0.012 (0.000-0.034) ng/mL NT-Pro-B Natriuret Pep 136 H (19.9-100) pg/mL Total Protein 8.0 (6.3-8.2) g/dL Albumin 4.6 (3.5-5.1) g/dL Lipase 177 (23-300) U/L TSH (Reflex) 2.260 (0.465-4.68) uIU/mL Urine Opiates Screen Negative (Negative) Urine Methadone Screen Negative (Negative) Ur Barbiturates Screen Negative (Negative) Ur Phencyclidine Scrn Negative (Negative) Ur Amphetamine Screen Negative (Negative) U Benzodiazepines Scrn Negative (Negative) Urine Cocaine Screen Negative (Negative) U Cannabinoids Screen Negative (Negative) Imaging Data Attestation: I personally reviewed and interpreted this imaging study as follows: Radiologist's impression: Impressions Chest X-Ray 04/13/25 14:34 IMPRESSION: 1. No acute cardiopulmonary disease. Chest CTA 04/13/25 15:24 IMPRESSION: 1. No pulmonary embolism or other acute cardiopulmonary disease. 2. Similar pattern of mosaic attenuation in the dependent lungs most likely related to atelectasis with subsegmental air trapping in the setting of small airway disease. Differential would also include asthma, bronchiolitis obliterans and hypersensitivity pneumonitis. Discharge Plan Discharge Clinical Impression: Atypical chest pain, Heart palpitations Patient Disposition: Home Condition: Stable Instructions: Antibiotic Form, Noncardiac Chest Pain (ED) Additional Instructions: Please return to the ER with any worsening symptoms. Follow-up with primary care provider as soon as possible for further evaluation and treatment. Take all medications as prescribed, including regularly scheduled medications. You may take Tylenol and/or ibuprofen for pain control. If your symptoms continue you may follow-up with Cardiology. Patient Language: Nepali Prescriptions: No Action ferrous sulfate 325 mg (65 mg iron) tablet 325 mg PO BID rizatriptan [Maxalt] 10 mg tablet See Rx Instructions PO .COMPLEX Qty: 10 3RF Rx Instructions: take 1 tab at onset of headache; if no relief may repeat 1 tab after at least 2 hrs; max = 3 tabs/24 hr PO naproxen 500 mg tablet 500 mg PO BID PRN (Reason: pain) Qty: 60 0RF norethindrone-e.estradiol-iron [Junel FE 1.5/30 (28)] 1.5 mg-30 mcg (21)/75 mg (7) tablet 1 tablet PO DAILY Qty: 84 2RF Fiber Gummies 2 gram tablet,chewable 2 g PO DAILY cyclobenzaprine 10 mg tablet 10 mg PO . Q.h.s. PRN (Reason: muscle spasm) Qty: 30 11RF Follow-up/Referrals: Ira Metz NP [Primary Care Provider, Family Practice] Wyatt Iglesias MD [Physician, Cardiology] Referral Note: cardiology Stand Alone Forms: Work/School Release IP Time of Disposition: 18:18
--- OUTSIDE RECORDS SUMMARY | 2025-04-13 14:18 | XMS_ITS | Clinical Summary ---
Author Organization [facility] Address [address] [place] [address] Care Team Providers Care Pre Press Proofer Name Role Phone Daisha Staley MD Primary [...] 07/25/2023 Assessment & Plan (09/17/2023 2:32 PM COPRA SAMPLER): Unable to tolerate bupropion, discussed possibly starting chantix vs gum/patches, she plans to try patches. Assessment & Plan (07/25/2023 9:24 AM COPRA SAMPLER): We discussed the risks of smoking including cardiovascular disease, pulmonary disease, osteoporosis and cancer risks. We talked about reducing risks through smoking cessation. We reviewed approaches to quitting smoking including behavioral changes; nicotine replacement with gums, patches, lozenges; medications such as buproprion or chantix. I also gave resources such as [facility] smoking cessation clinic and 3-998-SPAL-NOW for additional support. I spent 4 minutes discussing smoking and smoking cessation. Rx for bupropion sent. Chlamydia contact 03/26/2023 Psoriatic arthritis 02/20/2023 Assessment & Plan (07/25/2023 9:24 AM COPRA SAMPLER): Patient transitioning care to [facility], had been on steroids and leflunomide, stopped on her own, feels her symptoms are stable. Will refer to rheumatology. Assessment & Plan (02/20/2023 1:57 PM CDT): Follows with rheumatology. Stable. History of gestational diabetes 02/20/2023 Lymphadenopathy 02/20/2023 Assessment & Plan (07/25/2023 9:25 AM COPRA SAMPLER): Has had lymph node dissection in the past, with benign pathology, notes worsening again, especially since off steroids. Will refer to hematology for further evaluation. Assessment & Plan (02/20/2023 1:57 PM CDT): Has had lymph node dissection in the past, with benign pathology. Has follow up with hematology scheduled. Will monitor. Lumbar disc herniation with radiculopathy 2016 Assessment & Plan (09/17/2023 2:31 PM COPRA SAMPLER): Patient currently taking tramadol daily as well [...] on file Legal Sex Female 4:23 PM COPRA SAMPLER Gender Identity Not on file Sexual Orientation Not on file Obstetrics History Last Filed Vital Signs Vital Sign Reading Time Taken Comments Blood Pressure 120/80 09/17/2023 9:43 AM COPRA SAMPLER Pulse 88 09/17/2023 9:43 AM COPRA SAMPLER Temperature - - Respiratory Rate - - Oxygen Saturation 98% 09/17/2023 9:43 AM COPRA SAMPLER Inhaled Oxygen Concentration - - Weight 97.5 kg (214 lb 14.4 oz) 09/17/2023 9:43 AM COPRA SAMPLER Height 167.6 cm (5' 6) 09/17/2023 9:43 AM COPRA SAMPLER Body Mass Index 34.69 09/17/2023 9:43 AM COPRA SAMPLER Plan of Treatment Health Maintenance Due Date [...] 2025 7, 06/11/2015, 07/13/2010 Insurance MEDICARE MEDICARE [place] [employer] Care Teams Pre Press Proofer Relationship Specialty Start Date End Date Daisha Staley MD [facility] [address] Brett MON [address] [place] [id number] PCP - General Internal Medicine 02/06/23
--- OUTSIDE RECORDS SUMMARY | 2025-04-13 14:18 | XMS_ITS | Encounter Summary ---
Author Organization [employer] Address 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 Gender Identity Not on file Sexual Orientation Not on file documented as of this encounter Plan of Treatment Not on file documented as of this encounter Procedures Procedure Name Priority Date/Time Associated Diagnosis Comments CBC WITH DIFFERENTIAL Routine 09/29/2008 11:19 AM DYE HOUSE VAT WORKER HCG QUANTITATIVE, BLOOD Routine 09/29/2008 11:19 AM DYE HOUSE VAT WORKER documented in this encounter Results * (ABNORMAL) CBC WITH DIFFERENTIAL (09/29/2008 11:19 AM DYE HOUSE VAT WORKER) HEMATOCRIT 44.3(H) 35.5 - 44.0 % [facility] RDW-STDEV 41.9 37.1 - 48.7 fL [facility] RBC 5.22(H) 3.90 - 4.90 M/uL [facility] MCHC 34.5 31.5 - 35.5 % [facility] MCV 84.9 82.0 - 99.0 fL [facility] PLATELETS 370(H) 140 - 350 K/uL [facility] HEMOGLOBIN 15.3(H) 11.8 - 14.8 g/dL [facility] RDW 13.6 11.5 - 14.5 % [facility] WBC 9.1 4.0 - 9.8 K/uL [facility] MCH 29.3 27.2 - 32.6 pg [facility] MPV 9.5 9.3 - 12.4 fL [facility] BASOPHILS 0 0 - 2 % [facility] BASOPHILS ABSOLUTE 0.02 0.00 - 0.20 K/uL [facility] MONOCYTES 5 3 - 13 % [facility] MONOCYTE ABSOLUTE 0.48 0.10 - 1.30 K/uL [facility] NEUTROPHILS 57 45 - 70 % [facility] NEUTROPHIL ABSOLUTE 5.19 1.90 - 7.00 K/uL [facility] EOSINOPHILS 2 0 - 7 % [facility] EOSINOPHIL ABSOLUTE 0.16 0.00 - 0.70 K/uL [facility] LYMPHOCYTES 35 16 - 45 % [facility] LYMPHOCYTE ABSOLUTE 3.21 0.70 - 4.50 K/uL [facility] Blood specimen (specimen) 09/29/2008 11:19 AM DYE HOUSE VAT WORKER 09/29/2008 4:51 PM DYE HOUSE VAT WORKER us Brando Dupont Mai, MD HEMATOLOGY ORDERABLES Edited INTERFACE SYSTEM Refer to clinic/hospital department [facility] CLIA# [id number] [address] [place] [address] * HCG QUANTITATIVE, BLOOD (09/29/2008 11:19 AM DYE HOUSE VAT WORKER) HCG QUANT, BLOOD <5 0 - 5 mIU/mL [facility] Comment: Result of 5 [...] evidence. Blood specimen (specimen) 09/29/2008 11:19 AM DYE HOUSE VAT WORKER 09/29/2008 4:51 PM DYE HOUSE VAT WORKER Brando Dupont Mai, MD CHEMISTRY ORDERABLES Edited INTERFACE SYSTEM Refer to clinic/hospital department [facility] CLIA# [id number] [address] [place] [address] documented in this encounter Visit Diagnoses Not on filedocumented in this encounter Additional Health Concerns Infection Onset Date Last Indicated Resolved Time COVID-19 08/24/2020 08/24/2020 09/23/2020 1:16 AM DYE HOUSE VAT WORKER documented as of this encounter Care Teams Rotary Pump Operator Relationship Specialty Start Date End Date Meng King MD [address] [place] [address] PCP - General Family Practice 11/15/23 documented as of this encounter
--- OUTSIDE RECORDS SUMMARY | 2025-04-13 14:18 | XMS_ITS | Encounter Summary ---
Author Organization [employer] Address [address] [place] [address] Care Team Providers Care Power Originator Name Role Phone Meng King MD Primary Care Provider [phone] Encounter Details Date Type Department Care Team (Late st Contact Info) Description 03/13/2009 Emergency [facility] Er, Authorized P NO ADDRESS ON FILE Landon Yadav MD [facility] [place] [id number] Threatened , Antepartum; Tobacco Use Disorder Social History Tobacco Use Types Packs/Day Years Used Date Smoking Tobacco: Never Assessed Comments Unknown Sex and Gender Information Value Date Recorded Sex Assigned at Not on file Legal Sex Female 4:09 AM CARE ASST Gender Identity Not on file Sexual Orientation [...] PM CDT) HISTORY CHECK No Historical ABO/Rh [facility] SPECIMEN LIFE 3 days from drawdate [facility] ABO/RH TYPE B Positive [facility] Blood specimen (specimen) 03/13/2009 6:32 PM CDT Landon Yadav MD BLOOD BANK ORDERABLES Edited INTERFACE SYSTEM Refer to clinic/hospital department [facility] CLIA# [id number] [address] [facility] [place], [place] [address] * (ABNORMAL) CBC WITH DIFFERENTIAL (03/13/2009 6:30 PM CDT) PLATELETS 301 140 - 350 K/uL [facility] HEMOGLOBIN 15.7(H) 11.8 - 14.8 g/dL [facility] RDW 13.5 11.5 - 14.5 % [facility] WBC 11.9(H) 4.0 - 9.8 K/uL [facility] MCH 29.7 27.2 - 32.6 pg [facility] MPV 8.9(L) 9.3 - 12.4 fL [facility] HEMATOCRIT 44.6(H) 35.5 - 44.0 % [facility] RDW-STDEV 41.1 37.1 - 48.7 fL [facility] RBC 5.28(H) 3.90 - 4.90 M/uL [facility] MCHC 35.2 31.5 - 35.5 % [facility] MCV 84.5 82.0 - 99.0 fL [facility] EOSINOPHILS 1 0 - 7 % [facility] EOSINOPHIL ABSOLUTE 0.17 0.00 - 0.70 K/uL [facility] LYMPHOCYTES 31 16 - 45 % [facility] LYMPHOCYTE ABSOLUTE 3.69 0.70 - 4.50 K/uL [facility] BASOPHILS 0 0 - 2 % [facility] BASOPHILS ABSOLUTE 0.03 0.00 - 0.20 K/uL [facility] MONOCYTES 6 3 - 13 % [facility] MONOCYTE ABSOLUTE 0.66 0.10 - 1.30 K/uL [facility] NEUTROPHILS 62 45 - 70 % [facility] NEUTROPHIL ABSOLUTE 7.36(H) 1.90 - 7.00 K/uL [facility] Blood specimen (specimen) 03/13/2009 6:30 PM CDT 03/13/2009 6:40 PM CDT Landon Yadav MD HEMATOLOGY ORDERABLES Edited [facility] CLIA# [id number] [address] [place] [address] * (ABNORMAL) HCG QUANTITATIVE, BLOOD (03/13/2009 6:30 PM CDT) HCG QUANT, BLOOD 39(H) 0 - 5 mIU/mL [facility] Comment: Result of 5 - 25 [...] us Landon Yadav MD CHEMISTRY ORDERABLES Edited [facility] CLIA# [id number] [address] [facility] [place] [address] documented in this encounter Visit Diagnoses Diagnosis Threatened , antepartum Tobacco use disorder documented in this encounter Additional Health Concerns Infection Onset Date Last Indicated Resolved Time COVID-19 08/24/2020 08/24/2020 09/23/2020 1:16 AM CARE ASST documented as of this encounter Care Teams Power Originator Relationship Specialty Start Date End Date Meng Knig MD [address] [place] [address] PCP - General Family Practice 11/15/23 documented as of this encounter
--- OUTSIDE RECORDS SUMMARY | 2025-04-13 14:18 | XMS_ITS | Clinical Summary ---
Author Organization [facility] Address [address] [place] [address] Phone Care Team Providers Care Licensing Registration Examiner Name Role Phone Ira Metz APRN, [place] Primary Care Provider + Suly Alfonso MD Unavailable [phone] Allergies No known active allergies Medications [...] Type Department Care Team Description 04/01/2025 Telephone [facility] [address] [place] [address] Raffy Mcdaniel MD 03/24/2025 8:40 AM CDT Lab [facility] [address] [place] [address] Raffy Mcdaniel MD Iron deficiency Discharge Disposition: Discharged to home or Selfcare 03/24/2025 8:20 AM CDT Office Visit [facility] [address] [place] [address] Raffy Mcdaniel MD Iron deficiency (Primary Dx); Neck swelling; Family history of polycythemia; Arthralgia, unspecified joint Discharge Disposition: Discharged to home or Selfcare 03/24/2025 Travel 03/18/2025 1:08 PM CDT - 03/18/2025 11:59 PM CDT Hospital Encounter [facility] [address] [place] [address] Raffy Mcdaniel MD Discharge Disposition: Discharged to home or Selfcare 03/18/2025 Travel 02/05/2025 Telephone [facility] [address] [place] [address] Raffy Mcdaniel MD from Last 3 Months [...] on file Legal Sex Female 1:[address]GER FIRER Gender Identity Not on file Sexual Orientation [...] Description 04/22/2025 9:00 AM CDT [facility] [address] [place] [address] Raffy Mcdaniel MD [address] [place] [address] Discharge Disposition: Discharged to home or Selfcare 06/17/2025 9:[address]ASSENGER FIRER Lab [facility] [address] [place] [address] Raffy Mcdaniel MD [address] [place] [address] Discharge Disposition: Discharged to home or Selfcare 06/24/2025 10:[address] PASSENGER FIRER Office Visit [facility] [address] [place] [address] Raffy Mcdaniel MD [address] [place] [address] Discharge Disposition: Discharged to home or Selfcare [...] - 156 mcg/dL 03/24/2025 10:24 AM CDT [facility] TRANSFERRIN 338 180 - 382 mg/dL 03/24/2025 10:24 AM CDT [facility] TIBC, CALCULATED 423 265 - 497 mcg/dL 03/24/2025 10:24 AM CDT [facility] % SATURATION * 8(L) 15 - 62 % 03/24/2025 10:24 AM CDT [facility] Blood Venipuncture / Unknown 03/24/2025 9:20 AM CDT 03/24/2025 9:20 AM CDT us Raffy Mcdaniel MD CHEMISTRY ORDERABLES Fin al Result [facility] [address] [place] [address] * (ABNORMAL) CBC WITH AUTO DIFFERENTIAL (03/24/2025 9:20 AM CDT) WBC 6.58 4.00 - 12.00 10(3)/mcL 03/24/2025 9:55 AM CDT [facility] RBC 5.39(H) 3.80 - 5.30 10(6)/mcL 03/24/2025 9:55 AM CDT [facility] HEMOGLOBIN (HGB) 12.8 12.0 - 15.8 g/dL 03/24/2025 9:55 AM CDT [facility] HEMATOCRIT (HCT) 40.4 36.0 - 47.0 % 03/24/2025 9:55 AM CDT [facility] MCV 75.0(L) 82.0 - 96.0 fL 03/24/2025 9:55 AM CDT [facility] MCH 23.7(L) 26.0 - 34.0 pg 03/24/2025 9:55 AM CDT [facility] MCHC 31.7 31.0 - 36.0 g/dL 03/24/2025 9:55 AM CDT [facility] PLATELET COUNT 328 140 - 440 10(3)/mcL 03/24/2025 9:55 AM CDT [facility] RDW 15.4 11.8 - 15.5 % 03/24/2025 9:55 AM CDT [facility] MPV 8.8(L) 9.7 - 12.4 fL 03/24/2025 9:55 AM CDT [facility] NEUTROPHILS 66.2 47.0 - 73.0 % 03/24/2025 9:55 AM CDT [facility] LYMPHOCYTES 27.5 18.0 - 42.0 % 03/24/2025 9:55 AM CDT [facility] MONOCYTES 4.6 4.0 - 12.0 % 03/24/2025 9:55 AM CDT [facility] EOSINOPHILS 0.9 0.0 - 5.0 % 03/24/2025 9:55 AM CDT [facility] BASOPHILS 0.5 0.0 - 1.0 % 03/24/2025 9:55 AM CDT [facility] IMMATURE GRANULOCYTE 0.3 0.0 - 0.4 % 03/24/2025 9:55 AM CDT [facility] Comment:Immature Granulocyte s includes Metamyelocytes, Myelocytes, and Promyelocytes. ABSOLUTE NEUTROPHILS 4.36 1.60 - 7.70 10(3)/mcL 03/24/2025 9:55 AM CDT [facility] ABSOLUTE LYMPHOCYTES 1.81 1.30 - 3.20 10(3)/mcL 03/24/2025 9:55 AM CDT [facility] ABSOLUTE MONOCYTES 0.30 0.20 - 1.00 10(3)/mcL 03/24/2025 9:55 AM CDT [facility] ABSOLUTE EOSINOPHIL 0.06 0.00 - 0.40 10(3)/mcL 03/24/2025 9:55 AM CDT [facility] ABSOLUTE BASOPHILS 0.03 0.00 - 0.10 10(3)/mcL 03/24/2025 9:55 AM CDT [facility] ABSOLUTE IMMATURE GRANULOCYTE 0.02 0.00 - 0.03 10 (3) mcL. 03/24/2025 9:55 AM CDT [facility] NRBC PER 100 WBC 0 03/24/20 9:55 AM CDT [facility] Blood Venipuncture / Unknown 03/24/2025 9:20 AM CDT 03/24/2025 9:20 AM CDT Raffy Mcdaniel MD HEMATOLOGY ORDERABLES Fi nal Result Performing Organization Address City/[facility]/ZIP Co de Phone Number [facility] [address] [place] [address] * FERRITIN (03/24/2025 9:20 AM CDT) FERRITIN 20 5 - 204 ng/mL 03/24/2025 10:35 AM CDT [facility] Blood Venipuncture / Unknown 03/24/2025 9:20 AM CDT 03/24/2025 9:20 AM CDT Raffy Mcdaniel MD CHEMISTRY ORDERABLES Fin al Result Performing Organization Address City/[facility]/ZIP Co de Phone Number [facility] [address] [place] [address] * CT SOFT TISSUE NECK W CONTRAST [...] SPINE: Multilevel degenerative disc disease, up to [id number] at C6-C7. No aggressive bone lesion or acute fracture is seen grossly. LUNG APICES: Partially visualized small cyst in the left upper lobe, unchanged in its visualized portions.. OTHER: No other significant finding. THIS IS AN ELECTRONICALLY VERIFIED FINAL REPORT 03/18/2025 4:11 PM - Electronically signed by Hilton Levin M.D. MZ: LORI Report ID: [id number] Reading Location: [id number] Procedure Note Hilton Levin MD - 03/18/2025 [...] SPINE: Multilevel degenerative disc disease, up to [id number] at C6-C7. No aggressive bone lesion or acute fracture is seen grossly. LUNG APICES: Partially visualized small cyst in the left upper lobe, unchanged in its visualized portions.. OTHER: No other significant finding. THIS IS AN ELECTRONICALLY VERIFIED FINAL REPORT 03/18/2025 4:11 PM - Electronically signed by Hilton Levin M.D. MZ: LORI Report ID: [id number] Reading Location: [id number] IMPRESSION: No mass or adenopathy by size [...] 1.3 mg/dL 03/18/2025 2:38 PM CDT [facility] Blood 03/18/2025 1:45 PM CDT 03/18/2025 2:38 PM CDT us None Provider POINT OF CARE TESTING Final Resu lt [facility] [address] [place] [address] from Last 3 Months Insurance MEDICARE Care Teams Licensing Registration Examiner Relationship Specialty Start Date End Date Ira Metz APRN, [place] [address] [facility] [address] [place] [address] PCP - General Advanced Practice Nurse 08/14/24 Suly Alfonso MD [address] [place] [address] Obstetrics & Gynecology 11/05/24
--- OUTSIDE RECORDS SUMMARY | 2025-04-13 14:18 | XMS_ITS | Encounter Summary ---
Author Organization [email or web address] Address [address] [place] [address] Care Team Providers Care Intelligence Consultant Name Role Phone Meng King MD Primary Care Provider [phone] Encounter Details Date Type Department Care Team (Latest Contact Info) Description 09/19/2008 Outpatient Historical HIS [facility] Teja Bearden MD NO ADDRESS ON FILE Viral Infection; Tobacco Use Disorder; Encounter for Long-Term (Current) Use of Other Medications; Pure Hypercholesterolemia Social History Tobacco Use Types Packs/Day Years Used Date Smoking Tobacco: Never Assessed Comments Unknown Sex and Gender Information Value Date Recorded Sex Assigned at Not on file Legal Sex Female 4:09 AM COBOL PROGRAMMER Gender Identity Not on file Sexual Orientation Not on file documented as of this encounter Plan of Treatment Not on file documented as of this encounter Procedures Procedure Name Priority Date/Time Associated Diagnosis Comments BETA STREP ONLY CULTURE Routine 09/19/2008 2:51 PM COBOL PROGRAMMER documented in this encounter Results * BETA STREP ONLY CULTURE (09/19/2008 2:51 PM COBOL PROGRAMMER) PRELIMINARY REPORT Pending [facility] FINAL REPORT No Group A, C, or G beta Streptococcus isolated. [facility] Specimen from throat (specimen) 09/19/2008 2:51 PM COBOL PROGRAMMER 09/19/2008 7:48 PM COBOL PROGRAMMER us Teja Nina MD MICROBIOLOGY - GENERAL ORDER LAZ Final Result INTERFACE SYSTEM Refer to clinic/hospital department [facility] CLIA# [id number] [address] [place] [address] documented in this encounter Visit Diagnoses Diagnosis Unspecified viral infection, in conditions classified elsewhere and of unspecified site Tobacco use disorder Encounter for long-term (current) use of other medications Pure hypercholesterolemia documented in this encounter Additional Health Concerns Infection Onset Date Last Indicated Resolved Time COVID-19 08/24/2020 08/24/2020 09/23/2020 1:16 AM COBOL PROGRAMMER documented as of this encounter Care Teams Intelligence Consultant Relationship Specialty Start Date End Date Meng King MD [address] [place] [address] PCP - General Family Practice 11/15/23 documented as of this encounter
--- OUTSIDE RECORDS SUMMARY | 2025-04-13 14:18 | XMS_ITS | Encounter Summary ---
Author Organization [employer] Address [address] [place] [address] Care Team Providers Care Fagot Maker Name Role Phone Meng King MD Primary Care Provider [phone] Encounter Details Date Type Department Care Team (Latest Contact Info) Description 10/24/2008 Outpatient Historical HIS [facility] [place] [address] [place] [phone] Acute Upper Respiratory Infections of Unspecified Site; Bronchitis, not Specified as Acute or Chronic; Tobacco Use Disorder; Pure Hypercholesterolemia Social History Tobacco Use Types Packs/Day Years Used Date Smoking Tobacco: Never Assessed Comments Unknown Sex and Gender Information Value Date Recorded Sex Assigned at Not on file Legal Sex Female 4:09 AM NEPHROLOGY NURSE Gender Identity Not on file Sexual Orientation [...] Time COVID-19 08/24/2020 08/24/2020 09/23/2020 1:16 AM NEPHROLOGY NURSE documented as of this encounter Care Teams Fagot Maker Relationship Specialty Start Date End Date Meng King MD [address] [place] [address] PCP - General Family Practice 11/15/23 documented as of this encounter
--- OUTSIDE RECORDS SUMMARY | 2025-04-13 14:18 | XMS_ITS | Encounter Summary ---
Author Organization [employer] Address [address] [place] [address] Care Team Providers Care Furnace Mechanic Helper Name Role Phone Meng King MD Primary Care Provider [phone] Encounter Details Date Type Department Care Team (Late st Contact Info) Description 10/24/2004 Emergency [facility] Landon Yadav MD [address] [place] [id number] Er, Authorized P NO ADDRESS ON FILE LOWER LEG INJURY NOS (Primary Dx) Social History Tobacco Use Types Packs/Day Years Used Date Smoking Tobacco: Never Assessed Comments Unknown Sex and Gender Information Value Date Recorded Sex Assigned at Not on file Legal Sex Female 4:09 AM MANAGER SHOP Gender Identity Not on file Sexual Orientation Not on file documented as of this encounter Plan of Treatment Not on file documented as of this encounter Visit Diagnoses Diagnosis Injury, other and unspecified, knee, leg, ankle, and foot- Primary documented in this encounter Additional Health Concerns Infection Onset Date Last Indicated Resolved Time COVID-19 08/24/2020 08/24/2020 09/23/2020 1:16 AM MANAGER SHOP documented as of this encounter Care Teams Furnace Mechanic Helper Relationship Specialty Start Date End Date Meng King MD [facility] [place] [phone] PCP - General Family Practice 11/15/23 documented as of this encounter
--- OUTSIDE RECORDS SUMMARY | 2025-04-13 14:18 | XMS_ITS | Clinical Summary ---
Author Organization [facility] Address [address] [place] [address] Care Team Providers Care Planer Chain Offbearer Name Role Phone Meng King MD Primary Care Provider [phone] Allergies Active Allergy Reactions Criticality Noted Date [...] Date Type Department Care Team Description 04/01/2025 External Device Data [facility] ABSTRACTION Provider, Abstract 01/13/2025 External Device Data [facility] ABSTRACTION Provider, [...] Date Smoking Tobacco: Every Day Cigarettes 1 13.7 Started: 08/13/2021 Smokeless Tobacco: Never Alcohol Use Standard Drinks/Week Comments No 0 (1 standard drink = 0.6 oz pur e alcohol) Comments No Sex and Gender Information Value Date Recorded Sex Assigned at Not on file Legal Sex Female 4: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 Gender Identity Not on file Sexual Orientation [...] Health Maintenance Due Date Last Done Comments HEPATITIS B VACCINES (1 of 3 - 19+ 3-dose series) 2004 HPV VACCINES (1 - 3-dose SCD M series) 2012 DTAP/TDAP/TD VACCINES (2 - T d or Tdap) 11/25/2020 11/25/2010 INFLUENZA VACCINE (#1) 2025 7, 06/11/2015, 07/13/2010 PAP SMEAR 09/08/2027 09/08/2024, 08/14, 07/11/2022, Additional history exists CERVICAL CANCER SCREENING 09/08/2029 HPV/Cotest (21-29) 09/08/2029 09/08/2024, 07/11/2022 HPV/Cotest (30-65) 09/08/2029 09/08/2024, 07/11/2022 Insurance MEDICARE PART A AND B [place]ICAID [place] RX A[employer] Medicare Part D RX INFOCROSSING Medicaid RX AETNA Medicare Part D MEDICARE MEDICARE PART A AND B MEDICARE PART A AND B Advance Directives For more information, please contact: [phone] * Full Code (Latest Code Status on [...] 11:37 AM 09/13/2016 5:31 PM Care Teams Planer Chain Offbearer Relationship Specialty Start Date End Date Meng King MD [address] [place] [address] PCP - General Family Practice 11/15/23
--- OUTSIDE RECORDS SUMMARY | 2025-04-13 14:19 | XMS_ITS | Encounter Summary ---
Author Organization [facility] Address [address] [place] [address] Care Team Providers Care Drafter Tool Design Name Role Phone Dionicio Colindres Primary Care Provider Encounter Details Date Type Department Care Team (Late st Contact Info) Description 11/15/2022 Lab Requisition [facility] [address] [place] [address] [place] [address] [place] [id number] Social History Tobacco Use Types Packs/Day Years Used Date Smoking Tobacco: Former Cigarettes 1 4 1 08/13/2009 - 06/13/2014 Smokeless Tobacco: Never Alcohol Use Standard Drinks/Week Comments Yes 0 (1 standard drink = 0.6 oz pur e alcohol) occasionally Comments No Sex and Gender Information Value Date Recorded Sex Assigned at Not on file Legal Sex Female 5:59 AM HAND PASTER Gender Identity Not on file Sexual Orientation [...] AM CDT) Case Report Dermatopathology Report Case: [id number] Authorizing Provider: Matthieu Helms MD Collected: 11/14/2022 12:00 AM Ordering Location: [facility] Lab Received: 11/15/2022 09:24 [...] characteristic determined by the Dermatopathology Laboratory at [facility], directed by Dr. Karley Astudillo. These tests need not be, and therefore are not, approved by the [place] Food and Drug Administration. The tests are used for clinical purposes. Billing Codes Specimen Charges Stain Charges 51648 1 3 12:37 PM CDT DERMATOPATHOLOGY LABORATORY Embedded Images 3 12:37 PM CDT DERMATOPATHOLOGY LABORATORY Pathology/Cytolog y TISSUE SPECIMEN FROM SKIN / Unknown 11/14/2022 11/15/2022 9:24 AM CDT Matthieu Helms MD LAB - PATHOLOGY/CYTOLOGY O RDERABLES Final Result DERMATOPATHOLOGY LABORATORY [facility] - Department of Dermatology [facility] Medicine [address] [place] [address], [address] [phone] documented in this encounter Visit Diagnoses Not on filedocumented in this encounter Additional Health Concerns Infection Onset Date Last Indicated Resolved Time MRSA 09/24/2020 09/24/2020 documented as of this encounter Care Teams Drafter Tool Design Relationship Specialty Start Date End Date Dionicio Colindres DO [address] [place] [address] PCP - General Family Medicine 01/03/18 documented as of this encounter
--- OUTSIDE RECORDS SUMMARY | 2025-04-13 14:19 | XMS_ITS | Clinical Summary ---
Author Organization [facility] Address [address] [place] [address] Care Team Providers Care Bobbin Handler Name Role Phone Bernadine Dionicio Arnel Primary Care Provider [phone] Source Comments [facility],non-owned Affiliates and Associated Physician Practices is amultiple site organization consisting of ambulatory clinics and hospital sitesin [place], [place], [place] and [place]. This disclosure is being madepursuant to the Care Everywhere program and may not contain all information available regarding this patient. Last updated 18.[facility] Allergies Active Allergy Reactions Criticality Noted Date [...] by mouth once daily Active Prenat w/o S-ID-Ozajpaw-F A-DHA (PNV-DHA PO) Take by mouth once [...] on file Legal Sex Female 5:59 AM SHINGLE CARRIER Gender Identity Not on file Sexual Orientation Not on file Last Filed Vital Signs Vital Sign Reading Time Taken Comments Blood Pressure 135/83 03/27/2023 3:17 PM CDT Pulse 69 03/27/2023 3:17 PM CDT Temperature 36.5 C (97.7 F) 03/27/2023 3:17 PM CDT Respiratory Rate 18 08/25/2022 7:43 AM SHINGLE CARRIER Oxygen Saturation 99% 03/27/2023 3:17 PM CDT [...] ve Non-react shanti 04/06/2023 8:08 AM CDT [facility] Comment:No Laboratory eviden ce of HIV infection. Blood BLOOD SPECIMEN / Unknown Lab Venipuncture / Unknown 04/06/2023 6:50 AM CDT 04/06/2023 7:01 AM CDT us Carey Partida MD LAB - CHEMISTRY ORDERABLES Lizabeth l Result [facility] [address] [place] [id number] [phone] from Last 3 Months or Most Recently [...] Address: [address] [place] [address] Payer ID:Not on file Group ID:Not on file Type:Self Pay Address: [place], [place] MEDICARE SELF PAY NO INSURANCE Member Subscriber Plan / Payer (Ef fective for All Dates) Name:Vera Parker Member ID:Not on file Relation to Subscriber:Not on file Name:VERA PARKER Subscriber ID:Not on file Address: [address] [place] [address] Payer ID:Not on file Group ID:Not on file Type:Self Pay Address: [place], [place] MEDICARE SELF PAY NO INSURANCE Member Subscriber Plan / Payer (Ef fective for All Dates) Name:Vera Parker Member ID:Not on file Relation to Subscriber:Not on file Name:VERA PARKER Subscriber ID:Not on file Address: [address] [place] [address] Payer ID:Not on file Group ID:Not on file Type:Self Pay Address: [place], [place] * Guarantor: VERA PARKER Account Type Relation to Patient Date of Phone Billing Address Personal/Family [address] [place] [address] MEDICARE SELF PAY NO INSURANCE Member Subscriber Plan / Payer (Ef fective for All Dates) Name:Vera Parker Member ID:Not on file Relation to Subscriber:Not on file Name:VERA PARKER Subscriber ID:Not on file Address: [address] [place] [address] Payer ID:Not on file Group ID:Not on file Type:Self Pay Address: [place], [place] * Guarantor: VERA PARKER Account Type Relation to Patient Date of Phone Billing Address Personal/Family [address] [place] [address] MEDICARE Member Subscriber Plan / Payer (Ef fective for All Dates) Name:Vera Parker Member ID:[id number] Relation to Subscriber:Self Name:Winifred Vera Najera Subscriber ID:[id number] Payer ID:Not on file Group ID:Not on file Type:Medicare Address: [place] [id number] SELF PAY NO INSURANCE Member Subscriber Plan / Payer (Ef fective for All Dates) Name:Vera Parker Member ID:Not on file Relation to Subscriber:Not on file Name:VERA PARKER Subscriber ID:Not on file Address: [address] [place] [address] Payer ID:Not on file Group ID:Not on file Type:Self Pay Address: [place], [place] * Guarantor: VERA PARKER Account Type Relation to Patient Date of Phone Billing Address Personal/Family [address] [place] [address] MEDICARE SELF PAY NO INSURANCE Member Subscriber Plan / Payer (Ef fective for All Dates) Name:Vera Parker M Member ID:Not on file Relation to Subscriber:Not on file Name:VERA PARKER Subscriber ID:Not on file Address: [address] [place] [address] Payer ID:Not on file Group ID:Not on file Type:Self Pay Address: [place], [place] Advance Directives * Full Code (Latest Code Status on File) Date Activated Date Inactivated Comments 08/22/2010 10:42 AM 08/22/2010 11:57 PM * Full Code Date Activated Date Inactivated Comments 02/14/2010 1:50 PM 02/17/2010 5:57 AM * Full Code Date Activated Date Inactivated Comments 02/11/2010 8:28 PM 02/14/2010 1:50 PM Care Teams Bobbin Handler Relationship Specialty Start Date End Date Dionicio Colindres DO [address] [place] [address] PCP - General Family Medicine 01/03/18
[2025-04-13 14:30] LABS: Hematocrit 41.4 % (37.0-47.0); Hemoglobin 12.9 g/dL (12.0-15.0); Immature Granulocyte Percent A 0.1 % (0-0.5); Lymphocytes Absolute Auto 1.89 K/mm3 (0.9-3.2); Mean Corpuscular HGB Conc 31.2 g/dl (32-36); Mean Corpuscular Hemoglobin 23.5 pg (26-34); Mean Corpuscular Volume 75.4 fl (80-100); Nucleated Red Blood Cells Absolute Auto 0.000 K/mm3 (0.0-0.012); Nucleated Red Blood Cells Perc 0.0 % (0.0-0.2); Platelet Count Result 287 k/mm3 (150-375); Red Blood Count 5.49 M/mm3 (4.2-5.4); White Blood Count 7.0 K/mm3 (4.5-10.0)
[2025-04-13] MEDS: ASPIRIN 81 MG CHEWABLE TABLET 324 MG PO (14:39)
[2025-04-13 14:41] LABS: Alanine Aminotransferase 22 U/L (6-35); Albumin Level 4.6 g/dL (3.5-5.1); Alkaline Phosphatase 120 U/L (38-126); Anion Gap 11 mmol/L (4-12); Aspartate Amino Transferase 32 U/L (14-36); Bilirubin,Total 0.2 mg/dL (0.2-1.3); Blood Urea Nitrogen 18 mg/dL (7-17); Calcium 9.4 mg/dL (8.4-10.2); Carbon Dioxide 23 mmol/L (22-30); Chloride 104 mmol/L (98-107); Estimated CRCL calculation 112 ml/min; Estimated Glomerular Filt Rate > 60; Glucose 123 mg/dL (65-110); Lipase 177 U/L (23-300); Potassium 3.7 mmol/L (3.4-5.0); Sodium 138 mmol/L (137-145); Total Protein 8.0 g/dL (6.3-8.2)
[2025-04-13 14:42] LABS: INR 1.0; Prothrombin Time 12.9 Seconds (11.1-14.7)
[2025-04-13 14:43] LABS: Partial Thromboplastin Time 30.6 Seconds (22.3-36.8)
[2025-04-13 14:53] LABS: NT Pro B Type Natriuretic Pept 136 pg/mL (19.9-100); Troponin I < 0.012 ng/mL (0.000-0.034)
[2025-04-13 14:58] LABS: Cannabinoid Screen Urine Negative (Negative)
[2025-04-13 15:10] LABS: Thyroid Stimulating Hormone Reflex 2.260 uIU/mL (0.465-4.68)
--- NOTE | 2025-04-13 16:44 | ECG_ITS ---
Test Date: 2025-04-13 17:53:34 Measurements Intervals [place] Rate: 73 P: 66 UT: 130 QRS: 52 QRSD: 86 T: 24 QT: 354 QTc: 393 Interpretive Statements SINUS RHYTHM Compared to ECG 04/13/2025 14:02:12 No significant changes Electronically Signed On 04-14-2025 06:39:54 CDT by Wyatt Iglesias D.O
[2025-04-13 18:14] LABS: Troponin I < 0.012 ng/mL (0.000-0.034)
== END 2025-04-13 18:33 | disposition home or self-care (01) ==
PROVIDERS: Emergency Medicine; Emergency Provider Registered Nurse; PCP Nurse Practitioner Family
DX: R07.89 Other chest pain (principal); R00.2 Palpitations; D64.9 Anemia, unspecified; M19.90 Unspecified osteoarthritis, unspecified site
CPT/HCPCS: 36415; 71046; 71275; 80053; 80307; 83690; 83880; 84443; 84484; 85025; 85380; 85610; 85730; 93005; 99284; A9270; Q9967